=== PATIENT | female | born 1960 | race Caucasian/White ===

== ENCOUNTER 2021-12-02 17:30 | Inpatient (IN) | payer OTHER, SELFPAY ==
--- NOTE | ~2021-12-02 | CT_ITS ---
EXAMINATION: CT HEAD WITHOUT CONTRAST CLINICAL INFORMATION: Acute mental status change COMPARISON: None. TECHNIQUE: Contiguous axial imaging was performed from the skull base to vertex without intravenous contrast. This CT examination was performed using dose optimization techniques as appropriate, variously including the following: * Automated exposure control * Adjustment of mA and/or kV according to patient size (this includes techniques or standardized protocols for targeted exams where dose is matched to indication/reason for exam; i.e. extremities or head) Use of iterative reconstruction technique DLP: 616 mGy-cm. FINDINGS: There is no evidence of acute intracranial hemorrhage or territorial infarction. No abnormal mass effect or midline shift is seen. Bond to white matter differentiation is well preserved. No extra-axial fluid collections are identified. No hydrocephalus. Proportional prominence of the ventricles and sulcal spaces is consistent with mild volume loss. Patchy periventricular and deep white matter hypoattenuation is consistent with mild small vessel ischemic changes. The osseous structures and soft tissues are normal. The mastoid air cells and visualized portions of the paranasal sinuses are well aerated. CT/CT head/brain wo con IMPRESSION: No acute intracranial pathology. Mild volume loss with small vessel ischemic change.
[2021-12-02 18:45] VITALS: BP 158/85; PULSE 94; RESP 16; TEMP 36.6; O2SAT 99; BMI 31.1
[2021-12-02 19:45] LABS: MANUAL DIFF FLAG NO
[2021-12-02 19:47] LABS: Basophils Percent Auto 0.2 % (0-2); Eosinophils Absolute Auto 0.1 X10*3/uL (0.0-0.4); Eosinophils Percent Auto 1.2 % (0-4); Hematocrit 38.6 % (37.0-47.0); Hemoglobin 12.5 g/dl (12.0-16.0); Imm Gran Abs Auto 0.04 X10*3/uL (0.00-0.03); Imm Gran Pct Auto 0.4 % (0.0-0.4); Lymphocytes Absolute Auto 3.5 X10*3/uL (1.2-4.9); Lymphocytes Percent Auto 36.3 % (20-40); Mean Corpuscular HGB Conc 32.4 g/dl (31.0-35.0); Mean Corpuscular Hemoglobin 27.2 pg (27.0-33.0); Mean Corpuscular Volume 83.9 fL (80.0-98.0); Mean Platelet Volume 9.9 fL (9.4-12.3); Monocytes Absolute Auto 0.7 X10*3/uL (0.1-1.2); Monocytes Percent Auto 7.4 % (2-11); Neutrophils Absolute Auto 5.2 x10*3/uL (2.0-8.3); Neutrophils Percent Auto 54.5 % (45-73); Platelet Count 321 X10*3/uL (160-400); Red Cell Distribution Width 15.5 % (11.0-16.0); White Blood Count 9.5 X10*3/uL (4.8-10.8)
[2021-12-02 19:48] LABS: Appearance Urine CLEAR; Color Urine STRAW; Glucose Urine UA >=1000 MG/DL (NEG); Leukocyte Esterase Urine NEG (NEG); Nitrite Urine NEG (NEG); Specific Gravity - Urine <= 1.005 (1.005-1.025); Urine Blood NEG (NEG); Urine Ketones NEG (NEG); Urine Protein NEG (NEG-TRACE)
[2021-12-02 20:01] LABS: RBC Urine 0 /HPF (0); Squamous Epithelial Cell Urine TRACE /LPF
[2021-12-02 20:08] LABS: Anion Gap 15 (12-20); Blood Urea Nitrogen 9 mg/dL (9-16); Calcium 9.1 mg/dL (8.4-10.2); Carbon Dioxide 25 mmol/L (22-29); Chloride 92 mmol/L (96-108); Creatinine Clr Calc Pharmacy 71.1; Estimated Glomerular Filt Rate > 60; Glucose Random 321 mg/dL (60-115); Potassium 4.3 mmol/L (3.3-5.1); Sodium 128 mmol/L (135-145)
--- NOTE | 2021-12-02 21:39 | ECG_ITS ---
Test Reason : ALTERED MENTAL STATUS Blood Pressure : / mmHG Vent. Rate : 085 BPM Atrial Rate : 085 BPM P-R Int : 148 ms QRS Dur : 088 ms QT Int : 386 ms P-R-T Axes : 041 -01 041 degrees QTc Int : 459 ms Normal sinus rhythm Minimal voltage criteria for LVH, may be normal variant ( R in aVL ) Septal infarct , age undetermined Abnormal ECG No previous ECGs available Referred By: Donna Miller Electronically Signed By:ERIC CARDOZO
--- NOTE | 2021-12-02 21:40 | ED_ITS ---
HPI - Altered Mental Status General Chief Complaint: Altered Mental Status <Donna Miller MD - Last Filed: 12/03/21 03:52> Stated Complaint: High blood pressure/AMS <Donna Miller MD - Last Filed: 12/03/21 03:52> Time Seen by Provider: 12/02/21 21:37 <Donna Miller MD - Last Filed: 12/03/21 03:52> Source: patient, family (Niece) and translator interpreter <Donna Miller MD - Last Filed: 12/03/21 03:52> Mode of arrival: ambulatory <Donna Miller MD - Last Filed: 12/03/21 03:52> Limitations: no limitations <Donna Miller MD - Last Filed: 12/03/21 03:52> History of Present Illness HPI narrative: 61 years old female came in with her family for evaluation of a change me ntal status. 61-year-old female with history of hypertension family stated that patient got high blood pressure at home causing patient not to sleep at night and having insomnia, patient also according to the family has been having delusional thoughts thinking that her and her son were murdered (just lost her 6 months ago required psych hospitalization in [place]) reportedly by the family patient been having visual hallucination. Patient otherwise declined headache, no neck pain, no blurry vision, no photophobia, no chest pain, no shortness of breath, no abdominal pain, normal bowel movement, normal urination without symptoms of infection. <Donna Miller MD - Last Filed: 12/03/21 03:52> Related Data Home Medications: Home Medications Medication Instructions Recorded Confirmed Gvoke HypoPen 2-Pack 12/03/21 True Metrix Glucose Meter 12/03/21 12/03/21 True Metrix Pro Test Strip 12/03/21 12/03/21 acyclovir 400 mg tablet 400 mg TID 12/03/21 12/03/21 amlodipine 5 mg tablet 5 mg DAILY 12/03/21 12/03/21 aripiprazole 15 mg tablet 15 mg PO BEDTIME 12/03/21 12/03/21 atorvastatin 40 mg tablet 40 mg PO BEDTIME 12/03/21 12/03/21 buspirone 10 mg tablet 15 mg PO BID 12/03/21 12/03/21 divalproex 500 mg tablet,delayed 1,000 mg PO BEDTIME 12/03/21 12/03/21 release insulin glargine 100 unit/mL (3 48 unit SUBCUT DAILY 12/03/21 12/03/21 mL) subcutaneous pen (Lantus Solostar U-100 Insulin) lancets 30 gauge (TRUEplus Lancets) 12/03/21 12/03/21 lisinopril 20 mg tablet 20 mg PO DAILY 12/03/21 12/03/21 omeprazole 20 mg capsule,delayed 20 mg PO BID 12/03/21 12/03/21 release pen needle, diabetic 31 gauge x 12/03/21 12/03/21 5/16 (BD Ultra-Fine Short Pen Needle) trazodone 50 mg tablet 50 mg PO BEDTIME 12/03/21 12/03/21 <Donna Miller MD - Last Filed: 12/03/21 03:52> Allergies/Adverse Reactions: Allergies Allergy/AdvReac Type Severity Reaction Status Date / Time Penicillins Allergy Unknown Verified 12/02/21 19:30 <Donna Miller MD - Last Filed: 12/03/21 03:52> Review of Systems Review of Systems: All other systems are reviewed and are negative Constitutional: Reports as per HPI and Reports no additional constitutional complaints Eyes: Reports as per HPI and Reports no additional eye complaints Reports system reviewed and no additional complaints, except as documented Cardiovascular: Reports as per HPI and Reports no additional cardiovascular complaints Respiratory: Reports as per HPI and Reports no additional respiratory complaints Gastrointestinal: Reports as per HPI and Reports no additional gastrointestinal complaints Genitourinary: Reports no additional female genitourinary complaints Musculoskeletal: Reports no additional musculoskeletal complaints Skin/Breast: Reports system reviewed and no additional complaints, except as docu Psychiatric: Reports no additional psychiatric complaints Endocrine: Reports no additional endocrine complaints Hematologic/Lymphatic: Reports no additional hematologic/lymphatic complaints Allergic/Immunologic: Reports no additional allergic/immunologic complaints Reports system reviewed and no additional complaints, except as documented and Reports Abnormal speech present <Donna Miller MD - Last Filed: 12/03/21 03:52> [facility] Past Medical History Medical History: Medical History Depression Diabetes GERD (gastroesophageal reflux disease) HTN (hypertension) Hyperlipemia <Donna Miller MD - Last Filed: 12/03/21 03:52> Social History Social History: Social History Advance Directives: No Advance Directives Information Provided: No <Donna Miller MD - Last Filed: 12/03/21 03:52> Physical Exam ED Vital Signs: Vital Signs - 24 hr 12/02/21 18:45 12/03/21 00:16 12/03/21 07:34 Temperature 98 F 97.8 F Pulse Rate 94 81 87 Respiratory Rate 16 14 14 Blood Pressure 158/85 H 150/74 H 164/85 H Pulse Oximetry 99 98 100 12/03/21 12:45 12/03/21 14:30 Temperature 98.3 F 98.3 F Pulse Rate 83 88 Respiratory Rate 18 14 Blood Pressure 142/79 H 155/73 H Pulse Oximetry 96 97 BMI result Body Mass Index 31.1 Vital signs have been reviewed as appeared to be correct. Blood pressure elevated. Heart rate normal. Respiration rate normal. Temperature normal. Oxygen saturation normal. <Donna Miller MD - Last Filed: 12/03/21 03:52> Vital Signs - 24 hr 12/02/21 18:45 12/03/21 00:16 12/03/21 07:34 Temperature 98 F 97.8 F Pulse Rate 94 81 87 Respiratory Rate 16 14 14 Blood Pressure 158/85 H 150/74 H 164/85 H Pulse Oximetry 99 98 100 12/03/21 12:45 12/03/21 14:30 Temperature 98.3 F 98.3 F Pulse Rate 83 88 Respiratory Rate 18 14 Blood Pressure 142/79 H 155/73 H Pulse Oximetry 96 97 BMI result Body Mass Index 31.1 <Jessica Bhandari DO - Last Filed: 12/03/21 08:34> Vital Signs - 24 hr 12/02/21 18:45 12/03/21 00:16 12/03/21 07:34 Temperature 98 F 97.8 F Pulse Rate 94 81 87 Respiratory Rate 16 14 14 Blood Pressure 158/85 H 150/74 H 164/85 H Pulse Oximetry 99 98 100 12/03/21 12:45 12/03/21 14:30 Temperature 98.3 F 98.3 F Pulse Rate 83 88 Respiratory Rate 18 14 Blood Pressure 142/79 H 155/73 H Pulse Oximetry 96 97 BMI result Body Mass Index 31.1 <SUZE Yanez - Last Filed: 12/03/21 16:25> Appearance: Alert. Oriented X3. No acute distress. Head: Normal external exam. Normocephalic. Atraumatic. No Mayer signs noted. No raccoon eyes noted Eyes: PERRLA. EOMI. Conjunctiva and sclera normal. Eyelids normal. ENT: TM's Normal. Pharynx normal. Uvula midline. Moist mucous membranes. No trismus noted. No drooling noted. No muffled voice noted. Neck: Normal inspection. Neck supple. FROM. No adenopathy. Thyroid Normal. No meningeal signs. No neck mass noted. CVS: Normal heart rate and rhythm. Heart sound normal. No murmurs noted. Pulses normal throughout. Respiratory: No respiratory distress. Painless inspiration. Breath sounds normal. No wheezes/rales/rhonchi noted. Chest nontender. No accessory muscle usage noted or decreased air movement noted. Abdomen: Soft and nontender. Bowel sounds normal in all 4 quadrants. No distention noted. No organomegaly noted. No visible injury noted. Back: No CVA tenderness. Full range of motion noted. Skin: Skin warm and dry. Normal skin color. Normal skin turgor. No rashes/lesions/lacerations noted. Extremities: No lower extremity edema. Extremities exhibit normal range of motion. Extremities nontender. Neuro: Oriented X 3. Cranial nerve exam: II-XII are grossly intact No motor deficit. No sensory deficit. Reflexes normal. <Donna Miller MD - Last Filed: 12/03/21 03:52> Course Course Course Narrative: Assessment and plan. 61-year-old female brought in by her family for insomnia, elevated blood pressur e, and becoming delusional with visual/auditory hallucination, patient initially found to be hyponatremic which improved after a L of fluids, labs are unremarkable. Blood pressure is 150/[address] is unremarkable. Will get [facility] consultation for further evaluation. <Donna Miller MD - Last Filed: 12/03/21 03:52> Reevaluation(s) Reevaluation #1: Physician observation started at 03:00 . Patient placed in physician observation because the patient needed more time for BHN evaluation and the need for placement patient's vital sign were stable, patient is alert and oriented , neuro exam unchanged, unremarkable rest of physical exam. <Donna Miller MD - Last Filed: 12/03/21 03:52> Physician observation started at 03:00 . Patient placed in physician observation because the patient needed more time for BHN evaluation and the need for placement patient's vital sign were stable, patient is alert and oriented , neuro exam unchanged, unremarkable rest of physical exam. addendum 833am: Physician observation continued. previously medically cleared VS stable. no acute events reported. pending BHN evaluation. Patient resting comfortably, NAD, lungs clear, CV RRR, Abd nontender, Neuro intact. <Jessica Bhandari DO - Last Filed: 12/03/21 08:34> Time: 03:00 <Donna Miller MD - Last Filed: 12/03/21 03:52> Reevaluation #2: Addendum: 1624--patient was evaluated by CARE team is now an inpatient bed search <SUZE Yanez - Last Filed: 12/03/21 16:25> Time: 16:24 <SUZE Yanez - Last Filed: 12/03/21 16:25> MDM - Altered Mental Status Lab Data Attestation: I reviewed the patient's lab results. <Donna Miller MD - Last Filed: 12/03/21 03:52> Result diagrams: : 12/02/21 19:35 12/03/21 00:31 <Donna Miller MD - Last Filed: 12/03/21 03:52> Labs: Lab Results 12/02/21 12/02/21 12/02/21 Range/Units 19:35 19:35 19:35 WBC 9.5 (4.8-10.8) X10*3/uL RBC 4.60 (4.20-5.50) X10*6/uL Hgb 12.5 (12.0-16.0) g/dl Hct 38.6 (37.0-47.0) % MCV 83.9 (80.0-98.0) fL MCH 27.2 (27.0-33.0) pg MCHC 32.4 (31.0-35.0) g/dl RDW 15.5 (11.0-16.0) % Plt Count 321 (160-400) X10*3/uL MPV 9.9 (9.4-12.3) fL Immature Gran % (Auto) 0.4 (0.0-0.4) % Neut % (Auto) 54.5 (45-73) % Lymph % (Auto) 36.3 (20-40) % [place] % (Auto) 7.4 (2-11) % Eos % (Auto) 1.2 (0-4) % Baso % (Auto) 0.2 (0-2) % Lymph # (Auto) 3.5 (1.2-4.9) X10*3/uL [place] # (Auto) 0.7 (0.1-1.2) X10*3/uL Eos # (Auto) 0.1 (0.0-0.4) X10*3/uL Baso # (Auto) 0.0 (0.0-0.2) X10*3/uL Abs Immat Gran (auto) 0.04 H (0.00-0.03) X10*3/uL Absolute Neuts (auto) 5.2 (2.0-8.3) x10*3/uL Absolute Nucleated RBC 0.000 (0.0-0.012) X10*3/uL Nucleated RBC % (auto) 0.0 (0.0-0.2) /100WBC Sodium 128 L (135-145) mmol/L Potassium 4.3 (3.3-5.1) mmol/L Chloride 92 L (96-108) mmol/L Carbon Dioxide 25 (22-29) mmol/L Anion Gap 15 (12-20) BUN 9 (9-16) mg/dL Creatinine 0.85 (0.5-1.4) mg/dL Estim Creat Clear Calc 71.1 Estimated GFR > 60 POC Glucose (60-115) mg/dL Random Glucose 321 H (60-115) mg/dL Calcium 9.1 (8.4-10.2) mg/dL Total Bilirubin 0.3 (0.0-1.0) mg/dL Direct Bilirubin 0.2 (0.0-0.5) mg/dL AST 7 (5-31) U/L ALT 8 (0-31) U/L Alkaline Phosphatase 84 (39-117) U/L Total Protein 6.8 (6.5-8.0) g/dL Albumin 4.0 (3.5-5.0) g/dL Lipase 33 (8-78) U/L Urine Color STRAW Urine Appearance CLEAR Urine pH 6.0 (5.0-8.0) Ur Specific [place] <= 1.005 (1.005-1.025) Urine Protein NEG (NEG-TRACE) MG/DL Urine Glucose (UA) >=1000 H (NEG) MG/DL Urine Ketones NEG (NEG) MG/DL Urine Blood NEG (NEG) Urine Nitrite NEG (NEG) Ur Leukocyte Esterase NEG (NEG) Urine RBC 0 (0) /HPF Urine WBC 1-4 (0-4) /HPF Ur Squamous Epith Cells TRACE /LPF Urine Bacteria NONE /LPF Ur Random Sodium mmol/L Ur Random Potassium mmol/L Ur Random Chloride mmol/L 12/03/21 12/03/21 12/03/21 Range/Units 00:31 01:02 01:02 WBC (4.8-10.8) X10*3/uL RBC (4.20-5.50) X10*6/uL Hgb (12.0-16.0) g/dl Hct (37.0-47.0) % MCV (80.0-98.0) fL MCH (27.0-33.0) pg MCHC (31.0-35.0) g/dl RDW (11.0-16.0) % Plt Count (160-400) X10*3/uL MPV (9.4-12.3) fL Immature Gran % (Auto) (0.0-0.4) % Neut % (Auto) (45-73) % Lymph % (Auto) (20-40) % [place] % (Auto) (2-11) % Eos % (Auto) (0-4) % Baso % (Auto) (0-2) % Lymph # (Auto) (1.2-4.9) X10*3/uL [place] # (Auto) (0.1-1.2) X10*3/uL Eos # (Auto) (0.0-0.4) X10*3/uL Baso # (Auto) (0.0-0.2) X10*3/uL Abs Immat Gran (auto) (0.00-0.03) X10*3/uL Absolute Neuts (auto) (2.0-8.3) x10*3/uL Absolute Nucleated RBC (0.0-0.012) X10*3/uL Nucleated RBC % (auto) (0.0-0.2) /100WBC Sodium 131 L (135-145) mmol/L Potassium 4.1 (3.3-5.1) mmol/L Chloride 94 L (96-108) mmol/L Carbon Dioxide 29 (22-29) mmol/L Anion Gap 12 (12-20) BUN 9 (9-16) mg/dL Creatinine 0.74 (0.5-1.4) mg/dL Estim Creat Clear Calc 81.8 Estimated GFR > 60 POC Glucose (60-115) mg/dL Random Glucose 147 H (60-115) mg/dL Calcium 9.1 (8.4-10.2) mg/dL Total Bilirubin (0.0-1.0) mg/dL Direct Bilirubin (0.0-0.5) mg/dL AST (5-31) U/L ALT (0-31) U/L Alkaline Phosphatase (39-117) U/L Total Protein (6.5-8.0) g/dL Albumin (3.5-5.0) g/dL Lipase (8-78) U/L Urine Color YELLOW Urine Appearance CLEAR Urine pH 7.0 (5.0-8.0) Ur Specific [place] <= 1.005 (1.005-1.025) Urine Protein NEG (NEG-TRACE) MG/DL Urine Glucose (UA) 100 H (NEG) MG/DL Urine Ketones NEG (NEG) MG/DL Urine Blood NEG (NEG) Urine Nitrite NEG (NEG) Ur Leukocyte Esterase NEG (NEG) Urine RBC (0) /HPF Urine WBC (0-4) /HPF Ur Squamous Epith Cells /LPF Urine Bacteria /LPF Ur Random Sodium < 20.0 mmol/L Ur Random Potassium 7.0 mmol/L Ur Random Chloride < 20.0 mmol/L 12/03/21 Range/Units 14:25 WBC (4.8-10.8) X10*3/uL RBC (4.20-5.50) X10*6/uL Hgb (12.0-16.0) g/dl Hct (37.0-47.0) % MCV (80.0-98.0) fL MCH (27.0-33.0) pg MCHC (31.0-35.0) g/dl RDW (11.0-16.0) % Plt Count (160-400) X10*3/uL MPV (9.4-12.3) fL Immature Gran % (Auto) (0.0-0.4) % Neut % (Auto) (45-73) % Lymph % (Auto) (20-40) % [place] % (Auto) (2-11) % Eos % (Auto) (0-4) % Baso % (Auto) (0-2) % Lymph # (Auto) (1.2-4.9) X10*3/uL [place] # (Auto) (0.1-1.2) X10*3/uL Eos # (Auto) (0.0-0.4) X10*3/uL Baso # (Auto) (0.0-0.2) X10*3/uL Abs Immat Gran (auto) (0.00-0.03) X10*3/uL Absolute Neuts (auto) (2.0-8.3) x10*3/uL Absolute Nucleated RBC (0.0-0.012) X10*3/uL Nucleated RBC % (auto) (0.0-0.2) /100WBC Sodium (135-145) mmol/L Potassium (3.3-5.1) mmol/L Chloride (96-108) mmol/L Carbon Dioxide (22-29) mmol/L Anion Gap (12-20) BUN (9-16) mg/dL Creatinine (0.5-1.4) mg/dL Estim Creat Clear Calc Estimated GFR POC Glucose 126 H (60-115) mg/dL Random Glucose (60-115) mg/dL Calcium (8.4-10.2) mg/dL Total Bilirubin (0.0-1.0) mg/dL Direct Bilirubin (0.0-0.5) mg/dL AST (5-31) U/L ALT (0-31) U/L Alkaline Phosphatase (39-117) U/L Total Protein (6.5-8.0) g/dL Albumin (3.5-5.0) g/dL Lipase (8-78) U/L Urine Color Urine Appearance Urine pH (5.0-8.0) Ur Specific [place] (1.005-1.025) Urine Protein (NEG-TRACE) MG/DL Urine Glucose (UA) (NEG) MG/DL Urine Ketones (NEG) MG/DL Urine Blood (NEG) Urine Nitrite (NEG) Ur Leukocyte Esterase (NEG) Urine RBC (0) /HPF Urine WBC (0-4) /HPF Ur Squamous Epith Cells /LPF Urine Bacteria /LPF Ur Random Sodium mmol/L Ur Random Potassium mmol/L Ur Random Chloride mmol/L <Donna Miller MD - Last Filed: 12/03/21 03:52> Lab Results 12/02/21 12/02/21 12/02/21 Range/Units 19:35 19:35 19:35 WBC 9.5 (4.8-10.8) X10*3/uL RBC 4.60 (4.20-5.50) X10*6/uL Hgb 12.5 (12.0-16.0) g/dl Hct 38.6 (37.0-47.0) % MCV 83.9 (80.0-98.0) fL MCH 27.2 (27.0-33.0) pg MCHC 32.4 (31.0-35.0) g/dl RDW 15.5 (11.0-16.0) % Plt Count 321 (160-400) X10*3/uL MPV 9.9 (9.4-12.3) fL Immature Gran % (Auto) 0.4 (0.0-0.4) % Neut % (Auto) 54.5 (45-73) % Lymph % (Auto) 36.3 (20-40) % [place] % (Auto) 7.4 (2-11) % Eos % (Auto) 1.2 (0-4) % Baso % (Auto) 0.2 (0-2) % Lymph # (Auto) 3.5 (1.2-4.9) X10*3/uL [place] # (Auto) 0.7 (0.1-1.2) X10*3/uL Eos # (Auto) 0.1 (0.0-0.4) X10*3/uL Baso # (Auto) 0.0 (0.0-0.2) X10*3/uL Abs Immat Gran (auto) 0.04 H (0.00-0.03) X10*3/uL Absolute Neuts (auto) 5.2 (2.0-8.3) x10*3/uL Absolute Nucleated RBC 0.000 (0.0-0.012) X10*3/uL Nucleated RBC % (auto) 0.0 (0.0-0.2) /100WBC Sodium 128 L (135-145) mmol/L Potassium 4.3 (3.3-5.1) mmol/L Chloride 92 L (96-108) mmol/L Carbon Dioxide 25 (22-29) mmol/L Anion Gap 15 (12-20) BUN 9 (9-16) mg/dL Creatinine 0.85 (0.5-1.4) mg/dL Estim Creat Clear Calc 71.1 Estimated GFR > 60 POC Glucose (60-115) mg/dL Random Glucose 321 H (60-115) mg/dL Calcium 9.1 (8.4-10.2) mg/dL Total Bilirubin 0.3 (0.0-1.0) mg/dL Direct Bilirubin 0.2 (0.0-0.5) mg/dL AST 7 (5-31) U/L ALT 8 (0-31) U/L Alkaline Phosphatase 84 (39-117) U/L Total Protein 6.8 (6.5-8.0) g/dL Albumin 4.0 (3.5-5.0) g/dL Lipase 33 (8-78) U/L Urine Color STRAW Urine Appearance CLEAR Urine pH 6.0 (5.0-8.0) Ur Specific [place] <= 1.005 (1.005-1.025) Urine Protein NEG (NEG-TRACE) MG/DL Urine Glucose (UA) >=1000 H (NEG) MG/DL Urine Ketones NEG (NEG) MG/DL Urine Blood NEG (NEG) Urine Nitrite NEG (NEG) Ur Leukocyte Esterase NEG (NEG) Urine RBC 0 (0) /HPF Urine WBC 1-4 (0-4) /HPF Ur Squamous Epith Cells TRACE /LPF Urine Bacteria NONE /LPF Ur Random Sodium mmol/L Ur Random Potassium mmol/L Ur Random Chloride mmol/L 12/03/21 12/03/21 12/03/21 Range/Units 00:31 01:02 01:02 WBC (4.8-10.8) X10*3/uL RBC (4.20-5.50) X10*6/uL Hgb (12.0-16.0) g/dl Hct (37.0-47.0) % MCV (80.0-98.0) fL MCH (27.0-33.0) pg MCHC (31.0-35.0) g/dl RDW (11.0-16.0) % Plt Count (160-400) X10*3/uL MPV (9.4-12.3) fL Immature Gran % (Auto) (0.0-0.4) % Neut % (Auto) (45-73) % Lymph % (Auto) (20-40) % [place] % (Auto) (2-11) % Eos % (Auto) (0-4) % Baso % (Auto) (0-2) % Lymph # (Auto) (1.2-4.9) X10*3/uL [place] # (Auto) (0.1-1.2) X10*3/uL Eos # (Auto) (0.0-0.4) X10*3/uL Baso # (Auto) (0.0-0.2) X10*3/uL Abs Immat Gran (auto) (0.00-0.03) X10*3/uL Absolute Neuts (auto) (2.0-8.3) x10*3/uL Absolute Nucleated RBC (0.0-0.012) X10*3/uL Nucleated RBC % (auto) (0.0-0.2) /100WBC Sodium 131 L (135-145) mmol/L Potassium 4.1 (3.3-5.1) mmol/L Chloride 94 L (96-108) mmol/L Carbon Dioxide 29 (22-29) mmol/L Anion Gap 12 (12-20) BUN 9 (9-16) mg/dL Creatinine 0.74 (0.5-1.4) mg/dL Estim Creat Clear Calc 81.8 Estimated GFR > 60 POC Glucose (60-115) mg/dL Random Glucose 147 H (60-115) mg/dL Calcium 9.1 (8.4-10.2) mg/dL Total Bilirubin (0.0-1.0) mg/dL Direct Bilirubin (0.0-0.5) mg/dL AST (5-31) U/L ALT (0-31) U/L Alkaline Phosphatase (39-117) U/L Total Protein (6.5-8.0) g/dL Albumin (3.5-5.0) g/dL Lipase (8-78) U/L Urine Color YELLOW Urine Appearance CLEAR Urine pH 7.0 (5.0-8.0) Ur Specific [place] <= 1.005 (1.005-1.025) Urine Protein NEG (NEG-TRACE) MG/DL Urine Glucose (UA) 100 H (NEG) MG/DL Urine Ketones NEG (NEG) MG/DL Urine Blood NEG (NEG) Urine Nitrite NEG (NEG) Ur Leukocyte Esterase NEG (NEG) Urine RBC (0) /HPF Urine WBC (0-4) /HPF Ur Squamous Epith Cells /LPF Urine Bacteria /LPF Ur Random Sodium < 20.0 mmol/L Ur Random Potassium 7.0 mmol/L Ur Random Chloride < 20.0 mmol/L 03/15/ Range/Units 14:25 WBC (4.8-10.8) X10*3/uL RBC (4.20-5.50) X10*6/uL Hgb (12.0-16.0) g/dl Hct (37.0-47.0) % MCV (80.0-98.0) fL MCH (27.0-33.0) pg MCHC (31.0-35.0) g/dl RDW (11.0-16.0) % Plt Count (160-400) X10*3/uL MPV (9.4-12.3) fL Immature Gran % (Auto) (0.0-0.4) % Neut % (Auto) (45-73) % Lymph % (Auto) (20-40) % [place] % (Auto) (2-11) % Eos % (Auto) (0-4) % Baso % (Auto) (0-2) % Lymph # (Auto) (1.2-4.9) X10*3/uL [place] # (Auto) (0.1-1.2) X10*3/uL Eos # (Auto) (0.0-0.4) X10*3/uL Baso # (Auto) (0.0-0.2) X10*3/uL Abs Immat Gran (auto) (0.00-0.03) X10*3/uL Absolute Neuts (auto) (2.0-8.3) x10*3/uL Absolute Nucleated RBC (0.0-0.012) X10*3/uL Nucleated RBC % (auto) (0.0-0.2) /100WBC Sodium (135-145) mmol/L Potassium (3.3-5.1) mmol/L Chloride (96-108) mmol/L Carbon Dioxide (22-29) mmol/L Anion Gap (12-20) BUN (9-16) mg/dL Creatinine (0.5-1.4) mg/dL Estim Creat Clear Calc Estimated GFR POC Glucose 126 H (60-115) mg/dL Random Glucose (60-115) mg/dL Calcium (8.4-10.2) mg/dL Total Bilirubin (0.0-1.0) mg/dL Direct Bilirubin (0.0-0.5) mg/dL AST (5-31) U/L ALT (0-31) U/L Alkaline Phosphatase (39-117) U/L Total Protein (6.5-8.0) g/dL Albumin (3.5-5.0) g/dL Lipase (8-78) U/L Urine Color Urine Appearance Urine pH (5.0-8.0) Ur Specific [place] (1.005-1.025) Urine Protein (NEG-TRACE) MG/DL Urine Glucose (UA) (NEG) MG/DL Urine Ketones (NEG) MG/DL Urine Blood (NEG) Urine Nitrite (NEG) Ur Leukocyte Esterase (NEG) Urine RBC (0) /HPF Urine WBC (0-4) /HPF Ur Squamous Epith Cells /LPF Urine Bacteria /LPF Ur Random Sodium mmol/L Ur Random Potassium mmol/L Ur Random Chloride mmol/L <Jessica Bhandari, DO - Last Filed: 12/03/21 08:34> Lab Results 12/02/21 12/02/21 12/02/21 Range/Units 19:35 19:35 19:35 WBC 9.5 (4.8-10.8) X10*3/uL RBC 4.60 (4.20-5.50) X10*6/uL Hgb 12.5 (12.0-16.0) g/dl Hct 38.6 (37.0-47.0) % MCV 83.9 (80.0-98.0) fL MCH 27.2 (27.0-33.0) pg MCHC 32.4 (31.0-35.0) g/dl RDW 15.5 (11.0-16.0) % Plt Count 321 (160-400) X10*3/uL MPV 9.9 (9.4-12.3) fL Immature Gran % (Auto) 0.4 (0.0-0.4) % Neut % (Auto) 54.5 (45-73) % Lymph % (Auto) 36.3 (20-40) % [place] % (Auto) 7.4 (2-11) % Eos % (Auto) 1.2 (0-4) % Baso % (Auto) 0.2 (0-2) % Lymph # (Auto) 3.5 (1.2-4.9) X10*3/uL [place] # (Auto) 0.7 (0.1-1.2) X10*3/uL Eos # (Auto) 0.1 (0.0-0.4) X10*3/uL Baso # (Auto) 0.0 (0.0-0.2) X10*3/uL Abs Immat Gran (auto) 0.04 H (0.00-0.03) X10*3/uL Absolute Neuts (auto) 5.2 (2.0-8.3) x10*3/uL Absolute Nucleated RBC 0.000 (0.0-0.012) X10*3/uL Nucleated RBC % (auto) 0.0 (0.0-0.2) /100WBC Sodium 128 L (135-145) mmol/L Potassium 4.3 (3.3-5.1) mmol/L Chloride 92 L (96-108) mmol/L Carbon Dioxide 25 (22-29) mmol/L Anion Gap 15 (12-20) BUN 9 (9-16) mg/dL Creatinine 0.85 (0.5-1.4) mg/dL Estim Creat Clear Calc 71.1 Estimated GFR > 60 POC Glucose (60-115) mg/dL Random Glucose 321 H (60-115) mg/dL Calcium 9.1 (8.4-10.2) mg/dL Total Bilirubin 0.3 (0.0-1.0) mg/dL Direct Bilirubin 0.2 (0.0-0.5) mg/dL AST 7 (5-31) U/L ALT 8 (0-31) U/L Alkaline Phosphatase 84 (39-117) U/L Total Protein 6.8 (6.5-8.0) g/dL Albumin 4.0 (3.5-5.0) g/dL Lipase 33 (8-78) U/L Urine Color STRAW Urine Appearance CLEAR Urine pH 6.0 (5.0-8.0) Ur Specific [place] <= 1.005 (1.005-1.025) Urine Protein NEG (NEG-TRACE) MG/DL Urine Glucose (UA) >=1000 H (NEG) MG/DL Urine Ketones NEG (NEG) MG/DL Urine Blood NEG (NEG) Urine Nitrite NEG (NEG) Ur Leukocyte Esterase NEG (NEG) Urine RBC 0 (0) /HPF Urine WBC 1-4 (0-4) /HPF Ur Squamous Epith Cells TRACE /LPF Urine Bacteria NONE /LPF Ur Random Sodium mmol/L Ur Random Potassium mmol/L Ur Random Chloride mmol/L 12/03/21 12/03/21 12/03/21 Range/Units 00:31 01:02 01:02 WBC (4.8-10.8) X10*3/uL RBC (4.20-5.50) X10*6/uL Hgb (12.0-16.0) g/dl Hct (37.0-47.0) % MCV (80.0-98.0) fL MCH (27.0-33.0) pg MCHC (31.0-35.0) g/dl RDW (11.0-16.0) % Plt Count (160-400) X10*3/uL MPV (9.4-12.3) fL Immature Gran % (Auto) (0.0-0.4) % Neut % (Auto) (45-73) % Lymph % (Auto) (20-40) % [place] % (Auto) (2-11) % Eos % (Auto) (0-4) % Baso % (Auto) (0-2) % Lymph # (Auto) (1.2-4.9) X10*3/uL [place] # (Auto) (0.1-1.2) X10*3/uL Eos # (Auto) (0.0-0.4) X10*3/uL Baso # (Auto) (0.0-0.2) X10*3/uL Abs Immat Gran (auto) (0.00-0.03) X10*3/uL Absolute Neuts (auto) (2.0-8.3) x10*3/uL Absolute Nucleated RBC (0.0-0.012) X10*3/uL Nucleated RBC % (auto) (0.0-0.2) /100WBC Sodium 131 L (135-145) mmol/L Potassium 4.1 (3.3-5.1) mmol/L Chloride 94 L (96-108) mmol/L Carbon Dioxide 29 (22-29) mmol/L Anion Gap 12 (12-20) BUN 9 (9-16) mg/dL Creatinine 0.74 (0.5-1.4) mg/dL Estim Creat Clear Calc 81.8 Estimated GFR > 60 POC Glucose (60-115) mg/dL Random Glucose 147 H (60-115) mg/dL Calcium 9.1 (8.4-10.2) mg/dL Total Bilirubin (0.0-1.0) mg/dL Direct Bilirubin (0.0-0.5) mg/dL AST (5-31) U/L ALT (0-31) U/L Alkaline Phosphatase (39-117) U/L Total Protein (6.5-8.0) g/dL Albumin (3.5-5.0) g/dL Lipase (8-78) U/L Urine Color YELLOW Urine Appearance CLEAR Urine pH 7.0 (5.0-8.0) Ur Specific [place] <= 1.005 (1.005-1.025) Urine Protein NEG (NEG-TRACE) MG/DL Urine Glucose (UA) 100 H (NEG) MG/DL Urine Ketones NEG (NEG) MG/DL Urine Blood NEG (NEG) Urine Nitrite NEG (NEG) Ur Leukocyte Esterase NEG (NEG) Urine RBC (0) /HPF Urine WBC (0-4) /HPF Ur Squamous Epith Cells /LPF Urine Bacteria /LPF Ur Random Sodium < 20.0 mmol/L Ur Random Potassium 7.0 mmol/L Ur Random Chloride < 20.0 mmol/L 12/03/21 Range/Units 14:25 WBC (4.8-10.8) X10*3/uL RBC (4.20-5.50) X10*6/uL Hgb (12.0-16.0) g/dl Hct (37.0-47.0) % MCV (80.0-98.0) fL MCH (27.0-33.0) pg MCHC (31.0-35.0) g/dl RDW (11.0-16.0) % Plt Count (160-400) X10*3/uL MPV (9.4-12.3) fL Immature Gran % (Auto) (0.0-0.4) % Neut % (Auto) (45-73) % Lymph % (Auto) (20-40) % [place] % (Auto) (2-11) % Eos % (Auto) (0-4) % Baso % (Auto) (0-2) % Lymph # (Auto) (1.2-4.9) X10*3/uL [place] # (Auto) (0.1-1.2) X10*3/uL Eos # (Auto) (0.0-0.4) X10*3/uL Baso # (Auto) (0.0-0.2) X10*3/uL Abs Immat Gran (auto) (0.00-0.03) X10*3/uL Absolute Neuts (auto) (2.0-8.3) x10*3/uL Absolute Nucleated RBC (0.0-0.012) X10*3/uL Nucleated RBC % (auto) (0.0-0.2) /100WBC Sodium (135-145) mmol/L Potassium (3.3-5.1) mmol/L Chloride (96-108) mmol/L Carbon Dioxide (22-29) mmol/L Anion Gap (12-20) BUN (9-16) mg/dL Creatinine (0.5-1.4) mg/dL Estim Creat Clear Calc Estimated GFR POC Glucose 126 H (60-115) mg/dL Random Glucose (60-115) mg/dL Calcium (8.4-10.2) mg/dL Total Bilirubin (0.0-1.0) mg/dL Direct Bilirubin (0.0-0.5) mg/dL AST (5-31) U/L ALT (0-31) U/L Alkaline Phosphatase (39-117) U/L Total Protein (6.5-8.0) g/dL Albumin (3.5-5.0) g/dL Lipase (8-78) U/L Urine Color Urine Appearance Urine pH (5.0-8.0) Ur Specific [place] (1.005-1.025) Urine Protein (NEG-TRACE) MG/DL Urine Glucose (UA) (NEG) MG/DL Urine Ketones (NEG) MG/DL Urine Blood (NEG) Urine Nitrite (NEG) Ur Leukocyte Esterase (NEG) Urine RBC (0) /HPF Urine WBC (0-4) /HPF Ur Squamous Epith Cells /LPF Urine Bacteria /LPF Ur Random Sodium mmol/L Ur Random Potassium mmol/L Ur Random Chloride mmol/L <SUZE Yanez - Last Filed: 12/03/21 16:25> Imaging Data CT scan - head: Attestation: I personally reviewed and interpreted this imaging study as follows: <Donna Miller MD - Last Filed: 12/03/21 03:52> Radiologist's impression: No acute intracranial pathology. Mild volume loss with small vessel ischemic change. <Donna Miller MD - Last Filed: 12/03/21 03:52> ECG Data ECG #1: Attestation: I personally reviewed and interpreted this ECG as follows: <Donna medley MD - Last Filed: 12/03/21 03:52> Interpretation: Normal sinus rhythm at 85 beats per minute, LVH, normal intervals, nonspecific T-wave flattening. <Donna Miller MD - Last Filed: 12/03/21 03:52> Discharge Plan Discharge Clinical Impression: Delirium, Hyponatremia, Hallucination <Donna Miller MD - Last Filed: 12/03/21 03:52> Prescriptions: No Action acyclovir 400 mg Tablet 400 mg TID 0RF lisinopril 20 mg Tablet 20 mg PO DAILY 0RF amlodipine 5 mg Tablet 5 mg DAILY 0RF divalproex 500 mg Tablet,Delayed Release (Dr/Ec) 1,000 mg PO BEDTIME 0RF omeprazole 20 mg Capsule,Delayed Release(Dr/Ec) 20 mg PO BID 0RF (DME) lancets [TRUEplus Lancets] 30 gauge Misc MISCELLANEOUS 0RF (DME) pen needle, diabetic [BD Ultra-Fine Short Pen Needle] 31 gauge x 5/16 Needle MISCELLANEOUS 0RF Lantus Solostar U-100 Insulin 100 unit/mL (3 mL) Insulin Pen 48 unit SUBCUT DAILY 0RF Gvoke HypoPen 2-Pack 0RF Rx Instructions: use when blood sugar is less than 40 (DME) True Metrix Glucose Meter ? 0RF (DME) True Metrix Pro Test Strip 0RF atorvastatin 40 mg Tablet 40 mg PO BEDTIME 0RF trazodone 50 mg Tablet 50 mg PO BEDTIME 0RF buspirone 10 mg Tablet 15 mg PO BID 0RF aripiprazole 15 mg Tablet 15 mg PO BEDTIME 0RF <Donna Miller MD - Last Filed: 12/03/21 03:52>
[2021-12-02 21:56] LABS: Alanine Aminotransferase 8 U/L (0-31); Alkaline Phosphatase 84 U/L (39-117); Aspartate Amino Transferase 7 U/L (5-31); Bilirubin Direct 0.2 mg/dL (0.0-0.5); Bilirubin Total 0.3 mg/dL (0.0-1.0); Lipase 33 U/L (8-78); Total Protein 6.8 g/dL (6.5-8.0)
[2021-12-02] MEDS: 0.9 % Sodium Chloride 1,000 ML 100 ML IVCONT (22:04)
[2021-12-02] MEDS: 0.9 % Sodium Chloride 1,000 ML 999 ML IV (23:48)
[2021-12-03 00:16] VITALS: BP 150/74; PULSE 81; RESP 14; O2SAT 98
[2021-12-03 00:50] LABS: Anion Gap 12 (12-20); Blood Urea Nitrogen 9 mg/dL (9-16); Calcium 9.1 mg/dL (8.4-10.2); Carbon Dioxide 29 mmol/L (22-29); Chloride 94 mmol/L (96-108); Creatinine Clr Calc Pharmacy 81.8; Estimated Glomerular Filt Rate > 60; Glucose Random 147 mg/dL (60-115); Potassium 4.1 mmol/L (3.3-5.1); Sodium 131 mmol/L (135-145)
[2021-12-03 01:10] LABS: Appearance Urine CLEAR; Color Urine YELLOW; Glucose Urine UA 100 MG/DL (NEG); Leukocyte Esterase Urine NEG (NEG); Nitrite Urine NEG (NEG); Specific Gravity - Urine <= 1.005 (1.005-1.025); Urine Blood NEG (NEG); Urine Ketones NEG (NEG); Urine Protein NEG (NEG-TRACE)
[2021-12-03 01:16] LABS: Sodium Urine Random < 20.0 mmol/L
[2021-12-03 01:17] LABS: Chloride Urine Random < 20.0 mmol/L
--- NOTE | 2021-12-03 07:26 | PC.NURSE ---
report taken from klaudia lemus pt here for increased ams per family, awaiting crisis eval. per [facility] crisis referral was recieved this morning roughly 0300. clinician may be out later this morning for eval and care team will be updated with any change in status.
[2021-12-03 07:34] VITALS: BP 164/85; PULSE 87; RESP 14; TEMP 36.6; O2SAT 100
--- NOTE | 2021-12-03 11:04 | PHA.MEDREC ---
Pharmacy Consult ? Medication Reconciliation Pharmacy has completed the medication reconciliation.
[2021-12-03 12:45] VITALS: BP 142/79; PULSE 83; RESP 18; TEMP 36.8; O2SAT 96
[2021-12-03 14:29] LABS: Glucose, Whole Blood 126 mg/dL (60-115)
[2021-12-03 14:30] VITALS: BP 155/73; PULSE 88; RESP 14; TEMP 36.8; O2SAT 97
[2021-12-03] MEDS: Acyclovir 200 MG CAPSULE 400 MG PO ×2 (15:53→22:29)
[2021-12-03] MEDS: Omeprazole 20 MG CAPSULE.DR PO (15:53)
[2021-12-03 19:34] LABS: Anion Gap 13 (12-20); Blood Urea Nitrogen 9 mg/dL (9-16); Calcium 9.4 mg/dL (8.4-10.2); Carbon Dioxide 26 mmol/L (22-29); Chloride 103 mmol/L (96-108); Creatinine Clr Calc Pharmacy 85.3; Estimated Glomerular Filt Rate > 60; Glucose Random 139 mg/dL (60-115); Potassium 4.3 mmol/L (3.3-5.1); Sodium 138 mmol/L (135-145)
[2021-12-03 19:39] LABS: COVID-19 Test Positive (Negative)
[2021-12-03 19:41] LABS: Valproate 38.8 mcg/mL (50.0-100.0)
[2021-12-03 19:48] VITALS: BP 150/84; PULSE 102; RESP 18; TEMP 36.6; O2SAT 97
--- NOTE | 2021-12-03 21:45 | MHC.CARE ---
Pt was initially accepted for Inpt Admission to [facility]. Pts tested +COVID and admission is canceled for 12/03.
[2021-12-03] MEDS: traZODone HCL 50 MG TABLET PO (22:23)
[2021-12-03] MEDS: busPIRone HCl 5 MG TABLET 15 MG PO (22:24)
[2021-12-03] MEDS: Divalproex Sodium 500 MG TABLET.DR 1000 MG PO (22:25)
[2021-12-03] MEDS: Atorvastatin Calcium 40 MG TABLET PO (22:25)
[2021-12-03] MEDS: ARIPiprazole 15 MG TABLET PO (22:26)
[2021-12-04] VITALS (10 sets, daily range): BP systolic 127–174; BP diastolic 59–93; PULSE 80–99; RESP 16–20; TEMP 36.7–37.5; O2SAT 96–100
--- NOTE | 2021-12-04 01:20 | PC.NURSE ---
RN provided daughter at bedside with recliner, pillow and additional blanket for comfort. Pt noted to be resting comfortably in the stretcher without distress noted. Call mcneil in reach, and RN will continue to monitor.
--- NOTE | 2021-12-04 01:46 | PC.NURSE ---
pt be calm and cooperative. pt was able to take evening medications without any issues. pt is covid positive.
--- NOTE | 2021-12-04 04:59 | PC.NURSE ---
Pt continues to rest with family member at bedside without distress noted. Call mcneil is in reach and family aware to ring/call with any needs.
--- NOTE | 2021-12-04 06:58 | PC.NURSE ---
pt sleeping no sign of discuss, family member at the bedside.
[2021-12-04 07:55] LABS: Glucose, Whole Blood 143 mg/dL (60-115)
[2021-12-04] MEDS: Omeprazole 20 MG CAPSULE.DR PO ×2 (08:18→16:10)
[2021-12-04] MEDS: lisinopriL 20 MG TABLET PO (09:20)
[2021-12-04] MEDS: Acyclovir 200 MG CAPSULE 400 MG PO ×3 (09:20→22:41)
[2021-12-04] MEDS: amLODIPine Besylate 5 MG TABLET PO (09:20)
[2021-12-04] MEDS: Insulin Glargine,Hum.rec.anlog 100 UNIT/ML 10 ML VIAL 48 UNIT SUBCUT (09:21)
--- NOTE | 2021-12-04 09:36 | PC.NURSE ---
Patient resting on stretcher. skin pwd, resp even and non labored. denies pain. visitor at bedside. medicated as ordered.
[2021-12-04] MEDS: busPIRone HCl 5 MG TABLET 15 MG PO ×2 (09:53→22:41)
--- NOTE | 2021-12-04 12:19 | PC.NURSE ---
pt alert, tearful, not responding to question, but cooperative w vitals, vss, family no longer at bedside. unable to determine pain/complaints at this time, will continue to monitor.
[2021-12-04 13:24] LABS: Glucose, Whole Blood 172 mg/dL (60-115)
--- NOTE | 2021-12-04 13:34 | PC.NURSE ---
pt medicated per order
--- NOTE | 2021-12-04 16:10 | PC.NURSE ---
pt medicated per provider order, tearful, not responding to questions.
--- NOTE | 2021-12-04 18:02 | PC.NURSE ---
brass and wind instrument repairer talking to pt - needs laboratory veterinarian.
--- NOTE | 2021-12-04 19:04 | PC.NURSE ---
pt alert, vss, pt assisted to commode, will continue to monitor.
--- NOTE | 2021-12-04 21:28 | PC.NURSE ---
pharmacy called for missing meds
[2021-12-04] MEDS: Divalproex Sodium 500 MG TABLET.DR 1000 MG PO (22:41)
[2021-12-04] MEDS: traZODone HCL 50 MG TABLET PO (22:41)
[2021-12-04] MEDS: Atorvastatin Calcium 40 MG TABLET PO (22:41)
--- NOTE | 2021-12-04 22:46 | PC.NURSE ---
patient awake/alert, denies pain/discomfort, pt took evening medications, still awaiting one missing med from pharmacy, vss, will continue to monitor
[2021-12-04] MEDS: ARIPiprazole 15 MG TABLET PO (23:03)
--- NOTE | 2021-12-04 23:50 | PC.NURSE ---
Assumed care of pt Pt resting on stretcher NAD Will continue to monitor Awaiting inpatient bed search
[2021-12-05 01:34] VITALS: BP 152/72; PULSE 83; RESP 16; O2SAT 96
[2021-12-05 04:30] VITALS: O2SAT 97
[2021-12-05 06:16] VITALS: BP 93/53; PULSE 66; RESP 18
[2021-12-05] MEDS: Omeprazole 20 MG CAPSULE.DR PO ×2 (06:22→16:07)
[2021-12-05] MEDS: Insulin Glargine,Hum.rec.anlog 100 UNIT/ML 10 ML VIAL 48 UNIT SUBCUT (09:44)
[2021-12-05] MEDS: lisinopriL 20 MG TABLET PO (09:45)
[2021-12-05] MEDS: busPIRone HCl 5 MG TABLET 15 MG PO (09:46)
[2021-12-05] MEDS: Acyclovir 200 MG CAPSULE 400 MG PO ×2 (09:46→16:06)
[2021-12-05] MEDS: amLODIPine Besylate 5 MG TABLET PO (09:47)
[2021-12-05 09:56] VITALS: BP 130/56; PULSE 84; RESP 17; O2SAT 94
[2021-12-05 12:23] LABS: COVID-19 Test Negative (Negative); IDNOW Serial# 16C4AD1C
[2021-12-05 20:12] VITALS: BP 133/76; PULSE 97; RESP 18; TEMP 37.3; O2SAT 97
--- NOTE | 2021-12-05 20:39 | PC.NURSE ---
Pt woke easily, dinner tray was ready. Pt finished 100% of both lunch and dinner.
--- NOTE | 2021-12-05 21:18 | PC.NURSE ---
Pt assisted getting out of bed, steady on feet to bedside commode.
[2021-12-05 22:01] VITALS: BP 133/62; PULSE 86; RESP 16; TEMP 36.5; O2SAT 96
--- NOTE | 2021-12-05 22:53 | PC.NURSE ---
Report given to RN. Pt transported to by EDT and security.
[2021-12-06] MEDS: busPIRone HCl 5 MG TABLET 15 MG PO ×2 (00:12→08:29)
[2021-12-06] MEDS: Acyclovir 200 MG CAPSULE 400 MG PO ×4 (00:12→19:28)
[2021-12-06] MEDS: ARIPiprazole 15 MG TABLET PO (00:13)
[2021-12-06] MEDS: Divalproex Sodium 500 MG TABLET.DR 1000 MG PO ×2 (00:13→19:28)
[2021-12-06] MEDS: Atorvastatin Calcium 40 MG TABLET PO ×2 (00:17→19:27)
--- NOTE | 2021-12-06 01:42 | PC.ADMIT ---
pt is a 61 year old female who presented to the emergency dept with c/o of alteration in mental status. family stated pt experiencing auditory hallucinations. a ct scan of her brain showed no acute findings but ischemic sm vessel vascular disease noted. pt is an insulin dependent diabetic. she uses a walker for ambulation. pt is entirely ivorian speaking. apparently pt was experiencing auditory hallucinations in which she was told her son is and that she should hurt herself. she was not performing her adls such as eating and bathing. pt has recently located here from [place]. Sister stated that pt has had 2 admissions to mental health facilities in [place]. sister states that pt moved from [place] on 11-18 and sister feels that the pt is no longer able to care for herself d/t her delusions. interestingly, on admission pt had +covid swab. covid swab repeated 3-17 and results are negative. pt has retired to her room and does not want to participate in admission assessment at this time. her mood is withdrawn and she speaks in one-two word responses. she is soft spoken.
[2021-12-06] MEDS: Omeprazole 20 MG CAPSULE.DR PO ×2 (05:39→16:51)
[2021-12-06 06:38] LABS: Glucose, Whole Blood 132 mg/dL (60-115)
[2021-12-06 06:47] VITALS: BP 147/92; PULSE 84; RESP 16; TEMP 36.4; O2SAT 98
[2021-12-06] MEDS: amLODIPine Besylate 5 MG TABLET PO (08:29)
[2021-12-06] MEDS: lisinopriL 20 MG TABLET PO (08:29)
[2021-12-06] MEDS: Insulin Glargine,Hum.rec.anlog 100 UNIT/ML 10 ML VIAL 48 UNIT SUBCUT (08:33)
[2021-12-06 08:34] VITALS: BP 135/68; PULSE 82
[2021-12-06 09:11] LABS: Estimated Average Glucose 180 mg/dL; Hemoglobin A1c % 7.9 %
[2021-12-06 09:14] LABS: Cholesterol 139 mg/dL; HDL Cholesterol 71 mg/dL; LDL Cholesterol Calculated 51 mg/dl; Magnesium 1.8 mg/dL (1.6-2.6); Triglycerides 86 mg/dL
[2021-12-06 09:33] LABS: Free T4 (Free Thyroxine) 1.23 ng/dL (0.71-1.85); Thyroid Stimulating Hormone 3.58 uIU/mL (0.32-4.0)
[2021-12-06 09:55] LABS: Folate 19.2 ng/mL (> or = 4.0); Vitamin B12 694 pg/mL (200-900)
--- NOTE | 2021-12-06 11:39 | HO.PSYADMNOT ---
HPI Date of Service: 12/06/21 Chief Complaint: Schizophrenia HPI Healthcare Proxy: Yes Narrative: HCP Leah was contacted 12/06 11:30 a.m. this speech writer plans to confirm this community HCP for the duration of the hospitalization. per CARE team assessment: Pt. was brought into the ER by her sister due to sister's report that she has the delusions that her son is , she experiences voices that instruct her to harm herself and that her son is . Sister also stated that Pt. was talking nonsense and walked out of the [apartment] crying sister also reported pt has been having diffiuclty with ADLs. pt seen with toe pounder. pt presented as dysphoric, tearful, with paucity of thought and PMR in general but with tremulous hands. she was a poor historian and had limited insight into her mental illness and her reasons for hospitalization. when asked why she was in the hospital she stated that Leah, her HCP, had brought her to the hospital to have her DM and HTN evaluated. yet on being asked what kind of unit she was on she was able to say that it was for mental health treatment. on being asked why she was on a mental health unit, she stated Leah told her she needed to stay here until thursday. she endorses her predominant mood state as abandoned, insomnia with sleeping 3-4 hours per night, anhedonia and amotivation, anergia, mixed appetite, PMR. she did not endorse difficulty in concentration and she denied SI. on being asked about her feeling abandoned, she becomes tearful and declines to elaborate. she reports having been helped by medications in the past and is open to continued pharmacotherapy. Past Psychiatric History: pt reports h/o 2-3 week period of needing very little sleep and having much energy and being very active. she states she has been psychiatrically hospitalized twice. she denies any SA or SIB. she states she does have outpt providers but is unable to identify them. Medical Evaluation Reviewed: Yes [facility] Medical History Depression Diabetes GERD (gastroesophageal reflux disease) HTN (hypertension) Hyperlipemia Family History: sister - panic disorder Social History: highest completed grade is 4th. spent her entire life in [place] until moving to [place] to live with her son in 2008. she recently moved to [facility] to be with her sister. she denies she has any income. she is living with her sister. Substance History: denies Trauma History: denies Diagnostics Vital Signs (24Hr): Vital Signs - 24 hr 12/05/21 20:12 12/05/21 22:01 12/06/21 06:47 Temperature 99.1 F 97.7 F 97.5 F Pulse Rate 97 86 84 Respiratory Rate 18 16 16 Blood Pressure 133/76 133/62 147/92 H Pulse Oximetry 97 96 98 12/06/21 08:34 Temperature Pulse Rate 82 Respiratory Rate Blood Pressure 135/68 Pulse Oximetry BMI result Body Mass Index 31.1 Labs Results: 12/02/21 19:35 12/03/21 19:12 Labs: Laboratory Results - last 48 hr 12/04/21 12/05/21 12/06/21 13:16 11:50 06:34 POC Glucose 172 H 132 H Estimat Average Glucose Hemoglobin A1c % Magnesium Triglycerides Cholesterol LDL Cholesterol, Calc HDL Cholesterol Vitamin B12 Folate TSH Free T4 COVID-19 (DEVEN) Negative COVID-19 Clin Com See Note 12/06/21 12/06/21 12/06/21 08:15 08:15 08:15 POC Glucose Estimat Average Glucose 180 Hemoglobin A1c % 7.9 Magnesium 1.8 Triglycerides 86 Cholesterol 139 LDL Cholesterol, Calc 51 HDL Cholesterol 71 Vitamin B12 694 Folate 19.2 TSH 3.58 Free T4 1.23 COVID-19 (DEVEN) COVID-19 Clin Com Imaging Radiology Impressions: ITS Impressions Head CT 12/02/21 22:56 IMPRESSION: No acute intracranial pathology. Mild volume loss with small vessel ischemic change. Meds/Allergies Meds Home Medications Acetaminophen (Acetaminophen 325 Mg Tablet) 650 mg PO Q6H PRN PRN Reason: Headache/Pain Mild Scale (1-3) Acyclovir (Acyclovir 200 Mg Capsule) 400 mg PO TID CASANDRA Last Admin: 12/06/21 14:41 Dose: 400 mg Documented by: Al Hydroxide/Mg Hydroxide (Magnesium Hydrox/Alum Hydrox 30 Ml Oral.Susp) 30 ml PO Q6H PRN PRN Reason: Heartburn/Nausea Amlodipine Besylate (Amlodipine Besylate 5 Mg Tablet) 5 mg PO DAILY [facility]; Protocol Last Admin: 12/06/21 08:29 Dose: 5 mg Documented by: Atorvastatin Calcium (Atorvastatin Calcium 40 Mg Tablet) 40 mg PO BEDTIME [facility] Last Admin: 12/06/21 00:17 Dose: 40 mg Documented by: Dextrose (Dextrose 50 % 25 Gm/50 Ml Vial) 25 gm IVPUSH Q15M PRN; Protocol PRN Reason: per Hypoglycemia Standing Ord. Divalproex Sodium (Divalproex Sodium 500 Mg Tablet.) 1,000 mg PO BEDTIME [facility] Last Admin: 12/06/21 00:13 Dose: 1,000 mg Documented by: Glucose (Glucose Gel 15 Gm Gel..Gram.) 15 gm PO Q15M PRN; Protocol PRN Reason: per Hypoglycemia Standing Ord. Haloperidol (Haloperidol 1 Mg Tablet) 1 mg PO ONCE ONE Stop: 12/06/21 21:01 Haloperidol (Haloperidol 1 Mg Tablet) 2 mg PO BID [facility] Hydroxyzine HCl (Hydroxyzine Hcl 25 Mg Tablet) 25 mg PO BEDTIME PRN PRN Reason: Anxiety Insulin Glargine (Insulin Glargine,Hum.Rec.Anlog 100 Unit/Ml 10 Ml Vial) 48 unit SUBCUT DAILY [facility] Last Admin: 12/06/21 08:33 Dose: 48 unit Documented by: Insulin Human Lispro (Insulin Lispro 100 Unit/Ml 3 Ml Vial) 0 unit SUBCUT QIDACHS [facility]; Protocol Last Admin: 12/06/21 16:51 Dose: 4 unit Documented by: Lisinopril (Lisinopril 20 Mg Tablet) 20 mg PO DAILY [facility]; Protocol Last Admin: 12/06/21 08:29 Dose: 20 mg Documented by: Magnesium Hydroxide (Milk Of Magnesia 30 Ml Oral.Susp) 30 ml PO DAILY PRN PRN Reason: Constipation Omeprazole (Omeprazole 20 Mg Capsule.) 20 mg PO BID@0630,1630 [facility] Last Admin: 12/06/21 16:51 Dose: 20 mg Documented by: Pharmacy Consult (Consult Rx Perform Med Rec) 1 each MISCELLANE ONCE PRN PRN Reason: Consult order Trazodone HCl (Trazodone Hcl 50 Mg Tablet) 50 mg PO BEDTIME PRN PRN Reason: Insomnia Allergies Allergies Allergy/AdvReac Type Severity Reaction Status Date / Time Penicillins Allergy Unknown Verified 12/02/21 19:30 Mental Status Exam Mental Status Exam Narrative: obese deconditioned woman ambulating with a rollator walker. cooperative with interview. general PMR but with B/L finger tremulousness. speech anguillan only, decr amount, decr rate, decr loudness, incr latency. thoughts linear and logical. no delusional content expressed. affect constricted, normo-intense, tearful, consistent with context. mood abandoned. denies SI/HI/AVH. Assessment & Plan Assessment & Plan (1) Bipolar I disorder with mood-incongruent psychotic features: Status: Acute Code(s): F31.9 - Bipolar disorder, unspecified Plan DC abilify as apparently ineffective for her psychosis. try higher potency D2 tita, haldol. DC buspar as not indicated. T/C adding wellbutrin for depression once it is demonstrated pt is tolerating haldol and benefiting from it. verify VPA at a proper serum level. otherwise continue current medications. obtain DC summaries from hospitals in [place]. collaborate with ELKE Lynn. plan discussed in detail with leah 12/06, leah agrees with plan. Patient educated on: medication risk/benefits Guardian/Caregiver educated on: diagnosis and medication risk/benefits Reason for continued inpatient stay Substantial Risk for: inability to function
[2021-12-06 11:50] LABS: Glucose, Whole Blood 174 mg/dL (60-115)
[2021-12-06] MEDS: Insulin Lispro 100 UNIT/ML 3 ML VIAL SUBCUT ×4 (12:04→21:28)
[2021-12-06 16:34] LABS: Glucose, Whole Blood 207 mg/dL (60-115)
[2021-12-06 18:00] VITALS: BP 128/82; PULSE 69; RESP 16; TEMP 36.6; O2SAT 98
[2021-12-06] MEDS: HaloperidoL 1 MG TABLET PO (19:27)
[2021-12-06 21:00] LABS: Glucose, Whole Blood 173 mg/dL (60-115)
[2021-12-07] MEDS: Omeprazole 20 MG CAPSULE.DR PO ×2 (06:33→16:25)
[2021-12-07 07:58] LABS: Glucose, Whole Blood 109 mg/dL (60-115)
[2021-12-07] MEDS: lisinopriL 20 MG TABLET PO (08:12)
[2021-12-07] MEDS: amLODIPine Besylate 5 MG TABLET PO (08:12)
[2021-12-07] MEDS: HaloperidoL 1 MG TABLET 2 MG PO ×2 (08:12→21:14)
[2021-12-07] MEDS: Acyclovir 200 MG CAPSULE 400 MG PO ×3 (08:12→21:14)
[2021-12-07] MEDS: Insulin Glargine,Hum.rec.anlog 100 UNIT/ML 10 ML VIAL 48 UNIT SUBCUT (08:16)
[2021-12-07 08:18] VITALS: BP 153/87; PULSE 84; RESP 18; TEMP 36.3; O2SAT 97
--- NOTE | 2021-12-07 10:06 | HO.PSYCHPN ---
Subjective Subjective Date of Service: 12/07/21 Reason For Visit: Schizophrenia Subjective Notes: Conditional Voluntary Interim History: Patient was seen and discussed in rounds today. She was seen with the help of an fill technician. She continues to have some confusion. Tearful and delusional. She states that she did not sleep well and I will increase her trazodone to 100 mg nightly p.r.n.. Eating adequately. No other changes were made today Review of Systems Review of Systems All other systems are reviewed and are negative Constitutional: Reports as per HPI and Reports no additional constitutional complaints Eyes: Reports as per HPI and Reports no additional eye complaints Reports system reviewed and no additional complaints, except as documented Cardiovascular: Reports as per HPI and Reports no additional cardiovascular complaints Respiratory: Reports as per HPI and Reports no additional respiratory complaints Gastrointestinal: Reports as per HPI and Reports no additional gastrointestinal complaints Genitourinary: Reports no additional female genitourinary complaints Musculoskeletal: Reports no additional musculoskeletal complaints Skin/Breast: Reports system reviewed and no additional complaints, except as docu Psychiatric: Reports no additional psychiatric complaints Endocrine: Reports no additional endocrine complaints Hematologic/Lymphatic: Reports no additional hematologic/lymphatic complaints Allergic/Immunologic: Reports no additional allergic/immunologic complaints Reports system reviewed and no additional complaints, except as documented and Reports Abnormal speech present Mental Status Exam Mental Status Exam Narrative: In today's visit she was seen with the help of fill technician. She was laying in bed. She is alert, pleasant and interactive. She responds appropriately to questions. Speech is normal. Moderate eye contact. Affect is subdued. Mood is sad. Reported to be delusional. No SI. Cognitively she has slow thought processes and reported to be confused at times. Judgment is hard to assess Diagnostics Vital Signs (24Hr): Vital Signs - 24 hr 12/06/21 18:00 12/07/21 08:18 Temperature 97.8 F 97.4 F Pulse Rate 69 84 Respiratory Rate 16 18 Blood Pressure 128/82 153/87 H Pulse Oximetry 98 97 BMI result Body Mass Index 31.1 Labs Results: 12/02/21 19:35 12/03/21 19:12 Labs: Laboratory Results - last 48 hr 12/05/21 12/06/21 12/06/21 11:50 06:34 08:15 POC Glucose 132 H Estimat Average Glucose 180 Hemoglobin A1c % 7.9 Magnesium Triglycerides Cholesterol LDL Cholesterol, Calc HDL Cholesterol Vitamin B12 Folate TSH Free T4 COVID-19 (DEVEN) Negative COVID-19 Clin Com See Note 12/06/21 12/06/21 12/06/21 08:15 08:15 11:47 POC Glucose 174 H Estimat Average Glucose Hemoglobin A1c % Magnesium 1.8 Triglycerides 86 Cholesterol 139 LDL Cholesterol, Calc 51 HDL Cholesterol 71 Vitamin B12 694 Folate 19.2 TSH 3.58 Free T4 1.23 COVID-19 ([facility]EN) COVID-19 Clin Com 12/06/21 12/06/21 12/07/21 16:30 20:56 07:54 POC Glucose 207 H 173 H 109 Estimat Average Glucose Hemoglobin A1c % Magnesium Triglycerides Cholesterol LDL Cholesterol, Calc HDL Cholesterol Vitamin B12 Folate TSH Free T4 COVID-19 (DEVEN) COVID-19 Clin Com Imaging Radiology Impressions: ITS Impressions Head CT 12/02/21 22:56 IMPRESSION: No acute intracranial pathology. Mild volume loss with small vessel ischemic change. Medications Medications Current Medications Acetaminophen (Acetaminophen 325 Mg Tablet) 650 mg PO Q6H PRN PRN Reason: Headache/Pain Mild Scale (1-3) Acyclovir (Acyclovir 200 Mg Capsule) 400 mg PO TID [facility] Last Admin: 12/07/21 08:12 Dose: 400 mg Documented by: Al Hydroxide/Mg Hydroxide (Magnesium Hydrox/Alum Hydrox 30 Ml Oral.Susp) 30 ml PO Q6H PRN PRN Reason: Heartburn/Nausea Amlodipine Besylate (Amlodipine Besylate 5 Mg Tablet) 5 mg PO DAILY [facility]; Protocol Last Admin: 12/07/21 08:12 Dose: 5 mg Documented by: Atorvastatin Calcium (Atorvastatin Calcium 40 Mg Tablet) 40 mg PO BEDTIME [facility] Last Admin: 12/06/21 19:27 Dose: 40 mg Documented by: Dextrose (Dextrose 50 % 25 Gm/50 Ml Vial) 25 gm IVPUSH Q15M PRN; Protocol PRN Reason: per Hypoglycemia Standing Ord. Divalproex Sodium (Divalproex Sodium 500 Mg Tablet.) 1,000 mg PO BEDTIME [facility] Last Admin: 12/06/21 19:28 Dose: 1,000 mg Documented by: Glucose (Glucose Gel 15 Gm Gel..Gram.) 15 gm PO Q15M PRN; Protocol PRN Reason: per Hypoglycemia Standing Ord. Haloperidol (Haloperidol 1 Mg Tablet) 2 mg PO BID [facility] Last Admin: 12/07/21 08:12 Dose: 2 mg Documented by: Hydroxyzine HCl (Hydroxyzine Hcl 25 Mg Tablet) 25 mg PO BEDTIME PRN PRN Reason: Anxiety Insulin Glargine (Insulin Glargine,Hum.Rec.Anlog 100 Unit/Ml 10 Ml Vial) 48 unit SUBCUT DAILY [facility] Last Admin: 12/07/21 08:16 Dose: 48 unit Documented by: Insulin Human Lispro (Insulin Lispro 100 Unit/Ml 3 Ml Vial) 0 unit SUBCUT QIDACHS [facility]; Protocol Last Admin: 12/06/21 21:28 Dose: 1 unit Documented by: Lisinopril (Lisinopril 20 Mg Tablet) 20 mg PO DAILY [facility]; Protocol Last Admin: 12/07/21 08:12 Dose: 20 mg Documented by: Magnesium Hydroxide (Milk Of Magnesia 30 Ml Oral.Susp) 30 ml PO DAILY PRN PRN Reason: Constipation Omeprazole (Omeprazole 20 Mg Capsule.) 20 mg PO BID@0630,1630 [facility] Last Admin: 12/07/21 06:33 Dose: 20 mg Documented by: Pharmacy Consult (Consult Rx Perform Med Rec) 1 each MISCELLANE ONCE PRN PRN Reason: Consult order Trazodone HCl (Trazodone Hcl 50 Mg Tablet) 50 mg PO BEDTIME PRN PRN Reason: Insomnia Allergies Allergies Allergy/AdvReac Type Severity Reaction Status Date / Time Penicillins Allergy Unknown Verified 12/02/21 19:30 Assessment & Plan Assessment & Plan (1) Bipolar I disorder with mood-incongruent psychotic features: Status: Acute Code(s): F31.9 - Bipolar disorder, unspecified Plan DC abilify as apparently ineffective for her psychosis. try higher potency D2 tita, haldol. DC buspar as not indicated. T/C adding wellbutrin for depression once it is demonstrated pt is tolerating haldol and benefiting from it. verify VPA at a proper serum level. otherwise continue current medications. obtain DC summaries from hospitals in [place]. collaborate with ELKE Lynn. plan discussed in detail with [place] 12/06, [place] agrees with plan. 12/07/2021: Continue current regimen and plans with increase of trazodone to 100 mg p.r.n. I spent minutes with the patient and/or on the patient floor today, greater than?50% of which was spent counseling/coordinating care. Reason for contiued inpatient stay Substantial Risk for: med/psych decompensation
[2021-12-07 12:17] LABS: Glucose, Whole Blood 213 mg/dL (60-115)
[2021-12-07] MEDS: Insulin Lispro 100 UNIT/ML 3 ML VIAL SUBCUT ×3 (12:17→21:15)
[2021-12-07 16:21] LABS: Glucose, Whole Blood 175 mg/dL (60-115)
[2021-12-07 19:12] VITALS: BP 139/88; PULSE 96; RESP 16; TEMP 36.5; O2SAT 96
[2021-12-07 21:07] LABS: Glucose, Whole Blood 296 mg/dL (60-115)
[2021-12-07] MEDS: Divalproex Sodium 500 MG TABLET.DR 1000 MG PO (21:14)
[2021-12-07] MEDS: Atorvastatin Calcium 40 MG TABLET PO (21:14)
[2021-12-07] MEDS: hydrOXYzine HCL 25 MG TABLET PO (21:14)
[2021-12-07] MEDS: traZODone HCL 100 MG TABLET PO (21:14)
[2021-12-08] MEDS: Omeprazole 20 MG CAPSULE.DR PO ×2 (06:14→16:42)
[2021-12-08 07:50] LABS: Glucose, Whole Blood 131 mg/dL (60-115)
[2021-12-08] MEDS: lisinopriL 20 MG TABLET PO (08:15)
[2021-12-08] MEDS: amLODIPine Besylate 5 MG TABLET PO (08:15)
[2021-12-08] MEDS: HaloperidoL 1 MG TABLET 2 MG PO ×2 (08:15→21:47)
[2021-12-08] MEDS: Insulin Glargine,Hum.rec.anlog 100 UNIT/ML 10 ML VIAL 48 UNIT SUBCUT (08:15)
[2021-12-08] MEDS: Acyclovir 200 MG CAPSULE 400 MG PO ×3 (08:15→21:47)
[2021-12-08 08:18] VITALS: BP 120/73; PULSE 88; RESP 18; TEMP 36.4; O2SAT 99
--- NOTE | 2021-12-08 09:08 | P.PNPSI_ITS ---
Subjective Subjective Date of Service: 12/08/21 Reason For Visit: Schizophrenia Subjective Notes: Conditional Voluntary Interim History: Patient was seen and discussed in rounds today.? She was seen with the help of an hourly sign language interpreter.? Records were reviewed. She continues to be withdrawn and depressed with crying spells. This morning she complains of some dizziness. Vital signs to be checked and reviewed. No complaints or side effects. She was having some trouble eating and insure was ordered yesterday which she was able to ingest. Sleeping mostly adequately. No changes were made Mental Status Exam Mental Status Exam Narrative: In today's visit she was seen with the help of hourly sign language interpreter. She was laying in bed. She is alert, pleasant and interactive. She responds appropriately to questions. Speech is normal. Moderate eye contact. Affect is subdued. Mood is sad. Reported to be delusional. No SI. Cognitively she has slow thought processes and reported to be confused at times. Judgment is hard to assess Diagnostics Vital Signs (24Hr): Vital Signs - 24 hr 12/07/21 19:12 12/08/21 08:18 Temperature 97.7 F 97.6 F Pulse Rate 96 88 Respiratory Rate 16 18 Blood Pressure 139/88 120/73 Pulse Oximetry 96 99 BMI result Body Mass Index 31.1 Labs Results: 12/02/21 19:35 12/03/21 19:12 Labs: Laboratory Results - last 48 hr 12/06/21 12/06/21 12/06/21 08:15 08:15 08:15 POC Glucose Estimat Average Glucose 180 Hemoglobin A1c % 7.9 Magnesium 1.8 Triglycerides 86 Cholesterol 139 LDL Cholesterol, Calc 51 HDL Cholesterol 71 Vitamin B12 694 Folate 19.2 TSH 3.58 Free T4 1.23 12/06/21 12/06/21 12/06/21 11:47 16:30 20:56 POC Glucose 174 H 207 H 173 H Estimat Average Glucose Hemoglobin A1c % Magnesium Triglycerides Cholesterol LDL Cholesterol, Calc HDL Cholesterol Vitamin B12 Folate TSH Free T4 12/07/21 12/07/21 12/07/21 07:54 12:13 16:17 POC Glucose 109 213 H 175 H Estimat Average Glucose Hemoglobin A1c % Magnesium Triglycerides Cholesterol LDL Cholesterol, Calc HDL Cholesterol Vitamin B12 Folate TSH Free T4 12/07/21 12/08/21 21:01 07:46 POC Glucose 296 H 131 H Estimat Average Glucose Hemoglobin A1c % Magnesium Triglycerides Cholesterol LDL Cholesterol, Calc HDL Cholesterol Vitamin B12 Folate TSH Free T4 Imaging Radiology Impressions: ITS Impressions Head CT 12/02/21 22:56 IMPRESSION: No acute intracranial pathology. Mild volume loss with small vessel ischemic change. Medications Medications Current Medications Acetaminophen (Acetaminophen 325 Mg Tablet) 650 mg PO Q6H PRN PRN Reason: Headache/Pain Mild Scale (1-3) Acyclovir (Acyclovir 200 Mg Capsule) 400 mg PO TID [facility] Last Admin: 12/08/21 08:15 Dose: 400 mg Documented by: Al Hydroxide/Mg Hydroxide (Magnesium Hydrox/Alum Hydrox 30 Ml Oral.Susp) 30 ml PO Q6H PRN PRN Reason: Heartburn/Nausea Amlodipine Besylate (Amlodipine Besylate 5 Mg Tablet) 5 mg PO DAILY [facility]; Protocol Last Admin: 12/08/21 08:15 Dose: 5 mg Documented by: Atorvastatin Calcium (Atorvastatin Calcium 40 Mg Tablet) 40 mg PO BEDTIME [facility] Last Admin: 12/07/21 21:14 Dose: 40 mg Documented by: Dextrose (Dextrose 50 % 25 Gm/50 Ml Vial) 25 gm IVPUSH Q15M PRN; Protocol PRN Reason: per Hypoglycemia Standing Ord. Divalproex Sodium (Divalproex Sodium 500 Mg Tablet.Dr) 1,000 mg PO BEDTIME [facility] Last Admin: 12/07/21 21:14 Dose: 1,000 mg Documented by: Glucose (Glucose Gel 15 Gm Gel..Gram.) 15 gm PO Q15M PRN; Protocol PRN Reason: per Hypoglycemia Standing Ord. Haloperidol (Haloperidol 1 Mg Tablet) 2 mg PO BID [facility] Last Admin: 12/08/21 08:15 Dose: 2 mg Documented by: Hydroxyzine HCl (Hydroxyzine Hcl 25 Mg Tablet) 25 mg PO BEDTIME PRN PRN Reason: Anxiety Last Admin: 12/07/21 21:14 Dose: 25 mg Documented by: Insulin Glargine (Insulin Glargine,Hum.Rec.Anlog 100 Unit/Ml 10 Ml Vial) 48 unit SUBCUT DAILY [facility] Last Admin: 12/08/21 08:15 Dose: 48 unit Documented by: Insulin Human Lispro (Insulin Lispro 100 Unit/Ml 3 Ml Vial) 0 unit SUBCUT QIDACHS [facility]; Protocol Last Admin: 12/08/21 08:28 Dose: Not Given Documented by: Lisinopril (Lisinopril 20 Mg Tablet) 20 mg PO DAILY [facility]; Protocol Last Admin: 12/08/21 08:15 Dose: 20 mg Documented by: Magnesium Hydroxide (Milk Of Magnesia 30 Ml Oral.Susp) 30 ml PO DAILY PRN PRN Reason: Constipation Omeprazole (Omeprazole 20 Mg Capsule.Dr) 20 mg PO BID@0630,1630 [facility] Last Admin: 12/08/21 06:14 Dose: 20 mg Documented by: Pharmacy Consult (Consult Rx Perform Med Rec) 1 each MISCELLANE ONCE PRN PRN Reason: Consult order Trazodone HCl (Trazodone Hcl 100 Mg Tablet) 100 mg PO BEDTIME PRN PRN Reason: Insomnia Last Admin: 12/07/21 21:14 Dose: 100 mg Documented by: Allergies Allergies Allergy/AdvReac Type Severity Reaction Status Date / Time Penicillins Allergy Unknown Verified 12/02/21 19:30 Assessment & Plan Assessment & Plan (1) Bipolar I disorder with mood-incongruent psychotic features: Status: Acute Code(s): F31.9 - Bipolar disorder, unspecified Plan DC abilify as apparently ineffective for her psychosis. try higher potency D2 tita, haldol. DC buspar as not indicated. T/C adding wellbutrin for depression once it is demonstrated pt is tolerating haldol and benefiting from it. verify VPA at a proper serum level. otherwise continue current medications. obtain DC summaries from hospitals in [place]. collaborate with ELKE Lynn. plan discussed in detail with mich 12/06, mich agrees with plan. 12/07/2021: Continue current regimen and plans with increase of trazodone to 100 mg p.r.n. 12/08/2021: Continue current plans and regimen. I spent minutes with the patient and/or on the patient floor today, greater than?50% of which was spent counseling/coordinating care. Reason for contiued inpatient stay Substantial Risk for: med/psych decompensation
[2021-12-08] MEDS: Acetaminophen 325 MG TABLET 650 MG PO (09:49)
[2021-12-08 11:52] LABS: Glucose, Whole Blood 235 mg/dL (60-115)
[2021-12-08] MEDS: Insulin Lispro 100 UNIT/ML 3 ML VIAL SUBCUT ×3 (12:32→21:55)
[2021-12-08 16:34] LABS: Glucose, Whole Blood 202 mg/dL (60-115)
[2021-12-08 21:30] VITALS: BP 113/76; PULSE 81; RESP 16; TEMP 36.2; O2SAT 99
[2021-12-08] MEDS: Atorvastatin Calcium 40 MG TABLET PO (21:47)
[2021-12-08] MEDS: Divalproex Sodium 500 MG TABLET.DR 1000 MG PO (21:47)
[2021-12-08 21:53] LABS: Glucose, Whole Blood 196 mg/dL (60-115)
[2021-12-09] MEDS: Omeprazole 20 MG CAPSULE.DR PO ×2 (06:38→17:02)
[2021-12-09 08:04] LABS: Glucose, Whole Blood 120 mg/dL (60-115)
[2021-12-09] MEDS: lisinopriL 20 MG TABLET PO (09:41)
[2021-12-09] MEDS: Acyclovir 200 MG CAPSULE 400 MG PO ×3 (09:41→21:17)
[2021-12-09] MEDS: Insulin Glargine,Hum.rec.anlog 100 UNIT/ML 10 ML VIAL 48 UNIT SUBCUT (09:41)
[2021-12-09] MEDS: amLODIPine Besylate 5 MG TABLET PO (09:41)
[2021-12-09] MEDS: HaloperidoL 1 MG TABLET 2 MG PO ×2 (09:41→21:17)
[2021-12-09 09:46] VITALS: BP 160/72; PULSE 83; RESP 14; TEMP 36; O2SAT 100
[2021-12-09] MEDS: Insulin Lispro 100 UNIT/ML 3 ML VIAL SUBCUT ×3 (12:32→21:31)
[2021-12-09 12:39] LABS: Glucose, Whole Blood 244 mg/dL (60-115)
[2021-12-09 16:45] VITALS: BP 110/78; PULSE 74; TEMP 36.4; O2SAT 100
[2021-12-09 17:11] LABS: Glucose, Whole Blood 218 mg/dL (60-115)
[2021-12-09] MEDS: Divalproex Sodium 500 MG TABLET.DR 1000 MG PO (21:17)
[2021-12-09 21:29] LABS: Glucose, Whole Blood 211 mg/dL (60-115)
[2021-12-09] MEDS: Atorvastatin Calcium 40 MG TABLET PO (21:30)
--- NOTE | 2021-12-09 22:00 | HO.PSYCHPN ---
Subjective Subjective Date of Service: 12/09/21 Reason For Visit: Schizophrenia Interim History: Seen with [employer] pt disorganized, with anxious affect, tearful but saying she's fine... loan underwriter asks how she came to be in hospital but pt says they wanted to make me guilty ...but i'm not guilty when asked to explain further, she repeats the exact same thing; loan underwriter asked again and pt says the same thing. She denies AVH or SI/HI. Competitive Athlete could not engage with patient in any more meaningul discussion. Mental Status Exam Mental Status Exam Narrative: Pt is alert and oriented; behavior is sitting on bed, staring ahead; dressed in hospital gown, dishevleld, malodorous; mood is described as fine and affect anxious, tearful, some anguish; mininal contact appropriate; Speech is normal rate, volume and prosody and not pressured; psychomotor retardation present; thought process is concrete; thought content is limited; denies delusional content, paranoid ideations or grandiosity; denies any SI/HI. Pt appears internally preoccupied; Patients insight and judgment are impaired. Diagnostics Vital Signs (24Hr): Vital Signs - 24 hr 12/09/21 09:46 12/09/21 16:45 Temperature 96.8 F 97.6 F Pulse Rate 83 74 Respiratory Rate 14 Blood Pressure 160/72 H 110/78 Pulse Oximetry 100 100 BMI result Body Mass Index 31.1 Labs Results: 12/02/21 19:35 12/03/21 19:12 Labs: Laboratory Results - last 48 hr 12/08/21 12/08/21 12/08/21 07:46 11:48 16:30 POC Glucose 131 H 235 H 202 H 12/08/21 12/09/21 12/09/21 21:47 08:00 12:27 POC Glucose 196 H 120 H 244 H 12/09/21 12/09/21 16:52 21:24 POC Glucose 218 H 211 H Imaging Radiology Impressions: ITS Impressions Head CT 12/02/21 22:56 IMPRESSION: No acute intracranial pathology. Mild volume loss with small vessel ischemic change. Medications Medications Current Medications Acetaminophen (Acetaminophen 325 Mg Tablet) 650 mg PO Q6H PRN PRN Reason: Headache/Pain Mild Scale (1-3) Last Admin: 12/08/21 09:49 Dose: 650 mg Documented by: Acyclovir (Acyclovir 200 Mg Capsule) 400 mg PO TID [facility] Last Admin: 12/09/21 21:17 Dose: 400 mg Documented by: Al Hydroxide/Mg Hydroxide (Magnesium Hydrox/Alum Hydrox 30 Ml Oral.Susp) 30 ml PO Q6H PRN PRN Reason: Heartburn/Nausea Amlodipine Besylate (Amlodipine Besylate 5 Mg Tablet) 5 mg PO DAILY [facility]; Protocol Last Admin: 12/09/21 09:41 Dose: 5 mg Documented by: Atorvastatin Calcium (Atorvastatin Calcium 40 Mg Tablet) 40 mg PO BEDTIME [facility] Last Admin: 12/08/21 21:47 Dose: 40 mg Documented by: Dextrose (Dextrose 50 % 25 Gm/50 Ml Vial) 25 gm IVPUSH Q15M PRN; Protocol PRN Reason: per Hypoglycemia Standing Ord. Divalproex Sodium (Divalproex Sodium 500 Mg Tablet.) 1,000 mg PO BEDTIME [facility] Last Admin: 12/09/21 21:17 Dose: 1,000 mg Documented by: Glucose (Glucose Gel 15 Gm Gel..Gram.) 15 gm PO Q15M PRN; Protocol PRN Reason: per Hypoglycemia Standing Ord. Haloperidol (Haloperidol 1 Mg Tablet) 2 mg PO BID [facility] Last Admin: 12/09/21 21:17 Dose: 2 mg Documented by: Hydroxyzine HCl (Hydroxyzine Hcl 25 Mg Tablet) 25 mg PO BEDTIME PRN PRN Reason: Anxiety Last Admin: 12/07/21 21:14 Dose: 25 mg Documented by: Insulin Glargine (Insulin Glargine,Hum.Rec.Anlog 100 Unit/Ml 10 Ml Vial) 48 unit SUBCUT DAILY [facility] Last Admin: 12/09/21 09:41 Dose: 48 unit Documented by: Insulin Human Lispro (Insulin Lispro 100 Unit/Ml 3 Ml Vial) 0 unit SUBCUT QIDACHS [facility]; Protocol Last Admin: 12/09/21 21:31 Dose: 4 unit Documented by: Lisinopril (Lisinopril 20 Mg Tablet) 20 mg PO DAILY [facility]; Protocol Last Admin: 12/09/21 09:41 Dose: 20 mg Documented by: Magnesium Hydroxide (Milk Of Magnesia 30 Ml Oral.Susp) 30 ml PO DAILY PRN PRN Reason: Constipation Omeprazole (Omeprazole 20 Mg Capsule.) 20 mg PO BID@0630,9221 [facility] Last Admin: 12/09/21 17:02 Dose: 20 mg Documented by: Pharmacy Consult (Consult Rx Perform Med Rec) 1 each MISCELLANE ONCE PRN PRN Reason: Consult order Trazodone HCl (Trazodone Hcl 100 Mg Tablet) 100 mg PO BEDTIME PRN PRN Reason: Insomnia Last Admin: 12/07/21 21:14 Dose: 100 mg Documented by: Allergies Allergies Allergy/AdvReac Type Severity Reaction Status Date / Time Penicillins Allergy Unknown Verified 12/02/21 19:30 Assessment & Plan Assessment & Plan (1) Bipolar I disorder with mood-incongruent psychotic features: Status: Acute Code(s): F31.9 - Bipolar disorder, unspecified Plan 12/09meeting pt for first time; presents with disorganized speech and behavior; will review further; may need med or dose change DC abilify as apparently ineffective for her psychosis. try higher potency D2 tita, haldol. DC buspar as not indicated. T/C adding wellbutrin for depression once it is demonstrated pt is tolerating haldol and benefiting from it. verify VPA at a proper serum level. otherwise continue current medications. obtain DC summaries from hospitals in [place]. collaborate with ELKE Lynn. plan discussed in detail with mich 12/06, mich agrees with plan. 12/07/2021: Continue current regimen and plans with increase of trazodone to 100 mg p.r.n. 12/08/2021: Continue current plans and regimen. I spent minutes with the patient and/or on the patient floor today, greater than?50% of which was spent counseling/coordinating care. Informed Consent: does not understand Reason for contiued inpatient stay Substantial Risk for: inability to function, rapid decompensation and med/psych decompensation
[2021-12-10 06:00] VITALS: BP 130/74; PULSE 88; RESP 16; TEMP 36.2; O2SAT 100
[2021-12-10 08:10] LABS: Glucose, Whole Blood 112 mg/dL (60-115)
[2021-12-10] MEDS: Insulin Glargine,Hum.rec.anlog 100 UNIT/ML 10 ML VIAL 48 UNIT SUBCUT (08:30)
[2021-12-10] MEDS: Acyclovir 200 MG CAPSULE 400 MG PO ×3 (08:47→21:03)
[2021-12-10] MEDS: amLODIPine Besylate 5 MG TABLET PO (08:48)
[2021-12-10] MEDS: lisinopriL 20 MG TABLET PO (08:48)
[2021-12-10] MEDS: HaloperidoL 5 MG TABLET PO (08:48)
[2021-12-10] MEDS: Omeprazole 20 MG CAPSULE.DR PO ×2 (08:53→17:02)
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
[2021-12-10 12:27] LABS: Glucose, Whole Blood 147 mg/dL (60-115)
[2021-12-10 17:31] LABS: Glucose, Whole Blood 229 mg/dL (60-115)
[2021-12-10] MEDS: Insulin Lispro 100 UNIT/ML 3 ML VIAL SUBCUT ×2 (17:34→21:03)
[2021-12-10 20:20] VITALS: BP 131/65; PULSE 90; TEMP 36.2; O2SAT 99
[2021-12-10 20:58] LABS: Glucose, Whole Blood 164 mg/dL (60-115)
[2021-12-10] MEDS: Atorvastatin Calcium 40 MG TABLET PO (21:03)
[2021-12-10] MEDS: Divalproex Sodium 500 MG TABLET.DR 1000 MG PO (21:03)
[2021-12-11] MEDS: Omeprazole 20 MG CAPSULE.DR PO ×2 (06:05→17:17)
[2021-12-11 06:42] LABS: Glucose, Whole Blood 119 mg/dL (60-115)
[2021-12-11 08:30] VITALS: BP 163/86; PULSE 99; TEMP 36.3
[2021-12-11] MEDS: amLODIPine Besylate 5 MG TABLET PO (08:48)
[2021-12-11] MEDS: Acyclovir 200 MG CAPSULE 400 MG PO ×3 (08:48→21:15)
[2021-12-11] MEDS: lisinopriL 20 MG TABLET PO (08:49)
[2021-12-11] MEDS: Insulin Glargine,Hum.rec.anlog 100 UNIT/ML 10 ML VIAL 48 UNIT SUBCUT (08:49)
[2021-12-11] MEDS: HaloperidoL 5 MG TABLET PO (08:49)
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
[2021-12-11 12:18] LABS: Glucose, Whole Blood 177 mg/dL (60-115)
[2021-12-11] MEDS: Insulin Lispro 100 UNIT/ML 3 ML VIAL SUBCUT ×2 (12:47→17:16)
[2021-12-11] MEDS: Acetaminophen 325 MG TABLET 650 MG PO (15:43)
[2021-12-11 17:17] LABS: Glucose, Whole Blood 303 mg/dL (60-115)
[2021-12-11 18:00] VITALS: BP 149/71; PULSE 85; TEMP 36.5; O2SAT 99
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
[2021-12-11 21:15] LABS: Glucose, Whole Blood 146 mg/dL (60-115)
[2021-12-11] MEDS: Milk of Magnesia 30 ML ORAL.SUSP PO (21:16)
[2021-12-11] MEDS: Divalproex Sodium 500 MG TABLET.DR 1000 MG PO (21:16)
[2021-12-11] MEDS: Atorvastatin Calcium 40 MG TABLET PO (21:16)
[2021-12-12] MEDS: Omeprazole 20 MG CAPSULE.DR PO ×2 (06:15→06:17)
[2021-12-12 06:49] LABS: Glucose, Whole Blood 106 mg/dL (60-115)
[2021-12-12] MEDS: HaloperidoL 5 MG TABLET PO (08:32)
[2021-12-12] MEDS: amLODIPine Besylate 5 MG TABLET PO (08:32)
[2021-12-12] MEDS: Acyclovir 200 MG CAPSULE 400 MG PO ×3 (08:32→21:06)
[2021-12-12] MEDS: lisinopriL 20 MG TABLET PO (08:32)
[2021-12-12] MEDS: Insulin Glargine,Hum.rec.anlog 100 UNIT/ML 10 ML VIAL 48 UNIT SUBCUT (08:40)
[2021-12-12 08:41] VITALS: BP 155/69; PULSE 87; RESP 18; TEMP 36.3; O2SAT 98
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
[2021-12-12 12:04] LABS: Glucose, Whole Blood 188 mg/dL (60-115)
[2021-12-12] MEDS: Insulin Lispro 100 UNIT/ML 3 ML VIAL SUBCUT ×3 (13:05→21:27)
[2021-12-12 16:29] LABS: Glucose, Whole Blood 223 mg/dL (60-115)
[2021-12-12 18:00] VITALS: BP 152/78; PULSE 103; RESP 18; TEMP 36; O2SAT 100
[2021-12-12] MEDS: traZODone HCL 100 MG TABLET PO (21:06)
[2021-12-12] MEDS: Divalproex Sodium 500 MG TABLET.DR 1000 MG PO (21:06)
[2021-12-12] MEDS: Atorvastatin Calcium 40 MG TABLET PO (21:06)
[2021-12-12] MEDS: hydrOXYzine HCL 25 MG TABLET PO (21:06)
[2021-12-12 21:17] LABS: Glucose, Whole Blood 244 mg/dL (60-115)
[2021-12-13] MEDS: Omeprazole 20 MG CAPSULE.DR PO ×2 (06:35→16:14)
[2021-12-13 06:59] LABS: Glucose, Whole Blood 113 mg/dL (60-115)
[2021-12-13] MEDS: HaloperidoL 5 MG TABLET PO (08:20)
[2021-12-13] MEDS: amLODIPine Besylate 5 MG TABLET PO (08:20)
[2021-12-13] MEDS: lisinopriL 20 MG TABLET PO (08:20)
[2021-12-13] MEDS: Acyclovir 200 MG CAPSULE 400 MG PO ×3 (08:20→20:00)
[2021-12-13] MEDS: Insulin Glargine,Hum.rec.anlog 100 UNIT/ML 10 ML VIAL 48 UNIT SUBCUT (08:22)
[2021-12-13 08:23] VITALS: BP 136/64; PULSE 90; RESP 18; TEMP 36.4; O2SAT 100
[2021-12-13 09:30] LABS: Ammonia 24 umol/L (13-55)
[2021-12-13 09:31] LABS: Alanine Aminotransferase 12 U/L (0-31); Albumin Level 3.9 g/dL (3.5-5.0); Alkaline Phosphatase 76 U/L (39-117); Aspartate Amino Transferase 10 U/L (5-31); Bilirubin Direct 0.2 mg/dL (0.0-0.5); Bilirubin Total 0.5 mg/dL (0.0-1.0); Total Protein 6.6 g/dL (6.5-8.0)
[2021-12-13 09:34] LABS: Estimated Average Glucose 180 mg/dL; Hemoglobin A1c % 7.9 %
[2021-12-13 09:36] LABS: Valproate 83.8 mcg/mL (50.0-100.0)
[2021-12-13 11:51] LABS: Glucose, Whole Blood 245 mg/dL (60-115)
[2021-12-13] MEDS: Insulin Lispro 100 UNIT/ML 3 ML VIAL SUBCUT ×3 (12:00→20:10)
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
[2021-12-13 16:28] LABS: Glucose, Whole Blood 214 mg/dL (60-115)
[2021-12-13 18:00] VITALS: BP 114/69; PULSE 90
[2021-12-13] MEDS: Atorvastatin Calcium 40 MG TABLET PO (19:59)
[2021-12-13] MEDS: Divalproex Sodium 500 MG TABLET.DR 1000 MG PO (20:00)
[2021-12-13] MEDS: clonazePAM 0.5 MG TABLET 0.25 MG PO (20:00)
[2021-12-13 20:03] LABS: Glucose, Whole Blood 201 mg/dL (60-115)
[2021-12-14 06:16] LABS: Glucose, Whole Blood 86 mg/dL (60-115)
[2021-12-14] MEDS: Omeprazole 20 MG CAPSULE.DR PO (06:30)
[2021-12-14 08:21] VITALS: BP 165/69; PULSE 80; TEMP 36.1
[2021-12-14] MEDS: clonazePAM 0.5 MG TABLET 0.25 MG PO ×2 (08:42→20:25)
[2021-12-14] MEDS: lisinopriL 20 MG TABLET PO (08:42)
[2021-12-14] MEDS: amLODIPine Besylate 5 MG TABLET PO (08:42)
[2021-12-14] MEDS: Acyclovir 200 MG CAPSULE 400 MG PO ×3 (08:42→20:25)
[2021-12-14] MEDS: HaloperidoL 5 MG TABLET PO (08:42)
[2021-12-14] MEDS: Insulin Glargine,Hum.rec.anlog 100 UNIT/ML 10 ML VIAL 48 UNIT SUBCUT (08:44)
[2021-12-14] MEDS: Acetaminophen 325 MG TABLET 650 MG PO (08:47)
[2021-12-14 12:33] LABS: Glucose, Whole Blood 146 mg/dL (60-115)
[2021-12-14 15:44] LABS: Glucose, Whole Blood 182 mg/dL (60-115)
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
[2021-12-14] MEDS: Insulin Lispro 100 UNIT/ML 3 ML VIAL SUBCUT ×2 (17:54→22:56)
[2021-12-14 18:00] VITALS: BP 128/77; PULSE 79; RESP 16; TEMP 35.9; O2SAT 98
[2021-12-14] MEDS: Divalproex Sodium 500 MG TABLET.DR 1000 MG PO (20:24)
[2021-12-14] MEDS: Atorvastatin Calcium 40 MG TABLET PO (20:25)
[2021-12-14 20:57] LABS: Glucose, Whole Blood 159 mg/dL (60-115)
[2021-12-15 06:27] LABS: Glucose, Whole Blood 67 mg/dL (60-115)
[2021-12-15 08:30] VITALS: BP 146/94; PULSE 98; TEMP 36.6
[2021-12-15] MEDS: Acyclovir 200 MG CAPSULE 400 MG PO ×3 (08:44→22:17)
[2021-12-15] MEDS: clonazePAM 0.5 MG TABLET 0.25 MG PO ×2 (08:45→22:16)
[2021-12-15] MEDS: amLODIPine Besylate 5 MG TABLET PO (08:45)
[2021-12-15] MEDS: Omeprazole 20 MG CAPSULE.DR PO ×2 (08:45→16:24)
[2021-12-15] MEDS: lisinopriL 20 MG TABLET PO (08:45)
[2021-12-15] MEDS: Insulin Glargine,Hum.rec.anlog 100 UNIT/ML 10 ML VIAL 48 UNIT SUBCUT (08:46)
[2021-12-15] MEDS: HaloperidoL 5 MG TABLET PO (08:47)
[2021-12-15 13:30] LABS: Glucose, Whole Blood 221 mg/dL (60-115)
[2021-12-15 16:48] LABS: Glucose, Whole Blood 197 mg/dL (60-115)
[2021-12-15] MEDS: Insulin Lispro 100 UNIT/ML 3 ML VIAL SUBCUT ×2 (17:25→22:18)
[2021-12-15 19:37] VITALS: BP 129/60; PULSE 79; TEMP 36.3
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
[2021-12-15 22:10] LABS: Glucose, Whole Blood 209 mg/dL (60-115)
[2021-12-15] MEDS: Atorvastatin Calcium 40 MG TABLET PO (22:16)
[2021-12-15] MEDS: Divalproex Sodium 500 MG TABLET.DR 1000 MG PO (22:17)
[2021-12-16] MEDS: Omeprazole 20 MG CAPSULE.DR PO ×2 (06:36→17:11)
[2021-12-16 06:38] LABS: Glucose, Whole Blood 144 mg/dL (60-115)
[2021-12-16 08:47] VITALS: BP 143/72; PULSE 81; TEMP 36.5
[2021-12-16] MEDS: Acyclovir 200 MG CAPSULE 400 MG PO ×3 (09:11→21:16)
[2021-12-16] MEDS: clonazePAM 0.5 MG TABLET 0.25 MG PO ×2 (09:11→21:18)
[2021-12-16] MEDS: Insulin Glargine,Hum.rec.anlog 100 UNIT/ML 10 ML VIAL 48 UNIT SUBCUT (09:12)
[2021-12-16] MEDS: amLODIPine Besylate 5 MG TABLET PO (09:12)
[2021-12-16] MEDS: HaloperidoL 5 MG TABLET PO (09:12)
[2021-12-16] MEDS: lisinopriL 20 MG TABLET PO (09:12)
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
[2021-12-16 12:26] LABS: Glucose, Whole Blood 213 mg/dL (60-115)
[2021-12-16] MEDS: Insulin Lispro 100 UNIT/ML 3 ML VIAL SUBCUT ×3 (12:54→21:20)
[2021-12-16 17:04] LABS: Glucose, Whole Blood 154 mg/dL (60-115)
[2021-12-16 17:15] VITALS: BP 140/77; PULSE 81; TEMP 36.3
[2021-12-16] MEDS: Acetaminophen 325 MG TABLET 650 MG PO (17:23)
[2021-12-16 21:09] LABS: Glucose, Whole Blood 200 mg/dL (60-115)
[2021-12-16] MEDS: Atorvastatin Calcium 40 MG TABLET PO (21:17)
[2021-12-16] MEDS: Divalproex Sodium 500 MG TABLET.DR 1000 MG PO (21:17)
[2021-12-16] MEDS: traZODone HCL 100 MG TABLET PO (21:26)
[2021-12-17 06:00] VITALS: BP 154/76; PULSE 125; RESP 14; TEMP 36.2; O2SAT 95
[2021-12-17] MEDS: Omeprazole 20 MG CAPSULE.DR PO (06:17)
[2021-12-17 08:14] LABS: Glucose, Whole Blood 151 mg/dL (60-115)
[2021-12-17] MEDS: amLODIPine Besylate 5 MG TABLET PO (09:33)
[2021-12-17] MEDS: HaloperidoL 5 MG TABLET PO (09:33)
[2021-12-17] MEDS: clonazePAM 0.5 MG TABLET 0.25 MG PO (09:33)
[2021-12-17] MEDS: Acyclovir 200 MG CAPSULE 400 MG PO ×2 (09:33→14:44)
[2021-12-17] MEDS: lisinopriL 20 MG TABLET PO (09:33)
[2021-12-17] MEDS: Insulin Glargine,Hum.rec.anlog 100 UNIT/ML 10 ML VIAL 48 UNIT SUBCUT (09:37)
[2021-12-17 11:14] VITALS: BP 128/80; PULSE 87; RESP 14; O2SAT 99
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
[2021-12-17 12:06] LABS: Glucose, Whole Blood 213 mg/dL (60-115)
[2021-12-17] MEDS: Insulin Lispro 100 UNIT/ML 3 ML VIAL SUBCUT (13:10)
== END 2021-12-17 17:32 | disposition home or self-care (01) | DRG 750 ==
LOC: HO.ED 12-05 18:56 → HO.PM5 12-05 22:23
PROVIDERS: Emergency Medicine; Admitting Provider Clinical Nurse Specialist Psychiatric/Mental Health, Adult; Emergency Provider Emergency Medicine; Visit Provider Psychiatry & Neurology Psychiatry
DX: F20.9 Schizophrenia, unspecified (principal); U07.1 COVID-19; E11.9 Type 2 diabetes mellitus without complications; K21.9 Gastro-esophageal reflux disease without esophagitis; E78.5 Hyperlipidemia, unspecified; F31.9 Bipolar disorder, unspecified; Z88.0 Allergy status to penicillin; Z79.4 Long term (current) use of insulin; Z79.899 Other long term (current) drug therapy
CPT/HCPCS: 36415; 70450; 80048; 80061; 80076; 80164; 81001; 81003; 82140; 82436; 82607; 82746; 82947; 83036; 83690; 83735; 84133; 84300; 84439; 84443; 85025; 87635; 93005; 96360; 96361; 99285

== ENCOUNTER 2021-12-28 07:44 | Outpatient (REF) | payer OTHER, SELFPAY ==
[2021-12-28 11:04] LABS: MANUAL DIFF FLAG NO
[2021-12-28 11:15] LABS: Basophils Percent Auto 0.4 % (0-2); Eosinophils Absolute Auto 0.1 X10*3/uL (0.0-0.4); Eosinophils Percent Auto 1.1 % (0-4); Hematocrit 39.3 % (37.0-47.0); Hemoglobin 12.4 g/dl (12.0-16.0); Imm Gran Abs Auto 0.02 X10*3/uL (0.00-0.03); Imm Gran Pct Auto 0.2 % (0.0-0.4); Lymphocytes Absolute Auto 3.5 X10*3/uL (1.2-4.9); Lymphocytes Percent Auto 43.4 % (20-40); Mean Corpuscular HGB Conc 31.6 g/dl (31.0-35.0); Mean Corpuscular Hemoglobin 27.1 pg (27.0-33.0); Mean Corpuscular Volume 85.8 fL (80.0-98.0); Mean Platelet Volume 10.9 fL (9.4-12.3); Monocytes Absolute Auto 0.5 X10*3/uL (0.1-1.2); Monocytes Percent Auto 5.8 % (2-11); Neutrophils Absolute Auto 3.9 x10*3/uL (2.0-8.3); Neutrophils Percent Auto 49.1 % (45-73); Platelet Count 278 X10*3/uL (160-400); Red Blood Count 4.58 X10*6/uL (4.20-5.50); Red Cell Distribution Width 15.2 % (11.0-16.0)
[2021-12-28 11:23] LABS: Alanine Aminotransferase 11 U/L (0-31); Albumin Level 3.8 g/dL (3.5-5.0); Alkaline Phosphatase 69 U/L (39-117); Anion Gap 16 (12-20); Aspartate Amino Transferase 11 U/L (5-31); Bilirubin Total 0.4 mg/dL (0.0-1.0); Blood Urea Nitrogen 14 mg/dL (9-16); Calcium 9.4 mg/dL (8.4-10.2); Carbon Dioxide 25 mmol/L (22-29); Chloride 102 mmol/L (96-108); Cholesterol 145 mg/dL; Estimated Average Glucose 174 mg/dL; Estimated Glomerular Filt Rate > 60; Glucose Fasting 102 mg/dL (60-99); HDL Cholesterol 74 mg/dL; Hemoglobin A1c % 7.7 %; LDL Cholesterol Calculated 58 mg/dl; Potassium 4.3 mmol/L (3.3-5.1); Sodium 139 mmol/L (135-145); Total Protein 6.4 g/dL (6.5-8.0); Triglycerides 69 mg/dL
[2021-12-28 11:49] LABS: TSH reflex Free T4 4.32 uIU/mL (0.32-4.0)
[2021-12-28 12:30] LABS: Free T4 (Free Thyroxine) 1.11 ng/dL (0.71-1.85)
[2021-12-29 14:14] LABS: Folate > 20.0 ng/mL (> or = 4.0); Vitamin B12 607 pg/mL (200-900)
[2022-01-03 13:16] LABS: Vitamin D 25-OH, D2 <4 ng/mL; Vitamin D 25-OH, D3 44 ng/mL; Vitamin D 25-OH, Total 44 ng/mL (30-100)
== END 2021-12-28 07:45 | disposition home or self-care (01) ==
LOC: HO.HMGCLDS 07:44
PROVIDERS: PCP Nurse Practitioner Acute Care; Visit Provider Nurse Practitioner Acute Care
DX: E11.9 Type 2 diabetes mellitus without complications (principal); I10 Essential (primary) hypertension; E87.1 Hypo-osmolality and hyponatremia
CPT/HCPCS: 36415; 80053; 80061; 82306; 82607; 82746; 83036; 84439; 84443; 85025

== ENCOUNTER 2022-02-10 11:39 | Outpatient (REF) | payer OTHER, SELFPAY ==
--- NOTE | ~2022-02-10 | MM_ITS ---
EXAMINATION: MM SCREENING DIGITAL BREAST TOMOSYNTHESIS, BILATERAL CLINICAL INFORMATION: Screening. Asymptomatic. Prior outside mammography from [place] are not available. Age 62. No known family history breast cancer. The lifetime risk of breast cancer based on the Tyrer-Cuzick Model is 5%. COMPARISON: None (current study represents new baseline exam). TECHNIQUE: Digital breast tomosynthesis is performed in both the craniocaudal and mediolateral oblique views along with computer-aided detection (CAD). Synthesized 2D images are generated from the tomosynthesis. FINDINGS: There are scattered areas of fibroglandular density (ACR BI-RADS breast composition Category b). There are no significant masses, abnormal calcifications, or other abnormalities. There is mild bilateral retroareolar duct ectasia. Scattered round and dermal calcifications present. The axilla are unremarkable. MM/MM tomosynthesis screening BI IMPRESSION: No mammographic evidence of malignancy. ASSESSMENT: BI-RADS 2: Benign RECOMMENDATION: Routine annual mammography screening. This patient's information was entered into a reminder system with a target due date for their next mammogram.
== END 2022-02-10 11:40 | disposition home or self-care (01) ==
LOC: HO.MAMMO 11:39
PROVIDERS: PCP Nurse Practitioner Acute Care; Visit Provider Internal Medicine
DX: Z12.31 Encounter for screening mammogram for malignant neoplasm of breast (principal)
CPT/HCPCS: 77063; 77067

== ENCOUNTER → 2022-03-21 08:24 | Outpatient (BNVA) | payer OTHER, SELFPAY | PROVIDERS: PCP Internal Medicine; Visit Provider Internal Medicine Endocrinology, Diabetes & Metabolism | DX: E03.9 Hypothyroidism, unspecified (principal) | CPT/HCPCS: 99202 ==

== ENCOUNTER 2022-04-03 13:05 | Outpatient (REF) | payer OTHER, SELFPAY ==
[2022-04-07 21:12] LABS: HPV mRNA E6/E7 rflx Not Detected (Not Detected)
== END 2022-04-03 13:06 | disposition home or self-care (01) ==
LOC: HO.LAB 13:05
PROVIDERS: Visit Provider Obstetrics & Gynecology
DX: Z12.4 Encounter for screening for malignant neoplasm of cervix (principal); Z11.51 Encounter for screening for human papillomavirus (HPV); B00.9 Herpesviral infection, unspecified; N90.89 Other specified noninflammatory disorders of vulva and perineum
CPT/HCPCS: 87624; 88142; 99202

== ENCOUNTER 2022-04-13 10:18 | Emergency (ER) | payer OTHER, SELFPAY ==
--- NOTE | ~2022-04-13 | XR_ITS ---
EXAMINATION: XR CHEST CLINICAL INFORMATION: Cough. Covid positive. COMPARISON: None TECHNIQUE: 2 views of the chest were obtained. FINDINGS: The lungs are clear. The cardiomediastinal silhouette is normal in size. There is no pleural effusion or pneumothorax. No acute osseous abnormality. XR/XR chest 2V IMPRESSION: No acute cardiopulmonary findings.
[2022-04-13 10:49] VITALS: BP 129/81; PULSE 88; RESP 16; TEMP 37.3; O2SAT 97; BMI 31.0
[2022-04-13 11:12] LABS: COVID-19 Test Positive (Negative); IDNOW Serial# 16C4AD1C
--- NOTE | 2022-04-13 11:39 | ED_ITS ---
HPI - URI/Sore Throat General Chief Complaint: Upper Respiratory Symptoms Stated Complaint: high fever, chest pain, cough Time Seen by Provider: 04/13/22 10:54 Source: patient Mode of arrival: ambulatory Limitations: no limitations History of Present Illness HPI Narrative: 62-year-old female with a history of insulin-dependent diabetes, high cholesterol, hypertension, schizophrenia, anxiety, depression, GERD presents with symptoms of cough, chest discomfort with coughing, back pain, tactile times, runny nose since Thursday. The patient tells me her sister is at home positive for COVID. She denies any abdominal pain, vomiting, diarrhea, skin rash, headache, neck pain or stiffness. Patient has received for COVID vaccinations. She had COVID in November of 2021. Related Data Home Medications Medication Instructions Recorded Confirmed True Metrix Glucose Meter 12/03/21 03/03/22 Previous Rx's Medication Instructions Recorded Gvoke HypoPen 2-Pack #1 ea 12/17/21 lancets 30 gauge (TRUEplus Lancets) #100 ea 12/17/21 pen needle, diabetic 31 gauge x #1,200 ea 12/17/21 5/16 (BD Ultra-Fine Short Pen Needle) flash glucose scanning reader #1 ea 12/23/21 (FreeStyle Sourav 14 Day [place]) flash glucose sensor (FreeStyle #1 ea 12/23/21 Sourav 14 Day Sensor kit) omeprazole 20 mg capsule,delayed 20 mg PO DAILY #90 caps 12/23/21 release True Metrix Pro Test Strip #200 ea 01/15/22 clonazepam 0.5 mg tablet 0.25 mg PO BID 30 days #15 tabs 01/15/22 atorvastatin 40 mg tablet 40 mg PO BEDTIME 30 days #30 tabs 01/22/22 haloperidol 5 mg tablet 5 mg PO DAILY 14 days #14 tabs 01/22/22 miscellaneous medical supply See Rx Instructions miscellaneous 01/22/22 .COMPLEX #2 ea furosemide 20 mg tablet 20 mg PO Q OTHER DAY #30 tabs 01/27/22 hydrochlorothiazide 12.5 mg tablet 12.5 mg PO DAILY #90 tabs 01/27/22 lisinopril 20 mg tablet 40 mg PO DAILY 90 days #180 tabs 01/27/22 mupirocin 2 % topical ointment 1 appl topical BID #22 grams 01/27/22 cetirizine 10 mg tablet 10 mg PO DAILY PRN allergy 03/03/22 symptoms #90 tabs insulin glargine 100 unit/mL (3 48 unit (0.48 mL) subcut DAILY #15 03/11/22 mL) subcutaneous pen (Lantus mL Solostar U-100 Insulin) trazodone 100 mg tablet 100 mg PO BEDTIME for insomnia #30 03/21/22 tabs acyclovir 400 mg tablet 400 mg PO TID 30 days #90 tabs 03/31/22 amlodipine 5 mg tablet 5 mg PO BID 30 days #60 tabs 03/31/22 divalproex 500 mg tablet,delayed 1,000 mg PO BEDTIME 30 days #60 03/31/22 release tabs Allergies Allergy/AdvReac Type Severity Reaction Status Date / Time shellfish derived Allergy Intermediate Swelling, Verified 04/03/22 12:48 Hives Penicillins Allergy Unknown Verified 04/03/22 12:48 Review of Systems Review of Systems: Yes all other systems are reviewed and are negative Constitutional: Constitutional: Reports no additional constitutional complaints, Denies body ache(s), Denies chills, Reports fever(s), Denies headache(s) and Denies weakness Eyes: Eyes: Reports no additional eye complaints and Denies change in vision ENT: Reports system reviewed and no additional complaints, except as documented, Denies dizziness, Denies headache(s), Denies nasal congestion, Reports nasal discharge and Denies neck pain Cardiovascular: Cardiovascular: Reports no additional cardiovascular com plaints, Reports chest pain, Denies leg edema and Denies dyspnea Respiratory: Respiratory: Reports no additional respiratory complaints, Reports cough and Denies dyspnea Gastrointestinal: Gastrointestinal: Reports no additional gastrointestinal complaints, Denies abdominal pain, Denies diarrhea, Denies nausea and Denies vomiting Genitourinary: Genitourinary: Reports no additional female genitourinary complaints and Denies urinary incontinence Musculoskeletal: Musculoskeletal: Reports no additional musculoskeletal complaints, Reports back pain, Denies arthralgias, Denies joint swelling, Denies neck pain, Denies numbness and Denies tingling Integumentary/Breasts: Skin/Breast: Reports system reviewed and no additional complaints, except as docu and Denies rash Neurologic: Reports system reviewed and no additional complaints, except as documented, Denies Abnormal speech present, Denies dizziness, Denies headache(s), Denies numbness, Denies tingling and Denies weakness PMFSH Past Medical History Attestation statement: The following information was validated with the patient. Source: old records reviewed and nursing notes reviewed Medical History Arthritis Depression Diabetes GERD (gastroesophageal reflux disease) HSV-2 (herpes simplex virus 2) infection HTN (hypertension) Hypercholesteremia Hyperlipemia Rheumatic fever Schizophrenia Surgical History History of 2 sections History of cystostomy Family History Family History Sister Age: 61 Osteoarthritis Mother Cancer of lymphatic and hematopoietic tissue, Onset Age: 83 COVID-19 Father FH: heart attack Brother FH: heart attack Other Diabetes HTN (hypertension) Mental health disorder Social History Social History Household Members: Family Household Members Other:: sister Housing: Apartment Do you presently have visiting nurse or other home services: No Unable to assess alcohol history related to: Unknown Alcohol intake: never Patient Tobacco Use Status: Never used Tobacco e-Cigarette/Vaping Use: Never Used Second Hand Smoke Exposure: No Advance Directives: Yes Advance Directives on File: Yes Advance Directives Date on File: 12/05/21 service: No Current occupational status: disabled Sexual orientation: Straight/Heterosexual Cognitive needs: Yes (walker) Hearing needs: No Vision needs: Yes (glasses) Physical Exam Vital Signs: Vital Signs: Last Vital Signs Temp 98.2 F 04/13/22 12:59 Pulse 70 04/13/22 12:59 Resp 18 04/13/22 12:59 BP 138/68 04/13/22 12:59 Pulse Ox 98 04/13/22 12:59 O2 Del Method 04/13/22 12:59 BMI result Body Mass Index 31.0 Const: General: cooperative, healthy appearing, comfortable and no acute distress Orientation/consciousness: patient oriented x3 Limitations: no limitations HEENT: Head: Yes normal to inspection Ears: hearing grossly normal bilaterally and TM's normal bilaterally General nose exam: Normal external nose present Face and sinus: Yes normal facial exam Mouth: Normal oral and palatal mucosa present Throat: Yes posterior oropharynx normal, Yes tonsils normal and Yes uvula midline Eyes: General: appearance normal, both eyes and all related structures Pupils: Equal, round and reactive pupils present Neck: Neck: Yes normal visual inspection, Yes full ROM, Yes no lymphadenopathy and Yes no meningeal signs Chest: Chest palpation & inspection: normal inspection of the chest Resp: Effort & Inspection: normal respiratory effort Auscultation: clear to auscultation bilaterally Cardio: Rate: regular rate Rhythm: regular rhythm Peripheral pulses: Peripheral pulses 2+ throughout GI: Inspection: Yes normal to inspection Palpation (GI): Soft to palpation and nontender Auscultation: normal bowel sounds Back/Spine/Pelvis: Thoracic/Lumbar Spine: thoracic and lumbar spine normal to inspection Skin: General skin exam: no rashes or lesions noted Neuro: General: patient oriented x3, no meningeal signs, no focal motor deficits and normal sensation to monofilament Cranial nerves: Yes Equal, round and reactive pupils present Cognition (Neuro): normal cognition Speech: No Abnormal speech present Gait exam (Neuro): Normal gait present Motor exam (neuro): 5/5 motor strength present throughout Extrem: General: Yes normal to inspection, Yes no pedal edema and Yes no calf tenderness Course Course Course Narrative: Labs are unremarkable. EKG shows no ischemia. Chest x-ray shows no acute finding. Patient has no hypoxia, no tachypnea. She speaking full sentences. Lungs are clear. Likely chest wall strain secondary to coughing. The family and I discussed current treatments for COVID available outpatient. The patient is on multiple antipsychotics which interact with Paxlovid. We also discussed monoclonal antibodies. Unfortunately the patient is on day 5 of illness and so it is not indicated. Will discharge home and recommend continue supportive care. Reviewed worrisome signs and symptoms of when to return to the emergency department. Comfortable discharge home. MDM - URI/Sore Throat MDM Narrative Medical decision making narrative: 62-year-old female here with URI symptoms including chest discomfort with coughing and back pain since Thursday. COVID screen from triage is positive. Patient has stable vital signs. She reports she has test discomfort described as discomfort with coughing only and upper back pain. No leg swelling or leg pain. Will check labs, EKG, chest x-ray. -consider pneumonia, PE (less likely with no hypoxia/tachypnea/clinical findings concerning for DVT and negative d-dimer) Medical Records Attestation: I reviewed the patient's medical records. Lab Data Attestation: I reviewed the patient's lab results. Result diagrams: 04/13/22 12:13 04/13/22 12:13 Labs: Lab Results 04/13/22 04/13/22 04/13/22 Range/Units 10:55 12:12 12:12 WBC (4.8-10.8) X10*3/uL RBC (4.20-5.50) X10*6/uL Hgb (12.0-16.0) g/dl Hct (37.0-47.0) % MCV (80.0-98.0) fL MCH (27.0-33.0) pg MCHC (31.0-35.0) g/dl RDW (11.0-16.0) % Plt Count (160-400) X10*3/uL MPV (9.4-12.3) fL Immature Gran % (Auto) (0.0-0.4) % Neut % (Auto) (45-73) % Lymph % (Auto) (20-40) % [place] % (Auto) (2-11) % Eos % (Auto) (0-4) % Baso % (Auto) (0-2) % Lymph # (Auto) (1.2-4.9) X10*3/uL [place] # (Auto) (0.1-1.2) X10*3/uL Eos # (Auto) (0.0-0.4) X10*3/uL Baso # (Auto) (0.0-0.2) X10*3/uL Abs Immat Gran (auto) (0.00-0.03) X10*3/uL Absolute Neuts (auto) (2.0-8.3) x10*3/uL Absolute Nucleated RBC (0.0-0.012) X10*3/uL Nucleated RBC % (auto) (0.0-0.2) /100WBC PT 11.2 (10.0-13.1) SEC INR 1.0 (0.9-1.1) D-Dimer High Sensitivty NG/ML Sodium (135-145) mmol/L Potassium (3.3-5.1) mmol/L Chloride (96-108) mmol/L Carbon Dioxide (22-29) mmol/L Anion Gap (12-20) BUN (9-16) mg/dL Creatinine (0.5-1.4) mg/dL Estim Creat Clear Calc Estimated GFR Random Glucose (60-115) mg/dL Calcium (8.4-10.2) mg/dL Magnesium (1.6-2.6) mg/dL Total Bilirubin (0.0-1.0) mg/dL Direct Bilirubin (0.0-0.5) mg/dL AST (5-31) U/L ALT (0-31) U/L Alkaline Phosphatase (39-117) U/L Troponin I High Sens (<3.5-17.0) ng/L B-Natriuretic Peptide 11 (<100) pg/mL Total Protein (6.5-8.0) g/dL Albumin (3.5-5.0) g/dL COVID-19 (DEVEN) Positive A (Negative) COVID-19 Clin Com See Note 04/13/22 04/13/22 04/13/22 Range/Units 12:13 12:13 12:13 WBC 6.4 (4.8-10.8) X10*3/uL RBC 4.92 (4.20-5.50) X10*6/uL Hgb 13.7 (12.0-16.0) g/dl Hct 42.1 (37.0-47.0) % MCV 85.6 (80.0-98.0) fL MCH 27.8 (27.0-33.0) pg MCHC 32.5 (31.0-35.0) g/dl RDW 13.6 (11.0-16.0) % Plt Count 327 (160-400) X10*3/uL MPV 10.4 (9.4-12.3) fL Immature Gran % (Auto) 0.5 H (0.0-0.4) % Neut % (Auto) 60.1 (45-73) % Lymph % (Auto) 31.9 (20-40) % [place] % (Auto) 6.1 (2-11) % Eos % (Auto) 1.1 (0-4) % Baso % (Auto) 0.3 (0-2) % Lymph # (Auto) 2.0 (1.2-4.9) X10*3/uL [place] # (Auto) 0.4 (0.1-1.2) X10*3/uL Eos # (Auto) 0.1 (0.0-0.4) X10*3/uL Baso # (Auto) 0.0 (0.0-0.2) X10*3/uL Abs Immat Gran (auto) 0.03 (0.00-0.03) X10*3/uL Absolute Neuts (auto) 3.8 (2.0-8.3) x10*3/uL Absolute Nucleated RBC 0.000 (0.0-0.012) X10*3/uL Nucleated RBC % (auto) 0.0 (0.0-0.2) /100WBC PT (10.0-13.1) SEC INR (0.9-1.1) D-Dimer High Sensitivty NG/ML Sodium 138 (135-145) mmol/L Potassium 4.4 (3.3-5.1) mmol/L Chloride 100 (96-108) mmol/L Carbon Dioxide 27 (22-29) mmol/L Anion Gap 15 (12-20) BUN 17 H (9-16) mg/dL Creatinine 0.88 (0.5-1.4) mg/dL Estim Creat Clear Calc 67.7 Estimated GFR > 60 Random Glucose 179 H (60-115) mg/dL Calcium 9.4 (8.4-10.2) mg/dL Magnesium 1.9 (1.6-2.6) mg/dL Total Bilirubin < 0.2 (0.0-1.0) mg/dL Direct Bilirubin < 0.2 (0.0-0.5) mg/dL AST 14 (5-31) U/L ALT 24 (0-31) U/L Alkaline Phosphatase 107 D (39-117) U/L Troponin I High Sens (<3.5-17.0) ng/L B-Natriuretic Peptide (<100) pg/mL Total Protein 7.2 (6.5-8.0) g/dL Albumin 4.1 (3.5-5.0) g/dL COVID-19 (DEVEN) (Negative) COVID-19 Clin Com 04/13/22 04/13/22 Range/Units 12:13 12:13 WBC (4.8-10.8) X10*3/uL RBC (4.20-5.50) X10*6/uL Hgb (12.0-16.0) g/dl Hct (37.0-47.0) % MCV (80.0-98.0) fL MCH (27.0-33.0) pg MCHC (31.0-35.0) g/dl RDW (11.0-16.0) % Plt Count (160-400) X10*3/uL MPV (9.4-12.3) fL Immature Gran % (Auto) (0.0-0.4) % Neut % (Auto) (45-73) % Lymph % (Auto) (20-40) % [place] % (Auto) (2-11) % Eos % (Auto) (0-4) % Baso % (Auto) (0-2) % Lymph # (Auto) (1.2-4.9) X10*3/uL [place] # (Auto) (0.1-1.2) X10*3/uL Eos # (Auto) (0.0-0.4) X10*3/uL Baso # (Auto) (0.0-0.2) X10*3/uL Abs Immat Gran (auto) (0.00-0.03) X10*3/uL Absolute Neuts (auto) (2.0-8.3) x10*3/uL Absolute Nucleated RBC (0.0-0.012) X10*3/uL Nucleated RBC % (auto) (0.0-0.2) /100WBC PT (10.0-13.1) SEC INR (0.9-1.1) D-Dimer High Sensitivty 234 NG/ML Sodium (135-145) mmol/L Potassium (3.3-5.1) mmol/L Chloride (96-108) mmol/L Carbon Dioxide (22-29) mmol/L Anion Gap (12-20) BUN (9-16) mg/dL Creatinine (0.5-1.4) mg/dL Estim Creat Clear Calc Estimated GFR Random Glucose (60-115) mg/dL Calcium (8.4-10.2) mg/dL Magnesium (1.6-2.6) mg/dL Total Bilirubin (0.0-1.0) mg/dL Direct Bilirubin (0.0-0.5) mg/dL AST (5-31) U/L ALT (0-31) U/L Alkaline Phosphatase (39-117) U/L Troponin I High Sens < 3.5 (<3.5-17.0) ng/L B-Natriuretic Peptide (<100) pg/mL Total Protein (6.5-8.0) g/dL Albumin (3.5-5.0) g/dL COVID-19 (DEVEN) (Negative) COVID-19 Clin Com Imaging Data Chest x-ray: Attestation: I personally reviewed and interpreted this imaging study as follows: Radiologist's impression: CLINICAL INFORMATION: Cough. Covid positive. COMPARISON: None TECHNIQUE: 2 views of the chest were obtained. FINDINGS: The lungs are clear. The cardiomediastinal silhouette is normal in size. There is no pleural effusion or pneumothorax. No acute osseous abnormality. XR/XR chest 2V IMPRESSION: No acute cardiopulmonary findings. ECG Data Attestation: I personally reviewed and interpreted this ECG as follows: ECG interpretation date: 04/13/22 ECG interpretation time: 12:47 Interpretation: Sinus bradycardia with a rate of 59, normal [place], normal QT Discharge Plan Discharge Clinical Impression: COVID-19 Patient Disposition: Home, Self-Care Instructions: COVID-19 (Coronavirus Disease 2019) (ED) Additional Instructions: Continue quarantine We discussed that since symptoms began Thursday it is too late for her to receive monoclonal antibodies. Additionally due to her medications she is not a candidate for Paxlovid Take Tylenol for pain or fever Increase fluids, rest For cough by sugar free cough medication [id number] Prescriptions: No Action clonazepam 0.5 mg tablet 0.25 mg PO BID 30 Days Qty: 15 0RF (DME) True Metrix Pro Test Strip Qty: 200 2RF Rx Instructions: As Directed, check blood sugars three times a day with meals, and at bed time. atorvastatin 40 mg tablet 40 mg PO BEDTIME 30 Days Qty: 30 0RF haloperidol 5 mg tablet 5 mg PO DAILY 14 Days Qty: 14 0RF miscellaneous medical supply Misc See Rx Instructions miscellaneous .COMPLEX Qty: 2 0RF Rx Instructions: Grab bars for shower miscellaneous; insulin glargine [Lantus Solostar U-100 Insulin] 100 unit/mL (3 mL) insulin pen 48 unit subcut DAILY Qty: 15 0RF trazodone 100 mg tablet 100 mg PO BEDTIME Qty: 30 0RF divalproex 500 mg tablet,delayed release (DR/EC) 1,000 mg PO BEDTIME 30 Days Qty: 60 0RF amlodipine 5 mg tablet 5 mg PO BID 30 Days Qty: 60 1RF acyclovir 400 mg tablet 400 mg PO TID 30 Days Qty: 90 0RF (DME) True Metrix Glucose Meter ? (DME) pen needle, diabetic [BD Ultra-Fine Short Pen Needle] 31 gauge x 5/16 Needle MISCELLANEOUS Qty: 1,200 0RF Rx Instructions: As Directed (DME) lancets [TRUEplus Lancets] 30 gauge [facility] MISCELLANEOUS Qty: 100 0RF Rx Instructions: As Directed (DME) Gvoke HypoPen 2-Pack pen injector See Rx Instructions .Route .MEDSUPPLY Qty: 1 1RF Rx Instructions: use when blood sugar is less than 40 lisinopril 20 mg tablet 40 mg PO DAILY 90 Days Qty: 180 0RF hydrochlorothiazide 12.5 mg tablet 12.5 mg PO DAILY Qty: 90 0RF furosemide 20 mg tablet 20 mg PO Q OTHER DAY Qty: 30 0RF mupirocin 2 % ointment 1 appl topical BID Qty: 22 0RF omeprazole 20 mg capsule,delayed release(DR/EC) 20 mg PO DAILY Qty: 90 2RF (DME) FreeStyle Sourav 14 Day Sensor Kit See Rx Instructions .Route Qty: 1 0RF Rx Instructions: As directed, 4 times a day, with meals, and at bedtime. (DME) FreeStyle Sourav 14 Day [place] Misc See Rx Instructions .ROUTE .MEDSUPPLY Qty: 1 0RF Rx Instructions: As directed, monitor BS 4 times a day, with meals, and at bedtime cetirizine 10 mg tablet 10 mg PO DAILY PRN (Reason: allergy symptoms) Qty: 90 0RF Referrals: Evelia Sweet MD [Primary Care Provider] - 5 days Interventions: ED Discharge Assessment Last Done: 04/13/22 13:32 Discharge Date/Time: 04/13/22 13:34 Print Language: Thai
[2022-04-13 12:32] LABS: MANUAL DIFF FLAG NO
--- NOTE | 2022-04-13 12:32 | ECG_ITS ---
Test Reason : UPPER RESPIRATORY Blood Pressure : / mmHG Vent. Rate : 059 BPM Atrial Rate : 059 BPM P-R Int : 150 ms QRS Dur : 100 ms QT Int : 442 ms P-R-T Axes : 049 -06 048 degrees QTc Int : 437 ms Sinus bradycardia Moderate voltage criteria for LVH, may be normal variant ( R in aVL , [place] product ) Borderline ECG When compared with ECG of 02-DEC-2021 21:57, No significant changes seen Referred By: Nayeli Dubon Electronically Signed By:ERIC CARDOZO
[2022-04-13 12:34] LABS: Basophils Percent Auto 0.3 % (0-2); Eosinophils Absolute Auto 0.1 X10*3/uL (0.0-0.4); Eosinophils Percent Auto 1.1 % (0-4); Hematocrit 42.1 % (37.0-47.0); Hemoglobin 13.7 g/dl (12.0-16.0); Imm Gran Abs Auto 0.03 X10*3/uL (0.00-0.03); Imm Gran Pct Auto 0.5 % (0.0-0.4); Lymphocytes Percent Auto 31.9 % (20-40); Mean Corpuscular HGB Conc 32.5 g/dl (31.0-35.0); Mean Corpuscular Hemoglobin 27.8 pg (27.0-33.0); Mean Corpuscular Volume 85.6 fL (80.0-98.0); Mean Platelet Volume 10.4 fL (9.4-12.3); Monocytes Absolute Auto 0.4 X10*3/uL (0.1-1.2); Monocytes Percent Auto 6.1 % (2-11); Neutrophils Absolute Auto 3.8 x10*3/uL (2.0-8.3); Neutrophils Percent Auto 60.1 % (45-73); Platelet Count 327 X10*3/uL (160-400); Red Blood Count 4.92 X10*6/uL (4.20-5.50); Red Cell Distribution Width 13.6 % (11.0-16.0); White Blood Count 6.4 X10*3/uL (4.8-10.8)
[2022-04-13 12:39] LABS: Prothrombin Time 11.2 SEC (10.0-13.1)
[2022-04-13 12:42] LABS: D Dimer High Sensitivity 234 NG/ML
[2022-04-13 12:53] LABS: Anion Gap 15 (12-20); Blood Urea Nitrogen 17 mg/dL (9-16); Calcium 9.4 mg/dL (8.4-10.2); Carbon Dioxide 27 mmol/L (22-29); Chloride 100 mmol/L (96-108); Creatinine Clr Calc Pharmacy 67.7; Estimated Glomerular Filt Rate > 60; Glucose Random 179 mg/dL (60-115); Potassium 4.4 mmol/L (3.3-5.1); Sodium 138 mmol/L (135-145)
[2022-04-13 12:59] VITALS: BP 138/68; PULSE 70; RESP 18; TEMP 36.8; O2SAT 98
[2022-04-13 13:00] LABS: Alanine Aminotransferase 24 U/L (0-31); Albumin Level 4.1 g/dL (3.5-5.0); Alkaline Phosphatase 107 U/L (39-117); Aspartate Amino Transferase 14 U/L (5-31); Bilirubin Direct < 0.2 mg/dL (0.0-0.5); Bilirubin Total < 0.2 mg/dL (0.0-1.0); Magnesium 1.9 mg/dL (1.6-2.6); Total Protein 7.2 g/dL (6.5-8.0); Troponin-I High Sensitivity < 3.5 ng/L (<3.5-17.0)
[2022-04-13 13:02] LABS: B Type Natriuretic Peptide 11 pg/mL (<100)
== END 2022-04-13 13:34 | disposition home or self-care (01) ==
PROVIDERS: Nurse Practitioner Family; Emergency Provider Emergency Medicine; PCP Internal Medicine
DX: U07.1 COVID-19 (principal); R50.9 Fever, unspecified; R07.89 Other chest pain; R05.9 Cough, unspecified; R06.02 Shortness of breath; Z79.899 Other long term (current) drug therapy
CPT/HCPCS: 36415; 71046; 80048; 80076; 83735; 83880; 84484; 85025; 85379; 85610; 87635; 93005; 99284

== ENCOUNTER 2022-04-30 09:43 | Outpatient (REF) | payer MEDICAID, SELFPAY ==
[2022-04-30 10:14] LABS: MANUAL DIFF FLAG NO
[2022-04-30 10:46] LABS: Basophils Percent Auto 0.4 % (0-2); Eosinophils Absolute Auto 0.1 X10*3/uL (0.0-0.4); Eosinophils Percent Auto 1.4 % (0-4); Hematocrit 38.6 % (37.0-47.0); Hemoglobin 12.4 g/dl (12.0-16.0); Imm Gran Abs Auto 0.02 X10*3/uL (0.00-0.03); Imm Gran Pct Auto 0.3 % (0.0-0.4); Lymphocytes Absolute Auto 2.7 X10*3/uL (1.2-4.9); Lymphocytes Percent Auto 35.7 % (20-40); Mean Corpuscular HGB Conc 32.1 g/dl (31.0-35.0); Mean Corpuscular Hemoglobin 27.6 pg (27.0-33.0); Mean Corpuscular Volume 85.8 fL (80.0-98.0); Mean Platelet Volume 10.4 fL (9.4-12.3); Monocytes Absolute Auto 0.5 X10*3/uL (0.1-1.2); Monocytes Percent Auto 6.7 % (2-11); Neutrophils Absolute Auto 4.2 x10*3/uL (2.0-8.3); Neutrophils Percent Auto 55.5 % (45-73); Platelet Count 358 X10*3/uL (160-400); Red Cell Distribution Width 13.5 % (11.0-16.0); White Blood Count 7.6 X10*3/uL (4.8-10.8)
[2022-04-30 10:53] LABS: Estimated Average Glucose 154 mg/dL
[2022-04-30 11:32] LABS: Alanine Aminotransferase 11 U/L (0-31); Alkaline Phosphatase 71 U/L (39-117); Anion Gap 17 (12-20); Aspartate Amino Transferase 8 U/L (5-31); Bilirubin Total 0.3 mg/dL (0.0-1.0); Blood Urea Nitrogen 17 mg/dL (9-16); Calcium 9.4 mg/dL (8.4-10.2); Carbon Dioxide 29 mmol/L (22-29); Chloride 99 mmol/L (96-108); Cholesterol 252 mg/dL; Estimated Glomerular Filt Rate 59; Glucose Fasting 167 mg/dL (60-99); HDL Cholesterol 80 mg/dL; LDL Cholesterol Calculated 145 mg/dl; Potassium 4.5 mmol/L (3.3-5.1); Sodium 140 mmol/L (135-145); Total Protein 6.7 g/dL (6.5-8.0); Triglycerides 139 mg/dL
[2022-04-30 11:36] LABS: Free T4 (Free Thyroxine) 1.03 ng/dL (0.71-1.85); Thyroid Stimulating Hormone 2.66 uIU/mL (0.32-4.0)
[2022-05-01 10:17] LABS: Thyroid Peroxidase Antibodies <1 IU/mL (<9)
[2022-05-04 15:57] LABS: Vitamin D 25-OH, D2 4 ng/mL; Vitamin D 25-OH, D3 53 ng/mL; Vitamin D 25-OH, Total 57 ng/mL (30-100)
== END 2022-04-30 09:44 | disposition home or self-care (01) ==
LOC: HO.LAB 09:43
PROVIDERS: Nurse Practitioner Acute Care; PCP Internal Medicine; Visit Provider Internal Medicine Endocrinology, Diabetes & Metabolism
DX: E03.9 Hypothyroidism, unspecified (principal); E11.9 Type 2 diabetes mellitus without complications; I10 Essential (primary) hypertension; Z79.4 Long term (current) use of insulin
CPT/HCPCS: 36415; 80053; 80061; 82306; 83036; 84439; 84443; 85025; 86376

== ENCOUNTER 2022-07-03 09:35 | Outpatient (REF) | payer MEDICAID, SELFPAY | END 2022-07-03 09:36 | disposition home or self-care (01) | LOC: HO.LNP 09:35 | PROVIDERS: PCP Internal Medicine; Visit Provider Obstetrics & Gynecology | DX: N90.89 Other specified noninflammatory disorders of vulva and perineum (principal) | CPT/HCPCS: 56605; 88305; 88312; 99212 ==

== ENCOUNTER 2022-07-27 15:15 | Emergency (ER) | payer MEDICARE, MEDICAID, SELFPAY ==
--- NOTE | ~2022-07-27 | XR_ITS ---
EXAMINATION: XR CHEST CLINICAL INFORMATION: Question pneumonia COMPARISON: Chest x-ray 10/14/2021 TECHNIQUE: Frontal view of the chest was obtained. FINDINGS: The lungs are clear. No airspace consolidation, pleural effusion, or pneumothorax. The cardiomediastinal silhouette is within normal limits. No acute osseous injury. XR/XR chest 1V IMPRESSION: No acute pulmonary process.
[2022-07-27 16:44] VITALS: BP 160/76; PULSE 91; RESP 18; TEMP 36.2; O2SAT 97; BMI 30.1
[2022-07-27 16:53] LABS: Influenza A PCR NEGATIVE (Negative); Influenza B PCR NEGATIVE (Negative); Resp Syncy Virus RNA Qual PCR NEGATIVE (Negative); SARS COV2 PCR INHOUSE NEGATIVE (Negative)
[2022-07-27 19:33] VITALS: BP 188/81; PULSE 79; RESP 18; O2SAT 98
[2022-07-27] MEDS: oxyCODONE HCl Immed Release 5 MG TABLET PO (23:00)
[2022-07-27] MEDS: Ketorolac Tromethamine 30 MG/ML VIAL IM (23:01)
--- NOTE | 2022-07-28 00:05 | ED_ITS ---
HPI - General Adult General Chief complaint: Upper Respiratory Symptoms Stated complaint: congested and fever Time Seen by Provider: 07/27/22 20:31 Source: patient Mode of arrival: ambulatory Limitations: no limitations History of Present Illness HPI narrative: 62-year-old female presents to ED for bilateral shoulder and bilateral hip pain. Patient has history of arthritis, depression, anxiety, and hypertension. Patient denies any trauma, chest pain, shortness of breath, headache, dizziness, fever, chills, coughing up blood. Patient states history of arthritis in her joints by her primary care provider has not given her any pain meds. Patient denies congestion and fever Related Data Home Medications Medication Instructions Recorded Confirmed True Metrix Glucose Meter 12/03/21 03/03/22 Previous Rx's Medication Instructions Recorded lancets 30 gauge (TRUEplus Lancets) #100 ea 12/17/21 pen needle, diabetic 31 gauge x #1,200 ea 12/17/21 5/16 (BD Ultra-Fine Short Pen Needle) flash glucose scanning reader #1 ea 12/23/21 (FreeStyle Sourav 14 Day [place]) flash glucose sensor (FreeStyle #1 ea 12/23/21 Sourav 14 Day Sensor kit) omeprazole 20 mg capsule,delayed 20 mg PO DAILY #90 caps 12/23/21 release True Metrix Pro Test Strip #200 ea 01/15/22 clonazepam 0.5 mg tablet 0.25 mg PO BID 30 days #15 tabs 01/15/22 atorvastatin 40 mg tablet 40 mg PO BEDTIME 30 days #30 tabs 01/22/22 haloperidol 5 mg tablet 5 mg PO DAILY 14 days #14 tabs 01/22/22 miscellaneous medical supply See Rx Instructions miscellaneous 01/22/22 .COMPLEX #2 ea furosemide 20 mg tablet 20 mg PO Q OTHER DAY #30 tabs 01/27/22 hydrochlorothiazide 12.5 mg tablet 12.5 mg PO DAILY #90 tabs 01/27/22 mupirocin 2 % topical ointment 1 appl topical BID #22 grams 01/27/22 cetirizine 10 mg tablet 10 mg PO DAILY PRN allergy 03/03/22 symptoms #90 tabs insulin glargine 100 unit/mL (3 48 unit (0.48 mL) subcut DAILY #15 03/11/22 mL) subcutaneous pen (Lantus mL Solostar U-100 Insulin) trazodone 100 mg tablet 100 mg PO BEDTIME for insomnia #30 03/21/22 tabs nirmatrelvir 300 mg (150 mg 3 tab PO PER PKG DIR 5 days #30 04/15/22 x2)-ritonavir 100 mg tablet,dose tabs pack(EUA) (Paxlovid) acyclovir 400 mg tablet 400 mg PO TID 30 days #90 tabs 04/29/22 amlodipine 5 mg tablet 5 mg PO BID 30 days #60 tabs 04/29/22 lisinopril 20 mg tablet 40 mg PO DAILY 90 days #180 tabs 06/09/22 divalproex 500 mg tablet,delayed 1,000 mg PO BEDTIME 30 days #60 06/15/22 release tabs ketorolac 10 mg tablet 10 mg PO QID PRN pain 5 days #20 07/28/22 tabs prednisone 20 mg tablet 40 mg PO DAILY 5 days #10 tabs 07/28/22 Allergies Allergy/AdvReac Type Severity Reaction Status Date / Time shellfish derived Allergy Intermediate Swelling, Verified 07/27/22 16:43 Hives penicillin G [Penicillin G] Allergy Mild RASH Unverified 07/27/22 16:02 penicillin V Allergy Unknown rash, Unverified 09/30/21 13:27 swelling Penicillins Allergy Unknown Verified 07/27/22 16:43 Review of Systems Review of Systems: Bilateral shoulder and bilateral hip pain. History of arthritis. Pain on moving Yes all other systems are reviewed and are negative PMFSH Past Medical History Medical History Arthritis Depression Diabetes GERD (gastroesophageal reflux disease) HSV-2 (herpes simplex virus 2) infection HTN (hypertension) Hypercholesteremia Hyperlipemia Rheumatic fever Schizophrenia Surgical History History of 2 sections History of cystostomy Family History Family History Sister Age: 61 Osteoarthritis Mother Cancer of lymphatic and hematopoietic tissue, Onset Age: 83 COVID-19 Father FH: heart attack Brother FH: heart attack Other Diabetes HTN (hypertension) Mental health disorder Social History Social History Household Members: Family Household Members Other:: sister Housing: Apartment Do you presently have visiting nurse or other home services: No Unable to assess alcohol history related to: Unknown Alcohol intake: never Patient Tobacco Use Status: Never used Tobacco e-Cigarette/Vaping Use: Never Used Second Hand Smoke Exposure: No Advance Directives: No Advance Directives Information Provided: Yes Advance Directives Date on File: 12/05/21 service: No Current occupational status: disabled Sexual orientation: Straight/Heterosexual Cognitive needs: Yes (walker) Hearing needs: No Vision needs: Yes (glasses) Physical Exam ED Vital Signs: Vital Signs - 24 hr 07/27/22 16:02 07/27/22 19:33 Temperature 98.5 F Pulse Rate 93 79 Respiratory Rate 18 18 Blood Pressure 188/81 H Pulse Oximetry 97 98 Oxygen Delivery Method Room Air Room Air BMI result Body Mass Index 30.2 Const General: cooperative, healthy appearing, comfortable, no acute distress, well developed, alert and Physically active Orientation/consciousness: oriented to person, oriented to place, oriented to time and patient oriented x3 HENMT Head: Yes normal to inspection, Yes No palpable skull fracture present, Yes normocephalic, Yes atraumatic and No abrasion Eyes General: appearance normal, both eyes and all related structures Neck Neck: Yes normal visual inspection, Yes full ROM, Yes no lymphadenopathy, Yes no meningeal signs, Yes trachea midline, Yes supple, No anterior neck swelling and No tender Chest Chest palpation & inspection: normal inspection of the chest and normal palpation of entire chest wall Resp Effort & Inspection: normal respiratory effort and able to speak in complete sentences Auscultation: clear to auscultation bilaterally Cardio Jugular venous distension: no JVD Heart sounds: S1 normal heart sound present and S2 normal heart sound present GI Inspection: Yes normal to inspection and No abdominal wall ecchymosis Palpation (GI): Soft to palpation, not firm, nontender, no guarding and not rigid General: No CVA tenderness and Yes no CVA tenderness Back/Spine/Pelvis Back: no CVA tenderness, No CVA tenderness and No back tenderness Skin General skin exam: no rashes or lesions noted and elasticity normal Neuro General: oriented to person, oriented to place, oriented to time, patient oriented x3, gait normal, tone normal, Normal light touch and pain sensation, no meningeal signs and CN's II-XI intact bilaterally Extrem General: Yes normal to inspection and Yes full ROM Shoulder/upper arm images: 1. Positive for shoulder tenderness on palpation. Patient has complete range of motion of shoulder but with pain. Negative for swelling of extremity, ecchymosis, crepitus, deformity. Motor/neuro/vascular exam intact 2. Positive for shoulder tenderness on palpation. Patient has complete range of motion of shoulder but with pain. Negative for swelling of extremity, ecchymosis, redness crepitus, deformity. Motor/neuro/vascular exam intact Upper/lower leg/hip images: 1. Positive for pain on range of motion is slight tenderness on palpation. Negative for crepitus, deformity, ecchymosis, erythema. femoral pulse intact. Motor/neuro/vascular exam of lower extremity intact 2. Positive for pain on range of motion is slight tenderness on palpation. Negative for crepitus, deformity, ecchymosis, erythema. femoral pulse intact. Motor/neuro/vascular exam of lower extremity intact Psych Appearance: grossly normal, well kempt and not disheveled Course Course Course Narrative: Chest x-ray and SARS was ordered for evaluation. Reevaluation(s) Reevaluation #1: History physical exam indicate arthritic exacerbation. Not suspect any cardiac or traumatic injury. Patient denies any trauma complete range of motion of all extremities. Patient will be discharged. Patient states pain resolved with oxycodone and Toradol. Time: 00:16 Medical Decision Making MDM Narrative Medical decision making narrative: Arthirits Lab Data Labs: Lab Results 07/27/22 Range/Units 16:09 Influenza Type A (PCR) NEGATIVE (Negative) Influenza Type B (PCR) NEGATIVE (Negative) RSV RNA Qual (PCR) NEGATIVE (Negative) SARS-CoV-2 RNA (RT-PCR) NEGATIVE (Negative) Discharge Plan Discharge Clinical Impression: Arthritis Patient Disposition: Home, Self-Care Instructions: Osteoarthritis (ED) Additional Instructions: S?ntomas debido a la artritis. Las pruebas de COVID, RSV y Flu en la arteria resultaron negativas. Se le antionette? de parish con analg?sicos. por favor, charles un seguimiento con estrada atenci?n primaria. Regrese al servicio de urgencias de inmediato si tiene fiebre, escalofr?os, incapacidad para caminar, incapacidad p franco varnish remover las extremidades superiores, dolor en el pecho, dificultad para respirar, dolor en la april?bula, dolor en el priyanka, par?lisis de las extremidades inferiores, incontinencia urinaria/incontinencia intestinal o cualquier otro s?ntoma preocupante. Prescriptions: New ketorolac 10 mg tablet 10 mg PO QID PRN (Reason: pain) 5 Days Qty: 20 0RF Rx Instructions: received toradol 30mg in the ED prednisone 20 mg tablet 40 mg PO DAILY 5 Days Qty: 10 0RF No Action clonazepam 0.5 mg tablet 0.25 mg PO BID 30 Days Qty: 15 0RF (DME) True Metrix Pro Test Strip Qty: 200 2RF Rx Instructions: As Directed, check blood sugars three times a day with meals, and at bed time. atorvastatin 40 mg tablet 40 mg PO BEDTIME 30 Days Qty: 30 0RF Hold Instructions: Doctor's Order haloperidol 5 mg tablet 5 mg PO DAILY 14 Days Qty: 14 0RF miscellaneous medical supply Misc See Rx Instructions miscellaneous .COMPLEX Qty: 2 0RF Rx Instructions: Grab bars for shower miscellaneous; insulin glargine [Lantus Solostar U-100 Insulin] 100 unit/mL (3 mL) insulin pen 48 unit subcut DAILY Qty: 15 0RF trazodone 100 mg tablet 100 mg PO BEDTIME Qty: 30 0RF Hold Instructions: Doctor's Order Paxlovid (EUA) 300 mg (150 mg x 2)-100 mg tablet 3 tab PO PER PKG DIR 5 Days Qty: 30 0RF amlodipine 5 mg tablet 5 mg PO BID 30 Days Qty: 60 1RF acyclovir 400 mg tablet 400 mg PO TID 30 Days Qty: 90 0RF lisinopril 20 mg tablet 40 mg PO DAILY 90 Days Qty: 180 0RF divalproex 500 mg tablet,delayed release (DR/EC) 1,000 mg PO BEDTIME 30 Days Qty: 60 0RF (DME) True Metrix Glucose Meter ? (DME) pen needle, diabetic [BD Ultra-Fine Short Pen Needle] 31 gauge x 5/16 Needle MISCELLANEOUS Qty: 1,200 0RF Rx Instructions: As Directed (DME) lancets [TRUEplus Lancets] 30 gauge Misc MISCELLANEOUS Qty: 100 0RF Rx Instructions: As Directed hydrochlorothiazide 12.5 mg tablet 12.5 mg PO DAILY Qty: 90 0RF furosemide 20 mg tablet 20 mg PO Q OTHER DAY Qty: 30 0RF mupirocin 2 % ointment 1 appl topical BID Qty: 22 0RF omeprazole 20 mg capsule,delayed release(DR/EC) 20 mg PO DAILY Qty: 90 2RF (DME) FreeStyle Sourav 14 Day Sensor Kit See Rx Instructions .Route Qty: 1 0RF Rx Instructions: As directed, 4 times a day, with meals, and at bedtime. (DME) FreeStyle Sourav 14 Day [place] Mis See Rx Instructions .ROUTE .MEDSUPPLY Qty: 1 0RF Rx Instructions: As directed, monitor BS 4 times a day, with meals, and at bedtime cetirizine 10 mg tablet 10 mg PO DAILY PRN (Reason: allergy symptoms) Qty: 90 0RF Referrals: [facility] [Primary Care Provider] - (JOint pain. osteoarthritis) Interventions: ED Discharge Assessment Last Done: 07/28/22 00:54 Discharge Date/Time: 07/28/22 00:55 Print Language: Danish
[2022-07-28 00:13] VITALS: BP 178/72; PULSE 62; RESP 15; TEMP 36.6; O2SAT 96
[2022-07-28 00:48] VITALS: BP 178/72; PULSE 61; RESP 20
[2022-07-28] MEDS: clonazePAM 0.5 MG TABLET PO (00:49)
== END 2022-07-28 00:55 | disposition home or self-care (01) ==
PROVIDERS: Student in an Organized Health Care Education/Training Program; Emergency Provider Emergency Medicine
DX: R50.9 Fever, unspecified (principal); R06.02 Shortness of breath; M25.512 Pain in left shoulder; M25.511 Pain in right shoulder; M25.552 Pain in left hip; M25.551 Pain in right hip; Z20.822 Contact with and (suspected) exposure to COVID-19; Z79.899 Other long term (current) drug therapy
CPT/HCPCS: 0241U; 71045; 96372; 99284; J1885

== ENCOUNTER → 2022-07-31 08:53 | Outpatient (BNVA) | payer MEDICAID, SELFPAY | PROVIDERS: Visit Provider Obstetrics & Gynecology | DX: N90.89 Other specified noninflammatory disorders of vulva and perineum (principal) | CPT/HCPCS: 99212 ==

== ENCOUNTER → 2022-10-21 10:54 | Outpatient (BNVA) | payer MEDICAID, SELFPAY | PROVIDERS: PCP Nurse Practitioner Acute Care; Referring Provider Nurse Practitioner Acute Care; Visit Provider Internal Medicine | DX: R94.31 Abnormal electrocardiogram [ECG] [EKG] (principal); I10 Essential (primary) hypertension; E78.00 Pure hypercholesterolemia, unspecified; E11.9 Type 2 diabetes mellitus without complications; Z79.4 Long term (current) use of insulin | CPT/HCPCS: 93005; 99202 ==

== ENCOUNTER 2023-02-23 08:28 | Outpatient (REF) | payer MEDICAID, SELFPAY ==
--- NOTE | ~2023-02-23 | MM_ITS ---
EXAMINATION: MM SCREENING DIGITAL BREAST TOMOSYNTHESIS, BILATERAL CLINICAL INFORMATION: Screening. Asymptomatic. The lifetime risk of breast cancer based on the Tyrer-Cuzick Model is 4%. COMPARISON: Mammography: 02/10/2022 (new baseline) TECHNIQUE: Digital breast tomosynthesis is performed in both the craniocaudal and mediolateral oblique views along with computer-aided detection (CAD). Synthesized 2D images are generated from the tomosynthesis. FINDINGS: There are scattered areas of fibroglandular density (ACR BI-RADS breast composition Category b). There are no significant masses, abnormal calcifications, or other abnormalities. Parenchymal pattern is similar to prior new baseline exam. No architectural abnormality. Again, there is mild bilateral retroareolar duct ectasia and scattered bilateral benign round and dermal calcifications. The skin contours are smooth. MM/MM tomosynthesis screening BI IMPRESSION: No mammographic evidence of malignancy. ASSESSMENT: BI-RADS 2: Benign RECOMMENDATION: Routine annual mammography screening. This patient's information was entered into a reminder system with a target due date for their next mammogram.
== END 2023-02-23 08:29 | disposition home or self-care (01) ==
LOC: HO.MAMMO 08:28
PROVIDERS: PCP Internal Medicine; Visit Provider Internal Medicine
DX: Z12.31 Encounter for screening mammogram for malignant neoplasm of breast (principal)
CPT/HCPCS: 77063; 77067

== ENCOUNTER 2023-03-31 09:25 | Outpatient (AMB) | payer OTHER, SELFPAY ==
--- NOTE | 2023-03-31 09:29 | MHC.OFFVIS ---
Intake Vital Signs 03/31/23 09:31 Height 5 ft 6 in Weight 185 lb 3.013 oz BMI 29.9 BP 140/70 H Blood Pressure Location Lt brachial Position Sitting Pulse 82 Intake Visit Reasons: fc/up after echo/stress Intake Note: fc/after echo/stress patient has leg swelling Escrow Processor Required: Yes Escrow Processor Name: nader salas [id number] Allergies shellfish derived Allergy (Intermediate, Verified 03/31/23 09:54) Swelling, Hives penicillin G [Penicillin G] Allergy (Mild, Verified 03/31/23 09:54) RASH penicillin V Allergy (Unknown, Verified 03/31/23 09:54) rash, swelling Penicillins Allergy (Verified 03/31/23 09:54) Unknown Medication List - Last Reconciled 03/31/23 by PARRIS Head acyclovir 400 mg PO TID 30 days amitriptyline mg PO amlodipine 5 mg PO BID 30 days atorvastatin 10 mg PO DAILY blood pressure monitor (Blood Pressure Kit) As directed divalproex 1,000 mg (2 x 500 mg) PO BEDTIME 30 days divalproex ER 1,000 mg PO BEDTIME flash glucose scanning reader ([employer] Sourav 14 Day [place]) As directed, monitor BS 4 times a day, with meals, and at bedtime flash glucose sensor ([employer] and [employer] Sourav 14 Day Sensor kit) As directed, 4 times a day, with meals, and at bedtime. furosemide 20 mg PO Q OTHER DAY haloperidol 5 mg PO DAILY 14 days hydrochlorothiazide 12.5 mg PO DAILY insulin glargine (Lantus Solostar U-100 Insulin) 48 units (0.48 mL) subcut DAILY ketorolac 10 mg PO QID PRN 5 days lancets (TRUEplus Lancets) As Directed lisinopril 40 mg (2 x 20 mg) PO DAILY 90 days miscellaneous medical supply Grab bars for shower miscellaneous; mupirocin 2% 1 appl topical BID nirmatrelvir-ritonavir 300 mg (150 mg x 2)-100 mg (Paxlovid) 3 tabs PO PER PKG DIR 5 days omeprazole 20 mg PO DAILY pen needle, diabetic (BD Ultra-Fine Short Pen Needle) As Directed prednisone 40 mg (2 x 20 mg) PO DAILY 5 days ropinirole 0.5 mg PO BID trazodone 100 mg PO BEDTIME [True Metrix Glucose Meter ] [True Metrix Pro Test Strip As Directed, check blood sugars three times a day with meals, and at bed time. ] HPI fc/up after echo/stress HPI Details Bessie is a 63-year-old female with past medical history of hypertension, hyperlipidemia, diabetes, abnormal EKG with septal Q-waves was recently seen in Cardiology and echocardiogram and stress test were ordered. Patient did not complete the test as she says she was not called. Today she reports she has been doing well since her last visit in September. She does report some upper back discomfort and swelling in her lower legs. She denies chest discomfort at rest or with activity. She denies shortness of breath, PND, orthopnea. No dizziness, presyncope, syncope. She says she manages her medication by herself then goes to a daycare program each day. She reports living alone. Previously her daughter was the contact for her test scheduling. Patient now reports having her own phone and gave us the number for easier contact. 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 HTN (hypertension) Hypercholesteremia Hyperlipemia Hypertension Osteoporosis Rheumatic fever Schizophrenia Surgical History History of 2 sections History of cystostomy History of tubal ligation Family History Sister Age: 62 Osteoarthritis Mother Cancer of lymphatic and hematopoietic tissue, Onset Age: 83 COVID-19 Father FH: heart attack Brother FH: heart attack Other Diabetes HTN (hypertension) Mental health disorder Social History Household Members: Family Household Members Other:: sister Housing: Apartment Do you presently have visiting nurse or other home services: No Unable to assess alcohol history related to: Unknown Alcohol intake: never Patient Tobacco Use Status: Never used Tobacco e-Cigarette/Vaping Use: Never Used Second Hand Smoke Exposure: No Advance Directives Date on File: 12/05/21 service: No Current occupational status: disabled Sexual orientation: Straight/Heterosexual Cognitive needs: Yes (walker) Hearing needs: No Vision needs: Yes (glasses) Female Reproductive History Menstrual Age of Menarche: 12 Review of Systems Const All systems reviewed & are unremarkable except as noted in HPI and below ENT Reports dizziness Card Denies chest pain, Denies chest pain at rest, Denies chest pain with activity, Denies rapid heart rate, Denies pedal edema, Denies edema, Denies leg edema, Denies lightheadedness, Denies palpitations, Denies dyspnea, Denies dyspnea on exertion and Denies orthopnea Resp Denies cough, Denies dyspnea and Denies dyspnea on exertion GI Denies hematochezia and Denies change in stool character Musc Details: Swelling in lower legs - upper back soreness/ disom Denies abnormal gait, Reports limited range of motion, Reports muscle cramps, Denies muscle weakness, Denies numbness, Denies radiating pain into limb, Denies stiffness and Denies tingling Neuro Denies abnormal gait, Reports dizziness, Denies numbness and Denies tingling Endo Denies palpitations Physical Exam Vital Signs: Last Vital Signs Pulse 82 03/31/23 09:31 BP 140/70 H 03/31/23 09:31 BMI result Body Mass Index 29.9 Const General: cooperative, comfortable and no acute distress Orientation/consciousness: patient oriented x3 Neck Neck: Yes normal visual inspection Resp Effort & Inspection: normal respiratory effort Auscultation: clear to auscultation bilaterally, no crackles, no rales, no rhonchi and no wheezes Cardio Jugular venous distension: no JVD Rate: regular rate Rhythm: regular rhythm Heart sounds: S1 normal heart sound present, S2 normal heart sound present, no murmurs and no rubs Skin Other: soft mildly pitting edema of lower legs, ankle, feet Neuro General: patient oriented x3 Psych Appearance: grossly normal Mental Status: mental status grossly normal Speech and movement: Normal speech and movement present Office Procedures EKG Details: Today, read by me, NSR, no acute ST/ T ab, septal Q which is same as prior EKG, rate 82 [id number], Complete Assessment & Plan Assessment & Plan (1) Abnormal EKG: Code(s): R94.31 - Abnormal electrocardiogram [ECG] [EKG] Plan: EKGs show sinus rhythm with septal Q-wave. No known prior cardiac history. Cardiac risks of hypertension, hyperlipidemia, diabetes, family history. No anginal sounding symptoms. On last visit echo and stress test were ordered however not completed. Patient gave us a new phone number for her and we will be able to reach her for scheduling of these tests. At this time will proceed with echocardiogram and stress test as planned. On exam she does have bilateral lower leg and ankle edema. Records indicate she is on Lasix 20 mg every other day. Explained to her using computer typesetter that she has to take Lasix every day until swelling resolves then could resume every other day. cardiology follow-up in 3 months, sooner if needed. (2) HTN (hypertension): Code(s): I10 - Essential (primary) hypertension Qualifiers: Hypertension type: primary hypertension Qualified Code(s): I10 - Essential (primary) hypertension Plan: Mildly elevated when 1st checked today at 140/70. She was running late for this appointment. Blood pressure improved down to 128/74 on recheck. Will have her continue amlodipine, hydrochlorothiazide, lisinopril. Increasing Lasix temporarily as above (3) Bilateral leg edema: Code(s): R60.0 - Localized edema (4) Hypercholesteremia: Code(s): E78.00 - Pure hypercholesterolemia, unspecified Plan: ideal LDL goal less than 70 in patient with diabetes. labs done on 04/30/2022 shows LDL 145. She has upcoming visit with her PCP and anticipates labs prior to then. Continue atorvastatin (5) Diabetes: Code(s): E11.9 - Type 2 diabetes mellitus without complications Plan: hemoglobin A1c goal less than 7. Followed by PCP. Orders: Orders NM cardiolite stress test Today R94.31 - Abnormal electrocardiogram [ECG] [EKG] Coding Level of Care Code Est Pt Level 4 (23649) Diagnoses Abnormal EKG R94.31 HTN (hypertension) I10 Hypertension type: primary hypertension Bilateral leg edema R60.0 Hypercholesteremia E78.00 Diabetes E11.9 CPT Codes EKG - CPT: 53184-[id number], Complete ([id number]) Time Spent (min) 26 Comment Chart review, documentation, interview assessed
[2023-03-31 09:31] VITALS: BP 140/70; PULSE 82; BMI 29.9
== END 2023-03-31 10:22 | disposition home or self-care (01) ==
PROVIDERS: PCP Internal Medicine; Referring Provider Nurse Practitioner Acute Care; Visit Provider Nurse Practitioner Family
DX: R94.31 Abnormal electrocardiogram [ECG] [EKG] (principal); I10 Essential (primary) hypertension; R60.0 Localized edema; E78.00 Pure hypercholesterolemia, unspecified; E11.9 Type 2 diabetes mellitus without complications
CPT/HCPCS: 93010; 99214

== ENCOUNTER → 2023-03-31 09:25 | Outpatient (BNVA) | payer OTHER, SELFPAY | PROVIDERS: PCP Internal Medicine; Referring Provider Nurse Practitioner Acute Care; Visit Provider Nurse Practitioner Family | DX: R94.31 Abnormal electrocardiogram [ECG] [EKG] (principal); I10 Essential (primary) hypertension; R60.0 Localized edema; E78.00 Pure hypercholesterolemia, unspecified; E11.9 Type 2 diabetes mellitus without complications | CPT/HCPCS: 93005; 99212 ==

== ENCOUNTER → 2023-04-13 08:53 | Outpatient (REF) | payer OTHER, SELFPAY ==
--- NOTE | ~2023-04-13 | NM_ITS ---
Lexiscan Myocardial perfusion study Indication: Coronary artery disease, assess for ischemia Technique: The patient was brought in for a Lexiscan perfusion study on 04/13/2023 and was injected 0.4 mg of Lexiscan intravenously. Within a minute of this injection 25 mCi of sestamibi was given intravenously. Images were obtained using the SPECT gamma camera interlaced with the gating device. Images were obtained in supine position. Resting perfusion study was performed on 04/15/2023. Patient was administered 25 mCi of sestamibi intravenously at rest. Images were then obtained in supine position. Total DLP 166mGy-cm. Images were processed with the software and compared side to side in short axis, horizontal long axis and vertical long axis views. Findings: Raw acquisition reviewed. Arms by the patient's side. The stress perfusion study showed no significant perfusion abnormality. Both uncorrected as well as CT attenuation corrected images were reviewed. The gated study shows normal LV systolic function with calculated LVEF of 64%. LV cavity is normal in size. The gated study shows normal wall thickening and contraction of segments. Resting study shows no significant perfusion abnormality. Gating at rest reveals normal wall motion with ejection fraction at 61%. The findings are consistent with no reversible or fixed perfusion abnormality. NM/NM cardiolite stress test Impression: 1. Myocardial perfusion imaging study shows normal myocardial perfusion. 2. Gated LVEF is 54% during stress and 61% during rest. 3. Transient ischemic dilatation not present. EKG component of the test reported separately.
--- NOTE | 2023-04-13 08:56 | CA_ITS ---
Acquisition Time: 2023-04-13 09:35:59 Total Exercise Time: 00:02:00 Test Indications: CAD Medications: AMLODIPINE ATORVASTATIN LISINOPRIL INSULIN Protocol: LEXISCAN Max HR: 116 BPM 74% of Pred: 156 BPM Max BP: 140/080 mmHG Max Work Load: 1.0 METS Pharmacological stress test with Lexiscan injection while sitting and kicking her legs, without anginal symptoms, without arrhythmias, with normotensive response to injection, with downloping ST lead 2 & 3. Nuclear images pending. Aminophylline 75mg IVp given to reverse Lexiscan. Test reviewed with Dr. Avila. Referred By: Willian Alfonso Overread By: Meka Bailey
== END ==
LOC: HO.CARD 08:53
PROVIDERS: PCP Internal Medicine; Visit Provider Internal Medicine
DX: I25.10 Atherosclerotic heart disease of native coronary artery without angina pectoris (principal); R94.31 Abnormal electrocardiogram [ECG] [EKG]
CPT/HCPCS: 78452; 93017; A9500; J0280; J2785

== ENCOUNTER → 2023-04-13 08:56 | Outpatient (BNV) | payer OTHER, SELFPAY | PROVIDERS: PCP Internal Medicine; Visit Provider Nurse Practitioner | DX: I25.10 Atherosclerotic heart disease of native coronary artery without angina pectoris (principal) | CPT/HCPCS: 78452; 93016; 93018 ==

== ENCOUNTER 2023-05-13 08:39 | Outpatient (AMB) | payer OTHER, SELFPAY ==
--- NOTE | 2023-05-13 08:41 | MHC.PC.OV ---
Vital Signs 05/13/23 08:42 05/13/23 09:25 Height 5 ft 6 in Weight 183 lb BMI 29.5 BP 150/90 H 150/90 H Blood Pressure Location Lt brachial Lt brachial Position Sitting Sitting Intake Visit Reasons: Transfer of care from [facility] Note: Patient here transferring of care Infrastructure Technician Required: No Accompanied by: Self / Same As Patient Allergies shellfish derived Allergy (Intermediate, Verified 05/13/23 09:01) Swelling, Hives penicillin G [Penicillin G] Allergy (Mild, Verified 05/13/23 09:01) RASH penicillin V Allergy (Unknown, Verified 05/13/23 09:01) rash, swelling Penicillins Allergy (Verified 05/13/23 09:01) Unknown Medication List - Last Reconciled 05/13/23 by Evelia Donald MD acyclovir 400 mg PO TID 30 days amitriptyline mg PO amlodipine 5 mg PO BID 30 days atorvastatin 10 mg PO DAILY blood pressure monitor (Blood Pressure Kit) As directed divalproex ER 1,000 mg PO BEDTIME dulaglutide (Trulicity) mg subcut flash glucose scanning reader ([employer] Sourav 14 Day [place]) As directed, monitor BS 4 times a day, with meals, and at bedtime flash glucose sensor ([employer] Sourav 14 Day Sensor kit) As directed, 4 times a day, with meals, and at bedtime. furosemide 20 mg PO Q OTHER DAY hydrochlorothiazide 12.5 mg PO DAILY insulin glargine (Lantus Solostar U-100 Insulin) 48 units (0.48 mL) subcut DAILY lancets (TRUEplus Lancets) As Directed lisinopril 40 mg (2 x 20 mg) PO DAILY 90 days miscellaneous medical supply Grab bars for shower miscellaneous; omeprazole 20 mg PO DAILY pen needle, diabetic (BD Ultra-Fine Short Pen Needle) As Directed ropinirole 0.5 mg PO BID trazodone 100 mg PO BEDTIME [True Metrix Glucose Meter ] [True Metrix Pro Test Strip As Directed, check blood sugars three times a day with meals, and at bed time. ] Tobacco use date assessed: 05/13/23 Fall risk assessment: No Falls in past year Last assessed Fall Risk: 05/13/23 Dental Screening Dental Screen Date: 05/13/23 Did you have a dental visit in the last 12 months?: Yes Did you have a dental problem in the last 6 months where you did not have access to dental care?: No Was dental information given to patient?: Patient has dentist HPI HPI Comments History of Present Illness Details This is a 63-year-old female with diabetes mellitus type 2 on long-term current use of insulin, hypertension, hypercholesterolemia and mild major depression that comes today for follow-up on her conditions. A1c within goal. Blood pressure elevated but she admits that she ran out of medications for the last 3 weeks. Lipid panel will be order and her LDL goal is less than 70. Depression stable with medications and this is follow by Psychiatry. Walks with a walker for gait stability. No chest pain or shortness of breath. [facility] Medical History Arthritis Cancer of left breast Depression Diabetes Diabetes GERD (gastroesophageal reflux disease) History of blood clot in brain HSV-2 (herpes simplex virus 2) infection HTN (hypertension) Hypercholesteremia Hyperlipemia Hypertension Osteoporosis Rheumatic fever Schizophrenia Surgical History History of 2 sections History of cystostomy History of tubal ligation Family History Sister Age: 62 Osteoarthritis Mother Cancer of lymphatic and hematopoietic tissue, Onset Age: 83 COVID-19 Father FH: heart attack Brother FH: heart attack Other Diabetes HTN (hypertension) Mental health disorder Social History Household Members: Family Household Members Other:: sister Housing: Apartment Do you presently have visiting nurse or other home services: No Unable to assess alcohol history related to: Unknown Alcohol intake: never Patient Tobacco Use Status: Never used Tobacco e-Cigarette/Vaping Use: Never Used Second Hand Smoke Exposure: No Advance Directives Date on File: 12/05/21 service: No Current occupational status: disabled Sexual orientation: Straight/Heterosexual Cognitive needs: Yes (walker) Hearing needs: No Vision needs: Yes (glasses) Female Reproductive History Menstrual Age of Menarche: 12 Questionnaire PHQ-9 Over the last 2 weeks, how often have you been bothered by any of the following problems? 1. Little interest or pleasure in doing things: not at all 2. Feeling down, depressed, or hopeless: not at all 3. Trouble falling or staying asleep, or sleeping too much: not at all 4. Feeling tired or having little energy: not at all 5. Poor appetite or overeating: not at all 6. Feeling bad about yourself - or that you are a failure or have let yourself or your family down: not at all 7. Trouble concentrating on things, such as reading the newspaper or watching television: not at all 8. Moving or speaking so slowly that other people could have noticed. Or the opposite - being so fidgety or restless that you have been moving around a lot more than usual: not at all 9. Thoughts that you would be better off or of hurting yourself in some way: not at all Total score: 0 Depression Screening Interpretation: Negative 92659 - PHQ-9 Billing: Yes Source: Developed by Drs. Rajendra Gutierrez, Juanita Junior, Tyson Mike and colleagues, with an educational otis from [employer]. Thrive Questionnaire Date Thrive assessed: 05/13/23 I am a: Patient What is your living situation today?: I have a steady place to live Within the past 12 months, did the food you bought not last and you didn't have the money to get more?: Never true Within the past 12 months, did you worry whether your food would run out before you got money to buy more?: Never true Do you have trouble paying for medicines?: No Do you have trouble getting transportation to medical appointments?: No Do you have trouble paying your heating and electricity bill?: No Do you have trouble taking care of your child, family member or friend?: No Do you have trouble with day-to-day activities such as bathing, preparing meals, shopping, managing finances, etc.?: No Are you currently unemployed and looking for a job?: No Are you interested in more education?: No Please select the resources that you would like help with: None Currently or been in a relationship where the following occur: no concerns reported AUDIT C Alcohol Use Questionnaire (AUDIT-C) 1. How often do you have a drink containing alcohol?: Never Total Score: 0 Score Reviewed/Action Taken: No ÓSCAR-7 AMB Questionnaire ÓSCAR-7 Date ÓSCAR - 7 assessed: 05/13/23 Feeling nervous, anxious, or on edge: 1 = Several days Not being able to stop or control worryin = Not at all Worrying too much about different things: 1 = Several days Trouble relaxin = Not at all Being so restless that it is hard to sit still: 0 = Not at all Becoming easily annoyed or irritable: 0 = Not at all Feeling afraid as if something awful might happen: 0 = Not at all Total ÓSCAR-7 score (0-4 normal; 5-9 mild; 10-14 moderate; 15-21 severe): 2 Source: Developed by Drs. Rajendra Gutierrez, Juanita Junior, Tyson Mike and colleagues, with an educational otis from [employer]. ÓSCAR-7 Assessment Billing ÓSCAR-7 Assessment Tool: ÓSCAR-7 Assessment 76112 Review of Systems Const All systems reviewed & are unremarkable except as noted in HPI and below Eyes Reports no additional complaints, Denies change in vision and Denies other visual disturbances Card Denies chest pain at rest, Denies chest pain with activity, Denies edema, Denies irregular heart rhythm, Denies claudication, Denies dyspnea, Denies dyspnea on exertion, Denies orthopnea, Denies paroxysmal nocturnal dyspnea and Denies slow heart rate Resp Denies cough, Denies dyspnea and Denies dyspnea on exertion GI Denies abdominal pain, Denies change in bowel habits, Denies excessive flatus, Denies nausea and Denies vomiting Denies urinary incontinence, Denies urinary hesitancy and Denies urinary urgency Musc Denies abnormal gait, Denies atrophy, Denies deformity and Denies limited range of motion Skin/Breast Denies bleeding lesions, Denies changing lesions and Denies rash Neuro Denies abnormal gait and Denies lack of coordination Physical exam (Primary Care) Vital Signs: Last Vital Signs BP 150/90 H 05/13/23 08:42 BMI result Body Mass Index 29.5 Tobacco/Smoking Status: Tobacco use Status Tobacco use date assessed 05/13/23 05/13/23 08:57 Patient Tobacco Use Status Never used Tobacco 05/13/23 08:57 e-Cigarette/Vaping Use Never Used 05/13/23 08:57 PHQ-9: PHQ-9 Score PHQ-9: Total score 0 08/23/23 09:07 Depression Screening Interpretation: Negative Thrive Assessment: Date of Thrive Assessment Date Thrive assessed 05/13/23 05/13/23 08:57 Currently or been in a relationship where the following occur: no concerns reported Const Limitations: ambulation with walker Eyes General: appearance normal, both eyes and all related structures Eyelids: Yes eyelids normal Conjunctivae: conjunctivae normal Neck Neck: Yes normal visual inspection and Yes supple Resp Effort & Inspection: normal respiratory effort Auscultation: clear to auscultation bilaterally Cardio Jugular venous distension: no JVD Rate: regular rate Rhythm: regular rhythm Heart sounds: S1 normal heart sound present and S2 normal heart sound present Extrem General: Yes full ROM Results AMB Hemoglobin A1c AMB Hemoglobin A1c 6.9 % Last Edit by MCKENNA Saenz on 05/13/23 09:10 Assessment and Plan Assessment & Plan (1) Diabetes mellitus, type II, insulin dependent: Code(s): E11.9 - Type 2 diabetes mellitus without complications; Z79.4 - salvage determiner (current) use of insulin Plan: Continue insulin. A1c goal is equal or less than 7%. (2) Mild major depression: Code(s): F32.0 - Major depressive disorder, single episode, mild Plan: Continue amitriptyline. Follow-up with psychiatry. (3) HTN (hypertension): Code(s): I10 - Essential (primary) hypertension Qualifiers: Hypertension type: primary hypertension Qualified Code(s): I10 - Essential (primary) hypertension Plan: Restart amlodipine. Blood pressure goal is equal or less than 130/80. Recheck blood pressure with nurse navigator in 3 weeks. (4) Hypercholesteremia: Code(s): E78.00 - Pure hypercholesterolemia, unspecified Plan: Continue statins. Repeat lipid panel. LDL goal is less than 70. Orders: Orders Lipid Panel Today E78.5 - Hyperlipidemia, unspecified Vitamin B12 and Folate Today E53.8 - Deficiency of other specified B group vitamins Vitamin D 25-OH Total Today E55.9 - Vitamin D deficiency, unspecified Microalbumin, Random (w Creat) Today E11.9 - Type 2 diabetes mellitus without complications Comprehensive [place]. Panel Fast Today E11.9 - Type 2 diabetes mellitus without complications, Z79.4 - residential (current) use of insulin Complete Blood Count Auto Diff Today K21.9 - Gastro-esophageal reflux disease without esophagitis AMB Hemoglobin A1c Today E11.9 - Type 2 diabetes mellitus without complications Thyroid Stimulating Hormone Today E03.9 - Hypothyroidism, unspecified Referrals Podiatry Referral E11.9 - Type 2 diabetes mellitus without complications, Z79.4 - salvage determiner (current) use of insulin Medications: New dulaglutide (Trulicity) 0.75 mg (0.5 mL) subcut QWEEK 6.5 mL 1RF 90 days [assure [place] test strips] Use 1 test strip three times a day 100 ea 11RF E11.9 - Type 2 diabetes mellitus without complications Changed From amitriptyline PO To amitriptyline 10 mg PO BEDTIME 90 tabs 1RF 90 days From amlodipine 5 mg PO BID 30 days 60 tabs 1RF I10 - Essential (primary) hypertension To amlodipine 5 mg PO BID 180 tabs 1RF 90 days I10 - Essential (primary) hypertension From atorvastatin 10 mg PO DAILY To atorvastatin 10 mg PO DAILY 90 tabs 1RF 90 days From divalproex ER 1,000 mg PO BEDTIME To divalproex ER 1,000 mg (2 x 500 mg) PO BEDTIME 180 tabs 1RF 90 days From hydrochlorothiazide 12.5 mg PO DAILY To hydrochlorothiazide 12.5 mg PO DAILY 90 caps 1RF 90 days From insulin glargine (Lantus Solostar U-100 Insulin) 48 units (0.48 mL) subcut DAILY 15 mL 0RF To insulin glargine (Lantus Solostar U-100 Insulin) 48 units (0.48 mL) subcut DAILY 43.2 mL 1RF 90 days From ropinirole 0.5 mg PO BID To ropinirole 0.5 mg (2 x 0.25 mg) PO BID 360 tabs 1RF 90 days Refilled furosemide 20 mg PO Q OTHER DAY 30 tabs 0RF R60.0 - Localized edema lisinopril 40 mg (2 x 20 mg) PO DAILY 180 tabs 0RF 90 days I10 - Essential (primary) hypertension omeprazole 20 mg PO DAILY 90 caps 2RF K21.9 - Gastro-esophageal reflux disease without esophagitis pen needle, diabetic (BD Ultra-Fine Short Pen Needle) As Directed 1,200 ea 0RF DM E11.9 - Type 2 diabetes mellitus without complications Coding Level of Care Code Est Pt Level 4 (21798) Diagnoses Diabetes mellitus, type II, insulin dependent E11.9; Z79.4 Mild major depression F32.0 HTN (hypertension) I10 Hypertension type: primary hypertension Hypercholesteremia E78.00 Additional Codes ÓSCAR-7 Assessment Billing - ÓSCAR-7 Assessment Tool: ÓSCAR-7 Assessment 72062 ([id number]) Time Spent (min) 24
[2023-05-13 08:42] VITALS: BP 150/90; BMI 29.5
[2023-05-13 09:25] VITALS: BP 150/90
== END 2023-05-13 09:13 | disposition home or self-care (01) ==
PROVIDERS: PCP Internal Medicine; Visit Provider Internal Medicine
DX: E11.9 Type 2 diabetes mellitus without complications (principal); Z79.4 Long term (current) use of insulin; F32.0 Major depressive disorder, single episode, mild; I10 Essential (primary) hypertension; E78.00 Pure hypercholesterolemia, unspecified
CPT/HCPCS: 83036; 99214

== ENCOUNTER 2023-05-28 09:47 | Outpatient (AMB) | payer OTHER, SELFPAY ==
[2023-05-28 10:14] VITALS: BP 124/68
--- NOTE | 2023-05-28 10:14 | A.OFFVIS_ITS ---
Intake Vital Signs 05/28/23 10:14 Height 5 ft 6 in Weight 186 lb BMI 30.0 BP 124/68 Intake Visit Reasons: Bladder pressure Xerox Machine Operator Required: Yes Xerox Machine Operator Language: Museum Exhibit Technician Name: Guillermina Pro Information Interpreted: non-clinical & clinical Livestock Farmworker: Livestock Farmworker Present (Guillermina) Allergies shellfish derived Allergy (Intermediate, Verified 05/28/23 10:14) Swelling, Hives penicillin G [Penicillin G] Allergy (Mild, Verified 05/28/23 10:14) RASH penicillin V Allergy (Unknown, Verified 05/28/23 10:14) rash, swelling Penicillins Allergy (Verified 05/28/23 10:14) Unknown Is last menstrual period known: No Post menopausal: Yes Patient : No HPI HPI Comments History of Present Illness Details Presenting complaining of urinary frequency and urgency over the last month, no associated dysuria or urinary incontinence. 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 Hypercholesteremia HSV-2 (herpes simplex virus 2) infection Arthritis Rheumatic fever Schizophrenia GERD (gastroesophageal reflux disease) Depression HTN (hypertension) Hyperlipemia Diabetes Surgical History History of tubal ligation History of cystostomy History of 2 sections Family History Sister Age: 62 Osteoarthritis Mother Cancer of lymphatic and hematopoietic tissue, Onset Age: 83 COVID-19 Father FH: heart attack Brother FH: heart attack Other Diabetes HTN (hypertension) Mental health disorder Social History Household Members: Family Household Members Other:: sister Housing: Apartment Do you presently have visiting nurse or other home services: No Unable to assess alcohol history related to: Unknown Alcohol intake: never Patient Tobacco Use Status: Never used Tobacco e-Cigarette/Vaping Use: Never Used Second Hand Smoke Exposure: No Advance Directives Date on File: 12/05/21 Patient : No service: No Current occupational status: disabled Sexual orientation: Straight/Heterosexual Cognitive needs: Yes (walker) Hearing needs: No Vision needs: Yes (glasses) Female Reproductive History Menstrual Age of Menarche: 12 Review of Systems Const All systems reviewed & are unremarkable except as noted in HPI and below Physical Exam Vital Signs: Last Vital Signs BP 124/68 05/28/23 10:14 BMI result Body Mass Index 30.0 General: Yes no CVA tenderness External Female Exam: normal external appearance and normal appearance of the urethra Speculum Exam - Vagina: normal appearance of the vagina, normal palpation, no lesions and no masses Speculum Exam - Cervix: normal appearance of the cervix, normal palpation, no lesions, no masses and nontender Bimanual exam- vagina & uterus: normal bimanual exam, normal palpation, uterine size normal, normal palpation, uterine shape normal, No Cervical tenderness present and non-tender Bimanual Exam- Adnexa, other: normal adnexae Back/Spine/Pelvis Back: no CVA tenderness Results AMB Urinalysis, Automated UA Leukoctes 0 [place]/uL Last Edit by Cheng Serrano [facility] on 05/28/23 10:16 UA Nitrite Negative Last Edit by Cheng Serrano [facility] on 05/28/23 10:16 UA Urobilinogen 0 mg/dL Last Edit by Cheng Serrano [facility] on 05/28/23 10:16 UA Protein 0 mg/dL Last Edit by Cheng Serrano [facility] on 05/28/23 10:16 UA pH 7 Last Edit by Cheng Serrano [facility] on 05/28/23 10:16 UA Blood 0 [place]/uL Last Edit by Cheng Serrano [facility] on 05/28/23 10:16 UA Specific [employer] 1.010 Last Edit by Cheng Serrano [facility] on 05/28/23 10: 16 UA Ketone Negative Last Edit by Cheng Serrano [facility] on 05/28/23 10:16 UA Bilirubin 0 mg/dL Last Edit by Cheng Serrano [facility] on 05/28/23 10:16 UA Glucose 0 mg/dL Last Edit by Cheng Serrano [facility] on 05/28/23 10:16 Assessment & Plan Assessment & Plan (1) Urinary frequency: Comment: With urgency Code(s): R35.0 - Frequency of micturition Plan: Urine dip done in the office was negative. This discussed with the patient differential diagnosis of urinary frequency urgency, refer to urology for further management. All questions answered, the patient verbalized understanding Orders: Orders AMB Urinalysis Automated Today R39.89 - Other symptoms and signs involving the genitourinary system Referrals Urology Referral R35.0 - Frequency of micturition Coding Level of Care Code Est Pt Level 3 (67272) Diagnoses Urinary frequency R35.0
== END 2023-05-28 10:19 | disposition home or self-care (01) ==
PROVIDERS: PCP Internal Medicine; Visit Provider Obstetrics & Gynecology
DX: R39.89 Other symptoms and signs involving the genitourinary system (principal); R35.0 Frequency of micturition
CPT/HCPCS: 99213

== ENCOUNTER → 2023-05-28 09:47 | Outpatient (BNVA) | payer OTHER, SELFPAY | PROVIDERS: PCP Internal Medicine; Visit Provider Obstetrics & Gynecology | DX: R35.0 Frequency of micturition (principal); R39.89 Other symptoms and signs involving the genitourinary system | CPT/HCPCS: 81003; 99212 ==

== ENCOUNTER 2023-06-02 08:33 | Outpatient (REF) | payer OTHER, SELFPAY ==
--- NOTE | ~2023-06-02 | XR_ITS ---
EXAMINATION: XR ABDOMEN KUB CLINICAL INDICATION: Dorsalgia. COMPARISON: None available. TECHNIQUE: AP view of the abdomen. FINDINGS: The bowel gas pattern is normal with no evidence of ileus or obstruction. No unusual soft tissue calcifications are noted. There is ingested radiodense particulate matter within the right colon. The bones are unremarkable. XR/XR KUB IMPRESSION: Unremarkable examination.
[2023-06-02 08:52] LABS: MANUAL DIFF FLAG NO
[2023-06-02 09:00] LABS: Basophils Percent Auto 0.4 % (0-2); Eosinophils Absolute Auto 0.1 X10*3/uL (0.0-0.4); Hematocrit 39.6 % (37.0-47.0); Hemoglobin 12.7 g/dl (12.0-16.0); Imm Gran Abs Auto 0.02 X10*3/uL (0.00-0.03); Imm Gran Pct Auto 0.3 % (0.0-0.4); Mean Corpuscular HGB Conc 32.1 g/dl (31.0-35.0); Mean Corpuscular Hemoglobin 27.3 pg (27.0-33.0); Mean Corpuscular Volume 85.2 fL (80.0-98.0); Mean Platelet Volume 10.3 fL (9.4-12.3); Monocytes Absolute Auto 0.5 X10*3/uL (0.1-1.2); Monocytes Percent Auto 7.3 % (2-11); Neutrophils Absolute Auto 3.3 x10*3/uL (2.0-8.3); Platelet Count 334 X10*3/uL (160-400); Red Blood Count 4.65 X10*6/uL (4.20-5.50); Red Cell Distribution Width 12.9 % (11.0-16.0)
[2023-06-02 09:33] LABS: Alanine Aminotransferase 10 U/L (0-31); Albumin Level 4.2 g/dL (3.5-5.0); Alkaline Phosphatase 73 U/L (39-117); Anion Gap 13 (12-20); Aspartate Amino Transferase 14 U/L (5-31); Bilirubin Total 0.3 mg/dL (0.0-1.0); Blood Urea Nitrogen 22 mg/dL (9-16); Calcium 9.8 mg/dL (8.4-10.2); Carbon Dioxide 30 mmol/L (22-29); Chloride 98 mmol/L (96-108); Cholesterol 170 mg/dL (<200); Estimated Glomerular Filt Rate > 60; Glucose Fasting 153 mg/dL (60-99); HDL Cholesterol 89 mg/dL (>40); LDL Cholesterol Calculated 67 mg/dL (<100); Potassium 3.7 mmol/L (3.3-5.1); Sodium 137 mmol/L (135-145); Triglycerides 70 mg/dL (<150)
[2023-06-02 09:50] LABS: Thyroid Stimulating Hormone 4.48 uIU/mL (0.32-4.0); Vitamin D 25-OH Total 61.6 ng/mL (>30)
[2023-06-02 10:03] LABS: Folate 16.2 ng/mL (> or = 4.0); Vitamin B12 1085 pg/mL (200-900)
[2023-06-02 10:53] LABS: Creatinine Urine 60.06 mg/dL; Microalbumin Urine < 5.0 mg/L
== END 2023-06-02 08:34 | disposition home or self-care (01) ==
LOC: HO.XRAY 08:33
PROVIDERS: PCP Internal Medicine; Visit Provider Internal Medicine
DX: M54.9 Dorsalgia, unspecified (principal); E53.8 Deficiency of other specified B group vitamins; K21.9 Gastro-esophageal reflux disease without esophagitis; E78.5 Hyperlipidemia, unspecified; E11.9 Type 2 diabetes mellitus without complications; Z79.4 Long term (current) use of insulin; E03.9 Hypothyroidism, unspecified; E55.9 Vitamin D deficiency, unspecified
CPT/HCPCS: 36415; 74018; 80053; 80061; 82043; 82306; 82570; 82607; 82746; 84443; 85025

== ENCOUNTER 2023-06-30 09:37 | Outpatient (AMB) | payer OTHER, SELFPAY ==
[2023-06-30 09:41] VITALS: BP 134/72; PULSE 86; BMI 29.8
--- NOTE | 2023-06-30 09:41 | MHC.OFFVIS ---
Intake Vital Signs 06/30/23 09:41 Height 5 ft 6 in Weight 184 lb 11.958 oz BMI 29.8 BP 134/72 Blood Pressure Location Lt brachial Position Sitting Pulse 86 Pulse Source Pulse Oximeter Intake Visit Reasons: 3 mth f/up testing Intake Note: 3 month f/u after testing Scrap Wheeler Required: Yes Scrap Wheeler Language: Biometric Fingerprinting Technician Name: nader byrne [id number] Allergies shellfish derived Allergy (Intermediate, Verified 06/30/23 09:48) Swelling, Hives penicillin G [Penicillin G] Allergy (Mild, Verified 06/30/23 09:48) RASH penicillin V Allergy (Unknown, Verified 06/30/23 09:48) rash, swelling Penicillins Allergy (Verified 06/30/23 09:48) Unknown Medication List - Last Reconciled 06/30/23 by PARRIS Head acetaminophen 500 mg PO Q6H PRN 30 days acyclovir 400 mg PO TID 30 days amitriptyline 10 mg PO BEDTIME 90 days amlodipine 5 mg PO BID 90 days atorvastatin 10 mg PO DAILY 90 days blood pressure monitor (Blood Pressure Kit) As directed blood sugar diagnostic ([employer] Ultra Test strips) test 4 times per day blood-glucose meter ([employer] Ultra2 Meter) test 4 times per day divalproex ER 1,000 mg (2 x 500 mg) PO BEDTIME 90 days dulaglutide (Trulicity) 0.75 mg (0.5 mL) subcut QWEEK 90 days furosemide 20 mg PO Q OTHER DAY hydrochlorothiazide 12.5 mg PO DAILY 90 days insulin glargine (Lantus Solostar U-100 Insulin) 48 units (0.48 mL) subcut DAILY 90 days lancets ([employer] UltraSoft 2 Lancet) test 4 times per day lisinopril 40 mg (2 x 20 mg) PO DAILY 90 days miscellaneous medical supply Grab bars for shower miscellaneous; omeprazole 20 mg PO DAILY pen needle, diabetic (BD Ultra-Fine Short Pen Needle) As Directed ropinirole 0.5 mg (2 x 0.25 mg) PO BID 90 days trazodone 100 mg PO BEDTIME HPI 3 mth f/up testing HPI Details Bessie is a 63-year-old female with past medical history of hypertension, hyperlipidemia, diabetes, abnormal EKG with septal Q-waves was recently seen in Cardiology and echocardiogram and stress test were ordered. Stress test has been completed and she now presents for follow-up. Echocardiogram not done for unclear reason. Today she reports that she has been feeling generally well. She does have issues with body aches and pains. She denies getting actual chest discomfort at rest or with activity. No shortness of breath, palpitations, presyncope, syncope, PND, orthopnea. She does have bilateral leg edema which she says is chronic. Taking her meds as directed. Says she manages them by herself. Certified automatic silk screen printer used. 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 Hypercholesteremia HSV-2 (herpes simplex virus 2) infection Arthritis Rheumatic fever Schizophrenia GERD (gastroesophageal reflux disease) Depression HTN (hypertension) Hyperlipemia Diabetes Surgical History History of tubal ligation History of cystostomy History of 2 sections Family History Sister Age: 62 Osteoarthritis Mother Cancer of lymphatic and hematopoietic tissue, Onset Age: 83 COVID-19 Father FH: heart attack Brother FH: heart attack Other Diabetes HTN (hypertension) Mental health disorder Social History Household Members: Family Household Members Other:: sister Housing: Apartment Do you presently have visiting nurse or other home services: No Unable to assess alcohol history related to: Unknown Alcohol intake: never Patient Tobacco Use Status: Never used Tobacco e-Cigarette/Vaping Use: Never Used Second Hand Smoke Exposure: No Advance Directives Date on File: 12/05/21 service: No Current occupational status: disabled Sexual orientation: Straight/Heterosexual Cognitive needs: Yes (walker) Hearing needs: No Vision needs: Yes (glasses) Female Reproductive History Menstrual Age of Menarche: 12 Review of Systems Const All systems reviewed & are unremarkable except as noted in HPI and below ENT Denies dizziness Card Denies chest pain, Denies chest pain at rest, Denies chest pain with activity, Denies rapid heart rate, Reports pedal edema, Denies edema, Reports leg edema, Denies lightheadedness, Denies palpitations, Denies dyspnea, Denies dyspnea on exertion and Denies orthopnea Resp Denies cough, Denies dyspnea and Denies dyspnea on exertion GI Denies hematochezia and Denies change in stool character Musc Details: Swelling in lower legs - upper back soreness/ disom Denies abnormal gait, Denies limited range of motion, Denies muscle cramps, Denies muscle weakness, Denies numbness, Denies radiating pain into limb, Denies stiffness and Denies tingling Neuro Denies abnormal gait, Denies dizziness, Denies numbness and Denies tingling Endo Denies palpitations Physical Exam Vital Signs: Last Vital Signs Pulse 86 06/30/23 09:41 BP 134/72 06/30/23 09:41 BMI result Body Mass Index 29.8 Const Other: ambulates with walker General: cooperative, comfortable and no acute distress Orientation/consciousness: patient oriented x3 Neck Neck: Yes normal visual inspection Resp Effort & Inspection: normal respiratory effort Auscultation: clear to auscultation bilaterally, no crackles, no rales, no rhonchi and no wheezes Cardio Jugular venous distension: no JVD Rate: regular rate Rhythm: regular rhythm Heart sounds: S1 normal heart sound present, S2 normal heart sound present, no murmurs and no rubs Skin Other: soft mildly pitting edema of lower legs, ankle, feet Neuro General: patient oriented x3 Extrem General: Yes edema (bilateral lower leg) and Yes pedal edema Psych Appearance: grossly normal Mental Status: mental status grossly normal Speech and movement: Normal speech and movement present Assessment & Plan Assessment & Plan (1) Abnormal EKG: Code(s): R94.31 - Abnormal electrocardiogram [ECG] [EKG] Plan: EKGs show sinus rhythm with septal Q-wave. No known prior cardiac history. Cardiac risks of hypertension, hyperlipidemia, diabetes, family history. No anginal sounding symptoms. Nuclear stress test was done on 04/15/2023 showing normal myocardial perfusion imaging, EF 54% with stress and 61% with rest. Echocardiogram ordered however not completed as of yet. Will help her with scheduling echo prior to leaving the office today. She does have findings of bilateral lower leg edema with no other signs indicating Congestive heart failure. Will pursue this echocardiogram and plan to call her with results. Meds reviewed and adjustments made. Will have her decrease amlodipine from 5 mg b.i.d. down to once daily. Will have her stop hydrochlorothiazide and increase Lasix from 20 mg up to 40 mg daily. Reviewed low-salt diet with her and gave her a pair of our compression stockings. Instructed on their use. Signs and symptoms of angina reviewed. Cardiology follow-up in 6-8 weeks, sooner if needed (2) HTN (hypertension): Code(s): I10 - Essential (primary) hypertension Qualifiers: Hypertension type: primary hypertension Qualified Code(s): I10 - Essential (primary) hypertension Plan: Good at present time. Med changes as above. (3) Bilateral leg edema: Code(s): R60.0 - Localized edema Plan: May be related to amlodipine use. Currently on a total of 10 mg daily. Will have her reduce dose and increase diuretics. (4) Hypercholesteremia: Code(s): E78.00 - Pure hypercholesterolemia, unspecified Plan: ideal LDL goal less than 70 in patient with diabetes. labs done 06/02/2023 shows LDL 67. Continue atorvastatin. Medications: New furosemide (Lasix) 40 mg PO DAILY 90 tabs 1RF Changed From amlodipine 5 mg PO BID 90 days 180 tabs 1RF I10 - Essential (primary) hypertension To amlodipine 5 mg PO DAILY 90 days 90 tabs 1RF I10 - Essential (primary) hypertension Discontinued hydrochlorothiazide Discontinued Reason: Doctor's Order 12.5 mg PO DAILY 90 days 90 caps 1RF furosemide Discontinued Reason: Doctor's Order 20 mg PO Q OTHER DAY 30 tabs 0RF R60.0 - Localized edema Coding Level of Care Code Est Pt Level 4 (52602) Diagnoses Abnormal EKG R94.31 Primary hypertension I10 Hypertension type: primary hypertension Bilateral leg edema R60.0 Hypercholesteremia E78.00 Time Spent (min) 28
== END 2023-06-30 10:07 | disposition home or self-care (01) ==
PROVIDERS: PCP Internal Medicine; Visit Provider Nurse Practitioner Family
DX: R94.31 Abnormal electrocardiogram [ECG] [EKG] (principal); I10 Essential (primary) hypertension; R60.0 Localized edema; E78.00 Pure hypercholesterolemia, unspecified
CPT/HCPCS: 99214

== ENCOUNTER → 2023-06-30 09:37 | Outpatient (BNVA) | payer OTHER, SELFPAY | PROVIDERS: PCP Internal Medicine; Visit Provider Nurse Practitioner Family | DX: R94.31 Abnormal electrocardiogram [ECG] [EKG] (principal); I10 Essential (primary) hypertension; R60.0 Localized edema; E78.00 Pure hypercholesterolemia, unspecified; Z79.899 Other long term (current) drug therapy | CPT/HCPCS: 99212 ==

== ENCOUNTER 2023-07-13 09:49 | Outpatient (AMB) | payer OTHER, SELFPAY ==
--- NOTE | 2023-07-13 09:59 | A.OFFVIS_ITS ---
Intake Intake Visit Reasons: Frequency of micturition Intake Note: New Patient presents for initial visit for urinary frequency Urology Medications: none Blood Thinner: none PVR: 0ml's Calculator Operator Required: Yes Calculator Operator Name: Jose Accompanied by: Self / Same As Patient Allergies shellfish derived Allergy (Intermediate, Verified 07/13/23 20:56) Swelling, Hives penicillin G [Penicillin G] Allergy (Mild, Verified 07/13/23 20:56) RASH penicillin V Allergy (Unknown, Verified 07/13/23 20:56) rash, swelling Penicillins Allergy (Verified 07/13/23 20:56) Unknown Medication List - Last Reconciled 07/13/23 by ROB Herrera acetaminophen 500 mg PO Q6H PRN 30 days acyclovir 400 mg PO TID 30 days amitriptyline 10 mg PO BEDTIME 90 days amlodipine 5 mg PO DAILY 90 days atorvastatin 10 mg PO DAILY 90 days blood pressure monitor (Blood Pressure Kit) As directed blood sugar diagnostic ([employer] AGTouch Ultra Test strips) test 4 times per day blood-glucose meter ([employer] Ultra2 Meter) test 4 times per day divalproex ER 1,000 mg (2 x 500 mg) PO BEDTIME 90 days dulaglutide (Trulicity) 0.75 mg (0.5 mL) subcut QWEEK 90 days furosemide (Lasix) 40 mg PO DAILY insulin glargine (Lantus Solostar U-100 Insulin) 48 units (0.48 mL) subcut DAILY 90 days lancets ([employer] AGTouch UltraSoft 2 Lancet) test 4 times per day lisinopril 40 mg (2 x 20 mg) PO DAILY 90 days miscellaneous medical supply Grab bars for shower miscellaneous; omeprazole 20 mg PO DAILY pen needle, diabetic (BD Ultra-Fine Short Pen Needle) As Directed ropinirole 0.5 mg (2 x 0.25 mg) PO BID 90 days tolterodine ER 2 mg PO DAILY 30 days trazodone 100 mg PO BEDTIME HPI HPI Comments History of Present Illness Details Bessie is a very pleasant 63 year old Russian-speaking female patient of Dr. Soni. She has a past medical history of osteoporosis, diabetes, hypertension, removal blood clot from her brain in 2011, cancer of the left ch[address] st in 2006, hypercholesteremia, herpes simplex virus 2, arthritis, rheumatic fever at the age of [age] years old, schizophrenia, GERD, depression, and hyperlipidemia. She presents to the office today as a new patient for a longstanding history of lower urinary tract symptoms. In discussion with the patient today she reports to be doing and feeling well. She reports noting lower urinary tract symptoms started many years ago after the last of her child via . She discusses following up with a urogynecologist in [place] over 20 +years ago and having had surgical intervention on her bladder. She reports having had bladder suspension. She reports lower urinary tract symptoms at this time improved however still somewhat continued. She reports noting significant bothersome of lower urinary tract symptoms approximately 3 years ago. She discusses feeling weak stream, incomplete bladder emptying, and urinary frequency with episodes of incontinence if not near a bathroom. She otherwise denies nocturia, hematuria, dysuria, foul smelling urine, flank pain, fever, and or chills. Discussed at length potential causes for lower urinary tract symptoms patient is experiencing. Discuss affects of diabetes in lower urinary tract symptoms as well as on the bladder. In office urinalysis results reviewed with the patient today. PVR 0 mL. 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 Hypercholesteremia HSV-2 (herpes simplex virus 2) infection Arthritis Rheumatic fever Schizophrenia GERD (gastroesophageal reflux disease) Depression HTN (hypertension) Hyperlipemia Diabetes Surgical History History of tubal ligation History of cystostomy History of 2 sections Family History Sister Age: 62 Osteoarthritis Mother Cancer of lymphatic and hematopoietic tissue, Onset Age: 83 COVID-19 Father FH: heart attack Brother FH: heart attack Other Diabetes HTN (hypertension) Mental health disorder Social History Household Members: Family Household Members Other:: sister Housing: Apartment Do you presently have visiting nurse or other home services: No Unable to assess alcohol history related to: Unknown Alcohol intake: never Patient Tobacco Use Status: Never used Tobacco e-Cigarette/Vaping Use: Never Used Second Hand Smoke Exposure: No Advance Directives Date on File: 12/05/21 service: No Current occupational status: disabled Sexual orientation: Straight/Heterosexual Cognitive needs: Yes (walker) Hearing needs: No Vision needs: Yes (glasses) Female Reproductive History Menstrual Age of Menarche: 12 Review of Systems Const Reports as per HPI Eyes Reports no additional complaints ENT Reports no additional complaints Card Reports as per HPI Resp Reports no additional complaints GI Reports as per HPI Reports as per HPI Neuro Reports as per HPI Psych Reports as per HPI Endo Reports as per HPI Physical Exam Const General: cooperative, comfortable, no acute distress, well developed, alert and awake Orientation/consciousness: patient oriented x3 Limitations: ambulation with walker HEENT Head: Yes normal to inspection, Yes normocephalic and Yes atraumatic Ears: hearing grossly normal bilaterally Eyes General: appearance normal, both eyes and all related structures Neck Neck: Yes normal visual inspection and Yes trachea midline Chest Chest palpation & inspection: normal inspection of the chest Resp Effort & Inspection: normal respiratory effort and able to speak in complete sentences Cardio Rate: regular rate GI Inspection: Yes normal to inspection General: Yes no CVA tenderness Back/Spine/Pelvis Back: no CVA tenderness Skin General skin exam: no rashes or lesions noted Neuro General: patient oriented x3 Extrem General: Yes normal to inspection Psych Appearance: grossly normal and well kempt Mental Status: mental status grossly normal Speech and movement: Normal speech and movement present and Clear speech present Affect: normal affect Attitude: cooperative Thought process: Normal thought process present Thought content: Normal thought content present Insight: Fair insight present (Psych) Judgement: Fair judgement present (Psych) Office Procedures Post Void Residual Post Residual Void Post Void Residual (PVR): 0 [id number] Void Residual by ultrasound Results AMB Urinalysis, Automated UA Leukoctes 0 [place]/uL Last Edit by [employer] on 07/13/23 10:19 UA Nitrite Negative Last Edit by [email or web address] on 07/13/23 10:19 UA Urobilinogen 0.2 mg/dL Last Edit by [employer] on 07/13/23 10:19 UA Protein 0 mg/dL Last Edit by [employer] on 07/13/23 10:19 UA pH 6.0 Last Edit by [employer] on 07/13/23 10:19 UA Blood 0 [place]/uL Last Edit by Seema Kim on 07/13/23 10:19 UA Specific [place] 1.010 Last Edit by Seema Kim on 07/13/23 10:19 UA Ketone Negative Last Edit by Seema Kim on 07/13/23 10:19 UA Bilirubin 0 mg/dL Last Edit by Seema Kim on 07/13/23 10:19 UA Glucose 0 mg/dL Last Edit by Seema Kim on 07/13/23 10:19 Results Reviewed Results Reviewed: Laboratory Last Values Urine pH (Auto) 6.0 07/13/23 10:04 Specific [place] (Auto) 1.010 07/13/23 10:04 Urine Protein (Auto) 0 mg/dL 07/13/23 10:04 Glucose (UA)(Auto) 0 mg/dL 07/13/23 10:04 Urine Ketones (Auto) Negative 07/13/23 10:04 Urine Blood (Auto) 0 [place]/uL 07/13/23 10:04 Urine Nitrite (Auto) Negative 07/13/23 10:04 Urine Bilirubin (Auto) 0 mg/dL 07/13/23 10:04 Urine Urobilinogen (Auto) 0.2 mg/dL 07/13/23 10:04 Leukocyte Esterase (Auto) 0 [place]/uL 07/13/23 10:04 Assessment & Plan Assessment & Plan (1) Lower urinary tract symptoms: Code(s): R39.9 - Unspecified symptoms and signs involving the genitourinary system (2) Urinary frequency: Comment: With urgency Code(s): R35.0 - Frequency of micturition (3) Weak urinary stream: Code(s): R39.12 - Poor urinary stream (4) Urinary incontinence, urge: Code(s): N39.41 - Urge incontinence Plan In office urinalysis results reviewed with the patient today; as noted above. PVR 0 mL. Will obtain retroperitoneal ultrasound for further assessment evaluation. Start tolterodine as discussed and prescribed. Discussed at length importance of managing diabetes for improvement in lower urinary tract symptoms as well as overall health and well-being. Discussed importance of weight loss to eliminate issues with urinary symptoms the patient is experiencing as this will decrease pressure on the bladder Discussed timed voiding/scheduled toileting Discussed pelvic floor therapy Discussed bladder triggers/irritants. Discussed near future in office cystoscopy and or urodynamics for further assessment evaluation. Follow-up in 6-8 weeks with imaging to be completed prior and PVR at next office visit; or sooner with any issues, concerns, and or questions. Orders: Orders AMB Urinalysis Automated Today Z13.9 - Encounter for screening, unspecified AMB Post Void Residual by ultrasound Today R35.0 - Frequency of micturition US retroperitoneal comp Today R39.9 - Unspecified symptoms and signs involving the genitourinary system Medications: New tolterodine ER 2 mg PO DAILY 30 days 30 caps 1RF R39.15 - Urgency of urination Patient Instructions: The patient had an opportunity to ask questions regarding the treatment plan. All questions were answered. Physical exam, labs, and imaging were discussed and reviewed in detail. As well as risks, benefits, and discussion of treatment choices. No major barriers to understanding were identified. The patient expressed understanding and agreement with the above treatment plan. The patient was made aware they should contact our office by phone for worsening of their current condition, the appearance of new symptoms, or with any questions or concerns. Compliance is encouraged with any medications and follow up testing that is ordered. It is a privilege to be allowed the opportunity to participate in? your urological care.? Again, if you have any questions or concerns If you have any questions or concerns please do not hesitate to contact me. The office is [phone]. This note is constructed using voice recognition software. While every effort has been made to ensure accuracy blood bank business manager errors may have been included. Yours sincerely, ROB Herrera Coding Level of Care Code New Pt Level 4 (47979) Diagnoses Lower urinary tract symptoms R39.9 Urinary frequency R35.0 Weak urinary stream R39.12 Urinary incontinence, urge N39.41 CPT Codes Post Residual Void - PVR CPT Code: 88285-[id number] Void Residual by ultrasound ([id number])
== END 2023-07-13 10:49 | disposition home or self-care (01) ==
PROVIDERS: PCP Internal Medicine; Visit Provider Nurse Practitioner Family
DX: R39.9 Unspecified symptoms and signs involving the genitourinary system (principal); R35.0 Frequency of micturition; R39.12 Poor urinary stream; N39.41 Urge incontinence
CPT/HCPCS: 99204

== ENCOUNTER → 2023-07-13 09:49 | Outpatient (BNVA) | payer OTHER, SELFPAY | PROVIDERS: PCP Internal Medicine; Visit Provider Nurse Practitioner Family | DX: R35.0 Frequency of micturition (principal); R39.9 Unspecified symptoms and signs involving the genitourinary system; R39.12 Poor urinary stream; N39.41 Urge incontinence | CPT/HCPCS: 51798; 81003 ==

== ENCOUNTER 2023-08-21 08:25 | Outpatient (AMB) | payer OTHER, SELFPAY ==
[2023-08-21 10:12] VITALS: BP 124/62; PULSE 67; BMI 29.6
--- NOTE | 2023-08-21 10:12 | A.OFFVIS_ITS ---
Intake Vital Signs 08/21/23 10:12 Height 5 ft 6 in Weight 183 lb 6.793 oz BMI 29.6 BP 124/62 Blood Pressure Location Lt brachial Position Sitting Pulse 67 Pulse Source Pulse Oximeter Intake Visit Reasons: 7 wk f/up Loss Prevention Coordinator Required: Yes Loss Prevention Coordinator Language: Compliance Administrator Name: nader cohen [id number] Allergies shellfish derived Allergy (Intermediate, Verified 08/21/23 10:15) Swelling, Hives penicillin G [Penicillin G] Allergy (Mild, Verified 08/21/23 10:15) RASH penicillin V Allergy (Unknown, Verified 08/21/23 10:15) rash, swelling Penicillins Allergy (Verified 08/21/23 10:15) Unknown Medication List - Last Reconciled 08/21/23 by PARRIS Head acetaminophen 500 mg PO Q6H PRN 30 days acyclovir 400 mg PO TID 30 days amitriptyline 10 mg PO BEDTIME 90 days amlodipine 5 mg PO DAILY 90 days atorvastatin 10 mg PO DAILY 90 days blood pressure monitor (Blood Pressure Kit) As directed blood sugar diagnostic ([employer] Ultra Test strips) test 4 times per day blood-glucose meter ([employer] Ultra2 Meter) test 4 times per day divalproex ER 1,000 mg (2 x 500 mg) PO BEDTIME 90 days dulaglutide (Trulicity) 0.75 mg (0.5 mL) subcut QWEEK 90 days furosemide (Lasix) 40 mg PO DAILY insulin glargine (Lantus Solostar U-100 Insulin) 48 units (0.48 mL) subcut DAILY 90 days lancets ([employer] UltraSoft 2 Lancet) test 4 times per day lisinopril 40 mg (2 x 20 mg) PO DAILY 90 days miscellaneous medical supply Grab bars for shower miscellaneous; omeprazole 20 mg PO DAILY pen needle, diabetic (BD Ultra-Fine Short Pen Needle) As Directed ropinirole 0.5 mg (2 x 0.25 mg) PO BID 90 days tolterodine ER 2 mg PO DAILY 30 days trazodone 100 mg PO BEDTIME HPI 7 wk f/up HPI Details Bessie is a 63-year-old female with past medical history of hypertension, hyperlipidemia, diabetes, abnormal EKG with septal Q-waves was recently seen in Cardiology and echocardiogram and stress test were ordered. Stress test has been completed and shows normal perfusion imaging. Echocardiogram still not done - patient states she did not get a call. Today she reports she has been feeling generally well. She has no exertional chest discomfort. She did have a sharp pain in her chest that lasted a few seconds last week. This has not reoccurred. She denies shortness of breath, palpitations, presyncope, syncope, PND, orthopnea. On last visit she had significant edema. Her medications were adjusted and her edema is much improved. She is very pleased with how they are at present. Taking all meds as directed. Certified orthopaedic nurse used. 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 Hypercholesteremia HSV-2 (herpes simplex virus 2) infection Arthritis Rheumatic fever Schizophrenia GERD (gastroesophageal reflux disease) Depression HTN (hypertension) Hyperlipemia Diabetes Surgical History History of tubal ligation History of cystostomy History of 2 sections Family History Sister Age: 62 Osteoarthritis Mother Cancer of lymphatic and hematopoietic tissue, Onset Age: 83 COVID-19 Father FH: heart attack Brother FH: heart attack Other Diabetes HTN (hypertension) Mental health disorder Social History Household Members: Family Household Members Other:: sister Housing: Apartment Do you presently have visiting nurse or other home services: No Unable to assess alcohol history related to: Unknown Alcohol intake: never Patient Tobacco Use Status: Never used Tobacco e-Cigarette/Vaping Use: Never Used Second Hand Smoke Exposure: No Advance Directives Date on File: 12/05/21 service: No Current occupational status: disabled Sexual orientation: Straight/Heterosexual Cognitive needs: Yes (walker) Hearing needs: No Vision needs: Yes (glasses) Female Reproductive History Menstrual Age of Menarche: 12 Review of Systems Const All systems reviewed & are unremarkable except as noted in HPI and below ENT Denies dizziness Card Details: Quick sharp pain in chest 2 weeks ago Denies chest pain, Denies chest pain at rest, Denies chest pain with activity, Denies rapid heart rate, Denies pedal edema, Denies edema, Denies leg edema, Denies lightheadedness, Denies palpitations, Denies dyspnea, Denies dyspnea on exertion and Denies orthopnea Resp Denies cough, Denies dyspnea and Denies dyspnea on exertion GI Denies hematochezia and Denies change in stool character Musc Details: Mild left-sided weakness, chronic post CVA Denies abnormal gait, Reports limited range of motion, Denies muscle weakness, Denies numbness, Denies radiating pain into limb, Denies stiffness and Denies tingling Neuro Denies abnormal gait, Denies dizziness, Denies numbness and Denies tingling Endo Denies palpitations Physical Exam Vital Signs: Last Vital Signs Pulse 67 08/21/23 10:12 BP 124/62 08/21/23 10:12 BMI result Body Mass Index 29.6 Const General: cooperative, healthy appearing, comfortable and no acute distress Orientation/consciousness: patient oriented x3 Neck Neck: Yes normal visual inspection Resp Effort & Inspection: normal respiratory effort Auscultation: clear to auscultation bilaterally, no crackles, no rales, no rhonchi and no wheezes Cardio Jugular venous distension: no JVD Rate: regular rate Rhythm: regular rhythm Heart sounds: S1 normal heart sound present, S2 normal heart sound present, no murmurs and no rubs Neuro General: patient oriented x3 Extrem General: Yes normal to inspection and No no pedal edema Psych Appearance: grossly normal Mental Status: mental status grossly normal Speech and movement: Normal speech and movement present Assessment & Plan Assessment & Plan (1) Abnormal EKG: Code(s): R94.31 - Abnormal electrocardiogram [ECG] [EKG] Plan: EKGs show sinus rhythm with septal Q-wave. No known prior cardiac history. Cardiac risks of hypertension, hyperlipidemia, diabetes, family history. No anginal sounding symptoms. Nuclear stress test was done on 04/15/2023 showing normal myocardial perfusion imaging, EF 54% with stress and 61% with rest. Echocardiogram ordered however not completed as of yet. Will again help her schedule appointment prior to leaving this office. Will plan to call her with echocardiogram results. If echocardiogram is normal then cardiology follow-up will be in 1 year. If echocardiogram is abnormal then follow-up will be determined at that time. Signs and symptoms of angina reviewed. (2) HTN (hypertension): Code(s): I10 - Essential (primary) hypertension Qualifiers: Hypertension type: primary hypertension Qualified Code(s): I10 - Essential (primary) hypertension Plan: Good at present time. Med changes as above. (3) Hypercholesteremia: Code(s): E78.00 - Pure hypercholesterolemia, unspecified Plan: ideal LDL goal less than 70 in patient with diabetes. labs done 06/02/2023 shows LDL 67. Continue atorvastatin. (4) Bilateral leg edema: Code(s): R60.0 - Localized edema Plan: On last visit she had significant lower leg edema with discomfort in her feet on ambulation. Her amlodipine had been at 10 mg daily. Dose reduced to 5 mg daily. Her hydrochlorothiazide was stopped and Lasix was increased to 40 mg daily. At this time she has no significant leg edema. Is overall much improved since last visit. She is very pleased with how she is feeling. Will continue current meds without change. Orders: Orders Basic Metabolic Panel Today I10 - Essential (primary) hypertension Patient Instructions: Time spent with chart review, documentation, interview, assessment Coding Level of Care Code Est Pt Level 3 (85765) Diagnoses Abnormal EKG R94.31 Primary hypertension I10 Hypertension type: primary hypertension Hypercholesteremia E78.00 Bilateral leg edema R60.0 Time Spent (min) 24
== END 2023-08-21 10:41 | disposition home or self-care (01) ==
PROVIDERS: PCP Internal Medicine; Visit Provider Nurse Practitioner Family
DX: R94.31 Abnormal electrocardiogram [ECG] [EKG] (principal); I10 Essential (primary) hypertension; E78.00 Pure hypercholesterolemia, unspecified; R60.0 Localized edema
CPT/HCPCS: 99213

== ENCOUNTER 2023-08-21 11:06 | Outpatient (REF) | payer OTHER, SELFPAY ==
--- NOTE | ~2023-08-21 | US_ITS ---
EXAMINATION: US RETROPERITONEAL COMPLETE (RENAL) CLINICAL INFORMATION: Unspecified symptoms and signs involving the genitourinary system. COMPARISON: X-ray abdomen KUB 06/02/2023. TECHNIQUE: Real-time imaging of the kidneys and bladder. FINDINGS: RIGHT KIDNEY: 10.6 x 4.7 x 4.5 cm (SAG x AP x TRV). The kidney is normal in size, contour, and echogenicity. Renal cortical thickness is normal. No calculi or focal parenchymal lesions. No hydronephrosis. LEFT KIDNEY: 10.3 x 5.1 x 4.6 cm (SAG x AP x TRV). The kidney is normal in size, contour, and echogenicity. Renal cortical thickness is normal. No calculi or focal parenchymal lesions. No hydronephrosis. BLADDER: Well distended and normal. Bilateral ureteral jets are not demonstrated. Prevoid bladder volume is 202 mL. Postvoid bladder volume is 22 mL. US/US retroperitoneal comp IMPRESSION: Unremarkable examination.
== END 2023-08-21 11:07 | disposition home or self-care (01) ==
LOC: HO.US 11:06
PROVIDERS: PCP Internal Medicine; Visit Provider Nurse Practitioner Family
DX: R39.9 Unspecified symptoms and signs involving the genitourinary system (principal); R94.31 Abnormal electrocardiogram [ECG] [EKG]; I10 Essential (primary) hypertension; R60.0 Localized edema; E78.00 Pure hypercholesterolemia, unspecified
CPT/HCPCS: 76770; 99212

== ENCOUNTER 2023-08-25 09:42 | Outpatient (AMB) | payer OTHER, SELFPAY ==
--- NOTE | 2023-08-25 10:15 | A.OFFVIS_ITS ---
Intake Intake Visit Reasons: 6w/US/PVR(set) Intake Note: Patient presents for follow up visit for urinary frequency/ultrasound (imaging 08/21/23) Urology Medications: Tolterodine Blood Thinner: none PVR: 52ml's Online Facilitator Required: Yes Online Facilitator Name: PAOLA SANCHEZISIS Accompanied by: Self / Same As Patient Allergies shellfish derived Allergy (Intermediate, Verified 08/25/23 10:55) Swelling, Hives penicillin G [Penicillin G] Allergy (Mild, Verified 08/25/23 10:55) RASH penicillin V Allergy (Unknown, Verified 08/25/23 10:55) rash, swelling Penicillins Allergy (Verified 08/25/23 10:55) Unknown Medication List - Last Reconciled 08/25/23 by ROB Herrera acetaminophen 500 mg PO Q6H PRN 30 days acyclovir 400 mg PO TID 30 days amitriptyline 10 mg PO BEDTIME 90 days amlodipine 5 mg PO DAILY 90 days atorvastatin 10 mg PO DAILY 90 days blood pressure monitor (Blood Pressure Kit) As directed blood sugar diagnostic ([employer] Ultra Test strips) test 4 times per day blood-glucose meter ([employer] Ultra2 Meter) test 4 times per day divalproex ER 1,000 mg (2 x 500 mg) PO BEDTIME 90 days dulaglutide (Trulicity) 0.75 mg (0.5 mL) subcut QWEEK 90 days furosemide (Lasix) 40 mg PO DAILY insulin glargine (Lantus Solostar U-100 Insulin) 48 units (0.48 mL) subcut DAILY 90 days lancets ([employer] UltraSoft 2 Lancet) test 4 times per day lisinopril 40 mg (2 x 20 mg) PO DAILY 90 days miscellaneous medical supply Grab bars for shower miscellaneous; omeprazole 20 mg PO DAILY pen needle, diabetic (BD Ultra-Fine Short Pen Needle) As Directed ropinirole 0.5 mg (2 x 0.25 mg) PO BID 90 days tolterodine ER 2 mg PO DAILY 30 days trazodone 100 mg PO BEDTIME HPI HPI Comments History of Present Illness Details Bessie is a very pleasant 63 year old Estonian-speaking female patient of Dr. Soni. She has a past medical history of osteoporosis, diabetes, hypertension, removal blood clot from her brain in 2011, cancer of the left breast in 2006, hypercholesteremia, herpes simplex virus 2, arthritis, rheumatic fever at the age of [age] years old, schizophrenia, GERD, depression, and hyperlipidemia. She presents to the office today for follow-up. Of note, patient was seen approximately 6 weeks ago as a new patient for a longstanding history of lower urinary tract symptoms at which time a retroperitoneal ultrasound was ordered and the patient was started on 2 mg of Tolterodine daily. In discussion with the patient today she reports to be doing and feeling well. Recent retroperitoneal ultrasound results reviewed with the patient today. Bilateral kidneys with no calculi, lesions, and or hydronephrosis. The bladder is well distended and normal. Bilateral ureteral jets are not demonstrated. Prevoid bladder volume is approximately 200 mL. Postvoid bladder volume is 20ml's. Unremarkable examination. She reports noting significant improvement in nocturia on tolterodine 2 mg daily. She does report urinary frequency throughout the day however relates this to her diuretic. She otherwise denies incontinence, hematuria, dysuria, foul smelling urine, changes to urinary stre am, flank pain, fever, and or chills. She is happy with her current voiding parameters on tolterodine 2 mg daily. She reports noting lower urinary tract symptoms started many years ago after the last of her child via . She discusses following up with a urogynecologist in [place] over 20 +years ago and having had surgical intervention on her bladder. She reports having had bladder suspension. Discuss affects of diabetes in lower urinary tract symptoms as well as on the bladder. In office urinalysis results reviewed with the patient today. PVR 52ml's. 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 left breast Hypercholesteremia HSV-2 (herpes simplex virus 2) infection Arthritis Rheumatic fever Schizophrenia GERD (gastroesophageal reflux disease) Depression HTN (hypertension) Hyperlipemia Diabetes Surgical History History of tubal ligation History of cystostomy History of 2 sections Family History Sister Age: 62 Osteoarthritis Mother Cancer of lymphatic and hematopoietic tissue, Onset Age: 83 COVID-19 Father FH: heart attack Brother FH: heart attack Other Diabetes HTN (hypertension) Mental health disorder Social History Household Members: Family Household Members Other:: sister Housing: Apartment Do you presently have visiting nurse or other home services: No Unable to assess alcohol history related to: Unknown Alcohol intake: never Patient Tobacco Use Status: Never used Tobacco e-Cigarette/Vaping Use: Never Used Second Hand Smoke Exposure: No Advance Directives Date on File: 12/05/21 service: No Current occupational status: disabled Sexual orientation: Straight/Heterosexual Cognitive needs: Yes (walker) Hearing needs: No Vision needs: Yes (glasses) Female Reproductive History Menstrual Age of Menarche: 12 Review of Systems Const Reports as per HPI Eyes Reports no additional complaints ENT Reports no additional complaints Card Reports as per HPI Resp Reports no additional complaints GI Reports as per HPI Reports as per HPI Neuro Reports as per HPI Psych Reports as per HPI Endo Reports as per HPI Physical Exam Const General: cooperative, comfortable, no acute distress, well developed, alert and awake Orientation/consciousness: patient oriented x3 Limitations: ambulation with walker HEENT Head: Yes normal to inspection, Yes normocephalic and Yes atraumatic Ears: hearing grossly normal bilaterally Eyes General: appearance normal, both eyes and all related structures Neck Neck: Yes normal visual inspection and Yes trachea midline Chest Chest palpation & inspection: normal inspection of the chest Resp Effort & Inspection: normal respiratory effort and able to speak in complete sentences Cardio Rate: regular rate GI Inspection: Yes normal to inspection General: Yes no CVA tenderness Back/Spine/Pelvis Back: no CVA tenderness Skin General skin exam: no rashes or lesions noted Neuro General: patient oriented x3 Extrem General: Yes normal to inspection Psych Appearance: grossly normal and well kempt Mental Status: mental status grossly normal Speech and movement: Normal speech and movement present and Clear speech present Affect: normal affect Attitude: cooperative Thought process: Normal thought process present Thought content: Normal thought content present Insight: Fair insight present (Psych) Judgement: Fair judgement present (Psych) Office Procedures Post Void Residual Post Residual Void Post Void Residual (PVR): 52 [id number] Void Residual by ultrasound Results AMB Urinalysis, Automated UA Leukoctes 0 [place]/uL Last Edit by Seema Kim on 08/25/23 10:53 UA Nitrite Negative Last Edit by Seema Kim on 08/25/23 10:53 UA Urobilinogen 0.2 mg/dL Last Edit by Seema Kim on 08/25/23 10:53 UA Protein 0 mg/dL Last Edit by Seema Kim on 08/25/23 10:53 UA pH 6.0 Last Edit by Seema Kim on 08/25/23 10:53 UA Blood 0 Randall/uL Last Edit by Seema Kim on 08/25/23 10:53 UA Specific Brandon 1.015 Last Edit by Mikeycbettye Kim on 08/25/23 10:53 UA Ketone Negative Last Edit by Seema Kim on 08/25/23 10:53 UA Bilirubin 0 mg/dL Last Edit by Seema Kim on 08/25/23 10:53 UA Glucose 0 mg/dL Last Edit by Seema Kim on 08/25/23 10:53 Results Reviewed Results Reviewed: Laboratory Last Values Urine pH (Auto) 6.0 08/25/23 10:23 Specific Brandon (Auto) 1.015 08/25/23 10:23 Urine Protein (Auto) 0 mg/dL 08/25/23 10:23 Glucose (UA)(Auto) 0 mg/dL 08/25/23 10:23 Urine Ketones (Auto) Negative 08/25/23 10:23 Urine Blood (Auto) 0 Randall/uL 08/25/23 10:23 Urine Nitrite (Auto) Negative 08/25/23 10:23 Urine Bilirubin (Auto) 0 mg/dL 08/25/23 10:23 Urine Urobilinogen (Auto) 0.2 mg/dL 08/25/23 10:23 Leukocyte Esterase (Auto) 0 [place]/uL 08/25/23 10:23 Assessment & Plan Assessment & Plan (1) Urinary incontinence, urge: Code(s): N39.41 - Urge incontinence (2) Lower urinary tract symptoms: Code(s): R39.9 - Unspecified symptoms and signs involving the genitourinary system (3) Urinary frequency: Comment: With urgency Code(s): R35.0 - Frequency of micturition Plan In office urinalysis results reviewed with the patient today; as noted above. PVR 52 mL. Recent retroperitoneal ultrasound results reviewed with the patient today; as noted above. Continue tolterodine 2 mg daily as discussed and prescribed. Patient reports to be happy with current voiding parameters with 2 mg of tolterodine daily; refill prescription provided. Discussed at length importance of managing diabetes for improvement in lower urinary tract symptoms as well as overall health and well-being. Discussed importance of weight loss to eliminate issues with urinary symptoms the patient is experiencing as this will decrease pressure on the bladder Discussed bladder triggers/irritants. Discussed possible near future in office cystoscopy and or urodynamics if symptoms reoccur for further assessment evaluation. Follow-up in 3 months with PVR; or sooner with any issues, concerns, and or questions. Orders: Orders AMB Urinalysis Automated Today Z13.9 - Encounter for screening, unspecified AMB Post Void Residual by ultrasound Today N39.41 - Urge incontinence Patient Instructions: The patient had an opportunity to ask questions regarding the treatment plan. All questions were answered. Physical exam, labs, and imaging were discussed and reviewed in detail. As well as risks, benefits, and discussion of treatment choices. No major barriers to understanding were identified. The patient expressed understanding and agreement with the above treatment plan. The patient was made aware they should contact our office by phone for worsening of their current condition, the appearance of new symptoms, or with any questions or concerns. Compliance is encouraged with any medications and follow up testing that is ordered. It is a privilege to be allowed the opportunity to participate in? your urological care.? Again, if you have any questions or concerns If you have any questions or concerns please do not hesitate to contact me. The office is [phone]. This note is constructed using voice recognition software. While every effort has been made to ensure accuracy home fire alarm installer errors may have been included. Yours sincerely, ROB Herrera Coding Level of Care Code Est Pt Level 3 (45575) Diagnoses Urinary incontinence, urge N39.41 Lower urinary tract symptoms R39.9 Urinary frequency R35.0 CPT Codes Post Residual Void - PVR CPT Code: 62166-[place]awk Void Residual by ultrasound ([id number])
== END 2023-08-25 11:00 | disposition home or self-care (01) ==
PROVIDERS: PCP Internal Medicine; Visit Provider Nurse Practitioner Family
DX: N39.41 Urge incontinence (principal); R39.9 Unspecified symptoms and signs involving the genitourinary system; R35.0 Frequency of micturition; Z13.9 Encounter for screening, unspecified
CPT/HCPCS: 99213

== ENCOUNTER → 2023-08-25 09:42 | Outpatient (BNVA) | payer OTHER, SELFPAY | PROVIDERS: PCP Internal Medicine; Visit Provider Nurse Practitioner Family | DX: N39.41 Urge incontinence (principal); R39.9 Unspecified symptoms and signs involving the genitourinary system; R35.0 Frequency of micturition | CPT/HCPCS: 51798; 81003; 99212 ==

== ENCOUNTER 2023-09-29 10:26 | Outpatient (AMB) | payer OTHER, SELFPAY ==
--- NOTE | 2023-09-29 10:30 | MHC.OFFVIS ---
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 Intake Note: no concerns Supervisor Border Department Required: Yes Supervisor Border Department Language: Surface Supervisor Name: Guillermina ANDRES Information Interpreted: non-clinical & clinical Assembler Molded Frames: Assembler Molded Frames Present (Guillermina ANDRES) Accompanied by: Self / Same As Patient Allergies shellfish derived Allergy (Intermediate, Verified 09/29/23 10:38) Swelling, Hives penicillin G [Penicillin G] Allergy (Mild, Verified 09/29/23 10:38) RASH penicillin V Allergy (Unknown, Verified 09/29/23 10:38) rash, swelling Penicillins Allergy (Verified 09/29/23 10:38) Unknown Post menopausal: Yes HPI HPI Comments History of Present Illness Details Presenting for annual exam. No complaints. 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 Hypercholesteremia HSV-2 (herpes simplex virus 2) infection Arthritis Rheumatic fever Schizophrenia GERD (gastroesophageal reflux disease) Depression HTN (hypertension) Hyperlipemia Diabetes Surgical History History of tubal ligation History of cystostomy History of 2 sections Family History Sister Age: 62 Osteoarthritis Mother Cancer of lymphatic and hematopoietic tissue, Onset Age: 83 COVID-19 Father FH: heart attack Brother FH: heart attack Other Diabetes HTN (hypertension) Mental health disorder Social History Household Members: Family Household Members Other:: sister Housing: Apartment Do you presently have visiting nurse or other home services: No Alcohol intake: never Patient Tobacco Use Status: Never used Tobacco e-Cigarette/Vaping Use: Never Used Second Hand Smoke Exposure: No Advance Directives Date on File: 12/05/21 service: No Current occupational status: disabled Sexually active: No Sexual orientation: Straight/Heterosexual Gender identity: Female Cognitive needs: Yes (walker) Hearing needs: No Vision needs: Yes (glasses) Female Reproductive History Menstrual Age of Menarche: 12 Total pregnancies: 2 Full term: 1 Number of Living Children: 1 Date of last pap smear: 04/04/22 Date of Mammogram: 02/23/23 Review of Systems Const All systems reviewed & are unremarkable except as noted in HPI and below Card Reports as per HPI Resp Reports as per HPI GI Reports as per HPI and Reports no additional complaints Reports as per HPI Physical Exam Vital Signs: Last Vital Signs BP 130/82 09/29/23 10:31 BMI result Body Mass Index 29.5 Const General: cooperative, healthy appearing and comfortable Chest Chest palpation & inspection: normal inspection of the chest and normal palpation of entire chest wall Breast/axilla inspection: normal inspection of the breasts and normal inspection of the axillae Breast/axilla palpation: normal palpation of the breasts, normal palpation of the axillae and no axillary lymphadenopathy Resp Effort & Inspection: normal respiratory effort Auscultation: clear to auscultation bilaterally Percussion: percussion normal Cardio Palpation: normal PMI Rate: regular rate Rhythm: regular rhythm Heart sounds: no murmurs and no rubs Peripheral pulses: Peripheral pulses 2+ throughout GI Inspection: Yes normal to inspection Palpation (GI): Soft to palpation, nontender, no guarding, not rigid and No hepatosplenomegaly present Percussion: Yes normal to percussion Auscultation: normal bowel sounds Rectal Exam - Female: deferred General: Yes bladder normal to palpation External Female Exam: No lesion Speculum Exam - Vagina: normal appearance of the vagina, normal palpation, normal vaginal discharge and not erythematous Speculum Exam - Cervix: normal appearance of the cervix and normal palpation Bimanual exam- vagina & uterus: normal bimanual exam, normal palpation, uterine size normal, bladder normal to palpation, consistency normal and normal palpation Bimanual Exam- Adnexa, other: normal adnexae, no masses and no tenderness Assessment & Plan Assessment & Plan (1) Well woman exam: Code(s): Z01.419 - Encounter for gynecological examination (general) (routine) without abnormal findings Plan: Co testing not indicated this year. Counseled the patient about the recommended dietary allowance of 1200 mg of Calcium & 600 IU of vitamin D. Instructions given the patient to schedule next screen Mammogram in 03/14. The patient was referred to GI for screening colonoscopy . The patient was instructed to perform monthly self-breast exams and schedule annual exam in a year. All questions answered and the patient verbalized understanding. Orders: Referrals Gastroenterology Referral Z12.11 - Encounter for screening for malignant neoplasm of colon Coding Level of Care Code Est Pt Prev Care 40-64y(07313) Diagnoses Well woman exam Z01.419
[2023-09-29 10:31] VITALS: BP 130/82; BMI 29.5
== END 2023-09-29 11:01 | disposition home or self-care (01) ==
LOC: HO.HWS 10:26
PROVIDERS: PCP Internal Medicine; Visit Provider Obstetrics & Gynecology
DX: Z01.419 Encounter for gynecological examination (general) (routine) without abnormal findings (principal)
CPT/HCPCS: 99396

== ENCOUNTER → 2023-09-29 10:26 | Outpatient (BNVA) | payer OTHER, SELFPAY | PROVIDERS: PCP Internal Medicine; Visit Provider Obstetrics & Gynecology | DX: Z01.419 Encounter for gynecological examination (general) (routine) without abnormal findings (principal) | CPT/HCPCS: 99396 ==

== ENCOUNTER 2023-10-06 10:07 | Outpatient (AMB) | payer OTHER, SELFPAY ==
--- NOTE | 2023-10-06 10:11 | A.OFFPC_ITS ---
Vital Signs 10/06/23 10:13 10/06/23 10:59 Height 5 ft 6 in Weight 182 lb BMI 29.4 BP 146/80 H 150/80 H Blood Pressure Location Lt brachial Lt brachial Position Sitting Sitting Intake Visit Reasons: Annual exam Intake Note: Patient here for a physical exam, requesting glucometer Lapel Padder Blindstitch Required: No Accompanied by: Self / Same As Patient Allergies shellfish derived Allergy (Intermediate, Verified 10/06/23 10:29) Swelling, Hives penicillin G [Penicillin G] Allergy (Mild, Verified 10/06/23 10:29) RASH penicillin V Allergy (Unknown, Verified 10/06/23 10:29) rash, swelling Penicillins Allergy (Verified 10/06/23 10:29) Unknown Medication List - Last Reconciled 10/06/23 by Evelia Donald MD acetaminophen 500 mg PO Q6H PRN 30 days acyclovir 400 mg PO TID 30 days amitriptyline 10 mg PO BEDTIME 90 days amlodipine 5 mg PO DAILY 90 days atorvastatin 10 mg PO DAILY 90 days blood pressure monitor (Blood Pressure Kit) As directed blood sugar diagnostic (freeeTouch Ultra Test strips) test 4 times per day blood-glucose meter (Tykliuch Ultra2 Meter) test 4 times per day divalproex ER 1,000 mg (2 x 500 mg) PO BEDTIME 90 days dulaglutide (Trulicity) 0.75 mg (0.5 mL) subcut QWEEK 90 days furosemide (Lasix) 40 mg PO DAILY insulin glargine (Lantus Solostar U-100 Insulin) 48 units (0.48 mL) subcut DAILY 90 days lancets (freeeTouch UltraSoft 2 Lancet) test 4 times per day lisinopril 40 mg (2 x 20 mg) PO DAILY 90 days miscellaneous medical supply Grab bars for shower miscellaneous; omeprazole 20 mg PO DAILY pen needle, diabetic (BD Ultra-Fine Short Pen Needle) As Directed ropinirole 0.5 mg (2 x 0.25 mg) PO BID 90 days tolterodine ER 2 mg PO DAILY 90 days trazodone 100 mg PO BEDTIME Tobacco use date assessed: 10/06/23 Fall risk assessment: No Falls in past year Last assessed Fall Risk: 10/06/23 Dental Screening Dental Screen Date: 01/16/24 Did you have a dental visit in the last 12 months?: No Did you have a dental problem in the last 6 months where you did not have access to dental care?: No Was dental information given to patient?: Yes HPI HPI Comments History of Present Illness Details This is a 63-year-old female with diabetes mellitus type 2 on long-term current use of insulin and mild major depression that comes for her physical exam. A1c elevated and I will increase Trulicity. Last diabetic eye exam was over a year ago and needs a new referral. Depression stable with medications and this is follow by Psychiatry. Last Pap smear was 2021. Last mammogram was February 2023. Was refer to gastroenterology for colonoscopy. Walks with a walker for gait stability. No chest pain or shortness of breath. Blood pressure borderline normal to elevated and blood pressure will be recheck by nurse navigator in 3 weeks. She is compliant with medications. 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 Hypercholesteremia HSV-2 (herpes simplex virus 2) infection Arthritis Rheumatic fever Schizophrenia GERD (gastroesophageal reflux disease) Depression HTN (hypertension) Hyperlipemia Diabetes Surgical History History of tubal ligation History of cystostomy History of 2 sections Family History Sister Age: 62 Osteoarthritis Mother Cancer of lymphatic and hematopoietic tissue, Onset Age: 83 COVID-19 Father FH: heart attack Brother FH: heart attack Other Diabetes HTN (hypertension) Mental health disorder Social History Household Members: Family Household Members Other:: sister Housing: Apartment Do you presently have visiting nurse or other home services: No Alcohol intake: never Patient Tobacco Use Status: Never used Tobacco e-Cigarette/Vaping Use: Never Used Second Hand Smoke Exposure: No Advance Directives Date on File: 12/05/21 service: No Current occupational status: disabled Sexual orientation: Straight/Heterosexual Gender identity: Female Cognitive needs: Yes (walker) Hearing needs: No Vision needs: Yes (glasses) Female Reproductive History Menstrual Age of Menarche: 12 Questionnaire PHQ-9 Over the last 2 weeks, how often have you been bothered by any of the following problems? 1. Little interest or pleasure in doing things: not at all 2. Feeling down, depressed, or hopeless: not at all 3. Trouble falling or staying asleep, or sleeping too much: not at all 4. Feeling tired or having little energy: not at all 5. Poor appetite or overeating: not at all 6. Feeling bad about yourself - or that you are a failure or have let yourself or your family down: not at all 7. Trouble concentrating on things, such as reading the newspaper or watching television: not at all 8. Moving or speaking so slowly that other people could have noticed. Or the opposite - being so fidgety or restless that you have been moving around a lot more than usual: not at all 9. Thoughts that you would be better off or of hurting yourself in some way: not at all Total score: 0 Depression Screening Interpretation: Negative Depression Screening Done: Yes 82633 - PHQ-9 Billing: Yes Source: Developed by Drs. Rajendra Gutierrez, Juanita Junior, Tyson Mike and colleagues, with an educational otis from [employer]. Thrive Questionnaire Date Thrive assessed: 10/06/23 I am a: Patient What is your living situation today?: I have a steady place to live Within the past 12 months, did the food you bought not last and you didn't have the money to get more?: Never true Within the past 12 months, did you worry whether your food would run out before you got money to buy more?: Never true Do you have trouble paying for medicines?: No Do you have trouble getting transportation to medical appointments?: No Do you have trouble paying your heating and electricity bill?: No Do you have trouble taking care of your child, family member or friend?: No Do you have trouble with day-to-day activities such as bathing, preparing meals, shopping, managing finances, etc.?: No Are you currently unemployed and looking for a job?: No Are you interested in more education?: No Please select the resources that you would like help with: None AUDIT C Alcohol Use Questionnaire (AUDIT-C) 1. How often do you have a drink containing alcohol?: Never Total Score: 0 ÓSCAR-7 AMB Questionnaire ÓSCAR-7 Date ÓSCAR - 7 assessed: 10/06/23 Feeling nervous, anxious, or on edge: 0 = Not at all Not being able to stop or control worryin = Not at all Worrying too much about different things: 0 = Not at all Trouble relaxin = Not at all Being so restless that it is hard to sit still: 0 = Not at all Becoming easily annoyed or irritable: 0 = Not at all Feeling afraid as if something awful might happen: 0 = Not at all Total ÓSCAR-7 score (0-4 normal; 5-9 mild; 10-14 moderate; 15-21 severe): 0 Source: Developed by Drs. Rajendra Gutierrez, Juanita Junior, Tyson Mike and colleagues, with an educational otis from [employer]. ÓSCAR-7 Assessment Billing ÓSCAR-7 Assessment Tool: ÓSCAR-7 Assessment 47312 Review of Systems Const All systems reviewed & are unremarkable except as noted in HPI and below Eyes Reports no additional complaints, Denies change in vision and Denies other visual disturbances Card Denies chest pain at rest, Denies chest pain with activity, Denies edema, Denies irregular heart rhythm, Denies claudication, Denies dyspnea, Denies dyspnea on exertion, Denies orthopnea, Denies paroxysmal nocturnal dyspnea and Denies slow heart rate Resp Denies cough, Denies dyspnea and Denies dyspnea on exertion GI Denies abdominal pain, Denies change in bowel habits, Denies excessive flatus, Denies nausea and Denies vomiting Denies urinary incontinence, Denies urinary hesitancy and Denies urinary urgency Musc Denies abnormal gait, Denies atrophy, Denies deformity and Denies limited range of motion Skin/Breast Denies bleeding lesions, Denies changing lesions and Denies rash Neuro Denies abnormal gait, Denies behavioral changes, Denies confusion and Denies lack of coordination Psych Denies behavioral changes and Denies confusion Physical exam (Primary Care) Vital Signs: Last Vital Signs BP 146/80 H 10/06/23 10:13 BMI result Body Mass Index 29.4 Tobacco/Smoking Status: Tobacco use Status Tobacco use date assessed 10/06/23 10/06/23 10:16 Patient Tobacco Use Status Never used Tobacco 10/06/23 10:12 e-Cigarette/Vaping Use Never Used 10/06/23 10:12 PHQ-9: PHQ-9 Score PHQ-9: Total score 0 10/06/23 10:36 Depression Screening Interpretation: Negative Thrive Assessment: Date of Thrive Assessment Date Thrive assessed 10/06/23 10/06/23 10:16 Const General: No confusion Orientation/consciousness: patient oriented x3 and No confusion Limitations: ambulation with walker HENMT Head: Yes normal to inspection, Yes normocephalic and Yes atraumatic Ears: external ears normal Eyes General: appearance normal, both eyes and all related structures Eyelids: Yes eyelids normal Conjunctivae: conjunctivae normal Neck Neck: Yes normal visual inspection and Yes supple Resp Effort & Inspection: normal respiratory effort Auscultation: clear to auscultation bilaterally Cardio Jugular venous distension: no JVD Rate: regular rate Rhythm: regular rhythm Heart sounds: S1 normal heart sound present and S2 normal heart sound present GI Inspection: Yes normal to inspection Palpation (GI): Soft to palpation and nontender Auscultation: normal bowel sounds Skin General skin exam: no rashes or lesions noted Neuro General: patient oriented x3, no focal motor deficits and No confusion Extrem General: Yes full ROM Results AMB Hemoglobin A1c AMB Hemoglobin A1c 8.2 % Last Edit by MCKENNA Saenz on 10/06/23 10:3 6 Results Reviewed Results Reviewed: Laboratory Last Values Hgb A1c (Clinic) 8.2 % (4.0-6.0) H 10/06/23 10:21 Assessment and Plan Assessment & Plan (1) Physical exam: Code(s): Z00.00 - Encounter for general adult medical examination without abnormal findings Plan: Repeat in a year. (2) Mild major depression: Code(s): F32.0 - Major depressive disorder, single episode, mild Plan: Continue amitriptyline. Follow-up with psychiatry. (3) Diabetes mellitus, type II, insulin dependent: Code(s): E11.9 - Type 2 diabetes mellitus without complications; Z79.4 - detention (current) use of insulin Plan: Continue insulin. Increase Trulicity. A1c goal is equal or less than 7%. Orders: Orders AMB Hemoglobin A1c Today E11.9 - Type 2 diabetes mellitus without complications, Z79.4 - detention (current) use of insulin Vitamin D 25-OH Total Today E55.9 - Vitamin D deficiency, unspecified Free T4 (Free Thyroxine) Today E03.9 - Hypothyroidism, unspecified T Spot TB Today Z11.1 - Encounter for screening for respiratory tuberculosis XR DEXA axial skeleton Today N95.9 - Unspecified menopausal and perimenopausal disorder Lipid Panel Today E78.5 - Hyperlipidemia, unspecified Microalbumin, Random (w Creat) Today E11.9 - Type 2 diabetes mellitus without complications Comprehensive [place]. Panel Fast Today E78.00 - Pure hypercholesterolemia, unspecified Thyroid Stimulating Hormone Today E03.9 - Hypothyroidism, unspecified Thyroglobulin Antibodies Today E03.9 - Hypothyroidism, unspecified Thyroid Peroxidase Antibodies Today E03.9 - Hypothyroidism, unspecified Referrals Ophthalmology Referral E11.9 - Type 2 diabetes mellitus without complications Medications: New lancets (FreeStyle Lancets) Use 1 lancet twice a day 100 ea 1RF E11.9 - Type 2 diabetes mellitus without complications, Z79.4 - meal attendant (current) use of insulin dulaglutide (Trulicity) 1.5 mg (0.5 mL) subcut QWEEK 30 days 2.5 mL 6RF E11.9 - Type 2 diabetes mellitus without complications, Z79.4 - detention (current) use of insulin blood-glucose meter (FreeStyle Lite Meter kit) As directed 1 ea 0RF E11.9 - Type 2 diabetes mellitus without complications, Z79.4 - meal attendant (current) use of insulin blood sugar diagnostic (FreeStyle Lite Strips) Use 1 test strip twice a day 100 ea 3RF E11.9 - Type 2 diabetes mellitus without complications, Z79.4 - meal attendant (current) use of insulin Discontinued dulaglutide (Trulicity) Discontinued Reason: Patient Completed Course 0.75 mg (0.5 mL) subcut QWEEK 90 days 6.5 mL 1RF Coding Level of Care Code Est Pt Prev Care 40-64y(44541) Diagnoses Physical exam Z00.00 Mild major depression F32.0 Diabetes mellitus, type II, insulin dependent E11.9; Z79.4 Additional Codes ÓSCAR-7 Assessment Billing - ÓSCAR-7 Assessment Tool: ÓSCAR-7 Assessment [id number] ([id number]) Time Spent (min) 36
[2023-10-06 10:13] VITALS: BP 146/80; BMI 29.4
[2023-10-06 10:59] VITALS: BP 150/80
== END 2023-10-06 10:44 | disposition home or self-care (01) ==
PROVIDERS: PCP Internal Medicine; Visit Provider Internal Medicine
DX: Z00.00 Encounter for general adult medical examination without abnormal findings (principal); F32.0 Major depressive disorder, single episode, mild; E11.40 Type 2 diabetes mellitus with diabetic neuropathy, unspecified; Z79.4 Long term (current) use of insulin
CPT/HCPCS: 83036; 99396

== ENCOUNTER → 2023-10-09 10:12 | Outpatient (REF) | payer OTHER, SELFPAY ==
--- NOTE | 2023-10-09 10:37 | CA_ITS ---
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 Study Quality: Adequate w contrast ECG Rhythm: Sinus Conclusions: - The left ventricular systolic function is low normal. The calculated ejection fraction is 54% by biplane method. - No obvious valvular pathology seen on this study. Findings Procedure Information Contrast agent, definity, is being given per protocol without apparent complications. The quality of the study was technically difficult. The study quality is limited by patients body habitus. Left Ventricle Normal left ventricular cavity size. There is normal left ventricular wall thickness. The left ventricular systolic function is low normal. The calculated ejection fraction is 54% by biplane method. There is no evidence of regional wall motion abnormalities. There is borderline global hypokinesis. Diastolic function is normal for age. Right Ventricle Normal right ventricular cavity size. There is low normal right ventricular systolic function. Atria Both atria are normal in size. Aortic Valve There is a normal trileaflet aortic valve. There is no aortic valve stenosis. There is no aortic valve regurgitation. Mitral Valve The mitral valve appears normal. There is no mitral valve regurgitation. There is no mitral valve stenosis. Pulmonic Valve The pulmonic valve is likely normal. Tricuspid Valve There is no tricuspid valve regurgitation. Tricuspid regurgitation envelope is inadequate for calculation of right ventricular systolic pressure. Great Vessels The asc aorta is normal in size. Venous The inferior vena cava is normal in size and collapses greater than 50% with inspiration. Pericardium/Pleural There is no evidence of pericardial effusion. Prior Study Comparison No prior study available for comparison. Recommendations, Care & Conclusions No obvious valvular pathology seen on this study. Measurements 2D Linear Measurements IVSd: 0.93 0.6-0.9/0.6-1.0 cm LVIDd: 4.82 3.9-5.3/4.2-5.9 cm LVIDd Index: 2.69 2.4-3.2/2.2-3.1 cm/m2 LVIDs: 3.59 2.0-3.6 cm LVPWd: 1.05 0.7-1.1 cm LA Diam: 3.50 2.7-3.8/3.0-4.0 cm LAIDs Index: 1.96 1.5-2.3 cm/m2 LV Mass: 210.69 67-162/88-224 g LV Mass Index: 117.71 43-95/49-115 g/m2 LVOT Diam: 1.90 3.0+(-)1.3 cm 2D Systolic Function EF 4C: 59.80 >55% EF 2C: 45.10 >55% EF BiP: 53.70 >55% Mitral Valve MV Pk E: 0.68 MV PK A: 0.83 MV Decel Time: 246.00 E/A: 0.80 E'Lateral: 7.51 E'Medial: 5.00 E/E' Med: 13.60 E/E' Lat: 9.10 PHT: 72.00 MVA PHT: 3.06 Decel Todd: 2.77 Aortic Valve AoV Pk Carter: 1.48 AoV Mn Carter: 1.05 AoV VTI: 0.34 AoV Pk Grad: 9.00 Aov Mn Grad: 5.00 SORAIDA Cont.VTI: 1.69 LVOT LVOT Pk Carter: 1.16 LVOT Mn Carter: 0.59 LVOT VTI: 0.20 LVOT Pk Grad: 5.00 LVOT Mn Grad: 2.00 LVOT Diam: 1.90 LVOT Area: 2.84 Diastolic Function MV Pk E: 0.68 MV Pk A: 0.83 E/A: 0.80 E'Medial: 5.00 E/E' Med: 13.60 E' Laterial: 7.51 E/E' Lat: 9.10 Right Ventricle TAPSE (mm): 18.90 TVS' Carter: 9.46 Tricuspid Valve RA Press: 3.00 Great Vessels Aorta Sinus of Valsalva: 3.00 2.0-3.5 cm Ao Asc: 3.10 2.1-3.4 cm Pulmonary Valve PV Pk Carter: 0.94 Peak PV Grad: 4.00 Updated in Other Vendor System with Status of Final Willian Alfonso MD electronically signed on 10/10/2023 3:34:25 PM with status of Final
[2023-10-09 12:02] LABS: Creatinine Urine 82.87 mg/dL
[2023-10-09 13:21] LABS: Alanine Aminotransferase 9 U/L (0-31); Albumin Level 4.2 g/dL (3.5-5.0); Alkaline Phosphatase 82 U/L (39-117); Anion Gap 14 (12-20); Aspartate Amino Transferase 10 U/L (5-31); Bilirubin Total 0.4 mg/dL (0.0-1.0); Blood Urea Nitrogen 20 mg/dL (9-16); Calcium 9.5 mg/dL (8.4-10.2); Carbon Dioxide 31 mmol/L (22-29); Chloride 99 mmol/L (96-108); Cholesterol 162 mg/dL (<200); Estimated Glomerular Filt Rate > 60; Free T4 (Free Thyroxine) 0.92 ng/dL (0.71-1.85); Glucose Fasting 149 mg/dL (60-99); HDL Cholesterol 77 mg/dL (>40); LDL Cholesterol Calculated 67 mg/dL (<100); Potassium 4.1 mmol/L (3.3-5.1); Sodium 140 mmol/L (135-145); Thyroid Stimulating Hormone 3.52 uIU/mL (0.32-4.0); Total Protein 7.2 g/dL (6.5-8.0); Triglycerides 94 mg/dL (<150)
[2023-10-12 13:29] LABS: Thyroglobulin Antibodies <1 IU/mL (< or = 1); Thyroid Peroxidase Antibodies <1 IU/mL (<9)
[2023-10-12 21:24] LABS: TS Negative Control Passed; TS Panel A 0; TS Panel B 0; TS Positive Control Passed; TSpotTB Negative (Negative)
== END ==
LOC: HO.CARD 10:12
PROVIDERS: Absent Provider Internal Medicine; PCP Internal Medicine; Visit Provider Internal Medicine
DX: Z11.1 Encounter for screening for respiratory tuberculosis (principal); I25.10 Atherosclerotic heart disease of native coronary artery without angina pectoris; E11.9 Type 2 diabetes mellitus without complications; E55.9 Vitamin D deficiency, unspecified; E03.9 Hypothyroidism, unspecified; E78.5 Hyperlipidemia, unspecified; E78.00 Pure hypercholesterolemia, unspecified
CPT/HCPCS: 36415; 80053; 80061; 82043; 82306; 82570; 84439; 84443; 86376; 86481; 86800; 93306; Q9957

== ENCOUNTER → 2023-10-09 10:37 | Outpatient (BNV) | payer OTHER, SELFPAY | PROVIDERS: Absent Provider Internal Medicine; PCP Internal Medicine; Visit Provider Internal Medicine | DX: I25.10 Atherosclerotic heart disease of native coronary artery without angina pectoris (principal) | CPT/HCPCS: 93306 ==

== ENCOUNTER 2023-10-29 09:58 | Outpatient (REF) | payer OTHER, SELFPAY ==
--- NOTE | ~2023-10-29 | MM_ITS ---
EXAMINATION: BONE DENSITOMETRY CLINICAL INDICATION: Unspecified menopausal and perimenopausal disorder. COMPARISON: This is the patient's baseline examination. TECHNIQUE: Using a mig33 DXA System (software version: 13.1) manufactured by [employer], dual-energy x-ray absorptiometry was performed of the lumbar spine and left hip. The images are of good technical quality. Summary results are attached. FINDINGS: AP SPINE L1-L4: BMD 1.268 g/cm2, Z-score 1.7, T-score 0.7, normal. LEFT FEMUR, NECK: BMD 1.014 g/cm2, Z-score 0.9, T-score -0.2, normal. LEFT FEMUR, TOTAL: BMD 1.246 g/cm2, Z-score 2.6, T-score 1.9, normal. IDENTIFIED RISK FACTORS: Height loss. Low calcium intake. Menopause. HISTORY OF FRACTURE: None listed. MEDICATIONS: Multivitamin. MM/XR DEXA axial skeleton IMPRESSION: 1. DIAGNOSIS: Normal bone density based on the lowest T-score value of -0.2 in the femoral neck applying World Health Organization criteria. 2. 10-YEAR FRACTURE RISK PREDICTION, FRAX: According to the guidelines, FRAX calculation should only be performed on patients in the osteopenia bone density category. Therefore, FRAX was not performed on this patient.? 3. Treatment Recommendations: NOF guidelines recommend consideration for treatment in postmenopausal women and men age 50 and older presenting with the following: -A hip or vertebral (clinical or morphometric) fracture. -T-score less than or equal to -2.5 at the femoral neck or spine after appropriate evaluation to exclude secondary causes. -Low bone mass at the hip or spine and a 10-year fracture probability by FRAX of greater than or equal to 3% for hip fracture or greater than or equal to 20% for major osteoporotic fracture based on the [place] adapted WHO algorithm. 4. Other Recommendations: All treatment decisions require clinical judgment and consideration of individual patient factors, including patient preferences, comorbidities, previous drug use, risk factors not captured in the FRAX model (e.g. frailty, falls, vitamin D deficiency, increased bone turnover, interval significant decline in bone density) and possible under or overestimation of fracture risk by FRAX. FUTURE SCAN RECOMMENDATION: People with diagnosed cases of osteoporosis or at high risk for fracture should have regular bone mineral density tests. For patients eligible for Medicare, routine testing is allowed once every 2 years. The testing frequency can be increased to one year for patients who have rapidly progressing disease, those who are receiving or discontinuing medical therapy to restore bone mass, or have additional risk factors.
== END 2023-10-29 09:59 | disposition home or self-care (01) ==
LOC: HO.MAMMO 09:58
PROVIDERS: PCP Internal Medicine; Visit Provider Internal Medicine
DX: Z13.820 Encounter for screening for osteoporosis (principal); Z78.0 Asymptomatic menopausal state
CPT/HCPCS: 77080

== ENCOUNTER 2023-11-24 09:47 | Outpatient (AMB) | payer OTHER, SELFPAY ==
--- NOTE | 2023-11-24 10:18 | MHC.OFFVIS ---
Intake Intake Visit Reasons: 3m/PVR (LVM) Intake Note: Patient presents for follow up visit for urinary frequency Urology Medications: Tolterodine Blood Thinner: none PVR: 0 Title Vehicle Service Attendant Required: Yes Title Vehicle Service Attendant Name: PAOLA SANCHEZISIS Accompanied by: Self / Same As Patient Allergies shellfish derived Allergy (Intermediate, Verified 11/24/23 21:35) Swelling, Hives penicillin G [Penicillin G] Allergy (Mild, Verified 11/24/23 21:35) RASH penicillin V Allergy (Unknown, Verified 11/24/23 21:35) rash, swelling Penicillins Allergy (Verified 11/24/23 21:35) Unknown Medication List - Last Reconciled 11/24/23 by ROB Herrera acetaminophen 500 mg PO Q6H PRN 30 days acyclovir 400 mg PO TID 30 days amitriptyline 10 mg PO BEDTIME 90 days amlodipine 5 mg PO DAILY 90 days atorvastatin 10 mg PO DAILY 90 days blood pressure monitor (Blood Pressure Kit) As directed blood sugar diagnostic (OneTouch Ultra Test strips) test 4 times per day blood sugar diagnostic (FreeStyle Lite Strips) Use 1 test strip twice a day blood-glucose meter (OneTouch Ultra2 Meter) test 4 times per day blood-glucose meter (FreeStyle Lite Meter kit) As directed divalproex ER 1,000 mg (2 x 500 mg) PO BEDTIME 90 days dulaglutide (Trulicity) 1.5 mg (0.5 mL) subcut QWEEK 30 days furosemide 40 mg PO DAILY insulin glargine (Lantus Solostar U-100 Insulin) 48 units (0.48 mL) subcut DAILY 90 days lancets (OneTouch UltraSoft 2 Lancet) test 4 times per day lancets (FreeStyle Lancets) Use 1 lancet twice a day lisinopril 40 mg (2 x 20 mg) PO DAILY 90 days miscellaneous medical supply Grab bars for shower miscellaneous; omeprazole 20 mg PO DAILY pen needle, diabetic (BD Ultra-Fine Short Pen Needle) As Directed ropinirole 0.5 mg (2 x 0.25 mg) PO BID 90 days tolterodine ER 2 mg PO DAILY 90 days trazodone 100 mg PO BEDTIME HPI HPI Comments History of Present Illness Details Bessie is a very pleasant 63 year old Hebrew-speaking female patient of Dr. Soni. She has a past medical history of osteoporosis, diabetes, hypertension, removal blood clot from her brain in 2011, cancer of the left breast in 2006, hypercholesteremia, herpes simplex virus 2, arthritis, rheumatic fever at the age of [age] years old, schizophrenia, GERD, depression, and hyperlipidemia. She presents to the office today for follow-up. In discussion with the patient today she reports to be doing and feeling well. She reports to be happy with current voiding parameters on 2 mg of tolterodine. She reports significant improvement in nocturia, urinary frequency, and urinary urgency. Previous workup has included a retroperitoneal ultrasound noting bilateral kidneys with no calculi, lesions, and or hydronephrosis. The bladder is well distended and normal. Bilateral ureteral jets are not demonstrated. Prevoid bladder volume is approximately 200 mL. Postvoid bladder volume is 20ml's. Unremarkable examination. She otherwise denies incontinence, hematuria, dysuria, foul smelling urine, changes to urinary stream, flank pain, fever, and or chills. She is happy with her current voiding parameters on tolterodine 2 mg daily. She reports noting lower urinary tract symptoms started many years ago after the last of her child via . She discusses following up with a urogynecologist in [place] over 20 +years ago and having had surgical intervention on her bladder. She reports having had bladder suspension. Discuss affects of diabetes in lower urinary tract symptoms as well as on the bladder. In office urinalysis results reviewed with the patient today. PVR 0 ml's. [facility] Medical History Osteoporosis Diabetes Hypertension History of blood clot in brain Cancer of left breast Hypercholesteremia HSV-2 (herpes simplex virus 2) infection Arthritis Rheumatic fever Schizophrenia GERD (gastroesophageal reflux disease) Depression HTN (hypertension) Hyperlipemia Diabetes Surgical History History of tubal ligation History of cystostomy History of 2 sections Family History Sister Age: 62 Osteoarthritis Mother Cancer of lymphatic and hematopoietic tissue, Onset Age: 83 COVID-19 Father FH: heart attack Brother FH: heart attack Other Diabetes HTN (hypertension) Mental health disorder Social History Household Members: Family Household Members Other:: sister Housing: Apartment Do you presently have visiting nurse or other home services: No Alcohol intake: never Patient Tobacco Use Status: Never used Tobacco e-Cigarette/Vaping Use: Never Used Second Hand Smoke Exposure: No Advance Directives Date on File: 12/05/21 service: No Current occupational status: disabled Sexual orientation: Straight/Heterosexual Gender identity: Female Cognitive needs: Yes (walker) Hearing needs: No Vision needs: Yes (glasses) Female Reproductive History Menstrual Age of Menarche: 12 Review of Systems Const Reports as per HPI Eyes Reports no additional complaints ENT Reports no additional complaints Card Reports as per HPI Resp Reports no additional complaints GI Reports as per HPI Reports as per HPI Neuro Reports as per HPI Psych Reports as per HPI Endo Reports as per HPI Physical Exam Const General: cooperative, healthy appearing, comfortable, no acute distress, well developed, alert and awake Orientation/consciousness: patient oriented x3 Limitations: ambulation with walker HEENT Head: Yes normal to inspection, Yes normocephalic and Yes atraumatic Ears: hearing grossly normal bilaterally Eyes General: appearance normal, both eyes and all related structures Neck Neck: Yes normal visual inspection and Yes trachea midline Chest Chest palpation & inspection: normal inspection of the chest Resp Effort & Inspection: normal respiratory effort and able to speak in complete sentences Cardio Rate: regular rate GI Inspection: Yes normal to inspection General: Yes no CVA tenderness Back/Spine/Pelvis Back: no CVA tenderness Skin General skin exam: no rashes or lesions noted Neuro General: patient oriented x3 Extrem General: Yes normal to inspection Psych Appearance: grossly normal and well kempt Mental Status: mental status grossly normal Speech and movement: Normal speech and movement present and Clear speech present Affect: normal affect Attitude: cooperative Thought process: Normal thought process present Thought content: Normal thought content present Insight: Fair insight present (Psych) Judgement: Fair judgement present (Psych) Office Procedures Post Void Residual Post Residual Void Post Void Residual (PVR): 0 [id number] Void Residual by ultrasound Results AMB Urinalysis, Automated UA Leukoctes 0 [place]/uL Last Edit by Seema Kim on 11/24/23 10:43 UA Nitrite Negative Last Edit by Seema Kim on 11/24/23 10:43 UA Urobilinogen 0.2 mg/dL Last Edit by Mikejuarez Kimolga on 11/24/23 10:43 UA Protein 0 mg/dL Last Edit by Mikejuarez Kimolga on 11/24/23 10:43 UA pH 6.0 Last Edit by Mikejuarez Kimolga on 11/24/23 10:43 UA Blood 0 Randall/uL Last Edit by Seema Kimolga on 11/24/23 10:43 UA Specific [place] 1.015 Last Edit by Mikejuarez Kimolga on 11/24/23 10:43 UA Ketone Negative Last Edit by Mikejuarez Kimolga on 11/24/23 10:43 UA Bilirubin 0 mg/dL Last Edit by Mikejuarez Kimolga on 11/24/23 10:43 UA Glucose 0 mg/dL Last Edit by Seema Kimolga on 11/24/23 10:43 Results Reviewed Results Reviewed: Laboratory Last Values Urine pH (Auto) 6.0 11/24/23 10:29 Specific [place] (Auto) 1.015 11/24/23 10:29 Urine Protein (Auto) 0 mg/dL 11/24/23 10:29 Glucose (UA)(Auto) 0 mg/dL 11/24/23 10:29 Urine Ketones (Auto) Negative 11/24/23 10:29 Urine Blood (Auto) 0 Randall/uL 11/24/23 10:29 Urine Nitrite (Auto) Negative 11/24/23 10:29 Urine Bilirubin (Auto) 0 mg/dL 11/24/23 10:29 Urine Urobilinogen (Auto) 0.2 mg/dL 11/24/23 10:29 Leukocyte Esterase (Auto) 0 [place]/uL 11/24/23 10:29 Assessment & Plan Assessment & Plan (1) Urinary incontinence, urge: Code(s): N39.41 - Urge incontinence (2) Lower urinary tract symptoms: Code(s): R39.9 - Unspecified symptoms and signs involving the genitourinary system (3) Urinary frequency: Comment: With urgency Code(s): R35.0 - Frequency of micturition Plan In office urinalysis results reviewed with the patient today; as noted above. PVR 0 mL. Continue tolterodine 2 mg daily as discussed and prescribed. Patient reports to be happy with current voiding parameters with 2 mg of tolterodine daily; refill prescription provided. Discussed at length importance of managing diabetes for improvement in lower urinary tract symptoms as well as overall health and well-being. Discussed importance of weight loss to eliminate issues with urinary symptoms the patient is experiencing as this will decrease pressure on the bladder Discussed bladder triggers/irritants. Discussed possible near future in office cystoscopy and or urodynamics if symptoms reoccur for further assessment evaluation. Follow-up in 6 months with PVR; or sooner with any issues, concerns, and or questions. Orders: Orders AMB Urinalysis Automated Today Z13.9 - Encounter for screening, unspecified AMB Post Void Residual by ultrasound Today R35.0 - Frequency of micturition Medications: Refilled tolterodine ER 2 mg PO DAILY 90 days 90 caps 3RF R39.15 - Urgency of urination Patient Instructions: The patient had an opportunity to ask questions regarding the treatment plan. All questions were answered. Physical exam, labs, and imaging were discussed and reviewed in detail. As well as risks, benefits, and discussion of treatment choices. No major barriers to understanding were identified. The patient expressed understanding and agreement with the above treatment plan. The patient was made aware they should contact our office by phone for worsening of their current condition, the appearance of new symptoms, or with any questions or concerns. Compliance is encouraged with any medications and follow up testing that is ordered. It is a privilege to be allowed the opportunity to participate in? your urological care.? Again, if you have any questions or concerns If you have any questions or concerns please do not hesitate to contact me. The office is [phone]. This note is constructed using voice recognition software. While every effort has been made to ensure accuracy welder fitter helper errors may have been included. Yours sincerely, ROB Herrera Coding Level of Care Code Est Pt Level 3 (90554) Diagnoses Urinary incontinence, urge N39.41 Lower urinary tract symptoms R39.9 Urinary frequency R35.0 CPT Codes Post Residual Void - PVR CPT Code: 06270-Arny Void Residual by ultrasound ([id number])
== END 2023-11-24 11:08 | disposition home or self-care (01) ==
PROVIDERS: PCP Internal Medicine; Visit Provider Nurse Practitioner Family
DX: N39.41 Urge incontinence (principal); R39.9 Unspecified symptoms and signs involving the genitourinary system; R35.0 Frequency of micturition
CPT/HCPCS: 99213

== ENCOUNTER → 2023-11-24 09:47 | Outpatient (BNVA) | payer OTHER, SELFPAY | PROVIDERS: PCP Internal Medicine; Visit Provider Nurse Practitioner Family | DX: N39.41 Urge incontinence (principal); R39.9 Unspecified symptoms and signs involving the genitourinary system; R35.0 Frequency of micturition | CPT/HCPCS: 51798; 81003; 99212 ==

== ENCOUNTER 2023-12-02 10:02 | Outpatient (AMB) | payer OTHER, SELFPAY ==
--- NOTE | 2023-12-02 10:11 | MHC.OFFVIS ---
Intake Vital Signs 12/02/23 10:20 Height 5 ft 6 in BP 150/66 H Blood Pressure Location Lt brachial Position Sitting Pulse 79 Intake Visit Reasons: Colonoscopy Screening Intake Note: Patient new consult for 2nd pre colonoscopy screening. Patient cc: medication for GERD is working, constipation, and denies any other GI issues. Sap Senior Developer Required: Yes Sap Senior Developer Name: [facility] [place] [facility] Accompanied by: Self / Same As Patient Allergies shellfish derived Allergy (Intermediate, Verified 12/02/23 10:11) Swelling, Hives penicillin G [Penicillin G] Allergy (Mild, Verified 12/02/23 10:11) RASH penicillin V Allergy (Unknown, Verified 12/02/23 10:11) rash, swelling Penicillins Allergy (Verified 12/02/23 10:11) Unknown Medication List - Last Reconciled 12/02/23 by Kelli Betancur PA-C acetaminophen 500 mg PO Q6H PRN 30 days acyclovir 400 mg PO TID 30 days amitriptyline 10 mg PO BEDTIME 90 days amlodipine 5 mg PO DAILY 90 days atorvastatin 10 mg PO DAILY 90 days blood pressure monitor (Blood Pressure Kit) As directed blood sugar diagnostic (OneTouch Ultra Test strips) test 4 times per day blood sugar diagnostic (FreeStyle Lite Strips) Use 1 test strip twice a day blood-glucose meter (OneTouch Ultra2 Meter) test 4 times per day blood-glucose meter (FreeStyle Lite Meter kit) As directed divalproex ER 1,000 mg (2 x 500 mg) PO BEDTIME 90 days dulaglutide (Trulicity) 1.5 mg (0.5 mL) subcut QWEEK 30 days furosemide 40 mg PO DAILY insulin glargine (Lantus Solostar U-100 Insulin) 48 units (0.48 mL) subcut DAILY 90 days lancets (OneTouch UltraSoft 2 Lancet) test 4 times per day lancets (FreeStyle Lancets) Use 1 lancet twice a day lisinopril 40 mg (2 x 20 mg) PO DAILY 90 days miscellaneous medical supply Grab bars for shower miscellaneous; omeprazole 20 mg PO DAILY pen needle, diabetic (BD Ultra-Fine Short Pen Needle) As Directed ropinirole 0.5 mg (2 x 0.25 mg) PO BID 90 days tolterodine ER 2 mg PO DAILY 90 days trazodone 100 mg PO BEDTIME HPI HPI Comments History of Present Illness Details A 63 y/o diabetic female referred for screening colonoscopy- Bowels -typically has constipation -intermittent diarrhea after stool regimen- Appetite is good she has no respiratory or cardiac issues She is seeing Urology for urine frequency , no nausea, vomiting, abdominal abdominal pain, hematemesis, hematochezia fever chills 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 Hypercholesteremia HSV-2 (herpes simplex virus 2) infection Arthritis Rheumatic fever Schizophrenia GERD (gastroesophageal reflux disease) Depression HTN (hypertension) Hyperlipemia Diabetes Surgical History History of tubal ligation History of cystostomy History of 2 sections Family History Sister Age: 62 Osteoarthritis Mother Cancer of lymphatic and hematopoietic tissue, Onset Age: 83 COVID-19 Father FH: heart attack Brother FH: heart attack Other Diabetes HTN (hypertension) Mental health disorder Social History Household Members: Family Household Members Other:: sister Housing: Apartment Do you presently have visiting nurse or other home services: No Alcohol intake: never Patient Tobacco Use Status: Never used Tobacco e-Cigarette/Vaping Use: Never Used Second Hand Smoke Exposure: No Advance Directives Date on File: 12/05/21 service: No Current occupational status: disabled Sexual orientation: Straight/Heterosexual Gender identity: Female Cognitive needs: Yes (walker) Hearing needs: No Vision needs: Yes (glasses) Female Reproductive History Menstrual Age of Menarche: 12 Review of Systems Const All systems reviewed & are unremarkable except as noted in HPI and below ENT Denies dysphagia Card Denies chest pain and Denies dyspnea Resp Denies dyspnea GI Denies abdominal pain, Denies hematochezia, Reports constipation, Denies dysphagia, Denies early satiety, Denies heartburn, Reports diarrhea, Denies nausea and Denies vomiting Musc Reports abnormal gait Neuro Reports abnormal gait Physical Exam Vital Signs: Last Vital Signs Pulse 79 12/02/23 10:20 BP 150/66 H 12/02/23 10:20 Const General: cooperative, healthy appearing and comfortable Orientation/consciousness: patient oriented x3 Limitations: language barrier and ambulation with walker Eyes Sclerae: sclerae normal Resp Effort & Inspection: normal respiratory effort and able to speak in complete sentences Auscultation: clear to auscultation bilaterally, no rales, no rhonchi and no wheezes Cardio Rate: regular rate Rhythm: regular rhythm Heart sounds: S1 normal heart sound present and S2 normal heart sound present GI Inspection: Yes obesity Palpation (GI): Soft to palpation and nontender Auscultation: normal bowel sounds Neuro General: patient oriented x3 Psych Appearance: grossly normal and well kempt Mental Status: mental status grossly normal Speech and movement: Normal speech and movement present Affect: normal affect Attitude: cooperative Thought process: Normal thought process present Thought content: Normal thought content present Insight: Good insight present (Psych) Judgement: Good judgement present (Psych) Assessment & Plan Assessment & Plan (1) Encounter for screening colonoscopy: Comment: A very pleasant alert 63-year-old Code(s): Z12.11 - Encounter for screening for malignant neoplasm of colon Plan: Screening colonoscopy (2) Chronic constipation: Code(s): K59.09 - Other constipation Plan: Continue to follow bowel regimen Maintain high-fiber Plan ays !/2 dose insulin maye before No DM meds morning Interp pls Orders: Orders Colonoscopy - GI Use Only Today Z12.11 - Encounter for screening for malignant neoplasm of colon Medications: New polyethylene glycol 3350 (Miralax) Take as directed by mouth the day before your procedure. 238 grams PO ONCE 1 day PRN 238 grams 0RF laxative effect bisacodyl (Dulcolax (bisacodyl)) Day before procedure @ 12 noon Take 4 tablets by mouth followed by large glass of water 20 mg (4 x 5 mg) PO ONCE 1 day PRN 4 tabs 0RF colonoscopy prep Z12.11 - Encounter for screening for malignant neoplasm of colon Patient Instructions: Screening Colon MG prep, reviewed , literature review Trulicity- hold for 1 week prior to colonoscopy Half dose insulin evening before procedure No diabetes medications morning of procedure Needs to be escorted due to anesthesia Rare risks discussed opportunity for questions Patient seen with motor vehicle parts interpreter Coding Level of Care Code New Pt Level 3 (84619) Diagnoses Encounter for screening colonoscopy Z12.11 Chronic constipation K59.09 Time Spent (min) 30
[2023-12-02 10:20] VITALS: BP 150/66; PULSE 79
== END 2023-12-02 11:11 | disposition home or self-care (01) ==
PROVIDERS: PCP Internal Medicine; Visit Provider Physician Assistant
DX: Z12.11 Encounter for screening for malignant neoplasm of colon (principal); K59.09 Other constipation; Z01.818 Encounter for other preprocedural examination
CPT/HCPCS: 99203

== ENCOUNTER → 2023-12-02 10:02 | Outpatient (BNVA) | payer OTHER, SELFPAY | PROVIDERS: PCP Internal Medicine; Visit Provider Physician Assistant | DX: Z01.818 Encounter for other preprocedural examination (principal); K59.09 Other constipation | CPT/HCPCS: 99202 ==

== ENCOUNTER 2024-02-08 09:54 | Outpatient (AMB) | payer OTHER, SELFPAY ==
[2024-02-08 10:26] VITALS: BP 150/92; BMI 29.8
--- NOTE | 2024-02-08 10:26 | A.OFFPC_ITS ---
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: No Accompanied by: Self / Same As Patient Allergies shellfish derived Allergy (Intermediate, Verified 02/08/24 10:54) Swelling, Hives penicillin G [Penicillin G] Allergy (Mild, Verified 02/08/24 10:54) RASH penicillin V Allergy (Unknown, Verified 02/08/24 10:54) rash, swelling Penicillins Allergy (Verified 02/08/24 10:54) Unknown Medication List - Last Reviewed 02/08/24 by MCKENNA Saenz acetaminophen 500 mg PO Q6H PRN 30 days acyclovir 400 mg PO TID 30 days amitriptyline 10 mg PO BEDTIME 90 days amlodipine 5 mg PO DAILY atorvastatin 10 mg PO DAILY 90 days bisacodyl (Dulcolax (bisacodyl)) 20 mg (4 x 5 mg) PO ONCE PRN 1 day blood sugar diagnostic ([employer] No Coding strips) Use 1 test strip twice a day blood-glucose meter (FreeStyle Lite Meter kit) As directed blood-glucose meter ([employer] Autocode Meter kit) As directed divalproex ER 1,000 mg (2 x 500 mg) PO BEDTIME 90 days dulaglutide (Trulicity) 1.5 mg (0.5 mL) subcut QWEEK 30 days furosemide 40 mg PO DAILY insulin aspart U-100 (Novolog FlexPen U-100 Insulin aspart) 10 units (0.1 mL) subcut TID 90 days insulin glargine (Lantus Solostar U-100 Insulin) 48 units (0.48 mL) subcut DAILY 90 days lancets ([employer] Lancets) Use 1 lancet four times a day lisinopril 40 mg (2 x 20 mg) PO DAILY 90 days miscellaneous medical supply Grab bars for shower miscellaneous; omeprazole 20 mg PO DAILY pen needle, diabetic (BD Ultra-Fine Short Pen Needle) As Directed pen needle, diabetic (1st Tier Unifine Pentips) Use 1 pen needle three times a day polyethylene glycol 3350 (Miralax) 238 grams PO ONCE PRN 1 day ropinirole 0.5 mg (2 x 0.25 mg) PO BID 90 days tolterodine ER 2 mg PO DAILY 90 days trazodone 100 mg PO BEDTIME Tobacco use date assessed: 10/06/23 Fall risk assessment: No Falls in past year Last assessed Fall Risk: 02/08/24 Dental Screening Dental Screen Date: 10/06/23 HPI HPI Comments History of Present Illness Details This is a 64-year-old female with diabetes mellitus type 2 on long-term current use of insulin, hypertension, hypercholesterolemia, mild major depression and schizophrenia that comes today for follow-up on her conditions. She walks with a walker for gait stability. A1c slightly elevated and I add short-acting insulin. She has not take her blood glucose because she does not have a glucometer. I have sent 3 different glucometers already. Blood pressure stable. LDL within goal. Depression and schizophrenia are follow by Psychiatry and has been stable with medications. No chest pain or shortness of breath. [facility] Medical History (Updated 02/08/24 @ 12:23 by Evelia Donald MD) Osteoporosis Diabetes Hypertension History of blood clot in brain Cancer of left breast Hypercholesteremia HSV-2 (herpes simplex virus 2) infection Arthritis Rheumatic fever Schizophrenia GERD (gastroesophageal reflux disease) Depression HTN (hypertension) Hyperlipemia Diabetes Surgical History History of tubal ligation History of cystostomy History of 2 sections Family History Sister Age: 63 Osteoarthritis Mother Cancer of lymphatic and hematopoietic tissue, Onset Age: 83 COVID-19 Father FH: heart attack Brother FH: heart attack Other Diabetes HTN (hypertension) Mental health disorder Social History Household Members: Family Household Members Other:: sister Housing: Apartment Do you presently have visiting nurse or other home services: No Alcohol intake: never Patient Tobacco Use Status: Never used Tobacco e-Cigarette/Vaping Use: Never Used Second Hand Smoke Exposure: No Advance Directives Date on File: 12/05/21 service: No Current occupational status: disabled Sexual orientation: Straight/Heterosexual Gender identity: Female Cognitive needs: Yes (walker) Hearing needs: No Vision needs: Yes (glasses) Female Reproductive History Menstrual Age of Menarche: 12 Questionnaire Thrive Questionnaire Date Thrive assessed: 10/06/23 ÓSCAR-7 AMB Questionnaire ÓSCAR-7 Date ÓSCAR - 7 assessed: 10/06/23 Source: Developed by Drs. Rajendra Gutierrez, Juanita Junior, Tyson Mike and colleagues, with an educational otis from [employer]. Review of Systems Const All systems reviewed & are unremarkable except as noted in HPI and below Card Denies chest pain at rest, Denies chest pain with activity, Denies edema, Denies irregular heart rhythm, Denies claudication, Denies dyspnea, Denies dyspnea on exertion, Denies orthopnea, Denies paroxysmal nocturnal dyspnea and Denies slow heart rate Resp Denies cough, Denies dyspnea and Denies dyspnea on exertion GI Denies abdominal pain, Denies change in bowel habits, Denies excessive flatus, Denies nausea and Denies vomiting Denies urinary incontinence, Denies urinary hesitancy and Denies urinary urgency Physical exam (Primary Care) Vital Signs: Last Vital Signs BP 150/92 H 02/08/24 10:26 BMI result Body Mass Index 29.8 Tobacco/Smoking Status: Tobacco use Status Tobacco use date assessed 10/06/23 02/08/24 10:30 Patient Tobacco Use Status Never used Tobacco 02/08/24 10:30 e-Cigarette/Vaping Use Never Used 02/08/24 10:30 Thrive Assessment: Date of Thrive Assessment Date Thrive assessed 10/06/23 02/08/24 10:30 Resp Effort & Inspection: normal respiratory effort Auscultation: clear to auscultation bilaterally Cardio Jugular venous distension: no JVD Rate: regular rate Rhythm: regular rhythm Heart sounds: S1 normal heart sound present and S2 normal heart sound present Extrem General: Yes full ROM Results AMB Hemoglobin A1c AMB Hemoglobin A1c 7.6 % Last Edit by MCKENNA Saenz on 02/08/24 10:4 2 Results Reviewed Results Reviewed: Laboratory Last Values Hgb A1c (Clinic) 7.6 % (4.0-6.0) H 02/08/24 10:41 Assessment and Plan Assessment & Plan (1) Diabetes mellitus, type II, insulin dependent: Code(s): E11.9 - Type 2 diabetes mellitus without complications; 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 Add short-acting insulin. A1c goal is equal or less than 7%. (2) HTN (hypertension): Code(s): I10 - Essential (primary) hypertension Qualifiers: Hypertension type: primary hypertension Qualified Code(s): I10 - Essent ial (primary) hypertension Plan: Continue lisinopril and amlodipine. Blood pressure goal is equal or less than 130/80. (3) Schizophrenia: Comment: provisional dx Code(s): F20.9 - Schizophrenia, unspecified Qualifiers: Schizophrenia type: paranoid schizophrenia Qualified Code(s): F20.0 - Paranoid schizophrenia Plan: Follow-up with psychiatry. (4) Mild major depression: Code(s): F32.0 - Major depressive disorder, single episode, mild Plan: Follow-up with psychiatry. (5) Hypercholesteremia: Code(s): E78.00 - Pure hypercholesterolemia, unspecified Plan: Continue statins. LDL goal is less than 70. 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 insulin Changed From lancets ([employer] Lancets) Use 1 lancet twice a day 100 ea 3RF E11.9 - Type 2 diabetes mellitus without complications, 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.4 - 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 insulin To lancets ([employer] Lancets) Use 1 lancet four times a day 100 ea 11RF E11.9 - Type 2 diabetes mellitus without complications, Z79.4 - snf (current) use of insulin Refilled blood sugar diagnostic ([employer] No Coding strips) Use 1 test strip twice a day 50 ea 6RF E11.9 - Type 2 diabetes mellitus without complications, Z79.4 - snf (current) use of insulin blood-glucose meter ([employer] Autocode Meter kit) As directed 1 ea 0RF E11.9 - Type 2 diabetes mellitus without complications, 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
== END 2024-02-08 11:21 | disposition home or self-care (01) ==
PROVIDERS: PCP Internal Medicine; Visit Provider Internal Medicine
DX: E11.9 Type 2 diabetes mellitus without complications (principal); Z79.4 Long term (current) use of insulin; F20.0 Paranoid schizophrenia; F32.0 Major depressive disorder, single episode, mild; I10 Essential (primary) hypertension; E78.00 Pure hypercholesterolemia, unspecified
CPT/HCPCS: 83036; 99214

== ENCOUNTER 2024-03-21 08:03 | Outpatient (REF) | payer OTHER, SELFPAY ==
--- NOTE | ~2024-03-21 | MM_ITS ---
EXAMINATION: MM SCREENING DIGITAL BREAST TOMOSYNTHESIS, BILATERAL CLINICAL INFORMATION: Screening. Asymptomatic. COMPARISON: Mammography: This study is compared with prior exams dating back to 2022. TECHNIQUE: Digital breast tomosynthesis is performed in both the craniocaudal and mediolateral oblique views along with computer-aided detection (CAD). Synthesized 2D images are generated from the tomosynthesis. FINDINGS: There are scattered areas of fibroglandular density (ACR BI-RADS breast composition Category b). There are no significant masses, abnormal calcifications, or other abnormalities. MM/MM tomosynthesis screening BI IMPRESSION: No mammographic evidence of malignancy. ASSESSMENT: BI-RADS BI-RADS 1 - Negative RECOMMENDATION: Routine annual mammography screening. 1 year F/U This examination should not preclude the clinical evaluation of a suspicious palpable abnormality. This patient's information was entered into a reminder system with a target due date for their next mammogram.
== END 2024-03-21 08:04 | disposition home or self-care (01) ==
LOC: HO.MAMMO 08:03
PROVIDERS: PCP Internal Medicine; Visit Provider Internal Medicine
DX: Z12.31 Encounter for screening mammogram for malignant neoplasm of breast (principal)
CPT/HCPCS: 77063; 77067

== ENCOUNTER → 2024-03-21 08:15 | Outpatient (BNV) | payer OTHER, SELFPAY | PROVIDERS: PCP Internal Medicine; Visit Provider Radiology Diagnostic Radiology | DX: Z12.31 Encounter for screening mammogram for malignant neoplasm of breast (principal) | CPT/HCPCS: 77063; 77067 ==

== ENCOUNTER 2024-03-22 08:59 | Outpatient (REF) | payer OTHER, SELFPAY ==
[2024-03-24 20:39] LABS: TS Negative Control Passed; TS Panel A 0; TS Panel B 0; TS Positive Control Passed; TSpotTB Negative (Negative)
== END 2024-03-22 09:00 | disposition home or self-care (01) ==
LOC: HO.LAB 08:59
PROVIDERS: PCP Internal Medicine; Visit Provider Internal Medicine
DX: Z11.1 Encounter for screening for respiratory tuberculosis (principal)
CPT/HCPCS: 36415; 86481

== ENCOUNTER 2024-04-29 07:10 | Day surgery (SDC) | payer OTHER, SELFPAY ==
[2024-04-27 13:12] VITALS: BMI 29.9
[2024-04-29] MEDS: Lactated Ringers 1,000 ML 100 ML IVCONT (07:33)
[2024-04-29 07:43] LABS: Glucose, Whole Blood 75 mg/dL (60-115)
[2024-04-29 07:46] VITALS: BP 132/68; PULSE 78; RESP 18; TEMP 36.7; O2SAT 99; BMI 28.7
[2024-04-29] MEDS: Dextrose 5 % 250 ML 125 ML IVCONT (08:13)
--- NOTE | 2024-04-29 08:14 | PC.NURSE ---
dr. jimenez made aware that patient took 1/2 dose lantus of 24 units this morning. Patient had checked poc at home and it was 85. Poc checked here upon arrival and was 75. patient asymptomatic. doctor ordered 5% dextrose 250 ml. will re-assess poc prior to procedure.
--- NOTE | 2024-04-29 08:21 | MHC.SHP ---
Pre-Procedural Eval Section A - 24 Hr Update-Section A only Date of Service: 04/29/24 The patient is an INPATIENT: No The patient has been examined within 24 hours of the surgical procedure. The History & Physical has been completed within 30 days and I have reviewed it.: No Section B - Complete if H&P > 30 days Chief Complaint: Colon cancer screening Relevant Family History (Specify if Yes): No Relevant Social History: None Present Medications: see Short Stay Collaborative assessment Medical History: Significant History (Osteoporosis Diabetes Hypertension History of blood clot in brain Cancer of left breast Hypercholesteremia HSV-2 (herpes simplex virus 2) infection Arthritis Rheumatic fever Schizophrenia GERD (gastroesophageal reflux disease) Depression HTN (hypertension) Hyperlipemia) History of Previous Operations: Relevant previous surgery/procedure and date(s) (History of tubal ligation History of cystostomy History of 2 sections) Allergies: Allergies Allergy/AdvReac Type Severity Reaction Status Date / Time Penicillins Allergy Intermediate rash/swelli Verified 04/29/24 07:18 ng shellfish derived Allergy Intermediate Swelling, Verified 04/29/24 07:18 Hives Review of Systems Sugical H&P ROS: Negative: Constitution, Cardiovascular, Respiratory and Gastrointestinal Exam Surgical H&P Exam: Normal: Heart, Normal: Lungs, Normal: Extremities and Normal: Abdomen Plan Diagnosis/Plan: Unchanged I have reviewed the history and physical and performed a pertinent physical examination on my patient. No changes have occurred unless specified. Time Spent With Patient Time: Total time managing care of this patient today ____ minutes.
[2024-04-29 08:28] LABS: Glucose, Whole Blood 85 mg/dL (60-115)
--- NOTE | 2024-04-29 08:29 | HO.ANESPROP2 ---
HPI - Anesthesia Eval Consult details Narrative: 64 yo female patient for Colonoscopy Anesthesia Pre-Procedure Meds Is the patient on any of the following meds?: GLP1/DPP4 (Last dose dulaglutide 04/15/24) If yes to any meds - educate patient: Pt education - increased risk of aspiration and/or euvolemic DKA PMFSH Active Problems Active Problems: All Active Problems (Updated 04/29/24 @ 08:09 by Isamar Dockery RN) Polyarthralgia (Acute) Chronic constipation (Acute) Encounter for screening colonoscopy (Acute) Physical exam (Acute) Well woman exam (Acute) Urinary incontinence, urge (Acute) Weak urinary stream (Acute) Lower urinary tract symptoms (Acute) Urinary frequency (Acute) Costovertebral angle tenderness (Acute) Abnormal EKG (Acute) COVID-19 (Acute) COVID-19 (Acute) Vulvar lesion (Acute) Blister (nonthermal) of vagina and vulva, sequela (Acute) Herpes dermatitis (Acute) Bilateral leg edema (Acute) Seasonal allergies (Acute) Multiple joint pain (Acute) Family history of premature CAD (Acute) Bilateral leg edema (Acute) Unsteady gait (Acute) Hypothyroid (Acute) Mild major depression (Acute) Anxiety (Acute) Encounter to establish care (Acute) Diabetic neuropathy (Acute) Diabetes mellitus, type II, insulin dependent (Acute) Breast cancer screening (Acute) Uncontrolled hypertension (Acute) Hypercholesteremia (Acute) HSV-2 (herpes simplex virus 2) infection (Acute) GERD (gastroesophageal reflux disease) (Acute) HTN (hypertension) (Acute) Schizophrenia (Acute) Past Medical History Medical History (Updated 04/29/24 @ 08:09 by Isamar Dockery RN) Osteoporosis Hypertension History of blood clot in brain Hypercholesteremia HSV-2 (herpes simplex virus 2) infection Arthritis Rheumatic fever Schizophrenia GERD (gastroesophageal reflux disease) Depression HTN (hypertension) Hyperlipemia Diabetes Family History Family History Sister Age: 63 Osteoarthritis Mother Cancer of lymphatic and hematopoietic tissue, Onset Age: 83 COVID-19 Father FH: heart attack Brother FH: heart attack Other Diabetes HTN (hypertension) Mental health disorder Family history of problems with anesthesia: No Surgical History Surgical History History of tubal ligation History of cystostomy History of 2 sections History of Problems with Anesthesia: No Social History Social History Household Members: Family Household Members Other:: sister Housing: Apartment Do you presently have visiting nurse or other home services: No Alcohol intake: never Patient Tobacco Use Status: Never used Tobacco e-Cigarette/Vaping Use: Never Used Second Hand Smoke Exposure: No Are you DNR?: No Advance Directives: No Advance Directives Information Provided: Yes Advance Directives Date on File: 12/05/21 Nutrition Risks: No Nutritional Risk service: No Current occupational status: disabled Sexual orientation: Straight/Heterosexual Gender identity: Female Cognitive needs: Yes (walker) Hearing needs: No Vision needs: Yes (glasses) Meds Allergies Allergy/AdvReac Type Severity Reaction Status Date / Time Penicillins Allergy Intermediate rash/swelli Verified 04/29/24 07:18 ng shellfish derived Allergy Intermediate Swelling, Verified 04/29/24 07:18 Hives Active Medications: Current Medications Lactated Ringer's (Lr) 1,000 mls @ 100 mls/hr IVCONT .Q10H CASANDRA Last Admin: 04/29/24 07:33 Dose: 100 mls/hr Dextrose (D5w) 250 mls @ 125 mls/hr IVCONT .Q2H CASANDRA Last Admin: 04/29/24 08:13 Dose: 125 mls/hr Exam Height,Weight and Vital Signs: Height 5 ft 6 in Weight 80.739 kg Last Vital Signs Temp 98.1 F 04/29/24 07:46 Pulse 78 04/29/24 07:46 Resp 18 04/29/24 07:46 BP 132/68 04/29/24 07:46 Pulse Ox 99 04/29/24 07:46 O2 Del Method Room Air 04/29/24 07:46 Pertinent Lab Results Pertinent Lab Results: Laboratory Tests 04/29/24 04/29/24 07:38 08:25 POC Glucose 75 85 Airway Mallampati Class: II TM Dist: >3cm Neck ROM: Full Loose/Missing/Broken Teeth: Yes (Some missing teeth. Denies broken or loose teeth) Heart: RRR + ?murmur Lungs: CTAB Assessment and Plan Assessment Anesthesia Assessment: Anesthesia Plan Discussed and Chart Reviewed Final Anesthetic Review Family History of Problems with Anesthesia: No History of Problems with Anesthesia: No NPO: Yes ASA Class: III Final Preanesthetic Review: No Changes in Pt Med Stat, Meds/Allgs Chart Reviewed, Consent Obtained/Reviewed and Anes Risks/Benef Reviewed Patient Risk: Intermediate Procedure Risk: Low Assessment/Block/Sedation in SS: Assess/Block/Sedation-SS Anesthetic Plan Anesthetic Plan: TIVA Disposition: Standard PACU
--- NOTE | 2024-04-29 09:37 | HO.OPN-COLON ---
Colonoscopy Operative Note Operative Note Date of Service: 04/29/24 Narrative: COLONOSCOPY TILL CECUM WITH BIOPSIES, SNARE POLYPECTOMY, SUBMUCOSAL INJECTION AND HEMOCLIP PLACEMENT Pre-op diagnosis: Colon cancer screening, (2nd colon - per pt negative colon in 2008 in [place]). Post-op diagnosis:? Colon polyps, Diverticulosis ?C. transverse colon polyp ?D. left sigmoid colon polyp Endoscopist:? Pavan Cooney MD Anesthesia:?MAC Consent: Indications for the procedure and potential complications of bleeding, perforation, reaction to medications and missed diagnosis were discussed with the patient and informed consent was obtained. Instrument: Olympus PCF H 190 L variable stiffness pediatric colonoscope Monitoring: Vital signs and clinical assessment, intermittent blood pressure monitoring, continuous EKG monitoring, Pulse oximetry and Carbon Dioxide monitoring were done throughout the procedure. Please see anesthesia flowsheet. Colon withdrawl time was 31 minutes. Procedure: The patient was placed in the left lateral decubitis position and pre-procedure medications were administered. After a digital rectal examination of the ano-rectum, the video colonoscope was inserted into the rectum and advanced through the colon to the cecum. The colonoscope was slowly withdrawn in a retrograde panoramic fashion and the colon mucosa was carefully examined including a retroflexed view of the rectum. Findings and interventions are described below. Procedure Difficulty: Colon was long and there was some loop formation Findings: Terminal Ileum: Not evaluated. Cecum: Three 2-3 mm sessile polyps - removed with a cold biopsy Ascending Colon: A 10 mm flat polyp in the mid AC. Polyp was raised with 1 cc of [place] and removed with a stiff hot snare. Polypectomy site was closed with 1 hemoclip. A 10 mm sessile polyp in the distal AC - removed with a hot snare Transverse Colon: A 12-15 mm sessile polyp - removed with a hot snare Descending Colon: Normal Sigmoid Colon: A 12 -15 mm sessile polyp - removed with a hot snare. Moderate diverticulosis Rectum: Normal Ano-rectum: Normal Colon preparation: Good after copious irrigation. [place] Bowel Preparation Scale Right colon; 2 Transverse colon: 2 Left colon; 2 (0 = Unprepared colon segment with mucosa not seen due to solid stool that cannot be cleared. 1 = Portion of mucosa of the colon segment seen, but other areas of the colon segment not well seen due to staining, residual stool and/or opaque liquid. 2 = Minor amount of residual staining, small fragments of stool and/or opaque liquid, but mucosa of colon segment seen well. 3 = Entire mucosa of colon segment seen well with no residual staining, small fragments of stool or opaque liquid) Impression and Post Procedure Diagnosis: Colonoscopy Findings: Three small and four medium sized polyps were removed Moderate diverticulosis seen in the sigmoid colon Plan: Pt has a FU appointment on 05/12/[address] Cooney Repeat Colonoscopy in 2-3 years if polyps are adenomatous and 10 year if polyps are hyperplastic. Above findings were reviewed with the patient and relevant handouts were given and the discharge area.
[2024-04-29 09:42] VITALS: BP 109/87; PULSE 86; RESP 18; TEMP 36.3; O2SAT 99
[2024-04-29 10:00] VITALS: BP 143/84; PULSE 75; RESP 18; TEMP 36.3; O2SAT 99
== END 2024-04-29 10:36 | disposition home or self-care (01) ==
PROVIDERS: PCP Internal Medicine; Visit Provider Internal Medicine Gastroenterology
PROC: 0DJD8ZZ Inspection of Lower Intestinal Tract, Via Natural or Artificial Opening Endoscopic (ICD-10-PCS; CPT 45378; principal; 2024-04-29 08:30)
DX: Z12.11 Encounter for screening for malignant neoplasm of colon (principal); D12.0 Benign neoplasm of cecum; D12.2 Benign neoplasm of ascending colon; D12.3 Benign neoplasm of transverse colon; D12.5 Benign neoplasm of sigmoid colon; K57.30 Diverticulosis of large intestine without perforation or abscess without bleeding; K59.09 Other constipation; K21.9 Gastro-esophageal reflux disease without esophagitis; E11.9 Type 2 diabetes mellitus without complications; I10 Essential (primary) hypertension; E78.5 Hyperlipidemia, unspecified; F20.9 Schizophrenia, unspecified; Z86.718 Personal history of other venous thrombosis and embolism; Z79.4 Long term (current) use of insulin; Z79.85 Long-term (current) use of injectable non-insulin antidiabetic drugs; Z79.899 Other long term (current) drug therapy; Z88.0 Allergy status to penicillin; Z98.890 Other specified postprocedural states
CPT/HCPCS: 45385; 45380; 45381; 82947; 88305; J2704

== ENCOUNTER → 2024-04-29 07:10 | Outpatient (BNV) | payer OTHER, SELFPAY | PROVIDERS: PCP Internal Medicine; Visit Provider Internal Medicine Gastroenterology | DX: Z12.11 Encounter for screening for malignant neoplasm of colon (principal); D12.0 Benign neoplasm of cecum; D12.2 Benign neoplasm of ascending colon; D12.3 Benign neoplasm of transverse colon; D12.5 Benign neoplasm of sigmoid colon; K57.30 Diverticulosis of large intestine without perforation or abscess without bleeding | CPT/HCPCS: 45380; 45381; 45385 ==

== ENCOUNTER 2024-05-12 09:49 | Outpatient (AMB) | payer OTHER, MEDICAID, SELFPAY ==
--- NOTE | 2024-05-12 10:02 | MHC.OFFVIS ---
Vital Signs 05/12/24 10:11 Height 5 ft 6 in Weight 175 lb BMI 28.2 BP 148/74 H Blood Pressure Location Lt brachial Position Sitting Pulse 79 Intake Visit Reasons: S/P Serena Intake Note: Patient follow up for Colonoscopy results. Patientcc : Constipation and needed medication for it. Denies any other GI issues. 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 [place] [facility] [place] Accompanied by: Self / Same As Patient Allergies Penicillins Allergy (Intermediate, Verified 05/12/24 10:04) rash/swelling shellfish derived Allergy (Intermediate, Verified 05/12/24 10:04) Swelling, Hives Medication List - Last Reconciled 05/12/24 by Pavan Cooney MD acetaminophen 500 mg PO Q6H PRN 30 days acyclovir 400 mg PO TID 30 days amitriptyline 10 mg PO BEDTIME 90 days amlodipine 5 mg PO DAILY atorvastatin 10 mg PO DAILY 90 days blood sugar diagnostic ([employer] No Coding strips) Use 1 test strip twice a day blood-glucose meter (FreeStyle Lite Meter kit) As directed blood-glucose meter ([employer] Autocode Meter kit) As directed divalproex ER 1,000 mg (2 x 500 mg) PO BEDTIME 90 days dulaglutide (Trulicity) 1.5 mg (0.5 mL) subcut QWEEK 30 days furosemide 40 mg PO DAILY insulin aspart U-100 (Novolog FlexPen U-100 Insulin aspart) 10 units (0.1 mL) subcut TID 90 days insulin glargine (Lantus Solostar U-100 Insulin) 48 units (0.48 mL) subcut DAILY 90 days lancets ([employer] Lancets) Use 1 lancet four times a day lisinopril 40 mg (2 x 20 mg) PO DAILY 90 days miscellaneous medical supply Grab bars for shower miscellaneous; omeprazole 20 mg PO DAILY pen needle, diabetic (BD Ultra-Fine Short Pen Needle) As Directed pen needle, diabetic (1st Tier Unifine Pentips) Use 1 pen needle three times a day ropinirole 0.5 mg (2 x 0.25 mg) PO BID 90 days tolterodine ER 2 mg PO DAILY 90 days trazodone 100 mg PO BEDTIME HPI HPI S/P Serena: Details: GI clinic visit for this 64 year old [place] Citizen-speaking female to discuss colonoscopy [facility] IMAGING STUDIES: No recent GI imaging studies ENDOSCOPIC STUDIES: 04/29/24 COLONOSCOPY SHOWED: Three small and four medium sized polyps were removed Moderate diverticulosis seen in the sigmoid colon Plan: Repeat Colonoscopy in 2 years if polyps are adenomatous and 10 year if polyps are hyperplastic. BIOPSIES SHOWED: A. Colon, cecal polyps: Tubular adenoma (1 piece); negative for high-grade dysplasia and carcinoma, and polypoid colonic mucosa with scant hyperplastic changes consistent with hyperplastic polyp (1 piece). B. Colon, ascending, polyps: Tubular adenomas (1 piece); negative for high-grade dysplasia and carcinoma, and sessile serrated lesion/polyp without dysplasia (1 piece). C. Colon, transverse, polyp: Tubular adenoma; negative for high-grade dysplasia and carcinoma. D. Colon, left sigmoid, polyp: Tubular adenoma; negative for high-grade dysplasia and carcinoma. TODAY'S VISIT[place] [facility] [place] Business Manager[place]atherine Colon results reviewed with the patient. Pt complains of chronic constipation and has a BM Denies taking any medication for constipation. Patient denies symptoms of heartburn, dysphagia, nausea, vomiting, change in appetite or weight. Denies recent change in bowel habits, diarrhea, black stools or rectal bleeding. Patient denies major cardiac or pulmonary problems, loud snoring or sleep apnea Denies problems with anesthesia in the past. Denies being on chronic anticoagulation. Patient denies known family history of colon polyps, colon cancer or other GI malignancies. [facility] Medical History (Updated 05/12/24 @ 12:35 by Pavan Cooney MD) Osteoporosis Hypertension History of blood clot in brain Hypercholesteremia HSV-2 (herpes simplex virus 2) infection Arthritis Rheumatic fever Schizophrenia GERD (gastroesophageal reflux disease) Depression HTN (hypertension) Hyperlipemia Diabetes Surgical History Hx of colonoscopy History of tubal ligation History of cystostomy History of 2 sections Family History Sister Age: 63 Osteoarthritis Mother Cancer of lymphatic and hematopoietic tissue, Onset Age: 83 COVID-19 Father FH: heart attack Brother FH: heart attack Other Diabetes HTN (hypertension) Mental health disorder Social History Household Members: Family Household Members Other:: sister Housing: Apartment Do you presently have visiting nurse or other home services: No Alcohol intake: never Patient Tobacco Use Status: Never used Tobacco e-Cigarette/Vaping Use: Never Used Second Hand Smoke Exposure: No Advance Directives Date on File: 12/05/21 service: No Current occupational status: disabled Sexual orientation: Straight/Heterosexual Gender identity: Female Cognitive needs: Yes (walker) Hearing needs: No Vision needs: Yes (glasses) Female Reproductive History Menstrual Age of Menarche: 12 Review of Systems Const All systems reviewed & are unremarkable except as noted in HPI and below Physical Exam Vital Signs: Last Vital Signs Pulse 79 05/12/24 10:11 BP 148/74 H 05/12/24 10:11 BMI result Body Mass Index 28.2 Const General: no acute distress Nutritional Appearance: overweight Orientation/consciousness: patient oriented x3 Limitations: language barrier and ambulation with walker HEENT Head: Yes normal to inspection Ears: hearing grossly normal bilaterally Eyes Sclerae: sclerae normal Pupils: Equal, round and reactive pupils present Neck Neck: Yes normal visual inspection Chest Chest palpation & inspection: normal inspection of the chest Resp Effort & Inspection: normal respiratory effort Auscultation: clear to auscultation bilaterally Cardio Palpation: normal PMI Rate: regular rate Rhythm: regular rhythm Heart sounds: S1 normal heart sound present, S2 normal heart sound present and no murmurs GI Palpation (GI): Soft to palpation, nontender and No hepatosplenomegaly present Auscultation: normal bowel sounds Rectal Exam - Female: deferred Skin General skin exam: no rashes or lesions noted Neuro General: patient oriented x3, gait normal and moves all extremities Cranial nerves: Yes Equal, round and reactive pupils present Psych Appearance: grossly normal Mental Status: mental status grossly normal Assessment & Plan Assessment & Plan (1) Chronic constipation: Code(s): K59.09 - Other constipation Category: Medical (2) History of colon polyps: Code(s): Z86.010 - Personal history of colonic polyps Category: Medical Plan: 04/29/24 COLONOSCOPY SHOWED: Three small and four medium sized polyps were removed Moderate diverticulosis seen in the sigmoid colon Plan: Repeat Colonoscopy in 2 years since polyps were adenomatous Plan 64 year old [place] Citizen-speaking female followed in GI for chronic constipation and colon polyps removed during recent colonoscopy 04/29/24 COLONOSCOPY SHOWED: Three small and four medium sized polyps were removed Moderate diverticulosis seen in the sigmoid colon Plan: Repeat Colonoscopy in 2 years if polyps are adenomatous and 10 year if polyps are hyperplastic. BIOPSIES SHOWED: A. Colon, cecal polyps: Tubular adenoma (1 piece); negative for high-grade dysplasia and carcinoma, and polypoid colonic mucosa with scant hyperplastic changes consistent with hyperplastic polyp (1 piece). B. Colon, ascending, polyps: Tubular adenomas (1 piece); negative for high-grade dysplasia and carcinoma, and sessile serrated lesion/polyp without dysplasia (1 piece). C. Colon, transverse, polyp: Tubular adenoma; negative for high-grade dysplasia and carcinoma. D. Colon, left sigmoid, polyp: Tubular adenoma; negative for high-grade dysplasia and carcinoma. Patient advised to take senna daily for constipation. Follow-up in 4 months Medications: New sennosides-docusate sodium 8.6-50 mg (Senna with Docusate Sodium) Please take every other day at bedtime 1 tab-cap PO BEDTIME 60 days 60 tabs 2RF K59.09 - Other constipation Coding Level of Care Code Est Pt Level 4 (71949) Diagnoses Chronic constipation K59.09 History of colon polyps Z86.010 Time Spent (min) 20
[2024-05-12 10:11] VITALS: BP 148/74; PULSE 79; BMI 28.2
== END 2024-05-12 10:37 | disposition home or self-care (01) ==
PROVIDERS: PCP Internal Medicine; Visit Provider Internal Medicine Gastroenterology
DX: K59.09 Other constipation (principal); Z86.010 Personal history of colon polyps
CPT/HCPCS: 99214

== ENCOUNTER → 2024-05-12 09:49 | Outpatient (BNVA) | payer OTHER, SELFPAY | PROVIDERS: PCP Internal Medicine; Visit Provider Internal Medicine Gastroenterology | DX: K59.09 Other constipation (principal); Z86.010 Personal history of colon polyps | CPT/HCPCS: 99212 ==

== ENCOUNTER 2024-05-27 09:43 | Outpatient (AMB) | payer OTHER, MEDICAID, SELFPAY ==
--- NOTE | 2024-05-27 09:51 | A.OFFVIS_ITS ---
Intake Visit Reasons: 6m/PVR Intake Note: Patient presents for follow up visit for urinary frequency Urology Medications: Tolterodine Blood Thinner: none PVR: 43ml's Child Neurologist Required: Yes Child Neurologist Services: Child Neurologist Present Child Neurologist Name: PAOLA SANCHEZISIS Accompanied by: Self / Same As Patient Allergies Penicillins Allergy (Intermediate, Verified 05/27/24 10:36) rash/swelling shellfish derived Allergy (Intermediate, Verified 05/27/24 10:36) Swelling, Hives Medication List - Last Reconciled 05/27/24 by ROB Herrera acetaminophen 500 mg PO Q6H PRN 30 days acyclovir 400 mg PO TID 30 days amitriptyline 10 mg PO BEDTIME 90 days amlodipine 5 mg PO DAILY atorvastatin 10 mg PO DAILY 90 days blood sugar diagnostic ([employer] No Coding strips) Use 1 test strip twice a day blood-glucose meter (FreeStyle Lite Meter kit) As directed blood-glucose meter ([employer] Autocode Meter kit) As directed divalproex ER 1,000 mg (2 x 500 mg) PO BEDTIME 90 days dulaglutide (Trulicity) 1.5 mg (0.5 mL) subcut QWEEK 30 days furosemide 40 mg PO DAILY insulin aspart U-100 (Novolog FlexPen U-100 Insulin aspart) 10 units (0.1 mL) subcut TID 90 days insulin glargine (Lantus Solostar U-100 Insulin) 48 units (0.48 mL) subcut DAILY 90 days ketorolac 0.5% drps ophthalmic (eye) lancets ([employer] Lancets) Use 1 lancet four times a day lisinopril 40 mg (2 x 20 mg) PO DAILY 90 days miscellaneous medical supply Grab bars for shower miscellaneous; omeprazole 20 mg PO DAILY pen needle, diabetic (BD Ultra-Fine Short Pen Needle) As Directed pen needle, diabetic (1st Tier Unifine Pentips) Use 1 pen needle three times a day ropinirole 0.5 mg (2 x 0.25 mg) PO BID 90 days sennosides-docusate sodium 8.6-50 mg (Senna with Docusate Sodium) 1 tab-cap PO BEDTIME 60 days tolterodine ER 2 mg PO DAILY 90 days trazodone 100 mg PO BEDTIME HPI Comments Details: Bessie is a very pleasant 64 year old Pashto-speaking female patient of Dr. Soni. She has a past medical history of osteoporosis, diabetes, hypertension, removal blood clot from her brain in 2011, cancer of the left breast in 2006, hypercholesteremia, herpes simplex virus 2, arthritis, rheumatic fever at the age of [age] years old, schizophrenia, GERD, depression, and hyperlipidemia. She presents to the office today for follow-up. In discussion with the patient today she reports to be doing and feeling well. She reports to be happy with current voiding parameters on 2 mg of tolterodine. She reports significant improvement in nocturia, urinary frequency, and urinary urgency. Previous workup has included a retroperitoneal ultrasound noting bilateral kidneys with no calculi, lesions, and or hydronephrosis. The bladder is well distended and normal. Bilateral ureteral jets are not demonstrated. Prevoid bladder volume is approximately 200 mL. Postvoid bladder volume is 20ml's. Unremarkable examina tion. She otherwise denies incontinence, hematuria, dysuria, foul smelling urine, changes to urinary stream, flank pain, fever, and or chills. She is happy with her current voiding parameters on tolterodine 2 mg daily. She reports noting lower urinary tract symptoms started many years ago after the last of her child via . She discusses following up with a urogynecologist in [place] over 20 +years ago and having had surgical intervention on her bladder. She reports having had bladder suspension. We discussed affects of diabetes in lower urinary tract symptoms as well as on the bladder. In office urinalysis results reviewed with the patient today. PVR 43 ml's. She discusses her upcoming eye surgeries as well as her recent colonoscopy with Dr. Cooney. She otherwise offers no other issues or concerns at this time. [facility] Medical History Osteoporosis Hypertension History of blood clot in brain Hypercholesteremia HSV-2 (herpes simplex virus 2) infection Arthritis Rheumatic fever Schizophrenia GERD (gastroesophageal reflux disease) Depression HTN (hypertension) Hyperlipemia Diabetes Surgical History (Updated 05/27/24 @ 10:36 by ROB Herrera) Hx of colonoscopy History of tubal ligation History of cystostomy History of 2 sections Family History Sister Age: 63 Osteoarthritis Mother Cancer of lymphatic and hematopoietic tissue, Onset Age: 83 COVID-19 Father FH: heart attack Brother FH: heart attack Other Diabetes HTN (hypertension) Mental health disorder Social History Household Members: Family Household Members Other:: sister Housing: Apartment Do you presently have visiting nurse or other home services: No Alcohol intake: never Patient Tobacco Use Status: Never used Tobacco e-Cigarette/Vaping Use: Never Used Second Hand Smoke Exposure: No Advance Directives Date on File: 12/05/21 service: No Current occupational status: disabled Sexual orientation: Straight/Heterosexual Gender identity: Female Cognitive needs: Yes (walker) Hearing needs: No Vision needs: Yes (glasses) Female Reproductive History Menstrual Age of Menarche: 12 Review of Systems Const Reports as per HPI Eyes Reports no additional complaints ENT Reports no additional complaints Card Reports as per HPI Resp Reports no additional complaints GI Reports as per HPI Reports as per HPI Neuro Reports as per HPI Psych Reports as per HPI Endo Reports as per HPI Physical Exam Const General: cooperative, healthy appearing, comfortable, no acute distress, well developed, alert and awake Orientation/consciousness: patient oriented x3 Limitations: ambulation with walker HEENT Head: Yes normal to inspection, Yes normocephalic and Yes atraumatic Ears: hearing grossly normal bilaterally Eyes General: appearance normal, both eyes and all related structures Neck Neck: Yes normal visual inspection and Yes trachea midline Chest Chest palpation & inspection: normal inspection of the chest Resp Effort & Inspection: normal respiratory effort and able to speak in complete sentences Cardio Rate: regular rate GI Inspection: Yes normal to inspection General: Yes no CVA tenderness Back/Spine/Pelvis Back: no CVA tenderness Skin General skin exam: no rashes or lesions noted Neuro General: patient oriented x3 Extrem General: Yes normal to inspection Psych Appearance: grossly normal and well kempt Mental Status: mental status grossly normal Speech and movement: Normal speech and movement present and Clear speech present Affect: normal affect Attitude: cooperative Thought process: Normal thought process present Thought content: Normal thought content present Insight: Fair insight present (Psych) Judgement: Fair judgement present (Psych) Office Procedures Post Void Residual Post Residual Void Post Void Residual (PVR): 43 [id number] Void Residual by ultrasound Results AMB Urinalysis, Automated UA Leukoctes 0 [place]/uL Last Edit by Seema Kim on 05/27/24 10:15 UA Nitrite Last Edit by Seema Kim on 05/27/24 10:15 UA Urobilinogen 0.2 mg/dL Last Edit by Seema Kim on 05/27/24 10:15 UA Protein 0 mg/dL Last Edit by [employer] Kim on 05/27/24 10:15 UA pH 6.0 Last Edit by [employer] Kim on 05/27/24 10:15 UA Blood 0 Randall/uL Last Edit by [employer] Ye[employer]ool[employer] on 05/27/24 10:15 UA Specific [place] 1.010 Last Edit by [employer]e Kim on 05/27/24 10:15 UA Ketone Negative Last Edit by [employer] Kim on 05/27/24 10:15 UA Bilirubin 0 mg/dL Last Edit by [employer]bet[employer]e Kim on 05/27/24 10:15 UA Glucose 0 mg/dL Last Edit by [employer]bet[employer]e Kim on 05/27/24 10:15 Results Reviewed Results Reviewed: Laboratory Last Values Urine pH (Auto) 6.0 05/27/24 09:54 Specific [place] (Auto) 1.010 05/27/24 09:54 Urine Protein (Auto) 0 mg/dL 05/27/24 09:54 Glucose (UA)(Auto) 0 mg/dL 05/27/24 09:54 Urine Ketones (Auto) Negative 05/27/24 09:54 Urine Blood (Auto) 0 Randall/uL 05/27/24 09:54 Urine Bilirubin (Auto) 0 mg/dL 05/27/24 09:54 Urine Urobilinogen (Auto) 0.2 mg/dL 05/27/24 09:54 Leukocyte Esterase (Auto) 0 [place]/uL 05/27/24 09:54 Assessment & Plan Assessment & Plan (1) Urinary incontinence, urge: Code(s): N39.41 - Urge incontinence Category: Medical (2) Lower urinary tract symptoms: Code(s): R39.9 - Unspecified symptoms and signs involving the genitourinary system Category: Medical (3) Urinary frequency: Comment: With urgency Code(s): R35.0 - Frequency of micturition Category: Medical Plan In office urinalysis results reviewed with the patient today; as noted above. PVR 43 mL. Continue tolterodine 2 mg daily as discussed and prescribed. Patient reports to be happy with current voiding parameters with 2 mg of tolterodine daily; refill prescription provided. Discussed at length importance of managing diabetes for improvement in lower urinary tract symptoms as well as overall health and well-being. Discussed importance of weight loss to eliminate issues with urinary symptoms the patient is experiencing as this will decrease pressure on the bladder Discussed bladder triggers/irritants. Discussed possible near future in office cystoscopy and or urodynamics if symptoms reoccur for further assessment evaluation. Follow-up in 6 months with PVR; or sooner with any issues, concerns, and or questions. Orders: Orders AMB Urinalysis Automated Today Z13.9 - Encounter for screening, unspecified AMB Post Void Residual by ultrasound Today R35.0 - Frequency of micturition Patient Instructions: The patient had an opportunity to ask questions regarding the treatment plan. All questions were answered. Physical exam, labs, and imaging were discussed and reviewed in detail. As well as risks, benefits, and discussion of treatment choices. No major barriers to understanding were identified. The patient expressed understanding and agreement with the above treatment plan. The patient was made aware they should contact our office by phone for worsening of their current condition, the appearance of new symptoms, or with any questions or concerns. Compliance is encouraged with any medications and follow up testing that is ordered. It is a privilege to be allowed the opportunity to participate in? your urological care.? Again, if you have any questions or concerns If you have any questions or concerns please do not hesitate to contact me. The office is [phone]. This note is constructed using voice recognition software. While every effort has been made to ensure accuracy transcription specialist errors may have been included. Yours sincerely, ROB Herrera Coding Level of Care Code Est Pt Level 3 (79744) Complex EM visit Add On G2211 Diagnoses Urinary incontinence, urge N39.41 Lower urinary tract symptoms R39.9 Urinary frequency R35.0 CPT Codes Post Residual Void - PVR CPT Code: 53870-Xqug Void Residual by ultrasound ([id number])
== END 2024-05-27 10:39 | disposition home or self-care (01) ==
PROVIDERS: PCP Internal Medicine; Visit Provider Nurse Practitioner Family
DX: N39.41 Urge incontinence (principal); R39.9 Unspecified symptoms and signs involving the genitourinary system; R35.0 Frequency of micturition; Z13.9 Encounter for screening, unspecified
CPT/HCPCS: 99213; G2211

== ENCOUNTER → 2024-05-27 09:43 | Outpatient (BNVA) | payer OTHER, SELFPAY | PROVIDERS: PCP Internal Medicine; Visit Provider Nurse Practitioner Family | DX: R35.0 Frequency of micturition (principal); N39.41 Urge incontinence; E11.9 Type 2 diabetes mellitus without complications | CPT/HCPCS: 51798; 81003; 99212 ==

== ENCOUNTER 2024-06-23 13:12 | Outpatient (AMB) | payer OTHER, SELFPAY ==
[2024-06-23 13:14] VITALS: BP 132/80; PULSE 81; O2SAT 99; BMI 27.1
--- NOTE | 2024-06-23 13:14 | A.OFFPC_ITS ---
Vital Signs 06/23/24 13:14 Height 5 ft 6 in Weight 168 lb BMI 27.1 BP 132/80 Blood Pressure Location Lt brachial Position Sitting Pulse 81 Pulse Source Pulse Oximeter Pulse Oximetry (%) 99 Oxygen Delivery Method Room Air Intake Visit Reasons: [facility] 06/30 Intake Note: Patient is here for a Pre-op for Cataracts scheduled with [facility] on 06/30/24 Pharmacy Coordinator Required: No Allergies Penicillins Allergy (Intermediate, Verified 06/23/24 13:33) rash/swelling shellfish derived Allergy (Intermediate, Verified 06/23/24 13:33) Swelling, Hives Medication List - Last Reconciled 06/23/24 by Monika Russo PA-C acetaminophen 500 mg PO Q6H PRN 30 days acyclovir 400 mg PO TID 30 days amitriptyline 10 mg PO BEDTIME 90 days amlodipine 5 mg PO DAILY atorvastatin 10 mg PO DAILY 90 days blood sugar diagnostic (FreeStyle Test strips) As directed Twice a day blood-glucose meter (FreeStyle Lite Meter kit) As directed blood-glucose meter (Lightwave Powery Autocode Meter kit) As directed divalproex ER 1,000 mg (2 x 500 mg) PO BEDTIME 90 days dulaglutide (Trulicity) 1.5 mg (0.5 mL) subcut QWEEK 30 days furosemide 40 mg PO DAILY insulin aspart U-100 (Novolog FlexPen U-100 Insulin aspart) 10 units (0.1 mL) subcut TID 90 days insulin glargine (Lantus Solostar U-100 Insulin) 48 units (0.48 mL) subcut DAILY 90 days ketorolac 0.5% drps ophthalmic (eye) lancets (Lightwave Powery Lancets) Use 1 lancet four times a day lisinopril 40 mg (2 x 20 mg) PO DAILY 90 days miscellaneous medical supply Grab bars for shower miscellaneous; omeprazole 20 mg PO DAILY pen needle, diabetic (BD Ultra-Fine Short Pen Needle) As Directed pen needle, diabetic (1st Tier Unifine Pentips) Use 1 pen needle three times a day ropinirole 0.5 mg (2 x 0.25 mg) PO BID 90 days sennosides-docusate sodium 8.6-50 mg (Senna with Docusate Sodium) 1 tab-cap PO BEDTIME 60 days tolterodine ER 2 mg PO DAILY 90 days trazodone 100 mg PO BEDTIME Tobacco use date assessed: 10/06/23 Fall risk assessment: No Falls in past year Last assessed Fall Risk: 06/23/24 Dental Screening Dental Screen Date: 10/06/23 HPI [facility] 06/30 HPI Details 64-year-old female with diabetes mellitu s type 2 on long-term current use of insulin, hypertension, hypercholesterolemia, mild major depression and schizophrenia that comes today for preoperative cataract surgery with [facility] left eye 06/30/2024 and right eye to be completed in 07/22/2024. diplomatic interpreter/translator was used for the duration of this appointment. Diabetes mellitus: A1c 6.2% in the office today. Currently well managed on Trulicity once weekly and insulin. Hypertension: Blood pressure at goal today 132/80. Currently on lisinopril and amlodipine. No history of [place], CVA, CHF. [facility] Medical History Osteoporosis Hypertension History of blood clot in brain Hypercholesteremia HSV-2 (herpes simplex virus 2) infection Arthritis Rheumatic fever Schizophrenia GERD (gastroesophageal reflux disease) Depression HTN (hypertension) Hyperlipemia Diabetes Surgical History Hx of colonoscopy History of tubal ligation History of cystostomy History of 2 sections Family History Sister Age: 63 Osteoarthritis Mother Cancer of lymphatic and hematopoietic tissue, Onset Age: 83 COVID-19 Father FH: heart attack Brother FH: heart attack Other Diabetes HTN (hypertension) Mental health disorder Social History Household Members: Family Household Members Other:: sister Housing: Apartment Do you presently have visiting nurse or other home services: No Alcohol intake: never Patient Tobacco Use Status: Never used Tobacco e-Cigarette/Vaping Use: Never Used Second Hand Smoke Exposure: No Advance Directives Date on File: 12/05/21 service: No Current occupational status: disabled Sexual orientation: Straight/Heterosexual Gender identity: Female Cognitive needs: Yes (walker) Hearing needs: No Vision needs: Yes (glasses) Female Reproductive History Menstrual Age of Menarche: 12 Questionnaire Thrive Questionnaire Date Thrive assessed: 10/06/23 AUDIT C Alcohol Use Questionnaire (AUDIT-C) 1. How often do you have a drink containing alcohol?: Never Total Score: 0 ÓSCAR-7 AMB Questionnaire ÓSCAR-7 Date ÓSCAR - 7 assessed: 10/06/23 Source: Developed by Drs. Rajendra Gutierrez, Juanita Junior, Tyson Mike and colleagues, with an educational otis from [employer]. Review of Systems Const Denies body aches, Denies fatigue, Denies fever(s), Denies frequent falls, Denies headache(s) and Denies weakness Eyes Reports no additional complaints and Denies change in vision ENT Denies dizziness, Denies facial pain, Denies headache(s) and Denies nasal congestion Card Denies chest pain, Denies syncope, Denies irregular heart rhythm, Denies leg edema, Denies lightheadedness and Denies dyspnea Resp Denies cough and Denies dyspnea GI Denies constipation, Denies dyspepsia, Denies diarrhea, Denies nausea and Denies vomiting Reports no additional complaints Musc Denies back pain and Denies myalgias Skin/Breast Reports system reviewed and no additional complaints, except as documented Neuro Denies dizziness, Denies syncope, Denies frequent falls, Denies headache(s) and Denies weakness Psych Reports no additional complaints Endo Denies fatigue Physical exam (Primary Care) Vital Signs: Last Vital Signs Pulse 81 06/23/24 13:14 BP 132/80 06/23/24 13:14 Pulse Ox 99 06/23/24 13:14 Oxygen Delivery Method Room Air 06/23/24 13:14 BMI result Body Mass Index 27.1 Tobacco/Smoking Status: Tobacco use Status Tobacco use date assessed 10/06/23 06/23/24 13:17 Patient Tobacco Use Status Never used Tobacco 06/23/24 13:17 e-Cigarette/Vaping Use Never Used 06/23/24 13:17 Thrive Assessment: Date of Thrive Assessment Date Thrive assessed 10/06/23 06/23/24 13:17 Const General: cooperative, healthy appearing, comfortable and no acute distress Orientation/consciousness: patient oriented x3 HENMT Head: Yes normocephalic Ears: hearing grossly normal bilaterally General nose exam: Normal external nose present Eyes General: appearance normal, both eyes and all related structures Conjunctivae: conjunctivae normal Neck Neck: Yes full ROM and Yes no lymphadenopathy Resp Effort & Inspection: normal respiratory effort Auscultation: clear to auscultation bilaterally, no crackles, no rales, no rhonchi and no wheezes Cardio Rate: regular rate Rhythm: regular rhythm Skin General skin exam: no rashes or lesions noted Neuro General: patient oriented x3 Gait exam (Neuro): Assisted gait required Gait assisted method: walker Extrem Other: bilateral 1+ pitting edema General: Yes normal to inspection and Yes full ROM Psych Affect: normal affect Attitude: cooperative Insight: Good insight present (Psych) Judgement: Good judgement present (Psych) Results AMB Hemoglobin A1c AMB Hemoglobin A1c 6.2 % Last Edit by MCKENNA Hernandez on 06/23/24 13:29 Coding Level of Care Code Est Pt Level 3 (88611) Diagnoses Diabetes mellitus, type II, insulin dependent E11.9; Z79.4 Hypercholesteremia E78.00 Primary hypertension I10 Hypertension type: primary hypertension Pre-op evaluation Z01.818 Assessment & Plan Assessment & Plan (1) Diabetes mellitus, type II, insulin dependent: Code(s): E11.9 - Type 2 diabetes mellitus without complications; 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 Decrease the amount of carbohydrates such as pasta, bread, rice, and potatoes and limit the amount of sweets. Although fruits are generally healthy they should be eaten in moderation as they are still high in sugar. Hemoglobin A1c goal of less than 7%. Continue on Trulicity and insulin. (2) Hypercholesteremia: Code(s): E78.00 - Pure hypercholesterolemia, unspecified Category: Medical Plan: Last cholesterol labs within goal. Continue on atorvastatin 10 mg. Avoid foods that are high in cholesterol such as red meat, fried foods, eggs and baked goods. Triglyceride goal of less than 150 and LDL goal of less than 100 (3) HTN (hypertension): Code(s): I10 - Essential (primary) hypertension Category: Medical Qualifiers: Hypertension type: primary hypertension Qualified Code(s): I10 - Essential (primary) hypertension Plan: Blood pressure at goal today 132/80 continue on amlodipine and lisinopril. (4) Pre-op evaluation: Code(s): Z01.818 - Encounter for other preprocedural examination Category: Medical Plan: Regarding preop clearance, the patient is at moderate risk for proposed surgery due to age and comorbidities however comorbidities are well managed at this time.?Reviewed with the patient that no surgery is completely free of risk and that this examination is to assist the surgeon in reviewing informed consent. Patient is not currently on any blood thinners, NSAIDs, or antiplatelet medications. Advised patient to discontinue Trulicity 1 week prior to surgery a nd may resume after the procedure. Advised patient to discontinue all medications the morning of the procedure with the exception of amlodipine and lisinopril as blood pressure needs to be well controlled prior to the procedure. All other medications may be taken after the procedure has been completed. Patient agrees and understands this plan. Plan This note was constructed using voice recognition software. While every effort has been made to ensure accuracy and manager staffing, still areas may have been included sometimes these areas may affect the content or meeting of the given symptoms. Total time spent caring for the patient today was 30 minutes. This includes time spent before the visit reviewing the chart, time spent during the visit, and time spent after the visit and documentation. 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
== END 2024-06-23 13:58 | disposition home or self-care (01) ==
PROVIDERS: PCP Internal Medicine
DX: E11.9 Type 2 diabetes mellitus without complications (principal); Z79.4 Long term (current) use of insulin; E78.00 Pure hypercholesterolemia, unspecified; I10 Essential (primary) hypertension; Z01.818 Encounter for other preprocedural examination

== ENCOUNTER → 2024-06-23 13:12 | Outpatient (BNVA) | payer OTHER, SELFPAY | PROVIDERS: PCP Internal Medicine | DX: Z01.818 Encounter for other preprocedural examination (principal); E11.9 Type 2 diabetes mellitus without complications; Z79.4 Long term (current) use of insulin; I10 Essential (primary) hypertension; E78.00 Pure hypercholesterolemia, unspecified | CPT/HCPCS: 83036; 99212 ==

== ENCOUNTER 2024-07-11 10:06 | Outpatient (AMB) | payer OTHER, SELFPAY ==
[2024-07-11 10:31] VITALS: BP 112/80; BMI 27.6
--- NOTE | 2024-07-11 10:31 | A.OFFPC_ITS ---
Vital Signs 07/11/24 10:31 Height 5 ft 6 in Weight 171 lb BMI 27.6 BP 112/80 Blood Pressure Location Lt brachial Position Sitting Intake Visit Reasons: 4 month follow up Asphalt Patcher Required: No Accompanied by: Self / Same As Patient Allergies Penicillins Allergy (Intermediate, Verified 07/11/24 10:40) rash/swelling shellfish derived Allergy (Intermediate, Verified 07/11/24 10:40) Swelling, Hives Medication List - Last Reconciled 07/11/24 by Evelia Donald MD acetaminophen 500 mg PO Q6H PRN 30 days acyclovir 400 mg PO TID 30 days amitriptyline 10 mg PO BEDTIME 90 days amlodipine 5 mg PO DAILY atorvastatin 10 mg PO DAILY 90 days blood sugar diagnostic (FreeStyle Test strips) As directed Twice a day blood-glucose meter (FreeStyle Lite Meter kit) As directed blood-glucose meter ([place]! Autocode Meter kit) As directed divalproex ER 1,000 mg (2 x 500 mg) PO BEDTIME 90 days dulaglutide (Trulicity) 1.5 mg (0.5 mL) subcut QWEEK 30 days furosemide 40 mg PO DAILY insulin aspart U-100 (Novolog FlexPen U-100 Insulin aspart) 10 units (0.1 mL) subcut TID 90 days insulin glargine (Lantus Solostar U-100 Insulin) 48 units (0.48 mL) subcut DAILY 90 days ketorolac 0.5% drps ophthalmic (eye) lancets ([place]! Lancets) Use 1 lancet four times a day lisinopril 40 mg (2 x 20 mg) PO DAILY 90 days miscellaneous medical supply Grab bars for shower miscellaneous; omeprazole 20 mg PO DAILY pen needle, diabetic (BD Ultra-Fine Short Pen Needle) As Directed pen needle, diabetic (1st Tier Unifine Pentips) Use 1 pen needle three times a day ropinirole 0.5 mg (2 x 0.25 mg) PO BID 90 days sennosides-docusate sodium 8.6-50 mg (Senna with Docusate Sodium) 1 tab-cap PO BEDTIME 60 days tolterodine ER 2 mg PO DAILY 90 days trazodone 100 mg PO BEDTIME Tobacco use date assessed: 10/06/23 Dental Screening Dental Screen Date: 10/06/23 HPI HPI Comments History of Present Illness Details This is a 64-year-old female with diabetes mellitus type 2 on long-term current use of insulin complicated by neuropathy, hypertension, hyperlipidemia, mild major depression and schizophrenia that comes today for follow-up on her conditions. She also has chronic constipation that has been stable with medications. Walks with a walker due to unstable gait and polyarthralgia. Last A1c was within goal. Blood pressure stable. Lipid panel was order and her LDL goal should be less than 70. Depression and schizophrenia are follow by Psychiatry. Denies any chest pain or shortness on breath. [facility] Medical History (Updated 07/11/24 @ 11:42 by Evelia Donald MD) Osteoporosis Hypertension History of blood clot in brain Hypercholesteremia HSV-2 (herpes simplex virus 2) infection Arthritis Rheumatic fever Schizophrenia GERD (gastroesophageal reflux disease) Depression HTN (hypertension) Hyperlipemia Diabetes Surgical History Hx of colonoscopy History of tubal ligation History of cystostomy History of 2 sections Family History Sister Age: 63 Osteoarthritis Mother Cancer of lymphatic and hematopoietic tissue, Onset Age: 83 COVID-19 Father FH: heart attack Brother FH: heart attack Other Diabetes HTN (hypertension) Mental health disorder Social History Household Members: Family Household Members Other:: sister Housing: Apartment Do you presently have visiting nurse or other home services: No Alcohol intake: never Patient Tobacco Use Status: Never used Tobacco e-Cigarette/Vaping Use: Never Used Second Hand Smoke Exposure: No Advance Directives Date on File: 12/05/21 service: No Current occupational status: disabled Sexual orientation: Straight/Heterosexual Gender identity: Female Cognitive needs: Yes (walker) Hearing needs: No Vision needs: Yes (glasses) Female Reproductive History Menstrual Age of Menarche: 12 Questionnaire Thrive Questionnaire Date Thrive assessed: 10/06/23 ÓSCAR-7 AMB Questionnaire ÓSCAR-7 Date ÓSCAR - 7 assessed: 10/06/23 Source: Developed by Drs. Rajendra Gutierrez, Juanita Junior, Tyson Mike and colleagues, with an educational otis from [employer]. Review of Systems Const All systems reviewed & are unremarkable except as noted in HPI and below Card Denies chest pain at rest, Denies chest pain with activity, Denies edema, Denies irregular heart rhythm, Denies claudication, Denies dyspnea, Denies dyspnea on exertion, Denies orthopnea, Denies paroxysmal nocturnal dyspnea and Denies slow heart rate Resp Denies cough, Denies dyspnea and Denies dyspnea on exertion GI Denies abdominal pain, Denies change in bowel habits, Denies excessive flatus, Denies nausea and Denies vomiting Musc Reports back pain and Reports arthralgias Physical exam (Primary Care) Vital Signs: Last Vital Signs BP 112/80 07/11/24 10:31 BMI result Body Mass Index 27.6 BMI Assessment/Plan discussion: High BMI High, discussed plan: lifestyle, weight reduction, dietary and physical activity Tobacco/Smoking Status: Tobacco use Status Tobacco use date assessed 10/06/23 07/11/24 10:33 Patient Tobacco Use Status Never used Tobacco 07/11/24 10:33 e-Cigarette/Vaping Use Never Used 07/11/24 10:33 Thrive Assessment: Date of Thrive Assessment Date Thrive assessed 10/06/23 07/11/24 10:33 Const Limitations: ambulation with walker Resp Effort & Inspection: normal respiratory effort Auscultation: clear to auscultation bilaterally Cardio Jugular venous distension: no JVD Rate: regular rate Rhythm: regular rhythm Heart sounds: S1 normal heart sound present and S2 normal heart sound present Extrem General: Yes full ROM Office Procedures Flu Questionnaire Does the patient have a severe egg allergy?: No Does the patient have severe life threatening allergies?: No Does the patient have a fever or illness today?: No Has the patient ever had Guillain-Newcomb Syndrome?: No Has the patient ever had any past reaction to a flu shot?: No Immunizations Fluarix Triv [id number] (PF) 45 mcg (15 mcg x 3)/0.5 mL IM syringe Performing Provider: Evelia Donald MD [facility] [facility] Administered by: MCKENNA Saenz on 07/11/24 10:49 Dose Route Admin Location Dispensed Lot Number Expiration Date [facility] Transcription 0.5 mL IM Left Deltoid 0.5 mL [id number] 03/20/25 [id number] [employer] VIS Given Date VIS Provided VIS Publication Date 07/11/24 Single Vaccine 21 Eligibility Eligibility Date Funding Source Not [facility] Eligible 07/11/24 Private Coding Level of Care Code Est Pt Level 4 (13155) Complex EM visit Add On G2211 Diagnoses Mild major depression F32.0 Diabetes mellitus, type II, insulin dependent E11.9; Z79.4 Diabetic polyneuropathy associated with type 2 diabetes mellitus E11.42 Diabetes mellitus type: type 2 Diabetes mellitus complication detail: diabetic polyneuropathy Primary hypertension I10 Hypertension type: primary hypertension Paranoid schizophrenia F20.0 Schizophrenia type: paranoid schizophrenia Chronic constipation K59.09 Hyperlipidemia LDL goal <70 E78.5 Time Spent (min) 25 Assessment & Plan Assessment & Plan (1) Mild major depression: Code(s): F32.0 - Major depressive disorder, single episode, mild Category: Medical Plan: Continue trazodone. Follow-up with psychiatry. 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 A1c goal is equal or less than 7%. (3) Diabetic neuropathy: Code(s): E11.40 - Type 2 diabetes mellitus with diabetic neuropathy, unspecified Category: Medical Qualifiers: Diabetes mellitus type: type 2 Diabetes mellitus complication detail: diabetic polyneuropathy Qualified Code(s): E11.42 - Type 2 diabetes mellitus with diabetic polyneuropathy Plan: Continue insulin. A1c goal is equal or less than 7%. (4) HTN (hypertension): Code(s): I10 - Essential (primary) hypertension Category: Medical Qualifiers: Hypertension type: primary hypertension Qualified Code(s): I10 - Essential (primary) hypertension Plan: Continue amlodipine. Blood pressure goal is equal or less than 130/80. (5) Schizophrenia: Comment: provisional dx Code(s): F20.9 - Schizophrenia, unspecified Category: Medical Qualifiers: Schizophrenia type: paranoid schizophrenia Qualified Code(s): F20.0 - Paranoid schizophrenia Plan: Follow-up with psychiatry. (6) Chronic constipation: Code(s): K59.09 - Other constipation Category: Medical Plan: Continue senna as needed. Continue high-fiber diet. (7) Hyperlipidemia LDL goal <70: Code(s): E78.5 - Hyperlipidemia, unspecified Category: Medical Plan: Continue statins. LDL goal is less than 70. Repeat lipid panel. Orders: Orders Influenza [id number] Immunization Today Z23 - Encounter for immunization Lipid Panel Today E78.5 - Hyperlipidemia, unspecified Vitamin D 25-OH Total Today E55.9 - Vitamin D deficiency, unspecified Comprehensive [place]. 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
== END 2024-07-11 10:57 | disposition home or self-care (01) ==
PROVIDERS: PCP Internal Medicine; Visit Provider Internal Medicine
DX: E11.69 Type 2 diabetes mellitus with other specified complication (principal); F32.0 Major depressive disorder, single episode, mild; Z79.4 Long term (current) use of insulin; E11.42 Type 2 diabetes mellitus with diabetic polyneuropathy; F20.0 Paranoid schizophrenia; I10 Essential (primary) hypertension; K59.09 Other constipation; E78.5 Hyperlipidemia, unspecified

== ENCOUNTER → 2024-07-11 10:06 | Outpatient (BNVA) | payer OTHER, SELFPAY | PROVIDERS: PCP Internal Medicine; Visit Provider Internal Medicine | DX: F32.0 Major depressive disorder, single episode, mild (principal); E11.42 Type 2 diabetes mellitus with diabetic polyneuropathy; I10 Essential (primary) hypertension; F20.0 Paranoid schizophrenia; K59.09 Other constipation; E78.5 Hyperlipidemia, unspecified; Z79.4 Long term (current) use of insulin; Z79.899 Other long term (current) drug therapy; Z23 Encounter for immunization | CPT/HCPCS: 90471; 90656; 99212 ==

== ENCOUNTER 2024-09-22 14:04 | Outpatient (AMB) | payer OTHER, SELFPAY ==
[2024-09-22 14:29] VITALS: BP 120/60; PULSE 74; BMI 27.4
--- NOTE | 2024-09-22 14:29 | MHC.OFFVIS ---
Vital Signs 09/22/24 14:29 Height 5 ft 6 in Weight 169 lb 12.095 oz BMI 27.4 BP 120/60 Blood Pressure Location Lt brachial Position Sitting Pulse 74 Pulse Source Monitor Intake Visit Reasons: r/s 08/22/24 1 yr followup w/ekg [employer] Window Clerk Required: Yes Postal Service Window Clerk Name: JUANI [id number] Allergies Penicillins Allergy (Intermediate, Verified 07/11/24 10:40) rash/swelling shellfish derived Allergy (Intermediate, Verified 07/11/24 10:40) Swelling, Hives Medication List - Last Reconciled 09/22/24 by PARRIS Head acetaminophen 500 mg PO Q6H PRN 30 days acyclovir 400 mg PO TID 30 days amitriptyline 10 mg PO BEDTIME 90 days amlodipine 5 mg PO DAILY atorvastatin 10 mg PO DAILY 90 days blood sugar diagnostic (FreeStyle Test strips) As directed Twice a day blood-glucose meter (FreeStyle Lite Meter kit) As directed blood-glucose meter (ElephantDrive Autocode Meter kit) As directed divalproex ER 1,000 mg (2 x 500 mg) PO BEDTIME 90 days dulaglutide (Trulicity) 1.5 mg (0.5 mL) subcut QWEEK 30 days furosemide 40 mg PO DAILY insulin aspart U-100 (Novolog FlexPen U-100 Insulin aspart) 10 units (0.1 mL) subcut TID 90 days insulin glargine (Lantus Solostar U-100 Insulin) 48 units (0.48 mL) subcut DAILY 90 days lancets (ElephantDrive Lancets) Use 1 lancet four times a day lisinopril 40 mg (2 x 20 mg) PO DAILY 90 days miscellaneous medical supply Grab bars for shower miscellaneous; omeprazole 20 mg PO DAILY pen needle, diabetic (BD Ultra-Fine Short Pen Needle) As Directed pen needle, diabetic (1st Tier Unifine Pentips) Use 1 pen needle three times a day ropinirole 0.5 mg (2 x 0.25 mg) PO BID 90 days sennosides-docusate sodium 8.6-50 mg (Senna with Docusate Sodium) 1 tab-cap PO BEDTIME 60 days tolterodine ER 2 mg PO DAILY 90 days trazodone 100 mg PO BEDTIME walker As directed HPI HPI r/s 08/22/24 1 yr followup w/ekg: Details: Bessie is a 64-year-old female with past medical history of hypertension, hyperlipidemia, diabetes, abnormal EKG with septal Q-waves, who presents for follow-up. Today she reports she has been getting tightness in her chest when doing things around her house such as cleaning. Her last episode was 2 weeks ago. She takes her time when doing her housework now. No concerning shortness of breath, PND, orthopnea. She does have recurrent leg edema. She previously had more and her amlodipine was reduced with improvement. Now her swelling has returned. She tells me she does not eat salt in her diet. No palpitations, lightheadedness, presyncope, syncope, falls. Taking meds as directed. 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 [facility] Medical History Osteoporosis Hypertension History of blood clot in brain Hypercholesteremia HSV-2 (herpes simplex virus 2) infection Arthritis Rheumatic fever Schizophrenia GERD (gastroesophageal reflux disease) Depression HTN (hypertension) Hyperlipemia Diabetes Surgical History Hx of colonoscopy History of tubal ligation History of cystostomy History of 2 sections Family History Sister Age: 63 Osteoarthritis Mother Cancer of lymphatic and hematopoietic tissue, Onset Age: 83 COVID-19 Father FH: heart attack Brother FH: heart attack Other Diabetes HTN (hypertension) Mental health disorder Social History Household Members: Family Household Members Other:: sister Housing: Apartment Do you presently have visiting nurse or other home services: No Alcohol intake: never Patient Tobacco Use Status: Never used Tobacco e-Cigarette/Vaping Use: Never Used Second Hand Smoke Exposure: No Advance Directives Date on File: 12/05/21 service: No Current occupational status: disabled Sexual orientation: Straight/Heterosexual Gender identity: Female Cognitive needs: Yes (walker) Hearing needs: No Vision needs: Yes (glasses) Female Reproductive History Menstrual Age of Menarche: 12 Review of Systems Const All systems reviewed & are unremarkable except as noted in HPI and below Denies weakness ENT Denies dizziness Card Reports chest pain, Reports chest pain at rest, Reports chest pain with activity, Denies syncope, Denies rapid heart rate, Denies pedal edema, Denies edema, Denies leg edema, Denies lightheadedness, Denies palpitations, Denies dyspnea, Denies dyspnea on exertion and Denies orthopnea Resp Denies cough, Denies dyspnea and Denies dyspnea on exertion GI Denies hematochezia and Denies change in stool character Musc Details: bilateral lower leg/ ankle edema Denies abnormal gait, Denies muscle cramps, Denies muscle weakness, Denies numbness, Denies radiating pain into limb and Denies tingling Neuro Denies abnormal gait, Denies dizziness, Denies syncope, Denies numbness, Denies tingling and Denies weakness Endo Denies palpitations Physical Exam Vital Signs: Last Vital Signs Pulse 74 09/22/24 14:29 BP 120/60 09/22/24 14:29 BMI result Body Mass Index 27.4 Const General: cooperative, healthy appearing, comfortable and no acute distress Orientation/consciousness: patient oriented x3 Neck Neck: Yes normal visual inspection Resp Effort & Inspection: normal respiratory effort Auscultation: clear to auscultation bilaterally, no crackles, no rales, no rhonchi and no wheezes Cardio Jugular venous distension: no JVD Rate: regular rate Rhythm: regular rhythm Heart sounds: S1 normal heart sound present, S2 normal heart sound present, no murmurs and no rubs Neuro General: patient oriented x3 Extrem General: Yes normal to inspection and No no pedal edema Psych Appearance: grossly normal Mental Status: mental status grossly normal Speech and movement: Normal speech and movement present Office Procedures EKG Details: Today, read by me, Normal sinus rhythm, rate 74, QTc 439ms [id number], Complete Assessment & Plan Assessment & Plan (1) Chest discomfort: Code(s): R07.89 - Other chest pain Category: Medical Plan: Reports of chest tightness when doing activities like cleaning her house. She is telling me this is a newer symptom for her. She has no known cardiac history. She does have cardiac risk factors of hypertension, hyperlipidemia, diabetes and family history. Nuclear stress test was done on 04/15/2023 showing normal myocardial perfusion imaging, EF 54% with stress and 61% with rest. Echocardiogram done 10/09/2023 showed EF 54%, no regional wall motion abnormality, normal valves. - her symptom is new since these tests were completed. She also has recurrent leg edema. An EKG done today is showing normal sinus rhythm with no acute ST or T-wave abnormalities. Discussed treatment options with her and she is interested in repeat testing. Will re-evaluate with a pharmacological nuclear stress test to assess for ischemia. She tells me she would not be able to walk on a treadmill. Will update echocardiogram to reassess EF and wall motion. Signs and symptoms of angina discussed. Emergency care if needed for symptoms not relieved by rest. Cardiology follow-up once test results are available. (2) Abnormal EKG: Code(s): R94.31 - Abnormal electrocardiogram [ECG] [EKG] Category: Medical Plan: Prior EKG EKG showed sinus rhythm with septal Q-wave. EKG done today is not showing a clear septal Q-wave. This could be related to lead placement. (3) HTN (hypertension): Code(s): I10 - Essential (primary) hypertension Category: Medical Qualifiers: Hypertension type: primary hypertension Qualified Code(s): I10 - Essential (primary) hypertension Plan: Good at present time. To help with her edema will reduce her amlodipine dose. (4) Hypercholesteremia: Code(s): E78.00 - Pure hypercholesterolemia, unspecified Category: Medical Plan: ideal LDL goal less than 70 in patient with diabetes. labs done 10/09/23 shows LDL 67. Continue atorvastatin. (5) Bilateral leg edema: Code(s): R60.0 - Localized edema Category: Medical Plan: On prior visit she had significant lower leg edema with discomfort in her feet on ambulation. Her amlodipine had been at 10 mg daily. Dose reduced to 5 mg daily. Her hydrochlorothiazide was stopped and Lasix was increased to 40 mg daily. On follow-up visit her leg edema was much improved. She now has recurrent edema, pitting in her lower extremities to the mid calf bilaterally. She continues on amlodipine at 5 mg daily. Will further reduced down to 2.5 mg daily. Discussed low-salt diet, leg elevation, compression stocking use. Rechecking echo as above. Plan Time spent on chart review, documentation, interview and assessment Orders: Orders CA echo transthoracic complete Today R07.89 - Other chest pain, R60.0 - Localized edema CA lexiscan stress w veronica Today E78.00 - Pure hypercholesterolemia, unspecified, I10 - Essential (primary) hypertension, R07.89 - Other chest pain NM cardiolite stress test Today E78.00 - Pure hypercholesterolemia, unspecified, I10 - Essential (primary) hypertension, R07.89 - Other chest pain, R60.0 - Localized edema Medications: Changed From amlodipine 5 mg PO DAILY 28 tabs 5RF I10 - Essential (primary) hypertension To amlodipine dose reduced 2.5 mg (1/2 x 5 mg) PO DAILY 45 tabs 1RF 90 days I10 - Essential (primary) hypertension Coding Level of Care Code Est Pt Level 4 (54736) Complex EM visit Add On G2211 Diagnoses Chest discomfort R07.89 Abnormal EKG R94.31 Primary hypertension I10 Hypertension type: primary hypertension Hypercholesteremia E78.00 Bilateral leg edema R60.0 CPT Codes EKG - CPT: [id number], Complete ([id number]) Time Spent (min) 32
== END 2024-09-22 15:04 | disposition home or self-care (01) ==
PROVIDERS: PCP Internal Medicine; Visit Provider Nurse Practitioner Family
DX: R07.89 Other chest pain (principal); R94.31 Abnormal electrocardiogram [ECG] [EKG]; I10 Essential (primary) hypertension; E78.00 Pure hypercholesterolemia, unspecified; R60.0 Localized edema
CPT/HCPCS: 93010; 99214; G2211

== ENCOUNTER → 2024-09-22 14:04 | Outpatient (BNVA) | payer OTHER, SELFPAY | PROVIDERS: PCP Internal Medicine; Visit Provider Nurse Practitioner Family | DX: R07.89 Other chest pain (principal); R94.31 Abnormal electrocardiogram [ECG] [EKG]; I10 Essential (primary) hypertension; E78.00 Pure hypercholesterolemia, unspecified; R60.0 Localized edema | CPT/HCPCS: 93005; 99212 ==

== ENCOUNTER → 2024-10-31 09:49 | Outpatient (REF) | payer OTHER, SELFPAY | LOC: HO.CARD 09:49 | PROVIDERS: PCP Internal Medicine; Visit Provider Nurse Practitioner Family | DX: R60.0 Localized edema (principal); R07.89 Other chest pain | CPT/HCPCS: 36415; 80053; 80061; 82306; 82570; 93306; Q9957 ==

== ENCOUNTER → 2024-10-31 09:54 | Outpatient (BNV) | payer OTHER, SELFPAY | PROVIDERS: PCP Internal Medicine; Visit Provider Internal Medicine Cardiovascular Disease | DX: R22.43 Localized swelling, mass and lump, lower limb, bilateral (principal) | CPT/HCPCS: 93306 ==

== ENCOUNTER 2024-10-31 11:01 | Outpatient (REF) | payer OTHER, SELFPAY ==
--- OUTSIDE RECORDS SUMMARY | 2024-10-31 12:08 | XMS_ITS | Clinical Summary ---
Author Organization [address] [facility] Address [address] [place] [address] Phone Care Team Providers Care Panel Sewer Name Role Phone Evelia Donald MD Primary Care Provider [phone] Social History Tobacco Use Types Packs/Day Years Used Date Smoking Tobacco: Never Assessed Comments Unknown Sex and Gender Information Value Date Recorded Sex Assigned at Not on file Legal Sex Female 4:31 AM EST Gender Identity Not on file Sexual Orientation Not on file Plan of Treatment Upcoming Encounters Date Type Department Care Team ([facility] Contact Info) Description 11/16/2024 10:45 AM EST Office Visit Orthopedic Surgery [place] [id number] [phone] Zeyad Wallace, DPM [address] [address] Health Maintenance Due Date Last Done Comments Breast Cancer Screening 1960 DTaP,Tdap,and Td Vaccines (1 - Tdap) 1966 Cervical Cancer Screening: P ap Smear 01/08/1980 Pneumococcal Vaccine: 50+ Ye ars (1 of 1 - PCV) 2009 Zoster Vaccines (1 of 2) 2009 Colorectal Cancer Screening: Colonoscopy 08/24/2022 Depression Screening 08/24/2022 Hepatitis C Screening 08/24/2022 Medicare Annual Wellness Visit 08/24/2022 Osteoporosis Screening (Bone Density Screening) 08/24/2022 Social Influencers of Health Screening 08/24/2022 Falls Risk Assessment 01/08/2024 COVID-19 Vaccine ( - 2023-2 5 season) 2024 Influenza Vaccine (#1) 2024 RSV Immunization Patients 60 + Years Old (1 - 1-dose 75+ series) 2034 HIB Vaccines Aged Out No longer eligi ble based on patient's age to complete this topic HPV Vaccines Aged Out No longer eligi ble based on patient's age to complete this topic Hepatitis A Vaccines Aged Out No long er eligible based on patient's age to complete this topic Hepatitis B Vaccines Aged Out No long er eligible based on patient's age to complete this topic IPV Vaccines Aged Out No longer eligi ble based on patient's age to complete this topic MMR Vaccines Aged Out No longer eligi ble based on patient's age to complete this topic Meningococcal ACWY Vaccine Aged Out N o longer eligible based on patient's age to complete this topic Meningococcal B Vacine Aged Out No lo nger eligible based on patient's age to complete this topic Pneumococcal Vaccine: Pediat rics (0 to 5 Years) and At-Risk Patients (6 to 64 Years) Aged Out No longer eligible b ased on patient's age to complete this topic RSV Immunization Patients Un julianna 20 months Aged Out No longer eligible b ased on patient's age to complete this topic Varicella Vaccines Aged Out No longer eligible based on patient's age to complete this topic Insurance , [facility] [address] [place] [address] [place] [facility] OPTIONS Care Teams Panel Sewer Relationship Specialty Start Date End Date Evelia Donald MD [facility] , [facility] Physician Associ D/B/A: [facility] OTIS De Oliveira PCP - General Internal Medicine 08/30/24
--- OUTSIDE RECORDS SUMMARY | 2024-10-31 12:08 | XMS_ITS | Data Portability ---
Author Organization [facility], autoContract Address [address] [place] [address] Assessment No assessment recorded. Plan of Treatment Reminders Order Date Submit Date Provider Last Modified By Organization Details Last Modified Time Details Appointments None recorded. Lab None recorded. Referral None recorded. Procedures None recorded. Surgeries None recorded. Imaging None recorded. Medication Orders ammonium lactate 12 % lotion 2020 021 [facility][id number][facility] [address] [facility] [place], [address], 15:37:21 Patient TargetsNo targets recorded. Patient Instructions Encounter Date Encounter Id Patient Instructions Last Modified By Organization Details Last Modified Time 10/18/2020 [id number] 1.) Office visit with DM foot exam and comprehensive skin and nail care. 2.) Nail debridement bilateral feet in thickness and length without complication. 3.) Continue with topical Ammonium Lactate 12% cream bid to feet, legs and dry skin. 4.) Continue with DM therapeutic shoe gear with accommodative insoles. 5.) Encouraged continued tight blood sugar control through good nutrition, routine exercise and regular follow up evaluation by PCP and/or pie cutter. 6.) Return 3 months for DM check up and comprehensive foot care, sooner if problems. Not available 10/18/2020 12:32:14 01/28/2021 [id number] 1.) Office visit with DM foot exam and comprehensive skin and nail care. 2.) Nail debridement bilateral feet in thickness and length without complication. 3.) Continue with topical Ammonium Lactate 12% cream bid to feet, legs and dry skin. 4.) Continue with DM therapeutic shoe gear with accommodative insoles. 5.) Encouraged continued tight blood sugar control through good nutrition, routine exercise and regular follow up evaluation by PCP and/or pie cutter. 6.) Return 3 months for DM check up and comprehensive foot care, sooner if problems. Not available 01/28/2021 15:01:30 02/18/2021 [id number] Warranty/Receipt New shoe break-in period Wear your shoes at home on a carpeted surface for one hour the first day. Remove your shoes and check your feet for any sores or irritations. Check all areas of your feet including your toes, the tops bottoms and sides of your feet, the back of your heels, etc. If you notice any red spots or other signs of irritation, or if the shoe does not fit properly, stop wearing your shoes immediately. Call your doctor and make an appointment to have the fit of your shoes checked. You must bring the shoes back in the original box. If the shoe fits properly increase your wearing time to two hours the second day and three hours on the third day. After each day check your feet again for sores or irritations. If you are satisfied with the fit of the shoes after wearing them for three days you can begin wearing them outside. Remember, the shoes can only be returned if they are still in new condition and in the original box. Home inspection and follow-up office visits After the initial break-in period, patients should continue to inspect their feet daily for any sores or irritations after removing their shoes. Consult your doctor if you detect any irregularities. Replace inserts at four month intervals to ensure adequate protection. Inspect the shoes and inserts periodically and consult your doctor if they show unusual wear. See your doctor for routine foot care and inspection of your feet at periodic intervals. Enjoy your new shoes and inserts! Warranty/Return Policy on Shoes Please wear your shoes on a carpeted surface first, until you are sure of a comfortable fit. Shoes that are dirty or have visible wear or damage cannot be returned or exchanged. Shoes can be returned or exchanged because of faulty fit within 30 days from the date they were received. Shoes must be returned in the original box. The shoes are warranted to be free from defects in material and workmanship for a period of six months from the start of use. Authorization of Payment & Proof of Delivery I certify that I have received: 1 Left and 1 Right - [employer] Jasmyne S325-1 Black, Hook & Loop depth-inlay therapeutic footwear 1 Left and 1 Right - Moldable Prefab (Prefabricated/Hea t Moldable Insert) I am satisfied with the fit of the shoes and inserts, and authorize Medicare and my supplemental insurance carrier to pay Min Rogers directly. I understand that Medicare may cover one pair of shoes and three pairs of inserts per calendar year if coverage requirements are met. I understand that I am responsible for any deductible and the 20% co-insurance if my insurance carrier does not pay. I have not received any diabetic shoes or inserts from any other supplier during this calendar year. I have received a copy of the Supplier Standards have read and understand them. I have been instructed to call Min Rogers if I encounter any problems. Signed copy scanned to chart and orignial provided to Bessie as receipt. Not available 10/18/2021 09:49:58 dispensing of 1 Left and 1 Right - [employer] Jasmyne S325-1 Black, Hook & Loop depth-inlay therapeutic footwear , and 1 Left and 1 Right - Moldable Prefab (Prefabricated/Hea t Moldable Insert) One pair of therapeutic shoes was dispensed. BESSIE ALFONSO was observed wearing the shoes and the shoes appear to accommodate the patient? s conditions of Other hammer toe(s) (acquired), right foot 2 , and Other hammer toe(s) (acquired), left foot 2 . The shoes fit with minimal slippage of the patient? s foot. A statement of certifying physician is on file in the patient's chart that documents the medical necessity for footwear and or inserts. A copy of the patient's office records were reviewed and signed by Dr. Shaheen Navas prior to the signing of the certifying statement. BESSIE ALFONSO was given a copy of the supplier standards, the return policy and new shoe break in instructions. The patient was advised to wear the shoes at home for only one hour on the first day and to check their feet for any sores or irritations. They were further advised to call the office with any problems otherwise follow the break in schedule as provided. The patient will be seen for a follow-up on a PRN basis. Not available 10/18/2021 09:50:05 05/06/2021 [id number] 1.) Office visit with DM foot exam and comprehensive skin and nail care. 2.) Nail debridement bilateral feet in thickness and length without complication. 3.) Continue with topical Ammonium Lactate 12% cream bid to feet, legs and dry skin. 4.) Continue with DM therapeutic shoe gear with accommodative insoles. 5.) Encouraged continued tight blood sugar control through good nutrition, routine exercise and regular follow up evaluation by PCP and/or pie cutter. 6.) Return 3 months for DM check up and comprehensive foot care, sooner if problems. Not available 05/07/2021 08:22:47 08/09/2021 [id number] dedo en martillo : instrucciones de cuidado - [hammer toe: care instructions] Not available 08/09/2021 16:37:08 1.) Office visit with DM foot exam and comprehensive skin and nail care. 2.) Nail debridement bilateral feet in thickness and length without complication. 3.) Continue with topical Ammonium Lactate 12% cream bid to feet, legs and dry skin. 4.) Continue with DM therapeutic shoe gear with accommodative insoles. Eligible for new pair. 5.) Encouraged continued tight blood sugar control through good nutrition, routine exercise and regular follow up evaluation by PCP and/or pie cutter. 6.) Return 3 months for DM check up and comprehensive foot care, sooner if problems. I am prescribin. 1 Left and 1 Right - [employer] S325-1 Black, Hook & Loop depth-inlay therapeutic footwear 2. 1 Left and 1 Right - Moldable Prefab (Prefabricated/Hea t Moldable Insert) Size: 7.5 W Therapeutic footwear is medically necessary for this patient to achieve and maintain total contact with the plantar aspect of the patient's foot and to prevent infection and ulceration. [place] measurements of the patient's foot were taken. I am sending a certifying statement to the patient's physician to certify the need for footwear and a copy of these records to verify the presence of the qualifying foot conditions listed on the certifying statement. Shoes and inserts will be dispensed when the certifying letter and these relevant medical records have been signed and returned by the patient's physician. These documents will be incorporated as part of the medical records of Dr. Shaheen Navas and if requested a copy will be provided. Not available 08/19/2021 12:10:54 Reason for Referral None Reported. 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 Min Rogers DPM [address] [place], [place], [address] [place] [address] 7, [facility] 13:27:17 Overweight 164205695 Active 2019 Min Rogers DPM [address] [place], [address], [facility] 17:15:07 Uncontrolle d type 2 diabetes mellitus [id number] Completed 01/21/2018 Min Rogers DPM [address] [place], [place], [address] [place] [address] 7, [facility] 8 13:27:22 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 698583305 Active Min Rogers DPM [address] [place], [place], [address] [place] [address] 7, [facility] 12:39:04 Ingrowing nail 840446044 Active Min Rogers DPM [address] [place], [address], [facility] 5 12:39:04 Edema 698491170 Active Min Rogers DPM [address] [place], [address], [facility] 13:32:56 Peripheral venous insufficien cy 79201145 Active Min Rogers DPM [address] [place], [place], [address] [place] [address] 7, [facility] 13:32:56 Pain in limb 68468567 Active Min Rogers DPM [address] [place], [address], [facility] 5 12:39:04 Hammer toe 193999340 Active Min Rogers DPM [address] [place], [address], [facility] 12:50:43 Acquired cavus deformity of foot 23252871 Active Min Rogers DPM [address] [place], [address], [facility] 12:50:43 Problem Notes None recorded. Procedures Surgical History Date Name Laterality Status Provider Name and Address Organization Details Recorded Time 1 Nail Debridement completed Min Rogers DPM [address] [place], [address], [facility] 08/09/2021 15:47:04 1 Nail Debridement completed Min Rogers DPM [address] [place], [address], [facility] 05/07/2021 08:22:47 1 Nail Debridement completed Min Rogers DPM [address] [place], [address], [facility] 01/28/2021 15:00:03 1 Nail Debridement completed Min Rogers DPM [address] [place], [address], [facility] 10/18/2020 12:32:14 0 Nail Debridement completed Min Rogers DPM [address] [place], [address], [facility] 07/16/2020 12:25:52 0 Nail Debridement completed Min Rogers DPM [address] [place], [address], [facility] 04/12/2020 11:12:51 0 Nail Debridement completed Min Rogers DPM [address] [place], [address], [facility] 01/26/2020 15:11:05 0 Nail Debridement completed Min Rogers DPM [address] [place], [address], [facility] 10/31/2019 09:07:59 9 Nail Debridement completed Min Rogers DPM [address] [place], [address], [facility] 08/26/2019 16:10:32 9 Cortisone Injection completed Min Rogers DPM [address] [place], [address], [facility] 06/09/2019 08:55:55 9 Nail Debridement completed Min Rogers DPM [address] [place], [address], [facility] 06/09/2019 09:15:28 9 Nail Debridement completed Min Rogers DPM [address] [place], [address], [facility] 03/10/2019 13:36:34 9 Nail Debridement completed Min Rogers DPM [address] [place], [address], [facility] 12/28/2018 09:42:50 9 Nail Debridement completed Min Rogers DPM [address] [place], [address], [facility] 10/19/2018 13:15:54 8 Cortisone Injection completed Min Rogers DPM [address] [place], [address], [facility] 07/29/2018 11:08:29 8 Nail Debridement completed Min Rogers DPM [address] [facility], [place], [address], [facility] 07/29/2018 13:09:03 8 Nail Debridement completed Min Rogers DPM [address] [facility], [place], [address], [facility] 05/13/2018 10:01:58 8 Nail Debridement completed Min Rogers DPM [address] [place], [address], [facility] 03/04/2018 09:31:43 8 Nail Debridement completed Min Rogers DPM [address] [place], [address], [facility] 11/26/2017 14:37:36 5 Nail Debridement completed Min Rogers DPM [address] [place], [address], [facility] 02/01/2015 12:39:04 5 Nail Debridement completed Min Rogers DPM [address] [facility], [place], [address], [facility] 10/31/2014 13:32:39 4 Nail Debridement completed Min Rogers DPM [address] [place], [address], [facility] 08/03/2014 10:36:36 4 Nail Debridement completed Min Rogers DPM [address] [place], [address], [facility] 05/11/2014 10:36:07 4 Nail Debridement completed Min Rogers DPM [address] [place], [address], [facility] 02/20/2014 09:20:10 4 Nail Debridement completed Gregor Mckeon [facility] 12/07/2013 17:55:59 3 Nail Debridement completed [facility] 08/15/2013 18:15:52 3 Nail Debridement completed Min Rogers DPM [address] [place], [address], [facility] 05/08/2013 13:57:00 3 Nail Debridement completed Min Rogers DPM [address] [place], [address], [facility] 02/03/2013 13:55:58 3 Nail Debridement completed Min Rogers DPM [address] [place], [address], [facility] 11/15/2012 12:39:57 Imaging Results None recorded. Procedure Notes None recorded. Medical Equipment None Reported. Allergies Allergen ID Allergen Name Allergen Category Reaction Reaction Severity Criticality Documentation Date Start Date Code Code System Note Provider Name and Address Organization Details Recorded Time 921 Product containin g penicilli n and antibioti c (product) medicatio n Not available Not available Not available 10/14/2012 25519 05 SNOMED [facility] 3 15:13:05 Medications Name Sig Start Date Stop Date Status Note LastModified by Organization Details LastModified Time fluoxetine 40 mg capsule 03/10 completed Not Available Not Available Not Available cyclobenzap rine 10 mg tablet active Not Available Not Available Not Available atorvastati n 40 mg tablet TOME FRITZ TABLETA TODOS LOS D AL ACOSTARSE active Not Available Not Available No t Available metformin 500 mg tablet 03/10 completed Not Available Not Available Not Available Pain Reliever Extra Strength (acetaminop hen) 500 mg tablet active Not Available Not Available Not Available doxycycline hyclate 100 mg capsule 03/10 completed Not Available Not Available Not Available Child Aspirin 81 mg chewable tablet 03/10 completed Not Available Not Available Not Available naproxen 375 mg tablet active Not Available Not Available Not Available ammonium lactate 12 % lotion Apply 1 applicati on twice a day by topical route for 30 days. active Not Available Not Available No t Available trazodone 50 mg tablet TAKE 1 TABLET POR V A ORAL EVERY NIGHT NEEDED FOR SLEEP active Not Available Not Available No t Available polyethylen e glycol 3350 17 gram oral powder packet 03/10 completed Not Available Not Available Not Available lisinopril 20 mg-hydrochl orothiazide 12.5 mg tablet 03/10 completed Not Available Not Available Not Available ibuprofen 800 mg tablet 03/10 completed Not Available Not Available Not Available Glucagon Emergency Kit 1 mg solution for injection active Not Available Not Available No t Available risperidone 4 mg tablet 03/10 completed Not Available Not Available Not Available sucralfate 1 gram tablet active Not Available Not Available Not Available phenazopyri dine 200 mg tablet 03/10 completed Not Available Not Available Not Available lisinopril 20 mg tablet 03/10 completed Not Available Not Available Not Available prednisone 20 mg tablet 03/10 completed Not Available Not Available Not Available clonazepam 0.5 mg tablet 03/10 completed Not Available Not Available Not Available quetiapine 200 mg tablet 03/10 completed Not Available Not Available Not Available olanzapine 5 mg tablet TOME FRITZ TABLETA TODOS LOS D AT NIGHT active Not Available Not Available No t Available clonazepam 1 mg tablet 03/10 completed Not Available Not Available Not Available melatonin 3 mg tablet active Not Available Not Available No t Available amlodipine 5 mg tablet active Not Available Not Available Not Available acyclovir 400 mg tablet TAKE 1 TABLET THREE TIMES DAILY FOR 5 DAYS CUANDO SEA NECESARIO active Not Available Not Available No t Available divalproex 500 mg tablet,sandrita yed release TOME DOS TABLETAS POR V A ORAL TODOS LOS D AL ACOSTARSE active Not Available Not Available No t Available ciprofloxac in 500 mg tablet active Not Available Not Available Not Available sulfamethox azole 800 mg-trimetho prim 160 mg tablet active Not Available Not Available Not Available omeprazole 40 mg capsule,del ayed release active Not Available Not Available Not Available olanzapine 7.5 mg tablet active Not Available Not Available Not Available aspirin 81 mg tablet,sandrita yed release active Not Available Not Available Not Available tramadol 50 mg tablet active Not Available Not Available No t Available quetiapine 100 mg tablet 03/10 completed Not Available Not Available Not Available simvastatin 40 mg tablet 03/10 completed Not Available Not Available Not Available risperidone 2 mg tablet 03/10 completed Not Available Not Available Not Available terbinafine HCl 250 mg tablet Take 1 tablet every day by oral route for 90 days. active Not Available Not Available No t Available prednisolon e acetate 1 % eye drops,suspe nsion active Not Available Not Available Not Available aspirin 325 mg tablet,sandrita yed release active Not Available Not Available Not Available Humalog U-100 Insulin 100 unit/mL subcutaneou s solution active Not Available Not Available N ot Available cephalexin 500 mg capsule TOME 1 C PSULA POR V A ORAL CUATRO VECES AL D A POR 7 D active Not Available Not Available No t Available pantoprazol e 40 mg tablet,sandrita yed release 03/10 completed Not Available Not Available Not Available simvastatin 20 mg tablet active Not Available Not Available Not Available diphenhydra mine 25 mg capsule 03/10 completed Not Available Not Available Not Available trazodone 150 mg tablet active Not Available Not Available Not Available buspirone 30 mg tablet TOME FRITZ TABLETA DOS VECES AL D A active Not Available Not Available No t Available fluoxetine 20 mg tablet active Not Available Not Available Not Available metformin 1,000 mg tablet TOME FRITZ TABLETA DOS VECES AL D A active Not Available Not Available No t Available ranitidine 150 mg tablet 03/10 completed Not Available Not Available Not Available buspirone 10 mg tablet 03/10 completed Not Available Not Available Not Available lidocaine 5 % topical patch APPLY 1 PATCH TOPICALLY TODOS LOS D POR 7 D active Not Available Not Available No t Available promethazin e 25 mg tablet 03/10 completed Not Available Not Available Not Available ibuprofen 400 mg tablet 03/10 completed Not Available Not Available Not Available benztropine 1 mg tablet 05/13 completed Not Available Not Available Not Available fluoxetine 10 mg capsule 03/10 completed Not Available Not Available Not Available benztropine 2 mg tablet 05/13 completed Not Available Not Available Not Available gabapentin 300 mg capsule TOME FRITZ C PSULA TODOS LOS D AL ACOSTARSE active Not Available Not Available No t Available buspirone 7.5 mg tablet active Not Available Not Available Not Available omeprazole 20 mg capsule,del ayed release TOME FRITZ C PSULA TODOS LOS D active Not Available Not Available No t Available diclofenac sodium 75 mg tablet,sandrita yed release Take 1 tablet twice a day by oral route for 30 days. active Not Available Not Available No t Available hydroxyzine HCl 25 mg tablet active Not Available Not Available Not Available hydrocodone 5 mg-acetamin ophen 500 mg tablet 03/10 completed Not Available Not Available Not Available acyclovir 200 mg capsule 11/26 completed Not Available Not Available Not Available hydrochloro thiazide 25 mg tablet TOME FRITZ TABLETA TODOS LOS D active Not Available Not Available No t Available mirtazapine 15 mg tablet 03/10 completed Not Available Not Available Not Available gabapentin 100 mg capsule active Not Available Not Available Not Available ergocalcife rol (vitamin D2) 1,250 mcg (50,000 unit) capsule 03/10 completed Not Available Not Available Not Available Novolog U-100 Insulin aspart 100 unit/mL subcutaneou s solution 03/10 completed Not Available Not Available Not Available polyethylen e glycol 3350 17 gram/dose oral powder active Not Available Not Available Not Available lisinopril 40 mg tablet TOME FRITZ TABLETA LOS D active Not Available Not Available No t Available fluoxetine 20 mg capsule 03/10 completed Not Available Not Available Not Available metformin ER 500 mg tablet,exte nded release 24 hr 03/10 completed Not Available Not Available Not Available risperidone 1 mg tablet 03/10 completed Not Available Not Available Not Available loratadine 10 mg tablet 03/10 completed Not Available Not Available Not Available naproxen 500 mg tablet 03/10 completed Not Available Not Available Not Available oxycodone 5 mg tablet active Not Available Not Available No t Available hydroxyzine pamoate 25 mg capsule active Not Available Not Available N ot Available Estrace 0.01% (0.1 mg/gram) vaginal cream 03/10 completed Not Available Not Available Not Available Mapap Arthritis Pain 650 mg tablet,exte nded release active Not Available Not Available Not Available insulin lispro (U-100) 100 unit/mL subcutaneou s pen INJECT 24 UNITS UNDER SKIN BEFORE EVERY MEAL active Not Available Not Available No t Available azithromyci n 500 mg tablet 02/17 completed Not Available Not Available Not Available Novolog FlexPen U-100 Insulin aspart 100 unit/mL (3 mL) subcutaneou s 03/10 completed Not Available Not Available Not Available cyclobenzap rine 5 mg tablet 12/18 completed Not Available Not Available Not Available bupropion HCl XL 300 mg 24 hr tablet, extended release 03/10 completed Not Available Not Available Not Available Alcohol Prep Pads active Not Available Not Available No t Available OneTouch UltraSoft Lancets active Not Available Not Available Not Available Levemir U-100 Insulin 100 unit/mL subcutaneou s solution 03/10 completed Not Available Not Available Not Available Levemir FlexPen 100 unit/mL (3 mL) solution subcutaneou s insulin pen active Not Available Not Available Not Available BD Insulin Syringe Ult-Fine II 1 mL 31 gauge x 02/03 active Not Available Not Available Not Available BD Ultra-Fine Short Pen Needle 31 gauge x 02/03 1 MISC 5 TIMES A DAY active Not Available Not Available No t Available ProAir HFA 90 mcg/actuati on aerosol inhaler 03/10 completed Not Available Not Available Not Available BD Ultra Fine Lancets 33 gauge 05/13 completed Not Available Not Available Not Available Invega 6 mg tablet,exte nded release 03/10 completed Not Available Not Available Not Available Invega 9 mg tablet,exte nded release 03/10 completed Not Available Not Available Not Available hydrochloro thiazide 12.5 mg tablet TOME FRITZ TABLETA TODOS LOS D? active Not Available Not Available No t Available FreeStyle Lite Strips USE 1 STRIP TO CHECK BLOOD SUGAR 3 TIMES DAILY active Not Available Not Available No t Available Lantus Solostar U-100 Insulin 100 unit/mL (3 mL) subcutaneou s pen INJECT 68 UNIT(S) UNDER SKIN AT BEDTIME active Not Available Not Available No t Available FreeStyle [place] Lite kit active Not Available Not Available Not Available Novofine 32 32 gauge x 1/4 needle 03/10 completed Not Available Not Available Not Available Trilipix 135 mg capsule,del ayed release active Not Available Not Available Not Available Kombiglyze XR 5 mg-1,000 mg tablet,exte nded release 03/10 completed Not Available Not Available Not Available Kombiglyze XR 2.5 mg-1,000 mg tablet,exte nded release 03/10 completed Not Available Not Available Not Available Tradjenta 5 mg tablet active Not Available Not Available No t Available Ultra Thin Lancets 30 gauge active Not Available Not Available Not Available lancets 26 gauge USE CUATRO VECES AL D A active Not Available Not Available No t Available Victoza 3-Edward 0.6 mg/0.1 mL (18 mg/3 mL) subcutaneou s pen injector INJECT 1.8 MG UNDER THE SKIN ONCE DAILY active Not Available Not Available No t Available Jardiance 10 mg tablet active Not Available Not Available Not Available Jardiance 25 mg tablet active Not Available Not Available Not Available True Metrix Glucose Meter 03/10 completed Not Available Not Available Not Available Vraylar 1.5 mg capsule 03/10 completed Not Available Not Available Not Available Restasis MultiDose 0.05 % eye drops active Not Available Not Available Not Available Vitals Date Recorded Body height Provider Name an d Address Organization Details Last Updated DateTime 10/18/2020 157.48 cm Min Fragosojanis, SEDRICKM [address] [place], [address], [place] [employer] 10/18/2020 11:14:48 Date Recorded Body height Provider Name an d Address Organization Details Last Updated DateTime 01/28/2021 157.48 cm Min Rogers, SEDRICKM [address] [place], [address], [place] [employer] 01/28/2021 14:38:33 Date Recorded Body height Provider Name an d Address Organization Details Last Updated DateTime 05/06/2021 157.48 cm Min Rogers, DPM [address] [place], [address], [place] [employer] 05/06/2021 16:15:17 Date Recorded Body height Provider Name an d Address Organization Details Last Updated DateTime 08/09/2021 157.48 cm Min Rogers, DPM [address] [place], [address], [place] [employer] 08/09/2021 15:31:11 Date Recorded Body height Provider Name an d Address Organization Details Last Updated DateTime 02/18/2021 157.48 cm Min Rogers, DPM [address] [place], [address], [place] [employer] 10/18/2021 09:42:13 Social History Question Answer Notes LastModified by Organizat ion Details LastModified Time Tobacco Smoking Status Never Smoker Not Available [employer] 07/06/2020 03:15:47 What Is Your Level Of Alcohol Consumption? None [id number] Information not available 07/06/2020 Are You Blind Or Do You Have Difficulty Seeing? No [id number] Information not available 07/06/2020 Are You Deaf Or Do You Have Serious Difficulty Hearing? No [id number] Information not available 07/06/2020 Which Illicit Or Recreational Drugs Have You Used? Never [id number] Information not available 07/06/2020 What Is Your Occupation? Disabled - Mental Illness [id number] Information not available 07/06/2020 Marital Status [email or web address] Informatio n not available 10/17/2012 What Was The Date Of Your Most Recent Tobacco Screening? 12/28/2018 [id number] Information not available 07/06/2020 Sex: Unknown Functional Status Question Answer Note LastModified by Organization D etails LastModified Time Do you have difficulty walking or climbing stairs? No [id number] Information not available 07/06/2020 Do you have difficulty doing errands alone? No [id number] Information not available 07/06/2020 Do you have difficulty dressing or bathing? No [id number] Information not available 07/06/2020 Mental Status Question Answer Note LastModified by Organization D etails LastModified Time Do you have difficulty concentrating, remembering or making decisions? No [id number] Information no t available 07/06/2020 Family History Nothing Reported. Medical History Condition Response Obesity Y Venous Insufficiency Y Edema Y Diabetes II Y High Cholesterol Y Foot Deformity Y Mental Illness Y Hypertension Y Numbness Tingling Y Gynecological HistoryNo gynecological history recorded. Obstetrics History GPAL:G 0 P 0 0 0 0 Past Encounters Encounter ID Performer Location Encounter Start Date Encounter Closed Date Diagnosis/Indication Diagnosis SNOMED-CT Code Diagnosis ICD10 Code Diagnosis Note [id number] Min Rogers DPM [employer] [facility] [address] [place] [address] 10/14/2012 15:09:24 10/18/2012 09:39:25 [id number] Min Rogers DPM [employer] [facility] [place] [address] 11/11/2012 13:38:31 11/15/2012 16:52:19 [id number] Min Rogers [facility] [address] [place] [address] 02/03/2013 13:22:42 02/03/2013 14:21:55 [id number] Min Rogers [facility] [address] [address] 05/06/2013 13:22:19 05/06/2013 13:57:43 [id number] Min Rogers [facility] [address] [place] [address] 08/15/2013 10:36:55 08/15/2013 11:25:59 Uncontrolled type 2 diabetes mellitus 003574732 Ingrowing nail 168579815 Pain in limb 38587212 Onychomyco sis due to dermatophyte 016256843 Peripheral venous insufficiency 10052279 Edema 195593878 Acquired c avus deformity of foot 17065013 Hammer toe 106585290 [id number] Min Rogers [facility] [address] [address] 10/05/2013 11:52:21 10/05/2013 12:01:29 Uncontrolled type 2 diabetes mellitus 285456323 Hammer toe 745093108 [id number] Min Rogers [facility] [address] [address] 12/07/2013 12:16:56 12/07/2013 12:42:09 Uncontrolled type 2 diabetes mellitus 005243858 Hammer toe 516778156 Onychomyco sis due to dermatophyte 904227818 Pain in limb 57619622 Ingrowing nail 719249041 [id number] Min Rogers [facility] [address] [address] 02/16/2014 09:54:34 02/16/2014 10:32:43 Onychomycosis due to dermatophyte 924677571 Ingrowing nail 904236400 Pain in limb 20599254 Diabetes mellitus 61233225 Peripheral venous insufficiency 75625535 Edema 826601515 Acquired c avus deformity of foot 63457224 Hammer toe 990352299 [id number] Min Rogers DPM [employer] [facility] [address] [address] 05/11/2014 10:23:52 05/11/2014 10:24:21 Onychomycosis due to dermatophyte 272317184 Ingrowing nail 166753535 Pain in limb 96457493 Diabetes mellitus 19311177 Peripheral venous insufficiency 46738104 Edema 917656940 Acquired c avus deformity of foot 25430172 Hammer toe 663380302 [id number] Min Rogers DPM [employer] [facility] [address] [address] 08/03/2014 09:27:24 08/03/2014 10:21:02 Onychomycosis due to dermatophyte 232815674 Ingrowing nail 960121731 Pain in limb 69228305 Diabetes mellitus 93109768 Peripheral venous insufficiency 52090612 Edema 574642221 Acquired c avus deformity of foot 26011326 Hammer toe 506599344 [id number] Min Rogers DPM [employer] [facility] [address] [address] 10/27/2014 09:16:37 10/27/2014 10:30:34 Onychomycosis due to dermatophyte 729413710 Ingrowing nail 208251106 Pain in limb 60422553 Diabetes mellitus 51941791 Peripheral venous insufficiency 55874878 Edema 662448408 Acquired c avus deformity of foot 84191133 Hammer toe 372240303 [id number] Min Rogers DPM [employer] [facility] [address] [address] 11/02/2014 13:10:07 11/02/2014 13:21:56 Hammer toe 591999462 Acquired c avus deformity of foot 04108382 Uncontroll ed type 2 diabetes mellitus 558620872 [id number] Min Rogers DPM [employer] [facility] [address] [address] 11/13/2014 12:15:16 11/13/2014 12:33:38 Acquired cavus deformity of foot 83197961 Diabetes mellitus 17318196 Hammer toe 684802623 [id number] Min Rogers DPM [facility] [address] [place] [address] 01/18/2015 13:54:36 01/18/2015 14:06:52 Onychomycosis due to dermatophyte 832022756 Ingrowing nail 453489278 Pain in limb 64556369 Uncontroll ed type 2 diabetes mellitus 985294157 [id number] Min Rogers DPM [facility] [address] [address] 11/26/2017 10:25:50 11/26/2017 11:21:38 Overweight 643059148 E66.3 Ingrowing nail 182110128 L60.0 Pain in toe 574922381 M7 9.676 Disorder o 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 mellitus 036916517 E11.49 Hammer toe 677277181 M20 .41 M20.42 Onychomycosis 009677152 B35.1 [id number] SEDRICK Villavicencio [employer] [facility] [address] [address] 01/21/2018 13:25:31 01/21/2018 13:28:43 Disorder o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 mellitus 986713129 E11.49 Hammer toe 115642960 M20 .41 M20.42 [id number] Min Rogers DPM [facility] [address] [address] 02/17/2018 11:45:01 02/17/2018 12:02:11 Disorder o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 mellitus 431368215 E11.49 Hammer toe 018542796 M20 .41 M20.42 [id number] SEDRICK Villavicencio [facility] [address] [address] 03/04/2018 08:59:26 03/04/2018 09:00:37 Onychomycosis due to dermatophyte 098393403 B35.1 Ingrowing nail 875407065 L60.0 Pain in limb 14771517 M7 9.609 Uncontroll ed type 2 diabetes mellitus 831673372 E11.65 [id number] SEDRICK Villavicencio [facility] [address] [address] 05/13/2018 09:31:40 05/13/2018 09:56:12 Ingrowing nail 300036136 L60.0 Pain in limb 33423256 M7 9.609 Uncontroll ed type 2 diabetes mellitus 024468482 E11.65 Onychomycosis 883976962 B35.1 Obese 626540141 E66.9 [id number] Min Rogers DPM [employer] [facility] [employer] [facility] [place] [address] 07/29/2018 11:05:10 07/29/2018 11:15:42 Arthritis of right subtalar joint 8154306447 7166909 M13.871 Pain of ri ght ankle joint 4643453262 4061199 M25.571 Onychomycosis 224100577 B35.1 Ingrowing nail 764853291 L60.0 Uncontroll ed type 2 diabetes mellitus 401894422 E11.65 Obese 844630474 E66.9 Plantar fasciitis 463423 003 M72.2 Pain in toe 712175030 M7 9.676 [id number] Min Rogers DPM [employer] [facility] [employer] [facility] [place] [address] 08/02/2018 09:02:54 08/02/2018 09:39:55 Foot pain 78461297 M79.671 Arthritis of right subtalar joint 3169327600 2070609 M13.871 Plantar fasciitis 482537 003 M72.2 Onychomycosis 936029333 B35.1 Ingrowing nail 231688879 L60.0 Pain in toe 776149274 M7 9.676 Uncontroll ed type 2 diabetes mellitus 076867323 E11.65 Obese 724406443 E66.9 [id number] Min Rogers DPM [employer] [facility] [employer] [facility] [place] [address] 08/10/2018 11:41:12 08/10/2018 12:40:42 Plantar fasciitis 328297116 M72.2 Foot pain 14214157 M79.6 71 M79.672 [id number] Min Rogers DPM [employer] [facility] [employer] [facility] [place] [address] 10/19/2018 11:14:44 10/19/2018 13:16:01 Onychomycosis 492314365 B35.1 Ingrowing nail 687125874 L60.0 Pain in limb 97804407 M7 9.609 Uncontroll ed type 2 diabetes mellitus 782594065 E11.65 Obese 729511244 E66.9 [id number] Min Rogers DPM [employer] [facility] [employer] [address] [place] [address] 12/28/2018 08:27:54 12/28/2018 09:22:02 Onychomycosis 542441079 B35.1 Ingrowing nail 467923213 L60.0 Pain in limb 42028221 M7 9.609 Uncontroll ed type 2 diabetes mellitus 205771818 E11.65 Obese 426593471 E66.9 [id number] Min Rogers DPM [employer] [facility] [employer] [address] [place] [address] 03/10/2019 11:30:47 03/10/2019 12:35:36 Onychomycosis 190387715 B35.1 Ingrowing nail 127075547 L60.0 Pain in limb 87470483 M7 9.609 Uncontroll ed type 2 diabetes mellitus 352468425 E11.65 Obese 515153805 E66.9 [id number] Min Rogers DPM [employer] [facility] [employer] [address] [place] [address] 06/09/2019 08:31:13 06/09/2019 09:28:11 Onychomycosis 347398145 B35.1 Ingrowing nail 113995489 L60.0 Pain in limb 03087043 M7 9.609 Uncontroll ed type 2 diabetes mellitus 830115525 E11.65 Obese 461326835 E66.9 Osteoarthr itis of subtalar joint 416322168 M19.072 Foot pain 14200211 M79.6 72 [id number] Min Rogers DPM [employer] [facility] [employer] [address] [place] [address] 08/26/2019 15:57:18 08/26/2019 16:06:24 Overweight 745592165 E66.3 Onychomycosis 546007573 B35.1 Ingrowing nail 343165451 L60.0 Uncontroll ed type 2 diabetes mellitus 975239230 E11.65 Pain in toe 130411295 M7 9.676 [id number] Min Rogers DPM [employer] [facility] [employer] [address] [place] [address] 10/31/2019 08:53:06 10/31/2019 09:32:13 Onychomycosis 739772888 B35.1 Ingrowing nail 961344212 L60.0 Pain in toe 330181639 M7 9.676 Overweight 053086182 E66 .3 Disorder o 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 mellitus 747156566 E11.49 Hammer toe 607094482 M20 .41 M20.42 [id number] Min Rogers DPM [employer] [facility] [employer] [address] [place] [address] 12/19/2019 17:27:14 12/19/2019 17:36:09 Disorder o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 mellitus 586764849 E11.49 Hammer toe 600652691 M20 .41 M20.42 [id number] Min Rogers DPM [employer] [facility] [employer] [address] [place] [address] 01/26/2020 13:22:34 01/26/2020 15:00:52 Onychomycosis 573281914 B35.1 Ingrowing nail 502286319 L60.0 Pain in toe 374314510 M7 9.676 Disorder o 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 mellitus 686368138 E11.49 Hammer toe 134102007 M20 .41 M20.42 Overweight 274364166 E66 .3 [id number] Min Rogers DPM [employer] [facility] [employer] [address] [place] [address] 04/12/2020 11:04:10 04/12/2020 11:16:03 Onychomycosis 098352918 B35.1 Ingrowing nail 135109052 L60.0 Pain in toe 046166494 M7 9.676 Disorder o 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 mellitus 965014224 E11.49 Hammer toe 391343864 M20 .41 M20.42 Overweight 391899551 E66 .3 [id number] Min Rogers DPM [employer] [facility] [employer] [address] [place] [address] 07/16/2020 12:08:06 07/16/2020 12:20:12 Onychomycosis 427676225 B35.1 Ingrowing nail 507494302 L60.0 Pain in toe 858589198 M7 9.676 Disorder o 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 mellitus 961894206 E11.49 Hammer toe 544638496 M20 .41 M20.42 Overweight 790742596 E66 .3 [id number] SEDRICK Villavicencio [facility] [address] [address] 10/18/2020 11:06:15 10/18/2020 11:53:04 Onychomycosis 611818223 B35.1 Ingrowing nail 349443532 L60.0 Pain in toe 354380389 M7 9.676 Disorder o 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 mellitus 006654825 E11.49 Hammer toe 185529638 M20 .41 M20.42 Overweight 759397925 E66 .3 [id number] SEDRICK Villavicencio [employer] [facility] [address] [address] 01/28/2021 14:36:07 01/28/2021 14:49:01 Onychomycosis 288218064 B35.1 Ingrowing nail 445212244 L60.0 Pain in toe 606826288 M7 9.676 Disorder o 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 mellitus 319971288 E11.49 Obesity 824040064 E66.9 [id number] SEDRICK Villavicencio [employer] [facility] [address] [address] 05/06/2021 16:07:24 05/06/2021 16:26:10 Onychomycosis 741905577 B35.1 Ingrowing nail 574898065 L60.0 Pain in toe 384376395 M7 9.676 Disorder o 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 mellitus 539529064 E11.49 Obesity 708382436 E66.9 [id number] Min Rogers DPM [employer] [facility] [address] [address] 08/09/2021 15:26:42 08/09/2021 15:31:37 Foot callus 727065671 L84 Onychomycosis 548561917 B35.1 Ingrowing nail 551237666 L60.0 Pain in toe 312570029 M7 9.676 Disorder o 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 mellitus 176351901 E11.49 Obesity 278383722 E66.9 Hammer toe 417033770 M20 .41 M20.42 [id number] Min Rogers DPM [facility] [place] [address] [place] [address] 10/18/2021 09:41:46 10/18/2021 09:52:37 Disorder o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 mellitus 711214756 E11.49 Hammer toe 889495644 M20 .41 M20.42 Health Concerns Section Related Observation LastModified by Organization Detai ls LastModified Time None Recorded Concern Status LastModified by Organization Details LastModified Time None Recorded Advance Directives Directive None Recorded Payers Encounter Date Sequence Insurance Name Policy Number Policy Orozco Covered Member ID Orozco Member ID Guarantor Name 10/18/2020 1 [employer] PRIOR [place] 2022 (MEDICAID REPLACEMENT - HMO) [place] Bessie Alfonso [id number] Bessie Alfonso 01/28/2021 1 [employer] 20[place] ([place]AC[place] - [place]) [place] Bessie Alfonso [id number] Bessie Alfonso 02/18/2021 1 [employer] 20[place] ([place]AC[place] - [place]) [place] Bessie Alfonso [id number] Bessie Alfonso 05/06/2021 1 [employer] Bessie Alfonso [id number] Bessie Alfonso 08/09/2021 1 [employer] Bessie Alfonso [id number] Bessie Alfonso Notes Date Note Type Note Provider Name and Address Organization Details Recorded Time 10/18/2020 text/html Bessie presents f or follow up T2D with generalized foot/arch pain along with painful thick ingrown toenails bilateral feet. Relates no new foot complaints or signicant changes in PMH or Rx's since last visit. Denies fever/chills, head ache, sore throat, cough, shortness of breath and/or other constitutional symptoms suggestive of coronavirus COVID-19 disease. Min JuniorMilena Rogers DPM [address] [place], [address], [facility] 10/18/2020 12:33:21 01/28/2021 text/html Bessie presents f or follow up T2D w/ obesity, generalized foot/arch pain along with painful thick ingrown toenails bilateral feet. Relates no new foot complaints or signicant changes in PMH or Rx's since last visit. Denies fever/chills, head ache, sore throat, loss of smell/taste, cough, shortness of breath and/or other constitutional symptoms suggestive of active coronavirus COVID-19 disease (fully vaccinated). Min Rogers DPM [address] [place], [address], [facility] 01/28/2021 15:02:07 05/06/2021 text/html Bessie presents f or follow up T2D w/ obesity, generalized foot/arch pain along with painful thick ingrown toenails bilateral feet. Relates no new foot complaints or signicant changes in PMH or Rx's since last visit. Denies fever/chills, head ache, sore throat, loss of smell/taste, cough, shortness of breath and/or other constitutional symptoms suggestive of active coronavirus COVID-19 disease (fully vaccinated). Min Rogers DPM [address] [place], [address], [facility] 05/07/2021 08:23:15 08/09/2021 text/html Bessie presents f or follow up T2D w/ obesity, generalized foot/arch pain along with painful thick ingrown toenails bilateral feet. Also presents today to determine the risk of ulceration related to Diabetes Mellitus with neurological complications. Physical examination has revealed that BESSIE ALFONSO is at risk of developing infections and or ulcerations, which would be reduced with properly fitted therapeutic shoes and diabetic or custom accommodative inserts. Relates no new foot complaints or signicant changes in PMH or Rx's since last visit. Denies fever/chills, head ache, sore throat, loss of smell/taste, cough, shortness of breath and/or other constitutional symptoms suggestive of active coronavirus COVID-19 disease (vaccinated). Min Rogers DPM [address] [place], [address], [facility] 08/19/2021 12:11:02 OBGyn Episode No OBEpisode recorded.
--- OUTSIDE RECORDS SUMMARY | 2024-10-31 12:08 | XMS_ITS | Continuity of Care Document ---
Author Organization [employer], [facility] Address [address] [place] [address] Phone Care Team Providers Care Chemical Research Technician Name Role Phone Gerard Valdes CNP [...] 26, 67, 70 and 82may occur.Performed at [facility] [id number] [facility] [id number] Panel Description: Microscop ic observation [Identifier] in Cervix by Cyto stain.thin prep Final PAP, THIN PREP WITH IMAGING 2019 12:52:1 1 SEE COMMENT Final Final Cytologic Interpretation ThinPrep Pap Test (Cervical): Satisfactory for evaluation. NEGATIVE FOR INTRAEPITHELIAL LESION OR MALIGNANCY. The cytologic changes of atrophy are noted. [facility]/11/20/2019Interpret [place] [address], License number: [id number]. Electronically Signed Out By JASON Steele(ASCP) Date of Last Menstrual Period: (None Given) Other Clinical Conditions:Z11.51 Screening for HPVZ12.4 Screening for malignant neoplasm of cervixPostmenopausal Source of Specimen ThinPrep Pap Test (Cervical) Thin Prep Pap ([employer]E WORK[employer]) Fee Code(s): G0145 The Pap test is a screening test with an inherent, but low,probability of error. The Pap test is primarily effective for thediagnosis and prevention of squamous cell carcinoma. Regular screeningis critical for prevention. ThinPrep liquid-based slides, which meet the Advanced Practice Registered Nurse criteria forautomated screening, have been screened by the [employer] [facility] [employer] System(as of 06/07/07) along with an additional manual rescreening by acytotechnologist and, if indicated, by a pathologist. Pathology [employer] [address] [place] [id number] No. [id number] CAP Accreditation No. [id number] Director: Randal Briones M.D. Advance Directives Directive Yes / No Effective Date File Name No Information Encounters Encounter Description Practice Location Reason(s) For Visit Diagnoses Date Provider Providers Copied on Encounter PREV VISIT, EST, AGE 40-64 [employer], [address] [place] [address], [id number] , [place] tel:[phone] [facility] annual exam (chief complaint) Encntr for level vial marker exam (general) (routine) w/o abn findingsBreast cancer screeningCervical cancer screeningScreening for HPV (human papillomavirus)[place] ge barrier affecting health care 0 Keisha Gee. [address] [place] [address], [id number] , [place]. tel: [phone] Referring Provider: Gutierrez Collins, [address] [place] [address], [id number] . tel:[phone] PREV VISIT, EST, AGE 40-64 [facility], [address] [place] [address], [id number] , [place] tel: [phone] [facility] annual exam (chief complaint) Routine level vial marker examinationScreening for HPV (human papillomavirus) 5 Geno Ugarte. [address] [place] [address] [place], [place], [id number] . tel: [phone] Referring Provider: Torito Moon, [address] [place] [address] [place], [address] . tel:[phone] OFFICE/OUTPA TIENT VISIT, EST [facility] [employer], [address] [place] [address], [id number] , [place] tel: [phone] [facility] Hospital[facility]se[facility] PAP repeat (chief complaint) Symptom associated with female genital organsPap smear cannot exclude high grade squamous intraepithelial lesion (ASC-H) 4 Kwadwo Whitley. [address] [place] [address], [id number] . tel: [phone] Referring Provider: Gutierrez Collins, [address] [place] [address], [address] . tel:[phone] PREV VISIT, EST, AGE 40-64 [facility], [address] [place] [address], [id number] , [place] tel: [phone] [facility] annual [facility] (chief complaint) Moderate dysplasia of cervix (DESI II)Gynecological Examination 3 Kwadwo Whitley. [address] [place] [address], [id number] . tel: [phone] Referring Provider: Gutierrez Burkett MD W, [address] [place] [address], [id number] . tel:[phone] OFFICE/OUTPA TIENT VISIT, [facility] [employer] [facility], [address] [place] [address], [id number] , [place] tel: [phone] [facility] repeat pap (chief complaint) DYSPLASIA OF CERVIX NOSDYSPLASIA OF CERVIX NOS 3 Kwadwo Whitley. [address] [place] [address], [id number] . tel: [phone] Referring Provider: Gutierrez Burkett MD W, [address] [place] [address], [id number] . tel:[phone] [facility], [address] [place] [address], [id number] , [place] tel: [phone] [facility] No Information 3 Kwadwo Whitley. [address] [place] [address], [id number] . tel: [phone] OFFICE/OUTPA TIENT VISIT, [facility], [address] [place] [address], [id number] , [place] tel: [phone] [facility] No Information 3 Kwadwo Whitley. [address] [place] [address], [id number] . tel: [phone] Referring Provider: Gutierrez Collins, [address] [place] [address], [address] . tel:[phone] OFFICE/OUTPA TIENT VISIT, [facility], [address] [place] [address], [id number] , [place] tel: [phone] [facility] No Information 2 Kwadwo Whitley. [address] [place] [address], [id number] . tel: [phone] Referring Provider: Gutierrez Burkett MD W, [address] [place] [address], [place], [address] . tel:[phone] OFFICE/OUTPA TIENT VISIT, [facility] [employer], [address] [place], [place] [address] [facility], [place], [place], [id number] , [place] tel: [phone] [facility] No Information 2 Kwadwo Whitley. [address] [place] [address], [place], [place], [id number] . tel: [phone] Referring Provider: Gutierrez Burkett MD W, [address] [place], [place] [address] [facility], [place], [address] . tel:[phone] [facility], [address] [place], [place] [address] [facility], [place], [place], [id number] , [place] tel: [phone] [facility] No Information 2 Kwadwo Whitley. [address] [place] [address], [id number] . tel: [phone] Referring Provider: Gutierrez Burkett MD W, [address] [place], [place] [address], [address] . tel:[phone] OFFICE/OUTPA TIENT VISIT, [facility], [address] [place], [place] [address] [facility], [place], [place], [id number] , [place] tel: [phone] [facility] No Information 2 Kwadwo Whitley. [address] [place] [address], [id number] . tel: [phone] Referring Provider: Gutierrez Collins, [address] [place], [address] . tel:[phone] Family History Family Member Type Diagnosis Age At Onset No Information Immunizations Vaccine Date Status Comments Flu (split) (3 yrs or older) administered Note: Invalid documented admin date was . ; Source: Other Provider Payers Payer name Insurance type Covered democrat ID Socrates Galarza (s) [id number] Social History Type Description Quantity Date Captured [...] information: ptreturns after 5 years, very limited [place]-accompanied by her , also limited [place]. h/o ASC_H pap with neg biopsies, neg pap in 2012, 2013 and 2014. will repeat today. unsure of last mammogram. denies any PMB or level vial marker concerns. Reason For Referral Reason For Referral No Information Plan Of Treatment Date Type Action Status Goal Mammogram (Scree natalya); Bilateral. Due on due Goal Colonoscopy Scre en. Due on due Future Order: Radiology Order Ma mmogram, Screening ([id number]), Ordered on: Ordered Future Order: Lab Order PAP (TP) - IMAGE GUIDED ([id number]), Ordered on: Ordered History Of Present Illness [...] pt returns after 5 years, very limited [place]-accompanied by her , also limited [place]. h/o ASC_H pap with neg biopsies, neg pap in 2012, 2013 and 2014. will repeat today. unsure of last mammogram. denies any PMB or level vial marker concerns. annual exam Currently pregna nt: no. [...] return to once yearly. Related to Routine level vial marker examination Increase Activity, M onthly Breast Exams at home Related to Routine level vial marker examination Rtn in 6 mos for annual Related to Pap smear cannot exclude high grade squamous intraepithelial lesion (ASC-H) pt to return in April for stef weller Related to DYSPLASIA OF CERVIX NOS Assessments Type Assessment Date assessment Encntr for level vial marker exam (general) (r outine) w/o abn findings [...] Mental Status Date Cognitive Assessment Orientation - Garland ed to time, place, person, situation. Patient Care Teams Name Effective Dates (start - stop) Status Members No Information
--- OUTSIDE RECORDS SUMMARY | 2024-10-31 12:08 | XMS_ITS | Continuity of Care Document ---
Author Organization [facility] [place] Address [address] [facility] [address] [place] [address] Phone Care Team Providers Care [place] Activities Coordinator Name Role Phone Blaise FREEMAN, Gerson Unavailable Unavaila ble Allergies, Adverse Reactions, Alerts [...] THE SKIN ONCE EVERY WEEK. DELIVER TO [facility] - Active acetaminophen ER 650 mg tablet,extended [...] Active clonazepam 0.5 mg tablet RX BY [facility] -- DO NOT REFILL -- REDUCED IN [...] once daily into the left ear on (M-) for 5 days total - Active PLEASE DELIVER TO [address] [facility] ELDERCARE pen needle, diabetic 31 gauge x 5/16 use 4 times a day as directed - Active ammonium lactate 12 % topical cream apply to affected area BID - Active Humalog U-100 Insulin 100 unit/mL subcutaneous solution inject by subcutaneous route pre lunch on per Sliding scale - Active Please send to [facility]. Please do not autorefill.\Un julianna 200-no insulin. 201-250-4 units, 251-300-6 units, 301-350-8 units, over 350 inform clinician Natasha Ultra Strength 4 %-30 %-10 % topical cream apply to affrected area up to 3 times a day as directed - Active trazodone 100 mg tablet RX BY [facility] -- DO NOT REFILL -- take 1 tablet by oral route every bedtime - Active acetaminophen 325 mg tablet FOR USE AT DAY PROGRAM -- take 2 tablet by oral route every 4 hours as needed for pain, please do not exceed 2 doses/day at - Active polyethylene glycol 3350 17 gram/dose oral powder FOR USE AT [facility] DAY PROGRAM - mix 17g into water and drink daily as needed for constipation - Active amlodipine 5 mg tablet take 1 tablet by oral route twice a day - Active cetirizine 10 mg tablet take 1 tablet by oral route every day as needed for allergy symptoms - Active Gvoke HypoPen 2-Pack 0.5 mg/0.1 mL subcutaneous auto-injector - Active Procedures Procedure Date THERAPEUTIC ACTIVITIES THERAPEUTIC EXERCISES ULTRASOUND THERAPY HOT OR COLD PACKS THERAPY ULTRASOUND THERAPY THERAPEUTIC EXERCISES ULTRASOUND THERAPY THERAPEUTIC EXERCISES HOT OR COLD PACKS THERAPY ULTRASOUND THERAPY THERAPEUTIC EXERCISES HOT OR COLD PACKS THERAPY ULTRASOUND THERAPY THERAPEUTIC EXERCISES PT EVAL MOD COMPLEX 30 MIN OFFICE/OUTPATIENT VISIT EST OFFICE/OUTPATIENT VISIT EST OFFICE/OUTPATIENT VISIT EST OFFICE/OUTPATIENT VISIT EST MED NUTRITION INDIV SUBSEQ OFFICE/OUTPATIENT VISIT EST HOT OR COLD PACKS THERAPY THERAPEUTIC ACTIVITIES HOT OR COLD PACKS THERAPY THERAPEUTIC ACTIVITIES SELF CARE MNGMENT TRAINING SELF CARE MNGMENT TRAINING HOT OR COLD PACKS THERAPY THERAPEUTIC ACTIVITIES HOT OR COLD PACKS THERAPY THERAPEUTIC ACTIVITIES SELF CARE MNGMENT TRAINING ORAL FUNCTION THERAPY THERAPEUTIC ACTIVITIES THERAPEUTIC ACTIVITIES EVALUATE SWALLOWING FUNCTION ORAL FUNCTION THERAPY SELF CARE MNGMENT TRAINING OFFICE/OUTPATIENT VISIT EST SELF CARE MNGMENT TRAINING OT EVAL LOW COMPLEX 30 MIN MED NUTRITION INDIV SUBSEQ HOT OR COLD PACKS THERAPY OFFICE/OUTPATIENT VISIT EST HOT OR COLD PACKS THERAPY GAIT TRAINING THERAPY GAIT TRAINING THERAPY HOT OR COLD PACKS THERAPY THERAPEUTIC EXERCISES GAIT TRAINING THERAPY HOT OR COLD PACKS THERAPY THERAPEUTIC EXERCISES THERAPEUTIC ACTIVITIES GAIT TRAINING THERAPY HOT OR COLD PACKS THERAPY THERAPEUTIC EXERCISES HOT OR COLD PACKS THERAPY GAIT TRAINING THERAPY THERAPEUTIC EXERCISES IMMUNIZATION ADMIN IIV4 VACC NO PRSV 0.5 ML IM GAIT TRAINING THERAPY HOT OR COLD PACKS THERAPY THERAPEUTIC EXERCISES HOT OR COLD PACKS THERAPY THERAPEUTIC EXERCISES HOT OR COLD PACKS THERAPY THERAPEUTIC EXERCISES HOT OR COLD PACKS THERAPY THERAPEUTIC ACTIVITIES THERAPEUTIC ACTIVITIES HOT OR COLD PACKS THERAPY OFFICE/OUTPATIENT VISIT EST HOT OR COLD PACKS THERAPY THERAPEUTIC ACTIVITIES THERAPEUTIC EXERCISES PT EVAL LOW COMPLEX 20 MIN THERAPEUTIC ACTIVITIES OT EVAL LOW COMPLEX 30 MIN SELF CARE MNGMENT TRAINING MEDICAL NUTRITION INDIV IN OT EVAL LOW COMPLEX 30 MIN PT EVAL LOW COMPLEX 20 MIN OFFICE/OUTPATIENT VISIT NEW Advance Directives Directive Yes / No Effective Date File Name No Information Encounters Encounter Description Practice Location Reason(s) For Visit Diagnoses Date Provider Providers Copied on Encounter Critical [facility] hospital, 1 [facility] [employer] Formerly named [facility], [place], [place], [id number], [place] tel:[phone] Page No Information 4 Blaise Valenciajjsedricka. [address], [place], [place], [address], [place]. tel:[phone] Critical access hospital, [address], [place], [place], [id number], [place] tel:[phone] Page No Information Christopher-2 0- 3 Dorothea Day. [address] [place], [id number], [place]. tel:[phone] [facility] [address] [place], [place], [id number], [place] tel:[phone] Page No Information Christopher-1 3 Blaise Nieto. [address] [place], [place], [address], [place]. tel:[phone] Critical access hospital, [address], [place], [place], [id number], [place] tel:[phone] Page Other chronic pain Christopher-0 3 Uribe Lynette. [address] [place], [place], [id number], [place]. tel:[phone] Critical access hospital, [address], [place], [place], [address], [place] tel:[phone] Page Muscle weakness (generalized) Other chronic pain January- 3 Uribe Lynette. [address] [place], [place], [address], [place]. tel:[phone] Critical access hospital, [address], [place], [place], [address], [place] tel:[phone] Page Other chronic painMuscle weakness (generalized) January- 3 Uribe Lynette. [address] [place], [place], [address], [place]. tel:[phone] Critical access hospital, [address], [place], [place], [address], [place] tel:[phone] Page Other chronic pain January- 3 Uribe Lynette. [address] [place], [place], [address], [place]. tel:[phone] Critical access hospital, [address], [place], [place], [address], [place] tel:[phone] Page Acute right-sided low back pain with right-sided sciatica May-1 2-202 3 Baldemar Leachine. [address] [facility] [place], [address], [place]. tel:[phone] Critical access hospital, 1 [facility] [address], [place], [place], [address], [place] tel:[phone] Page Acute right-sided low back pain with right-sided sciatica May-0 9- 3 Baldemar Landrum. [address] [place], [place], [address], [place]. tel:[phone] Critical access hospital, 1 [facility] [address], [place], [place], [address], [place] tel:[phone] Page Encounter for rehabilitatio n evaluationAcu te right-sided low back pain with right-sided sciatica May-0 5- 3 Baldemar Landrum. [address] [place], [place], [address], [place]. tel:[phone] OFFICE/OUTPA TIENT VISIT EST Critical access hospital, 1 [facility] [address], [place], [place], [address], [place] tel:[phone] Page Lower extremity edema (chief complaint) Localized edemaRadicula r pain May-0 4-202 3 Bhagavatula Ucesiaa. [address] [place], [place], [id number], [place]. tel:[phone] Critical access hospital, 1 [facility] [address] Formerly named [facility], [place], [place], [address], [place] tel:[phone] Page Lumbago with sciatica, right side May-0 3-202 3 Raffaelerubio Alfonso. [address] [place], [place], [address], [place]. tel:[phone] [facility] [address], [place], [place], [address], [place] tel:[phone] Page No Information 3 Raffaele Kaden. [address] [place], [place], [id number], [place]. tel:[phone] Critical access hospital, 1 [facility] [address] Formerly named [facility], [place], [place], [address], [place] tel:[phone] Page No Information 3 Raffaele Coppolan. [address] [place], [place], [address], [place]. tel:[phone] [facility], [facility], [place], [place], [address], [place] tel:[phone] Page Encounter for general adult medical examination without abnormal findings 3 Pedro Luis Crystal. [address] [place], [place], [address], [place]. tel:[phone] OFFICE/OUTPA TIENT VISIT EST [facility], [facility] Former[facility] named [facility], [place], [place], [address], [place] tel:[phone] Page OV (chief complaint) Localized edemaLeg cramps 3 Bhagavatula Ujjwala. [address] [place], [place], [address], [place]. tel:[phone] Critical [facility] hospital, [facility] Former[facility] named [facility], [place], [place], [address], [place] tel:[phone] Page No Information 3 Bhagavatula Ujjwala. [address] [place], [place], [address], [place]. tel:[phone] OFFICE/OUTPA TIENT VISIT EST Critical [facility] hospital, [facility] Former[facility] named [facility], [place], [place], [address], [place] tel:[phone] Page OV (chief complaint) Bipolar 1 disorder Nov- 3 Bhagavatula Ujjwala. [address] [place], [place], [address], [place]. tel:[phone] Critical access hospital, [address] [address], [place], [place], [address], [place] tel:[phone] Page No Information 3 Blaise Ujjwalvernon. [address] [place], [place], [address], [place]. tel:[phone] Critical access hospital, [address] [address], [place], [place], [address], [place] tel:[phone] Page No Information 3 Raffaele Kaden. [address] [place], [place], [id number], [place]. tel:[phone] Critical access hospital, [address] [address], [place], [place], [address], [place] tel:[phone] Page No Information 3 Pedro Luis Crystal. [address] [place], [place], [address], [place]. tel:[phone] OFFICE/OUTPA TIENT VISIT EST Critical access hospital, [address] [address], [place], [place], [address], [place] tel:[phone] Page RAJENDRA (chief complaint) Bipolar 1 disorderGAD (generalized anxiety disorder)Schi zophrenia, unspecified typeHypertens ion, unspecified typeHyperchol esteremiaType 2 diabetes mellitus without complication, with long-term current use of insulinLong term current use of insulinHypoth yroidism, unspecified typeLong-term current use of injectable noninsulin antidiabetic medicationGas troesophageal reflux disease without esophagitisEd lisette, unspecified typeTremorExc essive cerumen in left ear canal 3 Pedro Luis Crystal. [address] [place], [place], [address], [place]. tel:[phone] Critical access hospital, [address] [address], [place], [place], [address], [place] tel:[phone] Page No Information 3 Pedro Luis Crystal. [address] [place], [place], [address], [place]. tel:[phone] Critical access hospital, [address], [place], [place], [address], [place] tel:[phone] Page Skin excoriation 3 Pedro Luis Crystal. [address] [place], [place], [address], [place]. tel:[phone] Critical access hospital, 1 [facility] [address], [place], [place], [address], [place] tel:[phone] Page Encounter for nutritional assessmentOth er obesityDefici ency of other specified nutrient elements 3 Normile Dia. [address] [place], [place], [id number], [place]. tel:[phone] OFFICE/OUTPA TIENT VISIT EST Critical access hospital, 1 [facility] [address] Formerly named [facility], [place], [place], [address], [place] tel:[phone] Page OV (chief complaint) Left foot pain 3 Pedro Luis Crystal. [address] [place], [place], [address], [place]. tel:[phone] Critical access hospital, 1 [facility] [address] Formerly named [facility], [place], [place], [address], [place] tel:[phone] Page No Information 3 Raffaele Alfonso. [address] [place], [place], [address], [place]. tel:[phone] Critical access hospital, 1 [facility] [address], [place], [place], [address], [place] tel:[phone] Page Encounter for rehabilitatio n evaluationChr onic bilateral low back pain, unspecified whether sciatica presentOther chronic painPain of both shoulder jointsPain in left shoulder 3 Ren Jessenia. [address] [place], [place], [address], [place]. tel:[phone] Critical access hospital, [address], [place], [place], [address], [place] tel:[phone] Page Other lack of coordinationC hronic midline low back pain, unspecified whether sciatica presentOther chronic pain 0 3 Ren Jessenia. [address] [place], [place], [address], [place]. tel:[phone] Critical access hospital, [address], [place], [place], [address], [place] tel:[phone] Page Other lack of coordination Aug-2 2 Ren Jessenia. [address] [place], [place], [address], [place]. tel:[phone] Critical access hospital, [address], [place], [place], [address], [place] tel:[phone] Page Other chronic painOther lack of coordination Aug-2 2 Ren Jessenia. [address] [place], [place], [address], [place]. tel:[phone] Critical access hospital, [address], [place], [place], [address], [place] tel:[phone] Page Other lack of coordinationC hronic bilateral low back pain, unspecified whether sciatica presentOther chronic pain Dec-2 2- 2 Ren Jessenia. [address] [place], [place], [address], [place]. tel:[phone] Critical access hospital, [address], [place], [place], [address], [place] tel:[phone] Page Muscle weakness (generalized) Dec-2 0- 2 Ren Jessenia. [address] [place], [place], [address], [place]. tel:[phone] Critical [facility], [facility] [address] Former[facility] named [facility], [place], [place], [address], [place] tel:[phone] Page Oropharyngeal dysphagia Aug- 2 Caselden Sofiya. [address], [address], [place]. tel:[phone] [facility], [facility], [place], [place], [address], [place] tel:[phone] Page Other lack of coordination Aug- 2 eRn Ruelas. [address], [address], [place]. tel:[phone] [facility], [facility] Former[facility], [place], [place], [address], [place] tel:[phone] Page Other lack of coordination Aug-0 2 Renbettye Ruelas. [address], [address], [place]. tel:[phone] Critical access hospital, 1 [facility] [address] Formerly named [facility], [place], [place], [address], [place] tel:[phone] Page Oropharyngeal dysphagia Aug-0 2 Caseldjulio Sofiya. [address], [address], [place]. tel:[phone] Critical [facility] hospital, [facility], [place], [place], [address], [place] tel:[phone] Page Alteration in performance of activities of daily living Aug-0 2 Ren Ruelas. [address], [place], [place], [address], [place]. tel:[phone] OFFICE/OUTPA TIENT VISIT EST Critical access hospital, 1 [facility] [address] Formerly named [facility], [place], [place], [address], [place] tel:[phone] Page OV (chief complaint) DM type 2 with diabetic peripheral neuropathyLon g term (current) use of insulinLong-t erm (current) use of injectable non-insulin antidiabetic drugs Dec-0 2 Pedro Luis Bonilla. [address] [place], [place], [address], [place]. tel:[phone] Critical access hospital, [facility] Former[facility] named [facility], [place], [place], [address], [place] tel:[phone] Page Alteration in performance of activities of daily living Aug-0 2 Ren Ruelas. [address] [place], [place], [address], [place]. tel:[phone] Critical access hospital, [facility] Former[facility] named [facility], [place], [place], [address], [place] tel:[phone] Page [facility] (current) use of insulin Dec 2 Raffaele Coppolan. [address] [place], [place], [address], [place]. tel:[phone] Critical access hospital, [facility] Former[facility] named [facility], [place], [place], [address], [place] tel:[phone] Page Encounter for rehabilitatio n evaluation 2 Ren Webbah. [address] [place], [place], [address], [place]. tel:[phone] Critical access hospital, [facility] Former[facility] named [facility], [place], [place], [address], [place] tel:[phone] Page Dysphagia, unspecified typeFeeding difficultiesE ncounter for nutritional assessment 2 Normile Dia. [address] [place], [place], [id number], [place]. tel:[phone] Critical access hospital, [facility] Former[facility] named [facility], [place], [place], [address], [place] tel:[phone] Page Other chronic pain 2 Jojo Ojeda. [address] [place] [address], [place], [place], [address], [place]. tel:[phone] OFFICE/OUTPA TIENT VISIT EST Critical access hospital, [address], [place], [place], [address], [place] tel:[phone] Page PHV (chief complaint) Bilateral shoulder pain, unspecified chronicity 0 2 Pedro Luis Bonilla. [address] [place], [place], [address], [place]. tel:[phone] Critical access hospital, 1 [facility] [address], [place], [place], [address], [place] tel:[phone] Page Other chronic pain Jun- 2 Baldemar Landrum. [address] [place], [place], [address], [place]. tel:[phone] Critical access hospital, [facility] [address], [place], [place], [address], [place] tel:[phone] Page Difficulty in walking, not elsewhere classifiedOth er chronic pain 2 Uribe Lynette. [address] [place], [place], [address], [place]. tel:[phone] Critical access hospital, [address] [facility] [address], [place], [place], [address], [place] tel:[phone] Page No Information 2 Raffaele Kaden. [address] [place], [place], [address], [place]. tel:[phone] Critical access hospital, [address] [facility] [address], [place], [place], [address], [place] tel:[phone] Page Difficulty in walking, not elsewhere classifiedOth er chronic pain 2 Uribe Lynette. [address] [place] [address], [id number], [place]. tel:[phone] Critical access hospital, [address] [facility] [address], [place], [place], [id number], [place] tel:[phone] Page Muscle weakness (generalized) Jun- 2 Ren Ruelas. [address] [place], [place], [address], [place]. tel:[phone] Critical access hospital, [address], [place], [place], [address], [place] tel:[phone] Page Difficulty in walking, not elsewhere classifiedOth er chronic painMuscle weakness (generalized) Oct-09 24- 2 Uribe Lynette. [address] [place], [place], [id number], [place]. tel:[phone] Critical access hospital, [address], [place], [place], [address], [place] tel:[phone] Page Chronic bilateral low back pain, unspecified whether sciatica presentOther chronic pain Oct-09 22- 2 Baldemar Landrum. [address] [place], [place], [address], [place]. tel:[phone] Critical access hospital, [address] [facility] [address] Former[facility] named [facility], [place], [place], [address], [place] tel:[phone] Page Difficulty in walking, not elsewhere classifiedOth er chronic pain Oct-0 2 Uribe Lynette. [address] [place], [place], [address], [place]. tel:[phone] Critical access hospital, [address] [place] [address], [id number], [place] tel:[phone] Page Other chronic painMuscle weakness (generalized) Oct-0 3- 2 Uribe Lynette. [address] [place], [place], [address], [place]. tel:[phone] Critical access hospital, [address], [address], [place] tel:[phone] Page Chronic bilateral low back pain, unspecified whether sciatica presentOther chronic painPain of both shoulder jointsPain in left shoulder Sep-2 2 Ren Webbah. [address] [place], [address], [place]. tel:[phone] Critical access hospital, [facility] [address] [facility], [place], [place], [address], [place] tel:[phone] Page Other chronic pain Sep-2 2 Jojo Ojeda. [address] [place] [address], [place], [place], [address], [place]. tel:[phone] Critical access hospital, 1 [facility] [address] Former[facility] named [facility], [place], [place], [address], [place] tel:[phone] Page Muscle weakness (generalized) Sep-2 6 2 Ren Jessenia. [address] [place], [place], [address], [place]. tel:[phone] Critical [facility] hospital, [facility], [place], [place], [address], [place] tel:[phone] Page Muscle weakness (generalized) Sep-2 2 2 Ren Jessenia. [address] [place], [place], [address], [place]. tel:[phone] Critical [facility] hospital, [facility], [place], [place], [address], [place] tel:[phone] Page Chronic midline low back pain, unspecified whether sciatica presentOther chronic pain Sep-2 0- 2 Baldemar Landrum. [address] [place], [place], [address], [place]. tel:[phone] OFFICE/OUTPA TIENT VISIT EST Critical [facility] hospital, [facility], [place], [place], [address], [place] tel:[phone] Page OV (chief complaint) ÓSCAR (generalized anxiety disorder) Sep-2 0 2 Pedro Luis Crystal. [address] [place], [place], [address], [place]. tel:[phone] Critical access hospital, 1 [facility] [address] Former[facility] named [facility], [place], [place], [address], [place] tel:[phone] Page Chronic midline low back pain, unspecified whether sciatica presentOther chronic pain Sep-1 6-202 2 Baldemar Landrum. [address], [place], [place], [address], [place]. tel:[phone] Critical access hospital, [address], [place], [place], [address], [place] tel:[phone] Page Muscle weakness (generalized) Mild cognitive impairment, so stated Sep-1 2 Ren Jessenia. [address], [place], [place], [address], [place]. tel:[phone] Critical access hospital, [facility] [address] [facility], [place], [place], [address], [place] tel:[phone] Page No Information Sep-1 2 Pedro Luis Bonilla. [address], [place], [place], [address], [place]. tel:[phone] Critical access hospital, [facility] [address], [place], [place], [address], [place] tel:[phone] Page No Information Sep-0 2 Pedro Luis Crystal. [address] [facility] [address], [place], [place], [address], [place]. tel:[phone] Critical access hospital, [address] [facility] [address] [facility], [place], [place], [address], [place] tel:[phone] Page Encounter for rehabilitatio n evaluationChr onic bilateral low back pain without sciaticaOther chronic pain Sep-0 2 Baldemar Landrum. [address], [place], [place], [address], [place]. tel:[phone] Critical access hospital, [facility] [address], [place], [place], [address], [place] tel:[phone] Page Muscle weakness (generalized) Sep-0 2 Ren Jessenia. [address], [place], [place], [address], [place]. tel:[phone] Critical access hospital, [address], [place], [place], [address], [place] tel:[phone] Page No Information 2 Pedro Luis Crystal. [address], [place], [place], [address], [place]. tel:[phone] Critical access hospital, [address], [place], [place], [address], [place] tel:[phone] Page Encounter for rehabilitatio n evaluationMus debbie weakness (generalized) 2 Ren Ruelas. [address], [place], [place], [address], [place]. tel:[phone] Critical access hospital, [address], [place], [place], [address], [place] tel:[phone] Page Encounter for nutritional assessment 2 Waldemar Delagdo. [address] [facility] [address], [place], [address]. tel:[phone] Critical access hospital, [address], [place], [place], [address], [place] tel:[phone] Page Encounter for rehabilitatio n evaluation 2 Ren Jessenia. [address], [place], [place], [address], [place]. tel:[phone] [facility] hospital, [address], [place], [place], [id number], [place] tel:[phone] Page Encounter for rehabilitatio n evaluation 2 Baldemar Landrum. [address], [place], [place], [id number], [place]. tel:[phone] [facility] access hospital, [address], [place], [place], [id number], [place] tel:[phone] Page Herpesviral vesicular dermatitis 2 Pedro Luis Crystal. [address], [place], [place], [id number], [place]. tel:[phone] Critical access hospital, [address] Formerly named [facility], [place], [place], [id number], [place] tel:[phone] Page Encounter for general adult medical examination without abnormal findingsJoy stauffercara (primary) hypertension 2 Pedro Luis Crystal. [address] [place], [id number], [place]. tel:[phone] OFFICE/OUTPA TIENT VISIT NEW Critical access hospital, [address] Formerly named [facility], [place], [place], [id number], [place] tel:[phone] Page PEE (chief complaint) Hypertension, unspecified typeHyperchol esteremiaDM type 2 with diabetic peripheral neuropathyLon g term (current) use of insulinGastro esophageal reflux disease, unspecified whether esophagitis presentGenita l herpes simplex, unspecified siteBipolar 1 disorderHypot hyroidism, unspecified typeGAD (generalized anxiety disorder)Schi zophrenia, unspecified typeTremor 2 Pedro Luis Crystal. [address] [place], [id number], [place]. tel:[phone] Critical access hospital, [address] Formerly named [facility], [place], [place], [id number], [place] tel:[phone] Page Hypertension, unspecified typeHyperchol esteremiaDM type 2 with diabetic peripheral neuropathyHyp othyroidism, unspecified typeHerpesvir al infection, unspecified 2 Dorothea Day. [address] [place], [place], [id number], [place]. tel:[phone] Critical access hospital, [address] [address], [place], [place], [id number], [place] tel:[phone] Page Medication course changed 2 Dorothea Day. [address] [place], [place], [id number], [place]. tel:[phone] Critical access hospital, [address] [address], [place], [place], [id number], [place] tel:[phone] Page No Information 2 Raffaele Alfonso. [address] [place], [place], [id number], [place]. tel:[phone] Critical access hospital, [address] [address], [place], [place], [id number], [place] tel:[phone] Page Intake (chief complaint) Encounter for general adult medical examination without abnormal findings 2 Raffaele Alfonso. [address] [place], [place], [id number], [place]. tel:[phone] Family History Family Member Type Diagnosis Age At Onset No Information Immunizations Vaccine Date Status Comments Fluzone Quad administered Formerly [facility] e: New Immunization Record Payers Payer name Insurance type Covered democrat ID Socrates lee(s) [employer] [place] [id number] [employer] [id number] Social History Type Description Quantity Date Captured Comments Sex Female Smoking Status No Information Chief Complaint And Reason For Visit No Information Reason For Referral Reason For Referral No Information Plan Of Treatment Date Type Action Status Referral Ordered: Physical Therapy -Therapies/Rehabilitation (related to Right-sided low back pain with right-sided sciatica, unspecified chronicity) ordered Referral Referred To: Physical Therapy Ordered: Referrals: Therapies/Rehabilitation. Physical Therapy. Consult ordered Referral Ordered: Referrals: [facility] [place] Location: [facility] [place] Appointment date/timeframe: 12/29/2022 ordered Referral Ordered: Referrals: Gynecology Appointment date/timeframe: 07/31/2022 ordered Referral Referred To: Bonilla ARCINIEGA [address] [place], [place], [phone] Ordered: Referrals: Internal Medicine. Bonilla ARCINIEGA Appointment date/timeframe: 05/13/2023 ordered Referral Referred To: Bonilla ARCINIEGA [address] [place], [place], [phone] Ordered: Referrals: Cardiology. Bonilla ARCINIEGA Appointment date/timeframe: 10/21/2022 ordered Referral Referred To: [facility] [address] [facility] [place] [place], [phone] Ordered: Referrals: Rheumatology. Bonilla ARCINIEGA Appointment date/timeframe: 04/16/2023 ordered Referral Referred To: Bonilla ARCINIEGA [address] [facility] [place], [phone] Ordered: Referrals: Dentistry. Bonilla ARCINIEGA Appointment date/timeframe: 12/17/2022 ordered Referral Referred To: Bonilla ARCINIEGA [address] [facility] [place], [place], [phone] Ordered: Referrals: Podiatry. Bonilla ARCINIEGA ordered Referral Referred To: Bonilla ARCINIEGA [address] [place], [place], [phone] Ordered: Referrals: Gastroenterology. Bonilla ARCINIEGA Appointment date/timeframe: 04/09/2023 ordered Referral Referred To: Bonilla ARCINIEGA [address] [place], [place], [phone] Ordered: Referrals: Special Certificate Dictator. Bonilla ARCINIEGA ordered Referral Ordered: Referrals: Gynecology. Consult Appointment date/timeframe: 04/30/2022 ordered Future Order: Radiology Order Hi p X-ray; Unilateral, with Pelvis X-ray (2-3 views) ([id number]), Ordered on: Ordered Future Order: Radiology Order TT E Combined, 2D image, spectral Doppler, color flow image ([id number]), Ordered on: Ordered Future Order: Lab Order QUANTIFE KARLEY(R)-TB GOLD PLUS, 1 TUBE ([id number]), Ordered on: Ordered History Of Present Illness [...] good weekend per calls kindly placed by cone classifier tender nursing. Ppt noted to be doing well, [...] and available resources.Ppt seen on request of clinical social work therapist who was concerned ppt may be having a shiraz episode. Ppt was roomed and provider was notified at 1:45pm. Upon entering, ppt was speaking with clinical social work therapist. Translation was kindly provided by environmental compliance officer on site. This provider checked with ppt, who notes she has been having difficulty sleeping, but notes this is a chronic issue. She denies any chest pain, palpitations. She does not recall med changes that occurred per at previous psychiatry visit, these were discussed. At this time, [facility] staff walked in noting ppts ride had arrived for 2pm and there is no ability to delay. This provider was unable to perform further HPI, ROS and had to perform a limited exam.Based on this providers limited exam and the information provided by staff who know her, she appears to be at baseline. Ppt denies SI/HIVM left with ppts prescriber at [facility]. Recommended that ppt come back to see [...] ongoing conservative care. BIPOLAR / ÓSCAR / [facility]IZOPHRENIAH[facility] counseling is still being utilizedSees counseling every thursdayClonazepam, Haldol, Depakote, trazodone [id number] 7.0% -> 7.9 this fall currently using [...] being seen in clinic todayCarries dx of [id number] treated with Humalog SSI and Lantus She [...] age in NAD nontoxic appearingLUNGS ctabHEART rrr (+)[id number] soft NTEXT no edema soft and NT PHV BESSIE INDERJIT RIVER A AHSAN PHVHPIPPt seen in clinic today for PHVShe was seen in the emergency dept No records available prior to visitIt appears she was seen at [place] [facility] for pain yesterday Pain is in [...] Bipolar, ÓSCAR, SchizophreniaHistorically rx by psychiatrist in [place] Currently klonopin, Depakote, Haldol, trazodoneShbettye is a patient at [facility] recently moved into her own apartment She reports she likes it She was reported as having increased anxiety yesterdayLiliy translates Ppt reports she feels better today vs yesterday Yesterday she had palpitations None since thenThese happen from xoxl-bg-rkccVITALS HR - 8202 - 96RR - 18BP - 142/80ROSno N V F C CP SOBno ABD PAIN diarrheano cough or difficulty swallowingno rashno palpitations todayPEFemale appearing her ageSpeaks South African translated by [place] RNNADMood stableAffect mildly distrustingSpeaks fluidly Answers are appropriateHEART RRR (+)[id number] CTABExt with trace pedal edema bilaterallyNontoxic appearing LABSDPA - 50.7 TSH - 1.94 PEE HPI_62 ___ year old ___female__[place] with sisterMedications reviewedDiagnoses reviewed Hospitalizations - no significant BIPOLAR/SCHIZOPHRENIA/ÓSCAR counseling/therapy once a weekrx by psychiatrist in [place] hasn't met with a prescriber heremodd affect stable no symptoms nowHLDReports she was on a medication but her doctor took it awayThey "never gave it back Would be agreeable to starting againTHYROIDLast labs were normal so her PCP took it awayCurrently her labs are normalShe does not want to restart unless she has ydL6NKHgxlbt 48u SC JEANINE Lea reports no hospitalizations 2nd to [id number] opto referral and podiatry referralDenies any wounds [...] apparently last year. She was residing in [place]. She had a number of hospitalizations and there was a tentative plan to place her in long-term care however, her niece and sister intervened and brought her to [place].The patient initially lived with her niece however that did not quite taylor out and she is now living in a studio apartment in [place] with her Sister Nicky. There are pending applications for either a 2 bedroom apartment for the 2 of them to live together or a 1 bedroom for the prospect to live and with the sister living in the same complex. At this point, sister assists her with all necessities. There is a tentative plan for 25.5 hours from [facility] however this has not started or been finalized, per the niece.Community physicians currently: Primary CARE: [phone]:Dr. Torito OrellanaPage podiatry [phone]:[facility] Nydia Muhammad[address] [place], [place] [phone] as psychiatrist however, is PhD psychologist, I am not sure who is prescribing psychiatric medicationsTimi Ibrahim, PhDAcadia [phone]: Mary Jalloh/[phone]:[facility]. [facility] qvnjgvindewtn21 [facility]. [phone]:Jaz [address] Streetgomersuad [phone] listedMedications listedPharmacy listedPast medical history and past surgical history listed, apparently had labial cyst or the like in the past and it is recurrent1 of the hospitalizations in [place] has dementia listed as a contributory diagnosis, I am unclear if this is correctRecent hospitalizations:8205/11-05/23/21: [facility], seemingly psychiatric10/09/21-10/16/21:[facility]-danger to self, schizophrenia, dementia10/18/21-11/13/21: [facility], lactic acidosis, flank pain, shortness of breath, seemingly followed by a psychiatric admission12/02/21-12/17/21 [facility]:Delusions/hallucinations/disorientationPa risa uses a 4 wheeled walker. She is [...] is and how this would be addressed Functional Status Date Functional Assessmen t No Information Instructions Date Instruction Additional Infor chava bilateral [...] appears to be at baseline. Noted that [facility] Counseling reduced her clonazepam to day, discontinued haloperidol and started amitriptyline. Discussion with SW after meeting, noting that the primary medicare interviewer (cyndi) would like to stop the amitriptyline, given concern for changes in altered mental status.This provider recommended to halve for 7 days and then discontinue. This was relayed by clinical social work therapist.Safety questions were completed with ppt, denying any SI/HI, notes her depression/anxiety is stable. Feels safe to go home and to follow up on Thursday Related to Bipolar 1 disorder debrox in SE program [id number] as needed canal still patent - ppt concerned and wanted tx Related to Excessive cerumen in left ear canal not tremulousness on exammonitor for EPS/tremors given use of psychoactive medsno changes at this timere-eval as needed Related to Tremor no edema todaycont e levationre-eval as needed Related to Edema, unspecified type levothyoroxine stopp ed in sep 11 bean [...] insulinself dcd CGM - using POCs at [id number] fasting this [facility] referrals to opto and poda1c and labs t odaytitrate up trulicity if neededeval ongoing Related to Type 2 diabetes mellitus without complication, with long-term current use of insulin lantus and humalog see T2DM Rela quentin to oysterman current use of insulin cont STATINlipid taylor el today eval ongoing Related to Hypercholesteremia continue norvasc, ze stril, HCTZtrend routine labs and vitalsadjust mgmt as neededvitals checked during SE program and remain stable Related to Hypertension, unspecified type cont [facility] and mood at baseline cont current medication regimen (see Bipolar)eval ongoing Related to ÓSCAR (generalized anxiety disorder) mood affect stablefo llowed by [facility] Counselingcont haldol, depakote and prn klonopineval ongoing Related to Schizophrenia, unspecified type mood affect stablefo llowed by [facility] CounselingEKG this week forp Qtc cont haldol, [...] and humalog see T2DM Rela quentin to oysterman (current) use of insulin a1C 7.0% -> 7.9curre ntly using lantus 48u SC QD and humalog SSiwill add trulicity to be admin @ programtitrate up as neededcont to trend sugars [facility] periph neuropathy:ppt followed by podiatry - no cnew concerns or complaints from ppteval ongoing Related to DM type 2 with diabetic peripheral neuropathy ppt seen in ED For s eliseo and hip painsans traumaxrays were normal per [...] NADpt will have appt made today at [facility]ing by dexter is agreeable to this [...] questions or concerns regarding psych dxfollowed by [facility] Counselingmsg left for info on upcoming appt and name of prescriberEKG pending tomorrow for Haldol use and baseline QTcdepakote lvl wnl @ 50.4cont haldol, depakote and prn klonopineval ongoing Related to ÓSCAR (generalized anxiety disorder) mood affect stablept has no questions or concerns regarding psych dxfollowed by [facility] Counselingmsg left for info on upcoming appt and name of prescriberEKG pending tomorrow for Haldol use and baseline QTcdepakote lvl wnl @ 50.4cont haldol, depakote and prn klonopineval ongoing Related to Schizophrenia, unspecified type mood affect stablept has no questions or concerns regarding psych dxfollowed by [facility] Counselingmsg left for info on upcoming appt and name of prescriberEKG pending tomorrow for Haldol use and baseline QTcdepakote lvl wnl @ 50.4cont haldol, depakote and prn klonopineval ongoing Related to Bipolar 1 disorder chronic dxfollowed b y GYNtakes antiviral for flare upsno pain or lesions at this timeno questions or concernsre-eval as neededfollowup DIRECTOR OF CULTURE consult summary as indicated Related to Genital herpes simplex, unspecified site no symptomsabd exam benigntaking PPI for GI ppx with good effectre-eval as needed Related to Gastroesophageal reflux disease, unspecified whether esophagitis present 04/25/22a1C 7.0%BUN/Cr -- 0.88/74currently using lantus 48u SC QDwill trend CMP and z3qJfwis as needed for hypoglycemiafoot exam with decrease in monofilament examotherwise foot exam wnlwill consult podiatry, optometry eval ongoing Related to DM type 2 with diabetic peripheral neuropathy 04/25/22a1C 7.0%BUN/Cr -- 0.88/74currently using lantus 48u SC QDwill trend CMP and u3vQfhmn as needed for hypoglycemiafoot exam with decrease in monofilament examotherwise foot exam wnlwill consult podiatry, optometry eval ongoing Related to oysterman (current) use of insulin 04/25/22AST/ALT 8/10 ( [...] Goal Continued Bessie is at risk for halfway placement related to schizophrenia and bipolar I d/x . Bessie will continue to live in the community environment with support from [facility] and family for 6 months. Patient Goal Entered in error Bessie is at risk for halfway placement related to schizophrenia and bipolar I [...] communication related to language barrier- patient is South African speaking Bessie will continue to function in her current environment, have her medical needs met, and maintain current level of social interactions through next review. Patient Goal Continued Patient Care Teams Name Effective Dates (start - stop) Status Members No Information
[2024-10-31 12:32] LABS: Microalbumin Urine < 5.0 mg/L
[2024-10-31 12:35] LABS: Alanine Aminotransferase 9 U/L (0-31); Albumin Level 3.8 g/dL (3.5-5.0); Alkaline Phosphatase 70 U/L (39-117); Anion Gap 12 (12-20); Aspartate Amino Transferase 16 U/L (5-31); Bilirubin Total 0.4 mg/dL (0.0-1.0); Blood Urea Nitrogen 20 mg/dL (9-16); Calcium 9.3 mg/dL (8.4-10.2); Carbon Dioxide 30 mmol/L (22-29); Chloride 104 mmol/L (96-108); Cholesterol 155 mg/dL (<200); Estimated Glomerular Filt Rate > 60; Glucose Fasting 69 mg/dL (60-99); HDL Cholesterol 77 mg/dL (>40); LDL Cholesterol Calculated 69 mg/dL (<100); Potassium 4.1 mmol/L (3.3-5.1); Sodium 142 mmol/L (135-145); Total Protein 6.8 g/dL (6.5-8.0); Triglycerides 48 mg/dL (<150)
[2024-10-31 12:48] LABS: Vitamin D 25-OH Total 57.3 ng/mL (>30)
== END 2024-10-31 11:02 | disposition home or self-care (01) ==
LOC: HO.LAB 11:01
PROVIDERS: PCP Internal Medicine; Visit Provider Student in an Organized Health Care Education/Training Program
DX: Z13.89 Encounter for screening for other disorder (principal)
CPT/HCPCS: 36415; 80053; 80061; 82306; 82570

== ENCOUNTER → 2024-11-22 08:15 | Outpatient (REF) | payer OTHER, SELFPAY ==
--- NOTE | ~2024-11-22 | NM_ITS ---
Lexiscan Myocardial perfusion study Indication: Chest pain to evaluate for myocardial ischemia Technique: The patient was brought in for a Lexiscan perfusion study on November 22, 2024 and was injected 0.4 mg of Lexiscan intravenously. Within a minute of this injection 25 mCi of sestamibi was given intravenously. Images were obtained using the SPECT gamma camera interlaced with the gating device. Images were obtained in supine position. Resting perfusion study was performed on November 23, 2024. Patient was administered 25 mCi of sestamibi intravenously at rest. Images were then obtained in supine position. Images obtained without without CT attenuation. Total DLP 165 mGy-cm. Images were processed with the software and compared side to side in short axis, horizontal long axis and vertical long axis views. Findings: The stress perfusion study showed nonattenuated images show normal uptake of radiotracer in all segments of the LV myocardium. Attenuated corrected images show mildly reduced uptake in the anterior and moderately reduced uptake in the apex of the LV myocardium. The gated study shows normal LV systolic function with calculated LVEF of 55%. LV cavity is normal in size. The gated study shows normal systolic wall thickening and contraction of segments. Resting study shows nontender images show mildly reduced uptake in the septum of the LV myocardium. Attenuated corrected images show no change in perfusion pattern compared to stress perfusion study. Gating at rest reveals normal systolic wall motion with ejection fraction at 59%. The findings are consistent with no clear reversible. Likely normal myocardial perfusion. NM/NM cardiolite stress test Impression: 1. Myocardial perfusion imaging study shows likely normal myocardial perfusion 2. Gated LVEF is 55% 3. Transient ischemic dilatation not present Nondiagnostic changes on EKG. Electronically signed by: Shola Avila MD 11/24/2024 11:06 AM [facility]
--- NOTE | 2024-11-22 08:19 | CA_ITS ---
Acquisition Time: 2024-11-22 08:24:03 Total Exercise Time: 00:02:00 Test Indications: cp, abn ekg Medications: see h&p Protocol: LEXISCAN Max HR: 113 BPM 72% of Pred: 155 BPM Max BP: 122/78 mmHG Max Work Load: 1.0 METS Pharmacological stress test with Lexiscan while pt swings her legs in chair, with reports of SOB, without any arrythmias, with normotensive response to injection. Nondiagnostic EKG for ischemia. In recovery, pt treated with IVP Aminophylline 75 mg to reverse Lexiscan, after which pt feeling back to baseline. Nuclear images pending. Test reviewed with Dr. Avila. Referred By: Radha Barry Electronically Signed By: John Paul Gallegos
--- OUTSIDE RECORDS SUMMARY | 2024-11-22 08:34 | XMS_ITS | Data Portability ---
Author Organization [facility], autoContract Address [address] [place] [address] Assessment No assessment recorded. Plan of Treatment Reminders Order Date Submit Date Provider Last Modified By Organization Details Last Modified Time Details Appointments None recorded. Lab None recorded. Referral None recorded. Procedures None recorded. Surgeries None recorded. Imaging None recorded. Medication Orders ammonium lactate 12 % lotion [address] [facility][id number], [address] [facility], [place], [address], 15:37:21 Patient TargetsNo targets recorded. Patient Instructions Encounter Date Encounter Id Patient Instructions Last Modified By Organization Details Last Modified Time 10/18/2020 [id number] 1.) Office visit with DM foot exam [...] regular follow up evaluation by PCP and/or vocational evaluator. 6.) Return 3 months for DM check up and comprehensive foot care, sooner if problems. Not available 10/18/2020 12:32:14 01/28/2021 [id number] 1.) Office visit with DM foot exam [...] regular follow up evaluation by PCP and/or vocational evaluator. 6.) Return 3 months for DM check up and comprehensive foot care, sooner if problems. Not available 01/28/2021 15:01:30 02/18/2021 [id number] Warranty/Receipt New shoe break-in period Wear your [...] PRN basis. Not available 10/18/2021 09:50:05 05/06/2021 [id number] 1.) Office visit with DM foot exam [...] regular follow up evaluation by PCP and/or vocational evaluator. 6.) Return 3 months for DM check up and comprehensive foot care, sooner if problems. Not available 05/07/2021 08:22:47 08/09/2021 [id number] dedo en martillo : instrucciones de cuidado [...] regular follow up evaluation by PCP and/or vocational evaluator. 6.) Return 3 months for DM check up and comprehensive foot care, sooner if problems. I am prescribin. 1 Left and 1 Right - [employer] Medley S325-1 Black, Hook & Loop depth-inlay [...] Address Organization Details Recorded Time Diabetes mellitus 07817842 Active Min Rogers DPM [address] [place], [address], [email or web address] 5 12:50:43 Disorder o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 mellitus 561691995 Active 2017 Min Rogers DPM [address] [place], [place], [address] [place] [address] 7, [email or web address] 8 13:27:17 Overweight 067254475 Active 2019 Min Rogers DPM [address] [place], [address], [facility] 0 17:15:07 Uncontrolle d type 2 diabetes mellitus 616787820 Completed 01/21/2018 Min Rogers DPM [address] [place], [place], [address] [place] [address] 7, [facility] 8 13:27:22 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 165822020 Active Min Rogers DPM [address], [place], [address] [place] [address] 7, [email or web address] 5 12:39:04 Ingrowing nail 806043327 Active Min Rogers DPM [address] [place], [address], [facility] 5 12:39:04 Edema 064489287 Active Min Rogers DPM [address] [place], [address], [email or web address] 5 13:32:56 Peripheral venous insufficien cy 26368193 Active Min Rogers DPM [address] [place], [place], [address] [place] [address] 7, [facility] 5 13:32:56 Pain in limb 57816803 Active Min Rogers DPM [address] [place], [address], [facility] - [facility] 5 12:39:04 Hammer toe 898219941 Active Min Rogers DPM [address] [place], [address], [facility] 5 12:50:43 Acquired cavus deformity of foot 70460012 Active Min Rogers DPM [address] [place], [address], [facility] 5 12:50:43 Problem Notes None recorded. Procedures Surgical History Date Name Laterality Status Provider Name and Address Organization Details Recorded Time 1 Nail Debridement completed Min Rogers DPM [address] [place], [address], [facility] 08/09/2021 15:47:04 1 Nail Debridement completed Min Rogers DPM [address] [place], [address], [email or web address] 05/07/2021 08:22:47 1 Nail Debridement completed Min Rogers DPM [address] [place], [address], [facility] 01/28/2021 15:00:03 1 Nail Debridement completed Min Rogers DPM [address] [place], [address], [facility] 10/18/2020 12:32:14 0 Nail Debridement completed Min Rogers DPM [address] [place], [address], [facility] 07/16/2020 12:25:52 0 Nail Debridement completed Min Rogers DPM [address] [place], [address], [facility] - [facility] 04/12/2020 11:12:51 0 Nail Debridement completed Min Rogers DPM [address] [place], [address], [facility] 01/26/2020 15:11:05 0 Nail Debridement completed Min Rogers DPM [address] [place], [address], [facility] 10/31/2019 09:07:59 9 Nail Debridement completed Min Rogers DPM [address] [place], [address], [facility] 08/26/2019 16:10:32 9 Cortisone Injection completed Min Rogers DPM [address] [place], [address], [facility] 06/09/2019 08:55:55 9 Nail Debridement completed Min Rogers DPM [address] [place], [address], [facility] 06/09/2019 09:15:28 9 Nail Debridement completed Min Rogers DPM [address] [place], [address], [facility] 03/10/2019 13:36:34 9 Nail Debridement completed Min Rogers DPM [address] [place], [address], [facility] 12/28/2018 09:42:50 9 Nail Debridement completed Min Rogers DPM [address] [place], [address], [facility] 10/19/2018 13:15:54 8 Cortisone Injection completed Min Rogers DPM [address] [place], [address], [facility] 07/29/2018 11:08:29 8 Nail Debridement completed Min Rogers DPM [address] [facility], [place], [address], [facility] 07/29/2018 13:09:03 8 Nail Debridement completed Min Rogers DPM [address] [facility], [place], [address], [facility] 05/13/2018 10:01:58 8 Nail Debridement completed Min Rogers DPM [address] [place], [address], [facility] 03/04/2018 09:31:43 8 Nail Debridement completed Min Rogers DPM [address] [place], [address], [facility] 11/26/2017 14:37:36 5 Nail Debridement completed Min Rogers DPM [address] [place], [address], [facility] 02/01/2015 12:39:04 5 Nail Debridement completed Min Rogers DPM [address] [facility], [place], [address], [facility] 10/31/2014 13:32:39 4 Nail Debridement completed Min Rogers DPM [address] [place], [address], [facility] 08/03/2014 10:36:36 4 Nail Debridement completed Min Rogers DPM [address] [place], [address], [facility] 05/11/2014 10:36:07 4 Nail Debridement completed Min Rogers DPM [address] [place], [address], [facility] 02/20/2014 09:20:10 4 Nail Debridement completed Gregor Mckeon [facility] 12/07/2013 17:55:59 3 Nail Debridement completed [facility] 08/15/2013 18:15:52 3 Nail Debridement completed Min Rogers DPM [address] [place], [address], [facility] 05/08/2013 13:57:00 3 Nail Debridement completed Min Rogers DPM [address] [place], [address], [facility] 02/03/2013 13:55:58 3 Nail Debridement completed Min Rogers DPM [address] [place], [address], [facility] 11/15/2012 12:39:57 Imaging Results None recorded. Procedure Notes None recorded. Medical Equipment None Reported. Allergies Allergen ID Allergen Name Allergen Category Reaction Reaction Severity Criticality Documentation Date Start Date Code Code System Note Provider Name and Address Organization Details Recorded Time 921 Product containin g penicilli n (product) medicatio n Not available Not available Not available 10/14/2012 27453 8001 SNOMED [facility] 3 15:13:05 Medications Name Sig Start Date [...] Ult-Fine II 1 mL 31 gauge x 5/ active Not Available Not Available Not Available BD Ultra-Fine Short Pen Needle 31 gauge x 5/16 1 MISC 5 TIMES A DAY active [...] Available Not Available No t Available FreeStyle Norris Lite kit active Not Available Not Available [...] Last Updated DateTime 10/18/2020 157.48 cm Min Rogers, SEDRICKM [address] [place], [address], [facility] [employer] 10/18/2020 11:14:48 Date Recorded Body height Provider Name an d Address Organization Details Last Updated DateTime 01/28/2021 157.48 cm Min Rogers, DPM [address] [place], [address], [place] [employer] 01/28/2021 14:38:33 Date Recorded Body height Provider Name an d Address Organization Details Last Updated DateTime 05/06/2021 157.48 cm Min Rogers, DPM [address] [place], [address], [facility] [facility] 05/06/2021 16:15:17 Date Recorded Body height Provider Name an d Address Organization Details Last Updated DateTime 08/09/2021 157.48 cm Min Rogers, DPM [address] [place], [address], [place] [employer] [facility] 08/09/2021 15:31:11 Date Recorded Body height Provider Name an d Address Organization Details Last Updated DateTime 02/18/2021 157.48 cm Min Rogers, DPM [address] [place], [address], [facility] [employer] 10/18/2021 09:42:13 Social History Question Answer Notes LastModified by Organizat ion Details LastModified Time Tobacco Smoking Status Never Smoker Not Available [employer] 07/06/2020 03:15:47 What Is Your Level Of Alcohol Consumption? None [id number] Information not available 07/06/2020 Are You Blind Or Do You Have Difficulty Seeing? No [id number] Information not available 07/06/2020 Are You Deaf Or Do You Have Serious Difficulty Hearing? No [id number] Information not available 07/06/2020 Which Illicit Or Recreational Drugs Have You Used? Never [id number] Information not available 07/06/2020 What Is Your Occupation? Disabled - Mental Illness [id number] Information not available 07/06/2020 Marital Status sbsrinivas Informwillo n not available 10/17/2012 What Was The Date Of Your Most Recent Tobacco Screening? 12/28/2018 [id number] Information not available 07/06/2020 Sex: Unknown Functional Status Question Answer Note LastModified by Organization D etails LastModified Time Do you have difficulty walking or climbing stairs? No [id number] Information not available 07/06/2020 Do you have difficulty doing errands alone? No [id number] Information not available 07/06/2020 Do you have difficulty dressing or bathing? No [id number] Information not available 07/06/2020 Mental Status Question Answer Note LastModified by Organization D etails LastModified Time Do you have difficulty concentrating, remembering or making decisions? No [id number] Information no t available 07/06/2020 Family History Nothing Reported. Medical History Condition Response Venous Insufficiency Y Diabetes II Y Edema Y Mental Illness Y Obesity Y Numbness Tingling Y High Cholesterol Y Foot Deformity Y Hypertension Y Gynecological HistoryNo gynecological history recorded. Obstetrics History GPAL:G 0 P 0 0 0 0 Past Encounters Encounter ID Performer Location Encounter Start Date Encounter Closed Date Diagnosis/Indication Diagnosis SNOMED-CT Code Diagnosis ICD10 Code Diagnosis Note [id number] Min Rogers DPM [facility] [address] [place] [address] 10/14/2012 15:09:24 10/18/2012 09:39:25 [id number] Min Rogers DPM [facility] [place] [address] 11/11/2012 13:38:31 11/15/2012 16:52:19 [id number] Min Rogers [facility] [address] [place] [address] 02/03/2013 13:22:42 02/03/2013 14:21:55 [id number] Min Rogers [facility] [address] [place] [address] 05/06/2013 13:22:19 05/06/2013 13:57:43 [id number] iMn Rogers [facility] [address] [place] [address] 08/15/2013 10:36:55 08/15/2013 11:25:59 Uncontrolled type 2 diabetes mellitus 369615413 Ingrowing nail 298552493 Pain in limb 74785533 Onychomyco sis due to dermatophyte 666805972 Peripheral venous insufficiency 86022305 Edema 160614632 Acquired c avus deformity of foot 02859880 Hammer toe 614375693 [id number] [facility] [address] [place] [address] 10/05/2013 11:52:21 10/05/2013 12:01:29 Uncontrolled type 2 diabetes mellitus 675807988 Hammer toe 033123004 [id number] Min Rogers [facility] [address] [address] 12/07/2013 12:16:56 12/07/2013 12:42:09 Uncontrolled type 2 diabetes mellitus 386388974 Hammer toe 146366975 Onychomyco sis due to dermatophyte 467821344 Pain in limb 02102371 Ingrowing nail 950518867 [id number] Min Rogers [facility] [address] [place] [address] 02/16/2014 09:54:34 02/16/2014 10:32:43 Onychomycosis due to dermatophyte 047673522 Ingrowing nail 247381285 Pain in limb 92680229 Diabetes mellitus 48974308 Peripheral venous insufficiency 78304873 Edema 004415667 Acquired c avus deformity of foot 89641272 Hammer toe 509049356 [id number] Min Rogers DPM [facility] [address] [address] 05/11/2014 10:23:52 05/11/2014 10:24:21 Onychomycosis due to dermatophyte 584568452 Ingrowing nail 190238150 Pain in limb 22527373 Diabetes mellitus 27897567 Peripheral venous insufficiency 71598717 Edema 275206220 Acquired c avus deformity of foot 72471972 Hammer toe 509777958 [id number] Min Rogers DPM [facility] [address] [address] 08/03/2014 09:27:24 08/03/2014 10:21:02 Onychomycosis due to dermatophyte 605635075 Ingrowing nail 629081794 Pain in limb 72494548 Diabetes mellitus 39587256 Peripheral venous insufficiency 55088441 Edema 821348586 Acquired c avus deformity of foot 89314880 Hammer toe 030903697 [id number] Min Rogers DPM [facility] [address] [address] 10/27/2014 09:16:37 10/27/2014 10:30:34 Onychomycosis due to dermatophyte 918997979 Ingrowing nail 090331284 Pain in limb 36554911 Diabetes mellitus 56027449 Peripheral venous insufficiency 09317163 Edema 540995182 Acquired c avus deformity of foot 30003850 Hammer toe 509421651 [id number] Min Rogers DPM [facility] [address] [address] 11/02/2014 13:10:07 11/02/2014 13:21:56 Hammer toe 320866646 Acquired c avus deformity of foot 15733820 Uncontroll ed type 2 diabetes mellitus 847163584 [id number] Min Rogers DPM [facility] [address] [address] 11/13/2014 12:15:16 11/13/2014 12:33:38 Acquired cavus deformity of foot 10096890 Diabetes mellitus 83411128 Hammer toe 122976760 [id number] Min Rogers DPM [facility] [address] [place] [address] 01/18/2015 13:54:36 01/18/2015 14:06:52 Onychomycosis due to dermatophyte 746123018 Ingrowing nail 492232667 Pain in limb 59921368 Uncontroll ed type 2 diabetes mellitus 680517649 [id number] Min Rogers DPM [facility] [address] [place] [address] 11/26/2017 10:25:50 11/26/2017 11:21:38 Overweight 518175836 E66.3 Ingrowing nail 500728951 L60.0 Pain in toe 135361675 M7 9.676 Disorder o 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 mellitus 201299859 E11.49 Hammer toe 756204175 M20 .41 M20.42 Onychomycosis 033483699 B35.1 [id number] Min Rogers DPM [facility] [address] [place] [address] 01/21/2018 13:25:31 01/21/2018 13:28:43 Disorder o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 mellitus 063717527 E11.49 Hammer toe 829796748 M20 .41 M20.42 [id number] Min Rogers DPM [facility] [address] [place] [address] 02/17/2018 11:45:01 02/17/2018 12:02:11 Disorder o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 mellitus 555963464 E11.49 Hammer toe 075143515 M20 .41 M20.42 [id number] Min Rogers DPM [facility] [address] [place] [address] 03/04/2018 08:59:26 03/04/2018 09:00:37 Onychomycosis due to dermatophyte 224683262 B35.1 Ingrowing nail 574710807 L60.0 Pain in limb 13168478 M7 9.609 Uncontroll ed type 2 diabetes mellitus 107043421 E11.65 [id number] Min Rogers DPM [facility] [address] [place] [address] 05/13/2018 09:31:40 05/13/2018 09:56:12 Ingrowing nail 657252775 L60.0 Pain in limb 58749713 M7 9.609 Uncontroll ed type 2 diabetes mellitus 807677155 E11.65 Onychomycosis 168531750 B35.1 Obese 905973929 E66.9 [id number] Min Rogers DPM [facility] [address] [place] [address] 07/29/2018 11:05:10 07/29/2018 11:15:42 Arthritis of right subtalar joint 1171487398 6070323 M13.871 Pain of ri ght ankle joint 1786472730 0980317 M25.571 Onychomycosis 177715980 B35.1 Ingrowing nail 432964897 L60.0 Uncontroll ed type 2 diabetes mellitus 842353491 E11.65 Obese 035384418 E66.9 Plantar fasciitis 558135 003 M72.2 Pain in toe 554415287 M7 9.676 [id number] Min Rogers DPM [facility] [address] [place] [address] 08/02/2018 09:02:54 08/02/2018 09:39:55 Foot pain 54442195 M79.671 Arthritis of right subtalar joint 2113666745 2705745 M13.871 Plantar fasciitis 074243 003 M72.2 Onychomycosis 590756527 B35.1 Ingrowing nail 559046175 L60.0 Pain in toe 451691426 M7 9.676 Uncontroll ed type 2 diabetes mellitus 292199105 E11.65 Obese 929118196 E66.9 [id number] Min Rogers DPM [facility] [address] [place] [address] 08/10/2018 11:41:12 08/10/2018 12:40:42 Plantar fasciitis 110933159 M72.2 Foot pain 62383017 M79.6 71 M79.672 [id number] Min Rogers DPM [facility] [address] [place] [address] 10/19/2018 11:14:44 10/19/2018 13:16:01 Onychomycosis 238306912 B35.1 Ingrowing nail 091970159 L60.0 Pain in limb 26801920 M7 9.609 Uncontroll ed type 2 diabetes mellitus 981781359 E11.65 Obese 209265449 E66.9 [id number] Min Rogers DPM [facility] [address] [place] [address] 12/28/2018 08:27:54 12/28/2018 09:22:02 Onychomycosis 532198902 B35.1 Ingrowing nail 551338391 L60.0 Pain in limb 17579480 M7 9.609 Uncontroll ed type 2 diabetes mellitus 304572124 E11.65 Obese 717416004 E66.9 [id number] Min Rogers DPM [facility] [address] [place] [address] 03/10/2019 11:30:47 03/10/2019 12:35:36 Onychomycosis 371873825 B35.1 Ingrowing nail 061482216 L60.0 Pain in limb 84999554 M7 9.609 Uncontroll ed type 2 diabetes mellitus 648029055 E11.65 Obese 418454408 E66.9 [id number] Min Rogers DPM [facility] [address] [place] [address] 06/09/2019 08:31:13 06/09/2019 09:28:11 Onychomycosis 419173083 B35.1 Ingrowing nail 962108404 L60.0 Pain in limb 84621532 M7 9.609 Uncontroll ed type 2 diabetes mellitus 391373638 E11.65 Obese 489519753 E66.9 Osteoarthr itis of subtalar joint 086048303 M19.072 Foot pain 98383077 M79.6 72 [id number] Min Rogers DPM [facility] [address] [place] [address] 08/26/2019 15:57:18 08/26/2019 16:06:24 Overweight 046721747 E66.3 Onychomycosis 183178415 B35.1 Ingrowing nail 583937925 L60.0 Uncontroll ed type 2 diabetes mellitus 061463659 E11.65 Pain in toe 843867396 M7 9.676 [id number] SEDRICK Villavicencio [facility] [address] [place] [address] 10/31/2019 08:53:06 10/31/2019 09:32:13 Onychomycosis 740349546 B35.1 Ingrowing nail 269991766 L60.0 Pain in toe 457279694 M7 9.676 Overweight 474139845 E66 .3 Disorder o 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 mellitus 987083476 E11.49 Hammer toe 935181998 M20 .41 M20.42 [id number] SEDRICK Villavicencio [facility] [address] [place] [address] 12/19/2019 17:27:14 12/19/2019 17:36:09 Disorder o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 mellitus 162395464 E11.49 Hammer toe 079938832 M20 .41 M20.42 [id number] Min Rogers DPM [facility] [address] [place] [address] 01/26/2020 13:22:34 01/26/2020 15:00:52 Onychomycosis 057085986 B35.1 Ingrowing nail 912631729 L60.0 Pain in toe 702288358 M7 9.676 Disorder o 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 mellitus 791419965 E11.49 Hammer toe 165675942 M20 .41 M20.42 Overweight 628631149 E66 .3 [id number] Min Rogers DPM [facility] [address] [place] [address] 04/12/2020 11:04:10 04/12/2020 11:16:03 Onychomycosis 212715728 B35.1 Ingrowing nail 857929209 L60.0 Pain in toe 450893520 M7 9.676 Disorder o 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 mellitus 141872429 E11.49 Hammer toe 617779568 M20 .41 M20.42 Overweight 095369589 E66 .3 [id number] SEDRICK Villavicencio [facility] [address] [place] [address] 7 07/16/2020 12:08:06 07/16/2020 12:20:12 Onychomycosis 322429654 B35.1 Ingrowing nail 113695699 L60.0 Pain in toe 768367585 M7 9.676 Disorder o 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 mellitus 574154364 E11.49 Hammer toe 116128313 M20 .41 M20.42 Overweight 142127117 E66 .3 [id number] Min Rogers DPM [facility] [address] [place] [address] 10/18/2020 11:06:15 10/18/2020 11:53:04 Onychomycosis 064697450 B35.1 Ingrowing nail 635666103 L60.0 Pain in toe 263011578 M7 9.676 Disorder o 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 mellitus 355883396 E11.49 Hammer toe 581734439 M20 .41 M20.42 Overweight 123667972 E66 .3 [id number] SEDRICK Villavicencio [facility] [address] [place] [address] 7 01/28/2021 14:36:07 01/28/2021 14:49:01 Onychomycosis [id number] B35.1 Ingrowing nail [id number] L60.0 Pain in toe 448282601 M7 9.676 Disorder o 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 mellitus 412852071 E11.49 Obesity 381032581 E66.9 92768 Min Rogers DPM [employer] [facility] [employer] [address] [place] [phone] 05/06/2021 16:07:24 05/06/2021 16:26:10 Onychomycosis [id number] B35.1 Ingrowing nail 319571267 L60.0 Pain in toe 503485133 M7 9.676 Disorder o 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 mellitus 605469928 E11.49 Obesity 057752299 E66.9 54562 Min Rogers DPM [employer] [facility] [employer] [address] [place] [phone] 08/09/2021 15:26:42 08/09/2021 15:31:37 Foot callus [id number] L84 Onychomycosis [id number] B35.1 Ingrowing nail 583896781 L60.0 Pain in toe 130057384 M7 9.676 Disorder o 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 mellitus 264068982 E11.49 Obesity 822064106 E66.9 Hammer toe 282729149 M20 .41 M20.42 10129 Min Rogers DPM [facility] [place] [address] [place] [phone] 10/18/2021 09:41:46 10/18/2021 09:52:37 Disorder o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 mellitus 491113543 E11.49 Hammer toe 406366728 M20 .41 M20.42 Health Concerns Section Related [...] (MEDICAID REPLACEMENT - HMO) [facility] Bessie Alfonso [id number] Bessie Alfonso 01/28/2021 1 [employer] - [place] PRIOR TO 2022 (MEDICAID REPLACEMENT - HMO) [facility] Bessie Alfonso [id number] Bessie Alfonso 02/18/2021 1 [employer] - [place] PRIOR TO 2022 (MEDICAID REPLACEMENT - HMO) [facility] Bessie Alfonso [id number] Bessie Alfonso 05/06/2021 1 [employer] Bessie Alfonso [id number] Bessie Alfonso 08/09/2021 1 [employer] Bessie Alfonso [id number] Bessie Alfonso Notes Date Note Type Note [...] symptoms suggestive of coronavirus COVID-19 disease. Min FragosoSTEPHANIE bruce [address] [place], [phone], [facility] 10/18/2020 12:33:21 01/28/2021 text/html Bessie presents f [...] active coronavirus COVID-19 disease (fully vaccinated). Min PachecoMilena Rogers DPM [address] [place], [phone], [facility] 01/28/2021 15:02:07 05/06/2021 text/html Bessie presents f [...] active coronavirus COVID-19 disease (fully vaccinated). Min Roberson STEPHANIE Rogers [address] [place], [phone], [facility] 05/07/2021 08:23:15 08/09/2021 text/html Bessie presents f [...] COVID-19 disease (vaccinated). Min Rogers DPM [address] [place], [phone], [facility] 08/19/2021 12:11:02 OBGyn Episode No OBEpisode recorded.
--- OUTSIDE RECORDS SUMMARY | 2024-11-22 08:35 | XMS_ITS | Clinical Summary ---
Author Organization [address] [facility] Address [address] [place] [address] Phone Care Team Providers Care Ballet Master/Mistress Name Role Phone Evelia Donald MD Primary Care Provider [phone] Allergies Active Allergy Reactions Criticality Noted Date Comments Metformin 10/04/2021 Penicillins Hives 08/07/2010 Shellfish Derived 08/17/2021 Medications omeprazole (PriLOSEC) [address] capsule Take 1 capsule (20 mg total) by mouth 1 (one) time each day. Do not crush or chew. Active liraglutide (Victoza 3-Edward) 0.6 mg/0.1 mL (18 mg/3 mL) injection Inject 1.8 mg under the skin 1 (one) time each day. Active atorvastatin (LIPITOR) 40 mg tablet Take 1 tablet (40 mg total) by mouth at bedtime. Active Glucagon HCl, rDNA, (Glucagon Emergency Kit, human,) 1 mg injection Inject 1 mg into the shoulder, thigh, or buttocks 1 (one) time if needed for low blood sugar. Active lisinopril (PRINIVIL,ZESTR IL) 40 mg tablet Take 0.5 tablets (20 mg total) by mouth 1 (one) time each day. 15 each 1 Active busPIRone (BUSPAR) 30 mg tablet Take 1 tablet (30 mg total) by mouth 3 (three) times a day. Active OLANZapine (ZyPREXA) 7.5 mg tablet Take 1 tablet (7.5 mg total) by mouth at bedtime. Active ammonium lactate (LAC-HYDRIN) 12 % lotion Apply 1 application topically 2 (two) times a day if needed for dry skin. Active aspirin 81 mg chewable tablet Chew 1 tablet (81 mg total) 1 (one) time each day. 4 Active traMADoL (ULTRAM) 50 mg tablet Take 1 tablet (50 mg total) by mouth every 6 hours as needed. Active traZODone (DESYREL) 50 mg tablet Take 1 tablet (50 mg total) by mouth at bedtime. Active insulin aspart (NovoLOG) 100 unit/mL injection Inject under the skin 4 (four) times a day (after meals and nightly). Sliding Scale as follows- 151-175= 1 unit 176-200= 2 units 201-225= 3 units 226-250= 4 units 251-275= 5 units 276-300= 6 units 301-325= 7 units 326-350= 8 units -Administer within 5 minutes of a meal Active Active Problems Problem Noted Date Diagnosed Date Acute abdominal pain in right lower quadrant Chronic bilateral low back pain without sciatica 10/04/2021 Chronic constipation 10/04/2021 Chronic hypertension 10/04/2021 Chronic pain of right ankle 10/04/2021 Contusion of right thigh 10/04/2021 Cough 10/04/2021 Dyspnea 10/04/2021 Elevated liver enzymes 10/04/2021 Encounter for medication refill 10/04/2021 Fatigue 10/04/2021 Glaucoma 10/04/2021 Herpesvirus infection 10/04/2021 Insomnia 10/04/2021 Long-term use of high-risk medication 10/04/2021 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 10/04/2021 Lactic acidosis 10/04/2021 Right-sided chest wall pain 10/04/2021 Recurrent falls 10/04/2021 Pyelonephritis 10/04/2021 Obesity 10/04/2021 Sarcoidosis 10/04/2021 Schizoaffective disorder, de pressive type with good prognostic features 10/04/2021 Sinusitis 10/04/2021 Encounter for immunization 10/04/2021 Tremor 10/04/2021 Altered mental state 08/17/2021 Abdominal pain 08/17/2021 DM type 2 (diabetes mellitus, type 2) 05/21/2021 Overview (10/04/2021): x 15 years Necrotizing soft tissue infection 05/18/2021 Sacroiliac pain 11/28/2020 Lumbar facet arthropathy 08/29/2020 DDD (degenerative disc disease), lumbosacral Gastritis 09/28/2018 Acute psychosis 04/23/2015 Anxiety 04/23/2015 Impetigo 04/23/2015 Esotropia of left eye 06/04/2011 Rotary nystagmus 06/04/2011 Strabismic amblyopia 06/04/2011 Hyperthyroidism 02/19/2011 Mixed hyperlipidemia 02/19/2011 Primary open-angle glaucoma(365.11) 08/22/2010 Overview (12/20/2021): Replacing diagnoses that were inactivated after the 12/20/21 IMO import Senile nuclear sclerosis 08/22/2010 Encounters Date Type Department Care Team Description 11/16/2024 10:45 AM EST Office Visit Orthopedic Surgery - [address] [address] Zeyad Wallace, DPM Diabetic mononeuropathy simplex (CMS/HCC) (Primary Dx); Tinea unguium; Type II diabetes mellitus with peripheral circulatory disorder (CMS/HCC); Acquired hallux valgus of right foot; Acquired hallux valgus of left foot; Corns and callosities; Metatarsalgia of both feet; Pain in toe of left foot; Dermatophytosis of nail; Pain in toe of right foot; Peripheral venous insufficiency from Last 3 Months Immunizations Name Administration Dates Next Due Influenza Quadrivalent, 0.5m l, preservative free (Fluarix; FluLaval; Fluzone) ages 6mo and older (Afluria) 3yo and older 06/24/2021,07/18/2020,07/11/2019,2017 Influenza Whole 06/11/2015 Influenza trivalent, 0.5mL, preservative free (Fluarix; FluLaval; Fluzone) ages 6mo and older (Afluria) 3 years and older 07/03/2017,06/28/2014,09/02/2012 Influenza, Unspecified 07/02/2011 Moderna SARS-CoV-2 COVID-19, mRNA, LNP-S, preservative free 12/24/2020 Pfizer SARS-CoV-2 COVID-19, mRNA, LNP-S, preservative free 06/12/2021 Medical History Medical History Date Comments Schizophrenia ([facility]) Diabetes mellitus ([facility]) Disease of thyroid gland Depression Insomnia Anxiety DDD (degenerative disc disease), cervical Psychosis (CMS/HCC) High blood cholesterol level Social History Tobacco Use Types Packs/Day Years Used Date Smoking Tobacco: Never Smokeless Tobacco: Never Tobacco Cessation:Counseling Given: No Alcohol Use Standard Drinks/Week Comments Yes 0 (1 standard drink = 0.6 oz pur e alcohol) Comments Unknown Sex and Gender Information Value Date Recorded Sex Assigned at Not on file Legal Sex Female 12:18 AM EDT Gender Identity Not on file Sexual Orientation Not on file Obstetrics History Para Term AB IAB SAB Ectopic Multiple Livin g Live Births 0 Last Filed Vital Signs Vital Sign Reading Time Taken Comments Blood Pressure 125/76 10/08/2021 4:30 PM EST Pulse 80 10/08/2021 4:30 PM EST Temperature 36.6 ??C (97.9 ??F) 10/08/2021 8:00 AM ES T Respiratory Rate 16 10/08/2021 4:30 PM EST Oxygen Saturation 99% 10/08/2021 4:30 PM EST Inhaled Oxygen Concentration - - Weight 90.7 kg (200 lb) 11/16/2024 10:39 AM EST Height 157.5 cm (5' 2.01 ) 11/16/2024 10:[address] Body Mass Index 36.57 11/16/2024 10:39 AM EST Plan of Treatment Upcoming Encounters Date Type Department Care Team (Late st Contact Info) Description 02/09/2025 10:45 AM EDT Office Visit Orthopedic Surgery - [place] [address] [phone] Zeyad Wallace, DPM [address] [address] Health Maintenance Due Date Last Done Comments Diabetes: Annual Foot Exam 1969 Diabetes: Annual Retina Eye Exam 1969 DTaP,Tdap,and Td Vaccines (1 - Tdap) 1978 Pneumococcal Vaccine: 50+ Years (1 of 2 - PCV) 1978 Pneumococcal Vaccine: Pediatrics (0 to 5 Years) and At-Risk Patients (6 to 64 Years) (1 of 2 - PCV) 1978 Cervical Cancer Screening: Pap Smear 01/08/1980 Zoster Vaccines (1 of 2) 2009 RSV Immunization Patients 60+ Years Old (1 - Risk 60-74 years 1-dose series) 2019 Cholesterol Screening (Lipid Panel) 10/06/2019 07/28/2012 Depression Screening 10/06/2019 Hepatitis C Screening 10/06/2019 Medicare Annual Wellness Visit 10/06/2019 Osteoporosis Screening (Bone Density Screening) 10/06/2019 Social Influencers of Health Screening 10/06/2019 Diabetes: Annual Urine Albumin-Creatinine Ratio (uACR) 08/17/2021 11/19/2010 Diabetes: Blood Sugar Control Test (HGBA1C) 04/20/2022 10/21/2021, 10/21/2021, 05/21/2021, Additional history exists Breast Cancer Screening 08/21/2022 08/21/20, 03/22/2018, 12/22/2016, Additional history exists Diabetes: Annual GFR (Glomerular Filtration Rate) 11/12/2022 11/12/2021, 11/09/2021, 11/06/2021, Additional history exists Hypertension/CHF/CAD Annual BMP Blood Test 11/12/2022 11/12/2021, 11/09/2021, 11/06/2021, Additional history exists Falls Risk Assessment 01/08/2024 COVID-19 Vaccine ( season) 2024 06/12/2021, 12/24/2020 Colorectal Cancer Screening: Colonoscopy 10/30/2025 10/30/2015, 06/11/2015 Influenza Vaccine Completed 07/11/2024, , 07/18/2020, Additional history exists HIB Vaccines Aged Out No longer eligi [...] to complete this topic RSV Immunization Patients Under 20 months Aged Out No longer eligible based on patient's age to complete this topic Varicella Vaccines Aged Out No longer eligible based on patient's age to complete this topic Procedures Procedure Name Priority Date/Time Associated Diagnosis Comments COMPREHENSIVE METABOLIC PANEL STAT 10/04/2021 8:28 PM EST [facility] MAMMO DIGITAL SCREENING BILAT (NB) Routine 08/21/2020 10:11 AM EST from Last 3 Months or Most Recently Relevant to Health Maintenance Results * (ABNORMAL) Comprehensive metabolic panel (10/04/2021 8:28 PM EST) Sodium 137 136 - 145 mmol/L LAB CHEMISTRY METHOD 10/04/2021 9:58 PM [facility] Potassium 3.8 3.6 - 5.1 mmol/L LAB CHEMISTRY METHOD 10/04/2021 9:58 PM EST [facility] Chloride 98 98 - 107 mmol/L LAB CHEMISTRY METHOD 10/04/2021 9:58 PM EST [facility] CO2 25 22 - 32 mmol/L LAB CHEMISTRY METHOD 10/04/2021 9:58 PM EST [facility] Anion Gap 14 6 - 18 LAB CHEMISTRY METHOD 10/04/2021 9:58 PM EST [facility] Glucose 369(H) 70 - 99 mg/dL LAB CHEMISTRY METHOD 10/04/2021 9:58 PM EST [facility] BUN 21(H) 8 - 20 mg/dL LAB CHEMISTRY METHOD 10/04/2021 9:58 PM [facility] Creatinine 1.08 0.60 - 1.30 mg/dL LAB CHEMISTRY METHOD 10/04/2021 9:58 PM [facility] eGFR 55 mL/min/1. 73m2 LAB CHEMISTRY METHOD 10/04/2021 9:58 PM [facility] BUN/Creatinine Ratio 19.4 12.0 - 20.0 LAB CHEMISTRY METHOD 10/04/2021 9:58 PM [facility] Calcium 9.4 8.9 - 10.3 mg/dL LAB CHEMISTRY METHOD 10/04/2021 9:58 PM [facility] AST (SGOT) 8(L) 15 - 41 unit/L LAB CHEMISTRY METHOD 10/04/2021 9:58 PM [facility] ALT (SGPT) 14 7 - 52 unit/L LAB CHEMISTRY METHOD 10/04/2021 9:58 PM [facility] Alkaline Phosphatase 106(H) 32 - 91 unit/L LAB CHEMISTRY METHOD 10/04/2021 9:58 PM [facility] Total Protein 6.9 6.1 - 7.9 g/dL LAB CHEMISTRY METHOD 10/04/2021 9:58 PM [facility] Albumin 4.2 3.5 - 4.8 g/dL LAB CHEMISTRY METHOD 10/04/2021 9:58 PM [facility] Total Bilirubin 0.4 0.3 - 1.2 mg/dL LAB CHEMISTRY METHOD 10/04/2021 9:58 PM [facility] Blood Venous blood specimen / Unknown Venipuncture / Unknown 10/04/2021 8:28 PM EST 10/04/2021 8:33 PM EST Neeta Bae MD LAB BLOOD ORDERABLES Final Resu lt LUIS ENRIQUE ARRIOLA [facility] ([facility] [address] [place] [address] * OTIS MAMMO DIGITAL SCREENING BILAT (NB) (08/21/2020 10:11 AM EST) Anatomical Region Laterality Modality Mammography 08/21/2020 10:1 1 AM EST Narrative 08/22/2020 7:12 AM EST EXAMINATION TYPE: OTIS Mammo Digital Screening bilat (NB) DATE OF EXAM : 08/21/2020 10:11 AM PATIENT HISTORY: Menarche at age 12. First Full-Term at age 18. Postmenopausal. PRIOR STUDIES: 03/15/2013, 10/25/2014, 11/05/2015, 12/22/2016, 03/22/2018 REASON FOR STUDY: Breast Screening. TECHNIQUE: Digital mammography views were obtained. Computer-aided detection utilizing The Film Co[employer] reader has been performed. BREAST COMPOSITION: There are scattered areas of fibroglandular density FINDINGS: There are no suspicious abnormalities. There has been no significant interval change. IMPRESSION: No mammographic evidence for malignancy. BI-RADS Code: 1-Negative RECOMMENDATION: 1. Screening Mammogram in 1 year COMMENTS: Results of this examination will be immediately mailed to the patient. Luis Enrique Arriola thanks you for the opportunity to care for your patient. Workstation ID: [id number] ? FINAL REPORT Dictated By: ??Dulce Lane MD ??08/22/2020 07:11 Assigned Physician: ??Dulce Lane MD Reviewed and Electronically Signed By: ??Dulce Lane MD ??08/22/2020 07:12 Transcribed by: ??[facility] ??08/22/2020 07:11 Technologist: ??YH Procedure Note Dulce Lane MD - 04/12/2021 EXAMINATION TYPE: OTIS Mammo Digital Screening bilat (NB) DATE OF EXAM : 08/21/2020 10:11 AM PATIENT HISTORY: Menarche at age 12. First Full-Term at age 18.Postmenopausal. PRIOR STUDIES: 03/15/2013, 10/25/2014, 11/05/2015, 12/22/2016,03/22/2018 REASON FOR STUDY: Breast Screening. TECHNIQUE: Digital mammography views were obtained. Computer-aideddetection utilizing The Film CoCAD reader has been performed. BREAST COMPOSITION: There are scattered areas of fibroglandular density FINDINGS: There are no suspicious abnormalities. There has been no significantinterval change. IMPRESSION: No mammographic evidence for malignancy. BI-RADS Code: 1-Negative RECOMMENDATION: 1. Screening Mammogram in 1 year COMMENTS: Results of this examination will be immediately mailed to thepatient. Luis Enrique Arriola thanks you for the opportunity to care for your patient. Workstation ID: [id number] FINALREPORT Dictated By: Dulce Lane MD 08/22/2020 07:11 Assigned Physician: Dulce Lane MD Reviewed and Electronically Signed By: Dulce Lane MD 08/22/2020 07:12 Transcribed by: DISHA 08/22/2020 07:11 Technologist: MAR us Gladis Blair MD IMG BI PROCEDURES Final Resu lt from Last 3 Months or Most Recently Relevant to Health Maintenance Insurance [place] - [place] [facility] Advance Directives * Full Code - Default (Latest Code Status on File) Date Activated Date Inactivated Comments 08/17/2021 10:01 PM 08/26/2021 8:35 PM This is o rder is used when code status has not been discussed with the patient, or code status is otherwise unknown/unconfirmed To update the patient's code status, place a code status order. Do not modify or discontinue any currently active code status orders. * Full Code - Default Date Activated Date Inactivated Comments 08/17/2021 4:58 PM 08/17/2021 10:01 PM This is o rder is used when code status has not been discussed with the patient, or code status is otherwise unknown/unconfirmed To update the patient's code status, place a code status order. Do not modify or discontinue any currently active code status orders. Care Teams Ballet Master/Mistress Relationship Specialty Start Date End Date Evelia Donald MD [address], [address] [facility] D/B/A: [facility] OTIS De Oliveira PCP - General Internal Medicine 08/30/24
--- OUTSIDE RECORDS SUMMARY | 2024-11-22 08:35 | XMS_ITS | Encounter Summary ---
Author Organization [facility] Address [address] [place] [address] Care Team Providers Care Development Officer Name Role Phone Evelia Donald MD Primary Care Provider [phone] Reason for Visit * Reason Comments Consult NPV-nail fungus * Consultation (Routine) - Closed Specialty Diagnoses / Procedures Referred By Contact Referred To Contact Podiatry / Orthopaedic Surgery Diagnoses Tinea unguium Evelia Donald MD [address] [place] [address] [address], [address] [facility] D/B/A: [facility] [place], [place] Phone: tel: fax: Zeyad Wallace DPM [address] [address] Phone: tel: fax: Referral ID Status Reason Start Date Expiration Date V isits Requested Visits Authorized [id number] Closed Specialty Services Required 08/30/2024 08/30/2025 1 1 Encounter Details Date Type Department Care Team (Late st Contact Info) Description 11/16/2024 10:45 AM EST Office Visit Orthopedic Surgery - [facility] [address] [phone] Zeyad Wallace DPM [address] [address] Diabetic mononeuropathy simplex (CMS/HCC) (Primary Dx); Tinea unguium; Type II diabetes mellitus with peripheral circulatory disorder (CMS/HCC); Acquired hallux valgus of right foot; Acquired hallux valgus of left foot; Corns and callosities; Metatarsalgia of both feet; Pain in toe of left foot; Dermatophytosis of nail; Pain in toe of right foot; Peripheral venous insufficiency Social History Tobacco Use Types Packs/Day Years Used Date Smoking Tobacco: Never Assessed Comments Unknown Sex and Gender Information Value Date Recorded Sex Assigned at Not on file Legal Sex Female 12:18 AM EDT Gender Identity Not on file Sexual Orientation Not on file documented as of this encounter Last Filed Vital Signs Vital Sign Reading Time Taken Comments Blood Pressure - - Pulse - - Temperature - - Respiratory Rate - - Oxygen Saturation - - Inhaled Oxygen Concentration - - Weight 90.7 kg (200 lb) 11/16/2024 10:39 AM EST Height 157.5 cm (5' 2.01 ) 11/16/2024 10:[address] Body Mass Index 36.57 11/16/2024 10:39 AM EST documented in this encounter Progress Notes * Zeyad Wallace DPM - 11/16/2024 10:45 AM EST Last PCP visit:Referring MD: Evelia Donald MD 02/08/2024 IDENTIFIER: Avila is a 64 y.o. year old female who presents for consultation. CC: Foot pain HPI: Patient presents today with her daughter present she reports she has numbness burning tingling to her feet she is type II diabetic she has lots of swelling of both lower extremities does report that she is along the painful thickened nails thick skin makes difficult for her to walk she is to see Dr. Saleem who recently passed she states that she does occasion get itchy numbness and tingling worsening burning sensation both feet she has that occasionally her toes seem to return clerk in her feet throb ache with pain discomfort is a 7 out of 10 on a visual analog scale ROS: GENERAL: Pt denies nausea, fever, vomiting, chills, or shortness of breath. Pt in NAD. CARDIOLOGY: pt denies chest pain, palpitations LUNGS: pt denies shortness of breath MUSCULOSKELETAL: See HPI, otherwise no joint pain or swelling, back pain, or muscle pain. SKIN: see HPI, otherwise no lesions, rash or itching NEURO: No persistent headache, weakness or numbness The remainder of the review of systems is noncontributory PAST MEDICAL HISTORY: Patient Active Problem List Diagnosis Altered mental state Abdominal pain Acute abdominal pain in right lower quadrant Acute psychosis (CMS/HCC) Anxiety Chronic bilateral low back pain without sciatica Chronic constipation Chronic hypertension Chronic pain of right ankle Contusion of right thigh Cough DDD (degenerative disc disease), lumbosacral DM type 2 (diabetes mellitus, type 2) (CMS/HCC) Dyspnea Elevated liver enzymes Encounter for medication refill Esotropia of left eye Fatigue Gastritis Glaucoma Herpesvirus infection Hyperthyroidism Impetigo Insomnia Necrotizing soft tissue infection Mixed hyperlipidemia Lumbar facet arthropathy Long-term use of high-risk medication 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 (CMS/HCC) Lactic acidosis Sacroiliac pain Rotary nystagmus Right-sided chest wall pain Recurrent falls Pyelonephritis Primary open-angle glaucoma(365.11) Obesity Sarcoidosis Schizoaffective disorder, depressive type with good prognostic features (CMS/HCC) Senile nuclear sclerosis Sinusitis Encounter for immunization Strabismic amblyopia Tremor SOCIAL HISTORY: Social History Tobacco Use Smoking status: Never Smokeless tobacco: Never Substance Use Topics Alcohol use: Yes ACTIVE MEDICATIONS: Outpatient Medications Marked as Taking for the 11/16/24 encounter (Office Visit) with Zeyad Dorado DPM Medication Sig Dispense Refill ammonium lactate (LAC-HYDRIN) 12 % lotion Apply 1 application topically 2 (two) times a day if needed for dry skin. aspirin 81 mg chewable tablet Chew 1 tablet (81 mg total) 1 (one) time each day. atorvastatin (LIPITOR) 40 mg tablet Take 1 tablet (40 mg total) by mouth at bedtime. busPIRone (BUSPAR) 30 mg tablet Take 1 tablet (30 mg total) by mouth 3 (three) times a day. Glucagon HCl, rDNA, (Glucagon Emergency Kit, human,) 1 mg injection Inject 1 mg into the shoulder, thigh, or buttocks 1 (one) time if needed for low blood sugar. insulin aspart (NovoLOG) 100 unit/mL injection Inject under the skin 4 (four) times a day (after meals and nightly). Sliding Scale as follows- 151-175= 1 unit 176-200= 2 units 201-225= 3 units 226-250= 4 units 251-275= 5 units 276-300= 6 units 301-325= 7 units 326-350= 8 units -Administer within 5 minutes of a meal liraglutide (Victoza 3-Edward) 0.6 mg/0.1 mL (18 mg/3 mL) injection Inject 1.8 mg under the skin 1 (one) time each day. OLANZapine (ZyPREXA) 7.5 mg tablet Take 1 tablet (7.5 mg total) by mouth at bedtime. omeprazole (PriLOSEC) [address] capsule Take 1 capsule (20 mg total) by mouth 1 (one) time each day.Do not crush or chew. traMADoL (ULTRAM) 50 mg tablet Take 1 tablet (50 mg total) by mouth every 6 hours as needed. traZODone (DESYREL) 50 mg tablet Take 1 tablet (50 mg total) by mouth at bedtime. ALLERGIES: Allergies Allergen Reactions Metformin Penicillins Hives Shellfish Derived PHYSICAL EXAM: Visit Vitals Ht 1.575 m (62.01 ) Wt 90.7 kg (200 lb) BMI 36.57 kg/m?? Smoking Status Never BSA 1.91 m?? PODIATRIC EXAMINATION: GENERAL: Patient appears well nourished, with NAD. VASCULAR: Dorsalis pedis pulses are 0/4 bilaterally and Posterior tibial pulses are 0/4 bilaterally. Capillary filling time within normal limits the digits. No pallor on elevation or rubor on dependency. No varicosities. Denies rest pain or claudication pain. NEUROLOGICAL: Sharp/dull sensation absent , protective sensation 0/10 with 5.07 semmes kristopher bilaterally, vibratory sensation with tuning fork intact to the tibial tuberosity. ORTHOPEDIC: Good muscle strength 5/5 of all flexors and extensors. Dorsi flexion of ankle ,10 degrees, plantar flexion WNL. No muscle atrophy. DERMATOLOGICAL:. Hyperkeratotic tissue subfirst metatarsal bilaterally Toenails: Left Toenail(s) 1-5: Crumbling upon debridement, subungual debris, discoloration, dystrophy, elongation, mycotic appearance, onychomycosis, pain and thickening. Right Toenail(s) 1-5: Crumbling upon debridement, subungual debris, discoloration, dystrophy, elongation, mycotic appearance, onychomycosis, pain and thickening. Annular scaling bilateral feet moccasin distribution Skin thinning texture shiny appearance diffuse hyperpigmentation bilaterally pedal hair decreased BIOMECHANICS: Ankle ROM WNL, STJ ROM wnl, MTJ ROM wnl, 1st MPJ ROM mild bunion deformity bilateral. IMAGING: IMPRESSION: 1. Diabetic mononeuropathy simplex (CMS/HCC) 2. Tinea unguium 3. Type II diabetes mellitus with peripheral circulatory disorder (CMS/HCC) 4. Acquired hallux valgus of right foot 5. Acquired hallux valgus of left foot 6. Corns and callosities 7. Metatarsalgia of both feet 8. Pain in toe of left foot 9. Dermatophytosis of nail 10. Pain in toe of right foot 11. Peripheral venous insufficiency PLAN: Pt was seen and examined, history reviewed. Discussed with patient regarding proper glucose control, exercise, and diet. Explained to patient proper shoe gear, and importance of daily foot checks. I reviewed neuropathy and why it occurs in diabetics. I educated the patient on proper blood sugar control and the importance of an HgBA1c of less than 7.0%. I reviewed the signs and symptoms of neuropathy with the patient Pt to return for another evaluation in 3 months. Debridement of mycotic toenails 6-10: Verbal informed consent was obtained from the patient. Greater than 6 nails were aseptically debrided in thickness and length with nail nippers Hyperkeratotic tissue debrided pared with a number #15 scalpel blade x2 Zeyad Wallace DPM documented in this encounter Plan of Treatment Upcoming Encounters Date Type Department Care Team (Late st Contact Info) Description 02/09/2025 10:45 AM EDT Office Visit Orthopedic Surgery - [facility] [address] [phone] Zeyad Wallace DPM [address] [address] documented as of this encounter Visit Diagnoses Diagnosis Diabetic mononeuropathy simplex (CMS/HCC)- Primary Type II or unspecified type diabetes mellitus with neurological manifestations, not stated as uncontrolled Tinea unguium Dermatophytosis of nail Type II diabetes mellitus with peripheral circulatory disorder (CMS/[facility]) Type II or unspecified type diabetes mellitus with peripheral circulatory disorders, not stated as uncontrolled Acquired hallux valgus of right foot Acquired hallux valgus of left foot Corns and callosities Metatarsalgia of both feet Pain in toe of left foot Pain in soft tissues of limb Dermatophytosis of nail Pain in toe of right foot Pain in soft tissues of limb Peripheral venous insufficiency Unspecified venous (peripheral) insufficiency documented in this encounter Orders Outpatient Referral Count Last Ordered Date Fir st Ordered Date AMB REFERRAL TO PODIATRY 1 11/16/2024 documented in this encounter Care Teams Development Officer Relationship Specialty Start Date End Date Evelia Donald MD [address] [facility] , [address] [facility] D[facility]A: [facility] OTIS De Oliveira PCP - General Internal Medicine 08/30/24 documented as of this encounter
== END ==
LOC: HO.CARD 08:15
PROVIDERS: PCP Internal Medicine; Visit Provider Nurse Practitioner Family
DX: R07.89 Other chest pain (principal); E78.00 Pure hypercholesterolemia, unspecified; I10 Essential (primary) hypertension; R60.0 Localized edema
CPT/HCPCS: 78452; 93017; A9500; J0280; J2785

== ENCOUNTER → 2024-11-22 08:19 | Outpatient (BNV) | payer OTHER, SELFPAY | PROVIDERS: PCP Internal Medicine | DX: R06.02 Shortness of breath (principal) | CPT/HCPCS: 78452; 93016; 93018 ==

== ENCOUNTER 2024-11-24 08:42 | Outpatient (AMB) | payer OTHER, SELFPAY ==
--- NOTE | 2024-11-24 08:48 | A.OFFVIS_ITS ---
Intake Visit Reasons: 6m/PVR Intake Note: Patient presents for follow up visit for urinary frequency Urology Medications: Tolterodine Blood Thinner: none PVR: 38ml's Dry Folder Cloth Required: Yes Dry Folder Cloth Services: Dry Folder Cloth Present Dry Folder Cloth Name: [id number] Accompanied by: Self / Same As Patient Allergies Penicillins Allergy (Intermediate, Verified 11/24/24 09:20) rash/swelling shellfish derived Allergy (Intermediate, Verified 11/24/24 09:20) Swelling, Hives Medication List - Last Reconciled 11/24/24 by ROB Herrera acetaminophen 500 mg PO Q6H PRN 30 days acyclovir 400 mg PO TID 30 days amitriptyline 10 mg PO BEDTIME 90 days amlodipine 2.5 mg (1/2 x 5 mg) PO DAILY 90 days atorvastatin 10 mg PO DAILY 90 days blood sugar diagnostic (FreeStyle Test strips) As directed Twice a day blood-glucose meter (FreeStyle Lite Meter kit) As directed blood-glucose meter (BringMeTheNews Autocode Meter kit) As directed divalproex ER 1,000 mg (2 x 500 mg) PO BEDTIME 90 days dulaglutide (Trulicity) 1.5 mg (0.5 mL) subcut QWEEK 30 days furosemide 40 mg PO DAILY insulin aspart U-100 (Novolog FlexPen U-100 Insulin aspart) 10 units (0.1 mL) subcut TID 90 days insulin glargine (Lantus Solostar U-100 Insulin) 48 units (0.48 mL) subcut DAILY 90 days lancets (BringMeTheNews Lancets) Use 1 lancet four times a day lisinopril 40 mg (2 x 20 mg) PO DAILY 90 days miscellaneous medical supply Grab bars for shower miscellaneous; omeprazole 20 mg PO DAILY pen needle, diabetic (1st Tier Unifine Pentips) Use 1 pen needle three times a day ropinirole 0.5 mg (2 x 0.25 mg) PO BID 90 days sennosides-docusate sodium 8.6-50 mg (Senna with Docusate Sodium) 1 tab-cap PO BEDTIME 60 days tolterodine ER 2 mg PO DAILY 90 days trazodone 100 mg PO BEDTIME walker As directed HPI Comments Details: Bessie is a very pleasant 64 year old Cambodian-speaking female patient of Dr. Soni. She has a past medical history of osteoporosis, diabetes, hypertension, removal blood clot from her brain in 2011, cancer of the left breast in 2006, hypercholesteremia, herpes simplex virus 2, arthritis, rheumatic fever at the age of [age] years old, schizophrenia, GERD, depression, and hyperlipidemia. She presents to the office today for follow-up. In discussion with the patient today she reports to be doing and feeling well. She reports to be happy with current voiding parameters on 2 mg of tolterodine. She reports significant improvement in nocturia, urinary frequency, and urinary urgency. Previous workup has included a retroperitoneal ultrasound 09/12 noting bilateral kidneys with no calculi, lesions, and or hydronephrosis. The bladder is well distended and normal. Bilateral ureteral jets are not demonstrated. Prevoid bladder volume is approximately 200 mL. Postvoid bladder volume is 20ml's. Unremarkable examination. She otherwise denies incontinence, hematuria, dysuria, foul smelling urine, changes to urinary stream, flank pain, fever, and or chills. She is happy with her current voiding parameters on tolterodine 2 mg daily. She reports at times when she attempts to hold her urine she feels lower abdominal pain and pressure. We discussed healthy bathroom behaviors. She has a previous history of a bladder suspension in [place]. We discussed affects of diabetes in lower urinary tract symptoms as well as on the bladder. In office urinalysis results reviewed with the patient today. PVR 36 ml's. She otherwise offers no other issues or concerns at this time. [facility] Medical History Osteoporosis Hypertension History of blood clot in brain Hypercholesteremia HSV-2 (herpes simplex virus 2) infection Arthritis Rheumatic fever Schizophrenia GERD (gastroesophageal reflux disease) Depression HTN (hypertension) Hyperlipemia Diabetes Surgical History Hx of colonoscopy History of tubal ligation History of cystostomy History of 2 sections Family History Sister Age: 63 Osteoarthritis Mother Cancer of lymphatic and hematopoietic tissue, Onset Age: 83 COVID-19 Father FH: heart attack Brother FH: heart attack Other Diabetes HTN (hypertension) Mental health disorder Social History Household Members: Family Household Members Other:: sister Housing: Apartment Do you presently have visiting nurse or other home services: No Alcohol intake: never Patient Tobacco Use Status: Never used Tobacco e-Cigarette/Vaping Use: Never Used Second Hand Smoke Exposure: No Advance Directives Date on File: 12/05/21 service: No Current occupational status: disabled Sexual orientation: Straight/Heterosexual Gender identity: Female Cognitive needs: Yes (walker) Hearing needs: No Vision needs: Yes (glasses) Female Reproductive History Menstrual Age of Menarche: 12 Review of Systems Const Reports as per HPI Eyes Reports no additional complaints ENT Reports no additional complaints Card Reports as per HPI Resp Reports no additional complaints GI Reports as per HPI Reports as per HPI Neuro Reports as per HPI Psych Reports as per HPI Endo Reports as per HPI Physical Exam Const General: cooperative, healthy appearing, comfortable, no acute distress, well developed, alert and awake Orientation/consciousness: patient oriented x3 Limitations: language barrier HEENT Head: Yes normal to inspection, Yes normocephalic and Yes atraumatic Ears: hearing grossly normal bilaterally Eyes General: appearance normal, both eyes and all related structures Neck Neck: Yes normal visual inspection and Yes trachea midline Chest Chest palpation & inspection: normal inspection of the chest Resp Effort & Inspection: normal respiratory effort and able to speak in complete sentences Cardio Rate: regular rate GI Inspection: Yes normal to inspection General: Yes no CVA tenderness Back/Spine/Pelvis Back: no CVA tenderness Skin General skin exam: no rashes or lesions noted Neuro General: patient oriented x3 Extrem General: Yes normal to inspection Psych Appearance: grossly normal and well kempt Mental Status: mental status grossly normal Speech and movement: Normal speech and movement present and Clear speech present Affect: normal affect Attitude: cooperative Thought process: Normal thought process present Thought content: Normal thought content present Insight: Fair insight present (Psych) Judgement: Fair judgement present (Psych) Office Procedures Post Void Residual Post Residual Void Post Void Residual (PVR): 38 [id number]-Nlmd Void Residual by ultrasound Results AMB Urinalysis, Automated UA Leukoctes 0 [place]/uL Last Edit by Seema Kim on 11/24/24 09:38 UA Nitrite Last Edit by Seema Kim on 11/24/24 09:38 UA Urobilinogen 0.2 mg/dL Last Edit by Seema Kim on 11/24/24 09:38 UA Protein 0 mg/dL Last Edit by Bo[employer]ian [employer] Kim on 11/24/24 09:38 UA pH 6.5 Last Edit by [employer] on 11/24/24 09:38 UA Blood 0 Randall/uL Last Edit by Tequila [employer]bet[employer] Kim on 11/24/24 09:38 UA Specific [place] 1.010 Last Edit by Seema Kim on 11/24/24 09:38 UA Ketone Last Edit by T[employer]ila [employer] Kim on 11/24/24 09:38 UA Bilirubin 0 mg/dL Last Edit by Bohemian G[employer] Kim on 11/24/24 09:38 UA Glucose 0 mg/dL Last Edit by Tequila [employer] Kim on 11/24/24 09:38 Results Reviewed Results Reviewed: Laboratory Last Values Urine pH (Auto) 6.5 11/24/24 09:36 Specific [place] (Auto) 1.010 11/24/24 09:36 Urine Protein (Auto) 0 mg/dL 11/24/24 09:36 Glucose (UA)(Auto) 0 mg/dL 11/24/24 09:36 Urine Blood (Auto) 0 Randall/uL 11/24/24 09:36 Urine Bilirubin (Auto) 0 mg/dL 11/24/24 09:36 Urine Urobilinogen (Auto) 0.2 mg/dL 11/24/24 09:36 Leukocyte Esterase (Auto) 0 [place]/uL 11/24/24 09:36 Assessment & Plan Assessment & Plan (1) Urinary incontinence, urge: Code(s): N39.41 - Urge incontinence Category: Medical (2) Lower urinary tract symptoms: Code(s): R39.9 - Unspecified symptoms and signs involving the genitourinary system Category: Medical (3) Urinary frequency: Comment: With urgency Code(s): R35.0 - Frequency of micturition Category: Medical Plan In office urinalysis results reviewed with the patient today; as noted above. PVR 36 mL. Continue tolterodine 2 mg daily as discussed and prescribed. Patient reports to be happy with current voiding parameters with 2 mg of tolterodine daily; refill prescription provided. Discussed at length importance of managing diabetes for improvement in lower urinary tract symptoms as well as overall health and well-being. Discussed bladder triggers/irritants. Discussed possible near future in office cystoscopy and or urodynamics if symptoms arise for further assessment evaluation. Follow-up in 6 months with PVR; or sooner with any issues, concerns, and or questions. Orders: Orders AMB Urinalysis Automated Today Z13.9 - Encounter for screening, unspecified AMB Post Void Residual by ultrasound Today N39.41 - Urge incontinence Patient Instructions: The patient had an opportunity to ask questions regarding the treatment plan. All questions were answered. Physical exam, labs, and imaging were discussed and reviewed in detail. As well as risks, benefits, and discussion of treatment choices. No major barriers to understanding were identified. The patient expressed understanding and agreement with the above treatment plan. The patient was made aware they should contact our office by phone for worsening of their current condition, the appearance of new symptoms, or with any questions or concerns. Compliance is encouraged with any medications and follow up testing that is ordered. It is a privilege to be allowed the opportunity to participate in? your urological care.? Again, if you have any questions or concerns If you have any questions or concerns please do not hesitate to contact me. The office is [phone]. This note is constructed using voice recognition software. While every effort has been made to ensure accuracy tax investigator errors may have been included. Yours sincerely, ROB Herrera Coding Level of Care Code Est Pt Level 3 (28639) Complex EM visit Add On G2211 Diagnoses Urinary incontinence, urge N39.41 Lower urinary tract symptoms R39.9 Urinary frequency R35.0 CPT Codes Post Residual Void - PVR CPT Code: 24101-Jrum Void Residual by ultrasound ([id number])
--- OUTSIDE RECORDS SUMMARY | 2024-11-24 09:16 | XMS_ITS | Continuity of Care Document ---
Author Organization [facility] Address [address] [facility] [address] [place] [address] Phone Care Team Providers Care Manager Materials Management Name Role Phone Blaise FREEMAN, Ujjwala Unavailable [...] THE SKIN ONCE EVERY WEEK. DELIVER TO [place] - Active acetaminophen ER 650 mg tablet,extended [...] Active clonazepam 0.5 mg tablet RX BY [facility] -- DO NOT REFILL -- REDUCED IN [...] Active PLEASE DELIVER TO [address] [facility] [place] ELDERCARE pen needle, diabetic 31 gauge x 5/16 use 4 times a day as directed - Active ammonium lactate 12 % topical cream apply to affected area BID - Active Humalog U-100 Insulin 100 unit/mL subcutaneous solution inject by subcutaneous route pre lunch on per Sliding scale - Active Please send to [place]. Please do not autorefill.\Un julianna 200-no insulin. 201-250-4 units, 251-300-6 units, 301-350-8 units, over 350 inform clinician Natasha Ultra Strength 4 %-30 %-10 % topical cream apply to affrected area up to 3 times a day as directed - Active trazodone 100 mg tablet RX BY [facility] -- DO NOT REFILL -- take 1 tablet by oral route every bedtime - Active acetaminophen 325 mg tablet FOR USE AT DAY PROGRAM -- take 2 tablet by oral route every 4 hours as needed for pain, please do not exceed 2 doses/day at - Active polyethylene glycol 3350 17 gram/dose oral powder FOR USE AT [place] DAY PROGRAM - mix 17g into water [...] Location Reason(s) For Visit Diagnoses Date Provider Formerly [facility], [facility]–1983, [address], [place], [place], [id number], [place] tel:[phone] [place] No Information Sep- 4 Bhagavatula Ujjwala. [address] [place], [place], [id number], [place]. tel:[phone] Formerly [facility], [facility], [address], [place], [place], [id number], [place] tel:[phone] [place] No Information Feb-2 3 Dorothea Barb. [address] [facility] [place], [id number], [place]. tel:[phone] Formerly [facility], [facility]–1983, [address], [place], [place], [id number], [place] tel:[phone] [place] No Information Feb- 3 Bhagavatula Umarlinjwala. [address], [place], [id number], [place]. tel:[phone] Formerly [facility], [facility], [address], [place], [place], [address], [place] tel:[phone] [place] Other chronic pain Feb-0 3 Jojo Ojeda. [address] [place] [address], [id number], [place]. tel:[phone] Formerly [facility], [facility], [address], [place], [place], [address], [place] tel:[phone] [place] Muscle weakness (generalized)Other chronic pain January- 3 Jojo Ojeda. [address] [place], [place], [id number], [place]. tel:[phone] Formerly [facility], [facility], [address], [place], [place], [address], [place] tel:[phone] [place] Other chronic painMuscle weakness (generalized) January- 3 Uribe Lynette. [address] [place], [place], [id number], [place]. tel:[phone] [facility]ly [facility], [facility], [address], [place], [place], [id number], [place] tel:[phone] [place] Other chronic pain January- 3 Uribe Lynette. [address] [place], [place], [id number], [place]. tel:[phone] [facility]ly [facility], [facility], [address], [place], [place], [id number], [place] tel:[phone] Marshall Acute right-sided lo w back pain with right-sided sciatica January- 3 Baldemar Landrum. [address] [place], [place], [address], [place]. tel:[phone] Formerly [facility], [facility], [address] [facility] [address], [place], [place], [address], [place] tel:[phone] Marshall Acute right-sided lo w back pain with right-sided sciatica January-0 3 Baldemar Landrum. [address] [facility] [place], [address], [place]. tel:[phone] Formerly [facility], [facility], [address] [facility] [address], [place], [place], [address], [place] tel:[phone] Marshall Encounter for rehabilitation evaluationAcute right-sided low back pain with right-sided sciatica January-0 3 Baldemar Landrum. [address] [facility] [place], [address], [place]. tel:[phone] Formerly [facility], [facility], [address] [facility] [address], [place], [place], [id number], [place] tel:[phone] Marshall Lower extremity edema (chief complaint) Localized edemaRadicular pain May-0 3 Blaise Nieto. [address] [facility] [place], [address], [place]. tel:[phone] Former[facility], [facility], [address], [place], [place], [address], [place] tel:[phone] Marshall Lumbago with sciatic a, right side 3 Raffaele Kaden. [address], [place], [address], [place]. tel:[phone] [facility], [facility], [address] [facility] [address] [facility], [place], [place], [address], [place] tel:[phone] Marshall No Information 3 Raffaele Kaden. [address], [place], [address], [place]. tel:[phone] [facility], [facility], [address] [facility] [address], [place], [place], [address], [place] tel:[phone] Marshall No Information 3 Raffaele Kaden. [address], [place], [address], [place]. tel:[phone] [facility]ly [facility], [facility], [address] [facility] [address] [facility], [place], [place], [address], [place] tel:[phone] Marshall Encounter for genera l adult medical examination without abnormal findings 3 Pedro Luis Crystal. [address] [place], [place], [address], [place]. tel:[phone] [facility], [facility], [address] [facility] [address] [facility], [place], [place], [address], [place] tel:[phone] Marshall OV (chief complaint) Localized edemaLeg cramps 3 Bhagavatula Ujjwala. [address] [place], [place], [address], [place]. tel:[phone] [facility], [facility], [address] [facility] [address], [place], [place], [address], [place] tel:[phone] Marshall No Information 3 Bhagavatula Ujjwala. [address] [place], [place], [address], [place]. tel:[phone] Former[facility], [facility], [address] [address], [place], [place], [address], [place] tel:[phone] Marshall OV (chief complaint) Bipolar 1 disorder 3 Bhagavatula Ujjwala. [address] [place], [place], [address], [place]. tel:[phone] Formerly [facility], [facility], [address] [address], [place], [place], [address], [place] tel:[phone] Marshall No Information 3 Bhagavatula Ujjwala. [address] [place], [place], [address], [place]. tel:[phone] Former[facility], 1928–[facility], [address] [place] [address], [place], [place], [address], [place] tel:[phone] Marshall No Information 3 Raffaele Alfonso. [address], [place], [id number], [place]. tel:[phone] Former[facility], [facility], [address] [address], [place], [place], [address], [place] tel:[phone] Marshall No Information 0 3 Pedro Luis Crystal. [address] [place], [place], [address], [place]. tel:[phone] [facility], [facility], [facility] [address] [place] [address], [id number], [place] tel:[phone] Marshall RAJENDRA (chief complaint) Bipolar 1 disorderGAD (generalized anxiety disorder)Schizophrenia, unspecified typeHypertension, unspecified typeHypercholesteremiaT ype 2 diabetes mellitus without complication, with long-term current use of insulinLong term current use of insulinHypothyroidism, unspecified typeLong-term current use of injectable noninsulin antidiabetic medicationGastroesophag eal reflux disease without esophagitisEdema, unspecified typeTremorExcessive cerumen in left ear canal 3 Pedro Luis Crystal. [address] [facility] [place], [address], [place]. tel:[phone] [facility], [facility], [address], [place], [place], [address], [place] tel:[phone] Marshall No Information 3 Pedro Luis Crystal. [address] [place], [place], [address], [place]. tel:[phone] Former[facility], [facility], [address], [place], [place], [address], [place] tel:[phone] Marshall Skin excoriation 3 Pedro Luis Crystal. [address], [place], [address], [place]. tel:[phone] [facility], [facility], [address] [facility] [address] [facility], [place], [place], [address], [place] tel:[phone] Marshall Encounter for nutritional assessmentOther obesityDeficiency of other specified nutrient elements 3 Renetta Alvares. [address], [place], [address], [place]. tel:[phone] [facility], [facility], [address] [facility] [address] [facility], [place], [place], [address], [place] tel:[phone] Marshall OV (chief complaint) Left foot pain 3 Pedro Luis Crystal. [address] [place], [place], [address], [place]. tel:[phone] [facility], [facility], [address] [facility] [address] [facility], [place], [place], [address], [place] tel:[phone] [place] No Information 3 Raffaele Alfonso. [address], [place], [address], [place]. tel:[phone] Former[facility], [facility], [address], [place], [place], [address], [place] tel:[phone] Marshall Encounter for rehabilitation evaluationChronic bilateral low back pain, unspecified whether sciatica presentOther chronic painPain of both shoulder jointsPain in left shoulder 2- 3 Ren Ruelas. [address] [place], [place], [address], [place]. tel:[phone] [facility], [facility], [address], [place], [place], [address], [place] tel:[phone] Marshall Other lack of coordinationChronic midline low back pain, unspecified whether sciatica presentOther chronic pain 3 Ren Ruelas. [address] [place], [place], [address], [place]. tel:[phone] Former[facility], [facility], [address], [place], [place], [address], [place] tel:[phone] [place] Other lack of coordination Aug-2 2 Ren Ruelas. [address] [place], [place], [address], [place]. tel:[phone] Former[facility], [facility], [address], [place], [place], [address], [place] tel:[phone] Marshall Other chronic painOt her lack of coordination Aug- 2 Ren Ruelas. [address] [place], [place], [address], [place]. tel:[phone] [facility], [facility], [address], [place], [place], [address], [place] tel:[phone] Marshall Other lack of coordinationChronic bilateral low back pain, unspecified whether sciatica presentOther chronic pain Dec-2 - 2 Ren Ruelas. [address] [place], [place], [address], [place]. tel:[phone] [facility], [facility], [address], [place], [place], [address], [place] tel:[phone] Marshall Muscle weakness (generalized) Dec-2 0-202 2 Ren Jessenia. [address] [place], [place], [address], [place]. tel:[phone] Former[facility], [facility], [address], [place], [place], [address], [place] tel:[phone] Marshall Oropharyngeal dysphagia Dec-1 4-202 2 Caselden Sofiya. [address] [place], [place], [address], [place]. tel:[phone] Former[facility], [facility], [address], [place], [place], [address], [place] tel:[phone] Marshall Other lack of coordination Dec-1 3-202 2 Renbettye Ruelas. [address] [place], [place], [address], [place]. tel:[phone] Former[facility], [facility]–1983, [address], [place], [place], [address], [place] tel:[phone] Marshall Other lack of coordination Dec-0 8- 2 Ren Jessenia. [address], [place], [place], [address], [place]. tel:[phone] Former[facility], [facility], [address], [place], [place], [address], [place] tel:[phone] Marshall Oropharyngeal dysphagia Dec-0 7- 2 Caselden Sofiya. [address], [place], [place], [address], [place]. tel:[phone] Former[facility], [facility]–1983, [address], [place], [place], [address], [place] tel:[phone] Marshall Alteration in performance of activities of daily living Dec-0 6-202 2 Ren Jessenia. [address] [place], [place], [address], [place]. tel:[phone] [facility], [facility]–1983, [address], [place], [place], [address], [place] tel:[phone] Marshall OV (chief complaint) DM type 2 with diabetic peripheral neuropathyLong term (current) use of insulinLong-term (current) use of injectable non-insulin antidiabetic drugs Dec- 2 Pedro Luis Crystal. [address] [place], [place], [address], [place]. tel:[phone] [facility], [facility], [address] [facility] [address], [place], [place], [address], [place] tel:[phone] Marshall Alteration in performance of activities of daily living 2 Ren Ruelas. [address] [place], [place], [address], [place]. 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 [address], [place], [address], [place]. tel:[phone] Former[facility], [facility], [facility], [place], [place], [address], [place] tel:[phone] [place] Encounter for rehabilitation evaluation 2 Ren Ruelas. [address] [place], [place], [address], [place]. tel:[phone] [facility], [facility], [address] [facility] [address], [place], [place], [address], [place] tel:[phone] Marshall Dysphagia, unspecifi ed typeFeeding difficultiesEncounter for nutritional assessment 2 Normile Dia. [address] [place], [place], [address], [place]. tel:[phone] Former[facility], [facility], [address] [facility] [address] [facility], [place], [place], [address], [place] tel:[phone] [place] Other chronic pain 2 Uribe Lynette. [address] [place], [place], [address], [place]. tel:[phone] [facility], [facility], [address], [place], [place], [address], [place] tel:[phone] Marshall PHV (chief complaint) Bilateral shoulder pain, unspecified chronicity 2 Pedro Luis Bonilla. [address] [place], [place], [address], [place]. tel:[phone] [facility], [facility], [address], [place], [place], [address], [place] tel:[phone] [place] Other chronic pain 2 Mcdermott Lucita. [address] [place], [place], [address], [place]. tel:[phone] [facility], [facility], [address] [facility] [address], [place], [place], [address], [place] tel:[phone] Marshall Difficulty in walkin g, not elsewhere classifiedOther chronic pain 2 Uribe Lynette. [address] [place], [place], [address], [place]. tel:[phone] [facility], [facility]–1983, [address] [facility] [address], [place], [place], [address], [place] tel:[phone] [place] No Information 2 Raffaele Alfonso. [address], [place], [address], [place]. tel:[phone] [facility], [facility], [address], [place], [place], [address], [place] tel:[phone] Marshall Difficulty in walkin g, not elsewhere classifiedOther chronic pain 2 Uribe Lynette. [address] [place], [place], [address], [place]. tel:[phone] [facility], [facility], [address], [address], [place] tel:[phone] [place] Muscle weakness (generalized) 2 Ren Ruelas. [address] [place], [place], [address], [place]. tel:[phone] Former[facility], [facility], [address], [place], [place], [address], [place] tel:[phone] Marshall Difficulty in walkin g, not elsewhere classifiedOther chronic painMuscle weakness (generalized) 2 Uribe Lynette. [address], [place], [address], [place]. tel:[phone] [facility], [facility], [address], [place], [place], [address], [place] tel:[phone] Marshall Chronic bilateral lo w back pain, unspecified whether sciatica presentOther chronic pain 2 Baldemar Landrum. [address] [place], [place], [address], [place]. tel:[phone] [facility], [facility], [address] [facility] [address] [place] [address], [id number], [place] tel:[phone] Marshall Difficulty in walkin g, not elsewhere classifiedOther chronic pain 2 Uribe Lynette. [address] [place], [place], [address], [place]. tel:[phone] [facility], [facility]–1983, [address], [place], [place], [address], [place] tel:[phone] Marshall Other chronic painMuscle weakness (generalized) 0 2 Uribe Lynette. [address], [place], [address], [place]. tel:[phone] [facility], [facility], [address], [address], [place] tel:[phone] Marshall Chronic bilateral lo w back pain, unspecified whether sciatica presentOther chronic painPain of both shoulder jointsPain in left shoulder Sep-2 2 Ren Jessenia. [address] [facility] [place], [address], [place]. tel:[phone] [facility], [facility], [address] [facility] [address] [facility], [place], [place], [address], [place] tel:[phone] [place] Other chronic pain Sep-2 2 Jojo Ojeda. [address] [place] [address], [place], [place], [address], [place]. tel:[phone] [facility], [facility]–1983, [address], [place], [place], [address], [place] tel:[phone] Marshall Muscle weakness (generalized) Sep-2 2 Ren Jessenia. [address], [place], [place], [address], [place]. tel:[phone] [facility], [facility], [address] [facility] [address] [facility], [place], [place], [address], [place] tel:[phone] Marshall Muscle weakness (generalized) Sep-2 2 Ren Ruelas. [address] [facility] [place], [address], [place]. tel:[phone] [facility], [facility], [address] [facility] [address] [facility], [place], [place], [address], [place] tel:[phone] Marshall Chronic midline low back pain, unspecified whether sciatica presentOther chronic pain Sep-2 0 2 Baldemar Landrum. [address] [facility] [place], [place], [place], [address], [place]. tel:[phone] [facility], [facility]–1983, [address] [facility] [address] [facility], [place], [place], [address], [place] tel:[phone] Marshall OV (chief complaint) ÓSCAR (generalized anxiety disorder) Sep-2 0 2 Pedro Luis Crystal. [address] [place], [place], [address], [place]. tel:[phone] [facility], [facility]–1983, [address] [facility] [address] [address], [place], [place], [address], [place] tel:[phone] Marshall Chronic midline low back pain, unspecified whether sciatica presentOther chronic pain Sep-1 2 Baldemar Landrum. [address] [facility] [place], [address], [place]. tel:[phone] Formerly [facility], [facility]–1983, [address] [facility] [address] [facility], [place], [place], [address], [place] tel:[phone] Marshall Muscle weakness (generalized)Mild cognitive impairment, so stated Sep-1 2 Ren Jessenia. [address] [facility] [place], [address], [place]. tel:[phone] [facility], [facility], [facility], [place], [place], [address], [place] tel:[phone] Marshall No Information Sep-1 2 Pedro Luis Crystal. [address] [facility] [place], [address], [place]. tel:[phone] [facility], [facility]–1983, [facility], [place], [place], [address], [place] tel:[phone] Marshall No Information Sep-0 2 Pedro Luis Crystal. [address] [place], [place], [address], [place]. tel:[phone] [facility], [facility], [facility], [place], [place], [address], [place] tel:[phone] Marshall Encounter for rehabilitation evaluationChronic bilateral low back pain without sciaticaOther chronic pain Sep-0 8 2 Baldemar Landrum. [address] [facility] [place], [address], [place]. tel:[phone] [facility], [facility]–1983, [address] [facility] [address] [facility], [place], [place], [address], [place] tel:[phone] Marshall Muscle weakness (generalized) Sep-0 2-202 2 Ren Jessenia. [address] [place], [place], [address], [place]. tel:[phone] [facility], [facility]–1983, [address], [place], [place], [address], [place] tel:[phone] Marshall No Information 2 Pedro Luis Crystal. [address], [place], [place], [address], [place]. tel:[phone] [facility], [facility]–1983, [address], [place], [place], [address], [place] tel:[phone] [place] Encounter for rehabilitation evaluationMuscle weakness (generalized) 2 Ren Jessenia. [address], [place], [place], [address], [place]. tel:[phone] [facility], [facility], [address], [place], [place], [address], [place] tel:[phone] Marshall Encounter for nutritional assessment 2 Waldemar Hammera. [address], [place], [address]. tel:[phone] [facility], [facility], [address] [facility] [address], [place], [place], [address], [place] tel:[phone] Marshall Encounter for rehabilitation evaluation 2 Ren Ruelas. [address], [place], [place], [address], [place]. tel:[phone] [facility], [facility], [address], [place], [place], [address], [place] tel:[phone] [place] Encounter for rehabilitation evaluation 2 Baldemar Landrum. [address] [facility] [address], [place], [place], [address], [place]. tel:[phone] [facility], [facility]–1983, [address], [place], [place], [address], [place] tel:[phone] Marshall Herpesviral vesicula r dermatitis 2 Pedro Luis Crystal. [address], [place], [place], [address], [place]. tel:[phone] [facility], [facility], [address] [facility] [address] [facility], [place], [place], [address], [place] tel:[phone] Marshall Encounter for genera l adult medical examination without abnormal findingsEssential (primary) hypertension 2 Pedro Luis Bonilla. [address] [facility] [place], [address], [place]. tel:[phone] [facility], [facility], [address] [facility] [address], [place], [place], [address], [place] tel:[phone] Marshall PEE (chief complaint) Hypertension, unspecified typeHypercholesteremiaD M type 2 with diabetic peripheral neuropathyLong term (current) use of insulinGastroesophageal reflux disease, unspecified whether esophagitis presentGenital herpes simplex, unspecified siteBipolar 1 disorderHypothyroidism, unspecified typeGAD (generalized anxiety disorder)Schizophrenia, unspecified typeTremor 2 Pedro Luis Crystal. [address], [place], [place], [address], [place]. tel:[phone] [facility], [facility], [facility], [place], [place], [address], [place] tel:[phone] Marshall Hypertension, unspecified typeHypercholesteremiaD M type 2 with diabetic peripheral neuropathyHypothyroidis m, unspecified typeHerpesviral infection, unspecified 2 Dorothea Day. [address], [place], [place], [address], [place]. tel:[phone] [facility], [facility], [facility], [place], [place], [address], [place] tel:[phone] Marshall Medication course changed 2 Dorothea Day. [address] [place], [place], [address], [place]. tel:[phone] Formerly [facility], 1928–1983, 1 [facility], [place], [place], [id number], [place] tel:[phone] [place] No Information 2 Raffaele Alfonso. [address] [place], [place], [id number], [place]. tel:[phone] Formerly [facility], [facility], 1 [facility] [address], [place], [place], [id number], [place] tel:[phone] [place] Intake (chief complaint) Encounter for general adult medical examination without abnormal findings 2 Raffaele Alfonso. [address], [place], [id number], [place]. tel:[phone] Family History Family Member Type Diagnosis Age At Onset No Information Immunizations Vaccine Date Status Comments Fluzone Quad administered [facility] e: New Immunization Record Payers Payer name Insurance type Covered libertarian ID Socrates lee(s) [place] [id number] [place] [address] [id number] Social History Type Description Quantity Date Captured Comments Sex Female Smoking Status No Information Chief Complaint And Reason For Visit No Information Plan Of Treatment Date Type Action Status Referral Ordered: Physical Therapy -Therapies/Rehabilitation (related to Right-sided low back pain with right-sided sciatica, unspecified chronicity) ordered Referral Referred To: Physical Therapy Ordered: Referrals: Therapies/Rehabilitation. Physical Therapy. Consult ordered Referral Ordered: Referrals: [facility]- Podiatry Location: [facility] Appointment date/timeframe: 12/29/2022 ordered Referral Ordered: Referrals: Gynecology Appointment date/timeframe: 07/31/2022 ordered Referral Referred To: Bonilla ARCINIEGA [address], [place], [phone] Ordered: Referrals: Internal Medicine. Bonilla ARCINIEGA Appointment date/timeframe: 05/13/2023 ordered Referral Referred To: Bonilla ARCINIEGA [address], [place], [id number] [phone] Ordered: Referrals: Rheumatology. Bonilla ARCINIEGA Appointment date/timeframe: 04/16/2023 ordered Aug-15-2022 Referral Referred To: Bonilla ARCINIEGA [address] [place], [place], [phone] Ordered: Referrals: Cardiology. Bonilla ARCINIEGA Appointment date/timeframe: 10/21/2022 ordered Referral Referred To: Bonilla ARCINIEGA [address] [place], [place], [phone] Ordered: Referrals: Podiatry. Bonilla ARCINIEGA ordered Referral Referred To: Bonilla [facility]CINIEGA [facility] [place] [place], [phone] Ordered: Referrals: Dentistry. Bonilla ARCINIEGA Appointment date/timeframe: 12/17/2022 ordered Referral Referred To: Bonilla ARCINIEGA [address] [facility] [place], [phone] Ordered: Referrals: Gastroenterology. Bonilla ARCINIEGA Appointment date/timeframe: 04/09/2023 ordered Referral Referred To: Bonilla ARCINIEGA [address] [facility] [place], [phone] Ordered: Referrals: Lab Director. Bonilla ARCINIEGA ordered Referral Ordered: Referrals: Gynecology. Consult Appointment date/timeframe: 04/30/2022 ordered Future Order: Radiology Order Hi p X-ray; Unilateral, with Pelvis X-ray (2-3 views) ([id number]), Ordered on: Ordered Future Order: Radiology Order TT E Combined, 2D image, spectral Doppler, color flow image ([id number]), Ordered on: Ordered Future Order: Lab Order QUANTIFE KARLEY(R)-TB GOLD PLUS, 1 TUBE ([id number]), Ordered on: Ordered History Of Present Illness [...] good weekend per calls kindly placed by quality control engineer nursing. Ppt noted to be doing well, [...] and available resources.Ppt seen on request of psychosocial rehabilitation counselor who was concerned ppt may be having a shiraz episode. Ppt was roomed and provider was notified at 1:45pm. Upon entering, ppt was speaking with psychosocial rehabilitation counselor. Translation was kindly provided by charge rn on site. This provider checked with ppt, who notes she has been having difficulty sleeping, but notes this is a chronic issue. She denies any chest pain, palpitations. She does not recall med changes that occurred per at previous psychiatry visit, these were discussed. At this time, [facility] staff walked in noting ppts ride had arrived for 2pm and there is no ability to delay. This provider was unable to perform further HPI, ROS and had to perform a limited exam.Based on this providers limited exam and the information provided by staff who know her, she appears to be at baseline. Ppt denies SI/HIVM left with ppts prescriber at [facility]. Recommended that ppt come back [...] ongoing conservative care. [facility] / [facility]SC[facility] is still being utilizedSees counseling every thursdayClonazepam, Haldol, Depakote, trazodone [id number] 7.0% -> 7.9 this fall currently using [...] being seen in clinic todayCarries dx of T7OULxyotlzty treated with Humalog SSI and Lantus She [...] age in NAD nontoxic appearingLUNGS ctabHEART rrr (+)o3g8MDD soft NTEXT no edema soft and NT PHV BESSIE INDERJIT RIVER A AHSAN PHVHPIPPt seen in clinic today for PHVShe was seen in the emergency dept No records available prior to visitIt appears she was seen at [place] [facility] for pain yesterday Pain is in [...] Bipolar, ÓSCAR, SchizophreniaHistorically rx by psychiatrist in [place] Currently klonopin, Depakote, Haldol, trazodoneShbettye is a patient at [facility] recently moved into her own apartment She reports she likes it She was reported as having increased anxiety yesterdayLiliy translates Ppt reports she feels better today vs yesterday Yesterday she had palpitations None since thenThese happen from wexy-vq-stebVITALS HR - 8202 - 96RR - 18BP - 142/80ROSno N V F C CP SOBno ABD PAIN diarrheano cough or difficulty swallowingno rashno palpitations todayPEFemale appearing her ageSpeaks Malawian translated by [place] RNNADMood stableAffect mildly distrustingSpeaks fluidly Answers are appropriateHEART RRR (+)[id number] CTABExt with trace pedal edema bilaterallyNontoxic appearing LABSDPA - 50.7 TSH - 1.94 PEE HPI_62 ___ year old ___female__[place] with sisterMedications reviewedDiagnoses reviewed Hospitalizations - no significant BIPOLAR/SCHIZOPHRENIA/ÓSCAR counseling/therapy once a weekrx by psychiatrist in [place] hasn't met with a prescriber heremodd affect stable no symptoms nowHLDReports she was on a medication but her doctor took it awayThey "never gave it back Would be agreeable to starting againTHYROIDLast labs were normal so her PCP took it awayCurrently her labs are normalShe does not want to restart unless she has ftK5ALBwtozc 48u SC JEANINE Lea reports no hospitalizations 2nd to [id number] opto referral and podiatry referralDenies any wounds [...] apparently last year. She was residing in [place]. She had a number of hospitalizations and there was a tentative plan to place her in long-term care however, her niece and sister intervened and brought her to [place].The patient initially lived with her niece however that did not quite taylor out and she is now living in a studio apartment in [place] with her Sister Nicky. There are pending applications for either a 2 bedroom apartment for the 2 of them to live together or a 1 bedroom for the prospect to live and with the sister living in the same complex. At this point, sister assists her with all necessities. There is a tentative plan for 25.5 hours from [facility] however this has not started or been finalized, per the niece.Community physicians currently: Primary CARE: Clarissa [phone]:Dr. Torito OrellanaMarshall podiatry [phone]:[facility] Nydia Muhammad[address] [place], [place] [phone] as psychiatrist however, is PhD psychologist, I am not sure who is prescribing psychiatric medicationsTimi Ibrahim, PhDPark City [phone]: Mary Jalloh/[phone]:Dr. Rajendra [facility] cyktzgkgeehah52 [facility] [address]. [phone]:Jaz [address] Streethilda [phone] listedMedications listedPharmacy listedPast medical history and past surgical history listed, apparently had labial cyst or the like in the past and it is recurrent1 of the hospitalizations in [place] has dementia listed as a contributory diagnosis, I am unclear if this is correctRecent hospitalizations:82/-05/23/21: [facility], seemingly psychiatric10/09/21-10/16/21:[facility]-danger to self, schizophrenia, dementia10/18/21-11/13/21: [facility], lactic acidosis, flank pain, shortness of breath, seemingly followed by a psychiatric admission12/02/21-12/17/21 [facility]:Delusions/hallucinations/disorientationPa tient uses a 4 wheeled walker. [...] appears to be at baseline. Noted that [facility] reduced her clonazepam to day, discontinued haloperidol and started amitriptyline. Discussion with SW after meeting, noting that the primary acute care assistant (cyndi) would like to stop the amitriptyline, given concern for changes in altered mental status.This provider recommended to halve for 7 days and then discontinue. This was relayed by psychosocial rehabilitation counselor.Safety questions were completed with ppt, denying any SI/HI, notes her depression/anxiety is stable. Feels safe to go home and to follow up on Thursday Related to Bipolar 1 disorder debrox in SE program e2lxj-bims as needed canal still patent - ppt [...] insulinself dcd CGM - using POCs at [id number] fasting this [facility] referrals to opto and poda1c and labs t odaytitrate up trulicity if neededeval ongoing Related to Type 2 diabetes mellitus without complication, with long-term current use of insulin lantus and humalog see T2DM Rela quentin to intermediate project manager current use of insulin cont STATINlipid taylor el today eval ongoing Related to Hypercholesteremia continue norvasc, ze stril, HCTZtrend routine labs and vitalsadjust mgmt as neededvitals checked during SE program and remain stable Related to Hypertension, unspecified type cont [facility]ation and mood at baseline cont current medication regimen (see Bipolar)eval ongoing Related to ÓSCAR (generalized anxiety disorder) mood affect stablefo llowed by [facility] Counselingcont haldol, depakote and prn klonopineval ongoing Related to Schizophrenia, unspecified type mood affect stablefo llowed by [facility] CounselingEKG this week forp Qtc [...] and humalog see T2DM Rela quentin to intermediate project manager (current) use of insulin a1C 7.0% -> 7.9curre ntly using lantus 48u SC QD and humalog SSiwill add trulicity to be admin @ day programtitrate up as neededcont to trend sugars [facility] far as periph neuropathy:ppt followed [...] NADpt will have appt made today at [facility] Counseling by dexter is agreeable [...] questions or concerns regarding psych dxfollowed by [facility] Counselingmsg left for info on upcoming appt and name of prescriberEKG pending tomorrow for Haldol use and baseline QTcdepakote lvl wnl @ 50.4cont haldol, depakote and prn klonopineval ongoing Related to ÓSCAR (generalized anxiety disorder) mood affect stablept has no questions or concerns regarding psych dxfollowed by [facility] Counselingmsg left for info on upcoming appt and name of prescriberEKG pending tomorrow for Haldol use and baseline QTcdepakote lvl wnl @ 50.4cont haldol, depakote and prn klonopineval ongoing Related to Schizophrenia, unspecified type mood affect stablept has no questions or concerns regarding psych dxfollowed by [facility] Counselingmsg left for info on upcoming appt and name of prescriberEKG pending tomorrow for Haldol use and baseline QTcdepakote lvl wnl @ 50.4cont haldol, depakote and prn klonopineval ongoing Related to Bipolar 1 disorder chronic dxfollowed b y GYNtakes antiviral for flare upsno pain or lesions at this timeno questions or concernsre-eval as neededfollowup TRAP PULLER consult summary as indicated Related to Genital herpes simplex, unspecified site no symptomsabd exam benigntaking PPI for GI ppx with good effectre-eval as needed Related to Gastroesophageal reflux disease, unspecified whether esophagitis present 04/25/22a1C 7.0%BUN/Cr -- 0.88/74currently using lantus 48u SC QDwill trend CMP and e6hQbkat as needed for hypoglycemiafoot exam with decrease in monofilament examotherwise foot exam wnlwill consult podiatry, optometry eval ongoing Related to DM type 2 with diabetic peripheral neuropathy 04/25/22a1C 7.0%BUN/Cr -- 0.88/74currently using lantus 48u SC QDwill trend CMP and q6hFyail as needed for hypoglycemiafoot exam with decrease in monofilament examotherwise foot exam wnlwill consult podiatry, optometry eval ongoing Related to USP (current) use of insulin 04/25/22AST/ALT 8/10 ( [...] Goal Continued 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 Bessie will continue to live in the community environment with support from [facility]ACE and family for 6 months. Patient Goal Entered in error Bsesie is at risk for senior care placement related to schizophrenia and bipolar I d/x . Bessie will continue to live in the community environment with support from PACE and family for 6 months. Patient Goal Continued Bessei is at risk for complications related to diabetes. Bessie will not experience any medical complications or hospitalizations, related to diabetes and A1C will be reduced or remain stable, as determined by the provider, for 6 months. Patient Goal Continued Impaired verbal communication related to language barrier- patient is Malawian speaking Bessie will continue to function in her current environment, have her medical needs met, and maintain current level of social interactions through next review. Patient Goal Continued
--- OUTSIDE RECORDS SUMMARY | 2024-11-24 09:16 | XMS_ITS | Clinical Summary ---
Author Organization [address] [facility] Address [address] [place] [address] Phone Care Team Providers Care Bakery Products Checker Name Role Phone Evelia Donald MD Primary Care Provider [phone] Allergies Active Allergy Reactions Criticality Noted Date [...] 10/04/2021 Long-term use of high-risk medication 10/04/2021 planning aide current use of insulin 10/04/2021 Lactic acidosis [...] EST Office Visit Orthopedic Surgery - [address] [phone] Zeyad Wallace, DPM Diabetic mononeuropathy [...] Medical History Medical History Date Comments Schizophrenia ([facility]) Diabetes mellitus ([facility]) Disease of thyroid gland Depression Insomnia Anxiety [...] AM EDT Office Visit Orthopedic Surgery - [place] [address] [phone] Zeyad Wallace, DPM [address] [address] Health Maintenance Due Date Last Done Comments [...] mmol/L LAB CHEMISTRY METHOD 10/04/2021 9:58 PM [facility] Potassium 3.8 3.6 - 5.1 mmol/L LAB CHEMISTRY METHOD 10/04/2021 9:58 PM EST [facility] Chloride 98 98 - 107 mmol/L LAB CHEMISTRY METHOD 10/04/2021 9:58 PM EST [facility] CO2 25 22 - 32 mmol/L LAB CHEMISTRY METHOD 10/04/2021 9:58 PM EST [facility] Anion Gap 14 6 - 18 LAB CHEMISTRY METHOD 10/04/2021 9:58 PM EST [facility] Glucose 369(H) 70 - 99 mg/dL LAB CHEMISTRY METHOD 10/04/2021 9:58 PM EST [facility] BUN 21(H) 8 - 20 mg/dL LAB CHEMISTRY METHOD 10/04/2021 9:58 PM [facility] Creatinine 1.08 0.60 - 1.30 mg/dL LAB CHEMISTRY METHOD 10/04/2021 9:58 PM [facility] eGFR 55 mL/min/1. 73m2 LAB CHEMISTRY METHOD 10/04/2021 9:58 PM [facility] BUN/Creatinine Ratio 19.4 12.0 - 20.0 LAB CHEMISTRY METHOD 10/04/2021 9:58 PM [facility] Calcium 9.4 8.9 - 10.3 mg/dL LAB CHEMISTRY METHOD 10/04/2021 9:58 PM [facility] AST (SGOT) 8(L) 15 - 41 unit/L LAB CHEMISTRY METHOD 10/04/2021 9:58 PM [facility] ALT (SGPT) 14 7 - 52 unit/L LAB CHEMISTRY METHOD 10/04/2021 9:58 PM [facility] Alkaline Phosphatase 106(H) 32 - 91 unit/L LAB CHEMISTRY METHOD 10/04/2021 9:58 PM [facility] Total Protein 6.9 6.1 - 7.9 g/dL LAB CHEMISTRY METHOD 10/04/2021 9:58 PM [facility] Albumin 4.2 3.5 - 4.8 g/dL LAB CHEMISTRY METHOD 10/04/2021 9:58 PM [facility] Total Bilirubin 0.4 0.3 - 1.2 mg/dL LAB CHEMISTRY METHOD 10/04/2021 9:58 PM [facility] Blood Venous blood specimen / Unknown Venipuncture / Unknown 10/04/2021 8:28 PM EST 10/04/2021 8:33 PM EST Neeta Bae MD LAB BLOOD ORDERABLES Final Resu lt LUIS ENRIQUE [facility]A [facility] [address] [place] [address] * OTIS MAMMO DIGITAL SCREENING BILAT (NB) [...] mammography views were obtained. Computer-aided detection utilizing RayVCAD reader has been performed. BREAST COMPOSITION: There [...] ??Dulce Lane MD ??08/22/2020 07:12 Transcribed by: ??[facility] ??08/22/2020 07:11 Technologist: ??[facility] Procedure Note Dulce Lane MD - 04/12/2021 EXAMINATION TYPE: OTIS Mammo Digital Screening bilat (NB) DATE OF EXAM : 08/21/2020 10:11 AM PATIENT HISTORY: Menarche at age 12. First Full-Term at age 18.Postmenopausal. PRIOR STUDIES: 03/15/2013, 10/25/2014, 11/05/2015, 12/22/2016,03/22/2018 REASON FOR STUDY: Breast Screening. TECHNIQUE: Digital mammography views were obtained. Computer-aideddetection utilizing RayVCAD reader has been performed. BREAST COMPOSITION: There [...] Relevant to Health Maintenance Insurance MEDICA[place] - [place] - [place] [facility] USP OPTIONS Advance Directives * Full Code - [...] currently active code status orders. Care Teams Bakery Products Checker Relationship Specialty Start Date End Date Evelia Donald MD [address], [address] [facility] D/B/A: [facility] OTIS De Oliveira PCP - General Internal Medicine 08/30/24
--- OUTSIDE RECORDS SUMMARY | 2024-11-24 09:16 | XMS_ITS | Continuity of Care Document ---
Author Organization [facility] Address [address] [place] [address] Phone Care Team Providers Care Senior Consumer Insights Consultant Name Role Phone Gerard Valdes CNP Unavailable [...] 26, 67, 70 and 82may occur.Performed at [facility] [id number] [facility] [id number] Panel Description: Microscop ic observation [Identifier] in Cervix by Cyto stain.thin prep Final PAP, THIN PREP WITH IMAGING 2019 12:52:1 1 SEE COMMENT Final Final Cytologic Interpretation ThinPrep Pap Test (Cervical): Satisfactory for evaluation. NEGATIVE FOR INTRAEPITHELIAL LESION OR MALIGNANCY. The cytologic changes of atrophy are noted. [facility]/11/20/2019Interpret [place]ion [place] [address], License number: [id number]. Electronically Signed Out By JASON Steele(ASCP) Date of Last Menstrual Period: (None Given) Other Clinical Conditions:Z11.51 Screening for HPVZ12.4 Screening for malignant neoplasm of cervixPostmenopausal Source of Specimen ThinPrep Pap Test (Cervical) Thin Prep Pap ([employer]EL[employer]) Fee Code(s): G0145 The Pap test is a screening test with an inherent, but low,probability of error. The Pap test is primarily effective for thediagnosis and prevention of squamous cell carcinoma. Regular screeningis critical for prevention. ThinPrep liquid-based slides, which meet the Gym Teacher criteria forautomated screening, have been screened by the [employer] [facility](as of 06/07/07) along with an additional manual rescreening by acytotechnologist and, if indicated, by a pathologist. Pathology [employer] [address] [place] [id number] No. [id number] CAP Accreditation No. [id number] Director: Randal Briones M.D. Advance Directives Directive Yes / No Effective Date File Name No Information Encounters Encounter Description Practice Location Reason(s) For Visit Diagnoses Date Provider Providers Copied on Encounter PREV VISIT, EST, AGE 40-64 [facility], [address] [place] [address], [id number] , [place] tel:[phone] [facility] annual exam (chief complaint) Encntr for attenuator exam (general) (routine) w/o abn findingsBreast cancer screeningCervical cancer screeningScreening for HPV (human papillomavirus)[place] ge barrier affecting health care 0 Keisha Gee. [address] [place] [address], [id number] , [place]. tel: [phone] Referring Provider: Gutierrez Collins, [address] [place] [address], [id number] . tel:[phone] PREV VISIT, EST, AGE 40-64 [facility], [address] [place] [address], [id number] , [place] tel: [phone] [facility] annual exam (chief complaint) Routine attenuator examinationScreening for HPV (human papillomavirus) 5 Geno Ugarte. [address] [place] [address] [place], [place], [id number] . tel: [phone] Referring Provider: Torito Moon, [address] [place] [address] [place], [address] . tel:[phone] OFFICE/OUTPA TIENT VISIT, EST [facility] [employer], [address] [place] [address], [id number] , [place] tel: [phone] [facility] PAP repeat (chief complaint) Symptom associated with female genital organsPap smear cannot exclude high grade squamous intraepithelial lesion (ASC-H) 4 Kwadwo Whitley. [address] [place] [address], [id number] . tel: [phone] Referring Provider: Gutierrez Collins, [address] [place] [address], [id number] . tel:[phone] PREV VISIT, EST, AGE 40-64 [facility], [address] [place] [address], [id number] , [place] tel: [phone] [email or web address] annual visit (chief complaint) Moderate dysplasia of cervix (DESI II)Gynecological Examination 3 Kwadwo Whitley. [address] [place] [address], [id number] . tel: [phone] Referring Provider: Gutierrez Burkett MD W, [address] [place] [address], [id number] . tel:[phone] OFFICE/OUTPA TIENT VISIT, [facility], [address] [place] [address], [id number] , [place] tel: [phone] [facility] repeat pap (chief complaint) DYSPLASIA OF CERVIX NOSDYSPLASIA OF CERVIX NOS 3 Kwadwo Whitley. [address] [place] [address], [id number] . tel: [phone] Referring Provider: Gutierrez Burkett MD W, [address] [place] [address], [id number] . tel:[phone] [facility], [address] [place] [address], [id number] , [place] tel: [phone] [facility] No Information 3 Kwadwo Whitley. [address] [place] [address], [id number] . tel: [phone] OFFICE/OUTPA TIENT VISIT, [facility], [address] [place] [address], [id number] , [place] tel: [phone] [facility] No Information 3 Kwadwo Whitley. [address] [place] [address], [id number] . tel: [phone] Referring Provider: Gutierrez Collins, [address] [place] [address], [id number] . tel:[phone] OFFICE/OUTPA TIENT VISIT, [facility], [address] [place] [address], [id number] , [place] tel: [phone] [facility] No Information 2 Kwadwo Whitley. [address] [place] [address], [id number] . tel: [phone] Referring Provider: Gutierrez Burkett MD W, [address] [place] [address], [place], [address] . tel:[phone] OFFICE/OUTPA TIENT VISIT, [facility], [address] [place], [place] [address], [place], [place], [id number] , [place] tel: [phone] [facility] No Information 2 Kwadwo Whitley. [address] [place] [address], [place], [place], [id number] . tel: [phone] Referring Provider: Gutierrez Burkett MD W, [address] [place], [place] [address], [place], [address] . tel:[phone] [facility], [address] [place], [place] [address], [place], [place], [id number] , [place] tel: [phone] [facility] No Information 2 Kwadwo Whitley. [address] [place] [address], [id number] . tel: [phone] Referring Provider: Gutierrez Burkett MD W, [address] [place], [place] [address] [place], [address] . tel:[phone] OFFICE/OUTPA TIENT VISIT, [facility], [address] [place], [place] [address], [place], [place], [id number] , [place] tel: [phone] [facility] No Information 2 Kwadwo Whitley. [address] [place] [address], [id number] . tel: [phone] Referring Provider: Gutierrez Collins, [address] [place], [address] . tel:[phone] Family History Family Member Type Diagnosis Age At Onset No Information Immunizations Vaccine Date Status Comments Flu (split) (3 yrs or older) administered Note: Invalid documented admin date was . ; Source: Other Provider Payers Payer name Insurance type Covered constitution party ID Socrates Galarza (s) [id number] Social History Type Description Quantity Date Captured [...] information: ptreturns after 5 years, very limited Ukrainian-accompanied by her , also limited Ukrainian. h/o ASC_H pap with neg biopsies, neg pap in 2012, 2013 and 2014. will repeat today. unsure of last mammogram. denies any PMB or attenuator concerns. Reason For Referral Reason For Referral No Information Plan Of Treatment Date Type Action Status Goal Colonoscopy Scre en. Due on due Goal Mammogram (Scree natalya); Bilateral. Due on due Future Order: Radiology Order Ma mmogram, Screening ([id number]), Ordered on: Ordered Future Order: Lab Order PAP (TP) - IMAGE GUIDED ([id number]), Ordered on: Ordered History Of Present Illness [...] pt returns after 5 years, very limited Ukrainian-accompanied by her , also limited Ukrainian. h/o ASC_H pap with neg biopsies, neg pap in 2012, 2013 and 2014. will repeat today. unsure of last mammogram. denies any PMB or attenuator concerns. annual exam Currently pregna nt: no. [...] return to once yearly. Related to Routine attenuator examination Increase Activity, M onthly Breast Exams at home Related to Routine attenuator examination Rtn in 6 mos for annual Related to Pap smear cannot exclude high grade squamous intraepithelial lesion (ASC-H) pt to return in April for stef weller Related to DYSPLASIA OF CERVIX NOS Assessments Type Assessment Date assessment Encntr for attenuator exam (general) (r outine) w/o abn findings [...] Mental Status Date Cognitive Assessment Orientation - [place] ed to time, place, person, situation. Patient Care Teams Name Effective Dates (start - stop) Status Members No Information
--- OUTSIDE RECORDS SUMMARY | 2024-11-24 09:16 | XMS_ITS | Data Portability ---
Author Organization [facility], autoContract Address [address] [place] [address] Assessment No assessment recorded. Plan of Treatment Reminders Order Date Submit Date Provider Last Modified By Organization Details Last Modified Time Details Appointments None recorded. Lab None recorded. Referral None recorded. Procedures None recorded. Surgeries None recorded. Imaging None recorded. Medication Orders ammonium lactate 12 % lotion 2020 021 [id number], [address] [facility] [place], [address], 15:37:21 Patient TargetsNo targets recorded. Patient Instructions Encounter Date Encounter Id Patient Instructions Last Modified By Organization Details Last Modified Time 10/18/2020 [id number] 1.) Office visit with DM foot exam [...] regular follow up evaluation by PCP and/or manager style. 6.) Return 3 months for DM check up and comprehensive foot care, sooner if problems. Not available 10/18/2020 12:32:14 01/28/2021 [id number] 1.) Office visit with DM foot exam [...] regular follow up evaluation by PCP and/or manager style. 6.) Return 3 months for DM check up and comprehensive foot care, sooner if problems. Not available 01/28/2021 15:01:30 02/18/2021 [id number] Warranty/Receipt New shoe break-in period Wear your [...] PRN basis. Not available 10/18/2021 09:50:05 05/06/2021 [id number] 1.) Office visit with DM foot exam [...] regular follow up evaluation by PCP and/or manager style. 6.) Return 3 months for DM check up and comprehensive foot care, sooner if problems. Not available 05/07/2021 08:22:47 08/09/2021 [id number] dedo en martillo : instrucciones de cuidado [...] regular follow up evaluation by PCP and/or manager style. 6.) Return 3 months for DM check up and comprehensive foot care, sooner if problems. I am prescribin. 1 Left and 1 Right - [employer] Medley S325-1 Black, Hook & Loop depth-inlay [...] Address Organization Details Recorded Time Diabetes mellitus 61180869 Active Min Rogers DPM [address] [place], [address], [facility] [employer] 5 12:50:43 Disorder o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 mellitus 549120637 Active 2017 Min Rogers DPM [address] [place], [place], [address] [place] [address] 7, [facility] [employer] 8 13:27:17 Overweight 425485715 Active 2019 Min Rogers DPM [address] [place], [address], [facility] [employer] 0 17:15:07 Uncontrolle d type 2 diabetes mellitus 561353911 Completed 01/21/2018 Min Rogers DPM [address] [place], [place], [address] [place] [address] 7, [facility] 8 13:27:22 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 490670979 Active Min Rogers DPM [address], [place], [address] [place] [address] 7, [facility] [employer] 5 12:39:04 Ingrowing nail 260354767 Active Min Rogers DPM [address] [place], [address], [employer] [facility] [employer] 5 12:39:04 Edema 745518168 Active Min Rogers DPM [address] [place], [address], [facility] [employer] 5 13:32:56 Peripheral venous insufficien cy 29029648 Active Min Rogers DPM [address] [place], [place], [address] [place] [address] 7, [facility] [employer] 5 13:32:56 Pain in limb 02362302 Active Min Rogers DPM [address] [place], [address], [facility] 5 12:39:04 Hammer toe 364128553 Active Min Rogers DPM [address] [place], [address], [facility] [employer] 5 12:50:43 Acquired cavus deformity of foot 35014364 Active Min Rogers DPM [address] [place], [address], [facility] [employer] 5 12:50:43 Problem Notes None recorded. Procedures Surgical History Date Name Laterality Status Provider Name and Address Organization Details Recorded Time 1 Nail Debridement completed Min Rogers DPM [address] [place], [address], [facility] [employer] 08/09/2021 15:47:04 1 Nail Debridement completed Min Rogers DPM [address] [place], [address], [facility] [employer] 05/07/2021 08:22:47 1 Nail Debridement completed Min Rogers DPM [address] [place], [address], [facility] [employer] 01/28/2021 15:00:03 1 Nail Debridement completed Min Rogers DPM [address] [place], [address], [facility] [employer] 10/18/2020 12:32:14 0 Nail Debridement completed Min Rogers DPM [address] [place], [address], [facility] [employer] 07/16/2020 12:25:52 0 Nail Debridement completed Min Rogers DPM [address] [place], [address], [facility] 04/12/2020 11:12:51 0 Nail Debridement completed Min Rogers DPM [address] [place], [address], [facility] 01/26/2020 15:11:05 0 Nail Debridement completed Min Rogers DPM [address] [place], [address], [facility] [employer] 10/31/2019 09:07:59 9 Nail Debridement completed Min Rogers DPM [address] [place], [address], [facility] [employer] 08/26/2019 16:10:32 9 Cortisone Injection completed Min Rogers DPM [address] [place], [address], [facility] [employer] 06/09/2019 08:55:55 9 Nail Debridement completed Min Rogers DPM [address] [place], [address], [facility] [employer] 06/09/2019 09:15:28 9 Nail Debridement completed Min Rogers DPM [address] [place], [address], [facility] [employer] 03/10/2019 13:36:34 9 Nail Debridement completed Min Rogers DPM [address] [place], [address], [facility] [employer] 12/28/2018 09:42:50 9 Nail Debridement completed Min Rogers DPM [address] [place], [address], [facility] [employer] 10/19/2018 13:15:54 8 Cortisone Injection completed Min Rogers DPM [address] [place], [address], [facility] [employer] 07/29/2018 11:08:29 8 Nail Debridement completed Min Rogers DPM [address] [facility], [place], [address], [facility] 07/29/2018 13:09:03 8 Nail Debridement completed Min Rogers DPM [address] [facility], [place], [address], [facility] 05/13/2018 10:01:58 8 Nail Debridement completed Min Rogers DPM [address] [place], [address], [facility] [employer] 03/04/2018 09:31:43 8 Nail Debridement completed Min Rogers DPM [address] [place], [address], [facility] [employer] 11/26/2017 14:37:36 5 Nail Debridement completed Min Rogers DPM [address] [place], [address], [facility] [employer] 02/01/2015 12:39:04 5 Nail Debridement completed Min Rogers DPM [address] [facility], [place], [address], [facility] [employer] 10/31/2014 13:32:39 4 Nail Debridement completed Min Rogers DPM [address] [place], [address], [facility] [employer] 08/03/2014 10:36:36 4 Nail Debridement completed Min Rogers DPM [address] [place], [address], [facility] [employer] 05/11/2014 10:36:07 4 Nail Debridement completed Min Rogers DPM [address] [place], [address], [facility] [employer] 02/20/2014 09:20:10 4 Nail Debridement completed Gregor Mckeon [facility] 12/07/2013 17:55:59 3 Nail Debridement completed [facility] 08/15/2013 18:15:52 3 Nail Debridement completed Min Rogers DPM [address] [place], [address], [facility] 05/08/2013 13:57:00 3 Nail Debridement completed Min Rogers DPM [address] [place], [address], [facility] 02/03/2013 13:55:58 3 Nail Debridement completed Min Rogers DPM [address] [place], [address], [facility] 11/15/2012 12:39:57 Imaging Results None recorded. Procedure Notes None recorded. Medical Equipment None Reported. Allergies Allergen ID Allergen Name Allergen Category Reaction Reaction Severity Criticality Documentation Date Start Date Code Code System Note Provider Name and Address Organization Details Recorded Time 921 Product containin g penicilli n (product) medicatio n Not available Not available Not available 10/14/2012 06763 8001 SNOMED [facility] 3 15:13:05 Medications Name Sig Start Date [...] Available Not Available No t Available [employer] [place] [employer] kit active Not Available Not Available [...] 157.48 cm Min Rogers, SEDRICKM [address] [place], [address], [facility] [email or web address] 10/18/2020 11:14:48 Date Recorded Body height Provider Name an d Address Organization Details Last Updated DateTime 01/28/2021 157.48 cm Min Rogers, DPM [address] [place], [address], [place] [facility] 01/28/2021 14:38:33 Date Recorded Body height Provider Name an d Address Organization Details Last Updated DateTime 05/06/2021 157.48 cm Min Rogers, DPM [address] [place], [address], [facility] [employer] 05/06/2021 16:15:17 Date Recorded Body height Provider Name an d Address Organization Details Last Updated DateTime 08/09/2021 157.48 cm Min Rogers, DPM [address] [place], [address], [place] [facility] [employer] 08/09/2021 15:31:11 Date Recorded Body height Provider Name an d Address Organization Details Last Updated DateTime 02/18/2021 157.48 cm Min Rogers, DPM [address] [place], [address], [facility] [employer] 10/18/2021 09:42:13 Social History Question Answer Notes LastModified by Organizat ion Details LastModified Time Tobacco Smoking Status Never Smoker Not Available [employer] 07/06/2020 03:15:47 What Is Your Level Of Alcohol Consumption? None [id number] Information not available 07/06/2020 Are You Blind Or Do You Have Difficulty Seeing? No [id number] Information not available 07/06/2020 Are You Deaf Or Do You Have Serious Difficulty Hearing? No [id number] Information not available 07/06/2020 Which Illicit Or Recreational Drugs Have You Used? Never [id number] Information not available 07/06/2020 What Is Your Occupation? Disabled - Mental Illness [id number] Information not available 07/06/2020 Marital Status [email or web address] Informwillo n not available 10/17/2012 What Was The Date Of Your Most Recent Tobacco Screening? 12/28/2018 [id number] Information not available 07/06/2020 Sex: Unknown Functional Status Question Answer Note LastModified by Organization D etails LastModified Time Do you have difficulty walking or climbing stairs? No [id number] Information not available 07/06/2020 Do you have difficulty doing errands alone? No [id number] Information not available 07/06/2020 Do you have difficulty dressing or bathing? No [id number] Information not available 07/06/2020 Mental Status Question Answer Note LastModified by Organization D etails LastModified Time Do you have difficulty concentrating, remembering or making decisions? No [id number] Information no t available 07/06/2020 Family History [...] Code Diagnosis Note [id number] Min Rogers DPM [facility] [employer] [address] [place] [address] 10/14/2012 15:09:24 10/18/2012 09:39:25 3202 Min Rogers DPM [facility] [place] [address] 11/11/2012 13:38:31 11/15/2012 16:52:19 7753 Min Rogers [facility] [address] [place] [address] 02/03/2013 13:22:42 02/03/2013 14:21:55 9796 Min Rogers [facility] [address] [place] [address] 05/06/2013 13:22:19 05/06/2013 13:57:43 42439 Min Rogers [facility] [address] [place] [address] 08/15/2013 10:36:55 08/15/2013 11:25:59 Uncontrolled type 2 diabetes mellitus 201668763 Ingrowing nail 849081822 Pain in limb 78289055 Onychomyco sis due to dermatophyte 728693045 Peripheral venous insufficiency 93624491 Edema 621949515 Acquired c avus deformity of foot 05969659 Hammer toe 881654452 44813 [facility] [address] [place] [address] 10/05/2013 11:52:21 10/05/2013 12:01:29 Uncontrolled type 2 diabetes mellitus 352034738 Hammer toe 091775319 36074 Min Rogers [facility] [address] [address] 12/07/2013 12:16:56 12/07/2013 12:42:09 Uncontrolled type 2 diabetes mellitus 164286589 Hammer toe 969771394 Onychomyco sis due to dermatophyte 878861088 Pain in limb 93787837 Ingrowing nail 017975400 92773 Min Rogers [facility] [address] [place] [address] 02/16/2014 09:54:34 02/16/2014 10:32:43 Onychomycosis due to dermatophyte 862396014 Ingrowing nail 366232638 Pain in limb 98252066 Diabetes mellitus 01558275 Peripheral venous insufficiency 30556398 Edema 461641810 Acquired c avus deformity of foot 18134075 Hammer toe 094006391 39627 Min Rogers DPM [facility] [address] [address] 05/11/2014 10:23:52 05/11/2014 10:24:21 Onychomycosis due to dermatophyte 764638112 Ingrowing nail 554300197 Pain in limb 41742948 Diabetes mellitus 19753722 Peripheral venous insufficiency 34172453 Edema 822708440 Acquired c avus deformity of foot 42328705 Hammer toe 211151648 04662 Min Rogers DPM [facility] [address] [address] 08/03/2014 09:27:24 08/03/2014 10:21:02 Onychomycosis due to dermatophyte 270781083 Ingrowing nail 232667915 Pain in limb 92135381 Diabetes mellitus 90500439 Peripheral venous insufficiency 05571773 Edema 150902976 Acquired c avus deformity of foot 43545563 Hammer toe 929930850 40630 Min Rogers DPM [facility] [address] [address] 10/27/2014 09:16:37 10/27/2014 10:30:34 Onychomycosis due to dermatophyte 843609912 Ingrowing nail 370626372 Pain in limb 29593545 Diabetes mellitus 44624491 Peripheral venous insufficiency 88670249 Edema 347486825 Acquired c avus deformity of foot 02530920 Hammer toe 666337428 04995 Min Rogers DPM [facility] [address] [address] 11/02/2014 13:10:07 11/02/2014 13:21:56 Hammer toe 841866513 Acquired c avus deformity of foot 99920953 Uncontroll ed type 2 diabetes mellitus 586311129 69536 Min Rogers DPM [facility] [address] [address] 11/13/2014 12:15:16 11/13/2014 12:33:38 Acquired cavus deformity of foot 61842918 Diabetes mellitus 02861797 Hammer toe 014440145 54242 Min Rogers DPM [facility] [address] [place] [address] 01/18/2015 13:54:36 01/18/2015 14:06:52 Onychomycosis due to dermatophyte 289704300 Ingrowing nail 211647172 Pain in limb 51739584 Uncontroll ed type 2 diabetes mellitus 557084575 25843 Min Rogers DPM [facility] [employer] [address] [place] [address] 11/26/2017 10:25:50 11/26/2017 11:21:38 Overweight 106020051 E66.3 Ingrowing nail 468633143 L60.0 Pain in toe 244872462 M7 9.676 Disorder o 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 mellitus 640250555 E11.49 Hammer toe 027100669 M20 .41 M20.42 Onychomycosis 452313277 B35.1 60637 Min Rogers DPM [facility] [employer] [address] [place] [address] 01/21/2018 13:25:31 01/21/2018 13:28:43 Disorder o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 mellitus 659958655 E11.49 Hammer toe 388467382 M20 .41 M20.42 54580 Min Rogers DPM [facility] [employer] [address] [place] [address] 02/17/2018 11:45:01 02/17/2018 12:02:11 Disorder o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 mellitus 263520751 E11.49 Hammer toe 934623536 M20 .41 M20.42 77938 Min Rogers DPM [facility] [address] [place] [address] 03/04/2018 08:59:26 03/04/2018 09:00:37 Onychomycosis due to dermatophyte 937508685 B35.1 Ingrowing nail 836287104 L60.0 Pain in limb 31785644 M7 9.609 Uncontroll ed type 2 diabetes mellitus 078944615 E11.65 48849 Min Rogers DPM [facility] [employer] [address] [place] [address] 05/13/2018 09:31:40 05/13/2018 09:56:12 Ingrowing nail 055366858 L60.0 Pain in limb 65268936 M7 9.609 Uncontroll ed type 2 diabetes mellitus 049908852 E11.65 Onychomycosis 436466704 B35.1 Obese 937889136 E66.9 67201 Min Rogers DPM [facility] [employer] [address] [place] [address] 07/29/2018 11:05:10 07/29/2018 11:15:42 Arthritis of right subtalar joint 3232790316 7370300 M13.871 Pain of ri ght ankle joint 8479470531 0007516 M25.571 Onychomycosis 085385631 B35.1 Ingrowing nail 956301339 L60.0 Uncontroll ed type 2 diabetes mellitus 776614854 E11.65 Obese 378085286 E66.9 Plantar fasciitis 064440 003 M72.2 Pain in toe 134797982 M7 9.676 68347 Min Rogers DPM [facility] [employer] [address] [place] [address] 08/02/2018 09:02:54 08/02/2018 09:39:55 Foot pain 48723203 M79.671 Arthritis of right subtalar joint 5531033188 0382485 M13.871 Plantar fasciitis 133327 003 M72.2 Onychomycosis 367480382 B35.1 Ingrowing nail 053432230 L60.0 Pain in toe 474068728 M7 9.676 Uncontroll ed type 2 diabetes mellitus 857006736 E11.65 Obese 797852768 E66.9 32409 Min Rogers DPM [facility] [employer] [address] [place] [address] 08/10/2018 11:41:12 08/10/2018 12:40:42 Plantar fasciitis 028899321 M72.2 Foot pain 51219694 M79.6 71 M79.672 92188 Min Rogers DPM [facility] [employer] [address] [place] [address] 10/19/2018 11:14:44 10/19/2018 13:16:01 Onychomycosis 888672667 B35.1 Ingrowing nail 311246287 L60.0 Pain in limb 85047214 M7 9.609 Uncontroll ed type 2 diabetes mellitus 542951400 E11.65 Obese 950479437 E66.9 16753 Min Rogers DPM [facility] [employer] [address] [place] [address] 12/28/2018 08:27:54 12/28/2018 09:22:02 Onychomycosis 464981537 B35.1 Ingrowing nail 602440125 L60.0 Pain in limb 51020366 M7 9.609 Uncontroll ed type 2 diabetes mellitus 311010633 E11.65 Obese 063160625 E66.9 14650 Min Rogers DPM [facility] [employer] [address] [place] [address] 03/10/2019 11:30:47 03/10/2019 12:35:36 Onychomycosis 614563695 B35.1 Ingrowing nail 010966076 L60.0 Pain in limb 14640408 M7 9.609 Uncontroll ed type 2 diabetes mellitus 087132528 E11.65 Obese 690393459 E66.9 05323 Min Rogers DPM [facility] [employer] [address] [place] [address] 06/09/2019 08:31:13 06/09/2019 09:28:11 Onychomycosis 997715825 B35.1 Ingrowing nail 227811180 L60.0 Pain in limb 27633896 M7 9.609 Uncontroll ed type 2 diabetes mellitus 013314460 E11.65 Obese 980658637 E66.9 Osteoarthr itis of subtalar joint 988490198 M19.072 Foot pain 39262927 M79.6 72 93738 Min Rogers DPM [facility] [employer] [address] [place] [address] 08/26/2019 15:57:18 08/26/2019 16:06:24 Overweight 977072997 E66.3 Onychomycosis 029948522 B35.1 Ingrowing nail 806236003 L60.0 Uncontroll ed type 2 diabetes mellitus 193339720 E11.65 Pain in toe 321648006 M7 9.676 46751 SEDRICK Villavicencio [facility] [employer] [facility] [address] [place] [address] 10/31/2019 08:53:06 10/31/2019 09:32:13 Onychomycosis 028172166 B35.1 Ingrowing nail 644176015 L60.0 Pain in toe 664306957 M7 9.676 Overweight 524769195 E66 .3 Disorder o 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 mellitus 409222722 E11.49 Hammer toe 187287247 M20 .41 M20.42 [id number] SEDRICK Villavicencio [facility] [employer] [address] [place] [address] 12/19/2019 17:27:14 12/19/2019 17:36:09 Disorder o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 mellitus 650306975 E11.49 Hammer toe 440508941 M20 .41 M20.42 21182 Min Rogers DPM [facility] [employer] [address] [place] [address] 01/26/2020 13:22:34 01/26/2020 15:00:52 Onychomycosis 304793180 B35.1 Ingrowing nail 878623440 L60.0 Pain in toe 793664838 M7 9.676 Disorder o 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 mellitus 260271343 E11.49 Hammer toe 432648225 M20 .41 M20.42 Overweight 621222314 E66 .3 68166 Min Rogers DPM [facility] [employer] [address] [place] [address] 7 04/12/2020 11:04:10 04/12/2020 11:16:03 Onychomycosis 260498082 B35.1 Ingrowing nail 795345917 L60.0 Pain in toe 507365791 M7 9.676 Disorder o 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 mellitus 015757686 E11.49 Hammer toe 802359955 M20 .41 M20.42 Overweight 380174171 E66 .3 45991 SEDRICK Villavicencio [facility] [employer] [address] [place] [address] 7 07/16/2020 12:08:06 07/16/2020 12:20:12 Onychomycosis 952541095 B35.1 Ingrowing nail 645080100 L60.0 Pain in toe 460440023 M7 9.676 Disorder o 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 mellitus 131471592 E11.49 Hammer toe 137520720 M20 .41 M20.42 Overweight 787545555 E66 .3 89526 Min Rogers DPM [facility] [employer] [address] [place] [address] 7 10/18/2020 11:06:15 10/18/2020 11:53:04 Onychomycosis 522205238 B35.1 Ingrowing nail 599539347 L60.0 Pain in toe 433125132 M7 9.676 Disorder o 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 mellitus 775563047 E11.49 Hammer toe 576102489 M20 .41 M20.42 Overweight 035052656 E66 .3 07883 SEDRICK Villavicencio [facility] [facility] [address] [place] [address] 7 01/28/2021 14:36:07 01/28/2021 14:49:01 Onychomycosis 129968879 B35.1 Ingrowing nail 754988050 L60.0 Pain in toe 130084960 M7 9.676 Disorder o 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 mellitus 330409660 E11.49 Obesity 716105984 E66.9 32786 Min Rogers DPM [facility] [employer] [address] [place] [address] 7 05/06/2021 16:07:24 05/06/2021 16:26:10 Onychomycosis 759695162 B35.1 Ingrowing nail 548846864 L60.0 Pain in toe 950222040 M7 9.676 Disorder o 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 mellitus 603204222 E11.49 Obesity 081227833 E66.9 23262 Min Rogers DPM [facility] [employer] [address] [place] [address] 7 08/09/2021 15:26:42 08/09/2021 15:31:37 Foot callus 206655005 L84 Onychomycosis 509804377 B35.1 Ingrowing nail 419118070 L60.0 Pain in toe 752598810 M7 9.676 Disorder o 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 mellitus 204878717 E11.49 Obesity 200229142 E66.9 Hammer toe 618703358 M20 .41 M20.42 74261 Min Rogers DPM [facility] [place] [address] [place] [address] 10/18/2021 09:41:46 10/18/2021 09:52:37 Disorder o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 mellitus 097387789 E11.49 Hammer toe 129240030 M20 .41 M20.42 Health Concerns Section Related [...] (MEDICAID REPLACEMENT - HMO) [facility] Bessie Alfonso [id number] Bessie Alfonso 01/28/2021 1 [employer] - [place] PRIOR TO 2022 (MEDICAID REPLACEMENT - HMO) [facility] Bessie Alfonso [id number] Bessie Alfonso 02/18/2021 1 [employer] PRIOR TO 2022 (MEDICAID REPLACEMENT - HMO) [facility] Bessie Alfonso [id number] Bessie Alfonso 05/06/2021 1 [place] Bessie Alfonso [id number] Bessie Alfonso 08/09/2021 1 [place] Bessie Alfonso [id number] Bessie Alfonso Notes Date Note Type Note [...] coronavirus COVID-19 disease. Min FragosoSTEPHANIE bruce [address] [place], [phone], [facility] 10/18/2020 12:33:21 01/28/2021 text/html Bessie presents f [...] (fully vaccinated). Min PachecoMilena Rogers DPM [address] [place], [address], [facility] 01/28/2021 15:02:07 05/06/2021 text/html Bessie presents f [...] (fully vaccinated). Min Roberson STEPHANIE Rogers [address] [place], [address], [facility] 05/07/2021 08:23:15 08/09/2021 text/html Bessie presents f [...] COVID-19 disease (vaccinated). Min Rogers DPM [address] [place], [address], [facility] 12:11:02 OBGyn Episode No OBEpisode recorded.
--- OUTSIDE RECORDS SUMMARY | 2024-11-24 09:16 | XMS_ITS | Encounter Summary ---
Author Organization [facility] Address [address] [place] [address] Care Team Providers Care Retanned Leather Roller Name Role Phone Evelia Donald MD Primary Care Provider [phone] Reason for Visit * Reason Comments Consult NPV-nail fungus * Consultation (Routine) - Closed Specialty Diagnoses / Procedures Referred By Contact Referred To Contact Podiatry / Orthopaedic Surgery Diagnoses Tinea unguium Evelia Donald MD [address] [place] [address] DrMilena, [address] [facility] D/B/A: [facility] [place], [place] Phone: tel: fax: Zeyad Wallace DPM [address] [address] Phone: tel: fax: Referral ID Status Reason Start Date Expiration Date V isits Requested Visits Authorized [id number] Closed Specialty Services Required 08/30/2024 08/30/2025 1 1 Encounter Details Date Type Department Care Team (Late st Contact Info) Description 11/16/2024 10:45 AM EST Office Visit Orthopedic Surgery - [place] [address] [phone] Zeyad Wallace DPM [address] [address] Diabetic mononeuropathy simplex (CMS/HCC) (Primary Dx); Tinea [...] has that occasionally her toes seem to vehicle return associate in her feet throb ache with pain [...] facet arthropathy Long-term use of 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-risk 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 (CMS/HCC) Lactic acidosis [...] AM EDT Office Visit Orthopedic Surgery - [place] [address] [address] Zeyad Wallace DPM [address] [address] documented as of this encounter Visit Diagnoses Diagnosis Diabetic mononeuropathy simplex (CMS/HCC)- Primary Type II or unspecified type diabetes mellitus with neurological manifestations, not stated as uncontrolled Tinea unguium Dermatophytosis of nail Type II diabetes mellitus with peripheral circulatory disorder (CMS/[facility]) Type II or unspecified type diabetes mellitus [...] 11/16/2024 documented in this encounter Care Teams Retanned Leather Roller Relationship Specialty Start Date End Date Evelia Donald MD 2 [facility] , [address] [facility] D/B/A: [facility] OTIS De Oliveira PCP - General Internal Medicine 08/30/24 documented as of this encounter
== END 2024-11-24 09:26 | disposition home or self-care (01) ==
LOC: HO.HUSH 08:42
PROVIDERS: PCP Internal Medicine; Visit Provider Nurse Practitioner Family
DX: N39.41 Urge incontinence (principal); R39.9 Unspecified symptoms and signs involving the genitourinary system; R35.0 Frequency of micturition; Z13.9 Encounter for screening, unspecified
CPT/HCPCS: 99213; G2211

== ENCOUNTER → 2024-11-24 08:42 | Outpatient (BNVA) | payer OTHER, SELFPAY | PROVIDERS: PCP Internal Medicine; Visit Provider Nurse Practitioner Family | DX: N39.41 Urge incontinence (principal); R35.0 Frequency of micturition | CPT/HCPCS: 51798; 81003; 99212 ==

== ENCOUNTER 2024-12-20 09:21 | Outpatient (AMB) | payer OTHER, SELFPAY ==
[2024-12-20 09:27] VITALS: BP 153/63; PULSE 84; O2SAT 98; BMI 28.1
--- NOTE | 2024-12-20 09:27 | A.OFFVIS_ITS ---
Vital Signs 12/20/24 09:27 Height 5 ft 6 in Weight 174 lb BMI 28.1 BP 153/63 H Blood Pressure Location Lt brachial Position Sitting Pulse 84 Pulse Oximetry (%) 98 Oxygen Delivery Method Room Air Intake Visit Reasons: constipation Intake Note: Patient follow up for conspitation. Patient cc: acid reflex and constipation. Denies any other GI issues for today visit. Crystal Finisher Required: Yes Crystal Finisher Name: [facility] Rick Trinh Accompanied by: Self / Same As Patient Allergies Penicillins Allergy (Intermediate, Verified 12/20/24 09:26) rash/swelling shellfish derived Allergy (Intermediate, Verified 12/20/24 09:26) Swelling, Hives Medication List - Last Reconciled 12/20/24 by Pavan Cooney MD acetaminophen 500 mg PO Q6H PRN 30 days acyclovir 400 mg PO TID 30 days amitriptyline 10 mg PO BEDTIME 90 days amlodipine 2.5 mg (1/2 x 5 mg) PO DAILY 90 days atorvastatin 10 mg PO DAILY 90 days blood sugar diagnostic (FreeStyle Test strips) As directed Twice a day blood-glucose meter (Blue Badge Styley Autocode Meter kit) As directed blood-glucose meter (FreeStyle Lite Meter kit) As directed divalproex ER 1,000 mg (2 x 500 mg) PO BEDTIME 90 days dulaglutide (Trulicity) 1.5 mg (0.5 mL) subcut QWEEK 30 days furosemide 40 mg PO DAILY insulin aspart U-100 (Novolog FlexPen U-100 Insulin aspart) 10 units (0.1 mL) subcut TID 90 days insulin glargine (Lantus Solostar U-100 Insulin) 48 units (0.48 mL) subcut DAILY 90 days lancets (Tri Alpha Energy Lancets) Use 1 lancet four times a day lisinopril 40 mg (2 x 20 mg) PO DAILY 90 days miscellaneous medical supply Grab bars for shower miscellaneous; omeprazole 20 mg PO DAILY pen needle, diabetic (1st Tier Unifine Pentips) Use 1 pen needle three times a day ropinirole 0.5 mg (2 x 0.25 mg) PO BID 90 days sennosides-docusate sodium 8.6-50 mg (Senna with Docusate Sodium) 1 tab-cap PO BEDTIME 60 days tolterodine ER 2 mg PO DAILY 90 days trazodone 100 mg PO BEDTIME walker As directed HPI HPI constipation: Details: GI clinic visit for this 64 year old [place]an-speaking female to discuss colonoscopy results LABS IN [facility] : reviewed IMAGING STUDIES: No recent GI imaging studies ENDOSCOPIC STUDIES: 04/29/24 COLONOSCOPY SHOWED: Three small and four medium sized polyps were removed Moderate diverticulosis seen in the sigmoid colon Plan: Repeat Colonoscopy in 2 years if polyps are adenomatous and 10 year if po lyps are hyperplastic. BIOPSIES SHOWED: A. Colon, cecal polyps: Tubular adenoma (1 piece); negative for high-grade dysplasia and carcinoma, and polypoid colonic mucosa with scant hyperplastic changes consistent with hyperplastic polyp (1 piece). B. Colon, ascending, polyps: Tubular adenomas (1 piece); negative for high-grade dysplasia and carcinoma, and sessile serrated lesion/polyp without dysplasia (1 piece). C. Colon, transverse, polyp: Tubular adenoma; negative for high-grade dysplasia and carcinoma. D. Colon, left sigmoid, polyp: Tubular adenoma; negative for high-grade dysplasia and carcinoma. 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 Denies any other GI issues for today visit. Continues to have constipation Has a BM twice a week Taking Senna 1 tab at bedtime and advised to increase to 2 tab daily Noted rectal bleeding in Nov and lasted 5 days Had bleeding again in Dec and lasted 4 days Denies rectal or anal pain when she has the bleeding. Blood is light red and is separate from the stool PAST VISIT: Colon results reviewed with the patient. Pt complains of chronic constipation and has a BM Denies taking any medication for constipation. Patient denies symptoms of heartburn, dysphagia, nausea, vomiting, change in appetite or weight. Denies recent change in bowel habits, diarrhea, black stools or rectal bleeding. Patient denies major cardiac or pulmonary problems, loud snoring or sleep apnea Denies problems with anesthesia in the past. Denies being on chronic anticoagulation. Patient denies known family history of colon polyps, colon cancer or other GI malignancies [facility] Medical History Osteoporosis Hypertension History of blood clot in brain Hypercholesteremia HSV-2 (herpes simplex virus 2) infection Arthritis Rheumatic fever Schizophrenia GERD (gastroesophageal reflux disease) Depression HTN (hypertension) Hyperlipemia Diabetes Surgical History Hx of colonoscopy History of tubal ligation History of cystostomy History of 2 sections Family History Sister Age: 63 Osteoarthritis Mother Cancer of lymphatic and hematopoietic tissue, Onset Age: 83 COVID-19 Father FH: heart attack Brother FH: heart attack Other Diabetes HTN (hypertension) Mental health disorder Social History Household Members: Family Household Members Other:: sister Housing: Apartment Do you presently have visiting nurse or other home services: No Alcohol intake: never Patient Tobacco Use Status: Never used Tobacco e-Cigarette/Vaping Use: Never Used Second Hand Smoke Exposure: No Advance Directives Date on File: 12/05/21 service: No Current occupational status: disabled Sexual orientation: Straight/Heterosexual Gender identity: Female Cognitive needs: Yes (walker) Hearing needs: No Vision needs: Yes (glasses) Female Reproductive History Menstrual Age of Menarche: 12 Physical Exam Vital Signs: Last Vital Signs Pulse 84 12/20/24 09:27 BP 153/63 H 12/20/24 09:27 Pulse Ox 98 12/20/24 09:27 Oxygen Delivery Method Room Air 12/20/24 09:27 BMI result Body Mass Index 28.1 Const General: healthy appearing and no acute distress Nutritional Appearance: overweight Orientation/consciousness: patient oriented x3 Limitations: language barrier HEENT Head: Yes normal to inspection Ears: hearing grossly normal bilaterally Eyes Sclerae: sclerae normal Pupils: Equal, round and reactive pupils present Neck Neck: Yes normal visual inspection Chest Chest palpation & inspection: normal inspection of the chest Resp Effort & Inspection: normal respiratory effort Auscultation: clear to auscultation bilaterally Cardio Palpation: normal PMI Rate: regular rate Rhythm: regular rhythm Heart sounds: S1 normal heart sound present, S2 normal heart sound present and no murmurs GI Palpation (GI): Soft to palpation, nontender and No hepatosplenomegaly present Auscultation: normal bowel sounds Rectal Exam - Female: deferred Skin General skin exam: no rashes or lesions noted Neuro General: patient oriented x3, gait normal and moves all extremities Cranial nerves: Yes Equal, round and reactive pupils present Psych Appearance: grossly normal Mental Status: mental status grossly normal Assessment & Plan Assessment & Plan (1) GERD (gastroesophageal reflux disease): Code(s): K21.9 - Gastro-esophageal reflux disease without esophagitis Category: Medical Qualifiers: Esophagitis presence: without esophagitis Qualified Code(s): K21.9 - Gastro-esophageal reflux disease without esophagitis (2) Chronic constipation: Code(s): K59.09 - Other constipation Category: Medical Plan 64 year old [place]an-speaking female followed in GI for chronic constipation and colon polyps removed during recent colonoscopy 04/29/24 COLONOSCOPY SHOWED: Three small and four medium sized polyps were removed Moderate diverticulosis seen in the sigmoid colon Plan: Repeat Colonoscopy in 2 years if polyps are adenomatous and 10 year if p olyps are hyperplastic. BIOPSIES SHOWED: A. Colon, cecal polyps: Tubular adenoma (1 piece); negative for high-grade dysplasia and carcinoma, and polypoid colonic mucosa with scant hyperplastic changes consistent with hyperplastic polyp (1 piece). B. Colon, ascending, polyps: Tubular adenomas (1 piece); negative for high-grade dysplasia and carcinoma, and sessile serrated lesion/polyp without dysplasia (1 piece). C. Colon, transverse, polyp: Tubular adenoma; negative for high-grade dysplasia and carcinoma. D. Colon, left sigmoid, polyp: Tubular adenoma; negative for high-grade dysplasia and carcinoma. 12/20/24 Patient advised to take Miralax once a day and increase senna to 2 tab at bedtime for constipation. Follow-up in 3 months Medications: New polyethylene glycol 3350 (Miralax) 17 grams PO DAILY 30 days 510 grams 3RF K59.09 - Other constipation Changed From sennosides-docusate sodium 8.6-50 mg (Senna with Docusate Sodium) Please take every other day at bedtime 1 tab-cap PO BEDTIME 60 days 60 tabs 2RF K59.09 - Other constipation To sennosides-docusate sodium 8.6-50 mg (Senna with Docusate Sodium) Please take 2 tab every day at bedtime 2 tab-caps (2 x 8.6-50 mg) PO BEDTIME 60 days 120 tabs 2RF K59.09 - Other constipation Coding Level of Care Code Est Pt Level 3 (70555) Diagnoses Gastroesophageal reflux disease without esophagitis K21.9 Esophagitis presence: without esophagitis Chronic constipation K59.09 Time Spent (min) 15
--- OUTSIDE RECORDS SUMMARY | 2024-12-20 10:28 | XMS_ITS | Continuity of Care Document ---
Author Organization [facility] Address [address] [facility] [address] [place] [address] Phone Care Team Providers Care Medical Operations Supervisor Name Role Phone Blaise FREEMAN, Ujjwala [...] THE SKIN ONCE EVERY WEEK. DELIVER TO [place] - Active acetaminophen ER 650 mg tablet,extended [...] Active clonazepam 0.5 mg tablet RX BY [facility] -- DO NOT REFILL -- REDUCED [...] Active PLEASE DELIVER TO [address] [facility] ELDERCARE pen needle, diabetic 31 gauge x 5/16 use 4 times a day as directed - Active ammonium lactate 12 % topical cream apply to affected area BID - Active Humalog U-100 Insulin 100 unit/mL subcutaneous solution inject by subcutaneous route pre lunch on per Sliding scale - Active Please send to [place]. Please do not autorefill.\Un julianna 200-no insulin. 201-250-4 units, 251-300-6 units, 301-350-8 units, over 350 inform clinician Natasha Ultra Strength 4 %-30 %-10 % topical cream apply to affrected area up to 3 times a day as directed - Active trazodone 100 mg tablet RX BY [facility] -- DO NOT REFILL -- take 1 tablet by oral route every bedtime - Active acetaminophen 325 mg tablet FOR USE AT DAY PROGRAM -- take 2 tablet by oral route every 4 hours as needed for pain, please do not exceed 2 doses/day at - Active polyethylene glycol 3350 17 gram/dose oral powder FOR USE AT [facility] DAY PROGRAM - mix 17g into water [...] Reason(s) For Visit Diagnoses Date Provider Formerly [facility], [address], [place], [place], [id number], [place] tel:[phone] [place] No Information Sep- 4 Bhagavatula Ujjwala. [address] [place], [id number], [place]. tel:[phone] Formerly [facility], [address], [place], [place], [id number], [place] tel:[phone] [place] No Information Feb-2 3 Dorothea Barb. [address] [facility] [place], [id number], [place]. tel:[phone] Formerly [facility], [address], [place], [place], [id number], [place] tel:[phone] [place] No Information Feb- 3 Bhagavatula Umarlinjwala. [address] [place], [address], [place]. tel:[phone] Formerly [facility], [address], [place], [place], [id number], [place] tel:[phone] [place] Other chronic pain Feb-0 3 Jojo Ojeda. [address] [place] [address], [id number], [place]. tel:[phone] Formerly [facility], [address], [place], [place], [id number], [place] tel:[phone] [place] Muscle weakness (generalized)Other chronic pain January- 3 Jojo Ojeda. [address] [place], [place], [id number], [place]. tel:[phone] Formerly [facility], [address], [place], [place], [id number], [place] tel:[phone] [place] Other chronic painMuscle weakness (generalized) January- 3 Uribe Lynette. [address] [place], [place], [id number], [place]. tel:[phone] Formerly [facility], [address], [place], [place], [id number], [place] tel:[phone] [place] Other chronic pain January- 3 Uribe Lynette. [address] [place], [place], [id number], [place]. tel:[phone] Formerly [facility], [address], [place], [place], [id number], [place] tel:[phone] [place] Acute right-sided lo w back pain with right-sided sciatica January- 3 Baldemar Landrum. [address] [place], [place], [id number], [place]. tel:[phone] Formerly [facility], [address] [facility] [address], [place], [place], [address], [place] tel:[phone] [place] Acute right-sided lo w back pain with right-sided sciatica January-0 3 Baldemar Landrum. [address] [facility] [place], [address], [place]. tel:[phone] Formerly [facility], [address] [facility] [address], [place], [place], [id number], [place] tel:[phone] [place] Encounter for rehabilitation evaluationAcute right-sided low back pain with right-sided sciatica January-0 3 Baldemar Landrum. [address] [facility] [place], [address], [place]. tel:[phone] Formerly [facility], [address] [facility] [address], [place], [place], [address], [place] tel:[phone] [place] Lower extremity edema (chief complaint) Localized edemaRadicular pain May-0 3 Blaise Nieto. [address] [facility] [place], [address], [place]. tel:[phone] Formerly [facility], [address], [place], [place], [address], [place] tel:[phone] [place] Lumbago with sciatic a, right side 3 Raffaele Kaden. [address] [place], [place], [id number], [place]. tel:[phone] Formerly [facility], [address] [facility], [place], [place], [address], [place] tel:[phone] [place] No Information 3 Raffaele Kaden. [address] [place], [place], [id number], [place]. tel:[phone] Former[facility], [address] [facility], [place], [place], [address], [place] tel:[phone] [place] No Information 3 Raffaele Kaden. [address] [place], [place], [id number], [place]. tel:[phone] Formerly [facility], [address] [facility], [place], [place], [address], [place] tel:[phone] [place] Encounter for genera l adult medical examination without abnormal findings 3 Pedro Luis Crystal. [address] [place], [place], [id number], [place]. tel:[phone] Formerly [facility], [address] [facility] [address] [facility], [place], [place], [address], [place] tel:[phone] [place] OV (chief complaint) Localized edemaLeg cramps 3 Bhagavatula Ujjwala. [address] [place], [place], [address], [place]. tel:[phone] Formerly [facility], [address] [facility] [address], [place], [place], [address], [place] tel:[phone] [place] No Information 3 Bhagavatula Ujjwala. [address] [place], [place], [address], [place]. tel:[phone] Formerly [facility], [address] [address], [place], [place], [address], [place] tel:[phone] [place] OV (chief complaint) Bipolar 1 disorder 3 Bhagavatula Ujjwala. [address] [place], [place], [id number], [place]. tel:[phone] Formerly [facility], [address] [address], [place], [place], [address], [place] tel:[phone] [place] No Information 3 Bhagavatula Ujjwala. [address] [place], [place], [address], [place]. tel:[phone] Formerly [facility], [address] [place] [address], [place], [place], [address], [place] tel:[phone] [place] No Information 3 Raffaele Alfonso. [address] [place], [place], [id number], [place]. tel:[phone] Formerly [facility], [address] [address], [place], [place], [address], [place] tel:[phone] [place] No Information 0 3 Pedro Luis Crystal. [address] [place], [place], [address], [place]. tel:[phone] [facility], [facility] [address] [place] [address], [id number], [place] tel:[phone] [place] RAJENDRA (chief complaint) Bipolar 1 disorderGAD (generalized anxiety disorder)Schizophrenia, unspecified typeHypertension, unspecified typeHypercholesteremiaT ype 2 diabetes mellitus without complication, with long-term current use of insulinLong term current use of insulinHypothyroidism, unspecified typeLong-term current use of injectable noninsulin antidiabetic medicationGastroesophag eal reflux disease without esophagitisEdema, unspecified typeTremorExcessive cerumen in left ear canal 3 Pedro Luis Crystal. [address] [facility] [place], [id number], [place]. tel:[phone] Formerly [facility], [address], [place], [place], [address], [place] tel:[phone] [place] No Information 3 Pedro Luis Crystal. [address] [place], [place], [id number], [place]. tel:[phone] Formerly [facility], [address], [place], [place], [address], [place] tel:[phone] [place] Skin excoriation 3 Pedro Luis Crystal. [address] [place], [place], [id number], [place]. tel:[phone] Formerly [facility], [address] [facility], [place], [place], [address], [place] tel:[phone] [place] Encounter for nutritional assessmentOther obesityDeficiency of other specified nutrient elements 3 Renetta Alvares. [address] [place], [place], [address], [place]. tel:[phone] Formerly [facility], [address] [facility] [address] [facility], [place], [place], [address], [place] tel:[phone] [place] OV (chief complaint) Left foot pain 3 Pedro Luis Crystal. [address] [place], [place], [address], [place]. tel:[phone] Formerly [facility], [address] [facility], [place], [place], [address], [place] tel:[phone] [place] No Information 3 Raffaele Alfonso. [address] [place], [place], [address], [place]. tel:[phone] Formerly [facility], [address], [place], [place], [address], [place] tel:[phone] [place] Encounter for rehabilitation evaluationChronic bilateral low back pain, unspecified whether sciatica presentOther chronic painPain of both shoulder jointsPain in left shoulder 2- 3 Ren Ruelas. [address] [place], [place], [address], [place]. tel:[phone] Formerly [facility], [address], [place], [place], [address], [place] tel:[phone] [place] Other lack of coordinationChronic midline low back pain, unspecified whether sciatica presentOther chronic pain 3 Ren Ruelas. [address] [place], [place], [address], [place]. tel:[phone] Formerly [facility], [address], [place], [place], [address], [place] tel:[phone] [place] Other lack of coordination Aug-2 2 Ren Ruelas. [address] [place], [place], [address], [place]. tel:[phone] Formerly [facility], [address], [place], [place], [id number], [place] tel:[phone] [place] Other chronic painOt her lack of coordination Aug- 2 Ren Ruelas. [address] [place], [place], [address], [place]. tel:[phone] Formerly [facility], [address], [place], [place], [address], [place] tel:[phone] [place] Other lack of coordinationChronic bilateral low back pain, unspecified whether sciatica presentOther chronic pain Dec-2 - 2 Ren Ruelas. [address] [place], [place], [address], [place]. tel:[phone] Formerly [facility], [address], [place], [place], [address], [place] tel:[phone] [place] Muscle weakness (generalized) Dec-2 0-202 2 Ren Jessenia. [address] [place], [place], [address], [place]. tel:[phone] Formerly [facility], [address], [place], [place], [address], [place] tel:[phone] [place] Oropharyngeal dysphagia Dec-1 4-202 2 Caselden Sofiya. [address] [place], [place], [address], [place]. tel:[phone] Formerly [facility], [address], [place], [place], [address], [place] tel:[phone] [place] Other lack of coordination Dec-1 3-202 2 Renbettye Ruelas. [address] [place], [place], [address], [place]. tel:[phone] Formerly [facility], [address], [place], [place], [address], [place] tel:[phone] [place] Other lack of coordination Dec-0 8- 2 Ren Jessenia. [address], [place], [place], [address], [place]. tel:[phone] Formerly [facility], [address], [place], [place], [address], [place] tel:[phone] [place] Oropharyngeal dysphagia Dec-0 7- 2 Caselden Sofiya. [address], [place], [place], [address], [place]. tel:[phone] Formerly [facility], [address], [place], [place], [address], [place] tel:[phone] [place] Alteration in performance of activities of daily living Dec-0 6-202 2 Ren Jessenia. [address] [place], [place], [address], [place]. tel:[phone] Formerly [facility], [address], [place], [place], [address], [place] tel:[phone] [place] OV (chief complaint) DM type 2 with diabetic peripheral neuropathyLong term (current) use of insulinLong-term (current) use of injectable non-insulin antidiabetic drugs Dec- 2 Pedro Luis Crystal. [address] [place], [place], [id number], [place]. tel:[phone] Formerly [facility], [address], [place], [place], [id number], [place] tel:[phone] [place] Alteration in performance of activities of daily living 2 Ren Ruelas. [address] [place], [place], [id number], [place]. 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 [address] [place], [place], [address], [place]. tel:[phone] Formerly [facility], [facility], [place], [place], [address], [place] tel:[phone] [place] Encounter for rehabilitation evaluation 2 Ren Ruelas. [address] [place], [place], [address], [place]. tel:[phone] Formerly [facility], [address], [place], [place], [address], [place] tel:[phone] [place] Dysphagia, unspecifi ed typeFeeding difficultiesEncounter for nutritional assessment 2 Normile Dia. [address] [place], [place], [address], [place]. tel:[phone] Formerly [facility], [address] [facility] [address] [facility], [place], [place], [address], [place] tel:[phone] [place] Other chronic pain 2 Uribe Lynette. [address] [place], [place], [id number], [place]. tel:[phone] Formerly [facility], [address], [place], [place], [address], [place] tel:[phone] [place] PHV (chief complaint) Bilateral shoulder pain, unspecified chronicity 2 Pedro Luis Bonilla. [address] [place], [place], [id number], [place]. tel:[phone] Formerly [facility], [address], [place], [place], [address], [place] tel:[phone] [place] Other chronic pain 2 Mcdermott Lucita. [address] [place], [place], [address], [place]. tel:[phone] Formerly [facility], [address], [place], [place], [address], [place] tel:[phone] [place] Difficulty in walkin g, not elsewhere classifiedOther chronic pain 2 Uribe Lynette. [address] [place], [place], [address], [place]. tel:[phone] Formerly [facility], [address], [place], [place], [address], [place] tel:[phone] [place] No Information 2 Raffaele Alfonso. [address] [place], [place], [address], [place]. tel:[phone] Formerly [facility], [address], [place], [place], [address], [place] tel:[phone] [place] Difficulty in walkin g, not elsewhere classifiedOther chronic pain 2 Uribe Lynette. [address] [place], [place], [address], [place]. tel:[phone] Formerly [facility], [address] [place], [address], [place] tel:[phone] [place] Muscle weakness (generalized) 2 Ren Ruelas. [address] [place], [place], [address], [place]. tel:[phone] Formerly [facility], [address], [place], [place], [address], [place] tel:[phone] [place] Difficulty in walkin g, not elsewhere classifiedOther chronic painMuscle weakness (generalized) 2 Uribe Lynette. [address] [place], [place], [address], [place]. tel:[phone] Formerly [facility], [address], [place], [place], [address], [place] tel:[phone] [place] Chronic bilateral lo w back pain, unspecified whether sciatica presentOther chronic pain 2 Baldemar Landrum. [address] [place], [place], [address], [place]. tel:[phone] Formerly [facility], [address] [place] [address], [id number], [place] tel:[phone] [place] Difficulty in walkin g, not elsewhere classifiedOther chronic pain 2 Uribe Lynette. [address] [place], [place], [address], [place]. tel:[phone] Formerly [facility], [address], [place], [place], [address], [place] tel:[phone] [place] Other chronic painMuscle weakness (generalized) 0 2 Uribe Lynette. [address] [place], [place], [address], [place]. tel:[phone] [facility], [address] [place], [address], [place] tel:[phone] [place] Chronic bilateral lo w back pain, unspecified whether sciatica presentOther chronic painPain of both shoulder jointsPain in left shoulder Sep-2 2 Ren Jessenia. [address] [facility] [place], [address], [place]. tel:[phone] [facility], [address] [facility], [place], [place], [id number], [place] tel:[phone] [place] Other chronic pain Sep-2 2 Jojo Ojeda. [address] [place] [address], [place], [place], [id number], [place]. tel:[phone] [facility], [address], [place], [place], [address], [place] tel:[phone] [place] Muscle weakness (generalized) Sep-2 2 Ren Jessenia. [address], [place], [place], [address], [place]. tel:[phone] Former[facility], [address] [facility], [place], [place], [id number], [place] tel:[phone] [place] Muscle weakness (generalized) Sep-2 2 Ren Ruelas. [address] [facility] [place], [address], [place]. tel:[phone] [facility], [address] [facility], [place], [place], [address], [place] tel:[phone] [place] Chronic midline low back pain, unspecified whether sciatica presentOther chronic pain Sep-2 0 2 Baldemar Landrum. [address] [facility] [address], [place], [place], [address], [place]. tel:[phone] Former[facility], [address] [facility] [address] [facility], [place], [place], [id number], [place] tel:[phone] [place] OV (chief complaint) ÓSCAR (generalized anxiety disorder) Sep-2 0 2 Pedro Luis Crystal. [address] [place], [place], [address], [place]. tel:[phone] [facility]ly [facility], [address], [place], [place], [address], [place] tel:[phone] [place] Chronic midline low back pain, unspecified whether sciatica presentOther chronic pain Sep-1 2 Baldemar Landrum. [address] [facility] [place], [address], [place]. tel:[phone] [facility], [address] [facility] [address] [facility], [place], [place], [address], [place] tel:[phone] [place] Muscle weakness (generalized)Mild cognitive impairment, so stated Sep-1 2 Ren Jessenia. [address] [facility] [place], [address], [place]. tel:[phone] [facility], [facility], [place], [place], [address], [place] tel:[phone] [place] No Information Sep-1 2 Pedro Luis Crystal. [address] [facility] [place], [address], [place]. tel:[phone] [facility], [facility], [place], [place], [id number], [place] tel:[phone] [place] No Information Sep-0 2 Pedro Luis Crystal. [address] [place], [place], [address], [place]. tel:[phone] [facility], [facility], [place], [place], [address], [place] tel:[phone] [place] Encounter for rehabilitation evaluationChronic bilateral low back pain without sciaticaOther chronic pain Sep-0 8 2 Baldemar Landrum. [address] [facility] [place], [address], [place]. tel:[phone] [facility], [address] [facility] [address] [facility], [place], [place], [address], [place] tel:[phone] [place] Muscle weakness (generalized) Sep-0 2-202 2 Ren Jessenia. [address] [place], [place], [address], [place]. tel:[phone] [facility], [address], [place], [place], [address], [place] tel:[phone] [place] No Information 2 Pedro Luis Crystal. [address], [place], [place], [id number], [place]. tel:[phone] [facility], [address], [place], [place], [address], [place] tel:[phone] [place] Encounter for rehabilitation evaluationMuscle weakness (generalized) 2 Ren Jessenia. [address], [place], [place], [address], [place]. tel:[phone] [facility], [address], [place], [place], [address], [place] tel:[phone] [place] Encounter for nutritional assessment 2 Waldemar Hammera. [address], [place], [address]. tel:[phone] [facility], [address], [place], [place], [address], [place] tel:[phone] [place] Encounter for rehabilitation evaluation 2 Ren Ruelas. [address], [place], [place], [address], [place]. tel:[phone] [facility], [address], [place], [place], [address], [place] tel:[phone] [place] Encounter for rehabilitation evaluation 2 Baldemar Landrum. [address] [facility] [address], [place], [place], [address], [place]. tel:[phone] [facility], [address], [place], [place], [address], [place] tel:[phone] [place] Herpesviral vesicula r dermatitis 2 Pedro Luis Crystal. [address], [place], [place], [address], [place]. tel:[phone] [facility], [address] [facility] [address] [facility], [place], [place], [address], [place] tel:[phone] [place] Encounter for genera l adult medical examination without abnormal findingsEssential (primary) hypertension 2 Pedro Luis Bonilla. [address] [facility] [place], [address], [place]. tel:[phone] [facility], [address] [facility] [address], [place], [place], [address], [place] tel:[phone] [place] PEE (chief complaint) Hypertension, unspecified typeHypercholesteremiaD M type 2 with diabetic peripheral neuropathyLong term (current) use of insulinGastroesophageal reflux disease, unspecified whether esophagitis presentGenital herpes simplex, unspecified siteBipolar 1 disorderHypothyroidism, unspecified typeGAD (generalized anxiety disorder)Schizophrenia, unspecified typeTremor 2 Pedro Luis Crystal. [address], [place], [place], [address], [place]. tel:[phone] [facility], [facility], [place], [place], [address], [place] tel:[phone] [place] Hypertension, unspecified typeHypercholesteremiaD M type 2 with diabetic peripheral neuropathyHypothyroidis m, unspecified typeHerpesviral infection, unspecified 2 Dorothea Day. [address], [place], [place], [address], [place]. tel:[phone] [facility] Center, 1 [facility], [place], [place], [id number], [place] tel:[phone] [place] Medication course changed 2 Dorothea Day. [address] [place], [place], [id number], [place]. tel:[phone] Formerly [facility], 1 [facility], [place], [place], [id number], [place] tel:[phone] [place] No Information 2 Raffaele Alfonso. [address] [place], [place], [id number], [place]. tel:[phone] Formerly [facility], 1 Formerly [facility] [address], [place], [place], [id number], [place] tel:[phone] [place] Intake (chief complaint) Encounter for general adult medical examination without abnormal findings 2 Raffaele Alfonso. [address] [place], [place], [id number], [place]. tel:[phone] Family History Family Member Type Diagnosis Age At Onset No Information Immunizations Vaccine Date Status Comments Fluzone Quad administered [facility] e: New Immunization Record Payers Payer name Insurance type Covered constitution party ID Socrates lee(s) [place] [address] [id number] [place] [address] [id number] Social History Type Description Quantity Date Captured Comments Sex Female Smoking Status No Information Chief Complaint And Reason For Visit No Information Plan Of Treatment Date Type Action Status Referral Ordered: Physical Therapy -Therapies/Rehabilitation (related to Right-sided low back pain with right-sided sciatica, unspecified chronicity) ordered Referral Referred To: Physical Therapy Ordered: Referrals: Therapies/Rehabilitation. Physical Therapy. Consult ordered Referral Ordered: [place] [facility] [place] [facility] [place] date/timeframe: 12/29/2022 ordered Referral Ordered: Referrals: Gynecology Appointment date/timeframe: 07/31/2022 ordered Referral Referred To: Bonilla ARCINIEGA [address] [place], [place], [phone] Ordered: Referrals: Internal Medicine. Bonilla ARCINIEGA Appointment date/timeframe: 05/13/2023 ordered Referral Referred To: Bonilla ARCINIEGA [address] [place], [place], [phone] Ordered: Referrals: Cardiology. Bonilla ARCINIEGA Appointment date/timeframe: 10/21/2022 ordered Aug-15-2022 Referral Referred To: Bonilla ARCINIEGA [address] [place], [place], [phone] Ordered: Referrals: Rheumatology. Bonilla ARCINIEGA Appointment date/timeframe: 04/16/2023 ordered Referral Referred To: [facility]INIEGA [address] [facility] [place] [place], [phone] Ordered: Referrals: Dentistry. Bonilla ARCINIEGA Appointment date/timeframe: 12/17/2022 ordered Referral Referred To: Bonilla ARCINIEGA [address] [facility] [place], [phone] Ordered: Referrals: Podiatry. Bonilla ARCINIEGA ordered Referral Referred To: Bonilla ARCINIEGA [address] [facility] [place] [place], [phone] Ordered: Referrals: Gastroenterology. Bonilla ARCINIEGA Appointment date/timeframe: 04/09/2023 ordered Referral Referred To: Bonilla ARCINIEGA [address] [facility] [place] [place], [phone] Ordered: Referrals: Claim Clinician. Bonilla ARCINIEGA ordered Referral Ordered: Referrals: Gynecology. Consult Appointment date/timeframe: 04/30/2022 ordered Future Order: Radiology Order Hi p X-ray; Unilateral, with Pelvis X-ray (2-3 views) ([id number]), Ordered on: Ordered Future Order: Radiology Order TT E Combined, 2D image, spectral Doppler, color flow image ([id number]), Ordered on: Ordered Future Order: Lab Order QUANTIFE KARLEY(R)-TB GOLD PLUS, 1 TUBE ([id number]), Ordered on: Ordered History Of Present Illness [...] good weekend per calls kindly placed by satellite communications operator nursing. Ppt noted to be doing well, [...] available resources.Ppt seen on request of social service manager who was concerned ppt may be having a shiraz episode. Ppt was roomed and provider was notified at 1:45pm. Upon entering, ppt was speaking with social service manager. Translation was kindly provided by storage battery tester on site. This provider checked with ppt, who notes she has been having difficulty sleeping, but notes this is a chronic issue. She denies any chest pain, palpitations. She does not recall med changes that occurred per at previous psychiatry visit, these were discussed. At this time, [facility] staff walked in noting ppts ride had arrived for 2pm and there is no ability to delay. This provider was unable to perform further HPI, ROS and had to perform a limited exam.Based on this providers limited exam and the information provided by staff who know her, she appears to be at baseline. Ppt denies SI/HIVM [facility] Recommended that ppt come back to [...] ongoing conservative care. BIPOLAR / ÓSCAR / SCHIZOPHRENIAVa Hospital counseling is still being utilizedSees counseling every thursdayClonazepam, Haldol, Depakote, trazodone [id number] 7.0% -> 7.9 this fall currently using [...] being seen in clinic todayCarries dx of H2GVQnukviziz treated with Humalog SSI and Lantus She [...] age in NAD nontoxic appearingLUNGS ctabHEART rrr (+)i1c3AYM soft NTEXT no edema soft and NT PHV BESSIE INDERJIT RIVER A AHSAN PHVHPIPPt seen in clinic today for PHVShe was seen in the emergency dept No records available prior to visitIt appears she was seen at [place] [facility] for pain yesterday Pain is in [...] Bipolar, ÓSCAR, SchizophreniaHistorically rx by psychiatrist in [place] Currently klonopin, Depakote, Haldol, trazodoneShbettye is a patient at [facility] recently moved into her own apartment She reports she likes it She was reported as having increased anxiety yesterdayLiliy translates Ppt reports she feels better today vs yesterday Yesterday she had palpitations None since thenThese happen from ldph-aj-dceoVITALS HR - 8202 - 96RR - 18BP - 142/80ROSno N V F C CP SOBno ABD PAIN diarrheano cough or difficulty swallowingno rashno palpitations todayPEFemale appearing her ageSpeaks Lithuanian translated by [place] RNNADMood stableAffect mildly distrustingSpeaks fluidly Answers are appropriateHEART RRR (+)s9d2Nvtea CTABExt with trace pedal edema bilaterallyNontoxic appearing LABSDPA - 50.7 TSH - 1.94 PEE HPI_62 ___ year old ___female__Lives in studio apartment in [place] with sisterMedications reviewedDiagnoses reviewed Hospitalizations - no significant BIPOLAR/SCHIZOPHRENIA/ÓSCAR counseling/therapy once a weekrx by psychiatrist in [place] hasn't met with a prescriber heremodd affect stable no symptoms nowHLDReports she was on a medication but her doctor took it awayThey "never gave it back Would be agreeable to starting againTHYROIDLast labs were normal so her PCP took it awayCurrently her labs are normalShe does not want to restart unless she has euS6ZENcgcym 48u SC JEANINE Lea reports no hospitalizations 2nd to [id number] opto referral and podiatry referralDenies any wounds [...] apparently last year. She was residing in [place]. She had a number of hospitalizations and there was a tentative plan to place her in long-term care however, her niece and sister intervened and brought her to [place].The patient initially lived with her niece however that did not quite taylor out and she is now living in a studio apartment in [place] with her Sister Nicky. There are pending applications for either a 2 bedroom apartment for the 2 of them to live together or a 1 bedroom for the prospect to live and with the sister living in the same complex. At this point, sister assists her with all necessities. There is a tentative plan for 25.5 hours from [facility] however this has not started or been finalized, per the niece.Community physicians currently: Primary CARE: [phone]:Dr. Torito OrellanaCh[facility] podiatry [phone]:[facility] Nydia Muhammad[address] [place], [place] [phone] as psychiatrist however, is PhD psychologist, I am not sure who is prescribing psychiatric medicationsTimi Ibrahim, PhDLDS [phone]: Mary Jalloh/[phone]:Dr. Raj[facility] hrzkmsarckmqz58 [facility] Turner Galvan. [phone]:Jaz [address] Streethilda [phone] listedMedications listedPharmacy listedPast medical history and past surgical history listed, apparently had labial cyst or the like in the past and it is recurrent1 of the hospitalizations in [place] has dementia listed as a contributory diagnosis, I am unclear if this is correctRecent hospitalizations:82/-05/23/21: [facility], seemingly psychiatric10/09/21-10/16/21:[facility]-danger to self, schizophrenia, dementia10/18/21-11/13/21: [facility], lactic acidosis, flank pain, shortness of breath, seemingly followed by a psychiatric admission12/02/21-12/17/21 [facility]:Delusions/hallucinations/disorientationPa tient uses a 4 wheeled walker. She [...] appears to be at baseline. Noted that [facility] reduced her clonazepam to day, discontinued haloperidol and started amitriptyline. Discussion with SW after meeting, noting that the primary child care sitter (cyndi) would like to stop the amitriptyline, given concern for changes in altered mental status.This provider recommended to halve for 7 days and then discontinue. This was relayed by social service manager.Safety questions were completed with ppt, denying any SI/HI, notes her depression/anxiety is stable. Feels safe to go home and to follow up on Thursday Related to Bipolar 1 disorder debrox in SE program [id number]-eryt as needed canal still patent - ppt concerned and wanted tx Related to Excessive cerumen in left ear canal no edema todaycont e levationre-eval as needed Related to Edema, unspecified type not tremulousness on exammonitor for EPS/tremors given use of psychoactive medsno changes at this timere-eval as needed Related to Tremor no symptomsabd exam benigntaking PPI for GI [...] and humalog see T2DM Rela quentin to shelter current use of insulin truliticty addedcont inues with humalog and basal insulinself dcd CGM - using POCs at [id number] fasting this [facility] referrals to opto and poda1c and [...] unspecified type mood affect stablefo llowed by [facility] Counselingcont haldol, depakote and prn klonopineval ongoing Related to Schizophrenia, unspecified type cont counseling and [facility]ation and mood at baseline cont current medication regimen (see Bipolar)eval ongoing Related to ÓSCAR (generalized anxiety disorder) mood affect stablefo llowed by [facility] CounselingEKG this week forp Qtc cont [...] and humalog see 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 a1C 7.0% -> 7.9curre ntly using lantus 48u SC QD and humalog SSiwill add trulicity to be admin @ day programtitrate up as neededcont to trend sugars via CGM at [facility] labs at [facility] [place] far as periph neuropathy:ppt followed by [...] NADpt will have appt made today at [facility] Counseling by dexter is agreeable to [...] questions or concerns regarding psych dxfollowed by [facility] Counselingmsg left for info on upcoming appt and name of prescriberEKG pending tomorrow for Haldol use and baseline QTcdepakote lvl wnl @ 50.4cont haldol, depakote and prn klonopineval ongoing Related to ÓSCAR (generalized anxiety disorder) mood affect stablept has no questions or concerns regarding psych dxfollowed by [facility] Counselingmsg left for info on upcoming appt and name of prescriberEKG pending tomorrow for Haldol use and baseline QTcdepakote lvl wnl @ 50.4cont haldol, depakote and prn klonopineval ongoing Related to Schizophrenia, unspecified type mood affect stablept has no questions or concerns regarding psych dxfollowed by [facility] Counselingmsg left for info on upcoming appt and name of prescriberEKG pending tomorrow for Haldol use and baseline QTcdepakote lvl wnl @ 50.4cont haldol, depakote and prn klonopineval ongoing Related to Bipolar 1 disorder chronic dxfollowed b y GYNtakes antiviral for flare upsno pain or lesions at this timeno questions or concernsre-eval as neededfollowup COUNTY ADMINISTRATOR consult summary as indicated Related to Genital herpes simplex, unspecified site no symptomsabd exam benigntaking PPI for GI ppx with good effectre-eval as needed Related to Gastroesophageal reflux disease, unspecified whether esophagitis present 04/25/22a1C 7.0%BUN/Cr -- 0.88/74currently using lantus 48u SC QDwill trend CMP and b5bOheqj as needed for hypoglycemiafoot exam with decrease in monofilament examotherwise foot exam wnlwill consult podiatry, optometry eval ongoing Related to shelter (current) use of insulin 04/25/22a1C 7.0%BUN/Cr -- 0.88/74currently using lantus 48u SC QDwill trend CMP and k3lAzfzh as needed for hypoglycemiafoot exam with decrease [...] Goal Continued 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 Bessie will continue to live in the community environment with support from [facility] and family for 6 months. Patient Goal Entered in error Bessie is at risk for half-way placement related to schizophrenia and bipolar I [...] communication related to language barrier- patient is Lithuanian speaking Bessie will continue to function in her current environment, have her medical needs met, and maintain current level of social interactions through next review. Patient Goal Continued
--- OUTSIDE RECORDS SUMMARY | 2024-12-20 10:29 | XMS_ITS | Clinical Summary ---
Author Organization 175 [facility] Address [address] [place] [address] Phone Care Team Providers Care Forensic Scientist Name Role Phone Evelia Donald MD Primary Care Provider [phone] Allergies Active Allergy Reactions Criticality Noted Date [...] 10/04/2021 Long-term use of high-risk medication 10/04/2021 intermediate manager current use of insulin 10/04/2021 Lactic acidosis [...] AM EST Office Visit Orthopedic Surgery - [address] [phone] Zeyad Wallace, DPM Diabetic mononeuropathy [...] Medical History Medical History Date Comments Schizophrenia Diabetes mellitus (CMS/HCC) Disease of thyroid gland Depression Insomnia Anxiety [...] AM EDT Office Visit Orthopedic Surgery - [place] [address] [phone] Zeyad Wallace, DPM [address] [address] Health Maintenance Due Date Last Done Comments [...] Additional history exists Breast Cancer Screening 08/21/2022 08/21/20 20, 03/22/2018, 12/22/2016, Additional history exists Diabetes: Annual [...] mmol/L LAB CHEMISTRY METHOD 10/04/2021 9:58 PM [facility] Potassium 3.8 3.6 - 5.1 mmol/L LAB CHEMISTRY METHOD 10/04/2021 9:58 PM EST [facility] Chloride 98 98 - 107 mmol/L LAB CHEMISTRY METHOD 10/04/2021 9:58 PM EST [facility] CO2 25 22 - 32 mmol/L LAB CHEMISTRY METHOD 10/04/2021 9:58 PM EST [facility] Anion Gap 14 6 - 18 LAB CHEMISTRY METHOD 10/04/2021 9:58 PM [facility] Glucose 369(H) 70 - 99 mg/dL LAB CHEMISTRY METHOD 10/04/2021 9:58 PM EST [facility] BUN 21(H) 8 - 20 mg/dL LAB CHEMISTRY METHOD 10/04/2021 9:58 PM [facility] Creatinine 1.08 0.60 - 1.30 mg/dL LAB CHEMISTRY METHOD 10/04/2021 9:58 PM [facility] eGFR 55 mL/min/1. 73m2 LAB CHEMISTRY METHOD 10/04/2021 9:58 PM [facility] BUN/Creatinine Ratio 19.4 12.0 - 20.0 LAB CHEMISTRY METHOD 10/04/2021 9:58 PM [facility] Calcium 9.4 8.9 - 10.3 mg/dL LAB CHEMISTRY METHOD 10/04/2021 9:58 PM [facility] AST (SGOT) 8(L) 15 - 41 unit/L LAB CHEMISTRY METHOD 10/04/2021 9:58 PM [facility] ALT (SGPT) 14 7 - 52 unit/L LAB CHEMISTRY METHOD 10/04/2021 9:58 PM [facility] Alkaline Phosphatase 106(H) 32 - 91 unit/L LAB CHEMISTRY METHOD 10/04/2021 9:58 PM [facility] Total Protein 6.9 6.1 - 7.9 g/dL LAB CHEMISTRY METHOD 10/04/2021 9:58 PM [facility] Albumin 4.2 3.5 - 4.8 g/dL LAB CHEMISTRY METHOD 10/04/2021 9:58 PM [facility] Total Bilirubin 0.4 0.3 - 1.2 mg/dL LAB CHEMISTRY METHOD 10/04/2021 9:58 PM [facility] Blood Venous blood specimen / Unknown Venipuncture / Unknown 10/04/2021 8:28 PM EST 10/04/2021 8:33 PM EST Neeta Bae MD LAB BLOOD ORDERABLES Final Resu lt LUIS ENRIQUE ARRIOLA [facility] [address] [id number] * OTIS MAMMO DIGITAL SCREENING BILAT (NB) [...] mammography views were obtained. Computer-aided detection utilizing [employer] reader has been performed. BREAST COMPOSITION: There [...] ??Dulce Lane MD ??08/22/2020 07:12 Transcribed by: ??[facility] ??08/22/2020 07:11 Technologist: ??Y Procedure Note Dulce Lane MD - 04/12/2021 EXAMINATION TYPE: [place] Mammo Digital Screening bilat (NB) DATE OF EXAM : 08/21/2020 10:11 AM PATIENT HISTORY: Menarche at age 12. First Full-Term at age 18.Postmenopausal. PRIOR STUDIES: 03/15/2013, 10/25/2014, 11/05/2015, 12/22/2016,03/22/2018 REASON FOR STUDY: Breast Screening. TECHNIQUE: Digital mammography views were obtained. Computer-aideddetection utilizing [employer] reader has been performed. BREAST COMPOSITION: There [...] Relevant to Health Maintenance [place] [facility] CORRECTION OPTIONS Member Subscriber Plan / Payer ( fective 2024-Present) Name:Bessie Gramajo Relation to Subscriber:Self Name:Bessie Gramajo Payer ID:[id number] Group ID:Not on file Type:Not on file Address: [facility] [address] [place] [address] Advance Directives * Full Code - Default (Latest Code Status on File) Date Activated Date Inactivated Comments 08/17/2021 10:01 PM 08/26/2021 8:35 PM This is or julianna is used when code status has not [...] currently active code status orders. Care Teams Forensic Scientist Relationship Specialty Start Date End Date Evelia Donald MD [address] [place] [address] Dr[address] [facility] D/B/A: [facility] OTIS De Oliveira PCP - General Internal Medicine 08/30/24
--- OUTSIDE RECORDS SUMMARY | 2024-12-20 10:29 | XMS_ITS | Data Portability ---
Author Organization [facility], autoContract Address [address] [place] [address] Assessment No assessment recorded. Plan of Treatment Reminders Order Date Submit Date Provider Last Modified By Organization Details Last Modified Time Details Appointments None recorded. Lab None recorded. Referral None recorded. Procedures None recorded. Surgeries None recorded. Imaging None recorded. Medication Orders ammonium lactate 12 % lotion 2020 021 [id number], [address] [facility], [place], [address], 15:37:21 Patient TargetsNo targets recorded. 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 6.) Return 3 months for DM check up and comprehensive foot care, sooner if problems. 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 6.) Return 3 months for DM check up and comprehensive foot care, sooner if problems. Not available 01/28/2021 15:01:30 02/18/2021 [id number] Warranty/Receipt New shoe break-in period Wear your [...] PRN basis. 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 6.) Return 3 months for DM check up and comprehensive foot care, sooner if problems. 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 6.) Return 3 months for DM check up and comprehensive foot care, sooner if problems. I am prescribin. 1 Left and 1 Right - Vidyo Medley S325-1 Black, Hook & Loop depth-inlay [...] Address Organization Details Recorded Time Diabetes mellitus 46656783 Active Min Rogers DPM [address] [place], [address], [facility] [employer] [facility] 5 12:50:43 Disorder o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 mellitus 472691588 Active 2017 Min Rogers DPM [address] [place], [place], [address] [place] [address] 7, [facility] [employer] [facility] 8 13:27:17 Overweight 035268398 Active 2019 Min Rogers DPM [address] [place], [address], [employer] [facility] 0 17:15:07 Uncontrolle d type 2 diabetes mellitus 546583611 Completed 01/21/2018 Min Rogers DPM [address] [place], [place], [address] [place] [address] 7, [employer] [facility] 8 13:27:22 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 068500432 Active Min Rogers DPM [address], [place], [address] [place] [address] 7, [facility] [employer] [facility] 5 12:39:04 Ingrowing nail 074875578 Active Min Rogers DPM [address] [place], [address], [employer] [facility] 5 12:39:04 Edema 206648715 Active Min Rogers DPM [address] [place], [address], [facility] [employer] [facility] 5 13:32:56 Peripheral venous insufficien cy 11229319 Active Min Rogers DPM [address] [place], [place], [address] [place] [address] 7, [facility] 5 13:32:56 Pain in limb 85368044 Active Min Rogers DPM [address] [place], [address], [facility] 5 12:39:04 Hammer toe 608066934 Active Min Rogers DPM [address] [place], [address], [facility] 5 12:50:43 Acquired cavus deformity of foot 81731409 Active Min Rogers DPM [address] [place], [address], [facility] 5 12:50:43 Problem Notes None recorded. Procedures Surgical History Date Name Laterality Status Provider Name and Address Organization Details Recorded Time 1 Nail Debridement completed Min Rogers DPM [address] [place], [address], [facility] 08/09/2021 15:47:04 1 Nail Debridement completed Min Rogers DPM [address] [place], [address], [facility] [employer] [facility] 05/07/2021 08:22:47 1 Nail Debridement completed Min Rogers DPM [address] [place], [address], [facility] 01/28/2021 15:00:03 1 Nail Debridement completed Min Rogers DPM [address] [place], [address], [facility] 10/18/2020 12:32:14 0 Nail Debridement completed Min Rogers DPM [address] [place], [address], [facility] 07/16/2020 12:25:52 0 Nail Debridement completed Min Rogers DPM [address] [place], [address], [facility] 04/12/2020 11:12:51 0 Nail Debridement completed Min Rogers DPM [address] [place], [address], [facility] 01/26/2020 15:11:05 0 Nail Debridement completed Min Rogers DPM [address] [place], [address], [facility] 10/31/2019 09:07:59 9 Nail Debridement completed Min Rogers DPM [address] [place], [address], [facility] 08/26/2019 16:10:32 9 Cortisone Injection completed Min Rogers DPM [address] [place], [address], [facility] 06/09/2019 08:55:55 9 Nail Debridement completed Min Rogers DPM [address] [place], [address], [facility] 06/09/2019 09:15:28 9 Nail Debridement completed Min Rogers DPM [address] [place], [address], [facility] 03/10/2019 13:36:34 9 Nail Debridement completed Min Rogers DPM [address] [place], [address], [facility] 12/28/2018 09:42:50 9 Nail Debridement completed Min Rogers DPM [address] [place], [address], [facility] 10/19/2018 13:15:54 8 Cortisone Injection completed Min Rogers DPM [address] [place], [address], [facility] 07/29/2018 11:08:29 8 Nail Debridement completed Min Rogers DPM [address] [facility], [place], [address], [facility] 07/29/2018 13:09:03 8 Nail Debridement completed Min Rogers DPM [address] [facility], [place], [address], [facility] 05/13/2018 10:01:58 8 Nail Debridement completed Min Rogers DPM [address] [place], [address], [facility] 03/04/2018 09:31:43 8 Nail Debridement completed Min Rogers DPM [address] [place], [address], [facility] 11/26/2017 14:37:36 5 Nail Debridement completed Min Rogers DPM [address] [place], [address], [facility] 02/01/2015 12:39:04 5 Nail Debridement completed Min Rogers DPM [address] [facility], [place], [address], [facility] 10/31/2014 13:32:39 4 Nail Debridement completed Min Rogers DPM [address] [place], [address], [facility] 08/03/2014 10:36:36 4 Nail Debridement completed Min Rogers DPM [address] [place], [address], [facility] 05/11/2014 10:36:07 4 Nail Debridement completed Min Rogers DPM [address] [place], [address], [facility] 02/20/2014 09:20:10 4 Nail Debridement completed Gregor Mckeon [facility] 12/07/2013 17:55:59 3 Nail Debridement [facility] 08/15/2013 18:15:52 3 Nail Debridement completed Min Rogers DPM [address] [place], [address], [facility] 05/08/2013 13:57:00 3 Nail Debridement completed Min Rogers DPM [address] [place], [address], [facility] 02/03/2013 13:55:58 3 Nail Debridement completed Min Rogers DPM [address] [place], [address], [facility] 11/15/2012 12:39:57 Imaging Results None recorded. Procedure Notes None recorded. Medical Equipment None Reported. Allergies Allergen ID Allergen Name Allergen Category Reaction Reaction Severity Criticality Documentation Date Start Date Code Code System Note Provider Name and Address Organization Details Recorded Time 921 Product containin g penicilli n (product) medicatio n Not available Not available Not available 10/14/2012 38834 8001 SNOMED [facility] 3 15:13:05 Medications Name Sig Start [...] Available Not Available No t Available [employer]Style [place] Lite kit active Not Available Not Available [...] 157.48 cm Min Rogers, SEDRICKM [address] [place], [address], [facility] [employer] 10/18/2020 11:14:48 Date Recorded Body height Provider Name an d Address Organization Details Last Updated DateTime 01/28/2021 157.48 cm Min Rogers, DPM [address] [place], [address], [place] [facility] 01/28/2021 14:38:33 Date Recorded Body height Provider Name an d Address Organization Details Last Updated DateTime 05/06/2021 157.48 cm Min Rogers, DPM [address] [place], [address], [facility] 05/06/2021 16:15:17 Date Recorded Body height Provider Name an d Address Organization Details Last Updated DateTime 08/09/2021 157.48 cm Min Rogers, DPM [address] [place], [address], [place] [facility] 08/09/2021 15:31:11 Date Recorded Body height Provider Name an d Address Organization Details Last Updated DateTime 02/18/2021 157.48 cm Min Rogers, DPM [address] [place], [address], [facility] 10/18/2021 09:42:13 Social History Question Answer Notes LastModified by Organizat ion Details LastModified Time Tobacco Smoking Status Never Smoker Not Available [employer] 07/06/2020 03:15:47 What Is Your Level Of Alcohol Consumption? None [id number] Information not available 07/06/2020 Are You Blind Or Do You Have Difficulty Seeing? No [id number] Information not available 07/06/2020 Are You Deaf Or Do You Have Serious Difficulty Hearing? No [id number] Information not available 07/06/2020 Which Illicit Or Recreational Drugs Have You Used? Never [id number] Information not available 07/06/2020 What Is Your Occupation? Disabled - Mental Illness [id number] Information not available 07/06/2020 Marital Status sbsrinivas Informwillo n not available 10/17/2012 What Was The Date Of Your Most Recent Tobacco Screening? 12/28/2018 [id number] Information not available 07/06/2020 Sex: Unknown Functional Status Question Answer Note LastModified by Organization D etails LastModified Time Do you have difficulty walking or climbing stairs? No [id number] Information not available 07/06/2020 Do you have difficulty doing errands alone? No [id number] Information not available 07/06/2020 Do you have difficulty dressing or bathing? No [id number] Information not available 07/06/2020 Mental Status Question Answer Note LastModified by Organization D etails LastModified Time Do you have difficulty concentrating, remembering or making decisions? No [id number] Information no t available 07/06/2020 Family History [...] Code Diagnosis Note [id number] Min Rogers DPM [facility] [address] [place] [address] 10/14/2012 15:09:24 10/18/2012 09:39:25 3202 Min Rogers DPM [facility] [place] [address] 11/11/2012 13:38:31 11/15/2012 16:52:19 7753 Min Rogers [facility] [address] [place] [address] 02/03/2013 13:22:42 02/03/2013 14:21:55 9796 Min Rogers [facility] [address] [place] [address] 05/06/2013 13:22:19 05/06/2013 13:57:43 [id number] Min Rogers [facility] [address] [place] [address] 08/15/2013 10:36:55 08/15/2013 11:25:59 Uncontrolled type 2 diabetes mellitus 554543800 Ingrowing nail 305554315 Pain in limb 46425044 Onychomyco sis due to dermatophyte 000314661 Peripheral venous insufficiency 55909808 Edema 304522803 Acquired c avus deformity of foot 29656376 Hammer toe 279716790 73521 [facility] [address] [place] [address] 10/05/2013 11:52:21 10/05/2013 12:01:29 Uncontrolled type 2 diabetes mellitus 256911267 Hammer toe 237525119 93558 Min Rogers [facility] [address] [address] 12/07/2013 12:16:56 12/07/2013 12:42:09 Uncontrolled type 2 diabetes mellitus 120081987 Hammer toe 604443874 Onychomyco sis due to dermatophyte 886893744 Pain in limb 43002708 Ingrowing nail 650272993 90967 Min Rogers [facility] [address] [place] [address] 02/16/2014 09:54:34 02/16/2014 10:32:43 Onychomycosis due to dermatophyte 312180426 Ingrowing nail 438279681 Pain in limb 23050342 Diabetes mellitus 70985085 Peripheral venous insufficiency 05988633 Edema 812340458 Acquired c avus deformity of foot 68377759 Hammer toe 035969999 56735 Min Rogers DPM [facility] [address] [address] 05/11/2014 10:23:52 05/11/2014 10:24:21 Onychomycosis due to dermatophyte 634358890 Ingrowing nail 572183276 Pain in limb 73209718 Diabetes mellitus 96884539 Peripheral venous insufficiency 59049281 Edema 464578129 Acquired c avus deformity of foot 23756077 Hammer toe 832535670 28646 Min Rogers DPM [facility] [address] [address] 08/03/2014 09:27:24 08/03/2014 10:21:02 Onychomycosis due to dermatophyte 932896860 Ingrowing nail 451954609 Pain in limb 78852347 Diabetes mellitus 49077097 Peripheral venous insufficiency 69008275 Edema 091052492 Acquired c avus deformity of foot 15430220 Hammer toe 559874885 00784 Min Rogers DPM [facility] [address] [address] 10/27/2014 09:16:37 10/27/2014 10:30:34 Onychomycosis due to dermatophyte 897753396 Ingrowing nail 465423521 Pain in limb 40117117 Diabetes mellitus 74550010 Peripheral venous insufficiency 65182840 Edema 482386780 Acquired c avus deformity of foot 45249019 Hammer toe 813145011 57555 Min Rogers DPM [facility] [address] [address] 11/02/2014 13:10:07 11/02/2014 13:21:56 Hammer toe 838537381 Acquired c avus deformity of foot 68684869 Uncontroll ed type 2 diabetes mellitus 789330668 90034 Min Rogers DPM [facility] [address] [address] 11/13/2014 12:15:16 11/13/2014 12:33:38 Acquired cavus deformity of foot 94796958 Diabetes mellitus 63446149 Hammer toe 180772397 03950 Min Rogers DPM [facility] [address] [place] [address] 01/18/2015 13:54:36 01/18/2015 14:06:52 Onychomycosis due to dermatophyte 601589694 Ingrowing nail 385861482 Pain in limb 36358939 Uncontroll ed type 2 diabetes mellitus 406055495 72648 Min Rogers DPM [facility] [address] [place] [address] 11/26/2017 10:25:50 11/26/2017 11:21:38 Overweight 453621387 E66.3 Ingrowing nail 202147450 L60.0 Pain in toe 350382635 M7 9.676 Disorder o 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 mellitus 666869258 E11.49 Hammer toe 646441289 M20 .41 M20.42 Onychomycosis 355858912 B35.1 42784 Min Rogers DPM [facility] [address] [place] [address] 01/21/2018 13:25:31 01/21/2018 13:28:43 Disorder o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 mellitus 093564989 E11.49 Hammer toe 788994722 M20 .41 M20.42 29369 Min Rogers DPM [facility] [address] [place] [address] 02/17/2018 11:45:01 02/17/2018 12:02:11 Disorder o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 mellitus 901458297 E11.49 Hammer toe 108301606 M20 .41 M20.42 79122 Min Rogers DPM [facility] [address] [place] [address] 03/04/2018 08:59:26 03/04/2018 09:00:37 Onychomycosis due to dermatophyte 484394034 B35.1 Ingrowing nail 317018159 L60.0 Pain in limb 33976436 M7 9.609 Uncontroll ed type 2 diabetes mellitus 182674055 E11.65 55099 Min Rogers DPM [facility] [address] [place] [address] 05/13/2018 09:31:40 05/13/2018 09:56:12 Ingrowing nail 816513762 L60.0 Pain in limb 06382448 M7 9.609 Uncontroll ed type 2 diabetes mellitus 188003848 E11.65 Onychomycosis 779173439 B35.1 Obese 158624774 E66.9 24686 Min Rogers DPM [facility] [address] [place] [address] 07/29/2018 11:05:10 07/29/2018 11:15:42 Arthritis of right subtalar joint 2775258717 6492116 M13.871 Pain of ri ght ankle joint 2175654745 6066841 M25.571 Onychomycosis 172647001 B35.1 Ingrowing nail 396090394 L60.0 Uncontroll ed type 2 diabetes mellitus 147980853 E11.65 Obese 612443302 E66.9 Plantar fasciitis 538933 003 M72.2 Pain in toe 949429034 M7 9.676 65060 Min Rogers DPM [facility] [address] [place] [address] 08/02/2018 09:02:54 08/02/2018 09:39:55 Foot pain 98947074 M79.671 Arthritis of right subtalar joint 7872511540 8303196 M13.871 Plantar fasciitis 386660 003 M72.2 Onychomycosis 363529199 B35.1 Ingrowing nail 921823628 L60.0 Pain in toe 355708522 M7 9.676 Uncontroll ed type 2 diabetes mellitus 081244533 E11.65 Obese 451961836 E66.9 39669 Min Rogers DPM [facility] [address] [place] [address] 08/10/2018 11:41:12 08/10/2018 12:40:42 Plantar fasciitis 990735192 M72.2 Foot pain 98487476 M79.6 71 M79.672 46183 Min Rogers DPM [facility] [address] [place] [address] 10/19/2018 11:14:44 10/19/2018 13:16:01 Onychomycosis 655483335 B35.1 Ingrowing nail 923361372 L60.0 Pain in limb 97293960 M7 9.609 Uncontroll ed type 2 diabetes mellitus 399845267 E11.65 Obese 123146074 E66.9 98513 Min Rogers DPM [facility] [address] [place] [address] 12/28/2018 08:27:54 12/28/2018 09:22:02 Onychomycosis 722034510 B35.1 Ingrowing nail 914373205 L60.0 Pain in limb 75827047 M7 9.609 Uncontroll ed type 2 diabetes mellitus 876931622 E11.65 Obese 512042833 E66.9 82062 Min Rogers DPM [facility] [address] [place] [address] 03/10/2019 11:30:47 03/10/2019 12:35:36 Onychomycosis 073308060 B35.1 Ingrowing nail 684698083 L60.0 Pain in limb 08553843 M7 9.609 Uncontroll ed type 2 diabetes mellitus 128452091 E11.65 Obese 503835087 E66.9 11727 Min Rogers DPM [facility] [address] [place] [address] 06/09/2019 08:31:13 06/09/2019 09:28:11 Onychomycosis 364563623 B35.1 Ingrowing nail 075408873 L60.0 Pain in limb 78889687 M7 9.609 Uncontroll ed type 2 diabetes mellitus 950859800 E11.65 Obese 810204464 E66.9 Osteoarthr itis of subtalar joint 477396739 M19.072 Foot pain 69473208 M79.6 72 65121 Min Rogers DPM [facility] [address] [place] [address] 08/26/2019 15:57:18 08/26/2019 16:06:24 Overweight 426927841 E66.3 Onychomycosis 654254471 B35.1 Ingrowing nail 735881116 L60.0 Uncontroll ed type 2 diabetes mellitus 348148010 E11.65 Pain in toe 114994180 M7 9.676 93669 SEDRICK Villavicencio [facility] [address] [place] [address] 10/31/2019 08:53:06 10/31/2019 09:32:13 Onychomycosis 215023787 B35.1 Ingrowing nail 120598159 L60.0 Pain in toe 319815191 M7 9.676 Overweight 900465505 E66 .3 Disorder o 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 mellitus 701607308 E11.49 Hammer toe 832006432 M20 .41 M20.42 83642 SEDRICK Villavicencio [facility] [address] [place] [address] 12/19/2019 17:27:14 12/19/2019 17:36:09 Disorder o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 mellitus 912579481 E11.49 Hammer toe 183162246 M20 .41 M20.42 95996 Min Rogers DPM [facility] [address] [place] [address] 01/26/2020 13:22:34 01/26/2020 15:00:52 Onychomycosis 178393523 B35.1 Ingrowing nail 835187091 L60.0 Pain in toe 293768371 M7 9.676 Disorder o 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 mellitus 446364062 E11.49 Hammer toe 332882718 M20 .41 M20.42 Overweight 560732451 E66 .3 60835 Min Rogers DPM [facility] [address] [place] [address] 04/12/2020 11:04:10 04/12/2020 11:16:03 Onychomycosis 863795679 B35.1 Ingrowing nail 996884860 L60.0 Pain in toe 898452298 M7 9.676 Disorder o 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 mellitus 096597552 E11.49 Hammer toe 407238195 M20 .41 M20.42 Overweight 144190984 E66 .3 75263 SEDRICK Villavicencio [facility] [address] [place] [address] 07/16/2020 12:08:06 07/16/2020 12:20:12 Onychomycosis 886375676 B35.1 Ingrowing nail 443907120 L60.0 Pain in toe 083102877 M7 9.676 Disorder o 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 mellitus 639327356 E11.49 Hammer toe 749358807 M20 .41 M20.42 Overweight 178996599 E66 .3 18313 Min Rogers DPM [facility] [address] [place] [address] 10/18/2020 11:06:15 10/18/2020 11:53:04 Onychomycosis 874060421 B35.1 Ingrowing nail 609077653 L60.0 Pain in toe 072886469 M7 9.676 Disorder o 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 mellitus 994115373 E11.49 Hammer toe 412832331 M20 .41 M20.42 Overweight 505867436 E66 .3 23261 SEDRICK Villavicencio [facility] [address] [place] [address] 01/28/2021 14:36:07 01/28/2021 14:49:01 Onychomycosis 447007706 B35.1 Ingrowing nail 661427352 L60.0 Pain in toe 284598634 M7 9.676 Disorder o 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 mellitus 845764060 E11.49 Obesity 808755850 E66.9 38668 Min Rogers DPM [facility] [address] [place] [address] 7 05/06/2021 16:07:24 05/06/2021 16:26:10 Onychomycosis 048635696 B35.1 Ingrowing nail 706630350 L60.0 Pain in toe 975358605 M7 9.676 Disorder o 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 mellitus 953014295 E11.49 Obesity 556806904 E66.9 70394 Min Rogers DPM [facility] [address] [place] [address] 08/09/2021 15:26:42 08/09/2021 15:31:37 Foot callus 555090534 L84 Onychomycosis 559798168 B35.1 Ingrowing nail 263785367 L60.0 Pain in toe 923254138 M7 9.676 Disorder o 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 mellitus 037280777 E11.49 Obesity 752631312 E66.9 Hammer toe 028096988 M20 .41 M20.42 98881 Min Rogers DPM [facility] [place] [address] [place] [address] 10/18/2021 09:41:46 10/18/2021 09:52:37 Disorder o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 mellitus 117312616 E11.49 Hammer toe 047083656 M20 .41 M20.42 Health Concerns Section Related [...] (MEDICAID REPLACEMENT - HMO) [facility] Bessie Alfonso [id number] Bessie Alfonso 01/28/2021 1 [employer] - [place] PRIOR TO 2022 (MEDICAID REPLACEMENT - HMO) [facility] Bessie Alfonso [id number] Bessie Alfonso 02/18/2021 1 [employer] PRIOR TO 2022 (MEDICAID REPLACEMENT - HMO) [facility] Bessie Alfonso [id number] Bessie Alfonso 05/06/2021 1 [employer] Bessie Alfonso [id number] Bessie Alfonso 08/09/2021 1 [employer] Bessie Alfonso [id number] Bessie Alfonso Notes Date Note Type Note [...] coronavirus COVID-19 disease. Min FragosoSTEPHANIE bruce [address] [place], [address], [facility] [facility] 10/18/2020 12:33:21 01/28/2021 text/html Bessie presents [...] (fully vaccinated). Min PachecoMilena Rogers DPM [address] [place], [address], [facility] 01/28/2021 15:02:07 05/06/2021 text/html Bessie presents [...] (fully vaccinated). Min Roberson STEPHANIE Rogers [address] [place], [address], [facility] 05/07/2021 08:23:15 08/09/2021 text/html Bessie presents [...] COVID-19 disease (vaccinated). Min Rogers DPM [address] [place], [address], [facility] 08/19/2021 12:11:02 OBGyn Episode No OBEpisode recorded.
--- OUTSIDE RECORDS SUMMARY | 2024-12-20 10:29 | XMS_ITS | Continuity of Care Document ---
Author Organization [facility], [facility] Address [address] [place] [address] Phone Care Team Providers Care Shrimp Trawler Name Role Phone Gerard Valdes CNP Unavailable [...] 26, 67, 70 and 82may occur.Performed at [facility] [id number] [facility] [id number] Panel Description: Microscop ic observation [Identifier] in Cervix by Cyto stain.thin prep Final PAP, THIN PREP WITH IMAGING 2019 12:52:1 1 SEE COMMENT Final Final Cytologic Interpretation ThinPrep Pap Test (Cervical): Satisfactory for evaluation. NEGATIVE FOR INTRAEPITHELIAL LESION OR MALIGNANCY. The cytologic changes of atrophy are noted. [facility]/11/20/2019Interpret [place]ion [place] [address], License number: [id number]. Electronically Signed Out By JASON Steele(ASCP) Date of Last Menstrual Period: (None Given) Other Clinical Conditions:Z11.51 Screening for HPVZ12.4 Screening for malignant neoplasm of cervixPostmenopausal Source of Specimen ThinPrep Pap Test (Cervical) Thin Prep Pap (FOOD MOBILE DRIVER) Fee Code(s): G0145 The Pap test is a screening test with an inherent, but low,probability of error. The Pap test is primarily effective for thediagnosis and prevention of squamous cell carcinoma. Regular screeningis critical for prevention. ThinPrep liquid-based slides, which meet the Ldr Nurse criteria forautomated screening, have been screened by the NumerousPreMeldium Imaging System(as of 06/07/07) along with an additional manual rescreening by acytotechnologist and, if indicated, by a pathologist. Pathology [employer] [address] [place] [address] [id number] No. [id number] CAP Accreditation No. [id number] Director: Randal Briones M.D. Advance Directives Directive Yes / No Effective Date File Name No Information Encounters Encounter Description Practice Location Reason(s) For Visit Diagnoses Date Provider Providers Copied on Encounter PREV VISIT, EST, AGE 40-64 [facility], [address] [place] [address], [id number] , [place] tel:[phone] Al Detal annual exam (chief complaint) Encntr for seismic prospecting observer exam (general) (routine) w/o abn findingsBreast cancer screeningCervical cancer screeningScreening for HPV (human papillomavirus)[place]angua ge barrier affecting health care 0 Keisha Gee. [address] [place] [address], [id number] , [place]. tel: [phone] Referring Provider: Gutierrez Collins, [address] [place] [address], [address] . tel:[phone] PREV VISIT, EST, AGE 40-64 [facility], [address] [place] [address], [id number] , [place] tel: [phone] [facility] annual exam (chief complaint) Routine seismic prospecting observer examinationScreening for HPV (human papillomavirus) 5 Geno Ugarte. [address] [place] [address] [place], [place], [id number] . tel: [phone] Referring Provider: Torito Moon, [address] [place] [address] [place], [address] . tel:[phone] OFFICE/OUTPA TIENT VISIT, EST [facility] [employer], [address] [place] [address], [id number] , [place] tel: [phone] [facility] [facility] PAP repeat (chief complaint) Symptom associated with female genital organsPap smear cannot exclude high grade squamous intraepithelial lesion (ASC-H) 4 Kwadwo Whitley. [address] [place] [address], [id number] . tel: [phone] Referring Provider: Gutierrez Collins, [address] [place] [address], [address] . tel:[phone] PREV VISIT, EST, AGE 40-64 [facility], [address] [place] [address], [id number] , [place] tel: [phone] [facility] annual visit (chief complaint) Moderate dysplasia of cervix (DESI II)Gynecological Examination 3 Kwadwo Whitley. [address] [place] [address], [id number] . tel: [phone] Referring Provider: Gutierrez Burkett MD W, [address] [place] [address], [address] . tel:[phone] OFFICE/OUTPA TIENT VISIT, [facility], [address] [place] [address], [id number] , [place] tel: [phone] Al Detal repeat pap (chief complaint) DYSPLASIA OF CERVIX NOSDYSPLASIA OF CERVIX NOS 3 Kwadwo Whitley. [address] [place] [address], [id number] . tel: [phone] Referring Provider: Gutierrez Burkett MD W, [address] [place] [address], [address] . tel:[phone] [facility], [address] [place] [address], [id number] , [place] tel: [phone] Al Detal No Information 3 Kwadwo Whitley. [address] [place] [address], [id number] . tel: [phone] OFFICE/OUTPA TIENT VISIT, [facility], [address] [place] [address], [id number] , [place] tel: [phone] Al Detal No Information 3 Kwadwo Whitley. [address] [place] [address], [id number] . tel: [phone] Referring Provider: Gutierrez Collins, [address] [place] [address], [address] . tel:[phone] OFFICE/OUTPA TIENT VISIT, [facility], [address] [place] [address], [id number] , [place] tel: [phone] Al Detal No Information 2 Kwadwo Whitley. [address] [place] [address], [id number] . tel: [phone] Referring Provider: Gutierrez Burkett MD W, [address] [place] [address], [place], [address] . tel:[phone] OFFICE/OUTPA TIENT VISIT, [facility], [address] [place], [place] [address], [place], [place], [id number] , [place] tel: [phone] Al Detal No Information 2 Kwadwo Whitley. [address] [place] [address], [place], [place], [id number] . tel: [phone] Referring Provider: Gutierrez Burkett MD W, [address] [place], [place] [address], [place], [address] . tel:[phone] [facility], [address] [place], [place] [address], [place], [place], [id number] , [place] tel: [phone] Al Detal No Information 2 Kwadwo Whitley. [address] [place] [address], [id number] . tel: [phone] Referring Provider: Gutierrez Burkett MD W, [address] [place], [place] [address], [address] . tel:[phone] OFFICE/OUTPA TIENT VISIT, [facility], [address] [place], [place] [address], [place], [place], [id number] , [place] tel: [phone] Al Detal No Information 2 Kwadwo Whitley. [address] [place] [address], [id number] . tel: [phone] Referring Provider: Gutierrez Collins, [address] [place], [address] . tel:[phone] Family History Family Member Type Diagnosis Age At Onset No Information Immunizations Vaccine Date Status Comments Flu (split) (3 yrs or older) administered Note: Invalid documented admin date was . ; Source: Other Provider Payers Payer name Insurance type Covered democrat ID Socrates Galarza (s) [id number] Social History Type Description Quantity Date Captured [...] information: ptreturns after 5 years, very limited Swiss-accompanied by her , also limited Swiss. h/o ASC_H pap with neg biopsies, neg pap in 2012, 2013 and 2014. will repeat today. unsure of last mammogram. denies any PMB or seismic prospecting observer concerns. Reason For Referral Reason For Referral No Information Plan Of Treatment Date Type Action Status Goal Colonoscopy Scre en. Due on due Goal Mammogram (Scree natalya); Bilateral. Due on due Future Order: Radiology Order Ma mmogram, Screening ([id number]), Ordered on: Ordered Future Order: Lab Order PAP (TP) - IMAGE GUIDED ([id number]), Ordered on: Ordered History Of Present Illness [...] pt returns after 5 years, very limited Swiss-accompanied by her , also limited Swiss. h/o ASC_H pap with neg biopsies, neg pap in 2012, 2013 and 2014. will repeat today. unsure of last mammogram. denies any PMB or seismic prospecting observer concerns. annual exam Currently pregna nt: no. [...] return to once yearly. Related to Routine seismic prospecting observer examination Increase Activity, M onthly Breast Exams at home Related to Routine seismic prospecting observer examination Rtn in 6 mos for annual Related to Pap smear cannot exclude high grade squamous intraepithelial lesion (ASC-H) pt to return in April for stef weller Related to DYSPLASIA OF CERVIX NOS Assessments Type Assessment Date assessment Encntr for seismic prospecting observer exam (general) (r outine) w/o abn findings [...] Mental Status Date Cognitive Assessment Orientation - [place] ed to time, place, person, situation. Patient Care Teams Name Effective Dates (start - stop) Status Members No Information
== END 2024-12-20 10:21 | disposition home or self-care (01) ==
LOC: HO.HGI 09:22
PROVIDERS: PCP Internal Medicine; Visit Provider Internal Medicine Gastroenterology
DX: K21.9 Gastro-esophageal reflux disease without esophagitis (principal); K59.09 Other constipation
CPT/HCPCS: 99213

== ENCOUNTER → 2024-12-20 09:21 | Outpatient (BNVA) | payer OTHER, SELFPAY | PROVIDERS: PCP Internal Medicine; Visit Provider Internal Medicine Gastroenterology | DX: K59.09 Other constipation (principal); K21.9 Gastro-esophageal reflux disease without esophagitis | CPT/HCPCS: 99212 ==

== ENCOUNTER 2025-01-06 12:05 | Outpatient (AMB) | payer OTHER, SELFPAY ==
--- OUTSIDE RECORDS SUMMARY | 2025-01-06 12:58 | XMS_ITS | Continuity of Care Document ---
Author Organization [employer], [facility] Address [address] [place] [address] Phone Care Team Providers Care Gravel Inspector Name Role Phone Gerard Valdes CNP [...] 26, 67, 70 and 82may occur.Performed at [facility] [id number] [facility] [address] Panel Description: Microscop ic observation [Identifier] in Cervix by Cyto stain.thin prep Final PAP, THIN PREP WITH IMAGING 2019 12:52:1 1 SEE COMMENT Final Final Cytologic Interpretation ThinPrep Pap Test (Cervical): Satisfactory for evaluation. NEGATIVE FOR INTRAEPITHELIAL LESION OR MALIGNANCY. The cytologic changes of atrophy are noted. [facility]/11/20/2019Interpret [place]ion [place] [address], License number: [id number]. Electronically Signed Out By JASON Steele(ASCP) Date of Last Menstrual Period: (None Given) Other Clinical Conditions:Z11.51 Screening for HPVZ12.4 Screening for malignant neoplasm of cervixPostmenopausal Source of Specimen ThinPrep Pap Test (Cervical) Thin Prep Pap (PILLOW AGENT) Fee Code(s): G0145 The Pap test is a screening test with an inherent, but low,probability of error. The Pap test is primarily effective for thediagnosis and prevention of squamous cell carcinoma. Regular screeningis critical for prevention. ThinPrep liquid-based slides, which meet the Power Electronics Research Engineer criteria forautomated screening, have been screened by the [employer] MomentsPreZapHour Imaging System(as of 06/07/07) along with an additional manual rescreening by acytotechnologist and, if indicated, by a pathologist. Pathology [employer] [address] [place] [address] [id number] No. [id number] CAP Accreditation No. [id number] Director: Randal Briones M.D. Advance Directives Directive Yes / No Effective Date File Name No Information Encounters Encounter Description Practice Location Reason(s) For Visit Diagnoses Date Provider Providers Copied on Encounter PREV VISIT, EST, AGE 40-64 [employer], [address] [place] [address], [id number] , [place] tel:[phone] [employer] annual exam (chief complaint) Encntr for tree trimmer helper exam (general) (routine) w/o abn findingsBreast cancer screeningCervical cancer screeningScreening for HPV (human papillomavirus)[place]angu[place] ge barrier affecting health care 0 Keisha Gee. [address] [place] [address], [id number] , [place]. tel: [phone] Referring Provider: Gutierrez Collins, [address] [place] [address], [address] . tel:[phone] PREV VISIT, EST, AGE 40-64 [facility], [address] [place] [address], [id number] , [place] tel: [phone] [facility] annual exam (chief complaint) Routine tree trimmer helper examinationScreening for HPV (human papillomavirus) 5 Geno Ugarte. [address] [place] [address] [place], [place], [id number] . tel: [phone] Referring Provider: Torito Moon, [address] [place] [address] [place], [address] . tel:[phone] OFFICE/OUTPA TIENT VISIT, EST [facility] [employer], [address] [place] [address], [id number] , [place] tel: [phone] [facility] HospitalSocial[facility] PAP repeat (chief complaint) Symptom associated with female genital organsPap smear cannot exclude high grade squamous intraepithelial lesion (ASC-H) 4 Kwadwo Whitley. [address] [place] [address], [id number] . tel: [phone] Referring Provider: Gutierrez Collins, [address] [place] [address], [address] . tel:[phone] PREV VISIT, EST, AGE 40-64 [facility] HospitalPolym[facility], [address] [place] [address], [id number] , [place] tel: [phone] [facility] annual visit (chief complaint) Moderate dysplasia of cervix (DESI II)Gynecological Examination 3 Kwadwo Whitley. [address] [place] [address], [id number] . tel: [phone] Referring Provider: Gutierrez Burkett MD W, [address] [place] [address], [address] . tel:[phone] OFFICE/OUTPA TIENT VISIT, [facility] [employer] [facility], [address] [place] [address], [id number] , [place] tel: [phone] [employer] repeat pap (chief complaint) DYSPLASIA OF CERVIX NOSDYSPLASIA OF CERVIX NOS 3 Kwadwo Whitley. [address] [place] [address], [id number] . tel: [phone] Referring Provider: Gutierrez Burkett MD W, [address] [place] [address], [address] . tel:[phone] [employer], [address] [place] [address], [id number] , [place] tel: [phone] [employer] No Information 3 Kwadwo Whitley. [address] [place] [address], [id number] . tel: [phone] OFFICE/OUTPA TIENT VISIT, [facility] [employer], [address] [place] [address], [id number] , [place] tel: [phone] [employer] No Information 3 Kwadwo Whitley. [address] [place] [address], [id number] . tel: [phone] Referring Provider: Gutierrez Collins, [address] [place] [address], [address] . tel:[phone] OFFICE/OUTPA TIENT VISIT, [facility] [employer], [address] [place] [address], [id number] , [place] tel: [phone] [employer] No Information 2 Kwadwo Whitley. [address] [place] [address], [id number] . tel: [phone] Referring Provider: Gutierrez Burkett MD W, [address] [place] [address], [place], [address] . tel:[phone] OFFICE/OUTPA TIENT VISIT, [facility] [employer], [address] [place], [place] [address] [facility], [place], [place], [id number] , [place] tel: [phone] [employer] No Information 2 Kwadwo Whitley. [address] [place] [address], [place], [place], [id number] . tel: [phone] Referring Provider: Gutierrez Burkett MD W, [address] [place], [place] [address] [facility], [place], [address] . tel:[phone] [employer], [address] [place], [place] [address] [facility], [place], [id number] , [place] tel: [phone] [employer] No Information 2 Kwadwo Whitley. [address] [place] [address], [id number] . tel: [phone] Referring Provider: Gutierrez Burkett MD W, [address] [place], [place] [address], [address] . tel:[phone] OFFICE/OUTPA TIENT VISIT, [facility] [employer], [address] [place], [place] [address] [facility], [place], [id number] , [place] tel: [phone] [employer] No Information 2 Kwadwo Whitley. [address] [place] [address], [id number] . tel: [phone] Referring Provider: Gutierrez Collins, [address] [place], [address] . tel:[phone] Family History Family Member Type Diagnosis Age At Onset No Information Immunizations Vaccine Date Status Comments Flu (split) (3 yrs or older) administered Note: Invalid documented admin date was . ; Source: Other Provider Payers Payer name Insurance type Covered republican ID Socrates Galarza (s) [id number] Social History Type Description Quantity Date Captured [...] information: ptreturns after 5 years, very limited [place]-accompanied by her , also limited [place]. h/o ASC_H pap with neg biopsies, neg pap in 2012, 2013 and 2014. will repeat today. unsure of last mammogram. denies any PMB or tree trimmer helper concerns. Reason For Referral Reason For Referral No Information Plan Of Treatment Date Type Action Status Goal Mammogram (Scree natalya); Bilateral. Due on due Goal Colonoscopy Scre en. Due on due Future Order: Radiology Order Ma mmogram, Screening ([id number]), Ordered on: Ordered Future Order: Lab Order PAP (TP) - IMAGE GUIDED ([id number]), Ordered on: Ordered History Of Present Illness [...] pt returns after 5 years, very limited [place]-accompanied by her , also limited [place] African. h/o ASC_H pap with neg biopsies, neg pap in 2012, 2013 and 2014. will repeat today. unsure of last mammogram. denies any PMB or tree trimmer helper concerns. annual exam Currently pregna nt: no. [...] return to once yearly. Related to Routine tree trimmer helper examination Increase Activity, M onthly Breast Exams at home Related to Routine tree trimmer helper examination Rtn in 6 mos for annual Related to Pap smear cannot exclude high grade squamous intraepithelial lesion (ASC-H) pt to return in April for stef weller Related to DYSPLASIA OF CERVIX NOS Assessments Type Assessment Date assessment Encntr for tree trimmer helper exam (general) (r outine) w/o abn findings [...] Mental Status Date Cognitive Assessment Orientation - [place] ed to time, place, person, situation. Patient Care Teams Name Effective Dates (start - stop) Status Members No Information
--- OUTSIDE RECORDS SUMMARY | 2025-01-06 12:59 | XMS_ITS | Clinical Summary ---
Author Organization [address] [facility] Address [address] [place] [address] Phone Care Team Providers Care Brewmaster Name Role Phone Evelia Donald MD Primary Care Provider [phone] Allergies Active Allergy Reactions Criticality Noted Date [...] 1 (one) time each day. 15 each Active busPIRone (BUSPAR) 30 mg tablet Take [...] 10/04/2021 Long-term use of high-risk medication 10/04/2021 terminologist current use of insulin ([facility] V24, [facility] [place] V28) 10/04/2021 Lactic acidosis 10/04/2021 Right-sided chest wall pain 10/04/2021 Recurrent falls 10/04/2021 Pyelonephritis 10/04/2021 Obesity 10/04/2021 Sarcoidosis 10/04/2021 Schizoaffective disorder, de pressive type with good prognostic features ([facility] V24, [facility] V28) 10/04/2021 Sinusitis 10/04/2021 Encounter for immunization 10/04/2021 Tremor 10/04/2021 Altered mental state 08/17/2021 Abdominal pain 08/17/2021 DM type 2 (diabetes mellitus , type 2) ([facility] V24, [facility] V28) 05/21/2021 Overview (10/04/2021): x 15 years Necrotizing soft tissue infection 05/18/2021 Sacroiliac pain 11/28/2020 Lumbar facet arthropathy 08/29/2020 DDD (degenerative disc disease), lumbosacral Gastritis 09/28/2018 Acute psychosis ([facility] V24, [facility] V28) 04/23 Anxiety 04/23/2015 Impetigo 04/23/2015 Esotropia of left eye 06/04/2011 Rotary nystagmus 06/04/2011 Strabismic amblyopia 06/04/2011 Hyperthyroidism 02/19/2011 Mixed hyperlipidemia 02/19/2011 Primary open-angle glaucoma(365.11) 08/22/2010 Overview (12/20/2021): Replacing diagnoses that were inactivated after the 12/20/21 IMO import Senile nuclear sclerosis 08/22/2010 Encounters Date Type Department Care Team Description 11/16/2024 10:45 AM EST Office Visit Orthopedic Surgery - [address] [address] Zeyad Wallace, DPM Diabetic mononeuropathy simplex ([facility] V24, [facility] V28) (Primary Dx); Tinea unguium; Type II diabetes mellitus with peripheral circulatory disorder ([facility] V24, [facility] V28); Acquired hallux valgus of right foot; Acquired [...] Medical History Medical History Date Comments Schizophrenia ([facility] V24, [facility] V28) Diabetes mellitus ([facility] V24, [facility] V28) Disease of thyroid gland Depression Insomnia Anxiety DDD (degenerative disc disease), cervical Psychosis ([facility] V24, [facility] V28) High blood cholesterol level Social History Tobacco [...] AM EDT Office Visit Orthopedic Surgery - [place] [address] [phone] Zeyad Wallace, DPM [address] [address] Health Maintenance Due Date Last Done Comments [...] Vaccines (1 of 2) 2009 RSV Immunization Adult Patients (1 - Risk 60-74 years 1-dose series) [...] age to complete this topic Meningococcal B Vaccine Aged Out No l onger eligible based on patient's age to complete [...] LAB CHEMISTRY METHOD 10/04/2021 9:58 PM EST [facility] Potassium 3.8 3.6 - 5.1 mmol/L LAB CHEMISTRY METHOD 10/04/2021 9:58 PM EST [facility] Chloride 98 98 - 107 mmol/L LAB CHEMISTRY METHOD 10/04/2021 9:58 PM EST [facility] CO2 25 22 - 32 mmol/L LAB CHEMISTRY METHOD 10/04/2021 9:58 PM [facility] Anion Gap 14 6 - 18 LAB CHEMISTRY METHOD 10/04/2021 9:58 PM [facility] Glucose 369(H) 70 - 99 mg/dL LAB CHEMISTRY METHOD 10/04/2021 9:58 PM [facility] BUN 21(H) 8 - 20 mg/dL LAB CHEMISTRY METHOD 10/04/2021 9:58 PM [facility] Creatinine 1.08 0.60 - 1.30 mg/dL LAB CHEMISTRY METHOD 10/04/2021 9:58 PM [facility] eGFR 55 mL/min/1. 73m2 LAB CHEMISTRY METHOD 10/04/2021 9:58 PM [facility] BUN/Creatinine Ratio 19.4 12.0 - 20.0 LAB CHEMISTRY METHOD 10/04/2021 9:58 PM [facility] Calcium 9.4 8.9 - 10.3 mg/dL LAB CHEMISTRY METHOD 10/04/2021 9:58 PM [facility] AST (SGOT) 8(L) 15 - 41 unit/L LAB CHEMISTRY METHOD 10/04/2021 9:58 PM [facility] ALT (SGPT) 14 7 - 52 unit/L LAB CHEMISTRY METHOD 10/04/2021 9:58 PM [facility] Alkaline Phosphatase 106(H) 32 - 91 unit/L LAB CHEMISTRY METHOD 10/04/2021 9:58 PM [facility] Total Protein 6.9 6.1 - 7.9 g/dL LAB CHEMISTRY METHOD 10/04/2021 9:58 PM [facility] Albumin 4.2 3.5 - 4.8 g/dL LAB CHEMISTRY METHOD 10/04/2021 9:58 PM [facility] Total Bilirubin 0.4 0.3 - 1.2 mg/dL LAB CHEMISTRY METHOD 10/04/2021 9:58 PM EST [facility] Blood Venous blood specimen / Unknown Venipuncture / Unknown 10/04/2021 8:28 PM EST 10/04/2021 8:33 PM EST Neeta Bae MD LAB BLOOD ORDERABLES Final Resu lt [facility] [address] [place] [address] * [place] MAMMO DIGITAL SCREENING BILAT (NB) (08/21/2020 10:11 AM EST) Anatomical Region Laterality Modality Mammography 08/21/2020 10:1 1 AM EST Narrative 08/22/2020 7:12 AM EST EXAMINATION TYPE: PR Mammo Digital Screening bilat (NB) DATE OF EXAM : 08/21/2020 10:11 AM PATIENT HISTORY: Menarche at age 12. First Full-Term at age 18. Postmenopausal. PRIOR STUDIES: 03/15/2013, 10/25/2014, 11/05/2015, 12/22/2016, 03/22/2018 REASON FOR STUDY: Breast Screening. TECHNIQUE: Digital mammography views were obtained. Computer-aided detection utilizing SetredCAD reader has been performed. BREAST COMPOSITION: There are scattered areas of fibroglandular density FINDINGS: There are no suspicious abnormalities. There has been no significant interval change. IMPRESSION: No mammographic evidence for malignancy. BI-RADS Code: 1-Negative RECOMMENDATION: 1. Screening Mammogram in 1 year COMMENTS: Results of this examination will be immediately mailed to the patient. [place] thanks you for the opportunity to care for your patient. Workstation ID: [id number] ? FINAL REPORT Dictated By: ??Dulce Lane MD ??08/22/2020 07:11 Assigned Physician: ??Dulce Lane MD Reviewed and Electronically Signed By: ??Dulce Lane MD ??08/22/2020 07:12 Transcribed by: ??DISHA ??08/22/2020 07:11 Technologist: ??MAR Procedure Note Dulce Lane MD - 04/12/2021 EXAMINATION TYPE: PR Mammo Digital Screening bilat (NB) DATE OF EXAM : 08/21/2020 10:11 AM PATIENT HISTORY: Menarche at age 12. First Full-Term at age 18.Postmenopausal. PRIOR STUDIES: 03/15/2013, 10/25/2014, 11/05/2015, 12/22/2016,03/22/2018 REASON FOR STUDY: Breast Screening. TECHNIQUE: Digital mammography views were obtained. Computer-aideddetection utilizing SetredCAD reader has been performed. BREAST COMPOSITION: There are scattered areas of fibroglandular density FINDINGS: There are no suspicious abnormalities. There has been no significantinterval change. IMPRESSION: No mammographic evidence for malignancy. BI-RADS Code: 1-Negative RECOMMENDATION: 1. Screening Mammogram in 1 year COMMENTS: Results of this examination will be immediately mailed to thepatient. Ricardo Rodriguez thanks you for the opportunity to care [...] Relevant to Health Maintenance Insurance MEDICAID - [place] [facility] LONG TERM OPTIONS Member Subscriber Plan / Payer (Ef fective 2024-Present) Name:Bessie Bhatia Relation to Subscriber:Self Name:Bessie Bhatia Payer ID:[id number] Group ID:Not on file Type:Not on file Address: [place] [address] [place] [address] [place] - [place] [facility] [employer] TERM OPTIONS Member Subscriber Plan / Payer (Ef fective 2024-Present) Name:Bessie Bhatia Relation to Subscriber:Self Name:Bessie Bhatia Payer ID:[id number] Group ID:Not on file Type:Not on file Address: [address] [facility] [place] [address] Advance Directives * Full Code - Default [...] currently active code status orders. Care Teams Brewmaster Relationship Specialty Start Date End Date Evelia Donald MD [address] [place] [address] , [address] [facility] D/B/A: [facility] OTIS De Oliveira PCP - General Internal Medicine 08/30/24
--- OUTSIDE RECORDS SUMMARY | 2025-01-06 12:59 | XMS_ITS | Continuity of Care Document ---
Author Organization [facility] Address [address] [facility] [address] [place] [address] Phone Care Team Providers Care Offset Second Press Operator Name Role Phone Blaise FREEMAN, Ujjwala Unavailable [...] THE SKIN ONCE EVERY WEEK. DELIVER TO BREAKS - Active acetaminophen ER 650 mg tablet,extended [...] Active clonazepam 0.5 mg tablet RX BY [facility] -- DO NOT REFILL -- REDUCED [...] Active PLEASE DELIVER TO [address] [facility] - BREAKS ELDERCARE pen needle, diabetic 31 gauge x 5/16 use 4 times a day as directed - Active ammonium lactate 12 % topical cream apply to affected area BID - Active Humalog U-100 Insulin 100 unit/mL subcutaneous solution inject by subcutaneous route pre lunch on per Sliding scale - Active Please send to [place]. Please do not autorefill.\Un julianna 200-no insulin. 201-250-4 units, 251-300-6 units, 301-350-8 units, over 350 inform clinician Natasha Ultra Strength 4 %-30 %-10 % topical cream apply to affrected area up to 3 times a day as directed - Active trazodone 100 mg tablet RX BY [facility] -- DO NOT REFILL -- take 1 tablet by oral route every bedtime - Active acetaminophen 325 mg tablet FOR USE AT DAY PROGRAM -- take 2 tablet by oral route every 4 hours as needed for pain, please do not exceed 2 doses/day at - Active polyethylene glycol 3350 17 gram/dose oral powder FOR USE AT BREAKS DAY PROGRAM - mix 17g into water [...] Location Reason(s) For Visit Diagnoses Date Provider [facility], [address], [place], [place], [id number], [place] tel:[phone] Speculator No Information Sep- 4 Bhagavatula Ujjwala. [address] [place], [id number], [place]. tel:[phone] [facility], [address], [place], [place], [id number], [place] tel:[phone] Speculator No Information Feb-2 3 Dorothea Barb. [address] [facility] [place], [id number], [place]. tel:[phone] [facility], [address], [place], [place], [id number], [place] tel:[phone] Speculator No Information Feb- 3 Bhagavatula Umarlinjwala. [address] [place], [id number], [place]. tel:[phone] [facility], [address], [place], [place], [id number], [place] tel:[phone] Speculator Other chronic pain Feb-0 3 Jojo Ojeda. [address] [place] [address], [id number], [place]. tel:[phone] [facility], [address], [place], [place], [id number], [place] tel:[phone] Speculator Muscle weakness (generalized)Other chronic pain January- 3 Jojo Ojeda. [address] [place], [place], [id number], [place]. tel:[phone] [facility], [address], [place], [place], [id number], [place] tel:[phone] Speculator Other chronic painMuscle weakness (generalized) January- 3 Uribe Lynette. [address] [place], [place], [id number], [place]. tel:[phone] [facility], [address], [place], [place], [id number], [place] tel:[phone] Speculator Other chronic pain January- 3 Uribe Lynette. [address] [place], [place], [id number], [place]. tel:[phone] [facility], [address], [place], [place], [id number], [place] tel:[phone] Speculator Acute right-sided lo w back pain with right-sided sciatica January- 3 Baldemar Landrum. [address] [place], [place], [address], [place]. tel:[phone] [facility], [address] [facility] [address], [place], [place], [address], [place] tel:[phone] Speculator Acute right-sided lo w back pain with right-sided sciatica January-0 3 Baldemar Landrum. [address] [facility] [place], [id number], [place]. tel:[phone] [facility], [address] [facility] [address], [place], [place], [id number], [place] tel:[phone] Speculator Encounter for rehabilitation evaluationAcute right-sided low back pain with right-sided sciatica January-0 3 Baldemar Landrum. [address] [facility] [place], [address], [place]. tel:[phone] [facility], [address] [facility] [address], [place], [place], [address], [place] tel:[phone] Speculator Lower extremity edema (chief complaint) Localized edemaRadicular pain May-0 3 Blaise Nieto. [address] [facility] [place], [id number], [place]. tel:[phone] [facility], [address], [place], [place], [id number], [place] tel:[phone] Speculator Lumbago with sciatic a, right side January- 3 No Information [facility], [address], [place], [place], [id number], [place] tel:[phone] Speculator No Information 3 No Information [facility], [address], [place], [place], [id number], [place] tel:[phone] Speculator No Information 3 No Information [facility], [address], [place], [place], [address], [place] tel:[phone] Speculator Encounter for genera l adult medical examination without abnormal findings 3 Pedro Luis Crystal. [address] [facility] [place], [address], [place]. tel:[phone] [facility], [address], [place], [place], [address], [place] tel:[phone] Speculator OV (chief complaint) Localized edemaLeg cramps Nov- 3 Bhagavatula Ujjwala. [address], [place], [place], [address], [place]. tel:[phone] [facility], [address] [facility] [address] [facility], [place], [place], [address], [place] tel:[phone] Speculator No Information Nov- 3 Bhagavatula Ujjwala. [address] [place], [address], [place]. tel:[phone] [facility], [address], [place], [place], [address], [place] tel:[phone] Speculator OV (chief complaint) Bipolar 1 disorder Nov- 0 3 Bhagavatula Ujjwala. [address] [place], [address], [place]. tel:[phone] [facility], [address] [facility], [place], [place], [address], [place] tel:[phone] Speculator No Information 0- 3 Blaise Ujjwala. [address] [place], [address], [place]. tel:[phone] [facility], [address] [facility], [place], [place], [address], [place] tel:[phone] Speculator No Information 2 3 No Information [facility], [address] [facility] [facility], [place], [place], [address], [place] tel:[phone] Speculator No Information b-0 3 Pedro Luis Crystal. [address] [place], [address], [place]. tel:[phone] [facility], [address] [facility] [facility], [place], [place], [address], [place] tel:[phone] Speculator RAJENDRA (chief complaint) Bipolar 1 disorderGAD (generalized anxiety disorder)Schizophrenia, unspecified typeHypertension, unspecified typeHypercholesteremiaT ype 2 diabetes mellitus without complication, with long-term current use of insulinLong term current use of insulinHypothyroidism, unspecified typeLong-term current use of injectable noninsulin antidiabetic medicationGastroesophag eal reflux disease without esophagitisEdema, unspecified typeTremorExcessive cerumen in left ear canal b-0 8- 3 Pedro Luis Crystal. [address] [place], [id number], [place]. tel:[phone] [facility], [address] [facility], [place], [place], [address], [place] tel:[phone] Speculator No Information b0 2- 3 Pedro Luis Crystal. [address] [place], [address], [place]. tel:[phone] [facility], [address], [place], [place], [address], [place] tel:[phone] Speculator Skin excoriation 3 Pedro Luis Crystal. [address] [place], [id number], [place]. tel:[phone] [facility], [address], [place], [place], [id number], [place] tel:[phone] Speculator Encounter for nutritional assessmentOther obesityDeficiency of other specified nutrient elements 3 Renetta Seamana. [address] [facility] [place], [id number], [place]. tel:[phone] [facility], [address], [place], [place], [address], [place] tel:[phone] Speculator OV (chief complaint) Left foot pain 3 Pedro Luis Crystal. [address] [place], [address], [place]. tel:[phone] [facility], [address] [facility], [place], [place], [address], [place] tel:[phone] Speculator No Information 3 No Information [facility], [address] [facility], [place], [place], [address], [place] tel:[phone] Speculator Encounter for rehabilitation evaluationChronic bilateral low back pain, unspecified whether sciatica presentOther chronic painPain of both shoulder jointsPain in left shoulder 3 Ren Ruelas. [address] [place], [address], [place]. tel:[phone] [facility], [address], [place], [place], [id number], [place] tel:[phone] Speculator Other lack of coordinationChronic midline low back pain, unspecified whether sciatica presentOther chronic pain 0 3 Ren Jessenia. [address] [place], [place], [address], [place]. tel:[phone] [facility], [address], [place], [place], [address], [place] tel:[phone] Speculator Other lack of coordination Aug- 2 Ren Jessenia. [address] [place], [place], [address], [place]. tel:[phone] [facility], [address], [place], [place], [address], [place] tel:[phone] Speculator Other chronic painOt her lack of coordination Aug- 2 Ren Jessenia. [address] [place], [place], [address], [place]. tel:[phone] [facility], [address], [place], [place], [address], [place] tel:[phone] Speculator Other lack of coordinationChronic bilateral low back pain, unspecified whether sciatica presentOther chronic pain Aug- 2 Ren Jessenia. [address] [place], [place], [address], [place]. tel:[phone] [facility], [address], [place], [place], [address], [place] tel:[phone] Speculator Muscle weakness (generalized) Aug- 2 Ren Jessenia. [address] [place], [place], [address], [place]. tel:[phone] [facility], [address], [place], [place], [address], [place] tel:[phone] Speculator Oropharyngeal dysphagia Aug- 2 Casebrain Sofiya. [address] [place], [place], [address], [place]. tel:[phone] [facility], [address], [place], [place], [address], [place] tel:[phone] Speculator Other lack of coordination Dec-1 3-202 2 Ren Ruelas. [address] [place], [place], [address], [place]. tel:[phone] [facility], [address], [place], [place], [address], [place] tel:[phone] Speculator Other lack of coordination Dec-0 8-202 2 Ren Jessenia. [address] [place], [place], [address], [place]. tel:[phone] [facility], [address], [place], [place], [address], [place] tel:[phone] Speculator Oropharyngeal dysphagia Dec-0 7- 2 Kelsey Arriaza. [address] [facility] [place], [address], [place]. tel:[phone] [facility], [address], [place], [place], [address], [place] tel:[phone] Speculator Alteration in performance of activities of daily living Dec-0 6- 2 Ren Ruelas. [address], [place], [place], [address], [place]. tel:[phone] [facility], [address] [facility], [place], [place], [address], [place] tel:[phone] Speculator OV (chief complaint) DM type 2 with diabetic peripheral neuropathyLong term (current) use of insulinLong-term (current) use of injectable non-insulin antidiabetic drugs Dec-0 6- 2 Pedro Luis Crystal. [address] [place], [address], [place]. tel:[phone] [facility], [address], [place], [place], [address], [place] tel:[phone] Speculator Alteration in performance of activities of daily living Dec-0 2-202 2 Ren Ruelas. [address], [place], [place], [address], [place]. tel:[phone] [facility], [address] [facility] 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, [place], [place], [address], [place] tel:[phone] Speculator Encounter for rehabilitation evaluation 0 2 Ren Ruelas. [address], [place], [place], [address], [place]. tel:[phone] [facility], [address] [facility], [place], [place], [address], [place] tel:[phone] Speculator Dysphagia, unspecifi ed typeFeeding difficultiesEncounter for nutritional assessment 2 Normile Dia. [address] [place], [address], [place]. tel:[phone] [facility], [address] [facility] [facility], [place], [place], [address], [place] tel:[phone] Speculator Other chronic pain 2 Uribe Lynette. [address] [place] [address], [id number], [place]. tel:[phone] [facility], [address] [facility] [address] [facility], [place], [place], [address], [place] tel:[phone] Speculator PHV (chief complaint) Bilateral shoulder pain, unspecified chronicity 2 Pedro Luis Crystal. [address] [place], [address], [place]. tel:[phone] [facility], [address] [facility] [address], [place], [place], [address], [place] tel:[phone] Speculator Other chronic pain 2 Baldemar Landrum. [address] [place], [address], [place]. tel:[phone] [facility], [address], [place], [place], [address], [place] tel:[phone] Speculator Difficulty in walkin g, not elsewhere classifiedOther chronic pain 2 Uribe Lynette. [address] [place], [place], [address], [place]. tel:[phone] [facility], [address], [place], [place], [address], [place] tel:[phone] Speculator No Information 2 No Information [facility], [address], [place], [place], [address], [place] tel:[phone] Speculator Difficulty in walkin g, not elsewhere classifiedOther chronic pain 2 Uribe Lynette. [address] [place], [place], [address], [place]. tel:[phone] [facility], [address] [facility], [place], [place], [address], [place] tel:[phone] Speculator Muscle weakness (generalized) 2 Ren Ruelas. [address], [place], [place], [address], [place]. tel:[phone] [facility], [address], [place], [place], [address], [place] tel:[phone] Speculator Difficulty in walkin g, not elsewhere classifiedOther chronic painMuscle weakness (generalized) 2 Uribe Lynette. [address] [place], [place], [address], [place]. tel:[phone] [facility], [address], [place], [place], [address], [place] tel:[phone] Speculator Chronic bilateral lo w back pain, unspecified whether sciatica presentOther chronic pain Oct-1 2- 2 Baldemar Landrum. [address] [facility] [place], [address], [place]. tel:[phone] [facility], [address] [facility], [place], [place], [address], [place] tel:[phone] Speculator Difficulty in walkin g, not elsewhere classifiedOther chronic pain Oct-0 5 2 Uribe Lynette. [address] [place], [place], [id number], [place]. tel:[phone] [facility], [address], [address], [place] tel:[phone] Speculator Other chronic painMuscle weakness (generalized) Oct-0 2 Uribe Lynette. [address] [place], [place], [id number], [place]. tel:[phone] [facility], [address] [facility], [place], [place], [address], [place] tel:[phone] Speculator Chronic bilateral lo w back pain, unspecified whether sciatica presentOther chronic painPain of both shoulder jointsPain in left shoulder Sep-2 2 Ren Jessenia. [address] [place], [address], [place]. tel:[phone] [facility], [address] [facility], [place], [place], [address], [place] tel:[phone] Speculator Other chronic pain Sep-2 2 Uribe Lynette. [address] [place], [place], [address], [place]. tel:[phone] [facility], [address] [facility], [place], [place], [address], [place] tel:[phone] Speculator Muscle weakness (generalized) Sep-2 2 Ren Jessenia. [address] [place], [address], [place]. tel:[phone] [facility], [address] [facility], [place], [place], [address], [place] tel:[phone] Speculator Muscle weakness (generalized) Sep-2 2 2 Ren Ruelas. [address] [facility] [place], [address], [place]. tel:[phone] [facility], [address] [facility] [facility], [place], [place], [address], [place] tel:[phone] Speculator Chronic midline low back pain, unspecified whether sciatica presentOther chronic pain Sep-2 0 2 Baldemar Landrum. [address] [place], [place], [address], [place]. tel:[phone] [facility], [address] [facility], [place], [place], [address], [place] tel:[phone] Speculator OV (chief complaint) ÓSCAR (generalized anxiety disorder) Sep-2 0 2 Pedro Luis Crystal. [address] [place], [place], [id number], [place]. tel:[phone] [facility], [address] [facility] [address] [facility], [place], [place], [address], [place] tel:[phone] Speculator Chronic midline low back pain, unspecified whether sciatica presentOther chronic pain Sep-1 2 Baldemar Landrum. [address] [place], [place], [address], [place]. tel:[phone] [facility], [address] [facility] [address] [facility], [place], [place], [address], [place] tel:[phone] Speculator Muscle weakness (generalized)Mild cognitive impairment, so stated Sep-1 2 Ren Ruelas. [address] [place], [place], [address], [place]. tel:[phone] [facility], [address] [facility], [place], [place], [address], [place] tel:[phone] Speculator No Information Sep-1 2 Pedro Luis Bonilla. [address] [place], [place], [address], [place]. tel:[phone] [facility], [address], [place], [place], [address], [place] tel:[phone] Speculator No Information Sep-0 2 Pedro Luis Bonilla. [address] [place], [place], [address], [place]. tel:[phone] [facility], [address], [place], [place], [address], [place] tel:[phone] Speculator Encounter for rehabilitation evaluationChronic bilateral low back pain without sciaticaOther chronic pain Sep-0 2 Baldemar Landrum. [address], [place], [place], [address], [place]. tel:[phone] [facility], [address] [facility], [place], [place], [address], [place] tel:[phone] Speculator Muscle weakness (generalized) Sep-0 2 Ren Jessenia. [address] [place], [place], [address], [place]. tel:[phone] [facility], [address] [facility], [place], [place], [address], [place] tel:[phone] Speculator No Information Aug-2 2 Pedro Luis Crystal. [address] [place], [address], [place]. tel:[phone] [facility], [address], [place], [place], [address], [place] tel:[phone] Speculator Encounter for rehabilitation evaluationMuscle weakness (generalized) Aug-2 2 Ren Jessenia. [address], [place], [place], [address], [place]. tel:[phone] [facility], [address], [place], [place], [address], [place] tel:[phone] Speculator Encounter for nutritional assessment 2 Waldemar Delgado. [address] [facility] [address], [place], [address]. tel:[phone] [facility], [address], [place], [place], [address], [place] tel:[phone] Speculator Encounter for rehabilitation evaluation 2 Ren Ruelas. [address] [facility] [place], [place], [place], [address], [place]. tel:[phone] [facility], [address] [facility] [facility], [place], [place], [address], [place] tel:[phone] Speculator Encounter for rehabilitation evaluation 2 Baldemar Landrum. [address] [facility] [place], [address], [place]. tel:[phone] [facility], [address] [facility] [facility], [place], [place], [address], [place] tel:[phone] Speculator Herpesviral vesicula r dermatitis 2 Pedro Luis Crystal. [address], [place], [place], [address], [place]. tel:[phone] [facility], [address] [facility] [facility], [place], [place], [address], [place] tel:[phone] Speculator Encounter for genera l adult medical examination without abnormal findingsEssential (primary) hypertension 2 Pedro Luis Crystal. [address], [place], [place], [address], [place]. tel:[phone] [facility], [address] [facility], [place], [place], [address], [place] tel:[phone] Speculator PEE (chief complaint) Hypertension, unspecified typeHypercholesteremiaD M type 2 with diabetic peripheral neuropathyLong term (current) use of insulinGastroesophageal reflux disease, unspecified whether esophagitis presentGenital herpes simplex, unspecified siteBipolar 1 disorderHypothyroidism, unspecified typeGAD (generalized anxiety disorder)Schizophrenia, unspecified typeTremor 2 Pedro Luis Crystal. [address] [place], [address], [place]. tel:[phone] [facility], [address] [facility] [place] [address], [id number], [place] tel:[phone] Speculator Hypertension, unspecified typeHypercholesteremiaD M type 2 with diabetic peripheral neuropathyHypothyroidis m, unspecified typeHerpesviral infection, unspecified 2 Dorothea Day. [address] [facility] [place], [address], [place]. tel:[phone] [facility], [address] [facility] [address] [place] [address], [id number], [place] tel:[phone] Speculator Medication course changed 2 Dorothea Day. [address] [place], [address], [place]. tel:[phone] [facility], [address] [facility] [place] [address], [id number], [place] tel:[phone] Speculator No Information 2 No Information [facility], [address] [facility] [address] [place] [address], [id number], [place] tel:[phone] Speculator Intake (chief complaint) Encounter for general adult medical examination without abnormal findings 2 No Information Family History Family Member Type Diagnosis Age At Onset No Information Immunizations Vaccine Date Status Comments Fluzone Quad administered [facility] e: New Immunization Record Payers Payer name Insurance type Covered democrat ID Socrates lee(s) [facility] 16 [id number] [place] [id number] Social History Type Description Quantity Date Captured [...] ordered Referral Referred To: [facility] [address] [facility] [place], [place], [phone] Ordered: Referrals: Internal Medicine. Bonilla ARCINIEGA Appointment date/timeframe: 05/13/2023 ordered Referral Referred To: Bonilla ARCINIEGA [address] [place], [id number] Ordered: Referrals: Cardiology. Bonilla ARCINIEGA Appointment date/timeframe: 10/21/2022 ordered Referral Referred To: Bonilla ARCINIEGA [address] [place], [id number] Ordered: Referrals: Rheumatology. Bonilla ARCINIEGA Appointment date/timeframe: 04/16/2023 ordered Referral Referred To: Bonilla ARCINIEGA [address] [place], [id number] Ordered: Referrals: Dentistry. Bonilla ARCINIEGA Appointment date/timeframe: 12/17/2022 ordered Referral Referred To: Bonilla ARCINIEGA [address] [place], [id number] Ordered: Referrals: Podiatry. Bonilla ARCINIEGA ordered Referral Referred To: Bonilla ARCINIEGA [address] [place], [id number] Ordered: Referrals: Gastroenterology. Bonilla ARCINIEGA Appointment date/timeframe: 04/09/2023 ordered Referral Referred To: Bonilla ARCINIEGA [address] [place], [id number] Ordered: Referrals: Bioprocessing Manufacturing Technician. Bonilla ARCINIEGA ordered Referral Ordered: Referrals: Gynecology. Consult Appointment date/timeframe: 04/30/2022 ordered Future Order: Radiology Order Hi p X-ray; Unilateral, with Pelvis X-ray (2-3 views) ([id number]), Ordered on: Ordered Future Order: Radiology Order TT E Combined, 2D image, spectral Doppler, color flow image ([id number]), Ordered on: Ordered Future Order: Lab Order QUANTIFE KARLEY(R)-TB GOLD PLUS, 1 TUBE ([id number]), Ordered on: Ordered History Of Present Illness Encounter Date Complaint History Of Prese nt Illness Comments: Ppt se en for an acute visit for concerns of chronic bilateral lower extremity swelling. She is seen with PN Ebonie and interpretation was kindly provided by Lisa [...] good weekend per calls kindly placed by senior project controls specialist nursing. Ppt noted to be doing well, [...] notes she is elevating her BLE. OV Comments: Partic ipant is being examined during the COVID-19 Pandemic. Appropriate precautions were used given CDC recommendations and available resources.Ppt seen on request of social work msw who was concerned ppt may be having a shiraz episode. Ppt was roomed and provider was notified at 1:45pm. Upon entering, ppt was speaking with social work msw. Translation was kindly provided by podiatric medicine doctor on site. This provider checked with ppt, who notes she has been having difficulty sleeping, but notes this is a chronic issue. She denies any chest pain, palpitations. She does not recall med changes that occurred per at previous psychiatry visit, these were discussed. At this time, [facility] staff walked in noting ppts ride had arrived for 2pm and there is no ability to delay. This provider was unable to perform further HPI, ROS and had to perform a limited exam.Based on this providers limited exam and the information provided by staff who know her, she appears to be at baseline. Ppt denies SI/HIVM left with ppts prescriber at [facility]. Recommended that ppt come back to see PCP on Thursday to check in regarding symptoms. This was relayed to SW. OV RAJENDRA DREWHPI__62__ year old __female___Lives @ apt Ambulates with walker Diet is unchanged MOLST changes - noneMedications reviewedDiagnoses reviewed Injuries/Illness/Hospitalizations - seen in the ED This fall for pain in multiple joints, there was no significant findings and the ppt was xfer home on prednisone. She was seen in the clinic after and tx with ongoing conservative care. BIPOLAR / ÓSCAR / [place] [facility] is still being utilizedSees counseling every thursdayClonazepam, Haldol, Depakote, trazodone [id number] 7.0% -> 7.9 this fall currently using [...] being seen in clinic todayCarries dx of X1SVLdzjmrhmp treated with Humalog SSI and Lantus She is monitored with CGMRecently she had labs drawn A1c: (04/24/22) 7.0 -> (08/21/22) 7.9We are meeting today to discuss adding trulicity to her regimen She comes to the day program multiple days a week and could receive the med here--CURRENTLYLily translatesI describe the medication and treatment planThe ppt is agreeableROSno N V F Cno polydipsia or polyuriaNo abd pain or stool changesPEGEN female appearing age in NAD nontoxic appearingLUNGS ctabHEART rrr (+)[id number] soft NTEXT no edema soft and NT PHV BESSIE FOREMAN PHVHPIPPt seen in clinic today for PHVShe was seen in the emergency dept No records available prior to visitIt appears she was seen at [place] [facility] for pain yesterday Pain is in [...] 5/5, traps intact and equal bilaterally. OV BESSIEMILA JANSEN CLEARMONT [place] FOREMAN OVHPIIsha translates She is seen in clinic today Ppt with hx of Bipolar, ÓSCAR, SchizophreniaHistorically rx by psychiatrist in [place] Currently klonopin, Depakote, Haldol, trazodoneShe is a patient at [facility] recently moved into her own apartment She reports she likes it She was reported as having increased anxiety yesterdayLiliy translates Ppt reports she feels better today vs yesterday Yesterday she had palpitations None since thenThese happen from czkf-mg-fgsxVITALS HR - 8202 - 96RR - 18BP - 142/80ROSno N V F C CP SOBno ABD PAIN diarrheano cough or difficulty swallowingno rashno palpitations todayPEFemale appearing her ageSpeaks Malaysian translated by [place] HORNDMood stableAffect mildly distrustingSpeaks fluidly Answers are appropriateHEART RRR (+)s8j9Sxrxk CTABExt with trace pedal edema bilaterallyNontoxic appearing LABSDPA - 50.7 TSH - 1.94 PEE HPI_62 ___ year old ___female__Lives in studio apartment [place] with sisterMedications reviewedDiagnoses reviewed Hospitalizations - no significant BIPOLAR/SCHIZOPHRENIA/ÓSCAR counseling/therapy once a weekrx by psychiatrist in [place] hasn't met with a prescriber heremodd affect stable no symptoms nowHLDReports she was on a medication but her doctor took it awayThey "never gave it back Would be agreeable to starting againTHYROIDLast labs were normal so her PCP took it awayCurrently her labs are normalShe does not want to restart unless she has miR3LMMamuoe 48u SC QAM LantusShe reports no hospitalizations 2nd to E5IFXusck opto referral and podiatry referralDenies any wounds [...] apparently last year. She was residing in [place]. She had a number of hospitalizations and there was a tentative plan to place her in long-term care however, her niece and sister intervened and brought her to [place].The patient initially lived with her niece however that did not quite taylor out and she is now living in a studio apartment in [place] with her Sister Nicky. There are pending applications for either a 2 bedroom apartment for the 2 of them to live together or a 1 bedroom for the prospect to live and with the sister living in the same complex. At this point, sister assists her with all necessities. There is a tentative plan for 25.5 hours from [place] however this has not started or been finalized, per the niece.[facility] physicians currently: Primary CARE: [phone]:Dr. Torito OrellanaSpeculator podiatry [phone]:[facility] Hospitalvernon HarperBughlz[address] [phone] as psychiatrist however, is PhD psychologist, I am not sure who is prescribing psychiatric medicationsTimi Ibrahim, PhDShriners Hospitals for [phone]: Mary Jalloh/[phone]:Dr. Rajendra contrerasWor[facility] County Hospital [id number] Hospital , [place]. [phone]:Jaz [address][phone] listedMedications listedPharmacy listedPast medical history and past surgical history listed, apparently had labial cyst or the like in the past and it is recurrent1 of the hospitalizations in [place] has dementia listed as a contributory diagnosis, I am unclear if this is correctRecent hospitalizations:828/-05/23/21: [place] [facility], seemingly psychiatric10/09/21-10/16/21:[facility] health-danger to self, schizophrenia, dementia10/18/21-11/13/21: [place] [facility], lactic acidosis, flank pain, shortness of breath, seemingly followed by a psychiatric admission12/02/21-12/17/21 [facility]:Delusions/hallucinations/disorientationPa risa uses a 4 wheeled walker. [...] appears to be at baseline. Noted that [facility] Counseling reduced her clonazepam to day, discontinued haloperidol and started amitriptyline. Discussion with SW after meeting, noting that the primary intensive care unit registered nurse (cyndi) would like to stop the amitriptyline, given concern for changes in altered mental status.This provider recommended to halve for 7 days and then discontinue. This was relayed by social work msw.Safety questions were completed with ppt, denying any SI/HI, notes her depression/anxiety is stable. Feels safe to go home and to follow up on Thursday Related to Bipolar 1 disorder debrox in SE program [id number] as needed canal still patent - ppt [...] medication levothyoroxine stopp ed in sep 11 nekavitha reported it was dcd by specialisttrend TSH T4 today and re-eval as needed Related to Hypothyroidism, unspecified type no symptomsabd exam benigntaking PPI for GI ppx with good effectre-eval as needed Related to Gastroesophageal reflux disease without esophagitis lantus and humalog see T2DM Rela quentin to assisted current use of insulin truliticty addedcont inues with humalog and basal insulinself dcd CGM - using POCs at [id number] fasting this [facility] referrals to opto and poda1c and [...] unspecified type mood affect stablefo llowed by [facility] Counselingcont haldol, depakote and prn klonopineval ongoing Related to Schizophrenia, unspecified type cont [facility]ation and mood at baseline cont current medication regimen (see Bipolar)eval ongoing Related to ÓSCAR (generalized anxiety disorder) mood affect stablefo llowed by [facility] CounselingEKG this week forp Qtc [...] and humalog see T2DM 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 a1C 7.0% -> 7.9curre ntly using lantus 48u SC QD and humalog SSiwill add trulicity to be admin @ day programtitrate up as neededcont to trend sugars via CGM at centerroutine labs at next [place] far as periph neuropathy:ppt followed by [...] NADpt will have appt made today at [facility] by dexter is agreeable to this raymondhe will continue to come to program M-Fno changes at this time cont current medication mgmt eval ongoing Related to ÓSCAR (generalized anxiety disorder) not tremulousness on exammonitor for EPS/tremors given use of psychoactive medsno changes at this timere-eval as needed Related to Tremor mood affect stablept has no questions or concerns regarding psych dxfollowed by [facility] Counselingmsg left for info on [...] questions or concerns regarding psych dxfollowed by [facility] Counselingmsg left for info on upcoming appt and name of prescriberEKG pending tomorrow for Haldol use and baseline QTcdepakote lvl wnl @ 50.4cont haldol, depakote and prn klonopineval ongoing Related to ÓSCAR (generalized anxiety disorder) mood affect stablept has no questions or concerns regarding psych dxfollowed by [facility] Counselingmsg left for info on upcoming appt and name of prescriberEKG pending tomorrow for Haldol use and baseline QTcdepakote lvl wnl @ 50.4cont haldol, depakote and prn klonopineval ongoing Related to Bipolar 1 disorder chronic dxfollowed b y GYNtakes antiviral for flare upsno pain or lesions at this timeno questions or concernsre-eval as neededfollowup TELECOMMUNICATIONS CLERK consult summary as indicated Related to Genital herpes simplex, unspecified site Aug-11-2022 no symptomsabd exam benigntaking PPI for GI ppx with good effectre-eval as needed Related to Gastroesophageal reflux disease, unspecified whether esophagitis present 04/25/22a1C 7.0%BUN/Cr -- 0.88/74currently using lantus 48u SC QDwill trend CMP and b8kCoedk as needed for hypoglycemiafoot exam with decrease in monofilament examotherwise foot exam wnlwill consult podiatry, optometry eval ongoing Related to DM type 2 with diabetic peripheral neuropathy 04/25/22a1C 7.0%BUN/Cr -- 0.88/74currently using lantus 48u SC QDwill trend CMP and p3aPvfzy as needed for hypoglycemiafoot exam with decrease in monofilament examotherwise foot exam wnlwill consult podiatry, optometry eval ongoing Related to assisted (current) use of insulin 04/25/22AST/ALT 8/10 ( [...] Goal Continued 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 Bessie will continue to live in the community environment with support from [facility]ACE and family for 6 months. Patient Goal Entered in error Bessie is at risk for longterm placement related to schizophrenia and bipolar I [...] communication related to language barrier- patient is Malaysian speaking Bessie will continue to function in her current environment, have her medical needs met, and maintain current level of social interactions through next review. Patient Goal Continued
--- NOTE | 2025-01-06 13:35 | A.OFFVIS_ITS ---
Vital Signs 01/06/25 13:38 Height 5 ft 6 in Weight 179 lb 7.3 oz BMI 29.0 BP 134/66 Blood Pressure Location Lt brachial Position Sitting Pulse 74 Pulse Source Pulse Oximeter Intake Visit Reasons: 3m follow up Intake Note: 3 mth f/up Subway Repair Supervisor Required: Yes Subway Repair Supervisor Language: Easement Man Name: han/malagasy/[id number] Accompanied by: Self / Same As Patient Allergies Penicillins Allergy (Intermediate, Verified 12/20/24 09:26) rash/swelling shellfish derived Allergy (Intermediate, Verified 12/20/24 09:26) Swelling, Hives Medication List - Last Reconciled 01/06/25 by PARRIS Head acetaminophen 500 mg PO Q6H PRN 30 days acyclovir 400 mg PO TID 30 days amitriptyline 10 mg PO BEDTIME 90 days amlodipine 2.5 mg (1/2 x 5 mg) PO DAILY 90 days atorvastatin 10 mg PO DAILY 90 days blood sugar diagnostic (Nok Nok LabsStyle Test strips) As directed three times a day blood-glucose meter ([employer]ru[employer] Autocode Meter kit) As directed blood-glucose meter (FreeStyle Lite Meter kit) As directed divalproex ER 1,000 mg (2 x 500 mg) PO BEDTIME 90 days dulaglutide (Trulicity) 1.5 mg (0.5 mL) subcut QWEEK 30 days furosemide 40 mg PO DAILY insulin aspart U-100 (Novolog FlexPen U-100 Insulin aspart) 10 units (0.1 mL) subcut TID 90 days insulin glargine (Lantus Solostar U-100 Insulin) 48 units (0.48 mL) subcut DAILY 90 days lancets (Heroic Lancets) Use 1 lancet four times a day lisinopril 40 mg (2 x 20 mg) PO DAILY 90 days miscellaneous medical supply Grab bars for shower miscellaneous; omeprazole 20 mg PO DAILY pen needle, diabetic (1st Tier Unifine Pentips) Use 1 pen needle three times a day polyethylene glycol 3350 (Miralax) 17 grams PO DAILY 30 days ropinirole 0.5 mg (2 x 0.25 mg) PO BID 90 days sennosides-docusate sodium 8.6-50 mg (Senna with Docusate Sodium) 2 tab-caps (2 x 8.6-50 mg) PO BEDTIME 60 days tolterodine ER 2 mg PO DAILY 90 days trazodone 100 mg PO BEDTIME walker As directed HPI HPI 3m follow up: Details: Bessie is a 64-year-old female with past medical history of hypertension, hyperlipidemia, diabetes, abnormal EKG with septal Q-waves, who reported chest discomfort on last visit and underwent an echocardiogram and nuclear stress test and now presents for follow-up. Today she reports she has been feeling good since her last visit here in September. She no longer gets chest discomfort. She describes having shortness of breath for 3 days in October for unclear reason. She has not had recurrent issues with shortness of breath since that time. She denies any cough or recent illness. No PND, orthopnea. Her leg edema has improved some since the reduction in amlodipine dose. She tells me she does not eat salt in her diet. No palpitations, lightheadedness, presyncope, syncope, falls. Taking meds as directed. Certified cage supervisor used. [facility] Medical History Osteoporosis Hypertension History of blood clot in brain Hypercholesteremia HSV-2 (herpes simplex virus 2) infection Arthritis Rheumatic fever Schizophrenia GERD (gastroesophageal reflux disease) Depression HTN (hypertension) Hyperlipemia Diabetes Surgical History Hx of colonoscopy History of tubal ligation History of cystostomy History of 2 sections Family History Sister Age: 63 Osteoarthritis Mother Cancer of lymphatic and hematopoietic tissue, Onset Age: 83 COVID-19 Father FH: heart attack Brother FH: heart attack Other Diabetes HTN (hypertension) Mental health disorder Social History Household Members: Family Household Members Other:: sister Housing: Apartment Do you presently have visiting nurse or other home services: No Alcohol intake: never Patient Tobacco Use Status: Never used Tobacco e-Cigarette/Vaping Use: Never Used Second Hand Smoke Exposure: No Advance Directives Date on File: 12/05/21 service: No Current occupational status: disabled Sexual orientation: Straight/Heterosexual Gender identity: Female Cognitive needs: Yes (walker) Hearing needs: No Vision needs: Yes (glasses) Female Reproductive History Menstrual Age of Menarche: 12 Review of Systems Const All systems reviewed & are unremarkable except as noted in HPI and below Denies chills, Denies fatigue, Denies fever(s), Denies frequent falls, Denies weakness, Denies weight gain and Denies weight loss ENT Denies dizziness Card Denies chest pain, Denies leg edema, Denies lightheadedness, Denies palpitations, Denies dyspnea and Denies dyspnea on exertion Resp Denies cough, Denies dyspnea and Denies dyspnea on exertion GI Denies hematochezia Musc Denies abnormal gait, Denies muscle weakness, Denies numbness, Denies radiating pain into limb and Denies tingling Neuro Denies abnormal gait, Denies dizziness, Denies frequent falls, Denies numbness, Denies tingling and Denies weakness Endo Denies fatigue and Denies palpitations Physical Exam Vital Signs: Last Vital Signs Pulse 74 01/06/25 13:38 BP 134/66 01/06/25 13:38 BMI result Body Mass Index 29.0 Const General: cooperative, healthy appearing, comfortable and no acute distress Orientation/consciousness: patient oriented x3 Neck Neck: Yes normal visual inspection Resp Effort & Inspection: normal respiratory effort Auscultation: clear to auscultation bilaterally, no crackles, no rales, no rhonchi and no wheezes Cardio Jugular venous distension: no JVD Rate: regular rate Rhythm: regular rhythm Heart sounds: S1 normal heart sound present, S2 normal heart sound present, no murmurs and no rubs Neuro General: patient oriented x3 Extrem General: Yes normal to inspection and No no pedal edema Psych Appearance: grossly normal Mental Status: mental status grossly normal Speech and movement: Normal speech and movement present Results Reviewed Results Reviewed: -Echocardiogram done 10/31/2024 shows technically limited study, EF 45-50%, normal valve Dopplers -Pharmacological nuclear stress test done 11/22/2024 showing likely normal myocardial perfusion imaging, EF 55%. Assessment & Plan Assessment & Plan (1) Chest discomfort: Code(s): R07.89 - Other chest pain Category: Medical Plan: Reports of chest tightness when doing activities like cleaning her house. She has no known cardiac history. She does have cardiac risk factors of hypertension, hyperlipidemia, diabetes and family history. Nuclear stress test was recently done showing normal myocardial perfusion imaging, normal EF. An echocardiogram was also done showing technical limited study, EF 45-50%. She has no signs of heart failure on examination and no longer reports chest discomfort. The reduction in EF could be false since the study was technically difficult. Signs and symptoms of angina and heart failure were discussed. Will change her amlodipine to metoprolol XL to help with neurohormonal modulation if in fact her EF is low. Will plan a recheck of echo prior to her next visit. Cardiology follow-up 1 year, sooner if needed. (2) Abnormal EKG: Code(s): R94.31 - Abnormal electrocardiogram [ECG] [EKG] Category: Medical Plan: Prior EKG showed sinus rhythm with septal Q-wave. EKG done last visit is not showing a clear septal Q-wave. This could be related to lead placement. (3) HTN (hypertension): Code(s): I10 - Essential (primary) hypertension Category: Medical Qualifiers: Hypertension type: primary hypertension Qualified Code(s): I10 - Essential (primary) hypertension Plan: Blood pressure goal less than 130/80. Good at present time. She is on a low- dose amlodipine which I will stop. She does have some mild leg ankle edema still. Will start on metoprolol XL 25 mg daily. Continue Lasix. (4) Hypercholesteremia: Code(s): E78.00 - Pure hypercholesterolemia, unspecified Category: Medical Plan: ideal LDL goal less than 70 in patient with diabetes. labs done 10/09/23 shows LDL 67. Continue atorvastatin. (5) Bilateral leg edema: Code(s): R60.0 - Localized edema Category: Medical Plan: On prior visit she had significant lower leg edema with discomfort in her feet on ambulation. Her amlodipine had been as high as 10 mg daily, she is currently on 2.5 mg daily. Taking her off amlodipine as above and starting metoprolol. (6) Abnormal echocardiogram findings without diagnosis: Code(s): R93.1 - Abnormal findings on diagnostic imaging of heart and coronary circulation Category: Medical Plan Time spent on chart review, documentation, interview and assessment Orders: Orders CA echo transthoracic complete 11 Months R93.1 - Abnormal findings on diagnostic imaging of heart and coronary circulation Medications: New metoprolol succinate ER Stop amlodipine Start metoprolol 25 mg PO DAILY 30 tabs 5RF Discontinued amlodipine dose reduced Discontinued Reason: Doctor's Order 2.5 mg (1/2 x 5 mg) PO DAILY 90 days 45 tabs 1RF I10 - Essential (primary) hypertension Coding Level of Care Code Est Pt Level 3 (98344) Complex EM visit Add On G2211 Diagnoses Chest discomfort R07.89 Abnormal EKG R94.31 Primary hypertension I10 Hypertension type: primary hypertension Hypercholesteremia E78.00 Bilateral leg edema R60.0 Abnormal echocardiogram findings without diagnosis R93.1 Time Spent (min) 28
[2025-01-06 13:38] VITALS: BP 134/66; PULSE 74; BMI 29.0
== END 2025-01-06 14:24 | disposition home or self-care (01) ==
LOC: HO.HCS 12:06
PROVIDERS: PCP Internal Medicine; Visit Provider Nurse Practitioner Family
DX: R07.89 Other chest pain (principal); R94.31 Abnormal electrocardiogram [ECG] [EKG]; I10 Essential (primary) hypertension; E78.00 Pure hypercholesterolemia, unspecified; R60.0 Localized edema; R93.1 Abnormal findings on diagnostic imaging of heart and coronary circulation
CPT/HCPCS: 99213; G2211

== ENCOUNTER → 2025-01-06 12:05 | Outpatient (BNVA) | payer OTHER, SELFPAY | PROVIDERS: PCP Internal Medicine; Visit Provider Nurse Practitioner Family | DX: R07.89 Other chest pain (principal); R94.31 Abnormal electrocardiogram [ECG] [EKG]; R60.0 Localized edema; R93.1 Abnormal findings on diagnostic imaging of heart and coronary circulation; I10 Essential (primary) hypertension; E78.00 Pure hypercholesterolemia, unspecified | CPT/HCPCS: 99212 ==

== ENCOUNTER 2025-01-13 00:38 | Emergency (ER) | payer OTHER, SELFPAY ==
--- NOTE | 2025-01-13 | ECG_ITS ---
Test Reason : EPIGASTRIC PAIN Blood Pressure : */* mmHG Vent. Rate : 59 BPM Atrial Rate : 59 BPM P-R Int : 146 ms QRS Dur : 98 ms QT Int : 454 ms P-R-T Axes : 39 -14 23 degrees QTcB Int : 449 ms Sinus bradycardia Minimal voltage criteria for LVH, may be normal variant ( R in aVL ) cannot exclude old Septal infarct , age undetermined Abnormal ECG When compared with ECG of 13-Apr-2022 12:47, Septal infarct is now Present Referred By: Generic ED Physician Electronically Signed By: ERIC CARDOZO
--- NOTE | ~2025-01-13 | CT_ITS ---
CLINICAL HISTORY: Upper abdominal pain etiology CT Abdomen and Pelvis WO Contrast COMPARISON: None FINDINGS: Detail limited by artifacts. Calcified right lower lobe granuloma. Normal liver. Normal spleen. Normal kidneys. Normal adrenal glands. Normal pancreas. No visible cholelithiasis. No biliary dilation. No evidence of bowel obstruction or colitis. Normal appendix. Unremarkable bladder. Unremarkable uterus. No ascites. No pneumoperitoneum. No lymphadenopathy. No acute fracture. No abdominal aortic aneurysm. IMPRESSION: No acute findings. This document has been electronically signed by: Elias Whitney MD on 01/13/2025 04:43:25
[2025-01-13 00:48] VITALS: BP 184/73; PULSE 64; RESP 18; TEMP 36.1; O2SAT 100; BMI 28.2
[2025-01-13 01:15] LABS: MANUAL DIFF FLAG NO
[2025-01-13 01:23] LABS: Basophils Percent Auto 0.2 % (0-2); Eosinophils Percent Auto 0.3 % (0-4); Hematocrit 36.1 % (37.0-47.0); Hemoglobin 12.3 g/dl (12.0-16.0); Imm Gran Abs Auto 0.04 X10*3/uL (0.00-0.03); Imm Gran Pct Auto 0.3 % (0.0-0.4); Lymphocytes Percent Auto 16.8 % (20-40); Mean Corpuscular HGB Conc 34.1 g/dl (31.0-35.0); Mean Corpuscular Hemoglobin 28.5 pg (27.0-33.0); Mean Corpuscular Volume 83.8 fL (80.0-98.0); Mean Platelet Volume 10.4 fL (9.4-12.3); Monocytes Absolute Auto 0.6 X10*3/uL (0.1-1.2); Monocytes Percent Auto 5.3 % (2-11); Neutrophils Absolute Auto 9.3 x10*3/uL (2.0-8.3); Neutrophils Percent Auto 77.1 % (45-73); Platelet Count 259 X10*3/uL (160-400); Red Blood Count 4.31 X10*6/uL (4.20-5.50); Red Cell Distribution Width 13.4 % (11.0-16.0)
[2025-01-13 01:40] LABS: Alanine Aminotransferase 13 U/L (0-31); Albumin Level 3.9 g/dL (3.5-5.0); Alkaline Phosphatase 65 U/L (39-117); Anion Gap 18 (12-20); Aspartate Amino Transferase 16 U/L (5-31); Bilirubin Direct 0.1 mg/dL (0.0-0.5); Bilirubin Total 0.3 mg/dL (0.0-1.0); Blood Urea Nitrogen 26 mg/dL (9-16); Calcium 9.3 mg/dL (8.4-10.2); Carbon Dioxide 23 mmol/L (22-29); Chloride 99 mmol/L (96-108); Creatinine Clr Calc Pharmacy 74.4; Estimated Glomerular Filt Rate > 60; Glucose Random 181 mg/dL (60-115); Lipase 18 U/L (8-78); Potassium 3.7 mmol/L (3.3-5.1); Sodium 136 mmol/L (135-145); Total Protein 6.7 g/dL (6.5-8.0)
[2025-01-13 02:23] VITALS: BP 169/71; PULSE 64; RESP 16; TEMP 36.9; O2SAT 100
--- NOTE | 2025-01-13 02:41 | ED.ABDPAIN ---
HPI - Abdominal Pain General Chief Complaint: Abdominal Pain Stated Complaint: abd pain Time Seen by Provider: 01/13/25 02:41 Source: patient Limitations: no limitations History of Present Illness ED Provider: HPI narrative: Patient with chronic abdominal issues for last 3 years complaining of nausea vomiting for last 2 days vomited about 6 times total had this problem off and on in the past no fever no chills no urinary symptoms normal bowel movement Related Data Previous Rx's ?Medication ?Instructions ?Recorded miscellaneous medical supply See Rx Instructions miscellaneous 01/22/22 .COMPLEX #2 ea trazodone 100 mg tablet 100 mg PO BEDTIME for insomnia #30 03/21/22 tabs amitriptyline 10 mg tablet 10 mg PO BEDTIME 90 days #90 tabs 05/13/23 ropinirole 0.25 mg tablet 0.5 mg (2 x 0.25 mg) PO BID 90 05/13/23 days #360 tabs acetaminophen 500 mg capsule 500 mg PO Q6H PRN fever 30 days 06/24/23 #120 caps blood-glucose meter (Prodigy #1 ea 02/08/24 Autocode Meter kit) lancets 28 gauge (MPOWER Mobileigy Lancets) #100 ea 02/08/24 walker #1 ea 07/26/24 divalproex 500 mg tablet,extended 1,000 mg (2 x 500 mg) PO BEDTIME 11/15/24 release 24 hr 90 days #180 tabs lisinopril 20 mg tablet 40 mg (2 x 20 mg) PO DAILY 90 days 11/15/24 #180 tabs omeprazole 20 mg capsule,delayed 20 mg PO DAILY #90 caps 11/15/24 release blood-glucose meter (FreeStyle #1 ea 11/29/24 Lite Meter kit) atorvastatin 10 mg tablet 10 mg PO DAILY 90 days #90 tabs 12/13/24 furosemide 40 mg tablet 40 mg PO DAILY #90 tabs 12/13/24 insulin aspart U-100 100 unit/mL 10 unit (0.1 mL) subcut TID 90 12/13/24 (3 mL) subcutaneous pen (Novolog days #27 mL FlexPen U-100 Insulin aspart) insulin glargine 100 unit/mL (3 48 unit (0.48 mL) subcut DAILY 90 12/13/24 mL) subcutaneous pen (Lantus days #43.2 mL Solostar U-100 Insulin) blood sugar diagnostic (FreeStyle #100 ea 12/20/24 Test strips) polyethylene glycol 3350 17 17 g PO DAILY 30 days #510 grams 12/20/24 gram/dose oral powder (Miralax) sennosides 8.6 mg-docusate sodium 2 tab-cap (2 x 8.6-50 mg) PO 12/20/24 50 mg tablet (Senna with Docusate BEDTIME 60 days #120 tabs Sodium) tolterodine 2 mg capsule,extended 2 mg PO DAILY 90 days #90 caps 01/04/25 release 24 hr dulaglutide 1.5 mg/0.5 mL 1.5 mg (0.5 mL) subcut QWEEK 30 01/06/25 subcutaneous pen injector days #2.5 mL (Trulicity) metoprolol succinate 25 mg 25 mg PO DAILY #30 tabs 01/06/25 tablet,extended release 24 hr pen needle, diabetic 32 gauge x #100 ea 01/06/25 (1st Tier Unifine Pentips) acyclovir 400 mg tablet 400 mg PO TID 30 days #90 tabs 01/07/25 ondansetron 4 mg disintegrating 4 mg PO Q6-8H PRN nausea and 01/13/25 tablet vomiting #7 tabs Allergies Allergy/AdvReac Type Severity Reaction Status Date / Time Penicillins Allergy Intermediate rash/swelli Verified 01/13/25 00:50 ng shellfish derived Allergy Intermediate Swelling, Verified 01/13/25 00:50 Hives Review of Systems Review of Systems Yes all other systems are reviewed and are negative PMFSH Past Medical History Medical History Osteoporosis Hypertension History of blood clot in brain Hypercholesteremia HSV-2 (herpes simplex virus 2) infection Arthritis Rheumatic fever Schizophrenia GERD (gastroesophageal reflux disease) Depression HTN (hypertension) Hyperlipemia Diabetes Surgical History Hx of colonoscopy History of tubal ligation History of cystostomy History of 2 sections Family History Family History Sister Age: 63 Osteoarthritis Mother Cancer of lymphatic and hematopoietic tissue, Onset Age: 83 COVID-19 Father FH: heart attack Brother FH: heart attack Other Diabetes HTN (hypertension) Mental health disorder Social History Social History Household Members: Family Household Members Other:: sister Housing: Apartment Do you presently have visiting nurse or other home services: No Alcohol intake: never Patient Tobacco Use Status: Never used Tobacco e-Cigarette/Vaping Use: Never Used Second Hand Smoke Exposure: No Advance Directives Date on File: 12/05/21 service: No Current occupational status: disabled Sexual orientation: Straight/Heterosexual Gender identity: Female Cognitive needs: Yes (walker) Hearing needs: No Vision needs: Yes (glasses) Physical Exam ED Vital Signs: Vital Signs - 24 hr 01/13/25 00:48 01/13/25 02:23 01/13/25 04:57 Temperature 97.0 F 98.5 F 97.0 F Pulse Rate 64 64 68 Respiratory Rate 18 16 16 Blood Pressure 184/73 H 169/71 H 156/51 H Pulse Oximetry 100 100 100 Oxygen Delivery Method Room Air Room Air Room Air BMI result Body Mass Index 28.2 Appearance: Alert. Oriented X3. No acute distress. Eyes: No pallor or icterus ENT: Pharynx normal. Oral Mucosa moist Neck: Normal inspection. Neck supple. CVS: Normal heart rate and rhythm. Pulses normal. Respiratory: No respiratory distress. Equal air entry bilateral, no wheezing/rales/rhonchi Abdomen: Soft and mild tenderness in epigastric area. Bowel sounds are present, no mass palpable, no CVA tenderness Skin: Skin warm and dry. Normal skin color. Normal skin turgor. Extremities: No lower extremity edema. No calf tenderness Neuro: Oriented X 3. No motor deficit. Medical Decision Making Medical Decision Making [facility] Narrative: Patient with nonspecific upper abdominal pain with history of gastritis and vomiting labs are stable do CT scan to rule out stone or pancreatitis CT scan negative for acute will discharge patient home no nausea no vomiting at this time Differential Diagnosis Differential Diagnoses: The differential diagnosis associated with the presentation includes Gastritis/pancreatitis/gallstones Lab Data [facility] Lab Attestation statement: I reviewed the patient's lab results. 01/13/25 01:11 01/13/25 01:11 Labs: Lab Results 01/13/25 Range/Units 01:11 WBC 12.0 H (4.8-10.8) X10*3/uL RBC 4.31 (4.20-5.50) X10*6/uL Hgb 12.3 (12.0-16.0) g/dl Hct 36.1 L (37.0-47.0) % MCV 83.8 (80.0-98.0) fL MCH 28.5 (27.0-33.0) pg MCHC 34.1 (31.0-35.0) g/dl RDW 13.4 (11.0-16.0) % Plt Count 259 (160-400) X10*3/uL MPV 10.4 (9.4-12.3) fL Immature Gran % (Auto) 0.3 (0.0-0.4) % Neut % (Auto) 77.1 H (45-73) % Lymph % (Auto) 16.8 L (20-40) % [place] % (Auto) 5.3 (2-11) % Eos % (Auto) 0.3 (0-4) % Baso % (Auto) 0.2 (0-2) % Lymph # (Auto) 2.0 (1.2-4.9) X10*3/uL [place] # (Auto) 0.6 (0.1-1.2) X10*3/uL Eos # (Auto) 0.0 (0.0-0.4) X10*3/uL Baso # (Auto) 0.0 (0.0-0.2) X10*3/uL Abs Immat Gran (auto) 0.04 H (0.00-0.03) X10*3/uL Absolute Neuts (auto) 9.3 H (2.0-8.3) x10*3/uL Absolute Nucleated RBC 0.000 (0.0-0.012) X10*3/uL Nucleated RBC % (auto) 0.0 (0.0-0.2) /100WBC Sodium 136 (135-145) mmol/L Potassium 3.7 (3.3-5.1) mmol/L Chloride 99 (96-108) mmol/L Carbon Dioxide 23 (22-29) mmol/L Anion Gap 18 (12-20) BUN 26 H (9-16) mg/dL Creatinine 0.79 (0.5-1.4) mg/dL Estim Creat Clear Calc 74.4 Estimated GFR > 60 Random Glucose 181 H (60-115) mg/dL Calcium 9.3 (8.4-10.2) mg/dL Total Bilirubin 0.3 (0.0-1.0) mg/dL Direct Bilirubin 0.1 (0.0-0.5) mg/dL AST 16 (5-31) U/L ALT 13 (0-31) U/L Alkaline Phosphatase 65 (39-117) U/L Total Protein 6.7 (6.5-8.0) g/dL Albumin 3.9 (3.5-5.0) g/dL Lipase 18 (8-78) U/L Independent Interpretation I performed an independent interpretation of an: CT Scan Radiology Impression Discussion of test interpretation with radiology: I have reviewed the radiologist's reading. Radiologist Impression: NAD Medications Administered Discontinued Medications Generic Name Dose Route Start Last Admin Trade Name Freq PRN Reason Stop Dose Admin Al Hydroxide/Mg Hydroxide 30 ml 01/13/25 03:29 01/13/25 04:07 Magnesium Hydrox/Alum Hydrox 30 Ml Oral.Susp PO 01/13/25 03:30 30 ml ONCE ONE Administration Ondansetron HCl 4 mg 01/13/25 02:50 01/13/25 03:25 Ondansetron Odt 4 Mg Tab.Rapdis TRANSLINGU 01/13/25 02:51 4 mg ONCE ONE Administration Discharge Plan Discharge Clinical Impression: Acute gastritis Patient Disposition: Home, Self-Care Instructions: Gastritis (ED) Additional Instructions: Drink plenty of fluids Continue your omeprazole Medicine for nausea as prescribed Follow up with your PCP Prescriptions: New ondansetron 4 mg tablet,disintegrating 4 mg PO Q6-8H PRN (Reason: nausea and vomiting) Qty: 7 0RF No Action miscellaneous medical supply Misc See Rx Instructions miscellaneous .COMPLEX Qty: 2 0RF Rx Instructions: Grab bars for shower miscellaneous; trazodone 100 mg tablet 100 mg PO BEDTIME Qty: 30 0RF acetaminophen 500 mg capsule 500 mg PO Q6H PRN (Reason: fever) 30 Days Qty: 120 1RF (SVETLANA) lian Misc See Rx Instructions .Route Qty: 1 0RF Rx Instructions: As directed omeprazole 20 mg capsule,delayed release(DR/EC) 20 mg PO DAILY Qty: 90 0RF lisinopril 20 mg tablet 40 mg PO DAILY 90 Days Qty: 180 0RF divalproex 500 mg tablet extended release 24 hr 1,000 mg PO BEDTIME 90 Days Qty: 180 0RF (DME) blood-glucose meter [FreeStyle Lite Meter] Kit See Rx Instructions .Route Qty: 1 0RF Rx Instructions: As directed insulin aspart U-100 [Novolog FlexPen U-100 Insulin] 100 unit/mL (3 mL) insulin pen 10 unit subcut TID 90 Days Qty: 27 0RF atorvastatin 10 mg tablet 10 mg PO DAILY 90 Days Qty: 90 0RF insulin glargine [Lantus Solostar U-100 Insulin] 100 unit/mL (3 mL) insulin pen 48 unit subcut DAILY 90 Days Qty: 43.2 0RF furosemide 40 mg tablet 40 mg PO DAILY Qty: 90 3RF (DME) FreeStyle Test Strip See Rx Instructions .Route Qty: 100 6RF Rx Instructions: As directed three times a day tolterodine 2 mg capsule,extended release 24hr 2 mg PO DAILY 90 Days Qty: 90 1RF Trulicity 1.5 mg/0.5 mL pen injector 1.5 mg subcut QWEEK 30 Days Qty: 2.5 0RF (DME) pen needle, diabetic [1st Tier Unifine Pentips] 32 gauge x 5/32 needle See Rx Instructions .Route Qty: 100 0RF Rx Instructions: Use 1 pen needle three times a day acyclovir 400 mg tablet 400 mg PO TID 30 Days Qty: 90 0RF amitriptyline 10 mg tablet 10 mg PO BEDTIME 90 Days Qty: 90 1RF ropinirole 0.25 mg tablet 0.5 mg PO BID 90 Days Qty: 360 1RF (DME) blood-glucose meter [Prodigy Autocode Meter] Kit See Rx Instructions .Route Qty: 1 0RF Rx Instructions: As directed (DME) lancets [Prodigy Lancets] 28 gauge misc See Rx Instructions .Route Qty: 100 11RF Rx Instructions: Use 1 lancet four times a day metoprolol succinate 25 mg tablet extended release 24 hr 25 mg PO DAILY Qty: 30 5RF Rx Instructions: Stop amlodipine Start metoprolol sennosides-docusate sodium [Senna with Docusate Sodium] 8.6-50 mg tablet 2 tab-cap PO BEDTIME 60 Days Qty: 120 2RF Rx Instructions: Please take 2 tab every day at bedtime polyethylene glycol 3350 [Miralax] 17 gram/dose powder 17 g PO DAILY 30 Days Qty: 510 3RF Interventions: ED Discharge Assessment Last Done: 01/13/25 05:57 Discharge Date/Time: 01/13/25 06:05 Print Language: Hebrew
[2025-01-13] MEDS: Ondansetron ODT 4 MG TAB.RAPDIS TRANSLINGU (03:25)
[2025-01-13] MEDS: Magnesium Hydrox/Alum Hydrox 30 ML ORAL.SUSP PO (04:07)
[2025-01-13 04:57] VITALS: BP 156/51; PULSE 68; RESP 16; TEMP 36.1; O2SAT 100
[2025-01-13 05:57] VITALS: BP 156/51; PULSE 68; RESP 16; TEMP 36.1; O2SAT 100
== END 2025-01-13 06:05 | disposition home or self-care (01) ==
PROVIDERS: Emergency Provider Internal Medicine
DX: K29.00 Acute gastritis without bleeding (principal); R10.13 Epigastric pain; R11.2 Nausea with vomiting, unspecified; E11.9 Type 2 diabetes mellitus without complications; I10 Essential (primary) hypertension; E78.00 Pure hypercholesterolemia, unspecified
CPT/HCPCS: 36415; 74176; 80048; 80076; 83690; 85025; 93005; 99284

== ENCOUNTER → 2025-01-13 01:05 | Outpatient (BNV) | payer OTHER, SELFPAY | PROVIDERS: Emergency Provider Internal Medicine; Visit Provider Internal Medicine | DX: R00.1 Bradycardia, unspecified (principal) | CPT/HCPCS: 93010 ==

== ENCOUNTER → 2025-01-13 03:29 | Outpatient (BNV) | payer OTHER, SELFPAY | PROVIDERS: Emergency Provider Internal Medicine; Visit Provider Radiology Diagnostic Radiology | DX: R10.10 Upper abdominal pain, unspecified (principal) | CPT/HCPCS: 74176 ==

== ENCOUNTER 2025-01-19 10:32 | Inpatient (IN) | payer OTHER, SELFPAY ==
[2025-01-19] VITALS (7 sets, daily range): BP systolic 117–166; BP diastolic 64–77; PULSE 96–118; RESP 18–24; TEMP 2.9–37.9; O2SAT 94–100; BMI 28.2
--- NOTE | ~2025-01-19 | MR_ITS ---
EXAMINATION: MRCP HISTORY: abd pain, elevated LFTs COMPARISON: Correlation is made with a CT of the abdomen and an abdominal ultrasound dated 01/19/2025. TECHNIQUE: Axial gradient echo and coronal haste T2 with fat saturation images were obtained through the abdomen. 3D MRCP Reconstructed images and thick slab imaging of the biliary tree were obtained. FINDINGS: There is no significant loss of signal intensity within the liver on opposed phase imaging to suggest steatosis. There is no evidence of cholelithiasis. There is a small amount of pericholecystic fluid, as well as fluid surrounding the descending duodenum and in the bilateral perinephric spaces. The common bile duct is normal in caliber. No intraluminal filling defects are identified to suggest choledocholithiasis. The pancreatic duct is normal in caliber. The spleen and adrenal glands are unremarkable. No retroperitoneal lymphadenopathy is seen in the upper abdomen. MR/MR MRCP IMPRESSION: 1. No evidence of cholelithiasis or choledocholithiasis. 2. Nonspecific pericholecystic fluid, as well as fluid surrounding the descending duodenum, and in the perinephric spaces. Findings could be secondary to acute pancreatitis involving the pancreatic head or duodenal ulcer disease. Acute cholecystitis appears less likely given lack of cholelithiasis or a positive sonographic Mendieta sign on recent ultrasound. Clinical correlation is recommended. Electronically signed by: Rajendra Nuñez MD 01/20/2025 01:21 PM EDT
--- NOTE | ~2025-01-19 | CT_ITS ---
EXAMINATION: CT ABDOMEN PELVIS WITH IV CONTRAST HISTORY: ? gallstone pancreatitis COMPARISON: There are no prior studies for comparison. TECHNIQUE: CT scan of the abdomen and pelvis was performed following administration of 85 mL Omnipaque 350 using standard departmental protocol. Coronal and sagittal reformatted images were generated and reviewed. Oral contrast material was not administered at the request of the referring physician. This CT exam was performed with one or more of the following dose reduction techniques: automated exposure control, adjustment of the mA and/or kV according to patient size, use of iterative reconstruction technique. DLP: 695 mGy-cm FINDINGS: LOWER CHEST: Again seen is a calcified granuloma at the right lung base. The visualized left lung base is clear. There is no pleural effusion. CARDIOVASCULATURE: The heart is normal in size. There is no pericardial effusion. LIVER: The liver is normal in size and contour. No liver mass is identified. The hepatic and portal veins are patent. GALLBLADDER / BILE DUCTS: There is inflammatory stranding about the gallbladder and mild pericholecystic fluid. No calcified stones are identified. There is no intra or extrahepatic biliary ductal dilatation. SPLEEN: The spleen is normal in size. No focal splenic lesion is identified. PANCREAS: There is mild inflammatory stranding about the pancreas compatible with acute pancreatitis. The pancreas enhances normally. There is no pancreatic ductal dilatation. ADRENAL GLANDS: Within normal limits. KIDNEYS/RETROPERITONEUM: No renal calculi are identified. There is no hydronephrosis. No renal masses are identified. LYMPH NODES: No abdominal or pelvic lymphadenopathy. VASCULATURE: The abdominal aorta is normal in caliber. MESENTERY/PERITONEUM: No free fluid. No masses. There is no free intraperitoneal gas. STOMACH: The stomach is unremarkable. SMALL BOWEL: The small bowel is normal in caliber. COLON: The colon is unremarkable. APPENDIX: Normal. URINARY BLADDER/PELVIC ORGANS: The urinary bladder is unremarkable. The uterus is unremarkable. BONES / SOFT TISSUES: No suspicious bony or soft tissue abnormalities. CT/CT abdomen pelvis w IV con IMPRESSION: Mild peripancreatic inflammatory stranding and fluid, compatible with acute interstitial pancreatitis. There is inflammatory stranding and fluid about the gallbladder without evidence of calcified stones. Findings could represent acute cholecystitis. This could be further evaluated with ultrasound. Electronically signed by: Rajendra Nuñez MD 01/19/2025 02:42 PM EDT RP
--- NOTE | ~2025-01-19 | US_ITS ---
CLINICAL HISTORY: ? cholecystitis on CT, also elevated LFTs --- Additional Notes or Special Instructi ons: GB CBD ONLY US abdomen limited Comparison: CT/SR - CT ABDOMEN PELVIS WO IV CON - 01/13/25 03:39 EDT Findings: There is focal thickening of the gallbladder wall measuring 7 mm. Trace pericholecystic fluid is present. Negative sonographic dowling's sign. IMPRESSION: Findings consistent with acute cholecystitis in the appropriate clinical setting. This document has been electronically signed by: Ora Lora MD on 01/19/2025 19:00:15
--- NOTE | ~2025-01-19 | CT_ITS ---
EXAMINATION: CT PANCREAS WITHOUT AND WITH IV CONTRAST HISTORY: pancreatitis COMPARISON: Comparison is made with the prior examination dated 01/19/2025. Correlation is also made with an abdominal ultrasound dated 01/19/2025 and an MRCP and HIDA scan dated 01/20/2025. TECHNIQUE: CT scan of the abdomen was performed before and after the administration of 85 mL Omnipaque 350 using standard departmental protocol. Postcontrast images were obtained in the arterial and portal venous phases. Coronal and sagittal reformatted images were generated and reviewed. Oral contrast material was not administered at the request of the referring physician. This CT exam was performed with one or more of the following dose reduction techniques: automated exposure control, adjustment of the mA and/or kV according to patient size, use of iterative reconstruction technique. DLP: 783 mGy-cm FINDINGS: LOWER CHEST: The visualized lung bases are clear. There are new small bilateral pleural effusions. CARDIOVASCULATURE: The heart is normal in size. There is no pericardial effusion. LIVER: The liver is normal in size and contour. No liver mass is identified. The hepatic and portal veins are patent. GALLBLADDER / BILE DUCTS: There is mild pericholecystic fluid which is less than on prior studies. No calcified gallstones are identified. There is no intra or extrahepatic biliary ductal dilatation. SPLEEN: The spleen is normal in size. No focal splenic lesion is identified. PANCREAS: The pancreas is unremarkable in appearance. The previously seen fluid adjacent to the descending duodenum is no longer identified. No peripancreatic inflammatory stranding is seen. There is no pancreatic mass or ductal dilatation. No pancreatic calcifications are noted. ADRENAL GLANDS: Within normal limits. KIDNEYS/RETROPERITONEUM: No renal calculi are identified. There is no hydronephrosis. No renal masses are identified. LYMPH NODES: No abdominal lymphadenopathy. VASCULATURE: The abdominal aorta is normal in caliber. MESENTERY/PERITONEUM: No free fluid. No masses. There is no free intraperitoneal gas. STOMACH: The stomach is collapsed, limiting evaluation. SMALL BOWEL: The visualized small bowel is normal in caliber. COLON: The visualized portion of the colon is unremarkable. BONES / SOFT TISSUES: No suspicious bony or soft tissue abnormalities. CT/CT pancreas 3-phase IMPRESSION: 1. New small bilateral pleural effusions. 2. No CT evidence of acute pancreatitis. 3. Small amount of pericholecystic fluid which has decreased since the prior study. Please see prior HIDA scan and ultrasound reports for additional imaging assessment of the gallbladder. 4. The previously seen fluid about the descending duodenum is no longer identified. Electronically signed by: Rajendra Nuñez MD 01/24/2025 02:33 PM EDT
--- NOTE | ~2025-01-19 | NM_ITS ---
CLINICAL HISTORY: ?acute cholecystitis HEPATOBILIARY SCINTIGRAPHY Comparison: US - US ABDOMEN LIMITED - 01/19/25 16:[address]/SR - CT ABDOMEN PELVIS WO IV CON - 01/13/25 03:39 EDT Findings: 5.0 mCi Technetium 99m mebrofenin was administered intravenously. Serial imaging up to 102 minutes: Uptake in the liver with no visible uptake in the common bile duct, gallbladder or small bowel. Multiple images at 4 hours: Persistent liver uptake. No visible uptake in the common bile duct, gallbladder or small bowel. Impression: 1. No gallbladder uptake up to 4 hours following isotope administration is consistent with acute cholecystitis. 2. Findings suggestive of medical cholestasis. 3. In the absence of abnormal common bile ductal dilatation on anatomical imaging, the absence of uptake on scintigraphy is most likely from medical cholestasis rather than ductal obstruction. This document has been electronically signed by: Edelmira Reyes DO on 01/20/2025 19:42:20
[2025-01-19 11:19] LABS: Hematocrit 41.5 % (37.0-47.0); Hemoglobin 13.8 g/dl (12.0-16.0); Mean Corpuscular HGB Conc 33.3 g/dl (31.0-35.0); Mean Corpuscular Hemoglobin 28.3 pg (27.0-33.0); Mean Platelet Volume 10.2 fL (9.4-12.3); Platelet Count 244 X10*3/uL (160-400); Red Blood Count 4.88 X10*6/uL (4.20-5.50); Red Cell Distribution Width 13.2 % (11.0-16.0)
[2025-01-19 11:24] LABS: Appearance Urine Clear; Color Urine Yellow; Glucose Urine UA 250 mg/dL (Negative); Leukocyte Esterase Urine Negative (Negative); Nitrite Urine Negative (Negative); PH >= 9.0 (5.0-9.0); Specific Gravity - Urine 1.015 (1.005-1.025); Urine Blood Negative (Negative); Urine Ketones 40 mg/dL (Negative); Urine Protein Trace mg/dL (Neg-Trace)
[2025-01-19 11:33] LABS: Alanine Aminotransferase 255 U/L (0-31); Albumin Level 4.1 g/dL (3.5-5.0); Alkaline Phosphatase 211 U/L (39-117); Anion Gap 17 (12-20); Aspartate Amino Transferase 309 U/L (5-31); Bilirubin Total 3.4 mg/dL (0.0-1.0); Blood Urea Nitrogen 18 mg/dL (9-16); Calcium 9.4 mg/dL (8.4-10.2); Carbon Dioxide 26 mmol/L (22-29); Chloride 100 mmol/L (96-108); Creatinine Clr Calc Pharmacy 58.7; Estimated Glomerular Filt Rate 55; Glucose Random 260 mg/dL (60-115); Potassium 3.3 mmol/L (3.3-5.1); Sodium 140 mmol/L (135-145); Total Protein 7.2 g/dL (6.5-8.0)
[2025-01-19 11:42] LABS: Lipase 916 U/L (8-78)
[2025-01-19 11:45] LABS: SLIDE REVIEW MANUAL DIFF
[2025-01-19 11:50] LABS: Neutrophils Percent Manual 74 % (45-73)
[2025-01-19 11:59] LABS: Band Neutrophils Percent 23 % (3-5); Lymphocytes Absolute Manual 0.1 X10*3/uL (1.2-4.9); Lymphocytes Percent Manual 1 % (20-40); Monocytes Absolute Manual 0.2 X10*3/uL (0.1-1.2); Monocytes Percent Manual 2 % (2-11); Neutrophils Absolute Manual 11.6 X10*3/uL (2.0-8.3)
[2025-01-19 12:00] LABS: Acanthocytes 3+ (>5) /OIF; RBC Morphology NOTED; Toxic Vacuolation PRESENT
[2025-01-19 12:01] LABS: Platelet Estimate NORMAL (NORMAL); Platelet Morphology Comment NORMAL
[2025-01-19 12:13] LABS: Influenza A PCR NEGATIVE (Negative); Influenza B PCR NEGATIVE (Negative); Resp Syncy Virus RNA Qual PCR NEGATIVE (Negative); SARS COV2 PCR INHOUSE NEGATIVE (Negative)
--- NOTE | 2025-01-19 12:15 | PC.NURSE ---
Patient with chronic abdominal issues for last 3 years complaining of nausea vomiting for last 2 days vomited about 6 times total had this problem off and on in the past no fever no chills no urinary symptoms normal bowel movement on 01/13/25 and was discharge on medication she was not able to afford. Patient presents today with continued abdominal pain. Patient alert and oriented. Primarily frisian speaking. electronic device monitor applied and stach noted. Lungs clear bilat. Repiratiions even and non-labored. Abdomen soft, with positive bowel sounds. c/o upper abdominal pain. No significant tenderness noted. Positive pedal pulses with no edema.
--- NOTE | 2025-01-19 12:44 | ED.GENADULT ---
HPI - General Adult General Chief complaint: Abdominal Pain Stated complaint: stomach pain Time Seen by Provider: 01/19/25 12:44 History of Present Illness ED Provider: Som THURSTON narrative: The patient is a 65-year-old woman who says she has not been feeling very well for several days. She came to the hospital 6 days ago with a complaint of upper abdominal pain. She had a negative workup and was discharged with a presumed diagnosis of gastritis. Her symptoms returned last night and were much worse and comes back to the hospital today. She has had nausea and vomiting. She does not think she has had a fever. She has had no diarrhea. No chest pain or shortness of breath. No urinary symptoms. Her surgical history is 2 C-sections. Related Data Home Medications ?Medication ?Instructions ?Recorded ?Confirmed amitriptyline 10 mg tablet 5 mg PO BEDTIME 01/19/25 01/19/25 amlodipine 5 mg tablet 2.5 mg PO DAILY 01/19/25 01/19/25 dulaglutide 1.5 mg/0.5 mL 1.5 mg subcut FR 01/19/25 01/19/25 subcutaneous pen injector (Trulicity) ketorolac 0.5 % eye drops 1 drp ophthalmic (eye) QID 01/19/25 01/19/25 polyethylene glycol 3350 17 17 g PO DAILY Constipation 01/19/25 01/19/25 gram/dose oral powder (Miralax) ropinirole 0.25 mg tablet 1 mg PO BID 01/19/25 01/19/25 sennosides 8.6 mg-docusate sodium 1 tab PO Q48H 01/19/25 01/19/25 50 mg tablet (Senna with Docusate Sodium) Previous Rx's ?Medication ?Instructions ?Recorded acetaminophen 500 mg capsule 500 mg PO Q6H PRN fever 30 days 06/24/23 #120 caps blood-glucose meter (Prodigy #1 ea 02/08/24 Autocode Meter kit) lancets 28 gauge (Prodigy Lancets) #100 ea 02/08/24 walker #1 ea 07/26/24 divalproex 500 mg tablet,extended 1,000 mg (2 x 500 mg) PO BEDTIME 11/15/24 release 24 hr 90 days #180 tabs lisinopril 20 mg tablet 40 mg (2 x 20 mg) PO DAILY 90 days 11/15/24 #180 tabs omeprazole 20 mg capsule,delayed 20 mg PO DAILY #90 caps 11/15/24 release blood-glucose meter (FreeStyle #1 ea 11/29/24 Lite Meter kit) atorvastatin 10 mg tablet 10 mg PO DAILY 90 days #90 tabs 12/13/24 furosemide 40 mg tablet 40 mg PO DAILY #90 tabs 12/13/24 insulin aspart U-100 100 unit/mL 10 unit (0.1 mL) subcut TID 90 12/13/24 (3 mL) subcutaneous pen (Novolog days #27 mL FlexPen U-100 Insulin aspart) insulin glargine 100 unit/mL (3 48 unit (0.48 mL) subcut DAILY 90 12/13/24 mL) subcutaneous pen (Lantus days #43.2 mL Solostar U-100 Insulin) blood sugar diagnostic (FreeStyle #100 ea 12/20/24 Test strips) tolterodine 2 mg capsule,extended 2 mg PO DAILY 90 days #90 caps 01/04/25 release 24 hr metoprolol succinate 25 mg 25 mg PO DAILY #30 tabs 01/06/25 tablet,extended release 24 hr pen needle, diabetic 32 gauge x #100 ea 01/06/25 (1st Tier Unifine Pentips) acyclovir 400 mg tablet 400 mg PO TID 30 days #90 tabs 01/07/25 ondansetron 4 mg disintegrating 4 mg PO Q6-8H PRN nausea and 01/16/25 tablet vomiting #7 tabs Allergies Allergy/AdvReac Type Severity Reaction Status Date / Time Penicillins Allergy Intermediate rash/swelli Verified 01/19/25 10:40 ng shellfish derived Allergy Intermediate Swelling, Verified 01/19/25 10:40 Hives Review of Systems Review of Systems: Yes all other systems are reviewed and are negative [facility] Past Medical History Medical History Osteoporosis Hypertension History of blood clot in brain Hypercholesteremia HSV-2 (herpes simplex virus 2) infection Arthritis Rheumatic fever Schizophrenia GERD (gastroesophageal reflux disease) Depression HTN (hypertension) Hyperlipemia Diabetes Surgical History Hx of colonoscopy History of tubal ligation History of cystostomy History of 2 sections Family History Family History Sister Age: 63 Osteoarthritis Mother Cancer of lymphatic and hematopoietic tissue, Onset Age: 83 COVID-19 Father FH: heart attack Brother FH: heart attack Other Diabetes HTN (hypertension) Mental health disorder Social History Social History Household Members: Family Household Members Other:: sister Housing: Apartment Do you presently have visiting nurse or other home services: No Alcohol intake: never Patient Tobacco Use Status: Never used Tobacco e-Cigarette/Vaping Use: Never Used Second Hand Smoke Exposure: No Advance Directives: Yes Advance Directives on File: Yes Advance Directives Date on File: 12/05/21 Do you have a plan to hurt others: No Plan service: No Current occupational status: disabled Sexual orientation: Straight/Heterosexual Gender identity: Female Cognitive needs: Yes (walker) Hearing needs: No Vision needs: Yes (glasses) Physical Exam ED Vital Signs: Vital Signs - 24 hr 01/19/25 10:38 01/19/25 12:40 01/19/25 13:37 Temperature 98.2 F 37.3 F L Pulse Rate 110 H 114 H 110 H Respiratory Rate 18 22 H 24 H Blood Pressure 166/77 H 155/73 H 117/72 Pulse Oximetry 100 98 98 Oxygen Delivery Method Room Air Room Air Room Air 01/19/25 14:14 01/19/25 15:00 01/19/25 15:26 Temperature 99.9 F 99.8 F 100.2 F Pulse Rate 118 H 105 H 107 H Respiratory Rate 20 20 19 Blood Pressure 129/72 144/71 H 124/68 Pulse Oximetry 97 97 96 Oxygen Delivery Method Room Air Room Air Room Air 01/19/25 18:26 Temperature 98.8 F Pulse Rate 96 Respiratory Rate 24 H Blood Pressure 143/64 H Pulse Oximetry 94 Oxygen Delivery Method Room Air BMI result Body Mass Index 28.2 Const Other: The patient is awake and alert. She is pleasant and cooperative. She looks somewhat unwell HENMT Other: Face is symmetrical, mucous membranes moist, Eyes General: appearance normal, both eyes and all related structures Neck Neck: Yes no JVD Resp Effort & Inspection: normal respiratory effort Auscultation: clear to auscultation bilaterally Cardio Rate: regular rate Rhythm: regular rhythm Heart sounds: S1 normal heart sound present and S2 normal heart sound present GI Other: There is upper abdominal tenderness across the upper abdomen and the right upper quadrant. Skin Other: Skin is pale and dry Neuro Other: The patient is awake and alert with a normal mental status. Cranial nerves are grossly intact. She moves her extremities normally and appropriately. Extrem Other: No peripheral edema Medications Administered Generic Name Dose Route Start Last Admin Trade Name Freq PRN Reason Stop Dose Admin Piperacillin Sod/Tazobactam 100 mls @ 200 mls/hr 01/19/25 20:30 01/19/25 21:33 Sod 4.5 gm/ Sodium Chloride IV Infused Q6H CASANDRA Infusion Lactated Ringer's 1,000 mls @ 100 mls/hr 01/19/25 20:30 01/19/25 21:33 Lr IVCONT 100 mls/hr .Q10H CASANDRA Infusion Discontinued Medications Generic Name Dose Route Start Last Admin Trade Name Freq PRN Reason Stop Dose Admin Ceftriaxone Sodium 2 gm 01/19/25 12:59 01/19/25 13:16 Ceftriaxone Sodium 2 Gm Vial IVPUSH 01/19/25 13:00 2 gm ONCE ONE Administration Sodium Chloride 1,000 mls @ 999 mls/hr 01/19/25 13:00 01/19/25 14:47 Ns IV 01/19/25 14:00 Infused .Q1H1M CASANDRA Infusion Metronidazole 500 mg in 100 mls @ 100 mls/hr 01/19/25 12:59 01/19/25 14:48 Flagyl IV 01/19/25 13:58 Infused ONCE ONE Infusion Lactated Ringer's 1,000 mls @ 999 mls/hr 01/19/25 15:00 01/19/25 16:47 Lr IV 01/19/25 16:00 Infused .Q1H1M CASANDRA Infusion Sodium Chloride 1,000 mls @ 999 mls/hr 01/19/25 16:45 01/19/25 16:48 Ns IV 01/19/25 17:45 Not Given .Q1H1M CASANDRA Lactated Ringer's 1,000 mls @ 999 mls/hr 01/19/25 17:00 01/19/25 18:00 Lr IV 01/19/25 18:00 Infused .Q1H1M CASANDRA Infusion Iohexol 100 ml 01/19/25 14:24 01/19/25 14:25 Iohexol 350 Mg/Ml 100 Ml Infus..Btl IV 01/19/25 14:25 85 ml ONCE ONE Administration Medical Decision Making Medical Decision Making [facility] Narrative: The patient is a 65-year-old woman who presents with acute upper abdominal pain that has been bothering her for some time but worse since last night. She had a negative workup for similar symptoms a week ago but today she presents with significant tachycardia. Her laboratory evaluation [place] [address] with 23% bands. She has abnormal LFTs including an elevated bilirubin and elevated transaminases. Also the patient has a significantly elevated lipase. Given the significant bandemia blood cultures were obtained and the patient was started on empiric antibiotics with ceftriaxone and metronidazole. Her lactate was 2.3. She was given IV fluids as well as IV antibiotics. CT scan of the abdomen and pelvis was done. I was expecting to find evidence of gallstone pancreatitis. Although there were findings of possible cholecystitis and there were findings of pancreatitis there were no gallstones, choledocholithiasis, or dilated biliary ducts. An ultrasound was done that showed similar findings. Dr. James of General surgery was consulted who was recommending a HIDA scan and admission to the hospitalist service with ongoing antibiotics and supportive care. I also discussed the case with Dr. Boucher of Gastroenterology who agreed with this plan. The patient was admitted to the hospitalist service. Lab Data 01/19/25 11:09 01/19/25 11:09 Labs: Lab Results 01/19/25 01/19/25 01/19/25 Range/Units 11:09 13:09 15:23 WBC 12.0 H (4.8-10.8) X10*3/uL RBC 4.88 (4.20-5.50) X10*6/uL Hgb 13.8 (12.0-16.0) g/dl Hct 41.5 (37.0-47.0) % MCV 85.0 (80.0-98.0) fL MCH 28.3 (27.0-33.0) pg MCHC 33.3 (31.0-35.0) g/dl RDW 13.2 (11.0-16.0) % Plt Count 244 (160-400) X10*3/uL MPV 10.2 (9.4-12.3) fL Immature Gran % (Auto) Cancelled Neut % (Auto) Cancelled Lymph % (Auto) Cancelled Rincon % (Auto) Cancelled Eos % (Auto) Cancelled Baso % (Auto) Cancelled Lymph # (Auto) Cancelled Rincon # (Auto) Cancelled Eos # (Auto) Cancelled Baso # (Auto) Cancelled Abs Immat Gran (auto) Cancelled Absolute Neuts (auto) Cancelled Absolute Nucleated RBC 0.000 (0.0-0.012) X10*3/uL Nucleated RBC % (auto) 0.0 (0.0-0.2) /100WBC Neutrophils % (Manual) 74 H (45-73) % Band Neutrophils % 23 H (3-5) % Lymphocytes % (Manual) 1 L (20-40) % Monocytes % (Manual) 2 (2-11) % Abs Neuts (Manual) 11.6 H (2.0-8.3) X10*3/uL Lymphocytes # (Manual) 0.1 L (1.2-4.9) X10*3/uL Monocytes # (Manual) 0.2 (0.1-1.2) X10*3/uL Toxic Vacuolation PRESENT Platelet Estimate NORMAL (NORMAL) Plt Morphology Comment NORMAL RBC Morphology NOTED Acanthocytes (Spur) 3+ (>5) /OIF Smear Tech's Comments MANUAL DIFF Sodium 140 (135-145) mmol/L Potassium 3.3 (3.3-5.1) mmol/L Chloride 100 (96-108) mmol/L Carbon Dioxide 26 (22-29) mmol/L Anion Gap 17 (12-20) BUN 18 H (9-16) mg/dL Creatinine 1.00 (0.5-1.4) mg/dL Estim Creat Clear Calc 58.7 Estimated GFR 55 Random Glucose 260 H (60-115) mg/dL Lactic Acid 2.3 H* (0.5-2.0) mmol/L Lactic Acid F/U @ 2Hr 3.0 H* (0.5-2.0) mmol/L Lactic Acid F/U @ 4Hr (0.5-2.0) mmol/L Calcium 9.4 (8.4-10.2) mg/dL Total Bilirubin 3.4 H (0.0-1.0) mg/dL Direct Bilirubin 2.2 H (0.0-0.5) mg/dL AST 309 H (5-31) U/L ALT 255 H (0-31) U/L Alkaline Phosphatase 211 H (39-117) U/L C-Reactive Protein 1.90 H (< or = 0.50) mg/dL Total Protein 7.2 (6.5-8.0) g/dL Albumin 4.1 (3.5-5.0) g/dL Triglycerides 48 (<150) mg/dL Lipase 916 H (8-78) U/L Urine Color Yellow Urine Appearance Clear Urine pH >= 9.0 (5.0-9.0) Ur Specific [place] 1.015 (1.005-1.025) Urine Protein Trace (Neg-Trace) mg/dL Urine Glucose (UA) 250 H (Negative) mg/dL Urine Ketones 40 (Negative) mg/dL Urine Blood Negative (Negative) Urine Nitrite Negative (Negative) Ur Leukocyte Esterase Negative (Negative) Influenza Type A (PCR) NEGATIVE (Negative) Influenza Type B (PCR) NEGATIVE (Negative) RSV RNA Qual (PCR) NEGATIVE (Negative) SARS-CoV-2 RNA (RT-PCR) NEGATIVE (Negative) 01/19/25 Range/Units 18:44 WBC (4.8-10.8) X10*3/uL RBC (4.20-5.50) X10*6/uL Hgb (12.0-16.0) g/dl Hct (37.0-47.0) % MCV (80.0-98.0) fL MCH (27.0-33.0) pg MCHC (31.0-35.0) g/dl RDW (11.0-16.0) % Plt Count (160-400) X10*3/uL MPV (9.4-12.3) fL Immature Gran % (Auto) Neut % (Auto) Lymph % (Auto) Rincon % (Auto) Eos % (Auto) Baso % (Auto) Lymph # (Auto) Rincon # (Auto) Eos # (Auto) Baso # (Auto) Abs Immat Gran (auto) Absolute Neuts (auto) Absolute Nucleated RBC (0.0-0.012) X10*3/uL Nucleated RBC % (auto) (0.0-0.2) /100WBC Neutrophils % (Manual) (45-73) % Band Neutrophils % (3-5) % Lymphocytes % (Manual) (20-40) % Monocytes % (Manual) (2-11) % Abs Neuts (Manual) (2.0-8.3) X10*3/uL Lymphocytes # (Manual) (1.2-4.9) X10*3/uL Monocytes # (Manual) (0.1-1.2) X10*3/uL Toxic Vacuolation Platelet Estimate (NORMAL) Plt Morphology Comment RBC Morphology Acanthocytes (Spur) /OIF Smear Tech's Comments Sodium (135-145) mmol/L Potassium (3.3-5.1) mmol/L Chloride (96-108) mmol/L Carbon Dioxide (22-29) mmol/L Anion Gap (12-20) BUN (9-16) mg/dL Creatinine (0.5-1.4) mg/dL Estim Creat Clear Calc Estimated GFR Random Glucose (60-115) mg/dL Lactic Acid (0.5-2.0) mmol/L Lactic Acid F/U @ 2Hr (0.5-2.0) mmol/L Lactic Acid F/U @ 4Hr 2.4 H* (0.5-2.0) mmol/L Calcium (8.4-10.2) mg/dL Total Bilirubin (0.0-1.0) mg/dL Direct Bilirubin (0.0-0.5) mg/dL AST (5-31) U/L ALT (0-31) U/L Alkaline Phosphatase (39-117) U/L C-Reactive Protein (< or = 0.50) mg/dL Total Protein (6.5-8.0) g/dL Albumin (3.5-5.0) g/dL Triglycerides (<150) mg/dL Lipase (8-78) U/L Urine Color Urine Appearance Urine pH (5.0-9.0) Ur Specific [place] (1.005-1.025) Urine Protein (Neg-Trace) mg/dL Urine Glucose (UA) (Negative) mg/dL Urine Ketones (Negative) mg/dL Urine Blood (Negative) Urine Nitrite (Negative) Ur Leukocyte Esterase (Negative) Influenza Type A (PCR) (Negative) Influenza Type B (PCR) (Negative) RSV RNA Qual (PCR) (Negative) SARS-CoV-2 RNA (RT-PCR) (Negative) Critical Care Time Critical Care Time Critical Care Time: Yes Total Critical Care Time: 35 Attestation: The patient was critically ill with a high probability of imminent or life-threatening deterioration. ?I spent greater than 30 minutes of discontinuous time evaluating the patient, delivering critical care at the bedside, discussing evaluating data with consultants. ?Critical care time does not include time spent performing separately billable procedures or teaching. ?Time spent performing critical care with 35 minutes. Discharge Plan Discharge Clinical Impression: Pancreatitis, Abnormal LFTs Patient Disposition: Admitted As Inpatient
--- NOTE | 2025-01-19 12:59 | PC.NURSE ---
Sepsis alert initiated.
[2025-01-19] MEDS: 0.9 % Sodium Chloride 1,000 ML 999 ML IV (13:11)
[2025-01-19] MEDS: cefTRIAXone sodium 2 GM VIAL IVPUSH (13:16)
[2025-01-19] MEDS: metroNIDAZOLE/NS 500 MG/100 ML PIGGYBACK 100 MG IV (13:16)
[2025-01-19 13:33] LABS: Lactic Acid 2.3 mmol/L (0.5-2.0)
--- NOTE | 2025-01-19 14:18 | PC.NURSE ---
Sent for abdominal CT
[2025-01-19] MEDS: iohexoL 350 MG/ML 100 ML INFUS..BTL IV (14:25)
[2025-01-19 15:14] LABS: Reflex Lactate? Lactic Acid Added
--- OUTSIDE RECORDS SUMMARY | 2025-01-19 15:45 | XMS_ITS | Continuity of Care Document ---
Author Organization [employer], [facility] Address [address] [place] [address] Phone Care Team Providers Care Lead Cargo Mover Name Role Phone Gerard Valdes CNP Unavailable [...] 26, 67, 70 and 82may occur.Performed at [facility] [id number] [facility] [id number] Panel Description: Microscop ic observation [Identifier] in Cervix by Cyto stain.thin prep Final PAP, THIN PREP WITH IMAGING 2019 12:52:1 1 SEE COMMENT Final Final Cytologic Interpretation ThinPrep Pap Test (Cervical): Satisfactory for evaluation. NEGATIVE FOR INTRAEPITHELIAL LESION OR MALIGNANCY. The cytologic changes of atrophy are noted. [facility]/11/20/2019Interpret [place]ion [place] [address], License number: [id number]. Electronically Signed Out By JASON Steele(ASCP) Date of Last Menstrual Period: (None Given) Other Clinical Conditions:Z11.51 Screening for HPVZ12.4 Screening for malignant neoplasm of cervixPostmenopausal Source of Specimen ThinPrep Pap Test (Cervical) Thin Prep Pap (SUPPLIER QUALITY ENGINEERING MANAGER) Fee Code(s): G0145 The Pap test is a screening test with an inherent, but low,probability of error. The Pap test is primarily effective for thediagnosis and prevention of squamous cell carcinoma. Regular screeningis critical for prevention. ThinPrep liquid-based slides, which meet the Parts Picker criteria forautomated screening, have been screened by the [employer] System(as of 06/07/07) along with an additional manual rescreening by acytotechnologist and, if indicated, by a pathologist. Pathology [employer] [address] [place] [address] [id number] No. [id number] CAP Accreditation No. [id number] Director: Randal Briones M.D. Advance Directives Directive Yes / No Effective Date File Name No Information Encounters Encounter Description Practice Location Reason(s) For Visit Diagnoses Date Provider Providers Copied on Encounter PREV VISIT, EST, AGE 40-64 [email or web address], [address] [place] [address], [id number] , [place] tel:[phone] [facility] annual exam (chief complaint) Encntr for quality assurance consultant exam (general) (routine) w/o abn findingsBreast cancer screeningCervical cancer screeningScreening for HPV (human papillomavirus)[place] ge barrier affecting health care 0 Keisha Gee. [address] [place] [address], [id number] , [place]. tel: [phone] Referring Provider: Gutierrez Collins, [address] [place] [address], [id number] . tel:[phone] PREV VISIT, EST, AGE 40-64 [facility], [address] [place] [address], [id number] , [place] tel: [phone] [facility] annual exam (chief complaint) Routine quality assurance consultant examinationScreening for HPV (human papillomavirus) 5 Geno Ugarte. [address] [place] [address] [place], [place], [id number] . tel: [phone] Referring Provider: Torito Moon, [address] [place] [address] [place], [address] . tel:[phone] OFFICE/OUTPA TIENT VISIT, EST [facility] [employer], [address] [place] [address], [id number] , [place] tel: [phone] [facility] PAP repeat (chief complaint) Symptom associated with female genital organsPap smear cannot exclude high grade squamous intraepithelial lesion (ASC-H) 4 Kwadwo Whitley. [address] [place] [address], [id number] . tel: [phone] Referring Provider: Gutierrez Collins, [address] [place] [address], [id number] . tel:[phone] PREV VISIT, EST, AGE 40-64 [facility], [address] [place] [address], [id number] , [place] tel: [phone] [facility] (chief complaint) Moderate dysplasia of cervix (DESI II)Gynecological Examination 3 Kwadwo Whitley. [address] [place] [address], [id number] . tel: [phone] Referring Provider: Gutierrez Burkett MD W, [address] [place] [address], [id number] . tel:[phone] OFFICE/OUTPA TIENT VISIT, [facility] Belly Ballot [facility], [address] [place] [address], [id number] , [place] tel: [phone] [facility] repeat pap (chief complaint) DYSPLASIA OF CERVIX NOSDYSPLASIA OF CERVIX NOS 3 Kwadwo Whitley. [address] [place] [address], [id number] . tel: [phone] Referring Provider: Gutierrez Burkett MD W, [address] [place] [address], [id number] . tel:[phone] [email or web address], [address] [place] [address], [id number] , [place] tel: [phone] [facility] No Information 3 Kwadwo Whitley. [address] [place] [address], [id number] . tel: [phone] OFFICE/OUTPA TIENT VISIT, [facility] [email or web address], [address] [place] [address], [id number] , [place] tel: [phone] [facility] No Information 3 Kwadwo Whitley. [address] [place] [address], [id number] . tel: [phone] Referring Provider: Gutierrez Collins, [address] [place] [address], [id number] . tel:[phone] OFFICE/OUTPA TIENT VISIT, [facility] [email or web address], [address] [place] [address], [id number] , [place] tel: [phone] [facility] No Information 2 Kwadwo Whitley. [address] [place] [address], [id number] . tel: [phone] Referring Provider: Gutierrez Burkett MD W, [address] [place] [address], [place], [address] . tel:[phone] OFFICE/OUTPA TIENT VISIT, [facility] [email or web address], [address] [place], [place] [address], [place], [place], [id number] , [place] tel: [phone] [facility] No Information 2 Kwadwo Whitley. [address] [place] [address], [place], [place], [id number] . tel: [phone] Referring Provider: Gutierrez Burkett MD W, [address] [place], [place] [address], [place], [address] . tel:[phone] [email or web address], [address] [place], [place] [address], [place], [place], [id number] , [place] tel: [phone] [facility] No Information 2 Kwadwo Whitley. [address] [place] [address], [id number] . tel: [phone] Referring Provider: Gutierrez Burkett MD W, [address] [place], [place] [address], [address] . tel:[phone] OFFICE/OUTPA TIENT VISIT, [facility] [email or web address], [address] [place], [place] [address], [place], [place], [id number] , [place] tel: [phone] [facility] No Information 2 Kwadwo Whitley. [address] [place] [address], [id number] . tel: [phone] Referring Provider: Gutierrez Collins, [address] [place], [address] . tel:[phone] Family History Family Member Type Diagnosis Age At Onset No Information Immunizations Vaccine Date Status Comments Flu (split) (3 yrs or older) administered Note: Invalid documented admin date was . ; Source: Other Provider Payers Payer name Insurance type Covered democrat ID Socrates Galarza (s) [id number] Social History Type Description Quantity Date Captured [...] Surface Area Head Circumference Head Circ. Percentile Wt./Bsosman. Percentile BMI percentile Pulse Ox Inhaled Ox [...] information: ptreturns after 5 years, very limited Swedish-accompanied by her , also limited Swedish. h/o ASC_H pap with neg biopsies, neg pap in 2012, 2013 and 2014. will repeat today. unsure of last mammogram. denies any PMB or quality assurance consultant concerns. Reason For Referral Reason For Referral No Information Plan Of Treatment Date Type Action Status Goal Colonoscopy Scre en. Due on due Goal Mammogram (Scree natalya); Bilateral. Due on due Future Order: Radiology Order Ma mmogram, Screening ([id number]), Ordered on: Ordered Future Order: Lab Order PAP (TP) - IMAGE GUIDED ([id number]), Ordered on: Ordered History Of Present Illness [...] pt returns after 5 years, very limited Swedish-accompanied by her , also limited Swedish. h/o ASC_H pap with neg biopsies, neg pap in 2012, 2013 and 2014. will repeat today. unsure of last mammogram. denies any PMB or quality assurance consultant concerns. annual exam Currently pregna nt: no. [...] Information Instructions Date Instruction Additional Infor chava Patient here for karen diehl annual exam. [...] return to once yearly. Related to Routine quality assurance consultant examination As Above Related to Deirdre hoang for HPV (human papillomavirus) Increase Activity, M onthly Breast Exams at home Related to Routine quality assurance consultant examination Rtn in 6 mos for annual Related to Pap smear cannot exclude high grade squamous intraepithelial lesion (ASC-H) pt to return in April for stef lMilena Related to DYSPLASIA OF CERVIX NOS Assessments Type Assessment Date assessment Encntr for quality assurance consultant exam (general) (r outine) w/o abn findings [...] Mental Status Date Cognitive Assessment Orientation - Odon ed to time, place, person, situation. Patient Care Teams Name Effective Dates (start - stop) Status Members No Information
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
--- OUTSIDE RECORDS SUMMARY | 2025-01-19 15:45 | XMS_ITS | Clinical Summary ---
Author Organization [address] [facility] Address [address] [place] [address] Phone Care Team Providers Care Hydraulic Spinner Name Role Phone Evelia Donald MD Primary Care Provider [phone] Allergies Active Allergy Reactions Criticality Noted Date [...] 10/04/2021 Long-term use of high-risk medication 10/04/2021 [facility] current use of insulin ([facility]24, [facility] V28) 10/04/2021 Lactic acidosis 10/04/2021 Right-sided chest wall pain 10/04/2021 Recurrent falls 10/04/2021 Pyelonephritis 10/04/2021 Obesity 10/04/2021 Sarcoidosis 10/04/2021 Schizoaffective disorder, de pressive type with good prognostic features ([facility] V24, [facility] V28) 10/04/2021 Sinusitis 10/04/2021 Encounter for immunization 10/04/2021 Tremor 10/04/2021 Altered mental state 08/17/2021 Abdominal pain 08/17/2021 DM type 2 (diabetes mellitus , type 2) ([facility] [place], [facility] V28) 05/21/2021 Overview (10/04/2021): x 15 years Necrotizing soft tissue infection 05/18/2021 Sacroiliac pain 11/28/2020 Lumbar facet arthropathy 08/29/2020 DDD (degenerative disc disease), lumbosacral Gastritis 09/28/2018 Acute psychosis ([facility] V24, [facility] V28) 04/23 Anxiety 04/23/2015 Impetigo 04/23/2015 Esotropia of left eye 06/04/2011 Rotary nystagmus 06/04/2011 Strabismic amblyopia 06/04/2011 Hyperthyroidism 02/19/2011 Mixed hyperlipidemia 02/19/2011 Primary open-angle glaucoma(365.11) 08/22/2010 Overview (12/20/2021): Replacing diagnoses that were inactivated after the 12/20/21 IMO import Senile nuclear sclerosis 08/22/2010 Encounters Date Type Department Care Team Description 11/16/2024 10:45 AM EST Office Visit Orthopedic Surgery - [address] [phone] Zeyad Wallace, DPM Diabetic mononeuropathy simplex ([facility] V24, [facility] V28) (Primary Dx); Tinea unguium; Type II diabetes mellitus with peripheral circulatory disorder ([facility] V24, [facility] V28); Acquired hallux valgus of right [...] History Medical History Date Comments Schizophrenia ([facility], [facility]) Diabetes mellitus ([facility], [facility] V[facility]) Disease of thyroid gland Depression Insomnia Anxiety DDD (degenerative disc disease), cervical Psychosis ([facility], [facility] V28) High blood cholesterol level Social History [...] AM EDT Office Visit Orthopedic Surgery - [place] [address] [phone] Zeyad Wallace, DPM [address] [address] Health Maintenance Due Date Last Done Comments Diabetes: Annual Foot Exam 1969 Diabetes: Annual Retina Eye Exam 1969 DTaP,Tdap,and Td Vaccines (1 - Tdap) 1978 Pneumococcal Vaccine: 50+ Years (1 of 2 - PCV) 1978 Zoster Vaccines (1 of 2) 2009 RSV [...] LAB CHEMISTRY METHOD 10/04/2021 9:58 PM EST [facility] Potassium 3.8 3.6 - 5.1 mmol/L LAB CHEMISTRY METHOD 10/04/2021 9:58 PM EST [facility] Chloride 98 98 - 107 mmol/L LAB CHEMISTRY METHOD 10/04/2021 9:58 PM EST [facility] CO2 25 22 - 32 mmol/L LAB CHEMISTRY METHOD 10/04/2021 9:58 PM EST [facility] Anion Gap 14 6 - 18 LAB CHEMISTRY METHOD 10/04/2021 9:58 PM EST [facility] Glucose 369(H) 70 - 99 mg/dL LAB CHEMISTRY METHOD 10/04/2021 9:58 PM [facility] BUN 21(H) 8 - 20 mg/dL LAB CHEMISTRY METHOD 10/04/2021 9:58 PM [facility] Creatinine 1.08 0.60 - 1.30 mg/dL LAB CHEMISTRY METHOD 10/04/2021 9:58 PM [facility] eGFR 55 mL/min/1. 73m2 LAB CHEMISTRY METHOD 10/04/2021 9:58 PM [facility] BUN/Creatinine Ratio 19.4 12.0 - 20.0 LAB CHEMISTRY METHOD 10/04/2021 9:58 PM [facility] Calcium 9.4 8.9 - 10.3 mg/dL LAB CHEMISTRY METHOD 10/04/2021 9:58 PM [facility] AST (SGOT) 8(L) 15 - 41 unit/L LAB CHEMISTRY METHOD 10/04/2021 9:58 PM [facility] ALT (SGPT) 14 7 - 52 unit/L LAB CHEMISTRY METHOD 10/04/2021 9:58 PM [facility] Alkaline Phosphatase 106(H) 32 - 91 unit/L LAB CHEMISTRY METHOD 10/04/2021 9:58 PM [facility] Total Protein 6.9 6.1 - 7.9 g/dL LAB CHEMISTRY METHOD 10/04/2021 9:58 PM [facility] Albumin 4.2 3.5 - 4.8 g/dL LAB CHEMISTRY METHOD 10/04/2021 9:58 PM [facility] Total Bilirubin 0.4 0.3 - 1.2 mg/dL LAB CHEMISTRY METHOD 10/04/2021 9:58 PM [facility] Blood Venous blood specimen / Unknown Venipuncture / Unknown 10/04/2021 8:28 PM EST 10/04/2021 8:33 PM EST Neeta Bae MD LAB BLOOD ORDERABLES Final Resu lt Performing Organization Address [facility] Co de Phone Number LUIS ENRIQUE ARRIOLA [facility] [address] [place] [address] * [place] MAMMO DIGITAL SCREENING BILAT (NB) (08/21/2020 10:11 AM EST) Anatomical Region Laterality Modality Mammography 08/21/2020 10:1 1 AM EST Narrative 08/22/2020 7:12 AM EST EXAMINATION TYPE: [place] Mammo Digital Screening bilat (NB) DATE OF EXAM : 08/21/2020 10:11 AM PATIENT HISTORY: Menarche at age 12. First Full-Term at age 18. Postmenopausal. PRIOR STUDIES: 03/15/2013, 10/25/2014, 11/05/2015, 12/22/2016, 03/22/2018 REASON FOR STUDY: Breast Screening. TECHNIQUE: Digital mammography views were obtained. Computer-aided detection utilizing ConnectureCAD reader has been performed. BREAST COMPOSITION: There [...] PS360 ? FINAL REPORT Dictated By: ??Dulce Lnae MD ??08/22/2020 07:11 Assigned Physician: ??Dulce Lane [...] Digital mammography views were obtained. Computer-aideddetection utilizing ConnectureCAD reader has been performed. BREAST COMPOSITION: There [...] Transcribed by: DISHA 08/22/2020 07:11 Technologist: MAR Gladis Blair MD IMG BI PROCEDURES Final Resu lt from Last 3 Months or Most Recently Relevant to Health Maintenance Insurance [place] - [place] [facility] [employer] Member Subscriber Plan / Payer (Ef fective 2024-Present) Name:Bessie Bhatia Relation to Subscriber:Self Name:Bessie Bhatia Payer ID:[id number] Group ID:Not on file Type:Not on file Address: [address] [place] [address] [place] - [place] [facility] [employer] Member Subscriber Plan / Payer (Ef fective 2024-Present) Name:Bessie Bhatia Relation to Subscriber:Self Name:Bessie Bhatia Payer ID:[id number] Group ID:Not on file Type:Not on file Address: [address] [place] [place] [address] Advance Directives * Full Code - Default [...] currently active code status orders. Care Teams Hydraulic Spinner Relationship Specialty Start Date End Date Evelia Donald MD [address] [place] [address] , [address] [facility] D/B/A: [facility] OTIS De Oliveira PCP - General Internal Medicine 08/30/24
--- OUTSIDE RECORDS SUMMARY | 2025-01-19 15:45 | XMS_ITS | Data Portability ---
Author Organization [facility], autoContract Address [address] [place] [address] Assessment No assessment recorded. Plan of Treatment Reminders Order Date Submit Date Provider Last Modified By Organization Details Last Modified Time Details Appointments None recorded. Lab None recorded. Referral None recorded. Procedures None recorded. Surgeries None recorded. Imaging None recorded. Medication Orders ammonium lactate 12 % lotion 2020 [id number] [address] [facility], [place], [address], 15:37:21 Patient TargetsNo targets recorded. Patient Instructions Encounter Date Encounter Id Patient Instructions Last Modified By Organization Details Last Modified Time 10/18/2020 [id number] 1.) Office visit with DM foot exam [...] regular follow up evaluation by PCP and/or food and beverage coordinator. 6.) Return 3 months for DM check up and comprehensive foot care, sooner if problems. Not available 10/18/2020 12:32:14 01/28/2021 [id number] 1.) Office visit with DM foot exam [...] regular follow up evaluation by PCP and/or food and beverage coordinator. 6.) Return 3 months for DM check up and comprehensive foot care, sooner if problems. Not available 01/28/2021 15:01:30 02/18/2021 [id number] Warranty/Receipt New shoe break-in period Wear your [...] PRN basis. Not available 10/18/2021 09:50:05 05/06/2021 [id number] 1.) Office visit with DM foot exam [...] regular follow up evaluation by PCP and/or food and beverage coordinator. 6.) Return 3 months for DM check up and comprehensive foot care, sooner if problems. Not available 05/07/2021 08:22:47 08/09/2021 [id number] dedo en martillo : instrucciones de cuidado [...] regular follow up evaluation by PCP and/or food and beverage coordinator. 6.) Return 3 months for DM check up and comprehensive foot care, sooner if problems. I am prescribin. 1 Left and 1 Right - Talko Medley S325-1 Black, Hook & Loop depth-inlay [...] Address Organization Details Recorded Time Diabetes mellitus 55466828 Active Min Rogers DPM [address] [place], [address], [facility] 5 12:50:43 Disorder o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 mellitus 899517677 Active 2017 Min Rogers DPM [address] [place], [place], [address] [place] [address] 7, [facility] [employer] [facility] 8 13:27:17 Overweight 633414241 Active 2019 Min Rogers DPM [address] [place], [address], [facility] 0 17:15:07 Uncontrolle d type 2 diabetes mellitus 874774682 Completed 01/21/2018 Min Rogers DPM [address] [place], [place], [address] [place] [address] 7, [facility] 8 13:27:22 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 432226238 Active Min Rogers DPM [address], [place], [address] [place] [address] 7, [facility] [facility] 5 12:39:04 Ingrowing nail 763905211 Active Min Rogers DPM [address] [place], [address], [email or web address] 5 12:39:04 Edema 653529409 Active Min Rogers DPM [address] [place], [address], [facility] [facility] 5 13:32:56 Peripheral venous insufficien cy 83549875 Active Min Rogers DPM [address] [place], [place], [address] [place] [address] 7, [facility] - 1-4 [facility] 5 13:32:56 Pain in limb 70655937 Active Min Rogers DPM [address] [place], [address], [facility] - 1-4 [facility] 5 12:39:04 Hammer toe 766127560 Active Min Rogers DPM [address] [place], [address], [facility] - 1-4 [facility] 5 12:50:43 Acquired cavus deformity of foot 24514765 Active Min Rogers DPM [address] [place], [address], [facility] - 1-4 [facility] 5 12:50:43 Problem Notes None recorded. Procedures Surgical History Date Name Laterality Status Provider Name and Address Organization Details Recorded Time 1 Nail Debridement completed Min Rogers DPM [address] [place], [address], [facility] - 1-4 [facility] 08/09/2021 15:47:04 1 Nail Debridement completed Min Rogers DPM [address] [place], [address], [facility] 05/07/2021 08:22:47 1 Nail Debridement completed Min Rogers DPM [address] [place], [address], [facility] - 1-4 [facility] 01/28/2021 15:00:03 1 Nail Debridement completed Min Rogers DPM [address] [place], [address], [facility] - 1-4 [facility] 10/18/2020 12:32:14 0 Nail Debridement completed Min Rogers DPM [address] [place], [address], [facility] - 1-4 [facility] 07/16/2020 12:25:52 0 Nail Debridement completed Min Rogers DPM [address] [place], [address], [facility] - 1[facility] 04/12/2020 11:12:51 0 Nail Debridement completed Min Rogers DPM [address] [place], [address], [facility] - 1[facility] 01/26/2020 15:11:05 0 Nail Debridement completed Min Rogers DPM [address] [place], [address], [facility] - 1-4 [facility] 10/31/2019 09:07:59 9 Nail Debridement completed Min Rogers DPM [address] [place], [address], [facility] - 1-4 [facility] 08/26/2019 16:10:32 9 Cortisone Injection completed Min Rogers DPM [address] [place], [address], [facility] - 1-4 [facility] 06/09/2019 08:55:55 9 Nail Debridement completed Min Rogers DPM [address] [place], [address], [facility] - 1-4 [facility] 06/09/2019 09:15:28 9 Nail Debridement completed Min Rogers DPM [address] [place], [address], [facility] - 1-4 [facility] 03/10/2019 13:36:34 9 Nail Debridement completed Min Rogers DPM [address] [place], [address], [facility] - 1[facility]4 [facility] 12/28/2018 09:42:50 9 Nail Debridement completed Min Rogers DPM [address] [place], [address], [facility] - 1[facility]4 [facility] 10/19/2018 13:15:54 8 Cortisone Injection completed Min Rogers DPM [address] [place], [address], [facility] - 1[facility]4 [facility] 07/29/2018 11:08:29 8 Nail Debridement completed Min Rogers DPM [address] [facility], [place], [address], [facility] - 1[facility] 07/29/2018 13:09:03 8 Nail Debridement completed Min Rogers DPM [address] [facility], [place], [address], [facility] - 1[facility] 05/13/2018 10:01:58 8 Nail Debridement completed Min Rogers DPM [address] [place], [address], [facility] - 1[facility]4 [facility] 03/04/2018 09:31:43 8 Nail Debridement completed Min Rogers DPM [address] [place], [address], [facility] - 1-4 [facility] 11/26/2017 14:37:36 5 Nail Debridement completed Min Rogers DPM [address] [place], [address], [facility] - 1[facility]4 [facility] 02/01/2015 12:39:04 5 Nail Debridement completed Min Rogers DPM [address] [facility], [place], [address], [facility] - 1-4 [facility] 10/31/2014 13:32:39 4 Nail Debridement completed Min Rogers DPM [address] [place], [address], [facility] - 1[facility]4 [facility] 08/03/2014 10:36:36 4 Nail Debridement completed Min Rogers DPM [address] [place], [address], [facility] - 1[facility]4 [facility] 05/11/2014 10:36:07 4 Nail Debridement completed Min Rogers DPM [address] [place], [address], [facility] - 1[facility]4 [facility] 02/20/2014 09:20:10 4 Nail Debridement completed Gregor Mckeon [facility] 1[facility] 12/07/2013 17:55:59 3 Nail Debridement [facility] 08/15/2013 18:15:52 3 Nail Debridement completed Min Rogers DPM [address] [place], [address], [facility] 05/08/2013 13:57:00 3 Nail Debridement completed Min Rogers DPM [address] [place], [address], [facility] 02/03/2013 13:55:58 3 Nail Debridement completed Min Rogers DPM [address] [place], [address], [facility] 11/15/2012 12:39:57 Imaging Results None recorded. Procedure Notes None recorded. Medical Equipment None Reported. Allergies Allergen ID Allergen Name Allergen Category Reaction Reaction Severity Criticality Documentation Date Start Date Code Code System Note Provider Name and Address Organization Details Recorded Time 921 Product containin g penicilli n (product) medicatio n Not available Not available Not available 10/14/2012 52649 8001 SNOMED [facility] 3 15:13:05 Medications Name Sig [...] Available Not Available No t Available [employer] [place] Lite kit active Not Available Not Available [...] 157.48 cm Min Rogers, SEDRICKM [address] [place], [address], [facility] [employer] 10/18/2020 11:14:48 Date Recorded Body height Provider Name an d Address Organization Details Last Updated DateTime 01/28/2021 157.48 cm Min Rogers, DPM [address] [place], [address], [place] [employer] 01/28/2021 14:38:33 Date Recorded Body height Provider Name an d Address Organization Details Last Updated DateTime 05/06/2021 157.48 cm Min Rogers, DPM [address] [place], [address], [facility] [employer] [facility] 05/06/2021 16:15:17 Date Recorded Body height Provider Name an d Address Organization Details Last Updated DateTime 08/09/2021 157.48 cm Min Rogers, DPM [address] [place], [address], [place] [facility] 08/09/2021 15:31:11 Date Recorded Body height Provider Name an d Address Organization Details Last Updated DateTime 02/18/2021 157.48 cm Min Rogers, DPM [address] [place], [address], [facility] [employer] [facility] 10/18/2021 09:42:13 Social History Question Answer Notes LastModified by Organizat ion Details LastModified Time Tobacco Smoking Status Never Smoker Not Available [employer] 07/06/2020 03:15:47 What Is Your Level Of Alcohol Consumption? None [id number] Information not available 07/06/2020 Are You Blind Or Do You Have Difficulty Seeing? No [id number] Information not available 07/06/2020 Are You Deaf Or Do You Have Serious Difficulty Hearing? No [id number] Information not available 07/06/2020 Which Illicit Or Recreational Drugs Have You Used? Never [id number] Information not available 07/06/2020 What Is Your Occupation? Disabled - Mental Illness [id number] Information not available 07/06/2020 Marital Status [email or web address] Informwillo n not available 10/17/2012 What Was The Date Of Your Most Recent Tobacco Screening? 12/28/2018 [id number] Information not available 07/06/2020 Sex: Unknown Functional Status Question Answer Note LastModified by Organization D etails LastModified Time Do you have difficulty walking or climbing stairs? No [id number] Information not available 07/06/2020 Do you have difficulty doing errands alone? No [id number] Information not available 07/06/2020 Do you have difficulty dressing or bathing? No [id number] Information not available 07/06/2020 Mental Status Question Answer Note LastModified by Organization D etails LastModified Time Do you have difficulty concentrating, remembering or making decisions? No [id number] Information no t available 07/06/2020 Family History Nothing Reported. Medical History Condition Response Diabetes II Y Edema Y Obesity Y Numbness Tingling Y High Cholesterol Y Foot Deformity Y Venous Insufficiency Y Mental Illness Y Hypertension Y Gynecological HistoryNo gynecological history recorded. Obstetrics History GPAL:G 0 P 0 0 0 0 Past Encounters Encounter ID Performer Location Encounter Start Date Encounter Closed Date Diagnosis/Indication Diagnosis SNOMED-CT Code Diagnosis ICD10 Code Diagnosis Note [id number] Min Rogers DPM [facility] [address] [place] [address] 10/14/2012 15:09:24 10/18/2012 09:39:25 [id number] Min Rogers DPM [facility] [place] [address] 11/11/2012 13:38:31 11/15/2012 16:52:19 [id number] Min Rogers [facility] [address] [place] [address] 02/03/2013 13:22:42 02/03/2013 14:21:55 [id number] Min Rogers [facility] [address] [place] [address] 05/06/2013 13:22:19 05/06/2013 13:57:43 [id number] Min Rogers [facility] [address] [place] [address] 08/15/2013 10:36:55 08/15/2013 11:25:59 Uncontrolled type 2 diabetes mellitus 075327830 Ingrowing nail 922739491 Pain in limb 78217226 Onychomyco sis due to dermatophyte 510651514 Peripheral venous insufficiency 92142330 Edema 854254604 Acquired c avus deformity of foot 54215462 Hammer toe 706538680 [id number] SEDR[facility] [address] [place] [address] 10/05/2013 11:52:21 10/05/2013 12:01:29 Uncontrolled type 2 diabetes mellitus 239894824 Hammer toe 932729362 [id number] Min Rogers [facility] [address] [address] 12/07/2013 12:16:56 12/07/2013 12:42:09 Uncontrolled type 2 diabetes mellitus 559384032 Hammer toe 745248189 Onychomyco sis due to dermatophyte 517982740 Pain in limb 10328893 Ingrowing nail 879312654 [id number] Min Rogers [facility] [address] [place] [address] 02/16/2014 09:54:34 02/16/2014 10:32:43 Onychomycosis due to dermatophyte 186947117 Ingrowing nail 576223908 Pain in limb 10018282 Diabetes mellitus 31201955 Peripheral venous insufficiency 06645038 Edema 178705091 Acquired c avus deformity of foot 68346769 Hammer toe 884197481 [id number] Min Rogers DPM [facility] [address] [address] 05/11/2014 10:23:52 05/11/2014 10:24:21 Onychomycosis due to dermatophyte 071787374 Ingrowing nail 655032793 Pain in limb 84022253 Diabetes mellitus 64587736 Peripheral venous insufficiency 07150500 Edema 356483121 Acquired c avus deformity of foot 00776796 Hammer toe 346255799 [id number] Min Rogers DPM [facility] [address] [address] 08/03/2014 09:27:24 08/03/2014 10:21:02 Onychomycosis due to dermatophyte 232970263 Ingrowing nail 728163999 Pain in limb 84150151 Diabetes mellitus 12749479 Peripheral venous insufficiency 50104157 Edema 424328428 Acquired c avus deformity of foot 66599896 Hammer toe 117877663 [id number] Min Rogers DPM [facility] [address] [address] 10/27/2014 09:16:37 10/27/2014 10:30:34 Onychomycosis due to dermatophyte 910833598 Ingrowing nail 361732082 Pain in limb 91371319 Diabetes mellitus 89126710 Peripheral venous insufficiency 14975861 Edema 133791936 Acquired c avus deformity of foot 80211829 Hammer toe 607876741 [id number] Min Rogers DPM [facility] [address] [address] 11/02/2014 13:10:07 11/02/2014 13:21:56 Hammer toe 708056269 Acquired c avus deformity of foot 82708845 Uncontroll ed type 2 diabetes mellitus 293468682 [id number] Min Rogers DPM [facility] [address] [address] 11/13/2014 12:15:16 11/13/2014 12:33:38 Acquired cavus deformity of foot 63561824 Diabetes mellitus 71680190 Hammer toe 864767331 [id number] Min Rogers DPM [facility] [address] [place] [address] 01/18/2015 13:54:36 01/18/2015 14:06:52 Onychomycosis due to dermatophyte 574137857 Ingrowing nail 901017267 Pain in limb 83645262 Uncontroll ed type 2 diabetes mellitus 445452537 [id number] Min Rogers DPM [facility] [address] [place] [address] 11/26/2017 10:25:50 11/26/2017 11:21:38 Overweight 151142173 E66.3 Ingrowing nail 636469238 L60.0 Pain in toe 126334443 M7 9.676 Disorder o 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 mellitus 259610930 E11.49 Hammer toe 999559344 M20 .41 M20.42 Onychomycosis 750593336 B35.1 [id number] Min Rogers DPM [facility] [address] [place] [address] 01/21/2018 13:25:31 01/21/2018 13:28:43 Disorder o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 mellitus 438233229 E11.49 Hammer toe 803872626 M20 .41 M20.42 [id number] Min Rogers DPM [facility] [address] [place] [address] 02/17/2018 11:45:01 02/17/2018 12:02:11 Disorder o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 mellitus 162008377 E11.49 Hammer toe 265658257 M20 .41 M20.42 [id number] Min Rogers DPM [facility] [address] [place] [address] 03/04/2018 08:59:26 03/04/2018 09:00:37 Onychomycosis due to dermatophyte 138426283 B35.1 Ingrowing nail 983565139 L60.0 Pain in limb 28047618 M7 9.609 Uncontroll ed type 2 diabetes mellitus 443307950 E11.65 [id number] Min Rogers DPM [facility] [address] [place] [address] 05/13/2018 09:31:40 05/13/2018 09:56:12 Ingrowing nail 137423398 L60.0 Pain in limb 46074448 M7 9.609 Uncontroll ed type 2 diabetes mellitus 814625157 E11.65 Onychomycosis 606941139 B35.1 Obese 351507143 E66.9 [id number] Min Rogers DPM [facility] [address] [place] [address] 07/29/2018 11:05:10 07/29/2018 11:15:42 Arthritis of right subtalar joint 4021037826 6445795 M13.871 Pain of ri ght ankle joint 9229402821 6984640 M25.571 Onychomycosis 603907215 B35.1 Ingrowing nail 495203082 L60.0 Uncontroll ed type 2 diabetes mellitus 794504981 E11.65 Obese 025406496 E66.9 Plantar fasciitis 657644 003 M72.2 Pain in toe 712547215 M7 9.676 [id number] Min Rogers DPM [facility] [address] [place] [address] 08/02/2018 09:02:54 08/02/2018 09:39:55 Foot pain 03822330 M79.671 Arthritis of right subtalar joint 6907838417 5984208 M13.871 Plantar fasciitis 126846 003 M72.2 Onychomycosis 408092990 B35.1 Ingrowing nail 496772518 L60.0 Pain in toe 633221859 M7 9.676 Uncontroll ed type 2 diabetes mellitus 769382442 E11.65 Obese 637314091 E66.9 [id number] Min Rogers DPM [facility] [address] [place] [address] 08/10/2018 11:41:12 08/10/2018 12:40:42 Plantar fasciitis 964956144 M72.2 Foot pain 06710199 M79.6 71 M79.672 [id number] Min Rogers DPM [facility] [address] [place] [address] 10/19/2018 11:14:44 10/19/2018 13:16:01 Onychomycosis 669966504 B35.1 Ingrowing nail 408433011 L60.0 Pain in limb 37976586 M7 9.609 Uncontroll ed type 2 diabetes mellitus 316738062 E11.65 Obese 765829992 E66.9 [id number] Min Rogers DPM [facility] [address] [place] [address] 12/28/2018 08:27:54 12/28/2018 09:22:02 Onychomycosis 966342016 B35.1 Ingrowing nail 222188031 L60.0 Pain in limb 20123621 M7 9.609 Uncontroll ed type 2 diabetes mellitus 676437431 E11.65 Obese 789101589 E66.9 [id number] Min Rogers DPM [facility] [address] [place] [address] 03/10/2019 11:30:47 03/10/2019 12:35:36 Onychomycosis 633142945 B35.1 Ingrowing nail 157544972 L60.0 Pain in limb 80396333 M7 9.609 Uncontroll ed type 2 diabetes mellitus 205535850 E11.65 Obese 428564108 E66.9 [id number] Min Rogers DPM [facility] [address] [place] [address] 06/09/2019 08:31:13 06/09/2019 09:28:11 Onychomycosis 123475737 B35.1 Ingrowing nail 022373759 L60.0 Pain in limb 43212174 M7 9.609 Uncontroll ed type 2 diabetes mellitus 349078200 E11.65 Obese 391715934 E66.9 Osteoarthr itis of subtalar joint 006569921 M19.072 Foot pain 38491634 M79.6 72 [id number] Min Rogers DPM [facility] [address] [place] [address] 08/26/2019 15:57:18 08/26/2019 16:06:24 Overweight 848137291 E66.3 Onychomycosis 358121104 B35.1 Ingrowing nail 360997950 L60.0 Uncontroll ed type 2 diabetes mellitus 969704413 E11.65 Pain in toe 347731704 M7 9.676 [id number] SEDRICK Vilalvicencio [facility] [address] [place] [address] 10/31/2019 08:53:06 10/31/2019 09:32:13 Onychomycosis 712585191 B35.1 Ingrowing nail 692623838 L60.0 Pain in toe 432670579 M7 9.676 Overweight 353557567 E66 .3 Disorder o 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 mellitus 123381265 E11.49 Hammer toe 337307435 M20 .41 M20.42 [id number] SEDRICK Villavicencio [facility] [address] [place] [address] 12/19/2019 17:27:14 12/19/2019 17:36:09 Disorder o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 mellitus 572018583 E11.49 Hammer toe 568123396 M20 .41 M20.42 [id number] Min Rogers DPM [facility] [address] [place] [address] 01/26/2020 13:22:34 01/26/2020 15:00:52 Onychomycosis 192515861 B35.1 Ingrowing nail 170311160 L60.0 Pain in toe 530167058 M7 9.676 Disorder o 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 mellitus 866360225 E11.49 Hammer toe 693952769 M20 .41 M20.42 Overweight 408034208 E66 .3 [id number] Min Rogers DPM [facility] [address] [place] [address] 04/12/2020 11:04:10 04/12/2020 11:16:03 Onychomycosis 290877069 B35.1 Ingrowing nail 458962909 L60.0 Pain in toe 698263401 M7 9.676 Disorder o 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 mellitus 810900294 E11.49 Hammer toe 585147357 M20 .41 M20.42 Overweight 083998199 E66 .3 [id number] SEDRICK Villavicencio [facility] [address] [place] [address] 07/16/2020 12:08:06 07/16/2020 12:20:12 Onychomycosis 282444217 B35.1 Ingrowing nail 328612067 L60.0 Pain in toe 128528608 M7 9.676 Disorder o 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 mellitus 036137766 E11.49 Hammer toe 642538202 M20 .41 M20.42 Overweight 403839676 E66 .3 [id number] Min Rogers DPM [facility] [address] [place] [address] 10/18/2020 11:06:15 10/18/2020 11:53:04 Onychomycosis 567984935 B35.1 Ingrowing nail [id number] L60.0 Pain in toe [id number] M7 9.676 Disorder o 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 mellitus [id number] E11.49 Hammer toe [id number] M20 .41 M20.42 Overweight [id number] E66 .3 [id number] SEDRICK Villavicencio [facility] [facility] [address] [place] [id number] 7 01/28/2021 14:36:07 01/28/2021 14:49:01 Onychomycosis [id number] B35.1 Ingrowing nail [id number] L60.0 Pain in toe 681351544 M7 9.676 Disorder o 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 mellitus 962008015 E11.49 Obesity 479574874 E66.9 [id number] Min Roegrs DPM [facility] [facility] [address] [place] [address] [phone] 7 05/06/2021 16:07:24 05/06/2021 16:26:10 Onychomycosis [id number] B35.1 Ingrowing nail [id number] L60.0 Pain in toe [id number] M7 9.676 Disorder o 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 mellitus 992440278 E11.49 Obesity 920309244 E66.9 09720 Min Rogers DPM [facility] [facility] [address] [place] [address] [phone] 08/09/2021 15:26:42 08/09/2021 15:31:37 Foot callus 408252878 L84 Onychomycosis [id number] B35.1 Ingrowing nail [id number] L60.0 Pain in toe 127853483 M7 9.676 Disorder o 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 mellitus 898356434 E11.49 Obesity 420019485 E66.9 Hammer toe 515341228 M20 .41 M20.42 [id number] Min Rogers DPM [facility] [place] [address] [place] [address] 10/18/2021 09:41:46 10/18/2021 09:52:37 Disorder o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 mellitus [id number] E11.49 Hammer toe [id number] M20 .41 M20.42 Health Concerns Section Related [...] (MEDICAID REPLACEMENT - HMO) [facility] Bessie Alfonso [id number] Bessie Alfonso 01/28/2021 1 [employer] PRIOR TO 2022 (MEDICAID REPLACEMENT - HMO) [facility] Bessie Alfonso [id number] Bessie Alfonso 02/18/2021 1 [employer] PRIOR TO 2022 (MEDICAID REPLACEMENT - HMO) [facility] Bessie Alfonso [id number] Bessie Alfonso 05/06/2021 1 [employer] Bessie Alfonso [id number] Bessie Alfonso 08/09/2021 1 [place] Bessie Alfonso [id number] Bessie Alfonso Notes Date Note Type Note [...] coronavirus COVID-19 disease. Min FragosoSTEPHANIE bruce [address] [place], [phone], [facility] 10/18/2020 12:33:21 01/28/2021 text/html Bessie [...] (fully vaccinated). Min PachecoMilena Rogers DPM [address] [place], [phone], [facility] 01/28/2021 15:02:07 05/06/2021 text/html Bessie [...] (fully vaccinated). Min Roberson STEPHANIE Rogers [address] [place], [phone], [facility] 05/07/2021 08:23:15 08/09/2021 text/html Bessie [...] COVID-19 disease (vaccinated). Min Rogers DPM [address] [place], [phone], [facility] 08/19/[facility]21 12:11:02 OBGyn Episode No OBEpisode recorded.
[2025-01-19] MEDS: Lactated Ringers 1,000 ML 999 ML IV ×2 (15:50→16:51)
--- NOTE | 2025-01-19 16:55 | P.CONGS_ITS ---
History of Present Illness Consult details Consult date: 01/19/25 Requesting physician: Job Kearns Narrative: 65-year-old female patient presenting to the emergency department with complaints of abdominal pain, nausea, vomiting which has increased over the past 2 days. She apparently has a chronic history of abdominal symptoms which became worse over the last 2 days. She apparently had 6 episodes of vomiting with no fever, chills, dysuria, or bowel changes. Her past history is significant for diabetes mellitus type 2, diabetic nephropathy, uncontrolled hypertension, GERD, hypertension, schizophrenia, major depression, HSV 2, hypothyroidism and polyarthralgia. Workup in the emergency department was significant for WBC of 12.0, lactate of 3.0, BUN of 18, glucose of 260, T bilirubin of 3.4, AST of 309, alkaline phosphatase of 211 and lipase of 916. A CT abdomen and pelvis reveals mild peripancreatic inflammatory stranding and fluid compatible with acute interstitial pancreatitis. There is inflammatory stranding and fluid about the gallbladder without evidence of calcified stones. Findings could represent acute cholecystitis. Subsequent ultrasound reveals evidence of wall thickening but no cholelithiasis. Surgical consultation was requested regarding possible cholecystitis. Review of Systems 2 Review of Systems: Yes Unobtainable due to mental condition PMFSH Past Medical History Medical History Osteoporosis Hypertension History of blood clot in brain Hypercholesteremia HSV-2 (herpes simplex virus 2) infection Arthritis Rheumatic fever Schizophrenia GERD (gastroesophageal reflux disease) Depression HTN (hypertension) Hyperlipemia Diabetes Family History Family History Sister Age: 63 Osteoarthritis Mother Cancer of lymphatic and hematopoietic tissue, Onset Age: 83 COVID-19 Father FH: heart attack Brother FH: heart attack Other Diabetes HTN (hypertension) Mental health disorder Surgical History Surgical History Hx of colonoscopy History of tubal ligation History of cystostomy History of 2 sections Social History Social History Household Members: Family Household Members Other:: sister Housing: Apartment Do you presently have visiting nurse or other home services: No Alcohol intake: never Patient Tobacco Use Status: Never used Tobacco e-Cigarette/Vaping Use: Never Used Second Hand Smoke Exposure: No Advance Directives: Yes Advance Directives on File: Yes Advance Directives Date on File: 12/05/21 Do you have a plan to hurt others: No Plan service: No Current occupational status: disabled Sexual orientation: Straight/Heterosexual Gender identity: Female Cognitive needs: Yes (walker) Hearing needs: No Vision needs: Yes (glasses) Meds Allergies Allergy/AdvReac Type Severity Reaction Status Date / Time Penicillins Allergy Intermediate rash/swelli Verified 01/19/25 10:40 ng shellfish derived Allergy Intermediate Swelling, Verified 01/19/25 10:40 Hives Active Medications: Current Medications Lactated Ringer's (Lr) 1,000 mls @ 999 mls/hr IV .Q1H1M CASANDRA Stop: 01/19/25 18:00 Last Admin: 01/19/25 16:51 Dose: 999 mls/hr Physical Exam 2 Vital Signs: Vital Signs: Last Vital Signs Temp 100.2 F 01/19/25 15:26 Pulse 107 H 01/19/25 15:26 Resp 19 01/19/25 15:26 BP 124/68 01/19/25 15:26 Pulse Ox 96 01/19/25 15:26 O2 Del Method Room Air 01/19/25 15:26 BMI result Body Mass Index 28.2 Const: General: no acute distress Nutritional Appearance: well nourished Orientation/consciousness: patient oriented x3 Resp: Effort & Inspection: normal respiratory effort, no audible wheezes, no cough and no respiratory distress Cardio: Rate: regular rate Rhythm: regular rhythm GI: Palpation (GI): Soft to palpation, Tenderness to palpation present (GI) in the epigastrum; Mendieta's sign negative, no guarding, not rigid and hepatosplenomegaly present Percussion: Yes normal to percussion A uscultation: normal bowel sounds Rectal Exam - Female: deferred Skin: Other: Jaundice, warm and dry Neuro: General: patient oriented x3 Extrem: Other: Brisk capillary refill, no cyanosis Results Labs 01/19/25 11:09 01/19/25 11:09 Labs: Abnormal lab results 01/19/25 01/19/25 01/19/25 Range/Units 11:09 13:09 15:23 WBC 12.0 H (4.8-10.8) X10*3/uL Neutrophils % (Manual) 74 H (45-73) % Band Neutrophils % 23 H (3-5) % Lymphocytes % (Manual) 1 L (20-40) % Abs Neuts (Manual) 11.6 H (2.0-8.3) X10*3/uL Lymphocytes # (Manual) 0.1 L (1.2-4.9) X10*3/uL BUN 18 H (9-16) mg/dL Random Glucose 260 H (60-115) mg/dL Lactic Acid 2.3 H* (0.5-2.0) mmol/L Lactic Acid F/U @ 2Hr 3.0 H* (0.5-2.0) mmol/L Total Bilirubin 3.4 H (0.0-1.0) mg/dL AST 309 H (5-31) U/L ALT 255 H (0-31) U/L Alkaline Phosphatase 211 H (39-117) U/L C-Reactive Protein 1.90 H (< or = 0.50) mg/dL Lipase 916 H (8-78) U/L Urine Glucose (UA) 250 H (Negative) mg/dL Short CBC 01/19/25 Range/Units 11:09 WBC 12.0 H (4.8-10.8) X10*3/uL Hgb 13.8 (12.0-16.0) g/dl Hct 41.5 (37.0-47.0) % Plt Count 244 (160-400) X10*3/uL BMP 01/19/25 11:09 Sodium 140 Potassium 3.3 Chloride 100 Carbon Dioxide 26 BUN 18 H Creatinine 1.00 Calcium 9.4 Liver Function 01/19/25 Range/Units 11:09 Total Bilirubin 3.4 H (0.0-1.0) mg/dL AST 309 H (5-31) U/L ALT 255 H (0-31) U/L Alkaline Phosphatase 211 H (39-117) U/L Albumin 4.1 (3.5-5.0) g/dL Urine 01/19/25 Range/Units 11:09 Urine Color Yellow Urine Appearance Clear Urine pH >= 9.0 (5.0-9.0) Ur Specific [place] 1.015 (1.005-1.025) Urine Protein Trace (Neg-Trace) mg/dL Urine Glucose (UA) 250 H (Negative) mg/dL All other labs normal. Imaging Additional studies: CT A/P: ? dilated distal CBD US Abd: wall thickening, no stones, ? pericholecystic fluid; normal CBD. Assessment and Plan (1) Pancreatitis: Qualifiers: Chronicity: acute Pancreatitis type: unspecified pancreatitis type A cute pancreatitis complication: no infection or necrosis Qualified Code(s): K 85.90 - Acute pancreatitis without necrosis or infection, unspecified Status: Acute Plan 65-year-old female patient presenting with complaints of epigastric abdominal pain, nausea and vomiting found to have evidence of pancreatitis along with the elevation of liver functions including total bilirubin, transaminase and alkaline phosphatase. CT abdomen and pelvis confirms inflammatory changes around the pancreas and gallbladder but no gallstones. Ultrasound also is negative for gallstones although wall thickening is identified. No sonographic Mendieta sign was identified. Further workup with HIDA scan or MRCP may be helpful. Recommend GI consultation. Procedures Date of Service Date of Service: 01/19/25
[2025-01-19 17:12] LABS: Bilirubin Direct 2.2 mg/dL (0.0-0.5)
[2025-01-19 17:29] LABS: Reflex Lactate? 2 Y
[2025-01-19 19:12] LABS: ~Lactic Acid-LAB USE ONLY 2.4 mmol/L (0.5-2.0)
[2025-01-19] MEDS: Piperacillin Sodium/Tazobactam 4.5 GM in 0.9 % Sodium Chloride 100 ML IV (21:03)
[2025-01-19 21:06] LABS: Triglycerides 48 mg/dL (<150)
[2025-01-19] MEDS: Lactated Ringers 1,000 ML 100 ML IVCONT (21:07)
--- NOTE | 2025-01-19 21:08 | PM.IMHP ---
History of Present Illness Date of Service: 01/19/25 Chief Complaint: Abdominal pain This has a 65-year-old female with pertinent history of insulin-dependent diabetes mellitus with diabetic neuropathy, hypertension, mixed hyperlipidemia, mood disorder, gastroesophageal reflux disease, lower extremity edema, restless leg syndrome who presents to the emergency department for evaluation of abdominal pain. Patient states abdominal pain started 1 day prior to presentation. She started having epigastric abdominal discomfort which was constant, nonradiating and without any relieving factors. Also had associated nausea and multiple episodes of nonbloody emesis. Her symptoms were progressive and no similar symptoms or history of pancreatitis in the past. No documented fever or chills. No chest pain, palpitations, shortness of breath, changes in urinary or bowel habits. Patient is Macedonian speaking and history obtained with the help of spanish interpreter. Patient denies alcohol use. In the emergency department, lipase elevated and imaging concerning for acute interstitial pancreatitis. Also noticed fluid around gallbladder but negative sonographic Mendieta's sign. Total bilirubin 3.4, AST 309, ALT 255 and alkaline phosphatase 211. Review of Systems Constitutional: Constitutional: Reports fatigue, Reports malaise and Reports poor appetite Cardiovascular: Cardiovascular: Reports no additional cardiovascular complaints Respiratory: Respiratory: Reports no additional respiratory complaints Gastrointestinal: Gastrointestinal: Reports abdominal pain, Reports nausea and Reports vomiting Genitourinary: Genitourinary: Reports no additional female genitourinary complaints Endocrine: Endocrine: Reports fatigue PMFSH Medical History Osteoporosis Hypertension History of blood clot in brain Hypercholesteremia HSV-2 (herpes simplex virus 2) infection Arthritis Rheumatic fever Schizophrenia GERD (gastroesophageal reflux disease) Depression HTN (hypertension) Hyperlipemia Diabetes Family History Sister Age: 63 Osteoarthritis Mother Cancer of lymphatic and hematopoietic tissue, Onset Age: 83 COVID-19 Father FH: heart attack Brother FH: heart attack Other Diabetes HTN (hypertension) Mental health disorder Surgical History Hx of colonoscopy History of tubal ligation History of cystostomy History of 2 sections Social History Household Members: Family Household Members Other:: sister Housing: Apartment Do you presently have visiting nurse or other home services: No Alcohol intake: never Patient Tobacco Use Status: Never used Tobacco e-Cigarette/Vaping Use: Never Used Second Hand Smoke Exposure: No Advance Directives: Yes Advance Directives on File: Yes Advance Directives Date on File: 12/05/21 Do you have a plan to hurt others: No Plan service: No Current occupational status: disabled Sexual orientation: Straight/Heterosexual Gender identity: Female Cognitive needs: Yes (walker) Hearing needs: No Vision needs: Yes (glasses) Meds Allergies Allergy/AdvReac Type Severity Reaction Status Date / Time Penicillins Allergy Intermediate rash/swelli Verified 01/19/25 10:40 ng shellfish derived Allergy Intermediate Swelling, Verified 01/19/25 10:40 Hives Active Medications: Current Medications Acetaminophen (Acetaminophen 325 Mg Tablet) 650 mg PO Q6H PRN PRN Reason: Pain, Mild 1-3,fever,headache Calcium Carbonate (Calcium Carbonate 750 Mg Tab.Chew) 750 mg PO Q4H PRN PRN Reason: Heartburn Piperacillin Sod/Tazobactam (Sod 4.5 gm/ Sodium Chloride) 100 mls @ 200 mls/hr IV Q6H [facility] Last Admin: 01/19/25 21:03 Dose: 200 mls/hr Lactated Ringer's (Lr) 1,000 mls @ 100 mls/hr IVCONT .Q10H [facility] Last Infusion: 01/19/25 21:07 Dose: 0 mls/hr Magnesium Hydroxide (Milk Of Magnesia 30 Ml Oral.Susp) 30 ml PO DAILY PRN PRN Reason: Constipation Melatonin (Melatonin 3 Mg Tablet) 6 mg PO BEDTIME PRN PRN Reason: Insomnia Morphine Sulfate (Morphine Sulfate 4 Mg/Ml Cartridge) 4 mg IVPUSH Q4H PRN; Protocol PRN Reason: Pain, Severe (Pain Scale 7-10) Ondansetron HCl (Ondansetron Hcl 4 Mg/2 Ml Vial) 4 mg IVPUSH Q8H PRN PRN Reason: Nausea and Vomiting Sodium Chloride (0.9 % Sodium Chloride Flush 3 Ml Syringe) 3 ml IVFLUSH QSHIFT [facility] Home Medications ?Medication ?Instructions ?Recorded ?Confirmed ?Last Taken ?Type amlodipine 5 mg tablet 2.5 mg PO DAILY 01/19/25 01/19/25 Unknown History dulaglutide 1.5 mg/0.5 mL 1.5 mg subcut QWEEK 01/19/25 Unknown History [facility] Physical Exam Vital Signs and Narrative: Vital Signs: Last Vital Signs Temp 98.8 F 01/19/25 18:26 Pulse 96 01/19/25 18:26 Resp 24 H 01/19/25 18:26 BP 143/64 H 01/19/25 18:26 Pulse Ox 94 01/19/25 18:26 O2 Del Method Room Air 01/19/25 18:26 BMI result Body Mass Index 28.2 Middle-aged female lying in bed in no distress Neck supple, no JVD Regular rate and rhythm, S1-S2 heard Regular breath sounds bilaterally, no wheezing or crackles appreciated Abdomen with epigastric tenderness, no rigidity Patient is awake, alert and oriented to self, place, time and person ; no focal motor deficit Psych: Normal mood No pedal edema Results Labs 01/19/25 11:09 01/19/25 11:09 Labs: Laboratory Results - last 24 hr 01/19/25 01/19/25 01/19/25 11:09 13:09 15:23 MCV 85.0 MCH 28.3 MCHC 33.3 RDW 13.2 Plt Count 244 MPV 10.2 Immature Gran % (Auto) Cancelled Neut % (Auto) Cancelled Lymph % (Auto) Cancelled [place] % (Auto) Cancelled Eos % (Auto) Cancelled Baso % (Auto) Cancelled Lymph # (Auto) Cancelled [place] # (Auto) Cancelled Eos # (Auto) Cancelled Baso # (Auto) Cancelled Abs Immat Gran (auto) Cancelled Absolute Neuts (auto) Cancelled Absolute Nucleated RBC 0.000 Nucleated RBC % (auto) 0.0 Neutrophils % (Manual) 74 H Band Neutrophils % 23 H Lymphocytes % (Manual) 1 L Monocytes % (Manual) 2 Abs Neuts (Manual) 11.6 H Lymphocytes # (Manual) 0.1 L Monocytes # (Manual) 0.2 Toxic Vacuolation PRESENT Platelet Estimate NORMAL Plt Morphology Comment NORMAL RBC Morphology NOTED Acanthocytes (Spur) 3+ (>5) Smear Tech's Comments MANUAL DIFF Anion Gap 17 Estim Creat Clear Calc 58.7 Estimated GFR 55 Random Glucose 260 H Lactic Acid 2.3 H* Lactic Acid F/U @ 2Hr 3.0 H* Lactic Acid F/U @ 4Hr Calcium 9.4 Total Bilirubin 3.4 H Direct Bilirubin 2.2 H AST 309 H ALT 255 H Alkaline Phosphatase 211 H C-Reactive Protein 1.90 H Total Protein 7.2 Albumin 4.1 Triglycerides 48 Lipase 916 H Urine Color Yellow Urine Appearance Clear Urine pH >= 9.0 Ur Specific [place] 1.015 Urine Protein Trace Urine Glucose (UA) 250 H Urine Ketones 40 Urine Blood Negative Urine Nitrite Negative Ur Leukocyte Esterase Negative Influenza Type A (PCR) NEGATIVE Influenza Type B (PCR) NEGATIVE RSV RNA Qual (PCR) NEGATIVE SARS-CoV-2 RNA (RT-PCR) NEGATIVE 01/19/25 18:44 MCV MCH MCHC RDW Plt Count MPV Immature Gran % (Auto) Neut % (Auto) Lymph % (Auto) [place] % (Auto) Eos % (Auto) Baso % (Auto) Lymph # (Auto) [place] # (Auto) Eos # (Auto) Baso # (Auto) Abs Immat Gran (auto) Absolute Neuts (auto) Absolute Nucleated RBC Nucleated RBC % (auto) Neutrophils % (Manual) Band Neutrophils % Lymphocytes % (Manual) Monocytes % (Manual) Abs Neuts (Manual) Lymphocytes # (Manual) Monocytes # (Manual) Toxic Vacuolation Platelet Estimate Plt Morphology Comment RBC Morphology Acanthocytes (Spur) Smear Tech's Comments Anion Gap Estim Creat Clear Calc Estimated GFR Random Glucose Lactic Acid Lactic Acid F/U @ 2Hr Lactic Acid F/U @ 4Hr 2.4 H* Calcium Total Bilirubin Direct Bilirubin AST ALT Alkaline Phosphatase C-Reactive Protein Total Protein Albumin Triglycerides Lipase Urine Color Urine Appearance Urine pH Ur Specific [place] Urine Protein Urine Glucose (UA) Urine Ketones Urine Blood Urine Nitrite Ur Leukocyte Esterase Influenza Type A (PCR) Influenza Type B (PCR) RSV RNA Qual (PCR) SARS-CoV-2 RNA (RT-PCR) Imaging Radiologist's Impressions: Impressions Abdomen/Pelvis CT 01/19/25 14:00 IMPRESSION: Mild peripancreatic inflammatory stranding and fluid, compatible with acute interstitial pancreatitis. There is inflammatory stranding and fluid about the gallbladder without evidence of calcified stones. Findings could represent acute cholecystitis. This could be further evaluated with ultrasound. Electronically signed by: Rajendra Nuñez MD 01/19/2025 02:42 PM EDT Assessment and Plan (1) Acute pancreatitis: Status: Acute (2) Abnormal LFTs: Status: Acute Plan This has a 65-year-old female with pertinent history of insulin-dependent diabetes mellitus with diabetic neuropathy, hypertension, mixed hyperlipidemia, mood disorder, gastroesophageal reflux disease, lower extremity edema, restless leg syndrome who presents to the emergency department for evaluation of abdominal pain. #. Acute interstitial pancreatitis: Will admit patient with IV opioids p.r.n. Continue IV crystalloid resuscitation and will keep patient NPO. Denies alcohol use. Noted elevated LFTs and alkaline phosphatase, obtaining MRCP to rule out CBD stone as a cause of gallstone pancreatitis. Triglyceride level pending. Consulted Gastroenterology #. Imaging evidence of Focal thickening of gallbladder and pericholecystic fluid: Likely in the setting of above. Empiric IV antibiotics. General surgery on board. HIDA scan pending #. Acute lactic acidosis: Trending down with crystalloid resuscitation #. Insulin-dependent diabetes mellitus with hyperglycemia: Initiating Accu-Cheks with sliding scale insulin every 6 hours while patient is NPO #. Hypertension: Resume home antihypertensives once no longer NPO #. Mixed hyperlipidemia: Hold statin #. Mood disorder: Continue home mood stabilizers #. Gastroesophageal reflux disease: On PPI Med rec pending DVT prophylaxis: Mechanical. Hold Lovenox until surgical evaluation Full code. Discussed with patient at bedside Admit as inpatient and will require two night minimum hospital stay for IV antibiotics and management and evaluation of acute pancreatitis (as above), which is not possible in a lesser acute setting. Specialist consult pending Quality Stroke Does the patient have a stroke diagnosis?: No VTE Prior VTE?: No VTE Risk Level:: Medical - moderate - high VTE Device Contraindication: N/A - Device Ordered VTE Drug Contraindication: Treatment Not Indicated
--- NOTE | 2025-01-19 21:49 | PHA.MEDREC ---
Addendum entered by Sulema Campa RPh 01/19/25 22:33: [facility] REVIEWED Original Note: Pharmacy Consult ? Medication Reconciliation Pharmacy has completed the medication reconciliation. Spoke to patient through whip saw[facility] service (Bogdan) to confirm med list. Patient had a list of medications with her. Patient confirm Trulicity 1.5 mg every Thursday, last dose was 01/13/25, Insulin aspart U-100 is 10 units TID pen , Lantus solostar 48 units daily. Patient last had her medications today.
--- NOTE | 2025-01-19 22:11 | PC.NURSE ---
Criss ([facility] [phone]
[2025-01-19 22:19] LABS: Glucose, Whole Blood 196 mg/dL (60-115)
[2025-01-19] MEDS: Insulin Lispro 100 UNIT/ML 3 ML VIAL SUBCUT (22:32)
--- NOTE | 2025-01-19 23:06 | PC.NURSE ---
this rn assumed care of pt, pt resting in stretcher, no acute distress noted, vss. nsr on tele 88/90bpm.
[2025-01-20] VITALS (9 sets, daily range): BP systolic 112–161; BP diastolic 52–72; PULSE 78–88; RESP 13–20; TEMP 36.3–37.1; O2SAT 97–99
[2025-01-20] MEDS: 0.9 % Sodium Chloride Flush 3 ML SYRINGE IVFLUSH ×2 (01:23→19:42)
[2025-01-20] MEDS: Piperacillin Sodium/Tazobactam 4.5 GM in 0.9 % Sodium Chloride 100 ML IV ×4 (01:30→19:46)
--- NOTE | 2025-01-20 02:09 | PC.NURSE ---
this rn received [employer] for positive + cultures at this time, also in [employer] and received message.
[2025-01-20] MEDS: Lactated Ringers 1,000 ML 100 ML IVCONT ×2 (08:06→16:34)
[2025-01-20 08:45] LABS: MANUAL DIFF FLAG NO
[2025-01-20 08:47] LABS: Basophils Absolute Auto 0.1 X10*3/uL (0.0-0.2); Basophils Percent Auto 0.4 % (0-2); Eosinophils Absolute Auto 0.2 X10*3/uL (0.0-0.4); Eosinophils Percent Auto 1.1 % (0-4); Hematocrit 33.8 % (37.0-47.0); Hemoglobin 11.1 g/dl (12.0-16.0); Imm Gran Abs Auto 0.13 X10*3/uL (0.00-0.03); Imm Gran Pct Auto 0.9 % (0.0-0.4); Lymphocytes Absolute Auto 1.1 X10*3/uL (1.2-4.9); Lymphocytes Percent Auto 7.7 % (20-40); Mean Corpuscular HGB Conc 32.8 g/dl (31.0-35.0); Mean Corpuscular Volume 85.4 fL (80.0-98.0); Mean Platelet Volume 10.4 fL (9.4-12.3); Monocytes Absolute Auto 0.6 X10*3/uL (0.1-1.2); Neutrophils Absolute Auto 12.4 x10*3/uL (2.0-8.3); Neutrophils Percent Auto 85.9 % (45-73); Platelet Count 195 X10*3/uL (160-400); Red Blood Count 3.96 X10*6/uL (4.20-5.50); White Blood Count 14.4 X10*3/uL (4.8-10.8)
--- NOTE | 2025-01-20 08:48 | PM.GICN ---
History of Present Illness Data of Consult Service Date: 01/20/25 Requesting physician: Sherron Saenz Primary Care Provider: Evelia Donald MD HPI Reason for consult: acute interstitial pancreatitis 65 y.o F with PMH of type 2 diabetes, hypertension, hyperlipidemia, who presented to the hospital for abdominal pain, nausea vomiting and was found to have acute interstitial pancreatitis. Patient was seen at bedside in the presence of her sister. teaching fellow present. She reports she was seen last week as well for similar symptoms but at that time, she did not have any lab abnormalities including normal LFTs and renal function. No white count. 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 Lipase was noted to be 916. Initial imaging including CT abdomen and pelvis showed mild peripancreatic inflammatory stranding with thickening of gallbladder wall and pericholecystic fluid. No gallstones noted. No CBD dilation. She also had MRCP this afternoon that again did not show any gallstones or choledocholithiasis. It does show again, inflammatory changes around pancreatic head. Patient does not drink. Does not report any changes in medication the last 6 months. Calcium and triglycerides are normal. Review of Systems Review of Systems: Yes all other systems are reviewed and are negative [facility] Past Medical History Medical History Osteoporosis Hypertension History of blood clot in brain Hypercholesteremia HSV-2 (herpes simplex virus 2) infection Arthritis Rheumatic fever Schizophrenia GERD (gastroesophageal reflux disease) Depression HTN (hypertension) Hyperlipemia Diabetes Family History Family History Sister Age: 63 Osteoarthritis Mother Cancer of lymphatic and hematopoietic tissue, Onset Age: 83 COVID-19 Father FH: heart attack Brother FH: heart attack Other Diabetes HTN (hypertension) Mental health disorder Surgical History Surgical History Hx of colonoscopy History of tubal ligation History of cystostomy History of 2 sections Social History Social History Household Members: None Household Members Other:: sister Housing: Apartment Do you presently have visiting nurse or other home services: No Alcohol intake: never Patient Tobacco Use Status: Never used Tobacco e-Cigarette/Vaping Use: Never Used Second Hand Smoke Exposure: No Advance Directives Date on File: 12/05/21 service: No Current occupational status: disabled Sexual orientation: Straight/Heterosexual Gender identity: Female Cognitive needs: Yes (walker) Hearing needs: No Vision needs: Yes (glasses) Meds Allergies Allergy/AdvReac Type Severity Reaction Status Date / Time Penicillins Allergy Intermediate rash/swelli Verified 01/19/25 10:40 ng shellfish derived Allergy Intermediate Swelling, Verified 01/19/25 10:40 Hives Active Medications: Current Medications Acyclovir (Acyclovir 200 Mg Capsule) 400 mg PO TID CASANDRA Amitriptyline HCl (Amitriptyline Hcl 10 Mg Tablet) 5 mg PO BEDTIME CASANDRA Amlodipine Besylate (Amlodipine Besylate 2.5 Mg Tablet) 2.5 mg PO DAILY CASANDRA; Protocol Calcium Carbonate (Calcium Carbonate 750 Mg Tab.Chew) 750 mg PO Q4H PRN PRN Reason: Heartburn Dextrose (Dextrose 50 % 25 Gm/50 Ml Syringe) 25 gm IVPUSH Q15M PRN; Protocol PRN Reason: per Hypoglycemia Standing Ord. Divalproex Sodium (Divalproex Sodium Er 500 Mg Tab.Er.24h) 1,000 mg PO BEDTIME CASANDRA Furosemide (Furosemide 40 Mg Tablet) 40 mg PO DAILY CASANDRA; Protocol Glucose (Glucose Gel 15 Gm Gel..Gram.) 15 gm PO Q15M PRN; Protocol PRN Reason: per Hypoglycemia Standing Ord. Piperacillin Sod/Tazobactam (Sod 4.5 gm/ Sodium Chloride) 100 mls @ 200 mls/hr IV Q6H CASANDRA Last Infusion: 01/20/25 02:00 Dose: Infused Lactated Ringer's (Lr) 1,000 mls @ 100 mls/hr IVCONT .Q10H CASANDRA Last Admin: 01/20/25 08:06 Dose: 100 mls/hr Insulin Human Lispro (Insulin Lispro 100 Unit/Ml 3 Ml Vial) 0 unit SUBCUT Q6H CASANDRA; Protocol Last Admin: 01/20/25 02:24 Dose: Not Given Magnesium Hydroxide (Milk Of Magnesia 30 Ml Oral.Susp) 30 ml PO DAILY PRN PRN Reason: Constipation Melatonin (Melatonin 3 Mg Tablet) 6 mg PO BEDTIME PRN PRN Reason: Insomnia Metoprolol Succinate (Metoprolol Succinate Er 25 Mg Tab.Er.24h) 25 mg PO DAILY [facility]; Protocol Morphine Sulfate (Morphine Sulfate 4 Mg/Ml Cartridge) 4 mg IVPUSH Q4H PRN; Protocol PRN Reason: Pain, Severe (Pain Scale 7-10) Omeprazole (Omeprazole 20 Mg Capsule.Dr) 20 mg PO DAILY@0630 [facility] Ondansetron HCl (Ondansetron Hcl 4 Mg/2 Ml Vial) 4 mg IVPUSH Q8H PRN PRN Reason: Nausea and Vomiting Polyethylene Glycol (Polyethylene Glycol 3350 17 Gm Powd.Pack) 17 gm PO DAILY [facility] Ropinirole HCl (Ropinirole Hcl 0.25 Mg Tablet) 1 mg PO BEDTIME [facility] Senna/Docusate Sodium (Sennosides/Docusate Sodium Tablet) 1 tab PO Q2D@2100 [facility] Sodium Chloride (0.9 % Sodium Chloride Flush 3 Ml Syringe) 3 ml IVFLUSH QSHIFT [facility] Last Admin: 01/20/25 08:07 Dose: Not Given Tolterodine Tartrate (Tolterodine Tartrate La 2 Mg Cap.Er.24h) 2 mg PO DAILY [facility] Home Medications ?Medication ?Instructions ?Recorded ?Confirmed ?Last Taken ?Type amitriptyline 10 mg tablet 5 mg PO BEDTIME 01/19/25 01/19/25 01/18/25 History amlodipine 5 mg tablet 2.5 mg PO DAILY 01/19/25 01/19/25 01/19/25 History dulaglutide 1.5 mg/0.5 mL 1.5 mg subcut FR 01/19/25 01/19/25 01/13/25 History subcutaneous pen injector (Trulicity) polyethylene glycol 3350 17 17 g PO DAILY Constipation 01/19/25 01/19/25 Unknown History gram/dose oral powder (Miralax) ropinirole 0.25 mg tablet 1 mg PO BEDTIME 01/19/25 01/19/25 01/19/25 History sennosides 8.6 mg-docusate sodium 1 tab PO Q2D@2100 01/19/25 01/19/25 Unknown History 50 mg tablet (Senna with Docusate Sodium) Physical Exam Vital Signs: Vital Signs: Last Vital Signs Temp 98.7 F 01/20/25 08:00 Pulse 85 01/20/25 08:00 Resp 17 01/20/25 08:00 BP 124/53 L 01/20/25 08:00 Pulse Ox 99 01/20/25 08:00 O2 Del Method Room Air 01/20/25 08:00 BMI result Body Mass Index 28.2 Elderly frail female Nonicteric Abdomen soft, tender, nondistended, no guarding No overt respiratory distress No peripheral edema Results Labs 01/20/25 08:10 01/20/25 08:10 Labs: Short CBC 01/19/25 01/20/25 Range/Units 11:09 08:10 WBC 12.0 H 14.4 H (4.8-10.8) X10*3/uL Hgb 13.8 11.1 L (12.0-16.0) g/dl Hct 41.5 33.8 L (37.0-47.0) % Plt Count 244 195 (160-400) X10*3/uL BMP 01/19/25 11:09 Sodium 140 Potassium 3.3 Chloride 100 Carbon Dioxide 26 BUN 18 H Creatinine 1.00 Calcium 9.4 Liver Function 01/19/25 Range/Units 11:09 Total Bilirubin 3.4 H (0.0-1.0) mg/dL Direct Bilirubin 2.2 H (0.0-0.5) mg/dL AST 309 H (5-31) U/L ALT 255 H (0-31) U/L Alkaline Phosphatase 211 H (39-117) U/L Albumin 4.1 (3.5-5.0) g/dL Urine 01/19/25 Range/Units 11:09 Urine Color Yellow Urine Appearance Clear Urine pH >= 9.0 (5.0-9.0) Ur Specific [place] 1.015 (1.005-1.025) Urine Protein Trace (Neg-Trace) mg/dL Urine Glucose (UA) 250 H (Negative) mg/dL Microbiology Microbiology Results: Microbiology 01/19/25 13:09 Blood - Venous Blood Culture - Preliminary Prelim: GNR Gram Stain only 01/19/25 13:09 Blood - Venous Blood Culture - Preliminary Prelim: GNR Gram Stain only Assessment and Plan (1) Pancreatitis: Status: Acute (2) Abnormal LFTs: Status: Acute (3) Acute pancreatitis: Status: Acute Plan Presentation typical for biliary pancreatitis (biliary colic a week ago and now with possible cholecystitis and AIP with elevated LFTs) but no cholelithiasis noted on MRI - images independently reviewed. Ddx include passed stone vs microlithiasis vs panc cyst/IPMN - although none seen on MRCP T2 haste sequences. No recent med change. Autoimmune panc considered but typically LFTs not elevated with it. Plan: - IVF - LR preferred at least 1-1.5cc/kg/hr for today and then 100cc/h - Agree with HIDA scan - If HIDA negative ok to start CLD from GI standpoint - early feeding preferred to reduce complications from bacterial translocation - Monitor blood glucosa - hyperglycemia during AIP can increase risk of peripancreatic complications/infections - If abd exam gets worse over 48h or pt unable to progress diet, low threshold to obtain interval contrasted imaging to r/o panc necrosis - May need repeat MRI pancreas protocol in 4 weeks (no sooner to allow for interstitial edema to resolve for complete radiographic eval) if no underlying cause of pancreatitis identified. Thank you for allowing me to participate in her care. Please do not hesitate to reach out for any questions or concerns. Procedures Date of Service Date of Service: 01/20/25
[2025-01-20 09:03] LABS: Alanine Aminotransferase 201 U/L (0-31); Alkaline Phosphatase 158 U/L (39-117); Anion Gap 12 (12-20); Aspartate Amino Transferase 133 U/L (5-31); Bilirubin Total 3.7 mg/dL (0.0-1.0); Blood Urea Nitrogen 20 mg/dL (9-16); Calcium 8.5 mg/dL (8.4-10.2); Carbon Dioxide 26 mmol/L (22-29); Chloride 109 mmol/L (96-108); Creatinine Clr Calc Pharmacy 73.4; Estimated Glomerular Filt Rate > 60; Glucose Random 120 mg/dL (60-115); Potassium 3.4 mmol/L (3.3-5.1); Sodium 144 mmol/L (135-145); Total Protein 5.4 g/dL (6.5-8.0)
[2025-01-20] MEDS: Acyclovir 200 MG CAPSULE 400 MG PO ×3 (09:06→20:34)
[2025-01-20] MEDS: Furosemide 40 MG TABLET PO (09:06)
[2025-01-20] MEDS: Metoprolol Succinate ER 25 MG TAB.ER.24H PO (09:06)
[2025-01-20] MEDS: Omeprazole 20 MG CAPSULE.DR PO (09:07)
[2025-01-20] MEDS: amLODIPine Besylate 2.5 MG TABLET PO (09:07)
[2025-01-20] MEDS: polyethylene glycoL 3350 17 GM POWD.PACK PO (09:08)
--- NOTE | 2025-01-20 09:46 | MHC.CM.PN ---
Addendum entered by Maddie Salamanca RN 01/20/25 12:32: Per [facility], patient attends [facility] Original Note: CM assessment completed w/ asl interpreter. IMM delivered. Patient lives in an apartment alone. Her sister/alt HCP lives in the same building. Ambulates w/ walker. 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 Diabetic supplies obtained from her pharmacy. Hx I[facility]OC - last was at [facility] in 2021. PCP Evelia Donald MD HCP on file and verified - primary HCP is Criss hanna. DP: Goal is home, resume [employer] services, ? need for new VNA/PT (no preference). [facility]issa will transport on dc. CM will continue to follow.
[2025-01-20 09:53] LABS: Glucose, Whole Blood 90 mg/dL (60-115)
--- NOTE | 2025-01-20 10:33 | P.PNGS_ITS ---
Subjective Subjective Date of Service: 01/20/25 Patient reports: feels better, still having pain ( when they push on me ) and no bowel movement Interval history: Patient states she has been feeling better today. She states she has less pain while at rest. Denies nausea, vomiting. She denies bowel movements. Currently NPO Physical Exam 2 Vital Signs: Vital Signs: Last Vital Signs Temp 98.7 F 01/20/25 08:00 Pulse 84 01/20/25 09:06 Resp 17 01/20/25 08:00 BP 125/58 L 01/20/25 09:07 Pulse Ox 99 01/20/25 08:00 O2 Del Method Room Air 01/20/25 08:00 BMI result Body Mass Index 28.2 GI: Other: negative dowling sign Inspection: No distended Palpation (GI): Soft to palpation, Tenderness to palpation present (GI) (Upper abdominal tenderness), no guarding and not rigid Objective Data Active Medications Acyclovir (Acyclovir 200 Mg Capsule) 400 mg PO TID [facility] Last Admin: 01/20/25 09:06 Dose: 400 mg Documented By: JOSÉ Amitriptyline HCl (Amitriptyline Hcl 10 Mg Tablet) 5 mg PO BEDTIME CASANDRA Amlodipine Besylate (Amlodipine Besylate 2.5 Mg Tablet) 2.5 mg PO DAILY CASANDRA; Protocol Last Admin: 01/20/25 09:07 Dose: 2.5 mg Documented By: JOSÉ Calcium Carbonate (Calcium Carbonate 750 Mg Tab.Chew) 750 mg PO Q4H PRN PRN Reason: Heartburn Dextrose (Dextrose 50 % 25 Gm/50 Ml Syringe) 25 gm IVPUSH Q15M PRN; Protocol PRN Reason: per Hypoglycemia Standing Ord. Divalproex Sodium (Divalproex Sodium Er 500 Mg Tab.Er.24h) 1,000 mg PO BEDTIME CASANDRA Furosemide (Furosemide 40 Mg Tablet) 40 mg PO DAILY CASANDRA; Protocol Last Admin: 01/20/25 09:06 Dose: 40 mg Documented By: JOSÉ Glucose (Glucose Gel 15 Gm Gel..Gram.) 15 gm PO Q15M PRN; Protocol PRN Reason: per Hypoglycemia Standing Ord. Piperacillin Sod/Tazobactam (Sod 4.5 gm/ Sodium Chloride) 100 mls @ 200 mls/hr IV Q6H CASANDRA Last Admin: 01/20/25 09:04 Dose: 200 mls/hr Documented By: JOSÉ Lactated Ringer's (Lr) 1,000 mls @ 100 mls/hr IVCONT .Q10H [facility] Last Admin: 01/20/25 08:06 Dose: 100 mls/hr Documented By: JOSÉ Insulin Human Lispro (Insulin Lispro 100 Unit/Ml 3 Ml Vial) 0 unit SUBCUT Q6H [facility]; Protocol Last Admin: 01/20/25 02:24 Dose: Not Given Documented By: ESPERANZA Non-Admin Reason: NPO Magnesium Hydroxide (Milk Of Magnesia 30 Ml Oral.Susp) 30 ml PO DAILY PRN PRN Reason: Constipation Melatonin (Melatonin 3 Mg Tablet) 6 mg PO BEDTIME PRN PRN Reason: Insomnia Metoprolol Succinate (Metoprolol Succinate Er 25 Mg Tab.Er.24h) 25 mg PO DAILY [facility]; Protocol Last Admin: 01/20/25 09:06 Dose: 25 mg Documented By: JOSÉ Morphine Sulfate (Morphine Sulfate 4 Mg/Ml Cartridge) 4 mg IVPUSH Q4H PRN; Protocol PRN Reason: Pain, Severe (Pain Scale 7-10) Omeprazole (Omeprazole 20 Mg Capsule.Dr) 20 mg PO DAILY@0630 [facility] Last Admin: 01/20/25 09:07 Dose: 20 mg Documented By: JOSÉ Ondansetron HCl (Ondansetron Hcl 4 Mg/2 Ml Vial) 4 mg IVPUSH Q8H PRN PRN Reason: Nausea and Vomiting Polyethylene Glycol (Polyethylene Glycol 3350 17 Gm Powd.Pack) 17 gm PO DAILY [facility] Last Admin: 01/20/25 09:08 Dose: 17 gm Documented By: JOSÉ Ropinirole HCl (Ropinirole Hcl 0.25 Mg Tablet) 1 mg PO BEDTIME [facility] Senna/Docusate Sodium (Sennosides/Docusate Sodium Tablet) 1 tab PO Q2D@2100 [facility] Sodium Chloride (0.9 % Sodium Chloride Flush 3 Ml Syringe) 3 ml IVFLUSH QSHIFT [facility] Last Admin: 01/20/25 08:07 Dose: Not Given Documented By: JOSÉ Non-Admin Reason: IV Running Tolterodine Tartrate (Tolterodine Tartrate La 2 Mg Cap.Er.24h) 2 mg PO DAILY [facility] Labs 01/20/25 08:10 01/20/25 08:10 Labs: Laboratory Results - last 24 hr 01/19/25 01/19/25 01/19/25 11:09 13:09 15:23 MCV 85.0 MCH 28.3 MCHC 33.3 RDW 13.2 Plt Count 244 MPV 10.2 Immature Gran % (Auto) Cancelled Neut % (Auto) Cancelled Lymph % (Auto) Cancelled [place] % (Auto) Cancelled Eos % (Auto) Cancelled Baso % (Auto) Cancelled Lymph # (Auto) Cancelled [place] # (Auto) Cancelled Eos # (Auto) Cancelled Baso # (Auto) Cancelled Abs Immat Gran (auto) Cancelled Absolute Neuts (auto) Cancelled Absolute Nucleated RBC 0.000 Nucleated RBC % (auto) 0.0 Neutrophils % (Manual) 74 H Band Neutrophils % 23 H Lymphocytes % (Manual) 1 L Monocytes % (Manual) 2 Abs Neuts (Manual) 11.6 H Lymphocytes # (Manual) 0.1 L Monocytes # (Manual) 0.2 Toxic Vacuolation PRESENT Platelet Estimate NORMAL Plt Morphology Comment NORMAL RBC Morphology NOTED Acanthocytes (Spur) 3+ (>5) Smear Tech's Comments MANUAL DIFF Anion Gap 17 Estim Creat Clear Calc 58.7 Estimated GFR 55 POC Glucose Random Glucose 260 H Lactic Acid 2.3 H* Lactic Acid F/U @ 2Hr 3.0 H* Lactic Acid F/U @ 4Hr Calcium 9.4 Total Bilirubin 3.4 H Direct Bilirubin 2.2 H AST 309 H ALT 255 H Alkaline Phosphatase 211 H C-Reactive Protein 1.90 H Total Protein 7.2 Albumin 4.1 Triglycerides 48 Lipase 916 H Urine Color Yellow Urine Appearance Clear Urine pH >= 9.0 Ur Specific Kemp 1.015 Urine Protein Trace Urine Glucose (UA) 250 H Urine Ketones 40 Urine Blood Negative Urine Nitrite Negative Ur Leukocyte Esterase Negative Influenza Type A (PCR) NEGATIVE Influenza Type B (PCR) NEGATIVE RSV RNA Qual (PCR) NEGATIVE SARS-CoV-2 RNA (RT-PCR) NEGATIVE 01/19/25 01/19/25 01/20/25 18:44 22:15 08:10 MCV 85.4 MCH 28.0 MCHC 32.8 RDW 14.0 Plt Count 195 MPV 10.4 Immature Gran % (Auto) 0.9 H Neut % (Auto) 85.9 H Lymph % (Auto) 7.7 L [place] % (Auto) 4.0 Eos % (Auto) 1.1 Baso % (Auto) 0.4 Lymph # (Auto) 1.1 L [place] # (Auto) 0.6 Eos # (Auto) 0.2 Baso # (Auto) 0.1 Abs Immat Gran (auto) 0.13 H Absolute Neuts (auto) 12.4 H Absolute Nucleated RBC 0.000 Nucleated RBC % (auto) 0.0 Neutrophils % (Manual) Band Neutrophils % Lymphocytes % (Manual) Monocytes % (Manual) Abs Neuts (Manual) Lymphocytes # (Manual) Monocytes # (Manual) Toxic Vacuolation Platelet Estimate Plt Morphology Comment RBC Morphology Acanthocytes (Spur) Smear Tech's Comments Anion Gap 12 Estim Creat Clear Calc 73.4 Estimated GFR > 60 POC Glucose 196 H Random Glucose 120 H Lactic Acid Lactic Acid F/U @ 2Hr Lactic Acid F/U @ 4Hr 2.4 H* Calcium 8.5 D Total Bilirubin 3.7 H Direct Bilirubin AST 133 H ALT 201 H Alkaline Phosphatase 158 H C-Reactive Protein Total Protein 5.4 L Albumin 3.0 L Triglycerides Lipase Urine Color Urine Appearance Urine pH Ur Specific [place]emp Urine Protein Urine Glucose (UA) Urine Ketones Urine Blood Urine Nitrite Ur Leukocyte Esterase Influenza Type A (PCR) Influenza Type B (PCR) RSV RNA Qual (PCR) SARS-CoV-2 RNA (RT-PCR) 01/20/25 09:50 MCV MCH MCHC RDW Plt Count MPV Immature Gran % (Auto) Neut % (Auto) Lymph % (Auto) [place] % (Auto) Eos % (Auto) Baso % (Auto) Lymph # (Auto) [place] # (Auto) Eos # (Auto) Baso # (Auto) Abs Immat Gran (auto) Absolute Neuts (auto) Absolute Nucleated RBC Nucleated RBC % (auto) Neutrophils % (Manual) Band Neutrophils % Lymphocytes % (Manual) Monocytes % (Manual) Abs Neuts (Manual) Lymphocytes # (Manual) Monocytes # (Manual) Toxic Vacuolation Platelet Estimate Plt Morphology Comment RBC Morphology Acanthocytes (Spur) Smear Tech's Comments Anion Gap Estim Creat Clear Calc Estimated GFR POC Glucose 90 Random Glucose Lactic Acid Lactic Acid F/U @ 2Hr Lactic Acid F/U @ 4Hr Calcium Total Bilirubin Direct Bilirubin AST ALT Alkaline Phosphatase C-Reactive Protein Total Protein Albumin Triglycerides Lipase Urine Color Urine Appearance Urine pH Ur Specific Kemp Urine Protein Urine Glucose (UA) Urine Ketones Urine Blood Urine Nitrite Ur Leukocyte Esterase Influenza Type A (PCR) Influenza Type B (PCR) RSV RNA Qual (PCR) SARS-CoV-2 RNA (RT-PCR) Microbiology Microbiology Results: Microbiology 01/19/25 13:09 Blood Culture - Preliminary Blood - Venous Prelim: GNR Gram Stain only 01/19/25 13:09 Blood Culture - Preliminary Blood - Venous Prelim: GNR Gram Stain only Procedures Date of Service Date of Service: 01/20/25 Progress Note: A&P Assessment and plan (1) Abnormal LFTs: Status: Acute Plan 65 year old female being followed for possible cholecystitis. Patient found to have pancreatitis with elevated liver enzymes, total bilirubin, alk phos. Patients CT scan shows inflammatory changes around the gallbladder and pancreas without evidence of gallstones. patients pain improving, denies nausea vomiting currently. Exam significant for upper abdominal tenderness to palpation. Otherwise benign. GI consult appreciated. MRCP pending. Continue NPO Continue pain regimen Continue management of pancreatitis per GI MCRP results pending. Will continue to follow. Time Spent With Patient Time: Total time managing care of this patient today ____ minutes. Quality Stroke Does the patient have a stroke diagnosis?: No VTE Prior VTE?: No VTE Risk Level:: Medical - moderate - high VTE Device Contraindication: N/A - Device Ordered VTE Drug Contraindication: Treatment Not Indicated
--- NOTE | 2025-01-20 13:52 | HO.PM.IMPN ---
Subjective Subjective Date of Service: 01/20/25 Interval History: abd pain Review of Systems abd pain seems somewhat improving no fever or nausea or vomiting Review of Systems: Yes all other systems are reviewed and are negative Physical Exam Vital Signs: Vital Signs: Last Vital Signs Temp 98.7 F 01/20/25 08:00 Pulse 84 01/20/25 09:06 Resp 17 01/20/25 08:00 BP 125/58 L 01/20/25 09:07 Pulse Ox 99 01/20/25 08:00 O2 Del Method Room Air 01/20/25 08:00 BMI result Body Mass Index 28.2 Appearance: Alert.? Oriented X3.? cvs: rrr, [id number]. res: clear to auscultation ,no rhonchii or wheezing abd: no rebound or guarding ,epigastric discomfort, bs present. ext pulses present , no cyanosis. neuro: axo3 , nonfocal. Objective Data Active Medications Acyclovir (Acyclovir 200 Mg Capsule) 400 mg PO TID [facility] Last Admin: 01/20/25 09:06 Dose: 400 mg Documented By: JSOÉ Amitriptyline HCl (Amitriptyline Hcl 10 Mg Tablet) 5 mg PO BEDTIME CASANDRA Amlodipine Besylate (Amlodipine Besylate 2.5 Mg Tablet) 2.5 mg PO DAILY CASANDRA; Protocol Last Admin: 01/20/25 09:07 Dose: 2.5 mg Documented By: JOSÉ Calcium Carbonate (Calcium Carbonate 750 Mg Tab.Chew) 750 mg PO Q4H PRN PRN Reason: Heartburn Dextrose (Dextrose 50 % 25 Gm/50 Ml Syringe) 25 gm IVPUSH Q15M PRN; Protocol PRN Reason: per Hypoglycemia Standing Ord. Divalproex Sodium (Divalproex Sodium Er 500 Mg Tab.Er.24h) 1,000 mg PO BEDTIME CASANDRA Furosemide (Furosemide 40 Mg Tablet) 40 mg PO DAILY [facility]ANDRA; Protocol Last Admin: 01/20/25 09:06 Dose: 40 mg Documented By: JOSÉ Glucose (Glucose Gel 15 Gm Gel..Gram.) 15 gm PO Q15M PRN; Protocol PRN Reason: per Hypoglycemia Standing Ord. Piperacillin Sod/Tazobactam (Sod 4.5 gm/ Sodium Chloride) 100 mls @ 200 mls/hr IV Q6H [facility] Last Infusion: 01/20/25 10:41 Dose: Infused Documented By: JOSÉ Lactated Ringer's (Lr) 1,000 mls @ 100 mls/hr IVCONT .Q10H [facility] Last Admin: 01/20/25 08:06 Dose: 100 mls/hr Documented By: JOSÉ Insulin Human Lispro (Insulin Lispro 100 Unit/Ml 3 Ml Vial) 0 unit SUBCUT Q6H [facility]; Protocol Last Admin: 01/20/25 10:41 Dose: Not Given Documented By: JOSÉ Non-Admin Reason: No Insulin Coverage Magnesium Hydroxide (Milk Of Magnesia 30 Ml Oral.Susp) 30 ml PO DAILY PRN PRN Reason: Constipation Melatonin (Melatonin 3 Mg Tablet) 6 mg PO BEDTIME PRN PRN Reason: Insomnia Metoprolol Succinate (Metoprolol Succinate Er 25 Mg Tab.Er.24h) 25 mg PO DAILY [facility]; Protocol Last Admin: 01/20/25 09:06 Dose: 25 mg Documented By: JOSÉ Morphine Sulfate (Morphine Sulfate 4 Mg/Ml Cartridge) 4 mg IVPUSH Q4H PRN; Protocol PRN Reason: Pain, Severe (Pain Scale 7-10) Omeprazole (Omeprazole 20 Mg Capsule.Dr) 20 mg PO DAILY@0630 [facility] Last Admin: 01/20/25 09:07 Dose: 20 mg Documented By: JOSÉ Ondansetron HCl (Ondansetron Hcl 4 Mg/2 Ml Vial) 4 mg IVPUSH Q8H PRN PRN Reason: Nausea and Vomiting Polyethylene Glycol (Polyethylene Glycol 3350 17 Gm Powd.Pack) 17 gm PO DAILY [facility] Last Admin: 01/20/25 09:08 Dose: 17 gm Documented By: JOSÉ Ropinirole HCl (Ropinirole Hcl 0.25 Mg Tablet) 1 mg PO BEDTIME [facility] Senna/Docusate Sodium (Sennosides/Docusate Sodium Tablet) 1 tab PO Q2D@2100 [facility] Sodium Chloride (0.9 % Sodium Chloride Flush 3 Ml Syringe) 3 ml IVFLUSH QSHIFT [facility] Last Admin: 01/20/25 08:07 Dose: Not Given Documented By: JOSÉ Non-Admin Reason: IV Running Tolterodine Tartrate (Tolterodine Tartrate La 2 Mg Cap.Er.24h) 2 mg PO DAILY [facility] Labs 01/20/25 08:10 01/20/25 08:10 Labs: Laboratory Results - last 24 hr 01/19/25 01/19/25 01/19/25 11:09 15:23 18:44 MCV MCH MCHC RDW Plt Count MPV Immature Gran % (Auto) Neut % (Auto) Lymph % (Auto) [place] % (Auto) Eos % (Auto) Baso % (Auto) Lymph # (Auto) [place] # (Auto) Eos # (Auto) Baso # (Auto) Abs Immat Gran (auto) Absolute Neuts (auto) Absolute Nucleated RBC Nucleated RBC % (auto) Anion Gap Estim Creat Clear Calc Estimated GFR POC Glucose Random Glucose Lactic Acid F/U @ 2Hr 3.0 H* Lactic Acid F/U @ 4Hr 2.4 H* Calcium Total Bilirubin Direct Bilirubin 2.2 H AST ALT Alkaline Phosphatase Total Protein Albumin Triglycerides 48 01/19/25 01/20/25 01/20/25 22:15 08:10 09:50 MCV 85.4 MCH 28.0 MCHC 32.8 RDW 14.0 Plt Count 195 MPV 10.4 Immature Gran % (Auto) 0.9 H Neut % (Auto) 85.9 H Lymph % (Auto) 7.7 L [place] % (Auto) 4.0 Eos % (Auto) 1.1 Baso % (Auto) 0.4 Lymph # (Auto) 1.1 L [place] # (Auto) 0.6 Eos # (Auto) 0.2 Baso # (Auto) 0.1 Abs Immat Gran (auto) 0.13 H Absolute Neuts (auto) 12.4 H Absolute Nucleated RBC 0.000 Nucleated RBC % (auto) 0.0 Anion Gap 12 Estim Creat Clear Calc 73.4 Estimated GFR > 60 POC Glucose 196 H 90 Random Glucose 120 H Lactic Acid F/U @ 2Hr Lactic Acid F/U @ 4Hr Calcium 8.5 D Total Bilirubin 3.7 H Direct Bilirubin AST 133 H ALT 201 H Alkaline Phosphatase 158 H Total Protein 5.4 L Albumin 3.0 L Triglycerides Microbiology Microbiology Results: Microbiology 01/19/25 13:09 Blood Culture - Preliminary Blood - Venous Prelim: GNR Gram Stain only 01/19/25 13:09 Blood Culture - Preliminary Blood - Venous Prelim: GNR Gram Stain only Assessment and Plan (1) Acute pancreatitis: Status: Acute (2) Abnormal LFTs: Status: Acute Assessment and Plan: 65-year-old female with pertinent history of insulin-dependent diabetes mellitus with diabetic neuropathy, hypertension, mixed hyperlipidemia, mood disorder, gastroesophageal reflux disease, lower extremity edema, restless leg syndrome who presents to the emergency department for evaluation of abdominal pain. Acute interstitial pancreatitis: bowel rest, IV opioids p.r.n.,IV fluids and will keep patient NPO. Denies alcohol use. Noted elevated LFTs and alkaline phosphatase, obtaining MRCP to rule out CBD stone as a cause of gallstone pancreatitis. Triglyceride level pending. Imaging evidence of Focal thickening of gallbladder and pericholecystic fluid: Likely in the setting of above. Empiric IV antibiotics. General surgery on board. Acute lactic acidosis: Trending down with crystalloid resuscitation Insulin-dependent diabetes mellitus with hyperglycemia: Initiating Accu-Cheks with sliding scale insulin every 6 hours while patient is NPO Hypertension: Resume home antihypertensives once no longer NPO Mixed hyperlipidemia: Hold statin Mood disorder: Continue home mood stabilizers Gastroesophageal reflux disease: On PPI DVT prophylaxis: Mechanical. Hold Lovenox until surgical evaluation ongoing need : Pancreatitis/possible cholecystitis: Need IV pain medication, fluid, antibiotics as well as MRCP, GI/surgery workup pending. Quality Stroke Does the patient have a stroke diagnosis?: No VTE Prior VTE?: No VTE Risk Level:: Medical - moderate - high VTE Device Contraindication: N/A - Device Ordered VTE Drug Contraindication: Treatment Not Indicated
[2025-01-20] MEDS: Morphine Sulfate 4 MG/ML CARTRIDGE IVPUSH ×2 (15:59→20:30)
[2025-01-20 16:13] LABS: Glucose, Whole Blood 115 mg/dL (60-115)
[2025-01-20 20:03] LABS: Glucose, Whole Blood 117 mg/dL (60-115)
[2025-01-20] MEDS: Divalproex Sodium ER 500 MG TAB.ER.24H 1000 MG PO (20:33)
[2025-01-20] MEDS: rOPINIRole HCL 0.25 MG TABLET 1 MG PO (20:33)
[2025-01-20] MEDS: Sennosides/Docusate Sodium TABLET 1 TAB PO (20:33)
[2025-01-20] MEDS: Amitriptyline HCl 10 MG TABLET 5 MG PO (20:36)
--- NOTE | 2025-01-20 21:00 | PC.NURSE ---
This RN assumed care at 1900, AOx4, pt reports pain 8/10 abd & back pain. Meds given per nov, pt repositioned to R side to assist with back pain. Family member at bedside, Abd pain improved with morphine to 5/10. Purewhick in place for the night. Call mcneil within reach, no apparent distress noted at this time resting quietly in bed
[2025-01-20 22:12] LABS: Glucose, Whole Blood 109 mg/dL (60-115)
[2025-01-21] MEDS: Piperacillin Sodium/Tazobactam 4.5 GM in 0.9 % Sodium Chloride 100 ML IV ×4 (01:55→20:15)
[2025-01-21] MEDS: Lactated Ringers 1,000 ML 100 ML IVCONT ×3 (01:59→23:12)
[2025-01-21 03:32] LABS: Glucose, Whole Blood 93 mg/dL (60-115)
[2025-01-21] MEDS: Morphine Sulfate 4 MG/ML CARTRIDGE IVPUSH ×3 (05:25→17:58)
[2025-01-21] MEDS: Omeprazole 20 MG CAPSULE.DR PO (05:30)
[2025-01-21 07:23] LABS: Glucose, Whole Blood 96 mg/dL (60-115)
[2025-01-21 07:27] VITALS: BP 123/58; PULSE 74; RESP 18; TEMP 36.6; O2SAT 97
--- NOTE | 2025-01-21 07:42 | P.PNIM_ITS ---
Subjective Subjective Date of Service: 01/22/25 Interval History: abd pain Review of Systems has abd pain somewhat improving -mostly in epigastric/liver area no fever or chills Review of Systems: Yes all other systems are reviewed and are negative Physical Exam 2 Vital Signs: Vital Signs: Last Vital Signs Temp 97.9 F 01/21/25 07:27 Pulse 74 01/21/25 07:27 Resp 18 01/21/25 07:27 BP 123/58 L 01/21/25 07:27 Pulse Ox 97 01/21/25 07:27 O2 Del Method Room Air 01/21/25 07:27 BMI result Body Mass Index 28.2 Appearance: Alert.? Oriented X3.? cvs: rrr, [id number]. res: clear to auscultation ,no rhonchii or wheezing abd: no rebound or guarding , epigastric discomfort, bs present. ext pulses present , no cyanosis. neuro: axo3 , nonfocal. Objective Data Active Medications Acyclovir (Acyclovir 200 Mg Capsule) 400 mg PO TID [facility] Last Admin: 01/20/25 20:34 Dose: 400 mg Documented By: MARY Amitriptyline HCl (Amitriptyline Hcl 10 Mg Tablet) 5 mg PO BEDTIME [facility] Last Admin: 01/20/25 20:36 Dose: 5 mg Documented By: MARY Amlodipine Besylate (Amlodipine Besylate 2.5 Mg Tablet) 2.5 mg PO DAILY [facility]; Protocol Last Admin: 01/20/25 09:07 Dose: 2.5 mg Documented By: JOSÉ Calcium Carbonate (Calcium Carbonate 750 Mg Tab.Chew) 750 mg PO Q4H PRN PRN Reason: Heartburn Dextrose (Dextrose 50 % 25 Gm/50 Ml Syringe) 25 gm IVPUSH Q15M PRN; Protocol PRN Reason: per Hypoglycemia Standing Ord. Divalproex Sodium (Divalproex Sodium Er 500 Mg Tab.Er.24h) 1,000 mg PO BEDTIME [facility] Last Admin: 01/20/25 20:33 Dose: 1,000 mg Documented By: MARY Furosemide (Furosemide 40 Mg Tablet) 40 mg PO DAILY [facility]; Protocol Last Admin: 01/20/25 09:06 Dose: 40 mg Documented By: JOSÉ Glucose (Glucose Gel 15 Gm Gel..Gram.) 15 gm PO Q15M PRN; Protocol PRN Reason: per Hypoglycemia Standing Ord. Piperacillin Sod/Tazobactam (Sod 4.5 gm/ Sodium Chloride) 100 mls @ 200 mls/hr IV Q6H [facility] Last Infusion: 01/21/25 02:34 Dose: Infused Documented By: MARY Lactated Ringer's (Lr) 1,000 mls @ 100 mls/hr IVCONT .Q10H [facility] Last Infusion: 01/21/25 02:34 Dose: 100 mls/hr Documented By: MARY Insulin Human Lispro (Insulin Lispro 100 Unit/Ml 3 Ml Vial) 0 unit SUBCUT Q6H [facility]; Protocol Last Admin: 01/21/25 03:31 Dose: Not Given Documented By: MARY Non-Admin Reason: No Insulin Coverage Magnesium Hydroxide (Milk Of Magnesia 30 Ml Oral.Susp) 30 ml PO DAILY PRN PRN Reason: Constipation Melatonin (Melatonin 3 Mg Tablet) 6 mg PO BEDTIME PRN PRN Reason: Insomnia Metoprolol Succinate (Metoprolol Succinate Er 25 Mg Tab.Er.24h) 25 mg PO DAILY [facility]; Protocol Last Admin: 01/20/25 09:06 Dose: 25 mg Documented By: JOSÉ Morphine Sulfate (Morphine Sulfate 4 Mg/Ml Cartridge) 4 mg IVPUSH Q4H PRN; Protocol PRN Reason: Pain, Severe (Pain Scale 7-10) Last Admin: 01/21/25 05:25 Dose: 4 mg Documented By: MARY Omeprazole (Omeprazole 20 Mg Capsule.Dr) 20 mg PO DAILY@0630 [facility] Last Admin: 01/21/25 05:30 Dose: 20 mg Documented By: MARY Ondansetron HCl (Ondansetron Hcl 4 Mg/2 Ml Vial) 4 mg IVPUSH Q8H PRN PRN Reason: Nausea and Vomiting Polyethylene Glycol (Polyethylene Glycol 3350 17 Gm Powd.Pack) 17 gm PO DAILY [facility] Last Admin: 01/20/25 09:08 Dose: 17 gm Documented By: JOSÉ Ropinirole HCl (Ropinirole Hcl 0.25 Mg Tablet) 1 mg PO BEDTIME [facility] Last Admin: 01/20/25 20:33 Dose: 1 mg Documented By: MARY Senna/Docusate Sodium (Sennosides/Docusate Sodium Tablet) 1 tab PO Q2D@2100 [facility] Last Admin: 01/20/25 20:33 Dose: 1 tab Documented By: MARY Sodium Chloride (0.9 % Sodium Chloride Flush 3 Ml Syringe) 3 ml IVFLUSH QSHIFT [facility] Last Admin: 01/20/25 19:42 Dose: 3 ml Documented By: MARY Tolterodine Tartrate (Tolterodine Tartrate La 2 Mg Cap.Er.24h) 2 mg PO DAILY [facility] Last Admin: 01/20/25 09:30 Dose: Not Given Documented By: JOSÉ Non-Admin Reason: Med Not Available Labs 01/21/25 07:47 01/22/25 05:24 Labs: Laboratory Results - last 24 hr 01/20/25 01/20/25 01/20/25 08:10 09:50 16:09 MCV 85.4 MCH 28.0 MCHC 32.8 RDW 14.0 Plt Count 195 MPV 10.4 Immature Gran % (Auto) 0.9 H Neut % (Auto) 85.9 H Lymph % (Auto) 7.7 L [place] % (Auto) 4.0 Eos % (Auto) 1.1 Baso % (Auto) 0.4 Lymph # (Auto) 1.1 L [place] # (Auto) 0.6 Eos # (Auto) 0.2 Baso # (Auto) 0.1 Abs Immat Gran (auto) 0.13 H Absolute Neuts (auto) 12.4 H Absolute Nucleated RBC 0.000 Nucleated RBC % (auto) 0.0 Anion Gap 12 Estim Creat Clear Calc 73.4 Estimated GFR > 60 POC Glucose 90 115 Random Glucose 120 H Calcium 8.5 D Total Bilirubin 3.7 H AST 133 H ALT 201 H Alkaline Phosphatase 158 H Total Protein 5.4 L Albumin 3.0 L 01/20/25 01/20/25 01/21/25 19:58 22:09 03:28 MCV MCH MCHC RDW Plt Count MPV Immature Gran % (Auto) Neut % (Auto) Lymph % (Auto) [place] % (Auto) Eos % (Auto) Baso % (Auto) Lymph # (Auto) [place] # (Auto) Eos # (Auto) Baso # (Auto) Abs Immat Gran (auto) Absolute Neuts (auto) Absolute Nucleated RBC Nucleated RBC % (auto) Anion Gap Estim Creat Clear Calc Estimated GFR POC Glucose 117 H 109 93 Random Glucose Calcium Total Bilirubin AST ALT Alkaline Phosphatase Total Protein Albumin 01/21/25 07:19 MCV MCH MCHC RDW Plt Count MPV Immature Gran % (Auto) Neut % (Auto) Lymph % (Auto) [place] % (Auto) Eos % (Auto) Baso % (Auto) Lymph # (Auto) [place] # (Auto) Eos # (Auto) Baso # (Auto) Abs Immat Gran (auto) Absolute Neuts (auto) Absolute Nucleated RBC Nucleated RBC % (auto) Anion Gap Estim Creat Clear Calc Estimated GFR POC Glucose 96 Random Glucose Calcium Total Bilirubin AST ALT Alkaline Phosphatase Total Protein Albumin Microbiology Microbiology Results: Microbiology 01/19/25 13:09 Blood Culture - Preliminary Blood - Venous Prelim: GNR Gram Stain only 01/19/25 13:09 Blood Culture - Preliminary Blood - Venous Prelim: GNR Gram Stain only Assessment and Plan (1) Acute pancreatitis: Status: Acute Assessment and Plan: 65-year-old female with pertinent history of insulin-dependent diabetes mellitus with diabetic neuropathy, hypertension, mixed hyperlipidemia, mood disorder, gastroesophageal reflux disease, lower extremity edema, restless leg syndrome who presents to the emergency department for evaluation of abdominal pain. Acute interstitial pancreatitis, ? cholestasis , gram negative bacteremia bowel rest, IV opioids p.r.n.,IV fluids and will keep patient NPO. Denies alcohol use. Noted elevated LFTs and alkaline phosphatase, MRCP -No evidence of cholelithiasis or choledocholithiasis. Nonspecific pericholecystic fluid, as well as fluid surrounding the descending duodenum, and in the perinephric spaces. Findings could be secondary to acute pancreatitis involving the pancreatic head or duodenal ulcer disease. Acute cholecystitis appears less likely given lack of cholelithiasis or a positive sonographic Mendi[place] sign on recent ultrasound. HIDA: No gallbladder uptake up to 4 hours following isotope administration is consistent with acute cholecystitis. Findings suggestive of medical cholestasis. In the absence of abnormal common bile ductal dilatation on anatomical imaging, the absence of uptake on scintigraphy is most likely from medical cholestasis rather than ductal obstruction. Triglyceride level normal. plan: ivf , pain meds, antibiotics imaging reivewed and d/w surgery-less likelt cholecystsitis , Gi followup Gi follow up -elevated lft's ,bacteremia,cholestasis ua negative May need repeat MRI pancreas protocol in 4 weeks (no sooner to allow for interstitial edema to resolve for complete radiographic eval) if no underlying cause of pancreatitis identified Gi and surgery following Acute lactic acidosis: Trending down with crystalloid resuscitation Insulin-dependent diabetes mellitus with hyperglycemia: Initiating Accu-Cheks with sliding scale insulin every 6 hours while patient is NPO Hypertension: Resume home antihypertensives once no longer NPO Mixed hyperlipidemia: Hold statin Mood disorder: Continue home mood stabilizers Gastroesophageal reflux disease: On PPI DVT prophylaxis: Mechanical. Hold Lovenox until surgical evaluation ongoing need : Pancreatitis, enterobacter bacteremia : Need IV pain medication, fluid, antibiotics (2) Abnormal LFTs: Status: Acute Quality Stroke Does the patient have a stroke diagnosis?: No VTE Prior VTE?: No VTE Risk Level:: Medical - moderate - high VTE Device Contraindication: N/A - Device Ordered VTE Drug Contraindication: Treatment Not Indicated
[2025-01-21] MEDS: Metoprolol Succinate ER 25 MG TAB.ER.24H PO (07:57)
[2025-01-21] MEDS: Acyclovir 200 MG CAPSULE 400 MG PO ×3 (07:57→20:13)
[2025-01-21] MEDS: Furosemide 40 MG TABLET PO (07:57)
[2025-01-21] MEDS: Tolterodine Tartrate LA 2 MG CAP.ER.24H PO (07:57)
[2025-01-21] MEDS: amLODIPine Besylate 2.5 MG TABLET PO (07:57)
[2025-01-21] MEDS: polyethylene glycoL 3350 17 GM POWD.PACK PO (07:58)
[2025-01-21 08:14] LABS: Hematocrit 29.8 % (37.0-47.0); Hemoglobin 9.9 g/dl (12.0-16.0); Mean Corpuscular HGB Conc 33.2 g/dl (31.0-35.0); Mean Corpuscular Volume 84.2 fL (80.0-98.0); Mean Platelet Volume 10.4 fL (9.4-12.3); Platelet Count 178 X10*3/uL (160-400); Red Blood Count 3.54 X10*6/uL (4.20-5.50); Red Cell Distribution Width 13.9 % (11.0-16.0); White Blood Count 11.3 X10*3/uL (4.8-10.8)
[2025-01-21 08:47] LABS: Alanine Aminotransferase 165 U/L (0-31); Albumin Level 2.6 g/dL (3.5-5.0); Alkaline Phosphatase 246 U/L (39-117); Anion Gap 12 (12-20); Aspartate Amino Transferase 121 U/L (5-31); Bilirubin Total 3.3 mg/dL (0.0-1.0); Blood Urea Nitrogen 19 mg/dL (9-16); Calcium 8.1 mg/dL (8.4-10.2); Carbon Dioxide 26 mmol/L (22-29); Chloride 108 mmol/L (96-108); Estimated Glomerular Filt Rate > 60; Glucose Random 97 mg/dL (60-115); Potassium 2.8 mmol/L (3.3-5.1); Sodium 143 mmol/L (135-145)
[2025-01-21] MEDS: Potassium Chloride/H20 10 MEQ/100 ML PIGGYBACK 100 MEQ IV ×4 (09:12→12:06)
[2025-01-21 10:28] LABS: Glucose, Whole Blood 76 mg/dL (60-115)
[2025-01-21 11:29] LABS: Glucose, Whole Blood 87 mg/dL (60-115)
[2025-01-21 11:43] LABS: Magnesium 1.5 mg/dL (1.6-2.6)
[2025-01-21 15:09] VITALS: BP 126/59; PULSE 79; RESP 18; TEMP 36.4; O2SAT 99
[2025-01-21 16:08] LABS: Glucose, Whole Blood 67 mg/dL (60-115)
[2025-01-21 16:29] LABS: Glucose, Whole Blood 74 mg/dL (60-115)
[2025-01-21] MEDS: Potassium Chloride ER 20 MEQ TAB.ER.PRT PO (16:42)
[2025-01-21] MEDS: Magnesium Sulfate/D5W 1 GM/100 ML PIGGYBACK IV (17:26)
[2025-01-21 19:02] VITALS: BP 131/63; PULSE 75; RESP 18; TEMP 36.7; O2SAT 97
--- NOTE | 2025-01-21 19:09 | PM.PNGS ---
Subjective Subjective Date of Service: 01/21/25 Interval history: Patient feeling okay no nausea a little bit of pain in the epigastric area. HIDA scan yesterday night carried out with final results showing uptake into the liver but no excretion into the biliary tree system nor into the gallbladder or the small bowel. It seems like it is more of a medical cholestasis issue. Uncertain why etiology. Physical Exam Vital Signs: Vital Signs: Last Vital Signs Temp 98.1 F 01/21/25 19:02 Pulse 75 01/21/25 19:02 Resp 18 01/21/25 19:02 BP 131/63 01/21/25 19:02 Pulse Ox 97 01/21/25 19:02 O2 Del Method Room Air 01/21/25 19:02 BMI result Body Mass Index 28.2 GI: Other: Abdomen is soft nondistended little tender in the epigastric and right upper quadrant mild guarding no rebound no peritoneal signs Objective Data Active Medications Acyclovir (Acyclovir 200 Mg Capsule) 400 mg PO TID [facility] Last Admin: 01/21/25 14:29 Dose: 400 mg Documented By: JOSÉ Amitriptyline HCl (Amitriptyline Hcl 10 Mg Tablet) 5 mg PO BEDTIME [facility] Last Admin: 01/20/25 20:36 Dose: 5 mg Documented By: MARY Amlodipine Besylate (Amlodipine Besylate 2.5 Mg Tablet) 2.5 mg PO DAILY [facility]; Protocol Last Admin: 01/21/25 07:57 Dose: 2.5 mg Documented By: JOSÉ Calcium Carbonate (Calcium Carbonate 750 Mg Tab.Chew) 750 mg PO Q4H PRN PRN Reason: Heartburn Dextrose (Dextrose 50 % 25 Gm/50 Ml Syringe) 25 gm IVPUSH Q15M PRN; Protocol PRN Reason: per Hypoglycemia Standing Ord. Divalproex Sodium (Divalproex Sodium Er 500 Mg Tab.Er.24h) 1,000 mg PO BEDTIME [facility] Last Admin: 01/20/25 20:33 Dose: 1,000 mg Documented By: MARY Furosemide (Furosemide 40 Mg Tablet) 40 mg PO DAILY [facility]; Protocol Last Admin: 01/21/25 07:57 Dose: 40 mg Documented By: JOSÉ Glucose (Glucose Gel 15 Gm Gel..Gram.) 15 gm PO Q15M PRN; Protocol PRN Reason: per Hypoglycemia Standing Ord. Piperacillin Sod/Tazobactam (Sod 4.5 gm/ Sodium Chloride) 100 mls @ 200 mls/hr IV Q6H [facility] Last Infusion: 01/21/25 14:30 Dose: Infused Documented By: JOSÉ Lactated Ringer's (Lr) 1,000 mls @ 100 mls/hr IVCONT .Q10H [facility] Last Admin: 01/21/25 12:06 Dose: 100 mls/hr Documented By: JOSÉ Insulin Human Lispro (Insulin Lispro 100 Unit/Ml 3 Ml Vial) 0 unit SUBCUT QIDACHS [facility]; Protocol Last Admin: 01/21/25 16:29 Dose: Not Given Documented By: JOSÉ Non-Admin Reason: No Insulin Coverage Magnesium Hydroxide (Milk Of Magnesia 30 Ml Oral.Susp) 30 ml PO DAILY PRN PRN Reason: Constipation Melatonin (Melatonin 3 Mg Tablet) 6 mg PO BEDTIME PRN PRN Reason: Insomnia Metoprolol Succinate (Metoprolol Succinate Er 25 Mg Tab.Er.24h) 25 mg PO DAILY [facility]; Protocol Last Admin: 01/21/25 07:57 Dose: 25 mg Documented By: JOSÉ Morphine Sulfate (Morphine Sulfate 4 Mg/Ml Cartridge) 4 mg IVPUSH Q4H PRN; Protocol PRN Reason: Pain, Severe (Pain Scale 7-10) Last Admin: 01/21/25 17:58 Dose: 4 mg Documented By: JOSÉ Omeprazole (Omeprazole 20 Mg Capsule.Dr) 20 mg PO DAILY@0630 [facility] Last Admin: 01/21/25 05:30 Dose: 20 mg Documented By: MARY Ondansetron HCl (Ondansetron Hcl 4 Mg/2 Ml Vial) 4 mg IVPUSH Q8H PRN PRN Reason: Nausea and Vomiting Polyethylene Glycol (Polyethylene Glycol 3350 17 Gm Powd.Pack) 17 gm PO DAILY [facility] Last Admin: 01/21/25 07:58 Dose: 17 gm Documented By: JOSÉ Ropinirole HCl (Ropinirole Hcl 0.25 Mg Tablet) 1 mg PO BEDTIME [facility] Last Admin: 01/20/25 20:33 Dose: 1 mg Documented By: MARY Senna/Docusate Sodium (Sennosides/Docusate Sodium Tablet) 1 tab PO Q2D@2100 [facility] Last Admin: 01/20/25 20:33 Dose: 1 tab Documented By: MARY Sodium Chloride (0.9 % Sodium Chloride Flush 3 Ml Syringe) 3 ml IVFLUSH QSHIFT [facility] Last Admin: 01/21/25 15:12 Dose: Not Given Documented By: JOSÉ Non-Admin Reason: IV Running Tolterodine Tartrate (Tolterodine Tartrate La 2 Mg Cap.Er.24h) 2 mg PO DAILY [facility] Last Admin: 01/21/25 07:57 Dose: 2 mg Documented By: JOSÉ Labs 01/21/25 07:47 01/21/25 07:47 Labs: Laboratory Results - last 24 hr 01/20/25 01/20/25 01/21/25 19:58 22:09 03:28 MCV MCH MCHC RDW Plt Count MPV Absolute Nucleated RBC Nucleated RBC % (auto) Anion Gap Estim Creat Clear Calc Estimated GFR POC Glucose 117 H 109 93 Random Glucose Calcium Magnesium Total Bilirubin AST ALT Alkaline Phosphatase Total Protein Albumin 01/21/25 01/21/25 01/21/25 07:19 07:47 10:23 MCV 84.2 MCH 28.0 MCHC 33.2 RDW 13.9 Plt Count 178 MPV 10.4 Absolute Nucleated RBC 0.000 Nucleated RBC % (auto) 0.0 Anion Gap 12 Estim Creat Clear Calc 84.0 Estimated GFR > 60 POC Glucose 96 76 Random Glucose 97 Calcium 8.1 L Magnesium 1.5 L Total Bilirubin 3.3 H AST 121 H ALT 165 H Alkaline Phosphatase 246 H Total Protein 5.0 L Albumin 2.6 L 01/21/25 01/21/25 01/21/25 11:12 16:04 16:25 MCV MCH MCHC RDW Plt Count MPV Absolute Nucleated RBC Nucleated RBC % (auto) Anion Gap Estim Creat Clear Calc Estimated GFR POC Glucose 87 67 74 Random Glucose Calcium Magnesium Total Bilirubin AST ALT Alkaline Phosphatase Total Protein Albumin Microbiology Microbiology Results: Microbiology 01/19/25 13:09 Blood Culture - Preliminary Blood - Venous Gram negative helder 01/19/25 13:09 Blood Culture - Preliminary Blood - Venous Gram negative helder Procedures Date of Service Date of Service: 01/21/25 Progress Note: A&P Assessment and plan (1) Acute pancreatitis: Status: Acute Assessment and Plan: Patient's diagnosis is still a little uncertain but it seems that clinically she is doing little bit better improving from her pancreatitis. By definition no uptake in the HIDA scan into the gallbladder is consistent with cholecystitis but she has no excretion of any contrast into the bile tree system and as a result she should not have any possibility to uptake into the gallbladder. This is either secondary to liver issue or then significant obstruction in the bile tree however the MRCP did not reveal any significant dilated duct or obstructive stone or tumor or mass. This was all discussed with GI who recommends continuing to follow clinically and see how she does. At this point I am not convinced that she has cholecystitis and plan is to continue with treatment of her pancreatitis which maybe biliary pancreatitis in origin. We will continue just slow advancement with clear liquids and follow her course with her pancreatitis. At some point follow her LFTs and may consider doing laparoscopic cholecystectomy. At this point there is no urgent need to do this and goal will be to have the pancreatitis improve. Extensive discussion was had about this patient with GI and hospitalist team and they agree with the plan (2) Abnormal LFTs: Status: Acute Time Spent With Patient Time: Total time managing care of this patient today ____ minutes. Quality Stroke Does the patient have a stroke diagnosis?: No VTE Prior VTE?: No VTE Risk Level:: Medical - moderate - high VTE Device Contraindication: N/A - Device Ordered VTE Drug Contraindication: Treatment Not Indicated
[2025-01-21] MEDS: Divalproex Sodium ER 500 MG TAB.ER.24H 1000 MG PO (20:11)
[2025-01-21] MEDS: rOPINIRole HCL 0.25 MG TABLET 1 MG PO (20:12)
[2025-01-21] MEDS: Amitriptyline HCl 10 MG TABLET 5 MG PO (20:13)
[2025-01-21 21:11] LABS: Glucose, Whole Blood 171 mg/dL (60-115)
[2025-01-21 23:39] VITALS: BP 127/59; PULSE 68; RESP 16; TEMP 36; O2SAT 97
[2025-01-22] MEDS: Piperacillin Sodium/Tazobactam 4.5 GM in 0.9 % Sodium Chloride 100 ML IV ×2 (01:47→08:34)
[2025-01-22] MEDS: Calcium Carbonate 750 MG TAB.CHEW PO (02:23)
--- NOTE | 2025-01-22 05:01 | PC.NURSE ---
This RN assumed care at 1900, AOx4, djiboutian speaking, voyce teacher of the deaf used when necessary. No reports of pain, pt has reported one episode of heartburn, joellen's appeared to help. Pt able to use commode with standby assist throughout the night, Respiration even and non-labored, lung sounds clear, BSx4, non-tender with palpation, non-pitting to Right Hand, IV removed on day shift to [facility], IVF running. pt reports being able to tolerate clear liquid diet as of right now. Denies N/V Pt reports wanting to talk to surgeon in the morning about wanting to remove gallbladder, pt reassured she can talk to doctor in the morning. Pt allowed to sleep at this time resting quietly with no distress, VSS. Call mcneil with in reach.
[2025-01-22] MEDS: Omeprazole 20 MG CAPSULE.DR PO (06:09)
[2025-01-22] MEDS: Morphine Sulfate 4 MG/ML CARTRIDGE IVPUSH ×2 (06:11→20:16)
[2025-01-22 06:51] LABS: Alanine Aminotransferase 167 U/L (0-31); Albumin Level 2.6 g/dL (3.5-5.0); Alkaline Phosphatase 381 U/L (39-117); Anion Gap 11 (12-20); Aspartate Amino Transferase 106 U/L (5-31); Bilirubin Total 2.1 mg/dL (0.0-1.0); Blood Urea Nitrogen 14 mg/dL (9-16); Calcium 8.2 mg/dL (8.4-10.2); Carbon Dioxide 27 mmol/L (22-29); Chloride 105 mmol/L (96-108); Creatinine Clr Calc Pharmacy 87.7; Estimated Glomerular Filt Rate > 60; Glucose Random 121 mg/dL (60-115); Lipase 184 U/L (8-78); Potassium 3.7 mmol/L (3.3-5.1); Sodium 139 mmol/L (135-145); Total Protein 5.2 g/dL (6.5-8.0)
[2025-01-22] MEDS: ondansetron HCL 4 MG/2 ML VIAL IVPUSH ×2 (07:21→16:52)
[2025-01-22 07:22] LABS: Glucose, Whole Blood 108 mg/dL (60-115)
[2025-01-22 07:37] VITALS: BP 131/62; PULSE 61; RESP 16; TEMP 36; O2SAT 97
[2025-01-22] MEDS: Furosemide 40 MG TABLET PO (08:33)
[2025-01-22] MEDS: Tolterodine Tartrate LA 2 MG CAP.ER.24H PO (08:33)
[2025-01-22] MEDS: Acyclovir 200 MG CAPSULE 400 MG PO ×3 (08:33→20:01)
[2025-01-22] MEDS: Metoprolol Succinate ER 25 MG TAB.ER.24H PO (08:34)
[2025-01-22] MEDS: Simethicone 80 MG TAB.CHEW PO (08:34)
[2025-01-22] MEDS: amLODIPine Besylate 2.5 MG TABLET PO (08:34)
[2025-01-22] MEDS: polyethylene glycoL 3350 17 GM POWD.PACK PO (08:35)
[2025-01-22] MEDS: Milk of Magnesia 30 ML ORAL.SUSP PO (08:35)
[2025-01-22] MEDS: Lactated Ringers 1,000 ML 100 ML IVCONT ×2 (09:06→20:03)
[2025-01-22 11:00] LABS: Glucose, Whole Blood 111 mg/dL (60-115)
[2025-01-22] MEDS: cefEPime HCl/D5W 2 GM/50 ML PIGGYBACK IV ×2 (12:19→20:02)
--- NOTE | 2025-01-22 14:37 | HO.PM.IMPN ---
Subjective Subjective Date of Service: 01/22/25 Interval History: abd pain Review of Systems nausea and abd pain seems improving Review of Systems: Yes all other systems are reviewed and are negative Physical Exam Vital Signs: Vital Signs: Last Vital Signs Temp 96.8 F 01/22/25 07:37 Pulse 61 01/22/25 07:37 Resp 16 01/22/25 07:37 BP 131/62 01/22/25 07:37 Pulse Ox 97 01/22/25 07:37 O2 Del Method Room Air 01/22/25 07:37 BMI result Body Mass Index 28.2 Appearance: Alert.? Oriented X3.? cvs: rrr, [id number]. res: clear to auscultation ,no rhonchii or wheezing abd: no rebound or guarding , epigastric discomfort, bs present. ext pulses present , no cyanosis. neuro: axo3 , nonfocal. Objective Data Active Medications Acyclovir (Acyclovir 200 Mg Capsule) 400 mg PO TID [facility] Last Admin: 01/22/25 08:33 Dose: 400 mg Documented By: JOSÉ Amitriptyline HCl (Amitriptyline Hcl 10 Mg Tablet) 5 mg PO BEDTIME [facility] Last Admin: 01/21/25 20:13 Dose: 5 mg Documented By: MARY Amlodipine Besylate (Amlodipine Besylate 2.5 Mg Tablet) 2.5 mg PO DAILY [facility]; Protocol Last Admin: 01/22/25 08:34 Dose: 2.5 mg Documented By: JOSÉ Calcium Carbonate (Calcium Carbonate 750 Mg Tab.Chew) 750 mg PO Q4H PRN PRN Reason: Heartburn Last Admin: 01/22/25 02:23 Dose: 750 mg Documented By: MARY Dextrose (Dextrose 50 % 25 Gm/50 Ml Syringe) 25 gm IVPUSH Q15M PRN; Protocol PRN Reason: per Hypoglycemia Standing Ord. Divalproex Sodium (Divalproex Sodium Er 500 Mg Tab.Er.24h) 1,000 mg PO BEDTIME [facility] Last Admin: 01/21/25 20:11 Dose: 1,000 mg Documented By: MARY Furosemide (Furosemide 40 Mg Tablet) 40 mg PO DAILY [facility]; Protocol Last Admin: 01/22/25 08:33 Dose: 40 mg Documented By: JOSÉ Glucose (Glucose Gel 15 Gm Gel..Gram.) 15 gm PO Q15M PRN; Protocol PRN Reason: per Hypoglycemia Standing Ord. Lactated Ringer's (Lr) 1,000 mls @ 100 mls/hr IVCONT .Q10H [facility] Last Admin: 01/22/25 09:06 Dose: 100 mls/hr Documented By: JOSÉ Cefepime HCl (Maxipime) 2 gm in 50 mls @ 100 mls/hr IV Q8H [facility] Last Infusion: 01/22/25 12:51 Dose: Infused Documented By: JOSÉ Insulin Human Lispro (Insulin Lispro 100 Unit/Ml 3 Ml Vial) 0 unit SUBCUT QIDACHS [facility]; Protocol Last Admin: 01/22/25 11:24 Dose: Not Given Documented By: JOSÉ Non-Admin Reason: No Insulin Coverage Magnesium Hydroxide (Milk Of Magnesia 30 Ml Oral.Susp) 30 ml PO DAILY PRN PRN Reason: Constipation Last Admin: 01/22/25 08:35 Dose: 30 ml Documented By: JOSÉ Melatonin (Melatonin 3 Mg Tablet) 6 mg PO BEDTIME PRN PRN Reason: Insomnia Metoprolol Succinate (Metoprolol Succinate Er 25 Mg Tab.Er.24h) 25 mg PO DAILY [facility]; Protocol Last Admin: 01/22/25 08:34 Dose: 25 mg Documented By: JOSÉ Morphine Sulfate (Morphine Sulfate 4 Mg/Ml Cartridge) 4 mg IVPUSH Q4H PRN; Protocol PRN Reason: Pain, Severe (Pain Scale 7-10) Last Admin: 01/22/25 06:11 Dose: 4 mg Documented By: MARY Omeprazole (Omeprazole 20 Mg Capsule.Dr) 20 mg PO DAILY@0630 [facility] Last Admin: 01/22/25 06:09 Dose: 20 mg Documented By: MARY Ondansetron HCl (Ondansetron Hcl 4 Mg/2 Ml Vial) 4 mg IVPUSH Q8H PRN PRN Reason: Nausea and Vomiting Last Admin: 01/22/25 07:21 Dose: 4 mg Documented By: JOSÉ Polyethylene Glycol (Polyethylene Glycol 3350 17 Gm Powd.Pack) 17 gm PO DAILY [facility] Last Admin: 01/22/25 08:35 Dose: 17 gm Documented By: JOSÉ Ropinirole HCl (Ropinirole Hcl 0.25 Mg Tablet) 1 mg PO BEDTIME [facility] Last Admin: 01/21/25 20:12 Dose: 1 mg Documented By: MARY Senna/Docusate Sodium (Sennosides/Docusate Sodium Tablet) 1 tab PO Q2D@2100 [facility] Last Admin: 01/20/25 20:33 Dose: 1 tab Documented By: MARY Sodium Chloride (0.9 % Sodium Chloride Flush 3 Ml Syringe) 3 ml IVFLUSH QSHIFT [facility] Last Admin: 01/22/25 14:36 Dose: Not Given Documented By: JOSÉ Non-Admin Reason: IV Running Tolterodine Tartrate (Tolterodine Tartrate La 2 Mg Cap.Er.24h) 2 mg PO DAILY [facility] Last Admin: 01/22/25 08:33 Dose: 2 mg Documented By: JOSÉ Labs 01/21/25 07:47 01/22/25 05:24 Labs: Laboratory Results - last 24 hr 01/21/25 01/21/25 01/21/25 16:04 16:25 21:08 Hold Purple Top Anion Gap Estim Creat Clear Calc Estimated GFR POC Glucose 67 74 171 H Random Glucose Calcium Total Bilirubin AST ALT Alkaline Phosphatase Total Protein Albumin Lipase 01/22/25 01/22/25 01/22/25 05:24 06:09 07:19 Hold Purple Top SEE NOTE Anion Gap 11 L Estim Creat Clear Calc 87.7 Estimated GFR > 60 POC Glucose 108 Random Glucose 121 H Calcium 8.2 L Total Bilirubin 2.1 H AST 106 H ALT 167 H Alkaline Phosphatase 381 H Total Protein 5.2 L Albumin 2.6 L Lipase 184 H 01/22/25 10:57 Hold Purple Top Anion Gap Estim Creat Clear Calc Estimated GFR POC Glucose 111 Random Glucose Calcium Total Bilirubin AST ALT Alkaline Phosphatase Total Protein Albumin Lipase Microbiology Microbiology Results: Microbiology 01/19/25 13:09 Blood Culture - Final Blood - Venous Enterobacter cloacae complex 01/19/25 13:09 Blood Culture - Final Blood - Venous Enterobacter cloacae complex Assessment and Plan (1) Acute pancreatitis: Status: Acute (2) Abnormal LFTs: Status: Acute (3) Bacteremia due to Enterobacter species: Status: Acute Assessment and Plan: 65-year-old female with pertinent history of insulin-dependent diabetes mellitus with diabetic neuropathy, hypertension, mixed hyperlipidemia, mood disorder, gastroesophageal reflux disease, lower extremity edema, restless leg syndrome who presents to the emergency department for evaluation of abdominal pain. Acute interstitial pancreatitis, ? cholestasis , gram negative bacteremia elevated LFTs and alkaline phosphatase MRCP -No evidence of cholelithiasis or choledocholithiasis. Nonspecific pericholecystic fluid, as well as fluid surrounding the descending duodenum, and in the perinephric spaces. Findings could be secondary to acute pancreatitis involving the pancreatic head or duodenal ulcer disease. Acute cholecystitis appears less likely given lack of cholelithiasis or a positive sonographic Mendieta sign on recent ultrasound. HIDA: No gallbladder uptake up to 4 hours following isotope administration is consistent with acute cholecystitis.Findings suggestive of medical cholestasis. In the absence of abnormal common bile ductal dilatation on anatomical imaging, the absence of uptake on scintigraphy is most likely from medical cholestasis rather than ductal obstruction. Triglyceride level normal. plan: continue ivf , pain meds, antibiotics imaging reivewed and d/w surgery-less likely cholecystsitis. Gi follow up -elevated lft's, cholestasis ?,enterobactor cloacae-senstive to cefepime,cipro,bactrim, entropenem. ua negative repeat blood culture , echo May need repeat MRI pancreas protocol in 4 weeks (no sooner to allow for interstitial edema to resolve for complete radiographic eval) if no underlying cause of pancreatitis identified Gi and surgery following Acute lactic acidosis: Trending down with ivf , no further trending unless clinicaldeterioration. Insulin-dependent diabetes mellitus with hyperglycemia: Initiating Accu-Cheks with sliding scale insulin every 6 hours while patient is NPO Hypertension: Resume home meds. Mixed hyperlipidemia: Hold statin Mood disorder: Continue home mood stabilizers Gastroesophageal reflux disease: On PPI DVT prophylaxis: Mechanical. add s/c lovenox ongoing need : Pancreatitis, enterobacter bacteremia : Need IV pain medication, fluid, antibiotics . patient and her family updated. Quality Stroke Does the patient have a stroke diagnosis?: No VTE Prior VTE?: No VTE Risk Level:: Medical - moderate - high VTE Device Contraindication: N/A - Device Ordered VTE Drug Contraindication: Treatment Not Indicated
[2025-01-22 15:15] VITALS: BP 142/63; PULSE 67; RESP 16; TEMP 36.2; O2SAT 97
[2025-01-22 16:13] LABS: Glucose, Whole Blood 148 mg/dL (60-115)
[2025-01-22] MEDS: Enoxaparin Sodium 40 MG/0.4 ML SYRINGE SUBCUT (16:42)
--- NOTE | 2025-01-22 17:39 | PC.NURSE ---
Pt without BM since prior to admission. States she is passing gas but needs something to move bowels. MOM given - pt had 4 BMs this shift. Some incontinence in a pullup otherwise to BR with walker. Denied abdominal pain this shift. C/o nausea relieved by zofran
--- NOTE | 2025-01-22 18:25 | P.PNGS_ITS ---
Subjective Subjective Date of Service: 01/22/25 Interval history: Patient continues to do better than she was yesterday but still with abdominal pain in the epigastric and slightly right upper quadrant with palpation. No nausea or vomiting. Lipase number has come down. Physical Exam 2 Vital Signs: Vital Signs: Last Vital Signs Temp 97.1 F 01/22/25 15:15 Pulse 67 01/22/25 15:15 Resp 16 01/22/25 15:15 BP 142/63 H 01/22/25 15:15 Pulse Ox 97 01/22/25 15:15 O2 Del Method Room Air 01/22/25 15:15 BMI result Body Mass Index 28.2 Const: General: cooperative, healthy appearing and comfortable GI: Other: Abdomen is soft nondistended tender in the epigastric to right upper quadrant area no significant guarding or rebound Objective Data Active Medications Acyclovir (Acyclovir 200 Mg Capsule) 400 mg PO TID [facility] Last Admin: 01/22/25 14:42 Dose: 400 mg Documented By: JOSÉ Amitriptyline HCl (Amitriptyline Hcl 10 Mg Tablet) 5 mg PO BEDTIME [facility] Last Admin: 01/21/25 20:13 Dose: 5 mg Documented By: MARY Amlodipine Besylate (Amlodipine Besylate 2.5 Mg Tablet) 2.5 mg PO DAILY [facility]; Protocol Last Admin: 01/22/25 08:34 Dose: 2.5 mg Documented By: JOSÉ Calcium Carbonate (Calcium Carbonate 750 Mg Tab.Chew) 750 mg PO Q4H PRN PRN Reason: Heartburn Last Admin: 01/22/25 02:23 Dose: 750 mg Documented By: MARY Dextrose (Dextrose 50 % 25 Gm/50 Ml Syringe) 25 gm IVPUSH Q15M PRN; Protocol PRN Reason: per Hypoglycemia Standing Ord. Divalproex Sodium (Divalproex Sodium Er 500 Mg Tab.Er.24h) 1,000 mg PO BEDTIME [facility] Last Admin: 01/21/25 20:11 Dose: 1,000 mg Documented By: MARY Enoxaparin Sodium (Enoxaparin Sodium 40 Mg/0.4 Ml Syringe) 40 mg SUBCUT Q24H [facility] Last Admin: 01/22/25 16:42 Dose: 40 mg Documented By: JOSÉ Furosemide (Furosemide 40 Mg Tablet) 40 mg PO DAILY [facility]; Protocol Last Admin: 01/22/25 08:33 Dose: 40 mg Documented By: JOSÉ Glucose (Glucose Gel 15 Gm Gel..Gram.) 15 gm PO Q15M PRN; Protocol PRN Reason: per Hypoglycemia Standing Ord. Lactated Ringer's (Lr) 1,000 mls @ 100 mls/hr IVCONT .Q10H [facility] Last Admin: 01/22/25 09:06 Dose: 100 mls/hr Documented By: JOSÉ Cefepime HCl (Maxipime) 2 gm in 50 mls @ 100 mls/hr IV Q8H [facility] Last Infusion: 01/22/25 12:51 Dose: Infused Documented By: JOSÉ Insulin Human Lispro (Insulin Lispro 100 Unit/Ml 3 Ml Vial) 0 unit SUBCUT QIDACHS [facility]; Protocol Last Admin: 01/22/25 16:15 Dose: Not Given Documented By: JOSÉ Non-Admin Reason: No Insulin Coverage Magnesium Hydroxide (Milk Of Magnesia 30 Ml Oral.Susp) 30 ml PO DAILY PRN PRN Reason: Constipation Last Admin: 01/22/25 08:35 Dose: 30 ml Documented By: JOSÉ Melatonin (Melatonin 3 Mg Tablet) 6 mg PO BEDTIME PRN PRN Reason: Insomnia Metoprolol Succinate (Metoprolol Succinate Er 25 Mg Tab.Er.24h) 25 mg PO DAILY [facility]; Protocol Last Admin: 01/22/25 08:34 Dose: 25 mg Documented By: JOSÉ Morphine Sulfate (Morphine Sulfate 4 Mg/Ml Cartridge) 4 mg IVPUSH Q4H PRN; Protocol PRN Reason: Pain, Severe (Pain Scale 7-10) Last Admin: 01/22/25 06:11 Dose: 4 mg Documented By: MARY Omeprazole (Omeprazole 20 Mg Capsule.Dr) 20 mg PO DAILY@0630 [facility] Last Admin: 01/22/25 06:09 Dose: 20 mg Documented By: MARY Ondansetron HCl (Ondansetron Hcl 4 Mg/2 Ml Vial) 4 mg IVPUSH Q8H PRN PRN Reason: Nausea and Vomiting Last Admin: 01/22/25 16:52 Dose: 4 mg Documented By: JOSÉ Polyethylene Glycol (Polyethylene Glycol 3350 17 Gm Powd.Pack) 17 gm PO DAILY [facility] Last Admin: 01/22/25 08:35 Dose: 17 gm Documented By: JOSÉ Ropinirole HCl (Ropinirole Hcl 0.25 Mg Tablet) 1 mg PO BEDTIME [facility] Last Admin: 01/21/25 20:12 Dose: 1 mg Documented By: MARY Senna/Docusate Sodium (Sennosides/Docusate Sodium Tablet) 1 tab PO Q2D@2100 [facility] Last Admin: 01/20/25 20:33 Dose: 1 tab Documented By: MARY Sodium Chloride (0.9 % Sodium Chloride Flush 3 Ml Syringe) 3 ml IVFLUSH QSHIFT [facility] Last Admin: 01/22/25 14:36 Dose: Not Given Documented By: JOSÉ Non-Admin Reason: IV Running Tolterodine Tartrate (Tolterodine Tartrate La 2 Mg Cap.Er.24h) 2 mg PO DAILY [facility] Last Admin: 01/22/25 08:33 Dose: 2 mg Documented By: JOSÉ Labs 01/21/25 07:47 01/22/25 05:24 Labs: Laboratory Results - last 24 hr 01/21/25 01/22/25 01/22/25 21:08 05:24 06:09 Hold Purple Top SEE NOTE Anion Gap 11 L Estim Creat Clear Calc 87.7 Estimated GFR > 60 POC Glucose 171 H Random Glucose 121 H Calcium 8.2 L Total Bilirubin 2.1 H AST 106 H ALT 167 H Alkaline Phosphatase 381 H Total Protein 5.2 L Albumin 2.6 L Lipase 184 H 01/22/25 01/22/25 01/22/25 07:19 10:57 16:10 Hold Purple Top Anion Gap Estim Creat Clear Calc Estimated GFR POC Glucose 108 111 148 H Random Glucose Calcium Total Bilirubin AST ALT Alkaline Phosphatase Total Protein Albumin Lipase Microbiology Microbiology Results: Microbiology 01/19/25 13:09 Blood Culture - Final Blood - Venous Enterobacter cloacae complex 01/19/25 13:09 Blood Culture - Final Blood - Venous Enterobacter cloacae complex Procedures Date of Service Date of Service: 01/22/25 Progress Note: A&P Assessment and plan (1) Pancreatitis: Status: Acute Assessment and Plan: 65-year-old female with improving pancreatitis but still with some symptoms. Question of reason pancreatitis and thinking that this maybe biliary in origin maybe she passed a stone which triggered this but now there is no evidence of this. Patient's HIDA scan is consistent with cholestasis but there was no filling of the gallbladder but no filling of the bile ducts but then MRCP did not show any high obstruction. Discussion with GI as well as with medical team plan is to continue conservative care until her pancreatitis completely improves and then consider laparoscopic cholecystectomy either as an inpatient or down the line. At this point it does not seem to be true acute cholecystitis. Time Spent With Patient Time: Total time managing care of this patient today ____ minutes. Quality Stroke Does the patient have a stroke diagnosis?: No VTE Prior VTE?: No VTE Risk Level:: Medical - moderate - high VTE Device Contraindication: N/A - Device Ordered VTE Drug Contraindication: Treatment Not Indicated
[2025-01-22 19:27] VITALS: BP 156/72; PULSE 83; RESP 15; TEMP 36.2; O2SAT 99
[2025-01-22] MEDS: Amitriptyline HCl 10 MG TABLET 5 MG PO (20:01)
[2025-01-22] MEDS: Divalproex Sodium ER 500 MG TAB.ER.24H 1000 MG PO (20:01)
[2025-01-22] MEDS: rOPINIRole HCL 0.25 MG TABLET 1 MG PO (20:01)
[2025-01-22] MEDS: Sennosides/Docusate Sodium TABLET 1 TAB PO (20:02)
[2025-01-22 20:29] LABS: Glucose, Whole Blood 149 mg/dL (60-115)
[2025-01-23] VITALS: BP 130/60; PULSE 68; RESP 17; TEMP 36; O2SAT 97
[2025-01-23] MEDS: cefEPime HCl/D5W 2 GM/50 ML PIGGYBACK IV ×3 (03:39→20:25)
[2025-01-23] MEDS: Lactated Ringers 1,000 ML 100 ML IVCONT ×2 (05:27→16:32)
[2025-01-23] MEDS: Omeprazole 20 MG CAPSULE.DR PO (05:27)
[2025-01-23 06:41] VITALS: BP 127/69; PULSE 66; RESP 15; TEMP 36.1; O2SAT 96
[2025-01-23 06:58] LABS: Glucose, Whole Blood 132 mg/dL (60-115)
--- NOTE | 2025-01-23 07:39 | P.PNIM_ITS ---
Subjective Subjective Date of Service: 01/23/25 Interval History: eneterobacter bacteremia Review of Systems nausea /abd pain somewhat improving Review of Systems: Yes all other systems are reviewed and are negative Physical Exam 2 Vital Signs: Vital Signs: Last Vital Signs Temp 97 F 01/23/25 06:41 Pulse 66 01/23/25 06:41 Resp 15 01/23/25 06:41 BP 127/69 01/23/25 06:41 Pulse Ox 96 01/23/25 06:41 O2 Del Method Room Air 01/23/25 06:41 BMI result Body Mass Index 28.2 Appearance: Alert.? Oriented X3.? cvs: rrr, [id number]. res: clear to auscultation ,no rhonchii or wheezing abd: no rebound or guarding , epigastric discomfort, bs present. ext pulses present , no cyanosis. neuro: axo3 , nonfocal. Objective Data Active Medications Acyclovir (Acyclovir 200 Mg Capsule) 400 mg PO TID [facility] Last Admin: 01/22/25 20:01 Dose: 400 mg Documented By: TERESA Amitriptyline HCl (Amitriptyline Hcl 10 Mg Tablet) 5 mg PO BEDTIME [facility] Last Admin: 01/22/25 20:01 Dose: 5 mg Documented By: TERESA Amlodipine Besylate (Amlodipine Besylate 2.5 Mg Tablet) 2.5 mg PO DAILY [facility]; Protocol Last Admin: 01/22/25 08:34 Dose: 2.5 mg Documented By: JOSÉ Calcium Carbonate (Calcium Carbonate 750 Mg Tab.Chew) 750 mg PO Q4H PRN PRN Reason: Heartburn Last Admin: 01/22/25 02:23 Dose: 750 mg Documented By: MARY Dextrose (Dextrose 50 % 25 Gm/50 Ml Syringe) 25 gm IVPUSH Q15M PRN; Protocol PRN Reason: per Hypoglycemia Standing Ord. Divalproex Sodium (Divalproex Sodium Er 500 Mg Tab.Er.24h) 1,000 mg PO BEDTIME [facility] Last Admin: 01/22/25 20:01 Dose: 1,000 mg Documented By: TERESA Enoxaparin Sodium (Enoxaparin Sodium 40 Mg/0.4 Ml Syringe) 40 mg SUBCUT Q24H [facility] Last Admin: 01/22/25 16:42 Dose: 40 mg Documented By: JOSÉ Furosemide (Furosemide 40 Mg Tablet) 40 mg PO DAILY [facility]; Protocol Last Admin: 01/22/25 08:33 Dose: 40 mg Documented By: JOSÉ Glucose (Glucose Gel 15 Gm Gel..Gram.) 15 gm PO Q15M PRN; Protocol PRN Reason: per Hypoglycemia Standing Ord. Lactated Ringer's (Lr) 1,000 mls @ 100 mls/hr IVCONT .Q10H [facility] Last Admin: 01/23/25 05:27 Dose: 100 mls/hr Documented By: TERESA Cefepime HCl (Maxipime) 2 gm in 50 mls @ 100 mls/hr IV Q8H [facility] Last Infusion: 01/23/25 04:09 Dose: Infused Documented By: TERESA Insulin Human Lispro (Insulin Lispro 100 Unit/Ml 3 Ml Vial) 0 unit SUBCUT QIDACHS [facility]; Protocol Last Admin: 01/23/25 07:38 Dose: Not Given Documented By: CLINT Non-Admin Reason: No Insulin Coverage Magnesium Hydroxide (Milk Of Magnesia 30 Ml Oral.Susp) 30 ml PO DAILY PRN PRN Reason: Constipation Last Admin: 01/22/25 08:35 Dose: 30 ml Documented By: JOSÉ Melatonin (Melatonin 3 Mg Tablet) 6 mg PO BEDTIME PRN PRN Reason: Insomnia Metoprolol Succinate (Metoprolol Succinate Er 25 Mg Tab.Er.24h) 25 mg PO DAILY [facility]; Protocol Last Admin: 01/22/25 08:34 Dose: 25 mg Documented By: JOSÉ Morphine Sulfate (Morphine Sulfate 4 Mg/Ml Cartridge) 4 mg IVPUSH Q4H PRN; Protocol PRN Reason: Pain, Severe (Pain Scale 7-10) Last Admin: 01/22/25 20:16 Dose: 4 mg Documented By: TERESA Omeprazole (Omeprazole 20 Mg Capsule.Dr) 20 mg PO DAILY@0630 [facility] Last Admin: 01/23/25 05:27 Dose: 20 mg Documented By: TERESA Ondansetron HCl (Ondansetron Hcl 4 Mg/2 Ml Vial) 4 mg IVPUSH Q8H PRN PRN Reason: Nausea and Vomiting Last Admin: 01/22/25 16:52 Dose: 4 mg Documented By: JOSÉ Polyethylene Glycol (Polyethylene Glycol 3350 17 Gm Powd.Pack) 17 gm PO DAILY [facility] Last Admin: 01/22/25 08:35 Dose: 17 gm Documented By: JOSÉ Ropinirole HCl (Ropinirole Hcl 0.25 Mg Tablet) 1 mg PO BEDTIME [facility] Last Admin: 01/22/25 20:01 Dose: 1 mg Documented By: TERESA Senna/Docusate Sodium (Sennosides/Docusate Sodium Tablet) 1 tab PO Q2D@2100 [facility] Last Admin: 01/22/25 20:02 Dose: 1 tab Documented By: TERESA Sodium Chloride (0.9 % Sodium Chloride Flush 3 Ml Syringe) 3 ml IVFLUSH QSHIFT [facility] Last Admin: 01/23/25 00:11 Dose: Not Given Documented By: TERESA Non-Admin Reason: IV Running Tolterodine Tartrate (Tolterodine Tartrate La 2 Mg Cap.Er.24h) 2 mg PO DAILY [facility] Last Admin: 01/22/25 08:33 Dose: 2 mg Documented By: JOSÉ Labs 01/21/25 07:47 01/23/25 08:50 Labs: Laboratory Results - last 24 hr 01/22/25 01/22/25 01/22/25 10:57 16:10 20:25 POC Glucose 111 148 H 149 H 01/23/25 06:56 POC Glucose 132 H Microbiology Microbiology Results: Microbiology 01/19/25 13:09 Blood Culture - Final Blood - Venous Enterobacter cloacae complex 01/19/25 13:09 Blood Culture - Final Blood - Venous Enterobacter cloacae complex Assessment and Plan (1) Acute pancreatitis: Status: Acute (2) Abnormal LFTs: Status: Acute (3) Bacteremia due to Enterobacter species: Status: Acute Assessment and Plan: 65-year-old female with pertinent history of insulin-dependent diabetes mellitus with diabetic neuropathy, hypertension, mixed hyperlipidemia, mood disorder, gastroesophageal reflux disease, lower extremity edema, restless leg syndrome who presents to the emergency department for evaluation of abdominal pain. Acute interstitial pancreatitis, ? cholestasis , gram negative bacteremia elevated LFTs and alkaline phosphatase MRCP -No evidence of cholelithiasis or choledocholithiasis. Nonspecific pericholecystic fluid, as well as fluid surrounding the descending duodenum, and in the perinephric spaces. Findings could be secondary to acute pancreatitis involving the pancreatic head or duodenal ulcer disease. Acute cholecystitis appears less likely given lack of cholelithiasis or a positive sonographic Mendieta sign on recent ultrasound. HIDA: No gallbladder uptake up to 4 hours following isotope administration is consistent with acute cholecystitis.Findings suggestive of medical cholestasis. In the absence of abnormal common bile ductal dilatation on anatomical imaging, the absence of uptake on scintigraphy is most likely from medical cholestasis rather than ductal obstruction. Triglyceride level normal. plan: continue ivf , pain meds, antibiotics imaging reivewed and d/w surgery-less likely cholecystsitis. Gi follow up -elevated lft's, cholestasis ?,enterobactor cloacae-senstive to cefepime,cipro,bactrim, entropenem. ua negative repeat blood culture pending , echo if LFTs not downtrending -may need further workup. May need repeat MRI pancreas protocol in 4 weeks (no sooner to allow for interstitial edema to resolve for complete radiographic eval) if no underlying cause of pancreatitis identified Gi and surgery following Acute lactic acidosis: Trending down with ivf , no further trending unless clinicaldeterioration. Insulin-dependent diabetes mellitus with hyperglycemia: Initiating Accu-Cheks with sliding scale insulin every 6 hours while patient is NPO Hypertension: Resume home meds. Mixed hyperlipidemia: Hold statin Mood disorder: Continue home mood stabilizers Gastroesophageal reflux disease: On PPI DVT prophylaxis: Mechanical. add s/c lovenox ongoing need : Pancreatitis, enterobacter bacteremia : Need IV pain medication, fluid, antibiotics . patient and her family updated. Quality Stroke Does the patient have a stroke diagnosis?: No VTE Prior VTE?: No VTE Risk Level:: Medical - moderate - high VTE Device Contraindication: N/A - Device Ordered VTE Drug Contraindication: Treatment Not Indicated
--- NOTE | 2025-01-23 08:06 | PM.PNGS ---
Subjective Subjective Date of Service: 01/23/25 Patient reports: flatus and bowel movement Interval history: patient is doing okay, no pain at rest pain when her stomach is pressed. She feels abdominal pain when she eats. Patient on clear liquid diet. She denies nausea, vomiting. Reports bowel movement and passing gas. Endorses ambulating to and from bathroom. 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) Resp: Effort & Inspection: normal respiratory effort and able to speak in complete sentences GI: Inspection: No distended Palpation (GI): Soft to palpation, Tenderness to palpation present (GI) (diffuse tenderness to palpation), no guarding and not rigid Neuro: General: patient oriented x3 Objective Data Active Medications Acyclovir (Acyclovir 200 Mg Capsule) 400 mg PO TID [facility] Last Admin: 01/22/25 20:01 Dose: 400 mg Documented By: TERESA Amitriptyline HCl (Amitriptyline Hcl 10 Mg Tablet) 5 mg PO BEDTIME [facility] Last Admin: 01/22/25 20:01 Dose: 5 mg Documented By: TERESA Amlodipine Besylate (Amlodipine Besylate 2.5 Mg Tablet) 2.5 mg PO DAILY [facility]; Protocol Last Admin: 01/22/25 08:34 Dose: 2.5 mg Documented By: JOSÉ Calcium Carbonate (Calcium Carbonate 750 Mg Tab.Chew) 750 mg PO Q4H PRN PRN Reason: Heartburn Last Admin: 01/22/25 02:23 Dose: 750 mg Documented By: MARY Dextrose (Dextrose 50 % 25 Gm/50 Ml Syringe) 25 gm IVPUSH Q15M PRN; Protocol PRN Reason: per Hypoglycemia Standing Ord. Divalproex Sodium (Divalproex Sodium Er 500 Mg Tab.Er.24h) 1,000 mg PO BEDTIME [facility] Last Admin: 01/22/25 20:01 Dose: 1,000 mg Documented By: TERESA Enoxaparin Sodium (Enoxaparin Sodium 40 Mg/0.4 Ml Syringe) 40 mg SUBCUT Q24H [facility] Last Admin: 01/22/25 16:42 Dose: 40 mg Documented By: JOSÉ Furosemide (Furosemide 40 Mg Tablet) 40 mg PO DAILY [facility]; Protocol Last Admin: 01/22/25 08:33 Dose: 40 mg Documented By: JOSÉ Glucose (Glucose Gel 15 Gm Gel..Gram.) 15 gm PO Q15M PRN; Protocol PRN Reason: per Hypoglycemia Standing Ord. Lactated Ringer's (Lr) 1,000 mls @ 100 mls/hr IVCONT .Q10H [facility] Last Admin: 01/23/25 05:27 Dose: 100 mls/hr Documented By: TERESA Cefepime HCl (Maxipime) 2 gm in 50 mls @ 100 mls/hr IV Q8H [facility] Last Infusion: 01/23/25 04:09 Dose: Infused Documented By: TERESA Insulin Human Lispro (Insulin Lispro 100 Unit/Ml 3 Ml Vial) 0 unit SUBCUT QIDACHS [facility]; Protocol Last Admin: 01/23/25 07:38 Dose: Not Given Documented By: CLINT Non-Admin Reason: No Insulin Coverage Magnesium Hydroxide (Milk Of Magnesia 30 Ml Oral.Susp) 30 ml PO DAILY PRN PRN Reason: Constipation Last Admin: 01/22/25 08:35 Dose: 30 ml Documented By: JOSÉ Melatonin (Melatonin 3 Mg Tablet) 6 mg PO BEDTIME PRN PRN Reason: Insomnia Metoprolol Succinate (Metoprolol Succinate Er 25 Mg Tab.Er.24h) 25 mg PO DAILY [facility]; Protocol Last Admin: 01/22/25 08:34 Dose: 25 mg Documented By: JOSÉ Morphine Sulfate (Morphine Sulfate 4 Mg/Ml Cartridge) 4 mg IVPUSH Q4H PRN; Protocol PRN Reason: Pain, Severe (Pain Scale 7-10) Last Admin: 01/22/25 20:16 Dose: 4 mg Documented By: TERESA Omeprazole (Omeprazole 20 Mg Capsule.Dr) 20 mg PO DAILY@0630 [facility] Last Admin: 01/23/25 05:27 Dose: 20 mg Documented By: TERESA Ondansetron HCl (Ondansetron Hcl 4 Mg/2 Ml Vial) 4 mg IVPUSH Q8H PRN PRN Reason: Nausea and Vomiting Last Admin: 01/22/25 16:52 Dose: 4 mg Documented By: JOSÉ Polyethylene Glycol (Polyethylene Glycol 3350 17 Gm Powd.Pack) 17 gm PO DAILY [facility] Last Admin: 01/22/25 08:35 Dose: 17 gm Documented By: JOSÉ Ropinirole HCl (Ropinirole Hcl 0.25 Mg Tablet) 1 mg PO BEDTIME [facility] Last Admin: 01/22/25 20:01 Dose: 1 mg Documented By: TERESA Senna/Docusate Sodium (Sennosides/Docusate Sodium Tablet) 1 tab PO Q2D@2100 [facility] Last Admin: 01/22/25 20:02 Dose: 1 tab Documented By: TERESA Sodium Chloride (0.9 % Sodium Chloride Flush 3 Ml Syringe) 3 ml IVFLUSH QSHIFT [facility] Last Admin: 01/23/25 00:11 Dose: Not Given Documented By: TERESA Non-Admin Reason: IV Running Tolterodine Tartrate (Tolterodine Tartrate La 2 Mg Cap.Er.24h) 2 mg PO DAILY [facility] Last Admin: 01/22/25 08:33 Dose: 2 mg Documented By: JOSÉ Labs 01/21/25 07:47 01/23/25 08:50 Labs: Laboratory Results - last 24 hr 01/22/25 01/22/25 01/22/25 10:57 16:10 20:25 POC Glucose 111 148 H 149 H 01/23/25 06:56 POC Glucose 132 H Microbiology Microbiology Results: Microbiology 01/19/25 13:09 Blood Culture - Final Blood - Venous Enterobacter cloacae complex 01/19/25 13:09 Blood Culture - Final Blood - Venous Enterobacter cloacae complex Procedures Date of Service Date of Service: 01/23/25 Progress Note: A&P Assessment and plan (1) Acute pancreatitis: Status: Acute Plan 65 year old female admitted for pancreatitis. She continues to improve. comfortable at rest, experiencing diffuse pain to palpation and pain after clear liquids. Todays labs, bilirubin, liver enzymes improving. Previous pancreatic enzymes show improvement. MRCP not suggestive of acute cholecystitis. HIDA scan suggestive of cholestasis. No current plan for surgical intervention, continue with conservative management. 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 Quality Stroke Does the patient have a stroke diagnosis?: No VTE Prior VTE?: No VTE Risk Level:: Medical - moderate - high VTE Device Contraindication: N/A - Device Ordered VTE Drug Contraindication: Treatment Not Indicated
[2025-01-23 09:00] VITALS: BP 150/72; PULSE 68; RESP 16; TEMP 36.6; O2SAT 97
[2025-01-23] MEDS: Morphine Sulfate 4 MG/ML CARTRIDGE IVPUSH ×3 (09:11→20:41)
[2025-01-23] MEDS: ondansetron HCL 4 MG/2 ML VIAL IVPUSH ×2 (09:11→20:41)
[2025-01-23 09:20] LABS: Alanine Aminotransferase 128 U/L (0-31); Albumin Level 2.8 g/dL (3.5-5.0); Alkaline Phosphatase 411 U/L (39-117); Anion Gap 10 (12-20); Aspartate Amino Transferase 53 U/L (5-31); Bilirubin Total 1.3 mg/dL (0.0-1.0); Blood Urea Nitrogen 7 mg/dL (9-16); Calcium 8.4 mg/dL (8.4-10.2); Carbon Dioxide 27 mmol/L (22-29); Chloride 105 mmol/L (96-108); Creatinine Clr Calc Pharmacy 81.6; Estimated Glomerular Filt Rate > 60; Glucose Random 224 mg/dL (60-115); Potassium 3.8 mmol/L (3.3-5.1); Sodium 138 mmol/L (135-145); Total Protein 5.5 g/dL (6.5-8.0)
[2025-01-23] MEDS: Metoprolol Succinate ER 25 MG TAB.ER.24H PO (09:45)
[2025-01-23] MEDS: amLODIPine Besylate 2.5 MG TABLET PO (09:45)
[2025-01-23] MEDS: Furosemide 40 MG TABLET PO (09:45)
[2025-01-23] MEDS: Tolterodine Tartrate LA 2 MG CAP.ER.24H PO (09:45)
[2025-01-23] MEDS: polyethylene glycoL 3350 17 GM POWD.PACK PO (09:45)
[2025-01-23] MEDS: Acyclovir 200 MG CAPSULE 400 MG PO ×3 (09:45→20:26)
--- NOTE | 2025-01-23 11:06 | P.PNGI_ITS ---
Subjective Subjective Date of Service: 01/23/25 Interval History: E cloaca bacteremia noted. Likely bacterial translocation 2/2 compromised gut integrity. 5/4 cultures pending. Pt seen at bedside with health and safety representative. Reports lower abd cramping and nausea but otherwise tolerating diet. LFts reviewed - transaminases trending down. Critical Care Time (minutes): 0 Physical Exam 2 Vital Signs: Vital Signs: Last Vital Signs Temp 97.9 F 01/23/25 09:00 Pulse 68 01/23/25 09:00 Resp 16 01/23/25 09:00 BP 150/72 H 01/23/25 09:00 Pulse Ox 97 01/23/25 09:00 O2 Del Method Room Air 01/23/25 09:00 BMI result Body Mass Index 28.2 No apparent distress Nonicteric Abdomen soft, nondistended, mild tenderness in RLQ and LLQ Objective Data Labs 01/21/25 07:47 01/23/25 08:50 Labs: Laboratory Results - last 24 hr 01/22/25 01/22/25 01/23/25 16:10 20:25 06:56 Sodium Potassium Chloride Carbon Dioxide Anion Gap BUN Creatinine Estim Creat Clear Calc Estimated GFR POC Glucose 148 H 149 H 132 H Random Glucose Calcium Total Bilirubin AST ALT Alkaline Phosphatase Total Protein Albumin 01/23/25 08:50 Sodium 138 Potassium 3.8 Chloride 105 Carbon Dioxide 27 Anion Gap 10 L BUN 7 L Creatinine 0.72 Estim Creat Clear Calc 81.6 Estimated GFR > 60 POC Glucose Random Glucose 224 H Calcium 8.4 Total Bilirubin 1.3 H AST 53 H ALT 128 H Alkaline Phosphatase 411 H Total Protein 5.5 L Albumin 2.8 L Microbiology Microbiology Results: Microbiology 01/19/25 13:09 Blood - Venous Blood Culture - Final Enterobacter cloacae complex 01/19/25 13:09 Blood - Venous Blood Culture - Final Enterobacter cloacae complex Procedures Date of Service Date of Service: 01/23/25 Progress Note: A&P Assessment and plan (1) Bacteremia due to Enterobacter species: Status: Acute (2) Acute pancreatitis: Status: Acute (3) Abnormal LFTs: Status: Acute Plan 1. ECC bacteremia: Likely bacterial translocation 2/2 compromised gut integrity. 5/4 cultures pending. Appreciate ID input. 2. elevated LFTs: likely 2/2 cholestasis of sepsis. No CBD obstruction noted on US or MRCP. Typically ALP and bili lag behind transaminses so anticipate ALP to be lower tmrw, however if continues to uptrend would recommend MRI abd with and without contrast for pancreas and liver protocol. Time Spent With Patient Time: Total time managing care of this patient today ____ minutes. Quality Stroke Does the patient have a stroke diagnosis?: No VTE Prior VTE?: No VTE Risk Level:: Medical - moderate - high VTE Device Contraindication: N/A - Device Ordered VTE Drug Contraindication: Treatment Not Indicated
[2025-01-23 11:27] LABS: Glucose, Whole Blood 182 mg/dL (60-115)
--- NOTE | 2025-01-23 11:48 | MHC.CLN ---
NUTRITION DIET=CLEAR LIQUIDS. ADDING GELATEIN BID TO IMPROVE NUTRITIONAL INTAKE. SUPPLEMENT PROVIDES 320 KCALS, 40 G PROTEIN. ANTICIPATE DIET ADVANCEMENT 5/6 PER PROVIDER. FOLLOW FOR DIET ADVANCEMENT.
[2025-01-23] MEDS: Insulin Lispro 100 UNIT/ML 3 ML VIAL SUBCUT ×3 (12:11→20:26)
--- NOTE | 2025-01-23 12:31 | MHC.CM.PN ---
PER MD ROUNDS PATIENT NOT MEDICALLY CLEARED FOR DC. CM WILL CONTINUE TO FOLLOW.
--- NOTE | 2025-01-23 13:33 | W.PM.IDCN ---
History of Present Illness Data of Consult Service Date: 01/23/25 Requesting physician: Johny Franco Primary Care Provider: Evelia Donald MD HPI Reason for consult: enterobacter cloacae bacteremia She presents with nausea ,vomiting and fever. She also has diffuse abdominal discomfort. She has negative Hida scan. She has elevated lipase. Blood culture enterobacter cloacae complex. Review of Systems Review of Systems: Yes all other systems are reviewed and are negative Constitutional: Constitutional: Reports frequent falls Neurologic: Reports frequent falls PMFSH Past Medical History Medical History Osteoporosis Hypertension History of blood clot in brain Hypercholesteremia HSV-2 (herpes simplex virus 2) infection Arthritis Rheumatic fever Schizophrenia GERD (gastroesophageal reflux disease) Depression HTN (hypertension) Hyperlipemia Diabetes Family History Family History Sister Age: 63 Osteoarthritis Mother Cancer of lymphatic and hematopoietic tissue, Onset Age: 83 COVID-19 Father FH: heart attack Brother FH: heart attack Other Diabetes HTN (hypertension) Mental health disorder Family history: reviewed and not pertinent Surgical History Surgical History Hx of colonoscopy History of tubal ligation History of cystostomy History of 2 sections Social History Social History Household Members: None Household Members Other:: sister Housing: Apartment Do you presently have visiting nurse or other home services: No Alcohol intake: never Patient Tobacco Use Status: Never used Tobacco e-Cigarette/Vaping Use: Never Used Second Hand Smoke Exposure: No Advance Directives Date on File: 12/05/21 service: No Current occupational status: disabled Sexual orientation: Straight/Heterosexual Gender identity: Female Cognitive needs: Yes (walker) Hearing needs: No Vision needs: Yes (glasses) Meds Allergies Allergy/AdvReac Type Severity Reaction Status Date / Time Penicillins Allergy Intermediate rash/swelli Verified 01/19/25 10:40 ng shellfish derived Allergy Intermediate Swelling, Verified 01/19/25 10:40 Hives Active Medications: Current Medications Acyclovir (Acyclovir 200 Mg Capsule) 400 mg PO TID [facility] Last Admin: 01/23/25 09:45 Dose: 400 mg Amitriptyline HCl (Amitriptyline Hcl 10 Mg Tablet) 5 mg PO BEDTIME [facility] Last Admin: 01/22/25 20:01 Dose: 5 mg Amlodipine Besylate (Amlodipine Besylate 2.5 Mg Tablet) 2.5 mg PO DAILY [facility]; Protocol Last Admin: 01/23/25 09:45 Dose: 2.5 mg Calcium Carbonate (Calcium Carbonate 750 Mg Tab.Chew) 750 mg PO Q4H PRN PRN Reason: Heartburn Last Admin: 01/22/25 02:23 Dose: 750 mg Dextrose (Dextrose 50 % 25 Gm/50 Ml Syringe) 25 gm IVPUSH Q15M PRN; Protocol PRN Reason: per Hypoglycemia Standing Ord. Divalproex Sodium (Divalproex Sodium Er 500 Mg Tab.Er.24h) 1,000 mg PO BEDTIME [facility] Last Admin: 01/22/25 20:01 Dose: 1,000 mg Enoxaparin Sodium (Enoxaparin Sodium 40 Mg/0.4 Ml Syringe) 40 mg SUBCUT Q24H [facility] Last Admin: 01/22/25 16:42 Dose: 40 mg Furosemide (Furosemide 40 Mg Tablet) 40 mg PO DAILY [facility]; Protocol Last Admin: 01/23/25 09:45 Dose: 40 mg Glucose (Glucose Gel 15 Gm Gel..Gram.) 15 gm PO Q15M PRN; Protocol PRN Reason: per Hypoglycemia Standing Ord. Lactated Ringer's (Lr) 1,000 mls @ 100 mls/hr IVCONT .Q10H [facility] Last Admin: 01/23/25 05:27 Dose: 100 mls/hr Cefepime HCl (Maxipime) 2 gm in 50 mls @ 100 mls/hr IV Q8H [facility] Last Infusion: 01/23/25 13:01 Dose: Infused Insulin Human Lispro (Insulin Lispro 100 Unit/Ml 3 Ml Vial) 0 unit SUBCUT QIDACHS [facility]; Protocol Last Admin: 01/23/25 12:11 Dose: 2 unit Magnesium Hydroxide (Milk Of Magnesia 30 Ml Oral.Susp) 30 ml PO DAILY PRN PRN Reason: Constipation Last Admin: 01/22/25 08:35 Dose: 30 ml Melatonin (Melatonin 3 Mg Tablet) 6 mg PO BEDTIME PRN PRN Reason: Insomnia Metoprolol Succinate (Metoprolol Succinate Er 25 Mg Tab.Er.24h) 25 mg PO DAILY [facility]; Protocol Last Admin: 01/23/25 09:45 Dose: 25 mg Morphine Sulfate (Morphine Sulfate 4 Mg/Ml Cartridge) 4 mg IVPUSH Q4H PRN; Protocol PRN Reason: Pain, Severe (Pain Scale 7-10) Last Admin: 01/23/25 09:11 Dose: 4 mg Omeprazole (Omeprazole 20 Mg Capsule.Dr) 20 mg PO DAILY@0630 [facility] Last Admin: 01/23/25 05:27 Dose: 20 mg Ondansetron HCl (Ondansetron Hcl 4 Mg/2 Ml Vial) 4 mg IVPUSH Q8H PRN PRN Reason: Nausea and Vomiting Last Admin: 01/23/25 09:11 Dose: 4 mg Polyethylene Glycol (Polyethylene Glycol 3350 17 Gm Powd.Pack) 17 gm PO DAILY [facility] Last Admin: 01/23/25 09:45 Dose: 17 gm Ropinirole HCl (Ropinirole Hcl 0.25 Mg Tablet) 1 mg PO BEDTIME [facility] Last Admin: 01/22/25 20:01 Dose: 1 mg Senna/Docusate Sodium (Sennosides/Docusate Sodium Tablet) 1 tab PO Q2D@2100 [facility] Last Admin: 01/22/25 20:02 Dose: 1 tab Sodium Chloride (0.9 % Sodium Chloride Flush 3 Ml Syringe) 3 ml IVFLUSH QSHIFT [facility] Last Admin: 01/23/25 09:05 Dose: Not Given Tolterodine Tartrate (Tolterodine Tartrate La 2 Mg Cap.Er.24h) 2 mg PO DAILY [facility] Last Admin: 01/23/25 09:45 Dose: 2 mg Home Medications ?Medication ?Instructions ?Recorded ?Confirmed ?Last Taken ?Type amitriptyline 10 mg tablet 5 mg PO BEDTIME 01/19/25 01/19/25 01/18/25 History amlodipine 5 mg tablet 2.5 mg PO DAILY 01/19/25 01/19/25 01/19/25 History dulaglutide 1.5 mg/0.5 mL 1.5 mg subcut FR 01/19/25 01/19/25 01/13/25 History subcutaneous pen injector (Trulicity) polyethylene glycol 3350 17 17 g PO DAILY Constipation 01/19/25 01/19/25 Unknown History gram/dose oral powder (Miralax) ropinirole 0.25 mg tablet 1 mg PO BEDTIME 01/19/25 01/19/25 01/19/25 History sennosides 8.6 mg-docusate sodium 1 tab PO Q2D@2100 01/19/25 01/19/25 Unknown History 50 mg tablet (Senna with Docusate Sodium) Physical Exam Vital Signs: Vital Signs: Last Vital Signs Temp 97.9 F 01/23/25 09:00 Pulse 68 01/23/25 09:00 Resp 16 01/23/25 09:00 BP 150/72 H 01/23/25 09:00 Pulse Ox 97 01/23/25 09:00 O2 Del Method Room Air 01/23/25 09:00 BMI result Body Mass Index 28.2 Const: General: cooperative HEENT: Head: Yes normal to inspection Face and sinus: Yes normal facial exam Mouth: Normal oral and palatal mucosa present Teeth and gingiva: dentition normal Eyes: General: appearance normal, both eyes and all related structures Pupils: Equal, round and reactive pupils present Resp: Effort & Inspection: normal respiratory effort Cardio: Rate: regular rate Rhythm: regular rhythm GI: Other: mild abdominal discomfort Palpation (GI): Soft to palpation and nontender : General: Yes no CVA tenderness Back/Spine/Pelvis: Back: no CVA tenderness Skin: General skin exam: no rashes or lesions noted Neuro: General: moves all extremities Cranial nerves: Yes Equal, round and reactive pupils present Extrem: General: Yes normal to inspection Psych: Appearance: grossly normal Results Labs 01/21/25 07:47 01/23/25 08:50 Labs: BMP 01/23/25 08:50 Sodium 138 Potassium 3.8 Chloride 105 Carbon Dioxide 27 BUN 7 L Creatinine 0.72 Calcium 8.4 Liver Function 01/23/25 Range/Units 08:50 Total Bilirubin 1.3 H (0.0-1.0) mg/dL AST 53 H (5-31) U/L ALT 128 H (0-31) U/L Alkaline Phosphatase 411 H (39-117) U/L Albumin 2.8 L (3.5-5.0) g/dL Microbiology Microbiology Results: Microbiology 01/19/25 13:09 Blood - Venous Blood Culture - Final Enterobacter cloacae complex 01/19/25 13:09 Blood - Venous Blood Culture - Final Enterobacter cloacae complex Assessment and Plan (1) Bacteremia due to Enterobacter species: Status: Acute (2) Acute pancreatitis: Status: Acute (3) Abnormal LFTs: Status: Acute Plan She has enterobacter bacteremia. This is sensitive to Bactrim and quinolones This is probably due to biliary duct stasis/now improving Continue Cefepime for now. Would give po Bactrim DS bid for 10 d total antibiotics.
--- NOTE | 2025-01-23 13:50 | PM.EVENT ---
Event Note Date of Service: 01/23/25 Event Note: could also give quinolone but has concern over any cardiac risk Time Spent With Patient Time: Total time managing care of this patient today ____ minutes.
[2025-01-23 15:20] VITALS: BP 139/72; PULSE 86; RESP 18; TEMP 36.1; O2SAT 97
[2025-01-23] MEDS: Enoxaparin Sodium 40 MG/0.4 ML SYRINGE SUBCUT (15:49)
[2025-01-23 16:12] LABS: Glucose, Whole Blood 165 mg/dL (60-115)
[2025-01-23 20:18] LABS: Glucose, Whole Blood 223 mg/dL (60-115)
[2025-01-23] MEDS: rOPINIRole HCL 0.25 MG TABLET 1 MG PO (20:25)
[2025-01-23] MEDS: Amitriptyline HCl 10 MG TABLET 5 MG PO (20:26)
[2025-01-23] MEDS: Divalproex Sodium ER 500 MG TAB.ER.24H 1000 MG PO (20:26)
[2025-01-23 23:55] VITALS: BP 152/69; PULSE 66; RESP 17; TEMP 36.3; O2SAT 99
[2025-01-24] MEDS: cefEPime HCl/D5W 2 GM/50 ML PIGGYBACK IV ×3 (04:09→20:11)
[2025-01-24] MEDS: Lactated Ringers 1,000 ML 100 ML IVCONT ×2 (04:10→14:20)
[2025-01-24] MEDS: Omeprazole 20 MG CAPSULE.DR PO (05:16)
[2025-01-24 06:51] LABS: Alanine Aminotransferase 86 U/L (0-31); Albumin Level 2.5 g/dL (3.5-5.0); Alkaline Phosphatase 349 U/L (39-117); Anion Gap 9 (12-20); Aspartate Amino Transferase 30 U/L (5-31); Bilirubin Total 0.8 mg/dL (0.0-1.0); Blood Urea Nitrogen 10 mg/dL (9-16); Calcium 8.2 mg/dL (8.4-10.2); Carbon Dioxide 31 mmol/L (22-29); Chloride 103 mmol/L (96-108); Creatinine Clr Calc Pharmacy 91.8; Estimated Glomerular Filt Rate > 60; Glucose Random 150 mg/dL (60-115); Lipase 103 U/L (8-78); Sodium 139 mmol/L (135-145); Total Protein 5.1 g/dL (6.5-8.0)
[2025-01-24 07:00] VITALS: BP 158/73; PULSE 71; RESP 14; TEMP 37.1; O2SAT 97
--- NOTE | 2025-01-24 07:00 | CA_ITS ---
Transthoracic Echocardiogram Patient (Last, First, Middle): Bessie Bhatia Rosa Gender: Female Date of : 1960 Age: 65 Procedure Date: 01/24/2025 Procedure Type: Transthoracic Echocardiogram Location: S3E Height: 167.64 cm Weight: 78.93 kg BSA: 1.89 m2 Heart Rate: 66 bpm BP: 127 / 69 mmHg Nurse College: [employer] Referring MD: Johny Franco MD Symptoms: Enterococcus bacteremia Study Quality: Adequate w contrast ECG Rhythm: Sinus Conclusions: - The left ventricular systolic function is low normal. The visually estimated ejection fraction is between 50-55%. - No obvious valvular pathology seen on this study. Findings Procedure Information Contrast agent, definity, is being given per protocol without apparent complications. Left Ventricle Normal left ventricular cavity size. There is normal left ventricular wall thickness. The left ventricular systolic function is low normal. The visually estimated ejection fraction is between 50-55%. There is mild global hypokinesis. Diastolic function is normal for age. Right Ventricle Normal right ventricular cavity size and systolic function. Atria Both atria are normal in size. Aortic Valve There is a normal trileaflet aortic valve. There is no aortic valve stenosis. There is no aortic valve regurgitation. Mitral Valve The mitral valve appears normal. There is no mitral valve regurgitation. There is no mitral valve stenosis. Pulmonic Valve The pulmonic valve is likely normal. Tricuspid Valve There is trace tricuspid valve regurgitation. There is no evidence of pulmonary hypertension. Great Vessels The asc aorta and aortic arch are normal in size. Venous The inferior vena cava is normal in size and collapses greater than 50% with inspiration. Pericardium/Pleural There is no evidence of pericardial effusion. Prior Study Comparison No significant change compared to prior study dated: 10/31/2024. Recommendations, Care & Conclusions No obvious valvular pathology seen on this study. Measurements 2D Linear Measurements IVSd: 0.86 0.6-0.9/0.6-1.0 cm LVIDd: 5.03 3.9-5.3/4.2-5.9 cm LVIDd Index: 2.66 2.4-3.2/2.2-3.1 cm/m2 LVIDs: 3.17 2.0-3.6 cm LVPWd: 0.83 0.7-1.1 cm LA Diam: 3.80 2.7-3.8/3.0-4.0 cm LAIDs Index: 2.01 1.5-2.3 cm/m2 LV Mass: 183.67 67-162/88-224 g LV Mass Index: 97.18 43-95/49-115 g/m2 LVOT Diam: 1.90 3.0+(-)1.3 cm 2D Systolic Function EF 4C: 66.50 >55% EF 2C: 54.30 >55% EF BiP: 61.10 >55% Mitral Valve MV Pk E: 0.78 MV PK A: 0.85 MV Decel Time: 293.00 E/A: 0.90 E'Lateral: 8.70 E'Medial: 5.00 E/E' Med: 15.70 E/E' Lat: 9.00 PHT: 86.00 MVA PHT: 2.56 Decel [place]: 2.68 Aortic Valve AoV Pk Carter: 1.42 AoV Pk Grad: 8.00 SORAIDA: 2.37 LVOT LVOT Pk Carter: 1.18 LVOT Mn Carter: 0.79 LVOT VTI: 0.24 LVOT Pk Grad: 6.00 LVOT Mn Grad: 3.00 LVOT Diam: 1.90 LVOT Area: 2.84 Diastolic Function MV Pk E: 0.78 MV Pk A: 0.85 E/A: 0.90 E'Medial: 5.00 E/E' Med: 15.70 E' Laterial: 8.70 E/E' Lat: 9.00 Right Ventricle TAPSE (mm): 25.30 TVS' Carter: 12.50 Tricuspid Valve TR Pk Carter: 2.33 TR Pk Grad: 22.00 RA Press: 8.00 RVSP: 30.00 Great Vessels Aorta Sinus of Valsalva: 2.50 2.0-3.5 cm Ao Asc: 3.30 2.1-3.4 cm Ao Arch: 2.80 Pulmonary Valve PV Pk Carter: 0.91 Peak PV Grad: 3.00 Updated in Other Vendor System with Status of Final Willian Alfonso MD electronically signed on 01/24/2025 11:31:13 AM with status of Final
[2025-01-24 07:07] LABS: Glucose, Whole Blood 139 mg/dL (60-115)
[2025-01-24] MEDS: Morphine Sulfate 4 MG/ML CARTRIDGE IVPUSH ×3 (07:48→20:18)
[2025-01-24] MEDS: Tolterodine Tartrate LA 2 MG CAP.ER.24H PO (07:50)
[2025-01-24] MEDS: Metoprolol Succinate ER 25 MG TAB.ER.24H PO (07:50)
[2025-01-24] MEDS: amLODIPine Besylate 2.5 MG TABLET PO (07:50)
[2025-01-24] MEDS: Furosemide 40 MG TABLET PO (07:51)
[2025-01-24] MEDS: Acyclovir 200 MG CAPSULE 400 MG PO ×3 (07:51→20:10)
--- NOTE | 2025-01-24 08:02 | P.PNGS_ITS ---
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 Patient states she feels improvement from when she came in but continues to experience 8/10 abdominal pain. Locating her pain to RUQ and lower abdomen. Patient is on clear liquid diet, reports increased pain and some nausea when given diet. She endorses ambulation to and from the bathroom Physical Exam 2 Vital Signs: Vital Signs: Last Vital Signs Temp 98.8 F 01/24/25 07:00 Pulse 71 01/24/25 07:00 Resp 14 01/24/25 07:00 BP 158/73 H 01/24/25 07:00 Pulse Ox 97 01/24/25 07:00 O2 Del Method Room Air 01/24/25 07:00 BMI result Body Mass Index 28.2 Const: General: no acute distress Orientation/consciousness: patient oriented x3 Resp: Effort & Inspection: normal respiratory effort GI: Palpation (GI): Soft to palpation, not firm, Tenderness to palpation present (GI) (diffuse tenderness, mostly RUQ, epigastric and LLQ), no guarding and not rigid Percussion: Yes normal to percussion Neuro: General: patient oriented x3 Objective Data Active Medications Acyclovir (Acyclovir 200 Mg Capsule) 400 mg PO TID [facility] Last Admin: 01/24/25 07:51 Dose: 400 mg Documented By: KOKO Amitriptyline HCl (Amitriptyline Hcl 10 Mg Tablet) 5 mg PO BEDTIME [facility] Last Admin: 01/23/25 20:26 Dose: 5 mg Documented By: FILIBERTO Amlodipine Besylate (Amlodipine Besylate 2.5 Mg Tablet) 2.5 mg PO DAILY [facility]; Protocol Last Admin: 01/24/25 07:50 Dose: 2.5 mg Documented By: KOKO Calcium Carbonate (Calcium Carbonate 750 Mg Tab.Chew) 750 mg PO Q4H PRN PRN Reason: Heartburn Last Admin: 01/22/25 02:23 Dose: 750 mg Documented By: MARY Dextrose (Dextrose 50 % 25 Gm/50 Ml Syringe) 25 gm IVPUSH Q15M PRN; Protocol PRN Reason: per Hypoglycemia Standing Ord. Divalproex Sodium (Divalproex Sodium Er 500 Mg Tab.Er.24h) 1,000 mg PO BEDTIME [facility] Last Admin: 01/23/25 20:26 Dose: 1,000 mg Documented By: FILIBERTO Enoxaparin Sodium (Enoxaparin Sodium 40 Mg/0.4 Ml Syringe) 40 mg SUBCUT Q24H [facility] Last Admin: 01/23/25 15:49 Dose: 40 mg Documented By: CLINT Furosemide (Furosemide 40 Mg Tablet) 40 mg PO DAILY [facility]; Protocol Last Admin: 01/24/25 07:51 Dose: 40 mg Documented By: KOKO Glucose (Glucose Gel 15 Gm Gel..Gram.) 15 gm PO Q15M PRN; Protocol PRN Reason: per Hypoglycemia Standing Ord. Lactated Ringer's (Lr) 1,000 mls @ 100 mls/hr IVCONT .Q10H [facility] Last Infusion: 01/24/25 04:43 Dose: 100 mls/hr Documented By: FILIBERTO Cefepime HCl (Maxipime) 2 gm in 50 mls @ 100 mls/hr IV Q8H [facility] Last Infusion: 01/24/25 04:43 Dose: Infused Documented By: FILIBERTO Insulin Human Lispro (Insulin Lispro 100 Unit/Ml 3 Ml Vial) 0 unit SUBCUT QIDACHS [facility]; Protocol Last Admin: 01/24/25 07:09 Dose: Not Given Documented By: KOKO Non-Admin Reason: No Insulin Coverage Magnesium Hydroxide (Milk Of Magnesia 30 Ml Oral.Susp) 30 ml PO DAILY PRN PRN Reason: Constipation Last Admin: 01/22/25 08:35 Dose: 30 ml Documented By: JOSÉ Melatonin (Melatonin 3 Mg Tablet) 6 mg PO BEDTIME PRN PRN Reason: Insomnia Metoprolol Succinate (Metoprolol Succinate Er 25 Mg Tab.Er.24h) 25 mg PO DAILY [facility]; Protocol Last Admin: 01/24/25 07:50 Dose: 25 mg Documented By: KOKO Morphine Sulfate (Morphine Sulfate 4 Mg/Ml Cartridge) 4 mg IVPUSH Q4H PRN; Protocol PRN Reason: Pain, Severe (Pain Scale 7-10) Last Admin: 01/24/25 07:48 Dose: 4 mg Documented By: KOKO Omeprazole (Omeprazole 20 Mg Capsule.Dr) 20 mg PO DAILY@0630 [facility] Last Admin: 01/24/25 05:16 Dose: 20 mg Documented By: FILIBERTO Ondansetron HCl (Ondansetron Hcl 4 Mg/2 Ml Vial) 4 mg IVPUSH Q8H PRN PRN Reason: Nausea and Vomiting Last Admin: 01/23/25 20:41 Dose: 4 mg Documented By: FILIBERTO Polyethylene Glycol (Polyethylene Glycol 3350 17 Gm Powd.Pack) 17 gm PO DAILY [facility] Last Admin: 01/24/25 07:55 Dose: Not Given Documented By: KOKO Non-Admin Reason: loose stools Ropinirole HCl (Ropinirole Hcl 0.25 Mg Tablet) 1 mg PO BEDTIME [facility] Last Admin: 01/23/25 20:25 Dose: 1 mg Documented By: FILIBERTO Senna/Docusate Sodium (Sennosides/Docusate Sodium Tablet) 1 tab PO Q2D@2100 [facility] Last Admin: 01/22/25 20:02 Dose: 1 tab Documented By: TERESA Sodium Chloride (0.9 % Sodium Chloride Flush 3 Ml Syringe) 3 ml IVFLUSH QSHIFT [facility] Last Admin: 01/24/25 06:42 Dose: Not Given Documented By: KOKO Non-Admin Reason: IV Running Tolterodine Tartrate (Tolterodine Tartrate La 2 Mg Cap.Er.24h) 2 mg PO DAILY [facility] Last Admin: 01/24/25 07:50 Dose: 2 mg Documented By: KOKO Labs 01/21/25 07:47 01/24/25 05:28 Labs: Laboratory Results - last 24 hr 01/23/25 01/23/25 01/23/25 08:50 11:24 16:08 Hold Purple Top Anion Gap 10 L Estim Creat Clear Calc 81.6 Estimated GFR > 60 POC Glucose 182 H 165 H Random Glucose 224 H Calcium 8.4 Total Bilirubin 1.3 H AST 53 H ALT 128 H Alkaline Phosphatase 411 H Total Protein 5.5 L Albumin 2.8 L Lipase 01/23/25 01/24/25 01/24/25 20:14 05:28 07:03 Hold Purple Top SEE NOTE Anion Gap 9 L Estim Creat Clear Calc 91.8 Estimated GFR > 60 POC Glucose 223 H 139 H Random Glucose 150 H Calcium 8.2 L Total Bilirubin 0.8 AST 30 ALT 86 H Alkaline Phosphatase 349 H Total Protein 5.1 L Albumin 2.5 L Lipase 103 H Microbiology Microbiology Results: Microbiology 01/22/25 13:06 Blood Culture - Preliminary Blood - Venous No growth after 24 hours. 01/22/25 12:44 Blood Culture - Preliminary Blood - Venous No growth after 24 hours. Procedures Date of Service Date of Service: 01/24/25 Progress Note: A&P Assessment and plan (1) Acute pancreatitis: Status: Acute Plan 65 year old female admitted for pancreatitis, elevated LFTs. She is experiencing generalize abdominal pain, focused in the RUQ/epigastric area. Experiencing increased pain and mild nausea with clear liquid diet. She is ambulating. Liver and pancreatic enzymes continue to improve. ID consult appreciated. Patient found to have enterobacter bacteremia, likely secondary to biliary stasis. Recommended continuing cefepime and possible change to bactrim. US and MRCP showing no stones in gallbladder or CBD. Will continue with non operative conservative management at this point. Repeat Pancreatic CT series ordered per Dr. James. Continue with antibiotics, defer to ID for changes Continue antiemetics as needed Continue clear liquid diet Recommend ambulation Time Spent With Patient Time: Total time managing care of this patient today ____ minutes. Quality Stroke Does the patient have a stroke diagnosis?: No VTE Prior VTE?: No VTE Risk Level:: Medical - moderate - high VTE Device Contraindication: N/A - Device Ordered VTE Drug Contraindication: Treatment Not Indicated
[2025-01-24 11:05] LABS: Glucose, Whole Blood 293 mg/dL (60-115)
[2025-01-24] MEDS: Insulin Lispro 100 UNIT/ML 3 ML VIAL SUBCUT ×2 (11:41→20:14)
--- NOTE | 2025-01-24 13:32 | P.PNIM_ITS ---
Subjective Subjective Date of Service: 01/24/25 Interval History: abd ,elevated lft Review of Systems still feels nauseated /abd pain-which is imrpoving slowly but unable to tolerate diet yet. no fevers or chills Physical Exam 2 Vital Signs: Vital Signs: Last Vital Signs Temp 98.8 F 01/24/25 07:00 Pulse 71 01/24/25 07:00 Resp 14 01/24/25 07:00 BP 158/73 H 01/24/25 07:00 Pulse Ox 97 01/24/25 07:00 O2 Del Method Room Air 01/24/25 07:00 BMI result Body Mass Index 28.2 Appearance: Alert.? Oriented X3.? cvs: rrr, [id number]. res: clear to auscultation ,no rhonchii or wheezing abd: no rebound or guarding , epigastric discomfort, bs present. ext pulses present , no cyanosis. neuro: axo3 , nonfocal. Objective Data Active Medications Acyclovir (Acyclovir 200 Mg Capsule) 400 mg PO TID [facility] Last Admin: 01/24/25 07:51 Dose: 400 mg Documented By: KOKO Amitriptyline HCl (Amitriptyline Hcl 10 Mg Tablet) 5 mg PO BEDTIME [facility] Last Admin: 01/23/25 20:26 Dose: 5 mg Documented By: FILIBERTO Amlodipine Besylate (Amlodipine Besylate 2.5 Mg Tablet) 2.5 mg PO DAILY [facility]; Protocol Last Admin: 01/24/25 07:50 Dose: 2.5 mg Documented By: KOKO Calcium Carbonate (Calcium Carbonate 750 Mg Tab.Chew) 750 mg PO Q4H PRN PRN Reason: Heartburn Last Admin: 01/22/25 02:23 Dose: 750 mg Documented By: MARY Dextrose (Dextrose 50 % 25 Gm/50 Ml Syringe) 25 gm IVPUSH Q15M PRN; Protocol PRN Reason: per Hypoglycemia Standing Ord. Divalproex Sodium (Divalproex Sodium Er 500 Mg Tab.Er.24h) 1,000 mg PO BEDTIME [facility] Last Admin: 01/23/25 20:26 Dose: 1,000 mg Documented By: FILIBERTO Enoxaparin Sodium (Enoxaparin Sodium 40 Mg/0.4 Ml Syringe) 40 mg SUBCUT Q24H [facility] Last Admin: 01/23/25 15:49 Dose: 40 mg Documented By: CLINT Furosemide (Furosemide 40 Mg Tablet) 40 mg PO DAILY [facility]; Protocol Last Admin: 01/24/25 07:51 Dose: 40 mg Documented By: KOKO Glucose (Glucose Gel 15 Gm Gel..Gram.) 15 gm PO Q15M PRN; Protocol PRN Reason: per Hypoglycemia Standing Ord. Cefepime HCl (Maxipime) 2 gm in 50 mls @ 100 mls/hr IV Q8H [facility] Last Infusion: 01/24/25 12:17 Dose: Infused Documented By: KOKO Insulin Human Lispro (Insulin Lispro 100 Unit/Ml 3 Ml Vial) 0 unit SUBCUT QIDACHS [facility]; Protocol Last Admin: 01/24/25 11:41 Dose: 6 unit Documented By: KOKO Magnesium Hydroxide (Milk Of Magnesia 30 Ml Oral.Susp) 30 ml PO DAILY PRN PRN Reason: Constipation Last Admin: 01/22/25 08:35 Dose: 30 ml Documented By: JOSÉ Melatonin (Melatonin 3 Mg Tablet) 6 mg PO BEDTIME PRN PRN Reason: Insomnia Metoprolol Succinate (Metoprolol Succinate Er 25 Mg Tab.Er.24h) 25 mg PO DAILY [facility]; Protocol Last Admin: 01/24/25 07:50 Dose: 25 mg Documented By: KOKO Morphine Sulfate (Morphine Sulfate 4 Mg/Ml Cartridge) 4 mg IVPUSH Q4H PRN; Protocol PRN Reason: Pain, Severe (Pain Scale 7-10) Last Admin: 01/24/25 07:48 Dose: 4 mg Documented By: KOKO Omeprazole (Omeprazole 20 Mg Capsule.Dr) 20 mg PO DAILY@0630 [facility] Last Admin: 01/24/25 05:16 Dose: 20 mg Documented By: FILIBERTO Ondansetron HCl (Ondansetron Hcl 4 Mg/2 Ml Vial) 4 mg IVPUSH Q8H PRN PRN Reason: Nausea and Vomiting Last Admin: 01/23/25 20:41 Dose: 4 mg Documented By: FILIBERTO Polyethylene Glycol (Polyethylene Glycol 3350 17 Gm Powd.Pack) 17 gm PO DAILY [facility] Last Admin: 01/24/25 07:55 Dose: Not Given Documented By: KOKO Non-Admin Reason: loose stools Ropinirole HCl (Ropinirole Hcl 0.25 Mg Tablet) 1 mg PO BEDTIME [facility] Last Admin: 01/23/25 20:25 Dose: 1 mg Documented By: FILIBERTO Senna/Docusate Sodium (Sennosides/Docusate Sodium Tablet) 1 tab PO Q2D@2100 [facility] Last Admin: 01/22/25 20:02 Dose: 1 tab Documented By: TERESA Sodium Chloride (0.9 % Sodium Chloride Flush 3 Ml Syringe) 3 ml IVFLUSH QSHIFT [facility] Last Admin: 01/24/25 06:42 Dose: Not Given Documented By: KOKO Non-Admin Reason: IV Running Tolterodine Tartrate (Tolterodine Tartrate La 2 Mg Cap.Er.24h) 2 mg PO DAILY [facility] Last Admin: 01/24/25 07:50 Dose: 2 mg Documented By: KOKO Labs 01/21/25 07:47 01/24/25 05:28 Labs: Laboratory Results - last 24 hr 01/23/25 01/23/25 01/24/25 16:08 20:14 05:28 Hold Purple Top SEE NOTE Anion Gap 9 L Estim Creat Clear Calc 91.8 Estimated GFR > 60 POC Glucose 165 H 223 H Random Glucose 150 H Calcium 8.2 L Total Bilirubin 0.8 AST 30 ALT 86 H Alkaline Phosphatase 349 H Total Protein 5.1 L Albumin 2.5 L Lipase 103 H 01/24/25 01/24/25 07:03 11:01 Hold Purple Top Anion Gap Estim Creat Clear Calc Estimated GFR POC Glucose 139 H 293 H Random Glucose Calcium Total Bilirubin AST ALT Alkaline Phosphatase Total Protein Albumin Lipase Microbiology Microbiology Results: Microbiology 01/22/25 13:06 Blood Culture - Preliminary Blood - Venous No growth after 24 hours. 01/22/25 12:44 Blood Culture - Preliminary Blood - Venous No growth after 24 hours. Assessment and Plan (1) Acute pancreatitis: Status: Acute (2) Abnormal LFTs: Status: Acute (3) Bacteremia due to Enterobacter species: Status: Acute Assessment and Plan: 65-year-old female with pertinent history of insulin-dependent diabetes mellitus with diabetic neuropathy, hypertension, mixed hyperlipidemia, mood disorder, gastroesophageal reflux disease, lower extremity edema, restless leg syndrome who presents to the emergency department for evaluation of abdominal pain. Acute interstitial pancreatitis, ? cholestasis , gram negative bacteremia elevated LFTs and alkaline phosphatase MRCP -No evidence of cholelithiasis or choledocholithiasis. Nonspecific pericholecystic fluid, as well as fluid surrounding the descending duodenum, and in the perinephric spaces. Findings could be secondary to acute pancreatitis involving the pancreatic head or duodenal ulcer disease. Acute cholecystitis appears less likely given lack of cholelithiasis or a positive sonographic Mendieta sign on recent ultrasound. HIDA: No gallbladder uptake up to 4 hours following isotope administration is consistent with acute cholecystitis.Findings suggestive of medical cholestasis. In the absence of abnormal common bile ductal dilatation on anatomical imaging, the absence of uptake on scintigraphy is most likely from medical cholestasis rather than ductal obstruction. Triglyceride level normal. plan: clear liquid , pain meds, antibiotics imaging reivewed and d/w surgery-less likely cholecystsitis. Gi follow up -elevated lft's, cholestasis ?,enterobactor cloacae-senstive to cefepime,cipro,bactrim, entropenem. repeat blood cultures -negative @24hrs,ua negative echo:The left ventricular systolic function is low normal. The visually estimated ejection fraction is between 50-55%. No obvious valvular pathology seen on this study. if LFTs not downtrending plan: surgery follwup today-added abd ct scan id-continue cefepime for now ,may need bactrim upon discharge. GI - May need repeat MRI pancreas protocol in 4 weeks (no sooner to allow for interstitial edema to resolve for complete radiographic eval) if no underlying cause of pancreatitis identified Gi and surgery following Acute lactic acidosis: Trending down with ivf , no further trending unless clinicaldeterioration. Insulin-dependent diabetes mellitus with hyperglycemia: Initiating Accu-Cheks with sliding scale insulin every 6 hours while patient is NPO Hypertension: Resume home meds. Mixed hyperlipidemia: Hold statin Mood disorder: Continue home mood stabilizers Gastroesophageal reflux disease: On PPI DVT prophylaxis: Mechanical. add s/c lovenox ongoing need : Pancreatitis, enterobacter bacteremia : Need IV pain medication, unable to tolerate regular diet, antibiotics . patient and her family updated. Quality Stroke Does the patient have a stroke diagnosis?: No VTE Prior VTE?: No VTE Risk Level:: Medical - moderate - high VTE Device Contraindication: N/A - Device Ordered VTE Drug Contraindication: Treatment Not Indicated
[2025-01-24] MEDS: iohexoL 350 MG/ML 100 ML INFUS..BTL IV (14:08)
[2025-01-24] MEDS: Enoxaparin Sodium 40 MG/0.4 ML SYRINGE SUBCUT (14:18)
[2025-01-24 15:17] VITALS: BP 151/72; PULSE 64; RESP 16; TEMP 36.5; O2SAT 95
[2025-01-24 16:08] LABS: Glucose, Whole Blood 119 mg/dL (60-115)
[2025-01-24 19:52] LABS: Glucose, Whole Blood 299 mg/dL (60-115)
[2025-01-24] MEDS: Melatonin 3 MG TABLET 6 MG PO (20:10)
[2025-01-24] MEDS: rOPINIRole HCL 0.25 MG TABLET 1 MG PO (20:10)
[2025-01-24] MEDS: Amitriptyline HCl 10 MG TABLET 5 MG PO (20:11)
[2025-01-24] MEDS: Divalproex Sodium ER 500 MG TAB.ER.24H 1000 MG PO (20:11)
[2025-01-24] MEDS: 0.9 % Sodium Chloride Flush 3 ML SYRINGE IVFLUSH ×2 (20:19)
[2025-01-24 23:43] VITALS: BP 144/65; PULSE 65; RESP 20; TEMP 36.3; O2SAT 95
[2025-01-25] MEDS: cefEPime HCl/D5W 2 GM/50 ML PIGGYBACK IV ×2 (02:56→11:49)
[2025-01-25] MEDS: Omeprazole 20 MG CAPSULE.DR PO (05:44)
[2025-01-25 06:34] LABS: Hematocrit 31.7 % (37.0-47.0); Hemoglobin 10.4 g/dl (12.0-16.0); Mean Corpuscular HGB Conc 32.8 g/dl (31.0-35.0); Mean Corpuscular Hemoglobin 27.7 pg (27.0-33.0); Mean Corpuscular Volume 84.5 fL (80.0-98.0); Mean Platelet Volume 10.6 fL (9.4-12.3); Platelet Count 234 X10*3/uL (160-400); Red Blood Count 3.75 X10*6/uL (4.20-5.50); Red Cell Distribution Width 14.1 % (11.0-16.0); White Blood Count 5.7 X10*3/uL (4.8-10.8)
[2025-01-25 07:03] LABS: Alanine Aminotransferase 69 U/L (0-31); Albumin Level 2.6 g/dL (3.5-5.0); Alkaline Phosphatase 330 U/L (39-117); Anion Gap 11 (12-20); Aspartate Amino Transferase 25 U/L (5-31); Bilirubin Total 0.9 mg/dL (0.0-1.0); Blood Urea Nitrogen 6 mg/dL (9-16); Calcium 8.6 mg/dL (8.4-10.2); Carbon Dioxide 34 mmol/L (22-29); Chloride 100 mmol/L (96-108); Creatinine Clr Calc Pharmacy 91.8; Estimated Glomerular Filt Rate > 60; Glucose Random 192 mg/dL (60-115); Sodium 141 mmol/L (135-145); Total Protein 5.4 g/dL (6.5-8.0)
[2025-01-25 07:12] LABS: Glucose, Whole Blood 162 mg/dL (60-115)
[2025-01-25 07:30] VITALS: BP 113/76; PULSE 90; RESP 16; TEMP 36.5; O2SAT 100
[2025-01-25 07:35] VITALS: BP 169/67; PULSE 61; RESP 18; TEMP 36; O2SAT 97
[2025-01-25] MEDS: Acyclovir 200 MG CAPSULE 400 MG PO (07:41)
[2025-01-25] MEDS: Furosemide 40 MG TABLET PO (07:41)
[2025-01-25] MEDS: amLODIPine Besylate 2.5 MG TABLET PO (07:42)
[2025-01-25] MEDS: 0.9 % Sodium Chloride Flush 3 ML SYRINGE IVFLUSH (07:42)
[2025-01-25] MEDS: Insulin Lispro 100 UNIT/ML 3 ML VIAL SUBCUT ×2 (07:42→11:49)
[2025-01-25] MEDS: Metoprolol Succinate ER 25 MG TAB.ER.24H PO (07:42)
[2025-01-25] MEDS: Tolterodine Tartrate LA 2 MG CAP.ER.24H PO (07:42)
--- NOTE | 2025-01-25 08:02 | P.PNGS_ITS ---
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 She notes improvement in pain. States she only has pain when her stomach is pushed on. Denies nausea, vomiting. She has been ambulating in her room. Passed two bowel movements yesterday. Physical Exam 2 Vital Signs: Vital Signs: Last Vital Signs Temp 96.8 F 01/25/25 07:35 Pulse 61 01/25/25 07:35 Resp 18 01/25/25 07:35 BP 169/67 H 01/25/25 07:35 Pulse Ox 97 01/25/25 07:35 O2 Del Method Room Air 01/25/25 07:35 BMI result Body Mass Index 28.2 Const: General: comfortable and no acute distress O rientation/consciousness: patient oriented x3 Resp: Effort & Inspection: normal respiratory effort and able to speak in complete sentences GI: Inspection: Yes normal to inspection and No distended Palpation (GI): S oft to palpation, Tenderness to palpation present (GI) (mild, lower abdominal tenderness), no guarding and not rigid Neuro: General: patient oriented x3 Objective Data Active Medications Acyclovir (Acyclovir 200 Mg Capsule) 400 mg PO TID [facility] Last Admin: 01/25/25 07:41 Dose: 400 mg Documented By: KOKO Amitriptyline HCl (Amitriptyline Hcl 10 Mg Tablet) 5 mg PO BEDTIME [facility] Last Admin: 01/24/25 20:11 Dose: 5 mg Documented By: YVESQC Amlodipine Besylate (Amlodipine Besylate 2.5 Mg Tablet) 2.5 mg PO DAILY [facility]; Protocol Last Admin: 01/25/25 07:42 Dose: 2.5 mg Documented By: KOKO Calcium Carbonate (Calcium Carbonate 750 Mg Tab.Chew) 750 mg PO Q4H PRN PRN Reason: Heartburn Last Admin: 01/22/25 02:23 Dose: 750 mg Documented By: MARY Dextrose (Dextrose 50 % 25 Gm/50 Ml Syringe) 25 gm IVPUSH Q15M PRN; Protocol PRN Reason: per Hypoglycemia Standing Ord. Divalproex Sodium (Divalproex Sodium Er 500 Mg Tab.Er.24h) 1,000 mg PO BEDTIME [facility] Last Admin: 01/24/25 20:11 Dose: 1,000 mg Documented By: AMMY Enoxaparin Sodium (Enoxaparin Sodium 40 Mg/0.4 Ml Syringe) 40 mg SUBCUT Q24H [facility] Last Admin: 01/24/25 14:18 Dose: 40 mg Documented By: KOKO Furosemide (Furosemide 40 Mg Tablet) 40 mg PO DAILY [facility]; Protocol Last Admin: 01/25/25 07:41 Dose: 40 mg Documented By: KOKO Glucose (Glucose Gel 15 Gm Gel..Gram.) 15 gm PO Q15M PRN; Protocol PRN Reason: per Hypoglycemia Standing Ord. Cefepime HCl (Maxipime) 2 gm in 50 mls @ 100 mls/hr IV Q8H [facility] Last Infusion: 01/25/25 03:33 Dose: Infused Documented By: AMMY Insulin Human Lispro (Insulin Lispro 100 Unit/Ml 3 Ml Vial) 0 unit SUBCUT QIDACHS [facility]; Protocol Last Admin: 01/25/25 07:42 Dose: 2 unit Documented By: KOKO Magnesium Hydroxide (Milk Of Magnesia 30 Ml Oral.Susp) 30 ml PO DAILY PRN PRN Reason: Constipation Last Admin: 01/22/25 08:35 Dose: 30 ml Documented By: JOSÉ Melatonin (Melatonin 3 Mg Tablet) 6 mg PO BEDTIME PRN PRN Reason: Insomnia Last Admin: 01/24/25 20:10 Dose: 6 mg Documented By: AMMY Metoprolol Succinate (Metoprolol Succinate Er 25 Mg Tab.Er.24h) 25 mg PO DAILY [facility]; Protocol Last Admin: 01/25/25 07:42 Dose: 25 mg Documented By: KOKO Omeprazole (Omeprazole 20 Mg Capsule.Dr) 20 mg PO DAILY@0630 [facility] Last Admin: 01/25/25 05:44 Dose: 20 mg Documented By: AMMY Ondansetron HCl (Ondansetron Hcl 4 Mg/2 Ml Vial) 4 mg IVPUSH Q8H PRN PRN Reason: Nausea and Vomiting Last Admin: 01/23/25 20:41 Dose: 4 mg Documented By: FILIBERTO Polyethylene Glycol (Polyethylene Glycol 3350 17 Gm Powd.Pack) 17 gm PO DAILY [facility] Last Admin: 01/25/25 07:44 Dose: Not Given Documented By: KOKO Non-Admin Reason: loose stools Ropinirole HCl (Ropinirole Hcl 0.25 Mg Tablet) 1 mg PO BEDTIME [facility] Last Admin: 01/24/25 20:10 Dose: 1 mg Documented By: AMMY Senna/Docusate Sodium (Sennosides/Docusate Sodium Tablet) 1 tab PO Q2D@2100 [facility] Last Admin: 01/24/25 20:18 Dose: Not Given Documented By: AMMY Non-Admin Reason: LOOSE STOOLS Sodium Chloride (0.9 % Sodium Chloride Flush 3 Ml Syringe) 3 ml IVFLUSH QSHIFT [facility] Last Admin: 01/25/25 07:42 Dose: 3 ml Documented By: KOKO Tolterodine Tartrate (Tolterodine Tartrate La 2 Mg Cap.Er.24h) 2 mg PO DAILY [facility] Last Admin: 01/25/25 07:42 Dose: 2 mg Documented By: KOKO Labs 01/25/25 05:23 01/25/25 05:23 Labs: Laboratory Results - last 24 hr 01/24/25 01/24/25 01/24/25 11:01 16:05 19:47 MCV MCH MCHC RDW Plt Count MPV Absolute Nucleated RBC Nucleated RBC % (auto) Anion Gap Estim Creat Clear Calc Estimated GFR POC Glucose 293 H 119 H 299 H Random Glucose Calcium Total Bilirubin AST ALT Alkaline Phosphatase Total Protein Albumin 01/25/25 01/25/25 05:23 07:05 MCV 84.5 MCH 27.7 MCHC 32.8 RDW 14.1 Plt Count 234 D MPV 10.6 Absolute Nucleated RBC 0.000 Nucleated RBC % (auto) 0.0 Anion Gap 11 L Estim Creat Clear Calc 91.8 Estimated GFR > 60 POC Glucose 162 H Random Glucose 192 H Calcium 8.6 Total Bilirubin 0.9 AST 25 ALT 69 H Alkaline Phosphatase 330 H Total Protein 5.4 L Albumin 2.6 L Microbiology Microbiology Results: Microbiology 01/22/25 13:06 Blood Culture - Preliminary Blood - Venous No growth after 48 hours. 01/22/25 12:44 Blood Culture - Preliminary Blood - Venous No growth after 48 hours. Procedures Date of Service Date of Service: 01/25/25 Progress Note: A&P Assessment and plan (1) Acute pancreatitis: Status: Acute Plan 65-year-old female admitted to [facility] [place] for pancreatitis. Followed by general surgery for elevated liver enzymes and evidence of cholestasis. Pain is improving. Liver enzymes, bilirubin, improved this morning. Exam benign aside from mild lower abdominal pain to palpation. Imaging showing improvement in pericholecystic fluid, no gallstones or bile duct dilation. She is tolerating mild ambulation. Recommend full liquid diet, as tolerated continue current pain regimen Recommend ambulation as tolerated Continue with conservative management, so surgical indication at this time Will continue to follow Time Spent With Patient Time: Total time managing care of this patient today ____ minutes. Quality Stroke Does the patient have a stroke diagnosis?: No VTE Prior VTE?: No VTE Risk Level:: Medical - moderate - high VTE Device Contraindication: N/A - Device Ordered VTE Drug Contraindication: Treatment Not Indicated
--- NOTE | 2025-01-25 10:43 | MHC.CM.PN ---
Addendum entered by Maddie Salamanca RN 01/25/25 13:56: Medically cleared for dc home self care. Original Note: Per MD rounds, advance diet and potential dc later today. [facility] [place], and [facility] aware. IMM delivered.
[2025-01-25 11:10] LABS: Glucose, Whole Blood 361 mg/dL (60-115)
--- NOTE | 2025-01-25 13:17 | P.DS_ITS ---
DS: Providers Provider Date of Service: 01/25/25 Date of admission: 01/19/25 20:21 Date of discharge: 01/25/25 Primary care physician: Evelia Donald MD Consults: 01/19/25 20:22 Consult to Gastroenterology Routine Consulting Provider: Westley Boucher Reason for consultation: pancreatitis, elevated lfts 01/19/25 21:25 Consult to General Surgery Routine Consulting Provider: [facility] Reason for consultation: ?acute cholecystitis 01/22/25 08:58 Consult to Infectious Diseases Routine Consulting Provider: [facility] Reason for consultation: Enterococcus bacteremia Has provider been notified: No DS: Diagnosis Discharge Diagnosis (1) Acute pancreatitis: Status: Acute DS: Summary Hospital Course Hospital Course: History and physical as per admitting provider. This has a 65-year-old female with pertinent history of insulin-dependent diabetes mellitus with diabetic neuropathy, hypertension, mixed hyperlipidemia, mood disorder, gastroesophageal reflux disease, lower extremity edema, restless leg syndrome who presents to the emergency department for evaluation of abdominal pain. Patient states abdominal pain started 1 day prior to presentation. She started having epigastric abdominal discomfort which was constant, nonradiating and without any relieving factors. Also had associated nausea and multiple episodes of nonbloody emesis. Her symptoms were progressive and no similar symptoms or history of pancreatitis in the past. No documented fever or chills. No chest pain, palpitations, shortness of breath, changes in urinary or bowel habits. Patient is Greek speaking and history obtained with the help of clinical trials nurse. Patient denies alcohol use. In the emergency department, lipase elevated and imaging concerning for acute interstitial pancreatitis. Also noticed fluid around gallbladder but negative sonographic Mendieta's sign. Total bilirubin 3.4, AST 309, ALT 255 and alkaline phosphatase 211. 65-year-old woman treated for acute interstitial pancreatitis with cholestasis and Enterobacter bacteremia. She was treated with IV fluids, initially started on clear liquid diet. Imaging studies showed no cholecystitis, she had elevated LFTs initially but did trend down. Echocardiogram showed low-normal systolic function with no valvular pathology. She was treated with cefepime IV and plan will be to send her home with Bactrim as per ID. She may need repeat MRI of the pancreas in 4 weeks to see resolution of inflammation. Patient is tolerating a regular diet and she will be sent home to complete antibiotics. Acute lactic acidosis. Trended down with IV fluids. Diabetes mellitus type 2. Continue home medications Hypertension. Continue amlodipine, lisinopril, metoprolol Hyperlipidemia. Continue statin GERD. Continue PPI Mental health. Continue home medications Time Attestation Discharge Coordination Time (in mins): 42 Quality: Safe Use of Opioids Does Pt have an Active Cancer Diagnosis on the Problem List?: No Quality: Stroke Does the patient have a stroke diagnosis?: No Physical Exam Vital Signs: Vital Signs: Last Vital Signs Temp 96.8 F 01/25/25 07:35 Pulse 61 01/25/25 07:35 Resp 18 01/25/25 07:35 BP 169/67 H 01/25/25 07:35 Pulse Ox 97 01/25/25 07:35 O2 Del Method Room Air 01/25/25 07:35 BMI result Body Mass Index 28.2 Appearing in no acute distress head is normocephalic atraumatic eyes pupils are PERRLA sclera is anicteric mouth throat mucous membranes are intact and moist neck is supple no lymphadenopathy, no JVD noted lung sounds are clear to auscultation heart regular rate rhythm, clear S1, S2 positive bowel sounds, abdomen is soft, nontender neuro patient is alert x3, no focal deficits DS: Data Data Completed and Pending Labs on day of discharge: Laboratory Results - last 24 hr 01/24/25 01/24/25 01/25/25 16:05 19:47 05:23 WBC 5.7 RBC 3.75 L Hgb 10.4 L Hct 31.7 L MCV 84.5 MCH 27.7 MCHC 32.8 RDW 14.1 Plt Count 234 D MPV 10.6 Absolute Nucleated RBC 0.000 Nucleated RBC % (auto) 0.0 Sodium 141 Potassium 4.0 Chloride 100 Carbon Dioxide 34 H Anion Gap 11 L BUN 6 L Creatinine 0.64 Estim Creat Clear Calc 91.8 Estimated GFR > 60 POC Glucose 119 H 299 H Random Glucose 192 H Calcium 8.6 Total Bilirubin 0.9 AST 25 ALT 69 H Alkaline Phosphatase 330 H Total Protein 5.4 L Albumin 2.6 L 01/25/25 01/25/25 07:05 11:06 WBC RBC Hgb Hct MCV MCH MCHC RDW Plt Count MPV Absolute Nucleated RBC Nucleated RBC % (auto) Sodium Potassium Chloride Carbon Dioxide Anion Gap BUN Creatinine Estim Creat Clear Calc Estimated GFR POC Glucose 162 H 361 H* Random Glucose Calcium Total Bilirubin AST ALT Alkaline Phosphatase Total Protein Albumin Preliminary micro results at discharge 01/22/25 13:06 Blood Culture - Preliminary Blood - Venous No growth after 48 hours. 01/22/25 12:44 Blood Culture - Preliminary Blood - Venous No growth after 48 hours. Discharge Plan Discharge Anticipated Discharge Date/Time: 01/25/25 12:33 Patient Disposition: Home, Self-Care Discharge Diagnosis: Acute on chronic pancreatitis Cholestasis Enterobacter cloacae Referrals: Evelia Sweet MD [Primary Care Provider] - 1 Week Discharge Medications: New sulfamethoxazole-trimethoprim [Bactrim DS] 800-160 mg tablet 1 tab PO BID Qty: 8 0RF Continued acetaminophen 500 mg capsule 500 mg PO Q6H PRN (Reason: fever) 30 Days Qty: 120 1RF (DME) walker Misc See Rx Instructions .Route Qty: 1 0RF Rx Instructions: As directed omeprazole 20 mg capsule,delayed release(DR/EC) 20 mg PO DAILY Qty: 90 0RF lisinopril 20 mg tablet 40 mg PO DAILY 90 Days Qty: 180 0RF divalproex 500 mg tablet extended release 24 hr 1,000 mg PO BEDTIME 90 Days Qty: 180 0RF (DME) blood-glucose meter [FreeStyle Lite Meter] Kit See Rx Instructions .Route Qty: 1 0RF Rx Instructions: As directed insulin aspart U-100 [Novolog FlexPen U-100 Insulin] 100 unit/mL (3 mL) insulin pen 10 unit subcut TID 90 Days Qty: 27 0RF atorvastatin 10 mg tablet 10 mg PO DAILY 90 Days Qty: 90 0RF insulin glargine [Lantus Solostar U-100 Insulin] 100 unit/mL (3 mL) insulin pen 48 unit subcut DAILY 90 Days Qty: 43.2 0RF furosemide 40 mg tablet 40 mg PO DAILY Qty: 90 3RF (DME) FreeStyle Test Strip See Rx Instructions .Route Qty: 100 6RF Rx Instructions: As directed three times a day tolterodine 2 mg capsule,extended release 24hr 2 mg PO DAILY 90 Days Qty: 90 1RF (DME) pen needle, diabetic [1st Tier Unifine Pentips] 32 gauge x 5/32 needle See Rx Instructions .Route Qty: 100 0RF Rx Instructions: Use 1 pen needle three times a day acyclovir 400 mg tablet 400 mg PO TID 30 Days Qty: 90 0RF ondansetron 4 mg tablet,disintegrating 4 mg PO Q6-8H PRN (Reason: nausea and vomiting) Qty: 7 0RF amlodipine 5 mg tablet 2.5 mg PO DAILY Trulicity 1.5 mg/0.5 mL pen injector 1.5 mg subcut FR sennosides-docusate sodium [Senna with Docusate Sodium] 8.6-50 mg tablet 1 tab PO Q2D@2100 Rx Instructions: Please take 2 tab every day at bedtime ropinirole 0.25 mg tablet 1 mg PO BEDTIME amitriptyline 10 mg tablet 5 mg PO BEDTIME polyethylene glycol 3350 [Miralax] 17 gram/dose powder 17 g PO DAILY (DME) blood-glucose meter [Chef Dovunque Autocode Meter] Kit See Rx Instructions .Route Qty: 1 0RF Rx Instructions: As directed (DME) lancets [Chef Dovunque Lancets] 28 gauge misc See Rx Instructions .Route Qty: 100 11RF Rx Instructions: Use 1 lancet four times a day metoprolol succinate 25 mg tablet extended release 24 hr 25 mg PO DAILY Qty: 30 5RF Rx Instructions: Stop amlodipine Start metoprolol Discharge Orders: Discharge Order (Routine); Ordered 01/25/25 Ordered By: Mary Orozco Diet: Advance to usual diet Activity on Discharge: As tolerated Stand Alone Forms: Patient Portal Discharge page Print Language: Greek Care Plan Goals: Follow up with outpatient rug receiving clerk Health Concerns: Acute on chronic pancreatitis Cholestasis Enterobacter cloacae Plan of Treatment: Follow up with primary care provider as needed Take all medications as prescribed Assessment: See discharge summary Patient Instructions: Sulfamethoxazole/Trimethoprim (By mouth), Pancreatitis (DC), Bacteremia (DC)
== END 2025-01-25 14:35 | disposition home or self-care (01) | DRG 439 ==
LOC: HO.ED 20:20 → HO.EDOVER 20:52 → HO.S3 01-20 07:30
PROVIDERS: Internal Medicine; Admitting Provider Student in an Organized Health Care Education/Training Program; Emergency Provider Emergency Medicine; PCP Internal Medicine; Visit Provider Nurse Practitioner Acute Care
DX: K85.80 Other acute pancreatitis without necrosis or infection (principal); E87.21 Acute metabolic acidosis; R78.81 Bacteremia; K86.1 Other chronic pancreatitis; E11.65 Type 2 diabetes mellitus with hyperglycemia; B96.89 Other specified bacterial agents as the cause of diseases classified elsewhere; K21.9 Gastro-esophageal reflux disease without esophagitis; F39 Unspecified mood [affective] disorder; G25.81 Restless legs syndrome; E11.40 Type 2 diabetes mellitus with diabetic neuropathy, unspecified; I10 Essential (primary) hypertension; E78.2 Mixed hyperlipidemia; Z20.822 Contact with and (suspected) exposure to COVID-19; Z79.4 Long term (current) use of insulin; Z79.899 Other long term (current) drug therapy
CPT/HCPCS: 0241U; 36415; 74170; 74177; 74181; 76705; 78226; 80053; 81003; 82248; 82947; 83605; 83690; 83735; 84478; 85007; 85025; 85027; 86140; 87040; 87077; 87186; 87205; 93306; 99285; A9537; J0692; J0696; J1650; J1836; J2270; J2405; J2543; J3475; J3480; J7120; Q9957; Q9967

== ENCOUNTER → 2025-01-19 13:00 | Outpatient (BNV) | payer OTHER, SELFPAY | PROVIDERS: Emergency Provider Emergency Medicine; PCP Internal Medicine; Visit Provider Radiology Diagnostic Radiology | DX: K81.0 Acute cholecystitis (principal) | CPT/HCPCS: 74177; 76705 ==

== ENCOUNTER → 2025-01-19 13:21 | Outpatient (BNV) | payer OTHER, SELFPAY | PROVIDERS: Emergency Provider Emergency Medicine; PCP Internal Medicine; Visit Provider Surgery | DX: K85.90 Acute pancreatitis without necrosis or infection, unspecified (principal); R79.89 Other specified abnormal findings of blood chemistry | CPT/HCPCS: 99222; 99232 ==

== ENCOUNTER 2025-01-19 20:21 | Outpatient (BNV) | payer OTHER, SELFPAY | END 2025-01-24 13:57 | PROVIDERS: Admitting Provider Student in an Organized Health Care Education/Training Program; Emergency Provider Emergency Medicine; PCP Internal Medicine; Visit Provider Radiology Diagnostic Radiology | DX: K85.00 Idiopathic acute pancreatitis without necrosis or infection (principal) | CPT/HCPCS: 74170 ==

== ENCOUNTER 2025-01-19 20:21 | Outpatient (BNV) | payer OTHER, SELFPAY | END 2025-01-20 12:30 | PROVIDERS: Admitting Provider Student in an Organized Health Care Education/Training Program; Emergency Provider Emergency Medicine; PCP Internal Medicine; Visit Provider Radiology Diagnostic Radiology | DX: R10.9 Unspecified abdominal pain (principal); R74.01 Elevation of levels of liver transaminase levels | CPT/HCPCS: 74181; 78226 ==

== ENCOUNTER 2025-01-19 20:21 | Outpatient (BNV) | payer OTHER, SELFPAY | END 2025-01-24 07:00 | PROVIDERS: Admitting Provider Student in an Organized Health Care Education/Training Program; Emergency Provider Emergency Medicine; PCP Internal Medicine; Visit Provider Internal Medicine | DX: R78.81 Bacteremia (principal); B95.2 Enterococcus as the cause of diseases classified elsewhere | CPT/HCPCS: 93306 ==

== ENCOUNTER → 2025-01-19 20:21 | Outpatient (BNV) | payer OTHER, SELFPAY | PROVIDERS: Admitting Provider Student in an Organized Health Care Education/Training Program; Emergency Provider Emergency Medicine; PCP Internal Medicine; Visit Provider Student in an Organized Health Care Education/Training Program | DX: K85.90 Acute pancreatitis without necrosis or infection, unspecified (principal); R79.89 Other specified abnormal findings of blood chemistry | CPT/HCPCS: 99223; 99232; 99239 ==

== ENCOUNTER → 2025-01-19 20:21 | Outpatient (BNV) | payer OTHER, SELFPAY | PROVIDERS: Admitting Provider Student in an Organized Health Care Education/Training Program; Emergency Provider Emergency Medicine; PCP Internal Medicine; Visit Provider Internal Medicine | DX: R78.81 Bacteremia (principal); B96.89 Other specified bacterial agents as the cause of diseases classified elsewhere; K85.90 Acute pancreatitis without necrosis or infection, unspecified; R79.89 Other specified abnormal findings of blood chemistry | CPT/HCPCS: 99222; 99499 ==

== ENCOUNTER → 2025-01-19 20:21 | Outpatient (BNV) | payer OTHER, SELFPAY | PROVIDERS: Admitting Provider Student in an Organized Health Care Education/Training Program; Emergency Provider Emergency Medicine; PCP Internal Medicine; Visit Provider Internal Medicine | DX: R78.81 Bacteremia (principal); B96.89 Other specified bacterial agents as the cause of diseases classified elsewhere; K85.90 Acute pancreatitis without necrosis or infection, unspecified; R79.89 Other specified abnormal findings of blood chemistry | CPT/HCPCS: 99223; 99232 ==

== ENCOUNTER 2025-01-27 10:08 | Outpatient (AMB) | payer OTHER, SELFPAY ==
--- NOTE | 2025-01-27 10:11 | A.OFFPC_ITS ---
Vital Signs 01/27/25 10:13 Height 5 ft 6 in Weight 172 lb 2 oz BMI 27.8 BP 130/70 Blood Pressure Location Lt brachial Position Sitting Pulse 87 Pulse Source Pulse Oximeter Temp 96.9 F Temp Source Temporal Artery Scan Pulse Oximetry (%) 98 Oxygen Delivery Method Room Air Intake Visit Reasons: [facility] 01/13 ABD pain Intake Note: Patient is here to follow-up after a visit the emergency department at [facility] on 01/13/25 Roofing Subcontractor Required: Yes Roofing Subcontractor Language: Dehydrogenation Converter Helper Name: Meng ([id number]) Information Interpreted: non-clinical & clinical Composer Teaching Artist: Not Required per policy Accompanied by: Self / Same As Patient Allergies Penicillins Allergy (Intermediate, Verified 01/27/25 10:12) rash/swelling shellfish derived Allergy (Intermediate, Verified 01/27/25 10:12) Swelling, Hives Tobacco use date assessed: 01/27/25 Fall risk assessment: No Falls in past year Last assessed Fall Risk: 01/27/25 Dental Screening Dental Screen Date: 01/27/25 Did you have a dental visit in the last 12 months?: Yes Did you have a dental problem in the last 6 months where you did not have access to dental care?: No Was dental information given to patient?: Patient has dentist HPI HPI Comments History of Present Illness Details 65 y/o Female patient who presents to [facility] for HDF. Pmhx significant for insulin-dependent diabetes mellitus with diabetic neuropathy, hypertension, mixed hyperlipidemia, mood disorder, Gastroesophageal reflux disease, lower extremity edema, and restless leg syndrome. She was admitted at [facility] on 01/19 - 01/25 for abdominal pain. She was diagnosed with Acute Pancreatitis and treated with IV Antibiotics. [facility] Medical History Osteoporosis Hypertension History of blood clot in brain Hypercholesteremia HSV-2 (herpes simplex virus 2) infection Arthritis Rheumatic fever Schizophrenia GERD (gastroesophageal reflux disease) Depression HTN (hypertension) Hyperlipemia Diabetes Surgical History Hx of colonoscopy History of tubal ligation History of cystostomy History of 2 sections Family History Sister Age: 63 Osteoarthritis Mother Cancer of lymphatic and hematopoietic tissue, Onset Age: 83 COVID-19 Father FH: heart attack Brother FH: heart attack Other Diabetes HTN (hypertension) Mental health disorder Social History Household Members: None Household Members Other:: sister Housing: Apartment Do you presently have visiting nurse or other home services: No Alcohol intake: never Patient Tobacco Use Status: Never used Tobacco e-Cigarette/Vaping Use: Never Used Second Hand Smoke Exposure: No Advance Directives Date on File: 12/05/21 service: No Current occupational status: disabled Sexual orientation: Straight/Heterosexual Gender identity: Female Cognitive needs: Yes (walker) Hearing needs: No Vision needs: Yes (glasses) Female Reproductive History Menstrual Age of Menarche: 12 Questionnaire PHQ-9 Over the last 2 weeks, how often have you been bothered by any of the following problems? 1. Little interest or pleasure in doing things: not at all 2. Feeling down, depressed, or hopeless: not at all 3. Trouble falling or staying asleep, or sleeping too much: not at all 4. Feeling tired or having little energy: not at all 5. Poor appetite or overeating: not at all 6. Feeling bad about yourself - or that you are a failure or have let yourself or your family down: not at all 7. Trouble concentrating on things, such as reading the newspaper or watching television: not at all 8. Moving or speaking so slowly that other people could have noticed. Or the opposite - being so fidgety or restless that you have been moving around a lot more than usual: not at all 9. Thoughts that you would be better off or of hurting yourself in some way: not at all Total score: 0 Depression Screening Interpretation: Negative Depression Screening Done: Yes Source: Developed by Drs. Rajendra Gutierrez, Juanita Junior, Tyson Mike and colleagues, with an educational otis from [employer]. Thrive Questionnaire Date Thrive assessed: 01/20/25 AUDIT C Alcohol Use Questionnaire (AUDIT-C) 1. How often do you have a drink containing alcohol?: Never Total Score: 0 ÓSCAR-7 AMB Questionnaire ÓSCAR-7 Date ÓSCAR - 7 assessed: 05/09/25 Feeling nervous, anxious, or on edge: 0 = Not at all Not being able to stop or control worryin = Not at all Worrying too much about different things: 0 = Not at all Trouble relaxin = Not at all Being so restless that it is hard to sit still: 0 = Not at all Becoming easily annoyed or irritable: 0 = Not at all Feeling afraid as if something awful might happen: 0 = Not at all Total ÓSCAR-7 score (0-4 normal; 5-9 mild; 10-14 moderate; 15-21 severe): 0 Source: Developed by Drs. Rajendra Gutierrez, Juanita Junior, Tyson Mike and colleagues, with an educational otis from [employer]. Review of Systems Const All systems reviewed & are unremarkable except as noted in HPI and below Physical exam (Primary Care) Vital Signs: Last Vital Signs Temp 96.9 F 01/27/25 10:13 Pulse 87 01/27/25 10:13 BP 130/70 01/27/25 10:13 Pulse Ox 98 01/27/25 10:13 Oxygen Delivery Method Room Air 01/27/25 10:13 BMI result Body Mass Index 27.8 Tobacco/Smoking Status: Tobacco use Status Tobacco use date assessed 01/27/25 01/27/25 10:21 Patient Tobacco Use Status Never used Tobacco 01/27/25 10:21 e-Cigarette/Vaping Use Never Used 01/27/25 10:21 PHQ-9: PHQ-9 Score PHQ-9: Total score 0 01/27/25 10:21 Depression Screening Interpretation: Negative Thrive Assessment: Date of Thrive Assessment Date Thrive assessed 01/20/25 01/27/25 10:21 Resp Effort & Inspection: normal respiratory effort Auscultation: clear to auscultation bilaterally Cardio Heart sounds: S1 normal heart sound present and S2 normal heart sound present GI Inspection: Yes Abdominal panniculus present and Yes obesity Palpation (GI): Soft to palpation Auscultation: normal bowel sounds Coding Level of Care Code Est Pt Level 4 (53648) Diagnoses Other acute pancreatitis, unspecified complication status K85.80 Acute pancreatitis complication: unspecified Chronicity: acute Pancreatitis type: other Time Spent (min) 20 Assessment & Plan Assessment & Plan (1) Pancreatitis: Code(s): K85.90 - Acute pancreatitis without necrosis or infection, unspecified Category: Medical Qualifiers: Acute pancreatitis complication: unspecified Chronicity: acute Pancreatitis type: other Qualified Code(s): K85.80 - Other acute pancreatitis without necrosis or infection Plan: Resolved.
[2025-01-27 10:13] VITALS: BP 130/70; PULSE 87; TEMP 36.1; O2SAT 98; BMI 27.8
--- OUTSIDE RECORDS SUMMARY | 2025-01-27 10:36 | XMS_ITS | Continuity of Care Document ---
Author Organization [facility] Address [address] [place] [address] Phone Care Team Providers Care Exhibition Specialist Name Role Phone Blaise FREEMAN, Ujjwala Unavailable [...] THE SKIN ONCE EVERY WEEK. DELIVER TO [facility] - Active acetaminophen ER 650 mg tablet,extended [...] Active clonazepam 0.5 mg tablet RX BY [facility] -- DO NOT REFILL -- REDUCED IN FEB take 0.5 tablet by oral route every day - Active lisinopril 20 mg tablet take 1 tablet by oral route every day 20 MG Fe - Active hydrochlorothiazide 12.5 mg tablet take 1 tablet by oral route every day 12.5 MG - Active divalproex ER 500 mg tablet,extended release 24 hr take 2 tablet by oral route every bedtime 1000 MG - Active glucose 4 gram chewable tablet take one tablet by mouth if blood sugar drops below 80 as directed - Active Debrox 6.5 % ear drops instill 5 drop by otic route once daily into the left ear on (-) for 5 days total - Active PLEASE DELIVER TO [address] [facility] ELDERCARE pen needle, diabetic 31 gauge x 5/16 use 4 times a day as directed - Active ammonium lactate 12 % topical cream apply to affected area BID - Active Humalog U-100 Insulin 100 unit/mL subcutaneous solution inject by subcutaneous route pre lunch on per Sliding scale - Active Please send to [facility]. Please do not autorefill.\Un julianna 200-no insulin. 201-250-4 units, 251-300-6 units, 301-350-8 units, over 350 inform clinician Natasha Ultra Strength 4 %-30 %-10 % topical cream apply to affrected area up to 3 times a day as directed - Active trazodone 100 mg tablet RX BY [facility] -- DO NOT REFILL -- take 1 tablet by oral route every bedtime - Active acetaminophen 325 mg tablet FOR USE AT DAY PROGRAM -- take 2 tablet by oral route every 4 hours as needed for pain, please do not exceed 2 doses/day at - Active polyethylene glycol 3350 17 gram/dose oral powder FOR USE AT [facility] DAY PROGRAM - mix 17g into water [...] Critical access hospital, [address], [place], [place], [id number], [place] tel:[phone] [place] No Information Sep- 4 Bhagavatula Ujjwala. [address] [place], [id number], [place]. tel:[phone] Critical access hospital, [address], [place], [place], [id number], [place] tel:[phone] [place] No Information Feb-2 3 Dorothea Barb. [address] [facility] [place], [id number], [place]. tel:[phone] Critical access hospital, [address], [place], [place], [id number], [place] tel:[phone] [place] No Information Feb- 3 Bhagavatula Umarlinjwala. [address] [place], [id number], [place]. tel:[phone] Critical access hospital, [address], [place], [place], [id number], [place] tel:[phone] [place] Other chronic pain Feb-0 3 Jojo Ojeda. [address] [place] [address], [id number], [place]. tel:[phone] Critical access hospital, [address], [place], [place], [id number], [place] tel:[phone] [place] Muscle weakness (generalized)Other chronic pain January- 3 Jojo Ojeda. [address], [place], [id number], [place]. tel:[phone] Critical access hospital, [address], [place], [place], [id number], [place] tel:[phone] [place] Other chronic painMuscle weakness (generalized) January- 3 Uribe Lynette. [address], [place], [id number], [place]. tel:[phone] Critical access hospital, [address], [place], [place], [id number], [place] tel:[phone] [place] Other chronic pain January- 3 Uribe Lynette. [address], [place], [id number], [place]. tel:[phone] Critical access hospital, [address], [place], [place], [address], [place] tel:[phone] [place] Acute right-sided lo w back pain with right-sided sciatica January- 3 Baldemar Landrum. [address] [place], [place], [id number], [place]. tel:[phone] Critical access hospital, [address] [facility] [address], [place], [place], [id number], [place] tel:[phone] [place] Acute right-sided lo w back pain with right-sided sciatica January-0 3 Baldemar Landrum. [address] [facility] [place], [address], [place]. tel:[phone] Critical access hospital, [address] [facility] [address], [place], [place], [id number], [place] tel:[phone] [place] Encounter for rehabilitation evaluationAcute right-sided low back pain with right-sided sciatica January-0 3 Baldemar Landrum. [address] [facility] [place], [id number], [place]. tel:[phone] Critical access hospital, [address] [facility] [address], [place], [place], [id number], [place] tel:[phone] [place] Lower extremity edema (chief complaint) Localized edemaRadicular pain May-0 3 Blaise Nieto. [address] [facility] [place], [id number], [place]. tel:[phone] Critical access hospital, [address], [place], [place], [address], [place] tel:[phone] [place] Lumbago with sciatic a, right side January- 3 No Information Critical access hospital, [address], [place], [place], [id number], [place] tel:[phone] [place] No Information 3 No Information Critical access hospital, [address], [place], [place], [id number], [place] tel:[phone] [place] No Information 3 No Information Critical access hospital, [address], [place], [place], [id number], [place] tel:[phone] [place] Encounter for genera l adult medical examination without abnormal findings 3 Pedro Luis Crystal. [address] [facility] [place], [id number], [place]. tel:[phone] Critical [facility] hospital, [address] [facility] [address], [place], [place], [id number], [place] tel:[phone] [place] OV (chief complaint) Localized edemaLeg cramps Nov- 3 Bhagavatula Ujjwala. [address], [place], [place], [id number], [place]. tel:[phone] Critical access hospital, [address] [facility], [place], [place], [address], [place] tel:[phone] [place] No Information Nov- 3 Bhagavatula Ujjwala. [address] [place], [id number], [place]. tel:[phone] Critical access hospital, [address], [place], [place], [id number], [place] tel:[phone] [place] OV (chief complaint) Bipolar 1 disorder Nov- 0 3 Bhagavatula Ujjwala. [address] [place], [address], [place]. tel:[phone] [facility] hospital, [facility], [place], [place], [id number], [place] tel:[phone] [place] No Information 0- 3 Blaise Ujjwala. [address] [place], [id number], [place]. tel:[phone] Critical access hospital, [facility], [place], [place], [id number], [place] tel:[phone] [place] No Information 2 3 No Information Critical access hospital, 1 [facility], [place], [place], [id number], [place] tel:[phone] [place] No Information b-0 3 Pedro Luis Crystal. [address] [place], [address], [place]. tel:[phone] Critical access hospital, [facility], [place], [place], [id number], [place] tel:[phone] [place] RAJENDRA (chief complaint) Bipolar 1 disorderGAD (generalized anxiety disorder)Schizophrenia, unspecified typeHypertension, unspecified typeHypercholesteremiaT ype 2 diabetes mellitus without complication, with long-term current use of insulinLong term current use of insulinHypothyroidism, unspecified typeLong-term current use of injectable noninsulin antidiabetic medicationGastroesophag eal reflux disease without esophagitisEdema, unspecified typeTremorExcessive cerumen in left ear canal b-0 8- 3 Pedro Luis Crystal. [address] [place], [id number], [place]. tel:[phone] Critical access hospital, 1 [facility], [place], [place], [id number], [place] tel:[phone] [place] No Information b0 2- 3 Pedro Luis Crystal. [address] [place], [id number], [place]. tel:[phone] Critical access hospital, [address], [place], [place], [id number], [place] tel:[phone] [place] Skin excoriation 3 Pedro Luis Crystal. [address] [place], [address], [place]. tel:[phone] Critical access hospital, [address], [place], [place], [id number], [place] tel:[phone] [place] Encounter for nutritional assessmentOther obesityDeficiency of other specified nutrient elements 3 Renetta Seamana. [address] [facility] [place], [address], [place]. tel:[phone] Critical access hospital, [address], [place], [place], [address], [place] tel:[phone] [place] OV (chief complaint) Left foot pain 3 Pedro Luis Crystal. [address] [place], [address], [place]. tel:[phone] Critical access hospital, [address] [facility] [facility], [place], [place], [address], [place] tel:[phone] [place] No Information 3 No Information Critical access hospital, [address] [facility], [place], [place], [id number], [place] tel:[phone] [place] Encounter for rehabilitation evaluationChronic bilateral low back pain, unspecified whether sciatica presentOther chronic painPain of both shoulder jointsPain in left shoulder 3 Ren Ruelas. [address] [place], [address], [place]. tel:[phone] Critical access hospital, [address], [place], [place], [id number], [place] tel:[phone] [place] Other lack of coordinationChronic midline low back pain, unspecified whether sciatica presentOther chronic pain 0 3 Ren Jessenia. [address] [place], [place], [id number], [place]. tel:[phone] Critical access hospital, [address], [place], [place], [address], [place] tel:[phone] [place] Other lack of coordination Aug- 2 Ren Jessenia. [address] [place], [place], [id number], [place]. tel:[phone] Critical access hospital, [address], [place], [place], [address], [place] tel:[phone] [place] Other chronic painOt her lack of coordination Aug- 2 Ren Jessenia. [address] [place], [place], [address], [place]. tel:[phone] Critical access hospital, [address], [place], [place], [address], [place] tel:[phone] [place] Other lack of coordinationChronic bilateral low back pain, unspecified whether sciatica presentOther chronic pain Aug- 2 Ren Jessenia. [address] [place], [place], [address], [place]. tel:[phone] Critical access hospital, [address] [facility], [place], [place], [address], [place] tel:[phone] [place] Muscle weakness (generalized) Aug- 2 Ren Jessenia. [address] [place], [place], [id number], [place]. tel:[phone] Critical access hospital, [address], [place], [place], [address], [place] tel:[phone] [place] Oropharyngeal dysphagia Aug- 2 Casebrain Sofiya. [address] [place], [place], [address], [place]. tel:[phone] Critical access hospital, [address], [place], [place], [id number], [place] tel:[phone] [place] Other lack of coordination Dec-1 3-202 2 Ren Ruelas. [address] [place], [place], [address], [place]. tel:[phone] Critical access hospital, [address], [place], [place], [address], [place] tel:[phone] [place] Other lack of coordination Dec-0 8-202 2 Ren Jessenia. [address] [place], [place], [address], [place]. tel:[phone] Critical access hospital, [address], [place], [place], [id number], [place] tel:[phone] [place] Oropharyngeal dysphagia Dec-0 7- 2 Kelsey Arriaza. [address] [facility] [place], [address], [place]. tel:[phone] Critical access hospital, [address], [place], [place], [id number], [place] tel:[phone] [place] Alteration in performance of activities of daily living Dec-0 6- 2 Ren Ruelas. [address], [place], [place], [id number], [place]. tel:[phone] Critical access hospital, [address] [facility] [facility], [place], [place], [address], [place] tel:[phone] [place] OV (chief complaint) DM type 2 with diabetic peripheral neuropathyLong term (current) use of insulinLong-term (current) use of injectable non-insulin antidiabetic drugs Dec-0 6- 2 Pedro Luis Crystal. [address] [place], [address], [place]. tel:[phone] Critical access hospital, [address], [place], [place], [id number], [place] tel:[phone] [place] Alteration in performance of activities of daily living Dec-0 2-202 2 Ren Ruelas. [address], [place], [place], [id number], [place]. tel:[phone] Critical access hospital, 1 [facility], [place], [place], [address], [place] tel:[phone] [place] halfway (current) use of insulin 2 No Information Critical access hospital, 1 [facility], [place], [place], [id number], [place] tel:[phone] [place] Encounter for rehabilitation evaluation 0 2 Ren Ruelas. [address], [place], [place], [address], [place]. tel:[phone] Critical access hospital, 1 [facility], [place], [place], [id number], [place] tel:[phone] [place] Dysphagia, unspecifi ed typeFeeding difficultiesEncounter for nutritional assessment 2 Normile Dia. [address] [place], [address], [place]. tel:[phone] Critical access hospital, 1 [facility], [place], [place], [address], [place] tel:[phone] [place] Other chronic pain 2 Uribe Lynette. [address] [place] [address], [id number], [place]. tel:[phone] Critical access hospital, [address] [facility] [address] [facility], [place], [place], [address], [place] tel:[phone] [place] PHV (chief complaint) Bilateral shoulder pain, unspecified chronicity 2 Pedro Luis Crystal. [address] [place], [address], [place]. tel:[phone] Critical access hospital, [facility] [address], [place], [place], [id number], [place] tel:[phone] [place] Other chronic pain 2 Baldemar Landrum. [address] [place], [address], [place]. tel:[phone] Critical access hospital, [address], [place], [place], [address], [place] tel:[phone] [place] Difficulty in walkin g, not elsewhere classifiedOther chronic pain 2 Uribe Lynette. [address], [place], [address], [place]. tel:[phone] Critical access hospital, [address], [place], [place], [id number], [place] tel:[phone] [place] No Information 2 No Information Critical access hospital, [address], [place], [place], [address], [place] tel:[phone] [place] Difficulty in walkin g, not elsewhere classifiedOther chronic pain 2 Uribe Lynette. [address], [place], [address], [place]. tel:[phone] Critical access hospital, [address] [facility] [facility], [place], [place], [address], [place] tel:[phone] [place] Muscle weakness (generalized) 2 Ren Ruelas. [address], [place], [place], [address], [place]. tel:[phone] Critical access hospital, [address], [place], [place], [address], [place] tel:[phone] [place] Difficulty in walkin g, not elsewhere classifiedOther chronic painMuscle weakness (generalized) 2 Uribe Lynette. [address], [place], [address], [place]. tel:[phone] Critical access hospital, [address], [place], [place], [address], [place] tel:[phone] [place] Chronic bilateral lo w back pain, unspecified whether sciatica presentOther chronic pain Oct-1 2- 2 Baldemar Landrum. [address] [facility] [place], [address], [place]. tel:[phone] Critical access hospital, [address] [facility] [facility], [place], [place], [address], [place] tel:[phone] [place] Difficulty in walkin g, not elsewhere classifiedOther chronic pain Oct-0 5 2 Uribe Lynette. [address], [place], [address], [place]. tel:[phone] Critical access hospital, [address], [id number], [place] tel:[phone] [place] Other chronic painMuscle weakness (generalized) Oct-0 2 Uribe Lynette. [address], [place], [id number], [place]. tel:[phone] Critical access hospital, [facility] [address], [place], [place], [address], [place] tel:[phone] [place] Chronic bilateral lo w back pain, unspecified whether sciatica presentOther chronic painPain of both shoulder jointsPain in left shoulder Sep-2 2 Ren Jessenia. [address] [place], [address], [place]. tel:[phone] Critical access hospital, [address] [facility] [facility], [place], [place], [id number], [place] tel:[phone] [place] Other chronic pain Sep-2 2 Uribe Lynette. [address], [place], [address], [place]. tel:[phone] Critical access hospital, [address] [facility] [facility], [place], [place], [id number], [place] tel:[phone] [place] Muscle weakness (generalized) Sep-2 2 Ren Jessenia. [address] [place], [address], [place]. tel:[phone] Critical access hospital, [address] [facility] [facility], [place], [place], [address], [place] tel:[phone] [place] Muscle weakness (generalized) Sep-2 2 2 Ren Ruelas. [address] [facility] [place], [id number], [place]. tel:[phone] Critical access hospital, 1 [facility], [place], [place], [address], [place] tel:[phone] [place] Chronic midline low back pain, unspecified whether sciatica presentOther chronic pain Sep-2 0 2 Baldemar Landrum. [address] [place], [place], [address], [place]. tel:[phone] Critical access hospital, 1 [facility], [place], [place], [address], [place] tel:[phone] [place] OV (chief complaint) ÓSCAR (generalized anxiety disorder) Sep-2 0 2 Pedro Luis Crystal. [address] [place], [place], [address], [place]. tel:[phone] Critical access hospital, [address] [facility] [address] [facility], [place], [place], [address], [place] tel:[phone] [place] Chronic midline low back pain, unspecified whether sciatica presentOther chronic pain Sep-1 2 Baldemar Landrum. [address] [place], [place], [address], [place]. tel:[phone] Critical access hospital, [address] [facility] [address] [facility], [place], [place], [address], [place] tel:[phone] [place] Muscle weakness (generalized)Mild cognitive impairment, so stated Sep-1 2 Ren Ruelas. [address] [place], [place], [address], [place]. tel:[phone] Critical access hospital, 1 [facility], [place], [place], [address], [place] tel:[phone] [place] No Information Sep-1 2 Pedro Luis Bonilla. [address] [place], [place], [address], [place]. tel:[phone] Critical access hospital, [address], [place], [place], [address], [place] tel:[phone] [place] No Information Sep-0 2 Pedro Luis Bonilla. [address] [place], [place], [address], [place]. tel:[phone] Critical access hospital, [address], [place], [place], [id number], [place] tel:[phone] [place] Encounter for rehabilitation evaluationChronic bilateral low back pain without sciaticaOther chronic pain Sep-0 2 Baldemar Landrum. [address], [place], [place], [address], [place]. tel:[phone] Critical access hospital, [address] [facility], [place], [place], [id number], [place] tel:[phone] [place] Muscle weakness (generalized) Sep-0 2 Ren Jessenia. [address] [place], [place], [address], [place]. tel:[phone] Critical access hospital, [address] [facility], [place], [place], [address], [place] tel:[phone] [place] No Information Aug-2 2 Pedro Luis Crystal. [address] [place], [address], [place]. tel:[phone] Critical access hospital, [address], [place], [place], [id number], [place] tel:[phone] [place] Encounter for rehabilitation evaluationMuscle weakness (generalized) Aug-2 2 Ren Jessenia. [address], [place], [place], [address], [place]. tel:[phone] Critical access hospital, [address], [place], [place], [address], [place] tel:[phone] [place] Encounter for nutritional assessment 2 Waldemar Delgado. [address] [facility] [address], [place], [address]. tel:[phone] Critical access hospital, [address], [place], [place], [address], [place] tel:[phone] [place] Encounter for rehabilitation evaluation 2 Ren Ruelas. [address] [facility] [address], [place], [place], [address], [place]. tel:[phone] Critical access hospital, [address] [facility] [facility], [place], [place], [address], [place] tel:[phone] [place] Encounter for rehabilitation evaluation 2 Baldemar Landrum. [address] [facility] [place], [address], [place]. tel:[phone] Critical access hospital, [address] [facility] [facility], [place], [place], [address], [place] tel:[phone] [place] Herpesviral vesicula r dermatitis 2 Pedro Luis Crystal. [address], [place], [place], [address], [place]. tel:[phone] Critical access hospital, [address] [facility] [facility], [place], [place], [address], [place] tel:[phone] [place] Encounter for genera l adult medical examination without abnormal findingsEssential (primary) hypertension 2 Pedro Luis Crystal. [address], [place], [place], [address], [place]. tel:[phone] Critical access hospital, [address] [facility] [facility], [place], [place], [address], [place] tel:[phone] [place] PEE (chief complaint) Hypertension, unspecified typeHypercholesteremiaD M type 2 with diabetic peripheral neuropathyLong term (current) use of insulinGastroesophageal reflux disease, unspecified whether esophagitis presentGenital herpes simplex, unspecified siteBipolar 1 disorderHypothyroidism, unspecified typeGAD (generalized anxiety disorder)Schizophrenia, unspecified typeTremor 2 Pedro Luis Crystal. [address] [place], [address], [place]. tel:[phone] [facility], [facility] [address] [place] [address], [id number], [place] tel:[phone] [place] Hypertension, unspecified typeHypercholesteremiaD M type 2 with diabetic peripheral neuropathyHypothyroidis m, unspecified typeHerpesviral infection, unspecified 2 Dorothea Day. [address] [facility] [place], [address], [place]. tel:[phone] Critical access hospital, [facility] [address] [place] [address], [id number], [place] tel:[phone] [place] Medication course changed 2 Dorothea Day. [address] [place], [id number], [place]. tel:[phone] Critical access hospital, [facility] [address] [place] [address], [id number], [place] tel:[phone] [place] No Information 2 No Information Critical access hospital, 1 [facility] [address] [place] [address], [id number], [place] tel:[phone] [place] Intake (chief complaint) Encounter for general adult medical examination without abnormal findings 2 No Information Family History Family Member Type Diagnosis Age At Onset No Information Immunizations Vaccine Date Status Comments Fluzone Quad administered [facility] e: New Immunization Record Payers Payer name Insurance type Covered alliance party ID Socrates lee(s) [facility] 16 [id number] [place] [address] [id number] Social History Type Description Quantity Date Captured Comments Sex Female Smoking Status No Information Chief Complaint And Reason For Visit No Information Plan Of Treatment Date Type Action Status Referral Ordered: Physical Therapy -Therapies/Rehabilitation (related to Right-sided low back pain with right-sided sciatica, unspecified chronicity) ordered Referral Referred To: Physical Therapy Ordered: Referrals: Therapies/Rehabilitation. Physical Therapy. Consult ordered Referral Ordered: Referrals: [facility]- Podiatry Location: [facility] Appointment date/timeframe: 12/29/2022 ordered Referral Ordered: Referrals: Gynecology Appointment date/timeframe: 07/31/2022 ordered Referral Referred To: Bonilla ARCINIEGA [address] [facility] [address] [place], [place], [id number] [phone] Ordered: Referrals: Internal Medicine. Bonilla ARCINIEGA Appointment date/timeframe: 05/13/2023 ordered Referral Referred To: Bonilla ARCINIEGA [address] [place], [id number] [phone] Ordered: Referrals: Cardiology. Bonilla ARCINIEGA Appointment date/timeframe: 10/21/2022 ordered Referral Referred To: Bonilla ARCINIEGA [address] [place], [id number] [phone] Ordered: Referrals: Rheumatology. Bonilla ARCINIEGA Appointment date/timeframe: 04/16/2023 ordered Referral Referred To: Bonilla ARCINIEGA [address] [place], [id number] [phone] Ordered: Referrals: Dentistry. Bonilla ARCINIEGA Appointment date/timeframe: 12/17/2022 ordered Referral Referred To: Bonilla ARCINIEGA [address] [place], [id number] [phone] Ordered: Referrals: Podiatry. Bonilla ARCINIEGA ordered Referral Referred To: Bonilla ARCINIEGA [address] [place] [place], [id number] [phone] Ordered: Referrals: Gastroenterology. Bonilla ARCINIEGA Appointment date/timeframe: 04/09/2023 ordered Referral Referred To: Bonilla ARCINIEGA [address] [place], [id number] [phone] Ordered: Referrals: [employer]. Bonilla ARCINIEGA ordered Referral Ordered: Referrals: Gynecology. Consult Appointment date/timeframe: 04/30/2022 ordered Future Order: Radiology Order Hi p X-ray; Unilateral, with Pelvis X-ray (2-3 views) ([id number]), Ordered on: Ordered Future Order: Radiology Order TT E Combined, 2D image, spectral Doppler, color flow image ([id number]), Ordered on: Ordered Future Order: Lab Order QUANTIFE KARLEY(R)-TB GOLD PLUS, 1 TUBE ([id number]), Ordered on: Ordered History Of Present Illness [...] good weekend per calls kindly placed by application technical designer nursing. Ppt noted to be doing well, [...] available resources.Ppt seen on request of social insurance specialist who was concerned ppt may be having a shiraz episode. Ppt was roomed and provider was notified at 1:45pm. Upon entering, ppt was speaking with social insurance specialist. Translation was kindly provided by medical interpreter on site. This provider checked with ppt, [...] denies SI/HIVM left with ppts prescriber at [facility]. Recommended that ppt come back to [...] utilizedSees counseling every thursdayClonazepam, Haldol, Depakote, trazodone [id number] 7.0% -> 7.9 this fall currently using [...] being seen in clinic todayCarries dx of O1GHBzselrpuj treated with Humalog SSI and Lantus She [...] age in NAD nontoxic appearingLUNGS ctabHEART rrr (+)h5c7JGQ soft NTEXT no edema soft and NT PHV BESSIE FOREMAN PHVHPIPPt seen in clinic today for PHVShe was seen in the emergency dept No records available prior to visitIt appears she was seen at [place] [facility] for pain yesterday Pain is in [...] intact and equal bilaterally. OV BESSIEMILA JANSEN ELIZAVILLE [place] FOREMAN OVHPIIsha translates She is seen in clinic today Ppt with hx of Bipolar, ÓSCAR, SchizophreniaHistorically rx by psychiatrist in [place] Currently klonopin, Depakote, Haldol, trazodoneShe is a patient at [facility] recently moved into her own apartment She reports she likes it She was reported as having increased anxiety yesterdayLiliy translates Ppt reports she feels better today vs yesterday Yesterday she had palpitations None since thenThese happen from ovda-yl-rmgzVITALS HR - 8202 - 96RR - 18BP - 142/80ROSno N V F C CP SOBno ABD PAIN diarrheano cough or difficulty swallowingno rashno palpitations todayPEFemale appearing her ageSpeaks Kittitian translated by [place] HORNDMood stableAffect mildly distrustingSpeaks fluidly Answers are appropriateHEART RRR (+)h8q7Zxngp CTABExt with trace pedal edema bilaterallyNontoxic appearing LABSDPA - 50.7 TSH - 1.94 PEE HPI_62 ___ year old ___female__Lives in studio apartment in [place] with sisterMedications reviewedDiagnoses reviewed Hospitalizations - no significant BIPOLAR/SCHIZOPHRENIA/ÓSCAR counseling/therapy once a weekrx by psychiatrist in [place] hasn't met with a prescriber heremodd affect stable no symptoms nowHLDReports she was on a medication but her doctor took it awayThey "never gave it back Would be agreeable to starting againTHYROIDLast labs were normal so her PCP took it awayCurrently her labs are normalShe does not want to restart unless she has haW9TSKidntd 48u SC QAM LantusShe reports no hospitalizations 2nd to J1FYJyiup opto referral and podiatry referralDenies any wounds [...] apparently last year. She was residing in [place]. She had a number of hospitalizations and there was a tentative plan to place her in long-term care however, her niece and sister intervened and brought her to [place].The patient initially lived with her niece however that did not quite taylor out and she is now living in a studio apartment in [place] with her Sister Nicky. There are pending [...] not started or been finalized, per the niece.[facility] physicians currently: Primary CARE: [phone]:Dr. Torito O[place]Down[place] [facility] [phone]:[facility] Centervernon HarperYlxmb[address] [phone] as psychiatrist however, is PhD psychologist, I am not sure who is prescribing psychiatric medicationsTimi Ibrahim, PhDLifePoint [phone]: Mary Jalloh/[phone]:Dr. Rajendra contrerasEmerson Hospital bdvskvzmqiftl52 [facility] , [place]. [phone]:Jaz [address][phone] listedMedications listedPharmacy listedPast medical history and past surgical history listed, apparently had labial cyst or the like in the past and it is recurrent1 of the hospitalizations in [place] has dementia listed as a contributory diagnosis, I am unclear if this is correctRecent hospitalizations:828/-05/23/21: [place] [facility], seemingly psychiatric10/09/21-10/16/21:[facility] health-danger to self, schizophrenia, dementia10/18/21-11/13/21: [place] [facility], lactic acidosis, flank pain, shortness of breath, seemingly followed by a psychiatric admission12/02/21-12/17/21 [facility]:Delusions/hallucinations/disorientationPa risa uses a 4 wheeled walker. [...] appears to be at baseline. Noted that [facility] Counseling reduced her clonazepam to day, discontinued haloperidol and started amitriptyline. Discussion with SW after meeting, noting that the primary summer child caregiver (cyndi) would like to stop the amitriptyline, given concern for changes in altered mental status.This provider recommended to halve for 7 days and then discontinue. This was relayed by social insurance specialist.Safety questions were completed with ppt, denying any SI/HI, notes her depression/anxiety is stable. Feels safe to go home and to follow up on Thursday Related to Bipolar 1 disorder debrox in SE program p4zxk-vndr as needed canal still patent - ppt [...] Related to Gastroesophageal reflux disease without esophagitis levothyoroxine stopp ed in sep 11 neice reported it was dcd by specialisttrend TSH T4 today and re-eval as needed Related to Hypothyroidism, unspecified type trulicity 0.75mg Qweek Related t o Long-term current use of injectable noninsulin antidiabetic medication lantus and humalog see T2DM Rela quentin to halfway current use of insulin truliticty addedcont inues with humalog and basal insulinself dcd CGM - using POCs at tndw132 fasting this [facility] referrals to opto and poda1c and labs [...] unspecified type mood affect stablefo llowed by [facility] Counselingcont haldol, depakote and prn klonopineval ongoing Related to Schizophrenia, unspecified type cont [facility] and mood at baseline cont current medication regimen (see Bipolar)eval ongoing Related to ÓSCAR (generalized anxiety disorder) mood affect stablefo llowed by [facility] CounselingEKG this week forp Qtc cont [...] and humalog see T2DM Rela quentin to halfway (current) use of insulin a1C 7.0% -> [...] NADpt will have appt made today at [facility] by dexter is agreeable to [...] questions or concerns regarding psych dxfollowed by [facility] Counselingmsg left for info on upcoming appt and name of prescriberEKG pending tomorrow for Haldol use and baseline QTcdepakote lvl wnl @ 50.4cont haldol, depakote and prn klonopineval ongoing Related to ÓSCAR (generalized anxiety disorder) mood affect stablept has no questions or concerns regarding psych dxfollowed by [facility] Counselingmsg left for info on upcoming appt and name of prescriberEKG pending tomorrow for Haldol use and baseline QTcdepakote lvl wnl @ 50.4cont haldol, depakote and prn klonopineval ongoing Related to Schizophrenia, unspecified type mood affect stablept has no questions or concerns regarding psych dxfollowed by [facility] Counselingmsg left for info on upcoming appt and name of prescriberEKG pending tomorrow for Haldol use and baseline QTcdepakote lvl wnl @ 50.4cont haldol, depakote and prn klonopineval ongoing Related to Bipolar 1 disorder chronic dxfollowed b y GYNtakes antiviral for flare upsno pain or lesions at this timeno questions or concernsre-eval as neededfollowup SALES ENABLEMENT SPECIALIST consult summary as indicated Related to Genital herpes simplex, unspecified site Aug-11-2022 no symptomsabd exam benigntaking PPI for GI ppx with good effectre-eval as needed Related to Gastroesophageal reflux disease, unspecified whether esophagitis present 04/25/22a1C 7.0%BUN/Cr -- 0.88/74currently using lantus 48u SC QDwill trend CMP and n2aHugmo as needed for hypoglycemiafoot exam with decrease in monofilament examotherwise foot exam wnlwill consult podiatry, optometry eval ongoing Related to DM type 2 with diabetic peripheral neuropathy 04/25/22a1C 7.0%BUN/Cr -- 0.88/74currently using lantus 48u SC QDwill trend CMP and z1yGzkcp as needed for hypoglycemiafoot exam with decrease in monofilament examotherwise foot exam wnlwill consult podiatry, optometry eval ongoing 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 Bessie will continue to live in the community environment with support from [facility] and family for 6 months. 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 Patient Goal Continued
--- OUTSIDE RECORDS SUMMARY | 2025-01-27 10:37 | XMS_ITS | Continuity of Care Document ---
Author Organization [employer], [facility] Address [address] [place] [address] Phone Care Team Providers Care Manager Transportation Name Role Phone Gerard Valdes CNP Unavailable [...] 67, 70 and 82may occur.Performed at [facility] [id number] [facility] [id number] Panel Description: Microscop ic observation [Identifier] in Cervix by Cyto stain.thin prep Final PAP, THIN PREP WITH IMAGING 2019 12:52:1 1 SEE COMMENT Final Final Cytologic Interpretation ThinPrep Pap Test (Cervical): Satisfactory for evaluation. NEGATIVE FOR INTRAEPITHELIAL LESION OR MALIGNANCY. The cytologic changes of atrophy are noted. [facility]/11/20/2019Interpret ation performed at [facility] [address], License number: [id number]. Electronically Signed Out By JASON Steele(ASCP) Date of Last Menstrual Period: (None Given) Other Clinical Conditions:Z11.51 Screening for HPVZ12.4 Screening for malignant neoplasm of cervixPostmenopausal Source of Specimen ThinPrep Pap Test (Cervical) Thin Prep Pap (COMMERCIAL CREDIT PORTFOLIO MANAGER) Fee Code(s): G0145 The Pap test is a screening test with an inherent, but low,probability of error. The Pap test is primarily effective for thediagnosis and prevention of squamous cell carcinoma. Regular screeningis critical for prevention. ThinPrep liquid-based slides, which meet the Clinical Advisor criteria forautomated screening, have been screened by the [place] [employer] [facility](as of 06/07/07) along with an additional manual rescreening by acytotechnologist and, if indicated, by a pathologist. [facility]ology [employer] [address] [place] [address] [id number] No. [id number] CAP Accreditation No. [id number] Director: Randal Briones M.D. Advance Directives Directive Yes / No Effective Date File Name No Information Encounters Encounter Description Practice Location Reason(s) For Visit Diagnoses Date Provider Providers Copied on Encounter PREV VISIT, EST, AGE 40-64 [employer], [address] [place] [address], [id number] , [place] tel:[phone] [employer] annual exam (chief complaint) Encntr for fiber machine tender exam (general) (routine) w/o abn findingsBreast cancer screeningCervical cancer screeningScreening for HPV (human papillomavirus)Langua ge barrier affecting health care 0 Keisha Gee. [address] [place] [address], [id number] , [place]. tel: [phone] Referring Provider: Gutierrez Collins, [address] [place] [address], [address] . tel:[phone] PREV VISIT, EST, AGE 40-64 [facility] [address] [place] [address], [id number] , [place] tel: [phone] [facility] annual exam (chief complaint) Routine fiber machine tender examinationScreening for HPV (human papillomavirus) 5 Geno Ugarte. [address] [place] [address] [place], [place], [id number] . tel: [phone] Referring Provider: Torito Moon, [address] [place] [address] [place], [address] . tel:[phone] OFFICE/OUTPA TIENT VISIT, EST [facility], [address] [place] [address], [id number] , [place] tel: [phone] [facility] PAP repeat (chief complaint) Symptom associated with female genital organsPap smear cannot exclude high grade squamous intraepithelial lesion (ASC-H) 4 Kwadwo Whitley. [address] [place] [address], [id number] . tel: [phone] Referring Provider: Gutierrez Collins, [address] [place] [address], [id number] . tel:[phone] PREV VISIT, EST, AGE 40-64 [facility], [address] [place] [address], [id number] , [place] tel: [phone] [facility] annual visit (chief complaint) Moderate dysplasia of cervix (DESI II)Gynecological Examination 3 Kwadwo Whitley. [address] [place] [address], [id number] . tel: [phone] Referring Provider: Gutierrez Burkett MD W, [address] [place] [address], [address] . tel:[phone] OFFICE/OUTPA TIENT VISIT, [facility] [employer] [facility], [address] [place] [address], [id number] , [place] tel: [phone] [employer] repeat pap (chief complaint) DYSPLASIA OF CERVIX NOSDYSPLASIA OF CERVIX NOS 3 Kwadwo Whitley. [address] [place] [address], [id number] . tel: [phone] Referring Provider: Gutierrez Burkett MD W, [address] [place] [address], [address] . tel:[phone] [facility], [address] [place] [address], [id number] , [place] tel: [phone] [employer] No Information 3 Kwadwo Whitley. [address] [place] [address], [id number] . tel: [phone] OFFICE/OUTPA TIENT VISIT, [facility] [employer], [address] [place] [address], [id number] , [place] tel: [phone] [employer] No Information 3 Kwadwo Whitley. [address] [place] [address], [id number] . tel: [phone] Referring Provider: Gutierrez Collins, [address] [place] [address], [address] . tel:[phone] OFFICE/OUTPA TIENT VISIT, [facility], [address] [place] [address], [id number] , [place] tel: [phone] [employer] No Information 2 Kwadwo Whitley. [address] [place] [address], [id number] . tel: [phone] Referring Provider: Gutierrez Burkett MD W, [address] [place] [address], [place], [address] . tel:[phone] OFFICE/OUTPA TIENT VISIT, [facility], [address] [place], [place] [address], [place], [place], [id number] , [place] tel: [phone] [employer] No Information 2 Kwadwo Whitley. [address] [place] [address], [place], [place], [id number] . tel: [phone] Referring Provider: Gutierrez Burkett MD W, [address] [place], [place] [address], [place], [address] . tel:[phone] [employer], [address] [place], [place] [address], [place], [place], [id number] , [place] tel: [phone] [employer] No Information 2 Kwadwo Whitley. [address] [place] [address], [id number] . tel: [phone] Referring Provider: Gutierrez Burkett MD W, [address] [place], [place] [address] [employer], [address] . tel:[phone] OFFICE/OUTPA TIENT VISIT, [facility], [address] [place], [place] [address], [place], [place], [id number] , [place] tel: [phone] [employer] No Information 2 Kwadwo Whitley. [address] [place] [address], [id number] . tel: [phone] Referring Provider: Gutierrez Collins, [address] [place], [address] . tel:[phone] Family History Family Member Type Diagnosis Age At Onset No Information Immunizations Vaccine Date Status Comments Flu (split) (3 yrs or older) administered Note: Invalid documented admin date was . ; Source: Other Provider Payers Payer name Insurance type Covered libertarian ID Socrates Galarza (s) [id number] Social History Type Description Quantity Date Captured [...] information: ptreturns after 5 years, very limited Irish-accompanied by her , also limited Irish. h/o ASC_H pap with neg biopsies, neg pap in 2012, 2013 and 2014. will repeat today. unsure of last mammogram. denies any PMB or fiber machine tender concerns. Reason For Referral Reason For Referral No Information Plan Of Treatment Date Type Action Status Goal Mammogram (Scree natalya); Bilateral. Due on due Goal Colonoscopy Scre en. Due on due Future Order: Radiology Order Ma mmogram, Screening ([id number]), Ordered on: Ordered Future Order: Lab Order PAP (TP) - IMAGE GUIDED ([id number]), Ordered on: Ordered History Of Present Illness [...] pt returns after 5 years, very limited Irish-accompanied by her , also limited Irish. h/o ASC_H pap with neg biopsies, neg pap in 2012, 2013 and 2014. will repeat today. unsure of last mammogram. denies any PMB or fiber machine tender concerns. annual exam Currently pregna nt: no. [...] return to once yearly. Related to Routine fiber machine tender examination As Above Related to Deirdre hoang for HPV (human papillomavirus) Increase Activity, M onthly Breast Exams at home Related to Routine fiber machine tender examination Rtn in 6 mos for annual Related to Pap smear cannot exclude high grade squamous intraepithelial lesion (ASC-H) pt to return in April for stef lMilena Related to DYSPLASIA OF CERVIX NOS Assessments Type Assessment Date assessment Encntr for fiber machine tender exam (general) (r outine) w/o abn findings [...] Mental Status Date Cognitive Assessment Orientation - House ed to time, place, person, situation. Patient Care Teams Name Effective Dates (start - stop) Status Members No Information
--- OUTSIDE RECORDS SUMMARY | 2025-01-27 10:37 | XMS_ITS | Data Portability ---
Author Organization [facility], autoContract Address [address] [place] [address] Assessment No assessment recorded. Plan of Treatment Reminders Order Date Submit Date Provider Last Modified By Organization Details Last Modified Time Details Appointments None recorded. Lab None recorded. Referral None recorded. Procedures None recorded. Surgeries None recorded. Imaging None recorded. Medication Orders ammonium lactate 12 % lotion [address] [facility] ([place], [place])/Pharmacy #[id number], [address] [facility], [place], [address], 15:37:21 Patient TargetsNo targets recorded. Patient Instructions Encounter Date Encounter Id Patient Instructions Last Modified By Organization Details Last Modified Time 10/18/2020 [id number] 1.) Office visit with DM foot exam [...] regular follow up evaluation by PCP and/or speed winder. 6.) Return 3 months for DM check up and comprehensive foot care, sooner if problems. Not available 10/18/2020 12:32:14 01/28/2021 [id number] 1.) Office visit with DM foot exam [...] regular follow up evaluation by PCP and/or speed winder. 6.) Return 3 months for DM check up and comprehensive foot care, sooner if problems. Not available 01/28/2021 15:01:30 02/18/2021 [id number] Warranty/Receipt New shoe break-in period Wear your [...] PRN basis. Not available 10/18/2021 09:50:05 05/06/2021 [id number] 1.) Office visit with DM foot exam [...] regular follow up evaluation by PCP and/or speed winder. 6.) Return 3 months for DM check up and comprehensive foot care, sooner if problems. Not available 05/07/2021 08:22:47 08/09/2021 [id number] dedo en martillo : instrucciones de cuidado [...] regular follow up evaluation by PCP and/or speed winder. 6.) Return 3 months for DM check up and comprehensive foot care, sooner if problems. I am prescribin. 1 Left and 1 Right - [employer] Medley S325-1 Black, Hook & Loop depth-inlay [...] Address Organization Details Recorded Time Diabetes mellitus 28666468 Active Min Rogers DPM [address] [place], [address], [facility] 5 12:50:43 Disorder o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 mellitus 674920751 Active 2017 Min Rogers DPM [address] [place], [place], [address] [place] [address] 7, [facility] 8 13:27:17 Overweight 907247031 Active 2019 Min Rogers DPM [address] [place], [address], [facility] 0 17:15:07 Uncontrolle d type 2 diabetes mellitus 348127009 Completed 01/21/2018 Min Rogers DPM [address] [place], [place], [address] [place] [address] 7, [facility] 8 13:27:22 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 110253292 Active Min Rogers DPM [address], [place], [address] [place] [address] 7, [facility] 5 12:39:04 Ingrowing nail 898036187 Active Min Rogers DPM [address] [place], [address], [facility] 5 12:39:04 Edema 838916371 Active Min Rogers DPM [address] [place], [address], [facility] 5 13:32:56 Peripheral venous insufficien cy 04583405 Active Min Rogers DPM [address] [place], [place], [address] [place] [address] 7, [facility] 5 13:32:56 Pain in limb 92600740 Active Min Rogers DPM [address] [place], [address], [facility] 5 12:39:04 Hammer toe 613886265 Active Min Rogers DPM [address] [place], [address], [facility] 5 12:50:43 Acquired cavus deformity of foot 93168818 Active Min Rogers DPM [address] [place], [address], [facility] 5 12:50:43 Problem Notes None recorded. Procedures Surgical History Date Name Laterality Status Provider Name and Address Organization Details Recorded Time 1 Nail Debridement completed Min Rogers DPM [address] [place], [address], [facility] 08/09/2021 15:47:04 1 Nail Debridement completed Min Rogers DPM [address] [place], [address], [facility] 05/07/2021 08:22:47 1 Nail Debridement completed Min Rogers DPM [address] [place], [address], [facility] 01/28/2021 15:00:03 1 Nail Debridement completed Min Rogers DPM [address] [place], [address], [facility] 10/18/2020 12:32:14 0 Nail Debridement completed Min Rogers DPM [address] [place], [address], [facility] 07/16/2020 12:25:52 0 Nail Debridement completed Min Rogers DPM [address] [place], [address], [facility] 04/12/2020 11:12:51 0 Nail Debridement completed Min Rogers DPM [address] [place], [address], [facility] 01/26/2020 15:11:05 0 Nail Debridement completed Min Rgoers DPM [address] [place], [address], [facility] 10/31/2019 09:07:59 9 Nail Debridement completed Min Rogers DPM [address] [place], [address], [facility] 08/26/2019 16:10:32 9 Cortisone Injection completed Min Rogers DPM [address] [place], [address], [facility] 06/09/2019 08:55:55 9 Nail Debridement completed Min Rogers DPM [address] [place], [address], [facility] - [facility] 06/09/2019 09:15:28 9 Nail Debridement completed Min Rogers DPM [address] [place], [address], [facility] - [facility] 03/10/2019 13:36:34 9 Nail Debridement completed Min Rogers DPM [address] [place], [address], [facility] 12/28/2018 09:42:50 9 Nail Debridement completed Min Rogers DPM [address] [place], [address], [facility] 10/19/2018 13:15:54 8 Cortisone Injection completed Min Rogers DPM [address] [place], [address], [facility] 07/29/2018 11:08:29 8 Nail Debridement completed Min Rogers DPM [address] [facility], [place], [address], [facility] - [facility] 07/29/2018 13:09:03 8 Nail Debridement completed Min Rogers DPM [address] [facility], [place], [address], [facility] - [facility] 05/13/2018 10:01:58 8 Nail Debridement completed Min Rogers DPM [address] [place], [address], [facility] 03/04/2018 09:31:43 8 Nail Debridement completed Min Rogers DPM [address] [place], [address], [facility] 11/26/2017 14:37:36 5 Nail Debridement completed Min Rogers DPM [address] [place], [address], [facility] 02/01/2015 12:39:04 5 Nail Debridement completed Min Rogers DPM [address] [facility], [place], [address], [facility] 10/31/2014 13:32:39 4 Nail Debridement completed Min Rogers DPM [address] [place], [address], [facility] 08/03/2014 10:36:36 4 Nail Debridement completed Min Rogers DPM [address] [place], [address], [facility] 05/11/2014 10:36:07 4 Nail Debridement completed Min Rogers DPM [address] [place], [address], [facility] 02/20/2014 09:20:10 4 Nail Debridement completed Gregor Mckeon [facility] 12/07/2013 17:55:59 3 Nail Debridement completed [facility] 08/15/2013 18:15:52 3 Nail Debridement completed Min Rogers DPM [address] [place], [address], [place] [facility] 05/08/2013 13:57:00 3 Nail Debridement completed Min Rogers DPM [address] [place], [address], [facility] 02/03/2013 13:55:58 3 Nail Debridement completed Min Rogers DPM [address] [place], [address], [place] [facility] 11/15/2012 12:39:57 Imaging Results None recorded. Procedure Notes None recorded. Medical Equipment None Reported. Allergies Allergen ID Allergen Name Allergen Category Reaction Reaction Severity Criticality Documentation Date Start Date Code Code System Note Provider Name and Address Organization Details Recorded Time 921 Product containin g penicilli n (product) medicatio n Not available Not available Not available 10/14/2012 28204 8001 SNOMED [facility] 3 15:13:05 Medications Name [...] Available Not Available No t Available [employer] Lite kit active Not Available Not Available [...] 157.48 cm Min Rogers, SEDRICKM [address] [place], [address], [facility] [employer] 10/18/2020 11:14:48 Date Recorded Body height Provider Name an d Address Organization Details Last Updated DateTime 01/28/2021 157.48 cm Min Rogers, DPM [address] [place], [address], [place] [facility] 01/28/2021 14:38:33 Date Recorded Body height Provider Name an d Address Organization Details Last Updated DateTime 05/06/2021 157.48 cm Min Rogers, DPM [address] [place], [address], [facility] 05/06/2021 16:15:17 Date Recorded Body height Provider Name an d Address Organization Details Last Updated DateTime 08/09/2021 157.48 cm Min Rogers, DPM [address] [place], [address], [place] [facility] 08/09/2021 15:31:11 Date Recorded Body height Provider Name an d Address Organization Details Last Updated DateTime 02/18/2021 157.48 cm Min Rogers, DPM [address] [place], [address], [facility] 10/18/2021 09:42:13 Social History Question Answer Notes LastModified by Organizat ion Details LastModified Time Tobacco Smoking Status Never Smoker Not Available [employer] 07/06/2020 03:15:47 What Is Your Level Of Alcohol Consumption? None [id number] Information not available 07/06/2020 Are You Blind Or Do You Have Difficulty Seeing? No [id number] Information not available 07/06/2020 Are You Deaf Or Do You Have Serious Difficulty Hearing? No [id number] Information not available 07/06/2020 Which Illicit Or Recreational Drugs Have You Used? Never [id number] Information not available 07/06/2020 What Is Your Occupation? Disabled - Mental Illness [id number] Information not available 07/06/2020 Marital Status sbsrinivas Informwillo n not available 10/17/2012 What Was The Date Of Your Most Recent Tobacco Screening? 12/28/2018 [id number] Information not available 07/06/2020 Sex: Unknown Functional Status Question Answer Note LastModified by Organization D etails LastModified Time Do you have difficulty walking or climbing stairs? No [id number] Information not available 07/06/2020 Do you have difficulty doing errands alone? No [id number] Information not available 07/06/2020 Do you have difficulty dressing or bathing? No [id number] Information not available 07/06/2020 Mental Status Question Answer Note LastModified by Organization D etails LastModified Time Do you have difficulty concentrating, remembering or making decisions? No [id number] Information no t available 07/06/2020 Family History [...] Code Diagnosis Note [id number] Min Rogers DPM [facility] [address] [place] [address] 10/14/2012 15:09:24 10/18/2012 09:39:25 3202 Min Rogers DPM [facility] [place] [address] 11/11/2012 13:38:31 11/15/2012 16:52:19 7753 Min Rogers [facility] [address] [place] [address] 02/03/2013 13:22:42 02/03/2013 14:21:55 9796 Min Rogers [facility] [address] [place] [address] 05/06/2013 13:22:19 05/06/2013 13:57:43 37056 Min Rogers [facility] [address] [place] [address] 08/15/2013 10:36:55 08/15/2013 11:25:59 Uncontrolled type 2 diabetes mellitus 276063323 Ingrowing nail 230283679 Pain in limb 17924565 Onychomyco sis due to dermatophyte 541668311 Peripheral venous insufficiency 84447403 Edema 010523091 Acquired c avus deformity of foot 06069485 Hammer toe 243425758 16160 [facility] [address] [place] [address] 10/05/2013 11:52:21 10/05/2013 12:01:29 Uncontrolled type 2 diabetes mellitus 320227617 Hammer toe 647180878 26231 Min Rogers [facility] [address] [address] 12/07/2013 12:16:56 12/07/2013 12:42:09 Uncontrolled type 2 diabetes mellitus 042251265 Hammer toe 293042085 Onychomyco sis due to dermatophyte 263105936 Pain in limb 56628743 Ingrowing nail 550310269 75115 Min Rogers [facility] [address] [place] [address] 02/16/2014 09:54:34 02/16/2014 10:32:43 Onychomycosis due to dermatophyte 613721594 Ingrowing nail 348976071 Pain in limb 51747983 Diabetes mellitus 23327691 Peripheral venous insufficiency 68460554 Edema 695900726 Acquired c avus deformity of foot 70428399 Hammer toe 855571130 25899 Min Rogers DPM [facility] [address] [address] 05/11/2014 10:23:52 05/11/2014 10:24:21 Onychomycosis due to dermatophyte 149548339 Ingrowing nail 657932609 Pain in limb 99254716 Diabetes mellitus 50694802 Peripheral venous insufficiency 38995886 Edema 016490859 Acquired c avus deformity of foot 66250260 Hammer toe 382596603 08924 Min Rogers DPM [facility] [address] [address] 08/03/2014 09:27:24 08/03/2014 10:21:02 Onychomycosis due to dermatophyte 481441139 Ingrowing nail 510897173 Pain in limb 08814809 Diabetes mellitus 22960577 Peripheral venous insufficiency 99309051 Edema 725400273 Acquired c avus deformity of foot 38424149 Hammer toe 330939379 59721 Min Rogers DPM [facility] [address] [address] 10/27/2014 09:16:37 10/27/2014 10:30:34 Onychomycosis due to dermatophyte 338859777 Ingrowing nail 041165909 Pain in limb 24209671 Diabetes mellitus 60897825 Peripheral venous insufficiency 26466247 Edema 028286896 Acquired c avus deformity of foot 74466453 Hammer toe 549063603 94206 Min Rogers DPM [facility] [address] [address] 11/02/2014 13:10:07 11/02/2014 13:21:56 Hammer toe 574836754 Acquired c avus deformity of foot 99119208 Uncontroll ed type 2 diabetes mellitus 411739678 35345 Min Rogers DPM [facility] [address] [address] 11/13/2014 12:15:16 11/13/2014 12:33:38 Acquired cavus deformity of foot 85997201 Diabetes mellitus 66728988 Hammer toe 700540616 58708 Min Rogers DPM [facility] [address] [place] [address] 01/18/2015 13:54:36 01/18/2015 14:06:52 Onychomycosis due to dermatophyte 161804578 Ingrowing nail 146104660 Pain in limb 63240838 Uncontroll ed type 2 diabetes mellitus 098647894 01394 Min Rogers DPM [facility] [address] [place] [address] 11/26/2017 10:25:50 11/26/2017 11:21:38 Overweight 548316336 E66.3 Ingrowing nail 070814832 L60.0 Pain in toe 489251481 M7 9.676 Disorder o 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 mellitus 524702264 E11.49 Hammer toe 118421120 M20 .41 M20.42 Onychomycosis 032025876 B35.1 18467 Min Rogers DPM [facility] [address] [place] [address] 01/21/2018 13:25:31 01/21/2018 13:28:43 Disorder o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 mellitus 510479643 E11.49 Hammer toe 057176538 M20 .41 M20.42 51132 Min Rogers DPM [facility] [address] [place] [address] 02/17/2018 11:45:01 02/17/2018 12:02:11 Disorder o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 mellitus 792635373 E11.49 Hammer toe 322687121 M20 .41 M20.42 47258 Min Rogers DPM [facility] [address] [place] [address] 03/04/2018 08:59:26 03/04/2018 09:00:37 Onychomycosis due to dermatophyte 930616746 B35.1 Ingrowing nail 121075260 L60.0 Pain in limb 94623159 M7 9.609 Uncontroll ed type 2 diabetes mellitus 675122294 E11.65 57328 Min Rogers DPM [facility] [address] [place] [address] 05/13/2018 09:31:40 05/13/2018 09:56:12 Ingrowing nail 450142694 L60.0 Pain in limb 97620093 M7 9.609 Uncontroll ed type 2 diabetes mellitus 114548338 E11.65 Onychomycosis 235813479 B35.1 Obese 945290946 E66.9 96737 Min Rogers DPM [facility] [address] [place] [address] 07/29/2018 11:05:10 07/29/2018 11:15:42 Arthritis of right subtalar joint 1674299229 1782302 M13.871 Pain of ri ght ankle joint 0148462567 2517740 M25.571 Onychomycosis 583330599 B35.1 Ingrowing nail 961569131 L60.0 Uncontroll ed type 2 diabetes mellitus 861044785 E11.65 Obese 317653418 E66.9 Plantar fasciitis 724711 003 M72.2 Pain in toe 291883780 M7 9.676 08903 Min Rogers DPM [facility] [address] [place] [address] 08/02/2018 09:02:54 08/02/2018 09:39:55 Foot pain 81538176 M79.671 Arthritis of right subtalar joint 0611354343 4957645 M13.871 Plantar fasciitis 143902 003 M72.2 Onychomycosis 999421355 B35.1 Ingrowing nail 541079779 L60.0 Pain in toe 385832363 M7 9.676 Uncontroll ed type 2 diabetes mellitus 493117898 E11.65 Obese 276625192 E66.9 66424 Min Rogers DPM [facility] [address] [place] [address] 08/10/2018 11:41:12 08/10/2018 12:40:42 Plantar fasciitis 712611151 M72.2 Foot pain 16553890 M79.6 71 M79.672 39238 Min Rogers DPM [facility] [address] [place] [address] 10/19/2018 11:14:44 10/19/2018 13:16:01 Onychomycosis 625361907 B35.1 Ingrowing nail 758757643 L60.0 Pain in limb 70364965 M7 9.609 Uncontroll ed type 2 diabetes mellitus 254126806 E11.65 Obese 940601961 E66.9 08606 Min Rogers DPM [facility] [address] [place] [address] 12/28/2018 08:27:54 12/28/2018 09:22:02 Onychomycosis 105109467 B35.1 Ingrowing nail 009629316 L60.0 Pain in limb 24863813 M7 9.609 Uncontroll ed type 2 diabetes mellitus 581546486 E11.65 Obese 919806230 E66.9 13824 Min Rogers DPM [facility] [address] [place] [address] 03/10/2019 11:30:47 03/10/2019 12:35:36 Onychomycosis 379555995 B35.1 Ingrowing nail 367195253 L60.0 Pain in limb 89362184 M7 9.609 Uncontroll ed type 2 diabetes mellitus 817862956 E11.65 Obese 262713966 E66.9 80058 Min Rogers DPM [facility] [address] [place] [address] 06/09/2019 08:31:13 06/09/2019 09:28:11 Onychomycosis 678681589 B35.1 Ingrowing nail 169954249 L60.0 Pain in limb 99702760 M7 9.609 Uncontroll ed type 2 diabetes mellitus 074420512 E11.65 Obese 800701183 E66.9 Osteoarthr itis of subtalar joint 331102232 M19.072 Foot pain 59774166 M79.6 72 09655 Min Rogers DPM [facility] [address] [place] [address] 08/26/2019 15:57:18 08/26/2019 16:06:24 Overweight 240896698 E66.3 Onychomycosis 202368996 B35.1 Ingrowing nail 052214358 L60.0 Uncontroll ed type 2 diabetes mellitus 295471687 E11.65 Pain in toe 651937624 M7 9.676 41277 SEDRICK Villavicencio [facility] [address] [place] [address] 10/31/2019 08:53:06 10/31/2019 09:32:13 Onychomycosis 396794474 B35.1 Ingrowing nail 459670342 L60.0 Pain in toe 894207454 M7 9.676 Overweight 055265196 E66 .3 Disorder o 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 mellitus 805970207 E11.49 Hammer toe 720273333 M20 .41 M20.42 02953 SEDRICK Villavicencio [facility] [address] [place] [address] 12/19/2019 17:27:14 12/19/2019 17:36:09 Disorder o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 mellitus 433058209 E11.49 Hammer toe 938648130 M20 .41 M20.42 34186 Min Rogers DPM [facility] [address] [place] [address] 01/26/2020 13:22:34 01/26/2020 15:00:52 Onychomycosis 742169476 B35.1 Ingrowing nail 698840831 L60.0 Pain in toe 997663450 M7 9.676 Disorder o 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 mellitus 198682932 E11.49 Hammer toe 799693038 M20 .41 M20.42 Overweight 520144381 E66 .3 11063 Min Rogers DPM [facility] [address] [place] [address] 7 04/12/2020 11:04:10 04/12/2020 11:16:03 Onychomycosis 273675346 B35.1 Ingrowing nail 395118172 L60.0 Pain in toe 397580826 M7 9.676 Disorder o 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 mellitus 861922729 E11.49 Hammer toe 721237117 M20 .41 M20.42 Overweight 791049178 E66 .3 78443 SEDRICK Villavicencio [facility] [address] [place] [address] 07/16/2020 12:08:06 07/16/2020 12:20:12 Onychomycosis 887376814 B35.1 Ingrowing nail 480049290 L60.0 Pain in toe 789925048 M7 9.676 Disorder o 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 mellitus 635602601 E11.49 Hammer toe 536992832 M20 .41 M20.42 Overweight 867475397 E66 .3 83038 Min Rogers DPM [facility] [address] [place] [address] 7 10/18/2020 11:06:15 10/18/2020 11:53:04 Onychomycosis 481623837 B35.1 Ingrowing nail 707016897 L60.0 Pain in toe 730173203 M7 9.676 Disorder o 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 mellitus 102855702 E11.49 Hammer toe 110736045 M20 .41 M20.42 Overweight 503774993 E66 .3 09500 SEDRICK Villavicencio [facility] [address] [place] [address] 01/28/2021 14:36:07 01/28/2021 14:49:01 Onychomycosis 520983146 B35.1 Ingrowing nail 404006844 L60.0 Pain in toe 288294726 M7 9.676 Disorder o 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 mellitus 301899884 E11.49 Obesity 375662804 E66.9 63971 Min Rogers DPM [facility] [address] [place] [address] 7 05/06/2021 16:07:24 05/06/2021 16:26:10 Onychomycosis 831211916 B35.1 Ingrowing nail 460695786 L60.0 Pain in toe 201302358 M7 9.676 Disorder o 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 mellitus 001508657 E11.49 Obesity 753806163 E66.9 21101 Min Rogers DPM [facility] [address] [place] [address] 08/09/2021 15:26:42 08/09/2021 15:31:37 Foot callus 850270545 L84 Onychomycosis 340874601 B35.1 Ingrowing nail 599105881 L60.0 Pain in toe 249228534 M7 9.676 Disorder o 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 mellitus 952677129 E11.49 Obesity 184518063 E66.9 Hammer toe 558269974 M20 .41 M20.42 68701 Min Rogers DPM [facility] [place] [address] [place] [address] 10/18/2021 09:41:46 10/18/2021 09:52:37 Disorder o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 mellitus 234048268 E11.49 Hammer toe 566215324 M20 .41 M20.42 Health Concerns Section Related [...] (MEDICAID REPLACEMENT - HMO) [facility] Bessie Alfonso [id number] Bessie Alfonso 01/28/2021 1 [employer] - DOS PRIOR TO 2022 (MEDICAID REPLACEMENT - HMO) [facility] Bessie Alfonso [id number] Bessie Alfonso 02/18/2021 1 [employer] - [place] PRIOR TO 2022 (MEDICAID REPLACEMENT - HMO) [facility] Bessie Alfonso [id number] Bessie Alfonso 05/06/2021 1 [employer] (MEDICAID) Bessie Alfonso [id number] Bessie Alfonso 08/09/2021 1 [place]) Bessie Alfonso [id number] Bessie Alfonso Notes Date Note Type Note [...] coronavirus COVID-19 disease. Min FragosoSTEPHANIE bruce [address] [place], [address], [facility] 10/18/2020 12:33:21 01/28/2021 text/html [...] (fully vaccinated). Min PachecoMilena Rogers DPM [address] [place], [address], [facility] 01/28/2021 15:02:07 05/06/2021 text/html [...] (fully vaccinated). Min Roberson STEPHANIE Rogers [address] [place], [address], [facility] 05/07/2021 08:23:15 08/09/2021 text/html Bsesie presents f or follow up T2D w/ [...] COVID-19 disease (vaccinated). Min Rogers DPM [address] [place], [address], [facility] 08/19/2021 12:11:02 OBGyn Episode No OBEpisode recorded.
--- OUTSIDE RECORDS SUMMARY | 2025-01-27 10:37 | XMS_ITS | Clinical Summary ---
Author Organization 175 [facility] Address [address] [place] [address] Phone Care Team Providers Care Paver Installer Name Role Phone Evelia Donald MD Primary Care Provider [phone] Allergies Active Allergy Reactions Criticality Noted Date [...] 10/04/2021 Long-term use of high-risk medication 10/04/2021 FDC current use of insulin ([facility] V24, [facility] V28) 10/04/2021 Lactic acidosis 10/04/2021 Right-sided chest wall pain 10/04/2021 Recurrent falls 10/04/2021 Pyelonephritis 10/04/2021 Obesity 10/04/2021 Sarcoidosis 10/04/2021 Schizoaffective disorder, de pressive type with good prognostic features ([facility] V24, [facility] V28) 10/04/2021 Sinusitis 10/04/2021 Encounter for immunization 10/04/2021 Tremor 10/04/2021 Altered mental state 08/17/2021 Abdominal pain 08/17/2021 DM type 2 (diabetes mellitus , type 2) ([facility] V24, [facility] V28) 05/21/2021 Overview (10/04/2021): x 15 years Necrotizing soft tissue infection 05/18/2021 Sacroiliac pain 11/28/2020 Lumbar facet arthropathy 08/29/2020 DDD (degenerative disc disease), lumbosacral Gastritis 09/28/2018 Acute psychosis ([facility] V24, [facility] V28) 04/23 Anxiety 04/23/2015 Impetigo 04/23/2015 Esotropia of left eye 06/04/2011 Rotary nystagmus 06/04/2011 Strabismic amblyopia 06/04/2011 Hyperthyroidism 02/19/2011 Mixed hyperlipidemia 02/19/2011 Primary open-angle glaucoma(365.11) 08/22/2010 Overview (12/20/2021): Replacing diagnoses that were inactivated after the 12/20/21 IMO import Senile nuclear sclerosis 08/22/2010 Encounters Date Type Department Care Team Description 11/16/2024 10:45 AM EST Office Visit Orthopedic Surgery - [address] [address] Zeyad Wallace, DPM Diabetic mononeuropathy simplex ([facility] V24, [facility] V28) (Primary Dx); Tinea unguium; Type II diabetes mellitus with peripheral circulatory disorder ([facility] V24, [facility] V28); Acquired hallux valgus of right [...] Medical History Medical History Date Comments Schizophrenia ([facility] V24, [facility] V28) Diabetes mellitus ([facility] V24, [facility] V28) Disease of thyroid gland Depression Insomnia Anxiety DDD (degenerative disc disease), cervical Psychosis ([facility] V24, [facility] V28) High blood cholesterol level Social History [...] AM EDT Office Visit Orthopedic Surgery - [place] [address] [address] Zeyad Wallace, DPM [address] [address] Health Maintenance Due Date Last Done Comments [...] LAB CHEMISTRY METHOD 10/04/2021 9:58 PM EST [facility] Potassium 3.8 3.6 - 5.1 mmol/L LAB CHEMISTRY METHOD 10/04/2021 9:58 PM EST [facility] Chloride 98 98 - 107 mmol/L LAB CHEMISTRY METHOD 10/04/2021 9:58 PM EST [facility] CO2 25 22 - 32 mmol/L LAB CHEMISTRY METHOD 10/04/2021 9:58 PM EST [facility] Anion Gap 14 6 - 18 LAB CHEMISTRY METHOD 10/04/2021 9:58 PM EST [facility] Glucose 369(H) 70 - 99 mg/dL LAB CHEMISTRY METHOD 10/04/2021 9:58 PM [facility] BUN 21(H) 8 - 20 mg/dL LAB CHEMISTRY METHOD 10/04/2021 9:58 PM [facility] Creatinine 1.08 0.60 - 1.30 mg/dL LAB CHEMISTRY METHOD 10/04/2021 9:58 PM [facility] eGFR 55 mL/min/1. 73m2 LAB CHEMISTRY METHOD 10/04/2021 9:58 PM [facility] BUN/Creatinine Ratio 19.4 12.0 - 20.0 LAB CHEMISTRY METHOD 10/04/2021 9:58 PM [facility] Calcium 9.4 8.9 - 10.3 mg/dL LAB CHEMISTRY METHOD 10/04/2021 9:58 PM [facility] AST (SGOT) 8(L) 15 - 41 unit/L LAB CHEMISTRY METHOD 10/04/2021 9:58 PM [facility] ALT (SGPT) 14 7 - 52 unit/L LAB CHEMISTRY METHOD 10/04/2021 9:58 PM [facility] Alkaline Phosphatase 106(H) 32 - 91 unit/L LAB CHEMISTRY METHOD 10/04/2021 9:58 PM [facility] Total Protein 6.9 6.1 - 7.9 g/dL LAB CHEMISTRY METHOD 10/04/2021 9:58 PM [facility] Albumin 4.2 3.5 - 4.8 g/dL LAB CHEMISTRY METHOD 10/04/2021 9:58 PM [facility] Total Bilirubin 0.4 0.3 - 1.2 mg/dL LAB CHEMISTRY METHOD 10/04/2021 9:58 PM [facility] Blood Venous blood specimen / Unknown Venipuncture / Unknown 10/04/2021 8:28 PM EST 10/04/2021 8:33 PM EST Neeta Bae MD LAB BLOOD ORDERABLES Final Resu lt Performing Organization Address [facility] Co de Phone Number LUIS ENRIQUE [facility] ([facility] [address] [place] [address] * [place] MAMMO DIGITAL SCREENING BILAT (NB) [...] views were obtained. Computer-aided detection utilizing [employer] ([employer])CAD reader has been performed. BREAST COMPOSITION: There [...] PS360 ? FINAL REPORT Dictated By: ??Dulce aLne MD ??08/22/2020 07:11 Assigned Physician: ??Dulce Lane [...] mammography views were obtained. Computer-aideddetection utilizing [employer] ([employer])CAD reader has been performed. BREAST COMPOSITION: There [...] Relevant to Health Maintenance Insurance MEDICAID - [place] [facility] [employer] [facility] OPT[employer] Member Subscriber Plan / Payer (Ef fective 2024-Present) Name:Bessie Bhatia Relation to Subscriber:Self Name:Bessie Bhatia Payer ID:[id number] Group ID:Not on file Type:Not on file Address: [address] [place] [address] [place] [facility] [employer] [facility] OPT[employer] Member Subscriber Plan / Payer (Ef fective 2024-Present) Name:Bessie Bhatia Relation to Subscriber:Self Name:Bessie Bhatia Payer ID:[id number] Group ID:Not on file Type:Not on file Address: [address] [place] [address] Advance Directives * Full Code - Default [...] currently active code status orders. Care Teams Paver Installer Relationship Specialty Start Date End Date Evelia Donald MD [address] [place] [address] , [address] [facility] D/B/A: [facility] OTIS De Oliveira PCP - General Internal Medicine 08/30/24
== END 2025-01-27 11:10 | disposition home or self-care (01) ==
PROVIDERS: PCP Internal Medicine; Visit Provider Nurse Practitioner Family
DX: K85.80 Other acute pancreatitis without necrosis or infection (principal)

== ENCOUNTER → 2025-01-27 10:08 | Outpatient (BNVA) | payer OTHER, SELFPAY | PROVIDERS: PCP Internal Medicine; Visit Provider Nurse Practitioner Family | DX: E11.40 Type 2 diabetes mellitus with diabetic neuropathy, unspecified (principal); K85.80 Other acute pancreatitis without necrosis or infection; I10 Essential (primary) hypertension; E78.5 Hyperlipidemia, unspecified; K21.9 Gastro-esophageal reflux disease without esophagitis; Z79.4 Long term (current) use of insulin | CPT/HCPCS: 96127; 99212 ==

== ENCOUNTER 2025-02-13 09:17 | Emergency (ER) | payer OTHER, SELFPAY ==
--- NOTE | ~2025-02-13 | XR_ITS ---
CLINICAL HISTORY: cough, subjective fever 2 view chest x-ray Comparison: 07/27/2022 Findings: No consolidation or effusion. Normal size heart. No acute fracture. IMPRESSION: 1. No acute findings. This document has been electronically signed by: Lissette Leon MD on 02/13/2025 11:40:49
[2025-02-13 09:19] VITALS: BP 182/80; PULSE 93; RESP 19; TEMP 36.6; O2SAT 98; BMI 34.0
--- NOTE | 2025-02-13 09:48 | ED_ITS ---
HPI - General Adult General Chief complaint: Abdominal Pain Stated complaint: ? Kidney Stone Time Seen by Provider: 02/13/25 09:34 Source: patient, RN notes reviewed, old records reviewed and curtain cutter hand Mode of arrival: ambulatory Limitations: language barrier History of Present Illness ED Provider: Shahram HPI narrative: Patient is a 65-year-old female with history of insulin-dependent diabetes mellitus with diabetic neuropathy, hypertension, mixed hyperlipidemia, mood disorder, gastroesophageal reflux disease, lower extremity edema, restless leg syndrome presenting to the emergency department with complaint of epigastric and right upper quadrant abdominal pain for the past few days. Reports recent inpatient hospitalization for bacteremia, pancreatitis with cholestasis. States pain had improved by discharge, and she completed the full course of Bactrim she was discharged home on. Reports subjective fever yesterday as well as mild nonproductive cough. Denies nausea, vomiting, diarrhea, constipation. Reports urinary frequency but denies dysuria, hematuria, back or flank pain. Denies chest pain, palpitations, dyspnea. In-person medical staff credentialing coordinator utilized for assessment. MD complaint: abdominal pain Onset (ago): day(s) Related Data Home Medications ?Medication ?Instructions ?Recorded ?Confirmed amitriptyline 10 mg tablet 5 mg PO BEDTIME 01/19/25 01/26/25 amlodipine 5 mg tablet 2.5 mg PO DAILY 01/19/25 01/26/25 polyethylene glycol 3350 17 17 g PO DAILY Constipation 01/19/25 01/26/25 gram/dose oral powder (Miralax) ropinirole 0.25 mg tablet 1 mg PO BEDTIME 01/19/25 01/26/25 sennosides 8.6 mg-docusate sodium 1 tab PO Q2D@2100 01/19/25 01/26/25 50 mg tablet (Senna with Docusate Sodium) Previous Rx's ?Medication ?Instructions ?Recorded acetaminophen 500 mg capsule 500 mg PO Q6H PRN fever 30 days 06/24/23 #120 caps blood-glucose meter (Prodigy #1 ea 02/08/24 Autocode Meter kit) lancets 28 gauge (Prodigy Lancets) #100 ea 02/08/24 walker #1 ea 07/26/24 blood-glucose meter (FreeStyle #1 ea 11/29/24 Lite Meter kit) atorvastatin 10 mg tablet 10 mg PO DAILY 90 days #90 tabs 12/13/24 furosemide 40 mg tablet 40 mg PO DAILY #90 tabs 12/13/24 insulin glargine 100 unit/mL (3 48 unit (0.48 mL) subcut DAILY 90 12/13/24 mL) subcutaneous pen (Lantus days #43.2 mL Solostar U-100 Insulin) blood sugar diagnostic (FreeStyle #100 ea 12/20/24 Test strips) tolterodine 2 mg capsule,extended 2 mg PO DAILY 90 days #90 caps 01/04/25 release 24 hr metoprolol succinate 25 mg 25 mg PO DAILY #30 tabs 01/06/25 tablet,extended release 24 hr ondansetron 4 mg disintegrating 4 mg PO Q6-8H PRN nausea and 01/16/25 tablet vomiting #7 tabs sulfamethoxazole 800 1 tab PO BID #8 tabs 01/25/25 mg-trimethoprim 160 mg tablet (Bactrim DS) acyclovir 400 mg tablet 400 mg PO TID 30 days #90 tabs 02/04/25 divalproex 500 mg tablet,extended 1,000 mg (2 x 500 mg) PO BEDTIME 02/04/25 release 24 hr 90 days #180 tabs dulaglutide 1.5 mg/0.5 mL 1.5 mg (0.5 mL) subcut FR #2 mL 02/04/25 subcutaneous pen injector (Trulicity) insulin aspart U-100 100 unit/mL 10 unit (0.1 mL) subcut TID 90 02/04/25 (3 mL) subcutaneous pen (Novolog days #27 mL FlexPen U-100 Insulin aspart) lisinopril 20 mg tablet 40 mg (2 x 20 mg) PO DAILY 90 days 02/04/25 #180 tabs omeprazole 20 mg capsule,delayed 20 mg PO DAILY #90 caps 02/04/25 release pen needle, diabetic 32 gauge x #100 ea 02/04/25 (1st Tier Unifine Pentips) Allergies Allergy/AdvReac Type Severity Reaction Status Date / Time Penicillins Allergy Intermediate rash/swelli Verified 02/13/25 09:22 ng shellfish derived Allergy Intermediate Swelling, Verified 02/13/25 09:22 Hives Review of Systems 2 Review of Systems: As per HPI Yes all other systems are reviewed and are negative Constitutional: Constitutional: Reports as per HPI PMFSH Past Medical History Medical History Osteoporosis Hypertension History of blood clot in brain Hypercholesteremia HSV-2 (herpes simplex virus 2) infection Arthritis Rheumatic fever Schizophrenia GERD (gastroesophageal reflux disease) Depression HTN (hypertension) Hyperlipemia Diabetes Surgical History Hx of colonoscopy History of tubal ligation History of cystostomy History of 2 sections Family History Family History Sister Age: 63 Osteoarthritis Mother Cancer of lymphatic and hematopoietic tissue, Onset Age: 83 COVID-19 Father FH: heart attack Brother FH: heart attack Other Diabetes HTN (hypertension) Mental health disorder Social History Social History Household Members: None Household Members Other:: sister Housing: Apartment Do you presently have visiting nurse or other home services: No Alcohol intake: never Patient Tobacco Use Status: Never used Tobacco e-Cigarette/Vaping Use: Never Used Second Hand Smoke Exposure: No Advance Directives: Yes Advance Directives on File: Yes Advance Directives Date on File: 12/05/21 Do you have a plan to hurt others: No Plan service: No Current occupational status: disabled Sexual orientation: Straight/Heterosexual Gender identity: Female Cognitive needs: Yes (walker) Hearing needs: No Vision needs: Yes (glasses) Physical Exam ED Vital Signs: Vital Signs - 24 hr 02/13/25 09:19 02/13/25 10:30 Temperature 98 F 98.2 F Pulse Rate 93 91 Respiratory Rate 19 16 Blood Pressure 182/80 H 186/72 H Pulse Oximetry 98 99 Oxygen Delivery Method Room Air Room Air BMI result Body Mass Index 34.0 Vital signs have been reviewed and appear to be correct. Blood pressure elevated. Heart rate normal. Respiratory rate normal. Temperature normal. Oxygen saturation normal. Const General: cooperative and no acute distress Orientation/consciousness: oriented to person, oriented to place, oriented to time and patient oriented x3 Limitations: no limitations HENMT Head: Yes normocephalic and Yes atraumatic Ears: external ears normal General nose exam: Normal external nose present Face and sinus: Yes face symmetric Mouth: oropharynx normal and moist mucous membranes Throat: Yes uvula midline Eyes Pupils: Equal, round and reactive pupils present Neck Neck: Yes normal visual inspection and Yes supple Resp Effort & Inspection: normal respiratory effort and able to speak in complete sentences Auscultation: clear to auscultation bilaterally Cardio Rate: regular rate Rhythm: regular rhythm Heart sounds: S1 normal heart sound present and S2 normal heart sound present GI Palpation (GI): Soft to palpation, Tenderness to palpation present (GI) in the epigastrum, no guarding and No Rebound tenderness present Auscultation: normoactive bowel sounds General: Yes no CVA tenderness Back/Spine/Pelvis Back: no CVA tenderness Skin General skin exam: elasticity normal and turgor normal Neuro General: oriented to person, oriented to place, oriented to time, patient oriented x3, moves all extremities, no focal motor deficits and CN's II-XI intact bilaterally Cranial nerves: Yes Equal, round and reactive pupils present Cognition (Neuro): normal cognition Extrem General: Yes full ROM, Yes no pedal edema and Yes no calf tenderness Psych Mental Status: mental status grossly normal Affect: normal affect Thought process: Normal thought process present Medications Administered Discontinued Medications Generic Name Dose Route Start Last Admin Trade Name Freq PRN Reason Stop Dose Admin Al Hydroxide/Mg Hydroxide 30 ml 02/13/25 11:17 02/13/25 11:38 Magnesium Hydrox/Alum Hydrox 30 Ml Oral.Susp PO 02/13/25 11:18 30 ml ONCE ONE Administration Lidocaine HCl 15 ml 02/13/25 11:17 02/13/25 11:38 Lidocaine Hcl Viscous 2 % 15 Ml Solution MUCOUS MEM 02/13/25 11:18 15 ml ONCE ONE Administration Medical Decision Making Medical Decision Making [facility] Narrative: Patient is a 65-year-old female with history of insulin-dependent diabetes mellitus with diabetic neuropathy, hypertension, mixed hyperlipidemia, mood disorder, gastroesophageal reflux disease, lower extremity edema, restless leg syndrome presenting to the emergency department with complaint of epigastric and right upper quadrant abdominal pain for the past few days. On exam patient is awake, A+Ox3, BP elevated, VS otherwise WNL, afebrile, well appearing, normal neurological exam without focal deficits, physical exam findings as above. Patient states she did not take her BP medications this am. Denies headache, vision changes, chest pain. Given reported symptoms and physical exam findings, initial differential includes but is not limited to GERD, gastritis. Less likely cholecystitis, pancreatitis but given history will check labs. Labs notable for no leukocytosis, no left shift, chronic stable anemia, normal transaminases and T bili as well as direct bili, normal lipase, negative troponin. Viral panel negative. Chest x-ray normal. My interpretation is in agreement with radiologist's interpretation. Labs reassuring, do not feel additional imaging is indicated at this time, only mild epigastric TTP on exam, negative Mendieta's. Improvement in symtoms after GI cocktail, feel symptoms more likely related to GERD. Results discussed with patient and all questions answered. Advised patient to follow up with PCP tomorrow morning. Strict return precautions discussed at bedside. Patient verbalized understanding of and agreement with plan. In-person medical staff credentialing coordinator was utilized for all interactions, assessments, and discussions. Differential Diagnosis Differential Diagnoses: The differential diagnosis associated with the presentation includes As per [facility] Admission/Observation Consideration of admission/observation: Escalation of care including admission/observation considered Patient would have been admitted to the hospital had their work up had any findings where hospital admission was appropriate and their clinical presentation warranted hospital admission. Lab Data [facility] Lab Attestation statement: I reviewed the patient's lab results. As per [facility] 02/13/25 10:34 02/13/25 10:34 Labs: Lab Results 02/13/25 Range/Units 10:34 WBC 6.8 (4.8-10.8) X10*3/uL RBC 3.77 L (4.20-5.50) X10*6/uL Hgb 10.6 L (12.0-16.0) g/dl Hct 31.8 L (37.0-47.0) % MCV 84.4 (80.0-98.0) fL MCH 28.1 (27.0-33.0) pg MCHC 33.3 (31.0-35.0) g/dl RDW 14.0 (11.0-16.0) % Plt Count 199 (160-400) X10*3/uL MPV 10.8 (9.4-12.3) fL Immature Gran % (Auto) 0.3 (0.0-0.4) % Neut % (Auto) 48.4 (45-73) % Lymph % (Auto) 40.9 H (20-40) % [place] % (Auto) 9.0 (2-11) % Eos % (Auto) 1.0 (0-4) % Baso % (Auto) 0.4 (0-2) % Lymph # (Auto) 2.8 (1.2-4.9) X10*3/uL [place] # (Auto) 0.6 (0.1-1.2) X10*3/uL Eos # (Auto) 0.1 (0.0-0.4) X10*3/uL Baso # (Auto) 0.0 (0.0-0.2) X10*3/uL Abs Immat Gran (auto) 0.02 (0.00-0.03) X10*3/uL Absolute Neuts (auto) 3.3 (2.0-8.3) x10*3/uL Absolute Nucleated RBC 0.000 (0.0-0.012) X10*3/uL Nucleated RBC % (auto) 0.0 (0.0-0.2) /100WBC Sodium 139 (135-145) mmol/L Potassium 3.9 (3.3-5.1) mmol/L Chloride 101 (96-108) mmol/L Carbon Dioxide 27 (22-29) mmol/L Anion Gap 15 (12-20) BUN 15 (9-16) mg/dL Creatinine 0.74 (0.5-1.4) mg/dL Estim Creat Clear Calc 69.5 Estimated GFR > 60 Random Glucose 94 (60-115) mg/dL Calcium 9.0 (8.4-10.2) mg/dL Total Bilirubin 0.4 (0.0-1.0) mg/dL Direct Bilirubin 0.2 (0.0-0.5) mg/dL AST 17 (5-31) U/L ALT 9 (0-31) U/L Alkaline Phosphatase 102 (39-117) U/L Troponin I High Sens < 2.7 (<3.5-17.0) ng/L Total Protein 6.3 L (6.5-8.0) g/dL Albumin 3.6 (3.5-5.0) g/dL Lipase 46 (8-78) U/L Influenza Type A (PCR) NEGATIVE (Negative) Influenza Type B (PCR) NEGATIVE (Negative) RSV RNA Qual (PCR) NEGATIVE (Negative) SARS-CoV-2 RNA (RT-PCR) NEGATIVE (Negative) Independent Interpretation I performed an independent interpretation of an: Plain X-Ray Interpretation: No evidence of pneumonia on CXR. Radiology Impression Discussion of test interpretation with radiology: I have reviewed the radiologist's reading. Radiologist Impression: 2 view chest x-ray Comparison: 07/27/2022 Findings: No consolidation or effusion. Normal size heart. No acute fracture. IMPRESSION: 1. No acute findings. External Record Review External record reviewed: Inpatient record, Office record and Outpatient record Critical Care Time Critical Care Time Critical Care Time: Yes Total Critical Care Time: 33 Attestation: I have personally provided critical care time exclusive of time spent on separately billable procedures. Time includes review of lab data, radiology results, discussion with consultants, and monitoring for potential decompensation. Intervention performed as documented. Discharge Plan Discharge Clinical Impression: Acute epigastric pain Patient Disposition: Home, Self-Care Instructions: GERD (Gastroesophageal Reflux Disease) (DC), Epigastric Pain (ED) Additional Instructions: You have been evaluated in the emergency department today for abdominal pain. Your evaluation did not show evidence of medical conditions requiring emergent intervention at this time and your labs were reassuring. Please schedule a follow up appointment with your primary care physician tomorrow. You can use over the counter Maalox for your symptoms. Return to the emergency department if you experience worsening or uncontrolled pain, fevers 100.4? F or greater, recurrent vomiting, inability to tolerate food or fluids by mouth, bloody stools or vomit, black or tarry stools, or any other concerning symptoms. Prescriptions: No Action acetaminophen 500 mg capsule 500 mg PO Q6H PRN (Reason: fever) 30 Days Qty: 120 1RF (DME) walker Misc See Rx Instructions .Route Qty: 1 0RF Rx Instructions: As directed (DME) blood-glucose meter [FreeStyle Lite Meter] Kit See Rx Instructions .Route Qty: 1 0RF Rx Instructions: As directed atorvastatin 10 mg tablet 10 mg PO DAILY 90 Days Qty: 90 0RF insulin glargine [Lantus Solostar U-100 Insulin] 100 unit/mL (3 mL) insulin pen 48 unit subcut DAILY 90 Days Qty: 43.2 0RF furosemide 40 mg tablet 40 mg PO DAILY Qty: 90 3RF (DME) FreeStyle Test Strip See Rx Instructions .Route Qty: 100 6RF Rx Instructions: As directed three times a day tolterodine 2 mg capsule,extended release 24hr 2 mg PO DAILY 90 Days Qty: 90 1RF ondansetron 4 mg tablet,disintegrating 4 mg PO Q6-8H PRN (Reason: nausea and vomiting) Qty: 7 0RF omeprazole 20 mg capsule,delayed release(DR/EC) 20 mg PO DAILY Qty: 90 0RF lisinopril 20 mg tablet 40 mg PO DAILY 90 Days Qty: 180 0RF divalproex 500 mg tablet extended release 24 hr 1,000 mg PO BEDTIME 90 Days Qty: 180 0RF insulin aspart U-100 [Novolog FlexPen U-100 Insulin] 100 unit/mL (3 mL) insulin pen 10 unit subcut TID 90 Days Qty: 27 0RF (DME) pen needle, diabetic [1st Tier Unifine Pentips] 32 gauge x 5/32 needle See Rx Instructions .Route Qty: 100 0RF Rx Instructions: Use 1 pen needle three times a day Trulicity 1.5 mg/0.5 mL pen injector 1.5 mg subcut FR Qty: 2 0RF acyclovir 400 mg tablet 400 mg PO TID 30 Days Qty: 90 0RF amlodipine 5 mg tablet 2.5 mg PO DAILY sennosides-docusate sodium [Senna with Docusate Sodium] 8.6-50 mg tablet 1 tab PO Q2D@2100 Rx Instructions: Please take 2 tab every day at bedtime ropinirole 0.25 mg tablet 1 mg PO BEDTIME amitriptyline 10 mg tablet 5 mg PO BEDTIME polyethylene glycol 3350 [Miralax] 17 gram/dose powder 17 g PO DAILY sulfamethoxazole-trimethoprim [Bactrim DS] 800-160 mg tablet 1 tab PO BID Qty: 8 0RF (DME) blood-glucose meter [Plizy Autocode Meter] Kit See Rx Instructions .Route Qty: 1 0RF Rx Instructions: As directed (DME) lancets [Prodigy Lancets] 28 gauge misc See Rx Instructions .Route Qty: 100 11RF Rx Instructions: Use 1 lancet four times a day metoprolol succinate 25 mg tablet extended release 24 hr 25 mg PO DAILY Qty: 30 5RF Rx Instructions: Stop amlodipine Start metoprolol Print Language: Sinhala
--- NOTE | 2025-02-13 09:51 | ECG_ITS ---
Test Reason : EPIGASTRIC PAIN Blood Pressure : */* mmHG Vent. Rate : 77 BPM Atrial Rate : 77 BPM P-R Int : 150 ms QRS Dur : 98 ms QT Int : 384 ms P-R-T Axes : 26 -19 48 degrees QTcB Int : 434 ms Normal sinus rhythm Moderate voltage criteria for LVH, may be normal variant ( R in aVL , David product ) Borderline ECG When compared with ECG of 13-Jan-2025 01:05, Criteria for Septal infarct are no longer Present Referred By: Donna Miller Electronically Signed By: Nate Azar
[2025-02-13 10:30] VITALS: BP 186/72; PULSE 91; RESP 16; TEMP 36.8; O2SAT 99
[2025-02-13 10:39] LABS: MANUAL DIFF FLAG NO
[2025-02-13 10:40] LABS: Basophils Percent Auto 0.4 % (0-2); Eosinophils Absolute Auto 0.1 X10*3/uL (0.0-0.4); Hematocrit 31.8 % (37.0-47.0); Hemoglobin 10.6 g/dl (12.0-16.0); Imm Gran Abs Auto 0.02 X10*3/uL (0.00-0.03); Imm Gran Pct Auto 0.3 % (0.0-0.4); Lymphocytes Absolute Auto 2.8 X10*3/uL (1.2-4.9); Lymphocytes Percent Auto 40.9 % (20-40); Mean Corpuscular HGB Conc 33.3 g/dl (31.0-35.0); Mean Corpuscular Hemoglobin 28.1 pg (27.0-33.0); Mean Corpuscular Volume 84.4 fL (80.0-98.0); Mean Platelet Volume 10.8 fL (9.4-12.3); Monocytes Absolute Auto 0.6 X10*3/uL (0.1-1.2); Neutrophils Absolute Auto 3.3 x10*3/uL (2.0-8.3); Neutrophils Percent Auto 48.4 % (45-73); Platelet Count 199 X10*3/uL (160-400); Red Blood Count 3.77 X10*6/uL (4.20-5.50); White Blood Count 6.8 X10*3/uL (4.8-10.8)
[2025-02-13 10:53] LABS: Alanine Aminotransferase 9 U/L (0-31); Albumin Level 3.6 g/dL (3.5-5.0); Alkaline Phosphatase 102 U/L (39-117); Anion Gap 15 (12-20); Aspartate Amino Transferase 17 U/L (5-31); Bilirubin Direct 0.2 mg/dL (0.0-0.5); Bilirubin Total 0.4 mg/dL (0.0-1.0); Blood Urea Nitrogen 15 mg/dL (9-16); Carbon Dioxide 27 mmol/L (22-29); Chloride 101 mmol/L (96-108); Creatinine Clr Calc Pharmacy 69.5; Estimated Glomerular Filt Rate > 60; Glucose Random 94 mg/dL (60-115); Lipase 46 U/L (8-78); Potassium 3.9 mmol/L (3.3-5.1); Sodium 139 mmol/L (135-145); Total Protein 6.3 g/dL (6.5-8.0)
[2025-02-13 11:01] LABS: Troponin-I High Sensitivity < 2.7 ng/L (<3.5-17.0)
--- NOTE | 2025-02-13 11:12 | PC.NURSE ---
Pt complaining of abd pain that is diffuse, not just epigastric. Describes lower abd pain as well. Denies N/V/D but has a cough and gen malaise. Skin pwd. unlabored resp. NAD.
[2025-02-13 11:16] LABS: Influenza A PCR NEGATIVE (Negative); Influenza B PCR NEGATIVE (Negative); Resp Syncy Virus RNA Qual PCR NEGATIVE (Negative); SARS COV2 PCR INHOUSE NEGATIVE (Negative)
[2025-02-13] MEDS: Lidocaine HCl Viscous 2 % 15 ML SOLUTION MUCOUS MEM (11:38)
[2025-02-13] MEDS: Magnesium Hydrox/Alum Hydrox 30 ML ORAL.SUSP PO (11:38)
[2025-02-13 12:30] VITALS: BP 186/72; PULSE 91; RESP 16; TEMP 36.8; O2SAT 99
== END 2025-02-13 12:31 | disposition home or self-care (01) ==
PROVIDERS: Registered Nurse Emergency; Emergency Provider Emergency Medicine; PCP Internal Medicine
DX: R10.13 Epigastric pain (principal); Z03.818 Encounter for observation for suspected exposure to other biological agents ruled out; E11.9 Type 2 diabetes mellitus without complications; I10 Essential (primary) hypertension; E78.00 Pure hypercholesterolemia, unspecified; R60.0 Localized edema; K21.9 Gastro-esophageal reflux disease without esophagitis; Z79.4 Long term (current) use of insulin; Z79.899 Other long term (current) drug therapy
CPT/HCPCS: 0241U; 71046; 80048; 80076; 83690; 84484; 85025; 93005; 99283; 99284

== ENCOUNTER → 2025-02-13 09:51 | Outpatient (BNV) | payer OTHER, SELFPAY | PROVIDERS: Emergency Provider Emergency Medicine; PCP Internal Medicine; Visit Provider Internal Medicine Cardiovascular Disease | DX: R10.13 Epigastric pain (principal) | CPT/HCPCS: 93010 ==

== ENCOUNTER → 2025-02-13 09:58 | Outpatient (BNV) | payer OTHER, SELFPAY | PROVIDERS: Emergency Provider Emergency Medicine; PCP Internal Medicine; Visit Provider Radiology Diagnostic Radiology | DX: R05.9 Cough, unspecified (principal); R50.9 Fever, unspecified | CPT/HCPCS: 71046 ==

== ENCOUNTER 2025-02-21 08:17 | Outpatient (AMB) | payer OTHER, SELFPAY ==
--- OUTSIDE RECORDS SUMMARY | 2025-02-21 08:24 | XMS_ITS | Data Portability ---
Author Organization [facility], autoContract Address [address] [place] [address] Assessment No assessment recorded. Plan of Treatment Reminders Order Date Submit Date Provider Last Modified By Organization Details Last Modified Time Details Appointments None recorded. Lab None recorded. Referral None recorded. Procedures None recorded. Surgeries None recorded. Imaging None recorded. Medication Orders ammonium lactate 12 % lotion 2020 021 [facility][id number], [address] [facility], [place], [address], 15:37:21 Patient TargetsNo targets recorded. Patient Instructions Encounter Date Encounter Id Patient Instructions Last Modified By Organization Details Last Modified Time 10/18/2020 [id number] 1.) Office visit with DM foot exam [...] regular follow up evaluation by PCP and/or database reporting consultant. 6.) Return 3 months for DM check up and comprehensive foot care, sooner if problems. Not available 10/18/2020 12:32:14 01/28/2021 [id number] 1.) Office visit with DM foot exam [...] regular follow up evaluation by PCP and/or database reporting consultant. 6.) Return 3 months for DM check up and comprehensive foot care, sooner if problems. Not available 01/28/2021 15:01:30 02/18/2021 [id number] Warranty/Receipt New shoe break-in period Wear your [...] PRN basis. Not available 10/18/2021 09:50:05 05/06/2021 [id number] 1.) Office visit with DM foot exam [...] regular follow up evaluation by PCP and/or database reporting consultant. 6.) Return 3 months for DM check up and comprehensive foot care, sooner if problems. Not available 05/07/2021 08:22:47 08/09/2021 [id number] dedo en martillo : instrucciones de cuidado [...] regular follow up evaluation by PCP and/or database reporting consultant. 6.) Return 3 months for DM check up and comprehensive foot care, sooner if problems. I am prescribin. 1 Left and 1 Right - CoAxia Medley S325-1 Black, Hook & Loop depth-inlay [...] Address Organization Details Recorded Time Diabetes mellitus 78930382 Active Min Rogers DPM [address] [place], [address], [facility] 5 12:50:43 Disorder o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 mellitus 881013139 Active 2017 Min Rogers DPM [address] [place], [place], [address] [place] [address] 7, [facility] 8 13:27:17 Overweight 800536000 Active 2019 Min Rogers DPM [address] [place], [address], [facility] 0 17:15:07 Uncontrolle d type 2 diabetes mellitus 037084756 Completed 01/21/2018 Min Rogers DPM [address] [place], [place], [address] [place] [address] 7, [facility] 8 13:27:22 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 129692340 Active Min Rogers DPM [address] [place], [place], [address] [place] [address] 7, [facility] 5 12:39:04 Ingrowing nail 623847842 Active Min Rogers DPM [address] [place], [address], [facility] 5 12:39:04 Edema 753073809 Active Min Rogers DPM [address] [place], [address], [facility] 5 13:32:56 Peripheral venous insufficien cy 01801266 Active Min Rogers DPM [address] [place], [place], [address] [place] [address] 7, [facility] - [facility] 5 13:32:56 Pain in limb 78030016 Active Min Rogers DPM [address] [place], [address], [facility] - [facility] 5 12:39:04 Hammer toe 390577705 Active Min Rogers DPM [address] [place], [address], [facility] 5 12:50:43 Acquired cavus deformity of foot 05765174 Active Min Rogers DPM [address] [place], [address], [facility] 5 12:50:43 Problem Notes None recorded. Procedures Surgical History Date Name Laterality Status Provider Name and Address Organization Details Recorded Time 1 Nail Debridement completed Min Rogers DPM [address] [place], [address], [facility] 08/09/2021 15:47:04 1 Nail Debridement completed Min Rogers DPM [address] [place], [address], [facility] 05/07/2021 08:22:47 1 Nail Debridement completed Min Rogers DPM [address] [place], [address], [facility] 01/28/2021 15:00:03 1 Nail Debridement completed Min Rogers DPM [address] [place], [address], [facility] 10/18/2020 12:32:14 0 Nail Debridement completed Min Rogers DPM [address] [place], [address], [facility] 07/16/2020 12:25:52 0 Nail Debridement completed Min Rogers DPM [address] [place], [address], [facility] 04/12/2020 11:12:51 0 Nail Debridement completed Min Rogers DPM [address] [place], [address], [facility] 01/26/2020 15:11:05 0 Nail Debridement completed Min Rogers DPM [address] [place], [address], [facility] 10/31/2019 09:07:59 9 Nail Debridement completed Min Rogers DPM [address] [place], [address], [facility] 08/26/2019 16:10:32 9 Cortisone Injection completed Min Rogers DPM [address] [place], [address], [facility] 06/09/2019 08:55:55 9 Nail Debridement completed Min Rogers DPM [address] [place], [address], [facility] 06/09/2019 09:15:28 9 Nail Debridement completed Min Rogers DPM [address] [place], [address], [facility] 03/10/2019 13:36:34 9 Nail Debridement completed Min Rogers DPM [address] [place], [address], [facility] 12/28/2018 09:42:50 9 Nail Debridement completed Min Rogers DPM [address] [place], [address], [facility] 10/19/2018 13:15:54 8 Cortisone Injection completed Min Rogers DPM [address] [place], [address], [facility] 07/29/2018 11:08:29 8 Nail Debridement completed Min Rogers DPM [address] [facility], [place], [address], [facility] 07/29/2018 13:09:03 8 Nail Debridement completed Min Rogers DPM [address] [facility], [place], [address], [facility] 05/13/2018 10:01:58 8 Nail Debridement completed Min Rogers DPM [address] [place], [address], [facility] 03/04/2018 09:31:43 8 Nail Debridement completed Min Rogers DPM [address] [place], [address], [facility] 11/26/2017 14:37:36 5 Nail Debridement completed Min Rogers DPM [address] [place], [address], [facility] 02/01/2015 12:39:04 5 Nail Debridement completed Min Rogers DPM [address] [facility], [place], [address], [facility] 10/31/2014 13:32:39 4 Nail Debridement completed Min Rogers DPM [address] [place], [address], [facility] 08/03/2014 10:36:36 4 Nail Debridement completed Min Rogers DPM [address] [place], [address], [facility] 05/11/2014 10:36:07 4 Nail Debridement completed Min Rogers DPM [address] [place], [address], [facility] 02/20/2014 09:20:10 4 Nail Debridement completed Gregor Mckeon [facility] 12/07/2013 17:55:59 3 [facility]ail De[facility]ement [facility] 08/15/2013 18:15:52 3 Nail Debridement completed Min Rogers DPM [address] [place], [address], [facility] 05/08/2013 13:57:00 3 Nail Debridement completed Min Rogers DPM [address] [place], [address], [facility] 02/03/2013 13:55:58 3 Nail Debridement completed Min Rogers DPM [address] [place], [address], [facility] 11/15/2012 12:39:57 Imaging Results None recorded. Procedure Notes None recorded. Medical Equipment None Reported. Allergies Allergen ID Allergen Name Allergen Category Reaction Reaction Severity Criticality Documentation Date Start Date Code Code System Note Provider Name and Address Organization Details Recorded Time 921 Product containin g penicilli n (product) medicatio n Not available Not available Not available 10/14/2012 83008 8001 SNOMED [facility] 3 15:13:05 Medications Name Sig Start Date [...] Available Not Available No t Available [employer] [place] Lite kit active Not Available Not Available [...] 157.48 cm Min Rogers, SEDRICKM [address] [place], [address], [facility] [employer] 10/18/2020 11:14:48 Date Recorded Body height Provider Name an d Address Organization Details Last Updated DateTime 01/28/2021 157.48 cm Min Rogers, DPM [address] [place], [address], [place] [employer] 01/28/2021 14:38:33 Date Recorded Body height Provider Name an d Address Organization Details Last Updated DateTime 02/18/2021 157.48 cm Min Rogers, DPM [address] [place], [address], [facility] [employer] [facility] 10/18/2021 09:42:13 Date Recorded Body height Provider Name an d Address Organization Details Last Updated DateTime 05/06/2021 157.48 cm Min Rogers, DPM [address] [place], [address], [place] [facility] 05/06/2021 16:15:17 Date Recorded Body height Provider Name an d Address Organization Details Last Updated DateTime 08/09/2021 157.48 cm Min Rogers, DPM [address] [place], [address], [facility] 08/09/2021 15:31:11 Social History Question Answer Notes LastModified by Organizat ion Details LastModified Time Tobacco Smoking Status Never Smoker Not Available [employer] 07/06/2020 03:15:47 Are You Blind Or Do You Have Difficulty Seeing? No [id number] Information not available 07/06/2020 Are You Deaf Or Do You Have Serious Difficulty Hearing? No [id number] Information not available 07/06/2020 Which Illicit Or Recreational Drugs Have You Used? Never [id number] Information not available 07/06/2020 Marital Status sbcarloCristino Rodriguezo n not available 10/17/2012 What Was The Date Of Your Most Recent Tobacco Screening? 12/28/2018 [id number] Information not available 07/06/2020 Do You Have Difficulty Walking Or Climbing Stairs? No [id number] Information not available 07/06/2020 Sex: Unknown Functional Status Question Answer Note LastModified by Organizat ion Details LastModified Time What is your level of alcohol consumption? None [id number] Information not available 07/06/2020 Do you have difficulty doing errands alone? No [id number] Information not available 07/06/2020 What is your occupation? Disabled - Mental Illness [id number] Information not available 07/06/2020 Do you have difficulty dressing or bathing? No [id number] Information not available 07/06/2020 Mental Status Question Answer Note LastModified by Organization D etails LastModified Time Do you have difficulty concentrating, remembering or making decisions? No [id number] Information no t available 07/06/2020 Family History [...] Code Diagnosis Note [id number] Min Rogers DPM [facility] [address] [place] [address] 10/14/2012 15:09:24 10/18/2012 09:39:25 3202 Min Rogers DPM [facility] [employer] [place] [address] 11/11/2012 13:38:31 11/15/2012 16:52:19 7753 Min Rogers [facility] [address] [place] [address] 02/03/2013 13:22:42 02/03/2013 14:21:55 9796 Min Rogers [facility] [address] [address] 05/06/2013 13:22:19 05/06/2013 13:57:43 34120 Min Rogers [facility] [address] [place] [address] 08/15/2013 10:36:55 08/15/2013 11:25:59 Uncontrolled type 2 diabetes mellitus 732548644 Ingrowing nail 478160428 Pain in limb 69447831 Onychomyco sis due to dermatophyte 292797212 Peripheral venous insufficiency 92945125 Edema 809576771 Acquired c avus deformity of foot 46877320 Hammer toe 198975357 18315 Min Rogers [facility] [address] [address] 10/05/2013 11:52:21 10/05/2013 12:01:29 Uncontrolled type 2 diabetes mellitus 273801746 Hammer toe 361977013 90456 Min Rogers [facility] [address] [address] 12/07/2013 12:16:56 12/07/2013 12:42:09 Uncontrolled type 2 diabetes mellitus 063715098 Hammer toe 684241861 Onychomyco sis due to dermatophyte 607603071 Pain in limb 75169411 Ingrowing nail 175701562 38217 Min Rogers [facility] [address] [place] [address] 02/16/2014 09:54:34 02/16/2014 10:32:43 Onychomycosis due to dermatophyte 255038103 Ingrowing nail 050840858 Pain in limb 19874158 Diabetes mellitus 55569443 Peripheral venous insufficiency 39767693 Edema 287907646 Acquired c avus deformity of foot 50956472 Hammer toe 266143134 72516 Min Rogers DPM [facility] [address] [address] 05/11/2014 10:23:52 05/11/2014 10:24:21 Onychomycosis due to dermatophyte 595163245 Ingrowing nail 845785630 Pain in limb 98558279 Diabetes mellitus 02279524 Peripheral venous insufficiency 32229474 Edema 304273486 Acquired c avus deformity of foot 70709392 Hammer toe 456718401 36541 Min Rogers DPM [facility] [address] [address] 08/03/2014 09:27:24 08/03/2014 10:21:02 Onychomycosis due to dermatophyte 887547492 Ingrowing nail 748934298 Pain in limb 67915594 Diabetes mellitus 93309561 Peripheral venous insufficiency 23376183 Edema 491827010 Acquired c avus deformity of foot 43278530 Hammer toe 149293692 00690 Min Rogers DPM [facility] [address] [address] 10/27/2014 09:16:37 10/27/2014 10:30:34 Onychomycosis due to dermatophyte 188659861 Ingrowing nail 217840642 Pain in limb 99560557 Diabetes mellitus 12742372 Peripheral venous insufficiency 04337206 Edema 155076004 Acquired c avus deformity of foot 21364668 Hammer toe 853884913 26292 Min Rogers DPM [facility] [address] [address] 11/02/2014 13:10:07 11/02/2014 13:21:56 Hammer toe 568817672 Acquired c avus deformity of foot 35842138 Uncontroll ed type 2 diabetes mellitus 406190093 24673 Min Rogers DPM [facility] [address] [address] 11/13/2014 12:15:16 11/13/2014 12:33:38 Acquired cavus deformity of foot 28046589 Diabetes mellitus 96088486 Hammer toe 579361530 44857 Min Rogers DPM [facility] [address] [place] [address] 01/18/2015 13:54:36 01/18/2015 14:06:52 Onychomycosis due to dermatophyte 409819470 Ingrowing nail 718163271 Pain in limb 64296493 Uncontroll ed type 2 diabetes mellitus 723185763 45861 Min Rogers DPM [facility] [address] [address] 11/26/2017 10:25:50 11/26/2017 11:21:38 Overweight 776020509 E66.3 Ingrowing nail 041597172 L60.0 Pain in toe 105108081 M7 9.676 Disorder o 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 mellitus 834193347 E11.49 Hammer toe 176306249 M20 .41 M20.42 Onychomycosis 310030719 B35.1 84310 Min Rogers DPM [facility] [address] [address] 01/21/2018 13:25:31 01/21/2018 13:28:43 Disorder o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 mellitus 438451550 E11.49 Hammer toe 422450729 M20 .41 M20.42 26778 Min Rogers DPM [facility] [address] [address] 02/17/2018 11:45:01 02/17/2018 12:02:11 Disorder o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 mellitus 384170743 E11.49 Hammer toe 219625787 M20 .41 M20.42 41656 Min Rogers DPM [facility] [address] [place] [address] 03/04/2018 08:59:26 03/04/2018 09:00:37 Onychomycosis due to dermatophyte 066142602 B35.1 Ingrowing nail 908637852 L60.0 Pain in limb 57143645 M7 9.609 Uncontroll ed type 2 diabetes mellitus 883867531 E11.65 07392 Min Rogers DPM [facility] [address] [place] [address] 05/13/2018 09:31:40 05/13/2018 09:56:12 Ingrowing nail 000435306 L60.0 Pain in limb 34942331 M7 9.609 Uncontroll ed type 2 diabetes mellitus 858831449 E11.65 Onychomycosis 258803703 B35.1 Obese 747104782 E66.9 51883 Min Rogers DPM [facility] [employer] [place] [address] 07/29/2018 11:05:10 07/29/2018 11:15:42 Arthritis of right subtalar joint 6890296248 0728303 M13.871 Pain of ri ght ankle joint 0619522945 0124844 M25.571 Onychomycosis 602414964 B35.1 Ingrowing nail 725084955 L60.0 Uncontroll ed type 2 diabetes mellitus 900093627 E11.65 Obese 231949074 E66.9 Plantar fasciitis 896345 003 M72.2 Pain in toe 012730969 M7 9.676 93521 Min Rogers DPM [facility] [address] [place] [address] 08/02/2018 09:02:54 08/02/2018 09:39:55 Foot pain 27398825 M79.671 Arthritis of right subtalar joint 5743929062 6970879 M13.871 Plantar fasciitis 274170 003 M72.2 Onychomycosis 009112974 B35.1 Ingrowing nail 476027468 L60.0 Pain in toe 345887876 M7 9.676 Uncontroll ed type 2 diabetes mellitus 513378922 E11.65 Obese 750025754 E66.9 09590 Min Rogers DPM [facility] [address] [place] [address] 08/10/2018 11:41:12 08/10/2018 12:40:42 Plantar fasciitis 699175440 M72.2 Foot pain 32926102 M79.6 71 M79.672 14741 Min Rogers DPM [facility] [address] [place] [address] 10/19/2018 11:14:44 10/19/2018 13:16:01 Onychomycosis 526214985 B35.1 Ingrowing nail 570188309 L60.0 Pain in limb 37545197 M7 9.609 Uncontroll ed type 2 diabetes mellitus 716437977 E11.65 Obese 147494437 E66.9 15925 Min Rogers DPM [facility] [address] [place] [address] 12/28/2018 08:27:54 12/28/2018 09:22:02 Onychomycosis 310074161 B35.1 Ingrowing nail 376926344 L60.0 Pain in limb 66044251 M7 9.609 Uncontroll ed type 2 diabetes mellitus 425156158 E11.65 Obese 754693665 E66.9 24925 Min Rogers DPM [facility] [address] [place] [address] 03/10/2019 11:30:47 03/10/2019 12:35:36 Onychomycosis 333877674 B35.1 Ingrowing nail 995291051 L60.0 Pain in limb 16920721 M7 9.609 Uncontroll ed type 2 diabetes mellitus 869207728 E11.65 Obese 451082608 E66.9 12459 Min Rogers DPM [facility] [address] [place] [address] 06/09/2019 08:31:13 06/09/2019 09:28:11 Onychomycosis 066477391 B35.1 Ingrowing nail 173178430 L60.0 Pain in limb 82947012 M7 9.609 Uncontroll ed type 2 diabetes mellitus 846904776 E11.65 Obese 887986951 E66.9 Osteoarthr itis of subtalar joint 422835994 M19.072 Foot pain 36860902 M79.6 72 51761 Min Rogers DPM [facility] [address] [place] [address] 08/26/2019 15:57:18 08/26/2019 16:06:24 Overweight 132228681 E66.3 Onychomycosis 665167769 B35.1 Ingrowing nail 954980455 L60.0 Uncontroll ed type 2 diabetes mellitus 705671987 E11.65 Pain in toe 607894114 M7 9.676 21628 SEDRICK Villavicencio [facility] [address] [place] [address] 10/31/2019 08:53:06 10/31/2019 09:32:13 Onychomycosis 125139440 B35.1 Ingrowing nail 959629226 L60.0 Pain in toe 427267311 M7 9.676 Overweight 087403456 E66 .3 Disorder o 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 mellitus 676333973 E11.49 Hammer toe 854197423 M20 .41 M20.42 88513 SEDRICK Villavicencio [facility] [address] [place] [address] 12/19/2019 17:27:14 12/19/2019 17:36:09 Disorder o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 mellitus 423657984 E11.49 Hammer toe 067142185 M20 .41 M20.42 24451 SEDRICK Villavicencio [facility] [address] [place] [address] 01/26/2020 13:22:34 01/26/2020 15:00:52 Onychomycosis 238355830 B35.1 Ingrowing nail 964455133 L60.0 Pain in toe 000946171 M7 9.676 Disorder o 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 mellitus 441181751 E11.49 Hammer toe 076573313 M20 .41 M20.42 Overweight 170358491 E66 .3 45153 SEDRICK Villavicencio [facility] [address] [place] [address] 04/12/2020 11:04:10 04/12/2020 11:16:03 Onychomycosis 805330419 B35.1 Ingrowing nail 175731401 L60.0 Pain in toe 754646973 M7 9.676 Disorder o 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 mellitus 280765252 E11.49 Hammer toe 300814067 M20 .41 M20.42 Overweight 762923525 E66 .3 71933 SEDRICK Villavicencio [facility] [address] [place] [address] 07/16/2020 12:08:06 07/16/2020 12:20:12 Onychomycosis 091561382 B35.1 Ingrowing nail 613979086 L60.0 Pain in toe 986122594 M7 9.676 Disorder o 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 mellitus 031307554 E11.49 Hammer toe 753743870 M20 .41 M20.42 Overweight 721286183 E66 .3 73213 SEDRICK Villavicencio [facility] [address] [place] [address] 10/18/2020 11:06:15 10/18/2020 11:53:04 Onychomycosis 310833259 B35.1 Ingrowing nail 204148858 L60.0 Pain in toe 129729660 M7 9.676 Disorder o 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 mellitus 164004647 E11.49 Hammer toe 308297368 M20 .41 M20.42 Overweight 493524934 E66 .3 08981 SEDRICK Villavicencio [facility] [address] [place] [address] 01/28/2021 14:36:07 01/28/2021 14:49:01 Onychomycosis 699854385 B35.1 Ingrowing nail 038535777 L60.0 Pain in toe 697905067 M7 9.676 Disorder o 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 mellitus 255206886 E11.49 Obesity 946639685 E66.9 80016 Min Rogers DPM [facility] [address] [place] [address] 05/06/2021 16:07:24 05/06/2021 16:26:10 Onychomycosis 868906129 B35.1 Ingrowing nail 031163815 L60.0 Pain in toe 424620054 M7 9.676 Disorder o 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 mellitus 254101086 E11.49 Obesity 822191916 E66.9 99437 Min Rogers DPM [facility] [address] [place] [address] 08/09/2021 15:26:42 08/09/2021 15:31:37 Foot callus 062810441 L84 Onychomycosis 851659912 B35.1 Ingrowing nail 075587310 L60.0 Pain in toe 224975555 M7 9.676 Disorder o 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 mellitus 684255965 E11.49 Obesity 977223988 E66.9 Hammer toe 200220937 M20 .41 M20.42 54618 Min Rogers DPM [facility] [place] [address] [place] [address] 10/18/2021 09:41:46 10/18/2021 09:52:37 Disorder o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 mellitus 870680389 E11.49 Hammer toe 504095063 M20 .41 M20.42 Health Concerns Section Related [...] (MEDICAID REPLACEMENT - HMO) [facility] Bessie Alfonso [id number] Bessie Alfonso 01/28/2021 1 [employer] - DOS PRIOR TO 2022 (MEDICAID REPLACEMENT - HMO) [facility] Bessie Alfonso [id number] Bessie Alfonso 02/18/2021 1 [employer] - [place] PRIOR TO 2022 (MEDICAID REPLACEMENT - HMO) CS[facility] Bessie Alfonso [id number] Bessie Alfonso 05/06/2021 1 [place] Bessie Alfonso [id number] Bessie Alfonso 08/09/2021 1 [place] Bessie Alfonso [id number] Bessie Alfonso Notes Date Note Type Note [...] symptoms suggestive of coronavirus COVID-19 disease. Min PachecoMilena Rogers DPM [address] [place], [address], [facility] 10/18/2020 12:33:21 01/28/2021 text/html Bessie presents f [...] active coronavirus COVID-19 disease (fully vaccinated). Min JuniorMilena Rogers DPM [address] [place], [address], [facility] 01/28/2021 15:02:07 05/06/2021 text/html Bessie presents f [...] active coronavirus COVID-19 disease (fully vaccinated). Min JuniorMilena Rogers DPM [address] [place], [address], [facility] 05/07/2021 08:23:15 08/09/2021 text/html Bessie presents f [...] COVID-19 disease (vaccinated). Min Rogers DPM [address] [place], [address], [facility] 08/19/2021 12:11:02 OBGyn Episode No OBEpisode recorded.
--- NOTE | 2025-02-21 09:32 | MHC.OFFVIS ---
Vital Signs 02/21/25 09:41 Height 5 ft Weight 171 lb BMI 33.4 BP 118/82 Intake Visit Reasons: Annual Intake Note: no concerns Pest Control Service Technician Required: Yes Pest Control Service Technician Language: Metal Sprayer Protective Coating Services: Pest Control Service Technician Present (in person) Pest Control Service Technician Name: Guillermina ANDRES Information Interpreted: non-clinical & clinical Certified Diabetes Educator: Certified Diabetes Educator Present (Guillermina ANDRES) Accompanied by: Self / Same As Patient Allergies Penicillins Allergy (Intermediate, Verified 02/21/25 09:33) rash/swelling shellfish derived Allergy (Intermediate, Verified 02/21/25 09:33) Swelling, Hives Post menopausal: Yes HPI Comments Details: Presenting for annual exam. Complaining of right-sided pelvic pain over the last few weeks no associated urinary or GI symptoms no vaginal discharge or bleeding. No nausea or vomiting Last Pap/HPV was negative in 04/11 Last Mammogram was BI-RADS 1 in 04/13 Last Colonoscopy was done in 04/11, the recommendation was to repeat in 2-3 years No previous DEXA scan done [facility] Medical History Osteoporosis Hypertension History of blood clot in brain Hypercholesteremia HSV-2 (herpes simplex virus 2) infection Arthritis Rheumatic fever Schizophrenia GERD (gastroesophageal reflux disease) Depression HTN (hypertension) Hyperlipemia Diabetes Surgical History Hx of colonoscopy History of tubal ligation History of cystostomy History of 2 sections Family History Sister Age: 64 Osteoarthritis Mother Cancer of lymphatic and hematopoietic tissue, Onset Age: 83 COVID-19 Father FH: heart attack Brother FH: heart attack Other Diabetes HTN (hypertension) Mental health disorder Social History Household Members: None Household Members Other:: sister Housing: Apartment Do you presently have visiting nurse or other home services: No Alcohol intake: never Patient Tobacco Use Status: Never used Tobacco e-Cigarette/Vaping Use: Never Used Second Hand Smoke Exposure: No Advance Directives Date on File: 12/05/21 service: No Current occupational status: disabled Sexual orientation: Straight/Heterosexual Gender identity: Female Cognitive needs: Yes (walker) Hearing needs: No Vision needs: Yes (glasses) Female Reproductive History Menstrual Age of Menarche: 12 Date of last pap smear: 04/04/22 Date of Mammogram: 03/21/24 Date of last Bone Density Screenin10/29/23 Review of Systems Const All systems reviewed & are unremarkable except as noted in HPI and below Card Reports as per HPI Resp Reports as per HPI GI Reports as per HPI and Reports no additional complaints Reports as per HPI Physical Exam Vital Signs: Last Vital Signs BP 118/82 02/21/25 09:41 BMI result Body Mass Index 33.4 Const General: cooperative, healthy appearing and comfortable Chest Chest palpation & inspection: normal inspection of the chest and normal palpation of entire chest wall Breast/axilla inspection: normal inspection of the breasts and normal inspection of the axillae Breast/axilla palpation: normal palpation of the breasts, normal palpation of the axillae and no axillary lymphadenopathy Resp Effort & Inspection: normal respiratory effort Auscultation: clear to auscultation bilaterally Percussion: percussion normal Cardio Palpation: normal PMI Rate: regular rate Rhythm: regular rhythm Heart sounds: no murmurs and no rubs Peripheral pulses: Peripheral pulses 2+ throughout GI Inspection: Yes normal to inspection Palpation (GI): Soft to palpation, nontender, no guarding, not rigid and No hepatosplenomegaly present Percussion: Yes normal to percussion Auscultation: normal bowel sounds Rectal Exam - Female: deferred General: Yes bladder normal to palpation External Female Exam: No lesion Speculum Exam - Vagina: normal appearance of the vagina, normal palpation, normal vaginal discharge and not erythematous Speculum Exam - Cervix: normal appearance of the cervix and normal palpation Bimanual exam- vagina & uterus: normal bimanual exam, normal palpation, uterine size normal, bladder normal to palpation, consistency normal and normal palpation Bimanual Exam- Adnexa, other: normal adnexae, no masses and no tenderness Assessment & Plan Assessment & Plan (1) Well woman exam: Code(s): Z01.419 - Encounter for gynecological examination (general) (routine) without abnormal findings Category: Medical Plan: Co testing not indicated this year Counseled the patient about the recommended dietary allowance of 1200 mg of Calcium & 800 IU of vitamin D. Mammogram ordered. Will order DEXA scan . The patient was instructed to perform monthly self-breast exams and to schedule a 2 week DEXA scan follow-up appointment and an annual exam in a year; All questions answered and the patient verbalized understanding. (2) Pelvic pain: Code(s): R10.2 - Pelvic and perineal pain Category: Medical Plan: Urine dip done in the office was negative. GC and chlamydia taken and pelvic ultrasound ordered. Discussed with the patient the differential diagnosis of pelvic pain including but not limited to adnexal, uterine masses, pelvic infections (PID), GI the (Irritable bowel syndrome, diverticulitis, others), musculoskeletal, myofascial pain abdominal wall , adhesions, endometriosis, psychological and others causes. Will check results and treat accordingly. All questions answered, the patient verbalized understanding. Instructed the patient to schedule an ultrasound and a follow-up appointment in 2 weeks. All questions answered, the patient verbalized understanding and agreed with the plan. Orders: Orders MM tomosynthesis screening BI Today Z12.31 - Encounter for screening mammogram for malignant neoplasm of breast XR DEXA axial skeleton Today Z78.0 - Asymptomatic menopausal state US pelvic and transvaginal Today R10.2 - Pelvic and perineal pain Coding Level of Care Code Est Pt Level 3 (54814) Est Pt Prev Care >65y(93122) Diagnoses Well woman exam Z01.419 Pelvic pain R10.2
[2025-02-21 09:41] VITALS: BP 118/82; BMI 33.4
== END 2025-02-21 10:41 | disposition home or self-care (01) ==
LOC: HO.HWS 08:17
PROVIDERS: PCP Internal Medicine; Visit Provider Obstetrics & Gynecology
DX: Z01.419 Encounter for gynecological examination (general) (routine) without abnormal findings (principal); R10.2 Pelvic and perineal pain
CPT/HCPCS: 99213; 99397; 99459

== ENCOUNTER 2025-02-21 08:17 | Outpatient (REF) | payer OTHER, SELFPAY ==
[2025-02-21 14:06] LABS: CT PCR NOT DETECTED (Not Detect.); NG PCR NOT DETECTED (Not Detect.)
== END 2025-02-21 08:18 | disposition home or self-care (01) ==
LOC: HO.LNP 08:17
PROVIDERS: PCP Internal Medicine; Visit Provider Obstetrics & Gynecology
DX: Z01.419 Encounter for gynecological examination (general) (routine) without abnormal findings (principal); R10.2 Pelvic and perineal pain; Z78.0 Asymptomatic menopausal state
CPT/HCPCS: 87491; 87591; 99212; 99397; 99459

== ENCOUNTER 2025-02-24 07:04 | Outpatient (AMB) | payer OTHER, SELFPAY ==
--- OUTSIDE RECORDS SUMMARY | 2025-02-24 07:07 | XMS_ITS | Continuity of Care Document ---
Author Organization [facility], [facility] Address [address] [place] [address] Phone Care Team Providers Care Silviculture Forester Name Role Phone Gerard Valdes CNP Unavailable [...] 82may occur.Performed at [facility] [id number] [facility] [id number] Panel Description: Microscop ic observation [Identifier] in Cervix by Cyto stain.thin prep Final PAP, THIN PREP WITH IMAGING 2019 12:52:1 1 SEE COMMENT Final Final Cytologic Interpretation ThinPrep Pap Test (Cervical): Satisfactory for evaluation. NEGATIVE FOR INTRAEPITHELIAL LESION OR MALIGNANCY. The cytologic changes of atrophy are noted. [facility]/11/20/2019Interpret [place]ion [place] [address], License number: [id number]. Electronically Signed Out By JASON Steele(ASCP) Date of Last Menstrual Period: (None Given) Other Clinical Conditions:Z11.51 Screening for HPVZ12.4 Screening for malignant neoplasm of cervixPostmenopausal Source of Specimen ThinPrep Pap Test (Cervical) Thin Prep Pap (DINKEY OPERATOR) Fee Code(s): G0145 The Pap test is a screening test with an inherent, but low,probability of error. The Pap test is primarily effective for thediagnosis and prevention of squamous cell carcinoma. Regular screeningis critical for prevention. ThinPrep liquid-based slides, which meet the Dynamics Ax Consultant criteria forautomated screening, have been screened by the [place] [facility] Institute[facility] [facility](as of 06/07/07) along with an additional manual rescreening by acytotechnologist and, if indicated, by a pathologist. Pathology [facility] [address] [place] [address] [id number] No. [id number] CAP Accreditation No. [id number] Director: Randal Briones M.D. 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 [address] [place] [address], [id number] , [place]. tel: [phone] Referring Provider: Gutierrez Collins, [address] [place] [address], [id number] . tel:[phone] PREV VISIT, EST, AGE 40-64 [facility], [address] [place] [address], [id number] , [place] tel: [phone] [facility] annual exam (chief complaint) Routine odd job laborer examinationScreening for HPV (human papillomavirus) 5 Geno Ugarte. [address] [place] [address] [place], [place], [id number] . tel: [phone] Referring Provider: Torito Moon, [address] [place] [address] [place], [address] . tel:[phone] OFFICE/OUTPA TIENT VISIT, EST [facility], [address] [place] [address], [id number] , [place] tel: [phone] [facility] PAP repeat (chief complaint) Symptom associated with female genital organsPap smear cannot exclude high grade squamous intraepithelial lesion (ASC-H) 4 Kwadwo Whitley. [address] [place] [address], [id number] . tel: [phone] Referring Provider: Gutierrez Collins, [address] [place] [address], [id number] . tel:[phone] PREV VISIT, EST, AGE 40-64 [facility], [address] [place] [address], [id number] , [place] tel: [phone] [facility] annual [facility] (chief complaint) Moderate dysplasia of cervix (DESI II)Gynecological Examination 3 Kwadwo Whitley. [address] [place] [address], [id number] . tel: [phone] Referring Provider: Gutierrez Burkett MD W, [address] [place] [address], [id number] . tel:[phone] OFFICE/OUTPA TIENT VISIT, [facility] [employer] [facility], [address] [place] [address], [id number] , [place] tel: [phone] [facility] repeat pap (chief complaint) DYSPLASIA OF CERVIX NOSDYSPLASIA OF CERVIX NOS 3 Kwadwo Whitley. [address] [place] [address], [id number] . tel: [phone] Referring Provider: Gutierrez Burkett MD W, [address] [place] [address], [address] . tel:[phone] [facility], [address] [place] [address], [id number] , [place] tel: [phone] [facility] No Information 3 Kwadwo Whitley. [address] [place] [address], [id number] . tel: [phone] OFFICE/OUTPA TIENT VISIT, [facility], [address] [place] [address], [id number] , [place] tel: [phone] [facility] No Information 3 Kwadwo Whitley. [address] [place] [address], [id number] . tel: [phone] Referring Provider: Gutierrez Collins, [address] [place] [address], [address] . tel:[phone] OFFICE/OUTPA TIENT VISIT, [facility], [address] [place] [address], [id number] , [place] tel: [phone] [facility] No Information 2 Kwadwo Whitley. [address] [place] [address], [id number] . tel: [phone] Referring Provider: Gutierrez Burkett MD W, [address] [place] [address], [place], [address] . tel:[phone] OFFICE/OUTPA TIENT VISIT, [facility], [address] [place], [place] [address], [place], [place], [id number] , [place] tel: [phone] [facility] No Information 2 Kwadwo Whitley. [address] [place] [address], [place], [place], [id number] . tel: [phone] Referring Provider: Gutierrez Burkett MD W, [address] [place], [place] [address] [facility], [place], [address] . tel:[phone] [facility], [address] [place], [place] [address] [facility], [place], [place], [id number] , [place] tel: [phone] [facility] No Information 2 Kwadwo Whitley. [address] [place] [address], [id number] . tel: [phone] Referring Provider: Gutierrez Burkett MD W, [address] [place], [place] [address], [address] . tel:[phone] OFFICE/OUTPA TIENT VISIT, [facility], [address] [place], [place] [address] [facility], [place], [place], [id number] , [place] tel: [phone] [facility] No Information 2 Kwadwo Whitley. [address] [place] [address], [id number] . tel: [phone] Referring Provider: Gutierrez Collins, [address] [place], [address] . tel:[phone] Family History Family Member Type Diagnosis Age At Onset No Information Immunizations Vaccine Date Status Comments Flu (split) (3 yrs or older) administered Note: Invalid documented admin date was . ; Source: Other Provider Payers Payer name Insurance type Covered libertarian ID Socrates Galarza (s) [id number] Social History Type Description Quantity Date Captured [...] information: ptreturns after 5 years, very limited Bruneian-accompanied by her , also limited Bruneian. h/o ASC_H pap with neg biopsies, neg pap in 2012, 2013 and 2014. will repeat today. unsure of last mammogram. 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 Reason For Referral Reason For Referral No Information Plan Of Treatment Date Type Action Status Goal Mammogram (Scree natalya); Bilateral. Due on due Goal Colonoscopy Scre en. Due on due Future Order: Radiology Order Ma mmogram, Screening ([id number]), Ordered on: Ordered Future Order: Lab Order PAP (TP) - IMAGE GUIDED ([id number]), Ordered on: Ordered History Of Present Illness [...] pt returns after 5 years, very limited Bruneian-accompanied by her , also limited [place]uneian. h/o ASC_H pap with neg biopsies, neg pap in 2012, 2013 and 2014. will repeat today. unsure of last mammogram. 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 annual exam Currently pregna nt: no. [...] return to once yearly. 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 Patient Care Teams Name Effective Dates (start - stop) Status Members No Information
--- NOTE | 2025-02-24 07:27 | MHC.OFFVIS ---
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 Language: Community Center Worker Name: voice coulter [id number] Allergies Penicillins Allergy (Intermediate, Verified 04/10/25 17:47) rash/swelling shellfish derived Allergy (Intermediate, Verified 04/10/25 17:47) Swelling, Hives Medication List - Last Reconciled 02/24/25 by Pavan Cooney MD acetaminophen 500 mg PO Q6H PRN 30 days acyclovir 400 mg PO TID 30 days amitriptyline 5 mg PO BEDTIME amlodipine 2.5 mg PO DAILY atorvastatin 10 mg PO DAILY 90 days blood sugar diagnostic (AnafocusStyle Test strips) As directed three times a day blood-glucose meter (Biart Autocode Meter kit) As directed blood-glucose meter (AnafocusStyle Lite Meter kit) As directed divalproex ER 1,000 mg (2 x 500 mg) PO BEDTIME 90 days dulaglutide (Trulicity) 1.5 mg (0.5 mL) subcut FR furosemide 40 mg PO DAILY guaifenesin ER (Mucinex) 600 mg PO BID 5 days insulin aspart U-100 (Novolog FlexPen U-100 Insulin aspart) 10 units (0.1 mL) subcut TID 90 days insulin glargine (Lantus Solostar U-100 Insulin) 48 units (0.48 mL) subcut DAILY 90 days lancets (Biart Lancets) Use 1 lancet four times a day lisinopril 40 mg (2 x 20 mg) PO DAILY 90 days metoprolol succinate ER 25 mg PO DAILY omeprazole 20 mg PO DAILY ondansetron 4 mg PO Q6-8H PRN pen needle, diabetic (1st Tier Unifine Pentips) Use 1 pen needle three times a day polyethylene glycol 3350 (Miralax) 17 grams PO DAILY ropinirole 1 mg PO BEDTIME sennosides-docusate sodium 8.6-50 mg (Senna with Docusate Sodium) 1 tab PO Q2D@2100 sulfamethoxazole-trimethoprim 800-160 mg (Bactrim DS) 1 tab PO BID tolterodine ER 2 mg PO DAILY 90 days walker As directed HPI HPI ED follow up: Details: GI clinic visit for this 65 year old Salvadorean-speaking female for FU recent hospitalization at [facility] from 01/19/2025 to 01/25/2025: 65-year-old female with pertinent history of insulin-dependent diabetes mellitus with diabetic neuropathy, hypertension, mixed hyperlipidemia, mood disorder, gastroesophageal reflux disease, lower extremity edema, restless leg syndrome who presents to [facility] ED for evaluation of abdominal pain. Patient states abdominal pain started 1 day prior to presentation. She started having epigastric abdominal discomfort which was constant, nonradiating and without any relieving factors. Also had associated nausea and multiple episodes of nonbloody emesis. Her symptoms were progressive and no similar symptoms or history of pancreatitis in the past. No documented fever or chills. No chest pain, palpitations, shortness of breath, changes in urinary or bowel habits. Patient denies alcohol use. In the emergency department, lipase elevated and imaging concerning for acute interstitial pancreatitis. Also noticed fluid around gallbladder but negative sonographic Mendieta's sign. Total bilirubin 3.4, AST 309, ALT 255 and alkaline phosphatase 211. 65-year-old woman treated for acute interstitial pancreatitis with cholestasis and Enterobacter bacteremia. She was treated with IV fluids, initially started on clear liquid diet. Imaging studies showed no cholecystitis, she had elevated LFTs initially but did trend down. Echocardiogram showed low-normal systolic function with no valvular pathology. She was treated with cefepime IV and plan will be to send her home with Bactrim as per ID. She may need repeat MRI of the pancreas in 4 weeks to see resolution of inflammation. Patient is tolerating a regular diet and she will be sent home to complete antibiotics. Acute lactic acidosis. Trended down with IV fluids. Diabetes mellitus type 2. Continue home medications Hypertension. Continue amlodipine, lisinopril, metoprolol Hyperlipidemia. Continue statin GERD. 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 PAST VISITS: Patient cc: acid reflex and constipation. Denies any other GI issues for today visit. Continues to have constipation Has a BM twice a week Taking Senna 1 tab at bedtime and advised to increase to 2 tab daily Noted rectal bleeding in Nov and lasted 5 days Had bleeding again in Dec and lasted 4 days Denies rectal or anal pain when she has the bleeding. Blood is light red and is separate from the stool [facility] : reviewed IMAGING STUDIES: Reviewed ENDOSCOPIC STUDIES: 04/29/24 COLONOSCOPY SHOWED: Three small and four medium sized polyps were removed Moderate diverticulosis seen in the sigmoid colon Plan: Repeat Colonoscopy in 2 years if polyps are adenomatous and 10 year if polyps are hyperplastic. BIOPSIES SHOWED: A. Colon, cecal polyps: Tubular adenoma (1 piece); negative for high-grade dysplasia and carcinoma, and polypoid colonic mucosa with scant hyperplastic changes consistent with hyperplastic polyp (1 piece). B. Colon, ascending, polyps: Tubular adenomas (1 piece); negative for high-grade dysplasia and carcinoma, and sessile serrated lesion/polyp without dysplasia (1 piece). C. Colon, transverse, polyp: Tubular adenoma; negative for high-grade dysplasia and carcinoma. D. Colon, left sigmoid, polyp: Tubular adenoma; negative for high-grade dysplasia and carcinoma. PAST VISIT: Colon results reviewed with the patient. Pt complains of chronic constipation and has a BM Denies taking any medication for constipation. Patient denies symptoms of heartburn, dysphagia, nausea, vomiting, change in appetite or weight. Denies recent change in bowel habits, diarrhea, black stools or rectal bleeding. Patient denies major cardiac or pulmonary problems, loud snoring or sleep apnea Denies problems with anesthesia in the past. Denies being on chronic anticoagulation. Patient denies known family history of colon polyps, colon cancer or other GI malignancies [facility] Medical History Class 1 obesity Anxiety Atypical pneumonia Pneumonitis Nausea Abdominal pain Osteoporosis Hypertension History of blood clot in brain Hypercholesteremia HSV-2 (herpes simplex virus 2) infection Arthritis Rheumatic fever Schizophrenia GERD (gastroesophageal reflux disease) Depression HTN (hypertension) Hyperlipemia Diabetes Surgical History Hx of colonoscopy History of tubal ligation History of cystostomy History of 2 sections Family History (Reviewed 03/31/25 @ 14:37 by Regina Boland [facility]) Sister Age: 64 Osteoarthritis Mother Cancer of lymphatic and hematopoietic tissue, Onset Age: 83 COVID-19 Father FH: heart attack Brother FH: heart attack Other Diabetes HTN (hypertension) Mental health disorder Social History Household Members: None Household Members Other:: sister Housing: Apartment Do you presently have visiting nurse or other home services: Yes (BOX [employer]ACKER) Alcohol intake: never Patient Tobacco Use Status: Never used Tobacco Smoked in Last 30 Days: No e-Cigarette/Vaping Use: Never Used Second Hand Smoke Exposure: No Use of substances other than those prescribed or required for medical reasons: No Currently Displaying Signs/Symptoms of Drug Intoxication Withdrawal: No Have you been hit, kicked, punched, or otherwise hurt by someone within the past year? If so, by whom?: No Do you feel safe in your current relationship?: No Current Relationship Is there a partner from a previous relationship who is making you feel unsafe now?: No Are you made to feel afraid or neglected: No Advance Directives: Yes (HCP) Advance Directives on File: Yes Advance Directives Date on File: 02/08/24 Do you have thoughts of harming others: None Do you have a plan to hurt others: No Plan Recently lost weight without trying: Yes How much weight loss: Unsure Eating poorly because of decreased appetite: Yes Nutrition screen score: 5 Nutrition Risks: Poor intake 0-25% >4 days Patient : No : No Poor oral hygiene: No service: No Current occupational status: disabled Sexual orientation: Straight/Heterosexual Gender identity: Female Cognitive needs: Yes (walker) Hearing needs: No Vision needs: Yes (glasses) Female Reproductive History Menstrual Age of Menarche: 12 Review of Systems Const All systems reviewed & are unremarkable except as noted in HPI and below ENT Reports dizziness Card Denies chest pain, Denies chest pain at rest, Denies chest pain with activity, Denies rapid heart rate, Denies pedal edema, Denies edema, Denies leg edema, Denies lightheadedness, Denies palpitations, Denies dyspnea, Denies dyspnea on exertion and Denies orthopnea Resp Denies cough, Denies dyspnea and Denies dyspnea on exertion GI Denies hematochezia and Denies change in stool character Musc Denies abnormal gait, Reports limited range of motion, Reports muscle cramps, Denies muscle weakness, Denies numbness, Denies radiating pain into limb, Denies stiffness and Denies tingling Neuro Denies abnormal gait, Reports dizziness, Denies numbness and Denies tingling Endo Denies palpitations Physical Exam Vital Signs: Last Vital Signs Pulse 72 02/24/25 07:31 BP 175/74 H 02/24/25 07:31 BMI result Body Mass Index 34.2 Const General: healthy appearing and no acute distress Nutritional Appearance: obese Orientation/consciousness: patient oriented x3 Limitations: language barrier HEENT Head: Yes normal to inspection Ears: hearing grossly normal bilaterally Mouth: Normal oral and palatal mucosa present Eyes Sclerae: sclerae normal Pupils: Equal, round and reactive pupils present Neck Neck: Yes normal visual inspection Chest Chest palpation & inspection: normal inspection of the chest Resp Effort & Inspection: normal respiratory effort Auscultation: clear to auscultation bilaterally Cardio Palpation: normal PMI Rate: regular rate Rhythm: regular rhythm Heart sounds: S1 normal heart sound present, S2 normal heart sound present and no murmurs GI Palpation (GI): Soft to palpation, Tenderness to palpation present (GI) (Mild epigastric tenderness without rebound) and No hepatosplenomegaly present Auscultation: normal bowel sounds Rectal Exam - Female: deferred Skin General skin exam: no rashes or lesions noted Neuro General: patient oriented x3, gait normal and moves all extremities Cranial nerves: Yes Equal, round and reactive pupils present Psych Appearance: grossly normal Mental Status: mental status grossly normal Assessment & Plan Assessment & Plan (1) GERD (gastroesophageal reflux disease): Code(s): K21.9 - Gastro-esophageal reflux disease without esophagitis Category: Medical Qualifiers: Esophagitis presence: without esophagitis Qualified Code(s): K21.9 - Gastro-esophageal reflux disease without esophagitis (2) Chronic constipation: Code(s): K59.09 - Other constipation Category: Medical (3) Acute pancreatitis: Code(s): K85.90 - Acute pancreatitis without necrosis or infection, unspecified Category: Medical Plan 65 year old Salvadorean-speaking female followed in GI for chronic constipation and colon polyps removed during recent colonoscopy 04/29/24 COLONOSCOPY SHOWED: Three small and four medium sized polyps were removed Moderate diverticulosis seen in the sigmoid colon Plan: Repeat Colonoscopy in 2 years if polyps are adenomatous and 10 year if polyps are hyperplastic. BIOPSIES SHOWED: A. Colon, cecal polyps: Tubular adenoma (1 piece); negative for high-grade dysplasia and carcinoma, and polypoid colonic mucosa with scant hyperplastic changes consistent with hyperplastic polyp (1 piece). B. Colon, ascending, polyps: Tubular adenomas (1 piece); negative for high-grade dysplasia and carcinoma, and sessile serrated lesion/polyp without dysplasia (1 piece). C. Colon, transverse, polyp: Tubular adenoma; negative for high-grade dysplasia and carcinoma. D. Colon, left sigmoid, polyp: Tubular adenoma; negative for high-grade dysplasia and carcinoma. 12/20/24 Patient advised to take Miralax once a day and increase senna to 2 tab at bedtime for constipation. 02/24/25 Denies recent upper abd pain - feels a bit swollen Complains of hard stools - taking Senna 2 pills at night and a glass of liquid. Pt advised to schedule an MRI and an EGD Follow-up in 3 month Orders: Orders MR abdomen wo/w con 02/24/25 K85.90 - Acute pancreatitis without necrosis or infection, unspecified Coding Level of Care Code Est Pt Level 4 (65630) Diagnoses Gastroesophageal reflux disease without esophagitis K21.9 Esophagitis presence: without esophagitis Chronic constipation K59.09 Acute pancreatitis K85.90 Time Spent (min) 23
[2025-02-24 07:31] VITALS: BP 175/74; PULSE 72; BMI 34.2
== END 2025-02-24 08:01 | disposition home or self-care (01) ==
LOC: HO.HGI 07:05
PROVIDERS: PCP Internal Medicine; Visit Provider Internal Medicine Gastroenterology
DX: K21.9 Gastro-esophageal reflux disease without esophagitis (principal); K59.09 Other constipation; K85.90 Acute pancreatitis without necrosis or infection, unspecified
CPT/HCPCS: 99214

== ENCOUNTER → 2025-02-24 07:04 | Outpatient (BNVA) | payer OTHER, SELFPAY | PROVIDERS: PCP Internal Medicine; Visit Provider Internal Medicine Gastroenterology | DX: Z09 Encounter for follow-up examination after completed treatment for conditions other than malignant neoplasm (principal); K85.90 Acute pancreatitis without necrosis or infection, unspecified; K21.9 Gastro-esophageal reflux disease without esophagitis; K59.09 Other constipation | CPT/HCPCS: 99212 ==

== ENCOUNTER 2025-02-24 15:54 | Emergency (ER) | payer OTHER, SELFPAY ==
--- NOTE | ~2025-02-24 | XR_ITS ---
CLINICAL HISTORY: pain --- Additional Notes or Special Instructions: constipation 1 view abdomen Comparison: CT/OR/SR - CT ABDOMEN PELVIS W IV CON - 01/19/25 14:00 EDT Findings: Moderate stool burden. No bowel obstruction. No pneumoperitoneum or pneumatosis. No abnormal calcifications. No acute fractures. IMPRESSION: Moderate stool burden. This document has been electronically signed by: Gaye Lai MD on 02/24/2025 23:08:02
[2025-02-24 16:14] VITALS: BP 142/82; PULSE 77; RESP 16; TEMP 36.9; O2SAT 95; BMI 29.7
--- NOTE | 2025-02-24 16:15 | ED.GENADULT ---
HPI - General Adult General Chief complaint: Abdominal Pain Stated complaint: abd pain hx of it Time Seen by Provider: 02/24/25 21:20 Source: patient Limitations: language barrier History of Present Illness ED Provider: Alla Pimentel PA-C HPI narrative: 65-year-old female with a history of morbid obesity, chronic constipation, schizophrenia,hyperlipidemia, hypertension, diabetes, GERD, hypothyroidism, chronic pain, polyarthralgia, who presents with the abdominal pain. Pain over lower abdomen, unable to describe the nature of her discomfort, has been present for 3 days. denies nausea, vomiting, diarrhea or fever. Patient states she is always constipated. Denies distention, or inability to pass flatus from below. Patient states she was seen in the ER 1-1/2 weeks ago for same symptoms. Related Data Home Medications ?Medication ?Instructions ?Recorded ?Confirmed amitriptyline 10 mg tablet 5 mg PO BEDTIME 01/19/25 02/24/25 amlodipine 5 mg tablet 2.5 mg PO DAILY 01/19/25 02/24/25 polyethylene glycol 3350 17 17 g PO DAILY Constipation 01/19/25 02/24/25 gram/dose oral powder (Miralax) ropinirole 0.25 mg tablet 1 mg PO BEDTIME 01/19/25 02/24/25 sennosides 8.6 mg-docusate sodium 1 tab PO Q2D@2100 01/19/25 02/24/25 50 mg tablet (Senna with Docusate Sodium) Previous Rx's ?Medication ?Instructions ?Recorded acetaminophen 500 mg capsule 500 mg PO Q6H PRN fever 30 days 06/24/23 #120 caps blood-glucose meter (Prodigy #1 ea 02/08/24 Autocode Meter kit) lancets 28 gauge (Prodigy Lancets) #100 ea 02/08/24 walker #1 ea 07/26/24 blood-glucose meter (FreeStyle #1 ea 11/29/24 Lite Meter kit) atorvastatin 10 mg tablet 10 mg PO DAILY 90 days #90 tabs 12/13/24 furosemide 40 mg tablet 40 mg PO DAILY #90 tabs 12/13/24 blood sugar diagnostic (FreeStyle #100 ea 12/20/24 Test strips) tolterodine 2 mg capsule,extended 2 mg PO DAILY 90 days #90 caps 01/04/25 release 24 hr metoprolol succinate 25 mg 25 mg PO DAILY #30 tabs 01/06/25 tablet,extended release 24 hr ondansetron 4 mg disintegrating 4 mg PO Q6-8H PRN nausea and 01/16/25 tablet vomiting #7 tabs sulfamethoxazole 800 1 tab PO BID #8 tabs 01/25/25 mg-trimethoprim 160 mg tablet (Bactrim DS) acyclovir 400 mg tablet 400 mg PO TID 30 days #90 tabs 02/04/25 divalproex 500 mg tablet,extended 1,000 mg (2 x 500 mg) PO BEDTIME 02/04/25 release 24 hr 90 days #180 tabs dulaglutide 1.5 mg/0.5 mL 1.5 mg (0.5 mL) subcut FR #2 mL 02/04/25 subcutaneous pen injector (Trulicity) insulin aspart U-100 100 unit/mL 10 unit (0.1 mL) subcut TID 90 02/04/25 (3 mL) subcutaneous pen (Novolog #27 mL FlexPen U-100 Insulin aspart) lisinopril 20 mg tablet 40 mg (2 x 20 mg) PO DAILY 90 days 02/04/25 #180 tabs omeprazole 20 mg capsule,delayed 20 mg PO DAILY #90 caps 02/04/25 release pen needle, diabetic 32 gauge x #100 ea 02/04/25 (1st Tier Unifine Pentips) insulin glargine 100 unit/mL (3 48 unit (0.48 mL) subcut DAILY 90 02/14/25 mL) subcutaneous pen (Lan #43.2 mL Solostar U-100 Insulin) guaifenesin 600 mg tablet, 600 mg PO BID 5 days #10 tabs 02/15/25 extended release 12 hr (Mucinex) docusate sodium 100 mg capsule 100 mg PO BID #10 caps 02/24/25 (Colace) polyethylene glycol 3350 17 17 g PO QID #238 grams 02/24/25 gram/dose oral powder (Miralax) Allergies Allergy/AdvReac Type Severity Reaction Status Date / Time Penicillins Allergy Intermediate rash/swelli Verified 02/24/25 16:19 ng shellfish derived Allergy Intermediate Swelling, Verified 02/24/25 16:19 Hives Review of Systems Review of Systems: Yes all other systems are reviewed and are negative Constitutional: Constitutional: Denies fatigue and Denies fever(s) Cardiovascular: Cardiovascular: Denies chest pain and Denies dyspnea Respiratory: Respiratory: Denies dyspnea Gastrointestinal: Gastrointestinal: Reports abdominal pain, Reports constipation, Denies diarrhea, Denies nausea and Denies vomiting Endocrine: Endocrine: Denies fatigue [facility] Past Medical History Attestation statement: The following information was validated with the patient. Medical History Osteoporosis Hypertension History of blood clot in brain Hypercholesteremia HSV-2 (herpes simplex virus 2) infection Arthritis Rheumatic fever Schizophrenia GERD (gastroesophageal reflux disease) Depression HTN (hypertension) Hyperlipemia Diabetes Surgical History Hx of colonoscopy History of tubal ligation History of cystostomy History of 2 sections Family History Family History Sister Age: 64 Osteoarthritis Mother Cancer of lymphatic and hematopoietic tissue, Onset Age: 83 COVID-19 Father FH: heart attack Brother FH: heart attack Other Diabetes HTN (hypertension) Mental health disorder Social History Social History Household Members: None Household Members Other:: sister Housing: Apartment Do you presently have visiting nurse or other home services: No Alcohol intake: never Patient Tobacco Use Status: Never used Tobacco e-Cigarette/Vaping Use: Never Used Second Hand Smoke Exposure: No Advance Directives: Yes Advance Directives on File: Yes Advance Directives Date on File: 02/08/24 Do you have a plan to hurt others: No Plan service: No Current occupational status: disabled Sexual orientation: Straight/Heterosexual Gender identity: Female Cognitive needs: Yes (walker) Hearing needs: No Vision needs: Yes (glasses) Physical Exam ED Vital Signs: Vital Signs - 24 hr 02/24/25 16:14 02/24/25 21:44 Temperature 98.4 F Pulse Rate 77 71 Respiratory Rate 16 14 Blood Pressure 142/82 H 160/81 H Pulse Oximetry 95 99 Oxygen Delivery Method Room Air Room Air BMI result Body Mass Index 29.7 Const Other: Alert Orientation/consciousness: patient oriented x3 Resp Effort & Inspection: normal respiratory effort Cardio Other: normal peripheral perfusion GI Other: abdomen is soft, obese, nondistended, mild tenderness across entire abdomen, no guarding nonfocal exam Skin Other: warm dry no rash Neuro General: patient oriented x3, gait normal, no focal motor deficits and CN's II-XI intact bilaterally Psych Other: cooperative Course Course Course Narrative: 02/24/25 1616 SUZE Siddiqi This is a Rapid Medical Examination (RME) performed by Rogelio Naidu PA-C in triage. Full HPI, ROS, assessment and treatment plan per primary provider in the Main ED. Hx: 65 yo [place] islander speaking F hx insulin-dependent diabetes mellitus with diabetic neuropathy, hypertension, mixed hyperlipidemia, mood disorder, gastroesophageal reflux disease, lower extremity edema, restless leg syndrome here for eval of abdominal pain that began after pelvic exam done by OBGYN doctor yesterday. was told if pain continues, to come to the ED. no N/V/D. she had an appointment w/ her GI doctor today who ordered outpatient imaging scheduled for next month. Plan: labs UA Medical Decision Making Medical Decision Making [facility] Narrative: 65-year-old female with a history of morbid obesity, chronic constipation, schizophrenia,hyperlipidemia, hypertension, diabetes, GERD, hypothyroidism, chronic pain, polyarthralgia, who presents with the abdominal pain. Pain over lower abdomen, unable to describe the nature of her discomfort, has been present for 3 days. denies nausea, vomiting, diarrhea or fever. Patient states she is always constipated. Denies distention, or inability to pass flatus from below. Patient states she was seen in the ER 1-1/2 weeks ago for same symptoms. problem: Psychiatric illness, chronic pain, chronic constipation, obesity History: Per patient I have considered the following differential diagnoses: Constipation, bowel obstruction, fecal impaction, diverticulitis, appendicitis, UTI Plan: Patient is likely constipated, screening labs obtained from triage are unremarkable. She has pain across entire lower abdomen with a nonfocal exam that has benign. Doubtful to be appy, diverticulitis or UTI. Obtaining a KUB I have independently reviewed the following tests: Labs: No leukocytosis, not anemic, no electrolyte abnormality noted, urine not infected KUB:Findings: Moderate stool burden. No bowel obstruction. No pneumoperitoneum or pneumatosis. No abnormal calcifications. No acute fractures. IMPRESSION: Moderate stool burden. Lab Data 02/24/25 16:35 02/24/25 16:35 Labs: Lab Results 02/24/25 Range/Units 16:35 WBC 8.8 (4.8-10.8) X10*3/uL RBC 4.28 (4.20-5.50) X10*6/uL Hgb 12.0 (12.0-16.0) g/dl Hct 36.7 L (37.0-47.0) % MCV 85.7 (80.0-98.0) fL MCH 28.0 (27.0-33.0) pg MCHC 32.7 (31.0-35.0) g/dl RDW 14.0 (11.0-16.0) % Plt Count 260 D (160-400) X10*3/uL MPV 10.1 (9.4-12.3) fL Immature Gran % (Auto) 0.5 H (0.0-0.4) % Neut % (Auto) 47.3 (45-73) % Lymph % (Auto) 42.9 H (20-40) % [place] % (Auto) 7.1 (2-11) % Eos % (Auto) 1.9 (0-4) % Baso % (Auto) 0.3 (0-2) % Lymph # (Auto) 3.8 (1.2-4.9) X10*3/uL [place] # (Auto) 0.6 (0.1-1.2) X10*3/uL Eos # (Auto) 0.2 (0.0-0.4) X10*3/uL Baso # (Auto) 0.0 (0.0-0.2) X10*3/uL Abs Immat Gran (auto) 0.04 H (0.00-0.03) X10*3/uL Absolute Neuts (auto) 4.2 (2.0-8.3) x10*3/uL Absolute Nucleated RBC 0.000 (0.0-0.012) X10*3/uL Nucleated RBC % (auto) 0.0 (0.0-0.2) /100WBC Sodium 141 (135-145) mmol/L Potassium 3.9 (3.3-5.1) mmol/L Chloride 101 (96-108) mmol/L Carbon Dioxide 31 H (22-29) mmol/L Anion Gap 13 (12-20) BUN 19 H (9-16) mg/dL Creatinine 0.95 (0.5-1.4) mg/dL Estim Creat Clear Calc 59.1 Estimated GFR 59 Random Glucose 137 H (60-115) mg/dL Calcium 9.5 (8.4-10.2) mg/dL Magnesium 1.8 (1.6-2.6) mg/dL Total Bilirubin 0.2 (0.0-1.0) mg/dL AST 18 (5-31) U/L ALT 10 (0-31) U/L Alkaline Phosphatase 104 (39-117) U/L Total Protein 6.7 (6.5-8.0) g/dL Albumin 4.0 (3.5-5.0) g/dL Lipase 41 (8-78) U/L Discharge Plan Discharge Clinical Impression: Constipation Patient Disposition: Home, Self-Care Instructions: Constipation (ED) Additional Instructions: all of your labs were normal including a urinalysis. The x-ray revealed that you are constipated. See home care instructions. Use the Colace as directed, take it twice a day. Use the MiraLax as directed take it 4 times a day until you begin having multiple large volume bowel movements. You need to stay on a bowel regimen, you have chronic constipation. Once you clear your current stool burden, use the Colace every day, use the MiraLax once a day, this will help maintain regular bowel movements. Follow up with your primary care provider as needed. Prescriptions: New docusate sodium [Colace] 100 mg capsule 100 mg PO BID Qty: 10 0RF polyethylene glycol 3350 [Miralax] 17 gram/dose powder 17 g PO QID Qty: 238 0RF No Action acetaminophen 500 mg capsule 500 mg PO Q6H PRN (Reason: fever) 30 Days Qty: 120 1RF (DME) lian Kaiser See Rx Instructions .Route Qty: 1 0RF Rx Instructions: As directed (DME) blood-glucose meter [FreeStyle Lite Meter] Kit See Rx Instructions .Route Qty: 1 0RF Rx Instructions: As directed atorvastatin 10 mg tablet 10 mg PO DAILY 90 Days Qty: 90 0RF furosemide 40 mg tablet 40 mg PO DAILY Qty: 90 3RF (DME) FreeStyle Test Strip See Rx Instructions .Route Qty: 100 6RF Rx Instructions: As directed three times a day tolterodine 2 mg capsule,extended release 24hr 2 mg PO DAILY 90 Days Qty: 90 1RF ondansetron 4 mg tablet,disintegrating 4 mg PO Q6-8H PRN (Reason: nausea and vomiting) Qty: 7 0RF omeprazole 20 mg capsule,delayed release(DR/EC) 20 mg PO DAILY Qty: 90 0RF lisinopril 20 mg tablet 40 mg PO DAILY 90 Days Qty: 180 0RF divalproex 500 mg tablet extended release 24 hr 1,000 mg PO BEDTIME 90 Days Qty: 180 0RF insulin aspart U-100 [Novolog FlexPen U-100 Insulin] 100 unit/mL (3 mL) insulin pen 10 unit subcut TID 90 Days Qty: 27 0RF (DME) pen needle, diabetic [1st Tier Unifine Pentips] 32 gauge x 5/32 needle See Rx Instructions .Route Qty: 100 0RF Rx Instructions: Use 1 pen needle three times a day Trulicity 1.5 mg/0.5 mL pen injector 1.5 mg subcut FR Qty: 2 0RF acyclovir 400 mg tablet 400 mg PO TID 30 Days Qty: 90 0RF insulin glargine [Lantus Solostar U-100 Insulin] 100 unit/mL (3 mL) insulin pen 48 unit subcut DAILY 90 Days Qty: 43.2 0RF guaifenesin [Mucinex] 600 mg tablet extended release 12hr 600 mg PO BID 5 Days Qty: 10 0RF amlodipine 5 mg tablet 2.5 mg PO DAILY sennosides-docusate sodium [Senna with Docusate Sodium] 8.6-50 mg tablet 1 tab PO Q2D@2100 Rx Instructions: Please take 2 tab every day at bedtime ropinirole 0.25 mg tablet 1 mg PO BEDTIME amitriptyline 10 mg tablet 5 mg PO BEDTIME polyethylene glycol 3350 [Miralax] 17 gram/dose powder 17 g PO DAILY sulfamethoxazole-trimethoprim [Bactrim DS] 800-160 mg tablet 1 tab PO BID Qty: 8 0RF (DME) blood-glucose meter [Balakam Autocode Meter] Kit See Rx Instructions .Route Qty: 1 0RF Rx Instructions: As directed (DME) lancets [Prodigy Lancets] 28 gauge misc See Rx Instructions .Route Qty: 100 11RF Rx Instructions: Use 1 lancet four times a day metoprolol succinate 25 mg tablet extended release 24 hr 25 mg PO DAILY Qty: 30 5RF Rx Instructions: Stop amlodipine Start metoprolol Interventions: ED Discharge Assessment Last Done: 02/25/25 00:07 Discharge Date/Time: 02/25/25 00:08 Print Language: Gambian
[2025-02-24 16:39] LABS: MANUAL DIFF FLAG NO
[2025-02-24 16:40] LABS: Basophils Percent Auto 0.3 % (0-2); Eosinophils Absolute Auto 0.2 X10*3/uL (0.0-0.4); Eosinophils Percent Auto 1.9 % (0-4); Hematocrit 36.7 % (37.0-47.0); Imm Gran Abs Auto 0.04 X10*3/uL (0.00-0.03); Imm Gran Pct Auto 0.5 % (0.0-0.4); Lymphocytes Absolute Auto 3.8 X10*3/uL (1.2-4.9); Lymphocytes Percent Auto 42.9 % (20-40); Mean Corpuscular HGB Conc 32.7 g/dl (31.0-35.0); Mean Corpuscular Volume 85.7 fL (80.0-98.0); Mean Platelet Volume 10.1 fL (9.4-12.3); Monocytes Absolute Auto 0.6 X10*3/uL (0.1-1.2); Monocytes Percent Auto 7.1 % (2-11); Neutrophils Absolute Auto 4.2 x10*3/uL (2.0-8.3); Neutrophils Percent Auto 47.3 % (45-73); Platelet Count 260 X10*3/uL (160-400); Red Blood Count 4.28 X10*6/uL (4.20-5.50); White Blood Count 8.8 X10*3/uL (4.8-10.8)
[2025-02-24 17:00] LABS: Alanine Aminotransferase 10 U/L (0-31); Anion Gap 13 (12-20); Aspartate Amino Transferase 18 U/L (5-31); Bilirubin Total 0.2 mg/dL (0.0-1.0); Blood Urea Nitrogen 19 mg/dL (9-16); Calcium 9.5 mg/dL (8.4-10.2); Carbon Dioxide 31 mmol/L (22-29); Chloride 101 mmol/L (96-108); Creatinine Clr Calc Pharmacy 59.1; Estimated Glomerular Filt Rate 59; Glucose Random 137 mg/dL (60-115); Lipase 41 U/L (8-78); Magnesium 1.8 mg/dL (1.6-2.6); Potassium 3.9 mmol/L (3.3-5.1); Sodium 141 mmol/L (135-145); Total Protein 6.7 g/dL (6.5-8.0)
[2025-02-24 18:44] LABS: Alkaline Phosphatase 104 U/L (39-117)
[2025-02-24 21:44] VITALS: BP 160/81; PULSE 71; RESP 14; O2SAT 99
[2025-02-25 00:07] VITALS: BP 160/81; PULSE 71; RESP 14; TEMP 36.9; O2SAT 99
== END 2025-02-25 00:08 | disposition home or self-care (01) ==
PROVIDERS: Physician Assistant Medical; Emergency Provider Emergency Medicine; PCP Internal Medicine
DX: K59.00 Constipation, unspecified (principal); R10.2 Pelvic and perineal pain; Z79.899 Other long term (current) drug therapy
CPT/HCPCS: 36415; 74018; 80053; 83690; 83735; 85025; 99283

== ENCOUNTER → 2025-02-24 21:36 | Outpatient (BNV) | payer OTHER, SELFPAY | PROVIDERS: Emergency Provider Emergency Medicine; PCP Internal Medicine; Visit Provider Radiology Diagnostic Radiology | DX: K59.00 Constipation, unspecified (principal) | CPT/HCPCS: 74018 ==

== ENCOUNTER 2025-03-07 10:47 | Emergency (ER) | payer OTHER, SELFPAY ==
--- NOTE | ~2025-03-07 | CT_ITS ---
EXAMINATION: CT ABDOMEN AND PELVIS WITH CONTRAST CLINICAL INFORMATION: Diffuse abdominal pain. History of pancreatitis. COMPARISON: January 24, 2025. TECHNIQUE: Multidetector volumetric images were obtained from the superior aspect of the liver through the pubic symphysis following administration 85 mL of Omnipaque 350 intravenous contrast. Sagittal and coronal reformatted images were obtained on the technologist's workstation. Oral contrast: No This CT examination was performed using dose optimization techniques as appropriate, variously including the following: *Automated exposure control *Adjustment of mA and/or kV according to patient size (this includes techniques or standardized protocols for targeted exams where dose is matched to indication/reason for exam; i.e. extremities or head) *Use of iterative reconstruction technique DLP: 604 mGy centimeter. FINDINGS: LUNG BASES: No acute airspace disease. LIVER, GALLBLADDER, AND BILIARY TREE: Liver measures 16 cm. No focal mass. Main portal vein and hepatic veins and intrahepatic portion of the IVC are patent. No intrahepatic biliary ductal dilatation. No pericholecystic fluid collection or gallbladder wall thickening. Common bile duct measures 4 m. PANCREAS: No focal lesion. No peripancreatic fluid collection. No main pancreatic ductal dilatation. SPLEEN: 8 cm no focal lesion. ADRENAL GLANDS: No nodular lesions. KIDNEYS AND URETERS: No renal mass. No hydronephrosis. No gross nephrolithiasis BLADDER: Fluid-filled prominent. GASTROINTESTINAL TRACT: Abundant stool. No intestinal obstruction pattern. No ascites. No pneumatosis intestinalis. No pneumoperitoneum. Appendix is not identified. No gross abdominal wall thickening. ABDOMINAL WALL: Small fat-containing umbilical hernia. LYMPH NODES: Nonspecific mildly prominent mesenteric and retroperitoneum. VASCULAR: Mixed plaques without aneurysm or dissection, abdominal aorta. PELVIC VISCERA: No focal mass. OSSEOUS STRUCTURES: Multilevel spondylosis. Spina bifida occulta, S1 and S2. Sclerosis and the sacroiliac joints bilaterally. No acute fracture or gross listhesis in the axial skeleton. No gross lytic or blastic lesions. CT/CT abdomen pelvis w IV con IMPRESSION: No acute pancreatitis. Resolved pleural effusion since prior exam. Fleischner guidelines were followed. Electronically signed by: Melquiades Malik MD 03/07/2025 03:44 PM EDT
--- NOTE | ~2025-03-07 | US_ITS ---
EXAMINATION: US ABDOMEN LIMITED CLINICAL INFORMATION: Abdominal pain. History of pancreatitis.. COMPARISON: Correlated to CT dated January 24, 2025 TECHNIQUE: Real-time ultrasound right upper quadrant abdomen using grayscale technique. Limited exam. FINDINGS: Unable to evaluate the pancreas. No gross peripancreatic fluid collection. Gallbladder is fluid-filled without pericholecystic fluid collection or gallbladder wall thickening. Common bile duct measures 3 mm. No gross ascites. US/US abdomen limited IMPRESSION: Limited examination demonstrated no cholelithiasis. Electronically signed by: Melquiades Malik MD 03/07/2025 02:46 PM EDT
[2025-03-07 11:04] VITALS: BP 163/85; PULSE 82; RESP 16; TEMP 36.7; O2SAT 100; BMI 30.8
[2025-03-07 11:22] LABS: MANUAL DIFF FLAG NO
[2025-03-07 11:23] LABS: Basophils Percent Auto 0.5 % (0-2); Eosinophils Absolute Auto 0.2 X10*3/uL (0.0-0.4); Eosinophils Percent Auto 2.1 % (0-4); Hematocrit 36.4 % (37.0-47.0); Hemoglobin 12.1 g/dl (12.0-16.0); Imm Gran Abs Auto 0.02 X10*3/uL (0.00-0.03); Imm Gran Pct Auto 0.3 % (0.0-0.4); Lymphocytes Absolute Auto 3.2 X10*3/uL (1.2-4.9); Lymphocytes Percent Auto 41.8 % (20-40); Mean Corpuscular HGB Conc 33.2 g/dl (31.0-35.0); Mean Corpuscular Hemoglobin 28.1 pg (27.0-33.0); Mean Corpuscular Volume 84.5 fL (80.0-98.0); Monocytes Absolute Auto 0.5 X10*3/uL (0.1-1.2); Monocytes Percent Auto 6.2 % (2-11); Neutrophils Absolute Auto 3.8 x10*3/uL (2.0-8.3); Neutrophils Percent Auto 49.1 % (45-73); Platelet Count 310 X10*3/uL (160-400); Red Blood Count 4.31 X10*6/uL (4.20-5.50); White Blood Count 7.8 X10*3/uL (4.8-10.8)
[2025-03-07 11:39] LABS: Alanine Aminotransferase 17 U/L (0-31); Albumin Level 4.1 g/dL (3.5-5.0); Alkaline Phosphatase 91 U/L (39-117); Anion Gap 13 (12-20); Aspartate Amino Transferase 22 U/L (5-31); Bilirubin Direct 0.2 mg/dL (0.0-0.5); Bilirubin Total 0.5 mg/dL (0.0-1.0); Blood Urea Nitrogen 19 mg/dL (9-16); Calcium 9.8 mg/dL (8.4-10.2); Carbon Dioxide 30 mmol/L (22-29); Chloride 98 mmol/L (96-108); Estimated Glomerular Filt Rate > 60; Glucose Random 110 mg/dL (60-115); Lipase 30 U/L (8-78); Potassium 4.9 mmol/L (3.3-5.1); Sodium 136 mmol/L (135-145)
[2025-03-07 11:58] VITALS: BP 151/67; PULSE 67; RESP 17; TEMP 36.7; O2SAT 97
[2025-03-07 12:31] LABS: Appearance Urine Clear; Color Urine Yellow; Glucose Urine UA Negative (Negative); Leukocyte Esterase Urine Small (1+) (Negative); Nitrite Urine Negative (Negative); Specific Gravity - Urine <= 1.005 (1.005-1.025); UMIC TRIGGER UACC YES; Urine Blood Negative (Negative); Urine Ketones Negative (Negative); Urine Protein Negative (Neg-Trace)
[2025-03-07 12:39] LABS: Bacteria Urine None Seen (None Seen); Hyaline Casts Urine 0-2 /LPF (0-2); RBC Urine 0-2 /HPF (0-2); Squamous Epithelial Cell Urine 0-2 /HPF (0-2); UACC Culture Trigger YES; WBC Urine 0-5 /HPF (0-5)
[2025-03-07 13:57] VITALS: BP 148/68; PULSE 65; RESP 14; TEMP 36.7; O2SAT 100
--- NOTE | 2025-03-07 14:03 | ED.GENADULT ---
HPI - General Adult General Chief complaint: General Medical Stated complaint: liver/ kidney, Vomiting, cant urinate Time Seen by Provider: 03/07/25 11:39 History of Present Illness HPI narrative: Patient is a 65-year-old female has a history of possible pancreatitis in the past. History of bacteremia secondary to Enterobacter species was on antibiotics. Had a previous CT and MRCP done in the past. There is no gross obstruction noted. Patient's came in complaining that she had diffuse abdominal pain again that is been ongoing associated with nausea unable to tolerate p.o.. Patient is from home. No coughing or congestion or upper respiratory symptoms. No pain on urination. Patient is from home. 1. ECC bacteremia: Likely bacterial translocation 2/2 compromised gut integrity. / cultures pending. Appreciate ID input. 2. elevated LFTs: likely 2/2 cholestasis of sepsis. No CBD obstruction noted on US or MRCP. Typically ALP and bili lag behind transaminses so anticipate ALP to be lower tmrw, however if continues to uptrend would recommend MRI abd with and without contrast for pancreas and liver protocol. Related Data Home Medications ?Medication ?Instructions ?Recorded ?Confirmed amitriptyline 10 mg tablet 5 mg PO BEDTIME 01/19/25 02/24/25 amlodipine 5 mg tablet 2.5 mg PO DAILY 01/19/25 02/24/25 polyethylene glycol 3350 17 17 g PO DAILY Constipation 01/19/25 02/24/25 gram/dose oral powder (Miralax) ropinirole 0.25 mg tablet 1 mg PO BEDTIME 01/19/25 02/24/25 sennosides 8.6 mg-docusate sodium 1 tab PO Q2D@2100 01/19/25 02/24/25 50 mg tablet (Senna with Docusate Sodium) Previous Rx's ?Medication ?Instructions ?Recorded acetaminophen 500 mg capsule 500 mg PO Q6H PRN fever 30 days 06/24/23 #120 caps blood-glucose meter (Prodigy #1 ea 02/08/24 Autocode Meter kit) lancets 28 gauge (Prodigy Lancets) #100 ea 02/08/24 walker #1 ea 07/26/24 blood-glucose meter (FreeStyle #1 ea 11/29/24 Lite Meter kit) atorvastatin 10 mg tablet 10 mg PO DAILY 90 days #90 tabs 12/13/24 furosemide 40 mg tablet 40 mg PO DAILY #90 tabs 12/13/24 blood sugar diagnostic (FreeStyle #100 ea 12/20/24 Test strips) tolterodine 2 mg capsule,extended 2 mg PO DAILY 90 days #90 caps 01/04/25 release 24 hr metoprolol succinate 25 mg 25 mg PO DAILY #30 tabs 01/06/25 tablet,extended release 24 hr ondansetron 4 mg disintegrating 4 mg PO Q6-8H PRN nausea and 01/16/25 tablet vomiting #7 tabs sulfamethoxazole 800 1 tab PO BID #8 tabs 01/25/25 mg-trimethoprim 160 mg tablet (Bactrim DS) acyclovir 400 mg tablet 400 mg PO TID 30 days #90 tabs 02/04/25 divalproex 500 mg tablet,extended 1,000 mg (2 x 500 mg) PO BEDTIME 02/04/25 release 24 hr 90 days #180 tabs dulaglutide 1.5 mg/0.5 mL 1.5 mg (0.5 mL) subcut FR #2 mL 02/04/25 subcutaneous pen injector (Trulicity) insulin aspart U-100 100 unit/mL 10 unit (0.1 mL) subcut TID 90 02/04/25 (3 mL) subcutaneous pen (Novolog #27 mL FlexPen U-100 Insulin aspart) lisinopril 20 mg tablet 40 mg (2 x 20 mg) PO DAILY 90 days 02/04/25 #180 tabs omeprazole 20 mg capsule,delayed 20 mg PO DAILY #90 caps 02/04/25 release pen needle, diabetic 32 gauge x #100 ea 02/04/25 (1st Tier Unifine Pentips) insulin glargine 100 unit/mL (3 48 unit (0.48 mL) subcut DAILY 90 02/14/25 mL) subcutaneous pen (Lantus days #43.2 mL Solostar U-100 Insulin) guaifenesin 600 mg tablet, 600 mg PO BID 5 days #10 tabs 02/15/25 extended release 12 hr (Mucinex) docusate sodium 100 mg capsule 100 mg PO BID #10 caps 02/24/25 (Colace) polyethylene glycol 3350 17 17 g PO QID #238 grams 02/24/25 gram/dose oral powder (Miralax) ondansetron 4 mg disintegrating 4 mg PO TID PRN nausea and 03/07/25 tablet vomiting 5 days #10 tabs Allergies Allergy/AdvReac Type Severity Reaction Status Date / Time Penicillins Allergy Intermediate rash/swelli Verified 03/07/25 11:05 ng shellfish derived Allergy Intermediate Swelling, Verified 03/07/25 11:05 Hives Review of Systems Review of Systems: Positive weakness Yes all other systems are reviewed and are negative PMFSH Past Medical History Attestation statement: The following information was validated with the patient. Medical History Osteoporosis Hypertension History of blood clot in brain Hypercholesteremia HSV-2 (herpes simplex virus 2) infection Arthritis Rheumatic fever Schizophrenia GERD (gastroesophageal reflux disease) Depression HTN (hypertension) Hyperlipemia Diabetes Surgical History Hx of colonoscopy History of tubal ligation History of cystostomy History of 2 sections Family History Family History Sister Age: 64 Osteoarthritis Mother Cancer of lymphatic and hematopoietic tissue, Onset Age: 83 COVID-19 Father FH: heart attack Brother FH: heart attack Other Diabetes HTN (hypertension) Mental health disorder Social History Social History Household Members: None Household Members Other:: sister Housing: Apartment Do you presently have visiting nurse or other home services: No Alcohol intake: never Patient Tobacco Use Status: Never used Tobacco Smoked in Last 30 Days: No e-Cigarette/Vaping Use: Never Used Second Hand Smoke Exposure: No Use of substances other than those prescribed or required for medical reasons: No Advance Directives: Yes Advance Directives on File: Yes Advance Directives Date on File: 02/08/24 service: No Current occupational status: disabled Sexual orientation: Straight/Heterosexual Gender identity: Female Cognitive needs: Yes (walker) Hearing needs: No Vision needs: Yes (glasses) Physical Exam ED Vital Signs: Vital Signs - 24 hr 03/07/25 11:04 03/07/25 11:58 03/07/25 13:57 Temperature 98.1 F 98.1 F 98.0 F Pulse Rate 82 67 65 Respiratory Rate 16 17 14 Blood Pressure 163/85 H 151/67 H 148/68 H Pulse Oximetry 100 97 100 Oxygen Delivery Method Room Air Room Air Room Air 03/07/25 16:00 03/07/25 17:39 Temperature 98.7 F 98.1 F Pulse Rate 70 75 Respiratory Rate 13 18 Blood Pressure 156/64 H 153/69 H Pulse Oximetry 93 100 Oxygen Delivery Method Room Air Room Air BMI result Body Mass Index 30.8 Appearance: Alert. Oriented X3. No acute distress. Eyes: Pupils equal, round and reactive to light. ENT: Pharynx normal. Neck: Normal inspection. Neck supple. No lymph nodes noted. No crepitus CVS: Normal heart rate and rhythm. Pulses normal. Normal S1 and S2 Respiratory: No respiratory distress. Breath sounds normal. No Wheezing. No rales Abdomen: Soft and nontender. No rigidity. No distention. good BS x4 Skin: Skin warm and dry. Normal skin color. Normal skin turgor. Extremities: No lower extremity edema. Neurovascular intact to all extremities. No Lacerations. No Rash Neuro: Oriented X 3. No motor deficit. No sensory deficit. Moving all extermities. No slurred speech Medications Administered Discontinued Medications Generic Name Dose Route Start Last Admin Trade Name Freq PRN Reason Stop Dose Admin Iohexol 100 ml 03/07/25 15:28 03/07/25 15:29 Iohexol 350 Mg/Ml 100 Ml Infus..Btl IV 03/07/25 15:29 85 ml ONCE ONE Administration Medical Decision Making Medical Decision Making [facility] Narrative: Patient is 65 years old presents today with having abdominal pain. Previous history of pancreatitis. Was admitted to the hospital in the past. We did a CT scan of the abdomen there is no evidence for pancreatitis is no obstruction no abscess no perforation. Recheck patient's lipase was normal. Ultrasound showed no abnormality. White count was normal. Hemoglobin 12 which is baseline. Patient is lipase is 30 no evidence for pancreatitis LFTs are normal in the setting of negative CT for pancreatitis unlikely to have pancreatitis. Patient's urine showed no signs of infection. Will discharge patient home given Zofran given nausea meds with good relief of symptoms. Differential Diagnosis Differential Diagnoses: The differential diagnosis associated with the presentation includes Pancreatitis, pseudocyst, obstruction, gastritis Admission/Observation Consideration of admission/observation: Escalation of care including admission/observation considered Lab Data [facility] Lab Attestation statement: I reviewed the patient's lab results. 03/07/25 11:17 03/07/25 11:17 Labs: Lab Results 03/07/25 03/07/25 Range/Units 11:17 12:24 WBC 7.8 (4.8-10.8) X10*3/uL RBC 4.31 (4.20-5.50) X10*6/uL Hgb 12.1 (12.0-16.0) g/dl Hct 36.4 L (37.0-47.0) % MCV 84.5 (80.0-98.0) fL MCH 28.1 (27.0-33.0) pg MCHC 33.2 (31.0-35.0) g/dl RDW 14.0 (11.0-16.0) % Plt Count 310 (160-400) X10*3/uL MPV 10.0 (9.4-12.3) fL Immature Gran % (Auto) 0.3 (0.0-0.4) % Neut % (Auto) 49.1 (45-73) % Lymph % (Auto) 41.8 H (20-40) % [place]ison % (Auto) 6.2 (2-11) % Eos % (Auto) 2.1 (0-4) % Baso % (Auto) 0.5 (0-2) % Lymph # (Auto) 3.2 (1.2-4.9) X10*3/uL Addison # (Auto) 0.5 (0.1-1.2) X10*3/uL Eos # (Auto) 0.2 (0.0-0.4) X10*3/uL Baso # (Auto) 0.0 (0.0-0.2) X10*3/uL Abs Immat Gran (auto) 0.02 (0.00-0.03) X10*3/uL Absolute Neuts (auto) 3.8 (2.0-8.3) x10*3/uL Absolute Nucleated RBC 0.000 (0.0-0.012) X10*3/uL Nucleated RBC % (auto) 0.0 (0.0-0.2) /100WBC Sodium 136 (135-145) mmol/L Potassium 4.9 D (3.3-5.1) mmol/L Chloride 98 (96-108) mmol/L Carbon Dioxide 30 H (22-29) mmol/L Anion Gap 13 (12-20) BUN 19 H (9-16) mg/dL Creatinine 0.90 (0.5-1.4) mg/dL Estim Creat Clear Calc 61.0 Estimated GFR > 60 Random Glucose 110 (60-115) mg/dL Calcium 9.8 (8.4-10.2) mg/dL Total Bilirubin 0.5 (0.0-1.0) mg/dL Direct Bilirubin 0.2 (0.0-0.5) mg/dL AST 22 (5-31) U/L ALT 17 (0-31) U/L Alkaline Phosphatase 91 (39-117) U/L Total Protein 7.0 (6.5-8.0) g/dL Albumin 4.1 (3.5-5.0) g/dL Lipase 30 (8-78) U/L Urine Color Yellow Urine Appearance Clear Urine pH 7.0 (5.0-9.0) Ur Specific [place] <= 1.005 (1.005-1.025) Urine Protein Negative (Neg-Trace) mg/dL Urine Glucose (UA) Negative (Negative) mg/dL Urine Ketones Negative (Negative) mg/dL Urine Blood Negative (Negative) Urine Nitrite Negative (Negative) Ur Leukocyte Esterase Small (1+) H (Negative) Urine RBC 0-2 (0-2) /HPF Urine WBC 0-5 (0-5) /HPF Ur Squamous Epith Cells 0-2 (0-2) /HPF Urine Bacteria None Seen (None Seen) Hyaline Casts 0-2 (0-2) /LPF Independent Interpretation I performed an independent interpretation of an: CT Scan (No gross obstruction) Radiology Impression Discussion of test interpretation with radiology: I have reviewed the radiologist's reading. Discharge Plan Discharge Clinical Impression: Gastritis Patient Disposition: Home, Self-Care Instructions: Gastritis (DC) Prescriptions: New ondansetron 4 mg tablet,disintegrating 4 mg PO TID PRN (Reason: nausea and vomiting) 5 Days Qty: 10 0RF No Action acetaminophen 500 mg capsule 500 mg PO Q6H PRN (Reason: fever) 30 Days Qty: 120 1RF (DME) walker Misc See Rx Instructions .Route Qty: 1 0RF Rx Instructions: As directed (DME) blood-glucose meter [FreeStyle Lite Meter] Kit See Rx Instructions .Route Qty: 1 0RF Rx Instructions: As directed atorvastatin 10 mg tablet 10 mg PO DAILY 90 Days Qty: 90 0RF furosemide 40 mg tablet 40 mg PO DAILY Qty: 90 3RF (DME) FreeStyle Test Strip See Rx Instructions .Route Qty: 100 6RF Rx Instructions: As directed three times a day tolterodine 2 mg capsule,extended release 24hr 2 mg PO DAILY 90 Days Qty: 90 1RF ondansetron 4 mg tablet,disintegrating 4 mg PO Q6-8H PRN (Reason: nausea and vomiting) Qty: 7 0RF omeprazole 20 mg capsule,delayed release(DR/EC) 20 mg PO DAILY Qty: 90 0RF lisinopril 20 mg tablet 40 mg PO DAILY 90 Days Qty: 180 0RF divalproex 500 mg tablet extended release 24 hr 1,000 mg PO BEDTIME 90 Days Qty: 180 0RF insulin aspart U-100 [Novolog FlexPen U-100 Insulin] 100 unit/mL (3 mL) insulin pen 10 unit subcut TID 90 Days Qty: 27 0RF (DME) pen needle, diabetic [1st Tier Unifine Pentips] 32 gauge x 5/32 needle See Rx Instructions .Route Qty: 100 0RF Rx Instructions: Use 1 pen needle three times a day Trulicity 1.5 mg/0.5 mL pen injector 1.5 mg subcut FR Qty: 2 0RF acyclovir 400 mg tablet 400 mg PO TID 30 Days Qty: 90 0RF insulin glargine [Lantus Solostar U-100 Insulin] 100 unit/mL (3 mL) insulin pen 48 unit subcut DAILY 90 Days Qty: 43.2 0RF guaifenesin [Mucinex] 600 mg tablet extended release 12hr 600 mg PO BID 5 Days Qty: 10 0RF amlodipine 5 mg tablet 2.5 mg PO DAILY sennosides-docusate sodium [Senna with Docusate Sodium] 8.6-50 mg tablet 1 tab PO Q2D@2100 Rx Instructions: Please take 2 tab every day at bedtime ropinirole 0.25 mg tablet 1 mg PO BEDTIME amitriptyline 10 mg tablet 5 mg PO BEDTIME polyethylene glycol 3350 [Miralax] 17 gram/dose powder 17 g PO DAILY sulfamethoxazole-trimethoprim [Bactrim DS] 800-160 mg tablet 1 tab PO BID Qty: 8 0RF docusate sodium [Colace] 100 mg capsule 100 mg PO BID Qty: 10 0RF polyethylene glycol 3350 [Miralax] 17 gram/dose powder 17 g PO QID Qty: 238 0RF (DME) blood-glucose meter [[employer] Trevor Autocode Meter] Kit See Rx Instructions .Route Qty: 1 0RF Rx Instructions: As directed (DME) lancets [ProdSonar.mey Lancets] 28 gauge misc See Rx Instructions .Route Qty: 100 11RF Rx Instructions: Use 1 lancet four times a day metoprolol succinate 25 mg tablet extended release 24 hr 25 mg PO DAILY Qty: 30 5RF Rx Instructions: Stop amlodipine Start metoprolol Referrals: Evelia Sweet MD [Primary Care Provider] - 03/09/25 Print Language: Georgian
[2025-03-07] MEDS: iohexoL 350 MG/ML 100 ML INFUS..BTL IV (15:29)
[2025-03-07 16:00] VITALS: BP 156/64; PULSE 70; RESP 13; TEMP 37.1; O2SAT 93
--- NOTE | 2025-03-07 17:02 | PC.NURSE ---
patient tolerated po challange
[2025-03-07 17:39] VITALS: BP 153/69; PULSE 75; RESP 18; TEMP 36.7; O2SAT 100
[2025-03-07 18:04] VITALS: BP 153/69; PULSE 75; RESP 18; TEMP 36.7; O2SAT 100
== END 2025-03-07 18:04 | disposition home or self-care (01) ==
PROVIDERS: Emergency Provider Emergency Medicine Emergency Medical Services; PCP Internal Medicine
DX: K29.60 Other gastritis without bleeding (principal); R10.9 Unspecified abdominal pain; E11.9 Type 2 diabetes mellitus without complications; I10 Essential (primary) hypertension; E78.00 Pure hypercholesterolemia, unspecified; Z79.02 Long term (current) use of antithrombotics/antiplatelets; Z79.4 Long term (current) use of insulin; Z79.85 Long-term (current) use of injectable non-insulin antidiabetic drugs; Z79.899 Other long term (current) drug therapy
CPT/HCPCS: 36415; 74177; 76705; 80053; 80076; 81001; 82248; 83690; 85025; 87086; 99284; Q9967

== ENCOUNTER → 2025-03-07 14:06 | Outpatient (BNV) | payer OTHER, SELFPAY | PROVIDERS: Emergency Provider Emergency Medicine Emergency Medical Services; PCP Internal Medicine; Visit Provider Radiology Diagnostic Radiology | DX: R10.9 Unspecified abdominal pain (principal); Z87.19 Personal history of other diseases of the digestive system | CPT/HCPCS: 74177; 76705 ==

== ENCOUNTER 2025-03-10 10:30 | Outpatient (AMB) | payer OTHER, SELFPAY ==
--- OUTSIDE RECORDS SUMMARY | 2023-10-12 12:07 | XMS_ITS | Continuity of Care Document ---
Author Organization [facility] Address [address] [facility] [address] [place] [address] Phone Care Team Providers Care Tallow Pumper Name Role Phone Blaise FREEMAN, Ujjwala Unavailable [...] THE SKIN ONCE EVERY WEEK. DELIVER TO [place] - Active acetaminophen ER 650 mg tablet,extended [...] Active clonazepam 0.5 mg tablet RX BY [facility] -- DO NOT REFILL -- [...] Active PLEASE DELIVER TO [address] [facility] [place] ELDERCARE pen needle, diabetic 31 gauge x 5/16 use 4 times a day as directed - Active ammonium lactate 12 % topical cream apply to affected area BID - Active Humalog U-100 Insulin 100 unit/mL subcutaneous solution inject by subcutaneous route pre lunch on per Sliding scale - Active Please send to [place]. Please do not autorefill.\Un julianna 200-no insulin. 201-250-4 units, 251-300-6 units, 301-350-8 units, over 350 inform clinician Natasha Ultra Strength 4 %-30 %-10 % topical cream apply to affrected area up to 3 times a day as directed - Active trazodone 100 mg tablet RX BY [facility] -- DO NOT REFILL -- take 1 tablet by oral route every bedtime - Active acetaminophen 325 mg tablet FOR USE AT DAY PROGRAM -- take 2 tablet by oral route every 4 hours as needed for pain, please do not exceed 2 doses/day at - Active polyethylene glycol 3350 17 gram/dose oral powder FOR USE AT [place] DAY PROGRAM - mix 17g into water [...] Location Reason(s) For Visit Diagnoses Date Provider [facility], [address], [place], [place], [id number], [place] tel:[phone] [place] No Information Sep- 4 Bhagavatula Ujjwala. [address] [place], [id number], [place]. tel:[phone] [facility], [address], [place], [place], [id number], [place] tel:[phone] [place] No Information Feb-2 3 Dorothea Barb. [address] [facility] [place], [id number], [place]. tel:[phone] [facility], [address], [place], [place], [id number], [place] tel:[phone] [place] No Information Feb- 3 Bhagavatula Umarlinjwala. [address], [place], [id number], [place]. tel:[phone] [facility], [address], [place], [place], [id number], [place] tel:[phone] [place] Other chronic pain Feb-0 3 Jojo Ojeda. [address] [place] [address], [id number], [place]. tel:[phone] [facility], [address], [place], [place], [id number], [place] tel:[phone] [place] Muscle weakness (generalized)Other chronic pain January- 3 Jojo Ojeda. [address], [place], [id number], [place]. tel:[phone] [facility], [address], [place], [place], [id number], [place] tel:[phone] [place] Other chronic painMuscle weakness (generalized) January- 3 Uribe Lynette. [address], [place], [id number], [place]. tel:[phone] [facility], [address], [place], [place], [id number], [place] tel:[phone] [place] Other chronic pain January- 3 Uribe Lynette. [address], [place], [id number], [place]. tel:[phone] [facility], [address], [place], [place], [id number], [place] tel:[phone] [place] Acute right-sided lo w back pain with right-sided sciatica January- 3 Baldemar Landrum. [address] [place], [place], [id number], [place]. tel:[phone] [facility], [address], [place], [place], [id number], [place] tel:[phone] [place] Acute right-sided lo w back pain with right-sided sciatica January-0 3 Baldemar Landrum. [address] [facility] [place], [id number], [place]. tel:[phone] [facility], [address], [place], [place], [id number], [place] tel:[phone] [place] Encounter for rehabilitation evaluationAcute right-sided low back pain with right-sided sciatica January-0 3 Baldemar Landrum. [address] [facility] [place], [id number], [place]. tel:[phone] [facility], [address], [place], [place], [id number], [place] tel:[phone] [place] Lower extremity edema (chief complaint) Localized edemaRadicular pain May-0 3 Blaise Nieto. [address] [facility] [place], [address], [place]. tel:[phone] [facility], [address], [place], [place], [id number], [place] tel:[phone] [place] Lumbago with sciatic a, right side 3 Raffaele Kaden. [address], [place], [id number], [place]. tel:[phone] [facility], [address] [facility], [place], [place], [id number], [place] tel:[phone] [place] No Information 3 Raffaele Kaden. [address], [place], [id number], [place]. tel:[phone] [facility], [address] [facility] [address] [facility], [place], [place], [id number], [place] tel:[phone] [place] No Information 3 Raffaele Kaden. [address], [place], [id number], [place]. tel:[phone] [facility], [address] [facility], [place], [place], [id number], [place] tel:[phone] [place] Encounter for genera l adult medical examination without abnormal findings 3 Pedro Luis Crystal. [address], [place], [id number], [place]. tel:[phone] [facility], [address] [facility], [place], [place], [address], [place] tel:[phone] [place] OV (chief complaint) Localized edemaLeg cramps 3 Bhagavatula Ujjwala. [address], [place], [id number], [place]. tel:[phone] [facility], [address], [place], [place], [id number], [place] tel:[phone] [place] No Information 3 Bhagavatula Ujjwala. [address], [place], [id number], [place]. tel:[phone] [facility], [address] [address], [place], [place], [address], [place] tel:[phone] [place] OV (chief complaint) Bipolar 1 disorder 3 Bhagavatula Ujjwala. [address] [place], [place], [id number], [place]. tel:[phone] [facility], [address] [address], [place], [place], [address], [place] tel:[phone] [place] No Information 3 Bhagavatula Ujjwala. [address], [place], [id number], [place]. tel:[phone] [facility], [address] [place] [address], [place], [place], [id number], [place] tel:[phone] [place] No Information 3 Raffaele Alfonso. [address], [place], [id number], [place]. tel:[phone] [facility], [address] [address], [place], [place], [id number], [place] tel:[phone] [place] No Information 0 3 Pedro Luis Crystal. [address], [place], [id number], [place]. tel:[phone] [facility], [address] [facility] [address] [place] [address], [id number], [place] tel:[phone] [place] RAJENDRA (chief complaint) Bipolar 1 disorderGAD (generalized anxiety disorder)Schizophrenia, unspecified typeHypertension, unspecified typeHypercholesteremiaT ype 2 diabetes mellitus without complication, with long-term current use of insulinLong term current use of insulinHypothyroidism, unspecified typeLong-term current use of injectable noninsulin antidiabetic medicationGastroesophag eal reflux disease without esophagitisEdema, unspecified typeTremorExcessive cerumen in left ear canal 3 Pedro Luis Crystal. [address] [facility] [place], [id number], [place]. tel:[phone] [facility], [address], [place], [place], [id number], [place] tel:[phone] [place] No Information 3 Pedro Luis Crystal. [address], [place], [id number], [place]. tel:[phone] [facility], [address], [place], [place], [address], [place] tel:[phone] [place] Skin excoriation 3 Pedro Luis Crystal. [address], [place], [address], [place]. tel:[phone] [facility], [address] [facility] [address] [facility], [place], [place], [address], [place] tel:[phone] [place] Encounter for nutritional assessmentOther obesityDeficiency of other specified nutrient elements 3 Renetta Alvares. [address], [place], [id number], [place]. tel:[phone] [facility], [address] [facility], [place], [place], [address], [place] tel:[phone] [place] OV (chief complaint) Left foot pain 3 Pedro Luis Crystal. [address], [place], [id number], [place]. tel:[phone] [facility], [address] [facility] [address] [facility], [place], [place], [id number], [place] tel:[phone] [place] No Information 3 Raffaele Alfonso. [address], [place], [id number], [place]. tel:[phone] [facility], [address], [place], [place], [id number], [place] tel:[phone] [place] Encounter for rehabilitation evaluationChronic bilateral low back pain, unspecified whether sciatica presentOther chronic painPain of both shoulder jointsPain in left shoulder 2- 3 Ren Ruelas. [address] [place], [place], [address], [place]. tel:[phone] [facility], [address], [place], [place], [id number], [place] tel:[phone] [place] Other lack of coordinationChronic midline low back pain, unspecified whether sciatica presentOther chronic pain 3 Ren Ruelas. [address] [place], [place], [id number], [place]. tel:[phone] [facility], [address], [place], [place], [id number], [place] tel:[phone] [place] Other lack of coordination Aug-2 2 Ren Ruelas. [address] [place], [place], [id number], [place]. tel:[phone] [facility], [address], [place], [place], [id number], [place] tel:[phone] [place] Other chronic painOt her lack of coordination Aug- 2 Ren Ruelas. [address] [place], [place], [id number], [place]. tel:[phone] [facility], [address], [place], [place], [id number], [place] tel:[phone] [place] Other lack of coordinationChronic bilateral low back pain, unspecified whether sciatica presentOther chronic pain Dec-2 - 2 Ren Ruelas. [address] [place], [place], [address], [place]. tel:[phone] [facility], [address], [place], [place], [id number], [place] tel:[phone] [place] Muscle weakness (generalized) Dec-2 0-202 2 Ren Jessenia. [address] [place], [place], [address], [place]. tel:[phone] [facility], [address], [place], [place], [address], [place] tel:[phone] [place] Oropharyngeal dysphagia Dec-1 4-202 2 Caselden Sofiya. [address] [place], [place], [id number], [place]. tel:[phone] [facility], [address], [place], [place], [id number], [place] tel:[phone] [place] Other lack of coordination Dec-1 3-202 2 Renbettye Ruelas. [address] [place], [place], [address], [place]. tel:[phone] [facility], [address], [place], [place], [id number], [place] tel:[phone] [place] Other lack of coordination Dec-0 8- 2 Ren Jessenia. [address], [place], [place], [id number], [place]. tel:[phone] [facility], [address], [place], [place], [id number], [place] tel:[phone] [place] Oropharyngeal dysphagia Dec-0 7- 2 Caselden Sofiya. [address], [place], [place], [address], [place]. tel:[phone] [facility], [address], [place], [place], [id number], [place] tel:[phone] [place] Alteration in performance of activities of daily living Dec-0 6-202 2 Ren Jessenia. [address] [place], [place], [address], [place]. tel:[phone] [facility], [address], [place], [place], [address], [place] tel:[phone] [place] OV (chief complaint) DM type 2 with diabetic peripheral neuropathyLong term (current) use of insulinLong-term (current) use of injectable non-insulin antidiabetic drugs Dec- 2 Pedro Luis Crystal. [address], [place], [id number], [place]. tel:[phone] [facility], [address] [facility] [address], [place], [place], [address], [place] tel:[phone] [place] Alteration in performance of activities of daily living 2 Ren Ruelas. [address], [place], [id number], [place]. 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 [address], [place], [id number], [place]. tel:[phone] [facility], [address] [facility], [place], [place], [address], [place] tel:[phone] [place] Encounter for rehabilitation evaluation 2 Ren Ruelas. [address], [place], [address], [place]. tel:[phone] [facility], [address] [facility] [address], [place], [place], [id number], [place] tel:[phone] [place] Dysphagia, unspecifi ed typeFeeding difficultiesEncounter for nutritional assessment 2 Normile Dia. [address], [place], [id number], [place]. tel:[phone] [facility], [address] [facility], [place], [place], [address], [place] tel:[phone] [place] Other chronic pain 2 Uribe Lynette. [address], [place], [address], [place]. tel:[phone] [facility], [address], [place], [place], [id number], [place] tel:[phone] [place] PHV (chief complaint) Bilateral shoulder pain, unspecified chronicity 2 Pedro Luis Bonilla. [address], [place], [address], [place]. tel:[phone] [facility], [address], [place], [place], [address], [place] tel:[phone] [place] Other chronic pain 2 Mcdermott Lucita. [address], [place], [id number], [place]. tel:[phone] [facility], [address], [place], [place], [address], [place] tel:[phone] [place] Difficulty in walkin g, not elsewhere classifiedOther chronic pain 2 Uribe Lynette. [address], [place], [address], [place]. tel:[phone] [facility], [address], [place], [place], [address], [place] tel:[phone] [place] No Information 2 Raffaele Alfonso. [address], [place], [address], [place]. tel:[phone] [facility], [address], [place], [place], [address], [place] tel:[phone] [place] Difficulty in walkin g, not elsewhere classifiedOther chronic pain 2 Uribe Lynette. [address], [place], [id number], [place]. tel:[phone] [facility], [address], [place], [address], [place] tel:[phone] [place] Muscle weakness (generalized) 2 Ren Reulas. [address] [place], [place], [address], [place]. tel:[phone] [facility], [address], [place], [place], [id number], [place] tel:[phone] [place] Difficulty in walkin g, not elsewhere classifiedOther chronic painMuscle weakness (generalized) 2 Uribe Lynette. [address], [place], [id number], [place]. tel:[phone] [facility], [address], [place], [place], [id number], [place] tel:[phone] [place] Chronic bilateral lo w back pain, unspecified whether sciatica presentOther chronic pain 2 Baldemar Landrum. [address], [address], [place]. tel:[phone] [facility], [address] [place] [address], [id number], [place] tel:[phone] [place] Difficulty in walkin g, not elsewhere classifiedOther chronic pain 2 Uribe Lynette. [address], [place], [address], [place]. tel:[phone] [facility], [address], [place], [place], [address], [place] tel:[phone] [place] Other chronic painMuscle weakness (generalized) 0 2 Uribe Lynette. [address], [place], [id number], [place]. tel:[phone] [facility], [address], [place], [address], [place] tel:[phone] [place] Chronic bilateral lo w back pain, unspecified whether sciatica presentOther chronic painPain of both shoulder jointsPain in left shoulder Sep-2 2 Ren Jessenia. [address] [facility] [place], [address], [place]. tel:[phone] [facility], [address] [facility] [address] [facility], [place], [place], [address], [place] tel:[phone] [place] Other chronic pain Sep-2 2 Jojo Ojeda. [address] [place] [address], [place], [place], [id number], [place]. tel:[phone] [facility], [address], [place], [place], [id number], [place] tel:[phone] [place] Muscle weakness (generalized) Sep-2 2 Ren Jessenia. [address], [place], [place], [id number], [place]. tel:[phone] [facility], [address] [facility] [address] [facility], [place], [place], [address], [place] tel:[phone] [place] Muscle weakness (generalized) Sep-2 2 Ren Ruelas. [address] [facility] [place], [address], [place]. tel:[phone] [facility], [address] [facility] [address] [facility], [place], [place], [id number], [place] tel:[phone] [place] Chronic midline low back pain, unspecified whether sciatica presentOther chronic pain Sep-2 0 2 Baldemar Landrum. [address] [facility] [address], [place], [place], [address], [place]. tel:[phone] [facility], [address] [facility], [place], [place], [id number], [place] tel:[phone] [place] OV (chief complaint) ÓSCAR (generalized anxiety disorder) Sep-2 0 2 Pedro Luis Crystal. [address], [place], [id number], [place]. tel:[phone] [facility], [address], [place], [place], [address], [place] tel:[phone] [place] Chronic midline low back pain, unspecified whether sciatica presentOther chronic pain Sep-1 2 Baledmar Landrum. [address] [facility] [place], [address], [place]. tel:[phone] [facility], [address] [facility], [place], [place], [address], [place] tel:[phone] [place] Muscle weakness (generalized)Mild cognitive impairment, so stated Sep-1 2 Ren Jessenia. [address] [facility] [place], [address], [place]. tel:[phone] [facility], [address] [facility], [place], [place], [address], [place] tel:[phone] [place] No Information Sep-1 2 Pedro Luis Crystal. [address] [facility] [place], [address], [place]. tel:[phone] [facility], [address] [facility], [place], [place], [address], [place] tel:[phone] [place] No Information Sep-0 2 Pedro Luis Crystal. [address], [place], [id number], [place]. tel:[phone] [facility], [address] [facility], [place], [place], [address], [place] tel:[phone] [place] Encounter for rehabilitation evaluationChronic bilateral low back pain without sciaticaOther chronic pain Sep-0 8 2 Baldemar Landrum. [address] [facility] [place], [address], [place]. tel:[phone] [facility], [address] [facility], [place], [place], [address], [place] tel:[phone] [place] Muscle weakness (generalized) Sep-0 2-202 2 Ren Jessenia. [address] [place], [place], [address], [place]. tel:[phone] [facility], [address], [place], [place], [address], [place] tel:[phone] [place] No Information 2 Pedro Luis Crystal. [address], [place], [place], [address], [place]. tel:[phone] [facility], [address], [place], [place], [id number], [place] tel:[phone] [place] Encounter for rehabilitation evaluationMuscle weakness (generalized) 2 Ren Jessenia. [address], [place], [place], [address], [place]. tel:[phone] [facility], [address], [place], [place], [id number], [place] tel:[phone] [place] Encounter for nutritional assessment 2 Waldemar Hammera. [address], [place], [address]. tel:[phone] [facility], [address], [place], [place], [id number], [place] tel:[phone] [place] Encounter for rehabilitation evaluation 2 Ren Ruelas. [address], [place], [place], [address], [place]. tel:[phone] [facility], [address], [place], [place], [address], [place] tel:[phone] [place] Encounter for rehabilitation evaluation 2 Baldemar Landrum. [address] [facility] [address], [place], [place], [address], [place]. tel:[phone] [facility], [address], [place], [place], [address], [place] tel:[phone] [place] Herpesviral vesicula r dermatitis 2 Pedro Luis Crystal. [address], [place], [place], [address], [place]. tel:[phone] [facility], [address] [facility], [place], [place], [id number], [place] tel:[phone] [place] Encounter for genera l adult medical examination without abnormal findingsEssential (primary) hypertension 2 Pedro Luis Bonilla. [address] [facility] [place], [address], [place]. tel:[phone] [facility], [address], [place], [place], [address], [place] tel:[phone] [place] PEE (chief complaint) Hypertension, unspecified typeHypercholesteremiaD M type 2 with diabetic peripheral neuropathyLong term (current) use of insulinGastroesophageal reflux disease, unspecified whether esophagitis presentGenital herpes simplex, unspecified siteBipolar 1 disorderHypothyroidism, unspecified typeGAD (generalized anxiety disorder)Schizophrenia, unspecified typeTremor 2 Pedro Luis Crystal. [address], [place], [place], [address], [place]. tel:[phone] [facility], [address] [facility], [place], [place], [id number], [place] tel:[phone] [place] Hypertension, unspecified typeHypercholesteremiaD M type 2 with diabetic peripheral neuropathyHypothyroidis m, unspecified typeHerpesviral infection, unspecified 2 Dorothea Day. [address], [place], [place], [id number], [place]. tel:[phone] [facility], [address] [facility], [place], [place], [address], [place] tel:[phone] [place] Medication course changed 2 Dorothea Day. [address] [place], [place], [address], [place]. tel:[phone] [facility], [address] [facility], [place], [place], [address], [place] tel:[phone] [place] No Information 2 Raffaele Alfonso. [address], [place], [address], [place]. tel:[phone] [facility], [address] [facility] [address], [place], [place], [id number], [place] tel:[phone] [place] Intake (chief complaint) Encounter for general adult medical examination without abnormal findings 2 Raffaele Alfonso. [address], [place], [address], [place]. tel:[phone] Family History Family Member Type Diagnosis Age At Onset No Information Immunizations Vaccine Date Status Comments Fluzone Quad administered [facility] e: New Immunization Record Payers Payer name Insurance type Covered constitution party ID Socrates lee(s) [place] [id number] [place] [address] [id number] Social History Type Description Quantity Date Captured Comments Sex Female Smoking Status No Information Chief Complaint And Reason For Visit No Information Plan Of Treatment Date Type Action Status Referral Ordered: Physical Therapy -Therapies/Rehabilitation (related to Right-sided low back pain with right-sided sciatica, unspecified chronicity) ordered Referral Referred To: Physical Therapy Ordered: Referrals: Therapies/Rehabilitation. Physical Therapy. Consult ordered Referral Ordered: Referrals: [facility]- Podiatry Location: [facility] Appointment date/timeframe: 12/29/2022 ordered Referral Ordered: Referrals: Gynecology Appointment date/timeframe: 07/31/2022 ordered Referral Referred To: Bonilla ARCINIEGA [address] [place], [place], [phone] Ordered: Referrals: Internal Medicine. Bonilla ARCINIEGA Appointment date/timeframe: 05/13/2023 ordered Referral Referred To: Bonilla ARCINIEGA [address] [place], [place], [id number] [phone] Ordered: Referrals: Cardiology. Bonilla ARCINIEGA Appointment date/timeframe: 10/21/2022 ordered Aug-15-2022 Referral Referred To: Bonilla ARCINIEGA [address] [facility] [place], [place], [phone] [phone] Ordered: Referrals: Rheumatology. Bonilla ARCINIEGA Appointment date/timeframe: 04/16/2023 ordered Referral Referred To: Bonilla ARCINIEGA [address] [facility] [place], [place], [phone] Ordered: Referrals: Dentistry. Bonilla ARCINIEGA Appointment date/timeframe: 12/17/2022 ordered Referral Referred To: Bonilla ARCINIEGA [address] [facility] [place], [place], [id number] [phone] Ordered: Referrals: Podiatry. Bonilla ARCINIEGA ordered Referral Referred To: Bonilla ARCINIEGA [address] [place], [place], [phone] Ordered: Referrals: Gastroenterology. Bonilla ARCINIEGA Appointment date/timeframe: 04/09/2023 ordered Referral Referred To: Bonilla ARCINIEGA [address] [place], [place], [phone] Ordered: Referrals: Bell Attendant. Bonilla ARCINIEGA ordered Referral Ordered: Referrals: Gynecology. Consult Appointment date/timeframe: 04/30/2022 ordered Future Order: Radiology Order Hi p X-ray; Unilateral, with Pelvis X-ray (2-3 views) ([id number]), Ordered on: Ordered Future Order: Radiology Order TT E Combined, 2D image, spectral Doppler, color flow image ([id number]), Ordered on: Ordered Future Order: Lab Order QUANTIFE KARLEY(R)-TB GOLD PLUS, 1 TUBE ([id number]), Ordered on: Ordered History Of Present Illness [...] good weekend per calls kindly placed by correctional cook nursing. Ppt noted to be doing well, [...] and available resources.Ppt seen on request of marriage and family social worker who was concerned ppt may be having a shiraz episode. Ppt was roomed and provider was notified at 1:45pm. Upon entering, ppt was speaking with marriage and family social worker. Translation was kindly provided by molder feeder on site. This provider checked with ppt, who notes she has been having difficulty sleeping, but notes this is a chronic issue. She denies any chest pain, palpitations. She does not recall med changes that occurred per at previous psychiatry visit, these were discussed. At this time, [facility] staff walked in noting ppts ride had arrived for 2pm and there is no ability to delay. This provider was unable to perform further HPI, ROS and had to perform a limited exam.Based on this providers limited exam and the information provided by staff who know her, she appears to be at baseline. Ppt denies SI/HIVM left with ppts prescriber at [facility]. Recommended that ppt come back [...] ongoing conservative care. BIPOLAR / ÓSCAR / [facility]HR[facility]IA[facility] counseling is still being utilizedSees counseling every thursdayClonazepam, Haldol, Depakote, trazodone [id number] 7.0% -> 7.9 this fall currently using [...] being seen in clinic todayCarries dx of T4AMSfcmbxmse treated with Humalog SSI and Lantus She [...] age in NAD nontoxic appearingLUNGS ctabHEART rrr (+)[id number] soft NTEXT no edema soft and NT PHV BESSIE INDERJIT RIVER A AHSAN PHVHPIPPt seen in clinic today for PHVShe was seen in the emergency dept No records available prior to visitIt appears she was seen at [place] [facility] for pain yesterday Pain is in [...] Bipolar, ÓSCAR, SchizophreniaHistorically rx by psychiatrist in [place] Currently klonopin, Depakote, Haldol, trazodoneShbettye is a patient at [facility] recently moved into her own apartment She reports she likes it She was reported as having increased anxiety yesterdayLiliy translates Ppt reports she feels better today vs yesterday Yesterday she had palpitations None since thenThese happen from jdfy-ut-fdohVITALS HR - 8202 - 96RR - 18BP - 142/80ROSno N V F C CP SOBno ABD PAIN diarrheano cough or difficulty swallowingno rashno palpitations todayPEFemale appearing her ageSpeaks Kazakh translated by [place] RNNADMood stableAffect mildly distrustingSpeaks fluidly Answers are appropriateHEART RRR (+)[id number] CTABExt with trace pedal edema bilaterallyNontoxic appearing LABSDPA - 50.7 TSH - 1.94 PEE HPI_62 ___ year old ___female__Lives in studio apartment in [place] with sisterMedications reviewedDiagnoses reviewed Hospitalizations - no significant BIPOLAR/SCHIZOPHRENIA/ÓSCAR counseling/therapy once a weekrx by psychiatrist in [place] hasn't met with a prescriber heremodd affect stable no symptoms nowHLDReports she was on a medication but her doctor took it awayThey "never gave it back Would be agreeable to starting againTHYROIDLast labs were normal so her PCP took it awayCurrently her labs are normalShe does not want to restart unless she has pyZ3RZChznvo 48u SC JEANINE Lea reports no hospitalizations 2nd to T3PPYyiim opto referral and podiatry referralDenies any wounds [...] apparently last year. She was residing in [place]. She had a number of hospitalizations and there was a tentative plan to place her in long-term care however, her niece and sister intervened and brought her to [place].The patient initially lived with her niece however that did not quite taylor out and she is now living in a studio apartment in [place] with her Sister Nicky. There are pending applications for either a 2 bedroom apartment for the 2 of them to live together or a 1 bedroom for the prospect to live and with the sister living in the same complex. At this point, sister assists her with all necessities. There is a tentative plan for 25.5 hours from [facility] however this has not started or been finalized, per the niece.Community physicians currently: Primary CARE: Clarissa [phone]:Dr. Torito OrellanaGlenmora podiatry [phone]:[facility] Nydia Muhammad[address] [place], [place] [phone] as psychiatrist however, is PhD psychologist, I am not sure who is prescribing psychiatric medicationsTimi Ibrahim, PhDHuntsman Mental Health [phone]: Mary Jalloh/[phone]:Dr. Rajendra [facility] oftvylyglzbxx[address] [facility] [address] [place]. [phone]:Jaz [address] Streethilda [phone] listedMedications listedPharmacy listedPast medical history and past surgical history listed, apparently had labial cyst or the like in the past and it is recurrent1 of the hospitalizations in [place] has dementia listed as a contributory diagnosis, I am unclear if this is correctRecent hospitalizations:82/-05/23/21: [facility], seemingly psychiatric10/09/21-10/16/21:[facility]-danger to self, schizophrenia, dementia10/18/21-11/13/21: [facility], lactic acidosis, flank pain, shortness of breath, seemingly followed by a psychiatric admission12/02/21-12/17/21 [facility]:Delusions/hallucinations/disorientationPa tient uses a 4 wheeled walker. She [...] appears to be at baseline. Noted that [facility] reduced her clonazepam to day, discontinued haloperidol and started amitriptyline. Discussion with SW after meeting, noting that the primary personal care worker (cyndi) would like to stop the amitriptyline, given concern for changes in altered mental status.This provider recommended to halve for 7 days and then discontinue. This was relayed by marriage and family social worker.Safety questions were completed with ppt, denying any SI/HI, notes her depression/anxiety is stable. Feels safe to go home and to follow up on Thursday Related to Bipolar 1 disorder debrox in SE program [id number] as needed canal still patent - ppt concerned and wanted tx Related to Excessive cerumen in left ear canal not tremulousness on exammonitor for EPS/tremors given use of psychoactive medsno changes at this timere-eval as needed Related to Tremor no edema todaycont e levationre-eval as needed Related to Edema, unspecified type no symptomsabd exam benigntaking PPI for GI ppx with good effectre-eval as needed Related to Gastroesophageal reflux disease without esophagitis trulicity 0.75mg Qweek Related t o Long-term current use of injectable noninsulin antidiabetic medication levothyoroxine stopp ed in sep 11 morgankavitha reported it was dcd by specialisttrend TSH T4 today and re-eval as needed Related to Hypothyroidism, unspecified type lantus and humalog see T2DM Rela quentin to [facility] current use of insulin truliticty addedcont inues with humalog and basal insulinself dcd CGM - using POCs at [id number] fasting this [facility] referrals to opto and poda1c and labs t odaytitrate up trulicity if neededeval ongoing Related to Type 2 diabetes mellitus without complication, with long-term current use of insulin cont STATINlipid taylor el today eval ongoing Related to Hypercholesteremia continue norvasc, ze stril, HCTZtrend routine labs and vitalsadjust mgmt as neededvitals checked during SE program and remain stable Related to Hypertension, unspecified type mood affect stablefo llowed by [facility] Counselingcont haldol, depakote and prn klonopineval ongoing Related to Schizophrenia, unspecified type cont [facility]ation and mood at baseline cont current medication regimen (see Bipolar)eval ongoing Related to ÓSCAR (generalized anxiety disorder) mood affect stablefo llowed by [facility] CounselingEKG this week forp Qtc [...] and humalog see T2DM Rela quentin to terminal manager (current) use of insulin a1C 7.0% -> 7.9curre ntly using lantus 48u SC QD and humalog SSiwill add trulicity to be admin @ day programtitrate up as neededcont to trend sugars via CGM at [facility] labs at [facility] [place] far as periph neuropathy:ppt followed by [...] NADpt will have appt made today at [facility] Counseling by dexter is agreeable [...] questions or concerns regarding psych dxfollowed by [facility] Counselingmsg left for info on upcoming appt and name of prescriberEKG pending tomorrow for Haldol use and baseline QTcdepakote lvl wnl @ 50.4cont haldol, depakote and prn klonopineval ongoing Related to ÓSCAR (generalized anxiety disorder) mood affect stablept has no questions or concerns regarding psych dxfollowed by [facility] Counselingmsg left for info on upcoming appt and name of prescriberEKG pending tomorrow for Haldol use and baseline QTcdepakote lvl wnl @ 50.4cont haldol, depakote and prn klonopineval ongoing Related to Schizophrenia, unspecified type mood affect stablept has no questions or concerns regarding psych dxfollowed by [facility] Counselingmsg left for info on upcoming appt and name of prescriberEKG pending tomorrow for Haldol use and baseline QTcdepakote lvl wnl @ 50.4cont haldol, depakote and prn klonopineval ongoing Related to Bipolar 1 disorder chronic dxfollowed b y GYNtakes antiviral for flare upsno pain or lesions at this timeno questions or concernsre-eval as neededfollowup CLIMATE CHANGE ANALYST consult summary as indicated Related to Genital herpes simplex, unspecified site no symptomsabd exam benigntaking PPI for GI ppx with good effectre-eval as needed Related to Gastroesophageal reflux disease, unspecified whether esophagitis present 04/25/22a1C 7.0%BUN/Cr -- 0.88/74currently using lantus 48u SC QDwill trend CMP and [id number] as needed for hypoglycemiafoot exam with decrease in monofilament examotherwise foot exam wnlwill consult podiatry, optometry eval ongoing Related to DM type 2 with diabetic peripheral neuropathy 04/25/22a1C 7.0%BUN/Cr -- 0.88/74currently using lantus 48u SC QDwill trend CMP and [id number] as needed for hypoglycemiafoot exam with decrease in monofilament examotherwise foot exam wnlwill consult podiatry, optometry eval ongoing Related to [facility] (current) use of insulin 04/25/22AST/ALT 8/10 ( [...] Goal Continued Bessie is at risk for watermaster placement related to schizophrenia and bipolar I d/x . Bessie will continue to live in the community environment with support from [facility] and family for 6 months. Patient Goal Entered in error Bessie is at risk for group home placement related to schizophrenia and bipolar I [...] communication related to language barrier- patient is Kazakh speaking Bessie will continue to function in her current environment, have her medical needs met, and maintain current level of social interactions through next review. Patient Goal Continued
[2025-03-10 10:46] VITALS: BP 110/74; PULSE 77; TEMP 36.2; O2SAT 97; BMI 31.0
--- NOTE | 2025-03-10 10:46 | MHC.PC.OV ---
Vital Signs 03/10/25 10:46 Height 5 ft 3 in Weight 175 lb 2 oz BMI 31.0 BP 110/74 Blood Pressure Location Lt brachial Position Sitting Pulse 77 Pulse Source Pulse Oximeter Temp 97.1 F Temp Source Temporal Artery Scan Pulse Oximetry (%) 97 Oxygen Delivery Method Room Air Intake Visit Reasons: [facility] 02/13 ABD pain Food Dehydrator Operator Required: Yes Food Dehydrator Operator Language: Citizen Of [place] Accompanied by: Self / Same As Patient Allergies Penicillins Allergy (Intermediate, Verified 03/10/25 10:47) rash/swelling shellfish derived Allergy (Intermediate, Verified 03/10/25 10:47) Swelling, Hives Tobacco use date assessed: 01/27/25 Fall risk assessment: No Falls in past year Last assessed Fall Risk: 03/10/25 Dental Screening Dental Screen Date: 01/27/25 HPI HPI Comments History of Present Illness Details 65 y/o Female patient who presents to the clinic for EDF. She was admitted at [facility] on 03/07 for an evaluation and treatment of Acute Abdominal pain. Previous history of pancreatitis. Was admitted to the hospital in the past. CT scan of the abdomen with no evidence for pancreatitis, no obstruction no abscess no perforation. Ultrasound showed no abnormality. lipase was 30 no evidence for pancreatitis. LFTs were normal in the setting of negative CT for pancreatitis unlikely to have pancreatitis. Patient's urine showed no signs of infection. Discharged home on Zofran. Today patient reports that Zofran not working and she continues to have nausea and abdominal pain. She does have an appointment with GI (03/2025). [facility] Medical History (Updated 03/10/25 @ 11:43 by Jessica Krueger NP) Nausea Abdominal pain Osteoporosis Hypertension History of blood clot in brain Hypercholesteremia HSV-2 (herpes simplex virus 2) infection Arthritis Rheumatic fever Schizophrenia GERD (gastroesophageal reflux disease) Depression HTN (hypertension) Hyperlipemia Diabetes Surgical History Hx of colonoscopy History of tubal ligation History of cystostomy History of 2 sections Family History Sister Age: 64 Osteoarthritis Mother Cancer of lymphatic and hematopoietic tissue, Onset Age: 83 COVID-19 Father FH: heart attack Brother FH: heart attack Other Diabetes HTN (hypertension) Mental health disorder Social History Household Members: None Household Members Other:: sister Housing: Apartment Do you presently have visiting nurse or other home services: No Alcohol intake: never Patient Tobacco Use Status: Never used Tobacco e-Cigarette/Vaping Use: Never Used Second Hand Smoke Exposure: No Advance Directives Date on File: 02/08/24 service: No Current occupational status: disabled Sexual orientation: Straight/Heterosexual Gender identity: Female Cognitive needs: Yes (walker) Hearing needs: No Vision needs: Yes (glasses) Female Reproductive History Menstrual Age of Menarche: 12 Questionnaire PHQ-9 Over the last 2 weeks, how often have you been bothered by any of the following problems? 1. Little interest or pleasure in doing things: more than half the days 2. Feeling down, depressed, or hopeless: more than half the days 3. Trouble falling or staying asleep, or sleeping too much: not at all 4. Feeling tired or having little energy: more than half the days 5. Poor appetite or overeating: more than half the days 6. Feeling bad about yourself - or that you are a failure or have let yourself or your family down: not at all 7. Trouble concentrating on things, such as reading the newspaper or watching television: not at all 8. Moving or speaking so slowly that other people could have noticed. Or the opposite - being so fidgety or restless that you have been moving around a lot more than usual: not at all 9. Thoughts that you would be better off or of hurting yourself in some way: not at all Total score: 8 Source: Developed by Drs. Rajendra Gutierrez, Juanita Junior, Tyson Mike and colleagues, with an educational otis from [employer]. Thrive Questionnaire Date Thrive assessed: 01/20/25 I am a: Patient What is your living situation today?: I have a steady place to live Within the past 12 months, did the food you bought not last and you didn't have the money to get more?: Never true Within the past 12 months, did you worry whether your food would run out before you got money to buy more?: Never true Do you have trouble paying for medicines?: No Do you have trouble getting transportation to medical appointments?: No Do you have trouble paying your heating and electricity bill?: No Do you have trouble taking care of your child, family member or friend?: No Do you have trouble with day-to-day activities such as bathing, preparing meals, shopping, managing finances, etc.?: No Are you currently unemployed and looking for a job?: No Are you interested in more education?: No Please select the resources that you would like help with: None Currently or been in a relationship where the following occur: No concerns reported THRIVE Score: 0 AUDIT C Alcohol Use Questionnaire (AUDIT-C) 1. How often do you have a drink containing alcohol?: Never Total Score: 0 ÓSCAR-7 AMB Questionnaire ÓSCAR-7 Date ÓSCAR - 7 assessed: 01/27/25 Feeling nervous, anxious, or on edge: 0 = Not at all Not being able to stop or control worryin = Not at all Worrying too much about different things: 0 = Not at all Trouble relaxin = Not at all Being so restless that it is hard to sit still: 0 = Not at all Becoming easily annoyed or irritable: 0 = Not at all Feeling afraid as if something awful might happen: 0 = Not at all Total ÓSCAR-7 score (0-4 normal; 5-9 mild; 10-14 moderate; 15-21 severe): 0 Source: Developed by Drs. Rajendra Gutierrez, Juanita Junior, Tyson Mike and colleagues, with an educational otis from [employer]. Review of Systems Const All systems reviewed & are unremarkable except as noted in HPI and below Physical exam (Primary Care) Vital Signs: Last Vital Signs Temp 97.1 F 03/10/25 10:46 Pulse 77 03/10/25 10:46 BP 110/74 03/10/25 10:46 Pulse Ox 97 03/10/25 10:46 Oxygen Delivery Method Room Air 03/10/25 10:46 BMI result Body Mass Index 31.0 Tobacco/Smoking Status: Tobacco use Status Tobacco use date assessed 01/27/25 03/10/25 10:48 Patient Tobacco Use Status Never used Tobacco 03/10/25 10:48 e-Cigarette/Vaping Use Never Used 03/10/25 10:48 PHQ-9: PHQ-9 Score PHQ-9: Total score 8 03/10/25 11:28 Thrive Assessment: Date of Thrive Assessment Date Thrive assessed 01/20/25 03/10/25 10:48 Currently or been in a relationship where the following occur: No concerns reported Const General: no acute distress Nutritional Appearance: obese Orientation/consciousness: patient oriented x3 Resp Effort & Inspection: normal respiratory effort Auscultation: clear to auscultation bilaterally Cardio Heart sounds: S1 normal heart sound present and S2 normal heart sound present GI Inspection: Yes obesity Palpation (GI): Soft to palpation Auscultation: normoactive bowel sounds Neuro General: patient oriented x3 Coding Level of Care Code Est Pt Level 4 (04919) Diagnoses Generalized abdominal pain R10.84 Abdominal location: generalized Nausea R11.0 Time Spent (min) 20 Assessment & Plan Assessment & Plan (1) Abdominal pain: Code(s): R10.9 - Unspecified abdominal pain Category: Medical Qualifiers: Abdominal location: generalized Qualified Code(s): R10.84 - Generalized abdominal pain Plan: F/U with GI as scheduled (2) Nausea: Code(s): R11.0 - Nausea Category: Medical Plan: D/Cd Zofran and ordered Promethazine. Medications: New promethazine 12.5 mg (1/2 x 25 mg) PO Q6H 20 tabs 0RF 10 days R10.84 - Generalized abdominal pain, R11.0 - Nausea Discontinued ondansetron Discontinued Reason: Patient no longer taking 4 mg PO TID 5 days PRN 10 tabs 0RF nausea and vomiting ondansetron Discontinued Reason: No Longer Medically Relevant 4 mg PO Q6-8H PRN 7 tabs 0RF nausea and vomiting
== END 2025-03-10 11:44 | disposition home or self-care (01) ==
LOC: HO.HMCH 10:31
PROVIDERS: PCP Internal Medicine; Visit Provider Nurse Practitioner Family
DX: R10.84 Generalized abdominal pain (principal); R11.0 Nausea

== ENCOUNTER → 2025-03-10 10:30 | Outpatient (BNVA) | payer OTHER, SELFPAY | PROVIDERS: PCP Internal Medicine; Visit Provider Nurse Practitioner Family | DX: R10.84 Generalized abdominal pain (principal); R11.0 Nausea | CPT/HCPCS: 96127; 99212 ==

== ENCOUNTER 2025-03-15 12:46 | Outpatient (REF) | payer OTHER, SELFPAY ==
--- NOTE | ~2025-03-15 | MR_ITS ---
EXAMINATION: MR ABDOMEN WITHOUT THEN WITH IV CONTRAST HISTORY: K85.90 - Acute pancreatitis without necrosis or infection, unspecified COMPARISON: Comparison is made with the prior examination dated 01/20/2025. TECHNIQUE: Axial in and out of phase T1-weighted gradient echo, axial diffusion weighted, and axial and coronal HASTE T2 with fat saturation images were obtained through the abdomen. Subsequently, fat suppressed axial and coronal T1-weighted images were obtained after the intravenous administration of 6 mL Gadavist. FINDINGS: The examination is somewhat limited by patient motion. There is no significant signal loss within the liver on opposed phase imaging to suggest steatosis. No enhancing liver mass is identified. The hepatic and portal veins are patent. There are tiny layering calculi noted in the gallbladder on the current examination. These were not visible on the prior study. There is no gallbladder wall thickening or pericholecystic fluid. The common bile duct is normal in caliber. No intraluminal filling defects are identified to suggest choledocholithiasis. The pancreas is unremarkable. No enhancing pancreatic mass is identified. The pancreatic duct is normal in caliber. There is no evidence of pancreas divisum. The spleen and adrenals are unremarkable. The kidneys are unremarkable. There is no hydronephrosis. No retroperitoneal lymphadenopathy or ascites is identified in the upper abdomen. The visualized bones demonstrate normal marrow signal intensity. MR/MR abdomen wo/w con IMPRESSION: 1. Cholelithiasis. No evidence of choledocholithiasis. 2. Unremarkable appearing pancreas without evidence of a mass of pancreas divisum. Electronically signed by: Rajendra Nuñez MD 03/15/2025 02:26 PM EDT
[2025-03-15] MEDS: gadobutroL 7.5 ML VIAL IVPUSH (13:47)
--- OUTSIDE RECORDS SUMMARY | 2025-03-15 14:53 | XMS_ITS | Data Portability ---
Author Organization [facility], autoContract Address [address] [place] [address] Assessment No assessment recorded. Plan of Treatment Reminders Order Date Submit Date Provider Last Modified By Organization Details Last Modified Time Details Appointments None recorded. Lab None recorded. Referral None recorded. Procedures None recorded. Surgeries None recorded. Imaging None recorded. Medication Orders ammonium lactate 12 % lotion 2020 021 [facility][id number], [address], [place], [address], 15:37:21 Patient TargetsNo targets recorded. Patient Instructions Encounter Date Encounter Id Patient Instructions Last Modified By Organization Details Last Modified Time 10/18/2020 [id number] 1.) Office visit with DM foot exam [...] regular follow up evaluation by PCP and/or looper fixer. 6.) Return 3 months for DM check up and comprehensive foot care, sooner if problems. Not available 10/18/2020 12:32:14 01/28/2021 [id number] 1.) Office visit with DM foot exam [...] regular follow up evaluation by PCP and/or looper fixer. 6.) Return 3 months for DM check up and comprehensive foot care, sooner if problems. Not available 01/28/2021 15:01:30 02/18/2021 [id number] Warranty/Receipt New shoe break-in period Wear your [...] and the shoes appear to accommodate the patient s conditions of Other hammer toe(s) (acquired), right foot 2 , and Other hammer toe(s) (acquired), left foot 2 . The shoes fit with minimal slippage of the patient s foot. A statement of certifying physician [...] for a follow-up on a PRN basis. [email or web address] Not available 10/18/2021 09:50:05 05/06/2021 [id number] 1.) Office visit with DM foot exam [...] regular follow up evaluation by PCP and/or looper fixer. 6.) Return 3 months for DM check up and comprehensive foot care, sooner if problems. Not available 05/07/2021 08:22:47 08/09/2021 [id number] dedo en martillo : instrucciones de cuidado [...] regular follow up evaluation by PCP and/or looper fixer. 6.) Return 3 months for DM check up and comprehensive foot care, sooner if problems. I am prescribin. 1 Left and 1 Right - [employer] Medley S325-1 Black, Hook & Loop depth-inlay [...] Address Organization Details Recorded Time Diabetes mellitus [id number] Active Min Rogers DPM [address] [place], [address], [facility] [employer] [facility] 5 12:50:43 Disorder o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 mellitus 512455921 Active 2017 Min Rogers DPM [address] [place], [address], [facility] [employer] [facility] 8 13:27:17 Overweight 524029033 Active 2019 Min Rogers DPM [address] [place], [address], [facility] [employer] [facility] 0 17:15:07 Uncontrolle d type 2 diabetes mellitus 798244362 Completed 01/21/2018 Min Rogers DPM [address] [place], [address], [employer] [facility] [facility] 8 13:27:22 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 178865702 Active Min Rogers DPM [address], [place], [address] [place] [address] 7, [facility] [employer] [facility] 12:39:04 Ingrowing nail 454397650 Active Min Roegrs DPM [address] [place], [address], [facility] [facility] 5 12:39:04 Edema 675249096 Active Min Rogers DPM [address] [place], [address], [facility] [employer] [facility] 5 13:32:56 Peripheral venous insufficien cy 67917690 Active Min Rogers DPM [address] [place], [address], [facility] 5 13:32:56 Pain in limb 17691221 Active Min Rogers DPM [address] [place], [address], [facility] - [facility] 5 12:39:04 Hammer toe 508373095 Active Min Rogers DPM [address] [place], [address], [facility] 12:50:43 Acquired cavus deformity of foot 67601380 Active Min Rogers DPM [address] [place], [address], [facility] - [facility] 12:50:43 Problem Notes None recorded. Procedures Surgical History Date Name Laterality Status Provider Name and Address Organization Details Recorded Time 1 Nail Debridement completed Min Rogers DPM [address] [place], [address], [facility] 08/09/2021 15:47:04 1 Nail Debridement completed Min Rogers DPM [address] [place], [address], [facility] 05/07/2021 08:22:47 1 Nail Debridement completed Min Rogers DPM [address] [place], [address], [facility] - [facility] 01/28/2021 15:00:03 1 Nail Debridement completed Min Rogers DPM [address] [place], [address], [facility] - [facility] 10/18/2020 12:32:14 0 Nail Debridement completed Min Rogers DPM [address] [place], [address], [facility] - [facility] 07/16/2020 12:25:52 0 Nail Debridement completed Min Rogers DPM [address] [place], [address], [facility] [employer] [facility] 04/12/2020 11:12:51 0 Nail Debridement completed Min Rogers DPM [address] [place], [address], [facility] - [facility] 01/26/2020 15:11:05 0 Nail Debridement completed Min Rogers DPM [address] [place], [address], [facility] 10/31/2019 09:07:59 9 Nail Debridement completed Min Rogers DPM [address] [place], [address], [facility] 08/26/2019 16:10:32 9 Cortisone Injection completed Min Rogers DPM [address] [place], [address], [facility] 06/09/2019 08:55:55 9 Nail Debridement completed Min Rogers DPM [address] [place], [address], [facility] - [facility] 06/09/2019 09:15:28 9 Nail Debridement completed Min Rogers DPM [address] [place], [address], [facility] 03/10/2019 13:36:34 9 Nail Debridement completed Min Rogers DPM [address] [place], [address], [facility] 12/28/2018 09:42:50 9 Nail Debridement completed Min Rogers DPM [address] [place], [address], [facility] 10/19/2018 13:15:54 8 Cortisone Injection completed Min Rogers DPM [address] [place], [address], [facility] - [facility] 07/29/2018 11:08:29 8 Nail Debridement completed Min Rogers DPM [address] [facility], [place], [address], [facility] - [facility] 07/29/2018 13:09:03 8 Nail Debridement completed Min Rogers DPM [address] [facility], [place], [address], [facility] - [facility] 05/13/2018 10:01:58 8 Nail Debridement completed Min Rogers DPM [address] [facility], [place], [address], [facility] - [facility] 03/04/2018 09:31:43 8 Nail Debridement completed Min Rogers DPM [address] [place], [address], [facility] 11/26/2017 14:37:36 5 Nail Debridement completed Min Rogers DPM [address] [place], [address], [facility] 02/01/2015 12:39:04 5 Nail Debridement completed Min Rogers DPM [address] [facility], [place], [address], [facility] 10/31/2014 13:32:39 4 Nail Debridement completed Min Rogers DPM [address] [place], [address], [facility] 08/03/2014 10:36:36 4 Nail Debridement completed Min Rogers DPM [address] [facility], [place], [address], [facility] 05/11/2014 10:36:07 4 Nail Debridement completed Min Rogers DPM [address] [place], [address], [facility] - [facility] 02/20/2014 09:20:10 4 Nail Debridement completed Gregor Mckeon [place] - [facility] 12/07/2013 17:55:59 3 Nail Debridement completed [facility] 08/15/2013 18:15:52 3 Nail Debridement completed Min Rogers DPM [address] [place], [address], [facility] 05/08/2013 13:57:00 3 Nail Debridement completed Min Rogers DPM [address] [place], [address], [facility] 02/03/2013 13:55:58 3 Nail Debridement completed Min Rogers DPM [address] [place], [address], [facility] 11/15/2012 12:39:57 Imaging Results None recorded. Procedure Notes None recorded. Medical Equipment None Reported. Allergies Allergen ID Allergen Name Allergen Category Reaction Reaction Severity Criticality Documentation Date Start Date Code Code System Note Provider Name and Address Organization Details Recorded Time 921 Product containin g penicilli n (product) medicatio n Not available Not available Not available 10/14/2012 43013 8001 SNOMED Gregor [facility] 3 15:13:05 Medications Name Sig Start Date [...] Ult-Fine II 1 mL 31 gauge x 16 active Not Available Not Available Not Available [...] Available Not Available No t Available FreeStyle Tillman Lite kit active Not Available Not Available [...] 157.48 cm Min Rogers, SEDRICKM [address] [place], [address], [place] [employer] 10/18/2020 11:14:48 Date Recorded Body height Provider Name an d Address Organization Details Last Updated DateTime 01/28/2021 157.48 cm Min Rogers, SEDRICKM [address] [place], [address], [place] [employer] 01/28/2021 14:38:33 Date Recorded Body height Provider Name an d Address Organization Details Last Updated DateTime 02/18/2021 157.48 cm Min Rogers, SEDRICKM [address] [place], [address], [place] [facility] 10/18/2021 09:42:13 Date Recorded Body height Provider Name an d Address Organization Details Last Updated DateTime 05/06/2021 157.48 cm Min Rogers, SEDRICKM [address] [place], [address], [place] [facility] 05/06/2021 16:15:17 Date Recorded Body height Provider Name an d Address Organization Details Last Updated DateTime 08/09/2021 157.48 cm Min Rogers, SEDRICKM [address] [place], [address], [place] [employer] [facility] 08/09/2021 15:31:11 Social History Question Answer Notes LastModified by Organizat ion Details LastModified Time Tobacco Smoking Status Never Smoker Not Available [employer] 07/06/2020 03:15:47 Are You Blind Or Do You Have Difficulty Seeing? No [id number] Information not available 07/06/2020 Are You Deaf Or Do You Have Serious Difficulty Hearing? No [id number] Information not available 07/06/2020 Which Illicit Or Recreational Drugs Have You Used? Never [id number] Information not available 07/06/2020 Marital Status [email or web address] Informatio n not available 10/17/2012 What Was The Date Of Your Most Recent Tobacco Screening? 12/28/2018 [id number] Information not available 07/06/2020 Do You Have Difficulty Walking Or Climbing Stairs? No [id number] Information not available 07/06/2020 Sex: Unknown Functional Status Question Answer Note LastModified by Organizat ion Details LastModified Time What is your level of alcohol consumption? None [id number] Information not available 07/06/2020 Do you have difficulty doing errands alone? No [id number] Information not available 07/06/2020 What is your occupation? Disabled - Mental Illness [id number] Information not available 07/06/2020 Do you have difficulty dressing or bathing? No [id number] Information not available 07/06/2020 Mental Status Question Answer Note LastModified by Organization D etails LastModified Time Do you have difficulty concentrating, remembering or making decisions? No [id number] Information no t available 07/06/2020 Family History [...] Code Diagnosis Note 1661 Min Rogers DPM [facility] [address] [place] [address] 10/14/2012 15:09:24 10/18/2012 09:39:25 3202 Min Rogers DPM [facility] [address] [place] [address] 11/11/2012 13:38:31 11/15/2012 16:52:19 7753 Min Rogers [facility] [address] [place] [address] 02/03/2013 13:22:42 02/03/2013 14:21:55 9796 Min Rogers [facility] [address] [place] [address] 05/06/2013 13:22:19 05/06/2013 13:57:43 49241 Min Rogers Danny [facility] [address] [place] [address] 08/15/2013 10:36:55 08/15/2013 11:25:59 Uncontrolled type 2 diabetes mellitus 909608217 Ingrowing nail 741140268 Pain in limb 60132962 Onychomyco sis due to dermatophyte 062541208 Peripheral venous insufficiency 75193561 Edema 309261475 Acquired c avus deformity of foot 42538321 Hammer toe 911549677 70158 Min Rogers DPM [facility] [address] [place] [address] 10/05/2013 11:52:21 10/05/2013 12:01:29 Uncontrolled type 2 diabetes mellitus 570305873 Hammer toe 078928289 93195 [facility] [address] [place] [address] 12/07/2013 12:16:56 12/07/2013 12:42:09 Uncontrolled type 2 diabetes mellitus 805002418 Hammer toe 983576088 Onychomyco sis due to dermatophyte 511249277 Pain in limb 36278161 Ingrowing nail 922283365 28142 Min Rogers [facility] [address] [place] [address] 02/16/2014 09:54:34 02/16/2014 10:32:43 Onychomycosis due to dermatophyte 741340387 Ingrowing nail 642039025 Pain in limb 42023237 Diabetes mellitus 18740553 Peripheral venous insufficiency 45112853 Edema 859576380 Acquired c avus deformity of foot 58635187 Hammer toe 266303023 38069 Min Rogers DPM [facility] [address] [address] 05/11/2014 10:23:52 05/11/2014 10:24:21 Onychomycosis due to dermatophyte 329666369 Ingrowing nail 555804468 Pain in limb 79017724 Diabetes mellitus 94370898 Peripheral venous insufficiency 78676323 Edema 179697645 Acquired c avus deformity of foot 29015290 Hammer toe 094877472 18326 Min Rogers DPM [facility] [address] [address] 08/03/2014 09:27:24 08/03/2014 10:21:02 Onychomycosis due to dermatophyte 267426433 Ingrowing nail 238655703 Pain in limb 61484402 Diabetes mellitus 51946282 Peripheral venous insufficiency 83815818 Edema 965767456 Acquired c avus deformity of foot 93630207 Hammer toe 918339620 98205 Min Rogers DPM [facility] [address] [address] 10/27/2014 09:16:37 10/27/2014 10:30:34 Onychomycosis due to dermatophyte 375015975 Ingrowing nail 382356962 Pain in limb 44184410 Diabetes mellitus 68689795 Peripheral venous insufficiency 48148906 Edema 409716814 Acquired c avus deformity of foot 70050457 Hammer toe 835397507 25733 Min Rogers DPM [facility] [address] [address] 11/02/2014 13:10:07 11/02/2014 13:21:56 Hammer toe 589218517 Acquired c avus deformity of foot 77014929 Uncontroll ed type 2 diabetes mellitus 856193390 61904 Min Rogers DPM [facility] [address] [address] 11/13/2014 12:15:16 11/13/2014 12:33:38 Acquired cavus deformity of foot 64189787 Diabetes mellitus 22208267 Hammer toe 061050466 81477 Min Rogers DPM [facility] [address] [address] 01/18/2015 13:54:36 01/18/2015 14:06:52 Onychomycosis due to dermatophyte 254839907 Ingrowing nail 713900533 Pain in limb 01838945 Uncontroll ed type 2 diabetes mellitus 757774291 17543 Min Rogers DPM [facility] [address] [place] [address] 11/26/2017 10:25:50 11/26/2017 11:21:38 Overweight 004595085 E66.3 Ingrowing nail 753861546 L60.0 Pain in toe 270977330 M7 9.676 Disorder o 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 mellitus 235024066 E11.49 Hammer toe 094040634 M20 .41 M20.42 Onychomycosis 779082507 B35.1 04006 Min Rogers DPM [facility] [address] [place] [address] 01/21/2018 13:25:31 01/21/2018 13:28:43 Disorder o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 mellitus 922171342 E11.49 Hammer toe 638717913 M20 .41 M20.42 84060 Min Rogers DPM [facility] [address] [place] [address] 02/17/2018 11:45:01 02/17/2018 12:02:11 Disorder o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 mellitus 400475474 E11.49 Hammer toe 275069115 M20 .41 M20.42 05240 Min Rogers DPM [facility] [address] [place] [address] 03/04/2018 08:59:26 03/04/2018 09:00:37 Onychomycosis due to dermatophyte 623859217 B35.1 Ingrowing nail 495355379 L60.0 Pain in limb 92402938 M7 9.609 Uncontroll ed type 2 diabetes mellitus 004568696 E11.65 39565 Min Rogers DPM [facility] [address] [place] [address] 05/13/2018 09:31:40 05/13/2018 09:56:12 Ingrowing nail 294894806 L60.0 Pain in limb 96536478 M7 9.609 Uncontroll ed type 2 diabetes mellitus 659516329 E11.65 Onychomycosis 578699542 B35.1 Obese 082601664 E66.9 22110 Min Rogers DPM [facility] [address] [place] [address] 07/29/2018 11:05:10 07/29/2018 11:15:42 Arthritis of right subtalar joint 8833175148 2343559 M13.871 Pain of ri ght ankle joint 4240157487 3780958 M25.571 Onychomycosis 602227988 B35.1 Ingrowing nail 620597568 L60.0 Uncontroll ed type 2 diabetes mellitus 643297317 E11.65 Obese 999403921 E66.9 Plantar fasciitis 437583 003 M72.2 Pain in toe 508253041 M7 9.676 34414 Min Rogers DPM [facility] [address] [place] [address] 08/02/2018 09:02:54 08/02/2018 09:39:55 Foot pain 64576745 M79.671 Arthritis of right subtalar joint 3812669572 5786592 M13.871 Plantar fasciitis 172406 003 M72.2 Onychomycosis 151530084 B35.1 Ingrowing nail 807499980 L60.0 Pain in toe 418009989 M7 9.676 Uncontroll ed type 2 diabetes mellitus 108601011 E11.65 Obese 858887156 E66.9 39622 Min Rogers DPM [facility] [address] [place] [address] 08/10/2018 11:41:12 08/10/2018 12:40:42 Plantar fasciitis 389515644 M72.2 Foot pain 94248587 M79.6 71 M79.672 07504 Min Rogers DPM [facility] [address] [place] [address] 10/19/2018 11:14:44 10/19/2018 13:16:01 Onychomycosis 713661384 B35.1 Ingrowing nail 248350245 L60.0 Pain in limb 92157111 M7 9.609 Uncontroll ed type 2 diabetes mellitus 541200044 E11.65 Obese 828855681 E66.9 02474 Min Rogers DPM [facility] [address] [place] [address] 12/28/2018 08:27:54 12/28/2018 09:22:02 Onychomycosis 581985668 B35.1 Ingrowing nail 563112101 L60.0 Pain in limb 05671087 M7 9.609 Uncontroll ed type 2 diabetes mellitus 678280699 E11.65 Obese 485874098 E66.9 82408 Min Rogers DPM [facility] [address] [place] [address] 03/10/2019 11:30:47 03/10/2019 12:35:36 Onychomycosis 166452184 B35.1 Ingrowing nail 846887542 L60.0 Pain in limb 29886360 M7 9.609 Uncontroll ed type 2 diabetes mellitus 178944684 E11.65 Obese 645388247 E66.9 23546 Min Rogers DPM [facility] [address] [place] [address] 06/09/2019 08:31:13 06/09/2019 09:28:11 Onychomycosis 733655173 B35.1 Ingrowing nail 712823459 L60.0 Pain in limb 55619970 M7 9.609 Uncontroll ed type 2 diabetes mellitus 754532284 E11.65 Obese 761785299 E66.9 Osteoarthr itis of subtalar joint 189579263 M19.072 Foot pain 34739865 M79.6 72 37002 Min Rogers DPM [facility] [address] [place] [address] 08/26/2019 15:57:18 08/26/2019 16:06:24 Overweight 387822219 E66.3 Onychomycosis 859955246 B35.1 Ingrowing nail 966261207 L60.0 Uncontroll ed type 2 diabetes mellitus 461661900 E11.65 Pain in toe 858446582 M7 9.676 17716 Min Rogers DPM [facility] [address] [place] [address] 10/31/2019 08:53:06 10/31/2019 09:32:13 Onychomycosis 500767204 B35.1 Ingrowing nail 827687707 L60.0 Pain in toe 041782005 M7 9.676 Overweight 732661251 E66 .3 Disorder o 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 mellitus 915211052 E11.49 Hammer toe 425266286 M20 .41 M20.42 92629 SEDRICK Villavicencio [facility] [address] [place] [address] 12/19/2019 17:27:14 12/19/2019 17:36:09 Disorder o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 mellitus 910889999 E11.49 Hammer toe 323859209 M20 .41 M20.42 34555 Min Rogers DPM [facility] [address] [place] [address] 01/26/2020 13:22:34 01/26/2020 15:00:52 Onychomycosis 130443400 B35.1 Ingrowing nail 673552938 L60.0 Pain in toe 585052928 M7 9.676 Disorder o 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 mellitus 358354168 E11.49 Hammer toe 184403635 M20 .41 M20.42 Overweight 199758709 E66 .3 02857 Min Rogers DPM [facility] [address] [place] [address] 7 04/12/2020 11:04:10 04/12/2020 11:16:03 Onychomycosis 089898330 B35.1 Ingrowing nail 337626149 L60.0 Pain in toe 273748246 M7 9.676 Disorder o 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 mellitus 526115742 E11.49 Hammer toe 218051874 M20 .41 M20.42 Overweight 216947362 E66 .3 84560 Min Rogers DPM [facility] [address] [place] [address] 07/16/2020 12:08:06 07/16/2020 12:20:12 Onychomycosis 188254078 B35.1 Ingrowing nail 364850801 L60.0 Pain in toe 006227671 M7 9.676 Disorder o 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 mellitus 825359485 E11.49 Hammer toe 906036739 M20 .41 M20.42 Overweight 011310152 E66 .3 27888 SEDRICK Villavicencio [facility] [address] [place] [address] 10/18/2020 11:06:15 10/18/2020 11:53:04 Onychomycosis 897132683 B35.1 Ingrowing nail 613446451 L60.0 Pain in toe 930968566 M7 9.676 Disorder o 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 mellitus 161304057 E11.49 Hammer toe 085496945 M20 .41 M20.42 Overweight 946459903 E66 .3 85277 SEDRICK Villavicencio [facility] [address] [place] [address] 01/28/2021 14:36:07 01/28/2021 14:49:01 Onychomycosis 506724084 B35.1 Ingrowing nail 392880241 L60.0 Pain in toe 934400782 M7 9.676 Disorder o 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 mellitus 778339626 E11.49 Obesity 782806220 E66.9 79454 Min Rogers DPM [facility] [address] [place] [address] 7 05/06/2021 16:07:24 05/06/2021 16:26:10 Onychomycosis 979652729 B35.1 Ingrowing nail 797631977 L60.0 Pain in toe 037789833 M7 9.676 Disorder o 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 mellitus 920800599 E11.49 Obesity 392639254 E66.9 21871 Min Rogers DPM [facility] [address] [place] [address] 7 08/09/2021 15:26:42 08/09/2021 15:31:37 Foot callus 815168552 L84 Onychomycosis 639312470 B35.1 Ingrowing nail 877875575 L60.0 Pain in toe 454257640 M7 9.676 Disorder o 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 mellitus 793706601 E11.49 Obesity 595189618 E66.9 Hammer toe 122859516 M20 .41 M20.42 75665 Min Rogers DPM [facility] [address] [place] [address] 10/18/2021 09:41:46 10/18/2021 09:52:37 Disorder o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 mellitus 573517885 E11.49 Hammer toe 346097648 M20 .41 M20.42 Health Concerns Section Related Observation LastModified by Organization Detai ls LastModified Time None Recorded Concern Status LastModified by Organization Details LastModified Time None Recorded Advance Directives Directive None Recorded Payers Insurance Date Sequence Insurance Name Policy Number Policy Orozco Covered Member ID Orozco Member ID Guarantor Name 10/18/2021 1 [place] Bessie Alfonso [id number] Bessie Alfonso 06/09/2019 1 [facility] (MEDICAID HMO) [id number] Bessie Alfonso [id number] Bessie Alfonso 06/09/2019 1 [place] Bessie Alfonso [id number] Bessie Alfonso 10/18/2021 1 [facility] - DOS PRIOR TO 2022 (MEDICAID REPLACEMENT - HMO) [facility]so [id number] Bessie Alfonso Notes Date Note Type Note [...] symptoms suggestive of coronavirus COVID-19 disease. Min Rogers DPM [address] [place], [address], [facility] 10/18/2020 12:33:21 01/28/2021 text/html Bessie presents f [...] disease (fully vaccinated). Min Rogers DPM [address] [place], [address], [facility] 01/28/2021 15:02:07 05/06/2021 text/html Bessie presents f [...] disease (fully vaccinated). Min Rogers DPM [address] [place], [address], [facility] 05/07/2021 08:23:15 08/09/2021 text/html Bessie presents f [...] coronavirus COVID-19 disease (vaccinated). Min Rogers DPM [address] [place], [phone], [facility] 08/19/2021 12:11:02 OBGyn Episode No OBEpisode recorded.
== END 2025-03-15 12:47 | disposition home or self-care (01) ==
LOC: HO.MRI 12:46
PROVIDERS: PCP Internal Medicine; Visit Provider Internal Medicine Gastroenterology
DX: K85.90 Acute pancreatitis without necrosis or infection, unspecified (principal)
CPT/HCPCS: 74183; A9585

== ENCOUNTER → 2025-03-15 12:57 | Outpatient (BNV) | payer OTHER, SELFPAY | PROVIDERS: PCP Internal Medicine; Visit Provider Radiology Diagnostic Radiology | DX: K80.20 Calculus of gallbladder without cholecystitis without obstruction (principal) | CPT/HCPCS: 74183 ==

== ENCOUNTER 2025-03-21 08:54 | Inpatient (IN) | payer OTHER, SELFPAY ==
--- OUTSIDE RECORDS SUMMARY | 2023-10-12 12:07 | XMS_ITS | Continuity of Care Document ---
Author Organization [facility] Address 1 [facility] [address] [place] [address] Phone Care Team Providers Care Rn Birthing Name Role Phone Blaise FREEMAN, Ujjwala Unavailable [...] THE SKIN ONCE EVERY WEEK. DELIVER TO [place] - Active acetaminophen ER 650 mg tablet,extended [...] Active clonazepam 0.5 mg tablet RX BY [facility] -- DO NOT REFILL -- REDUCED IN [...] Active PLEASE DELIVER TO [address] [facility] ELDERCARE pen needle, diabetic 31 gauge x 5/16 use 4 times a day as directed - Active ammonium lactate 12 % topical cream apply to affected area BID - Active Humalog U-100 Insulin 100 unit/mL subcutaneous solution inject by subcutaneous route pre lunch on per Sliding scale - Active Please send to [place]. Please do not autorefill.\Un julianna 200-no insulin. 201-250-4 units, 251-300-6 units, 301-350-8 units, over 350 inform clinician Natasha Ultra Strength 4 %-30 %-10 % topical cream apply to affrected area up to 3 times a day as directed - Active trazodone 100 mg tablet RX BY [facility] -- DO NOT REFILL -- take 1 tablet by oral route every bedtime - Active acetaminophen 325 mg tablet FOR USE AT DAY PROGRAM -- take 2 tablet by oral route every 4 hours as needed for pain, please do not exceed 2 doses/day at - Active polyethylene glycol 3350 17 gram/dose oral powder FOR USE AT [place] DAY PROGRAM - mix 17g into water [...] Location Reason(s) For Visit Diagnoses Date Provider Critical access hospital, [address], [place], [place], [id number], [place] tel:[phone] Fithian No Information Sep- 4 Bhagavatula Ujjwala. [address] [place], [id number], [place]. tel:[phone] Critical access hospital, [address], [place], [place], [id number], [place] tel:[phone] Fithian No Information Feb-2 3 Dorothea Barb. [address] [facility] [place], [id number], [place]. tel:[phone] Critical access hospital, [address], [place], [place], [id number], [place] tel:[phone] Fithian No Information Feb- 3 Bhagavatula Umarlinjwala. [address] [place], [id number], [place]. tel:[phone] Critical access hospital, [address], [place], [place], [id number], [place] tel:[phone] Fithian Other chronic pain Feb-0 3 Jojo Ojeda. [address] [place] [address], [id number], [place]. tel:[phone] Critical access hospital, [address], [place], [place], [id number], [place] tel:[phone] Fithian Muscle weakness (generalized)Other chronic pain January- 3 Jojo Ojeda. [address] [place], [place], [id number], [place]. tel:[phone] Critical access hospital, [address], [place], [place], [id number], [place] tel:[phone] Fithian Other chronic painMuscle weakness (generalized) January- 3 Uribe Lynette. [address] [place], [place], [id number], [place]. tel:[phone] Critical access hospital, [address], [place], [place], [id number], [place] tel:[phone] Fithian Other chronic pain January- 3 Uribe Lynette. [address] [place] [address], [place], [id number], [place]. tel:[phone] Critical access hospital, [address], [place], [place], [id number], [place] tel:[phone] Fithian Acute right-sided lo w back pain with right-sided sciatica January- 3 Baldemar Landrum. [address] [place], [place], [id number], [place]. tel:[phone] Critical access hospital, [address] [facility] [address], [place], [place], [address], [place] tel:[phone] Fithian Acute right-sided lo w back pain with right-sided sciatica January-0 3 Baldemar Landrum. [address] [facility] [place], [id number], [place]. tel:[phone] Critical access hospital, [address] [facility] [address], [place], [place], [address], [place] tel:[phone] Fithian Encounter for rehabilitation evaluationAcute right-sided low back pain with right-sided sciatica January-0 3 Baldemar Landrum. [address] [facility] [place], [id number], [place]. tel:[phone] Critical access hospital, [address] [facility] [address], [place], [place], [address], [place] tel:[phone] Fithian Lower extremity edema (chief complaint) Localized edemaRadicular pain May-0 3 Blaise Nieto. [address] [facility] [place], [id number], [place]. tel:[phone] Critical access hospital, [address], [place], [place], [id number], [place] tel:[phone] Fithian Lumbago with sciatic a, right side 3 Raffaele Kaden. [address] [place], [place], [id number], [place]. tel:[phone] [facility], [address] [facility], [place], [place], [id number], [place] tel:[phone] Fithian No Information 3 Raffaele Kaden. [address] [place], [place], [id number], [place]. tel:[phone] [facility] hospital, [facility] [address], [place], [place], [id number], [place] tel:[phone] Fithian No Information 3 Raffaele Kaden. [address] [place], [place], [id number], [place]. tel:[phone] [facility] hospital, [address] [facility] [address], [place], [place], [address], [place] tel:[phone] Fithian Encounter for genera l adult medical examination without abnormal findings 3 Pedro Luis Crystal. [address] [place], [place], [address], [place]. tel:[phone] Critical access hospital, [address] [facility] [address] [facility], [place], [place], [address], [place] tel:[phone] Fithian OV (chief complaint) Localized edemaLeg cramps 3 Bhagavatula Ujjwala. [address] [place], [place], [address], [place]. tel:[phone] Critical access hospital, [address] [facility] [address], [place], [place], [id number], [place] tel:[phone] Fithian No Information 3 Bhagavatula Ujjwala. [address] [place], [place], [address], [place]. tel:[phone] Critical access hospital, [address] [address], [place], [place], [address], [place] tel:[phone] Fithian OV (chief complaint) Bipolar 1 disorder 3 Bhagavatula Ujjwala. [address] [place], [place], [address], [place]. tel:[phone] Critical access hospital, [address] [address], [place], [place], [address], [place] tel:[phone] Fithian No Information 3 Bhagavatula Ujjwala. [address] [place], [place], [id number], [place]. tel:[phone] Critical access hospital, [address] [place] [address], [place], [place], [address], [place] tel:[phone] Fithian No Information 3 Raffaele Alfonso. [address] [place], [place], [address], [place]. tel:[phone] Critical access hospital, [address] [address], [place], [place], [address], [place] tel:[phone] Fithian No Information 0 3 Pedro Luis Crystal. [address] [place], [place], [address], [place]. tel:[phone] [facility], [address] [facility] [address] [place] [address], [id number], [place] tel:[phone] Fithian RAJENDRA (chief complaint) Bipolar 1 disorderGAD (generalized anxiety disorder)Schizophrenia, unspecified typeHypertension, unspecified typeHypercholesteremiaT ype 2 diabetes mellitus without complication, with long-term current use of insulinLong term current use of insulinHypothyroidism, unspecified typeLong-term current use of injectable noninsulin antidiabetic medicationGastroesophag eal reflux disease without esophagitisEdema, unspecified typeTremorExcessive cerumen in left ear canal 3 Pedro Luis Crystal. [address] [facility] [place], [id number], [place]. tel:[phone] Critical access hospital, [address], [place], [place], [address], [place] tel:[phone] Fithian No Information 3 Pedro Luis Crystal. [address] [place], [place], [id number], [place]. tel:[phone] Critical access hospital, [address], [place], [place], [address], [place] tel:[phone] Fithian Skin excoriation 3 Pedro Luis Crystal. [address] [place], [place], [id number], [place]. tel:[phone] Critical access hospital, [facility] [address], [place], [place], [id number], [place] tel:[phone] Fithian Encounter for nutritional assessmentOther obesityDeficiency of other specified nutrient elements 3 Renetta Alvares. [address] [place], [place], [address], [place]. tel:[phone] Critical access hospital, [address] [facility] [address] [facility], [place], [place], [address], [place] tel:[phone] Fithian OV (chief complaint) Left foot pain 3 Pedro Luis Crystal. [address] [place], [place], [address], [place]. tel:[phone] Critical access hospital, [address] [facility] [address], [place], [place], [address], [place] tel:[phone] Fithian No Information 3 Raffaele Alfonso. [address] [place], [place], [id number], [place]. tel:[phone] Critical access hospital, [address], [place], [place], [id number], [place] tel:[phone] Fithian Encounter for rehabilitation evaluationChronic bilateral low back pain, unspecified whether sciatica presentOther chronic painPain of both shoulder jointsPain in left shoulder 2- 3 Ren Ruelas. [address] [place], [address], [place]. tel:[phone] Critical access hospital, [address], [place], [place], [id number], [place] tel:[phone] Fithian Other lack of coordinationChronic midline low back pain, unspecified whether sciatica presentOther chronic pain 3 Ren Ruelas. [address] [place], [place], [address], [place]. tel:[phone] Critical access hospital, [address], [place], [place], [address], [place] tel:[phone] Fithian Other lack of coordination Aug-2 2 Ren Ruelas. [address] [place], [address], [place]. tel:[phone] Critical access hospital, [address], [place], [place], [address], [place] tel:[phone] Fithian Other chronic painOt her lack of coordination Aug- 2 Ren Ruelas. [address] [place], [place], [address], [place]. tel:[phone] Critical access hospital, [address], [place], [place], [id number], [place] tel:[phone] Fithian Other lack of coordinationChronic bilateral low back pain, unspecified whether sciatica presentOther chronic pain Dec-2 - 2 Ren Ruelas. [address] [place], [place], [address], [place]. tel:[phone] Critical access hospital, [address], [place], [place], [id number], [place] tel:[phone] Fithian Muscle weakness (generalized) Dec-2 0-202 2 Ren Jessenia. [address] [place], [place], [address], [place]. tel:[phone] Critical access hospital, [address], [place], [place], [address], [place] tel:[phone] Fithian Oropharyngeal dysphagia Dec-1 4-202 2 Caselden Sofiya. [address] [place], [place], [address], [place]. tel:[phone] Critical access hospital, [address], [place], [place], [address], [place] tel:[phone] Fithian Other lack of coordination Dec-1 3-202 2 Renbettye Ruelas. [address] [place], [place], [id number], [place]. tel:[phone] Critical access hospital, [address], [place], [place], [address], [place] tel:[phone] Fithian Other lack of coordination Dec-0 8- 2 Ren Jessenia. [address], [place], [place], [address], [place]. tel:[phone] Critical access hospital, [address], [place], [place], [address], [place] tel:[phone] Fithian Oropharyngeal dysphagia Dec-0 7- 2 Caselden Sofiya. [address], [place], [place], [address], [place]. tel:[phone] Critical access hospital, [address], [place], [place], [id number], [place] tel:[phone] Fithian Alteration in performance of activities of daily living Dec-0 6-202 2 Ren Jessenia. [address] [place], [place], [address], [place]. tel:[phone] Critical access hospital, [address], [place], [place], [address], [place] tel:[phone] Fithian OV (chief complaint) DM type 2 with diabetic peripheral neuropathyLong term (current) use of insulinLong-term (current) use of injectable non-insulin antidiabetic drugs Dec- 2 Pedro Luis Crystal. [address] [place], [place], [address], [place]. tel:[phone] [facility] access hospital, [facility] [address], [place], [place], [address], [place] tel:[phone] Fithian Alteration in performance of activities of daily living 2 Ren Ruelas. [address] [place], [place], [address], [place]. 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 [address] [place], [place], [address], [place]. tel:[phone] Critical access hospital, [facility], [place], [place], [address], [place] tel:[phone] Fithian Encounter for rehabilitation evaluation 2 Ren Ruelas. [address] [place], [place], [address], [place]. tel:[phone] Critical access hospital, [facility] [address], [place], [place], [address], [place] tel:[phone] Fithian Dysphagia, unspecifi ed typeFeeding difficultiesEncounter for nutritional assessment 2 Normile Dia. [address] [place], [place], [id number], [place]. tel:[phone] Critical access hospital, [address] [facility] [address], [place], [place], [address], [place] tel:[phone] Fithian Other chronic pain 2 Uribe Lynette. [address] [place], [place], [address], [place]. tel:[phone] Critical access hospital, [address], [place], [place], [address], [place] tel:[phone] Fithian PHV (chief complaint) Bilateral shoulder pain, unspecified chronicity 2 Pedro Luis Bonilla. [address] [place], [place], [address], [place]. tel:[phone] Critical access hospital, [address], [place], [place], [address], [place] tel:[phone] Fithian Other chronic pain 2 Mcdermott Lucita. [address] [place], [place], [address], [place]. tel:[phone] [facility] hospital, [address] [facility] [address], [place], [place], [address], [place] tel:[phone] Fithian Difficulty in walkin g, not elsewhere classifiedOther chronic pain 2 Uribe Lynette. [address] [place], [place], [address], [place]. tel:[phone] Critical [facility] hospital, [address] [facility] [address], [place], [place], [address], [place] tel:[phone] Fithian No Information 2 Raffaele Alfonso. [address] [place], [place], [id number], [place]. tel:[phone] Critical access hospital, [address], [place], [place], [address], [place] tel:[phone] Fithian Difficulty in walkin g, not elsewhere classifiedOther chronic pain 2 Uribe Lynette. [address] [place], [place], [address], [place]. tel:[phone] Critical access hospital, [address], [place], [address], [place] tel:[phone] Fithian Muscle weakness (generalized) 2 Ren Ruelas. [address] [place], [place], [address], [place]. tel:[phone] Critical access hospital, [address], [place], [place], [address], [place] tel:[phone] Fithian Difficulty in walkin g, not elsewhere classifiedOther chronic painMuscle weakness (generalized) 2 Uribe Lynette. [address] [place], [place], [address], [place]. tel:[phone] Critical access hospital, [address], [place], [place], [address], [place] tel:[phone] Fithian Chronic bilateral lo w back pain, unspecified whether sciatica presentOther chronic pain 2 Baldemar Landrum. [address] [place], [address], [place]. tel:[phone] [facility] hospital, [address] [facility] [address] [address] [place] [address], [id number], [place] tel:[phone] Fithian Difficulty in walkin g, not elsewhere classifiedOther chronic pain 2 Uribe Lynette. [address] [place], [place], [address], [place]. tel:[phone] Critical access hospital, [address], [place], [place], [address], [place] tel:[phone] Fithian Other chronic painMuscle weakness (generalized) 0 2 Uribe Lynette. [address] [place], [place], [address], [place]. tel:[phone] Critical access hospital, [address], [address], [place] tel:[phone] Fithian Chronic bilateral lo w back pain, unspecified whether sciatica presentOther chronic painPain of both shoulder jointsPain in left shoulder Sep-2 2 Ren Jessenia. [address] [facility] [place], [address], [place]. tel:[phone] Critical access hospital, [address] [facility] [address], [place], [place], [address], [place] tel:[phone] Fithian Other chronic pain Sep-2 2 Jojo Ojeda. [address] [place] [address], [place], [place], [address], [place]. tel:[phone] Critical access hospital, [address], [place], [place], [address], [place] tel:[phone] Fithian Muscle weakness (generalized) Sep-2 2 Ren Jessenia. [address], [place], [place], [address], [place]. tel:[phone] Critical access hospital, [facility], [place], [place], [address], [place] tel:[phone] Fithian Muscle weakness (generalized) Sep-2 2 Ren Ruelas. [address] [facility] [place], [address], [place]. tel:[phone] Critical access hospital, [facility] [address], [place], [place], [address], [place] tel:[phone] Fithian Chronic midline low back pain, unspecified whether sciatica presentOther chronic pain Sep-2 0 2 Baldemar Landrum. [address] [facility] [address], [place], [place], [address], [place]. tel:[phone] Critical access hospital, [address] [facility] [address], [place], [place], [address], [place] tel:[phone] Fithian OV (chief complaint) ÓSCAR (generalized anxiety disorder) Sep-2 0 2 Pedro Luis Crystal. [address] [place], [place], [address], [place]. tel:[phone] Critical [facility] hospital, [address] [facility] [address], [place], [place], [address], [place] tel:[phone] Fithian Chronic midline low back pain, unspecified whether sciatica presentOther chronic pain Sep-1 2 Baldemar Landrum. [address] [facility] [place], [address], [place]. tel:[phone] Critical access hospital, [address] [facility] [address], [place], [place], [address], [place] tel:[phone] Fithian Muscle weakness (generalized)Mild cognitive impairment, so stated Sep-1 2 Ren Jessenia. [address] [facility] [place], [address], [place]. tel:[phone] Critical access hospital, [facility], [place], [place], [address], [place] tel:[phone] Fithian No Information Sep-1 2 Pedro Luis Crystal. [address] [facility] [place], [address], [place]. tel:[phone] Critical access hospital, [facility], [place], [place], [id number], [place] tel:[phone] Fithian No Information Sep-0 2 Pedro Luis Crystal. [address] [place], [place], [address], [place]. tel:[phone] Critical access hospital, [facility], [place], [place], [address], [place] tel:[phone] Fithian Encounter for rehabilitation evaluationChronic bilateral low back pain without sciaticaOther chronic pain Sep-0 8 2 Baldemar Landrum. [address] [facility] [place], [address], [place]. tel:[phone] Critical access hospital, [address] [facility] [address], [place], [place], [address], [place] tel:[phone] Fithian Muscle weakness (generalized) Sep-0 2-202 2 Ren Jessenia. [address] [place], [address], [place]. tel:[phone] Critical access hospital, [address], [place], [place], [address], [place] tel:[phone] Fithian No Information 2 Pedro Luis Crystal. [address], [place], [place], [address], [place]. tel:[phone] Critical access hospital, [address], [place], [place], [address], [place] tel:[phone] Fithian Encounter for rehabilitation evaluationMuscle weakness (generalized) 2 Ren Jessenia. [address], [place], [place], [address], [place]. tel:[phone] Critical access hospital, [address], [place], [place], [id number], [place] tel:[phone] Fithian Encounter for nutritional assessment 2 Waldemar Hammera. [address], [place], [address]. tel:[phone] [facility] hospital, [address] [facility] [address], [place], [place], [id number], [place] tel:[phone] Fithian Encounter for rehabilitation evaluation 2 Ren Ruelas. [address], [place], [place], [address], [place]. tel:[phone] Critical access hospital, [address], [place], [place], [address], [place] tel:[phone] Fithian Encounter for rehabilitation evaluation 2 Baldemar Landrum. [address] [facility] [address], [place], [place], [address], [place]. tel:[phone] Critical access hospital, [address], [place], [place], [address], [place] tel:[phone] Fithian Herpesviral vesicula r dermatitis 2 Pedro Luis Crystal. [address], [place], [place], [address], [place]. tel:[phone] Critical access hospital, [address] [facility] [address], [place], [place], [address], [place] tel:[phone] Fithian Encounter for genera l adult medical examination without abnormal findingsEssential (primary) hypertension 2 Pedro Luis Bonilla. [address] [facility] [place], [address], [place]. tel:[phone] Critical access hospital, [facility] [address], [place], [place], [address], [place] tel:[phone] Fithian PEE (chief complaint) Hypertension, unspecified typeHypercholesteremiaD M type 2 with diabetic peripheral neuropathyLong term (current) use of insulinGastroesophageal reflux disease, unspecified whether esophagitis presentGenital herpes simplex, unspecified siteBipolar 1 disorderHypothyroidism, unspecified typeGAD (generalized anxiety disorder)Schizophrenia, unspecified typeTremor 2 Pedro Luis Crystal. [address], [place], [place], [address], [place]. tel:[phone] Critical access hospital, [facility], [place], [place], [address], [place] tel:[phone] Fithian Hypertension, unspecified typeHypercholesteremiaD M type 2 with diabetic peripheral neuropathyHypothyroidis m, unspecified typeHerpesviral infection, unspecified 2 Dorothea Day. [address], [place], [place], [address], [place]. tel:[phone] Critical access hospital, [facility], [place], [place], [address], [place] tel:[phone] Fithian Medication course changed 2 Dorothea Day. [address] [place], [address], [place]. tel:[phone] Critical access hospital, [facility], [place], [place], [address], [place] tel:[phone] Fithian No Information 2 Raffaele Alfonso. [address] [place], [place], [address], [place]. tel:[phone] Critical access hospital, 1 [facility], [place], [place], [id number], [place] tel:[phone] Fithian Intake (chief complaint) Encounter for general adult medical examination without abnormal findings 2 Raffaele Alfonso. [address] [place], [place], [address], [place]. tel:[phone] Family History Family Member Type Diagnosis Age At Onset No Information Immunizations Vaccine Date Status Comments Fluzone Quad administered [facility] e: New Immunization Record Payers Payer name Insurance type Covered democrat ID Socrates lee(s) [place] [id number] [place] [id number] Social History Type Description Quantity Date Captured Comments Sex Female Smoking Status No Information Chief Complaint And Reason For Visit No Information Plan Of Treatment Date Type Action Status Referral Ordered: Physical Therapy -Therapies/Rehabilitation (related to Right-sided low back pain with right-sided sciatica, unspecified chronicity) ordered Referral Referred To: Physical Therapy Ordered: Referrals: Therapies/Rehabilitation. Physical Therapy. Consult ordered Referral Ordered: Referrals: [facility] [place] [facility] [place] Appointment date/timeframe: 12/29/2022 ordered Referral Ordered: Referrals: Gynecology Appointment date/timeframe: 07/31/2022 ordered Referral Referred To: Bonilla ARCINIEGA [address] [place], [place], [id number] Ordered: Referrals: Internal Medicine. Bonilla ARCINIEGA Appointment date/timeframe: 05/13/2023 ordered Referral Referred To: Bonilla ARCINIEGA [address] [place], [place], [id number] [phone] Ordered: Referrals: Cardiology. Bonilla ARCINIEGA Appointment date/timeframe: 10/21/2022 ordered Aug-15-2022 Referral Referred To: Bonilla ARCINIEGA [address] [place], [place], [id number] [phone] Ordered: Referrals: Rheumatology. Bonilla ARCINIEGA Appointment date/timeframe: 04/16/2023 ordered Referral Referred To: Bonilla ARCINIEGA [address] [facility] [place] [place], [id number] [phone] Ordered: Referrals: Dentistry. Bonilla ARCINIEGA Appointment date/timeframe: 12/17/2022 ordered Referral Referred To: Bonilla ARCINIEGA [address] [facility] [place], [place], [id number] [phone] Ordered: Referrals: Podiatry. Bonilla ARCINIEGA ordered Referral Referred To: Bonilla ARCINIEGA [address] [facility] [place], [place], [id number] [phone] Ordered: Referrals: Gastroenterology. Bonilla ARCINIEGA Appointment date/timeframe: 04/09/2023 ordered Referral Referred To: Bonilla ARCINIEGA [address] [facility] [place], [place], [phone] Ordered: Referrals: Professor Of Theatre. Bonilla ARCINIEGA ordered Referral Ordered: Referrals: Gynecology. Consult Appointment date/timeframe: 04/30/2022 ordered Future Order: Radiology Order Hi p X-ray; Unilateral, with Pelvis X-ray (2-3 views) ([id number]), Ordered on: Ordered Future Order: Radiology Order TT E Combined, 2D image, spectral Doppler, color flow image ([id number]), Ordered on: Ordered Future Order: Lab Order QUANTIFE KARLEY(R)-TB GOLD PLUS, 1 TUBE ([id number]), Ordered on: Ordered History Of Present Illness Encounter Date Complaint History Of Prese nt Illness Comments: Ppt se en for an acute [...] satisfied with the visit.Duration of visit: 45min Lower extremity edema Comments: Partic ipant is being examined during the COVID- Pandemic. Appropriate precautions were used given CDC recommendations and available resources. Ppt seen for an acute follow up. Noted to have had a good weekend per calls kindly placed by director of environmental services nursing. Ppt noted to be doing well, [...] resources.Ppt seen on request of social media manager who was concerned ppt may be having a shiraz episode. Ppt was roomed and provider was notified at 1:45pm. Upon entering, ppt was speaking with social media manager. Translation was kindly provided by leach tank tender on site. This provider checked with ppt, who notes she has been having difficulty sleeping, but notes this is a chronic issue. She denies any chest pain, palpitations. She does not recall med changes that occurred per at previous psychiatry visit, these were discussed. At this time, [facility] staff walked in noting ppts ride had arrived for 2pm and there is no ability to delay. This provider was unable to perform further HPI, ROS and had to perform a limited exam.Based on this providers limited exam and the information provided by staff who know her, she appears to be at baseline. Ppt denies SI/HIVM left with ppts prescriber at [facility]. Recommended that ppt come back to see [...] ongoing conservative care. BIPOLAR / ÓSCAR / [facility]HR[facility]IAIn[facility] is still being utilizedSees counseling every thursdayClonazepam, Haldol, Depakote, trazodone [id number] 7.0% -> 7.9 this fall currently using [...] being seen in clinic todayCarries dx of [id number] treated with Humalog SSI and Lantus She [...] age in NAD nontoxic appearingLUNGS ctabHEART rrr (+)[id number] soft NTEXT no edema soft and NT PHV BESSIE INDERJIT RIVER A AHSAN PHVHPIPPt seen in clinic today for PHVShe was seen in the emergency dept No records available prior to visitIt appears she was seen at [place] [facility] for pain yesterday Pain is in [...] Bipolar, ÓSCAR, SchizophreniaHistorically rx [place] Currently klonopin, Depakote, Haldol, trazodoneShbettye is a patient at [facility] recently moved into her own apartment She reports she likes it She was reported as having increased anxiety yesterdayLiliy translates Ppt reports she feels better today vs yesterday Yesterday she had palpitations None since thenThese happen from izwr-ow-cvzvVITALS HR - 8202 - 96RR - 18BP - 142/80ROSno N V F C CP SOBno ABD PAIN diarrheano cough or difficulty swallowingno rashno palpitations todayPEFemale appearing her ageSpeaks Scottish translated by [place] RNNADMood stableAffect mildly distrustingSpeaks fluidly Answers are appropriateHEART RRR (+)[id number] CTABExt with trace pedal edema bilaterallyNontoxic appearing LABSDPA - 50.7 TSH - 1.94 PEE HPI_62 ___ year old ___female__[place] with sisterMedications reviewedDiagnoses reviewed Hospitalizations - no significant BIPOLAR/SCHIZOPHRENIA/ÓSCAR counseling/therapy once a weekrx by psychiatrist in [place] hasn't met with a prescriber heremodd affect stable no symptoms nowHLDReports she was on a medication but her doctor took it awayThey "never gave it back Would be agreeable to starting againTHYROIDLast labs were normal so her PCP took it awayCurrently her labs are normalShe does not want to restart unless she has [id number] 48u SC JEANINE Lea reports no hospitalizations 2nd to [id number] opto referral and podiatry referralDenies any wounds [...] apparently last year. She was residing in [place]. She had a number of hospitalizations and there was a tentative plan to place her in long-term care however, her niece and sister intervened and brought her to [place].The patient initially lived with her niece however that did not quite taylor out and she is now living in a studio apartment in [place] with her Sister Nicky. There are pending applications for either a 2 bedroom apartment for the 2 of them to live together or a 1 bedroom for the prospect to live and with the sister living in the same complex. At this point, sister assists her with all necessities. There is a tentative plan for 25.5 hours from [facility] however this has not started or been finalized, per the niece.Community physicians currently: Primary CARE: [phone]:Dr. Torito OrellanaFithian podiatry [phone]:[facility] Nydia Muhammad[address] [place], [place] [phone] as psychiatrist however, is PhD psychologist, I am not sure who is prescribing psychiatric medicationsTimi Ibrahim, PhDSteward Health Care [phone]: Mary Jalloh/[phone]:Dr. [facility] nnsuwkcydahao41 [facility] [place]. [phone]:Jaz [address] Streethilda [phone] listedMedications listedPharmacy listedPast medical history and past surgical history listed, apparently had labial cyst or the like in the past and it is recurrent1 of the hospitalizations in [place] has dementia listed as a contributory diagnosis, I am unclear if this is correctRecent hospitalizations:82/-05/23/21: [facility], seemingly psychiatric10/09/21-10/16/21:[facility]-danger to self, schizophrenia, dementia10/18/21-11/13/21: [facility], lactic acidosis, flank pain, shortness of breath, seemingly followed by a psychiatric admission12/02/21-12/17/21 [facility]:Delusions/hallucinations/disorientationPa tient uses a 4 wheeled walker. She [...] appears to be at baseline. Noted that [facility] reduced her clonazepam to day, discontinued haloperidol and started amitriptyline. Discussion with SW after meeting, noting that the primary housekeeper child care (cyndi) would like to stop the amitriptyline, given concern for changes in altered mental status.This provider recommended to halve for 7 days and then discontinue. This was relayed by social media manager.Safety questions were completed with ppt, denying any SI/HI, notes her depression/anxiety is stable. Feels safe to go home and to follow up on Thursday Related to Bipolar 1 disorder debrox in SE program [id number] as needed canal still patent - ppt concerned and wanted tx Related to Excessive cerumen in left ear canal not tremulousness on exammonitor for EPS/tremors given use of psychoactive medsno changes at this timere-eval as needed Related to Tremor no edema todaycont e levationre-eval as needed Related to Edema, unspecified type trulicity 0.75mg Qweek Related t o Long-term current use of injectable noninsulin antidiabetic medication levothyoroxine stopp ed in sep 11 bean reported it was dcd by specialisttrend TSH T4 today and re-eval as needed Related to Hypothyroidism, unspecified type no symptomsabd exam benigntaking PPI for GI ppx with good effectre-eval as needed Related to Gastroesophageal reflux disease without esophagitis truliticty addedcont inues with humalog and basal insulinself dcd CGM - using POCs at [id number] fasting this [facility] referrals to opto and poda1c and labs t odaytitrate up trulicity if neededeval ongoing Related to Type 2 diabetes mellitus without complication, with long-term current use of insulin lantus and humalog see T2DM Rela quentin to [facility] current use of insulin cont STATINlipid taylor el today eval ongoing Related to Hypercholesteremia continue norvasc, ze stril, HCTZtrend routine labs and vitalsadjust mgmt as neededvitals checked during SE program and remain stable Related to Hypertension, unspecified type mood affect stablefo llowed by [facility] Counselingcont haldol, depakote and prn klonopineval ongoing Related to Schizophrenia, unspecified type cont [facility] mentation and mood at baseline cont current medication regimen (see Bipolar)eval ongoing Related to ÓSCAR (generalized anxiety disorder) mood affect stablefo llowed by [facility] CounselingEKG this week forp Qtc cont haldol, [...] and humalog see T2DM 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 a1C 7.0% -> 7.9curre ntly using lantus 48u SC QD and humalog SSiwill add trulicity to be admin @ day programtitrate up as neededcont to trend sugars via [facility] far as periph neuropathy:ppt followed [...] NADpt will have appt made today at [facility] by dexter is agreeable to this [...] questions or concerns regarding psych dxfollowed by [facility] Counselingmsg left for info on upcoming appt and name of prescriberEKG pending tomorrow for Haldol use and baseline QTcdepakote lvl wnl @ 50.4cont haldol, depakote and prn klonopineval ongoing Related to ÓSCAR (generalized anxiety disorder) mood affect stablept has no questions or concerns regarding psych dxfollowed by [facility] Counselingmsg left for info on upcoming appt and name of prescriberEKG pending tomorrow for Haldol use and baseline QTcdepakote lvl wnl @ 50.4cont haldol, depakote and prn klonopineval ongoing Related to Schizophrenia, unspecified type mood affect stablept has no questions or concerns regarding psych dxfollowed by [facility] Counselingmsg left for info on upcoming appt and name of prescriberEKG pending tomorrow for Haldol use and baseline QTcdepakote lvl wnl @ 50.4cont haldol, depakote and prn klonopineval ongoing Related to Bipolar 1 disorder chronic dxfollowed b y GYNtakes antiviral for flare upsno pain or lesions at this timeno questions or concernsre-eval as neededfollowup [facility] [employer] consult summary as indicated Related to Genital herpes simplex, unspecified site no symptomsabd exam benigntaking PPI for GI ppx with good effectre-eval as needed Related to Gastroesophageal reflux disease, unspecified whether esophagitis present 04/25/22a1C 7.0%BUN/Cr -- 0.88/74currently using lantus 48u SC QDwill trend CMP and a4iGttxg as needed for hypoglycemiafoot exam with decrease in monofilament examotherwise foot exam wnlwill consult podiatry, optometry eval ongoing Related to DM type 2 with diabetic peripheral neuropathy 04/25/22a1C 7.0%BUN/Cr -- 0.88/74currently using lantus 48u SC QDwill trend CMP and g9uAxjog as needed for hypoglycemiafoot exam with decrease in monofilament examotherwise foot exam wnlwill consult podiatry, optometry eval ongoing Related to [facility] (current) use of insulin 04/25/22AST/ALT 8/10 ( [...] Goal Continued 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 Bessie will continue to live in the community environment with support from [facility] and family for 6 months. Patient Goal Entered in error Bessie is at risk for custodial placement related to schizophrenia and bipolar I [...] communication related to language barrier- patient is Scottish speaking Bessie will continue to function in her current environment, have her medical needs met, and maintain current level of social interactions through next review. Patient Goal Continued
[2025-03-21] VITALS (7 sets, daily range): BP systolic 120–157; BP diastolic 57–85; PULSE 79–96; RESP 12–21; TEMP 36.4–37.2; O2SAT 95–100; BMI 30.5
--- NOTE | 2025-03-21 | ECG_ITS ---
Test Reason : CP Blood Pressure : */* mmHG Vent. Rate : 88 BPM Atrial Rate : 88 BPM P-R Int : 142 ms QRS Dur : 88 ms QT Int : 376 ms P-R-T Axes : 42 -11 32 degrees QTcB Int : 454 ms Normal sinus rhythm Normal ECG When compared with ECG of 13-Feb-2025 09:56, No significant change was found Referred By: Generic ED Physician Electronically Signed By: DAR ARENAS MD
--- NOTE | ~2025-03-21 | CT_ITS ---
CLINICAL HISTORY: r o PE, tachy, pleuritic chest pain --- Additional Notes or Special Instructions: has shellfish allergy but had A P CT with contrast earlier CT angiography chest with contrast. 3D Postprocessing. Comparison: Chest x-ray earlier on 03/21/2025 Findings: No evidence to suggest acute pulmonary embolism. Normal caliber central pulmonary arteries. No thoracic aortic dissection or aneurysm. No focal airspace consolidation. No pleural effusion. No pneumothorax. Scattered ground-glass densities most evident in the mid to lower lung garcia, greater on the left. A 5 mm ground-glass nodule in the right upper lobe on series 6, image 54. Right middle lobe calcified granuloma. Mild bibasilar bronchial wall thickening. Normal heart size. No pericardial effusion. No significant coronary artery calcifications. Unremarkable esophagus. No lymphadenopathy. No acute findings within visualized lower neck. Visualized upper abdomen is unremarkable. No acute osseous abnormality. No lytic or sclerotic osseous lesions. Impression: 1. No evidence of acute pulmonary embolism. 2. Scattered bibasilar ground-glass densities with associated upstream bronchial wall thickening that may indicate presence of developing pneumonitis. 3. Indeterminate 5 mm ground-glass nodule in the right upper lobe. Short-term follow-up with CT in 3-6 months is recommended. 4. Additional findings as above. This document has been electronically signed by: Khanh Rudolph MD on 03/22/2025 00:33:59
--- NOTE | ~2025-03-21 | CT_ITS ---
CLINICAL HISTORY: headache CT head without contrast. COMPARISON: None provided. FINDINGS: Mucosal thickening present within the ethmoid, maxillary and sphenoid sinus. Mastoid air cells are clear. No calvarial fracture. Cirrhotic intracranial vasculature. No evidence for mass or mass effect. No intracranial hemorrhage or abnormal extra-axial fluid collection. No CT evidence of acute infarct. The ventricles are proportional with the degree of mild global cerebral volume loss without evidence of hydrocephalus. Basilar cisterns are patent. Posterior fossa appears unremarkable. IMPRESSION: 1. No acute intracranial findings. This document has been electronically signed by: Reji Villafana MD on 03/21/2025 19:49:55
--- NOTE | ~2025-03-21 | XR_ITS ---
EXAMINATION: XR CHEST CLINICAL INFORMATION: dyspnea COMPARISON: TECHNIQUE: 2 views of the chest were obtained. FINDINGS: No significant abnormality is noted involving the heart, lungs, mediastinum, bony thorax or soft tissues. XR/XR chest 2V IMPRESSION: No acute disease. Electronically signed by: Gama Garcia MD 03/21/2025 10:05 AM EDT
--- NOTE | 2025-03-21 09:36 | PC.NURSE ---
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 Patient presents to ED c/o SOB on exertion 100% RA 20RR with right sided pain on her head rated 9/10, Denies injury. Blurry vision noted in right eye, lightheadedness/ dizziness noted with postural changes, denies N/V. Productive cough noted which causes her to have chest pain. Symptoms started last night at midnight and have not become better, patient spoke with Dr. Harris who suggested coming to [facility] to be evaluated. Patient hypertensive 157/72 all other VSS and up to date. Blood collected/sent. Provider in to see patient. Plan of care on going.
[2025-03-21 09:38] LABS: MANUAL DIFF FLAG NO
[2025-03-21 09:40] LABS: Hematocrit 34.7 % (37.0-47.0); Hemoglobin 11.6 g/dl (12.0-16.0); Imm Gran Abs Auto 0.09 X10*3/uL (0.00-0.03); Imm Gran Pct Auto 1.0 % (0.0-0.4); Lymphocytes Absolute Auto 2.1 X10*3/uL (1.2-4.9); Mean Corpuscular HGB Conc 33.4 g/dl (31.0-35.0); Mean Corpuscular Hemoglobin 27.6 pg (27.0-33.0); Mean Corpuscular Volume 82.6 fL (80.0-98.0); NRBC Abs Auto 0.000 X10*3/uL (0.0-0.012); NRBC Pct Auto 0.0 /100WBC (0.0-0.2); Platelet Count 284 X10*3/uL (160-400); Red Blood Count 4.20 X10*6/uL (4.20-5.50); White Blood Count 9.0 X10*3/uL (4.8-10.8)
[2025-03-21 09:55] LABS: Alanine Aminotransferase 30 U/L (0-31); Albumin Level 3.7 g/dL (3.5-5.0); Alkaline Phosphatase 207 U/L (39-117); Anion Gap 16 (12-20); Aspartate Amino Transferase 26 U/L (5-31); Blood Urea Nitrogen 10 mg/dL (9-16); Calcium 9.6 mg/dL (8.4-10.2); Carbon Dioxide 26 mmol/L (22-29); Chloride 100 mmol/L (96-108); Creatinine Clr Calc Pharmacy 74.0; Estimated Glomerular Filt Rate > 60; Potassium 3.8 mmol/L (3.3-5.1); Sodium 138 mmol/L (135-145); Total Protein 7.1 g/dL (6.5-8.0)
[2025-03-21 10:03] LABS: Troponin-I High Sensitivity < 2.7 ng/L (<3.5-17.0)
[2025-03-21 10:27] LABS: Resp Syncy Virus RNA Qual PCR NEGATIVE (Negative); SARS COV2 PCR INHOUSE NEGATIVE (Negative)
--- OUTSIDE RECORDS SUMMARY | 2025-03-21 10:32 | XMS_ITS | Clinical Summary ---
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 ([facility] V24, [facility] V28) 10/04/2021 Lactic acidosis 10/04/2021 Right-sided chest wall pain 10/04/2021 Recurrent falls 10/04/2021 Pyelonephritis 10/04/2021 Obesity 10/04/2021 Sarcoidosis 10/04/2021 Schizoaffective disorder, de pressive type with good prognostic features ([facility] V24, [facility] V28) 10/04/2021 Sinusitis 10/04/2021 Encounter for immunization 10/04/2021 Tremor 10/04/2021 Altered mental state 08/17/2021 Abdominal pain 08/17/2021 DM type 2 (diabetes mellitus , type 2) ([facility] V24, [facility] V28) 05/21/2021 Overview (10/04/2021): x 15 years Necrotizing soft tissue infection 05/18/2021 Sacroiliac pain 11/28/2020 Lumbar facet arthropathy 08/29/2020 DDD (degenerative disc disease), lumbosacral Gastritis 09/28/2018 Acute psychosis ([facility] V24, [facility] V28) 04/23 Anxiety 04/23/2015 Impetigo 04/23/2015 Esotropia of left eye 06/04/2011 Rotary nystagmus 06/04/2011 Strabismic amblyopia 06/04/2011 Hyperthyroidism 02/19/2011 Mixed hyperlipidemia 02/19/2011 Primary open-angle glaucoma(365.11) 08/22/2010 Overview (12/20/2021): Replacing diagnoses that were inactivated after the 12/20/21 IMO import Senile nuclear sclerosis 08/22/2010 Encounters Date Type Department Care Team Description 02/09/2025 10:45 AM EDT Office Visit Orthopedic Surgery - [address] [id number] Zeyad Wallace, DPM Lipodermatosclerosis of both lower extremities due to varicose veins (Primary Dx); Peripheral venous insufficiency; Tinea unguium; Diabetic mononeuropathy simplex ([facility] V24, [facility] V28); Type II diabetes mellitus with peripheral circulatory disorder ([facility] V24, [facility] V28); Metatarsalgia of both feet; Dermatophytosis of nail; Pain in toe of left foot; Pain in toe of right foot from Last 3 Months Immunizations Name Administration [...] Medical History Date Comments Schizophrenia [place] [place], [facility] [place]28) Diabetes mellitus ([facility] [place], [facility] V28) Disease of thyroid gland Depression Insomnia Anxiety DDD (degenerative disc disease), cervical Psychosis ([facility] [place], [facility] V28) High blood cholesterol level Social History [...] 80 10/08/2021 4:30 PM EST Temperature 36.6 C (97.9 F) 10/08/2021 8:00 AM EST Respiratory Rate 16 10/08/2021 4:30 PM EST Oxygen Saturation 99% 10/08/2021 4:30 PM EST Inhaled Oxygen Concentration - - Weight 90.7 kg (200 lb) 02/09/2025 10:27 AM EDT Height 157.5 cm (5' 2.01 ) 02/09/2025 10:27 AM E DT Body Mass Index 36.57 02/09/2025 10:27 AM EDT Plan of Treatment Upcoming Encounters Date Type Department Care Team (Late st Contact Info) Description 05/16/2025 10:30 AM EDT Office Visit Orthopedic Surgery - [place] [address] [facility] [address] [place] [id number] Zeyad Wallace, DPDanny [address] [address] Health Maintenance Due Date Last Done Comments [...] COVID-19 Vaccine ( season) 2024 06/12/2021, 12/24/2020 Influenza Vaccine (#1) 2025 , 06/24/2021, 07/18/2020, Additional history exists Colorectal Cancer Screening: Colonoscopy 10/30/2025 10/30/2015, 06/11/2015 HIB Vaccines Aged Out No longer eligi [...] LAB CHEMISTRY METHOD 10/04/2021 9:58 PM EST [facility] Potassium 3.8 3.6 - 5.1 mmol/L LAB CHEMISTRY METHOD 10/04/2021 9:58 PM EST [facility] Chloride 98 98 - 107 mmol/L LAB CHEMISTRY METHOD 10/04/2021 9:58 PM EST [facility] CO2 25 22 - 32 mmol/L LAB CHEMISTRY METHOD 10/04/2021 9:58 PM EST [facility] Anion Gap 14 6 - 18 LAB CHEMISTRY METHOD 10/04/2021 9:58 PM EST [facility] Glucose 369(H) 70 - 99 mg/dL LAB CHEMISTRY METHOD 10/04/2021 9:58 PM [facility] BUN 21(H) 8 - 20 mg/dL LAB CHEMISTRY METHOD 10/04/2021 9:58 PM [facility] Creatinine 1.08 0.60 - 1.30 mg/dL LAB CHEMISTRY METHOD 10/04/2021 9:58 PM [facility] eGFR 55 mL/min/1. 73m2 LAB CHEMISTRY METHOD 10/04/2021 9:58 PM [facility] BUN/Creatinine Ratio 19.4 12.0 - 20.0 LAB CHEMISTRY METHOD 10/04/2021 9:58 PM [facility] Calcium 9.4 8.9 - 10.3 mg/dL LAB CHEMISTRY METHOD 10/04/2021 9:58 PM [facility] AST (SGOT) 8(L) 15 - 41 unit/L LAB CHEMISTRY METHOD 10/04/2021 9:58 PM [facility] ALT (SGPT) 14 7 - 52 unit/L LAB CHEMISTRY METHOD 10/04/2021 9:58 PM [facility] Alkaline Phosphatase 106(H) 32 - 91 unit/L LAB CHEMISTRY METHOD 10/04/2021 9:58 PM [facility] Total Protein 6.9 6.1 - 7.9 g/dL LAB CHEMISTRY METHOD 10/04/2021 9:58 PM [facility] Albumin 4.2 3.5 - 4.8 g/dL LAB CHEMISTRY METHOD 10/04/2021 9:58 PM [facility] Total Bilirubin 0.4 0.3 - 1.2 mg/dL LAB CHEMISTRY METHOD 10/04/2021 9:58 PM [facility] Blood Venous blood specimen / Unknown Venipuncture / Unknown 10/04/2021 8:28 PM EST 10/04/2021 8:33 PM EST Neeta Bae MD LAB BLOOD ORDERABLES Final Resu lt [facility] [address] [place] [address] * [place] MAMMO DIGITAL SCREENING BILAT (NB) [...] mammography views were obtained. Computer-aided detection utilizing [employer] reader has been performed. BREAST COMPOSITION: There [...] your patient. Workstation ID: [id number] FINAL REPORT Dictated By: Dulce Lane MD 08/22/2020 07:11 Assigned Physician: Dulce Lane MD Reviewed and Electronically Signed By: Dulce Lane MD 08/22/2020 07:12 Transcribed by: DISHA 08/22/2020 07:11 Technologist: MAR Procedure Note Dulce Lane MD - 04/12/2021 EXAMINATION TYPE: [place] Mammo Digital Screening bilat (NB) DATE OF EXAM : 08/21/2020 10:11 AM PATIENT HISTORY: Menarche at age 12. First Full-Term at age 18.Postmenopausal. PRIOR STUDIES: 03/15/2013, 10/25/2014, 11/05/2015, 12/22/2016,03/22/2018 REASON FOR STUDY: Breast Screening. TECHNIQUE: Digital mammography views were obtained. Computer-aideddetection utilizing [employer] reader has been performed. BREAST COMPOSITION: There [...] Most Recently Relevant to Health Maintenance Insurance [facility] [employer] Member Subscriber Plan / Payer (Ef fective 2024-Present) Name:Bessie Bhatia Relation to Subscriber:Self Name:Bessie Bhatia Payer ID:[id number] Group ID:Not on file Type:Not on file Address: [place] [address] [place] [address] [place] [facility] [employer] Member Subscriber Plan / Payer (Ef fective 2024-Present) Name:Bessie Bhatia Relation to Subscriber:Self Name:Bessie Bhatia Payer ID:[id number] Group ID:Not on file Type:Not on file Address: [facility] [address] [place] [address] Advance Directives * Full Code - Default [...] currently active code status orders. Care Teams Director Relationship Specialty Start Date End Date Evelia Donald MD [address] [place] [address] , [address] [facility] D[facility]A: [facility] OTIS De Oliveira PCP - General Internal Medicine 08/30/24
--- OUTSIDE RECORDS SUMMARY | 2025-03-21 10:32 | XMS_ITS | Data Portability ---
Author Organization [facility], autoContract Address [address] [place] [address] Assessment No assessment recorded. Plan of Treatment Reminders Order Date Submit Date Provider Last Modified By Organization Details Last Modified Time Details Appointments None recorded. Lab None recorded. Referral None recorded. Procedures None recorded. Surgeries None recorded. Imaging None recorded. Medication Orders ammonium lactate 12 % lotion 2020 021 [id number], [address] [facility], [place], [address], 15:37:21 Patient TargetsNo targets recorded. Patient Instructions Encounter Date Encounter Id Patient Instructions Last Modified By Organization Details Last Modified Time 10/18/2020 [id number] 1.) Office visit with DM foot exam [...] regular follow up evaluation by PCP and/or medical assistant float. 6.) Return 3 months for DM check up and comprehensive foot care, sooner if problems. Not available 10/18/2020 12:32:14 01/28/2021 [id number] 1.) Office visit with DM foot exam [...] regular follow up evaluation by PCP and/or medical assistant float. 6.) Return 3 months for DM check up and comprehensive foot care, sooner if problems. Not available 01/28/2021 15:01:30 02/18/2021 [id number] Warranty/Receipt New shoe break-in period Wear your [...] basis. [email or web address] Not available 10/18/2021 09:50:05 05/06/2021 [id number] 1.) Office visit with DM foot exam [...] regular follow up evaluation by PCP and/or medical assistant float. 6.) Return 3 months for DM check up and comprehensive foot care, sooner if problems. Not available 05/07/2021 08:22:47 08/09/2021 [id number] dedo en martillo : instrucciones de cuidado [...] regular follow up evaluation by PCP and/or medical assistant float. 6.) Return 3 months for DM check up and comprehensive foot care, sooner if problems. I am prescribin. 1 Left and 1 Right - [employer]ley S325-1 Black, Hook [employer] Loop depth-inlay [...] Address Organization Details Recorded Time Diabetes mellitus 36671143 Active Min Rogers DPM [address] [place], [address], [facility] [email or web address] [facility] 5 12:50:43 Disorder o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 mellitus 430439403 Active 2017 Min Rogers DPM [address] [place], [address], [email or web address] [facility] 8 13:27:17 Overweight 632954515 Active 2019 Min Rogers DPM [address] [place], [address], [email or web address] [facility] 0 17:15:07 Uncontrolle d type 2 diabetes mellitus 858774137 Completed 01/21/2018 Min Rogers DPM [address] [place], [place], [address] [place] [address] 7, [facility] 8 13:27:22 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 480983649 Active Min Rogers DPM [address] [place], [place], [address] [place] [address] 7, [email or web address] [facility] 5 12:39:04 Ingrowing nail 598762664 Active Min Rogers DPM [address] [place], [address], [facility] 5 12:39:04 Edema 739651533 Active Min Rogers DPM [address] [place], [address], [email or web address] [facility] 5 13:32:56 Peripheral venous insufficien cy 87472311 Active Min Rogers DPM [address] [place], [address], [facility] 5 13:32:56 Pain in limb 09677076 Active Min Rogers DPM [address] [place], [address], [facility] [employer] [facility] 5 12:39:04 Hammer toe 483609417 Active Min Rogers DPM [address] [place], [address], [facility] 5 12:50:43 Acquired cavus deformity of foot 49820617 Active Min Rogers DPM [address] [place], [address], [facility] [employer] [facility] 5 12:50:43 Problem Notes None recorded. Procedures Surgical History Date Name Laterality Status Provider Name and Address Organization Details Recorded Time 1 Nail Debridement completed Min Rogers DPM [address] [place], [address], [facility] [employer] [facility] 08/09/2021 15:47:04 1 Nail Debridement completed Min Rogers DPM [address] [place], [address], [facility] 05/07/2021 08:22:47 1 Nail Debridement completed Min Rogers DPM [address] [place], [address], [facility] 01/28/2021 15:00:03 1 Nail Debridement completed Min Rogers DPM [address] [place], [address], [facility] 10/18/2020 12:32:14 0 Nail Debridement completed Min Rogers DPM [address] [place], [address], [facility] 07/16/2020 12:25:52 0 Nail Debridement completed Min Rogers DPM [address] [place], [address], [facility] [email or web address] [facility] 04/12/2020 11:12:51 0 Nail Debridement completed Min Rogers DPM [address] [place], [address], [facility] 01/26/2020 15:11:05 0 Nail Debridement completed Min Rogers DPM [address] [place], [address], [facility] 10/31/2019 09:07:59 9 Nail Debridement completed Min Rogers DPM [address] [place], [address], [facility] 08/26/2019 16:10:32 9 Cortisone Injection completed Min Rogers DPM [address] [place], [address], [facility] 06/09/2019 08:55:55 9 Nail Debridement completed Min Rogers DPM [address] [place], [address], [facility] 06/09/2019 09:15:28 9 Nail Debridement completed Min Rogers DPM [address] [place], [address], [facility] 03/10/2019 13:36:34 9 Nail Debridement completed Min Rogers DPM [address] [place], [address], [facility] 12/28/2018 09:42:50 9 Nail Debridement completed Min Rogers DPM [address] [place], [address], [facility] 10/19/2018 13:15:54 8 Cortisone Injection completed Min Rogers DPM [address] [place], [address], [facility] 07/29/2018 11:08:29 8 Nail Debridement completed Min Rogers DPM [address] [facility], [place], [address], [facility] 07/29/2018 13:09:03 8 Nail Debridement completed Min Rogers DPM [address] [facility], [place], [address], [facility] 05/13/2018 10:01:58 8 Nail Debridement completed Min Rogers DPM [address] [facility], [place], [address], [facility] 03/04/2018 09:31:43 8 Nail Debridement completed Min Rogers DPM [address] [place], [address], [facility] 11/26/2017 14:37:36 5 Nail Debridement completed Min Rogers DPM [address] [place], [address], [facility] 02/01/2015 12:39:04 5 Nail Debridement completed Min Rogers DPM [address] [facility] [place], [address], [facility] 10/31/2014 13:32:39 4 Nail Debridement completed Min Rogers DPM [address] [place], [address], [facility] 08/03/2014 10:36:36 4 Nail Debridement completed Min Rogers DPM [address] [facility] [place], [address], [facility] 05/11/2014 10:36:07 4 Nail Debridement completed Min Rogers DPM [address] [place], [address], [facility] 02/20/2014 09:20:10 4 Nail Debridement completed Gregor Mckeon [place] - [facility] 12/07/2013 17:55:59 3 Nail Debridement completed Gregor Mckeon [facility] 08/15/2013 18:15:52 3 Nail Debridement completed Min Rogers DPM [address] [place], [address], [facility] 05/08/2013 13:57:00 3 Nail Debridement completed Min Rogers DPM [address] [place], [address], [facility] 02/03/2013 13:55:58 3 Nail Debridement completed Min Rogers DPM [address] [place], [address], [facility] 11/15/2012 12:39:57 Imaging Results None recorded. Procedure Notes None recorded. Medical Equipment None Reported. Allergies Allergen ID Allergen Name Allergen Category Reaction Reaction Severity Criticality Documentation Date Start Date Code Code System Note Provider Name and Address Organization Details Recorded Time 921 Product containin g penicilli n (product) medicatio n Not available Not available Not available 10/14/2012 87768 8001 SNOMED [facility] 3 15:13:05 Medications Name Sig [...] Available Not Available No t Available [employer] Lite kit active Not Available Not Available [...] 157.48 cm Min Rogers, SEDRICKM [address] [place], [address], [place] [employer] 10/18/2020 11:14:48 Date Recorded Body height Provider Name an d Address Organization Details Last Updated DateTime 01/28/2021 157.48 cm Min Rogers, SEDRICKM [address] [place], [address], [place] [employer] 01/28/2021 14:38:33 Date Recorded Body height Provider Name an d Address Organization Details Last Updated DateTime 02/18/2021 157.48 cm Min Rogers, SEDRICKM [address] [place], [address], [place] [employer] 10/18/2021 09:42:13 Date Recorded Body height Provider Name an d Address Organization Details Last Updated DateTime 05/06/2021 157.48 cm Min Rogers, SEDRICKM [address] [place], [address], [place] [facility] 05/06/2021 16:15:17 Date Recorded Body height Provider Name an d Address Organization Details Last Updated DateTime 08/09/2021 157.48 cm Min Rogers, SEDRICKM [address] [place], [address], [place] [email or web address] 08/09/2021 15:31:11 Social History Question Answer Notes LastModified by Organizat ion Details LastModified Time Tobacco Smoking Status Never Smoker Not Available [employer] 07/06/2020 03:15:47 Are You Blind Or Do You Have Difficulty Seeing? No [id number] Information not available 07/06/2020 Are You Deaf Or Do You Have Serious Difficulty Hearing? No [id number] Information not available 07/06/2020 Which Illicit Or Recreational Drugs Have You Used? Never [id number] Information not available 07/06/2020 Marital Status [email or web address] not available 10/17/2012 What Was The Date Of Your Most Recent Tobacco Screening? 12/28/2018 [id number] Information not available 07/06/2020 Do You Have Difficulty Walking Or Climbing Stairs? No [id number] Information not available 07/06/2020 Sex: Unknown Functional Status Question Answer Note LastModified by Organizat ion Details LastModified Time What is your level of alcohol consumption? None [id number] Information not available 07/06/2020 Do you have difficulty doing errands alone? No [id number] Information not available 07/06/2020 What is your occupation? Disabled - Mental Illness [id number] Information not available 07/06/2020 Do you have difficulty dressing or bathing? No [id number] Information not available 07/06/2020 Mental Status Question Answer Note LastModified by Organization D etails LastModified Time Do you have difficulty concentrating, remembering or making decisions? No [id number] Information no t available 07/06/2020 Family History [...] Code Diagnosis Note 1661 Min Rogers DPM [facility] [place] [address] [place] [address] 10/14/2012 15:09:24 10/18/2012 09:39:25 3202 Min Rogers DPM [facility] [address] [place] [address] 11/11/2012 13:38:31 11/15/2012 16:52:19 7753 Min Rogers [facility] [address] [place] [address] 02/03/2013 13:22:42 02/03/2013 14:21:55 9796 Min Rogers [facility] [address] [place] [address] 05/06/2013 13:22:19 05/06/2013 13:57:43 10434 Min Rogers Danny [facility] [address] [place] [address] 08/15/2013 10:36:55 08/15/2013 11:25:59 Uncontrolled type 2 diabetes mellitus 283338318 Ingrowing nail 233586540 Pain in limb 53342727 Onychomyco sis due to dermatophyte 694649964 Peripheral venous insufficiency 84833723 Edema 352420991 Acquired c avus deformity of foot 49277215 Hammer toe 109687998 83046 Min Rogers DPM [facility] [address] [place] [address] 10/05/2013 11:52:21 10/05/2013 12:01:29 Uncontrolled type 2 diabetes mellitus 207380943 Hammer toe 257890450 13270 [facility] [address] [place] [address] 12/07/2013 12:16:56 12/07/2013 12:42:09 Uncontrolled type 2 diabetes mellitus 330587766 Hammer toe 884358390 Onychomyco sis due to dermatophyte 487056709 Pain in limb 67406017 Ingrowing nail 078031093 57398 Min Rogers [facility] [address] [place] [address] 02/16/2014 09:54:34 02/16/2014 10:32:43 Onychomycosis due to dermatophyte 896764942 Ingrowing nail 735313013 Pain in limb 90825490 Diabetes mellitus 20593779 Peripheral venous insufficiency 06198575 Edema 542973762 Acquired c avus deformity of foot 12566663 Hammer toe 110614093 77839 Min Rogers DPM [facility] [address] [address] 05/11/2014 10:23:52 05/11/2014 10:24:21 Onychomycosis due to dermatophyte 197879611 Ingrowing nail 353810987 Pain in limb 40786626 Diabetes mellitus 91396275 Peripheral venous insufficiency 67488831 Edema 329804261 Acquired c avus deformity of foot 62407606 Hammer toe 792928840 73167 Min Rogers DPM [facility] [address] [address] 08/03/2014 09:27:24 08/03/2014 10:21:02 Onychomycosis due to dermatophyte 712209139 Ingrowing nail 431952366 Pain in limb 31432023 Diabetes mellitus 88062745 Peripheral venous insufficiency 62872342 Edema 191989773 Acquired c avus deformity of foot 83072966 Hammer toe 482302723 32344 Min Rogers DPM [facility] [address] [address] 10/27/2014 09:16:37 10/27/2014 10:30:34 Onychomycosis due to dermatophyte 180627172 Ingrowing nail 787334322 Pain in limb 10429586 Diabetes mellitus 35137721 Peripheral venous insufficiency 45835968 Edema 878828411 Acquired c avus deformity of foot 87827843 Hammer toe 682210132 49452 Min Rogers DPM [facility] [address] [address] 11/02/2014 13:10:07 11/02/2014 13:21:56 Hammer toe 673752373 Acquired c avus deformity of foot 92022509 Uncontroll ed type 2 diabetes mellitus 024852473 85238 Min Rogers DPM [facility] [address] [address] 11/13/2014 12:15:16 11/13/2014 12:33:38 Acquired cavus deformity of foot 26785972 Diabetes mellitus 43005836 Hammer toe 066986508 30940 Min Rogers DPM [facility] [address] [address] 01/18/2015 13:54:36 01/18/2015 14:06:52 Onychomycosis due to dermatophyte 227145441 Ingrowing nail 540055572 Pain in limb 51754195 Uncontroll ed type 2 diabetes mellitus 931586250 16247 Min Rogers DPM [facility] [address] [place] [address] 11/26/2017 10:25:50 11/26/2017 11:21:38 Overweight 896060362 E66.3 Ingrowing nail 846188568 L60.0 Pain in toe 286406016 M7 9.676 Disorder o 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 mellitus 478878744 E11.49 Hammer toe 358905444 M20 .41 M20.42 Onychomycosis 383277028 B35.1 13836 Min Rogers DPM [facility] [address] [place] [address] 01/21/2018 13:25:31 01/21/2018 13:28:43 Disorder o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 mellitus 089560148 E11.49 Hammer toe 270253191 M20 .41 M20.42 23952 Min Rogers DPM [facility] [address] [place] [address] 02/17/2018 11:45:01 02/17/2018 12:02:11 Disorder o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 mellitus 368289927 E11.49 Hammer toe 839249067 M20 .41 M20.42 78785 Min Rogers DPM [facility] [address] [place] [address] 03/04/2018 08:59:26 03/04/2018 09:00:37 Onychomycosis due to dermatophyte 833751596 B35.1 Ingrowing nail 813013395 L60.0 Pain in limb 48950928 M7 9.609 Uncontroll ed type 2 diabetes mellitus 397299406 E11.65 32807 Min Rogers DPM [facility] [address] [place] [address] 05/13/2018 09:31:40 05/13/2018 09:56:12 Ingrowing nail 511132856 L60.0 Pain in limb 51046218 M7 9.609 Uncontroll ed type 2 diabetes mellitus 844761302 E11.65 Onychomycosis 522730454 B35.1 Obese 085684517 E66.9 88624 Min Rogers DPM [facility] [address] [place] [address] 07/29/2018 11:05:10 07/29/2018 11:15:42 Arthritis of right subtalar joint 3296833045 4935103 M13.871 Pain of ri ght ankle joint 6551743233 0838923 M25.571 Onychomycosis 675326449 B35.1 Ingrowing nail 933268437 L60.0 Uncontroll ed type 2 diabetes mellitus 561167651 E11.65 Obese 515388151 E66.9 Plantar fasciitis 016448 003 M72.2 Pain in toe 095397259 M7 9.676 36436 Min Rogers DPM [facility] [address] [place] [address] 08/02/2018 09:02:54 08/02/2018 09:39:55 Foot pain 57123390 M79.671 Arthritis of right subtalar joint 8679620698 5567780 M13.871 Plantar fasciitis 547653 003 M72.2 Onychomycosis 742978260 B35.1 Ingrowing nail 523469314 L60.0 Pain in toe 730564185 M7 9.676 Uncontroll ed type 2 diabetes mellitus 014930454 E11.65 Obese 141718624 E66.9 60127 Min Rogers DPM [facility] [address] [place] [address] 08/10/2018 11:41:12 08/10/2018 12:40:42 Plantar fasciitis 826253726 M72.2 Foot pain 50808841 M79.6 71 M79.672 05815 Min Rogers DPM [facility] [address] [place] [address] 10/19/2018 11:14:44 10/19/2018 13:16:01 Onychomycosis 144922657 B35.1 Ingrowing nail 018376013 L60.0 Pain in limb 07854260 M7 9.609 Uncontroll ed type 2 diabetes mellitus 682871413 E11.65 Obese 252748621 E66.9 08153 Min Rogers DPM [facility] [address] [place] [address] 7 12/28/2018 08:27:54 12/28/2018 09:22:02 Onychomycosis 034178690 B35.1 Ingrowing nail 489756440 L60.0 Pain in limb 01691061 M7 9.609 Uncontroll ed type 2 diabetes mellitus 362503824 E11.65 Obese 103827889 E66.9 35599 Min oRgers DPM [facility] [address] [place] [address] 03/10/2019 11:30:47 03/10/2019 12:35:36 Onychomycosis 476419039 B35.1 Ingrowing nail 948987548 L60.0 Pain in limb 94363833 M7 9.609 Uncontroll ed type 2 diabetes mellitus 443144098 E11.65 Obese 820193748 E66.9 87006 Min Rogers DPM [facility] [address] [place] [address] 06/09/2019 08:31:13 06/09/2019 09:28:11 Onychomycosis 702797341 B35.1 Ingrowing nail 998875558 L60.0 Pain in limb 33577990 M7 9.609 Uncontroll ed type 2 diabetes mellitus 841699658 E11.65 Obese 884286232 E66.9 Osteoarthr itis of subtalar joint 161856891 M19.072 Foot pain 45523205 M79.6 72 91155 Min Rogers DPM [facility] [address] [place] [address] 7 08/26/2019 15:57:18 08/26/2019 16:06:24 Overweight 763951546 E66.3 Onychomycosis 527765689 B35.1 Ingrowing nail 123398547 L60.0 Uncontroll ed type 2 diabetes mellitus 748275146 E11.65 Pain in toe 033556556 M7 9.676 97586 Min Rogers DPM [facility] [address] [place] [address] 7 10/31/2019 08:53:06 10/31/2019 09:32:13 Onychomycosis 622031397 B35.1 Ingrowing nail 153614360 L60.0 Pain in toe 309665573 M7 9.676 Overweight 118024610 E66 .3 Disorder o 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 mellitus 538417557 E11.49 Hammer toe 963551393 M20 .41 M20.42 96339 SEDRICK Villavicencio [facility] [address] [place] [address] 12/19/2019 17:27:14 12/19/2019 17:36:09 Disorder o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 mellitus 054105373 E11.49 Hammer toe 991503574 M20 .41 M20.42 66275 Min Rogers DPM [facility] [address] [place] [address] 7 01/26/2020 13:22:34 01/26/2020 15:00:52 Onychomycosis 813078400 B35.1 Ingrowing nail 398672486 L60.0 Pain in toe 307359870 M7 9.676 Disorder o 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 mellitus 265025662 E11.49 Hammer toe 141593284 M20 .41 M20.42 Overweight 955312089 E66 .3 78189 Min Rogers DPM [facility] [address] [place] [address] 7 04/12/2020 11:04:10 04/12/2020 11:16:03 Onychomycosis 426568681 B35.1 Ingrowing nail 812780483 L60.0 Pain in toe 690588659 M7 9.676 Disorder o 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 mellitus 273598592 E11.49 Hammer toe 978229250 M20 .41 M20.42 Overweight 906423790 E66 .3 00734 Min Rogers DPM [facility] [address] [place] [address] 7 07/16/2020 12:08:06 07/16/2020 12:20:12 Onychomycosis 271043260 B35.1 Ingrowing nail 954387680 L60.0 Pain in toe 812940830 M7 9.676 Disorder o 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 mellitus 491775719 E11.49 Hammer toe 401713936 M20 .41 M20.42 Overweight 426051013 E66 .3 75826 SEDRICK Villavicencio [facility] [address] [place] [address] 7 10/18/2020 11:06:15 10/18/2020 11:53:04 Onychomycosis 847056741 B35.1 Ingrowing nail 499894664 L60.0 Pain in toe 183649212 M7 9.676 Disorder o 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 mellitus 083567400 E11.49 Hammer toe 052193916 M20 .41 M20.42 Overweight 406484005 E66 .3 75505 SEDRICK Villavicencio [facility] [address] [place] [address] 01/28/2021 14:36:07 01/28/2021 14:49:01 Onychomycosis 105669961 B35.1 Ingrowing nail 187312197 L60.0 Pain in toe 316080671 M7 9.676 Disorder o 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 mellitus 868364613 E11.49 Obesity 781641671 E66.9 01846 Min Rogers DPM [facility] [address] [place] [address] 7 05/06/2021 16:07:24 05/06/2021 16:26:10 Onychomycosis 523971825 B35.1 Ingrowing nail 720365770 L60.0 Pain in toe 117417796 M7 9.676 Disorder o 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 mellitus 818508748 E11.49 Obesity 214504074 E66.9 14398 Min Rogers DPM [facility] [address] [place] [address] 7 08/09/2021 15:26:42 08/09/2021 15:31:37 Foot callus 890147902 L84 Onychomycosis 007412517 B35.1 Ingrowing nail 062247912 L60.0 Pain in toe 849440028 M7 9.676 Disorder o 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 mellitus 408324140 E11.49 Obesity 888459277 E66.9 Hammer toe 223878413 M20 .41 M20.42 [id number] Min Rogers DPM [facility] [address] [place] [address] 10/18/2021 09:41:46 10/18/2021 09:52:37 Disorder o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 mellitus 556441977 E11.49 Hammer toe 463696279 M20 .41 M20.42 Health Concerns Section Related Observation LastModified by Organization Detai ls LastModified Time None Recorded Concern Status LastModified by Organization Details LastModified Time None Recorded Advance Directives Directive None Recorded Payers Insurance Date Sequence Insurance Name Policy Number Policy Orozco Covered Member ID Orozco Member ID Guarantor Name 10/18/2021 1 [place] Bessie Alfonso [id number] Bessie Alfonso 06/09/2019 1 [facility] (MEDICAID HMO) [id number] Bessie Alfonso [id number] Bsesie Alfonso 06/09/2019 1 [place]) Bessie Alfonso [id number] Bessie Alfonso 10/18/2021 1 [facility] - DOS PRIOR TO 2022 (MEDICAID REPLACEMENT - HMO) [facility] [id number] Bessie Alfonso Notes Date Note Type Note [...] coronavirus COVID-19 disease. Min Rogers DPM [address] [place], [address], [facility] 10/18/2020 12:33:21 01/28/2021 text/html Bessie [...] disease (fully vaccinated). Min Rogers DPM [address] [place], [address], [facility] 01/28/2021 15:02:07 05/06/2021 text/html Bessie [...] disease (fully vaccinated). Min Rogers DPM [address] [place], [address], [facility] 05/07/2021 08:23:15 08/09/2021 text/html Bessie presents f [...] coronavirus COVID-19 disease (vaccinated). Min Rogers DPM [address] [place], [address], [facility] 08/19/2021 12:11:02 OBGyn Episode No OBEpisode recorded.
--- NOTE | 2025-03-21 17:57 | ED.SOB ---
HPI - SOB/Dyspnea General Chief Complaint: Dyspnea Stated Complaint: CP,RESP DIFFICULTY UPON EXERTION PER EMS Time Seen by Provider: 03/21/25 18:00 Source: patient Mode of arrival: ambulatory Limitations: no limitations History of Present Illness ED Provider: HPI Narrative: Patient with history of schizophrenia hypotension anxiety depression hyperlipidemia diabetes Been coughing for last 1 month not able to get better having mucoid phlegm noted right-sided headache started earlier today does not get headaches feels slightly blurred vision of the right side no rash no fever no chills no sinus problems no nausea no vomiting no light sensitivity Related Data Home Medications ?Medication ?Instructions ?Recorded ?Confirmed amitriptyline 10 mg tablet 5 mg PO BEDTIME 01/19/25 03/21/25 polyethylene glycol 3350 17 17 g PO DAILY Constipation 01/19/25 03/21/25 gram/dose oral powder (Miralax) ropinirole 0.25 mg tablet 1 mg PO BEDTIME 01/19/25 03/21/25 sennosides 8.6 mg-docusate sodium 1 tab PO BID 01/19/25 03/21/25 50 mg tablet (Senna with Docusate Sodium) omeprazole 20 mg capsule,delayed 20 mg PO DAILY@0630 03/21/25 03/21/25 release promethazine 25 mg tablet 12.5 mg PO Q6H PRN Nausea 03/21/25 03/21/25 Previous Rx's ?Medication ?Instructions ?Recorded blood-glucose meter (Prodigy #1 ea 02/08/24 Autocode Meter kit) lancets 28 gauge (Prodigy Lancets) #100 ea 02/08/24 walker #1 ea 07/26/24 blood-glucose meter (FreeStyle #1 ea 11/29/24 Lite Meter kit) furosemide 40 mg tablet 40 mg PO DAILY #90 tabs 12/13/24 blood sugar diagnostic (FreeStyle #100 ea 12/20/24 Test strips) tolterodine 2 mg capsule,extended 2 mg PO DAILY 90 days #90 caps 01/04/25 release 24 hr metoprolol succinate 25 mg 25 mg PO DAILY #30 tabs 01/06/25 tablet,extended release 24 hr divalproex 500 mg tablet,extended 1,000 mg (2 x 500 mg) PO BEDTIME 02/04/25 release 24 hr 90 days #180 tabs lisinopril 20 mg tablet 40 mg (2 x 20 mg) PO DAILY 90 days 02/04/25 #180 tabs pen needle, diabetic 32 gauge x #100 ea 02/04/25 (1st Tier Unifine Pentips) insulin glargine 100 unit/mL (3 48 unit (0.48 mL) subcut DAILY 90 02/14/25 mL) subcutaneous pen (Lantus days #43.2 mL Solostar U-100 Insulin) acyclovir 400 mg tablet 400 mg PO TID 30 days #90 tabs 03/08/25 atorvastatin 10 mg tablet 10 mg PO DAILY 90 days #90 tabs 03/08/25 dulaglutide 1.5 mg/0.5 mL 1.5 mg (0.5 mL) subcut FR #2 mL 03/08/25 subcutaneous pen injector (Trulicity) insulin aspart U-100 100 unit/mL 10 unit (0.1 mL) subcut TID 90 03/08/25 (3 mL) subcutaneous pen (Novolog days #27 mL FlexPen U-100 Insulin aspart) Allergies Allergy/AdvReac Type Severity Reaction Status Date / Time Penicillins Allergy Intermediate rash/swelli Verified 03/21/25 09:03 ng shellfish derived Allergy Intermediate Swelling, Verified 03/21/25 09:03 Hives Review of Systems Review of Systems: Yes all other systems are reviewed and are negative [facility] Past Medical History Medical History Nausea Abdominal pain Osteoporosis Hypertension History of blood clot in brain Hypercholesteremia HSV-2 (herpes simplex virus 2) infection Arthritis Rheumatic fever Schizophrenia GERD (gastroesophageal reflux disease) Depression HTN (hypertension) Hyperlipemia Diabetes Surgical History Hx of colonoscopy History of tubal ligation History of cystostomy History of 2 sections Family History Family History Sister Age: 64 Osteoarthritis Mother Cancer of lymphatic and hematopoietic tissue, Onset Age: 83 COVID-19 Father FH: heart attack Brother FH: heart attack Other Diabetes HTN (hypertension) Mental health disorder Social History Social History Household Members: None Household Members Other:: sister Housing: Apartment Do you presently have visiting nurse or other home services: No Alcohol intake: never Patient Tobacco Use Status: Never used Tobacco Smoked in Last 30 Days: No e-Cigarette/Vaping Use: Never Used Second Hand Smoke Exposure: No Use of substances other than those prescribed or required for medical reasons: No Advance Directives: Yes Advance Directives on File: Yes Advance Directives Date on File: 02/08/24 Do you have a plan to hurt others: No Plan service: No Current occupational status: disabled Sexual orientation: Straight/Heterosexual Gender identity: Female Cognitive needs: Yes (walker) Hearing needs: No Vision needs: Yes (glasses) Physical Exam Vital Signs: Vital Signs: Last Vital Signs Temp 97.6 F 03/21/25 22:42 Pulse 88 03/21/25 22:42 Resp 18 03/21/25 22:42 BP 147/85 H 03/21/25 22:42 Pulse Ox 96 03/21/25 22:42 O2 Del Method Room Air 03/21/25 22:42 BMI result Body Mass Index 30.5 Appearance: Alert. Oriented X3. No acute distress. Eyes: PERRLA, No Nystagmus ENT: Pharynx normal. Oral Mucosa moist right temporal artery tenderness Neck: Normal inspection. Neck supple. CVS: Normal heart rate and rhythm. Pulses normal. Respiratory: No respiratory distress. Equal air entry bilateral, no crackles prolonged expiration with occasional wheeze Abdomen: Soft and nontender. Bowel sounds are present, no mass palpable, no CVA tenderness Skin: Skin warm and dry. Normal skin color. Normal skin turgor. Extremities: No lower extremity edema. No calf tenderness Neuro: Oriented X 3. No motor deficit. No sensory deficit.No cerebellar signs , cranial nerves II-XII intact Medications Administered Generic Name Dose Route Start Last Admin Trade Name Freq PRN Reason Stop Dose Admin Amitriptyline HCl 5 mg 03/21/25 22:15 03/21/25 23:07 Amitriptyline Hcl 10 Mg Tablet PO 5 mg BEDTIME CASANDRA Administration Divalproex Sodium 1,000 mg 03/21/25 22:15 03/21/25 23:07 Divalproex Sodium Er 500 Mg Tab.Er.24h PO 1,000 mg BEDTIME CASANDRA Administration Enoxaparin Sodium 40 mg 03/21/25 22:00 03/21/25 23:14 Enoxaparin Sodium 40 Mg/0.4 Ml Syringe SUBCUT 40 mg Q24H CASANDRA Administration Melatonin 6 mg 03/21/25 21:15 03/21/25 23:08 Melatonin 3 Mg Tablet PO 6 mg BEDTIME PRN Administration Insomnia Morphine Sulfate 2 mg 03/21/25 21:15 03/21/25 23:02 Morphine Sulfate 4 Mg/Ml Cartridge IVPUSH 2 mg Q4H PRN Administration Pain, Severe (Pain Scale 7-10) Protocol Ondansetron HCl 4 mg 03/21/25 21:15 03/21/25 23:02 Ondansetron Hcl 4 Mg/2 Ml Vial IVPUSH 4 mg Q8H PRN Administration Nausea and Vomiting Ropinirole HCl 1 mg 03/21/25 22:15 03/21/25 23:09 Ropinirole Hcl 0.25 Mg Tablet PO 1 mg BEDTIME CASANDRA Administration Discontinued Medications Generic Name Dose Route Start Last Admin Trade Name Denysq PRN Reason Stop Dose Admin Albuterol Sulfate 2.5 mg/ 0 mg 03/21/25 17:58 03/21/25 18:16 Albuterol/Ipratropium 3 ml INHALE 03/21/25 17:59 1 dose ONCE ONE Administration Iohexol 65 ml 03/21/25 23:49 03/21/25 23:49 Iohexol 350 Mg/Ml 100 Ml Infus..Btl IV 03/21/25 23:50 65 ml ONCE ONE Administration Methylprednisolone Sodium Succinate 125 mg 03/21/25 17:58 03/21/25 18:10 Methylprednisolone Sod Succ 125 Mg/2 Ml Vial IVPUSH 03/21/25 17:59 125 mg ONCE ONE Administration Medical Decision Making Medical Decision Making [facility] Narrative: Patient with cough for 1 month clinically with bronchitis with wheezing noted to have right sided temporal headache with tender to touch temporal artery also noted to have blurred vision patient apparently had cataract surgery earlier this year but feel that is right eye is more watering and has more blurred vision than before. No rash noticed workup showed elevated ESR 89 and CRP 14.01 elevated inflammatory marker possibility of temporal arteritis is considered. Will admit patient for further evaluation started on steroids for GCA and vascular consult for biopsy patient is a CTA chest done which was negative for PE Differential Diagnosis Differential Diagnoses: The differential diagnosis associated with the presentation includes Bronchitis/GCA/pneumonia/pleurisy/migraine Admission/Observation Consideration of admission/observation: Escalation of care including admission/observation considered Consult Healthcare Provider Management of the patient was discussed with: Hospitalist Lab Data [facility] Lab Attestation statement: I reviewed the patient's lab results. 03/21/25 09:34 03/21/25 09:34 Labs: Lab Results 03/21/25 03/21/25 03/21/25 Range/Units 09:32 09:33 09:34 WBC 9.0 (4.8-10.8) X10*3/uL RBC 4.20 (4.20-5.50) X10*6/uL Hgb 11.6 L (12.0-16.0) g/dl Hct 34.7 L (37.0-47.0) % MCV 82.6 (80.0-98.0) fL MCH 27.6 (27.0-33.0) pg MCHC 33.4 (31.0-35.0) g/dl RDW 13.7 (11.0-16.0) % Plt Count 284 (160-400) X10*3/uL MPV 10.3 (9.4-12.3) fL Immature Gran % (Auto) 1.0 H (0.0-0.4) % Neut % (Auto) 63.5 (45-73) % Lymph % (Auto) 23.1 (20-40) % [place] % (Auto) 9.0 (2-11) % Eos % (Auto) 3.0 (0-4) % Baso % (Auto) 0.4 (0-2) % Lymph # (Auto) 2.1 (1.2-4.9) X10*3/uL [place] # (Auto) 0.8 (0.1-1.2) X10*3/uL Eos # (Auto) 0.3 (0.0-0.4) X10*3/uL Baso # (Auto) 0.0 (0.0-0.2) X10*3/uL Abs Immat Gran (auto) 0.09 H (0.00-0.03) X10*3/uL Absolute Neuts (auto) 5.7 (2.0-8.3) x10*3/uL Absolute Nucleated RBC 0.000 (0.0-0.012) X10*3/uL Nucleated RBC % (auto) 0.0 (0.0-0.2) /100WBC ESR 89 H (0-20) MM/HR Sodium 138 (135-145) mmol/L Potassium 3.8 D (3.3-5.1) mmol/L Chloride 100 (96-108) mmol/L Carbon Dioxide 26 (22-29) mmol/L Anion Gap 16 (12-20) BUN 10 (9-16) mg/dL Creatinine 0.74 (0.5-1.4) mg/dL Estim Creat Clear Calc 74.0 Estimated GFR > 60 Random Glucose 218 H (60-115) mg/dL Calcium 9.6 (8.4-10.2) mg/dL Total Bilirubin 0.4 (0.0-1.0) mg/dL AST 26 (5-31) U/L ALT 30 (0-31) U/L Alkaline Phosphatase 207 H (39-117) U/L Troponin I High Sens < 2.7 (<3.5-17.0) ng/L C-Reactive Protein 14.01 H (< or = 0.50) mg/dL Total Protein 7.1 (6.5-8.0) g/dL Albumin 3.7 (3.5-5.0) g/dL Influenza Type A (PCR) NEGATIVE (Negative) Influenza Type B (PCR) NEGATIVE (Negative) RSV RNA Qual (PCR) NEGATIVE (Negative) SARS-CoV-2 RNA (RT-PCR) NEGATIVE (Negative) Independent Interpretation I performed an independent interpretation of an: EKG Interpretation: Normal sinus rhythm heart rate 88 beats per minute normal interval normal axis no acute ST-T changes no acute ischemia Radiology Impression Discussion of test interpretation with radiology: I have reviewed the radiologist's reading. Radiologist Impression: Impression: 1. No evidence of acute pulmonary embolism. 2. Scattered bibasilar ground-glass densities with associated upstream bronchial wall thickening that may indicate presence of developing pneumonitis. 3. Indeterminate 5 mm ground-glass nodule in the right upper lobe. Short-term follow-up with CT in 3-6 months is recommended. 4. Additional findings as above. This document has been electronically signed by: Khanh Rudolph MD on 03/22/2025 00:33:59 Critical Care Time Critical Care Time Critical Care Time: Yes Total Critical Care Time: 60 Attestation: Time is exclusive of separately billable procedures. Time includes: direct patient care, patient reassessment, coordination of patient care, interpretation of data (laboratory data, pulse oximetry, arterial blood gases and chest xrays), review of patient's medical records, medical consultation and documentation of patient care. Procedures excluded from critical care time: central intravenous line placement and electrocardiography. Discharge Plan Discharge Clinical Impression: Acute bronchitis, GCA (giant cell arteritis) Patient Disposition: Admitted As Inpatient
[2025-03-21] MEDS: Albuterol Sulfate 2.5 MG, Albuterol/Iprat 2.5/0.5MG 3 ML 3 ML INHALE (18:16)
--- NOTE | 2025-03-21 21:33 | PHA.MEDREC ---
Pharmacy Consult ? Medication Reconciliation Pharmacy has completed the medication reconciliation.
--- NOTE | 2025-03-21 21:40 | PM.IMHP ---
History of Present Illness Date of Service: 03/21/25 Attending physician on admission: Sen Mitchell Chief Complaint: SOB, headache Patient is a 65-year-old [place]-speaking female with a past medical history significant for schizophrenia, hypertension, anxiety, depression, hyperlipidemia, insulin-dependent diabetes, GERD, HSV 2, class 1 obesity, who presented to the ED with shortness of breath and right-sided headache. The patient reports that she has shortness of breath with exertion and at rest with associated chest tightness and pleuritic chest pain. She has had a productive cough with yellow sputum for the past 2 weeks. She denies any sick contacts but reports that she lives alone. She also complains of a right-sided headache rating it a 9/10 which is worse with coughing. She has right temporal tenderness and blurry vision in the right eye. She reports recent cataract surgery earlier this year, unsure when her right eye was done but reports her left eye was done 1st in October. She also reports a recent left eye infection. Her headache radiates to her ear. Review of Systems Constitutional: Constitutional: Denies chills, Reports fatigue, Denies fever(s) and Reports headache(s) Eyes: Eyes: Reports blurry vision and Reports change in vision ENT: Reports headache(s), Denies nasal congestion, Denies neck pain and Denies sore throat Cardiovascular: Cardiovascular: Reports chest pain (pleuritic), Denies rapid heart rate, Denies leg edema, Reports dyspnea and Reports dyspnea on exertion Respiratory: Respiratory: Reports cough, Reports pain with cough, Reports dyspnea, Reports dyspnea on exertion and Reports wheezing Gastrointestinal: Gastrointestinal: Denies abdominal pain, Denies nausea and Denies vomiting Genitourinary: Genitourinary: Denies difficulty voiding, Denies dysuria and Denies urinary urgency Musculoskeletal: Musculoskeletal: Denies myalgias and Denies neck pain Integumentary/Breasts: Skin/Breast: Denies rash Neurologic: Denies confusion and Reports headache(s) Psychiatric: Psychiatric: Denies confusion Endocrine: Endocrine: Reports fatigue Hematologic/Lymphatic: Hematologic/Lymphatic: Denies easy bleeding and Denies easy bruising Allergic/Immunologic: Allergic/Immunologic: Reports wheezing [facility] Medical History Nausea Abdominal pain Osteoporosis Hypertension History of blood clot in brain Hypercholesteremia HSV-2 (herpes simplex virus 2) infection Arthritis Rheumatic fever Schizophrenia GERD (gastroesophageal reflux disease) Depression HTN (hypertension) Hyperlipemia Diabetes Functional capacity: independent ambulation Family History Sister Age: 64 Osteoarthritis Mother Cancer of lymphatic and hematopoietic tissue, Onset Age: 83 COVID-19 Father FH: heart attack Brother FH: heart attack Other Diabetes HTN (hypertension) Mental health disorder Surgical History Hx of colonoscopy History of tubal ligation History of cystostomy History of 2 sections Social History Household Members: None Household Members Other:: sister Housing: Apartment Do you presently have visiting nurse or other home services: No Alcohol intake: never Patient Tobacco Use Status: Never used Tobacco Smoked in Last 30 Days: No e-Cigarette/Vaping Use: Never Used Second Hand Smoke Exposure: No Use of substances other than those prescribed or required for medical reasons: No Advance Directives: Yes Advance Directives on File: Yes Advance Directives Date on File: 02/08/24 Do you have a plan to hurt others: No Plan service: No Current occupational status: disabled Sexual orientation: Straight/Heterosexual Gender identity: Female Cognitive needs: Yes (walker) Hearing needs: No Vision needs: Yes (glasses) Narrative: No smoking, alcohol or drug use Meds Allergies Allergy/AdvReac Type Severity Reaction Status Date / Time Penicillins Allergy Intermediate rash/swelli Verified 03/21/25 09:03 ng shellfish derived Allergy Intermediate Swelling, Verified 03/21/25 09:03 Hives Active Medications: Current Medications Acetaminophen (Acetaminophen 325 Mg Tablet) 975 mg PO Q6H PRN PRN Reason: Pain, Mild 1-3,fever,headache Calcium Carbonate (Calcium Carbonate 750 Mg Tab.Chew) 750 mg PO Q4H PRN PRN Reason: Heartburn Dextrose (Dextrose 50 % 25 Gm/50 Ml Syringe) 25 gm IVPUSH Q15M PRN; Protocol PRN Reason: per Hypoglycemia Standing Ord. Enoxaparin Sodium (Enoxaparin Sodium 40 Mg/0.4 Ml Syringe) 40 mg SUBCUT Q24H CASANDRA Glucose (Glucose Gel 15 Gm Gel..Gram.) 15 gm PO Q15M PRN; Protocol PRN Reason: per Hypoglycemia Standing Ord. Insulin Glargine (Insulin Glargine,Hum.Rec.Anlog 100 Unit/Ml 10 Ml Vial) 33 unit SUBCUT BEDTIME [facility] Insulin Human Lispro (Insulin Lispro 100 Unit/Ml 3 Ml Vial) 0 unit SUBCUT QIDACHS [facility]; Protocol Magnesium Hydroxide (Milk Of Magnesia 30 Ml Oral.Susp) 30 ml PO DAILY PRN PRN Reason: Constipation Melatonin (Melatonin 3 Mg Tablet) 6 mg PO BEDTIME PRN PRN Reason: Insomnia Morphine Sulfate (Morphine Sulfate 4 Mg/Ml Cartridge) 2 mg IVPUSH Q4H PRN; Protocol PRN Reason: Pain, Severe (Pain Scale 7-10) Ondansetron HCl (Ondansetron Hcl 4 Mg/2 Ml Vial) 4 mg IVPUSH Q8H PRN PRN Reason: Nausea and Vomiting Oxycodone HCl (Oxycodone Hcl Immed Release 5 Mg Tablet) 5 mg PO Q6H PRN PRN Reason: Pain, Moderate(Pain Scale 4-6) Prednisone (Prednisone 10 Mg Tablet) 50 mg PO DAILY [facility] Sodium Chloride (0.9 % Sodium Chloride Flush 3 Ml Syringe) 3 ml IVFLUSH QSHIFT [facility] Home Medications ?Medication ?Instructions ?Recorded ?Confirmed ?Last Taken ?Type amitriptyline 10 mg tablet 5 mg PO BEDTIME 01/19/25 03/21/25 01/18/25 History polyethylene glycol 3350 17 17 g PO DAILY Constipation 01/19/25 03/21/25 Unknown History gram/dose oral powder (Miralax) ropinirole 0.25 mg tablet 1 mg PO BEDTIME 01/19/25 03/21/25 01/19/25 History sennosides 8.6 mg-docusate sodium 1 tab PO BID 01/19/25 03/21/25 Unknown History 50 mg tablet (Senna with Docusate Sodium) omeprazole 20 mg capsule,delayed 20 mg PO DAILY@0630 03/21/25 03/21/25 Unknown History release promethazine 25 mg tablet 12.5 mg PO Q6H PRN Nausea 03/21/25 03/21/25 Unknown History Physical Exam Vital Signs and Narrative: Vital Signs: Last Vital Signs Temp 98.6 F 03/21/25 19:47 Pulse 96 03/21/25 19:47 Resp 18 03/21/25 19:47 BP 128/60 03/21/25 19:47 Pulse Ox 99 03/21/25 19:47 O2 Del Method Room Air 03/21/25 19:47 BMI result Body Mass Index 30.5 General: AOx3, no acute distress, seen with ironer hand HEENT: pain with palpation right temporal area. eyes watery. Resp: diminished throughout, no crackles or wheezing CVS: tachy, normal rhythm, +murmur GI: +BS, NT, no distention Skin: Warm, dry Neuro: Cranial nerves II-XII grossly intact bilaterally. Motor grossly intact bilaterally. negative meningeal signs. Extremities: No LE edema Psych: Appropriate affect Const: General: No confusion Orientation/consciousness: No confusion Neuro: General: No confusion Results Labs 03/21/25 09:34 03/21/25 09:34 Labs: Laboratory Results - last 24 hr 03/21/25 03/21/25 03/21/25 09:32 09:33 09:34 MCV 82.6 MCH 27.6 MCHC 33.4 RDW 13.7 Plt Count 284 MPV 10.3 Immature Gran % (Auto) 1.0 H Neut % (Auto) 63.5 Lymph % (Auto) 23.1 [place] % (Auto) 9.0 Eos % (Auto) 3.0 Baso % (Auto) 0.4 Lymph # (Auto) 2.1 [place] # (Auto) 0.8 Eos # (Auto) 0.3 Baso # (Auto) 0.0 Abs Immat Gran (auto) 0.09 H Absolute Neuts (auto) 5.7 Absolute Nucleated RBC 0.000 Nucleated RBC % (auto) 0.0 ESR 89 H Anion Gap 16 Estim Creat Clear Calc 74.0 Estimated GFR > 60 Random Glucose 218 H Calcium 9.6 Total Bilirubin 0.4 AST 26 ALT 30 Alkaline Phosphatase 207 H Troponin I High Sens < 2.7 C-Reactive Protein 14.01 H Total Protein 7.1 Albumin 3.7 Influenza Type A (PCR) NEGATIVE Influenza Type B (PCR) NEGATIVE RSV RNA Qual (PCR) NEGATIVE SARS-CoV-2 RNA (RT-PCR) NEGATIVE Imaging Radiologist's Impressions: Impressions Chest X-Ray 03/21/25 09:45 IMPRESSION: No acute disease. Electronically signed by: Gama Garcia MD 03/21/2025 10:05 AM EDT RP Assessment and Plan (1) Headache: Status: Acute (2) Shortness of breath: Status: Acute (3) Pleuritic chest pain: Status: Acute (4) Class 1 obesity: Status: Acute Plan Patient is a 65-year-old [place]-speaking female with a past medical history significant for schizophrenia, hypertension, anxiety, depression, hyperlipidemia, insulin-dependent diabetes, GERD, HSV 2, class 1 obesity, who presented to the ED with shortness of breath and right-sided headache. headache- tender R temporal area with blurry vision, concern for GCA - no meningeal signs, no fever or leukocytosis - head CT negative - ESR 89, CRP 14.01 - JOAN panel - given 125mg solumedrol in ED, continue 50mg prednisone daily - vascular consult for possible GCA bx SOB, pleuritic chest pain - no leukocytosis, no infection identified - CXR negative - COVID/flu/RSV negative - respiratory panel pending - EKG negative - troponin negative - CTA to r/o PE ordered - monitor CBC and BMP HTN -- normotensive - continue lasix and metoprolol, holding lisinopril due to normal BP, resume when appropriate T2DM - lantus 33U daily, reduced dose - sliding scale insulin - diabetic diet HLD - continue statin Mood disorder - continue Depakote GERD - continue omeprazole Class 1 obesity - BMI 30.5 - patient on GLP 1 - weight loss encouraged Full code VTE prophylaxis: Lovenox Patient with right-sided headache with concern for giant cell arteritis, complicated by shortness of breath with pleuritic chest pain, requiring admission for at least 2 midnight stay for further evaluation and monitoring. Quality Stroke Does the patient have a stroke diagnosis?: No VTE Prior VTE?: No VTE Risk Level:: Medical - moderate - high VTE Device Contraindication: Treatment Not Indicated VTE Drug Contraindication: N/A - Med Ordered
--- NOTE | 2025-03-21 21:49 | PC.NURSE ---
1:1 OOB assist to the restroom. patient noted to have a strong/steady gait. no use of assistive devices needed. pt verbalizing pain to the right side of her face/head s/p ambulation. neuros remain intact. pt repositioned to comfort. plan of care ongoing. call mcneil placed within reach.
[2025-03-21 22:19] LABS: Glucose, Whole Blood 287 mg/dL (60-115)
[2025-03-21] MEDS: iohexoL 350 MG/ML 100 ML INFUS..BTL 65 ML IV (23:49)
[2025-03-22] VITALS (8 sets, daily range): BP systolic 122–155; BP diastolic 58–76; PULSE 68–88; RESP 16–20; TEMP 36.1–36.7; O2SAT 95–99; BMI 30.1
[2025-03-22 07:02] LABS: Hematocrit 33.2 % (37.0-47.0); Hemoglobin 11.0 g/dl (12.0-16.0); Mean Corpuscular HGB Conc 33.1 g/dl (31.0-35.0); Mean Corpuscular Hemoglobin 27.6 pg (27.0-33.0); Mean Corpuscular Volume 83.4 fL (80.0-98.0); NRBC Abs Auto 0.000 X10*3/uL (0.0-0.012); NRBC Pct Auto 0.0 /100WBC (0.0-0.2); Platelet Count 281 X10*3/uL (160-400); Red Blood Count 3.98 X10*6/uL (4.20-5.50); White Blood Count 7.5 X10*3/uL (4.8-10.8)
[2025-03-22 07:05] LABS: Glucose, Whole Blood 405 mg/dL (60-115)
[2025-03-22 07:05] LABS: Glucose, Whole Blood 403 mg/dL (60-115)
[2025-03-22 07:20] LABS: Anion Gap 14 (12-20); Blood Urea Nitrogen 14 mg/dL (9-16); Calcium 8.9 mg/dL (8.4-10.2); Carbon Dioxide 24 mmol/L (22-29); Chloride 101 mmol/L (96-108); Creatinine Clr Calc Pharmacy 68.9; Estimated Glomerular Filt Rate > 60; Potassium 4.5 mmol/L (3.3-5.1); Sodium 134 mmol/L (135-145)
[2025-03-22] MEDS: Metoprolol Succinate ER 25 MG TAB.ER.24H PO (07:52)
[2025-03-22] MEDS: Insulin Glargine,Hum.rec.anlog 100 UNIT/ML 10 ML VIAL 33 UNIT SUBCUT (07:53)
[2025-03-22] MEDS: 0.9 % Sodium Chloride Flush 3 ML SYRINGE IVFLUSH ×3 (07:54→20:25)
[2025-03-22 08:25] LABS: Glucose, Whole Blood 355 mg/dL (60-115)
--- NOTE | 2025-03-22 09:33 | P.CONGS_ITS ---
<Statement entered by Ranjit Glass MD - 03/23/25 11:07> I have seen and evaluated the patient and agree with history, findings, assessment and plan documented by Janis Sifuentes PA-c. Will evaluate as outpatient History of Present Illness Consult details Consult date: 03/22/25 Narrative: We were consulted on Bessie Moody, for concerns of giant cell arteritis. She presented to the ER yesterday for 1m hx of cough, DELCID, and dyspnea at rest, worsening. She also had complaints of a right sided headache, over the right temporal area as well, tender to palpation. She has a medical hx pertinent for schizophrenia, HTN, anxiety, depression, HLD, IDDM, GERD, and HSV 2. She also is s/p cataract surgery in her right eye, ? Oct 2024. She is Czech speaking only. She states she is having pain, mostly with palpation and coughing, from the right side of her head on her scalp, over her right eyebrow, around her right eye, radiating down to her ear and down her neck. She states this has been worsening over the last week. She also has complaints of pain in her chest when she is coughing. She denies any diff eating/chewing or pain in her mouth/throat. Review of Systems 2 Constitutional: Constitutional: Reports as per HPI and Denies weakness ENT: Reports Normal hearing present and Denies dizziness Cardiovascular: Cardiovascular: Reports as per HPI, Denies chest pain, Denies chest pain at rest, Denies chest pain with activity, Denies dyspnea and Denies dyspnea on exertion Respiratory: Respiratory: Reports as per HPI, Denies cough, Denies dyspnea and Denies dyspnea on exertion Gastrointestinal: Gastrointestinal: Reports as per HPI, Denies abdominal pain, Denies nausea and Denies vomiting Musculoskeletal: Musculoskeletal: Denies numbness Integumentary/Breasts: Skin/Breast: Reports as per HPI, Denies erythema and Denies wounds Neurologic: Reports Normal hearing present, Denies dizziness, Denies numbness, Denies Sensory deficit (Neuro) and Denies weakness Psychiatric: Psychiatric: Reports no additional psychiatric complaints Endocrine: Endocrine: Reports no additional endocrine complaints PMFSH Past Medical History Medical History Nausea Abdominal pain Osteoporosis Hypertension History of blood clot in brain Hypercholesteremia HSV-2 (herpes simplex virus 2) infection Arthritis Rheumatic fever Schizophrenia GERD (gastroesophageal reflux disease) Depression HTN (hypertension) Hyperlipemia Diabetes Family History Family History Sister Age: 64 Osteoarthritis Mother Cancer of lymphatic and hematopoietic tissue, Onset Age: 83 COVID-19 Father FH: heart attack Brother FH: heart attack Other Diabetes HTN (hypertension) Mental health disorder Surgical History Surgical History Hx of colonoscopy History of tubal ligation History of cystostomy History of 2 sections Social History Social History Household Members: None Household Members Other:: sister Housing: Apartment Do you presently have visiting nurse or other home services: No Alcohol intake: never Patient Tobacco Use Status: Never used Tobacco Smoked in Last 30 Days: No e-Cigarette/Vaping Use: Never Used Second Hand Smoke Exposure: No Use of substances other than those prescribed or required for medical reasons: No Advance Directives: Yes Advance Directives on File: Yes Advance Directives Date on File: 02/08/24 Do you have a plan to hurt others: No Plan Recently lost weight without trying: Unsure Eating poorly because of decreased appetite: No Patient : No service: No Current occupational status: disabled Sexual orientation: Straight/Heterosexual Gender identity: Female Cognitive needs: Yes (walker) Hearing needs: No Vision needs: Yes (glasses) Meds Allergies Allergy/AdvReac Type Severity Reaction Status Date / Time Penicillins Allergy Intermediate rash/swelli Verified 03/21/25 09:03 ng shellfish derived Allergy Intermediate Swelling, Verified 03/21/25 09:03 Hives Active Medications: Current Medications Acetaminophen (Acetaminophen 325 Mg Tablet) 975 mg PO Q6H PRN PRN Reason: Pain, Mild 1-3,fever,headache Acyclovir (Acyclovir 200 Mg Capsule) 400 mg PO TID [facility] Last Admin: 03/22/25 07:52 Dose: 400 mg Amitriptyline HCl (Amitriptyline Hcl 10 Mg Tablet) 5 mg PO BEDTIME [facility] Last Admin: 03/21/25 23:07 Dose: 5 mg Atorvastatin Calcium (Atorvastatin Calcium 10 Mg Tablet) 10 mg PO DAILY [facility] Last Admin: 03/22/25 07:52 Dose: 10 mg Calcium Carbonate (Calcium Carbonate 750 Mg Tab.Chew) 750 mg PO Q4H PRN PRN Reason: Heartburn Dextrose (Dextrose 50 % 25 Gm/50 Ml Syringe) 25 gm IVPUSH Q15M PRN; Protocol PRN Reason: per Hypoglycemia Standing Ord. Divalproex Sodium (Divalproex Sodium Er 500 Mg Tab.Er.24h) 1,000 mg PO BEDTIME [facility] Last Admin: 03/21/25 23:07 Dose: 1,000 mg Enoxaparin Sodium (Enoxaparin Sodium 40 Mg/0.4 Ml Syringe) 40 mg SUBCUT Q24H [facility] Last Admin: 03/21/25 23:14 Dose: 40 mg Furosemide (Furosemide 40 Mg Tablet) 40 mg PO DAILY [facility]; Protocol Last Admin: 03/22/25 07:51 Dose: 40 mg Glucose (Glucose Gel 15 Gm Gel..Gram.) 15 gm PO Q15M PRN; Protocol PRN Reason: per Hypoglycemia Standing Ord. Insulin Glargine (Insulin Glargine,Hum.Rec.Anlog 100 Unit/Ml 10 Ml Vial) 33 unit SUBCUT DAILY [facility] Last Admin: 03/22/25 07:53 Dose: 33 unit Insulin Human Lispro (Insulin Lispro 100 Unit/Ml 3 Ml Vial) 0 unit SUBCUT QIDACHS [facility]; Protocol Last Admin: 03/22/25 07:53 Dose: 10 unit Magnesium Hydroxide (Milk Of Magnesia 30 Ml Oral.Susp) 30 ml PO DAILY PRN PRN Reason: Constipation Melatonin (Melatonin 3 Mg Tablet) 6 mg PO BEDTIME PRN PRN Reason: Insomnia Last Admin: 03/21/25 23:08 Dose: 6 mg Metoprolol Succinate (Metoprolol Succinate Er 25 Mg Tab.Er.24h) 25 mg PO DAILY [facility]; Protocol Last Admin: 03/22/25 07:52 Dose: 25 mg Morphine Sulfate (Morphine Sulfate 4 Mg/Ml Cartridge) 2 mg IVPUSH Q4H PRN; Protocol PRN Reason: Pain, Severe (Pain Scale 7-10) Last Admin: 03/21/25 23:02 Dose: 2 mg Omeprazole (Omeprazole 20 Mg Capsule.Dr) 20 mg PO DAILY@0630 [facility] Last Admin: 03/22/25 05:53 Dose: 20 mg Ondansetron HCl (Ondansetron Hcl 4 Mg/2 Ml Vial) 4 mg IVPUSH Q8H PRN PRN Reason: Nausea and Vomiting Last Admin: 03/21/25 23:02 Dose: 4 mg Oxycodone HCl (Oxycodone Hcl Immed Release 5 Mg Tablet) 5 mg PO Q6H PRN PRN Reason: Pain, Moderate(Pain Scale 4-6) Polyethylene Glycol (Polyethylene Glycol 3350 17 Gm Powd.Pack) 17 gm PO DAILY [facility] Last Admin: 03/22/25 07:56 Dose: 17 gm Prednisone (Prednisone 10 Mg Tablet) 50 mg PO DAILY [facility] Last Admin: 03/22/25 07:51 Dose: 50 mg Ropinirole HCl (Ropinirole Hcl 0.25 Mg Tablet) 1 mg PO BEDTIME [facility] Last Admin: 03/21/25 23:09 Dose: 1 mg Senna/Docusate Sodium (Sennosides/Docusate Sodium Tablet) 1 tab PO BID [facility] Last Admin: 03/22/25 07:51 Dose: 1 tab Sodium Chloride (0.9 % Sodium Chloride Flush 3 Ml Syringe) 3 ml IVFLUSH QSHIFT [facility] Last Admin: 03/22/25 07:54 Dose: 3 ml Tolterodine Tartrate (Tolterodine Tartrate La 2 Mg Cap.Er.24h) 2 mg PO DAILY [facility] Home Medications ?Medication ?Instructions ?Recorded ?Confirmed ?Last Taken ?Type amitriptyline 10 mg tablet 5 mg PO BEDTIME 01/19/2501/18/25 History polyethylene glycol 3350 17 17 g PO DAILY Constipation 01/19/25 03/21/25 Unknown History gram/dose oral powder (Miralax) ropinirole 0.25 mg tablet 1 mg PO BEDTIME 01/19/2510/1501/19/25 History sennosides 8.6 mg-docusate sodium 1 tab PO BID 5 03/21/25 Unknown History 50 mg tablet (Senna with Docusate Sodium) omeprazole 20 mg capsule,delayed 20 mg PO DAILY@0630 0 03/21/25 03/21/25 Unknown History release promethazine 25 mg tablet 12.5 mg PO Q6H PRN Nausea 03/21/25 Unknown History Physical Exam 2 Vital Signs: Vital Signs: Last Vital Signs Temp 97.2 F 03/22/25 07:26 Pulse 77 03/22/25 07:26 Resp 18 03/22/25 07:26 BP 155/71 H 03/22/25 07:26 Pulse Ox 95 03/22/25 07:26 O2 Del Method Nasal Cannula 03/22/25 07:26 O2 Flow Rate 2 03/22/25 07:26 BMI result Body Mass Index 30.1 Const: General: comfortable and no acute distress O rientation/consciousness: patient oriented x3 HEENT: Other: Painful to palpation from the top of her head on the right side radiating down the forehead, around the eye, down the preauricular area and in the ear, down the jaw to the neck, and down towards the right clavicle. + tender painful lymphadenopathy noted in the pre and post auricular areas as well as the supraclavicular area and superficial cervical chain. Ears: hearing grossly normal bilaterally Resp: Effort & Inspection: normal respiratory effort and able to speak in complete sentences Auscultation: clear to auscultation bilaterally Cardio: Rate: regular rate Rhythm: regular rhythm Heart sounds: S1 normal heart sound present and S2 normal heart sound present Bruits: no abdominal aortic bruits, no carotid bruits, no femoral bruits and no renal bruits GI: Palpation (GI): No Abdominal aortic bruit present Neuro: General: patient oriented x3 Cranial nerves: Yes Normal hearing present Sensory Exam: No Sensory deficit (Neuro) Results Labs 03/22/25 06:44 03/22/25 06:44 Labs: Abnormal lab results 03/21/25 03/21/25 03/21/25 Range/Units 09:33 09:34 22:15 RBC (4.20-5.50) X10*6/uL Hgb 11.6 L (12.0-16.0) g/dl Hct 34.7 L (37.0-47.0) % Immature Gran % (Auto) 1.0 H (0.0-0.4) % Abs Immat Gran (auto) 0.09 H (0.00-0.03) X10*3/uL ESR 89 H (0-20) MM/HR Sodium (135-145) mmol/L POC Glucose 287 H (60-115) mg/dL Random Glucose 218 H (60-115) mg/dL Alkaline Phosphatase 207 H (39-117) U/L C-Reactive Protein 14.01 H (< or = 0.50) mg/dL 03/22/25 03/22/25 03/22/25 Range/Units 06:44 06:49 06:53 RBC 3.98 L (4.20-5.50) X10*6/uL Hgb 11.0 L (12.0-16.0) g/dl Hct 33.2 L (37.0-47.0) % Immature Gran % (Auto) (0.0-0.4) % Abs Immat Gran (auto) (0.00-0.03) X10*3/uL ESR (0-20) MM/HR Sodium 134 L (135-145) mmol/L POC Glucose 403 H* 405 H* (60-115) mg/dL Random Glucose 422 H* (60-115) mg/dL Alkaline Phosphatase (39-117) U/L C-Reactive Protein (< or = 0.50) mg/dL 03/22/25 Range/Units 08:21 RBC (4.20-5.50) X10*6/uL Hgb (12.0-16.0) g/dl Hct (37.0-47.0) % Immature Gran % (Auto) (0.0-0.4) % Abs Immat Gran (auto) (0.00-0.03) X10*3/uL ESR (0-20) MM/HR Sodium (135-145) mmol/L POC Glucose 355 H* (60-115) mg/dL Random Glucose (60-115) mg/dL Alkaline Phosphatase (39-117) U/L C-Reactive Protein (< or = 0.50) mg/dL Short CBC 03/21/25 03/22/25 Range/Units 09:34 06:44 WBC 9.0 7.5 (4.8-10.8) X10*3/uL Hgb 11.6 L 11.0 L (12.0-16.0) g/dl Hct 34.7 L 33.2 L (37.0-47.0) % Plt Count 284 281 (160-400) X10*3/uL BMP 03/21/25 03/22/25 09:34 06:44 Sodium 138 134 L Potassium 3.8 D 4.5 Chloride 100 101 Carbon Dioxide 26 24 BUN 10 14 Creatinine 0.74 0.79 Calcium 9.6 8.9 D Liver Function 03/21/25 Range/Units 09:34 Total Bilirubin 0.4 (0.0-1.0) mg/dL AST 26 (5-31) U/L ALT 30 (0-31) U/L Alkaline Phosphatase 207 H (39-117) U/L Albumin 3.7 (3.5-5.0) g/dL All other labs normal. Assessment and Plan (1) GCA (giant cell arteritis): Status: Acute Plan We were consulted on Bessie Garner for concerns of giant cell arteritis. She presented to the ER yesterday with a hx of 1m of cough with increased pain in the right temporal area and headaches. Both the ESR and CRP were elevated. She states the pain increases with cough/palpation. There is no acute vascular surgical intervention at this point. We recommend follow up outpatient with possible biospy outpatient. We will continue to monitor. If there are any questions or concerns, please do not hesitate to reach out to us. Procedures Date of Service Date of Service: 03/22/25
[2025-03-22 10:59] LABS: Glucose, Whole Blood 310 mg/dL (60-115)
[2025-03-22 11:53] LABS: Chlamydia pneumoniae PCR Not Detected (Not Detect.); Coronavirus 229E PCR Not Detected (Not Detect.); Coronavirus HKU1 PCR Not Detected (Not Detect.); Coronavirus NL63 PCR Not Detected (Not Detect.); Coronavirus OC43 PCR Not Detected (Not Detect.); RSV PCR Not Detected (Not Detect.); Rhino/Enterovirus PCR Not Detected (Not Detect.)
[2025-03-22 12:06] LABS: Influenza A H1 PCR Not Detected (Not Detect.); Influenza A H1-2009 PCR Not Detected (Not Detect.); Influenza A H3 PCR Not Detected (Not Detect.); SARS-CoV-2 PCR Not Detected (Not Detect.)
[2025-03-22] MEDS: Tolterodine Tartrate LA 2 MG CAP.ER.24H PO (12:19)
--- NOTE | 2025-03-22 12:53 | HO.PM.IMPN ---
Subjective Subjective Date of Service: 03/22/25 Review of Systems Follow up Headache, PNA Feeling better but still with headache Physical Exam Vital Signs: Vital Signs: Last Vital Signs Temp 97.7 F 03/22/25 11:15 Pulse 76 03/22/25 11:15 Resp 20 03/22/25 11:15 BP 135/66 03/22/25 11:15 Pulse Ox 95 03/22/25 11:15 O2 Del Method Room Air 03/22/25 11:15 O2 Flow Rate 2 03/22/25 07:26 BMI result Body Mass Index 30.1 Appearing in no acute distress lung sounds are clear to auscultation heart regular rate rhythm, clear S1, S2 positive bowel sounds, abdomen is soft, nontender neuro patient is alert x3, no focal deficits Objective Data Active Medications Acetaminophen (Acetaminophen 325 Mg Tablet) 975 mg PO Q6H PRN PRN Reason: Pain, Mild 1-3,fever,headache Acyclovir (Acyclovir 200 Mg Capsule) 400 mg PO TID [facility] Last Admin: 03/22/25 07:52 Dose: 400 mg Documented By: FREDDY Amitriptyline HCl (Amitriptyline Hcl 10 Mg Tablet) 5 mg PO BEDTIME [facility] Last Admin: 03/21/25 23:07 Dose: 5 mg Documented By: CELESTINO Atorvastatin Calcium (Atorvastatin Calcium 10 Mg Tablet) 10 mg PO DAILY [facility] Last Admin: 03/22/25 07:52 Dose: 10 mg Documented By: FREDDY Calcium Carbonate (Calcium Carbonate 750 Mg Tab.Chew) 750 mg PO Q4H PRN PRN Reason: Heartburn Dextrose (Dextrose 50 % 25 Gm/50 Ml Syringe) 25 gm IVPUSH Q15M PRN; Protocol PRN Reason: per Hypoglycemia Standing Ord. Divalproex Sodium (Divalproex Sodium Er 500 Mg Tab.Er.24h) 1,000 mg PO BEDTIME [facility] Last Admin: 03/21/25 23:07 Dose: 1,000 mg Documented By: CELESTINO Enoxaparin Sodium (Enoxaparin Sodium 40 Mg/0.4 Ml Syringe) 40 mg SUBCUT Q24H [facility] Last Admin: 03/21/25 23:14 Dose: 40 mg Documented By: CELESTINO Furosemide (Furosemide 40 Mg Tablet) 40 mg PO DAILY [facility]; Protocol Last Admin: 03/22/25 07:51 Dose: 40 mg Documented By: FREDDY Glucose (Glucose Gel 15 Gm Gel..Gram.) 15 gm PO Q15M PRN; Protocol PRN Reason: per Hypoglycemia Standing Ord. Insulin Glargine (Insulin Glargine,Hum.Rec.Anlog 100 Unit/Ml 10 Ml Vial) 33 unit SUBCUT DAILY [facility] Last Admin: 03/22/25 07:53 Dose: 33 unit Documented By: FREDDY Insulin Human Lispro (Insulin Lispro 100 Unit/Ml 3 Ml Vial) 0 unit SUBCUT QIDAS [facility]; Protocol Last Admin: 03/22/25 12:19 Dose: 8 unit Documented By: FREDDY Magnesium Hydroxide (Milk Of Magnesia 30 Ml Oral.Susp) 30 ml PO DAILY PRN PRN Reason: Constipation Melatonin (Melatonin 3 Mg Tablet) 6 mg PO BEDTIME PRN PRN Reason: Insomnia Last Admin: 03/21/25 23:08 Dose: 6 mg Documented By: CELESTINO Metoprolol Succinate (Metoprolol Succinate Er 25 Mg Tab.Er.24h) 25 mg PO DAILY [facility]; Protocol Last Admin: 03/22/25 07:52 Dose: 25 mg Documented By: FREDDY Morphine Sulfate (Morphine Sulfate 4 Mg/Ml Cartridge) 2 mg IVPUSH Q4H PRN; Protocol PRN Reason: Pain, Severe (Pain Scale 7-10) Last Admin: 03/22/25 12:27 Dose: 2 mg Documented By: FREDDY Omeprazole (Omeprazole 20 Mg Capsule.Dr) 20 mg PO DAILY@0630 [facility] Last Admin: 03/22/25 05:53 Dose: 20 mg Documented By: TESSIE Ondansetron HCl (Ondansetron Hcl 4 Mg/2 Ml Vial) 4 mg IVPUSH Q8H PRN PRN Reason: Nausea and Vomiting Last Admin: 03/21/25 23:02 Dose: 4 mg Documented By: CELESTINO Oxycodone HCl (Oxycodone Hcl Immed Release 5 Mg Tablet) 5 mg PO Q6H PRN PRN Reason: Pain, Moderate(Pain Scale 4-6) Polyethylene Glycol (Polyethylene Glycol 3350 17 Gm Powd.Pack) 17 gm PO DAILY [facility] Last Admin: 03/22/25 07:56 Dose: 17 gm Documented By: FREDDY Prednisone (Prednisone 10 Mg Tablet) 50 mg PO DAILY [facility] Last Admin: 03/22/25 07:51 Dose: 50 mg Documented By: FREDDY Ropinirole HCl (Ropinirole Hcl 0.25 Mg Tablet) 1 mg PO BEDTIME [facility] Last Admin: 03/21/25 23:09 Dose: 1 mg Documented By: CELESTINO Senna/Docusate Sodium (Sennosides/Docusate Sodium Tablet) 1 tab PO BID [facility] Last Admin: 03/22/25 07:51 Dose: 1 tab Documented By: FREDDY Sodium Chloride (0.9 % Sodium Chloride Flush 3 Ml Syringe) 3 ml IVFLUSH QSHIFT [facility] Last Admin: 03/22/25 07:54 Dose: 3 ml Documented By: FREDDY Tolterodine Tartrate (Tolterodine Tartrate La 2 Mg Cap.Er.24h) 2 mg PO DAILY [facility] Last Admin: 03/22/25 12:19 Dose: 2 mg Documented By: FREDDY Labs 03/22/25 06:44 03/22/25 06:44 Labs: Laboratory Results - last 24 hr 03/21/25 03/21/25 03/22/25 09:34 22:15 01:11 MCV MCH MCHC RDW Plt Count MPV Absolute Nucleated RBC Nucleated RBC % (auto) Anion Gap Estim Creat Clear Calc Estimated GFR POC Glucose 287 H Random Glucose Calcium C-Reactive Protein 14.01 H Respiratory Panel [facility]son See Note Adenovirus (Rapid PCR) Not Detected B.pert (TEM-PCR) Not Detected B.parapertussis DNA PCR Not Detected C. pneumoniae DNA (PCR) Not Detected Coronavirus OC43 (PCR) Not Detected Coronavirus HKU1 (PCR) Not Detected Coronavirus 229E (PCR) Not Detected Coronavirus NL63 (PCR) Not Detected Human Metapneumovir PCR Not Detected Influenza A (RT-PCR) Not Detected Influenza A (H1) PCR Not Detected Influ A (H1/09) PCR Not Detected Influenza A (H3) PCR Not Detected Influenza B (RT-PCR) Not Detected M. pneumoniae (PCR) Not Detected Parainfluenza 1 (PCR) Not Detected Parainfluenza 2 (PCR) Not Detected Parainfluenza 3 (PCR) Not Detected Parainfluenza 4 (PCR) Not Detected RSV (PCR) Not Detected Entero/Rhino (PCR) Not Detected SARS-CoV-2 RNA (RT-PCR) Not Detected 03/22/25 03/22/25 03/22/25 06:44 06:49 06:53 MCV 83.4 MCH 27.6 MCHC 33.1 RDW 13.7 Plt Count 281 MPV 10.6 Absolute Nucleated RBC 0.000 Nucleated RBC % (auto) 0.0 Anion Gap 14 Estim Creat Clear Calc 68.9 Estimated GFR > 60 POC Glucose 403 H* 405 H* Random Glucose 422 H* Calcium 8.9 D C-Reactive Protein Respiratory Panel [facility]son Adenovirus (Rapid PCR) B.pert (TEM-PCR) B.parapertussis DNA PCR C. pneumoniae DNA (PCR) Coronavirus OC43 (PCR) Coronavirus HKU1 (PCR) Coronavirus 229E (PCR) Coronavirus NL63 (PCR) Human Metapneumovir PCR Influenza A (RT-PCR) Influenza A (H1) PCR Influ A () PCR Influenza A (H3) PCR Influenza B (RT-PCR) M. pneumoniae (PCR) Parainfluenza 1 (PCR) Parainfluenza 2 (PCR) Parainfluenza 3 (PCR) Parainfluenza 4 (PCR) RSV (PCR) Entero/Rhino (PCR) SARS-CoV-2 RNA (RT-PCR) 03/22/25 03/22/25 08:21 10:47 MCV MCH MCHC RDW Plt Count MPV Absolute Nucleated RBC Nucleated RBC % (auto) Anion Gap Estim Creat Clear Calc Estimated GFR POC Glucose 355 H* 310 H Random Glucose Calcium C-Reactive Protein Respiratory Panel Dobson Adenovirus (Rapid PCR) B.pert (TEM-PCR) B.parapertussis DNA PCR C. pneumoniae DNA (PCR) Coronavirus OC43 (PCR) Coronavirus HKU1 (PCR) Coronavirus 229E (PCR) Coronavirus NL63 (PCR) Human Metapneumovir PCR Influenza A (RT-PCR) Influenza A (H1) PCR Influ A () PCR Influenza A (H3) PCR Influenza B (RT-PCR) M. pneumoniae (PCR) Parainfluenza 1 (PCR) Parainfluenza 2 (PCR) Parainfluenza 3 (PCR) Parainfluenza 4 (PCR) RSV (PCR) Entero/Rhino (PCR) SARS-CoV-2 RNA (RT-PCR) Assessment and Plan (1) Anxiety: Status: Acute (2) HTN (hypertension): Status: Acute Plan 65-year-old Lithuanian-speaking female with a past medical history significant for schizophrenia, hypertension, anxiety, depression, hyperlipidemia, insulin-dependent diabetes, GERD, HSV 2, class 1 obesity, who presented to the ED with shortness of breath and right-sided headache. Headache- tender R temporal area with blurry vision, concern for GCA vs migraine aggressive cough no meningeal signs, no fever or leukocytosis head CT negative ESR 89, CRP 14.01 JOAN panel pending ice pack prn given 125mg solumedrol in ED, continue 50mg prednisone daily toradol scheduled vascular consult for possible GCA bx> Seems less likely, but plan is for o/p biopsy Neurology consultation for question of migraine Pneumonia no leukocytosis, no infection identified CXR with ground-glass opacities COVID/flu/RSV negative respiratory panel negative CTA to r/o PE ordered Rocephin and azithromycin Follow cultures Pulm consult pending HTN continue lasix, metoprolol, lisinopril T2DM lantus 33U daily, reduced dose sliding scale insulin diabetic diet HLD continue statin Mood disorder continue Depakote GERD continue omeprazole Class 1 obesity. BMI 30.5 Discussed importance of weight management as this may be contributing to worsening of other comorbidities Full code VTE prophylaxis: Lovenox Quality Stroke Does the patient have a stroke diagnosis?: No VTE Prior VTE?: No VTE Risk Level:: Medical - moderate - high VTE Device Contraindication: Treatment Not Indicated VTE Drug Contraindication: N/A - Med Ordered
--- NOTE | 2025-03-22 13:07 | MHC.CM.PN ---
IMM 03/22/25, Pt lives on her own, her sister lives upstairs from her. PCP confirmed: Evelia Soni, HCP on file and confirmed: Mack. She has home health services: [facility] day [facility] and [employer] 13 hrs a week. For DME. she uses a walker. She can arrange transport home at [place]. DCP: home, resume services. CM to follow for DC needs.
--- NOTE | 2025-03-22 16:00 | P.CNNE_ITS ---
History of Present Illness Data of Consult Service Date: 03/22/25 Primary Care Provider: Evelia Donald MD HPI Reason for consult: headache This is a 65-year-old Syriac-speaking female with a h/o schizophrenia, hypertension, anxiety, depression, hyperlipidemia, insulin-dependent diabetes, GERD, HSV 2, class 1 obesity, who presented to the ED with shortness of breath and right-sided headache. The patient reports that she has shortness of breath with exertion and at rest with associated chest tightness and pleuritic chest pain. She has had a productive cough with yellow sputum for the past 2 weeks. She denies any sick contacts but reports that she lives alone. She also complains of a right-sided headache rating it a 9/10 which is worse with coughing. She has right temporal tenderness and blurry vision in the right eye. She reports recent cataract surgery earlier this year, unsure when her right eye was done but reports her left eye was done 1st in October. She also reports a recent left eye infection. Her headache radiates to her ear. CT head was negative PMFSH Past Medical History Medical History Nausea Abdominal pain Osteoporosis Hypertension History of blood clot in brain Hypercholesteremia HSV-2 (herpes simplex virus 2) infection Arthritis Rheumatic fever Schizophrenia GERD (gastroesophageal reflux disease) Depression HTN (hypertension) Hyperlipemia Diabetes Family History Family History Sister Age: 64 Osteoarthritis Mother Cancer of lymphatic and hematopoietic tissue, Onset Age: 83 COVID-19 Father FH: heart attack Brother FH: heart attack Other Diabetes HTN (hypertension) Mental health disorder Surgical History Surgical History Hx of colonoscopy History of tubal ligation History of cystostomy History of 2 sections Social History Social History Household Members: None Household Members Other:: sister Housing: Apartment Do you presently have visiting nurse or other home services: No Alcohol intake: never Patient Tobacco Use Status: Never used Tobacco Smoked in Last 30 Days: No e-Cigarette/Vaping Use: Never Used Second Hand Smoke Exposure: No Use of substances other than those prescribed or required for medical reasons: No Currently Displaying Signs/Symptoms of Drug Intoxication Withdrawal: No Advance Directives: Yes Advance Directives on File: Yes Advance Directives Date on File: 02/08/24 Do you have a plan to hurt others: No Plan Recently lost weight without trying: Unsure Eating poorly because of decreased appetite: No Patient : No service: No Current occupational status: disabled Sexual orientation: Straight/Heterosexual Gender identity: Female Cognitive needs: Yes (walker) Hearing needs: No Vision needs: Yes (glasses) Meds Allergies Allergy/AdvReac Type Severity Reaction Status Date / Time Penicillins Allergy Intermediate rash/swelli Verified 03/21/25 09:03 ng shellfish derived Allergy Intermediate Swelling, Verified 03/21/25 09:03 Hives Active Medications: Current Medications Acetaminophen (Acetaminophen 325 Mg Tablet) 975 mg PO Q6H PRN PRN Reason: Pain, Mild 1-3,fever,headache Acyclovir (Acyclovir 200 Mg Capsule) 400 mg PO TID [facility] Last Admin: 03/22/25 14:56 Dose: 400 mg Albuterol/Ipratropium (Albuterol/Iprat 2.5/0.5mg 3 Ml Ampul.Neb) 3 ml INHALE RQ4H WHILE AWAKE PRN PRN Reason: wheezing Amitriptyline HCl (Amitriptyline Hcl 10 Mg Tablet) 5 mg PO BEDTIME [facility] Last Admin: 03/21/25 23:07 Dose: 5 mg Atorvastatin Calcium (Atorvastatin Calcium 10 Mg Tablet) 10 mg PO DAILY [facility] Last Admin: 03/22/25 07:52 Dose: 10 mg Benzonatate (Benzonatate 100 Mg Capsule) 100 mg PO TID [facility] Last Admin: 03/22/25 14:55 Dose: 100 mg Calcium Carbonate (Calcium Carbonate 750 Mg Tab.Chew) 750 mg PO Q4H PRN PRN Reason: Heartburn Ceftriaxone Sodium (Ceftriaxone Sodium 1 Gm Vial) 1 gm IVPUSH Q24H [facility] Last Admin: 03/22/25 14:51 Dose: 1 gm Dextrose (Dextrose 50 % 25 Gm/50 Ml Syringe) 25 gm IVPUSH Q15M PRN; Protocol PRN Reason: per Hypoglycemia Standing Ord. Divalproex Sodium (Divalproex Sodium Er 500 Mg Tab.Er.24h) 1,000 mg PO BEDTIME [facility] Last Admin: 03/21/25 23:07 Dose: 1,000 mg Enoxaparin Sodium (Enoxaparin Sodium 40 Mg/0.4 Ml Syringe) 40 mg SUBCUT Q24H [facility] Last Admin: 03/21/25 23:14 Dose: 40 mg Furosemide (Furosemide 40 Mg Tablet) 40 mg PO DAILY [facility]; Protocol Last Admin: 03/22/25 07:51 Dose: 40 mg Glucose (Glucose Gel 15 Gm Gel..Gram.) 15 gm PO Q15M PRN; Protocol PRN Reason: per Hypoglycemia Standing Ord. Azithromycin 500 mg/ Sodium (Chloride) 250 mls @ 125 mls/hr IV Q24H [facility] Last Admin: 03/22/25 14:55 Dose: 125 mls/hr Insulin Glargine (Insulin Glargine,Hum.Rec.Anlog 100 Unit/Ml 10 Ml Vial) 33 unit SUBCUT DAILY [facility] Last Admin: 03/22/25 07:53 Dose: 33 unit Insulin Human Lispro (Insulin Lispro 100 Unit/Ml 3 Ml Vial) 0 unit SUBCUT QIDACHS [facility]; Protocol Last Admin: 03/22/25 12:19 Dose: 8 unit Ketorolac Tromethamine (Ketorolac Tromethamine 30 Mg/Ml Vial) 30 mg IVPUSH Q6H [facility] Stop: 03/27/25 12:59 Last Admin: 03/22/25 14:54 Dose: 30 mg Lisinopril (Lisinopril 40 Mg Tablet) 40 mg PO DAILY [facility]; Protocol Magnesium Hydroxide (Milk Of Magnesia 30 Ml Oral.Susp) 30 ml PO DAILY PRN PRN Reason: Constipation Melatonin (Melatonin 3 Mg Tablet) 6 mg PO BEDTIME PRN PRN Reason: Insomnia Last Admin: 03/21/25 23:08 Dose: 6 mg Metoprolol Succinate (Metoprolol Succinate Er 25 Mg Tab.Er.24h) 25 mg PO DAILY [facility]; Protocol Last Admin: 03/22/25 07:52 Dose: 25 mg Morphine Sulfate (Morphine Sulfate 4 Mg/Ml Cartridge) 2 mg IVPUSH Q4H PRN; Protocol PRN Reason: Pain, Severe (Pain Scale 7-10) Last Admin: 03/22/25 12:27 Dose: 2 mg Omeprazole (Omeprazole 20 Mg Capsule.Dr) 20 mg PO DAILY@0630 [facility] Last Admin: 03/22/25 05:53 Dose: 20 mg Ondansetron HCl (Ondansetron Hcl 4 Mg/2 Ml Vial) 4 mg IVPUSH Q8H PRN PRN Reason: Nausea and Vomiting Last Admin: 03/21/25 23:02 Dose: 4 mg Oxycodone HCl (Oxycodone Hcl Immed Release 5 Mg Tablet) 5 mg PO Q6H PRN PRN Reason: Pain, Moderate(Pain Scale 4-6) Polyethylene Glycol (Polyethylene Glycol 3350 17 Gm Powd.Pack) 17 gm PO DAILY [facility] Last Admin: 03/22/25 07:56 Dose: 17 gm Prednisone (Prednisone 10 Mg Tablet) 50 mg PO DAILY [facility] Last Admin: 03/22/25 07:51 Dose: 50 mg Ropinirole HCl (Ropinirole Hcl 0.25 Mg Tablet) 1 mg PO BEDTIME [facility] Last Admin: 03/21/25 23:09 Dose: 1 mg Senna/Docusate Sodium (Sennosides/Docusate Sodium Tablet) 1 tab PO BID [facility] Last Admin: 03/22/25 07:51 Dose: 1 tab Sodium Chloride (0.9 % Sodium Chloride Flush 3 Ml Syringe) [facility] Last Admin: 03/22/25 14:59 Dose: 3 ml Tolterodine Tartrate (Tolterodine Tartrate La 2 Mg Cap.Er.24h) 2 mg PO DAILY [facility] Last Admin: 03/22/25 12:19 Dose: 2 mg Home Medications ?Medication ?Instructions ?Recorded ?Confirmed ?Last Taken ?Type amitriptyline 10 mg tablet 5 mg PO BEDTIME 01/19/2501/18/25 History polyethylene glycol 3350 17 17 g PO DAILY Constipation 01/19/25 03/21/25 Unknown History gram/dose oral powder (Miralax) ropinirole 0.25 mg tablet 1 mg PO BEDTIME 01/19/2510/1501/19/25 History sennosides 8.6 mg-docusate sodium 1 tab PO BID 5 03/21/25 Unknown History 50 mg tablet (Senna with Docusate Sodium) omeprazole 20 mg capsule,delayed 20 mg PO DAILY@0630 0 03/21/25 03/21/25 Unknown History release promethazine 25 mg tablet 12.5 mg PO Q6H PRN Nausea 03/21/25 Unknown History Physical Exam 2 Vital Signs: Vital Signs: Last Vital Signs Temp 96.9 F 03/22/25 15:16 Pulse 88 03/22/25 15:23 Resp 16 03/22/25 15:16 BP 123/58 L 03/22/25 15:16 Pulse Ox 99 03/22/25 15:23 O2 Del Method Room Air 03/22/25 15:16 O2 Flow Rate 2 03/22/25 07:26 BMI result Body Mass Index 30.1 Neuro: Other: Normal non focal exam. Slight tenderness of right sikh Results Labs 03/22/25 06:44 03/22/25 06:44 Labs: Short CBC 03/22/25 Range/Units 06:44 WBC 7.5 (4.8-10.8) X10*3/uL Hgb 11.0 L (12.0-16.0) g/dl Hct 33.2 L (37.0-47.0) % Plt Count 281 (160-400) X10*3/uL BMP 03/22/25 06:44 Sodium 134 L Potassium 4.5 Chloride 101 Carbon Dioxide 24 BUN 14 Creatinine 0.79 Calcium 8.9 D Assessment and Plan (1) Headache: Status: Acute Plan tension WAYNE . R/O tempral arteritis. Recom. Check sedrate. Start Naproxen 500mg bid. Procedures Date of Service Date of Service: 03/22/25
[2025-03-22 16:47] LABS: Glucose, Whole Blood 297 mg/dL (60-115)
[2025-03-22 20:28] LABS: Glucose, Whole Blood 311 mg/dL (60-115)
[2025-03-23 03:34] VITALS: BP 140/60; PULSE 73; RESP 18; TEMP 36.2; O2SAT 94
[2025-03-23 07:05] LABS: Glucose, Whole Blood 322 mg/dL (60-115)
[2025-03-23 07:10] LABS: Anion Gap 13 (12-20); Blood Urea Nitrogen 28 mg/dL (9-16); Calcium 8.5 mg/dL (8.4-10.2); Carbon Dioxide 24 mmol/L (22-29); Chloride 98 mmol/L (96-108); Creatinine Clr Calc Pharmacy 64.0; Estimated Glomerular Filt Rate > 60; Potassium 4.3 mmol/L (3.3-5.1); Sodium 131 mmol/L (135-145)
[2025-03-23 07:18] LABS: Hematocrit 32.2 % (37.0-47.0); Hemoglobin 10.6 g/dl (12.0-16.0); Mean Corpuscular HGB Conc 32.9 g/dl (31.0-35.0); Mean Corpuscular Hemoglobin 27.5 pg (27.0-33.0); Mean Corpuscular Volume 83.4 fL (80.0-98.0); NRBC Abs Auto 0.000 X10*3/uL (0.0-0.012); NRBC Pct Auto 0.0 /100WBC (0.0-0.2); Platelet Count 345 X10*3/uL (160-400); Red Blood Count 3.86 X10*6/uL (4.20-5.50); White Blood Count 17.7 X10*3/uL (4.8-10.8)
[2025-03-23 07:20] VITALS: BP 145/70; PULSE 72; RESP 20; TEMP 36.1; O2SAT 95
[2025-03-23] MEDS: Insulin Glargine,Hum.rec.anlog 100 UNIT/ML 10 ML VIAL 33 UNIT SUBCUT (09:07)
[2025-03-23] MEDS: 0.9 % Sodium Chloride Flush 3 ML SYRINGE IVFLUSH ×2 (09:09→16:19)
[2025-03-23] MEDS: Metoprolol Succinate ER 25 MG TAB.ER.24H PO (09:09)
[2025-03-23] MEDS: Tolterodine Tartrate LA 2 MG CAP.ER.24H PO (09:10)
[2025-03-23] MEDS: oxyCODONE HCl Immed Release 5 MG TABLET PO (09:29)
[2025-03-23 11:13] LABS: Glucose, Whole Blood 376 mg/dL (60-115)
[2025-03-23 11:24] VITALS: BP 147/71; PULSE 61; RESP 20; TEMP 36.1; O2SAT 97
--- NOTE | 2025-03-23 12:11 | P.PNIM_ITS ---
Subjective Subjective Date of Service: 03/23/25 Interval History: Seen and examined this morning Follow-up for headache, pneumonia History obtained with the assistance of a cashier payments received Patient reporting ongoing right side headache and pain with cough denies sob Constitutional Constitutional: Denies chills and Denies fever(s) Cardiovascular Cardiovascular: Denies palpitations and Denies dyspnea Respiratory Respiratory: Reports cough and Denies dyspnea Endocrine Endocrine: Denies palpitations Physical Exam 2 Vital Signs: Vital Signs: Last Vital Signs Temp 97.0 F 03/23/25 11:24 Pulse 61 03/23/25 11:24 Resp 20 03/23/25 11:24 BP 147/71 H 03/23/25 11:24 Pulse Ox 97 03/23/25 11:24 O2 Del Method Room Air 03/23/25 11:24 O2 Flow Rate 2 03/22/25 07:26 BMI result Body Mass Index 30.1 Const: General: cooperative, comfortable, no acute distress, alert and awake Nutritional Appearance: overweight Orientation/consciousness: patient oriented x3 Resp: Other: rhonchi Effort & Inspection: normal respiratory effort, able to speak in complete sentences, no respiratory distress and no use of accessory muscles Cardio: Rate: regular rate Neuro: General: patient oriented x3, moves all extremities and CN's II-XI intact bilaterally Objective Data Active Medications Acetaminophen (Acetaminophen 325 Mg Tablet) 975 mg PO Q6H PRN PRN Reason: Pain, Mild 1-3,fever,headache Last Admin: 03/23/25 04:37 Dose: 975 mg Documented By: AMARJIT Acyclovir (Acyclovir 200 Mg Capsule) 400 mg PO TID [facility] Last Admin: 03/23/25 09:09 Dose: 400 mg Documented By: FREDDY Albuterol/Ipratropium (Albuterol/Iprat 2.5/0.5mg 3 Ml Ampul.Neb) 3 ml INHALE RQ4H WHILE AWAKE PRN PRN Reason: wheezing Amitriptyline HCl (Amitriptyline Hcl 10 Mg Tablet) 5 mg PO BEDTIME [facility] Last Admin: 03/22/25 20:22 Dose: 5 mg Documented By: AMARJIT Atorvastatin Calcium (Atorvastatin Calcium 10 Mg Tablet) 10 mg PO DAILY [facility] Last Admin: 03/23/25 09:09 Dose: 10 mg Documented By: FREDDY Calcium Carbonate (Calcium Carbonate 750 Mg Tab.Chew) 750 mg PO Q4H PRN PRN Reason: Heartburn Ceftriaxone Sodium (Ceftriaxone Sodium 1 Gm Vial) 1 gm IVPUSH Q24H [facility] Last Admin: 03/22/25 14:51 Dose: 1 gm Documented By: FREDDY Dextrose (Dextrose 50 % 25 Gm/50 Ml Syringe) 25 gm IVPUSH Q15M PRN; Protocol PRN Reason: per Hypoglycemia Standing Ord. Divalproex Sodium (Divalproex Sodium Er 500 Mg Tab.Er.24h) 1,000 mg PO BEDTIME [facility] Last Admin: 03/22/25 20:22 Dose: 1,000 mg Documented By: AMARJIT Enoxaparin Sodium (Enoxaparin Sodium 40 Mg/0.4 Ml Syringe) 40 mg SUBCUT Q24H [facility] Last Admin: 03/22/25 22:29 Dose: 40 mg Documented By: AMARJIT Furosemide (Furosemide 40 Mg Tablet) 40 mg PO DAILY [facility]; Protocol Last Admin: 03/23/25 09:10 Dose: 40 mg Documented By: FREDDY Glucose (Glucose Gel 15 Gm Gel..Gram.) 15 gm PO Q15M PRN; Protocol PRN Reason: per Hypoglycemia Standing Ord. Guaifenesin/Codeine Phosphate (Guaifen/Codeine Sf 200/20/10ml 10 Ml Liquid) 5 ml PO Q6H PRN PRN Reason: Cough Azithromycin 500 mg/ Sodium (Chloride) 250 mls @ 125 mls/hr IV Q24H [facility] Last Infusion: 03/22/25 17:22 Dose: Infused Documented By: FREDDY Insulin Glargine (Insulin Glargine,Hum.Rec.Anlog 100 Unit/Ml 10 Ml Vial) 33 unit SUBCUT DAILY [facility] Last Admin: 03/23/25 09:07 Dose: 33 unit Documented By: FREDDY Insulin Human Lispro (Insulin Lispro 100 Unit/Ml 3 Ml Vial) 0 unit SUBCUT QIDACHS [facility]; Protocol Last Admin: 03/23/25 12:08 Dose: 10 unit Documented By: SARAH Ketorolac Tromethamine (Ketorolac Tromethamine 30 Mg/Ml Vial) 30 mg IVPUSH Q6H [facility] Stop: 03/27/25 12:59 Last Admin: 03/23/25 06:29 Dose: 30 mg Documented By: AMARJIT Lisinopril (Lisinopril 40 Mg Tablet) 40 mg PO DAILY [facility]; Protocol Last Admin: 03/23/25 09:10 Dose: 40 mg Documented By: FREDDY Magnesium Hydroxide (Milk Of Magnesia 30 Ml Oral.Susp) 30 ml PO DAILY PRN PRN Reason: Constipation Melatonin (Melatonin 3 Mg Tablet) 6 mg PO BEDTIME PRN PRN Reason: Insomnia Last Admin: 03/22/25 20:23 Dose: 6 mg Documented By: AMARJIT Metoprolol Succinate (Metoprolol Succinate Er 25 Mg Tab.Er.24h) 25 mg PO DAILY [facility]; Protocol Last Admin: 03/23/25 09:09 Dose: 25 mg Documented By: FREDDY Morphine Sulfate (Morphine Sulfate 4 Mg/Ml Cartridge) 2 mg IVPUSH Q4H PRN; Protocol PRN Reason: Pain, Severe (Pain Scale 7-10) Last Admin: 03/22/25 20:21 Dose: 2 mg Documented By: AMARJIT Omeprazole (Omeprazole 20 Mg Capsule.Dr) 20 mg PO DAILY@0630 [facility] Last Admin: 03/23/25 06:30 Dose: 20 mg Documented By: AMARJIT Ondansetron HCl (Ondansetron Hcl 4 Mg/2 Ml Vial) 4 mg IVPUSH Q8H PRN PRN Reason: Nausea and Vomiting Last Admin: 03/21/25 23:02 Dose: 4 mg Documented By: CELESTINO Polyethylene Glycol (Polyethylene Glycol 3350 17 Gm Powd.Pack) 17 gm PO DAILY [facility] Last Admin: 03/23/25 09:09 Dose: 17 gm Documented By: FREDDY Prednisone (Prednisone 20 Mg Tablet) 60 mg PO DAILY [facility] Ropinirole HCl (Ropinirole Hcl 0.25 Mg Tablet) 1 mg PO BEDTIME [facility] Last Admin: 03/22/25 20:22 Dose: 1 mg Documented By: AMARJIT Senna/Docusate Sodium (Sennosides/Docusate Sodium Tablet) 1 tab PO BID [facility] Last Admin: 03/23/25 09:10 Dose: 1 tab Documented By: FREDDY Sodium Chloride (0.9 % Sodium Chloride Flush 3 Ml Syringe) 3 ml IVFLUSH QSHIFT [facility] Last Admin: 03/23/25 09:09 Dose: 3 ml Documented By: FREDDY Tolterodine Tartrate (Tolterodine Tartrate La 2 Mg Cap.Er.24h) 2 mg PO DAILY [facility] Last Admin: 03/23/25 09:10 Dose: 2 mg Documented By: FREDDY Labs 03/23/25 06:23 03/23/25 06:23 Labs: Laboratory Results - last 24 hr 03/22/25 03/22/25 03/23/25 16:41 20:23 06:23 MCV 83.4 MCH 27.5 MCHC 32.9 RDW 13.5 Plt Count 345 MPV 10.6 Absolute Nucleated RBC 0.000 Nucleated RBC % (auto) 0.0 Anion Gap 13 Estim Creat Clear Calc 64.0 Estimated GFR > 60 POC Glucose 297 H 311 H Random Glucose 334 H Calcium 8.5 03/23/25 03/23/25 06:58 11:06 MCV MCH MCHC RDW Plt Count MPV Absolute Nucleated RBC Nucleated RBC % (auto) Anion Gap Estim Creat Clear Calc Estimated GFR POC Glucose 322 H 376 H* Random Glucose Calcium Assessment and Plan (1) Headache: Status: Acute Plan This ia a 65-year-old [place]-speaking female with a past medical history significant for schizophrenia, hypertension, anxiety, depression, hyperlipidemia, insulin-dependent diabetes, GERD, HSV 2, class 1 obesity, who presented to the ED with shortness of breath and right-sided headache admitted due to concern for giant cell arteritis. Headache- tender R temporal area with blurry vision, concern for GCA vs migraine no meningeal signs, fever or leukocytosis head CT negative ESR 89, CRP 14.01 JOAN panel pending given 125mg solumedrol in ED, continue 60mg prednisone daily toradol scheduled vascular consult for possible GCA bx> plan is for o/p biopsy Neurology consultation, likely tension headache with possible GCA Pneumonia CTA showing scattered ground-glass densities indicating possible developing pneumonitis COVID/flu/RSV negative respiratory panel negative continue IV Rocephin and azithromycin Pulm consult pending Leukocytosis Due to steroids Lung nodule Recommend repeat CT scan in 3-6 months HTN continue lasix, metoprolol, lisinopril T2DM with steroid induced hyperglycemia hold trulicity continue lantus, initially given reduced dose, will titrate up. may need further titration sliding scale insulin diabetic diet HLD continue statin Mood disorder continue Depakote GERD continue omeprazole Class 1 obesity. BMI 30.5 Discussed importance of weight management as this may be contributing to worsening of other comorbidities Full code VTE prophylaxis: Lovenox Quality Stroke Does the patient have a stroke diagnosis?: No VTE Prior VTE?: No VTE Risk Level:: Medical - moderate - high VTE Device Contraindication: Treatment Not Indicated VTE Drug Contraindication: N/A - Med Ordered
[2025-03-23] MEDS: Milk of Magnesia 30 ML ORAL.SUSP PO (12:18)
--- NOTE | 2025-03-23 12:30 | PM.CNPUL ---
History of Present Illness History of Present Illness Consult date: 03/23/25 Chief complaint: SOB, headache, chest tightness Narrative: This is an in patient pulmonary consultation. The patient is a 65-year-old Telugu-speaking female with a past medical history significant for schizophrenia, hypertension, anxiety, depression, hyperlipidemia, insulin-dependent diabetes, GERD, HSV 2, class 1 obesity, who presented to the ED with shortness of breath and right-sided headache. The patient reports that she has shortness of breath with exertion and at rest with associated chest tightness and pleuritic chest pain. She has had a productive cough with yellow sputum for the past 2 weeks. She denies any sick contacts but reports that she lives alone. She also complains of a right-sided headache rating it a 9/10 which is worse with coughing. She has right temporal tenderness and blurry vision in the right eye. I did review her CT chest with areas of GGO and pneumonitis, likely an atypical pneumonia. Review of Systems Constitutional: Constitutional: Denies chills, Reports fatigue, Denies fever(s) and Reports headache(s) Eyes: Eyes: Reports blurry vision and Reports change in vision ENT: Reports headache(s), Denies nasal congestion, Denies neck pain and Denies sore throat Cardiovascular: Cardiovascular: Reports chest pain (pleuritic), Denies rapid heart rate, Denies leg edema, Reports dyspnea and Reports dyspnea on exertion Respiratory: Respiratory: Reports cough, Reports pain with cough, Reports dyspnea, Reports dyspnea on exertion and Reports wheezing Gastrointestinal: Gastrointestinal: Denies abdominal pain, Denies nausea and Denies vomiting Genitourinary: Genitourinary: Denies difficulty voiding, Denies dysuria and Denies urinary urgency Musculoskeletal: Musculoskeletal: Denies myalgias and Denies neck pain Integumentary/Breasts: Skin/Breast: Denies rash Neurologic: Denies confusion and Reports headache(s) Psychiatric: Psychiatric: Denies confusion Endocrine: Endocrine: Reports fatigue Hematologic/Lymphatic: Hematologic/Lymphatic: Denies easy bleeding and Denies easy bruising Allergic/Immunologic: Allergic/Immunologic: Reports wheezing PMFSH Past Medical History Medical History (Updated 03/23/25 @ 12:33 by Shlomo Orozco MD) Atypical pneumonia Pneumonitis Nausea Abdominal pain Osteoporosis Hypertension History of blood clot in brain Hypercholesteremia HSV-2 (herpes simplex virus 2) infection Arthritis Rheumatic fever Schizophrenia GERD (gastroesophageal reflux disease) Depression HTN (hypertension) Hyperlipemia Diabetes Family History Family History Sister Age: 64 Osteoarthritis Mother Cancer of lymphatic and hematopoietic tissue, Onset Age: 83 COVID-19 Father FH: heart attack Brother FH: heart attack Other Diabetes HTN (hypertension) Mental health disorder Surgical History Surgical History Hx of colonoscopy History of tubal ligation History of cystostomy History of 2 sections Social History Social History Household Members: None Household Members Other:: sister Housing: Apartment Do you presently have visiting nurse or other home services: No Alcohol intake: never Patient Tobacco Use Status: Never used Tobacco Smoked in Last 30 Days: No e-Cigarette/Vaping Use: Never Used Second Hand Smoke Exposure: No Use of substances other than those prescribed or required for medical reasons: No Currently Displaying Signs/Symptoms of Drug Intoxication Withdrawal: No Advance Directives: Yes Advance Directives on File: Yes Advance Directives Date on File: 02/08/24 Do you have a plan to hurt others: No Plan Recently lost weight without trying: Unsure Eating poorly because of decreased appetite: No Patient : No service: No Current occupational status: disabled Sexual orientation: Straight/Heterosexual Gender identity: Female Cognitive needs: Yes (walker) Hearing needs: No Vision needs: Yes (glasses) Meds Allergies Allergy/AdvReac Type Severity Reaction Status Date / Time Penicillins Allergy Intermediate rash/swelli Verified 03/21/25 09:03 ng shellfish derived Allergy Intermediate Swelling, Verified 03/21/25 09:03 Hives Active Medications: Current Medications Acetaminophen (Acetaminophen 325 Mg Tablet) 975 mg PO Q6H PRN PRN Reason: Pain, Mild 1-3,fever,headache Last Admin: 03/23/25 04:37 Dose: 975 mg Acyclovir (Acyclovir 200 Mg Capsule) 400 mg PO TID CASANDRA Last Admin: 03/23/25 09:09 Dose: 400 mg Albuterol/Ipratropium (Albuterol/Iprat 2.5/0.5mg 3 Ml Ampul.Neb) 3 ml INHALE RQ4H WHILE AWAKE PRN PRN Reason: wheezing Amitriptyline HCl (Amitriptyline Hcl 10 Mg Tablet) 5 mg PO BEDTIME [facility] Last Admin: 03/22/25 20:22 Dose: 5 mg Atorvastatin Calcium (Atorvastatin Calcium 10 Mg Tablet) 10 mg PO DAILY [facility] Last Admin: 03/23/25 09:09 Dose: 10 mg Calcium Carbonate (Calcium Carbonate 750 Mg Tab.Chew) 750 mg PO Q4H PRN PRN Reason: Heartburn Ceftriaxone Sodium (Ceftriaxone Sodium 1 Gm Vial) 1 gm IVPUSH Q24H [facility] Last Admin: 03/23/25 12:16 Dose: 1 gm Dextrose (Dextrose 50 % 25 Gm/50 Ml Syringe) 25 gm IVPUSH Q15M PRN; Protocol PRN Reason: per Hypoglycemia Standing Ord. Divalproex Sodium (Divalproex Sodium Er 500 Mg Tab.Er.24h) 1,000 mg PO BEDTIME [facility] Last Admin: 03/22/25 20:22 Dose: 1,000 mg Enoxaparin Sodium (Enoxaparin Sodium 40 Mg/0.4 Ml Syringe) 40 mg SUBCUT Q24H [facility] Last Admin: 03/22/25 22:29 Dose: 40 mg Furosemide (Furosemide 40 Mg Tablet) 40 mg PO DAILY [facility]; Protocol Last Admin: 03/23/25 09:10 Dose: 40 mg Glucose (Glucose Gel 15 Gm Gel..Gram.) 15 gm PO Q15M PRN; Protocol PRN Reason: per Hypoglycemia Standing Ord. Guaifenesin/Codeine Phosphate (Guaifen/Codeine Sf 200/20/10ml 10 Ml Liquid) 5 ml PO Q6H PRN PRN Reason: Cough Azithromycin 500 mg/ Sodium (Chloride) 250 mls @ 125 mls/hr IV Q24H [facility] Last Admin: 03/23/25 12:16 Dose: 125 mls/hr Insulin Glargine (Insulin Glargine,Hum.Rec.Anlog 100 Unit/Ml 10 Ml Vial) 40 unit SUBCUT DAILY [facility] Insulin Human Lispro (Insulin Lispro 100 Unit/Ml 3 Ml Vial) 0 unit SUBCUT QIDACHS [facility]; Protocol Last Admin: 03/23/25 12:08 Dose: 10 unit Ketorolac Tromethamine (Ketorolac Tromethamine 30 Mg/Ml Vial) 30 mg IVPUSH Q6H [facility] Stop: 03/27/25 12:59 Last Admin: 03/23/25 12:17 Dose: 30 mg Lisinopril (Lisinopril 40 Mg Tablet) 40 mg PO DAILY [facility]; Protocol Last Admin: 03/23/25 09:10 Dose: 40 mg Magnesium Hydroxide (Milk Of Magnesia 30 Ml Oral.Susp) 30 ml PO DAILY PRN PRN Reason: Constipation Last Admin: 03/23/25 12:18 Dose: 30 ml Melatonin (Melatonin 3 Mg Tablet) 6 mg PO BEDTIME PRN PRN Reason: Insomnia Last Admin: 03/22/25 20:23 Dose: 6 mg Metoprolol Succinate (Metoprolol Succinate Er 25 Mg Tab.Er.24h) 25 mg PO DAILY [facility]; Protocol Last Admin: 03/23/25 09:09 Dose: 25 mg Morphine Sulfate (Morphine Sulfate 4 Mg/Ml Cartridge) 2 mg IVPUSH Q4H PRN; Protocol PRN Reason: Pain, Severe (Pain Scale 7-10) Last Admin: 03/22/25 20:21 Dose: 2 mg Omeprazole (Omeprazole 20 Mg Capsule.Dr) 20 mg PO DAILY@0630 [facility] Last Admin: 03/23/25 06:30 Dose: 20 mg Ondansetron HCl (Ondansetron Hcl 4 Mg/2 Ml Vial) 4 mg IVPUSH Q8H PRN PRN Reason: Nausea and Vomiting Last Admin: 03/21/25 23:02 Dose: 4 mg Polyethylene Glycol (Polyethylene Glycol 3350 17 Gm Powd.Pack) 17 gm PO DAILY [facility] Last Admin: 03/23/25 09:09 Dose: 17 gm Prednisone (Prednisone 20 Mg Tablet) 60 mg PO DAILY [facility] Ropinirole HCl (Ropinirole Hcl 0.25 Mg Tablet) 1 mg PO BEDTIME [facility] Last Admin: 03/22/25 20:22 Dose: 1 mg Senna/Docusate Sodium (Sennosides/Docusate Sodium Tablet) 1 tab PO BID [facility] Last Admin: 03/23/25 09:10 Dose: 1 tab Sodium Chloride (0.9 % Sodium Chloride Flush 3 Ml Syringe) 3 ml IVFLUSH QSHIFT [facility] Last Admin: 03/23/25 09:09 Dose: 3 ml Tolterodine Tartrate (Tolterodine Tartrate La 2 Mg Cap.Er.24h) 2 mg PO DAILY [facility] Last Admin: 03/23/25 09:10 Dose: 2 mg Home Medications ?Medication ?Instructions ?Recorded ?Confirmed ?Last Taken ?Type amitriptyline 10 mg tablet 5 mg PO BEDTIME 01/19/25 03/21/25 01/18/25 History polyethylene glycol 3350 17 17 g PO DAILY Constipation 01/19/25 03/21/25 Unknown History gram/dose oral powder (Miralax) ropinirole 0.25 mg tablet 1 mg PO BEDTIME 01/19/25 03/21/25 01/19/25 History sennosides 8.6 mg-docusate sodium 1 tab PO BID 01/19/25 03/21/25 Unknown History 50 mg tablet (Senna with Docusate Sodium) omeprazole 20 mg capsule,delayed 20 mg PO DAILY@0630 03/21/25 03/21/25 Unknown History release promethazine 25 mg tablet 12.5 mg PO Q6H PRN Nausea 03/21/25 03/21/25 Unknown History Physical Exam Vital Signs: Vital Signs: Last Vital Signs Temp 97.0 F 03/23/25 11:24 Pulse 61 03/23/25 11:24 Resp 20 03/23/25 11:24 BP 147/71 H 03/23/25 11:24 Pulse Ox 97 03/23/25 11:24 O2 Del Method Room Air 03/23/25 11:24 O2 Flow Rate 2 03/22/25 07:26 BMI result Body Mass Index 30.1 Const: General: No confusion Nutritional Appearance: overweight Orientation/consciousness: No confusion Resp: Other: rhonchi Effort & Inspection: normal respiratory effort, able to speak in complete sentences, no respiratory distress and no use of accessory muscles Cardio: Rate: regular rate Neuro: General: No confusion Results Laboratory Findings 03/23/25 06:23 03/23/25 06:23 Abnormal lab findings: Abnormal Labs 03/21/25 03/21/25 03/21/25 09:33 09:34 22:15 WBC RBC Hgb 11.6 L Hct 34.7 L Immature Gran % (Auto) 1.0 H Abs Immat Gran (auto) 0.09 H ESR 89 H Sodium BUN POC Glucose 287 H Random Glucose 218 H Alkaline Phosphatase 207 H C-Reactive Protein 14.01 H 03/22/25 03/22/25 03/22/25 06:44 06:49 06:53 WBC RBC 3.98 L Hgb 11.0 L Hct 33.2 L Immature Gran % (Auto) Abs Immat Gran (auto) ESR Sodium 134 L BUN POC Glucose 403 H* 405 H* Random Glucose 422 H* Alkaline Phosphatase C-Reactive Protein 03/22/25 03/22/25 03/22/25 08:21 10:47 16:41 WBC RBC Hgb Hct Immature Gran % (Auto) Abs Immat Gran (auto) ESR Sodium BUN POC Glucose 355 H* 310 H 297 H Random Glucose Alkaline Phosphatase C-Reactive Protein 03/22/25 03/23/25 03/23/25 20:23 06:23 06:58 WBC 17.7 H RBC 3.86 L Hgb 10.6 L Hct 32.2 L Immature Gran % (Auto) Abs Immat Gran (auto) ESR Sodium 131 L BUN 28 H POC Glucose 311 H 322 H Random Glucose 334 H Alkaline Phosphatase C-Reactive Protein 03/23/25 11:06 WBC RBC Hgb Hct Immature Gran % (Auto) Abs Immat Gran (auto) ESR Sodium BUN POC Glucose 376 H* Random Glucose Alkaline Phosphatase C-Reactive Protein Assessment and Plan (1) Acute bronchitis: Qualifiers: Bronchitis organism: unspecified organism Qualified Code(s): J20.9 - Acute bronchitis, unspecified Status: Acute (2) Pneumonitis: Status: Acute (3) Atypical pneumonia: Status: Acute Plan continue abx therapy Prednisone taper cough medicine start Trelegy 200 daily Bloodwork Procedures Date of Service Date of Service: 03/23/25
[2025-03-23 13:56] LABS: HIV Num 1 0.19 S/CO (0.00-0.99)
--- NOTE | 2025-03-23 14:52 | MHC.CM.PN ---
CM met with pt. to discuss PT rec. for home PT. Pt. attends [facility] day [facility] M-F 7:30- 2:30, and they have PT there. CM left a [employer] phone message for [email or web address] Application [phone] requesting a call back to ask how to refer for this pt to get PT at the center. They are not listed in [facility].
[2025-03-23 15:55] VITALS: BP 148/72; PULSE 60; RESP 18; TEMP 36.1; O2SAT 96
[2025-03-23 16:24] LABS: Glucose, Whole Blood 236 mg/dL (60-115)
[2025-03-23] MEDS: guaiFEN/Codeine SF 200/20/10ML 10 ML LIQUID 5 ML PO ×2 (16:34→22:24)
[2025-03-23 20:00] VITALS: BP 128/78; PULSE 65; RESP 18; TEMP 36.1; O2SAT 94
[2025-03-23 21:05] LABS: Glucose, Whole Blood 335 mg/dL (60-115)
[2025-03-23 23:33] VITALS: BP 169/77; PULSE 63; RESP 18; TEMP 36.8; O2SAT 97
[2025-03-24] VITALS (7 sets, daily range): BP systolic 141–172; BP diastolic 68–86; PULSE 55–70; RESP 12–20; TEMP 36.1–37.1; O2SAT 95–99
[2025-03-24] MEDS: 0.9 % Sodium Chloride Flush 3 ML SYRINGE IVFLUSH ×2 (01:26→07:58)
[2025-03-24 07:01] LABS: Glucose, Whole Blood 253 mg/dL (60-115)
[2025-03-24 07:27] LABS: Hematocrit 33.5 % (37.0-47.0); Hemoglobin 11.1 g/dl (12.0-16.0); Mean Corpuscular HGB Conc 33.1 g/dl (31.0-35.0); Mean Corpuscular Hemoglobin 27.4 pg (27.0-33.0); Mean Corpuscular Volume 82.7 fL (80.0-98.0); NRBC Abs Auto 0.000 X10*3/uL (0.0-0.012); NRBC Pct Auto 0.0 /100WBC (0.0-0.2); Platelet Count 366 X10*3/uL (160-400); Red Blood Count 4.05 X10*6/uL (4.20-5.50); White Blood Count 14.4 X10*3/uL (4.8-10.8)
[2025-03-24 07:52] LABS: Anion Gap 13 (12-20); Blood Urea Nitrogen 31 mg/dL (9-16); Calcium 8.8 mg/dL (8.4-10.2); Carbon Dioxide 31 mmol/L (22-29); Chloride 98 mmol/L (96-108); Creatinine Clr Calc Pharmacy 57.8; Estimated Glomerular Filt Rate 60; Potassium 4.5 mmol/L (3.3-5.1); Sodium 137 mmol/L (135-145)
[2025-03-24] MEDS: Fluticasone/Umeclidinium/Vilanterol 200/62.5/25 BLST.W.DEV 1 PUFF INHALE (08:28)
[2025-03-24] MEDS: Metoprolol Succinate ER 25 MG TAB.ER.24H PO (08:33)
[2025-03-24] MEDS: Insulin Glargine,Hum.rec.anlog 100 UNIT/ML 10 ML VIAL 40 UNIT SUBCUT (08:33)
[2025-03-24] MEDS: Tolterodine Tartrate LA 2 MG CAP.ER.24H PO (08:34)
[2025-03-24 09:30] LABS: MRSA Nasal PCR NEGATIVE (Negative); SA Nasal PCR NEGATIVE (Negative)
[2025-03-24 11:00] LABS: Glucose, Whole Blood 263 mg/dL (60-115)
--- NOTE | 2025-03-24 11:26 | PM.DS ---
DS: Providers Provider Date of Service: 03/24/25 Date of admission: 03/21/25 21:09 Date of discharge: 03/24/25 Primary care physician: Evelia Donald MD Consults: 03/21/25 21:12 Consult to Vascular Surgery Routine Consulting Provider: [facility] [place] [facility] Reason for consultation: headache, elevated ESR, ?bx GCA Has provider been notified: No 03/22/25 12:56 Consult to Pulmonology Routine Consulting Provider: [facility] [place] [facility] Reason for consultation: ground glass opacities 03/22/25 12:58 Consult to Neurology Routine Consulting Provider: [facility] Reason for consultation: ? migraines Attending physician on discharge: [facility] Discharging clinician: Lynette Villa DS: Diagnosis Discharge Diagnosis (1) Pneumonitis: Status: Acute (2) Atypical pneumonia: Status: Acute (3) Headache: Status: Acute DS: Summary Hospital Course Hospital Course: From H&P on the day of admission Patient is a 65-year-old Albanian-speaking female with a past medical history significant for schizophrenia, hypertension, anxiety, depression, hyperlipidemia, insulin-dependent diabetes, GERD, HSV 2, class 1 obesity, who presented to the ED with shortness of breath and right-sided headache. The patient reports that she has shortness of breath with exertion and at rest with associated chest tightness and pleuritic chest pain. She has had a productive cough with yellow sputum for the past 2 weeks. She denies any sick contacts but reports that she lives alone. She also complains of a right-sided headache rating it a 9/10 which is worse with coughing. She has right temporal tenderness and blurry vision in the right eye. She reports recent cataract surgery earlier this year, unsure when her right eye was done but reports her left eye was done 1st in October. She also reports a recent left eye infection. Her headache radiates to her ear. Headache- tender R temporal area with blurry vision, concern for GCA vs migraine no meningeal signs, fever or leukocytosis. head CT negative. ESR 89, CRP 14.01. Treated with IV Solu-Medrol and was then transitioned to oral prednisone. Seen by vascular surgery who recommended outpatient follow-up with two weeks of prednisone, possible outpatient biopsy and further steroid therapy determined at follow up. Seen by neurology likely tension headache with possible GCA. We will continue treatment with steroids upon discharge. Given underlying diabetes recommend outpatient follow-up with optometry. Outpatient follow-up with vascular surgery as above. EVELIA pending at the time of discharge. Pneumonia CTA showing scattered ground-glass densities indicating possible developing pneumonitis. COVID/flu/RSV negative. Full respiratory panel negative. Treated with IV Rocephin and azithromycin. Seen by pulmonology, recommended starting Trelegy, completing course of antibiotics. Lab work ordered by pulmonology pending time discharge, recommend outpatient follow-up with pulmonology. No hypoxia or shortness of breath, primary complaint is pain with coughing. Lung nodule Recommend repeat CT scan in 3-6 months T2DM with steroid induced hyperglycemia Resume baseline medications. Recommended close blood sugar monitoring, patient attends day program who can monitor blood sugar closely. Continue diabetic diet PT evaluation-PT recommended home with services. Patient attends a day program during the day. Plan to have VNA and PT services there as per manager of case management Time Attestation Discharge Coordination Time (in mins): 36 Quality: Safe Use of Opioids Does Pt have an Active Cancer Diagnosis on the Problem List?: No Quality: Stroke Does the patient have a stroke diagnosis?: No Physical Exam Vital Signs: Vital Signs: Last Vital Signs Temp 96.9 F 03/24/25 11:24 Pulse 57 03/24/25 11:24 Resp 18 03/24/25 11:24 BP 156/73 H 03/24/25 11:24 Pulse Ox 97 03/24/25 11:24 O2 Del Method Room Air 03/24/25 11:24 O2 Flow Rate 2 03/22/25 07:26 BMI result Body Mass Index 30.1 Const: General: cooperative, comfortable, no acute distress, alert and awake Nutritional Appearance: overweight Orientation/consciousness: patient oriented x3 Resp: Effort & Inspection: normal respiratory effort, able to speak in complete sentences, no respiratory distress and no use of accessory muscles Cardio: Rate: regular rate Neuro: General: patient oriented x3, moves all extremities and CN's II-XI intact bilaterally DS: Data Data Completed and Pending Labs on day of discharge: Laboratory Results - last 24 hr 03/23/25 03/23/25 03/23/25 13:08 16:11 16:38 WBC RBC Hgb Hct MCV MCH MCHC RDW Plt Count MPV Absolute Nucleated RBC Nucleated RBC % (auto) Sodium Potassium Chloride Carbon Dioxide Anion Gap BUN Creatinine Estim Creat Clear Calc Estimated GFR POC Glucose 236 H Random Glucose Calcium Nasal Screen MRSA (PCR) NEGATIVE Nasal S. aureus Screen NEGATIVE Nasal MRSA/S.aureus Interp SEE NOTE IgG Total 863 IgA Total 234 IgM 58 HIV 1&2 Ab/P24 Ag 4thGn Nonreactive 03/23/25 03/24/25 03/24/25 20:48 06:28 06:55 WBC 14.4 H RBC 4.05 L Hgb 11.1 L Hct 33.5 L MCV 82.7 MCH 27.4 MCHC 33.1 RDW 13.4 Plt Count 366 MPV 10.3 Absolute Nucleated RBC 0.000 Nucleated RBC % (auto) 0.0 Sodium 137 Potassium 4.5 Chloride 98 Carbon Dioxide 31 H Anion Gap 13 BUN 31 H Creatinine 0.94 Estim Creat Clear Calc 57.8 Estimated GFR 60 POC Glucose 335 H 253 H Random Glucose 250 H Calcium 8.8 Nasal Screen MRSA (PCR) Nasal S. aureus Screen Nasal MRSA/S.aureus Interp IgG Total IgA Total IgM HIV 1&2 Ab/P24 Ag 4thGn 03/24/25 10:50 WBC RBC Hgb Hct MCV MCH MCHC RDW Plt Count MPV Absolute Nucleated RBC Nucleated RBC % (auto) Sodium Potassium Chloride Carbon Dioxide Anion Gap BUN Creatinine Estim Creat Clear Calc Estimated GFR POC Glucose 263 H Random Glucose Calcium Nasal Screen MRSA (PCR) Nasal S. aureus Screen Nasal MRSA/S.aureus Interp IgG Total IgA Total IgM HIV 1&2 Ab/P24 Ag 4thGn Discharge Plan Discharge Anticipated Discharge Date/Time: 03/24/25 11:35 Patient Disposition: Home, Self-Care Discharge Diagnosis: possible Giant cell arteritis atypical pneumonia Referrals: Ranjit Glass MD [Physician, Vascular Surgery] - 2 Weeks Evelia Sweet MD [Primary Care Provider, Internal Medicine] - 1 Week Shlomo Orozco MD [Physician, Pulmonology] - 2 Weeks Discharge Medications: New azithromycin 250 mg tablet 250 mg PO DAILY 4 Days Qty: 4 0RF cefuroxime axetil 500 mg tablet 500 mg PO Q12H 4 Days Qty: 8 0RF prednisone 20 mg tablet 60 mg PO DAILY 14 Days Qty: 42 0RF Trelegy Ellipta 200-62.5-25 mcg Blister With Device 1 inh inhalation RDAILY Qty: 60 0RF codeine-guaifenesin 10-100 mg/5 mL Liquid 5 ml PO Q6H PRN (Reason: Cough) Qty: 120 0RF Continued (DME) walker Misc See Rx Instructions .Route Qty: 1 0RF Rx Instructions: As directed (DME) blood-glucose meter [FreeStyle Lite Meter] Kit See Rx Instructions .Route Qty: 1 0RF Rx Instructions: As directed furosemide 40 mg tablet 40 mg PO DAILY Qty: 90 3RF (DME) FreeStyle Test Strip See Rx Instructions .Route Qty: 100 6RF Rx Instructions: As directed three times a day tolterodine 2 mg capsule,extended release 24hr 2 mg PO DAILY 90 Days Qty: 90 1RF lisinopril 20 mg tablet 40 mg PO DAILY 90 Days Qty: 180 0RF divalproex 500 mg tablet extended release 24 hr 1,000 mg PO BEDTIME 90 Days Qty: 180 0RF insulin glargine [Lantus Solostar U-100 Insulin] 100 unit/mL (3 mL) insulin pen 48 unit subcut DAILY 90 Days Qty: 43.2 0RF atorvastatin 10 mg tablet 10 mg PO DAILY 90 Days Qty: 90 0RF insulin aspart U-100 [Novolog FlexPen U-100 Insulin] 100 unit/mL (3 mL) insulin pen 10 unit subcut TID 90 Days Qty: 27 0RF Trulicity 1.5 mg/0.5 mL pen injector 1.5 mg subcut FR Qty: 2 0RF acyclovir 400 mg tablet 400 mg PO TID 30 Days Qty: 90 0RF (DME) pen needle, diabetic [1st Tier Unifine Pentips] 32 gauge x 5/32 needle See Rx Instructions .Route Qty: 100 0RF Rx Instructions: Use 1 pen needle three times a day sennosides-docusate sodium [Senna with Docusate Sodium] 8.6-50 mg tablet 1 tab PO BID Rx Instructions: Please take 2 tab every day at bedtime ropinirole 0.25 mg tablet 1 mg PO BEDTIME amitriptyline 10 mg tablet 5 mg PO BEDTIME polyethylene glycol 3350 [Miralax] 17 gram/dose powder 17 g PO DAILY promethazine 25 mg tablet 12.5 mg PO Q6H PRN (Reason: Nausea) omeprazole 20 mg capsule,delayed release(DR/EC) 20 mg PO DAILY@0630 (DME) blood-glucose meter [Remote Assistant Autocode Meter] Kit See Rx Instructions .Route Qty: 1 0RF Rx Instructions: As directed (DME) lancets [Prodigy Lancets] 28 gauge misc See Rx Instructions .Route Qty: 100 11RF Rx Instructions: Use 1 lancet four times a day metoprolol succinate 25 mg tablet extended release 24 hr 25 mg PO DAILY Qty: 30 5RF Rx Instructions: Stop amlodipine Start metoprolol Discharge Orders: Discharge Order (Routine); Ordered 03/24/25 Ordered By: Lynette Villa Activity on Discharge: As tolerated Stand Alone Forms: Patient Portal Discharge page Print Language: Albanian Care Plan Goals: See below Health Concerns: Headache, possible tension headache Possible giant cell arteritis Atypical pneumonia Pulmonary nodule Plan of Treatment: Complete course of antibiotics for pneumonia continue taking steroids daily for possible giant cell arteritis Call to schedule follow-up appointment with vascular surgery for consideration of biopsy, ongoing steroid treatment Call to schedule follow-up pulmonology Start using an inhaler, Trelegy as recommended by sprinkler fitter Assessment: See discharge summary
--- NOTE | 2025-03-24 14:08 | P.PNIM_ITS ---
Subjective Subjective Date of Service: 03/24/25 Interval History: seen and examined this morning follow up pneumonia, headache, reporting constipation abdominal pain, chest pain and headache with cough Review of Systems Review of Systems: Yes all other systems are reviewed and are negative Constitutional Constitutional: Denies chills and Denies fever(s) Physical Exam 2 Vital Signs: Vital Signs: Last Vital Signs Temp 96.9 F 03/24/25 11:24 Pulse 57 03/24/25 11:24 Resp 18 03/24/25 11:24 BP 156/73 H 03/24/25 11:24 Pulse Ox 97 03/24/25 11:24 O2 Del Method Room Air 03/24/25 11:24 O2 Flow Rate 2 03/22/25 07:26 BMI result Body Mass Index 30.1 Const: General: cooperative, comfortable, no acute distress, alert and awake Nutritional Appearance: overweight Orientation/consciousness: patient oriented x3 Resp: Effort & Inspection: normal respiratory effort, able to speak in complete sentences, no respiratory distress and no use of accessory muscles Cardio: Rate: regular rate GI: Inspection: No distended Palpation (GI): Soft to palpation, nontender and no guarding Neuro: General: patient oriented x3, moves all extremities and CN's II-XI intact bilaterally Objective Data Active Medications Acetaminophen (Acetaminophen 325 Mg Tablet) 975 mg PO Q6H PRN PRN Reason: Pain, Mild 1-3,fever,headache Last Admin: 03/23/25 04:37 Dose: 975 mg Documented By: AMARJIT Acyclovir (Acyclovir 200 Mg Capsule) 400 mg PO TID [facility] Last Admin: 03/24/25 08:33 Dose: 400 mg Documented By: PEDRO Albuterol/Ipratropium (Albuterol/Iprat 2.5/0.5mg 3 Ml Ampul.Neb) 3 ml INHALE RQ4H WHILE AWAKE PRN PRN Reason: wheezing Amitriptyline HCl (Amitriptyline Hcl 10 Mg Tablet) 5 mg PO BEDTIME [facility] Last Admin: 03/23/25 19:45 Dose: 5 mg Documented By: SHADY Atorvastatin Calcium (Atorvastatin Calcium 10 Mg Tablet) 10 mg PO DAILY [facility] Last Admin: 03/24/25 08:33 Dose: 10 mg Documented By: PEDRO Calcium Carbonate (Calcium Carbonate 750 Mg Tab.Chew) 750 mg PO Q4H PRN PRN Reason: Heartburn Ceftriaxone Sodium (Ceftriaxone Sodium 1 Gm Vial) 1 gm IVPUSH Q24H [facility] Last Admin: 03/24/25 13:50 Dose: 1 gm Documented By: PEDRO Dextrose (Dextrose 50 % 25 Gm/50 Ml Syringe) 25 gm IVPUSH Q15M PRN; Protocol PRN Reason: per Hypoglycemia Standing Ord. Divalproex Sodium (Divalproex Sodium Er 500 Mg Tab.Er.24h) 1,000 mg PO BEDTIME [facility] Last Admin: 03/23/25 19:46 Dose: 1,000 mg Documented By: SHADY Enoxaparin Sodium (Enoxaparin Sodium 40 Mg/0.4 Ml Syringe) 40 mg SUBCUT Q24H [facility] Last Admin: 03/23/25 21:55 Dose: 40 mg Documented By: SHADY Fluticasone/Umeclidinium/Vilanterol (Fluticasone/Umeclidinium/Vilanterol 200/62.5/25 Blst.W.Dev) 1 puff INHALE RDAILY [facility] Last Admin: 03/24/25 08:28 Dose: 1 puff Documented By: VELASQUEZ Furosemide (Furosemide 40 Mg Tablet) 40 mg PO DAILY [facility]; Protocol Last Admin: 03/24/25 08:33 Dose: 40 mg Documented By: PEDRO Glucose (Glucose Gel 15 Gm Gel..Gram.) 15 gm PO Q15M PRN; Protocol PRN Reason: per Hypoglycemia Standing Ord. Guaifenesin/Codeine Phosphate (Guaifen/Codeine Sf 200/20/10ml 10 Ml Liquid) 5 ml PO Q6H PRN PRN Reason: Cough Last Admin: 03/23/25 22:24 Dose: 5 ml Documented By: SHADY Azithromycin 500 mg/ Sodium (Chloride) 250 mls @ 125 mls/hr IV Q24H [facility] Last Admin: 03/24/25 13:47 Dose: 125 mls/hr Documented By: PEDRO Insulin Glargine (Insulin Glargine,Hum.Rec.Anlog 100 Unit/Ml 10 Ml Vial) 40 unit SUBCUT DAILY [facility] Last Admin: 03/24/25 08:33 Dose: 40 unit Documented By: PEDRO Insulin Human Lispro (Insulin Lispro 100 Unit/Ml 3 Ml Vial) 0 unit SUBCUT QIDACHS [facility]; Protocol Last Admin: 03/24/25 11:52 Dose: 6 unit Documented By: PEDRO Lisinopril (Lisinopril 40 Mg Tablet) 40 mg PO DAILY [facility]; Protocol Last Admin: 03/24/25 08:33 Dose: 40 mg Documented By: PEDRO Magnesium Hydroxide (Milk Of Magnesia 30 Ml Oral.Susp) 30 ml PO DAILY PRN PRN Reason: Constipation Last Admin: 03/23/25 12:18 Dose: 30 ml Documented By: SARAH Melatonin (Melatonin 3 Mg Tablet) 6 mg PO BEDTIME PRN PRN Reason: Insomnia Last Admin: 03/22/25 20:23 Dose: 6 mg Documented By: AMARJIT Metoprolol Succinate (Metoprolol Succinate Er 25 Mg Tab.Er.24h) 25 mg PO DAILY [facility]; Protocol Last Admin: 03/24/25 08:33 Dose: 25 mg Documented By: PEDRO Omeprazole (Omeprazole 20 Mg Capsule.Dr) 20 mg PO DAILY@0630 [facility] Last Admin: 03/24/25 05:44 Dose: 20 mg Documented By: SHADY Ondansetron HCl (Ondansetron Hcl 4 Mg/2 Ml Vial) 4 mg IVPUSH Q8H PRN PRN Reason: Nausea and Vomiting Last Admin: 03/21/25 23:02 Dose: 4 mg Documented By: CELESTINO Polyethylene Glycol (Polyethylene Glycol 3350 17 Gm Powd.Pack) 17 gm PO DAILY [facility] Last Admin: 03/24/25 08:35 Dose: 17 gm Documented By: PEDRO Prednisone (Prednisone 20 Mg Tablet) 60 mg PO DAILY [facility] Last Admin: 03/24/25 08:34 Dose: 60 mg Documented By: PEDRO Ropinirole HCl (Ropinirole Hcl 0.25 Mg Tablet) 1 mg PO BEDTIME [facility] Last Admin: 03/23/25 19:47 Dose: 1 mg Documented By: SHADY Senna/Docusate Sodium (Sennosides/Docusate Sodium Tablet) 1 tab PO BID [facility] Last Admin: 03/24/25 08:33 Dose: 1 tab Documented By: PEDRO Sodium Chloride (0.9 % Sodium Chloride Flush 3 Ml Syringe) 3 ml IVFLUSH QSHIFT [facility] Last Admin: 03/24/25 07:58 Dose: 3 ml Documented By: PEDRO Tolterodine Tartrate (Tolterodine Tartrate La 2 Mg Cap.Er.24h) 2 mg PO DAILY [facility] Last Admin: 03/24/25 08:34 Dose: 2 mg Documented By: PEDRO Labs 03/24/25 06:28 03/24/25 06:28 Labs: Laboratory Results - last 24 hr 03/23/25 03/23/25 03/23/25 13:08 16:11 16:38 MCV MCH MCHC RDW Plt Count MPV Absolute Nucleated RBC Nucleated RBC % (auto) Anion Gap Estim Creat Clear Calc Estimated GFR POC Glucose 236 H Random Glucose Calcium Nasal Screen MRSA (PCR) NEGATIVE Nasal S. aureus Screen NEGATIVE Nasal MRSA/S.aureus Interp SEE NOTE IgG Total 863 IgA Total 234 IgM 58 03/23/25 03/24/25 03/24/25 20:48 06:28 06:55 MCV 82.7 MCH 27.4 MCHC 33.1 RDW 13.4 Plt Count 366 MPV 10.3 Absolute Nucleated RBC 0.000 Nucleated RBC % (auto) 0.0 Anion Gap 13 Estim Creat Clear Calc 57.8 Estimated GFR 60 POC Glucose 335 H 253 H Random Glucose 250 H Calcium 8.8 Nasal Screen MRSA (PCR) Nasal S. aureus Screen Nasal MRSA/S.aureus Interp IgG Total IgA Total IgM 03/24/25 10:50 MCV MCH MCHC RDW Plt Count MPV Absolute Nucleated RBC Nucleated RBC % (auto) Anion Gap Estim Creat Clear Calc Estimated GFR POC Glucose 263 H Random Glucose Calcium Nasal Screen MRSA (PCR) Nasal S. aureus Screen Nasal MRSA/S.aureus Interp IgG Total IgA Total IgM Assessment and Plan (1) Abdominal pain: Status: Acute (2) Atypical pneumonia: Status: Acute Plan This ia a 65-year-old Yi-speaking female with a past medical history significant for schizophrenia, hypertension, anxiety, depression, hyperlipidemia, insulin-dependent diabetes, GERD, HSV 2, class 1 obesity, who presented to the ED with shortness of breath and right-sided headache admitted due to concern for giant cell arteritis. Headache- tender R temporal area with blurry vision, concern for GCA vs migraine no meningeal signs, fever or leukocytosis head CT negative ESR 89, CRP 14.01 JOAN panel pending given 125mg solumedrol in ED, continue 60mg prednisone daily vascular consult for possible GCA bx> plan is for d/c with 14 days of prednisone and then follow up in office for o/p biopsy Neurology consultation, likely tension headache with possible GCA Pneumonia CTA showing scattered ground-glass densities indicating possible developing pneumonitis COVID/flu/RSV negative respiratory panel negative continue IV Rocephin and azithromycin Pulm rec start trelegy, continue steroids; serologies pending; outpatient follow up constipation abdominal exam benign continue bowel reg mag citrate now Leukocytosis Due to steroids, trending down Lung nodule Recommend repeat CT scan in 3-6 months HTN continue lasix, metoprolol, lisinopril T2DM with steroid induced hyperglycemia hold trulicity continue lantus, initially given reduced dose, will titrate up. may need further titration sliding scale insulin diabetic diet HLD continue statin Mood disorder continue Depakote GERD continue omeprazole Class 1 obesity. BMI 30.5 Discussed importance of weight management as this may be contributing to worsening of other comorbidities Full code VTE prophylaxis: Lovenox Quality Stroke Does the patient have a stroke diagnosis?: No VTE Prior VTE?: No VTE Risk Level:: Medical - moderate - high VTE Device Contraindication: Treatment Not Indicated VTE Drug Contraindication: N/A - Med Ordered
--- NOTE | 2025-03-24 15:32 | MHC.CM.PN ---
Pt has been medically cleared to [place], she will go home via private transport and resume her [employer] services and attending [facility].
--- NOTE | 2025-03-24 15:56 | PC.NURSE ---
Message sent to provider: Patient reports 2 small bowel movements that are soft. Abdominal discomfort is better. She feels better and wishes to discharge to home.
[2025-03-27 17:13] LABS: Anti Nuclear Antibody Screen NEGATIVE (NEGATIVE)
[2025-03-29 13:39] LABS: Asperg fumigatus Precip Abs NEGATIVE (NEGATIVE); Micropoly faeni Abs NEGATIVE (NEGATIVE); Saccharo pora viridis Abs NEGATIVE (NEGATIVE); Thermo candidus Abs NEGATIVE (NEGATIVE)
== END 2025-03-24 16:42 | disposition home or self-care (01) | DRG 545 ==
LOC: HO.ED 17:48 → HO.EDOVER 21:15 → HO.IMC 03-22 01:04
PROVIDERS: Emergency Medicine Emergency Medical Services; Hospitalist; Nurse Practitioner Acute Care; Admitting Provider Physician Assistant; Emergency Provider Internal Medicine; PCP Internal Medicine; Visit Provider Physician Assistant Medical
DX: M31.6 Other giant cell arteritis (principal); J18.9 Pneumonia, unspecified organism; F41.9 Anxiety disorder, unspecified; E66.811 Obesity, class 1; Z71.3 Dietary counseling and surveillance; F20.9 Schizophrenia, unspecified; I10 Essential (primary) hypertension; E11.9 Type 2 diabetes mellitus without complications; R91.1 Solitary pulmonary nodule; E11.65 Type 2 diabetes mellitus with hyperglycemia; T38.0X5A Adverse effect of glucocorticoids and synthetic analogues, initial encounter; E78.5 Hyperlipidemia, unspecified; K21.9 Gastro-esophageal reflux disease without esophagitis; F39 Unspecified mood [affective] disorder; Z20.822 Contact with and (suspected) exposure to COVID-19; Z68.30 Body mass index [BMI] 30.0-30.9, adult; Z79.4 Long term (current) use of insulin; Z79.51 Long term (current) use of inhaled steroids; Z79.899 Other long term (current) drug therapy
CPT/HCPCS: 36415; 70450; 71046; 71275; 80048; 80053; 82784; 82785; 82947; 84484; 85025; 85027; 85652; 86038; 86140; 86200; 86331; 86606; 86609; 87389; 87633; 87637; 87640; 87641; 93005; 94640; 97162; 99285; J0456; J0696; J1650; J1885; J2270; J2405; J2919; Q9967

== ENCOUNTER → 2025-03-21 09:05 | Outpatient (BNV) | payer OTHER, SELFPAY | PROVIDERS: Emergency Provider Emergency Medicine Emergency Medical Services; PCP Internal Medicine; Visit Provider Internal Medicine Cardiovascular Disease | DX: R07.9 Chest pain, unspecified (principal) | CPT/HCPCS: 93010 ==

== ENCOUNTER → 2025-03-21 09:45 | Outpatient (BNV) | payer OTHER, SELFPAY | PROVIDERS: Emergency Provider Emergency Medicine Emergency Medical Services; PCP Internal Medicine; Visit Provider Radiology Diagnostic Radiology | DX: R91.1 Solitary pulmonary nodule (principal) | CPT/HCPCS: 71275 ==

== ENCOUNTER → 2025-03-21 21:09 | Outpatient (BNV) | payer OTHER, SELFPAY | PROVIDERS: Admitting Provider Physician Assistant; Emergency Provider Internal Medicine; PCP Internal Medicine; Visit Provider Physician Assistant Surgical | DX: M31.6 Other giant cell arteritis (principal) | CPT/HCPCS: 99222 ==

== ENCOUNTER → 2025-03-21 21:09 | Outpatient (BNV) | payer OTHER, SELFPAY | PROVIDERS: Admitting Provider Physician Assistant; Emergency Provider Internal Medicine; PCP Internal Medicine; Visit Provider Nurse Practitioner Acute Care | DX: R51.9 Headache, unspecified (principal); R06.02 Shortness of breath; R07.81 Pleurodynia; E66.811 Obesity, class 1; F41.9 Anxiety disorder, unspecified; I10 Essential (primary) hypertension | CPT/HCPCS: 99223; 99232 ==

== ENCOUNTER → 2025-03-21 21:09 | Outpatient (BNV) | payer OTHER, SELFPAY | PROVIDERS: Admitting Provider Physician Assistant; Emergency Provider Internal Medicine; PCP Internal Medicine; Visit Provider Psychiatry & Neurology Neurology | DX: G44.209 Tension-type headache, unspecified, not intractable (principal) | CPT/HCPCS: 99222 ==

== ENCOUNTER → 2025-03-21 21:09 | Outpatient (BNV) | payer OTHER, SELFPAY | PROVIDERS: Admitting Provider Physician Assistant; Emergency Provider Internal Medicine; PCP Internal Medicine; Visit Provider Hospitalist | DX: J20.9 Acute bronchitis, unspecified (principal); J98.4 Other disorders of lung; J18.9 Pneumonia, unspecified organism | CPT/HCPCS: 99222 ==

== ENCOUNTER 2025-03-28 12:40 | Outpatient (REF) | payer OTHER, SELFPAY ==
--- NOTE | ~2025-03-28 | US_ITS ---
CLINICAL HISTORY: R10.2 - Pelvic and perineal pain Ultrasound of the female pelvis Comparison: CT/SR - CT ABDOMEN PELVIS W IV CON - 03/07/25 15:07 EDT Technique: Grayscale ultrasound with assistance of color Doppler. Transabdominal scanning performed for overall anatomy. Transvaginal scanning performed for better anatomic delineation. Findings: Anteverted mildly atrophic uterus, measuring 6.0 x 2.6 x 3.4 cm, mildly heterogeneous myometrium, no fibroid is visualized. A few cystic foci noted in the posterior uterine body. Atrophic endometrium, 1 mm in thickness, no focal lesion. Normal cervix. Unremarkable postmenopausal appearance of right ovary, 1.1 x 0.5 x 0.9 cm. No focal mass or cyst. No abnormal vascular flow. Left ovary is not seen, no left adnexal mass. No free fluid. Impression: 1. No sonographic finding to account for pelvic or perineal pain. 2. Unremarkable postmenopausal uterus and right ovary, left ovary is not seen. This document has been electronically signed by: Phyllis Camilo MD on 03/29/2025 12:18:25
--- OUTSIDE RECORDS SUMMARY | 2025-03-28 13:22 | XMS_ITS | Clinical Summary ---
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 ([facility] V24, [facility] [place] V28) 10/04/2021 Lactic acidosis 10/04/2021 Right-sided chest wall pain 10/04/2021 Recurrent falls 10/04/2021 Pyelonephritis 10/04/2021 Obesity 10/04/2021 Sarcoidosis 10/04/2021 Schizoaffective disorder, de pressive type with good prognostic features ([facility] V24, [facility] V28) 10/04/2021 Sinusitis 10/04/2021 Encounter for immunization 10/04/2021 Tremor 10/04/2021 Altered mental state 08/17/2021 Abdominal pain 08/17/2021 DM type 2 (diabetes mellitus , type 2) ([facility] V24, [facility] V28) 05/21/2021 Overview (10/04/2021): x 15 years Necrotizing soft tissue infection 05/18/2021 Sacroiliac pain 11/28/2020 Lumbar facet arthropathy 08/29/2020 DDD (degenerative disc disease), lumbosacral Gastritis 09/28/2018 Acute psychosis ([facility] V24, [facility] V28) 04/23 Anxiety 04/23/2015 Impetigo 04/23/2015 Esotropia of left eye 06/04/2011 Rotary nystagmus 06/04/2011 Strabismic amblyopia 06/04/2011 Hyperthyroidism 02/19/2011 Mixed hyperlipidemia 02/19/2011 Primary open-angle glaucoma(365.11) 08/22/2010 Overview (12/20/2021): Replacing diagnoses that were inactivated after the 12/20/21 IMO import Senile nuclear sclerosis 08/22/2010 Encounters Date Type Department Care Team Description 02/09/2025 10:45 AM EDT Office Visit Orthopedic Surgery - [address] [phone] Zeyad Wallace, DPM Lipodermatosclerosis of both lower extremities due to varicose veins (Primary Dx); Peripheral venous insufficiency; Tinea unguium; Diabetic mononeuropathy simplex ([facility] V24, [facility] V28); Type II diabetes mellitus with peripheral circulatory disorder ([facility] V24, [facility] V28); Metatarsalgia of both feet; [...] Medical History Medical History Date Comments Schizophrenia ([facility] V24, [facility] V28) Diabetes mellitus ([facility] V24, [facility] V28) Disease of thyroid gland Depression Insomnia Anxiety DDD (degenerative disc disease), cervical Psychosis ([facility] V24, [facility] V28) High blood cholesterol level Social History [...] AM EDT Office Visit Orthopedic Surgery - [place] [address] [facility] [address] [place] [id number] Zeyad Wallace, DPDanny [address] [address] Health Maintenance Due Date Last Done Comments [...] LAB CHEMISTRY METHOD 10/04/2021 9:58 PM EST [facility] Potassium 3.8 3.6 - 5.1 mmol/L LAB CHEMISTRY METHOD 10/04/2021 9:58 PM EST [facility] Chloride 98 98 - 107 mmol/L LAB CHEMISTRY METHOD 10/04/2021 9:58 PM EST [facility] CO2 25 22 - 32 mmol/L LAB CHEMISTRY METHOD 10/04/2021 9:58 PM EST [facility] Anion Gap 14 6 - 18 LAB CHEMISTRY METHOD 10/04/2021 9:58 PM EST [facility] Glucose 369(H) 70 - 99 mg/dL LAB CHEMISTRY METHOD 10/04/2021 9:58 PM [facility] BUN 21(H) 8 - 20 mg/dL LAB CHEMISTRY METHOD 10/04/2021 9:58 PM [facility] Creatinine 1.08 0.60 - 1.30 mg/dL LAB CHEMISTRY METHOD 10/04/2021 9:58 PM [facility] eGFR 55 mL/min/1. 73m2 LAB CHEMISTRY METHOD 10/04/2021 9:58 PM [facility] BUN/Creatinine Ratio 19.4 12.0 - 20.0 LAB CHEMISTRY METHOD 10/04/2021 9:58 PM [facility] Calcium 9.4 8.9 - 10.3 mg/dL LAB CHEMISTRY METHOD 10/04/2021 9:58 PM [facility] AST (SGOT) 8(L) 15 - 41 unit/L LAB CHEMISTRY METHOD 10/04/2021 9:58 PM [facility] ALT (SGPT) 14 7 - 52 unit/L LAB CHEMISTRY METHOD 10/04/2021 9:58 PM [facility] Alkaline Phosphatase 106(H) 32 - 91 unit/L LAB CHEMISTRY METHOD 10/04/2021 9:58 PM [facility] Total Protein 6.9 6.1 - 7.9 g/dL LAB CHEMISTRY METHOD 10/04/2021 9:58 PM [facility] Albumin 4.2 3.5 - 4.8 g/dL LAB CHEMISTRY METHOD 10/04/2021 9:58 PM [facility] Total Bilirubin 0.4 0.3 - 1.2 mg/dL LAB CHEMISTRY METHOD 10/04/2021 9:58 PM [facility] Blood Venous blood specimen / Unknown Venipuncture / Unknown 10/04/2021 8:28 PM EST 10/04/2021 8:33 PM EST Neeta Bae MD LAB BLOOD ORDERABLES Final Resu lt LUIS ENRIQUE ARRIOLA [facility] ([facility] [address] [place] [address] * [place] MAMMO DIGITAL SCREENING BILAT (NB) [...] mammography views were obtained. Computer-aided detection utilizing ArvinasCAD reader has been performed. BREAST COMPOSITION: There [...] Most Recently Relevant to Health Maintenance Insurance [facility] [employer] Member Subscriber Plan / Payer (Ef fective 2024-Present) Name:Bessie Bhatia Relation to Subscriber:Self Name:Bessie Bhatia Payer ID:[id number] Group ID:Not on file Type:Not on file Address: [place] [address] [place] [id number] [place]ICA[place] - [place] [facility] [employer] Member Subscriber Plan / Payer (Ef fective 2024-Present) Name:Bessie Bhatia Relation to Subscriber:Self Name:Bessie Bhatia Payer ID:[id number] Group ID:Not on file Type:Not on file Address: [facility] [address] [place] [id number] Advance Directives * Full Code - Default [...] currently active code status orders. Care Teams Medical Support Assistant Relationship Specialty Start Date End Date Evelia Donald MD [address] [place] [address] , [address] [facility] OTIS De Oliveira PCP - General Internal Medicine 08/30/24
--- OUTSIDE RECORDS SUMMARY | 2025-03-28 13:22 | XMS_ITS | Data Portability ---
Author Organization [facility], autoContract Address [address] [place] [address] Assessment No assessment recorded. Plan of Treatment Reminders Order Date Submit Date Provider Last Modified By Organization Details Last Modified Time Details Appointments None recorded. Lab None recorded. Referral None recorded. Procedures None recorded. Surgeries None recorded. Imaging None recorded. Medication Orders ammonium lactate 12 % lotion 2020 021 [id number] [address] [facility], [place], [address], 15:37:21 Patient TargetsNo targets recorded. Patient Instructions Encounter Date Encounter Id Patient Instructions Last Modified By Organization Details Last Modified Time 10/18/2020 [id number] 1.) Office visit with DM foot exam [...] regular follow up evaluation by PCP and/or hot tamale worker. 6.) Return 3 months for DM check up and comprehensive foot care, sooner if problems. Not available 10/18/2020 12:32:14 01/28/2021 [id number] 1.) Office visit with DM foot exam [...] regular follow up evaluation by PCP and/or hot tamale worker. 6.) Return 3 months for DM check up and comprehensive foot care, sooner if problems. Not available 01/28/2021 15:01:30 02/18/2021 [id number] Warranty/Receipt New shoe break-in period Wear your [...] basis. [email or web address] Not available 10/18/2021 09:50:05 05/06/2021 [id number] 1.) Office visit with DM foot exam [...] regular follow up evaluation by PCP and/or hot tamale worker. 6.) Return 3 months for DM check up and comprehensive foot care, sooner if problems. Not available 05/07/2021 08:22:47 08/09/2021 [id number] dedo en martillo : instrucciones de cuidado [...] regular follow up evaluation by PCP and/or hot tamale worker. 6.) Return 3 months for DM check up and comprehensive foot care, sooner if problems. I am prescribin. 1 Left and 1 Right - [employer] Medley S325-1 Black, [employer] depth-inlay [...] Address Organization Details Recorded Time Diabetes mellitus 93556215 Active Min Rogers DPM [address] [place], [address], [facility] 5 12:50:43 Disorder o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 mellitus 446931231 Active 2017 Min Rogers DPM [address] [place], [address], [facility] 13:27:17 Overweight 121445374 Active 2019 Min Rogers DPM [address] [place], [address], [facility] 0 17:15:07 Uncontrolle d type 2 diabetes mellitus 706144758 Completed 01/21/2018 Min Rogers DPM [address], [place], [address] [place] [address] 7, [facility] 13:27:22 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 131165192 Active Min Rogers DPM [address], [place], [address] [place] [address] 7, [facility] 12:39:04 Ingrowing nail 075180439 Active Min Rogers DPM [address] [place], [address], [facility] 12:39:04 Edema 154741928 Active Min Rogers DPM [address] [place], [address], [facility] 13:32:56 Peripheral venous insufficien cy 65737411 Active Min Rogers DPM [address] [place], [address], [facility] 5 13:32:56 Pain in limb 88283380 Active Min Rogers DPM [address] [place], [address], [facility] - [facility] 12:39:04 Hammer toe 051358876 Active Min Rogers DPM [address] [place], [address], [facility] 12:50:43 Acquired cavus deformity of foot 63172194 Active Min Rogers DPM [address] [place], [address], [facility] - [facility] 12:50:43 Problem Notes None recorded. Procedures Surgical History Date Name Laterality Status Provider Name and Address Organization Details Recorded Time 1 Nail Debridement completed Min Rogers DPM [address] [place], [address], [facility] 08/09/2021 15:47:04 1 Nail Debridement completed Min Rogers DPM [address] [place], [address], [facility] 05/07/2021 08:22:47 1 Nail Debridement completed Min Rogers DPM [address] [place], [address], [facility] 01/28/2021 15:00:03 1 Nail Debridement completed Min Rogers DPM [address] [place], [address], [facility] 10/18/2020 12:32:14 0 Nail Debridement completed Min Rogers DPM [address] [place], [address], [facility] 07/16/2020 12:25:52 0 Nail Debridement completed Min Rogers DPM [address] [place], [address], [facility] 04/12/2020 11:12:51 0 Nail Debridement completed Min Rogers DPM [address] [place], [address], [facility] 01/26/2020 15:11:05 0 Nail Debridement completed Min Rogers DPM [address] [place], [address], [facility] 10/31/2019 09:07:59 9 Nail Debridement completed Min Rogers DPM [address] [place], [address], [facility] 08/26/2019 16:10:32 9 Cortisone Injection completed Min Rogers DPM [address] [place], [address], [facility] 06/09/2019 08:55:55 9 Nail Debridement completed Min Rogers DPM [address] [place], [address], [facility] 06/09/2019 09:15:28 9 Nail Debridement completed Min Rogers DPM [address] [place], [address], [facility] 03/10/2019 13:36:34 9 Nail Debridement completed Min Rogers DPM [address] [place], [address], [facility] 12/28/2018 09:42:50 9 Nail Debridement completed Min Rogers DPM [address] [place], [address], [facility] 10/19/2018 13:15:54 8 Cortisone Injection completed Min Rogers DPM [address] [place], [address], [facility] 07/29/2018 11:08:29 8 Nail Debridement completed Min Rogers DPM [address] [facility], [place], [address], [facility] 07/29/2018 13:09:03 8 Nail Debridement completed Min Rogers DPM [address] [facility], [place], [address], [facility] 05/13/2018 10:01:58 8 Nail Debridement completed Min Rogers DPM [address] [facility], [place], [address], [facility] 03/04/2018 09:31:43 8 Nail Debridement completed Min Rogers DPM [address] [place], [address], [facility] 11/26/2017 14:37:36 5 Nail Debridement completed Min Rogers DPM [address] [place], [address], [facility] 02/01/2015 12:39:04 5 Nail Debridement completed Min Rogers DPM [address] [facility], [place], [address], [facility] 10/31/2014 13:32:39 4 Nail Debridement completed Min Rogers DPM [address] [place], [address], [facility] 08/03/2014 10:36:36 4 Nail Debridement completed Min Rogers DPM [address] [facility], [place], [address], [facility] 05/11/2014 10:36:07 4 Nail Debridement completed Min Rogers DPM [address] [place], [address], [facility] 02/20/2014 09:20:10 4 Nail Debridement completed Gregor Mckeon [place] - [facility] 12/07/2013 17:55:59 3 Nail Debridement completed [facility] 08/15/2013 18:15:52 3 Nail Debridement completed Min Rogers DPM [address] [place], [address], [facility] 05/08/2013 13:57:00 3 Nail Debridement completed Min Rogers DPM [address] [place], [address], [facility] 02/03/2013 13:55:58 3 Nail Debridement completed Min Rogers DPM [address] [place], [address], [facility] 11/15/2012 12:39:57 Imaging Results None recorded. Procedure Notes None recorded. Medical Equipment None Reported. Allergies Allergen ID Allergen Name Allergen Category Reaction Reaction Severity Criticality Documentation Date Start Date Code Code System Note Provider Name and Address Organization Details Recorded Time 921 Product containin g penicilli n (product) medicatio n Not available Not available Not available 10/14/2012 89620 8001 SNOMED [facility] 3 15:13:05 Medications Name Sig [...] Available Not Available No t Available FreeStyle [place] Lite kit active Not Available Not Available [...] 157.48 cm Min Rogers, SEDRICKM [address] [place], [address], [place] [facility] 10/18/2020 11:14:48 Date Recorded Body height Provider Name an d Address Organization Details Last Updated DateTime 01/28/2021 157.48 cm Min Rogers, SEDRICKM [address] [place], [address], [place] [facility] 01/28/2021 14:38:33 Date Recorded Body height Provider Name an d Address Organization Details Last Updated DateTime 02/18/2021 157.48 cm Min Rogers, SEDRICKM [address] [place], [address], [place] [facility] 10/18/2021 09:42:13 Date Recorded Body height Provider Name an d Address Organization Details Last Updated DateTime 05/06/2021 157.48 cm Min Rogers, SEDRICKM [address] [place], [address], [place] [facility] 05/06/2021 16:15:17 Date Recorded Body height Provider Name an d Address Organization Details Last Updated DateTime 08/09/2021 157.48 cm Min Rogers, SEDRICKM [address] [place], [address], [place] [facility] 08/09/2021 15:31:11 Social History Question Answer Notes LastModified by Organizat ion Details LastModified Time Tobacco Smoking Status Never Smoker Not Available [employer] 07/06/2020 03:15:47 Are You Blind Or Do You Have Difficulty Seeing? No [id number] Information not available 07/06/2020 Are You Deaf Or Do You Have Serious Difficulty Hearing? No [id number] Information not available 07/06/2020 Which Illicit Or Recreational Drugs Have You Used? Never [id number] Information not available 07/06/2020 Marital Status [email or web address] Informat[employer] n not available 10/17/2012 What Was The Date Of Your Most Recent Tobacco Screening? 12/28/2018 [id number] Information not available 07/06/2020 Do You Have Difficulty Walking Or Climbing Stairs? No [id number] Information not available 07/06/2020 Sex: Unknown Functional Status Question Answer Note LastModified by Organizat ion Details LastModified Time What is your level of alcohol consumption? None [id number] Information not available 07/06/2020 Do you have difficulty doing errands alone? No [id number] Information not available 07/06/2020 What is your occupation? Disabled - Mental Illness [id number] Information not available 07/06/2020 Do you have difficulty dressing or bathing? No [id number] Information not available 07/06/2020 Mental Status Question Answer Note LastModified by Organization D etails LastModified Time Do you have difficulty concentrating, remembering or making decisions? No [id number] Information no t available 07/06/2020 Family History [...] Code Diagnosis Note 1661 Min Rogers DPM [facility] [place] [address] [place] [address] 10/14/2012 15:09:24 10/18/2012 09:39:25 3202 Min Rogers DPM [facility] [address] [place] [address] 11/11/2012 13:38:31 11/15/2012 16:52:19 7753 Min Rogers [facility] [address] [place] [address] 02/03/2013 13:22:42 02/03/2013 14:21:55 9796 Min Rogers [facility] [address] [place] [address] 05/06/2013 13:22:19 05/06/2013 13:57:43 14589 Min Rogers Danny [facility] [address] [place] [address] 08/15/2013 10:36:55 08/15/2013 11:25:59 Uncontrolled type 2 diabetes mellitus 645118790 Ingrowing nail 669503094 Pain in limb 77694573 Onychomyco sis due to dermatophyte 940076237 Peripheral venous insufficiency 19185740 Edema 277775816 Acquired c avus deformity of foot 78186843 Hammer toe 119996275 23421 Min Rogers DPM [facility] [address] [place] [address] 10/05/2013 11:52:21 10/05/2013 12:01:29 Uncontrolled type 2 diabetes mellitus 894069138 Hammer toe 058981384 84646 [facility] [address] [place] [address] 12/07/2013 12:16:56 12/07/2013 12:42:09 Uncontrolled type 2 diabetes mellitus 632465391 Hammer toe 112710945 Onychomyco sis due to dermatophyte 796714328 Pain in limb 45660296 Ingrowing nail 714802179 44352 Min Rogers [facility] [address] [place] [address] 02/16/2014 09:54:34 02/16/2014 10:32:43 Onychomycosis due to dermatophyte 027866686 Ingrowing nail 370472823 Pain in limb 99822787 Diabetes mellitus 40865106 Peripheral venous insufficiency 18751704 Edema 043140269 Acquired c avus deformity of foot 42903111 Hammer toe 023921004 27976 Min Rogers DPM [facility] [address] [address] 05/11/2014 10:23:52 05/11/2014 10:24:21 Onychomycosis due to dermatophyte 924589440 Ingrowing nail 789999222 Pain in limb 29394145 Diabetes mellitus 60025427 Peripheral venous insufficiency 70935468 Edema 210617674 Acquired c avus deformity of foot 88523465 Hammer toe 939798336 00448 Min Rogers DPM [facility] [address] [address] 08/03/2014 09:27:24 08/03/2014 10:21:02 Onychomycosis due to dermatophyte 990965971 Ingrowing nail 010065339 Pain in limb 94758377 Diabetes mellitus 68547319 Peripheral venous insufficiency 55626992 Edema 552960132 Acquired c avus deformity of foot 01612365 Hammer toe 700115995 55691 Min Rogers DPM [facility] [address] [address] 10/27/2014 09:16:37 10/27/2014 10:30:34 Onychomycosis due to dermatophyte 169082052 Ingrowing nail 298192640 Pain in limb 91087845 Diabetes mellitus 75422131 Peripheral venous insufficiency 70178600 Edema 485117545 Acquired c avus deformity of foot 83561652 Hammer toe 620074695 34373 Min Rogers DPM [facility] [address] [address] 11/02/2014 13:10:07 11/02/2014 13:21:56 Hammer toe 477058655 Acquired c avus deformity of foot 99674166 Uncontroll ed type 2 diabetes mellitus 951001682 96366 Min Rogers DPM [facility] [address] [address] 11/13/2014 12:15:16 11/13/2014 12:33:38 Acquired cavus deformity of foot 37334125 Diabetes mellitus 91875098 Hammer toe 630689961 81090 Min Rogers DPM [facility] [address] [address] 01/18/2015 13:54:36 01/18/2015 14:06:52 Onychomycosis due to dermatophyte 500357197 Ingrowing nail 239386031 Pain in limb 96074522 Uncontroll ed type 2 diabetes mellitus 556398147 61679 Min Rogers DPM [facility] [address] [place] [address] 11/26/2017 10:25:50 11/26/2017 11:21:38 Overweight 003198634 E66.3 Ingrowing nail 936681514 L60.0 Pain in toe 359908363 M7 9.676 Disorder o 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 mellitus 011278327 E11.49 Hammer toe 042872913 M20 .41 M20.42 Onychomycosis 714188207 B35.1 64679 Min Rogers DPM [facility] [address] [place] [address] 01/21/2018 13:25:31 01/21/2018 13:28:43 Disorder o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 mellitus 386272310 E11.49 Hammer toe 113260243 M20 .41 M20.42 03845 Min Rogers DPM [facility] [address] [place] [address] 02/17/2018 11:45:01 02/17/2018 12:02:11 Disorder o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 mellitus 706726090 E11.49 Hammer toe 894857051 M20 .41 M20.42 90906 Min Rogers DPM [facility] [address] [place] [address] 03/04/2018 08:59:26 03/04/2018 09:00:37 Onychomycosis due to dermatophyte 353708603 B35.1 Ingrowing nail 331130251 L60.0 Pain in limb 95403383 M7 9.609 Uncontroll ed type 2 diabetes mellitus 743996911 E11.65 41827 Min Rogers DPM [facility] [address] [place] [address] 05/13/2018 09:31:40 05/13/2018 09:56:12 Ingrowing nail 245871156 L60.0 Pain in limb 57446035 M7 9.609 Uncontroll ed type 2 diabetes mellitus 645913822 E11.65 Onychomycosis 742698923 B35.1 Obese 229349223 E66.9 93680 Min Rogers DPM [facility] [address] [place] [address] 07/29/2018 11:05:10 07/29/2018 11:15:42 Arthritis of right subtalar joint 2661054532 7434053 M13.871 Pain of ri ght ankle joint 1713545722 4873006 M25.571 Onychomycosis 600417204 B35.1 Ingrowing nail 248291880 L60.0 Uncontroll ed type 2 diabetes mellitus 095440511 E11.65 Obese 827657111 E66.9 Plantar fasciitis 836714 003 M72.2 Pain in toe 733268201 M7 9.676 95782 Min Rogers DPM [facility] [address] [place] [address] 08/02/2018 09:02:54 08/02/2018 09:39:55 Foot pain 84711951 M79.671 Arthritis of right subtalar joint 5481301733 3181827 M13.871 Plantar fasciitis 630715 003 M72.2 Onychomycosis 848600073 B35.1 Ingrowing nail 067938932 L60.0 Pain in toe 705406028 M7 9.676 Uncontroll ed type 2 diabetes mellitus 472394181 E11.65 Obese 199686526 E66.9 41051 Min Rogers DPM [facility] [address] [place] [address] 08/10/2018 11:41:12 08/10/2018 12:40:42 Plantar fasciitis 684707226 M72.2 Foot pain 56958684 M79.6 71 M79.672 67287 Min Rogers DPM [facility] [address] [place] [address] 10/19/2018 11:14:44 10/19/2018 13:16:01 Onychomycosis 457554808 B35.1 Ingrowing nail 728006883 L60.0 Pain in limb 04710595 M7 9.609 Uncontroll ed type 2 diabetes mellitus 850475050 E11.65 Obese 506174693 E66.9 27498 Min Rogers DPM [facility] [address] [place] [address] 12/28/2018 08:27:54 12/28/2018 09:22:02 Onychomycosis 604164548 B35.1 Ingrowing nail 786285252 L60.0 Pain in limb 40480387 M7 9.609 Uncontroll ed type 2 diabetes mellitus 706464210 E11.65 Obese 593408604 E66.9 19533 Min Rogers DPM [facility] [address] [place] [address] 03/10/2019 11:30:47 03/10/2019 12:35:36 Onychomycosis 797654583 B35.1 Ingrowing nail 705950559 L60.0 Pain in limb 33269010 M7 9.609 Uncontroll ed type 2 diabetes mellitus 935423662 E11.65 Obese 729022975 E66.9 70176 Min Rogers DPM [facility] [address] [place] [address] 06/09/2019 08:31:13 06/09/2019 09:28:11 Onychomycosis 611040076 B35.1 Ingrowing nail 203891138 L60.0 Pain in limb 61940308 M7 9.609 Uncontroll ed type 2 diabetes mellitus 334164665 E11.65 Obese 182746968 E66.9 Osteoarthr itis of subtalar joint 441995213 M19.072 Foot pain 35895351 M79.6 72 64579 Min Rogers DPM [facility] [address] [place] [address] 08/26/2019 15:57:18 08/26/2019 16:06:24 Overweight 418461240 E66.3 Onychomycosis 391054867 B35.1 Ingrowing nail 301936302 L60.0 Uncontroll ed type 2 diabetes mellitus 452175905 E11.65 Pain in toe 101934739 M7 9.676 09850 Min Rogers DPM [facility] [address] [place] [address] 10/31/2019 08:53:06 10/31/2019 09:32:13 Onychomycosis 695541437 B35.1 Ingrowing nail 555890308 L60.0 Pain in toe 083043602 M7 9.676 Overweight 831861236 E66 .3 Disorder o 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 mellitus 867490095 E11.49 Hammer toe 456739203 M20 .41 M20.42 29876 SEDRICK Villavicencio [facility] [address] [place] [address] 12/19/2019 17:27:14 12/19/2019 17:36:09 Disorder o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 mellitus 913509302 E11.49 Hammer toe 566395938 M20 .41 M20.42 06470 Min Rogers DPM [facility] [address] [place] [address] 01/26/2020 13:22:34 01/26/2020 15:00:52 Onychomycosis 080291467 B35.1 Ingrowing nail 310174340 L60.0 Pain in toe 348771189 M7 9.676 Disorder o 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 mellitus 445668255 E11.49 Hammer toe 174887590 M20 .41 M20.42 Overweight 512515512 E66 .3 09846 Min Rogers DPM [facility] [address] [place] [address] 04/12/2020 11:04:10 04/12/2020 11:16:03 Onychomycosis 391473355 B35.1 Ingrowing nail 259542364 L60.0 Pain in toe 853991315 M7 9.676 Disorder o 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 mellitus 160027386 E11.49 Hammer toe 413596705 M20 .41 M20.42 Overweight 175430601 E66 .3 76669 Min Rogers DPM [facility] [address] [place] [address] 07/16/2020 12:08:06 07/16/2020 12:20:12 Onychomycosis 521444620 B35.1 Ingrowing nail 918525419 L60.0 Pain in toe 505664143 M7 9.676 Disorder o 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 mellitus 859371562 E11.49 Hammer toe 348111908 M20 .41 M20.42 Overweight 961973357 E66 .3 15112 SEDRICK Villavicencio [facility] [address] [place] [address] 10/18/2020 11:06:15 10/18/2020 11:53:04 Onychomycosis 869960381 B35.1 Ingrowing nail 074717497 L60.0 Pain in toe 938950202 M7 9.676 Disorder o 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 mellitus 324099813 E11.49 Hammer toe 917320069 M20 .41 M20.42 Overweight 279141760 E66 .3 39420 SEDRICK Villavicencio [facility] [address] [place] [address] 7 01/28/2021 14:36:07 01/28/2021 14:49:01 Onychomycosis 998732770 B35.1 Ingrowing nail 149976699 L60.0 Pain in toe 272907366 M7 9.676 Disorder o 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 mellitus 803875855 E11.49 Obesity 793756736 E66.9 54107 Min Rogers DPM [facility] [address] [place] [address] 7 05/06/2021 16:07:24 05/06/2021 16:26:10 Onychomycosis 023231280 B35.1 Ingrowing nail 980917070 L60.0 Pain in toe 076105565 M7 9.676 Disorder o 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 mellitus 519189321 E11.49 Obesity 332374356 E66.9 35143 Min Rogers DPM [facility] [address] [place] [address] 7 08/09/2021 15:26:42 08/09/2021 15:31:37 Foot callus 219150546 L84 Onychomycosis 232910206 B35.1 Ingrowing nail 606803308 L60.0 Pain in toe 577652729 M7 9.676 Disorder o 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 mellitus 143090150 E11.49 Obesity 627912798 E66.9 Hammer toe 223012107 M20 .41 M20.42 51693 Min Rogers DPM [facility] [address] [place] [address] 10/18/2021 09:41:46 10/18/2021 09:52:37 Disorder o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 mellitus 471447205 E11.49 Hammer toe 562554786 M20 .41 M20.42 Health Concerns Section Related Observation LastModified by Organization Detai ls LastModified Time None Recorded Concern Status LastModified by Organization Details LastModified Time None Recorded Advance Directives Directive None Recorded Payers Insurance Date Sequence Insurance Name Policy Number Policy Orozco Covered Member ID Orozco Member ID Guarantor Name 10/18/2021 1 [place] Bessie Alfonso [id number] Bessie Alfonso 06/09/2019 1 [facility] (MEDICAID HMO) [id number] Bessie Alfonso [id number] Bessie Alfonso 06/09/2019 1 [place] Bessie Lafonso [id number] Bessie Alfonso 10/18/2021 1 [employer] [facility]IOR TO 2022 (MEDICAID REPLACEMENT - HMO) [facility] [id number] Bessie Alfonso Notes Date Note Type Note [...] coronavirus COVID-19 disease. Min Rogers DPM [address] [place], [id number], [facility] 10/18/2020 12:33:21 01/28/2021 text/html Bessie [...] disease (fully vaccinated). Min Rogers DPM [address] [place], [address], [facility] 01/28/2021 15:02:07 05/06/2021 text/html Bessie [...] disease (fully vaccinated). Min Rogers DPM [address] [place], [id number], [facility] [employer] 05/07/2021 08:23:15 08/09/2021 text/html Bessie presents f [...] coronavirus COVID-19 disease (vaccinated). Min Rogers DPM [address] [place], [address], [facility] 08/19/2021 12:11:02 OBGyn Episode No OBEpisode recorded.
== END 2025-03-28 12:41 | disposition home or self-care (01) ==
LOC: HO.US 12:40
PROVIDERS: PCP Internal Medicine; Visit Provider Obstetrics & Gynecology
DX: R10.2 Pelvic and perineal pain (principal)
CPT/HCPCS: 76830; 76856

== ENCOUNTER → 2025-03-28 12:45 | Outpatient (BNV) | payer OTHER, SELFPAY | PROVIDERS: PCP Internal Medicine; Visit Provider Radiology Diagnostic Radiology | DX: R10.2 Pelvic and perineal pain (principal) | CPT/HCPCS: 76830 ==

== ENCOUNTER 2025-03-31 14:06 | Outpatient (AMB) | payer OTHER, SELFPAY ==
--- OUTSIDE RECORDS SUMMARY | 2025-03-31 14:10 | XMS_ITS | Data Portability ---
Author Organization [facility], autoContract Address [address] [place] [address] Assessment No assessment recorded. Plan of Treatment Reminders Order Date Submit Date Provider Last Modified By Organization Details Last Modified Time Details Appointments None recorded. Lab None recorded. Referral None recorded. Procedures None recorded. Surgeries None recorded. Imaging None recorded. Medication Orders ammonium lactate 12 % lotion 2020 021 [facility][id number], [address] [facility], [place], [address], 15:37:21 Patient TargetsNo targets recorded. Patient Instructions Encounter Date Encounter Id Patient Instructions Last Modified By Organization Details Last Modified Time 10/18/2020 [id number] 1.) Office visit with DM foot exam [...] regular follow up evaluation by PCP and/or crab backer. 6.) Return 3 months for DM check up and comprehensive foot care, sooner if problems. Not available 10/18/2020 12:32:14 01/28/2021 [id number] 1.) Office visit with DM foot exam [...] regular follow up evaluation by PCP and/or crab backer. 6.) Return 3 months for DM check up and comprehensive foot care, sooner if problems. Not available 01/28/2021 15:01:30 02/18/2021 [id number] Warranty/Receipt New shoe break-in period Wear your [...] basis. [email or web address] Not available 10/18/2021 09:50:05 05/06/2021 [id number] 1.) Office visit with DM foot exam [...] regular follow up evaluation by PCP and/or crab backer. 6.) Return 3 months for DM check up and comprehensive foot care, sooner if problems. Not available 05/07/2021 08:22:47 08/09/2021 [id number] dedo en martillo : instrucciones de cuidado [...] regular follow up evaluation by PCP and/or crab backer. 6.) Return 3 months for DM check up and comprehensive foot care, sooner if problems. I am prescribin. 1 Left and 1 Right - Opeepl Medley S325-1 Black, Hook & Loop depth-inlay [...] Address Organization Details Recorded Time Diabetes mellitus 77131383 Active Min Rogers DPM [address] [place], [address], [facility] [place] Vasco 5 12:50:43 Disorder o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 mellitus 319708677 Active 2017 Min Rogers DPM [address] [place], [address], [facility] [place]co 8 13:27:17 Overweight 734467503 Active 2019 Min Rogers DPM [address] [place], [address], [facility] [place]co 0 17:15:07 Uncontrolle d type 2 diabetes mellitus 637458304 Completed 01/21/2018 Min Rogers DPM [address] [place], [address], [facility] [place]co 8 13:27:22 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 508340053 Active Min Rogers DPM [address], [place], [address] [place] [address] 7, [facility] [place]co 5 12:39:04 Ingrowing nail 322821991 Active Min Rogers DPM [address] [place], [address], [facility] [place]co 5 12:39:04 Edema 853932568 Active Min Rogers DPM [address] [place], [address], [facility] [place]co 5 13:32:56 Peripheral venous insufficien cy 25238676 Active Min Rogers DPM [address] [place], [address], [facility] Marco [place]co 5 13:32:56 Pain in limb 72938098 Active Min Rogers DPM [address] [place], [address], [facility] [place]co 5 12:39:04 Hammer toe 064770354 Active Min Rogers DPM [address] [place], [address], [facility] [place]co 5 12:50:43 Acquired cavus deformity of foot 97180795 Active Min Rogers DPM [address] [place], [address], [facility] [place]co 5 12:50:43 Problem Notes None recorded. Procedures Surgical History Date Name Laterality Status Provider Name and Address Organization Details Recorded Time 1 Nail Debridement completed Min Rogers DPM [address] [place], [address], [facility] [place]co 08/09/2021 15:47:04 1 Nail Debridement completed Min Rogers DPM [address] [place], [address], [facility] [place]co 05/07/2021 08:22:47 1 Nail Debridement completed Min Rogers DPM [address] [place], [address], [facility] [place]co 01/28/2021 15:00:03 1 Nail Debridement completed Min Rogers DPM [address] [place], [address], [facility] [place]co 10/18/2020 12:32:14 0 Nail Debridement completed Min Rogers DPM [address] [place], [address], [facility] [place] 07/16/2020 12:25:52 0 Nail Debridement completed Min Rogers DPM [address] [place], [address], [facility] [place]co 04/12/2020 11:12:51 0 Nail Debridement completed Min Rogers DPM [address] [place], [address], [facility] 01/26/2020 15:11:05 0 Nail Debridement completed Min Rogers DPM [address] [place], [address], [facility] 10/31/2019 09:07:59 9 Nail Debridement completed Min Rogers DPM [address] [place], [address], [facility] 08/26/2019 16:10:32 9 Cortisone Injection completed Min Rogers DPM [address] [place], [address], [facility]co 06/09/2019 08:55:55 9 Nail Debridement completed Min Rogers DPM [address] [place], [address], [facility] 06/09/2019 09:15:28 9 Nail Debridement completed iMn Rogers DPM [address] [place], [address], [facility] [place] 03/10/2019 13:36:34 9 Nail Debridement completed Min Rogers DPM [address] [place], [address], [facility]co 12/28/2018 09:42:50 9 Nail Debridement completed Min Rogers DPM [address] [place], [address], [facility]co 10/19/2018 13:15:54 8 Cortisone Injection completed Min Rogers DPM [address] [place], [address], [facility] 07/29/2018 11:08:29 8 Nail Debridement completed Min Rogers DPM [address] [facility], [place], [address], [facility] 07/29/2018 13:09:03 8 Nail Debridement completed Min Rogers DPM [address] [facility], [place], [address], [facility] - [facility] 05/13/2018 10:01:58 8 Nail Debridement completed Min Rogers DPM [address] [facility], [place], [address], [facility] 03/04/2018 09:31:43 8 Nail Debridement completed Min Rogers DPM [address] [place], [address], [facility] 11/26/2017 14:37:36 5 Nail Debridement completed Min Rogers DPM [address] [place], [address], [facility]co 02/01/2015 12:39:04 5 Nail Debridement completed Min Rogers DPM [address] [facility], [place], [address], [facility] 10/31/2014 13:32:39 4 Nail Debridement completed Min Rogers DPM [address] [place], [address], [facility] 08/03/2014 10:36:36 4 Nail Debridement completed Min Rogers DPM [address] [facility], [place], [address], [facility] 05/11/2014 10:36:07 4 Nail Debridement completed Min Rogers DPM [address] [place], [address], [facility] 02/20/2014 09:20:10 4 Nail Debridement completed Gregor Mckeon PA - [facility] 12/07/2013 17:55:59 3 Nail Debridement completed Gregor Mckeon [facility] 08/15/2013 18:15:52 3 Nail Debridement completed Min Rogers DPM [address] [place], [address], [facility] 05/08/2013 13:57:00 3 Nail Debridement completed Min Rogers DPM [address] [place], [address], [facility] 02/03/2013 13:55:58 3 Nail Debridement completed Min Rogers DPM [address] [place], [address], [facility] 11/15/2012 12:39:57 Imaging Results None recorded. Procedure Notes None recorded. Medical Equipment None Reported. Allergies Allergen ID Allergen Name Allergen Category Reaction Reaction Severity Criticality Documentation Date Start Date Code Code System Note Provider Name and Address Organization Details Recorded Time 921 Product containin g penicilli n (product) medicatio n Not available Not available Not available 10/14/2012 27985 8001 SNOMED [facility] 3 15:13:05 Medications Name Sig [...] Available Not Available No t Available FreeStyle [place] Lite kit active Not Available Not Available [...] 157.48 cm Min Rogers, SEDRICKM [address] [place], [address], [place] [employer] 10/18/2020 11:14:48 Date Recorded Body height Provider Name an d Address Organization Details Last Updated DateTime 01/28/2021 157.48 cm Min Rogers, SEDRICKM [address] [place], [address], [place] [employer] 01/28/2021 14:38:33 Date Recorded Body height Provider Name an d Address Organization Details Last Updated DateTime 02/18/2021 157.48 cm Min Rogers, SEDRICKM [address] [place], [address], [place] [employer] [facility]co 10/18/2021 09:42:13 Date Recorded Body height Provider Name an d Address Organization Details Last Updated DateTime 05/06/2021 157.48 cm Min Rogers, SEDRICKM [address] [place], [address], [place] [employer] [facility]co 05/06/2021 16:15:17 Date Recorded Body height Provider Name an d Address Organization Details Last Updated DateTime 08/09/2021 157.48 cm Min Rogers, SEDRICKM [address] [place], [address], [place] [facility] [place]co 08/09/2021 15:31:11 Social History Question Answer Notes LastModified by Organizat ion Details LastModified Time Tobacco Smoking Status Never Smoker Not Available [employer] 07/06/2020 03:15:47 Are You Blind Or Do You Have Difficulty Seeing? No [id number] Information not available 07/06/2020 Are You Deaf Or Do You Have Serious Difficulty Hearing? No [id number] Information not available 07/06/2020 Which Illicit Or Recreational Drugs Have You Used? Never [id number] Information not available 07/06/2020 Marital Status [email or web address] Informatio n not available 10/17/2012 What Was The Date Of Your Most Recent Tobacco Screening? 12/28/2018 [id number] Information not available 07/06/2020 Do You Have Difficulty Walking Or Climbing Stairs? No [id number] Information not available 07/06/2020 Sex: Unknown Functional Status Question Answer Note LastModified by Organizat ion Details LastModified Time What is your level of alcohol consumption? None [id number] Information not available 07/06/2020 Do you have difficulty doing errands alone? No [id number] Information not available 07/06/2020 What is your occupation? Disabled - Mental Illness [id number] Information not available 07/06/2020 Do you have difficulty dressing or bathing? No [id number] Information not available 07/06/2020 Mental Status Question Answer Note LastModified by Organization D etails LastModified Time Do you have difficulty concentrating, remembering or making decisions? No [id number] Information no t available 07/06/2020 Family History Nothing Reported. Medical History Condition Response Obesity Y Edema Y Venous Insufficiency Y Diabetes II Y High Cholesterol Y Foot Deformity Y Mental Illness Y Hypertension Y Numbness Tingling Y Gynecological HistoryNo gynecological history recorded. Obstetrics History GPAL:G 0 P 0 0 0 0 Past Encounters Encounter ID Performer Location Encounter Start Date Encounter Closed Date Diagnosis/Indication Diagnosis SNOMED-CT Code Diagnosis ICD10 Code Diagnosis Note [id number] Min Rogers DPM [facility] [place] [address] [place] [address] 10/14/2012 15:09:24 10/18/2012 09:39:25 [id number] Min Rogers DPM [facility] [address] [place] [address] 11/11/2012 13:38:31 11/15/2012 16:52:19 [id number] Min Rogres [facility] [address] [place] [address] 02/03/2013 13:22:42 02/03/2013 14:21:55 [id number] Min Rogers [facility] [address] [place] [address] 05/06/2013 13:22:19 05/06/2013 13:57:43 [id number] Min Rogers Danny [facility] [address] [place] [address] 08/15/2013 10:36:55 08/15/2013 11:25:59 Uncontrolled type 2 diabetes mellitus 931816477 Ingrowing nail 383151671 Pain in limb 12858688 Onychomyco sis due to dermatophyte 292132413 Peripheral venous insufficiency 42226553 Edema 657408294 Acquired c avus deformity of foot 82376900 Hammer toe 293154308 [id number] Min Rogers DPM [facility] [address] [place] [address] 10/05/2013 11:52:21 10/05/2013 12:01:29 Uncontrolled type 2 diabetes mellitus 748323925 Hammer toe 273787142 [id number] SEDRICK [facility] [address] [place] [address] 12/07/2013 12:16:56 12/07/2013 12:42:09 Uncontrolled type 2 diabetes mellitus 476398020 Hammer toe 058555653 Onychomyco sis due to dermatophyte 265097797 Pain in limb 98681111 Ingrowing nail 938608109 [id number] Min Rogers [facility] [address] [place] [address] 02/16/2014 09:54:34 02/16/2014 10:32:43 Onychomycosis due to dermatophyte 134090556 Ingrowing nail 808996451 Pain in limb 71838944 Diabetes mellitus 43551754 Peripheral venous insufficiency 15257350 Edema 130202704 Acquired c avus deformity of foot 64820902 Hammer toe 945152333 [id number] Min Rogers DPM [facility] [address] [address] 05/11/2014 10:23:52 05/11/2014 10:24:21 Onychomycosis due to dermatophyte 171696697 Ingrowing nail 869151903 Pain in limb 35229506 Diabetes mellitus 44698391 Peripheral venous insufficiency 68909649 Edema 802029009 Acquired c avus deformity of foot 20479029 Hammer toe 940730353 [id number] Min Rogers DPM [facility] [address] [address] 08/03/2014 09:27:24 08/03/2014 10:21:02 Onychomycosis due to dermatophyte 645497681 Ingrowing nail 783703867 Pain in limb 29308239 Diabetes mellitus 72728589 Peripheral venous insufficiency 79831168 Edema 391456446 Acquired c avus deformity of foot 09132715 Hammer toe 752625363 [id number] Min Rogers DPM [facility] [address] [address] 10/27/2014 09:16:37 10/27/2014 10:30:34 Onychomycosis due to dermatophyte 988393513 Ingrowing nail 888104538 Pain in limb 47890772 Diabetes mellitus 43073819 Peripheral venous insufficiency 42280401 Edema 730552108 Acquired c avus deformity of foot 83481908 Hammer toe 254774834 [id number] Min Rogers DPM [facility] [address] [address] 11/02/2014 13:10:07 11/02/2014 13:21:56 Hammer toe 981546519 Acquired c avus deformity of foot 04791491 Uncontroll ed type 2 diabetes mellitus 188921719 [id number] Min Rogers DPM [facility] [address] [address] 11/13/2014 12:15:16 11/13/2014 12:33:38 Acquired cavus deformity of foot 62044401 Diabetes mellitus 33086571 Hammer toe 859089798 [id number] Min Rogers DPM [facility] [address] [address] 01/18/2015 13:54:36 01/18/2015 14:06:52 Onychomycosis due to dermatophyte 029659775 Ingrowing nail 199355018 Pain in limb 83970216 Uncontroll ed type 2 diabetes mellitus 088955981 [id number] Min Rogers DPM [facility] [place] [address] [place] [address] 11/26/2017 10:25:50 11/26/2017 11:21:38 Overweight 131269788 E66.3 Ingrowing nail 015971808 L60.0 Pain in toe 727470150 M7 9.676 Disorder o 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 mellitus 947194555 E11.49 Hammer toe 542222048 M20 .41 M20.42 Onychomycosis 902018008 B35.1 [id number] Min Rogers DPM [facility] [place] [address] [place] [address] 01/21/2018 13:25:31 01/21/2018 13:28:43 Disorder o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 mellitus 490323955 E11.49 Hammer toe 553404152 M20 .41 M20.42 [id number] Min Rogers DPM [facility] [place] [address] [place] [address] 02/17/2018 11:45:01 02/17/2018 12:02:11 Disorder o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 mellitus 659541395 E11.49 Hammer toe 999339628 M20 .41 M20.42 [id number] Min Rogers DPM [facility] [address] [place] [address] 03/04/2018 08:59:26 03/04/2018 09:00:37 Onychomycosis due to dermatophyte 052395999 B35.1 Ingrowing nail 020116028 L60.0 Pain in limb 37075559 M7 9.609 Uncontroll ed type 2 diabetes mellitus 836700726 E11.65 [id number] Min Rogers DPM [facility] [address] [place] [address] 05/13/2018 09:31:40 05/13/2018 09:56:12 Ingrowing nail 872651232 L60.0 Pain in limb 69662341 M7 9.609 Uncontroll ed type 2 diabetes mellitus 413457651 E11.65 Onychomycosis 180151559 B35.1 Obese 446502827 E66.9 [id number] Min Rogers DPM [facility] [place] [address] [place] [address] 07/29/2018 11:05:10 07/29/2018 11:15:42 Arthritis of right subtalar joint 0590281726 4916589 M13.871 Pain of ri ght ankle joint 2467973042 8027925 M25.571 Onychomycosis 112401335 B35.1 Ingrowing nail 935272580 L60.0 Uncontroll ed type 2 diabetes mellitus 837046559 E11.65 Obese 779060732 E66.9 Plantar fasciitis 773920 003 M72.2 Pain in toe 565953968 M7 9.676 [id number] Min Rogers DPM [facility] [place] [address] [place] [address] 08/02/2018 09:02:54 08/02/2018 09:39:55 Foot pain 75268307 M79.671 Arthritis of right subtalar joint 6431660652 1737523 M13.871 Plantar fasciitis 360337 003 M72.2 Onychomycosis 452310130 B35.1 Ingrowing nail 381274026 L60.0 Pain in toe 897008459 M7 9.676 Uncontroll ed type 2 diabetes mellitus 145701796 E11.65 Obese 276381902 E66.9 [id number] Min Rogers DPM [facility] [place] [address] [place] [address] 7 08/10/2018 11:41:12 08/10/2018 12:40:42 Plantar fasciitis 822266362 M72.2 Foot pain 58011798 M79.6 71 M79.672 [id number] Min Rogers DPM [facility] [place] [address] [place] [address] 7 10/19/2018 11:14:44 10/19/2018 13:16:01 Onychomycosis 923714366 B35.1 Ingrowing nail 300031558 L60.0 Pain in limb 90848605 M7 9.609 Uncontroll ed type 2 diabetes mellitus 444171768 E11.65 Obese 277130049 E66.9 [id number] Min Rogers DPM [facility] [place] [address] [place] [address] 7 12/28/2018 08:27:54 12/28/2018 09:22:02 Onychomycosis 303695980 B35.1 Ingrowing nail 260394089 L60.0 Pain in limb 92497245 M7 9.609 Uncontroll ed type 2 diabetes mellitus 347366212 E11.65 Obese 360204267 E66.9 [id number] Min Rogers DPM [facility] [place] [address] [place] [address] 7 03/10/2019 11:30:47 03/10/2019 12:35:36 Onychomycosis 727826138 B35.1 Ingrowing nail 389096603 L60.0 Pain in limb 17347019 M7 9.609 Uncontroll ed type 2 diabetes mellitus 933540692 E11.65 Obese 140182675 E66.9 [id number] Min Rogers DPM [facility] [place] [address] [place] [address] 06/09/2019 08:31:13 06/09/2019 09:28:11 Onychomycosis 774751963 B35.1 Ingrowing nail 782573591 L60.0 Pain in limb 09914242 M7 9.609 Uncontroll ed type 2 diabetes mellitus 441210532 E11.65 Obese 680781358 E66.9 Osteoarthr itis of subtalar joint 403241852 M19.072 Foot pain 08761746 M79.6 72 [id number] Min Rogers DPM [facility] [place] [address] [place] [address] 7 08/26/2019 15:57:18 08/26/2019 16:06:24 Overweight 555214223 E66.3 Onychomycosis 612477093 B35.1 Ingrowing nail 363122943 L60.0 Uncontroll ed type 2 diabetes mellitus 821889735 E11.65 Pain in toe 180294780 M7 9.676 [id number] Min Rogers DPM [facility] [place] [address] [place] [address] 7 10/31/2019 08:53:06 10/31/2019 09:32:13 Onychomycosis 838546572 B35.1 Ingrowing nail 527763052 L60.0 Pain in toe 461428384 M7 9.676 Overweight 866746565 E66 .3 Disorder o 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 mellitus 076202693 E11.49 Hammer toe 512319347 M20 .41 M20.42 [id number] SEDRICK Villavicencio [facility] [place] [address] [place] [address] 7 12/19/2019 17:27:14 12/19/2019 17:36:09 Disorder o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 mellitus 152332146 E11.49 Hammer toe 641908973 M20 .41 M20.42 [id number] Min Rogers DPM [facility] [place] [address] [place] [address] 7 01/26/2020 13:22:34 01/26/2020 15:00:52 Onychomycosis 274832499 B35.1 Ingrowing nail 367411202 L60.0 Pain in toe 698285854 M7 9.676 Disorder o 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 mellitus 071344641 E11.49 Hammer toe 168242158 M20 .41 M20.42 Overweight 349493674 E66 .3 [id number] Min Rogers DPM [facility] [place] [address] [place] [address] 7 04/12/2020 11:04:10 04/12/2020 11:16:03 Onychomycosis 074652762 B35.1 Ingrowing nail 229320837 L60.0 Pain in toe 174715739 M7 9.676 Disorder o 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 mellitus 670123086 E11.49 Hammer toe 422865089 M20 .41 M20.42 Overweight 060986653 E66 .3 [id number] Min Rogers DPM [facility] [place] [address] [place] [address] 7 07/16/2020 12:08:06 07/16/2020 12:20:12 Onychomycosis 943514106 B35.1 Ingrowing nail 069260278 L60.0 Pain in toe 080175041 M7 9.676 Disorder o 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 mellitus 888532334 E11.49 Hammer toe 340513174 M20 .41 M20.42 Overweight 305467312 E66 .3 [id number] SEDRICK Villavicencio [facility] [place] [address] [place] [address] 7 10/18/2020 11:06:15 10/18/2020 11:53:04 Onychomycosis 699003506 B35.1 Ingrowing nail 821152979 L60.0 Pain in toe 694402614 M7 9.676 Disorder o 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 mellitus 001960923 E11.49 Hammer toe 527295639 M20 .41 M20.42 Overweight 841581553 E66 .3 [id number] SEDRICK Villavicencio [facility] [place] [address] [place] [address]51[address] 7 01/28/2021 14:36:07 01/28/2021 14:49:01 Onychomycosis 745740272 B35.1 Ingrowing nail 740511681 L60.0 Pain in toe 085244487 M7 9.676 Disorder o 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 mellitus 499374058 E11.49 Obesity 136177722 E66.9 [id number] Min Rogers DPM [facility] [place] [address] [place] [address] 7 05/06/2021 16:07:24 05/06/2021 16:26:10 Onychomycosis 793521975 B35.1 Ingrowing nail 605326034 L60.0 Pain in toe 136146479 M7 9.676 Disorder o 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 mellitus 572138779 E11.49 Obesity 996894456 E66.9 [id number] Min Rogers DPM [facility] [place] [address] [place] [address]46[address] 7 08/09/2021 15:26:42 08/09/2021 15:31:37 Foot callus 790995400 L84 Onychomycosis 937870979 B35.1 Ingrowing nail 837372327 L60.0 Pain in toe 220002751 M7 9.676 Disorder o 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 mellitus 893343765 E11.49 Obesity 072874565 E66.9 Hammer toe 712796543 M20 .41 M20.42 [id number] Min Rogers DPM [facility] [address] [place] [address] 10/18/2021 09:41:46 10/18/2021 09:52:37 Disorder o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 mellitus [id number] E11.49 Hammer toe [id number] M20 .41 M20.42 Health Concerns Section Related Observation LastModified by Organization Detai ls LastModified Time None Recorded Concern Status LastModified by Organization Details LastModified Time None Recorded Advance Directives Directive None Recorded Payers Insurance Date Sequence Insurance Name Policy Number Policy Orozco Covered Member ID Orozco Member ID Guarantor Name 10/18/2021 1 [place] Bessie Alfonso [id number] Bessie Alfonso 06/09/2019 1 [facility] (MEDICAID HMO) [id number] Bessie Alfonso [id number] Bessie Alfonso 06/09/2019 1 [place] Bessie Alfonso [id number] Bessie Alfonso 10/18/2021 1 [facility] - DOS PRIOR TO 2022 (MEDICAID REPLACEMENT - HMO) [facility] [id number] Bessie Alfonso Notes Date Note Type Note [...] coronavirus COVID-19 disease. Min Rogers DPM [address] [place], [address], [facility] 10/18/2020 12:33:21 01/28/2021 text/html Bessie [...] disease (fully vaccinated). Min Rogers DPM [address] [place], [address], [facility] 01/28/2021 15:02:07 05/06/2021 text/html Bessie [...] disease (fully vaccinated). Min Rogers DPM [address] [place], [address], [facility] Marco Vasco 05/07/2021 08:23:15 08/09/2021 text/html Bessie presents f [...] coronavirus COVID-19 disease (vaccinated). Min Rogers DPM [address] [place], [address], [facility] 08/19/2021 12:11:02 OBGyn Episode No OBEpisode recorded.
--- OUTSIDE RECORDS SUMMARY | 2025-03-31 14:10 | XMS_ITS | Clinical Summary ---
Author Organization [address] [facility] Address [address] [place] [address] Phone Care Team Providers Care Gravure Press Operator Name Role Phone Evelia Donald MD Primary Care Provider Allergies Active Allergy Reactions Criticality Noted Date [...] 10/04/2021 Long-term use of high-risk medication 10/04/2021 detention current use of insulin ([facility] V24, [place] V28) 10/04/2021 Lactic acidosis 10/04/2021 Right-sided chest wall pain 10/04/2021 Recurrent falls 10/04/2021 Pyelonephritis 10/04/2021 Obesity 10/04/2021 Sarcoidosis 10/04/2021 Schizoaffective disorder, de pressive type with good prognostic features ([facility] V24, [facility] V28) 10/04/2021 Sinusitis 10/04/2021 Encounter for immunization 10/04/2021 Tremor 10/04/2021 Altered mental state 08/17/2021 Abdominal pain 08/17/2021 DM type 2 (diabetes mellitus , type 2) ([facility] V24, [facility] V28) 05/21/2021 Overview (10/04/2021): x 15 years Necrotizing soft tissue infection 05/18/2021 Sacroiliac pain 11/28/2020 Lumbar facet arthropathy 08/29/2020 DDD (degenerative disc disease), lumbosacral Gastritis 09/28/2018 Acute psychosis ([facility] V24, [facility] V28) 04/23 Anxiety 04/23/2015 Impetigo 04/23/2015 Esotropia of left eye 06/04/2011 Rotary nystagmus 06/04/2011 Strabismic amblyopia 06/04/2011 Hyperthyroidism 02/19/2011 Mixed hyperlipidemia 02/19/2011 Primary open-angle glaucoma(365.11) 08/22/2010 Overview (12/20/2021): Replacing diagnoses that were inactivated after the 12/20/21 IMO import Senile nuclear sclerosis 08/22/2010 Encounters Date Type Department Care Team Description 02/09/2025 10:45 AM EDT Office Visit Orthopedic Surgery - [address] [phone] Zeyad Wlalace, DPM Lipodermatosclerosis of both lower extremities due to varicose veins (Primary Dx); Peripheral venous insufficiency; Tinea unguium; Diabetic mononeuropathy simplex ([facility] V24, [facility] V28); Type II diabetes mellitus with peripheral circulatory disorder ([facility] V24, [facility] V28); Metatarsalgia of both feet; [...] Medical History Medical History Date Comments Schizophrenia ([facility], [facility] V28) Diabetes mellitus ([facility] V24, [facility] V28) Disease of thyroid gland Depression Insomnia Anxiety DDD (degenerative disc disease), cervical Psychosis ([facility] V24, [facility] V28) High blood cholesterol level Social History [...] AM EDT Office Visit Orthopedic Surgery - [place] [address] [facility] [address] [place] [id number] Zeyad Wallace, DPDanny [address] [address] Health Maintenance Due Date Last Done Comments [...] 10/04/2021 9:58 PM EST [facility] Potassium 3.8 3.6 - 5.1 mmol/L LAB CHEMISTRY METHOD 10/04/2021 9:58 PM EST [facility] Chloride 98 98 - 107 mmol/L LAB CHEMISTRY METHOD 10/04/2021 9:58 PM EST [facility] CO2 25 22 - 32 mmol/L LAB CHEMISTRY METHOD 10/04/2021 9:58 PM EST [facility] Anion Gap 14 6 - 18 LAB CHEMISTRY METHOD 10/04/2021 9:58 PM EST [facility] Glucose 369(H) 70 - 99 mg/dL LAB CHEMISTRY METHOD 10/04/2021 9:58 PM [facility] BUN 21(H) 8 - 20 mg/dL LAB CHEMISTRY METHOD 10/04/2021 9:58 PM [facility] Creatinine 1.08 0.60 - 1.30 mg/dL LAB CHEMISTRY METHOD 10/04/2021 9:58 PM [facility] eGFR 55 mL/min/1. 73m2 LAB CHEMISTRY METHOD 10/04/2021 9:58 PM [facility] BUN/Creatinine Ratio 19.4 12.0 - 20.0 LAB CHEMISTRY METHOD 10/04/2021 9:58 PM [facility] Calcium 9.4 8.9 - 10.3 mg/dL LAB CHEMISTRY METHOD 10/04/2021 9:58 PM [facility] AST (SGOT) 8(L) 15 - 41 unit/L LAB CHEMISTRY METHOD 10/04/2021 9:58 PM [facility] ALT (SGPT) 14 7 - 52 unit/L LAB CHEMISTRY METHOD 10/04/2021 9:58 PM [facility] Alkaline Phosphatase 106(H) 32 - 91 unit/L LAB CHEMISTRY METHOD 10/04/2021 9:58 PM [facility] Total Protein 6.9 6.1 - 7.9 g/dL LAB CHEMISTRY METHOD 10/04/2021 9:58 PM [facility] Albumin 4.2 3.5 - 4.8 g/dL LAB CHEMISTRY METHOD 10/04/2021 9:58 PM [facility] Total Bilirubin 0.4 0.3 - 1.2 mg/dL LAB CHEMISTRY METHOD 10/04/2021 9:58 PM [facility] Blood Venous blood specimen / Unknown Venipuncture / Unknown 10/04/2021 8:28 PM EST 10/04/2021 8:33 PM EST Neeta Bae MD LAB BLOOD ORDERABLES Final Resu lt [facility]IS [facility] [address] [place] [address] * [place] MAMMO DIGITAL SCREENING BILAT (NB) [...] mammography views were obtained. Computer-aided detection utilizing [employer] Studios[employer] reader has been performed. BREAST COMPOSITION: There [...] Most Recently Relevant to Health Maintenance Insurance [facility] [employer] Member Subscriber Plan / Payer (Ef fective 2024-Present) Name:Bessie Bhatia Relation to Subscriber:Self Name:Bessie Bhatia Payer ID:[id number] Group ID:Not on file Type:Not on file Address: [place] [address] [place] [address] [place] [facility] Member Subscriber Plan / Payer (Ef fective 2024-Present) Name:Bessie Bhatia Relation to Subscriber:Self Name:Bessie Bhatia Payer ID:[id number] Group ID:Not on file Type:Not on file Address: [facility] [address] [place] [address] Advance Directives * Full Code - Default [...] currently active code status orders. Care Teams Gravure Press Operator Relationship Specialty Start Date End Date Evelia Donald MD [address] [place] [address] , [address] [facility] OTIS De Oliveira PCP - General Internal Medicine 08/30/24
--- NOTE | 2025-03-31 14:32 | MHC.PC.OV ---
Vital Signs 03/31/25 14:33 Height 5 ft 3 in Weight 168 lb 2 oz BMI 29.8 BP 146/86 H Blood Pressure Location Rt brachial Position Sitting Pulse 86 Pulse Source Pulse Oximeter Temp 97.3 F Temp Source Temporal Artery Scan Pulse Oximetry (%) 100 Oxygen Delivery Method Room Air Intake Visit Reasons: [facility] 03/24 SOB, Dizziness [employer] Instructor Required: Yes [employer] Instructor Language: Iraqi Allergies Penicillins Allergy (Intermediate, Verified 03/31/25 14:36) rash/swelling shellfish derived Allergy (Intermediate, Verified 03/31/25 14:36) Swelling, Hives Tobacco use date assessed: 01/27/25 Fall risk assessment: No Falls in past year Last assessed Fall Risk: 03/31/25 Dental Screening Dental Screen Date: 01/27/25 Did you have a dental visit in the last 12 months?: Yes Did you have a dental problem in the last 6 months where you did not have access to dental care?: No Was dental information given to patient?: Patient has dentist HPI [facility] 03/24 SOB, Dizziness HPI Details [id number] Reji greek interpret [facility] Medical History Atypical pneumonia Pneumonitis Nausea Abdominal pain Osteoporosis Hypertension History of blood clot in brain Hypercholesteremia HSV-2 (herpes simplex virus 2) infection Arthritis Rheumatic fever Schizophrenia GERD (gastroesophageal reflux disease) Depression HTN (hypertension) Hyperlipemia Diabetes Surgical History Hx of colonoscopy History of tubal ligation History of cystostomy History of 2 sections Family History Sister Age: 64 Osteoarthritis Mother Cancer of lymphatic and hematopoietic tissue, Onset Age: 83 COVID-19 Father FH: heart attack Brother FH: heart attack Other Diabetes HTN (hypertension) Mental health disorder Social History Household Members: None Household Members Other:: sister Housing: Apartment Do you presently have visiting nurse or other home services: No Alcohol intake: never Patient Tobacco Use Status: Never used Tobacco e-Cigarette/Vaping Use: Never Used Second Hand Smoke Exposure: No Advance Directives Date on File: 02/08/24 service: No Current occupational status: disabled Sexual orientation: Straight/Heterosexual Gender identity: Female Cognitive needs: Yes (walker) Hearing needs: No Vision needs: Yes (glasses) Female Reproductive History Menstrual Age of Menarche: 12 Questionnaire PHQ-9 Over the last 2 weeks, how often have you been bothered by any of the following problems? 1. Little interest or pleasure in doing things: more than half the days 2. Feeling down, depressed, or hopeless: more than half the days 3. Trouble falling or staying asleep, or sleeping too much: not at all 4. Feeling tired or having little energy: more than half the days 5. Poor appetite or overeating: more than half the days 6. Feeling bad about yourself - or that you are a failure or have let yourself or your family down: not at all 7. Trouble concentrating on things, such as reading the newspaper or watching television: not at all 8. Moving or speaking so slowly that other people could have noticed. Or the opposite - being so fidgety or restless that you have been moving around a lot more than usual: not at all 9. Thoughts that you would be better off or of hurting yourself in some way: not at all Total score: 8 Source: Developed by Drs. Rajendra Gutierrez, Juanita Junior, Tyson Mike and colleagues, with an educational otis from [employer]. Thrive Questionnaire Date Thrive assessed: 03/10/25 I am a: Patient What is your living situation today?: I have a steady place to live Within the past 12 months, did the food you bought not last and you didn't have the money to get more?: Never true Within the past 12 months, did you worry whether your food would run out before you got money to buy more?: Never true Do you have trouble paying for medicines?: No Do you have trouble getting transportation to medical appointments?: No Do you have trouble paying your heating and electricity bill?: No Do you have trouble taking care of your child, family member or friend?: No Do you have trouble with day-to-day activities such as bathing, preparing meals, shopping, managing finances, etc.?: No Are you currently unemployed and looking for a job?: No Are you interested in more education?: No Please select the resources that you would like help with: None Currently or been in a relationship where the following occur: No concerns reported THRIVE Score: 0 AUDIT C Alcohol Use Questionnaire (AUDIT-C) 1. How often do you have a drink containing alcohol?: Never 3. How often do you have six or more drinks on one occasion?: Never Total Score: 0 ÓSCAR-7 AMB Questionnaire ÓSCAR-7 Date ÓSCAR - 7 assessed: 01/27/25 Feeling nervous, anxious, or on edge: 0 = Not at all Not being able to stop or control worryin = Not at all Worrying too much about different things: 0 = Not at all Trouble relaxin = Not at all Being so restless that it is hard to sit still: 0 = Not at all Becoming easily annoyed or irritable: 0 = Not at all Feeling afraid as if something awful might happen: 0 = Not at all Total ÓSCAR-7 score (0-4 normal; 5-9 mild; 10-14 moderate; 15-21 severe): 0 Source: Developed by Drs. Rajendra Gutierrez, Juanita Junior, Tyson Mike and colleagues, with an educational otis from [employer]. Physical exam (Primary Care) Vital Signs: Last Vital Signs Temp 97.3 F 03/31/25 14:33 Pulse 86 03/31/25 14:33 BP 146/86 H 03/31/25 14:33 Pulse Ox 100 03/31/25 14:33 Oxygen Delivery Method Room Air 03/31/25 14:33 BMI result Body Mass Index 29.8 Tobacco/Smoking Status: Tobacco use Status Tobacco use date assessed 01/27/25 03/31/25 14:40 Patient Tobacco Use Status Never used Tobacco 03/31/25 14:40 e-Cigarette/Vaping Use Never Used 03/31/25 14:40 PHQ-9: PHQ-9 Score PHQ-9: Total score 8 03/31/25 14:40 Thrive Assessment: Date of Thrive Assessment Date Thrive assessed 03/10/25 03/31/25 14:40 Currently or been in a relationship where the following occur: No concerns reported Const General: alert; No acute distress Eyes Conjunctivae: conjunctivae normal Resp Auscultation: clear to auscultation bilaterally Cardio Rate: regular rate Rhythm: regular rhythm GI Inspection: Yes normal to inspection Extrem General: Yes normal to inspection and No edema Results AMB Hemoglobin A1c AMB Hemoglobin A1c 8.6 % Last Edit by Regina Boland CMA on 03/31/25 14:42 Results Reviewed Results Reviewed: Laboratory Last Values Hgb A1c (Clinic) 8.6 % (4.0-6.0) H 03/31/25 14:40 Coding Level of Care Code Est Pt Level 4 (56545) Complex EM visit Add On G2211 Diagnoses Diabetes mellitus, type II, insulin dependent E11.9; Z79.4 Gastroesophageal reflux disease without esophagitis K21.9 Esophagitis presence: without esophagitis Hypercholesteremia E78.00 Primary hypertension I10 Hypertension type: primary hypertension Headache R51.9 Pulmonary nodule R91.1 Assessment & Plan Assessment & Plan (1) Diabetes mellitus, type II, insulin dependent: Code(s): E11.9 - Type 2 diabetes mellitus without complications; Z79.4 - [facility] (current) use of insulin Category: Medical Plan: Decrease the amount of carbohydrate intake, pasta, bread, rice and potatoes are all sugar and that is aside from all the sweet stuff, remember that fruits are good but they are Sweet also. Hemoglobin A1c goal of less than 7.0 patient is on Trulicity NovoLog and Lantus but with the prednisone blood sugars are up. (2) GERD (gastroesophageal reflux disease): Code(s): K21.9 - Gastro-esophageal reflux disease without esophagitis Category: Medical Qualifiers: Esophagitis presence: without esophagitis Qualified Code(s): K21.9 - Gastro-esophageal reflux disease without esophagitis Plan: Avoid the foods that causes that usually spicy foods, tomato products, juices, coffee, soda and foods that your sensitive to. After eating do not lie down, allow 3-4 hours before in lie down. And keep the head of bed above 30 degrees to avoid the acid from going up. (3) Hypercholesteremia: Code(s): E78.00 - Pure hypercholesterolemia, unspecified Category: Medical Plan: Avoid fried foods, chicken skin, eggs, butter margarine, pastries and meat. Be it pork or beef they have a lot of cholesterol patient is on atorvastatin 10 mg once a day October 2024 LDL goal is controlled (4) HTN (hypertension): Code(s): I10 - Essential (primary) hypertension Category: Medical Qualifiers: Hypertension type: primary hypertension Qualified Code(s): I10 - Essential (primary) hypertension Plan: Continue with blood pressure medication. Decrease salt intake and exercise on lisinopril 40 mg once a day metoprolol 25 mg once a day (5) Headache: Code(s): R51.9 - Headache, unspecified Category: Medical Plan: -patient is being treated for GCA with steroids and was advised referral to vascular surgeon for giant cell arteritis. wll refer to the vascular surgeon for biopsy and neurology for the WAYNE (6) Pulmonary nodule: Code(s): R91.1 - Solitary pulmonary nodule Category: Medical Plan: Advised to have a retest of CT chest in 3-6 months Plan History of Present Illness The patient is a 65-year-old female presenting for a follow-up visit. She has a history of hypertension, gastroesophageal reflux disease, hypercholesterolemia, schizophrenia, diabetes mellitus, and depression. In March, the patient was hospitalized due to shortness of breath and a right-sided headache. She was treated with intravenous Solu-Medrol and transitioned to oral prednisone. A CTA showed ground glass densities, indicating positive rheumatoid arthritis, and she was treated with antibiotics. The patient was seen by neurology for a likely tension headache and possible giant cell arteritis, and a biopsy of the temporal artery was recommended. She was advised to follow up with a vascular surgeon for further evaluation. In February, an abdominal MRI revealed cholelithiasis with a normal pancreas. Blood work in March showed mild anemia with a hemoglobin level of 11.1 g/dL and an elevated hemoglobin A1c of 8.6%. The patient is currently on atorvastatin for hypercholesterolemia, lisinopril and metoprolol for hypertension, and Trelegy for pulmonary issues. Her diabetes management includes Trulicity, NovoLog, and Lantus, but her blood sugars are elevated due to prednisone use. Health Maintenance Social History Review of Systems - Respiratory: Reports dyspnea - Neurological: Reports right-sided headache Physical Exam - Respiratory: Lung sounds clear to auscultation bilaterally Results - Imaging: Pelvic ultrasound under gynecology, negative results - Imaging: CTA showed ground glass densities indicating positive rheumatoid arthritis - Imaging: Abdominal MRI revealed cholelithiasis with a normal pancreas - Labs: Blood work showed mild anemia with hemoglobin level of 11.1 g/dL - Labs: Hemoglobin A1c elevated at 8.6% Plan The patient will continue her current medications, including atorvastatin for hypercholesterolemia, lisinopril and metoprolol for hypertension, and Trelegy for pulmonary issues. Her diabetes management will include Trulicity, NovoLog, and Lantus, with adjustments as needed due to prednisone use. A tapering schedule for prednisone has been outlined, starting with 60 mg and gradually reducing the dose over several weeks. The patient is advised to follow up with a vascular surgeon for further evaluation of giant cell arteritis and to have a repeat CT scan in 3 to 6 months for the pulmonary nodule. Regular follow-up appointments with the primary care physician are recommended to monitor her conditions and adjust treatment plans as necessary. Patient was informed and verbally consented to the use of an ambient scribe for clinic note documentation during this visit. Discussion Notes I discussed with the patient the management of her giant cell arteritis, including the need for a vascular surgeon referral and the importance of tapering her prednisone dose to minimize side effects, especially considering her diabetes. We also talked about the need for a follow-up CT scan for the pulmonary nodule and the continuation of her current medication regimen. Patient Instructions - Continue taking your current medications as prescribed. - Follow the prednisone tapering schedule provided by your doctor. - Schedule and attend follow-up appointments with your primary care physician and vascular surgeon. - Plan for a repeat CT scan in 3 to 6 months to monitor the pulmonary nodule. Orders: Orders AMB Hemoglobin A1c Today Z13.9 - Encounter for screening, unspecified CT chest wo IV con 4 Months R91.1 - Solitary pulmonary nodule Referrals Neurology Referral M31.6 - Other giant cell arteritis Vascular Surgery Referral M31.6 - Other giant cell arteritis Medications: New prednisone 50 mg QD x 7 days then 40 mg QD x 7 days then 30 mg QD x 7 days then 20 mg QD 100 tabs 0RF M31.6 - Other giant cell arteritis
[2025-03-31 14:33] VITALS: BP 146/86; PULSE 86; TEMP 36.3; O2SAT 100; BMI 29.8
== END 2025-03-31 15:42 | disposition home or self-care (01) ==
LOC: HO.HMCH 14:07
PROVIDERS: PCP Internal Medicine; Visit Provider Internal Medicine
DX: E11.9 Type 2 diabetes mellitus without complications (principal); Z79.4 Long term (current) use of insulin; K21.9 Gastro-esophageal reflux disease without esophagitis; E78.00 Pure hypercholesterolemia, unspecified; I10 Essential (primary) hypertension; R51.9 Headache, unspecified; R91.1 Solitary pulmonary nodule; Z13.9 Encounter for screening, unspecified

== ENCOUNTER → 2025-03-31 14:06 | Outpatient (BNVA) | payer OTHER, SELFPAY | PROVIDERS: PCP Internal Medicine; Visit Provider Internal Medicine | DX: E11.9 Type 2 diabetes mellitus without complications (principal); K21.9 Gastro-esophageal reflux disease without esophagitis; E78.00 Pure hypercholesterolemia, unspecified; I10 Essential (primary) hypertension; R51.9 Headache, unspecified; R91.1 Solitary pulmonary nodule; Z79.4 Long term (current) use of insulin; Z79.899 Other long term (current) drug therapy; Z13.30 Encounter for screening examination for mental health and behavioral disorders, unspecified | CPT/HCPCS: 83036; 96127; 99212 ==

== ENCOUNTER 2025-04-10 17:13 | Inpatient (IN) | payer OTHER, SELFPAY ==
--- OUTSIDE RECORDS SUMMARY | 2025-04-04 12:53 | XMS_ITS | Encounter Summary ---
Author Organization [employer] Address [address] [place] [address] Care Team Providers Care Civil Clerk Name Role Phone Evelia Donald MD Primary Care Provider [phone] Reason for Visit * Reason Comments Abdominal Pain altered Altered Mental Status Encounter Details Date Type Department Care Team (Late st Contact Info) Description 04/04/2025 12:53 PM EDT - 04/04/2025 10:31 PM EDT Emergency [facility] Emergency [address] [place] [id number] Sadiq Moran MD [address] [address] Jonelle Joseph, DO [address] [place] [address] Abdominal pain, unspecified abdominal location (Primary Dx); Weakness Discharge Disposition: Home or Self Care Social History Tobacco Use Types Packs/Day Years Used Date Smoking Tobacco: Never Smokeless Tobacco: Never Alcohol Use Standard Drinks/Week Comments Yes 0 [...] Sign Reading Time Taken Comments Blood Pressure 138/74 04/04/2025 6:29 PM EDT Pulse 84 04/04/2025 6:29 PM EDT Temperature 36.8 C (98.3 F) 04/04/2025 12:58 PM EDT Respiratory Rate 14 04/04/2025 6:29 PM EDT Oxygen Saturation 97% 04/04/2025 6:29 PM EDT Inhaled Oxygen Concentration - - Weight 81.6 kg (180 lb) 04/04/2025 1:29 PM EDT Height 157.5 cm (5' 2.01 ) 04/04/2025 1:29 PM ED T Body Mass Index 32.91 04/04/2025 1:29 PM EDT documented in this encounter Discharge Instructions * Discharge Instructions* Jonelle Joseph DO - 04/04/2025 9:34 PM EDT Please return to the emergency department should experience onset of fever, return of abdominal pain or significant alteration in mentation. * Attachments The following attachments cannot be sent through Care Everywhere. * Abdominal Pain (Mauritian) documented in this encounter Medications at Time of Discharge ammonium lactate (LAC-HYDRIN) 12 % lotion Apply 1 application topically 2 (two) times a day if needed for dry skin. aspirin 81 mg chewable tablet Chew 1 tablet (81 mg total) 1 (one) time each day. 06/15/2014 atorvastatin (LIPITOR) 40 mg tablet Take 1 [...] each day. Do not crush or chew. traMADoL (ULTRAM) 50 mg tablet Take 1 tablet (50 mg total) by mouth every 6 hours as needed. traZODone (DESYREL) 50 mg tablet Take 1 tablet (50 mg total) by mouth at bedtime. documented as of this encounter Discharge Disposition Disposition Code Departure Means Destination Comment s Home or Self Correction documented in this encounter Progress Notes * Cassandra Culp RN - 04/04/2025 6:43 PM EDT Pt unable to void. Bladder scan showed 556 ml. Straight cath performed and voided 600 ml. Pt statesabdominal pain has subsided and pressure relieved. * Ann Yu - 04/04/2025 6:38 PM EDT [phone] Justin Pt daughter Ann Melgararez 04/04/25 1838 * Cassandra Culp RN - 04/04/2025 2:53 PM EDT Pt states she has been having abdominal pain for a while and has not been eating d/t the pain. States she cannot remember the last time she ate. 6/10 left quadrant pain with diffuse tenderness throughout. Pt also states she has been constipated and cannot remember her LBM. Alert and oriented to time and self. * Cassandra Culp RN - 04/04/2025 12:53 PM EDT Pt BIBA from home with c/o abdominal and hypoglycemia with weakness. Family went to visit her but had no answer. Eventually family able to get in the house and per EMS family states pt was minimally responsive - to touch only. Per EMS altered mental status. Alert and oriented x 2. Mauritian speaking only. Hx diabetes. * Sadiq Moran MD - 04/04/2025 12:46 PM EDT Emergency Medicine Note Patient Name: Bessie Coy Initial Evaluation: 04/04/2025 : 1960 Patient's PCP: Evelia Donald MD Emergency Physician: Sadiq Moran MD History of Present Illness Chief Complaint: Chief Complaint Patient presents with ??? Abdominal Pain altered ??? Altered Mental Status HPI: 65 y.o. female has a past medical history of Anxiety, DDD (degenerative disc disease), cervical, Depression, Diabetes mellitus (CMS/HCC V24, CMS/HCC V28), Disease of thyroid gland, High blood cholesterol level, Insomnia, Psychosis (CMS/HCC V24, CMS/HCC V28), and Schizophrenia (CMS/HCC V24, CMS/HCC V28). She presents with generalized weakness and not feeling good . No vomiting she complains of diffuse abdominal pain sweating subjective fevers no cough. She notes constipation her last bowelmovement was proximately 4 days ago. She states she was admitted for pancreatitis at [facility] and questionable gallstones back in February or late January. No other surgical history is further no. No dysuria. Her blood sugar was noted to be low as well. ROS: I have performed a ROS with the pertinent positives and negatives documented in the history ofpresent illness. Previous History Past Medical History: Diagnosis Date ??? Anxiety ??? DDD (degenerative disc disease), cervical ??? Depression ??? Diabetes mellitus ([facility] V24, [facility] V28) ??? Disease of thyroid gland ??? High blood cholesterol level ??? Insomnia ??? Psychosis ([facility] V24, [facility] V28) ??? Schizophrenia ([facility] V24, [facility] V28) No past surgical history on file. Social History Tobacco Use ??? Smoking status: Never ??? Smokeless tobacco: Never Vaping Use ??? Vaping status: Never Used Substance Use Topics ??? Alcohol use: Yes ??? Drug use: Defer No family history on file. is allergic to metformin, penicillins, and shellfish derived. No current facility-administered medications on file prior to encounter. Current Outpatient Medications on File Prior to Encounter Medication Sig Dispense Refill ??? ammonium lactate (LAC-HYDRIN) 12 % lotion Apply 1 application topically 2 (two) times a day if needed for dry skin. ??? aspirin 81 mg chewable tablet Chew 1 tablet (81 mg total) 1 (one) time each day. ??? atorvastatin (LIPITOR) 40 mg tablet Take 1 tablet (40 mg total) by mouth at bedtime. ??? busPIRone (BUSPAR) 30 mg tablet Take 1 tablet (30 mg total) by mouth 3 (three) times a day. ??? Glucagon HCl, rDNA, (Glucagon Emergency Kit, human,) 1 mg injection Inject 1 mg into the shoulder, thigh, or buttocks 1 (one) time if needed for low blood sugar. ??? insulin aspart (NovoLOG) 100 unit/mL injection Inject under the skin 4 (four) times a day (after meals and nightly). Sliding Scale as follows- 151-175= 1 unit 176-200= 2 units 201-225= 3 units 226-250= 4 units 251-275= 5 units 276-300= 6 units 301-325= 7 units 326-350= 8 units -Administer within 5 minutes of a meal ??? liraglutide (Victoza 3-Edward) 0.6 mg/0.1 mL (18 mg/3 mL) injection Inject 1.8 mg under the skin 1(one) time each day. ??? lisinopril (PRINIVIL,ZESTRIL) 40 mg tablet Take 0.5 tablets (20 mg total) by mouth 1 (one) timeeach day. 15 each 0 ??? OLANZapine (ZyPREXA) 7.5 mg tablet Take 1 tablet (7.5 mg total) by mouth at bedtime. ??? omeprazole (PriLOSEC) [address] capsule Take 1 capsule (20 mg total) by mouth 1 (one) time each day. Do not crush or chew. ??? traMADoL (ULTRAM) 50 mg tablet Take 1 tablet (50 mg total) by mouth every 6 hours as needed. ??? traZODone (DESYREL) 50 mg tablet Take 1 tablet (50 mg total) by mouth at bedtime. Physical Exam ED Triage Vitals [04/04/25 1258] Temp Heart Rate Resp BP 36.8 ??C (98.3 ??F) 100 18 109/67 SpO2 Temp Source Heart Rate Source Patient Position 94 % Oral Monitor Lying BP Location FiO2 (%) Left arm -- General: Somewhat ill-appearing, fatigued appearing HEENT: PERRL, EOMI, external ears and nose appear unremarkable, airway is patent Neck: Supple, full range of motion, no meningismus, no JVD Chest: Clear to auscultation; no evidence of respiratory distress Circulatory: The rate and rhythm , no murmurs rubs or gallops Abdomen: Non-distended, no rebound Extremities: Normal ROM, No edema, ranging all extremities without difficulty Skin: Diaphoretic diffusely tender, well-perfused , no rashes Neuro: Alert and oriented x 3. no motor or sensory deficits Psyche: Normal affect Results Labs Reviewed BASIC METABOLIC PANEL - Abnormal Result Value Sodium 136 Potassium 4.5 Chloride 101 CO2 24 Anion Gap 11 Glucose 60 (*) BUN 22 Creatinine 0.75 eGFR 88 BUN/Creatinine Ratio 29.3 Calcium 8.9 CBC WITH AUTO DIFFERENTIAL - Abnormal WBC 11.8 (*) RBC 5.10 (*) Hemoglobin 13.9 Hematocrit 43.1 MCV 85.2 MCH 27.5 MCHC 32.3 RDW 14.6 Platelets 442 (*) MPV 9.8 NRBC 0.0 NRBC Absolute 0.00 Neutrophils Relative 63.1 Lymphocytes Relative 27.7 Monocytes Relative 8.1 Eosinophils Relative 0.5 Basophils Relative 0.1 Immature Granulocytes Relative 0.5 Neutrophils Absolute 7.41 (*) Lymphocytes Absolute 3.26 Monocytes Absolute 0.95 Eosinophils Absolute 0.06 Basophils Absolute 0.01 Immature Granulocytes Absolute 0.06 (*) POCT GLUCOSE, BLOOD - Abnormal Glucose POCT 68 (*) POCT GLUCOSE, BLOOD - Abnormal Glucose POCT 245 (*) CBC AND DIFFERENTIAL Narrative: The following orders were created for panel order CBC and differential. Procedure Abnormality Status --------- ------ CBC auto differential[[id number]] Abnormal Final result Please view results for these tests on the individual orders. POC GLUCOSE Abnormal Labs Reviewed BASIC METABOLIC PANEL - Abnormal; Notable for the following components: Result Value Glucose 60 (*) All other components within normal limits CBC WITH AUTO DIFFERENTIAL - Abnormal; Notable for the following components: WBC 11.8 (*) RBC 5.10 (*) Platelets 442 (*) Neutrophils Absolute 7.41 (*) Immature Granulocytes Absolute 0.06 (*) All other components within normal limits POCT GLUCOSE, BLOOD - Abnormal; Notable for the following components: Glucose POCT 68 (*) All other components within normal limits POCT GLUCOSE, BLOOD - Abnormal; Notable for the following components: Glucose POCT 245 (*) All other components within normal limits No orders to display I have discussed the incidental/abnormal imaging and/or lab abnormalities with the patient and haveinstructed them the need for further evaluation and workup with their primary care doctor. I have provided the patient with a paper copy of the abnormality. The laboratory results, imaging results and other diagnostic exam results were reviewed in the EMR. EKG Interpretation Critical Care Time None Medical Decision Making Medications dextrose (D50W) 50% injection 25 g (25 g intravenous Given 04/04/25 1348) ED Course as of 04/10/25 0702 Tue Apr 04, 2025 1715 LFTs appear unremarkable there is a mild leukocytosis but no was infection her blood sugar wasimproved after D50. CT scan shows no acute findings. And no signs of pneumonia on chest on base of the lungs on CT. We await urinalysis likely patient will go home reassessed by oncoming physician. [JL] ED Course User Index [JL] Sadiq Moran MD Clinical Impressions as of 04/10/25 0702 Abdominal pain, unspecified abdominal location Weakness Procedures Procedures Diagnosis No diagnosis found. Disposition Data Unavailable ED Prescriptions None Physician Attestation Sadiq Moran MD 04/04/25 1523 Sadiq Moran MD 04/04/25 1524 Sadiq Moran MD 04/04/25 1802 Sadiq Moran MD 04/10/25 0702 * Jonelle Joseph DO - 04/04/2025 12:46 PM EDT ASSUMED CARE NOTE Patient care transitioned to me by Dr. Moran Patient is a 65-year-old female with past medical history of anxiety, diabetes melitis insulin-dependent, and thyroid disorder who is being evaluated for concern of generalized malaise and weakness. Please see previous providers note for detailed HPI. Studies thus far reveal hyperal glycemia of 48 for which patient was administered 50% dextrose. CBCremarkable for leukocytosis 11.8. Normal lactate at 1.1. Normal lipase. Urinalysis is noninfectioushowever elevated specific gravity with 40 ketones appreciated. CTA of the abdomen pelvis with contrast is negative for acute abdominal or pelvic findings. Upon my reevaluation the patient appears well and is at baseline. Have had an extensive conversation with the patient and her family was present at bedside. She currently she is asymptomatic. I have discussed nonspecific findings of the workup with the patient. With use of shared decision making the patient will be discharged home with plan for outpatient follow-up with her primary care physicianwithin 3 days. We have discussed appropriate ED return precautions. All questions and concerns havebeen addressed. She understands agrees with plan of discharge. FINAL CLINICAL IMPRESSION: Nonspecific abdominal pain Jonelle Joseph DO 04/04/25 2238 documented in this encounter Plan of Treatment Upcoming Encounters Date Type Department Care Team (Late st Contact Info) Description 05/16/2025 10:30 AM EDT Office Visit Orthopedic Surgery - [place] [address] [place] [phone] Zeyad Wallace, DPM [address] [place] [address] documented as of this encounter Procedures Procedure Name Priority Date/Time Associated Diagnosis Comments POCT GLUCOSE BLOOD Routine 04/04/2025 8: 58 PM EDT URINALYSIS WITH REFLEX MICROSCOPIC STAT 04/04/2025 6:25 PM EDT URINALYSIS WITH REFLEX MICROSCOPIC STAT 04/04/2025 6:25 PM EDT LACTATE, WITH REFLEX STAT 04/04/2025 5:[address] ABDOMEN PELVIS W CONTRAST STAT 04/04/2025 3:51 PM EDT POCT GLUCOSE BLOOD Routine 04/04/2025 2: 03 PM EDT CBC WITH AUTO DIFFERENTIAL STAT 04/04/2025 1:26 PM EDT CBC AND DIFFERENTIAL STAT 04/04/2025 1:26 PM EDT LIPASE STAT Add-on 04/04/2025 1:26 PM EDT HEPATIC FUNCTION PANEL STAT Add-on 04/04/2025 1:26 PM EDT BASIC METABOLIC PANEL STAT 04/04/2025 1:26 PM EDT POCT GLUCOSE BLOOD Routine 04/04/2025 1: 25 PM EDT documented in this encounter Results * (ABNORMAL) POCT Glucose, blood (04/04/2025 8:58 PM EDT) Glucose POCT 131(H) 70 - 100 mg/dL 04/04/2025 8:59 PM EDT [facility] Blood Capillary blood specimen / Unknown 04/04/2025 8:58 PM EDT 04/04/2025 9:00 PM EDT us Jonelle Joseph DO LAB POINT OF CARE TE ST DOCKED DEVICE UNSOLICITED RESULTS Final Result [facility] [address] [place] [address], [place] [phone] * (ABNORMAL) Urinalysis with reflex microscopic (04/04/2025 6:25 PM EDT) Specific [place] Urine >1.045(H) 1.003 - 1.030 LAB URINALYSIS - AUTOMATED METHOD 04/04/2025 6:55 PM [facility] pH, Urine 6.5 5.0 - 8.0 pH LAB URINALYSIS - AUTOMATED METHOD 04/04/2025 6:55 PM [facility] Leukocytes, Urine Negative Negative LAB URINALYSIS - AUTOMATED METHOD 04/04/2025 6:55 PM [facility] Nitrite, Urine Negative Negative LAB URINALYSIS - AUTOMATED METHOD 04/04/2025 6:55 PM [facility] Protein, Urine Negative <=Trace mg/dL LAB URINALYSIS - AUTOMATED METHOD 04/04/2025 6:55 PM [facility] Glucose, Urine 100(A) Negative mg/dL LAB URINALYSIS - AUTOMATED METHOD 04/04/2025 6:55 PM [facility] Ketones, Urine 40(A) Negative mg/dL LAB URINALYSIS - AUTOMATED METHOD 04/04/2025 6:55 PM [facility] Urobilinogen , Urine 0.2 0.2 - 1.0 mg/dL LAB URINALYSIS - AUTOMATED METHOD 04/04/2025 6:55 PM [facility] Bilirubin, Urine Negative Negative LAB URINALYSIS - AUTOMATED METHOD 04/04/2025 6:55 PM EDT [facility] Blood, Urine Negative Negative LAB URINALYSIS - AUTOMATED METHOD 04/04/2025 6:55 PM EDT [facility] Urine Urine specimen obtained by clean catch procedure / Unknown Non-blood Collection / Unknown 04/04/2025 6:25 PM EDT 04/04/2025 6:49 PM EDT Sadiq Moran MD LAB URINE ORDERABLES Final Result Performing Organization Address [facility] Co de Phone Number [facility] [address] [place] [address], [place] [phone] * Lactate, with reflex (04/04/2025 5:34 PM EDT) LACTIC ACID 1.1 0.4 - 2.0 mmol/L LAB CHEMISTRY METHOD 04/04/2025 6:13 PM EDT [facility] Blood Venous blood specimen / Unknown Venipuncture / Unknown 04/04/2025 5:34 PM EDT 04/04/2025 5:36 PM EDT Sadiq Moran MD LAB BLOOD ORDERABLES Final Result Performing Organization Address [facility] Co de Phone Number [facility] [address] [place] [address], [place] [phone] * CT Abdomen Pelvis w Contrast (04/04/2025 3:51 PM EDT) Anatomical Region Laterality Modality Body Computed Tomogra phy 04/04/2025 4:07 PM EDT Impressions 04/04/2025 4:11 PM EDT No acute findings in the abdomen and pelvis. -------- FINAL REPORT -------- Dictated By: Thanh Watkins Dictated Date: 04/04/2025 16:07 ET Assigned Physician: Thanh Watkins Reviewed and Electronically Signed By: Thanh Watkins Signed Date: 04/04/2025 16:11 ET Workstation ID: [id number] Transcribed By: Self Edit Transcribed Date: 04/04/2025 16:07 ET Narrative 04/04/2025 4:11 PM EDT PROCEDURE: Contrast enhanced CT of the abdomen and pelvis. HISTORY: Abdominal pain, acute, nonlocalized. COMPARISON: None. TECHNIQUE: Contrast-enhanced CT of the abdomen and pelvis with coronal and sagittal reformats. IV contrast dose: 90 mL ISOVUE-370. Dose length product: 993 mGy-cm. FINDINGS: Lung bases: Minimal dependent atelectasis. Cardiac: Mild coronary artery calcification. Liver: No focal lesion. Portal veins are patent. Biliary: Normal gallbladder and biliary tree. Pancreas: Normal. Spleen: Normal. Adrenal glands: Normal. Kidneys: Normal. Normal appearance of the ureters. Retroperitoneum: No mass or adenopathy. Abdominal vasculature: Mild atherosclerotic calcification. Bowel/mesentery: No obstruction or adenopathy. No mass or ascites. Abdominal wall: Normal. Pelvic nodes: No adenopathy. Pelvic organs: Mildly distended urinary bladder. Bones: Degenerative changes of the spine, hips, SI joints, and pubic symphysis. Procedure Note Thanh Watkins MD - 04/04/2025 PROCEDURE: Contrast enhanced CT of the abdomen and pelvis. HISTORY: Abdominal pain, acute, nonlocalized. COMPARISON: None. TECHNIQUE: Contrast-enhanced CT of the abdomen and pelvis with coronal andsagittal reformats. IV contrast dose: 90 mL ISOVUE-370. Dose length product: 993 mGy-cm. FINDINGS: Lung bases: Minimal dependent atelectasis. Cardiac: Mild coronary artery calcification. Liver: No focal lesion. Portal veins are patent. Biliary: Normal gallbladder and biliary tree. Pancreas: Normal. Spleen: Normal. Adrenal glands: Normal. Kidneys: Normal. Normal appearance of the ureters. Retroperitoneum: No mass or adenopathy. Abdominal vasculature: Mild atherosclerotic calcification. Bowel/mesentery: No obstruction or adenopathy. No mass or ascites. Abdominal wall: Normal. Pelvic nodes: No adenopathy. Pelvic organs: Mildly distended urinary bladder. Bones: Degenerative changes of the spine, hips, SI joints, and pubicsymphysis. IMPRESSION: No acute findings in the abdomen and pelvis. -------- FINAL REPORT -------- Dictated By: Thanh Watkins Dictated Date: 04/04/2025 16:07 ET Assigned Physician: Thanh Watkins Reviewed and Electronically Signed By: Thanh Watkins Signed Date: 04/04/2025 16:11 ET Workstation ID: [id number] Transcribed By: Self Edit Transcribed Date: 04/04/2025 16:07 ET Sadiq Moran MD IMG CT PROCEDURES Final Res ult * (ABNORMAL) POCT Glucose, blood (04/04/2025 2:03 PM EDT) [facility] Glucose POCT 245(H) 70 - 100 mg/dL 04/04/2025 2:04 PM EDT [facility] Blood Capillary blood specimen / Unknown 04/04/2025 2:03 PM EDT 04/04/2025 2:05 PM EDT Generic Provider Poct LAB POINT OF CARE TEST DOCKED DEVICE UNSOLICITED RESULTS Final Result Performing Organization Address [facility] Co de Phone Number [facility] [address] [place] [address], [place] [phone] * Lipase (04/04/2025 1:26 PM EDT) [facility] Lipase 29 13 - 75 unit/L LAB CHEMISTRY METHOD 04/04/2025 3:51 PM EDT [facility] Blood Venous blood specimen / Unknown Venipuncture / Unknown 04/04/2025 1:26 PM EDT 04/04/2025 1:49 PM EDT Sadiq Moran MD LAB BLOOD ORDERABLES Final Result Performing Organization Address City/[facility]/ZIP Co de Phone Number [facility] [address] [place] [address], [place] [phone] * (ABNORMAL) Hepatic function panel (04/04/2025 1:26 PM EDT) Total Protein 5.6(L) 6.0 - 8.0 g/dL LAB CHEMISTRY METHOD 04/04/2025 5:14 PM EDT [facility] Albumin 2.6(L) 3.2 - 5.0 g/dL LAB CHEMISTRY METHOD 04/04/2025 5:14 PM EDT [facility] Total Bilirubin 0.6 0.0 - 1.4 mg/dL LAB CHEMISTRY METHOD 04/04/2025 5:14 PM T [facility] Bilirubin, Direct 0.2 0.0 - 0.3 mg/dL LAB CHEMISTRY METHOD 04/04/2025 5:14 PM T [facility] Bilirubin, Indirect 0.4 0.0 - 1.1 mg/dL LAB CHEMISTRY METHOD 04/04/2025 5:14 PM EDT [facility] ALT (SGPT) 15 10 - 60 unit/L LAB CHEMISTRY METHOD 04/04/2025 5:14 PM T [facility] AST (SGOT) 9(L) 10 - 42 unit/L LAB CHEMISTRY METHOD 04/04/2025 5:14 PM [facility] Alkaline Phosphatase 90 42 - 121 unit/L LAB CHEMISTRY METHOD 04/04/2025 5:14 PM T [facility] Blood Venous blood specimen / Unknown Venipuncture / Unknown 04/04/2025 1:26 PM EDT 04/04/2025 1:49 PM EDT Sadiq Moran MD LAB BLOOD ORDERABLES Final Result [facility] [address] [place] [address], [place] [phone] * (ABNORMAL) CBC auto differential (04/04/2025 1:26 PM EDT) [facility] WBC 11.8(H) 4.8 - 10.8 K/mcL LAB HEMETOLOGY METHOD 04/04/2025 1:56 PM EDT [facility] RBC 5.10(H) 3.80 - 4.80 M/mcL LAB HEMETOLOGY METHOD 04/04/2025 1:56 PM EDT [facility] Hemoglobin 13.9 11.5 - 16.0 g/dL LAB HEMETOLOGY METHOD 04/04/2025 1:56 PM EDT [facility] Hematocrit 43.1 35.0 - 47.0 % LAB HEMETOLOGY METHOD 04/04/2025 1:56 PM [facility] MCV 85.2 79.0 - 98.0 FL LAB HEMETOLOGY METHOD 04/04/2025 1:56 PM [facility] MCH 27.5 27.0 - 32.0 pcg LAB HEMETOLOGY METHOD 04/04/2025 1:56 PM [facility] MCHC 32.3 32.0 - 37.0 g/dL LAB HEMETOLOGY METHOD 04/04/2025 1:56 PM [facility] RDW 14.6 11.0 - 15.0 % LAB HEMETOLOGY METHOD 04/04/2025 1:56 PM [facility] Platelets 442(H) 130 - 400 K/mcL LAB HEMETOLOGY METHOD 04/04/2025 1:56 PM [facility] MPV 9.8 7.0 - 11.0 FL LAB HEMETOLOGY METHOD 04/04/2025 1:56 PM [facility] NRBC 0.0 <1.0 % LAB HEMETOLOGY METHOD 04/04/2025 1:56 PM EDT [facility] NRBC Absolute 0.00 <0.10 K/mcL LAB HEMETOLOGY METHOD 04/04/2025 1:56 PM EDT [facility] Neutrophils Relative 63.1 % LAB HEMETOLOGY METHOD 04/04/2025 1:56 PM [facility] Lymphocytes Relative 27.7 % LAB HEMETOLOGY METHOD 04/04/2025 1:56 PM [facility] Monocytes Relative 8.1 % LAB HEMETOLOGY METHOD 04/04/2025 1:56 PM [facility] Eosinophils Relative 0.5 % LAB HEMETOLOGY METHOD 04/04/2025 1:56 PM [facility] Basophils Relative 0.1 % LAB HEMETOLOGY METHOD 04/04/2025 1:56 PM [facility] Immature Granulocytes Relative 0.5 % LAB HEMETOLOGY METHOD 04/04/2025 1:56 PM [facility] Neutrophils Absolute 7.41(H) 1.50 - 7.00 K/mcL LAB HEMETOLOGY METHOD 04/04/2025 1:56 PM [facility] Lymphocytes Absolute 3.26 1.00 - 5.00 K/mcL LAB HEMETOLOGY METHOD 04/04/2025 1:56 PM [facility] Monocytes Absolute 0.95 0.20 - 1.00 K/mcL LAB HEMETOLOGY METHOD 04/04/2025 1:56 PM [facility] Eosinophils Absolute 0.06 0.00 - 0.50 K/mcL LAB HEMETOLOGY METHOD 04/04/2025 1:56 PM [facility] Basophils Absolute 0.01 0.00 - 0.20 K/mcL LAB HEMETOLOGY METHOD 04/04/2025 1:56 PM [facility] Immature Granulocytes Absolute 0.06(H) 0.00 - 0.03 K/mcL LAB HEMETOLOGY METHOD 04/04/2025 1:56 PM EDT [facility] Blood Venous blood specimen / Unknown Venipuncture / Unknown 04/04/2025 1:26 PM EDT 04/04/2025 1:49 PM EDT us Sadiq Moran MD LAB BLOOD ORDERABLES Final Result [facility] [address] [place] [address], * (ABNORMAL) Basic metabolic panel (04/04/2025 1:26 PM EDT) Sodium 136 133 - 145 mmol/L LAB CHEMISTRY METHOD 04/04/2025 2:18 PM [facility] Potassium 4.5 3.5 - 5.5 mmol/L LAB CHEMISTRY METHOD 04/04/2025 2:18 PM [facility] Chloride 101 96 - 110 mmol/L LAB CHEMISTRY METHOD 04/04/2025 2:18 PM [facility] CO2 24 21 - 32 mmol/L LAB CHEMISTRY METHOD 04/04/2025 2:18 PM [facility] Anion Gap 11 3 - 11 LAB CHEMISTRY METHOD 04/04/2025 2:18 PM [facility] Glucose 60(L) 70 - 100 mg/dL LAB CHEMISTRY METHOD 04/04/2025 2:18 PM [facility] BUN 22 5 - 25 mg/dL LAB CHEMISTRY METHOD 04/04/2025 2:18 PM [facility] Creatinine 0.75 0.50 - 1.10 mg/dL LAB CHEMISTRY METHOD 04/04/2025 2:18 PM [facility] eGFR 88 >=60 mL/min/1. 73m2 LAB CHEMISTRY METHOD 04/04/2025 2:18 PM [facility] Comment:Calculation based on the Chronic Kidney Disease Epidemiology Collaboration (CKD-EPI) equation refit without adjustment for race. BUN/Creatinine Ratio 29.3 LAB CHEMISTRY METHOD 04/04/2025 2:18 PM EDT [facility] Calcium 8.9 8.5 - 10.5 mg/dL LAB CHEMISTRY METHOD 04/04/2025 2:18 PM EDT [facility] Blood Venous blood specimen / Unknown Venipuncture / Unknown 04/04/2025 1:26 PM EDT 04/04/2025 1:49 PM EDT Sadiq Moran MD LAB BLOOD ORDERABLES Final Result [facility] [address] [place] [address], [place] [phone] * (ABNORMAL) POCT Glucose, blood (04/04/2025 1:25 PM EDT) [facility] Glucose POCT 68(L) 70 - 100 mg/dL 04/04/2025 1:25 PM EDT [facility] Blood Capillary blood specimen / Unknown 04/04/2025 1:25 PM EDT 04/04/2025 1:27 PM EDT us Generic Provider Poct LAB POINT OF CARE TEST DOCKED DEVICE UNSOLICITED RESULTS Final Result [facility] [address] [place] [address], [place] [phone] documented in this encounter Visit Diagnoses Diagnosis Abdominal pain, unspecified abdominal location- Primary Weakness Other malaise and fatigue documented in this encounter Administered Medications Inactive Administered Medications - up to 3 most recent administrations Medication Order MAR Action Action Date Dose Rate Site dextrose (D50W) 50% injection 25 g 25 g, intravenous, Once, On Thu04/04/25 at 1332, For 1 dose Given 04/04/2025 1:48 PM EDT 25 g iopamidoL (ISOVUE-370) 370 mg iodine /mL (76 %) injection 90 mL 90 mL, intravenous, Once in imaging, Starting on e 04/04/25 at 1546, For 1 dose Given 04/04/2025 3:47 PM EDT 90 mL ondansetron (PF) (ZOFRAN) injection 4 mg 4 mg, intravenous, Once, On Thu04/04/25 at 1516, For 1 dose Given 04/04/2025 3:21 PM EDT 4 mg sodium chloride 0.9 % bolus 1,000 mL 1,000 mL, intravenous, at 1,000 mL/hr, Administer over 1 Hours, Once, On Thu04/04/25 at 1516, For 1 dose New Bag 04/04/2025 3:21 PM EDT 1,000 mL 100 0 mL/hr sodium chloride 0.9 % flush 10 mL 10 mL, intravenous, Once, On Thu04/04/25 at 1547, For 1 dose Given 04/04/2025 3:47 PM EDT 10 mL documented in this encounter Active and Recently Administered Medications Times are shown in EDT. Scheduled Medication Order 04/02/2025 04/03/2025 04/04/2025 dextrose (D50W) 50% injection 25 g (COMPLETED) 25 g, intravenous, Once, On Thu04/04/25 at 1332, For 1 dose 1348 (Given - Provid er: Cassandra Culp RN) iopamidoL (ISOVUE-370) 370 mg iodine /mL (76 %) injection 90 mL (COMPLETED) 90 mL, intravenous, Once in imaging, Starting on Thu04/04/25 at 1546, For 1 dose 1547 (Given - Provid er: Inderjit Person) ondansetron (PF) (ZOFRAN) injection 4 mg (COMPLETED) 4 mg, intravenous, Once, On Thu04/04/25 at 1516, For 1 dose 1521 (Given - Provid er: Cassandra Culp RN) sodium chloride 0.9 % bolus 1,000 mL (COMPLETED) 1,000 mL, intravenous, at 1,000 mL/hr, Administer over 1 Hours, Once, On Thu04/04/25 at 1516, For 1 dose 1521 (New Bag - Prov ider: Cassandra Culp RN)1843 (Stopped - Provider: Cassandra Culp RN) sodium chloride 0.9 % flush 10 mL (COMPLETED) 10 mL, intravenous, Once, On Thu04/04/25 at 1547, For 1 dose 1547 (Given - Provid er: Inderjit Person) documented in this encounter Care Teams Civil Clerk Relationship Specialty Start Date End Date Evelia Donald MD [address] [facility] , [address] [facility]A: [facility] OTIS De Oliveira PCP - General Internal Medicine 08/30/24 documented as of this encounter
--- NOTE | ~2025-04-10 | CT_ITS ---
CLINICAL HISTORY: weakness, confusion CT of the head without contrast. Comparison 03/21/2025. Findings: There is mild atrophy with white matter changes. No acute hemorrhage or infarct is seen. No masses are identified and there is no hydrocephalus. There is no mass-effect. Impression: No acute intracranial abnormality is identified. This document has been electronically signed by: Miguel Khoury MD on 04/10/2025 20:19:16
[2025-04-10 17:37] VITALS: BP 149/57; BP 160/72; PULSE 72; PULSE 75; RESP 16; TEMP 36.6; O2SAT 100; O2SAT 97; BMI 31.2
--- NOTE | 2025-04-10 17:55 | PC.NURSE ---
Pt JOSELUIS. Family called EMS stating pt has been declining for several weeks, shes not eating, taking meds, or answering phone/door for family and stopped going to day to day activities. She lives alone. Family also reports she has been nonverbal for a couple of weeks, they are concerned that she is getting worse. Pt has previously made comments to family that she is scared and crying when left alone in her apartment. She has a hx of depression and schizophrenia. Pt is alert, making eye contact, tracking staff around room, following commands but is not answering any questions. Does not respond when asked about pain. She does not appear to be in any distress. Shes breathing normally, unlabored. Skin is pink, warm and dry. VSS. BGL obtained on arrival and was 69 - pt given juice and a sandwich and is eating. Family at bedside. Plan of care ongoing.
[2025-04-10 17:56] LABS: Glucose, Whole Blood 69 mg/dL (60-115)
--- NOTE | 2025-04-10 18:10 | ECG_ITS ---
Test Reason : CHECK QTC Blood Pressure : */* mmHG Vent. Rate : 79 BPM Atrial Rate : 79 BPM P-R Int : 142 ms QRS Dur : 102 ms QT Int : 366 ms P-R-T Axes : 36 -18 89 degrees QTcB Int : 419 ms Normal sinus rhythm Moderate voltage criteria for LVH, may be normal variant ( R in aVL , [place] product ) Anterolateral infarct , age undetermined Abnormal ECG When compared with ECG of 21-Mar-2025 09:05, Nonspecific T wave abnormality now evident in Lateral leads Referred By: Yojana Bhandari Electronically Signed By: Nate Azar
--- NOTE | 2025-04-10 18:21 | ED_ITS ---
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 and [facility] - she is not taking her medications. She is not eating. She won't get up. She won't talk. Her niece is her HCP and states she keeps getting checked out but patient then continues to stay home and be weak. On arrival to room she ate and drank then was talking. She then again stopped talking but was tracking eyes nodding no focal deficits. Complaint: generalized weakness Onset (ago): week(s) (2) Duration: progressively worsening Location: generalized Migration: none Severity: moderate Relieving factors: none Exacerbating factors: none Context: depression and other Associated symptoms: denies other symptoms Related Data Home Medications ?Medication ?Instructions ?Recorded ?Confirmed amitriptyline 10 mg tablet 5 mg PO BEDTIME 01/19/25 ropinirole 0.25 mg tablet 1 mg PO BEDTIME 01/19/25 sennosides 8.6 mg-docusate sodium 1 tab PO BID 5 04/11/25 50 mg tablet (Senna with Docusate Sodium) omeprazole 20 mg capsule,delayed 20 mg PO DAILY@0630 0 03/21/25 04/11/25 release atorvastatin 10 mg tablet 10 mg PO BEDTIME 04/11/25 insulin glargine-yfgn 100 unit/mL 48 unit subcut DAILY 04/11/25 04/11/25 (3 mL) subcutaneous pen prednisone 10 mg tablet See Taper PO DIRECTED 04/11/25 Previous Rx's ?Medication ?Instructions ?Recorded blood-glucose meter (Prodigy #1 ea 02/08/24 Autocode Meter kit) lancets 28 gauge (Prodigy Lancets) #100 ea 02/08/24 walker #1 ea 07/26/24 blood-glucose meter (FreeStyle #1 ea 11/29/24 Lite Meter kit) furosemide 40 mg tablet 40 mg PO DAILY #90 tabs 03/2 02/12 blood sugar diagnostic (FreeStyle #100 ea 12/20/24 Test strips) tolterodine 2 mg capsule,extended 2 mg PO DAILY 90 day s #90 caps 01/04/25 release 24 hr metoprolol succinate 25 mg 25 mg PO DAILY #30 tabs tablet,extended release 24 hr divalproex 500 mg tablet,extended 1,000 mg (2 x 500 mg ) PO BEDTIME 02/04/25 release 24 hr 90 days #180 tabs lisinopril 20 mg tablet 40 mg (2 x 20 mg) PO DAILY 9 0 days 02/04/25 #180 tabs insulin aspart U-100 100 unit/mL 10 unit (0.1 mL) subc ut TID 90 03/08/25 (3 mL) subcutaneous pen ( #27 mL FlexPen U-100 Insulin aspart) pen needle, diabetic 32 gauge x #100 ea 03/22/25 (1st Tier Unifine Pentips) adult diapers pull-ups #240 ea 03/27/25 polyethylene glycol 3350 17 17 g PO DAILY 60 days #1,0 20 grams 03/30/25 gram/dose oral powder acyclovir 400 mg tablet 400 mg PO TID 30 days #90 ta bs 03/31/25 dulaglutide 1.5 mg/0.5 mL 1.5 mg (0.5 mL) subcut FR #2 mL 04/01/25 subcutaneous pen injector (Trulicity) Allergies Allergy/AdvReac Type Severity Reaction Status Date / Time Penicillins Allergy Intermediate rash/swelli Verified 04/10/25 17:47 ng shellfish derived Allergy Intermediate Swelling, Verified 04/10/25 17:47 Hives Review of Systems 2 Review of Systems: ROS unable to be obtained due to patient not answering all questions PMFSH Past Medical History Attestation statement: The following information was validated with the patient. Source: old records reviewed Medical History Class 1 obesity Anxiety Atypical pneumonia Pneumonitis Nausea Abdominal pain Osteoporosis Hypertension History of blood clot in brain Hypercholesteremia HSV-2 (herpes simplex virus 2) infection Arthritis Rheumatic fever Schizophrenia GERD (gastroesophageal reflux disease) Depression HTN (hypertension) Hyperlipemia Diabetes Surgical History Hx of colonoscopy History of tubal ligation History of cystostomy History of 2 sections Family History Family History Sister Age: 64 Osteoarthritis Mother Cancer of lymphatic and hematopoietic tissue, Onset Age: 83 COVID-19 Father FH: heart attack Brother FH: heart attack Other Diabetes HTN (hypertension) Mental health disorder Social History Social History Household Members: None Household Members Other:: sister Housing: Apartment Do you presently have visiting nurse or other home services: Yes ([employer]) Alcohol intake: never Patient Tobacco Use Status: Never used Tobacco Smoked in Last 30 Days: No e-Cigarette/Vaping Use: Never Used Second Hand Smoke Exposure: No Use of substances other than those prescribed or required for medical reasons: No Currently Displaying Signs/Symptoms of Drug Intoxication Withdrawal: No Have you been hit, kicked, punched, or otherwise hurt by someone within the past year? If so, by whom?: No Do you feel safe in your current relationship?: No Current Relationship Is there a partner from a previous relationship who is making you feel unsafe now?: No Are you made to feel afraid or neglected: No Advance Directives: Yes (HCP) Advance Directives on File: Yes Advance Directives Date on File: 02/08/24 Do you have thoughts of harming others: None Do you have a plan to hurt others: No Plan Recently lost weight without trying: Yes How much weight loss: Unsure Eating poorly because of decreased appetite: Yes Nutrition screen score: 5 Nutrition Risks: Poor intake 0-25% >4 days Patient : No : No Poor oral hygiene: No service: No Current occupational status: disabled Sexual orientation: Straight/Heterosexual Gender identity: Female Cognitive needs: Yes (walker) Hearing needs: No Vision needs: Yes (glasses) Physical Exam 2 Vital Signs: Vital Signs: Last Vital Signs Temp 98.1 F 04/12/25 20:00 Pulse 99 04/12/25 20:00 Resp 18 04/12/25 20:00 BP 103/60 04/12/25 20:00 Pulse Ox 95 04/12/25 20:00 O2 Del Method Room Air 04/12/25 20:00 BMI result Body Mass Index 31.2 Appearance: Alert. Oriented X2. No acute distress. Eyes: Pupils equal, round and reactive to light. ENT: Pharynx normal. Neck: Normal inspection. Neck supple. CVS: Normal heart rate and rhythm. Pulses normal. Respiratory: No respiratory distress. Breath sounds normal. Abdomen: Soft and nontender. Skin: Skin warm and dry. Normal skin color. Normal skin turgor. Extremities: No lower extremity edema. No calf ttp Neuro: Oriented X 2. No motor deficit. No sensory deficit. CN2-12 intact Course Reevaluation(s) Reevaluation #1: 04/11/2025 Patient was signed out to me by Dr. Ny 07:00 pending crisis evaluation. At this time she was seen by the crisis team patient will be psychiatric inpatient level of care Time: 08:09 Reevaluation #2: Time: 19:00 Date: 04/11/25 Provider: Yojana Bhandari DO Physician observation ended at 1900. Patient to be admitted as inpatient to psychiatry. Medications Administered Generic Name Dose Route Start Last Admin Trade Name Freq PRN Reason Stop Dose Admin Acyclovir 400 mg 04/11/25 21:00 04/12/25 20:05 Acyclovir 200 Mg Capsule PO 400 mg TID CASANDRA Administration Amitriptyline HCl 5 mg 04/11/25 21:00 04/12/25 20:04 Amitriptyline Hcl 10 Mg Tablet PO 5 mg BEDTIME CASANDRA Administration Atorvastatin Calcium 10 mg 04/11/25 21:00 04/12/25 20:04 Atorvastatin Calcium 10 Mg Tablet PO 10 mg BEDTIME CASANDRA Administration Divalproex Sodium 1,000 mg 04/11/25 21:00 04/12/25 20:05 Divalproex Sodium Er 500 Mg Tab.Er.24h PO 1,000 mg BEDTIME CASANDRA Administration Furosemide 40 mg 04/12/25 09:00 04/12/25 09:00 Furosemide 40 Mg Tablet PO 40 mg DAILY CASANDRA Administration Protocol Insulin Glargine 48 unit 04/12/25 09:00 04/12/25 08:57 Insulin Glargine,Hum.Rec.Anlog 100 Unit/Ml 10 Ml Vial SUBCUT 48 unit DAILY CASANDRA Administration Insulin Human Lispro 10 unit 04/12/25 07:30 04/13/25 07:39 Insulin Lispro 100 Unit/Ml 3 Ml Vial SUBCUT 10 unit TIDAC CASANDRA Administration Lisinopril 40 mg 04/12/25 09:00 04/12/25 09:00 Lisinopril 40 Mg Tablet PO 40 mg DAILY CASANDRA Administration Protocol Lorazepam 0.5 mg 04/12/25 21:00 04/12/25 20:05 Lorazepam 0.5 Mg Tablet PO 0.5 mg TID CASANDRA Administration Metoprolol Succinate 25 mg 04/12/25 09:00 04/12/25 09:00 Metoprolol Succinate Er 25 Mg Tab.Er.24h PO 25 mg DAILY CASANDRA Administration Protocol Omeprazole 20 mg 04/12/25 06:30 04/13/25 06:18 Omeprazole 20 Mg Capsule.Dr PO 20 mg DAILY@0630 CASANDRA Administration Polyethylene Glycol 17 gm 04/12/25 09:00 04/12/25 09:01 Polyethylene Glycol 3350 17 Gm Powd.Pack PO 17 gm DAILY CASANDRA Administration Prednisone 50 mg 04/12/25 09:00 04/12/25 08:58 Prednisone 10 Mg Tablet PO 05/05/25 08:59 50 mg DAILY CASANDRA Administration Taper Ropinirole HCl 1 mg 04/11/25 21:00 04/12/25 20:05 Ropinirole Hcl 1 Mg Tablet PO 1 mg BEDTIME CASANDRA Administration Senna/Docusate Sodium 1 tab 04/11/25 21:00 04/12/25 20:05 Sennosides/Docusate Sodium Tablet PO 1 tab BID CASANDRA Administration Tolterodine Tartrate 2 mg 04/12/25 09:00 04/12/25 08:59 Tolterodine Tartrate La 2 Mg Cap.Er.24h PO 2 mg DAILY CASANDRA Administration Trazodone HCl 50 mg 04/11/25 16:51 04/12/25 20:05 Trazodone Hcl 50 Mg Tablet PO 50 mg BEDTIME PRN Administration Insomnia Discontinued Medications Generic Name Dose Route Start Last Admin Trade Name Freq PRN Reason Stop Dose Admin Lorazepam 1 mg 04/11/25 17:27 04/11/25 17:31 Lorazepam 1 Mg Tablet PO 04/11/25 17:28 1 mg ONCE ONE Administration Sodium Chloride 5 ml 04/12/25 00:07 04/12/25 00:14 0.9 % Sodium Chloride Flush 5 Ml Syringe IVFLUSH 04/12/25 00:08 5 ml ONCE ONE Administration Medical Decision Making Medical Decision Making MDM Narrative: 65 yo female with PMH of schizophrenia, pneumonia, bacteremia enterobacter, HLD, hypothyroidism, DM, HTN, GERD here with c/o intermittent not eating, FTT, crying, not eating, not taking her medications at this time will obtain labs, EKG, UA, CT head for mass if negative work up she needs samaria psych eval. Differential Diagnosis Differential Diagnoses: The differential diagnosis associated with the presentation includes weakness, head mass/stroke but unlikely x 2 weeks and symptoms are waxing or waning, decompensation Admission/Observation Consideration of admission/observation: Escalation of care including admission/observation considered physician observation started at 858pm pending CARE team Consult Healthcare Provider Management of the patient was discussed with: Behavioral Health Provider Lab Data [facility] Lab Attestation statement: I reviewed the patient's lab results. Na to be rechecked likely dehydration 04/10/25 20:21 04/12/25 08:16 Labs: Lab Results 04/10/25 04/10/25 04/10/25 Range/Units 17:52 18:50 20:21 WBC 10.5 (4.8-10.8) X10*3/uL RBC 4.90 D (4.20-5.50) X10*6/uL Hgb 13.8 D (12.0-16.0) g/dl Hct 40.5 D (37.0-47.0) % MCV 82.7 (80.0-98.0) fL MCH 28.2 (27.0-33.0) pg MCHC 34.1 (31.0-35.0) g/dl RDW 15.0 (11.0-16.0) % Plt Count TNP MPV 10.8 (9.4-12.3) fL Immature Gran % (Auto) 0.4 (0.0-0.4) % Neut % (Auto) 54.2 (45-73) % Lymph % (Auto) 39.4 (20-40) % Harris % (Auto) 5.4 (2-11) % Eos % (Auto) 0.5 (0-4) % Baso % (Auto) 0.1 (0-2) % Lymph # (Auto) 4.1 (1.2-4.9) X10*3/uL Harris # (Auto) 0.6 (0.1-1.2) X10*3/uL Eos # (Auto) 0.1 (0.0-0.4) X10*3/uL Baso # (Auto) 0.0 (0.0-0.2) X10*3/uL Abs Immat Gran (auto) 0.04 H (0.00-0.03) X10*3/uL Absolute Neuts (auto) 5.7 (2.0-8.3) x10*3/uL Absolute Nucleated RBC 0.030 H (0.0-0.012) X10*3/uL Nucleated RBC % (auto) 0.3 H (0.0-0.2) /100WBC Smear Tech's Comments VERIFIED Sodium 132 L (135-145) mmol/L Potassium 4.0 (3.3-5.1) mmol/L Chloride 95 L (96-108) mmol/L Carbon Dioxide 29 (22-29) mmol/L Anion Gap 12 (12-20) BUN 18 H (9-16) mg/dL Creatinine 0.72 (0.5-1.4) mg/dL Estim Creat Clear Calc 74.0 Estimated GFR > 60 POC Glucose 69 115 (60-115) mg/dL Random Glucose 218 H (60-115) mg/dL Calcium 8.3 L (8.4-10.2) mg/dL Magnesium 2.0 (1.6-2.6) mg/dL Total Bilirubin 0.3 (0.0-1.0) mg/dL Direct Bilirubin 0.1 (0.0-0.5) mg/dL AST 24 (5-31) U/L ALT 15 (0-31) U/L Alkaline Phosphatase 72 (39-117) U/L Total Protein 5.6 L (6.5-8.0) g/dL Albumin 3.2 L (3.5-5.0) g/dL TSH 4.39 H (0.32-4.0) uIU/mL Free T4 1.44 (0.71-1.85) ng/dL Urine Color Urine Appearance Urine pH (5.0-9.0) Ur Specific Evangeline (1.005-1.025) Urine Protein (Neg-Trace) mg/dL Urine Glucose (UA) (Negative) mg/dL Urine Ketones (Negative) mg/dL Urine Blood (Negative) Urine Nitrite (Negative) Ur Leukocyte Esterase (Negative) Urine RBC (0-2) /HPF Urine WBC (0-5) /HPF Ur Squamous Epith Cells (0-2) /HPF Urine Bacteria (None Seen) Hyaline Casts (0-2) /LPF Urine Opiates Screen (Not Detect) Ur Buprenorphine Scrn (Not Detect) ng/mL Ur Oxycodone Screen (Not Detect) ng/mL Urine Methadone Screen (Not Detect) ng/mL Urine Fentanyl Screen (Not Detect) Ur Barbiturates Screen (Not Detect) Valproic Acid 71.0 (50.0-100.0) mcg/mL Ur Phencyclidine Scrn (Not Detect) Ur Amphetamines Screen (Not Detect) U Benzodiazepines Scrn (Not Detect) Urine Cocaine Screen (Not Detect) U Marijuana (THC) Screen (Not Detect) 04/11/25 04/11/25 04/11/25 Range/Units 08:07 08:31 08:31 WBC (4.8-10.8) X10*3/uL RBC (4.20-5.50) X10*6/uL Hgb (12.0-16.0) g/dl Hct (37.0-47.0) % MCV (80.0-98.0) fL MCH (27.0-33.0) pg MCHC (31.0-35.0) g/dl RDW (11.0-16.0) % Plt Count MPV (9.4-12.3) fL Immature Gran % (Auto) (0.0-0.4) % Neut % (Auto) (45-73) % Lymph % (Auto) (20-40) % Harris % (Auto) (2-11) % Eos % (Auto) (0-4) % Baso % (Auto) (0-2) % Lymph # (Auto) (1.2-4.9) X10*3/uL Harris # (Auto) (0.1-1.2) X10*3/uL Eos # (Auto) (0.0-0.4) X10*3/uL Baso # (Auto) (0.0-0.2) X10*3/uL Abs Immat Gran (auto) (0.00-0.03) X10*3/uL Absolute Neuts (auto) (2.0-8.3) x10*3/uL Absolute Nucleated RBC (0.0-0.012) X10*3/uL Nucleated RBC % (auto) (0.0-0.2) /100WBC Smear Tech's Comments Sodium Cancelled 136 (135-145) mmol/L Potassium Cancelled (3.3-5.1) mmol/L Chloride (96-108) mmol/L Carbon Dioxide (22-29) mmol/L Anion Gap (12-20) BUN (9-16) mg/dL Creatinine (0.5-1.4) mg/dL Estim Creat Clear Calc Estimated GFR POC Glucose 89 (60-115) mg/dL Random Glucose (60-115) mg/dL Calcium (8.4-10.2) mg/dL Magnesium (1.6-2.6) mg/dL Total Bilirubin (0.0-1.0) mg/dL Direct Bilirubin (0.0-0.5) mg/dL AST (5-31) U/L ALT (0-31) U/L Alkaline Phosphatase (39-117) U/L Total Protein (6.5-8.0) g/dL Albumin (3.5-5.0) g/dL TSH (0.32-4.0) uIU/mL Free T4 (0.71-1.85) ng/dL Urine Color Urine Appearance Urine pH (5.0-9.0) Ur Specific Evangeline (1.005-1.025) Urine Protein (Neg-Trace) mg/dL Urine Glucose (UA) (Negative) mg/dL Urine Ketones (Negative) mg/dL Urine Blood (Negative) Urine Nitrite (Negative) Ur Leukocyte Esterase (Negative) Urine RBC (0-2) /HPF Urine WBC (0-5) /HPF Ur Squamous Epith Cells (0-2) /HPF Urine Bacteria (None Seen) Hyaline Casts (0-2) /LPF Urine Opiates Screen (Not Detect) Ur Buprenorphine Scrn (Not Detect) ng/mL Ur Oxycodone Screen (Not Detect) ng/mL Urine Methadone Screen (Not Detect) ng/mL Urine Fentanyl Screen (Not Detect) Ur Barbiturates Screen (Not Detect) Valproic Acid (50.0-100.0) mcg/mL Ur Phencyclidine Scrn (Not Detect) Ur Amphetamines Screen (Not Detect) U Benzodiazepines Scrn (Not Detect) Urine Cocaine Screen (Not Detect) U Marijuana (THC) Screen (Not Detect) 04/11/25 04/11/25 04/11/25 Range/Units 08:31 08:31 08:31 WBC (4.8-10.8) X10*3/uL RBC (4.20-5.50) X10*6/uL Hgb (12.0-16.0) g/dl Hct (37.0-47.0) % MCV (80.0-98.0) fL MCH (27.0-33.0) pg MCHC (31.0-35.0) g/dl RDW (11.0-16.0) % Plt Count MPV (9.4-12.3) fL Immature Gran % (Auto) (0.0-0.4) % Neut % (Auto) (45-73) % Lymph % (Auto) (20-40) % Harris % (Auto) (2-11) % Eos % (Auto) (0-4) % Baso % (Auto) (0-2) % Lymph # (Auto) (1.2-4.9) X10*3/uL Harris # (Auto) (0.1-1.2) X10*3/uL Eos # (Auto) (0.0-0.4) X10*3/uL Baso # (Auto) (0.0-0.2) X10*3/uL Abs Immat Gran (auto) (0.00-0.03) X10*3/uL Absolute Neuts (auto) (2.0-8.3) x10*3/uL Absolute Nucleated RBC (0.0-0.012) X10*3/uL Nucleated RBC % (auto) (0.0-0.2) /100WBC Smear Tech's Comments Sodium (135-145) mmol/L Potassium 4.1 (3.3-5.1) mmol/L Chloride Cancelled 97 (96-108) mmol/L Carbon Dioxide Cancelled 33 H (22-29) mmol/L Anion Gap Cancelled (12-20) BUN (9-16) mg/dL Creatinine (0.5-1.4) mg/dL Estim Creat Clear Calc Estimated GFR POC Glucose (60-115) mg/dL Random Glucose (60-115) mg/dL Calcium (8.4-10.2) mg/dL Magnesium (1.6-2.6) mg/dL Total Bilirubin (0.0-1.0) mg/dL Direct Bilirubin (0.0-0.5) mg/dL AST (5-31) U/L ALT (0-31) U/L Alkaline Phosphatase (39-117) U/L Total Protein (6.5-8.0) g/dL Albumin (3.5-5.0) g/dL TSH (0.32-4.0) uIU/mL Free T4 (0.71-1.85) ng/dL Urine Color Urine Appearance Urine pH (5.0-9.0) Ur Specific Evangeline (1.005-1.025) Urine Protein (Neg-Trace) mg/dL Urine Glucose (UA) (Negative) mg/dL Urine Ketones (Negative) mg/dL Urine Blood (Negative) Urine Nitrite (Negative) Ur Leukocyte Esterase (Negative) Urine RBC (0-2) /HPF Urine WBC (0-5) /HPF Ur Squamous Epith Cells (0-2) /HPF Urine Bacteria (None Seen) Hyaline Casts (0-2) /LPF Urine Opiates Screen (Not Detect) Ur Buprenorphine Scrn (Not Detect) ng/mL Ur Oxycodone Screen (Not Detect) ng/mL Urine Methadone Screen (Not Detect) ng/mL Urine Fentanyl Screen (Not Detect) Ur Barbiturates Screen (Not Detect) Valproic Acid (50.0-100.0) mcg/mL Ur Phencyclidine Scrn (Not Detect) Ur Amphetamines Screen (Not Detect) U Benzodiazepines Scrn (Not Detect) Urine Cocaine Screen (Not Detect) U Marijuana (THC) Screen (Not Detect) 04/11/25 04/11/25 04/11/25 Range/Units 08:31 08:31 08:31 WBC (4.8-10.8) X10*3/uL RBC (4.20-5.50) X10*6/uL Hgb (12.0-16.0) g/dl Hct (37.0-47.0) % MCV (80.0-98.0) fL MCH (27.0-33.0) pg MCHC (31.0-35.0) g/dl RDW (11.0-16.0) % Plt Count MPV (9.4-12.3) fL Immature Gran % (Auto) (0.0-0.4) % Neut % (Auto) (45-73) % Lymph % (Auto) (20-40) % Harris % (Auto) (2-11) % Eos % (Auto) (0-4) % Baso % (Auto) (0-2) % Lymph # (Auto) (1.2-4.9) X10*3/uL Harris # (Auto) (0.1-1.2) X10*3/uL Eos # (Auto) (0.0-0.4) X10*3/uL Baso # (Auto) (0.0-0.2) X10*3/uL Abs Immat Gran (auto) (0.00-0.03) X10*3/uL Absolute Neuts (auto) (2.0-8.3) x10*3/uL Absolute Nucleated RBC (0.0-0.012) X10*3/uL Nucleated RBC % (auto) (0.0-0.2) /100WBC Smear Tech's Comments Sodium (135-145) mmol/L Potassium (3.3-5.1) mmol/L Chloride (96-108) mmol/L Carbon Dioxide (22-29) mmol/L Anion Gap 10 L (12-20) BUN Cancelled 16 (9-16) mg/dL Creatinine Cancelled 0.70 (0.5-1.4) mg/dL Estim Creat Clear Calc Cancelled Estimated GFR POC Glucose (60-115) mg/dL Random Glucose (60-115) mg/dL Calcium (8.4-10.2) mg/dL Magnesium (1.6-2.6) mg/dL Total Bilirubin (0.0-1.0) mg/dL Direct Bilirubin (0.0-0.5) mg/dL AST (5-31) U/L ALT (0-31) U/L Alkaline Phosphatase (39-117) U/L Total Protein (6.5-8.0) g/dL Albumin (3.5-5.0) g/dL TSH (0.32-4.0) uIU/mL Free T4 (0.71-1.85) ng/dL Urine Color Urine Appearance Urine pH (5.0-9.0) Ur Specific Evangeline (1.005-1.025) Urine Protein (Neg-Trace) mg/dL Urine Glucose (UA) (Negative) mg/dL Urine Ketones (Negative) mg/dL Urine Blood (Negative) Urine Nitrite (Negative) Ur Leukocyte Esterase (Negative) Urine RBC (0-2) /HPF Urine WBC (0-5) /HPF Ur Squamous Epith Cells (0-2) /HPF Urine Bacteria (None Seen) Hyaline Casts (0-2) /LPF Urine Opiates Screen (Not Detect) Ur Buprenorphine Scrn (Not Detect) ng/mL Ur Oxycodone Screen (Not Detect) ng/mL Urine Methadone Screen (Not Detect) ng/mL Urine Fentanyl Screen (Not Detect) Ur Barbiturates Screen (Not Detect) Valproic Acid (50.0-100.0) mcg/mL Ur Phencyclidine Scrn (Not Detect) Ur Amphetamines Screen (Not Detect) U Benzodiazepines Scrn (Not Detect) Urine Cocaine Screen (Not Detect) U Marijuana (THC) Screen (Not Detect) 04/11/25 04/11/25 04/11/25 Range/Units 08:31 08:31 08:31 WBC (4.8-10.8) X10*3/uL RBC (4.20-5.50) X10*6/uL Hgb (12.0-16.0) g/dl Hct (37.0-47.0) % MCV (80.0-98.0) fL MCH (27.0-33.0) pg MCHC (31.0-35.0) g/dl RDW (11.0-16.0) % Plt Count MPV (9.4-12.3) fL Immature Gran % (Auto) (0.0-0.4) % Neut % (Auto) (45-73) % Lymph % (Auto) (20-40) % Harris % (Auto) (2-11) % Eos % (Auto) (0-4) % Baso % (Auto) (0-2) % Lymph # (Auto) (1.2-4.9) X10*3/uL Harris # (Auto) (0.1-1.2) X10*3/uL Eos # (Auto) (0.0-0.4) X10*3/uL Baso # (Auto) (0.0-0.2) X10*3/uL Abs Immat Gran (auto) (0.00-0.03) X10*3/uL Absolute Neuts (auto) (2.0-8.3) x10*3/uL Absolute Nucleated RBC (0.0-0.012) X10*3/uL Nucleated RBC % (auto) (0.0-0.2) /100WBC Smear Tech's Comments Sodium (135-145) mmol/L Potassium (3.3-5.1) mmol/L Chloride (96-108) mmol/L Carbon Dioxide (22-29) mmol/L Anion Gap (12-20) BUN (9-16) mg/dL Creatinine (0.5-1.4) mg/dL Estim Creat Clear Calc 76.1 Estimated GFR Cancelled > 60 POC Glucose (60-115) mg/dL Random Glucose Cancelled 106 (60-115) mg/dL Calcium Cancelled (8.4-10.2) mg/dL Magnesium (1.6-2.6) mg/dL Total Bilirubin (0.0-1.0) mg/dL Direct Bilirubin (0.0-0.5) mg/dL AST (5-31) U/L ALT (0-31) U/L Alkaline Phosphatase (39-117) U/L Total Protein (6.5-8.0) g/dL Albumin (3.5-5.0) g/dL TSH (0.32-4.0) uIU/mL Free T4 (0.71-1.85) ng/dL Urine Color Urine Appearance Urine pH (5.0-9.0) Ur Specific Evangeline (1.005-1.025) Urine Protein (Neg-Trace) mg/dL Urine Glucose (UA) (Negative) mg/dL Urine Ketones (Negative) mg/dL Urine Blood (Negative) Urine Nitrite (Negative) Ur Leukocyte Esterase (Negative) Urine RBC (0-2) /HPF Urine WBC (0-5) /HPF Ur Squamous Epith Cells (0-2) /HPF Urine Bacteria (None Seen) Hyaline Casts (0-2) /LPF Urine Opiates Screen (Not Detect) Ur Buprenorphine Scrn (Not Detect) ng/mL Ur Oxycodone Screen (Not Detect) ng/mL Urine Methadone Screen (Not Detect) ng/mL Urine Fentanyl Screen (Not Detect) Ur Barbiturates Screen (Not Detect) Valproic Acid (50.0-100.0) mcg/mL Ur Phencyclidine Scrn (Not Detect) Ur Amphetamines Screen (Not Detect) U Benzodiazepines Scrn (Not Detect) Urine Cocaine Screen (Not Detect) U Marijuana (THC) Screen (Not Detect) 04/11/25 04/11/25 04/11/25 Range/Units 08:31 12:59 16:30 WBC (4.8-10.8) X10*3/uL RBC (4.20-5.50) X10*6/uL Hgb (12.0-16.0) g/dl Hct (37.0-47.0) % MCV (80.0-98.0) fL MCH (27.0-33.0) pg MCHC (31.0-35.0) g/dl RDW (11.0-16.0) % Plt Count MPV (9.4-12.3) fL Immature Gran % (Auto) (0.0-0.4) % Neut % (Auto) (45-73) % Lymph % (Auto) (20-40) % Harris % (Auto) (2-11) % Eos % (Auto) (0-4) % Baso % (Auto) (0-2) % Lymph # (Auto) (1.2-4.9) X10*3/uL Harris # (Auto) (0.1-1.2) X10*3/uL Eos # (Auto) (0.0-0.4) X10*3/uL Baso # (Auto) (0.0-0.2) X10*3/uL Abs Immat Gran (auto) (0.00-0.03) X10*3/uL Absolute Neuts (auto) (2.0-8.3) x10*3/uL Absolute Nucleated RBC (0.0-0.012) X10*3/uL Nucleated RBC % (auto) (0.0-0.2) /100WBC Smear Tech's Comments Sodium (135-145) mmol/L Potassium (3.3-5.1) mmol/L Chloride (96-108) mmol/L Carbon Dioxide (22-29) mmol/L Anion Gap (12-20) BUN (9-16) mg/dL Creatinine (0.5-1.4) mg/dL Estim Creat Clear Calc Estimated GFR POC Glucose 183 H (60-115) mg/dL Random Glucose (60-115) mg/dL Calcium 8.5 (8.4-10.2) mg/dL Magnesium (1.6-2.6) mg/dL Total Bilirubin 0.5 (0.0-1.0) mg/dL Direct Bilirubin (0.0-0.5) mg/dL AST 13 (5-31) U/L ALT 16 (0-31) U/L Alkaline Phosphatase 70 (39-117) U/L Total Protein 5.8 L (6.5-8.0) g/dL Albumin 3.3 L (3.5-5.0) g/dL TSH (0.32-4.0) uIU/mL Free T4 (0.71-1.85) ng/dL Urine Color Yellow Urine Appearance Clear Urine pH 8.0 (5.0-9.0) Ur Specific Evangeline 1.015 (1.005-1.025) Urine Protein Negative (Neg-Trace) mg/dL Urine Glucose (UA) 250 H (Negative) mg/dL Urine Ketones Trace (Negative) mg/dL Urine Blood Negative (Negative) Urine Nitrite Negative (Negative) Ur Leukocyte Esterase Small (1+) H (Negative) Urine RBC 0-2 (0-2) /HPF Urine WBC 11-20 H (0-5) /HPF Ur Squamous Epith Cells 0-2 (0-2) /HPF Urine Bacteria 4+ (None Seen) Hyaline Casts 0-2 (0-2) /LPF Urine Opiates Screen Not Detected (Not Detect) Ur Buprenorphine Scrn Not Detected (Not Detect) ng/mL Ur Oxycodone Screen Not Detected (Not Detect) ng/mL Urine Methadone Screen Not Detected (Not Detect) ng/mL Urine Fentanyl Screen Not Detected (Not Detect) Ur Barbiturates Screen Not Detected (Not Detect) Valproic Acid (50.0-100.0) mcg/mL Ur Phencyclidine Scrn Not Detected (Not Detect) Ur Amphetamines Screen Not Detected (Not Detect) U Benzodiazepines Scrn Not Detected (Not Detect) Urine Cocaine Screen Not Detected (Not Detect) U Marijuana (THC) Screen Not Detected (Not Detect) Independent Interpretation I performed an independent interpretation of an: EKG and CT Scan (normal ) Interpretation: Rate: 79 Rhythm: NSR Rienzi: left, LVH Normal P waves. Normal SUDHA. Normal QRS complex. ST T wave : normal no TYRA qTC: 419 prior studies: no acute ischemia The study has been interpreted contemporaneously by me. . Radiology Impression Discussion of test interpretation with radiology: I have reviewed the radiologist's reading. External Record Review External record reviewed: Outpatient record Discharge Plan Discharge Clinical Impression: Weakness, Schizophrenia Patient Disposition: Admitted As Inpatient Discharge Date/Time: 04/11/25 17:49
--- OUTSIDE RECORDS SUMMARY | 2025-04-10 18:26 | XMS_ITS | Data Portability ---
Author Organization [facility], autoContract Address [address] [place] [address] Assessment No assessment recorded. Plan of Treatment Reminders Order Date Submit Date Provider Last Modified By Organization Details Last Modified Time Details Appointments None recorded. Lab None recorded. Referral None recorded. Procedures None recorded. Surgeries None recorded. Imaging None recorded. Medication Orders ammonium lactate 12 % lotion [address] [facility] #[id number], [address] [facility], [place], [address], 15:37:21 Patient TargetsNo targets recorded. Patient Instructions Encounter Date Encounter Id Patient Instructions Last Modified By Organization Details Last Modified Time 10/18/2020 [id number] 1.) Office visit with DM foot exam [...] regular follow up evaluation by PCP and/or fish farm manager. 6.) Return 3 months for DM check up and comprehensive foot care, sooner if problems. Not available 10/18/2020 12:32:14 01/28/2021 [id number] 1.) Office visit with DM foot exam [...] regular follow up evaluation by PCP and/or fish farm manager. 6.) Return 3 months for DM check up and comprehensive foot care, sooner if problems. Not available 01/28/2021 15:01:30 02/18/2021 [id number] Warranty/Receipt New shoe break-in period Wear your [...] basis. [email or web address] Not available 10/18/2021 09:50:05 05/06/2021 [id number] 1.) Office visit with DM foot exam [...] regular follow up evaluation by PCP and/or fish farm manager. 6.) Return 3 months for DM check up and comprehensive foot care, sooner if problems. Not available 05/07/2021 08:22:47 08/09/2021 [id number] dedo en martillo : instrucciones de cuidado [...] regular follow up evaluation by PCP and/or fish farm manager. 6.) Return 3 months for DM check up and comprehensive foot care, sooner if problems. I am prescribin. 1 Left and 1 Right - [employer] Medley S325-1 Black, Hook & Loop depth-inlay [...] Address Organization Details Recorded Time Diabetes mellitus 25436518 Active Min Rogers DPM [address] [place], [address], [facility] - [employer] [facility] 5 12:50:43 Uncontrolle d type 2 diabetes mellitus 927352670 Completed 01/21/2018 Min Rogers DPM [address] [place], [address], [employer] [facility] 8 13:27:22 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 288446650 Active Min Rogers DPM [address] [place], [address], [facility] [employer] [facility] 5 12:39:04 Ingrowing nail 519916137 Active Min Rogers DPM [address] [place], [address], [facility] 5 12:39:04 Edema 350147775 Active Min Rogers DPM [address] [place], [address], [facility] - [employer] [facility] 5 13:32:56 Peripheral venous insufficien cy 45953267 Active Min Rogers DPM [address] [place], [address], [facility] [employer] [facility] 5 13:32:56 Pain in limb 13596963 Active Min Rogers DPM [address] [place], [address], [facility] [employer] [facility] 5 12:39:04 Hammer toe 925034686 Active Min Rogers DPM [address] [place], [address], [facility] [employer] [facility] 5 12:50:43 Acquired cavus deformity of foot 96202807 Active Min Rogers DPM [address] [place], [address], [facility] - [employer] [facility] 5 12:50:43 Disorder o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 mellitus 604264163 Active 2017 Min Rogers DPM [address] [place], [address], [employer] [facility] [employer] [facility] 8 13:27:17 Overweight 539625371 Active 2019 Min Rogers DPM [address] [place], [address], [employer] [facility] 0 17:15:07 Problem Notes None recorded. Procedures Surgical History Date Name Laterality Status Provider Name and Address Organization Details Recorded Time 1 Nail Debridement completed Min Rogers DPM [address] [place], [address], [facility] - [employer] [facility] 08/09/2021 15:47:04 1 Nail Debridement completed Min Rogers DPM [address] [place], [address], [facility] - [employer] [facility] 05/07/2021 08:22:47 1 Nail Debridement completed Min Rogers DPM [address] [place], [address], [facility] [employer] [facility] 01/28/2021 15:00:03 1 Nail Debridement completed Min Rogers DPM [address] [place], [address], [facility] [employer] [facility] 10/18/2020 12:32:14 0 Nail Debridement completed Min Rogers DPM [address] [place], [address], [facility] [employer] [facility] 07/16/2020 12:25:52 0 Nail Debridement completed Min Rogers DPM [address] [place], [address], [facility] [employer] [facility] 04/12/2020 11:12:51 0 Nail Debridement completed Min Rogers DPM [address] [place], [address], [facility] 01/26/2020 15:11:05 0 Nail Debridement completed Min Rogers DPM [address] [place], [address], [facility] [employer] 10/31/2019 09:07:59 9 Nail Debridement completed Min Rogers DPM [address] [place], [address], [facility] [employer] 08/26/2019 16:10:32 9 Cortisone Injection completed Min Rogers DPM [address] [place], [address], [facility] [employer] 06/09/2019 08:55:55 9 Nail Debridement completed Min Rogers DPM [address] [place], [address], [facility] [employer] 06/09/2019 09:15:28 9 Nail Debridement completed Min Rogers DPM [address] [place], [address], [facility] [employer] 03/10/2019 13:36:34 9 Nail Debridement completed Min Rogers DPM [address] [place], [address], [facility] [employer] 12/28/2018 09:42:50 9 Nail Debridement completed Min Rogers DPM [address] [place], [address], [facility] [employer] 10/19/2018 13:15:54 8 Cortisone Injection completed Min Rogers DPM [address] [place], [address], [facility] [employer] 07/29/2018 11:08:29 8 Nail Debridement completed Min Rogers DPM [address] [facility], [place], [address], [facility] 07/29/2018 13:09:03 8 Nail Debridement completed Min Rogers DPM [address] [facility], [place], [address], [facility] 05/13/2018 10:01:58 8 Nail Debridement completed Min Rogers DPM [address] [facility], [place], [address], [facility] 03/04/2018 09:31:43 8 Nail Debridement completed Min Rogers DPM [address] [place], [address], [facility] [employer] 11/26/2017 14:37:36 5 Nail Debridement completed Min Rogers DPM [address] [place], [address], [facility] [employer] 02/01/2015 12:39:04 5 Nail Debridement completed Min Rogers DPM [address] [facility], [place], [address], [facility] [employer] 10/31/2014 13:32:39 4 Nail Debridement completed Min Rogers DPM [address] [place], [address], [facility] [employer] 08/03/2014 10:36:36 4 Nail Debridement completed Min Rogers DPM [address] [facility], [place], [address], [facility] [employer] 05/11/2014 10:36:07 4 Nail Debridement completed Min Rogers DPM [address] [place], [address], [facility] 02/20/2014 09:20:10 4 Nail Debridement completed Gregor Mckeon [place] - [facility] 12/07/2013 17:55:59 3 Nail Debridement completed [facility] 08/15/2013 18:15:52 3 Nail Debridement completed Min Rogers DPM [address] [place], [address], [facility] 05/08/2013 13:57:00 3 Nail Debridement completed Min Rogers DPM [address] [place], [address], [facility] 02/03/2013 13:55:58 3 Nail Debridement completed Min Rogers DPM [address] [place], [address], [facility] 11/15/2012 12:39:57 Imaging Results None recorded. Procedure Notes None recorded. Medical Equipment None Reported. Allergies Allergen ID Allergen Name Allergen Category Reaction Reaction Severity Criticality Documentation Date Start Date Code Code System Note Provider Name and Address Organization Details Recorded Time 921 Product containin g penicilli n (product) medicatio n Not available Not available Not available 10/14/2012 [address] [facility] 3 15:13:05 Medications Name Sig [...] Available Not Available No t Available [employer] [place] Lite kit active Not Available Not Available [...] 157.48 cm Min Rogers, SEDRICKM [address] [place], [address], [employer] 10/18/2020 11:14:48 Date Recorded Body height Provider Name an d Address Organization Details Last Updated DateTime 01/28/2021 157.48 cm Min Rogers, SEDRICKM [address] [place], [address], [employer] 01/28/2021 14:38:33 Date Recorded Body height Provider Name an d Address Organization Details Last Updated DateTime 02/18/2021 157.48 cm Min Rogers, SEDRICKM [address] [place], [address], [place] [employer] 10/18/2021 09:42:13 Date Recorded Body height Provider Name an d Address Organization Details Last Updated DateTime 05/06/2021 157.48 cm Min Rogers, SEDRICKM [address] [place], [address], [place] [employer] 05/06/2021 16:15:17 Date Recorded Body height Provider Name an d Address Organization Details Last Updated DateTime 08/09/2021 157.48 cm Min Rogers, SEDRICKM [address] [place], [address], [place] [facility] 08/09/2021 15:31:11 Social History Question Answer Notes LastModified by Organizat ion Details LastModified Time Tobacco Smoking Status Never Smoker Not Available [employer] 07/06/2020 03:15:47 Are You Blind Or Do You Have Difficulty Seeing? No [id number] Information not available 07/06/2020 Are You Deaf Or Do You Have Serious Difficulty Hearing? No [id number] Information not available 07/06/2020 Which Illicit Or Recreational Drugs Have You Used? Never [id number] Information not available 07/06/2020 Marital Status [email or web address] Informatio n not available 10/17/2012 What Was The Date Of Your Most Recent Tobacco Screening? 12/28/2018 [id number] Information not available 07/06/2020 Do You Have Difficulty Walking Or Climbing Stairs? No [id number] Information not available 07/06/2020 Sex: Unknown Functional Status Question Answer Note LastModified by Organizat ion Details LastModified Time What is your level of alcohol consumption? None [id number] Information not available 07/06/2020 Do you have difficulty doing errands alone? No [id number] Information not available 07/06/2020 What is your occupation? Disabled - Mental Illness [id number] Information not available 07/06/2020 Do you have difficulty dressing or bathing? No [id number] Information not available 07/06/2020 Mental Status Question Answer Note LastModified by Organization D etails LastModified Time Do you have difficulty concentrating, remembering or making decisions? No [id number] Information no t available 07/06/2020 Family History [...] Code Diagnosis Note 1661 Min Rogers DPM [facility] [place] [address] [place] [address] 10/14/2012 15:09:24 10/18/2012 09:39:25 3202 Min Rogers DPM [facility] [address] [place] [address] 11/11/2012 13:38:31 11/15/2012 16:52:19 7753 Min Rogers [facility] [address] [place] [address] 02/03/2013 13:22:42 02/03/2013 14:21:55 9796 Min Rogers [facility] [address] [place] [address] 05/06/2013 13:22:19 05/06/2013 13:57:43 21956 Min Rogers Danny [facility] [address] [place] [address] 08/15/2013 10:36:55 08/15/2013 11:25:59 Uncontrolled type 2 diabetes mellitus 614450547 Ingrowing nail 302863469 Pain in limb 26847242 Onychomyco sis due to dermatophyte 893790056 Peripheral venous insufficiency 98007194 Edema 095868734 Acquired c avus deformity of foot 88980807 Hammer toe 302754489 04610 Min Rogers DPM [facility] [address] [place] [address] 10/05/2013 11:52:21 10/05/2013 12:01:29 Uncontrolled type 2 diabetes mellitus 804901675 Hammer toe 001854520 10517 [facility] [address] [place] [address] 12/07/2013 12:16:56 12/07/2013 12:42:09 Uncontrolled type 2 diabetes mellitus 196075612 Hammer toe 972188318 Onychomyco sis due to dermatophyte 446963947 Pain in limb 02409812 Ingrowing nail 489265048 75994 Min Rogers [facility] [address] [place] [address] 02/16/2014 09:54:34 02/16/2014 10:32:43 Onychomycosis due to dermatophyte 734007573 Ingrowing nail 131643651 Pain in limb 80919915 Diabetes mellitus 52088005 Peripheral venous insufficiency 36109592 Edema 167567727 Acquired c avus deformity of foot 96255608 Hammer toe 044062677 68475 Min Rogers DPM [facility] [address] [address] 05/11/2014 10:23:52 05/11/2014 10:24:21 Onychomycosis due to dermatophyte 049418281 Ingrowing nail 282554784 Pain in limb 58160429 Diabetes mellitus 55738954 Peripheral venous insufficiency 65710948 Edema 166355250 Acquired c avus deformity of foot 62080120 Hammer toe 232649256 62125 Min Rogers DPM [facility] [address] [address] 08/03/2014 09:27:24 08/03/2014 10:21:02 Onychomycosis due to dermatophyte 368163298 Ingrowing nail 096560126 Pain in limb 84840114 Diabetes mellitus 42104788 Peripheral venous insufficiency 05100300 Edema 084128405 Acquired c avus deformity of foot 38157463 Hammer toe 573610467 84178 Min Rogers DPM [facility] [address] [address] 10/27/2014 09:16:37 10/27/2014 10:30:34 Onychomycosis due to dermatophyte 242578347 Ingrowing nail 845117860 Pain in limb 32633385 Diabetes mellitus 27186277 Peripheral venous insufficiency 83420531 Edema 254792121 Acquired c avus deformity of foot 59312204 Hammer toe 665506250 60665 Min Rogers DPM [facility] [address] [address] 11/02/2014 13:10:07 11/02/2014 13:21:56 Hammer toe 359718288 Acquired c avus deformity of foot 25030513 Uncontroll ed type 2 diabetes mellitus 707144272 59700 Min Rogers DPM [facility] [address] [address] 11/13/2014 12:15:16 11/13/2014 12:33:38 Acquired cavus deformity of foot 28780784 Diabetes mellitus 26563365 Hammer toe 375843332 70045 Min Rogers DPM [facility] [address] [address] 01/18/2015 13:54:36 01/18/2015 14:06:52 Onychomycosis due to dermatophyte 526280711 Ingrowing nail 660899869 Pain in limb 06785219 Uncontroll ed type 2 diabetes mellitus 261940558 82002 Min Rogers DPM [facility] [address] [place] [address] 11/26/2017 10:25:50 11/26/2017 11:21:38 Overweight 930339362 E66.3 Ingrowing nail 387852738 L60.0 Pain in toe 832356217 M7 9.676 Disorder o 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 mellitus 182999901 E11.49 Hammer toe 428720445 M20 .41 M20.42 Onychomycosis 966399715 B35.1 39346 Min Rogers DPM [facility] [address] [place] [address] 01/21/2018 13:25:31 01/21/2018 13:28:43 Disorder o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 mellitus 392609947 E11.49 Hammer toe 095978557 M20 .41 M20.42 65156 Min Rogers DPM [facility] [address] [place] [address] 02/17/2018 11:45:01 02/17/2018 12:02:11 Disorder o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 mellitus 020520068 E11.49 Hammer toe 630870002 M20 .41 M20.42 03228 Min Rogers DPM [facility] [address] [place] [address] 03/04/2018 08:59:26 03/04/2018 09:00:37 Onychomycosis due to dermatophyte 479840475 B35.1 Ingrowing nail 082345637 L60.0 Pain in limb 87394172 M7 9.609 Uncontroll ed type 2 diabetes mellitus 666122792 E11.65 92511 Min Rogers DPM [facility] [address] [place] [address] 05/13/2018 09:31:40 05/13/2018 09:56:12 Ingrowing nail 132537192 L60.0 Pain in limb 98147131 M7 9.609 Uncontroll ed type 2 diabetes mellitus 208474750 E11.65 Onychomycosis 486292489 B35.1 Obese 758289479 E66.9 94153 Min Rogers DPM [facility] [address] [place] [address] 07/29/2018 11:05:10 07/29/2018 11:15:42 Arthritis of right subtalar joint 4593585487 6351873 M13.871 Pain of ri ght ankle joint 7118353441 5286542 M25.571 Onychomycosis 823802481 B35.1 Ingrowing nail 789946655 L60.0 Uncontroll ed type 2 diabetes mellitus 671490094 E11.65 Obese 891676157 E66.9 Plantar fasciitis 096554 003 M72.2 Pain in toe 001899843 M7 9.676 30755 Min Rogers DPM [facility] [address] [place] [address] 08/02/2018 09:02:54 08/02/2018 09:39:55 Foot pain 97651821 M79.671 Arthritis of right subtalar joint 4090312476 2381916 M13.871 Plantar fasciitis 190095 003 M72.2 Onychomycosis 442142672 B35.1 Ingrowing nail 862908417 L60.0 Pain in toe 828452838 M7 9.676 Uncontroll ed type 2 diabetes mellitus 983684139 E11.65 Obese 140433542 E66.9 47423 Min Rogers DPM [facility] [address] [place] [address] 08/10/2018 11:41:12 08/10/2018 12:40:42 Plantar fasciitis 884215299 M72.2 Foot pain 14006360 M79.6 71 M79.672 79505 Min Rogers DPM [facility] [address] [place] [address] 10/19/2018 11:14:44 10/19/2018 13:16:01 Onychomycosis 168104649 B35.1 Ingrowing nail 540181921 L60.0 Pain in limb 02138945 M7 9.609 Uncontroll ed type 2 diabetes mellitus 903382752 E11.65 Obese 667520581 E66.9 03222 Min Rogers DPM [facility] [address] [place] [address] 12/28/2018 08:27:54 12/28/2018 09:22:02 Onychomycosis 559470178 B35.1 Ingrowing nail 444184297 L60.0 Pain in limb 37144824 M7 9.609 Uncontroll ed type 2 diabetes mellitus 938163493 E11.65 Obese 520354925 E66.9 28460 Min Rogers DPM [facility] [address] [place] [address] 03/10/2019 11:30:47 03/10/2019 12:35:36 Onychomycosis 505969460 B35.1 Ingrowing nail 818656306 L60.0 Pain in limb 91610183 M7 9.609 Uncontroll ed type 2 diabetes mellitus 541551294 E11.65 Obese 160392603 E66.9 01465 Min Rogers DPM [facility] [address] [place] [address] 06/09/2019 08:31:13 06/09/2019 09:28:11 Onychomycosis 542860982 B35.1 Ingrowing nail 189116224 L60.0 Pain in limb 86215112 M7 9.609 Uncontroll ed type 2 diabetes mellitus 576465786 E11.65 Obese 898884756 E66.9 Osteoarthr itis of subtalar joint 787863483 M19.072 Foot pain 16143869 M79.6 72 50447 Min Rogers DPM [facility] [address] [place] [address] 08/26/2019 15:57:18 08/26/2019 16:06:24 Overweight 411234943 E66.3 Onychomycosis 867915185 B35.1 Ingrowing nail 017949727 L60.0 Uncontroll ed type 2 diabetes mellitus 752021459 E11.65 Pain in toe 288430444 M7 9.676 93011 Min Rogers DPM [facility] [address] [place] [address] 10/31/2019 08:53:06 10/31/2019 09:32:13 Onychomycosis 318598899 B35.1 Ingrowing nail 438235582 L60.0 Pain in toe 377195829 M7 9.676 Overweight 444580638 E66 .3 Disorder o 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 mellitus 404650625 E11.49 Hammer toe 105149676 M20 .41 M20.42 75515 SEDRICK Villavicencio [facility] [address] [place] [address] 12/19/2019 17:27:14 12/19/2019 17:36:09 Disorder o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 mellitus 566251726 E11.49 Hammer toe 060391357 M20 .41 M20.42 07083 Min Rogers DPM [facility] [address] [place] [address] 01/26/2020 13:22:34 01/26/2020 15:00:52 Onychomycosis 579333456 B35.1 Ingrowing nail 247224838 L60.0 Pain in toe 717447852 M7 9.676 Disorder o 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 mellitus 410493269 E11.49 Hammer toe 629800313 M20 .41 M20.42 Overweight 865606121 E66 .3 68800 Min Rogers DPM [facility] [address] [place] [address] 04/12/2020 11:04:10 04/12/2020 11:16:03 Onychomycosis 668022762 B35.1 Ingrowing nail 980206904 L60.0 Pain in toe 791169231 M7 9.676 Disorder o 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 mellitus 981500615 E11.49 Hammer toe 859838037 M20 .41 M20.42 Overweight 789597690 E66 .3 15429 Min Rogers DPM [facility] [address] [place] [address] 07/16/2020 12:08:06 07/16/2020 12:20:12 Onychomycosis 059637700 B35.1 Ingrowing nail 277613360 L60.0 Pain in toe 954438419 M7 9.676 Disorder o 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 mellitus 827424659 E11.49 Hammer toe 152306090 M20 .41 M20.42 Overweight 956090621 E66 .3 10984 SEDRICK Villavicencio [facility] [address] [place] [address] 7 10/18/2020 11:06:15 10/18/2020 11:53:04 Onychomycosis 295365883 B35.1 Ingrowing nail 362737001 L60.0 Pain in toe 751561212 M7 9.676 Disorder o 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 mellitus 777346197 E11.49 Hammer toe 332334811 M20 .41 M20.42 Overweight 457708393 E66 .3 83334 SEDRICK Villavicencio [facility] [address] [place] [address] 7 01/28/2021 14:36:07 01/28/2021 14:49:01 Onychomycosis 943773485 B35.1 Ingrowing nail 724691121 L60.0 Pain in toe 111320066 M7 9.676 Disorder o 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 mellitus 861892267 E11.49 Obesity 265840779 E66.9 55868 Min Rogers DPM [facility] [address] [place] [address] 7 05/06/2021 16:07:24 05/06/2021 16:26:10 Onychomycosis 124632473 B35.1 Ingrowing nail 957401460 L60.0 Pain in toe 220316877 M7 9.676 Disorder o 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 mellitus 819518495 E11.49 Obesity 032872982 E66.9 15840 Min Rogers DPM [facility] [address] [place] [address] 7 08/09/2021 15:26:42 08/09/2021 15:31:37 Foot callus 810741260 L84 Onychomycosis 698007192 B35.1 Ingrowing nail 128416408 L60.0 Pain in toe 394845062 M7 9.676 Disorder o 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 mellitus 424683341 E11.49 Obesity 017685349 E66.9 Hammer toe 542443714 M20 .41 M20.42 60408 Min Rogers DPM [facility] [address] [place] [address] 10/18/2021 09:41:46 10/18/2021 09:52:37 Disorder o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 mellitus 833880796 E11.49 Hammer toe 502768243 M20 .41 M20.42 Health Concerns Section Related Observation LastModified by Organization Detai ls LastModified Time None Recorded Concern Status LastModified by Organization Details LastModified Time None Recorded Advance Directives Directive None Recorded Payers Insurance Date Sequence Insurance Name Policy Number Policy Orozco Covered Member ID Orozco Member ID Guarantor Name 10/18/2021 1 [place] Bessie Alfonso [id number] Bessie Alfonso 06/09/2019 1 [facility] (MEDICAID HMO) [id number] Bessie Alfonso [id number] Bessie Alfonso 06/09/2019 1 [place] Bessie Alfonso [id number] Bessie Alfonso 10/18/2021 1 [facility] DOS PRIOR TO 2022 (MEDICAID REPLACEMENT - HMO) [facility] [id number] Bessie Alfonso Notes Date Note Type Note [...] coronavirus COVID-19 disease. Min Rogers DPM [address] [place], [id number], [facility] 10/18/2020 12:33:21 01/28/2021 text/html Bessie [...] disease (fully vaccinated). Min Rogers DPM [address] [place], [id number], [facility] 01/28/2021 15:02:07 05/06/2021 text/html Bessie [...] disease (fully vaccinated). Min Rogers DPM [address] [place], [id number], [facility] 05/07/2021 08:23:15 08/09/2021 text/html Bessie presents f [...] coronavirus COVID-19 disease (vaccinated). Min Rogers DPM [address] [place], [id number], [facility] 08/19/2021 12:11:02 OBGyn Episode No OBEpisode recorded.
[2025-04-10 18:53] LABS: Glucose, Whole Blood 115 mg/dL (60-115)
[2025-04-10 20:49] LABS: Alanine Aminotransferase 15 U/L (0-31); Albumin Level 3.2 g/dL (3.5-5.0); Alkaline Phosphatase 72 U/L (39-117); Anion Gap 12 (12-20); Aspartate Amino Transferase 24 U/L (5-31); Blood Urea Nitrogen 18 mg/dL (9-16); Calcium 8.3 mg/dL (8.4-10.2); Carbon Dioxide 29 mmol/L (22-29); Chloride 95 mmol/L (96-108); Creatinine Clr Calc Pharmacy 74.0; Estimated Glomerular Filt Rate > 60; Magnesium 2.0 mg/dL (1.6-2.6); Potassium 4.0 mmol/L (3.3-5.1); Sodium 132 mmol/L (135-145); Total Protein 5.6 g/dL (6.5-8.0)
[2025-04-10 20:50] LABS: PLT CLUMP 1; SCAN SMEAR FLAG 1
[2025-04-10 20:59] LABS: Hemoglobin 13.8 g/dl (12.0-16.0); Imm Gran Abs Auto 0.04 X10*3/uL (0.00-0.03); Imm Gran Pct Auto 0.4 % (0.0-0.4); MANUAL DIFF FLAG SCAN; Mean Corpuscular Volume 82.7 fL (80.0-98.0)
[2025-04-10 21:01] LABS: Hematocrit 40.5 % (37.0-47.0); Lymphocytes Absolute Auto 4.1 X10*3/uL (1.2-4.9); Mean Corpuscular HGB Conc 34.1 g/dl (31.0-35.0); Mean Corpuscular Hemoglobin 28.2 pg (27.0-33.0); NRBC Abs Auto 0.030 X10*3/uL (0.0-0.012); NRBC Pct Auto 0.3 /100WBC (0.0-0.2); Red Blood Count 4.90 X10*6/uL (4.20-5.50)
[2025-04-10 21:02] LABS: White Blood Count 10.5 X10*3/uL (4.8-10.8)
[2025-04-10 21:40] LABS: Free T4 (Free Thyroxine) 1.44 ng/dL (0.71-1.85)
[2025-04-11] VITALS: BP 127/67; PULSE 69; RESP 16; TEMP 36.6; O2SAT 97
--- NOTE | 2025-04-11 03:01 | PC.NURSE ---
Pt resting on stretcher, Call mcneil in reach. Pt not answering questions. Per family this has been happening lately.
[2025-04-11 05:27] VITALS: BP 127/45; PULSE 70; RESP 18; TEMP 36.7; O2SAT 99
[2025-04-11 08:10] LABS: Glucose, Whole Blood 89 mg/dL (60-115)
[2025-04-11 08:18] VITALS: BP 151/65; PULSE 70; RESP 16; TEMP 36.4; O2SAT 98
--- NOTE | 2025-04-11 08:24 | MHC.CARE ---
Pt meets the criteria for LYRIC IPLOC and will be placed on a Section 12a. ED provider in agreement with disposition. HCP aware as well.
--- NOTE | 2025-04-11 08:54 | PC.NURSE ---
patient medication rec done with asl interpreter. patient was unsure of some of her medications, pharmacy contacted for assistance.
[2025-04-11 09:00] LABS: Alanine Aminotransferase 16 U/L (0-31); Albumin Level 3.3 g/dL (3.5-5.0); Alkaline Phosphatase 70 U/L (39-117); Anion Gap 10 (12-20); Aspartate Amino Transferase 13 U/L (5-31); Blood Urea Nitrogen 16 mg/dL (9-16); Calcium 8.5 mg/dL (8.4-10.2); Carbon Dioxide 33 mmol/L (22-29); Chloride 97 mmol/L (96-108); Creatinine Clr Calc Pharmacy 76.1; Estimated Glomerular Filt Rate > 60; Potassium 4.1 mmol/L (3.3-5.1); Sodium 136 mmol/L (135-145); Total Protein 5.8 g/dL (6.5-8.0)
--- NOTE | 2025-04-11 10:47 | PHA.MEDREC ---
Pharmacy Consult ? Medication Reconciliation Pharmacy has reviewed the medication reconciliation completed by nursing. Utilized RN's conversation and recent pharmacy claims to complete med rec. Meds added in from claims were Depakote, and prednisone taper. Pt should be on 50mg for 2 more days then move onto the 40mg taper. (50mg x7 days, 40mg x7 days, 30mg x7 days, 20mg x7 days)
[2025-04-11 13:05] LABS: Glucose, Whole Blood 183 mg/dL (60-115)
[2025-04-11 14:12] VITALS: BP 142/66; PULSE 72; RESP 18; TEMP 36.7; O2SAT 96
[2025-04-11 16:39] LABS: Appearance Urine Clear; Glucose Urine UA 250 mg/dL (Negative); PH 8.0 (5.0-9.0); Specific Gravity - Urine 1.015 (1.005-1.025); UMIC TRIGGER UACC YES
[2025-04-11 16:41] LABS: UACC Culture Trigger YES
[2025-04-11 16:47] LABS: Cannabinoid Screen Urine Not Detected (Not Detect)
--- NOTE | 2025-04-11 17:37 | PC.NURSE ---
psych staff assessing pt at bedside. CONSERVATION OFFICER informed of pt's POC and that a sliding scale has not been ordered yet
[2025-04-11 17:39] LABS: Glucose, Whole Blood 194 mg/dL (60-115)
[2025-04-11 18:08] VITALS: BP 154/75; PULSE 82; RESP 14; TEMP 2.4; TEMP 36.3; O2SAT 100
--- NOTE | 2025-04-11 19:34 | PC.ADMIT ---
Patient admitted to S1 at 1650 04/11/2025 from ED overflow. Bessie is a 65 year old Nigerian speaking female. Per report from patients HCP/niece,Criss Rosenbaum, the patient has been in and out of [facility] and [facility] multiple times over the past several weeks due to poor oral intake, low blood sugar, weakness, fatigue, refusing to get out of bed, depression, and auditory hallucinations. HCP further stated that the patient has not been taking her medications, that she usually goes to a day program and is active there but hasnt gone in weeks, and that she wont get out of bed to open the door for DIMENSIONAL INTEGRATION ENGINEER, that family have had to stay with her to keep her safe. Patient has history of schizophrenia, depression, anxiety, HTN, HLD, IDDM, GERD, HSV2 and class 1 obesity. Recently diagnosed with pneumonia, seen by pulmonology and started on antibiotics, trelegy, and to follow up with pulmonology as outpatient. Patient also c/o headache with blurry vision, head ct negative, seen by vascular surgery who recommended IV steroids and then transitioned to prednisone taper. Seen by neurology who believe headache is likely tension headache w/possible GCA. Upon arrival to S1 patient AxOx3, lacks situational insight, stated, I have no idea why Im here. when speaking with luggage liner Chelsea (ID: [id number]). Patient denies pain/SI/HI/AH/VH, denies trauma history or any restraint use. Patient stated that she lives alone, she has a DIMENSIONAL INTEGRATION ENGINEER that helps her bath, she stated, I can shower on my own if I have a chair . Patient appears depressed, withdrawn, and confused. Vital signs were taken and were HR 84, BP 154/75, SpO2 100% on room air, temperature 36.3. Patient utilizes a walker, stated, I have fallen with a 2 wheel walker in the past, I have a 4 wheel walker at home. . Patient denies any falls in the last 6 months. Bessie states that she has a poor appetite, that she has lost weight but doesn't know how much. Toxicology was negative. Skin intact on inspection.
[2025-04-11 20:00] VITALS: BP 122/79; PULSE 97; RESP 18; TEMP 37.1; O2SAT 96
[2025-04-11 21:10] LABS: Glucose, Whole Blood 224 mg/dL (60-115)
[2025-04-12] MEDS: 0.9 % Sodium Chloride Flush 5 ML SYRINGE IVFLUSH (00:14)
[2025-04-12 06:39] LABS: Glucose, Whole Blood 189 mg/dL (60-115)
[2025-04-12 08:16] VITALS: BP 168/80; PULSE 100; RESP 18; TEMP 37.1; O2SAT 100
[2025-04-12] MEDS: Insulin Glargine,Hum.rec.anlog 100 UNIT/ML 10 ML VIAL 48 UNIT SUBCUT (08:57)
[2025-04-12] MEDS: Tolterodine Tartrate LA 2 MG CAP.ER.24H PO (08:59)
[2025-04-12] MEDS: Metoprolol Succinate ER 25 MG TAB.ER.24H PO (09:00)
--- NOTE | 2025-04-12 09:02 | HO.PSYADMNOT ---
HPI Date of Service: 04/12/25 Chief Complaint: psychosis Sources of Information: patient interviewed, chart reviewed and crisis/core team assessment reviewed HPI Subjective Notes: [place] Warning and Section 12B Healthcare Proxy: Yes Narrative: Ms. Alfonso is a 65 year-old woman with hx of schizophrenia. She was brought by family due to patient not eating, not moving much from her bed, not taking medications appearing more suspicious than usual. 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 Pertienent labs completed in the ED include cbc without leukocytosis, no anemia; CMP without electrolyte abnormalities, BUN 15, Cr 0.76, creatinine clearance 68.7. Utox negative. UA with glucose, small leukocytosis and bacteria, pending urine culture. LFT wnl. TSH 2.61. B12 1215. Head CT with no acute findings, chronic atrophy and microvascular changes. On the unit, pt presents as calm, with delayed response, staring but does look at this field underwriter as soon as I call her name. She reports she is not sure as to why she is here. She denies SI/HI. She denies VH/AH but appears internally preoccupied and thought blocking. She does not report any delusional content. Her thought content is marked by poverty of thought. Collateral information gathered from her niece who is HCP. She reports at baseline pt is talkative and attends a day program. Past Psychiatric History: Inpt: hx of inpt admission in [place] prior to coming to [facility] in 2021. 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 OP: Anahy Kelley, DATA POWER CONSULTANT [facility] (currently only two medications he is prescribing for her are low dose amitriptyline 10mg po qhs and ropinirole). Past med trials: haldol, depakote, clonazepam Medical Evaluation Reviewed: Yes [facility] Medical History Class 1 obesity Anxiety Atypical pneumonia Pneumonitis Nausea Abdominal pain Osteoporosis Hypertension History of blood clot in brain Hypercholesteremia HSV-2 (herpes simplex virus 2) infection Arthritis Rheumatic fever Schizophrenia GERD (gastroesophageal reflux disease) Depression HTN (hypertension) Hyperlipemia Diabetes Surgical History Hx of colonoscopy History of tubal ligation History of cystostomy History of 2 sections Family History: sister - panic disorder Social History: highest completed grade is 4th. spent her entire life in [place] until moving to [place] to live with her son in 2008. She moved to [facility] back in 2021 to be with her sister. she denies she has any income. she is living with her sister. Substance History: none Trauma History: denies Diagnostics Vital Signs (24Hr): Vital Signs - 24 hr 04/11/25 14:12 04/11/25 18:08 04/11/25 20:00 Temperature 98.1 F 36.3 F L 98.8 F Pulse Rate 72 82 97 Respiratory Rate 18 14 18 Blood Pressure 142/66 H 154/75 H 122/79 Pulse Oximetry 96 100 96 Oxygen Delivery Method Room Air Room Air Room Air 04/12/25 08:16 Temperature 98.8 F Pulse Rate 100 Respiratory Rate 18 Blood Pressure 168/80 H Pulse Oximetry 100 Oxygen Delivery Method Room Air BMI result Body Mass Index 30.0 Labs 04/10/25 20:21 04/12/25 08:16 Labs: Laboratory Results - last 48 hr 04/10/25 04/10/25 04/10/25 17:52 18:50 20:21 WBC 10.5 RBC 4.90 D Hgb 13.8 D Hct 40.5 D MCV 82.7 MCH 28.2 MCHC 34.1 RDW 15.0 Plt Count TNP MPV 10.8 Immature Gran % (Auto) 0.4 Neut % (Auto) 54.2 Lymph % (Auto) 39.4 [place] % (Auto) 5.4 Eos % (Auto) 0.5 Baso % (Auto) 0.1 Lymph # (Auto) 4.1 [place] # (Auto) 0.6 Eos # (Auto) 0.1 Baso # (Auto) 0.0 Abs Immat Gran (auto) 0.04 H Absolute Neuts (auto) 5.7 Absolute Nucleated RBC 0.030 H Nucleated RBC % (auto) 0.3 H Smear Tech's Comments VERIFIED Sodium 132 L Potassium 4.0 Chloride 95 L Carbon Dioxide 29 Anion Gap 12 BUN 18 H Creatinine 0.72 Estim Creat Clear Calc 74.0 Estimated GFR > 60 POC Glucose 69 115 Random Glucose 218 H Calcium 8.3 L Magnesium 2.0 Total Bilirubin 0.3 Direct Bilirubin 0.1 AST 24 ALT 15 Alkaline Phosphatase 72 Total Protein 5.6 L Albumin 3.2 L TSH 4.39 H Free T4 1.44 Urine Color Urine Appearance Urine pH Ur Specific [place] Urine Protein Urine Glucose (UA) Urine Ketones Urine Blood Urine Nitrite Ur Leukocyte Esterase Urine RBC Urine WBC Ur Squamous Epith Cells Urine Bacteria Hyaline Casts Urine Opiates Screen Ur Buprenorphine Scrn Ur Oxycodone Screen Urine Methadone Screen Urine Fentanyl Screen Ur Barbiturates Screen Valproic Acid 71.0 Ur Phencyclidine Scrn Ur Amphetamines Screen U Benzodiazepines Scrn Urine Cocaine Screen U Marijuana (THC) Screen 04/11/25 04/11/25 04/11/25 08:07 08:31 08:31 WBC RBC Hgb Hct MCV MCH MCHC RDW Plt Count MPV Immature Gran % (Auto) Neut % (Auto) Lymph % (Auto) [place] % (Auto) Eos % (Auto) Baso % (Auto) Lymph # (Auto) [place] # (Auto) Eos # (Auto) Baso # (Auto) Abs Immat Gran (auto) Absolute Neuts (auto) Absolute Nucleated RBC Nucleated RBC % (auto) Smear Tech's Comments Sodium Cancelled 136 Potassium Cancelled Chloride Carbon Dioxide Anion Gap BUN Creatinine Estim Creat Clear Calc Estimated GFR POC Glucose 89 Random Glucose Calcium Magnesium Total Bilirubin Direct Bilirubin AST ALT Alkaline Phosphatase Total Protein Albumin TSH Free T4 Urine Color Urine Appearance Urine pH Ur Specific [place] Urine Protein Urine Glucose (UA) Urine Ketones Urine Blood Urine Nitrite Ur Leukocyte Esterase Urine RBC Urine WBC Ur Squamous Epith Cells Urine Bacteria Hyaline Casts Urine Opiates Screen Ur Buprenorphine Scrn Ur Oxycodone Screen Urine Methadone Screen Urine Fentanyl Screen Ur Barbiturates Screen Valproic Acid Ur Phencyclidine Scrn Ur Amphetamines Screen U Benzodiazepines Scrn Urine Cocaine Screen U Marijuana (THC) Screen 04/11/25 04/11/25 04/11/25 08:31 08:31 08:31 WBC RBC Hgb Hct MCV MCH MCHC RDW Plt Count MPV Immature Gran % (Auto) Neut % (Auto) Lymph % (Auto) [place] % (Auto) Eos % (Auto) Baso % (Auto) Lymph # (Auto) [place] # (Auto) Eos # (Auto) Baso # (Auto) Abs Immat Gran (auto) Absolute Neuts (auto) Absolute Nucleated RBC Nucleated RBC % (auto) Smear Tech's Comments Sodium Potassium 4.1 Chloride Cancelled 97 Carbon Dioxide Cancelled 33 H Anion Gap Cancelled BUN Creatinine Estim Creat Clear Calc Estimated GFR POC Glucose Random Glucose Calcium Magnesium Total Bilirubin Direct Bilirubin AST ALT Alkaline Phosphatase Total Protein Albumin TSH Free T4 Urine Color Urine Appearance Urine pH Ur Specific [place] Urine Protein Urine Glucose (UA) Urine Ketones Urine Blood Urine Nitrite Ur Leukocyte Esterase Urine RBC Urine WBC Ur Squamous Epith Cells Urine Bacteria Hyaline Casts Urine Opiates Screen Ur Buprenorphine Scrn Ur Oxycodone Screen Urine Methadone Screen Urine Fentanyl Screen Ur Barbiturates Screen Valproic Acid Ur Phencyclidine Scrn Ur Amphetamines Screen U Benzodiazepines Scrn Urine Cocaine Screen U Marijuana (THC) Screen 04/11/25 04/11/25 04/11/25 08:31 08:31 08:31 WBC RBC Hgb Hct MCV MCH MCHC RDW Plt Count MPV Immature Gran % (Auto) Neut % (Auto) Lymph % (Auto) [place] % (Auto) Eos % (Auto) Baso % (Auto) Lymph # (Auto) [place] # (Auto) Eos # (Auto) Baso # (Auto) Abs Immat Gran (auto) Absolute Neuts (auto) Absolute Nucleated RBC Nucleated RBC % (auto) Smear Tech's Comments Sodium Potassium Chloride Carbon Dioxide Anion Gap 10 L BUN Cancelled 16 Creatinine Cancelled 0.70 Estim Creat Clear Calc Cancelled Estimated GFR POC Glucose Random Glucose Calcium Magnesium Total Bilirubin Direct Bilirubin AST ALT Alkaline Phosphatase Total Protein Albumin TSH Free T4 Urine Color Urine Appearance Urine pH Ur Specific [place] Urine Protein Urine Glucose (UA) Urine Ketones Urine Blood Urine Nitrite Ur Leukocyte Esterase Urine RBC Urine WBC Ur Squamous Epith Cells Urine Bacteria Hyaline Casts Urine Opiates Screen Ur Buprenorphine Scrn Ur Oxycodone Screen Urine Methadone Screen Urine Fentanyl Screen Ur Barbiturates Screen Valproic Acid Ur Phencyclidine Scrn Ur Amphetamines Screen U Benzodiazepines Scrn Urine Cocaine Screen U Marijuana (THC) Screen 04/11/25 04/11/25 04/11/25 08:31 08:31 08:31 WBC RBC Hgb Hct MCV MCH MCHC RDW Plt Count MPV Immature Gran % (Auto) Neut % (Auto) Lymph % (Auto) [place] % (Auto) Eos % (Auto) Baso % (Auto) Lymph # (Auto) [place] # (Auto) Eos # (Auto) Baso # (Auto) Abs Immat Gran (auto) Absolute Neuts (auto) Absolute Nucleated RBC Nucleated RBC % (auto) Smear Tech's Comments Sodium Potassium Chloride Carbon Dioxide Anion Gap BUN Creatinine Estim Creat Clear Calc 76.1 Estimated GFR Cancelled > 60 POC Glucose Random Glucose Cancelled 106 Calcium Cancelled Magnesium Total Bilirubin Direct Bilirubin AST ALT Alkaline Phosphatase Total Protein Albumin TSH Free T4 Urine Color Urine Appearance Urine pH Ur Specific [place] Urine Protein Urine Glucose (UA) Urine Ketones Urine Blood Urine Nitrite Ur Leukocyte Esterase Urine RBC Urine WBC Ur Squamous Epith Cells Urine Bacteria Hyaline Casts Urine Opiates Screen Ur Buprenorphine Scrn Ur Oxycodone Screen Urine Methadone Screen Urine Fentanyl Screen Ur Barbiturates Screen Valproic Acid Ur Phencyclidine Scrn Ur Amphetamines Screen U Benzodiazepines Scrn Urine Cocaine Screen U Marijuana (THC) Screen 04/11/25 04/11/25 04/11/25 08:31 12:59 16:30 WBC RBC Hgb Hct MCV MCH MCHC RDW Plt Count MPV Immature Gran % (Auto) Neut % (Auto) Lymph % (Auto) [place] % (Auto) Eos % (Auto) Baso % (Auto) Lymph # (Auto) [place] # (Auto) Eos # (Auto) Baso # (Auto) Abs Immat Gran (auto) Absolute Neuts (auto) Absolute Nucleated RBC Nucleated RBC % (auto) Smear Tech's Comments Sodium Potassium Chloride Carbon Dioxide Anion Gap BUN Creatinine Estim Creat Clear Calc Estimated GFR POC Glucose 183 H Random Glucose Calcium 8.5 Magnesium Total Bilirubin 0.5 Direct Bilirubin AST 13 ALT 16 Alkaline Phosphatase 70 Total Protein 5.8 L Albumin 3.3 L TSH Free T4 Urine Color Yellow Urine Appearance Clear Urine pH 8.0 Ur Specific [place] 1.015 Urine Protein Negative Urine Glucose (UA) 250 H Urine Ketones Trace Urine Blood Negative Urine Nitrite Negative Ur Leukocyte Esterase Small (1+) H Urine RBC 0-2 Urine WBC 11-20 H Ur Squamous Epith Cells 0-2 Urine Bacteria 4+ Hyaline Casts 0-2 Urine Opiates Screen Not Detected Ur Buprenorphine Scrn Not Detected Ur Oxycodone Screen Not Detected Urine Methadone Screen Not Detected Urine Fentanyl Screen Not Detected Ur Barbiturates Screen Not Detected Valproic Acid Ur Phencyclidine Scrn Not Detected Ur Amphetamines Screen Not Detected U Benzodiazepines Scrn Not Detected Urine Cocaine Screen Not Detected U Marijuana (THC) Screen Not Detected 04/11/25 04/11/25 04/12/25 17:36 21:06 06:32 WBC RBC Hgb Hct MCV MCH MCHC RDW Plt Count MPV Immature Gran % (Auto) Neut % (Auto) Lymph % (Auto) [place] % (Auto) Eos % (Auto) Baso % (Auto) Lymph # (Auto) [place] # (Auto) Eos # (Auto) Baso # (Auto) Abs Immat Gran (auto) Absolute Neuts (auto) Absolute Nucleated RBC Nucleated RBC % (auto) Smear Tech's Comments Sodium Potassium Chloride Carbon Dioxide Anion Gap BUN Creatinine Estim Creat Clear Calc Estimated GFR POC Glucose 194 H 224 H 189 H Random Glucose Calcium Magnesium Total Bilirubin Direct Bilirubin AST ALT Alkaline Phosphatase Total Protein Albumin TSH Free T4 Urine Color Urine Appearance Urine pH Ur Specific [place] Urine Protein Urine Glucose (UA) Urine Ketones Urine Blood Urine Nitrite Ur Leukocyte Esterase Urine RBC Urine WBC Ur Squamous Epith Cells Urine Bacteria Hyaline Casts Urine Opiates Screen Ur Buprenorphine Scrn Ur Oxycodone Screen Urine Methadone Screen Urine Fentanyl Screen Ur Barbiturates Screen Valproic Acid Ur Phencyclidine Scrn Ur Amphetamines Screen U Benzodiazepines Scrn Urine Cocaine Screen U Marijuana (THC) Screen Meds/Allergies Meds Home Medications ?Medication ?Instructions ?Recorded ?Confirmed ?Type amitriptyline 10 mg tablet 5 mg PO BEDTIME 01/19/25 04/11/25 History ropinirole 0.25 mg tablet 1 mg PO BEDTIME 01/19/25 04/11/25 History sennosides 8.6 mg-docusate sodium 1 tab PO BID 01/19/25 04/11/25 History 50 mg tablet (Senna with Docusate Sodium) omeprazole 20 mg capsule,delayed 20 mg PO DAILY@0630 03/21/25 04/11/25 History release atorvastatin 10 mg tablet 10 mg PO BEDTIME 04/11/25 04/11/25 History insulin glargine-yfgn 100 unit/mL 48 unit subcut DAILY 04/11/25 04/11/25 History (3 mL) subcutaneous pen prednisone 10 mg tablet See Taper PO DIRECTED 04/11/25 04/11/25 History Allergies Allergies Allergy/AdvReac Type Severity Reaction Status Date / Time Penicillins Allergy Intermediate rash/swelli Verified 04/10/25 17:47 ng shellfish derived Allergy Intermediate Swelling, Verified 04/10/25 17:47 Hiv Mental Status Exam Mental Status Exam Narrative: Appearance: wearing hospital gown, no acute distress, stare blank. Behavior: minimally engaged Psychomotor: retardation noted Speech: clear, significant delay in response, minimally spontaneous TP: thought blocking TC: non in particular, brief answers to most questions Mood: good Affect: constricted SI: denies HI: none VH/AH: appears internally preoccupied Delusions: no overt delusional content noted or reported, but appears suspicious Insight/judgment: impaired x 2. Memory/cog: alert, not to situation. not formally tested at the time of interview. Assessment & Plan Assessment & Plan (1) Schizophrenia: Status: Acute Qualifiers: Schizophrenia type: paranoid schizophrenia Qualified Code(s): F20.0 - Paranoid schizophrenia Code(s): F20.9 - Schizophrenia, unspecified Plan Ms. Alfonso is a 65 year-old woman with hx of schizophrenia. She was brought to [facility] by family due to not eating, not talking not taking medications. She is on insulin and had refused at home raising concern in terms of worsening of her DM. She presents with thought blocking, poverty of thought. We discussed risks, benefits and alternative treatment options. will schedule ativan 0.5mg po TID. will obtain collateral information from OP provider as to reason to d/c haldol, also considering less potent antipsychotic but also concern to give olanzapine given high blood glucose also in context that recently started on prednisone for suspicion of giant cell arteritis pending outpatient appointment with vascular surgeon for bipsy. PLAN 1. Admit to S1, sect 12b, 5 minutes check 2. ativan 0.5mg po TID. continue depakote 3. obtain collateral from OP provider 4. OT assessments 5. aftercare planning Patient educated on: diagnosis and medication risk/benefits Reason for continued inpatient stay Substantial Risk for: inability to function Statement Statement: I have reviewed the history and physical and performed a pertinent examination on my patient. No changes have occurred unless specified. If the History and Physical was not performed prior to admission, the Hospitalist's service will be consulted for completing the admission physical. Time Spent With Patient Time: Total time managing care of this patient today ____ minutes.
[2025-04-12 10:01] LABS: Alanine Aminotransferase 14 U/L (0-31); Albumin Level 3.6 g/dL (3.5-5.0); Alkaline Phosphatase 78 U/L (39-117); Anion Gap 14 (12-20); Aspartate Amino Transferase 15 U/L (5-31); Blood Urea Nitrogen 15 mg/dL (9-16); Calcium 9.0 mg/dL (8.4-10.2); Carbon Dioxide 29 mmol/L (22-29); Chloride 96 mmol/L (96-108); Cholesterol 189 mg/dL (<200); Creatinine Clr Calc Pharmacy 68.7; Estimated Glomerular Filt Rate > 60; HDL Cholesterol 90 mg/dL (>40); Potassium 4.3 mmol/L (3.3-5.1); Sodium 135 mmol/L (135-145); Total Protein 6.0 g/dL (6.5-8.0); Triglycerides 107 mg/dL (<150)
[2025-04-12 10:12] LABS: Hemoglobin A1C 220.2089 umol/L; Total Hemoglobin (HGBA1C) 3665.7631 umol/L
[2025-04-12 10:16] LABS: Thyroid Stimulating Hormone 2.61 uIU/mL (0.32-4.0)
[2025-04-12 10:24] LABS: Vitamin B12 1215 pg/mL (200-900)
[2025-04-12 11:33] LABS: Glucose, Whole Blood 285 mg/dL (60-115)
[2025-04-12 16:16] LABS: Glucose, Whole Blood 331 mg/dL (60-115)
--- NOTE | 2025-04-12 18:47 | PC.NURSE ---
IV removed today without difficulty after breakfast. No sign or symptoms of complications at insertion site. Patient tolerated the procedure well.
[2025-04-12 20:00] VITALS: BP 103/60; PULSE 99; RESP 18; TEMP 36.7; O2SAT 95
[2025-04-13 06:35] LABS: Glucose, Whole Blood 329 mg/dL (60-115)
[2025-04-13 08:00] VITALS: BP 117/66; PULSE 96; RESP 18; TEMP 36.9; O2SAT 96
[2025-04-13 08:24] VITALS: BMI 29.8
[2025-04-13 10:52] VITALS: BP 117/66
[2025-04-13 10:53] VITALS: BP 117/66; PULSE 96
[2025-04-13] MEDS: Metoprolol Succinate ER 25 MG TAB.ER.24H PO (10:53)
[2025-04-13] MEDS: Tolterodine Tartrate LA 2 MG CAP.ER.24H PO (10:53)
[2025-04-13] MEDS: Insulin Glargine,Hum.rec.anlog 100 UNIT/ML 10 ML VIAL 48 UNIT SUBCUT (10:54)
[2025-04-13 11:07] LABS: Glucose, Whole Blood 180 mg/dL (60-115)
[2025-04-13 16:39] LABS: Glucose, Whole Blood 246 mg/dL (60-115)
--- NOTE | 2025-04-13 19:11 | HO.PSYCHPN ---
Subjective Subjective Date of Service: 04/13/25 Reason For Visit: psychosis Subjective Notes: Conditional Voluntary Interim History: Pt slept through the night. She has been visible for meals and back to bed. Not attending groups. She is eating 100% of her meals and taking medications. Poverty of thought and delayed response still present. No overt delusional content noted. Review of Systems Review of Systems denies SOB, no abdominal pain. No chest pain. Mental Status Exam Mental Status Exam Narrative: Appearance: wearing hospital gown, no acute distress, stare blank. Behavior: minimally engaged Psychomotor: retardation noted Speech: clear, significant delay in response, minimally spontaneous TP: thought blocking TC: non in particular, brief answers to most questions Mood: good Affect: constricted SI: denies HI: none VH/AH: appears internally preoccupied Delusions: no overt delusional content noted or reported, but appears suspicious Insight/judgment: impaired x 2. Memory/cog: alert, not to situation. not formally tested at the time of interview. Diagnostics Vital Signs (24Hr): Vital Signs - 24 hr 04/12/25 20:00 04/13/25 08:00 04/13/25 10:52 Temperature 98.1 F 98.4 F Pulse Rate 99 96 Respiratory Rate 18 18 Blood Pressure 103/60 117/66 117/66 Pulse Oximetry 95 96 Oxygen Delivery Method Room Air Room Air 04/13/25 10:53 Temperature Pulse Rate 96 Respiratory Rate Blood Pressure 117/66 Pulse Oximetry Oxygen Delivery Method BMI result Body Mass Index 29.8 Labs 04/10/25 20:21 04/12/25 08:16 Labs: Laboratory Results - last 48 hr 04/11/25 04/12/25 04/12/25 21:06 06:32 08:16 Sodium 135 Potassium 4.3 Chloride 96 Carbon Dioxide 29 Anion Gap 14 BUN 15 Creatinine 0.76 Estim Creat Clear Calc 68.7 Estimated GFR > 60 POC Glucose 224 H 189 H Random Glucose 209 H Estimat Average Glucose 171 Hemoglobin A1c % 7.6 H Calcium 9.0 Total Bilirubin 0.5 AST 15 ALT 14 Alkaline Phosphatase 78 Total Protein 6.0 L Albumin 3.6 Triglycerides 107 Cholesterol 189 LDL Cholesterol, Calc 78 HDL Cholesterol 90 Vitamin B12 1215 H TSH 2.61 04/12/25 04/12/25 04/13/25 11:29 16:11 06:20 Sodium Potassium Chloride Carbon Dioxide Anion Gap BUN Creatinine Estim Creat Clear Calc Estimated GFR POC Glucose 285 H 331 H 329 H Random Glucose Estimat Average Glucose Hemoglobin A1c % Calcium Total Bilirubin AST ALT Alkaline Phosphatase Total Protein Albumin Triglycerides Cholesterol LDL Cholesterol, Calc HDL Cholesterol Vitamin B12 TSH 04/13/25 04/13/25 11:00 16:05 Sodium Potassium Chloride Carbon Dioxide Anion Gap BUN Creatinine Estim Creat Clear Calc Estimated GFR POC Glucose 180 H 246 H Random Glucose Estimat Average Glucose Hemoglobin A1c % Calcium Total Bilirubin AST ALT Alkaline Phosphatase Total Protein Albumin Triglycerides Cholesterol LDL Cholesterol, Calc HDL Cholesterol Vitamin B12 TSH Medications Medications Current Medications Acetaminophen (Acetaminophen 325 Mg Tablet) 650 mg PO Q6H PRN PRN Reason: Headache/Pain, Scale 1-10 Acyclovir (Acyclovir 200 Mg Capsule) 400 mg PO TID [facility] Last Admin: 04/13/25 18:04 Dose: 400 mg Al Hydroxide/Mg Hydroxide (Magnesium Hydrox/Alum Hydrox 30 Ml Oral.Susp) 30 ml PO Q6H PRN PRN Reason: Heartburn/Nausea Amitriptyline HCl (Amitriptyline Hcl 10 Mg Tablet) 5 mg PO BEDTIME [facility] Last Admin: 04/12/25 20:04 Dose: 5 mg Atorvastatin Calcium (Atorvastatin Calcium 10 Mg Tablet) 10 mg PO BEDTIME [facility] Last Admin: 04/12/25 20:04 Dose: 10 mg Divalproex Sodium (Divalproex Sodium Er 500 Mg Tab.Er.24h) 1,000 mg PO BEDTIME [facility] Last Admin: 04/12/25 20:05 Dose: 1,000 mg Furosemide (Furosemide 40 Mg Tablet) 40 mg PO DAILY [facility]; Protocol Last Admin: 04/13/25 10:52 Dose: 40 mg Insulin Glargine (Insulin Glargine,Hum.Rec.Anlog 100 Unit/Ml 10 Ml Vial) 48 unit SUBCUT DAILY [facility] Last Admin: 04/13/25 10:54 Dose: 48 unit Insulin Human Lispro (Insulin Lispro 100 Unit/Ml 3 Ml Vial) 10 unit SUBCUT TIDAC [facility] Last Admin: 04/13/25 18:05 Dose: 10 unit Lisinopril (Lisinopril 40 Mg Tablet) 40 mg PO DAILY [facility]; Protocol Last Admin: 04/13/25 10:52 Dose: 40 mg Lorazepam (Lorazepam 0.5 Mg Tablet) 0.5 mg PO TID [facility] Last Admin: 04/13/25 18:05 Dose: 0.5 mg Magnesium Hydroxide (Milk Of Magnesia 30 Ml Oral.Susp) 30 ml PO DAILY PRN PRN Reason: Constipation Metoprolol Succinate (Metoprolol Succinate Er 25 Mg Tab.Er.24h) 25 mg PO DAILY [facility]; Protocol Last Admin: 04/13/25 10:53 Dose: 25 mg Non-Formulary Medication (Dulaglutide [Trulicity]) 1.5 mg SUBCUT FR [facility] Omeprazole (Omeprazole 20 Mg Capsule.Dr) 20 mg PO DAILY@0630 [facility] Last Admin: 04/13/25 06:18 Dose: 20 mg Polyethylene Glycol (Polyethylene Glycol 3350 17 Gm Powd.Pack) 17 gm PO DAILY [facility] Last Admin: 04/13/25 11:46 Dose: Not Given Prednisone (Prednisone 10 Mg Tablet) 50 mg PO DAILY [facility]; Taper Stop: 05/05/25 08:59 Last Admin: 04/13/25 10:53 Dose: 50 mg Ropinirole HCl (Ropinirole Hcl 1 Mg Tablet) 1 mg PO BEDTIME [facility] Last Admin: 04/12/25 20:05 Dose: 1 mg Senna/Docusate Sodium (Sennosides/Docusate Sodium Tablet) 1 tab PO BID [facility] Last Admin: 04/13/25 10:53 Dose: 1 tab Tolterodine Tartrate (Tolterodine Tartrate La 2 Mg Cap.Er.24h) 2 mg PO DAILY [facility] Last Admin: 04/13/25 10:53 Dose: 2 mg Trazodone HCl (Trazodone Hcl 50 Mg Tablet) 50 mg PO BEDTIME PRN PRN Reason: Insomnia Last Admin: 04/12/25 20:05 Dose: 50 mg Allergies Allergies Allergy/AdvReac Type Severity Reaction Status Date / Time Penicillins Allergy Intermediate rash/swelli Verified 04/10/25 17:47 ng shellfish derived Allergy Intermediate Swelling, Verified 04/10/25 17:47 Hives Assessment & Plan Assessment & Plan (1) Schizophrenia: Qualifiers: Schizophrenia type: paranoid schizophrenia Qualified Code(s): F20.0 - Paranoid schizophrenia Status: Acute Code(s): F20.9 - Schizophrenia, unspecified Plan Ms. Alfonso is a 65 year-old woman with hx of schizophrenia. She was brought to [facility] ED by family due to not eating, not talking not taking medications. She is on insulin and had refused at home raising concern in terms of worsening of her DM. She presents with thought blocking, poverty of thought. We discussed risks, benefits and alternative treatment options. will schedule ativan 0.5mg po TID. will obtain collateral information from OP provider as to reason to d/c haldol, also considering less potent antipsychotic but also concern to give olanzapine given high blood glucose also in context that recently started on prednisone for suspicion of giant cell arteritis pending outpatient appointment with vascular surgeon for biopsy. 04/13/25 continue ativan 0.5mg po TID. risperidone 0.5mg po BID monitor worsening of catatonic like including delayed response, mutism. Reason for continued inpatient stay Substantial Risk for: inability to function Time Spent With Patient Time: Total time managing care of this patient today ____ minutes.
[2025-04-13 20:00] VITALS: BP 124/62; PULSE 100; RESP 16; TEMP 36.6; O2SAT 97
[2025-04-13 20:05] LABS: Glucose, Whole Blood 329 mg/dL (60-115)
[2025-04-14 06:19] LABS: Glucose, Whole Blood 225 mg/dL (60-115)
[2025-04-14] MEDS: Insulin Glargine,Hum.rec.anlog 100 UNIT/ML 10 ML VIAL 48 UNIT SUBCUT (07:53)
[2025-04-14] MEDS: Tolterodine Tartrate LA 2 MG CAP.ER.24H PO (07:54)
[2025-04-14 07:57] VITALS: BP 131/65
[2025-04-14] MEDS: Metoprolol Succinate ER 25 MG TAB.ER.24H PO (07:57)
[2025-04-14 08:00] VITALS: BP 131/65; PULSE 87; RESP 16; TEMP 36.4; O2SAT 98
[2025-04-14 11:49] LABS: Glucose, Whole Blood 412 mg/dL (60-115)
--- NOTE | 2025-04-14 15:48 | HO.PSYCHPN ---
Subjective Subjective Date of Service: 04/14/25 Reason For Visit: psychosis Subjective Notes: Section 12B Interim History: Pt slept through the night. She continues to be visible for meals and back to bed. Not attending groups. She is eating 100% of her meals and taking medications. Poverty of thought and delayed response still present. No overt delusional content noted. Review of Systems Review of Systems denies SOB, no abdominal pain. No chest pain. Mental Status Exam Mental Status Exam Narrative: Appearance: wearing hospital gown, no acute distress, stare blank. Behavior: minimally engaged Psychomotor: retardation noted Speech: clear, significant delay in response, minimally spontaneous TP: thought blocking TC: non in particular, brief answers to most questions Mood: good Affect: constricted SI: denies HI: none VH/AH: appears internally preoccupied Delusions: no overt delusional content noted or reported, but appears suspicious Insight/judgment: impaired x 2. Memory/cog: alert, not to situation. not formally tested at the time of interview. Diagnostics Vital Signs (24Hr): Vital Signs - 24 hr 04/13/25 20:00 04/14/25 07:57 04/14/25 08:00 Temperature 97.8 F 97.6 F Pulse Rate 100 87 Respiratory Rate 16 16 Blood Pressure 124/62 131/65 131/65 Pulse Oximetry 97 98 Oxygen Delivery Method Room Air Room Air BMI result Body Mass Index 29.8 Labs 04/10/25 20:21 04/12/25 08:16 Labs: Laboratory Results - last 48 hr 04/12/25 04/13/25 04/13/25 16:11 06:20 11:00 POC Glucose 331 H 329 H 180 H 04/13/25 04/13/25 04/14/25 16:05 19:49 06:09 POC Glucose 246 H 329 H 225 H 04/14/25 11:43 POC Glucose 412 H* Medications Medications Current Medications Acetaminophen (Acetaminophen 325 Mg Tablet) 650 mg PO Q6H PRN PRN Reason: Headache/Pain, Scale 1-10 Acyclovir (Acyclovir 200 Mg Capsule) 400 mg PO TID [facility] Last Admin: 04/14/25 14:59 Dose: 400 mg Al Hydroxide/Mg Hydroxide (Magnesium Hydrox/Alum Hydrox 30 Ml Oral.Susp) 30 ml PO Q6H PRN PRN Reason: Heartburn/Nausea Amitriptyline HCl (Amitriptyline Hcl 10 Mg Tablet) 5 mg PO BEDTIME [facility] Last Admin: 04/13/25 20:23 Dose: 5 mg Atorvastatin Calcium (Atorvastatin Calcium 10 Mg Tablet) 10 mg PO BEDTIME [facility] Last Admin: 04/13/25 20:23 Dose: 10 mg Divalproex Sodium (Divalproex Sodium Er 500 Mg Tab.Er.24h) 1,000 mg PO BEDTIME [facility] Last Admin: 04/13/25 20:23 Dose: 1,000 mg Furosemide (Furosemide 40 Mg Tablet) 40 mg PO DAILY [facility]; Protocol Last Admin: 04/14/25 07:57 Dose: 40 mg Insulin Glargine (Insulin Glargine,Hum.Rec.Anlog 100 Unit/Ml 10 Ml Vial) 48 unit SUBCUT DAILY [facility] Last Admin: 04/14/25 07:53 Dose: 48 unit Insulin Human Lispro (Insulin Lispro 100 Unit/Ml 3 Ml Vial) 10 unit SUBCUT TIDAC [facility] Last Admin: 04/14/25 12:00 Dose: 10 unit Lisinopril (Lisinopril 40 Mg Tablet) 40 mg PO DAILY [facility]; Protocol Last Admin: 04/14/25 07:57 Dose: 40 mg Lorazepam (Lorazepam 0.5 Mg Tablet) 0.5 mg PO TID [facility] Last Admin: 04/14/25 14:59 Dose: 0.5 mg Magnesium Hydroxide (Milk Of Magnesia 30 Ml Oral.Susp) 30 ml PO DAILY PRN PRN Reason: Constipation Metoprolol Succinate (Metoprolol Succinate Er 25 Mg Tab.Er.24h) 25 mg PO DAILY [facility]; Protocol Last Admin: 04/14/25 07:57 Dose: 25 mg Non-Formulary Medication (Dulaglutide [Trulicity]) 1.5 mg SUBCUT FR [facility] Omeprazole (Omeprazole 20 Mg Capsule.Dr) 20 mg PO DAILY@0630 [facility] Last Admin: 04/14/25 06:07 Dose: 20 mg Polyethylene Glycol (Polyethylene Glycol 3350 17 Gm Powd.Pack) 17 gm PO DAILY [facility] Last Admin: 04/14/25 07:55 Dose: 17 gm Prednisone (Prednisone 10 Mg Tablet) 40 mg PO DAILY [facility]; Taper Stop: 05/05/25 08:59 Last Admin: 04/14/25 09:34 Dose: 40 mg Risperidone (Risperidone 0.5 Mg Tablet) 0.5 mg PO BID [facility] Last Admin: 04/14/25 07:54 Dose: 0.5 mg Ropinirole HCl (Ropinirole Hcl 1 Mg Tablet) 1 mg PO BEDTIME [facility] Last Admin: 04/13/25 20:23 Dose: 1 mg Senna/Docusate Sodium (Sennosides/Docusate Sodium Tablet) 1 tab PO BID [facility] Last Admin: 04/14/25 07:54 Dose: 1 tab Tolterodine Tartrate (Tolterodine Tartrate La 2 Mg Cap.Er.24h) 2 mg PO DAILY [facility] Last Admin: 04/14/25 07:54 Dose: 2 mg Trazodone HCl (Trazodone Hcl 50 Mg Tablet) 50 mg PO BEDTIME PRN PRN Reason: Insomnia Last Admin: 04/13/25 20:23 Dose: 50 mg Allergies Allergies Allergy/AdvReac Type Severity Reaction Status Date / Time Penicillins Allergy Intermediate rash/swelli Verified 04/10/25 17:47 ng shellfish derived Allergy Intermediate Swelling, Verified 04/10/25 17:47 Hives Assessment & Plan Assessment & Plan (1) Schizophrenia: Qualifiers: Schizophrenia type: paranoid schizophrenia Qualified Code(s): F20.0 - Paranoid schizophrenia Status: Acute Code(s): F20.9 - Schizophrenia, unspecified Plan Ms. Alfonso is a 65 year-old woman with hx of schizophrenia. She was brought to [facility] ED by family due to not eating, not talking not taking medications. She is on insulin and had refused at home raising concern in terms of worsening of her DM. She presents with thought blocking, poverty of thought. We discussed risks, benefits and alternative treatment options. will schedule ativan 0.5mg po TID. will obtain collateral information from OP provider as to reason to d/c haldol, also considering less potent antipsychotic but also concern to give olanzapine given high blood glucose also in context that recently started on prednisone for suspicion of giant cell arteritis pending outpatient appointment with vascular surgeon for biopsy. 04/13/25 continue ativan 0.5mg po TID. risperidone 0.5mg po BID monitor worsening of catatonic like including delayed response, mutism. 04/14 continue ativan, low dose risperidone 0.5mg po BID. monitor oversedation, worsening of catatonia like symptoms. Reason for continued inpatient stay Substantial Risk for: inability to function Time Spent With Patient Time: Total time managing care of this patient today ____ minutes.
[2025-04-14 16:28] LABS: Glucose, Whole Blood 385 mg/dL (60-115)
[2025-04-14 20:00] VITALS: BP 130/70; PULSE 92; RESP 16; TEMP 36.4; O2SAT 95
[2025-04-14 20:07] LABS: Glucose, Whole Blood 369 mg/dL (60-115)
[2025-04-15 06:41] LABS: Glucose, Whole Blood 310 mg/dL (60-115)
[2025-04-15 08:00] VITALS: BP 147/67; PULSE 88; RESP 16; TEMP 36.4; O2SAT 100
[2025-04-15] MEDS: Insulin Glargine,Hum.rec.anlog 100 UNIT/ML 10 ML VIAL 48 UNIT SUBCUT (08:06)
[2025-04-15 08:08] VITALS: BP 147/67; PULSE 88
[2025-04-15] MEDS: Metoprolol Succinate ER 25 MG TAB.ER.24H PO (08:08)
[2025-04-15 08:09] VITALS: BP 147/67
[2025-04-15] MEDS: Tolterodine Tartrate LA 2 MG CAP.ER.24H PO (08:09)
[2025-04-15 11:51] LABS: Glucose, Whole Blood 330 mg/dL (60-115)
[2025-04-15 16:26] LABS: Glucose, Whole Blood 410 mg/dL (60-115)
--- NOTE | 2025-04-15 16:42 | P.PNPSI_ITS ---
Subjective Subjective Date of Service: 04/15/25 Reason For Visit: psychosis Interim History: Patient is cooperative. Her BS have been running high after prednisone and Risperidone were started. Continues with latency of response. Internally preoccupied. Guarded. No SI/HI. Review of Systems Review of Systems denies SOB, no abdominal pain. No chest pain. Mental Status Exam Mental Status Exam Narrative: Appearance: wearing hospital gown, no acute distress, stare blank. Behavior: minimally engaged Psychomotor: retardation noted Speech: clear, significant delay in response, minimally spontaneous TP: thought blocking TC: non in particular, brief answers to most questions Mood: good Affect: constricted SI: denies HI: none VH/AH: appears internally preoccupied Delusions: no overt delusional content noted or reported, but appears suspicious Insight/judgment: impaired x 2. Memory/cog: alert, not to situation. not formally tested at the time of interview. Diagnostics Vital Signs (24Hr): Vital Signs - 24 hr 04/14/25 20:00 04/15/25 08:00 04/15/25 08:08 Temperature 97.6 F 97.5 F Pulse Rate 92 88 88 Respiratory Rate 16 16 Blood Pressure 130/70 147/67 H 147/67 H Pulse Oximetry 95 100 Oxygen Delivery Method Room Air Room Air 04/15/25 08:09 04/15/25 08:09 Temperature Pulse Rate Respiratory Rate Blood Pressure 147/67 H 147/67 H Pulse Oximetry Oxygen Delivery Method BMI result Body Mass Index 29.8 Labs 04/10/25 20:21 04/12/25 08:16 Labs: Laboratory Results - last 48 hr 04/13/25 04/14/25 04/14/25 19:49 06:09 11:43 POC Glucose 329 H 225 H 412 H* 04/14/25 04/14/25 04/15/25 16:24 19:58 06:24 POC Glucose 385 H* 369 H* 310 H 04/15/25 04/15/25 11:47 16:18 POC Glucose 330 H 410 H* Medications Medications Current Medications Acetaminophen (Acetaminophen 325 Mg Tablet) 650 mg PO Q6H PRN PRN Reason: Headache/Pain, Scale 1-10 Acyclovir (Acyclovir 200 Mg Capsule) 400 mg PO TID [facility] Last Admin: 04/15/25 14:59 Dose: 400 mg Al Hydroxide/Mg Hydroxide (Magnesium Hydrox/Alum Hydrox 30 Ml Oral.Susp) 30 ml PO Q6H PRN PRN Reason: Heartburn/Nausea Amitriptyline HCl (Amitriptyline Hcl 10 Mg Tablet) 5 mg PO BEDTIME [facility] Last Admin: 04/14/25 20:16 Dose: 5 mg Atorvastatin Calcium (Atorvastatin Calcium 10 Mg Tablet) 10 mg PO BEDTIME [facility] Last Admin: 04/14/25 20:17 Dose: 10 mg Divalproex Sodium (Divalproex Sodium Er 500 Mg Tab.Er.24h) 1,000 mg PO BEDTIME [facility] Last Admin: 04/14/25 20:16 Dose: 1,000 mg Furosemide (Furosemide 40 Mg Tablet) 40 mg PO DAILY [facility]; Protocol Last Admin: 04/15/25 08:09 Dose: 40 mg Insulin Glargine (Insulin Glargine,Hum.Rec.Anlog 100 Unit/Ml 10 Ml Vial) 48 unit SUBCUT DAILY [facility] Last Admin: 04/15/25 08:06 Dose: 48 unit Insulin Human Lispro (Insulin Lispro 100 Unit/Ml 3 Ml Vial) 10 unit SUBCUT TIDAC [facility] Last Admin: 04/15/25 16:25 Dose: 10 unit Lisinopril (Lisinopril 40 Mg Tablet) 40 mg PO DAILY [facility]; Protocol Last Admin: 04/15/25 08:09 Dose: 40 mg Lorazepam (Lorazepam 0.5 Mg Tablet) 0.5 mg PO TID [facility] Last Admin: 04/15/25 14:59 Dose: 0.5 mg Magnesium Hydroxide (Milk Of Magnesia 30 Ml Oral.Susp) 30 ml PO DAILY PRN PRN Reason: Constipation Metoprolol Succinate (Metoprolol Succinate Er 25 Mg Tab.Er.24h) 25 mg PO DAILY [facility]; Protocol Last Admin: 04/15/25 08:08 Dose: 25 mg Non-Formulary Medication (Dulaglutide [Trulicity]) 1.5 mg SUBCUT FR [facility] Omeprazole (Omeprazole 20 Mg Capsule.Dr) 20 mg PO DAILY@30 [facility] Last Admin: 04/15/25 06:22 Dose: 20 mg Polyethylene Glycol (Polyethylene Glycol 3350 17 Gm Powd.Pack) 17 gm PO DAILY [facility] Last Admin: 04/15/25 08:12 Dose: 17 gm Prednisone (Prednisone 10 Mg Tablet) 40 mg PO DAILY [facility]; Taper Stop: 05/05/25 08:59 Last Admin: 04/15/25 08:09 Dose: 40 mg Risperidone (Risperidone 0.5 Mg Tablet) 0.5 mg PO BID [facility] Last Admin: 04/15/25 08:08 Dose: 0.5 mg Ropinirole HCl (Ropinirole Hcl 1 Mg Tablet) 1 mg PO BEDTIME [facility] Last Admin: 04/14/25 20:16 Dose: 1 mg Senna/Docusate Sodium (Sennosides/Docusate Sodium Tablet) 1 tab PO BID [facility] Last Admin: 04/15/25 08:07 Dose: 1 tab Tolterodine Tartrate (Tolterodine Tartrate La 2 Mg Cap.Er.24h) 2 mg PO DAILY [facility] Last Admin: 04/15/25 08:09 Dose: 2 mg Trazodone HCl (Trazodone Hcl 50 Mg Tablet) 50 mg PO BEDTIME PRN PRN Reason: Insomnia Last Admin: 04/13/25 20:23 Dose: 50 mg Allergies Allergies Allergy/AdvReac Type Severity Reaction Status Date / Time Penicillins Allergy Intermediate rash/swelli Verified 04/10/25 17:47 ng shellfish derived Allergy Intermediate Swelling, Verified 04/10/25 17:47 Hives Assessment & Plan Assessment & Plan (1) Schizophrenia: Qualifiers: Schizophrenia type: paranoid schizophrenia Qualified Code(s): F20.0 - Paranoid schizophrenia Status: Acute Code(s): F20.9 - Schizophrenia, unspecified Plan Ms. Alfonso is a 65 year-old woman with hx of schizophrenia. She was brought to [facility] ED by family due to not eating, not talking not taking medications. She is on insulin and had refused at home raising concern in terms of worsening of her DM. She presents with thought blocking, poverty of thought. We discussed risks, benefits and alternative treatment options. will schedule ativan 0.5mg po TID. will obtain collateral information from OP provider as to reason to d/c haldol, also considering less potent antipsychotic but also concern to give olanzapine given high blood glucose also in context that recently started on prednisone for suspicion of giant cell arteritis pending outpatient appointment with vascular surgeon for biopsy. 04/13/25 continue ativan 0.5mg po TID. risperidone 0.5mg po BID monitor worsening of catatonic like including delayed response, mutism. 04/14 continue ativan, low dose risperidone 0.5mg po BID. monitor oversedation, worsening of catatonia like symptoms. 04/15: Consider restarting haldol if BS continue elevated although Prednisone more likely culprit. Consider hospitalist consultation for DM management while patient on prednisone. Reason for continued inpatient stay Substantial Risk for: inability to function, rapid decompensation and med/psych decompensation Time Spent With Patient Time: Total time managing care of this patient today ____ minutes.
[2025-04-15 20:00] VITALS: BP 136/84; PULSE 99; RESP 16; TEMP 36.3; O2SAT 94
[2025-04-15 20:11] LABS: Glucose, Whole Blood 436 mg/dL (60-115)
[2025-04-16 06:38] LABS: Glucose, Whole Blood 96 mg/dL (60-115)
[2025-04-16 08:30] VITALS: BP 143/70; PULSE 86; RESP 16; TEMP 36.2; O2SAT 98
[2025-04-16] MEDS: Insulin Glargine,Hum.rec.anlog 100 UNIT/ML 10 ML VIAL 48 UNIT SUBCUT (09:36)
[2025-04-16 09:40] VITALS: BP 140/74; PULSE 84
[2025-04-16] MEDS: Tolterodine Tartrate LA 2 MG CAP.ER.24H PO (09:40)
[2025-04-16] MEDS: Metoprolol Succinate ER 25 MG TAB.ER.24H PO (09:40)
[2025-04-16 09:41] VITALS: BP 140/74
[2025-04-16 11:20] LABS: Glucose, Whole Blood 114 mg/dL (60-115)
--- NOTE | 2025-04-16 16:09 | P.PNPSI_ITS ---
Subjective Subjective Date of Service: 04/16/25 Reason For Visit: psychosis Interim History: Patient is cooperative. Continues with latency of response. Denies AVH but seems internally preoccupied. No SI/HI. Says she feels better than when she initially presented to the hospital. Isolates in her room. Eating well. Blood sugars are lower today than yesterday. Review of Systems Review of Systems denies SOB, no abdominal pain. No chest pain. Mental Status Exam Mental Status Exam Narrative: Appearance: wearing hospital gown, no acute distress, stare blank. Behavior: minimally engaged Psychomotor: retardation noted Speech: clear, significant delay in response, minimally spontaneous TP: thought blocking TC: non in particular, brief answers to most questions Mood: good Affect: constricted SI: denies HI: none VH/AH: appears internally preoccupied Delusions: no overt delusional content noted or reported, but appears suspicious Insight/judgment: impaired x 2. Memory/cog: alert, not to situation. not formally tested at the time of interview. Diagnostics Vital Signs (24Hr): Vital Signs - 24 hr 04/15/25 20:00 04/16/25 08:30 04/16/25 09:40 Temperature 97.3 F 97.2 F Pulse Rate 99 86 84 Respiratory Rate 16 16 Blood Pressure 136/84 143/70 H 140/74 H Pulse Oximetry 94 98 Oxygen Delivery Method Room Air Room Air 04/16/25 09:41 04/16/25 09:41 Temperature Pulse Rate Respiratory Rate Blood Pressure 140/74 H 140/74 H Pulse Oximetry Oxygen Delivery Method BMI result Body Mass Index 29.8 Labs 04/10/25 20:21 04/12/25 08:16 Labs: Laboratory Results - last 48 hr 04/14/25 04/14/25 04/15/25 16:24 19:58 06:24 POC Glucose 385 H* 369 H* 310 H 04/15/25 04/15/25 04/15/25 11:47 16:18 20:06 POC Glucose 330 H 410 H* 436 H* 04/16/25 04/16/25 06:18 11:15 POC Glucose 96 114 Medications Medications Current Medications Acetaminophen (Acetaminophen 325 Mg Tablet) 650 mg PO Q6H PRN PRN Reason: Headache/Pain, Scale 1-10 Acyclovir (Acyclovir 200 Mg Capsule) 400 mg PO TID [facility] Last Admin: 04/16/25 15:24 Dose: 400 mg Al Hydroxide/Mg Hydroxide (Magnesium Hydrox/Alum Hydrox 30 Ml Oral.Susp) 30 ml PO Q6H PRN PRN Reason: Heartburn/Nausea Amitriptyline HCl (Amitriptyline Hcl 10 Mg Tablet) 5 mg PO BEDTIME [facility] Last Admin: 04/15/25 20:38 Dose: 5 mg Atorvastatin Calcium (Atorvastatin Calcium 10 Mg Tablet) 10 mg PO BEDTIME [facility] Last Admin: 04/15/25 20:38 Dose: 10 mg Divalproex Sodium (Divalproex Sodium Er 500 Mg Tab.Er.24h) 1,000 mg PO BEDTIME [facility] Last Admin: 04/15/25 20:38 Dose: 1,000 mg Furosemide (Furosemide 40 Mg Tablet) 40 mg PO DAILY [facility]; Protocol Last Admin: 04/16/25 09:41 Dose: 40 mg Insulin Glargine (Insulin Glargine,Hum.Rec.Anlog 100 Unit/Ml 10 Ml Vial) 48 unit SUBCUT DAILY [facility] Last Admin: 04/16/25 09:36 Dose: 48 unit Insulin Human Lispro (Insulin Lispro 100 Unit/Ml 3 Ml Vial) 10 unit SUBCUT TIDAC [facility] Last Admin: 04/16/25 11:52 Dose: 10 unit Lisinopril (Lisinopril 40 Mg Tablet) 40 mg PO DAILY [facility]; Protocol Last Admin: 04/16/25 09:41 Dose: 40 mg Lorazepam (Lorazepam 0.5 Mg Tablet) 0.5 mg PO TID [facility] Last Admin: 04/16/25 15:24 Dose: 0.5 mg Magnesium Hydroxide (Milk Of Magnesia 30 Ml Oral.Susp) 30 ml PO DAILY PRN PRN Reason: Constipation Metoprolol Succinate (Metoprolol Succinate Er 25 Mg Tab.Er.24h) 25 mg PO DAILY [facility]; Protocol Last Admin: 04/16/25 09:40 Dose: 25 mg Non-Formulary Medication (Dulaglutide [Trulicity]) 1.5 mg SUBCUT FR [facility] Omeprazole (Omeprazole 20 Mg Capsule.Dr) 20 mg PO DAILY@0630 [facility] Last Admin: 04/16/25 06:15 Dose: 20 mg Polyethylene Glycol (Polyethylene Glycol 3350 17 Gm Powd.Pack) 17 gm PO DAILY [facility] Last Admin: 04/16/25 09:42 Dose: 17 gm Prednisone (Prednisone 10 Mg Tablet) 40 mg PO DAILY [facility]; Taper Stop: 05/05/25 08:59 Last Admin: 04/16/25 09:42 Dose: 40 mg Risperidone (Risperidone 0.5 Mg Tablet) 0.5 mg PO BID [facility] Last Admin: 04/16/25 09:40 Dose: 0.5 mg Ropinirole HCl (Ropinirole Hcl 1 Mg Tablet) 1 mg PO BEDTIME [facility] Last Admin: 04/15/25 20:38 Dose: 1 mg Senna/Docusate Sodium (Sennosides/Docusate Sodium Tablet) 1 tab PO BID [facility] Last Admin: 04/16/25 09:41 Dose: 1 tab Tolterodine Tartrate (Tolterodine Tartrate La 2 Mg Cap.Er.24h) 2 mg PO DAILY [facility] Last Admin: 04/16/25 09:40 Dose: 2 mg Trazodone HCl (Trazodone Hcl 50 Mg Tablet) 50 mg PO BEDTIME PRN PRN Reason: Insomnia Last Admin: 04/13/25 20:23 Dose: 50 mg Allergies Allergies Allergy/AdvReac Type Severity Reaction Status Date / Time Penicillins Allergy Intermediate rash/swelli Verified 04/10/25 17:47 ng shellfish derived Allergy Intermediate Swelling, Verified 04/10/25 17:47 Hives Assessment & Plan Assessment & Plan (1) Schizophrenia: Qualifiers: Schizophrenia type: paranoid schizophrenia Qualified Code(s): F20.0 - Paranoid schizophrenia Status: Acute Code(s): F20.9 - Schizophrenia, unspecified Plan Ms. Alfonso is a 65 year-old woman with hx of schizophrenia. She was brought to [facility] by family due to not eating, not talking not taking medications. She is on insulin and had refused at home raising concern in terms of worsening of her DM. She presents with thought blocking, poverty of thought. We discussed risks, benefits and alternative treatment options. will schedule ativan 0.5mg po TID. will obtain collateral information from OP provider as to reason to d/c haldol, also considering less potent antipsychotic but also concern to give olanzapine given high blood glucose also in context that recently started on prednisone for suspicion of giant cell arteritis pending outpatient appointment with vascular surgeon for biopsy. 04/13/25 continue ativan 0.5mg po TID. risperidone 0.5mg po BID monitor worsening of catatonic like including delayed response, mutism. 04/14 continue ativan, low dose risperidone 0.5mg po BID. monitor oversedation, worsening of catatonia like symptoms. 04/15: Consider restarting haldol if BS continue elevated although Prednisone more likely culprit. Consider hospitalist consultation for DM management while patient on prednisone. 04/16: continue current management and treatment plan. Reason for continued inpatient stay Substantial Risk for: inability to function and rapid decompensation Time Spent With Patient Time: Total time managing care of this patient today ____ minutes.
[2025-04-16 16:25] LABS: Glucose, Whole Blood 280 mg/dL (60-115)
[2025-04-16 20:00] VITALS: BP 147/67; PULSE 82; RESP 16; TEMP 36.6; O2SAT 95
[2025-04-17 00:15] LABS: Glucose, Whole Blood 200 mg/dL (60-115)
[2025-04-17 06:51] LABS: Glucose, Whole Blood 148 mg/dL (60-115)
[2025-04-17 08:00] VITALS: BP 123/67; PULSE 82; RESP 16; TEMP 36.3; O2SAT 99
[2025-04-17] MEDS: Insulin Glargine,Hum.rec.anlog 100 UNIT/ML 10 ML VIAL 48 UNIT SUBCUT (08:26)
[2025-04-17 08:27] VITALS: BP 123/67; PULSE 82
[2025-04-17] MEDS: Metoprolol Succinate ER 25 MG TAB.ER.24H PO (08:27)
[2025-04-17 08:28] VITALS: BP 123/67
[2025-04-17] MEDS: Tolterodine Tartrate LA 2 MG CAP.ER.24H PO (08:28)
[2025-04-17 08:29] VITALS: BP 123/67
--- NOTE | 2025-04-17 08:33 | HO.PSYCHPN ---
Subjective Subjective Date of Service: 04/17/25 Reason For Visit: psychosis Subjective Notes: Conditional Voluntary Interim History: Pt is sleeping through the night. She is visible at meals. She denies any concerns. She continues to present with delayed of speech. She denies SI/HI. She denies VH/AH. No overt delusional content noted or reported. taking medications as prescribed. She is mostly in bed. denies depression. Medication Compliance: Yes Side effects from medications: No Attending Groups: No Diagnostics Vital Signs (24Hr): Vital Signs - 24 hr 04/16/25 09:40 04/16/25 09:41 04/16/25 09:41 Temperature Pulse Rate 84 Respiratory Rate Blood Pressure 140/74 H 140/74 H 140/74 H Pulse Oximetry Oxygen Delivery Method 04/16/25 20:00 04/17/25 08:27 04/17/25 08:28 Temperature 97.8 F Pulse Rate 82 82 Respiratory Rate 16 Blood Pressure 147/67 H 123/67 123/67 Pulse Oximetry 95 Oxygen Delivery Method Room Air 04/17/25 08:29 Temperature Pulse Rate Respiratory Rate Blood Pressure 123/67 Pulse Oximetry Oxygen Delivery Method BMI result Body Mass Index 29.8 Labs 04/10/25 20:21 04/12/25 08:16 Labs: Laboratory Results - last 48 hr 04/15/25 04/15/25 04/15/25 11:47 16:18 20:06 POC Glucose 330 H 410 H* 436 H* 04/16/25 04/16/25 04/16/25 06:18 11:15 16:21 POC Glucose 96 114 280 H 04/17/25 04/17/25 00:10 06:43 POC Glucose 200 H 148 H Medications Medications Current Medications Acetaminophen (Acetaminophen 325 Mg Tablet) 650 mg PO Q6H PRN PRN Reason: Headache/Pain, Scale 1-10 Acyclovir (Acyclovir 200 Mg Capsule) 400 mg PO TID [facility] Last Admin: 04/17/25 08:29 Dose: 400 mg Al Hydroxide/Mg Hydroxide (Magnesium Hydrox/Alum Hydrox 30 Ml Oral.Susp) 30 ml PO Q6H PRN PRN Reason: Heartburn/Nausea Amitriptyline HCl (Amitriptyline Hcl 10 Mg Tablet) 5 mg PO BEDTIME [facility] Last Admin: 04/16/25 20:45 Dose: 5 mg Atorvastatin Calcium (Atorvastatin Calcium 10 Mg Tablet) 10 mg PO BEDTIME [facility] Last Admin: 04/16/25 20:45 Dose: 10 mg Divalproex Sodium (Divalproex Sodium Er 500 Mg Tab.Er.24h) 1,000 mg PO BEDTIME [facility] Last Admin: 04/16/25 20:45 Dose: 1,000 mg Furosemide (Furosemide 40 Mg Tablet) 40 mg PO DAILY [facility]; Protocol Last Admin: 04/17/25 08:28 Dose: 40 mg Insulin Glargine (Insulin Glargine,Hum.Rec.Anlog 100 Unit/Ml 10 Ml Vial) 48 unit SUBCUT DAILY [facility] Last Admin: 04/17/25 08:26 Dose: 48 unit Insulin Human Lispro (Insulin Lispro 100 Unit/Ml 3 Ml Vial) 10 unit SUBCUT TIDAC [facility] Last Admin: 04/17/25 08:25 Dose: 10 unit Lisinopril (Lisinopril 40 Mg Tablet) 40 mg PO DAILY [facility]; Protocol Last Admin: 04/17/25 08:29 Dose: 40 mg Lorazepam (Lorazepam 0.5 Mg Tablet) 0.5 mg PO TID [facility] Last Admin: 04/17/25 08:28 Dose: 0.5 mg Magnesium Hydroxide (Milk Of Magnesia 30 Ml Oral.Susp) 30 ml PO DAILY PRN PRN Reason: Constipation Metoprolol Succinate (Metoprolol Succinate Er 25 Mg Tab.Er.24h) 25 mg PO DAILY [facility]; Protocol Last Admin: 04/17/25 08:27 Dose: 25 mg Non-Formulary Medication (Dulaglutide [Trulicity]) 1.5 mg SUBCUT FR [facility] Omeprazole (Omeprazole 20 Mg Capsule.Dr) 20 mg PO DAILY@0630 [facility] Last Admin: 04/17/25 06:41 Dose: 20 mg Polyethylene Glycol (Polyethylene Glycol 3350 17 Gm Powd.Pack) 17 gm PO DAILY [facility] Last Admin: 04/17/25 08:31 Dose: 17 gm Prednisone (Prednisone 10 Mg Tablet) 40 mg PO DAILY [facility]; Taper Stop: 05/05/25 08:59 Last Admin: 04/17/25 08:28 Dose: 40 mg Risperidone (Risperidone 0.5 Mg Tablet) 0.5 mg PO BID [facility] Last Admin: 04/17/25 08:28 Dose: 0.5 mg Ropinirole HCl (Ropinirole Hcl 1 Mg Tablet) 1 mg PO BEDTIME [facility] Last Admin: 04/16/25 20:45 Dose: 1 mg Senna/Docusate Sodium (Sennosides/Docusate Sodium Tablet) 1 tab PO BID [facility] Last Admin: 04/17/25 08:28 Dose: 1 tab Tolterodine Tartrate (Tolterodine Tartrate La 2 Mg Cap.Er.24h) 2 mg PO DAILY [facility] Last Admin: 04/17/25 08:28 Dose: 2 mg Trazodone HCl (Trazodone Hcl 50 Mg Tablet) 50 mg PO BEDTIME PRN PRN Reason: Insomnia Last Admin: 04/13/25 20:23 Dose: 50 mg Allergies Allergies Allergy/AdvReac Type Severity Reaction Status Date / Time Penicillins Allergy Intermediate rash/swelli Verified 04/10/25 17:47 ng shellfish derived Allergy Intermediate Swelling, Verified 04/10/25 17:47 Hives Assessment & Plan Assessment & Plan (1) Schizophrenia: Qualifiers: Schizophrenia type: paranoid schizophrenia Qualified Code(s): F20.0 - Paranoid schizophrenia Status: Acute Code(s): F20.9 - Schizophrenia, unspecified Plan Ms. Alfonso is a 65 year-old woman with hx of schizophrenia. She was brought to [facility] by family due to not eating, not talking not taking medications. She is on insulin and had refused at home raising concern in terms of worsening of her DM. She presents with thought blocking, poverty of thought. We discussed risks, benefits and alternative treatment options. will schedule ativan 0.5mg po TID. will obtain collateral information from OP provider as to reason to d/c haldol, also considering less potent antipsychotic but also concern to give olanzapine given high blood glucose also in context that recently started on prednisone for suspicion of giant cell arteritis pending outpatient appointment with vascular surgeon for biopsy. 04/13/25 continue ativan 0.5mg po TID. risperidone 0.5mg po BID monitor worsening of catatonic like including delayed response, mutism. 04/14 continue ativan, low dose risperidone 0.5mg po BID. monitor oversedation, worsening of catatonia like symptoms. 04/15: Consider restarting haldol if BS continue elevated although Prednisone more likely culprit. Consider hospitalist consultation for DM management while patient on prednisone. 04/16: continue current management and treatment plan. 04/17 continue tx. will try higher dose of ativan as benefit is unclear. Reason for continued inpatient stay Substantial Risk for: inability to function Time Spent With Patient Time: Total time managing care of this patient today ____ minutes.
[2025-04-17 11:20] LABS: Glucose, Whole Blood 270 mg/dL (60-115)
[2025-04-17 16:25] LABS: Glucose, Whole Blood 405 mg/dL (60-115)
--- NOTE | 2025-04-17 16:50 | PC.NURSE ---
Pt's POC 405 before supper. Pt is taking Prednisone. Covered with Lispro Ins. 10 units as ordered. Provider Bette KEYES notified. Will continue to monitor.
[2025-04-17 20:00] VITALS: BP 109/60; PULSE 103; RESP 16; O2SAT 94
[2025-04-17 21:04] LABS: Glucose, Whole Blood 353 mg/dL (60-115)
[2025-04-18 06:43] LABS: Glucose, Whole Blood 151 mg/dL (60-115)
[2025-04-18 08:00] VITALS: BP 118/58; PULSE 87; RESP 16; TEMP 36.3; O2SAT 94
[2025-04-18] MEDS: Insulin Glargine,Hum.rec.anlog 100 UNIT/ML 10 ML VIAL 48 UNIT SUBCUT (08:19)
[2025-04-18] MEDS: Metoprolol Succinate ER 25 MG TAB.ER.24H PO (08:20)
[2025-04-18] MEDS: Tolterodine Tartrate LA 2 MG CAP.ER.24H PO (08:20)
[2025-04-18 11:27] LABS: Glucose, Whole Blood 270 mg/dL (60-115)
[2025-04-18] MEDS: Milk of Magnesia 30 ML ORAL.SUSP PO (12:08)
[2025-04-18 16:04] LABS: Glucose, Whole Blood 254 mg/dL (60-115)
--- NOTE | 2025-04-18 16:57 | P.PNPSI_ITS ---
Subjective Subjective Date of Service: 04/18/25 Reason For Visit: psychosis Subjective Notes: Conditional Voluntary Interim History: Pt is sleeping through the night. Pt seems more sedated with higher dose of ativan, will lower as there is no additional therapeutic benefit. No SI/HI. No overt paranoid delusions. Medication Compliance: Yes Review of Systems Review of Systems denies SOB, no abdominal pain. No chest pain. Mental Status Exam Mental Status Exam Narrative: Appearance: wearing hospital gown, no acute distress, stare blank. Behavior: minimally engaged Psychomotor: retardation noted Speech: clear, significant delay in response, minimally spontaneous TP: thought blocking TC: non in particular, brief answers to most questions Mood: good Affect: constricted SI: denies HI: none VH/AH: appears internally preoccupied Delusions: no overt delusional content noted or reported, but appears suspicious Insight/judgment: impaired x 2. Memory/cog: alert, not to situation. not formally tested at the time of interview. Diagnostics Vital Signs (24Hr): Vital Signs - 24 hr 04/17/25 20:00 04/18/25 08:00 Temperature 97.3 F Pulse Rate 103 H 87 Respiratory Rate 16 16 Blood Pressure 109/60 118/58 L Pulse Oximetry 94 94 Oxygen Delivery Method Room Air Room Air BMI result Body Mass Index 29.8 Labs 04/10/25 20:21 04/12/25 08:16 Labs: Laboratory Results - last 48 hr 04/17/25 04/17/25 04/17/25 00:10 06:43 11:17 POC Glucose 200 H 148 H 270 H 04/17/25 04/17/25 04/18/25 16:20 21:00 06:32 POC Glucose 405 H* 353 H* 151 H 04/18/25 04/18/25 10:56 15:56 POC Glucose 270 H 254 H Medications Medications Current Medications Acetaminophen (Acetaminophen 325 Mg Tablet) 650 mg PO Q6H PRN PRN Reason: Headache/Pain, Scale 1-10 Acyclovir (Acyclovir 200 Mg Capsule) 400 mg PO TID [facility] Last Admin: 04/18/25 15:04 Dose: 400 mg Al Hydroxide/Mg Hydroxide (Magnesium Hydrox/Alum Hydrox 30 Ml Oral.Susp) 30 ml PO Q6H PRN PRN Reason: Heartburn/Nausea Amitriptyline HCl (Amitriptyline Hcl 10 Mg Tablet) 5 mg PO BEDTIME [facility] Last Admin: 04/17/25 20:47 Dose: 5 mg Atorvastatin Calcium (Atorvastatin Calcium 10 Mg Tablet) 10 mg PO BEDTIME [facility] Last Admin: 04/17/25 20:46 Dose: 10 mg Dextrose (Dextrose 50 % 25 Gm/50 Ml Syringe) 25 gm IVPUSH Q15M PRN; Protocol PRN Reason: per Hypoglycemia Standing Ord. Divalproex Sodium (Divalproex Sodium Er 500 Mg Tab.Er.24h) 1,000 mg PO BEDTIME [facility] Last Admin: 04/17/25 20:47 Dose: 1,000 mg Furosemide (Furosemide 40 Mg Tablet) 40 mg PO DAILY [facility]; Protocol Last Admin: 04/18/25 08:21 Dose: 40 mg Glucose (Glucose Gel 15 Gm Gel..Gram.) 15 gm PO Q15M PRN; Protocol PRN Reason: per Hypoglycemia Standing Ord. Insulin Glargine (Insulin Glargine,Hum.Rec.Anlog 100 Unit/Ml 10 Ml Vial) 48 unit SUBCUT DAILY [facility] Last Admin: 04/18/25 08:19 Dose: 48 unit Insulin Human Lispro (Insulin Lispro 100 Unit/Ml 3 Ml Vial) 10 unit SUBCUT TIDAC [facility] Last Admin: 04/18/25 16:38 Dose: 10 unit Insulin Human Lispro (Insulin Lispro 100 Unit/Ml 3 Ml Vial) 0 unit SUBCUT Q6H PRN; Protocol PRN Reason: elevated blood sugar Last Admin: 04/17/25 22:06 Dose: 10 unit Lisinopril (Lisinopril 40 Mg Tablet) 40 mg PO DAILY [facility]; Protocol Last Admin: 04/18/25 08:21 Dose: 40 mg Magnesium Hydroxide (Milk Of Magnesia 30 Ml Oral.Susp) 30 ml PO DAILY PRN PRN Reason: Constipation Last Admin: 04/18/25 12:08 Dose: 30 ml Metoprolol Succinate (Metoprolol Succinate Er 25 Mg Tab.Er.24h) 25 mg PO DAILY [facility]; Protocol Last Admin: 04/18/25 08:20 Dose: 25 mg Omeprazole (Omeprazole 20 Mg Capsule.Dr) 20 mg PO DAILY@0630 [facility] Last Admin: 04/18/25 06:29 Dose: 20 mg Polyethylene Glycol (Polyethylene Glycol 3350 17 Gm Powd.Pack) 17 gm PO DAILY [facility] Last Admin: 04/18/25 09:19 Dose: 17 gm Prednisone (Prednisone 10 Mg Tablet) 40 mg PO DAILY [facility]; Taper Stop: 05/05/25 08:59 Last Admin: 04/18/25 08:21 Dose: 40 mg Risperidone (Risperidone 0.5 Mg Tablet) 0.5 mg PO BID [facility] Last Admin: 04/18/25 08:20 Dose: 0.5 mg Ropinirole HCl (Ropinirole Hcl 1 Mg Tablet) 1 mg PO BEDTIME [facility] Last Admin: 04/17/25 20:48 Dose: 1 mg Senna/Docusate Sodium (Sennosides/Docusate Sodium Tablet) 1 tab PO BID [facility] Last Admin: 04/18/25 08:20 Dose: 1 tab Tolterodine Tartrate (Tolterodine Tartrate La 2 Mg Cap.Er.24h) 2 mg PO DAILY [facility] Last Admin: 04/18/25 08:20 Dose: 2 mg Trazodone HCl (Trazodone Hcl 50 Mg Tablet) 50 mg PO BEDTIME PRN PRN Reason: Insomnia Last Admin: 04/13/25 20:23 Dose: 50 mg Allergies Allergies Allergy/AdvReac Type Severity Reaction Status Date / Time Penicillins Allergy Intermediate rash/swelli Verified 04/10/25 17:47 ng shellfish derived Allergy Intermediate Swelling, Verified 04/10/25 17:47 Hives Assessment & Plan Assessment & Plan (1) Schizophrenia: Qualifiers: Schizophrenia type: paranoid schizophrenia Qualified Code(s): F20.0 - Paranoid schizophrenia Status: Acute Code(s): F20.9 - Schizophrenia, unspecified Plan Ms. Alfonso is a 65 year-old woman with hx of schizophrenia. She was brought to [facility] by family due to not eating, not talking not taking medications. She is on insulin and had refused at home raising concern in terms of worsening of her DM. She presents with thought blocking, poverty of thought. We discussed risks, benefits and alternative treatment options. will schedule ativan 0.5mg po TID. will obtain collateral information from OP provider as to reason to d/c haldol, also considering less potent antipsychotic but also concern to give olanzapine given high blood glucose also in context that recently started on prednisone for suspicion of giant cell arteritis pending outpatient appointment with vascular surgeon for biopsy. 04/13/25 continue ativan 0.5mg po TID. risperidone 0.5mg po BID monitor worsening of catatonic like including delayed response, mutism. 04/14 continue ativan, low dose risperidone 0.5mg po BID. monitor oversedation, worsening of catatonia like symptoms. 04/15: Consider restarting haldol if BS continue elevated although Prednisone more likely culprit. Consider hospitalist consultation for DM management while patient on prednisone. 04/16: continue current management and treatment plan. 04/17 continue tx. will try higher dose of ativan as benefit is unclear. 04/18 will dc/ ativan as she does appear somewhat sedated and no therapeutic benefit with higher dose. Reason for continued inpatient stay Substantial Risk for: inability to function Time Spent With Patient Time: Total time managing care of this patient today ____ minutes.
[2025-04-18 19:54] LABS: Glucose, Whole Blood 314 mg/dL (60-115)
[2025-04-18 20:00] VITALS: BP 116/60; PULSE 98; RESP 16; TEMP 36.8; O2SAT 98
[2025-04-19 06:25] LABS: Glucose, Whole Blood 121 mg/dL (60-115)
[2025-04-19 08:00] VITALS: BP 115/57; PULSE 78; RESP 16; TEMP 36.7; O2SAT 97
[2025-04-19] MEDS: Metoprolol Succinate ER 25 MG TAB.ER.24H PO (08:25)
[2025-04-19] MEDS: Tolterodine Tartrate LA 2 MG CAP.ER.24H PO (08:25)
[2025-04-19] MEDS: Insulin Glargine,Hum.rec.anlog 100 UNIT/ML 10 ML VIAL 48 UNIT SUBCUT (08:30)
[2025-04-19 11:27] LABS: Glucose, Whole Blood 323 mg/dL (60-115)
[2025-04-19 16:36] LABS: Glucose, Whole Blood 411 mg/dL (60-115)
--- NOTE | 2025-04-19 17:30 | PC.NURSE ---
Blood sugar prior to supper was 411 tiger text to manuelito and received order for extra insulin for total of 14 units.
--- NOTE | 2025-04-19 19:17 | HO.PSYCHPN ---
Subjective Subjective Date of Service: 04/19/25 Reason For Visit: psychosis Subjective Notes: Conditional Voluntary Interim History: Pt more awake today. She is visible on the unit, poverty of thought. No SI/HI. No overt delusional content noted or reported. taking medications. Review of Systems Review of Systems denies SOB, no abdominal pain. No chest pain. Mental Status Exam Mental Status Exam Narrative: Appearance: wearing hospital gown, no acute distress, stare blank. Behavior: minimally engaged Psychomotor: retardation noted Speech: clear, significant delay in response, minimally spontaneous TP: thought blocking TC: non in particular, brief answers to most questions Mood: good Affect: constricted SI: denies HI: none VH/AH: appears internally preoccupied Delusions: no overt delusional content noted or reported, but appears suspicious Insight/judgment: impaired x 2. Memory/cog: alert, not to situation. not formally tested at the time of interview. Diagnostics Vital Signs (24Hr): Vital Signs - 24 hr 04/18/25 20:00 04/19/25 08:00 Temperature 98.2 F 98.1 F Pulse Rate 98 78 Respiratory Rate 16 16 Blood Pressure 116/60 115/57 L Pulse Oximetry 98 97 Oxygen Delivery Method Room Air Room Air BMI result Body Mass Index 29.8 Labs 04/10/25 20:21 04/12/25 08:16 Labs: Laboratory Results - last 48 hr 04/17/25 04/18/25 04/18/25 21:00 06:32 10:56 POC Glucose 353 H* 151 H 270 H 04/18/25 04/18/25 04/19/25 15:56 19:46 06:12 POC Glucose 254 H 314 H 121 H 04/19/25 04/19/25 11:14 16:32 POC Glucose 323 H 411 H* Medications Medications Current Medications Acetaminophen (Acetaminophen 325 Mg Tablet) 650 mg PO Q6H PRN PRN Reason: Headache/Pain, Scale 1-10 Acyclovir (Acyclovir 200 Mg Capsule) 400 mg PO TID [facility] Last Admin: 04/19/25 14:58 Dose: 400 mg Al Hydroxide/Mg Hydroxide (Magnesium Hydrox/Alum Hydrox 30 Ml Oral.Susp) 30 ml PO Q6H PRN PRN Reason: Heartburn/Nausea Amitriptyline HCl (Amitriptyline Hcl 10 Mg Tablet) 5 mg PO BEDTIME [facility] Last Admin: 04/18/25 20:21 Dose: 5 mg Atorvastatin Calcium (Atorvastatin Calcium 10 Mg Tablet) 10 mg PO BEDTIME [facility] Last Admin: 04/18/25 20:21 Dose: 10 mg Dextrose (Dextrose 50 % 25 Gm/50 Ml Syringe) 25 gm IVPUSH Q15M PRN; Protocol PRN Reason: per Hypoglycemia Standing Ord. Divalproex Sodium (Divalproex Sodium Er 500 Mg Tab.Er.24h) 1,000 mg PO BEDTIME [facility] Last Admin: 04/18/25 20:21 Dose: 1,000 mg Furosemide (Furosemide 40 Mg Tablet) 40 mg PO DAILY [facility]; Protocol Last Admin: 04/19/25 08:26 Dose: 40 mg Glucose (Glucose Gel 15 Gm Gel..Gram.) 15 gm PO Q15M PRN; Protocol PRN Reason: per Hypoglycemia Standing Ord. Insulin Glargine (Insulin Glargine,Hum.Rec.Anlog 100 Unit/Ml 10 Ml Vial) 48 unit SUBCUT DAILY [facility] Last Admin: 04/19/25 08:30 Dose: 48 unit Insulin Human Lispro (Insulin Lispro 100 Unit/Ml 3 Ml Vial) 10 unit SUBCUT TIDAC [facility] Last Admin: 04/19/25 17:27 Dose: 10 unit Insulin Human Lispro (Insulin Lispro 100 Unit/Ml 3 Ml Vial) 0 unit SUBCUT Q6H PRN; Protocol PRN Reason: elevated blood sugar Last Admin: 04/17/25 22:06 Dose: 10 unit Lisinopril (Lisinopril 40 Mg Tablet) 40 mg PO DAILY [facility]; Protocol Last Admin: 04/19/25 08:26 Dose: 40 mg Magnesium Hydroxide (Milk Of Magnesia 30 Ml Oral.Susp) 30 ml PO DAILY PRN PRN Reason: Constipation Last Admin: 04/18/25 12:08 Dose: 30 ml Metoprolol Succinate (Metoprolol Succinate Er 25 Mg Tab.Er.24h) 25 mg PO DAILY [facility]; Protocol Last Admin: 04/19/25 08:25 Dose: 25 mg Omeprazole (Omeprazole 20 Mg Capsule.Dr) 20 mg PO DAILY@0630 [facility] Last Admin: 04/19/25 06:13 Dose: 20 mg Polyethylene Glycol (Polyethylene Glycol 3350 17 Gm Powd.Pack) 17 gm PO DAILY [facility] Last Admin: 04/19/25 08:43 Dose: 17 gm Prednisone (Prednisone 10 Mg Tablet) 40 mg PO DAILY [facility]; Taper Stop: 05/05/25 08:59 Last Admin: 04/19/25 08:42 Dose: 40 mg Risperidone (Risperidone 0.5 Mg Tablet) 0.5 mg PO BID [facility] Last Admin: 04/19/25 08:25 Dose: 0.5 mg Ropinirole HCl (Ropinirole Hcl 1 Mg Tablet) 1 mg PO BEDTIME [facility] Last Admin: 04/18/25 20:21 Dose: 1 mg Senna/Docusate Sodium (Sennosides/Docusate Sodium Tablet) 1 tab PO BID [facility] Last Admin: 04/19/25 08:26 Dose: 1 tab Tolterodine Tartrate (Tolterodine Tartrate La 2 Mg Cap.Er.24h) 2 mg PO DAILY [facility] Last Admin: 04/19/25 08:25 Dose: 2 mg Trazodone HCl (Trazodone Hcl 50 Mg Tablet) 50 mg PO BEDTIME PRN PRN Reason: Insomnia Last Admin: 04/13/25 20:23 Dose: 50 mg Allergies Allergies Allergy/AdvReac Type Severity Reaction Status Date / Time Penicillins Allergy Intermediate rash/swelli Verified 04/10/25 17:47 ng shellfish derived Allergy Intermediate Swelling, Verified 04/10/25 17:47 Hives Assessment & Plan Assessment & Plan (1) Schizophrenia: Qualifiers: Schizophrenia type: paranoid schizophrenia Qualified Code(s): F20.0 - Paranoid schizophrenia Status: Acute Code(s): F20.9 - Schizophrenia, unspecified Plan Ms. Alfonso is a 65 year-old woman with hx of schizophrenia. She was brought to [facility] ED by family due to not eating, not talking not taking medications. She is on insulin and had refused at home raising concern in terms of worsening of her DM. She presents with thought blocking, poverty of thought. We discussed risks, benefits and alternative treatment options. will schedule ativan 0.5mg po TID. will obtain collateral information from OP provider as to reason to d/c haldol, also considering less potent antipsychotic but also concern to give olanzapine given high blood glucose also in context that recently started on prednisone for suspicion of giant cell arteritis pending outpatient appointment with vascular surgeon for biopsy. 04/13/25 continue ativan 0.5mg po TID. risperidone 0.5mg po BID monitor worsening of catatonic like including delayed response, mutism. 04/14 continue ativan, low dose risperidone 0.5mg po BID. monitor oversedation, worsening of catatonia like symptoms. 04/15: Consider restarting haldol if BS continue elevated although Prednisone more likely culprit. Consider hospitalist consultation for DM management while patient on prednisone. 04/16: continue current management and treatment plan. 04/17 continue tx. will try higher dose of ativan as benefit is unclear. 04/18 stop ativan- no therapeutic benefit with higher dose 04/19 continue tx. Reason for continued inpatient stay Substantial Risk for: inability to function Time Spent With Patient Time: Total time managing care of this patient today ____ minutes.
[2025-04-19 20:00] VITALS: BP 109/60; PULSE 90; RESP 16; TEMP 37; O2SAT 96
[2025-04-19 20:50] LABS: Glucose, Whole Blood 333 mg/dL (60-115)
[2025-04-20 06:37] LABS: Glucose, Whole Blood 175 mg/dL (60-115)
[2025-04-20] MEDS: Insulin Glargine,Hum.rec.anlog 100 UNIT/ML 10 ML VIAL 48 UNIT SUBCUT (08:21)
[2025-04-20 08:23] VITALS: BP 110/57; PULSE 84; RESP 20; TEMP 36.1; O2SAT 97
[2025-04-20] MEDS: Tolterodine Tartrate LA 2 MG CAP.ER.24H PO (08:24)
[2025-04-20] MEDS: Metoprolol Succinate ER 25 MG TAB.ER.24H PO (08:25)
[2025-04-20 11:28] LABS: Glucose, Whole Blood 311 mg/dL (60-115)
--- NOTE | 2025-04-20 12:01 | P.PNPSI_ITS ---
Subjective Subjective Date of Service: 04/20/25 Reason For Visit: psychosis Subjective Notes: Conditional Voluntary Interim History: Pt sleeping through the night. She has been visible for meals, not attending groups. Her speech is more spontaneous but poverty of thought noted. No SI/HI. No overt psychosis or delusional content noted or reported. Medication Compliance: Yes Review of Systems Review of Systems denies SOB, no abdominal pain. No chest pain. Mental Status Exam Mental Status Exam Narrative: Appearance: wearing hospital gown, no acute distress, stare blank. Behavior: minimally engaged Psychomotor: retardation noted Speech: clear, significant delay in response, minimally spontaneous TP: thought blocking TC: non in particular, brief answers to most questions Mood: good Affect: constricted SI: denies HI: none VH/AH: appears internally preoccupied Delusions: no overt delusional content noted or reported, but appears suspicious Insight/judgment: impaired x 2. Memory/cog: alert, not to situation. not formally tested at the time of interview. Diagnostics Vital Signs (24Hr): Vital Signs - 24 hr 04/19/25 20:00 04/20/25 08:23 Temperature 98.6 F 97.0 F Pulse Rate 90 84 Respiratory Rate 16 20 Blood Pressure 109/60 110/57 L Pulse Oximetry 96 97 Oxygen Delivery Method Room Air Room Air BMI result Body Mass Index 29.8 Labs 04/10/25 20:21 04/12/25 08:16 Labs: Laboratory Results - last 48 hr 04/18/25 04/18/25 04/19/25 15:56 19:46 06:12 POC Glucose 254 H 314 H 121 H 04/19/25 04/19/25 04/19/25 11:14 16:32 20:25 POC Glucose 323 H 411 H* 333 H 04/20/25 04/20/25 06:21 11:21 POC Glucose 175 H 311 H Medications Medications Current Medications Acetaminophen (Acetaminophen 325 Mg Tablet) 650 mg PO Q6H PRN PRN Reason: Headache/Pain, Scale 1-10 Acyclovir (Acyclovir 200 Mg Capsule) 400 mg PO TID [facility] Last Admin: 04/20/25 08:25 Dose: 400 mg Al Hydroxide/Mg Hydroxide (Magnesium Hydrox/Alum Hydrox 30 Ml Oral.Susp) 30 ml PO Q6H PRN PRN Reason: Heartburn/Nausea Amitriptyline HCl (Amitriptyline Hcl 10 Mg Tablet) 5 mg PO BEDTIME [facility] Last Admin: 04/19/25 20:21 Dose: 5 mg Atorvastatin Calcium (Atorvastatin Calcium 10 Mg Tablet) 10 mg PO BEDTIME [facility] Last Admin: 04/19/25 20:22 Dose: 10 mg Dextrose (Dextrose 50 % 25 Gm/50 Ml Syringe) 25 gm IVPUSH Q15M PRN; Protocol PRN Reason: per Hypoglycemia Standing Ord. Divalproex Sodium (Divalproex Sodium Er 500 Mg Tab.Er.24h) 1,000 mg PO BEDTIME [facility] Last Admin: 04/19/25 20:22 Dose: 1,000 mg Furosemide (Furosemide 40 Mg Tablet) 40 mg PO DAILY [facility]; Protocol Last Admin: 04/20/25 08:25 Dose: 40 mg Glucose (Glucose Gel 15 Gm Gel..Gram.) 15 gm PO Q15M PRN; Protocol PRN Reason: per Hypoglycemia Standing Ord. Insulin Glargine (Insulin Glargine,Hum.Rec.Anlog 100 Unit/Ml 10 Ml Vial) 48 unit SUBCUT DAILY [facility] Last Admin: 04/20/25 08:21 Dose: 48 unit Insulin Human Lispro (Insulin Lispro 100 Unit/Ml 3 Ml Vial) 10 unit SUBCUT TIDAC [facility] Last Admin: 04/20/25 11:31 Dose: 10 unit Lisinopril (Lisinopril 40 Mg Tablet) 40 mg PO DAILY [facility]; Protocol Last Admin: 04/20/25 08:24 Dose: 40 mg Magnesium Hydroxide (Milk Of Magnesia 30 Ml Oral.Susp) 30 ml PO DAILY PRN PRN Reason: Constipation Last Admin: 04/18/25 12:08 Dose: 30 ml Metoprolol Succinate (Metoprolol Succinate Er 25 Mg Tab.Er.24h) 25 mg PO DAILY [facility]; Protocol Last Admin: 04/20/25 08:25 Dose: 25 mg Omeprazole (Omeprazole 20 Mg Capsule.Dr) 20 mg PO DAILY@0630 [facility] Last Admin: 04/20/25 06:18 Dose: 20 mg Polyethylene Glycol (Polyethylene Glycol 3350 17 Gm Powd.Pack) 17 gm PO DAILY [facility] Last Admin: 04/20/25 08:27 Dose: 17 gm Prednisone (Prednisone 10 Mg Tablet) 40 mg PO DAILY [facility]; Taper Stop: 05/05/25 08:59 Last Admin: 04/20/25 08:26 Dose: 40 mg Risperidone (Risperidone 0.5 Mg Tablet) 0.5 mg PO BID [facility] Last Admin: 04/20/25 08:25 Dose: 0.5 mg Ropinirole HCl (Ropinirole Hcl 1 Mg Tablet) 1 mg PO BEDTIME [facility] Last Admin: 04/19/25 20:22 Dose: 1 mg Senna/Docusate Sodium (Sennosides/Docusate Sodium Tablet) 1 tab PO BID [facility] Last Admin: 04/20/25 08:24 Dose: 1 tab Tolterodine Tartrate (Tolterodine Tartrate La 2 Mg Cap.Er.24h) 2 mg PO DAILY [facility] Last Admin: 04/20/25 08:24 Dose: 2 mg Trazodone HCl (Trazodone Hcl 50 Mg Tablet) 50 mg PO BEDTIME PRN PRN Reason: Insomnia Last Admin: 04/13/25 20:23 Dose: 50 mg Allergies Allergies Allergy/AdvReac Type Severity Reaction Status Date / Time Penicillins Allergy Intermediate rash/swelli Verified 04/10/25 17:47 ng shellfish derived Allergy Intermediate Swelling, Verified 04/10/25 17:47 Hives Assessment & Plan Assessment & Plan (1) Schizophrenia: Qualifiers: Schizophrenia type: paranoid schizophrenia Qualified Code(s): F20.0 - Paranoid schizophrenia Status: Acute Code(s): F20.9 - Schizophrenia, unspecified Plan Ms. Alfonso is a 65 year-old woman with hx of schizophrenia. She was brought to [facility] ED by family due to not eating, not talking not taking medications. She is on insulin and had refused at home raising concern in terms of worsening of her DM. She presents with thought blocking, poverty of thought. We discussed risks, benefits and alternative treatment options. will schedule ativan 0.5mg po TID. will obtain collateral information from OP provider as to reason to d/c haldol, also considering less potent antipsychotic but also concern to give olanzapine given high blood glucose also in context that recently started on prednisone for suspicion of giant cell arteritis pending outpatient appointment with vascular surgeon for biopsy. 04/13/25 continue ativan 0.5mg po TID. risperidone 0.5mg po BID monitor worsening of catatonic like including delayed response, mutism. 04/14 continue ativan, low dose risperidone 0.5mg po BID. monitor oversedation, worsening of catatonia like symptoms. 04/15: Consider restarting haldol if BS continue elevated although Prednisone more likely culprit. Consider hospitalist consultation for DM management while patient on prednisone. 04/16: continue current management and treatment plan. 04/17 continue tx. will try higher dose of ativan as benefit is unclear. 04/18 stop ativan- no therapeutic benefit with higher dose 04/19 continue tx. 04/20 continue tx. Reason for continued inpatient stay Substantial Risk for: inability to function Time Spent With Patient Time: Total time managing care of this patient today ____ minutes.
--- NOTE | 2025-04-20 12:04 | PC.NURSE ---
Providers: Irineo Neal and unit assembler notified of multiple insulin orders with request for clarification. Hospitalist consult ordered by Dr Milton to review.
--- NOTE | 2025-04-20 14:14 | PM.EVENT ---
Event Note Date of Service: 04/20/25 Event Note: Blood sugars continued to be elevated 200's to 300s, we will increase Lantus by 4 units continue to monitor. Time Spent With Patient Time: Total time managing care of this patient today ____ minutes.
[2025-04-20 16:32] LABS: Glucose, Whole Blood 318 mg/dL (60-115)
[2025-04-20 20:00] VITALS: BP 142/68; PULSE 92; RESP 16; TEMP 36.6; O2SAT 95
[2025-04-20 21:33] LABS: Glucose, Whole Blood 235 mg/dL (60-115)
[2025-04-21 07:00] LABS: Glucose, Whole Blood 75 mg/dL (60-115)
[2025-04-21 08:00] VITALS: BP 152/87; PULSE 86; RESP 15; TEMP 36.4; O2SAT 96
--- NOTE | 2025-04-21 08:51 | PC.NURSE ---
Pt.'s blood glucose was 75 this morning. this insurance underwriter asked provider if she wanted her to hold any insulin. She stated to give long acting and hold short acting.
[2025-04-21] MEDS: Insulin Glargine,Hum.rec.anlog 100 UNIT/ML 10 ML VIAL 52 UNIT SUBCUT (08:56)
[2025-04-21] MEDS: Metoprolol Succinate ER 25 MG TAB.ER.24H PO (08:57)
[2025-04-21] MEDS: Tolterodine Tartrate LA 2 MG CAP.ER.24H PO (08:57)
--- NOTE | 2025-04-21 12:03 | PC.NURSE ---
Pt lunch time [id number]=[phone]. reported to provider via [employer].
[2025-04-21 12:04] LABS: Glucose, Whole Blood 358 mg/dL (60-115)
[2025-04-21 16:33] LABS: Glucose, Whole Blood 332 mg/dL (60-115)
--- NOTE | 2025-04-21 18:06 | HO.PSYCHPN ---
Subjective Subjective Date of Service: 04/21/25 Reason For Visit: psychosis Subjective Notes: Conditional Voluntary Interim History: Pt sleeping through the night. She presents with a slightly brighter affect. She has been visible for meals, not attending groups. Her speech is more spontaneous but poverty of thought noted. No SI/HI. No overt psychosis or delusional content noted or reported. Review of Systems Review of Systems denies SOB, no abdominal pain. No chest pain. Mental Status Exam Mental Status Exam Narrative: Appearance: wearing hospital gown, no acute distress, stare blank. Behavior: minimally engaged Psychomotor: retardation noted Speech: clear, significant delay in response, minimally spontaneous TP: thought blocking TC: non in particular, brief answers to most questions Mood: good Affect: constricted SI: denies HI: none VH/AH: appears internally preoccupied Delusions: no overt delusional content noted or reported, but appears suspicious Insight/judgment: impaired x 2. Memory/cog: alert, not to situation. not formally tested at the time of interview. Diagnostics Vital Signs (24Hr): Vital Signs - 24 hr 04/20/25 20:00 04/21/25 08:00 Temperature 97.9 F 97.6 F Pulse Rate 92 86 Respiratory Rate 16 15 Blood Pressure 142/68 H 152/87 H Pulse Oximetry 95 96 Oxygen Delivery Method Room Air Room Air BMI result Body Mass Index 29.8 Labs 04/10/25 20:21 04/12/25 08:16 Labs: Laboratory Results - last 48 hr 04/19/25 04/20/25 04/20/25 20:25 06:21 11:21 POC Glucose 333 H 175 H 311 H 04/20/25 04/20/25 04/21/25 16:29 21:27 06:51 POC Glucose 318 H 235 H 75 04/21/25 04/21/25 12:01 16:30 POC Glucose 358 H* 332 H Medications Medications Current Medications Acetaminophen (Acetaminophen 325 Mg Tablet) 650 mg PO Q6H PRN PRN Reason: Headache/Pain, Scale 1-10 Acyclovir (Acyclovir 200 Mg Capsule) 400 mg PO TID [facility] Last Admin: 04/21/25 14:35 Dose: 400 mg Al Hydroxide/Mg Hydroxide (Magnesium Hydrox/Alum Hydrox 30 Ml Oral.Susp) 30 ml PO Q6H PRN PRN Reason: Heartburn/Nausea Amitriptyline HCl (Amitriptyline Hcl 10 Mg Tablet) 5 mg PO BEDTIME [facility] Last Admin: 04/20/25 20:12 Dose: 5 mg Atorvastatin Calcium (Atorvastatin Calcium 10 Mg Tablet) 10 mg PO BEDTIME [facility] Last Admin: 04/20/25 20:13 Dose: 10 mg Dextrose (Dextrose 50 % 25 Gm/50 Ml Syringe) 25 gm IVPUSH Q15M PRN; Protocol PRN Reason: per Hypoglycemia Standing Ord. Divalproex Sodium (Divalproex Sodium Er 500 Mg Tab.Er.24h) 1,000 mg PO BEDTIME [facility] Last Admin: 04/20/25 20:13 Dose: 1,000 mg Furosemide (Furosemide 40 Mg Tablet) 40 mg PO DAILY [facility]; Protocol Last Admin: 04/21/25 08:57 Dose: 40 mg Glucose (Glucose Gel 15 Gm Gel..Gram.) 15 gm PO Q15M PRN; Protocol PRN Reason: per Hypoglycemia Standing Ord. Insulin Glargine (Insulin Glargine,Hum.Rec.Anlog 100 Unit/Ml 10 Ml Vial) 52 unit SUBCUT DAILY [facility] Last Admin: 04/21/25 08:56 Dose: 52 unit Insulin Human Lispro (Insulin Lispro 100 Unit/Ml 3 Ml Vial) 10 unit SUBCUT TIDAC [facility] Last Admin: 04/21/25 16:42 Dose: 10 unit Lisinopril (Lisinopril 40 Mg Tablet) 40 mg PO DAILY [facility]; Protocol Last Admin: 04/21/25 08:57 Dose: 40 mg Magnesium Hydroxide (Milk Of Magnesia 30 Ml Oral.Susp) 30 ml PO DAILY PRN PRN Reason: Constipation Last Admin: 04/18/25 12:08 Dose: 30 ml Metoprolol Succinate (Metoprolol Succinate Er 25 Mg Tab.Er.24h) 25 mg PO DAILY [facility]; Protocol Last Admin: 04/21/25 08:57 Dose: 25 mg Omeprazole (Omeprazole 20 Mg Capsule.Dr) 20 mg PO DAILY@0630 [facility] Last Admin: 04/21/25 06:01 Dose: 20 mg Polyethylene Glycol (Polyethylene Glycol 3350 17 Gm Powd.Pack) 17 gm PO DAILY [facility] Last Admin: 04/21/25 09:00 Dose: Not Given Prednisone (Prednisone 10 Mg Tablet) 30 mg PO DAILY [facility]; Taper Stop: 05/05/25 08:59 Last Admin: 04/21/25 08:58 Dose: 30 mg Risperidone (Risperidone 0.5 Mg Tablet) 0.5 mg PO BID [facility] Last Admin: 04/21/25 08:57 Dose: 0.5 mg Ropinirole HCl (Ropinirole Hcl 1 Mg Tablet) 1 mg PO BEDTIME [facility] Last Admin: 04/20/25 20:12 Dose: 1 mg Senna/Docusate Sodium (Sennosides/Docusate Sodium Tablet) 1 tab PO BID [facility] Last Admin: 04/21/25 08:57 Dose: 1 tab Tolterodine Tartrate (Tolterodine Tartrate La 2 Mg Cap.Er.24h) 2 mg PO DAILY [facility] Last Admin: 04/21/25 08:57 Dose: 2 mg Trazodone HCl (Trazodone Hcl 50 Mg Tablet) 50 mg PO BEDTIME PRN PRN Reason: Insomnia Last Admin: 04/13/25 20:23 Dose: 50 mg Allergies Allergies Allergy/AdvReac Type Severity Reaction Status Date / Time Penicillins Allergy Intermediate rash/swelli Verified 04/10/25 17:47 ng shellfish derived Allergy Intermediate Swelling, Verified 04/10/25 17:47 Hives Assessment & Plan Assessment & Plan (1) Schizophrenia: Qualifiers: Schizophrenia type: paranoid schizophrenia Qualified Code(s): F20.0 - Paranoid schizophrenia Status: Acute Code(s): F20.9 - Schizophrenia, unspecified Plan Ms. Alfonso is a 65 year-old woman with hx of schizophrenia. She was brought to [facility] by family due to not eating, not talking not taking medications. She is on insulin and had refused at home raising concern in terms of worsening of her DM. She presents with thought blocking, poverty of thought. We discussed risks, benefits and alternative treatment options. will schedule ativan 0.5mg po TID. will obtain collateral information from OP provider as to reason to d/c haldol, also considering less potent antipsychotic but also concern to give olanzapine given high blood glucose also in context that recently started on prednisone for suspicion of giant cell arteritis pending outpatient appointment with vascular surgeon for biopsy. 04/13/25 continue ativan 0.5mg po TID. risperidone 0.5mg po BID monitor worsening of catatonic like including delayed response, mutism. 04/14 continue ativan, low dose risperidone 0.5mg po BID. monitor oversedation, worsening of catatonia like symptoms. 04/15: Consider restarting haldol if BS continue elevated although Prednisone more likely culprit. Consider hospitalist consultation for DM management while patient on prednisone. 04/16: continue current management and treatment plan. 04/17 continue tx. will try higher dose of ativan as benefit is unclear. 04/18 stop ativan- no therapeutic benefit with higher dose 04/19 continue tx. 04/20 continue tx. 04/21 continue tx. Reason for continued inpatient stay Substantial Risk for: inability to function Time Spent With Patient Time: Total time managing care of this patient today ____ minutes.
[2025-04-21 20:00] VITALS: BP 144/67; PULSE 64; RESP 16; TEMP 36.6; O2SAT 97
[2025-04-21 21:23] LABS: Glucose, Whole Blood 329 mg/dL (60-115)
[2025-04-22 06:28] LABS: Glucose, Whole Blood 138 mg/dL (60-115)
[2025-04-22] MEDS: Tolterodine Tartrate LA 2 MG CAP.ER.24H PO (08:20)
[2025-04-22 08:27] VITALS: BP 153/67; PULSE 76; RESP 17; TEMP 35.9; O2SAT 98
[2025-04-22] MEDS: Metoprolol Succinate ER 25 MG TAB.ER.24H PO (08:31)
--- NOTE | 2025-04-22 08:43 | HO.PSYCHPN ---
Subjective Subjective Date of Service: 04/22/25 Reason For Visit: psychosis Subjective Notes: Conditional Voluntary Medical Problems Affecting Mental Status: No Interim History: 65 yo with urinary incontinence- new- and constipation with ongoing psychosis but doing better on medications - mentally- still poverty of content but denying bad thoughts/feelings currently- Medication Compliance: Yes Side effects from medications: Yes (maybe constipation) Attending Groups: No Review of Systems Acute medical concerns: Yes see above Mental Status Exam Mental Status Exam Patient Appearance: Appropriate (mostly) and Unkempt Patient Orientation: Person, Place and Situation Level of Consciousness: Awake and Appropriate Patient Behavior: Passive and Poor Eye Contact Mood Description: Apathetic Affect Description: Blunted Patient Cognition Impaired: No Ability to Follow Directions: Fair Speech Pattern: Impoverished Hallucinations: None Delusions: Not Present Thought Process: Slowed Thinking Thought Content: positive for [place] and positive for Poverty of Content Judgement: Fair Diagnostics Vital Signs (24Hr): Vital Signs - 24 hr 04/21/25 20:00 04/22/25 08:27 Temperature 98 F 96.6 F L Pulse Rate 64 76 Respiratory Rate 16 17 Blood Pressure 144/67 H 153/67 H Pulse Oximetry 97 98 Oxygen Delivery Method Room Air Room Air BMI result Body Mass Index 29.8 Labs 04/10/25 20:21 04/12/25 08:16 Labs: Laboratory Results - last 48 hr 04/20/25 04/20/25 04/20/25 11:21 16:29 21:27 POC Glucose 311 H 318 H 235 H 04/21/25 04/21/25 04/21/25 06:51 12:01 16:30 POC Glucose 75 358 H* 332 H 04/21/25 04/22/25 21:17 06:23 POC Glucose 329 H 138 H Medications Medications Current Medications Acetaminophen (Acetaminophen 325 Mg Tablet) 650 mg PO Q6H PRN PRN Reason: Headache/Pain, Scale 1-10 Acyclovir (Acyclovir 200 Mg Capsule) 400 mg PO TID [facility] Last Admin: 04/22/25 08:20 Dose: 400 mg Al Hydroxide/Mg Hydroxide (Magnesium Hydrox/Alum Hydrox 30 Ml Oral.Susp) 30 ml PO Q6H PRN PRN Reason: Heartburn/Nausea Amitriptyline HCl (Amitriptyline Hcl 10 Mg Tablet) 5 mg PO BEDTIME [facility] Last Admin: 04/21/25 20:40 Dose: 5 mg Atorvastatin Calcium (Atorvastatin Calcium 10 Mg Tablet) 10 mg PO BEDTIME [facility] Last Admin: 04/21/25 20:40 Dose: 10 mg Dextrose (Dextrose 50 % 25 Gm/50 Ml Syringe) 25 gm IVPUSH Q15M PRN; Protocol PRN Reason: per Hypoglycemia Standing Ord. Divalproex Sodium (Divalproex Sodium Er 500 Mg Tab.Er.24h) 1,000 mg PO BEDTIME [facility] Last Admin: 04/21/25 20:40 Dose: 1,000 mg Furosemide (Furosemide 40 Mg Tablet) 40 mg PO DAILY [facility]; Protocol Last Admin: 04/22/25 08:31 Dose: 40 mg Glucose (Glucose Gel 15 Gm Gel..Gram.) 15 gm PO Q15M PRN; Protocol PRN Reason: per Hypoglycemia Standing Ord. Insulin Glargine (Insulin Glargine,Hum.Rec.Anlog 100 Unit/Ml 10 Ml Vial) 52 unit SUBCUT DAILY [facility] Last Admin: 04/21/25 08:56 Dose: 52 unit Insulin Human Lispro (Insulin Lispro 100 Unit/Ml 3 Ml Vial) 10 unit SUBCUT TIDAC [facility] Last Admin: 04/22/25 08:18 Dose: 10 unit Lisinopril (Lisinopril 40 Mg Tablet) 40 mg PO DAILY [facility]; Protocol Last Admin: 04/22/25 08:31 Dose: 40 mg Magnesium Hydroxide (Milk Of Magnesia 30 Ml Oral.Susp) 30 ml PO DAILY PRN PRN Reason: Constipation Last Admin: 04/18/25 12:08 Dose: 30 ml Metoprolol Succinate (Metoprolol Succinate Er 25 Mg Tab.Er.24h) 25 mg PO DAILY [facility]; Protocol Last Admin: 04/22/25 08:31 Dose: 25 mg Omeprazole (Omeprazole 20 Mg Capsule.Dr) 20 mg PO DAILY@0630 [facility] Last Admin: 04/22/25 05:56 Dose: 20 mg Polyethylene Glycol (Polyethylene Glycol 3350 17 Gm Powd.Pack) 17 gm PO DAILY [facility] Last Admin: 04/22/25 08:22 Dose: 17 gm Prednisone (Prednisone 10 Mg Tablet) 30 mg PO DAILY [facility]; Taper Stop: 05/05/25 08:59 Last Admin: 04/22/25 08:21 Dose: 30 mg Risperidone (Risperidone 0.5 Mg Tablet) 0.5 mg PO BID [facility] Last Admin: 04/22/25 08:20 Dose: 0.5 mg Ropinirole HCl (Ropinirole Hcl 1 Mg Tablet) 1 mg PO BEDTIME [facility] Last Admin: 04/21/25 20:40 Dose: 1 mg Senna/Docusate Sodium (Sennosides/Docusate Sodium Tablet) 1 tab PO BID [facility] Last Admin: 04/22/25 08:19 Dose: 1 tab Tolterodine Tartrate (Tolterodine Tartrate La 2 Mg Cap.Er.24h) 2 mg PO DAILY [facility] Last Admin: 04/22/25 08:20 Dose: 2 mg Trazodone HCl (Trazodone Hcl 50 Mg Tablet) 50 mg PO BEDTIME PRN PRN Reason: Insomnia Last Admin: 04/13/25 20:23 Dose: 50 mg Allergies Allergies Allergy/AdvReac Type Severity Reaction Status Date / Time Penicillins Allergy Intermediate rash/swelli Verified 04/10/25 17:47 ng shellfish derived Allergy Intermediate Swelling, Verified 04/10/25 17:47 Hives Assessment & Plan Assessment & Plan (1) Schizophrenia: Qualifiers: Schizophrenia type: paranoid schizophrenia Qualified Code(s): F20.0 - Paranoid schizophrenia Status: Acute Code(s): F20.9 - Schizophrenia, unspecified Plan Ms. Alfonso is a 65 year-old woman with hx of schizophrenia. She was brought to [facility] by family due to not eating, not talking not taking medications. She is on insulin and had refused at home raising concern in terms of worsening of her DM. She presents with thought blocking, poverty of thought. We discussed risks, benefits and alternative treatment options. will schedule ativan 0.5mg po TID. will obtain collateral information from OP provider as to reason to d/c haldol, also considering less potent antipsychotic but also concern to give olanzapine given high blood glucose also in context that recently started on prednisone for suspicion of giant cell arteritis pending outpatient appointment with vascular surgeon for biopsy. 04/13/25 continue ativan 0.5mg po TID. risperidone 0.5mg po BID monitor worsening of catatonic like including delayed response, mutism. 04/14 continue ativan, low dose risperidone 0.5mg po BID. monitor oversedation, worsening of catatonia like symptoms. 04/15: Consider restarting haldol if BS continue elevated although Prednisone more likely culprit. Consider hospitalist consultation for DM management while patient on prednisone. 04/16: continue current management and treatment plan. 04/17 continue tx. will try higher dose of ativan as benefit is unclear. 04/18 stop ativan- no therapeutic benefit with higher dose 04/19 continue tx. 04/22/25 review meds for constipation, get urine for ua/culture continue current treatment for psychiatric Patient educated on: medication risk/benefits and medical condition Informed Consent: understands Reason for continued inpatient stay Substantial Risk for: rapid decompensation and med/psych decompensation Time Spent With Patient Time: Total time managing care of this patient today ____ minutes.
[2025-04-22] MEDS: Insulin Glargine,Hum.rec.anlog 100 UNIT/ML 10 ML VIAL 52 UNIT SUBCUT (09:30)
[2025-04-22 11:28] LABS: Glucose, Whole Blood 185 mg/dL (60-115)
[2025-04-22] MEDS: Milk of Magnesia 30 ML ORAL.SUSP PO (14:48)
[2025-04-22 16:34] LABS: Glucose, Whole Blood 251 mg/dL (60-115)
[2025-04-22 20:00] VITALS: BP 144/62; PULSE 86; RESP 18; TEMP 36.5; O2SAT 97
[2025-04-22 21:01] LABS: Glucose, Whole Blood 200 mg/dL (60-115)
[2025-04-23 06:40] LABS: Glucose, Whole Blood 59 mg/dL (60-115)
[2025-04-23 07:11] LABS: Glucose, Whole Blood 82 mg/dL (60-115)
[2025-04-23 09:30] VITALS: BP 149/71; PULSE 71; RESP 14; TEMP 36.6; O2SAT 98
[2025-04-23] MEDS: Tolterodine Tartrate LA 2 MG CAP.ER.24H PO (09:36)
[2025-04-23] MEDS: Metoprolol Succinate ER 25 MG TAB.ER.24H PO (09:36)
[2025-04-23 11:21] LABS: Glucose, Whole Blood 120 mg/dL (60-115)
[2025-04-23] MEDS: Insulin Glargine,Hum.rec.anlog 100 UNIT/ML 10 ML VIAL 52 UNIT SUBCUT (12:00)
[2025-04-23 15:12] LABS: Appearance Urine Clear; Glucose Urine UA 250 mg/dL (Negative); PH 7.5 (5.0-9.0); Specific Gravity - Urine 1.010 (1.005-1.025); UMIC TRIGGER UACC YES
[2025-04-23 15:17] LABS: UACC Culture Trigger YES
--- NOTE | 2025-04-23 16:27 | HO.PSYCHPN ---
Subjective Subjective Date of Service: 04/23/25 Reason For Visit: psychosis Subjective Notes: Conditional Voluntary Healthcare Proxy: Yes Guardianship: No Medical Problems Affecting Mental Status: Yes (uti , bladder retention, ? 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 installer on video- patient had mostly co abd pain =- and incontinence when pressed for mental health concerns- does have ongoing underlying belief about paranoia at home/apartment- (not new) Pt delayed response/speach at times- Medication Compliance: Yes Side effects from medications: Yes (?urinary retention) Attending Groups: No Review of Systems Acute medical concerns: Yes see above Mental Status Exam Mental Status Exam Narrative: lying in bed blanket over mouth, provider had to move blanket out of way Patient Appearance: Appropriate Patient Orientation: Person, Place, Time and Situation Level of Consciousness: Awake and Alert Patient Behavior: Dependent, Cooperative, Passive, Timid, Fatigued and Good Eye Contact Mood Description: Apprehensive Affect Description: Flat Patient Cognition Impaired: No Ability to Follow Directions: Fair Speech Pattern: Impoverished Hallucinations: None Delusions: Paranoid Ideation Thought Process: Slowed Thinking Thought Content: positive for Thought Blocking Depressive Symptoms: Increased Anxiety Abnormal Motor Activity Signs and Symptoms: Psychomotor Retardation Judgement: Fair Diagnostics Vital Signs (24Hr): Vital Signs - 24 hr 04/22/25 20:00 04/23/25 09:30 Temperature 97.7 F 97.9 F Pulse Rate 86 71 Respiratory Rate 18 14 Blood Pressure 144/62 H 149/71 H Pulse Oximetry 97 98 Oxygen Delivery Method Room Air Room Air BMI result Body Mass Index 29.8 Labs 04/10/25 20:21 04/12/25 08:16 Labs: Laboratory Results - last 48 hr 04/21/25 04/21/25 04/22/25 16:30 21:17 06:23 POC Glucose 332 H 329 H 138 H Urine Color Urine Appearance Urine pH Ur Specific [place] Urine Protein Urine Glucose (UA) Urine Ketones Urine Blood Urine Nitrite Ur Leukocyte Esterase Urine RBC Urine WBC Ur Squamous Epith Cells Urine Bacteria Hyaline Casts 04/22/25 04/22/25 04/22/25 11:24 16:28 20:55 POC Glucose 185 H 251 H 200 H Urine Color Urine Appearance Urine pH Ur Specific [place] Urine Protein Urine Glucose (UA) Urine Ketones Urine Blood Urine Nitrite Ur Leukocyte Esterase Urine RBC Urine WBC Ur Squamous Epith Cells Urine Bacteria Hyaline Casts 04/23/25 04/23/25 04/23/25 06:34 07:05 11:17 POC Glucose 59 L* 82 120 H Urine Color Urine Appearance Urine pH Ur Specific [place] Urine Protein Urine Glucose (UA) Urine Ketones Urine Blood Urine Nitrite Ur Leukocyte Esterase Urine RBC Urine WBC Ur Squamous Epith Cells Urine Bacteria Hyaline Casts 04/23/25 14:58 POC Glucose Urine Color Yellow Urine Appearance Clear Urine pH 7.5 Ur Specific [place] 1.010 Urine Protein Negative Urine Glucose (UA) 250 H Urine Ketones Negative Urine Blood Negative Urine Nitrite Negative Ur Leukocyte Esterase Moderate (2+) H Urine RBC 0-2 Urine WBC 21-50 H Ur Squamous Epith Cells 0-2 Urine Bacteria None Seen Hyaline Casts 0-2 Medications Medications Current Medications Acetaminophen (Acetaminophen 325 Mg Tablet) 650 mg PO Q6H PRN PRN Reason: Headache/Pain, Scale 1-10 Acyclovir (Acyclovir 200 Mg Capsule) 400 mg PO TID [facility] Last Admin: 04/23/25 09:35 Dose: 400 mg Al Hydroxide/Mg Hydroxide (Magnesium Hydrox/Alum Hydrox 30 Ml Oral.Susp) 30 ml PO Q6H PRN PRN Reason: Heartburn/Nausea Amitriptyline HCl (Amitriptyline Hcl 10 Mg Tablet) 5 mg PO BEDTIME [facility] Last Admin: 04/22/25 20:16 Dose: 5 mg Atorvastatin Calcium (Atorvastatin Calcium 10 Mg Tablet) 10 mg PO BEDTIME [facility] Last Admin: 04/22/25 20:15 Dose: 10 mg Bisacodyl (Bisacodyl 5 Mg Tablet.Dr) 10 mg PO BEDTIME PRN PRN Reason: Constipation Dextrose (Dextrose 50 % 25 Gm/50 Ml Syringe) 25 gm IVPUSH Q15M PRN; Protocol PRN Reason: per Hypoglycemia Standing Ord. Dextrose (Dextrose 50 % 25 Gm/50 Ml Syringe) 25 gm IVPUSH Q15M PRN; Protocol PRN Reason: per Hypoglycemia Standing Ord. Divalproex Sodium (Divalproex Sodium Er 500 Mg Tab.Er.24h) 1,000 mg PO BEDTIME [facility] Last Admin: 04/22/25 20:16 Dose: 1,000 mg Furosemide (Furosemide 40 Mg Tablet) 40 mg PO DAILY [facility]; Protocol Last Admin: 04/23/25 09:36 Dose: 40 mg Glucose (Glucose Gel 15 Gm Gel..Gram.) 15 gm PO Q15M PRN; Protocol PRN Reason: per Hypoglycemia Standing Ord. Insulin Glargine (Insulin Glargine,Hum.Rec.Anlog 100 Unit/Ml 10 Ml Vial) 52 unit SUBCUT DAILY [facility] Last Admin: 04/23/25 12:00 Dose: 52 unit Insulin Human Lispro (Insulin Lispro 100 Unit/Ml 3 Ml Vial) 0 unit SUBCUT QIDACHS [facility]; Protocol Lisinopril (Lisinopril 40 Mg Tablet) 40 mg PO DAILY [facility]; Protocol Last Admin: 04/23/25 09:36 Dose: 40 mg Magnesium Hydroxide (Milk Of Magnesia 30 Ml Oral.Susp) 30 ml PO DAILY PRN PRN Reason: Constipation Last Admin: 04/22/25 14:48 Dose: 30 ml Metoprolol Succinate (Metoprolol Succinate Er 25 Mg Tab.Er.24h) 25 mg PO DAILY [facility]; Protocol Last Admin: 04/23/25 09:36 Dose: 25 mg Nitrofurantoin Macrocrystals (Nitrofurantoin Macrocrystal 50 Mg Capsule) 100 mg PO BEDTIME [facility] Stop: 05/07/25 20:59 Nitrofurantoin Macrocrystals (Nitrofurantoin Monohyd/M-Cryst 100 Mg Capsule) 100 mg PO Q12H [facility] Stop: 05/07/25 16:26 Omeprazole (Omeprazole 20 Mg Capsule.) 20 mg PO DAILY@0630 [facility] Last Admin: 04/23/25 05:49 Dose: 20 mg Polyethylene Glycol (Polyethylene Glycol 3350 17 Gm Powd.Pack) 17 gm PO BID [facility] Prednisone (Prednisone 10 Mg Tablet) 30 mg PO DAILY [facility]; Taper Stop: 05/05/25 08:59 Last Admin: 04/23/25 09:36 Dose: 30 mg Risperidone (Risperidone 0.5 Mg Tablet) 0.5 mg PO BID [facility] Last Admin: 04/23/25 09:36 Dose: 0.5 mg Ropinirole HCl (Ropinirole Hcl 1 Mg Tablet) 1 mg PO BEDTIME [facility] Last Admin: 04/22/25 20:16 Dose: 1 mg Senna/Docusate Sodium (Sennosides/Docusate Sodium Tablet) 1 tab PO BID [facility] Last Admin: 04/23/25 09:36 Dose: 1 tab Tolterodine Tartrate (Tolterodine Tartrate La 2 Mg Cap.Er.24h) 2 mg PO DAILY [facility] Last Admin: 04/23/25 09:36 Dose: 2 mg Trazodone HCl (Trazodone Hcl 50 Mg Tablet) 50 mg PO BEDTIME PRN PRN Reason: Insomnia Last Admin: 04/13/25 20:23 Dose: 50 mg Allergies Allergies Allergy/AdvReac Type Severity Reaction Status Date / Time Penicillins Allergy Intermediate rash/swelli Verified 04/10/25 17:47 ng shellfish derived Allergy Intermediate Swelling, Verified 04/10/25 17:47 Hives Assessment & Plan Assessment & Plan (1) Schizophrenia: Qualifiers: Schizophrenia type: paranoid schizophrenia Qualified Code(s): F20.0 - Paranoid schizophrenia Status: Acute Code(s): F20.9 - Schizophrenia, unspecified (2) Urinary retention with incomplete bladder emptying: Status: Acute Code(s): R33.9 - Retention of urine, unspecified Assessment and Plan: ? multifactoria on 5mg amitryptiline, on risperidone low dose 0.5mg bid (3) Urinary tract infection: Status: Acute Code(s): N39.0 - Urinary tract infection, site not specified Plan Ms. Alfonso is a 65 year-old woman with hx of schizophrenia. She was brought [place] [facility] [place] family due to not eating, not talking not taking medications. She is on insulin and had refused at home raising concern in terms of worsening of her DM. She presents with thought blocking, poverty of thought. We discussed risks, benefits and alternative treatment options. will schedule ativan 0.5mg po TID. will obtain collateral information from OP provider as to reason to d/c haldol, also considering less potent antipsychotic but also concern to give olanzapine given high blood glucose also in context that recently started on prednisone for suspicion of giant cell arteritis pending outpatient appointment with vascular surgeon for biopsy. 04/13/25 continue ativan 0.5mg po TID. risperidone 0.5mg po BID monitor worsening of catatonic like including delayed response, mutism. 04/14 continue ativan, low dose risperidone 0.5mg po BID. monitor oversedation, worsening of catatonia like symptoms. 04/15: Consider restarting haldol if BS continue elevated although Prednisone more likely culprit. Consider hospitalist consultation for DM management while patient on prednisone. 04/16: continue current management and treatment plan. 04/17 continue tx. will try higher dose of ativan as benefit is unclear. 04/18 stop ativan- no therapeutic benefit with higher dose 04/19 continue tx. 04/22/25 review meds for constipation, get urine for ua/culture continue current treatment for psychiatric 04/23 pending ucx sent, started macrobid for 14 ? days for presumed uti, pvr after voiding to check residual and straight cath as needed- continue psych meds for now not on much Informed Consent: understands and further education needed Reason for continued inpatient stay Substantial Risk for: inability to function, rapid decompensation and med/psych decompensation Time Spent With Patient Time: Total time managing care of this patient today ____ minutes.
[2025-04-23 16:35] LABS: Glucose, Whole Blood 155 mg/dL (60-115)
[2025-04-23 20:00] VITALS: BP 118/57; PULSE 80; RESP 16; TEMP 36.4; O2SAT 94
[2025-04-23 20:30] LABS: Glucose, Whole Blood 129 mg/dL (60-115)
[2025-04-24 06:51] LABS: Glucose, Whole Blood 68 mg/dL (60-115)
[2025-04-24 08:27] LABS: Glucose, Whole Blood 188 mg/dL (60-115)
[2025-04-24 08:58] VITALS: BP 119/60; PULSE 77; RESP 16; TEMP 36.5; O2SAT 96
--- NOTE | 2025-04-24 09:13 | P.PNPSI_ITS ---
Subjective Subjective Date of Service: 04/24/25 Reason For Visit: psychosis Subjective Notes: Conditional Voluntary Healthcare Proxy: Yes Interim History: Pt slept through the night. She appears again staring, not talking much mostly in her bed. She was started on bactrim, however, UA does not show bacteria, pending culture. Pt also started on bladder scans. One time PVR of 600, otherwise all have been less than 200. Will d/c bladder scan, await urine culture but suspect no UTI given that UA does not show bacteria. will restart ativan 0.5mg TID- due to again catatonia like s/s and seems worse than last Thursday. Review of Systems Review of Systems denies SOB, no abdominal pain. No chest pain. Diagnostics Vital Signs (24Hr): Vital Signs - 24 hr 04/23/25 09:30 04/23/25 20:00 04/24/25 08:58 Temperature 97.9 F 97.5 F 97.7 F Pulse Rate 71 80 77 Respiratory Rate 14 16 16 Blood Pressure 149/71 H 118/57 L 119/60 Pulse Oximetry 98 94 96 Oxygen Delivery Method Room Air Room Air Room Air BMI result Body Mass Index 29.8 Labs 04/10/25 20:21 04/12/25 08:16 Labs: Laboratory Results - last 48 hr 04/22/25 04/22/25 04/22/25 11:24 16:28 20:55 POC Glucose 185 H 251 H 200 H Urine Color Urine Appearance Urine pH Ur Specific Ignacio Urine Protein Urine Glucose (UA) Urine Ketones Urine Blood Urine Nitrite Ur Leukocyte Esterase Urine RBC Urine WBC Ur Squamous Epith Cells Urine Bacteria Hyaline Casts 04/23/25 04/23/25 04/23/25 06:34 07:05 11:17 POC Glucose 59 L* 82 120 H Urine Color Urine Appearance Urine pH Ur Specific Ignacio Urine Protein Urine Glucose (UA) Urine Ketones Urine Blood Urine Nitrite Ur Leukocyte Esterase Urine RBC Urine WBC Ur Squamous Epith Cells Urine Bacteria Hyaline Casts 04/23/25 04/23/25 04/23/25 14:58 16:30 20:25 POC Glucose 155 H 129 H Urine Color Yellow Urine Appearance Clear Urine pH 7.5 Ur Specific Ignacio 1.010 Urine Protein Negative Urine Glucose (UA) 250 H Urine Ketones Negative Urine Blood Negative Urine Nitrite Negative Ur Leukocyte Esterase Moderate (2+) H Urine RBC 0-2 Urine WBC 21-50 H Ur Squamous Epith Cells 0-2 Urine Bacteria None Seen Hyaline Casts 0-2 04/24/25 04/24/25 06:37 08:22 POC Glucose 68 188 H Urine Color Urine Appearance Urine pH Ur Specific Ignacio Urine Protein Urine Glucose (UA) Urine Ketones Urine Blood Urine Nitrite Ur Leukocyte Esterase Urine RBC Urine WBC Ur Squamous Epith Cells Urine Bacteria Hyaline Casts Medications Medications Current Medications Acetaminophen (Acetaminophen 325 Mg Tablet) 650 mg PO Q6H PRN PRN Reason: Headache/Pain, Scale 1-10 Acyclovir (Acyclovir 200 Mg Capsule) 400 mg PO TID [facility] Last Admin: 04/23/25 21:36 Dose: 400 mg Al Hydroxide/Mg Hydroxide (Magnesium Hydrox/Alum Hydrox 30 Ml Oral.Susp) 30 ml PO Q6H PRN PRN Reason: Heartburn/Nausea Amitriptyline HCl (Amitriptyline Hcl 10 Mg Tablet) 5 mg PO BEDTIME [facility] Last Admin: 04/23/25 21:37 Dose: 5 mg Atorvastatin Calcium (Atorvastatin Calcium 10 Mg Tablet) 10 mg PO BEDTIME [facility] Last Admin: 04/23/25 21:36 Dose: 10 mg Bisacodyl (Bisacodyl 5 Mg Tablet.Dr) 10 mg PO BEDTIME PRN PRN Reason: Constipation Dextrose (Dextrose 50 % 25 Gm/50 Ml Syringe) 25 gm IVPUSH Q15M PRN; Protocol PRN Reason: per Hypoglycemia Standing Ord. Dextrose (Dextrose 50 % 25 Gm/50 Ml Syringe) 25 gm IVPUSH Q15M PRN; Protocol PRN Reason: per Hypoglycemia Standing Ord. Divalproex Sodium (Divalproex Sodium Er 500 Mg Tab.Er.24h) 1,000 mg PO BEDTIME [facility] Last Admin: 04/23/25 21:36 Dose: 1,000 mg Furosemide (Furosemide 40 Mg Tablet) 40 mg PO DAILY [facility]; Protocol Last Admin: 04/23/25 09:36 Dose: 40 mg Glucose (Glucose Gel 15 Gm Gel..Gram.) 15 gm PO Q15M PRN; Protocol PRN Reason: per Hypoglycemia Standing Ord. Insulin Glargine (Insulin Glargine,Hum.Rec.Anlog 100 Unit/Ml 10 Ml Vial) 52 unit SUBCUT DAILY [facility] Last Admin: 04/23/25 12:00 Dose: 52 unit Insulin Human Lispro (Insulin Lispro 100 Unit/Ml 3 Ml Vial) 0 unit SUBCUT QIDACHS [facility]; Protocol Last Admin: 04/24/25 09:06 Dose: Not Given Lisinopril (Lisinopril 40 Mg Tablet) 40 mg PO DAILY [facility]; Protocol Last Admin: 04/23/25 09:36 Dose: 40 mg Magnesium Hydroxide (Milk Of Magnesia 30 Ml Oral.Susp) 30 ml PO DAILY PRN PRN Reason: Constipation Last Admin: 04/22/25 14:48 Dose: 30 ml Metoprolol Succinate (Metoprolol Succinate Er 25 Mg Tab.Er.24h) 25 mg PO DAILY [facility]; Protocol Last Admin: 04/23/25 09:36 Dose: 25 mg Nitrofurantoin Macrocrystals (Nitrofurantoin Monohyd/M-Cryst 100 Mg Capsule) 100 mg PO Q12H [facility] Stop: 05/07/25 17:59 Last Admin: 04/24/25 06:35 Dose: 100 mg Omeprazole (Omeprazole 20 Mg Capsule.Dr) 20 mg PO DAILY@0630 [facility] Last Admin: 04/24/25 06:35 Dose: 20 mg Polyethylene Glycol (Polyethylene Glycol 3350 17 Gm Powd.Pack) 17 gm PO BID [facility] Last Admin: 04/23/25 21:37 Dose: 17 gm Prednisone (Prednisone 10 Mg Tablet) 30 mg PO DAILY [facility]; Taper Stop: 05/05/25 08:59 Last Admin: 04/23/25 09:36 Dose: 30 mg Risperidone (Risperidone 0.5 Mg Tablet) 0.5 mg PO BID [facility] Last Admin: 04/23/25 21:36 Dose: 0.5 mg Ropinirole HCl (Ropinirole Hcl 1 Mg Tablet) 1 mg PO BEDTIME [facility] Last Admin: 04/23/25 21:36 Dose: 1 mg Senna/Docusate Sodium (Sennosides/Docusate Sodium Tablet) 1 tab PO BID [facility] Last Admin: 04/23/25 21:36 Dose: 1 tab Tolterodine Tartrate (Tolterodine Tartrate La 2 Mg Cap.Er.24h) 2 mg PO DAILY [facility] Last Admin: 04/23/25 09:36 Dose: 2 mg Trazodone HCl (Trazodone Hcl 50 Mg Tablet) 50 mg PO BEDTIME PRN PRN Reason: Insomnia Last Admin: 04/13/25 20:23 Dose: 50 mg Allergies Allergies Allergy/AdvReac Type Severity Reaction Status Date / Time Penicillins Allergy Intermediate rash/swelli Verified 04/10/25 17:47 ng shellfish derived Allergy Intermediate Swelling, Verified 04/10/25 17:47 Hives Assessment & Plan Assessment & Plan (1) Schizophrenia: Qualifiers: Schizophrenia type: paranoid schizophrenia Qualified Code(s): F20.0 - Paranoid schizophrenia Status: Acute Code(s): F20.9 - Schizophrenia, unspecified (2) Urinary retention with incomplete bladder emptying: Status: Acute Code(s): R33.9 - Retention of urine, unspecified Assessment and Plan: ? multifactoria on 5mg amitryptiline, on risperidone low dose 0.5mg bid (3) Urinary tract infection: Status: Acute Code(s): N39.0 - Urinary tract infection, site not specified Plan Ms. Alfonso is a 65 year-old woman with hx of schizophrenia. She was brought to [facility] ED by family due to not eating, not talking not taking medications. She is on insulin and had refused at home raising concern in terms of worsening of her DM. She presents with thought blocking, poverty of thought. We discussed risks, benefits and alternative treatment options. will schedule ativan 0.5mg po TID. will obtain collateral information from OP provider as to reason to d/c haldol, also considering less potent antipsychotic but also concern to give olanzapine given high blood glucose also in context that recently started on prednisone for suspicion of giant cell arteritis pending outpatient appointment with vascular surgeon for biopsy. 04/13/25 continue ativan 0.5mg po TID. risperidone 0.5mg po BID monitor worsening of catatonic like including delayed response, mutism. 04/14 continue ativan, low dose risperidone 0.5mg po BID. monitor oversedation, worsening of catatonia like symptoms. 04/15: Consider restarting haldol if BS continue elevated although Prednisone more likely culprit. Consider hospitalist consultation for DM management while patient on prednisone. 04/16: continue current management and treatment plan. 04/17 continue tx. will try higher dose of ativan as benefit is unclear. 04/18 stop ativan- no therapeutic benefit with higher dose 04/19 continue tx. 04/22/25 review meds for constipation, get urine for ua/culture continue current treatment for psychiatric 04/23 pending ucx sent, started macrobid for 14 ? days for presumed uti, pvr after voiding to check residual and straight cath as needed- continue psych meds for now not on much 04/24 Will d/c bladder scan, await urine culture but suspect no UTI given that UA does not show bacteria. will restart ativan 0.5mg TID- due to again catatonia like s/s and seems worse than last Thursday. Reason for continued inpatient stay Substantial Risk for: inability to function Time Spent With Patient Time: Total time managing care of this patient today ____ minutes.
[2025-04-24] MEDS: Metoprolol Succinate ER 25 MG TAB.ER.24H PO (09:34)
[2025-04-24] MEDS: Tolterodine Tartrate LA 2 MG CAP.ER.24H PO (09:34)
[2025-04-24] MEDS: Insulin Glargine,Hum.rec.anlog 100 UNIT/ML 10 ML VIAL 52 UNIT SUBCUT (09:35)
[2025-04-24 11:31] LABS: Glucose, Whole Blood 225 mg/dL (60-115)
[2025-04-24 16:16] LABS: Glucose, Whole Blood 218 mg/dL (60-115)
[2025-04-24 19:49] VITALS: BP 124/56; PULSE 83; RESP 16; TEMP 36.8; O2SAT 95
[2025-04-24 20:09] LABS: Glucose, Whole Blood 278 mg/dL (60-115)
[2025-04-25 06:36] LABS: Glucose, Whole Blood 129 mg/dL (60-115)
[2025-04-25 08:00] VITALS: BP 178/83; PULSE 74; RESP 14; TEMP 36.3; O2SAT 100
[2025-04-25] MEDS: Metoprolol Succinate ER 25 MG TAB.ER.24H PO (08:52)
[2025-04-25] MEDS: Tolterodine Tartrate LA 2 MG CAP.ER.24H PO (08:52)
[2025-04-25] MEDS: Insulin Glargine,Hum.rec.anlog 100 UNIT/ML 10 ML VIAL 52 UNIT SUBCUT (08:53)
[2025-04-25 11:32] LABS: Glucose, Whole Blood 148 mg/dL (60-115)
[2025-04-25 16:43] LABS: Glucose, Whole Blood 318 mg/dL (60-115)
--- NOTE | 2025-04-25 17:08 | P.PNPSI_ITS ---
Subjective Subjective Date of Service: 04/25/25 Reason For Visit: psychosis Subjective Notes: Conditional Voluntary Interim History: Pt slept through the night. She is more visible but with poverty of thought. Speech slightly more spontaneous. No overt psychotic or delusional content. She is taking medications as prescribed. No behavioral concerns. She reports urine incontinence, when asked about whether she is not able to hold it and make it to the bathroom, she is not able to provide more information. Medication Compliance: Yes Review of Systems Review of Systems denies SOB, no abdominal pain. No chest pain. Mental Status Exam Mental Status Exam Narrative: Appearance: wearing hospital gown, no acute distress, stare blank. Behavior: minimally engaged Psychomotor: retardation noted Speech: clear, significant delay in response, minimally spontaneous TP: thought blocking TC: non in particular, brief answers to most questions Mood: good Affect: constricted SI: denies HI: none VH/AH: appears internally preoccupied Delusions: no overt delusional content noted or reported, but appears suspicious Insight/judgment: impaired x 2. Memory/cog: alert, not to situation. not formally tested at the time of interview. Diagnostics Vital Signs (24Hr): Vital Signs - 24 hr 04/24/25 19:49 04/25/25 08:00 Temperature 98.3 F 97.3 F Pulse Rate 83 74 Respiratory Rate 16 14 Blood Pressure 124/56 L 178/83 H Pulse Oximetry 95 100 Oxygen Delivery Method Room Air Room Air BMI result Body Mass Index 29.8 Labs 04/10/25 20:21 04/12/25 08:16 Labs: Laboratory Results - last 48 hr 04/23/25 04/24/25 04/24/25 20:25 06:37 08:22 POC Glucose 129 H 68 188 H 04/24/25 04/24/25 04/24/25 11:27 16:09 20:04 POC Glucose 225 H 218 H 278 H 04/25/25 04/25/25 04/25/25 06:30 11:28 16:38 POC Glucose 129 H 148 H 318 H Medications Medications Current Medications Acetaminophen (Acetaminophen 325 Mg Tablet) 650 mg PO Q6H PRN PRN Reason: Headache/Pain, Scale 1-10 Acyclovir (Acyclovir 200 Mg Capsule) 400 mg PO TID [facility] Last Admin: 04/25/25 14:59 Dose: 400 mg Al Hydroxide/Mg Hydroxide (Magnesium Hydrox/Alum Hydrox 30 Ml Oral.Susp) 30 ml PO Q6H PRN PRN Reason: Heartburn/Nausea Amitriptyline HCl (Amitriptyline Hcl 10 Mg Tablet) 5 mg PO BEDTIME [facility] Last Admin: 04/24/25 19:52 Dose: 5 mg Atorvastatin Calcium (Atorvastatin Calcium 10 Mg Tablet) 10 mg PO BEDTIME [facility] Last Admin: 04/24/25 19:53 Dose: 10 mg Bisacodyl (Bisacodyl 5 Mg Tablet.Dr) 10 mg PO BEDTIME PRN PRN Reason: Constipation Dextrose (Dextrose 50 % 25 Gm/50 Ml Syringe) 25 gm IVPUSH Q15M PRN; Protocol PRN Reason: per Hypoglycemia Standing Ord. Dextrose (Dextrose 50 % 25 Gm/50 Ml Syringe) 25 gm IVPUSH Q15M PRN; Protocol PRN Reason: per Hypoglycemia Standing Ord. Divalproex Sodium (Divalproex Sodium Er 500 Mg Tab.Er.24h) 1,000 mg PO BEDTIME [facility] Last Admin: 04/24/25 19:51 Dose: 1,000 mg Furosemide (Furosemide 40 Mg Tablet) 40 mg PO DAILY [facility]; Protocol Last Admin: 04/25/25 08:52 Dose: 40 mg Glucose (Glucose Gel 15 Gm Gel..Gram.) 15 gm PO Q15M PRN; Protocol PRN Reason: per Hypoglycemia Standing Ord. Insulin Glargine (Insulin Glargine,Hum.Rec.Anlog 100 Unit/Ml 10 Ml Vial) 52 unit SUBCUT DAILY [facility] Last Admin: 04/25/25 08:53 Dose: 52 unit Insulin Human Lispro (Insulin Lispro 100 Unit/Ml 3 Ml Vial) 0 unit SUBCUT QIDACHS [facility]; Protocol Last Admin: 04/25/25 16:48 Dose: 8 unit Lisinopril (Lisinopril 40 Mg Tablet) 40 mg PO DAILY [facility]; Protocol Last Admin: 04/25/25 08:51 Dose: 40 mg Lorazepam (Lorazepam 0.5 Mg Tablet) 0.5 mg PO TID [facility] Last Admin: 04/25/25 14:59 Dose: 0.5 mg Magnesium Hydroxide (Milk Of Magnesia 30 Ml Oral.Susp) 30 ml PO DAILY PRN PRN Reason: Constipation Last Admin: 04/22/25 14:48 Dose: 30 ml Metoprolol Succinate (Metoprolol Succinate Er 25 Mg Tab.Er.24h) 25 mg PO DAILY [facility]; Protocol Last Admin: 04/25/25 08:52 Dose: 25 mg Omeprazole (Omeprazole 20 Mg Capsule.Dr) 20 mg PO DAILY@0630 [facility] Last Admin: 04/25/25 06:07 Dose: 20 mg Polyethylene Glycol (Polyethylene Glycol 3350 17 Gm Powd.Pack) 17 gm PO BID [facility] Last Admin: 04/25/25 08:53 Dose: 17 gm Prednisone (Prednisone 10 Mg Tablet) 30 mg PO DAILY [facility]; Taper Stop: 05/05/25 08:59 Last Admin: 04/25/25 08:50 Dose: 30 mg Risperidone (Risperidone 0.5 Mg Tablet) 0.5 mg PO BID [facility] Last Admin: 04/25/25 08:53 Dose: 0.5 mg Ropinirole HCl (Ropinirole Hcl 1 Mg Tablet) 1 mg PO BEDTIME [facility] Last Admin: 04/24/25 19:52 Dose: 1 mg Senna/Docusate Sodium (Sennosides/Docusate Sodium Tablet) 1 tab PO BID [facility] Last Admin: 04/25/25 08:50 Dose: 1 tab Tolterodine Tartrate (Tolterodine Tartrate La 2 Mg Cap.Er.24h) 2 mg PO DAILY [facility] Last Admin: 04/25/25 08:52 Dose: 2 mg Trazodone HCl (Trazodone Hcl 50 Mg Tablet) 50 mg PO BEDTIME PRN PRN Reason: Insomnia Last Admin: 04/13/25 20:23 Dose: 50 mg Allergies Allergies Allergy/AdvReac Type Severity Reaction Status Date / Time Penicillins Allergy Intermediate rash/swelli Verified 04/10/25 17:47 ng shellfish derived Allergy Intermediate Swelling, Verified 04/10/25 17:47 Hives Assessment & Plan Assessment & Plan (1) Schizophrenia: Qualifiers: Schizophrenia type: paranoid schizophrenia Qualified Code(s): F20.0 - Paranoid schizophrenia Status: Acute Code(s): F20.9 - Schizophrenia, unspecified (2) Urinary retention with incomplete bladder emptying: Status: Acute Code(s): R33.9 - Retention of urine, unspecified Assessment and Plan: ? multifactoria on 5mg amitryptiline, on risperidone low dose 0.5mg bid (3) Urinary tract infection: Status: Acute Code(s): N39.0 - Urinary tract infection, site not specified Plan Ms. Alfonso is a 65 year-old woman with hx of schizophrenia. She was brought to [facility] ED by family due to not eating, not talking not taking medications. She is on insulin and had refused at home raising concern in terms of worsening of her DM. She presents with thought blocking, poverty of thought. We discussed risks, benefits and alternative treatment options. will schedule ativan 0.5mg po TID. will obtain collateral information from OP provider as to reason to d/c haldol, also considering less potent antipsychotic but also concern to give olanzapine given high blood glucose also in context that recently started on prednisone for suspicion of giant cell arteritis pending outpatient appointment with vascular surgeon for biopsy. 04/13/25 continue ativan 0.5mg po TID. risperidone 0.5mg po BID monitor worsening of catatonic like including delayed response, mutism. 04/14 continue ativan, low dose risperidone 0.5mg po BID. monitor oversedation, worsening of catatonia like symptoms. 04/15: Consider restarting haldol if BS continue elevated although Prednisone more likely culprit. Consider hospitalist consultation for DM management while patient on prednisone. 04/16: continue current management and treatment plan. 04/17 continue tx. will try higher dose of ativan as benefit is unclear. 04/18 stop ativan- no therapeutic benefit with higher dose 04/19 continue tx. 04/22/25 review meds for constipation, get urine for ua/culture continue current treatment for psychiatric 04/23 pending ucx sent, started macrobid for 14 ? days for presumed uti, pvr after voiding to check residual and straight cath as needed- continue psych meds for now not on much 04/24 Will d/c bladder scan, await urine culture but suspect no UTI given that UA does not show bacteria. will restart ativan 0.5mg TID- due to again catatonia like s/s and seems worse than last Thursday. 04/25 more spontaneous, continue to monitor catatonia like features. may also consider namenda for negative symptoms. Reason for continued inpatient stay Substantial Risk for: inability to function Time Spent With Patient Time: Total time managing care of this patient today ____ minutes.
[2025-04-25 19:59] VITALS: BP 100/52; PULSE 94; RESP 18; TEMP 36.8; O2SAT 95
[2025-04-25 20:58] LABS: Glucose, Whole Blood 258 mg/dL (60-115)
[2025-04-26 06:36] LABS: Glucose, Whole Blood 104 mg/dL (60-115)
[2025-04-26 08:10] VITALS: BP 123/60; PULSE 78; RESP 16; TEMP 36.3; O2SAT 96
[2025-04-26 08:12] VITALS: BP 123/60
[2025-04-26 08:13] VITALS: BP 123/60; PULSE 78
[2025-04-26] MEDS: Metoprolol Succinate ER 25 MG TAB.ER.24H PO (08:13)
[2025-04-26] MEDS: Tolterodine Tartrate LA 2 MG CAP.ER.24H PO (08:14)
[2025-04-26] MEDS: Insulin Glargine,Hum.rec.anlog 100 UNIT/ML 10 ML VIAL 52 UNIT SUBCUT (08:15)
[2025-04-26 11:29] LABS: Glucose, Whole Blood 186 mg/dL (60-115)
[2025-04-26 16:39] LABS: Glucose, Whole Blood 310 mg/dL (60-115)
[2025-04-26 19:51] VITALS: BP 117/55; PULSE 87; RESP 16; TEMP 36.4; O2SAT 95
[2025-04-26 21:10] LABS: Glucose, Whole Blood 298 mg/dL (60-115)
--- NOTE | 2025-04-26 21:32 | HO.PSYCHPN ---
Subjective Subjective Date of Service: 04/26/25 Reason For Visit: psychosis Subjective Notes: Conditional Voluntary Interim History: Pt sleeping through the night. Her speech is more spontaneous. She has been out more for meals. No overt psychosis or delusions. No SI/HI. No behavioral concerns. Medication Compliance: Yes Side effects from medications: No Review of Systems Review of Systems denies SOB, no abdominal pain. No chest pain. Mental Status Exam Mental Status Exam Narrative: Appearance: wearing hospital gown, no acute distress, stare blank. Behavior: minimally engaged Psychomotor: retardation noted Speech: clear, significant delay in response, minimally spontaneous TP: thought blocking TC: non in particular, brief answers to most questions Mood: good Affect: constricted SI: denies HI: none VH/AH: appears internally preoccupied Delusions: no overt delusional content noted or reported, but appears suspicious Insight/judgment: impaired x 2. Memory/cog: alert, not to situation. not formally tested at the time of interview. Diagnostics Vital Signs (24Hr): Vital Signs - 24 hr 04/26/25 08:10 04/26/25 08:10 04/26/25 08:12 Temperature 97.3 F Pulse Rate 78 Respiratory Rate 16 Blood Pressure 123/60 123/60 123/60 Pulse Oximetry 96 Oxygen Delivery Method Room Air 04/26/25 08:13 04/26/25 19:51 Temperature 97.5 F Pulse Rate 78 87 Respiratory Rate 16 Blood Pressure 123/60 117/55 L Pulse Oximetry 95 Oxygen Delivery Method Room Air BMI result Body Mass Index 29.8 Labs 04/10/25 20:21 04/12/25 08:16 Labs: Laboratory Results - last 48 hr 04/25/25 04/25/25 04/25/25 06:30 11:28 16:38 POC Glucose 129 H 148 H 318 H 04/25/25 04/26/25 04/26/25 20:41 06:26 11:25 POC Glucose 258 H 104 186 H 04/26/25 04/26/25 16:35 21:04 POC Glucose 310 H 298 H Medications Medications Current Medications Acetaminophen (Acetaminophen 325 Mg Tablet) 650 mg PO Q6H PRN PRN Reason: Headache/Pain, Scale 1-10 Acyclovir (Acyclovir 200 Mg Capsule) 400 mg PO TID [facility] Last Admin: 04/26/25 19:54 Dose: 400 mg Al Hydroxide/Mg Hydroxide (Magnesium Hydrox/Alum Hydrox 30 Ml Oral.Susp) 30 ml PO Q6H PRN PRN Reason: Heartburn/Nausea Amitriptyline HCl (Amitriptyline Hcl 10 Mg Tablet) 5 mg PO BEDTIME [facility] Last Admin: 04/26/25 19:54 Dose: 5 mg Atorvastatin Calcium (Atorvastatin Calcium 10 Mg Tablet) 10 mg PO BEDTIME [facility] Last Admin: 04/26/25 19:54 Dose: 10 mg Bisacodyl (Bisacodyl 5 Mg Tablet.Dr) 10 mg PO BEDTIME PRN PRN Reason: Constipation Dextrose (Dextrose 50 % 25 Gm/50 Ml Syringe) 25 gm IVPUSH Q15M PRN; Protocol PRN Reason: per Hypoglycemia Standing Ord. Dextrose (Dextrose 50 % 25 Gm/50 Ml Syringe) 25 gm IVPUSH Q15M PRN; Protocol PRN Reason: per Hypoglycemia Standing Ord. Divalproex Sodium (Divalproex Sodium Er 500 Mg Tab.Er.24h) 1,000 mg PO BEDTIME [facility] Last Admin: 04/26/25 19:55 Dose: 1,000 mg Furosemide (Furosemide 40 Mg Tablet) 40 mg PO DAILY [facility]; Protocol Last Admin: 04/26/25 08:10 Dose: 40 mg Glucose (Glucose Gel 15 Gm Gel..Gram.) 15 gm PO Q15M PRN; Protocol PRN Reason: per Hypoglycemia Standing Ord. Insulin Glargine (Insulin Glargine,Hum.Rec.Anlog 100 Unit/Ml 10 Ml Vial) 52 unit SUBCUT DAILY [facility] Last Admin: 04/26/25 08:15 Dose: 52 unit Insulin Human Lispro (Insulin Lispro 100 Unit/Ml 3 Ml Vial) 0 unit SUBCUT QIDACHS [facility]; Protocol Last Admin: 04/26/25 21:13 Dose: 6 unit Lisinopril (Lisinopril 40 Mg Tablet) 40 mg PO DAILY [facility]; Protocol Last Admin: 04/26/25 08:12 Dose: 40 mg Lorazepam (Lorazepam 0.5 Mg Tablet) 0.5 mg PO TID [facility] Last Admin: 04/26/25 19:53 Dose: 0.5 mg Magnesium Hydroxide (Milk Of Magnesia 30 Ml Oral.Susp) 30 ml PO DAILY PRN PRN Reason: Constipation Last Admin: 04/22/25 14:48 Dose: 30 ml Metoprolol Succinate (Metoprolol Succinate Er 25 Mg Tab.Er.24h) 25 mg PO DAILY [facility]; Protocol Last Admin: 04/26/25 08:13 Dose: 25 mg Omeprazole (Omeprazole 20 Mg Capsule.Dr) 20 mg PO DAILY@0630 [facility] Last Admin: 04/26/25 05:25 Dose: 20 mg Polyethylene Glycol (Polyethylene Glycol 3350 17 Gm Powd.Pack) 17 gm PO BID [facility] Last Admin: 04/26/25 19:58 Dose: 17 gm Prednisone (Prednisone 10 Mg Tablet) 30 mg PO DAILY [facility]; Taper Stop: 05/05/25 08:59 Last Admin: 04/26/25 08:08 Dose: 30 mg Risperidone (Risperidone 0.5 Mg Tablet) 0.5 mg PO BID [facility] Last Admin: 04/26/25 19:54 Dose: 0.5 mg Ropinirole HCl (Ropinirole Hcl 1 Mg Tablet) 1 mg PO BEDTIME [facility] Last Admin: 04/26/25 19:54 Dose: 1 mg Senna/Docusate Sodium (Sennosides/Docusate Sodium Tablet) 1 tab PO BID [facility] Last Admin: 04/26/25 19:54 Dose: 1 tab Tolterodine Tartrate (Tolterodine Tartrate La 2 Mg Cap.Er.24h) 2 mg PO DAILY [facility] Last Admin: 04/26/25 08:14 Dose: 2 mg Trazodone HCl (Trazodone Hcl 50 Mg Tablet) 50 mg PO BEDTIME PRN PRN Reason: Insomnia Last Admin: 04/13/25 20:23 Dose: 50 mg Allergies Allergies Allergy/AdvReac Type Severity Reaction Status Date / Time Penicillins Allergy Intermediate rash/swelli Verified 04/10/25 17:47 ng shellfish derived Allergy Intermediate Swelling, Verified 04/10/25 17:47 Hives Assessment & Plan Assessment & Plan (1) Schizophrenia: Qualifiers: Schizophrenia type: paranoid schizophrenia Qualified Code(s): F20.0 - Paranoid schizophrenia Status: Acute Code(s): F20.9 - Schizophrenia, unspecified (2) Urinary retention with incomplete bladder emptying: Status: Acute Code(s): R33.9 - Retention of urine, unspecified Assessment and Plan: ? multifactoria on 5mg amitryptiline, on risperidone low dose 0.5mg bid (3) Urinary tract infection: Status: Acute Code(s): N39.0 - Urinary tract infection, site not specified Plan Ms. Alfonso is a 65 year-old woman with hx of schizophrenia. She was brought to [facility] by family due to not eating, not talking not taking medications. She is on insulin and had refused at home raising concern in terms of worsening of her DM. She presents with thought blocking, poverty of thought. We discussed risks, benefits and alternative treatment options. will schedule ativan 0.5mg po TID. will obtain collateral information from OP provider as to reason to d/c haldol, also considering less potent antipsychotic but also concern to give olanzapine given high blood glucose also in context that recently started on prednisone for suspicion of giant cell arteritis pending outpatient appointment with vascular surgeon for biopsy. 04/13/25 continue ativan 0.5mg po TID. risperidone 0.5mg po BID monitor worsening of catatonic like including delayed response, mutism. 04/14 continue ativan, low dose risperidone 0.5mg po BID. monitor oversedation, worsening of catatonia like symptoms. 04/15: Consider restarting haldol if BS continue elevated although Prednisone more likely culprit. Consider hospitalist consultation for DM management while patient on prednisone. 04/16: continue current management and treatment plan. 04/17 continue tx. will try higher dose of ativan as benefit is unclear. 04/18 stop ativan- no therapeutic benefit with higher dose 04/19 continue tx. 04/22/25 review meds for constipation, get urine for ua/culture continue current treatment for psychiatric 04/23 pending ucx sent, started macrobid for 14 ? days for presumed uti, pvr after voiding to check residual and straight cath as needed- continue psych meds for now not on much 04/24 Will d/c bladder scan, await urine culture but suspect no UTI given that UA does not show bacteria. will restart ativan 0.5mg TID- due to again catatonia like s/s and seems worse than last Thursday. 04/26 continue tx. Reason for continued inpatient stay Substantial Risk for: inability to function Time Spent With Patient Time: Total time managing care of this patient today ____ minutes.
[2025-04-27 06:28] LABS: Glucose, Whole Blood 157 mg/dL (60-115)
[2025-04-27 08:00] VITALS: BP 152/71; PULSE 70; RESP 18; TEMP 36; O2SAT 96
[2025-04-27] MEDS: Insulin Glargine,Hum.rec.anlog 100 UNIT/ML 10 ML VIAL 52 UNIT SUBCUT (09:09)
[2025-04-27] MEDS: Metoprolol Succinate ER 25 MG TAB.ER.24H PO (09:11)
[2025-04-27] MEDS: Tolterodine Tartrate LA 2 MG CAP.ER.24H PO (09:12)
--- NOTE | 2025-04-27 11:39 | PC.NURSE ---
Pt's POC 475. Provider Noman made aware. Awaiting orders.
[2025-04-27 16:50] LABS: Glucose, Whole Blood 476 mg/dL (60-115)
[2025-04-27 16:50] LABS: Glucose, Whole Blood 297 mg/dL (60-115)
[2025-04-27 19:51] VITALS: BP 122/62; PULSE 76; RESP 16; TEMP 36; O2SAT 95
--- NOTE | 2025-04-27 20:55 | P.PNPSI_ITS ---
Subjective Subjective Date of Service: 04/27/25 Reason For Visit: psychosis Interim History: Pt sleeping through the night. Her speech is more spontaneous. She has been out more for meals. No overt psychosis or delusions. No SI/HI. No behavioral concerns. Review of Systems Review of Systems denies SOB, no abdominal pain. No chest pain. Mental Status Exam Mental Status Exam Narrative: Appearance: wearing hospital gown, no acute distress, stare blank. Behavior: minimally engaged Psychomotor: retardation noted Speech: clear, significant delay in response, minimally spontaneous TP: thought blocking TC: non in particular, brief answers to most questions Mood: good Affect: constricted SI: denies HI: none VH/AH: appears internally preoccupied Delusions: no overt delusional content noted or reported, but appears suspicious Insight/judgment: impaired x 2. Memory/cog: alert, not to situation. not formally tested at the time of interview. Diagnostics Vital Signs (24Hr): Vital Signs - 24 hr 04/27/25 08:00 04/27/25 19:51 Temperature 96.8 F 96.8 F Pulse Rate 70 76 Respiratory Rate 18 16 Blood Pressure 152/71 H 122/62 Pulse Oximetry 96 95 Oxygen Delivery Method Room Air Room Air BMI result Body Mass Index 29.8 Labs 04/10/25 20:21 04/12/25 08:16 Labs: Laboratory Results - last 48 hr 04/25/25 04/26/25 04/26/25 20:41 06:26 11:25 POC Glucose 258 H 104 186 H 04/26/25 04/26/25 04/27/25 16:35 21:04 06:23 POC Glucose 310 H 298 H 157 H 04/27/25 04/27/25 11:36 16:45 POC Glucose 476 H* 297 H Medications Medications Current Medications Acetaminophen (Acetaminophen 325 Mg Tablet) 650 mg PO Q6H PRN PRN Reason: Headache/Pain, Scale 1-10 Acyclovir (Acyclovir 200 Mg Capsule) 400 mg PO TID [facility] Last Admin: 04/27/25 19:55 Dose: 400 mg Al Hydroxide/Mg Hydroxide (Magnesium Hydrox/Alum Hydrox 30 Ml Oral.Susp) 30 ml PO Q6H PRN PRN Reason: Heartburn/Nausea Atorvastatin Calcium (Atorvastatin Calcium 10 Mg Tablet) 10 mg PO BEDTIME [facility] Last Admin: 04/27/25 19:55 Dose: 10 mg Bisacodyl (Bisacodyl 5 Mg Tablet.) 10 mg PO BEDTIME PRN PRN Reason: Constipation Dextrose (Dextrose 50 % 25 Gm/50 Ml Syringe) 25 gm IVPUSH Q15M PRN; Protocol PRN Reason: per Hypoglycemia Standing Ord. Dextrose (Dextrose 50 % 25 Gm/50 Ml Syringe) 25 gm IVPUSH Q15M PRN; Protocol PRN Reason: per Hypoglycemia Standing Ord. Divalproex Sodium (Divalproex Sodium Er 500 Mg Tab.Er.24h) 1,000 mg PO BEDTIME [facility] Last Admin: 04/27/25 19:55 Dose: 1,000 mg Furosemide (Furosemide 40 Mg Tablet) 40 mg PO DAILY [facility]; Protocol Last Admin: 04/27/25 09:10 Dose: 40 mg Glucose (Glucose Gel 15 Gm Gel..Gram.) 15 gm PO Q15M PRN; Protocol PRN Reason: per Hypoglycemia Standing Ord. Insulin Glargine (Insulin Glargine,Hum.Rec.Anlog 100 Unit/Ml 10 Ml Vial) 52 unit SUBCUT DAILY [facility] Last Admin: 04/27/25 09:09 Dose: 52 unit Insulin Human Lispro (Insulin Lispro 100 Unit/Ml 3 Ml Vial) 0 unit SUBCUT QIDACHS [facility]; Protocol Last Admin: 04/27/25 17:06 Dose: Not Given Lisinopril (Lisinopril 40 Mg Tablet) 40 mg PO DAILY [facility]; Protocol Last Admin: 04/27/25 09:12 Dose: 40 mg Lorazepam (Lorazepam 0.5 Mg Tablet) 0.5 mg PO TID [facility] Last Admin: 04/27/25 19:56 Dose: 0.5 mg Magnesium Hydroxide (Milk Of Magnesia 30 Ml Oral.Susp) 30 ml PO DAILY PRN PRN Reason: Constipation Last Admin: 04/22/25 14:48 Dose: 30 ml Metoprolol Succinate (Metoprolol Succinate Er 25 Mg Tab.Er.24h) 25 mg PO DAILY [facility]; Protocol Last Admin: 04/27/25 09:11 Dose: 25 mg Omeprazole (Omeprazole 20 Mg Capsule.) 20 mg PO DAILY@0630 [facility] Last Admin: 04/27/25 05:24 Dose: 20 mg Polyethylene Glycol (Polyethylene Glycol 3350 17 Gm Powd.Pack) 17 gm PO BID [facility] Last Admin: 04/27/25 19:54 Dose: 17 gm Prednisone (Prednisone 10 Mg Tablet) 30 mg PO DAILY [facility]; Taper Stop: 05/05/25 08:59 Last Admin: 04/27/25 09:12 Dose: 30 mg Risperidone (Risperidone 0.5 Mg Tablet) 0.5 mg PO BID [facility] Last Admin: 04/27/25 19:55 Dose: 0.5 mg Ropinirole HCl (Ropinirole Hcl 1 Mg Tablet) 1 mg PO BEDTIME [facility] Last Admin: 04/27/25 19:55 Dose: 1 mg Senna/Docusate Sodium (Sennosides/Docusate Sodium Tablet) 1 tab PO BID [facility] Last Admin: 04/27/25 19:56 Dose: 1 tab Tolterodine Tartrate (Tolterodine Tartrate La 2 Mg Cap.Er.24h) 2 mg PO DAILY [facility] Last Admin: 04/27/25 09:12 Dose: 2 mg Trazodone HCl (Trazodone Hcl 50 Mg Tablet) 50 mg PO BEDTIME PRN PRN Reason: Insomnia Last Admin: 04/13/25 20:23 Dose: 50 mg Allergies Allergies Allergy/AdvReac Type Severity Reaction Status Date / Time Penicillins Allergy Intermediate rash/swelli Verified 04/10/25 17:47 ng shellfish derived Allergy Intermediate Swelling, Verified 04/10/25 17:47 Hives Assessment & Plan Assessment & Plan (1) Schizophrenia: Qualifiers: Schizophrenia type: paranoid schizophrenia Qualified Code(s): F20.0 - Paranoid schizophrenia Status: Acute Code(s): F20.9 - Schizophrenia, unspecified (2) Urinary retention with incomplete bladder emptying: Status: Acute Code(s): R33.9 - Retention of urine, unspecified Assessment and Plan: ? multifactoria on 5mg amitryptiline, on risperidone low dose 0.5mg bid (3) Urinary tract infection: Status: Acute Code(s): N39.0 - Urinary tract infection, site not specified Plan Ms. Alfonso is a 65 year-old woman with hx of schizophrenia. She was brought [place] [facility] [place] family due to not eating, not talking not taking medications. She is on insulin and had refused at home raising concern in terms of worsening of her DM. She presents with thought blocking, poverty of thought. We discussed risks, benefits and alternative treatment options. will schedule ativan 0.5mg po TID. will obtain collateral information from OP provider as to reason to d/c haldol, also considering less potent antipsychotic but also concern to give olanzapine given high blood glucose also in context that recently started on prednisone for suspicion of giant cell arteritis pending outpatient appointment with vascular surgeon for biopsy. 04/13/25 continue ativan 0.5mg po TID. risperidone 0.5mg po BID monitor worsening of catatonic like including delayed response, mutism. 04/14 continue ativan, low dose risperidone 0.5mg po BID. monitor oversedation, worsening of catatonia like symptoms. 04/15: Consider restarting haldol if BS continue elevated although Prednisone more likely culprit. Consider hospitalist consultation for DM management while patient on prednisone. 04/16: continue current management and treatment plan. 04/17 continue tx. will try higher dose of ativan as benefit is unclear. 04/18 stop ativan- no therapeutic benefit with higher dose 04/19 continue tx. 04/22/25 review meds for constipation, get urine for ua/culture continue current treatment for psychiatric 04/23 pending ucx sent, started macrobid for 14 ? days for presumed uti, pvr after voiding to check residual and straight cath as needed- continue psych meds for now not on much 04/24 Will d/c bladder scan, await urine culture but suspect no UTI given that UA does not show bacteria. will restart ativan 0.5mg TID- due to again catatonia like s/s and seems worse than last Thursday. 04/25 more spontaneous, continue to monitor catatonia like features. may also consider namenda for negative symptoms. 04/27 continue tx. Reason for continued inpatient stay Substantial Risk for: inability to function Time Spent With Patient Time: Total time managing care of this patient today ____ minutes.
[2025-04-27 21:16] LABS: Glucose, Whole Blood 238 mg/dL (60-115)
[2025-04-28 06:28] LABS: Glucose, Whole Blood 118 mg/dL (60-115)
[2025-04-28] MEDS: Insulin Glargine,Hum.rec.anlog 100 UNIT/ML 10 ML VIAL 52 UNIT SUBCUT ×2 (09:10→09:40)
[2025-04-28 09:12] VITALS: BP 133/67; PULSE 72; RESP 16; TEMP 36.2; O2SAT 97
[2025-04-28] MEDS: Metoprolol Succinate ER 25 MG TAB.ER.24H PO (09:40)
[2025-04-28] MEDS: Tolterodine Tartrate LA 2 MG CAP.ER.24H PO (09:41)
--- NOTE | 2025-04-28 09:58 | PC.NURSE ---
Pt c/o dizziness and vaginal pain not worsened by urination. VSS. Reported to provider via [employer]
[2025-04-28 11:31] LABS: Glucose, Whole Blood 245 mg/dL (60-115)
--- NOTE | 2025-04-28 12:08 | PC.NURSE ---
Pt refusing lunch. Humolog being held and reported to provider face to face.
--- NOTE | 2025-04-28 16:30 | P.PNPSI_ITS ---
Subjective Subjective Date of Service: 04/28/25 Reason For Visit: psychosis Subjective Notes: Conditional Voluntary Interim History: Pt sleeping through the night. Her speech is more spontaneous. She has been out more for meals. No overt psychosis or delusions. No SI/HI. No behavioral concerns. Reported burning when urinating- will repeat UA Review of Systems Review of Systems denies SOB, no abdominal pain. No chest pain. Mental Status Exam Mental Status Exam Narrative: Appearance: wearing hospital gown, no acute distress, stare blank. Behavior: minimally engaged Psychomotor: retardation noted Speech: clear, significant delay in response, minimally spontaneous TP: thought blocking TC: non in particular, brief answers to most questions Mood: good Affect: constricted SI: denies HI: none VH/AH: appears internally preoccupied Delusions: no overt delusional content noted or reported, but appears suspicious Insight/judgment: impaired x 2. Memory/cog: alert, not to situation. not formally tested at the time of interview. Diagnostics Vital Signs (24Hr): Vital Signs - 24 hr 04/27/25 19:51 04/28/25 09:12 Temperature 96.8 F 97.1 F Pulse Rate 76 72 Respiratory Rate 16 16 Blood Pressure 122/62 133/67 Pulse Oximetry 95 97 Oxygen Delivery Method Room Air Room Air BMI result Body Mass Index 29.8 Labs 04/10/25 20:21 04/12/25 08:16 Labs: Laboratory Results - last 48 hr 04/26/25 04/26/25 04/27/25 16:35 21:04 06:23 POC Glucose 310 H 298 H 157 H 04/27/25 04/27/25 04/27/25 11:36 16:45 21:11 POC Glucose 476 H* 297 H 238 H 04/28/25 04/28/25 06:23 11:27 POC Glucose 118 H 245 H Medications Medications Current Medications Acetaminophen (Acetaminophen 325 Mg Tablet) 650 mg PO Q6H PRN PRN Reason: Headache/Pain, Scale 1-10 Acyclovir (Acyclovir 200 Mg Capsule) 400 mg PO TID [facility] Last Admin: 04/28/25 15:22 Dose: 400 mg Al Hydroxide/Mg Hydroxide (Magnesium Hydrox/Alum Hydrox 30 Ml Oral.Susp) 30 ml PO Q6H PRN PRN Reason: Heartburn/Nausea Atorvastatin Calcium (Atorvastatin Calcium 10 Mg Tablet) 10 mg PO BEDTIME [facility] Last Admin: 04/27/25 19:55 Dose: 10 mg Bisacodyl (Bisacodyl 5 Mg Tablet.Dr) 10 mg PO BEDTIME PRN PRN Reason: Constipation Dextrose (Dextrose 50 % 25 Gm/50 Ml Syringe) 25 gm IVPUSH Q15M PRN; Protocol PRN Reason: per Hypoglycemia Standing Ord. Dextrose (Dextrose 50 % 25 Gm/50 Ml Syringe) 25 gm IVPUSH Q15M PRN; Protocol PRN Reason: per Hypoglycemia Standing Ord. Divalproex Sodium (Divalproex Sodium Er 500 Mg Tab.Er.24h) 1,000 mg PO BEDTIME [facility] Last Admin: 04/27/25 19:55 Dose: 1,000 mg Furosemide (Furosemide 40 Mg Tablet) 40 mg PO DAILY [facility]; Protocol Last Admin: 04/28/25 09:41 Dose: 40 mg Glucose (Glucose Gel 15 Gm Gel..Gram.) 15 gm PO Q15M PRN; Protocol PRN Reason: per Hypoglycemia Standing Ord. Insulin Glargine (Insulin Glargine,Hum.Rec.Anlog 100 Unit/Ml 10 Ml Vial) 52 unit SUBCUT DAILY [facility] Last Admin: 04/28/25 09:40 Dose: 52 unit Insulin Human Lispro (Insulin Lispro 100 Unit/Ml 3 Ml Vial) 0 unit SUBCUT QIDACHS [facility]; Protocol Last Admin: 04/28/25 12:09 Dose: Not Given Lisinopril (Lisinopril 40 Mg Tablet) 40 mg PO DAILY [facility]; Protocol Last Admin: 04/28/25 09:41 Dose: 40 mg Lorazepam (Lorazepam 0.5 Mg Tablet) 0.5 mg PO TID [facility] Last Admin: 04/28/25 15:22 Dose: 0.5 mg Magnesium Hydroxide (Milk Of Magnesia 30 Ml Oral.Susp) 30 ml PO DAILY PRN PRN Reason: Constipation Last Admin: 04/22/25 14:48 Dose: 30 ml Metoprolol Succinate (Metoprolol Succinate Er 25 Mg Tab.Er.24h) 25 mg PO DAILY [facility]; Protocol Last Admin: 04/28/25 09:40 Dose: 25 mg Omeprazole (Omeprazole 20 Mg Capsule.Dr) 20 mg PO DAILY@0630 [facility] Last Admin: 04/28/25 05:47 Dose: 20 mg Polyethylene Glycol (Polyethylene Glycol 3350 17 Gm Powd.Pack) 17 gm PO BID [facility] Last Admin: 04/28/25 09:43 Dose: 17 gm Prednisone (Prednisone 10 Mg Tablet) 20 mg PO DAILY [facility]; Taper Stop: 05/05/25 08:59 Last Admin: 04/28/25 09:42 Dose: 20 mg Risperidone (Risperidone 0.5 Mg Tablet) 0.5 mg PO BID [facility] Last Admin: 04/28/25 09:41 Dose: 0.5 mg Ropinirole HCl (Ropinirole Hcl 1 Mg Tablet) 1 mg PO BEDTIME [facility] Last Admin: 04/27/25 19:55 Dose: 1 mg Senna/Docusate Sodium (Sennosides/Docusate Sodium Tablet) 1 tab PO BID [facility] Last Admin: 04/28/25 09:42 Dose: 1 tab Tolterodine Tartrate (Tolterodine Tartrate La 2 Mg Cap.Er.24h) 2 mg PO DAILY [facility] Last Admin: 04/28/25 09:41 Dose: 2 mg Trazodone HCl (Trazodone Hcl 50 Mg Tablet) 50 mg PO BEDTIME PRN PRN Reason: Insomnia Last Admin: 04/13/25 20:23 Dose: 50 mg Allergies Allergies Allergy/AdvReac Type Severity Reaction Status Date / Time Penicillins Allergy Intermediate rash/swelli Verified 04/10/25 17:47 ng shellfish derived Allergy Intermediate Swelling, Verified 04/10/25 17:47 Hives Assessment & Plan Assessment & Plan (1) Schizophrenia: Qualifiers: Schizophrenia type: paranoid schizophrenia Qualified Code(s): F20.0 - Paranoid schizophrenia Status: Acute Code(s): F20.9 - Schizophrenia, unspecified (2) Urinary tract infection: Status: Acute Code(s): N39.0 - Urinary tract infection, site not specified Plan Ms. Alfonso is a 65 year-old woman with hx of schizophrenia. She was brought to [facility] by family due to not eating, not talking not taking medications. She is on insulin and had refused at home raising concern in terms of worsening of her DM. She presents with thought blocking, poverty of thought. We discussed risks, benefits and alternative treatment options. will schedule ativan 0.5mg po TID. will obtain collateral information from OP provider as to reason to d/c haldol, also considering less potent antipsychotic but also concern to give olanzapine given high blood glucose also in context that recently started on prednisone for suspicion of giant cell arteritis pending outpatient appointment with vascular surgeon for biopsy. 04/13/25 continue ativan 0.5mg po TID. risperidone 0.5mg po BID monitor worsening of catatonic like including delayed response, mutism. 04/14 continue ativan, low dose risperidone 0.5mg po BID. monitor oversedation, worsening of catatonia like symptoms. 04/15: Consider restarting haldol if BS continue elevated although Prednisone more likely culprit. Consider hospitalist consultation for DM management while patient on prednisone. 04/16: continue current management and treatment plan. 04/17 continue tx. will try higher dose of ativan as benefit is unclear. 04/18 stop ativan- no therapeutic benefit with higher dose 04/19 continue tx. 04/22/25 review meds for constipation, get urine for ua/culture continue current treatment for psychiatric 04/23 pending ucx sent, started macrobid for 14 ? days for presumed uti, pvr after voiding to check residual and straight cath as needed- continue psych meds for now not on much 04/24 Will d/c bladder scan, await urine culture but suspect no UTI given that UA does not show bacteria. will restart ativan 0.5mg TID- due to again catatonia like s/s and seems worse than last Thursday. 04/25 more spontaneous, continue to monitor catatonia like features. may also consider namenda for negative symptoms. 04/27 continue tx. 04/28 will repeat UA, otherwise stable. Reason for continued inpatient stay Substantial Risk for: inability to function Time Spent With Patient Time: Total time managing care of this patient today ____ minutes.
[2025-04-28 16:47] LABS: Glucose, Whole Blood 236 mg/dL (60-115)
[2025-04-28 20:00] VITALS: BP 113/55; PULSE 62; RESP 18; TEMP 36.3; O2SAT 96
[2025-04-28 21:07] LABS: Glucose, Whole Blood 327 mg/dL (60-115)
[2025-04-29 06:31] LABS: Glucose, Whole Blood 115 mg/dL (60-115)
[2025-04-29 08:31] VITALS: BP 122/68; PULSE 75; RESP 16; TEMP 36.4; O2SAT 99
[2025-04-29] MEDS: Tolterodine Tartrate LA 2 MG CAP.ER.24H PO (08:32)
[2025-04-29] MEDS: Metoprolol Succinate ER 25 MG TAB.ER.24H PO (08:33)
[2025-04-29] MEDS: Insulin Glargine,Hum.rec.anlog 100 UNIT/ML 10 ML VIAL 52 UNIT SUBCUT (08:36)
[2025-04-29 11:31] LABS: Glucose, Whole Blood 228 mg/dL (60-115)
--- NOTE | 2025-04-29 13:04 | HO.PSYCHPN ---
Subjective Subjective Date of Service: 04/29/25 Reason For Visit: psychosis Subjective Notes: Conditional Voluntary Interim History: Patient was seen and discussed in rounds today. Records and plans were reviewed. She was seen by an refrigerating technician. No complaints. Eating and sleeping adequately. On 5 minute checks. Prednisone is being decreased. No behavioral issues. Review of Systems Review of Systems Yes Unobtainable due to mental status Mental Status Exam Mental Status Exam Narrative: In today's visit she is alert, pleasant and cooperative. Speech soft-spoken. Little eye contact. No signs of psychosis. No SI. No behavioral issues reported. Cognitively impaired. Judgment is impaired Diagnostics Vital Signs (24Hr): Vital Signs - 24 hr 04/28/25 20:00 04/29/25 08:31 Temperature 97.4 F 97.5 F Pulse Rate 62 75 Respiratory Rate 18 16 Blood Pressure 113/55 L 122/68 Pulse Oximetry 96 99 Oxygen Delivery Method Room Air Room Air BMI result Body Mass Index 29.8 Labs 04/10/25 20:21 04/12/25 08:16 Labs: Laboratory Results - last 48 hr 04/27/25 04/27/25 04/27/25 11:36 16:45 21:11 POC Glucose 476 H* 297 H 238 H 04/28/25 04/28/25 04/28/25 06:23 11:27 16:42 POC Glucose 118 H 245 H 236 H 04/28/25 04/29/25 04/29/25 21:02 06:26 11:27 POC Glucose 327 H 115 228 H Medications Medications Current Medications Acetaminophen (Acetaminophen 325 Mg Tablet) 650 mg PO Q6H PRN PRN Reason: Headache/Pain, Scale 1-10 Acyclovir (Acyclovir 200 Mg Capsule) 400 mg PO TID [facility] Last Admin: 04/29/25 08:32 Dose: 400 mg Al Hydroxide/Mg Hydroxide (Magnesium Hydrox/Alum Hydrox 30 Ml Oral.Susp) 30 ml PO Q6H PRN PRN Reason: Heartburn/Nausea Atorvastatin Calcium (Atorvastatin Calcium 10 Mg Tablet) 10 mg PO BEDTIME [facility] Last Admin: 04/28/25 20:03 Dose: 10 mg Bisacodyl (Bisacodyl 5 Mg Tablet.Dr) 10 mg PO BEDTIME PRN PRN Reason: Constipation Dextrose (Dextrose 50 % 25 Gm/50 Ml Syringe) 25 gm IVPUSH Q15M PRN; Protocol PRN Reason: per Hypoglycemia Standing Ord. Dextrose (Dextrose 50 % 25 Gm/50 Ml Syringe) 25 gm IVPUSH Q15M PRN; Protocol PRN Reason: per Hypoglycemia Standing Ord. Divalproex Sodium (Divalproex Sodium Er 500 Mg Tab.Er.24h) 1,000 mg PO BEDTIME [facility] Last Admin: 04/28/25 20:03 Dose: 1,000 mg Furosemide (Furosemide 40 Mg Tablet) 40 mg PO DAILY [facility]; Protocol Last Admin: 04/29/25 08:31 Dose: 40 mg Glucose (Glucose Gel 15 Gm Gel..Gram.) 15 gm PO Q15M PRN; Protocol PRN Reason: per Hypoglycemia Standing Ord. Insulin Glargine (Insulin Glargine,Hum.Rec.Anlog 100 Unit/Ml 10 Ml Vial) 52 unit SUBCUT DAILY [facility] Last Admin: 04/29/25 08:36 Dose: 52 unit Insulin Human Lispro (Insulin Lispro 100 Unit/Ml 3 Ml Vial) 0 unit SUBCUT QIDACHS [facility]; Protocol Last Admin: 04/29/25 12:03 Dose: Not Given Lisinopril (Lisinopril 40 Mg Tablet) 40 mg PO DAILY [facility]; Protocol Last Admin: 04/29/25 08:32 Dose: 40 mg Lorazepam (Lorazepam 0.5 Mg Tablet) 0.5 mg PO TID [facility] Last Admin: 04/29/25 08:31 Dose: 0.5 mg Magnesium Hydroxide (Milk Of Magnesia 30 Ml Oral.Susp) 30 ml PO DAILY PRN PRN Reason: Constipation Last Admin: 04/22/25 14:48 Dose: 30 ml Metoprolol Succinate (Metoprolol Succinate Er 25 Mg Tab.Er.24h) 25 mg PO DAILY [facility]; Protocol Last Admin: 04/29/25 08:33 Dose: 25 mg Omeprazole (Omeprazole 20 Mg Capsule.Dr) 20 mg PO DAILY@0630 [facility] Last Admin: 04/29/25 05:31 Dose: 20 mg Polyethylene Glycol (Polyethylene Glycol 3350 17 Gm Powd.Pack) 17 gm PO BID [facility] Last Admin: 04/29/25 08:33 Dose: 17 gm Prednisone (Prednisone 10 Mg Tablet) 20 mg PO DAILY [facility]; Taper Stop: 05/05/25 08:59 Last Admin: 04/29/25 08:30 Dose: 20 mg Risperidone (Risperidone 0.5 Mg Tablet) 0.5 mg PO BID [facility] Last Admin: 04/29/25 08:33 Dose: 0.5 mg Ropinirole HCl (Ropinirole Hcl 1 Mg Tablet) 1 mg PO BEDTIME [facility] Last Admin: 04/28/25 20:03 Dose: 1 mg Senna/Docusate Sodium (Sennosides/Docusate Sodium Tablet) 1 tab PO BID [facility] Last Admin: 04/29/25 08:31 Dose: 1 tab Tolterodine Tartrate (Tolterodine Tartrate La 2 Mg Cap.Er.24h) 2 mg PO DAILY [facility] Last Admin: 04/29/25 08:32 Dose: 2 mg Trazodone HCl (Trazodone Hcl 50 Mg Tablet) 50 mg PO BEDTIME PRN PRN Reason: Insomnia Last Admin: 04/13/25 20:23 Dose: 50 mg Allergies Allergies Allergy/AdvReac Type Severity Reaction Status Date / Time Penicillins Allergy Intermediate rash/swelli Verified 04/10/25 17:47 ng shellfish derived Allergy Intermediate Swelling, Verified 04/10/25 17:47 Hives Assessment & Plan Assessment & Plan (1) Schizophrenia: Qualifiers: Schizophrenia type: paranoid schizophrenia Qualified Code(s): F20.0 - Paranoid schizophrenia Status: Acute Code(s): F20.9 - Schizophrenia, unspecified (2) Urinary tract infection: Status: Acute Code(s): N39.0 - Urinary tract infection, site not specified Plan Ms. Alfonso is a 65 year-old woman with hx of schizophrenia. She was [place] [facility] [place] family due to not eating, not talking not taking medications. She is on insulin and had refused at home raising concern in terms of worsening of her DM. She presents with thought blocking, poverty of thought. We discussed risks, benefits and alternative treatment options. will schedule ativan 0.5mg po TID. will obtain collateral information from OP provider as to reason to d/c haldol, also considering less potent antipsychotic but also concern to give olanzapine given high blood glucose also in context that recently started on prednisone for suspicion of giant cell arteritis pending outpatient appointment with vascular surgeon for biopsy. 04/13/25 continue ativan 0.5mg po TID. risperidone 0.5mg po BID monitor worsening of catatonic like including delayed response, mutism. 04/14 continue ativan, low dose risperidone 0.5mg po BID. monitor oversedation, worsening of catatonia like symptoms. 04/15: Consider restarting haldol if BS continue elevated although Prednisone more likely culprit. Consider hospitalist consultation for DM management while patient on prednisone. 04/16: continue current management and treatment plan. 04/17 continue tx. will try higher dose of ativan as benefit is unclear. 04/18 stop ativan- no therapeutic benefit with higher dose 04/19 continue tx. 04/22/25 review meds for constipation, get urine for ua/culture continue current treatment for psychiatric 04/23 pending ucx sent, started macrobid for 14 ? days for presumed uti, pvr after voiding to check residual and straight cath as needed- continue psych meds for now not on much 04/24 Will d/c bladder scan, await urine culture but suspect no UTI given that UA does not show bacteria. will restart ativan 0.5mg TID- due to again catatonia like s/s and seems worse than last Thursday. 04/25 more spontaneous, continue to monitor catatonia like features. may also consider namenda for negative symptoms. 04/27 continue tx. 04/29: Continue current regimen and plans 04/28 will repeat UA, otherwise stable. 04/29: Continue current regimen and plans Reason for continued inpatient stay Substantial Risk for: inability to function Time Spent With Patient Time: Total time managing care of this patient today ____ minutes.
[2025-04-29 16:30] LABS: Glucose, Whole Blood 154 mg/dL (60-115)
[2025-04-29 20:00] VITALS: BP 123/58; PULSE 75; RESP 16; TEMP 36; O2SAT 95
[2025-04-29 21:06] LABS: Glucose, Whole Blood 269 mg/dL (60-115)
[2025-04-30 07:24] LABS: Glucose, Whole Blood 61 mg/dL (60-115)
[2025-04-30 07:24] LABS: Glucose, Whole Blood 68 mg/dL (60-115)
[2025-04-30 08:00] VITALS: BP 116/57; PULSE 64; RESP 16; TEMP 36.2; O2SAT 97
[2025-04-30 08:26] LABS: Glucose, Whole Blood 113 mg/dL (60-115)
[2025-04-30 09:26] VITALS: BP 105/52
[2025-04-30 09:27] VITALS: BP 105/52
[2025-04-30] MEDS: Tolterodine Tartrate LA 2 MG CAP.ER.24H PO (09:29)
[2025-04-30] MEDS: Insulin Glargine,Hum.rec.anlog 100 UNIT/ML 10 ML VIAL 52 UNIT SUBCUT (09:30)
[2025-04-30 09:31] VITALS: BP 105/52; PULSE 77
[2025-04-30 09:43] LABS: Glucose, Whole Blood 182 mg/dL (60-115)
--- NOTE | 2025-04-30 10:59 | P.PNPSI_ITS ---
Subjective Subjective Date of Service: 04/30/25 Reason For Visit: psychosis Subjective Notes: Conditional Voluntary Interim History: Patient was seen and discussed in rounds today. Records and plans were reviewed. No complaints. Eating and sleeping adequately. She has been cooperative and compliant. No complaints or side effects. Metoprolol was held because of blood pressure. Somewhat brighter in her affect. Review of Systems Review of Systems Yes Unobtainable due to mental status Mental Status Exam Mental Status Exam Narrative: In today's visit she is alert, pleasant and cooperative. Speech soft-spoken. Little eye contact. No signs of psychosis. No SI. No behavioral issues reported. Cognitively impaired. Judgment is impaired Diagnostics Vital Signs (24Hr): Vital Signs - 24 hr 04/29/25 20:00 04/30/25 08:00 04/30/25 09:26 Temperature 96.8 F 97.2 F Pulse Rate 75 64 Respiratory Rate 16 16 Blood Pressure 123/58 L 116/57 L 105/52 L Pulse Oximetry 95 97 Oxygen Delivery Method Room Air Room Air 04/30/25 09:27 04/30/25 09:31 Temperature Pulse Rate 77 Respiratory Rate Blood Pressure 105/52 L 105/52 L Pulse Oximetry Oxygen Delivery Method BMI result Body Mass Index 29.8 Labs 04/10/25 20:21 04/12/25 08:16 Labs: Laboratory Results - last 48 hr 04/28/25 04/28/25 04/28/25 11:27 16:42 21:02 POC Glucose 245 H 236 H 327 H 04/29/25 04/29/25 04/29/25 06:26 11:27 16:24 POC Glucose 115 228 H 154 H 04/29/25 04/30/25 04/30/25 21:02 06:52 07:19 POC Glucose 269 H 61 68 04/30/25 04/30/25 08:23 09:22 POC Glucose 113 182 H Medications Medications Current Medications Acetaminophen (Acetaminophen 325 Mg Tablet) 650 mg PO Q6H PRN PRN Reason: Headache/Pain, Scale 1-10 Acyclovir (Acyclovir 200 Mg Capsule) 400 mg PO TID [facility] Last Admin: 04/30/25 09:25 Dose: 400 mg Al Hydroxide/Mg Hydroxide (Magnesium Hydrox/Alum Hydrox 30 Ml Oral.Susp) 30 ml PO Q6H PRN PRN Reason: Heartburn/Nausea Atorvastatin Calcium (Atorvastatin Calcium 10 Mg Tablet) 10 mg PO BEDTIME [facility] Last Admin: 04/29/25 21:58 Dose: 10 mg Bisacodyl (Bisacodyl 5 Mg Tablet.Dr) 10 mg PO BEDTIME PRN PRN Reason: Constipation Dextrose (Dextrose 50 % 25 Gm/50 Ml Syringe) 25 gm IVPUSH Q15M PRN; Protocol PRN Reason: per Hypoglycemia Standing Ord. Dextrose (Dextrose 50 % 25 Gm/50 Ml Syringe) 25 gm IVPUSH Q15M PRN; Protocol PRN Reason: per Hypoglycemia Standing Ord. Divalproex Sodium (Divalproex Sodium Er 500 Mg Tab.Er.24h) 1,000 mg PO BEDTIME [facility] Last Admin: 04/29/25 21:58 Dose: 1,000 mg Furosemide (Furosemide 40 Mg Tablet) 40 mg PO DAILY [facility]; Protocol Last Admin: 04/30/25 09:27 Dose: 40 mg Glucose (Glucose Gel 15 Gm Gel..Gram.) 15 gm PO Q15M PRN; Protocol PRN Reason: per Hypoglycemia Standing Ord. Insulin Glargine (Insulin Glargine,Hum.Rec.Anlog 100 Unit/Ml 10 Ml Vial) 52 unit SUBCUT DAILY [facility] Last Admin: 04/30/25 09:30 Dose: 52 unit Insulin Human Lispro (Insulin Lispro 100 Unit/Ml 3 Ml Vial) 0 unit SUBCUT QIDACHS [facility]; Protocol Last Admin: 04/30/25 08:18 Dose: Not Given Lisinopril (Lisinopril 40 Mg Tablet) 40 mg PO DAILY [facility]; Protocol Last Admin: 04/30/25 09:26 Dose: 40 mg Lorazepam (Lorazepam 0.5 Mg Tablet) 0.5 mg PO TID [facility] Last Admin: 04/30/25 09:29 Dose: 0.5 mg Magnesium Hydroxide (Milk Of Magnesia 30 Ml Oral.Susp) 30 ml PO DAILY PRN PRN Reason: Constipation Last Admin: 04/22/25 14:48 Dose: 30 ml Metoprolol Succinate (Metoprolol Succinate Er 25 Mg Tab.Er.24h) 25 mg PO DAILY [facility]; Protocol Last Admin: 04/30/25 09:31 Dose: Not Given Omeprazole (Omeprazole 20 Mg Capsule.Dr) 20 mg PO DAILY@0630 [facility] Last Admin: 04/30/25 06:50 Dose: 20 mg Polyethylene Glycol (Polyethylene Glycol 3350 17 Gm Powd.Pack) 17 gm PO BID [facility] Last Admin: 04/30/25 09:30 Dose: 17 gm Prednisone (Prednisone 10 Mg Tablet) 20 mg PO DAILY [facility]; Taper Stop: 05/05/25 08:59 Last Admin: 04/30/25 09:26 Dose: 20 mg Risperidone (Risperidone 0.5 Mg Tablet) 0.5 mg PO BID [facility] Last Admin: 04/30/25 09:29 Dose: 0.5 mg Ropinirole HCl (Ropinirole Hcl 1 Mg Tablet) 1 mg PO BEDTIME [facility] Last Admin: 04/29/25 21:58 Dose: 1 mg Senna/Docusate Sodium (Sennosides/Docusate Sodium Tablet) 1 tab PO BID [facility] Last Admin: 04/30/25 09:27 Dose: 1 tab Tolterodine Tartrate (Tolterodine Tartrate La 2 Mg Cap.Er.24h) 2 mg PO DAILY [facility] Last Admin: 04/30/25 09:29 Dose: 2 mg Trazodone HCl (Trazodone Hcl 50 Mg Tablet) 50 mg PO BEDTIME PRN PRN Reason: Insomnia Last Admin: 04/29/25 21:58 Dose: 50 mg Allergies Allergies Allergy/AdvReac Type Severity Reaction Status Date / Time Penicillins Allergy Intermediate rash/swelli Verified 04/10/25 17:47 ng shellfish derived Allergy Intermediate Swelling, Verified 04/10/25 17:47 Hives Assessment & Plan Assessment & Plan (1) Schizophrenia: Qualifiers: Schizophrenia type: paranoid schizophrenia Qualified Code(s): F20.0 - Paranoid schizophrenia Status: Acute Code(s): F20.9 - Schizophrenia, unspecified (2) Urinary tract infection: Status: Acute Code(s): N39.0 - Urinary tract infection, site not specified Plan Ms. Alfonso is a 65 year-old woman with hx of schizophrenia. [place] [facility] [place] due to not eating, not talking not taking medications. She is on insulin and had refused at home raising concern in terms of worsening of her DM. She presents with thought blocking, poverty of thought. We discussed risks, benefits and alternative treatment options. will schedule ativan 0.5mg po TID. will obtain collateral information from OP provider as to reason to d/c haldol, also considering less potent antipsychotic but also concern to give olanzapine given high blood glucose also in context that recently started on prednisone for suspicion of giant cell arteritis pending outpatient appointment with vascular surgeon for biopsy. 04/13/25 continue ativan 0.5mg po TID. risperidone 0.5mg po BID monitor worsening of catatonic like including delayed response, mutism. 04/14 continue ativan, low dose risperidone 0.5mg po BID. monitor oversedation, worsening of catatonia like symptoms. 04/15: Consider restarting haldol if BS continue elevated although Prednisone more likely culprit. Consider hospitalist consultation for DM management while patient on prednisone. 04/16: continue current management and treatment plan. 04/17 continue tx. will try higher dose of ativan as benefit is unclear. 04/18 stop ativan- no therapeutic benefit with higher dose 04/19 continue tx. 04/22/25 review meds for constipation, get urine for ua/culture continue current treatment for psychiatric 04/23 pending ucx sent, started macrobid for 14 ? days for presumed uti, pvr after voiding to check residual and straight cath as needed- continue psych meds for now not on much 04/24 Will d/c bladder scan, await urine culture but suspect no UTI given that UA does not show bacteria. will restart ativan 0.5mg TID- due to again catatonia like s/s and seems worse than last Thursday. 04/25 more spontaneous, continue to monitor catatonia like features. may also consider namenda for negative symptoms. 04/27 continue tx. 04/29: Continue current regimen and plans 04/28 will repeat UA, otherwise stable. 04/29: Continue current regimen and plans 04/30: Continue current plans and regimen Reason for continued inpatient stay Substantial Risk for: inability to function Time Spent With Patient Time: Total time managing care of this patient today ____ minutes.
[2025-04-30 11:29] LABS: Glucose, Whole Blood 194 mg/dL (60-115)
--- NOTE | 2025-04-30 14:03 | PC.NURSE ---
During morning report, night RN reported a blood sugar of 61 at 0652. RN reported giving pt 4 oz of juice. Night RN rechecked pt sugar at 0719 and it was 68. Pt received another 4oz of cranberry juice. Pt then ate breakfast and RN rechecked her blood sugar postprandial which was 113. No insulin lispro coverage provided per protocol. RN assessed pt one hour later and pt reported feeling lightheaded. RN rechecked blood sugar which was 182.
[2025-04-30 16:32] LABS: Glucose, Whole Blood 278 mg/dL (60-115)
[2025-04-30 19:39] VITALS: BP 100/49; PULSE 88; RESP 17; TEMP 36.1; O2SAT 93
[2025-04-30 20:50] LABS: Glucose, Whole Blood 272 mg/dL (60-115)
[2025-05-01 06:33] LABS: Glucose, Whole Blood 273 mg/dL (60-115)
[2025-05-01 07:55] VITALS: BP 164/78; PULSE 92; RESP 18; TEMP 36.8; O2SAT 98
[2025-05-01] MEDS: Insulin Glargine,Hum.rec.anlog 100 UNIT/ML 10 ML VIAL 52 UNIT SUBCUT (08:07)
[2025-05-01] MEDS: Tolterodine Tartrate LA 2 MG CAP.ER.24H PO (08:09)
[2025-05-01] MEDS: Metoprolol Succinate ER 25 MG TAB.ER.24H PO (08:09)
--- NOTE | 2025-05-01 08:52 | HO.PSYCHPN ---
Subjective Subjective Date of Service: 05/01/25 Reason For Visit: psychosis Subjective Notes: Conditional Voluntary Healthcare Proxy: Yes Interim History: Pt slept 8hrs. She was sitting in dinning room. She was looking at this publicity writer most of the time. briefly denied any complaints and then was mostly quite. Per nursing, pt has been more visible, and eating better. She is taking medications. Medication Compliance: Yes Review of Systems Review of Systems denies SOB, no abdominal pain. No chest pain. Yes Unobtainable due to mental status Mental Status Exam Mental Status Exam Narrative: Appearance: wearing hospital gown, no acute distress, stare blank. Behavior: minimally engaged Psychomotor: retardation noted Speech: clear, significant delay in response, minimally spontaneous TP: thought blocking TC: non in particular, brief answers to most questions Mood: good Affect: constricted SI: denies HI: none VH/AH: appears internally preoccupied Delusions: no overt delusional content noted or reported, but appears suspicious Insight/judgment: impaired x 2. Memory/cog: alert, not to situation. not formally tested at the time of interview. Diagnostics Vital Signs (24Hr): Vital Signs - 24 hr 04/30/25 09:26 04/30/25 09:27 04/30/25 09:31 Temperature Pulse Rate 77 Respiratory Rate Blood Pressure 105/52 L 105/52 L 105/52 L Pulse Oximetry Oxygen Delivery Method 04/30/25 19:39 Temperature 97.0 F Pulse Rate 88 Respiratory Rate 17 Blood Pressure 100/49 L Pulse Oximetry 93 Oxygen Delivery Method Room Air BMI result Body Mass Index 29.8 Labs 04/10/25 20:21 04/12/25 08:16 Labs: Laboratory Results - last 48 hr 04/29/25 04/29/25 04/29/25 11:27 16:24 21:02 POC Glucose 228 H 154 H 269 H 04/30/25 04/30/25 04/30/25 06:52 07:19 08:23 POC Glucose 61 68 113 04/30/25 04/30/25 04/30/25 09:22 11:25 16:23 POC Glucose 182 H 194 H 278 H 04/30/25 05/01/25 20:44 06:29 POC Glucose 272 H 273 H Medications Medications Current Medications Acetaminophen (Acetaminophen 325 Mg Tablet) 650 mg PO Q6H PRN PRN Reason: Headache/Pain, Scale 1-10 Acyclovir (Acyclovir 200 Mg Capsule) 400 mg PO TID [facility] Last Admin: 05/01/25 08:09 Dose: 400 mg Al Hydroxide/Mg Hydroxide (Magnesium Hydrox/Alum Hydrox 30 Ml Oral.Susp) 30 ml PO Q6H PRN PRN Reason: Heartburn/Nausea Atorvastatin Calcium (Atorvastatin Calcium 10 Mg Tablet) 10 mg PO BEDTIME [facility] Last Admin: 04/30/25 19:52 Dose: 10 mg Bisacodyl (Bisacodyl 5 Mg Tablet.Dr) 10 mg PO BEDTIME PRN PRN Reason: Constipation Dextrose (Dextrose 50 % 25 Gm/50 Ml Syringe) 25 gm IVPUSH Q15M PRN; Protocol PRN Reason: per Hypoglycemia Standing Ord. Dextrose (Dextrose 50 % 25 Gm/50 Ml Syringe) 25 gm IVPUSH Q15M PRN; Protocol PRN Reason: per Hypoglycemia Standing Ord. Divalproex Sodium (Divalproex Sodium Er 500 Mg Tab.Er.24h) 1,000 mg PO BEDTIME [facility] Last Admin: 04/30/25 19:52 Dose: 1,000 mg Furosemide (Furosemide 40 Mg Tablet) 40 mg PO DAILY [facility]; Protocol Last Admin: 05/01/25 08:09 Dose: 40 mg Glucose (Glucose Gel 15 Gm Gel..Gram.) 15 gm PO Q15M PRN; Protocol PRN Reason: per Hypoglycemia Standing Ord. Insulin Glargine (Insulin Glargine,Hum.Rec.Anlog 100 Unit/Ml 10 Ml Vial) 52 unit SUBCUT DAILY [facility] Last Admin: 05/01/25 08:07 Dose: 52 unit Insulin Human Lispro (Insulin Lispro 100 Unit/Ml 3 Ml Vial) 0 unit SUBCUT QIDACHS [facility]; Protocol Last Admin: 05/01/25 08:08 Dose: 6 unit Lisinopril (Lisinopril 40 Mg Tablet) 40 mg PO DAILY [facility]; Protocol Last Admin: 05/01/25 08:09 Dose: 40 mg Lorazepam (Lorazepam 0.5 Mg Tablet) 0.5 mg PO TID [facility] Last Admin: 05/01/25 08:09 Dose: 0.5 mg Magnesium Hydroxide (Milk Of Magnesia 30 Ml Oral.Susp) 30 ml PO DAILY PRN PRN Reason: Constipation Last Admin: 04/22/25 14:48 Dose: 30 ml Metoprolol Succinate (Metoprolol Succinate Er 25 Mg Tab.Er.24h) 25 mg PO DAILY [facility]; Protocol Last Admin: 05/01/25 08:09 Dose: 25 mg Omeprazole (Omeprazole 20 Mg Capsule.Dr) 20 mg PO DAILY@0630 [facility] Last Admin: 05/01/25 05:29 Dose: 20 mg Polyethylene Glycol (Polyethylene Glycol 3350 17 Gm Powd.Pack) 17 gm PO BID [facility] Last Admin: 05/01/25 08:09 Dose: 17 gm Prednisone (Prednisone 10 Mg Tablet) 20 mg PO DAILY [facility]; Taper Stop: 05/05/25 08:59 Last Admin: 05/01/25 08:09 Dose: 20 mg Risperidone (Risperidone 0.5 Mg Tablet) 0.5 mg PO BID [facility] Last Admin: 05/01/25 08:09 Dose: 0.5 mg Ropinirole HCl (Ropinirole Hcl 1 Mg Tablet) 1 mg PO BEDTIME [facility] Last Admin: 04/30/25 19:51 Dose: 1 mg Senna/Docusate Sodium (Sennosides/Docusate Sodium Tablet) 1 tab PO BID [facility] Last Admin: 05/01/25 08:09 Dose: 1 tab Tolterodine Tartrate (Tolterodine Tartrate La 2 Mg Cap.Er.24h) 2 mg PO DAILY [facility] Last Admin: 05/01/25 08:09 Dose: 2 mg Trazodone HCl (Trazodone Hcl 50 Mg Tablet) 50 mg PO BEDTIME PRN PRN Reason: Insomnia Last Admin: 04/29/25 21:58 Dose: 50 mg Allergies Allergies Allergy/AdvReac Type Severity Reaction Status Date / Time Penicillins Allergy Intermediate rash/swelli Verified 04/10/25 17:47 ng shellfish derived Allergy Intermediate Swelling, Verified 04/10/25 17:47 Hives Assessment & Plan Assessment & Plan (1) Schizophrenia: Qualifiers: Schizophrenia type: paranoid schizophrenia Qualified Code(s): F20.0 - Paranoid schizophrenia Status: Acute Code(s): F20.9 - Schizophrenia, unspecified (2) Urinary tract infection: Status: Acute Code(s): N39.0 - Urinary tract infection, site not specified Plan Ms. Alfonso is a 65 year-old woman with hx of schizophrenia. She was brought to [facility] ED by family due to not eating, not talking not taking medications. She is on insulin and had refused at home raising concern in terms of worsening of her DM. She presents with thought blocking, poverty of thought. We discussed risks, benefits and alternative treatment options. will schedule ativan 0.5mg po TID. will obtain collateral information from OP provider as to reason to d/c haldol, also considering less potent antipsychotic but also concern to give olanzapine given high blood glucose also in context that recently started on prednisone for suspicion of giant cell arteritis pending outpatient appointment with vascular surgeon for biopsy. 04/13/25 continue ativan 0.5mg po TID. risperidone 0.5mg po BID monitor worsening of catatonic like including delayed response, mutism. 04/14 continue ativan, low dose risperidone 0.5mg po BID. monitor oversedation, worsening of catatonia like symptoms. 04/15: Consider restarting haldol if BS continue elevated although Prednisone more likely culprit. Consider hospitalist consultation for DM management while patient on prednisone. 04/16: continue current management and treatment plan. 04/17 continue tx. will try higher dose of ativan as benefit is unclear. 04/18 stop ativan- no therapeutic benefit with higher dose 04/19 continue tx. 04/22/25 review meds for constipation, get urine for ua/culture continue current treatment for psychiatric 04/23 pending ucx sent, started macrobid for 14 ? days for presumed uti, pvr after voiding to check residual and straight cath as needed- continue psych meds for now not on much 04/24 Will d/c bladder scan, await urine culture but suspect no UTI given that UA does not show bacteria. will restart ativan 0.5mg TID- due to again catatonia like s/s and seems worse than last Thursday. 04/25 more spontaneous, continue to monitor catatonia like features. may also consider namenda for negative symptoms. 04/27 continue tx. 04/29: Continue current regimen and plans 04/28 will repeat UA, otherwise stable. 04/29: Continue current regimen and plans 04/30: Continue current plans and regimen 05/01 will increase risperidone to 1mg po BID. continue ativan. Reason for continued inpatient stay Substantial Risk for: inability to function Time Spent With Patient Time: Total time managing care of this patient today ____ minutes.
[2025-05-01 11:12] LABS: Glucose, Whole Blood 196 mg/dL (60-115)
[2025-05-01 16:27] LABS: Glucose, Whole Blood 255 mg/dL (60-115)
[2025-05-01 19:34] VITALS: BP 117/58; PULSE 81; RESP 16; TEMP 36.4; O2SAT 95
[2025-05-01 20:23] LABS: Glucose, Whole Blood 271 mg/dL (60-115)
[2025-05-02 06:47] LABS: Glucose, Whole Blood 154 mg/dL (60-115)
[2025-05-02 08:00] VITALS: BP 110/55; PULSE 69; RESP 16; TEMP 36.3; O2SAT 95
[2025-05-02] MEDS: Insulin Glargine,Hum.rec.anlog 100 UNIT/ML 10 ML VIAL 52 UNIT SUBCUT (08:20)
[2025-05-02 08:21] VITALS: BP 110/55; PULSE 69
[2025-05-02] MEDS: Metoprolol Succinate ER 25 MG TAB.ER.24H PO (08:21)
[2025-05-02] MEDS: Tolterodine Tartrate LA 2 MG CAP.ER.24H PO (08:21)
[2025-05-02 08:22] VITALS: BP 110/55
--- NOTE | 2025-05-02 11:13 | PM.PSYDC ---
DS: Providers Provider Date of Service: 05/02/25 Date of admission: 04/11/25 16:51 Date of discharge: 05/03/25 Primary care physician: Unknown Physician Consults: 04/20/25 11:59 Consult to Hospitalist Routine Comment: on night, pt >300 even after got scheduled 10 unit Consulting Provider: [facility] Hospitalists Reason For Exam: insulin reg for BS NOT by sched insuline 04/23/25 15:57 Consult to Hospitalist Stat Comment: Consulting Provider: [facility] Hospitalists Reason For Exam: urinary retention DS: Diagnosis Discharge Diagnosis (1) Schizophrenia: Status: Acute (2) Urinary tract infection: Status: Acute DS: Medications Discharge Medications Home Medications: Previous Rx's ?Medication ?Instructions ?Recorded blood-glucose meter (Prodigy #1 ea 02/08/24 Autocode Meter kit) lancets 28 gauge (Prodigy Lancets) #100 ea 02/08/24 walker #1 ea 07/26/24 blood-glucose meter (FreeStyle #1 ea 11/29/24 Lite Meter kit) blood sugar diagnostic (FreeStyle #100 ea 12/20/24 Test strips) adult diapers pull-ups #240 ea 03/27/25 pen needle, diabetic 32 gauge x #100 ea 04/18/25 5/32 (1st Tier Unifine Pentips) acyclovir 400 mg tablet 400 mg PO TID 30 days #90 tabs 05/02/25 atorvastatin 10 mg tablet 10 mg PO BEDTIME 30 days #30 tabs 05/02/25 divalproex 500 mg tablet,extended 1,000 mg (2 x 500 mg) PO BEDTIME 05/02/25 release 24 hr 90 days #180 tabs dulaglutide 1.5 mg/0.5 mL 1.5 mg (0.5 mL) subcut FR 30 days 05/02/25 subcutaneous pen injector #2 mL (Trulicity) furosemide 40 mg tablet 40 mg PO DAILY 30 days #90 tabs 05/02/25 insulin glargine 100 unit/mL 52 unit (0.52 mL) subcut DAILY 30 05/02/25 subcutaneous solution (Lantus days #15.6 mL U-100 Insulin) lisinopril 20 mg tablet 40 mg (2 x 20 mg) PO DAILY 90 days 05/02/25 #180 tabs lorazepam 0.5 mg tablet 0.5 mg PO TID 30 days #90 tabs 05/02/25 metoprolol succinate 25 mg 25 mg PO DAILY 30 days #30 tabs 05/02/25 tablet,extended release 24 hr omeprazole 20 mg capsule,delayed 20 mg PO DAILY@0630 30 days #30 05/02/25 release caps polyethylene glycol 3350 17 gram 17 g PO BID 30 days #60 ea 05/02/25 oral powder packet prednisone 10 mg tablet 10 mg PO DAILY 7 days #7 tabs 05/02/25 risperidone 1 mg tablet 1 mg PO BID 30 days #60 tabs 05/02/25 ropinirole 0.25 mg tablet 1 mg (4 x 0.25 mg) PO BEDTIME 30 05/02/25 days #120 tabs sennosides 8.6 mg-docusate sodium 1 tab PO BID 30 days #60 tabs 05/02/25 50 mg tablet (Senna with Docusate Sodium) tolterodine 2 mg capsule,extended 2 mg PO DAILY 90 days #90 caps 05/02/25 release 24 hr trazodone 50 mg tablet 50 mg PO BEDTIME PRN Insomnia 30 05/02/25 days #30 tabs Mental Status Exam Mental Status Exam Narrative: Appearance: wearing hospital gown, no acute distress, stare blank. Behavior: minimally engaged Psychomotor: retardation noted Speech: clear, significant delay in response, minimally spontaneous TP: thought blocking TC: none in particular, brief answers to most questions Mood: good Affect: constricted SI: denies HI: none VH/AH: appears internally preoccupied Delusions: no overt delusional content noted or reported, but appears suspicious Insight/judgment: impaired x 2. Memory/cog: alert, not to situation. not formally tested at the time of interview. Data Data Completed and Pending Completed studies during hospitalization [Text1]: 04/25/25 04/25/25 04/25/25 11:28 16:38 20:41 POC Glucose 148 H 318 H 258 H 04/26/25 04/26/25 04/26/25 06:26 11:25 16:35 POC Glucose 104 186 H 310 H 04/26/25 04/27/25 04/27/25 21:04 06:23 11:36 POC Glucose 298 H 157 H 476 H* 04/27/25 04/27/2525 16:45 21:11 06:23 POC Glucose 297 H 238 H 118 H 04/28/25 04/28/25 04/28/25 11:27 16:42 21:02 POC Glucose 245 H 236 H 327 H 04/29/25 04/29/25 04/29/25 06:26 11:27 16:24 POC Glucose 115 228 H 154 H 04/29/25 04/30/25 04/30/25 21:02 06:52 07:19 POC Glucose 269 H 61 68 04/30/25 04/30/25 04/30/25 08:23 09:22 11:25 POC Glucose 113 182 H 194 H 04/30/25 04/30/25 05/01/25 16:23 20:44 06:29 POC Glucose 278 H 272 H 273 H 05/01/25 05/01/25 05/01/25 11:07 16:22 20:19 POC Glucose 196 H 255 H 271 H 05/02/25 06:43 POC Glucose 154 H 04/23/25 Unknown Urine clean catch - Clean Catch Midstream Urine Culture - Final 04/22/25 18:00 Urine clean catch Urine Culture - Final 04/11/25 17:45 Urine clean catch - Clean Catch Midstream Urine Culture - Final DS: Summary Hospital Course Hospital Course: per 04/12 admission note: HPI Subjective Notes: [place] Warning and Section 12B Healthcare Proxy: Yes Narrative: Ms. Alfonso is a 65 year-old woman with hx of schizophrenia. She was brought by family due to patient not eating, not moving much from her bed, not taking medications appearing more suspicious than usual. 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 Pertienent labs completed in the ED include cbc without leukocytosis, no anemia; CMP without electrolyte abnormalities, BUN 15, Cr 0.76, creatinine clearance 68.7. Utox negative. UA with glucose, small leukocytosis and bacteria, pending urine culture. LFT wnl. TSH 2.61. B12 1215. Head CT with no acute findings, chronic atrophy and microvascular changes. On the unit, pt presents as calm, with delayed response, staring but does look at this copy writer as soon as I call her name. She reports she is not sure as to why she is here. She denies SI/HI. She denies VH/AH but appears internally preoccupied and thought blocking. She does not report any delusional content. Her thought content is marked by poverty of thought. Collateral information gathered from her niece who is HCP. She reports at baseline pt is talkative and attends a day program. Past Psychiatric History: Inpt: hx of inpt admission in [place] prior to coming to [facility] in 2021. 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 OP: Anahy Kelley NP [facility] (currently only two medications he is prescribing for her are low dose amitriptyline 10mg po qhs and ropinirole). Past med trials: haldol, depakote, clonazepam Medical Evaluation Reviewed: Yes [facility] Medical History Class 1 obesity Anxiety Atypical pneumonia Pneumonitis Nausea Abdominal pain Osteoporosis Hypertension History of blood clot in brain Hypercholesteremia HSV-2 (herpes simplex virus 2) infection Arthritis Rheumatic fever Schizophrenia GERD (gastroesophageal reflux disease) Depression HTN (hypertension) Hyperlipemia Diabetes Surgical History Hx of colonoscopy History of tubal ligation History of cystostomy History of 2 sections Family History: sister - panic disorder Social History: highest completed grade is 4th. spent her entire life in [place] until moving to [place] to live with her son in 2008. She moved to [facility] back in 2021 to be with her sister. she denies she has any income. she is living with her sister. Substance History: none Trauma History: denies Precis: Ms. Alfonso is a 65 year-old woman with hx of schizophrenia. She was brought to [facility] ED by family due to not eating, not talking not taking medications. She is on insulin and had refused at home raising concern in terms of worsening of her DM. She presents with thought blocking, poverty of thought. We discussed risks, benefits and alternative treatment options. will schedule ativan 0.5mg po TID. will obtain collateral information from OP provider as to reason to d/c haldol, also considering less potent antipsychotic but also concern to give olanzapine given high blood glucose also in context that recently started on prednisone for suspicion of giant cell arteritis pending outpatient appointment with vascular surgeon for biopsy. 04/12: Admit to S1, sect 12b, 5 minute checks. ativan 0.5mg po TID. continue depakote. obtain collateral from OP provider. OT assessments. aftercare planning 04/13/25 continue ativan 0.5mg po TID. risperidone 0.5mg po BID monitor worsening of catatonic like including delayed response, mutism. 04/14 continue ativan, low dose risperidone 0.5mg po BID. monitor oversedation, worsening of catatonia like symptoms. 04/15: Consider restarting haldol if BS continue elevated although Prednisone more likely culprit. Consider hospitalist consultation for DM management while patient on prednisone. 04/16: continue current management and treatment plan. 04/17 continue tx. will try higher dose of ativan as benefit is unclear. 04/18 stop ativan- no therapeutic benefit with higher dose 04/19 continue tx. 04/22/25 review meds for constipation, get urine for ua/culture continue current treatment for psychiatric 04/23 pending ucx sent, started macrobid for 14 ? days for presumed uti, pvr after voiding to check residual and straight cath as needed- continue psych meds for now not on much 04/24 Will d/c bladder scan, await urine culture but suspect no UTI given that UA does not show bacteria. will restart ativan 0.5mg TID- due to again catatonia like s/s and seems worse than last Thursday. 04/25 more spontaneous, continue to monitor catatonia like features. may also consider namenda for negative symptoms. 04/27 continue tx. 04/29: Continue current regimen and plans 04/28 will repeat UA, otherwise stable. 04/29: Continue current regimen and plans 04/30: Continue current plans and regimen 05/01 will increase risperidone to 1mg po BID. continue ativan. 05/02: safe, stable. meds reviewed, reconciled, prescribed. 05/03: discharged to home as per plan. Time Spent with Patient Time attestation: Total time managing care of this patient today __35__ minutes. Discharge Plan Discharge Anticipated Discharge Date/Time: 05/03/25 11:00 Patient Disposition: Home, Self-Care Discharge Diagnosis: Schizophrenia Referrals: [facility] [Other] - 3-5 Days Referral Note: [facility] services will be starting after discharge. They will be coming 2x a day for medication management. If you have any questions or concerns please call the number listed. [facility] [Outside] - 3-5 Days Referral Note: [facility] will be reaching out to you with an appointment date and time. If you do not hear back from them with in 3-5 days of discharge please reach out to them at the number listed. Jessica Krueger NP [Nurse Practitioner, Internal Medicine] - 05/12/25 3:30 pm Referral Note: You will see Nurse Practitioner Jessica for your follow up appointment. You'll be seen at [address] [place] [address] on 05/12 at 3:30pm. If you need to cancel or reschedule the appointment please call . Discharge Medications: New trazodone 50 mg Tablet 50 mg PO BEDTIME PRN (Reason: Insomnia) 30 Days Qty: 30 0RF polyethylene glycol 3350 17 gram Powder In Packet 17 g PO BID 30 Days Qty: 60 0RF risperidone 1 mg Tablet 1 mg PO BID 30 Days Qty: 60 0RF insulin glargine [Lantus U-100 Insulin] 100 unit/mL Solution 52 unit subcut DAILY 30 Days Qty: 15.6 0RF prednisone 10 mg Tablet 10 mg PO DAILY 7 Days Qty: 7 0RF Taper: Prednisone 50 mg daily for 2 Days and 0 Hour 40 mg daily for 7 Days and 0 Hour 30 mg daily for 7 Days and 0 Hour 20 mg daily for 7 Days and 0 Hour Rx Instructions: final leg of prednisone taper. follow up with outpatient provider once taper is completed. lorazepam 0.5 mg tablet 0.5 mg PO TID 30 Days Qty: 90 0RF Continued (DME) walker Misc See Rx Instructions .Route Qty: 1 0RF Rx Instructions: As directed (DME) blood-glucose meter [FreeStyle Lite Meter] Kit See Rx Instructions .Route Qty: 1 0RF Rx Instructions: As directed (DME) FreeStyle Test Strip See Rx Instructions .Route Qty: 100 6RF Rx Instructions: As directed three times a day (DME) adult diapers pull-ups XL See Rx Instructions .Route .MEDSUPPLY Qty: 240 11RF Rx Instructions: As directed (DME) pen needle, diabetic [1st Tier Unifine Pentips] 32 gauge x 5/32 needle See Rx Instructions .Route Qty: 100 0RF Rx Instructions: Use 1 pen needle three times a day tolterodine 2 mg capsule,extended release 24hr 2 mg PO DAILY 90 Days Qty: 90 1RF furosemide 40 mg tablet 40 mg PO DAILY 30 Days Qty: 90 3RF lisinopril 20 mg tablet 40 mg PO DAILY 90 Days Qty: 180 0RF sennosides-docusate sodium [Senna with Docusate Sodium] 8.6-50 mg tablet 1 tab PO BID 30 Days Qty: 60 0RF Rx Instructions: Please take 2 tab every day at bedtime acyclovir 400 mg tablet 400 mg PO TID 30 Days Qty: 90 0RF ropinirole 0.25 mg tablet 1 mg PO BEDTIME 30 Days Qty: 120 0RF divalproex 500 mg tablet extended release 24 hr 1,000 mg PO BEDTIME 90 Days Qty: 180 0RF omeprazole 20 mg capsule,delayed release(DR/EC) 20 mg PO DAILY@0630 30 Days Qty: 30 0RF metoprolol succinate 25 mg tablet extended release 24 hr 25 mg PO DAILY 30 Days Qty: 30 5RF Rx Instructions: Stop amlodipine Start metoprolol Trulicity 1.5 mg/0.5 mL pen injector 1.5 mg subcut FR 30 Days Qty: 2 0RF (DME) blood-glucose meter [Prodigy Autocode Meter] Kit See Rx Instructions .Route Qty: 1 0RF Rx Instructions: As directed (DME) lancets [Prodigy Lancets] 28 gauge misc See Rx Instructions .Route Qty: 100 11RF Rx Instructions: Use 1 lancet four times a day Changed atorvastatin 10 mg tablet 10 mg PO BEDTIME 30 Days Qty: 30 0RF Discontinued insulin aspart U-100 [Novolog FlexPen U-100 Insulin] 100 unit/mL (3 mL) insulin pen 10 unit subcut TID 90 Days Qty: 27 0RF polyethylene glycol 3350 17 gram/dose powder 17 g PO DAILY 60 Days Qty: 1020 2RF insulin glargine-yfgn 100 unit/mL (3 mL) insulin pen 48 unit SUBCUT DAILY 90 Days Qty: 43.2 1RF amitriptyline 10 mg tablet 5 mg PO BEDTIME prednisone 10 mg Tablet See Taper PO DIRECTED Taper: Prednisone 50 mg daily for 7 Days and 0 Hour 40 mg daily for 7 Days and 0 Hour 30 mg daily for 7 Days and 0 Hour 20 mg daily for 7 Days and 0 Hour Rx Instructions: see taper instructions, pt should have 2 more days of 50mg in taper Discharge Orders: Discharge Order (Routine); Ordered 05/03/25 Ordered By: Pato Mcdermott Diet: Diabetic diet Activity on Discharge: As tolerated Stand Alone Forms: Patient Portal Discharge page, Community Support Print Language: Sami Care Plan Goals: remain safe and stable in the outpatient treatment setting Health Concerns: diabetes Plan of Treatment: take medications as prescribed, attend appointments as scheduled Assessment: not at imminent risk of harm to self or others Discharge Date/Time: 05/03/25 11:42
[2025-05-02 11:26] LABS: Glucose, Whole Blood 307 mg/dL (60-115)
[2025-05-02 19:22] LABS: Glucose, Whole Blood 213 mg/dL (60-115)
[2025-05-02 19:43] VITALS: BP 116/58; PULSE 73; RESP 16; TEMP 36.1; O2SAT 95
[2025-05-02 20:33] LABS: Glucose, Whole Blood 323 mg/dL (60-115)
[2025-05-03 06:32] LABS: Glucose, Whole Blood 139 mg/dL (60-115)
[2025-05-03 08:35] VITALS: BP 135/63; PULSE 66; RESP 16; TEMP 36.2; O2SAT 95
[2025-05-03] MEDS: Metoprolol Succinate ER 25 MG TAB.ER.24H PO (09:26)
[2025-05-03] MEDS: Tolterodine Tartrate LA 2 MG CAP.ER.24H PO (09:26)
[2025-05-03] MEDS: Insulin Glargine,Hum.rec.anlog 100 UNIT/ML 10 ML VIAL 52 UNIT SUBCUT (09:27)
[2025-05-03 09:36] LABS: Glucose, Whole Blood 77 mg/dL (60-115)
--- NOTE | 2025-05-03 09:48 | PC.NURSE ---
When RN approached pt, pt was easy arousable, but drowsy. Pt had a blood sugar of 139 at 0625 and declined breakfast. RN rechecked blood sugar d/t pt presentation and refusal of breakfast at 0922 and it was 77. RN gave pt 4oz of [place] Juice.
== END 2025-05-03 11:42 | disposition home or self-care (01) | DRG 885 ==
LOC: HO.ED 04-11 17:19 → HO.PGERI 04-11 17:28
PROVIDERS: Psychiatry & Neurology Psychiatry; Admitting Provider Social Worker; Emergency Provider Emergency Medicine; Visit Provider Social Worker
DX: F20.9 Schizophrenia, unspecified (principal); R32 Unspecified urinary incontinence; R33.9 Retention of urine, unspecified; K59.00 Constipation, unspecified; Z91.148 Patient's other noncompliance with medication regimen for other reason; Z79.4 Long term (current) use of insulin; Z79.85 Long-term (current) use of injectable non-insulin antidiabetic drugs; Z79.899 Other long term (current) drug therapy
CPT/HCPCS: 36415; 70450; 80048; 80053; 80061; 80076; 80164; 80307; 81001; 82607; 82947; 83036; 83735; 84439; 84443; 85025; 87086; 93005; 99284; S9485

== ENCOUNTER → 2025-04-10 18:10 | Outpatient (BNV) | payer OTHER, SELFPAY | PROVIDERS: Admitting Provider Social Worker; Emergency Provider Emergency Medicine; Visit Provider Internal Medicine Cardiovascular Disease | DX: Z13.6 Encounter for screening for cardiovascular disorders (principal) | CPT/HCPCS: 93010 ==

== ENCOUNTER → 2025-04-10 18:45 | Outpatient (BNV) | payer OTHER, SELFPAY | PROVIDERS: Emergency Provider Emergency Medicine; Visit Provider Radiology Diagnostic Radiology | DX: R53.1 Weakness (principal); R41.0 Disorientation, unspecified | CPT/HCPCS: 70450 ==

== ENCOUNTER → 2025-04-11 16:51 | Outpatient (BNV) | payer OTHER, SELFPAY | PROVIDERS: Admitting Provider Social Worker; Emergency Provider Emergency Medicine; Visit Provider Social Worker | DX: F20.0 Paranoid schizophrenia (principal) | CPT/HCPCS: 90792; 99231; 99232 ==

== ENCOUNTER 2025-05-23 19:16 | Emergency (ER) | payer OTHER, SELFPAY ==
--- OUTSIDE RECORDS SUMMARY | 2019-11-17 06:30 | XMS_ITS | Continuity of Care Document ---
Author Organization [employer] Address [address] [place] [address] Phone Care Team Providers Care Returned Case Inspector Name Role Phone Gerard Valdes CNP Unavailable [...] 26, 67, 70 and 82may occur.Performed at [facility] [id number] [facility] [address] Panel Description: Microscop ic observation [Identifier] in Cervix by Cyto stain.thin prep Final PAP, THIN PREP WITH IMAGING 2019 12:52:1 1 SEE COMMENT Final Final Cytologic Interpretation ThinPrep Pap Test (Cervical): Satisfactory for evaluation. NEGATIVE FOR INTRAEPITHELIAL LESION OR MALIGNANCY. The cytologic changes of atrophy are noted. [facility]/11/20/2019Interpret [place] [address], License number: [id number]. 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 The Pap test is primarily effective for thediagnosis and prevention of squamous cell carcinoma. Regular screeningis critical for prevention. ThinPrep liquid-based slides, which meet the [employer] criteria forautomated screening, have been screened by the [employer] [facility](as of 06/07/07) along with an additional manual rescreening by acytotechnologist and, if indicated, by a pathologist. Pathology [employer] [address] [place] [address] [id number] No. [id number] CAP Accreditation No. [id number] Director: Randal Briones M.D. 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 [address] [place] [address], [id number] , [place]. tel: [phone] Referring Provider: Gutierrez Collins, [address] [place] [address], [id number] . tel:[phone] PREV VISIT, EST, AGE 40-64 [facility], [address] [place] [address], [id number] , [place] tel: [phone] [facility] annual exam (chief complaint) Routine emu farm worker examinationScreening for HPV (human papillomavirus) 5 Geno Ugarte. [address] [place] [address] [place], [place], [id number] . tel: [phone] Referring Provider: Torito Moon, [address] [place] [address] [place], [address] . tel:[phone] OFFICE/OUTPA TIENT VISIT, EST [facility] [employer], [address] [place] [address], [id number] , [place] tel: [phone] [facility] PAP repeat (chief complaint) Symptom associated with female genital organsPap smear cannot exclude high grade squamous intraepithelial lesion (ASC-H) 4 Kwadwo Whitley. [address] [place] [address], [id number] . tel: [phone] Referring Provider: Gutierrez Collins, [address] [place] [address], [id number] . tel:[phone] PREV VISIT, EST, AGE 40-64 [facility], [address] [place] [address], [id number] , [place] tel: [phone] [facility] (chief complaint) Moderate dysplasia of cervix (DESI II)Gynecological Examination 3 Kwadwo Whitley. [address] [place] [address], [id number] . tel: [phone] Referring Provider: Gutierrez Burkett MD W, [address] [place] [address], [id number] . tel:[phone] OFFICE/OUTPA TIENT VISIT, [facility] [employer] [facility], [address] [place] [address], [id number] , [place] tel: [phone] [employer] repeat pap (chief complaint) DYSPLASIA OF CERVIX NOSDYSPLASIA OF CERVIX NOS 3 Kwadwo Whitley. [address] [place] [address], [id number] . tel: [phone] Referring Provider: Gutierrez Burkett MD W, [address] [place] [address], [id number] . tel:[phone] [employer], [address] [place] [address], [id number] , [place] tel: [phone] [employer] No Information 3 Kwadwo Whitley. [address] [place] [address], [id number] . tel: [phone] OFFICE/OUTPA TIENT VISIT, [facility] [employer], [address] [place] [address], [id number] , [place] tel: [phone] [employer] No Information 3 Kwadwo Whitley. [address] [place] [address], [id number] . tel: [phone] Referring Provider: Gutierrez Collins, [address] [place] [address], [id number] . tel:[phone] OFFICE/OUTPA TIENT VISIT, [facility] [employer], [address] [place] [address], [id number] , [place] tel: [phone] [employer] No Information 2 Kwadwo Whitley. [address] [place] [address], [id number] . tel: [phone] Referring Provider: Gutierrez Burkett MD W, [address] [place] [address], [place], [address] . tel:[phone] OFFICE/OUTPA TIENT VISIT, [facility] [employer], [address] [place], [place] [address], [place], [place], [id number] , [place] tel: [phone] [employer] No Information 2 Kwadwo Whitley. [address] [place] [address], [place], [place], [id number] . tel: [phone] Referring Provider: Gutierrez Burkett MD W, [address] [place], [place] [address], [place], [address] . tel:[phone] [employer], [address] [place], [place] [address], [place], [place], [id number] , [place] tel: [phone] [employer] No Information 2 Kwadwo Whitley. [address] [place] [address], [id number] . tel: [phone] Referring Provider: Gutierrez Burkett MD W, [address] [place], [place] [address], [address] . tel:[phone] OFFICE/OUTPA TIENT VISIT, [facility] [employer], [address] [place], [place] [address], [place], [place], [id number] , [place] tel: [phone] [employer] No Information 2 Kwadwo Whitley. [address] [place] [address], [id number] . tel: [phone] Referring Provider: Gutierrez Collins, [address] [place], [address] . tel:[phone] Family History Family Member Type Diagnosis Age At Onset No Information Immunizations Vaccine Date Status Comments Flu (split) (3 yrs or older) administered Note: Invalid documented admin date was . ; Source: Other Provider Payers Payer name Insurance type Covered libertarian ID Socrates Galarza (s) [id number] Social History Type Description Quantity Date Captured [...] information: ptreturns after 5 years, very limited Dutch-accompanied by her , also limited Dutch. h/o ASC_H pap with neg biopsies, neg pap in 2012, 2013 and 2014. will repeat today. unsure of last mammogram. 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 Reason For Referral Reason For Referral No Information Plan Of Treatment Date Type Action Status Goal Colonoscopy Scre en. Due on due Goal Mammogram (Scree natalya); Bilateral. Due on due Future Order: Radiology Order Ma mmogram, Screening ([id number]), Ordered on: Ordered Future Order: Lab Order PAP (TP) - IMAGE GUIDED ([id number]), Ordered on: Ordered History Of Present Illness [...] pt returns after 5 years, very limited Dutch-accompanied by her , also limited Dutch. h/o ASC_H pap with neg biopsies, neg pap in 2012, 2013 and 2014. will repeat today. unsure of last mammogram. 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 annual exam Currently pregna nt: no. [...] return to once yearly. 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 Patient Care Teams Name Effective Dates (start - stop) Status Members No Information
--- OUTSIDE RECORDS SUMMARY | 2023-10-12 12:07 | XMS_ITS | Continuity of Care Document ---
Author Organization [facility] Address [address] [facility] [address] [place] [address] Phone Care Team Providers Care Presales Consultant Name Role Phone Blaise FREEMAN, Ujjwala Unavailable [...] THE SKIN ONCE EVERY WEEK. DELIVER TO [place] - Active acetaminophen ER 650 mg tablet,extended [...] Active clonazepam 0.5 mg tablet RX BY [facility] -- DO NOT REFILL -- REDUCED IN [...] Active PLEASE DELIVER TO [address] [facility] ELDERCARE pen needle, diabetic 31 gauge x 5/16 use 4 times a day as directed - Active ammonium lactate 12 % topical cream apply to affected area BID - Active Humalog U-100 Insulin 100 unit/mL subcutaneous solution inject by subcutaneous route pre lunch on per Sliding scale - Active Please send to [place]. Please do not autorefill.\Un julianna 200-no insulin. 201-250-4 units, 251-300-6 units, 301-350-8 units, over 350 inform clinician Natasha Ultra Strength 4 %-30 %-10 % topical cream apply to affrected area up to 3 times a day as directed - Active trazodone 100 mg tablet RX BY [facility] -- DO NOT REFILL -- take 1 tablet by oral route every bedtime - Active acetaminophen 325 mg tablet FOR USE AT DAY PROGRAM -- take 2 tablet by oral route every 4 hours as needed for pain, please do not exceed 2 doses/day at - Active polyethylene glycol 3350 17 gram/dose oral powder FOR USE AT [place] DAY PROGRAM - mix 17g into water [...] Location Reason(s) For Visit Diagnoses Date Provider [facility], [address], [place], [place], [id number], [place] tel:[phone] [place] No Information Sep- 4 Bhagavatula Ujjwala. [address] [place], [id number], [place]. tel:[phone] [facility], [address], [place], [place], [id number], [place] tel:[phone] [place] No Information Feb-2 3 Dorothea Barb. [address] [facility] [place], [id number], [place]. tel:[phone] [facility], [address], [place], [place], [address], [place] tel:[phone] [place] No Information Feb- 3 Bhagavatula Umarlinjwala. [address] [place], [id number], [place]. tel:[phone] [facility], [address], [place], [place], [id number], [place] tel:[phone] [place] Other chronic pain Feb-0 3 Jojo Ojeda. [address] [place] [address], [id number], [place]. tel:[phone] [facility], [address], [place], [place], [address], [place] tel:[phone] [place] Muscle weakness (generalized)Other chronic pain January- 3 Jojo Ojeda. [address], [place], [address], [place]. tel:[phone] [facility], [address], [place], [place], [address], [place] tel:[phone] [place] Other chronic painMuscle weakness (generalized) January- 3 Uribe Lynette. [address], [place], [address], [place]. tel:[phone] [facility], [address], [place], [place], [address], [place] tel:[phone] [place] Other chronic pain January- 3 Uribe Lynette. [address], [place], [address], [place]. tel:[phone] [facility], [address], [place], [place], [address], [place] tel:[phone] [place] Acute right-sided lo w back pain with right-sided sciatica January- 3 Baldemar Landrum. [address] [place], [place], [address], [place]. tel:[phone] [facility], [address], [place], [place], [address], [place] tel:[phone] [place] Acute right-sided lo w back pain with right-sided sciatica January-0 3 Baldemar Landrum. [address] [facility] [place], [address], [place]. tel:[phone] [facility], [address], [place], [place], [address], [place] tel:[phone] [place] Encounter for rehabilitation evaluationAcute right-sided low back pain with right-sided sciatica January-0 3 Baldemar Landrum. [address] [facility] [place], [address], [place]. tel:[phone] [facility], [address], [place], [place], [address], [place] tel:[phone] [place] Lower extremity edema (chief complaint) Localized edemaRadicular pain May-0 3 Blaise Nieto. [address] [facility] [place], [address], [place]. tel:[phone] [facility], [address], [place], [place], [address], [place] tel:[phone] [place] Lumbago with sciatic a, right side 3 Raffaele Kaden. [address] [place], [place], [address], [place]. tel:[phone] [facility], [address] [place], [place], [place], [address], [place] tel:[phone] [place] No Information 3 Raffaele Kaden. [address] [place], [place], [address], [place]. tel:[phone] [facility], [address] [facility] [address] [place], [place], [place], [address], [place] tel:[phone] [place] No Information 3 Raffaele Kaden. [address] [place], [place], [address], [place]. tel:[phone] [facility], [address] [place], [place], [place], [address], [place] tel:[phone] [place] Encounter for genera l adult medical examination without abnormal findings 3 Pedro Luis Crystal. [address] [place], [place], [address], [place]. tel:[phone] [facility], [address] [place], [place], [place], [address], [place] tel:[phone] [place] OV (chief complaint) Localized edemaLeg cramps 3 Bhagavatula Ujjwala. [address] [place], [place], [address], [place]. tel:[phone] [facility], [address], [place], [place], [address], [place] tel:[phone] [place] No Information 3 Bhagavatula Ujjwala. [address] [place], [place], [address], [place]. tel:[phone] [facility], [address] [address], [place], [place], [address], [place] tel:[phone] [place] OV (chief complaint) Bipolar 1 disorder 3 Bhagavatula Ujjwala. [address] [place], [place], [address], [place]. tel:[phone] [facility], [address] [address], [place], [place], [address], [place] tel:[phone] [place] No Information 3 Bhagavatula Ujjwala. [address] [place], [place], [address], [place]. tel:[phone] [facility], [address] [place] [address], [place], [place], [address], [place] tel:[phone] [place] No Information 3 Raffaele Alfonso. [address] [place], [place], [address], [place]. tel:[phone] [facility], [address] [address], [place], [place], [address], [place] tel:[phone] [place] No Information 0 3 Pedro Luis Crystal. [address] [place], [place], [address], [place]. tel:[phone] [facility], [facility] [address] [place] [address], [id number], [place] tel:[phone] [place] RAJENDRA (chief complaint) Bipolar 1 disorderGAD (generalized anxiety disorder)Schizophrenia, unspecified typeHypertension, unspecified typeHypercholesteremiaT ype 2 diabetes mellitus without complication, with long-term current use of insulinLong term current use of insulinHypothyroidism, unspecified typeLong-term current use of injectable noninsulin antidiabetic medicationGastroesophag eal reflux disease without esophagitisEdema, unspecified typeTremorExcessive cerumen in left ear canal 3 Pedro Luis Crystal. [address] [facility] [place], [address], [place]. tel:[phone] [facility], [address], [place], [place], [address], [place] tel:[phone] [place] No Information 3 Pedro Luis Crystal. [address] [place], [place], [address], [place]. tel:[phone] [facility], [address], [place], [place], [address], [place] tel:[phone] [place] Skin excoriation 3 Pedro Luis Crystal. [address] [place], [place], [address], [place]. tel:[phone] [facility], [address] [facility] [address] [place], [place], [place], [address], [place] tel:[phone] [place] Encounter for nutritional assessmentOther obesityDeficiency of other specified nutrient elements 3 Renetta Alvares. [address] [place], [place], [address], [place]. tel:[phone] [facility], [address] [facility] [place], [place], [place], [address], [place] tel:[phone] [place] OV (chief complaint) Left foot pain 3 Pedro Luis Crystal. [address] [place], [place], [address], [place]. tel:[phone] [facility], [address] [facility] [address] [place], [place], [place], [address], [place] tel:[phone] [place] No Information 3 Raffaele Alfonso. [address] [place], [place], [address], [place]. tel:[phone] [facility], [address], [place], [place], [address], [place] tel:[phone] [place] Encounter for rehabilitation evaluationChronic bilateral low back pain, unspecified whether sciatica presentOther chronic painPain of both shoulder jointsPain in left shoulder 2- 3 Ren Ruelas. [address] [place], [place], [address], [place]. tel:[phone] [facility], [address], [place], [place], [address], [place] tel:[phone] [place] Other lack of coordinationChronic midline low back pain, unspecified whether sciatica presentOther chronic pain 3 Ren Ruelas. [address] [place], [place], [address], [place]. tel:[phone] [facility], [address], [place], [place], [address], [place] tel:[phone] [place] Other lack of coordination Aug-2 2 Ren Ruelas. [address] [place], [place], [address], [place]. tel:[phone] [facility], [address], [place], [place], [address], [place] tel:[phone] [place] Other chronic painOt her lack of coordination Aug- 2 Ren Ruelas. [address] [place], [place], [address], [place]. tel:[phone] [facility], [address], [place], [place], [address], [place] tel:[phone] [place] Other lack of coordinationChronic bilateral low back pain, unspecified whether sciatica presentOther chronic pain Dec-2 - 2 Ren Ruelas. [address] [place], [place], [address], [place]. tel:[phone] [facility], [address], [place], [place], [address], [place] tel:[phone] [place] Muscle weakness (generalized) Dec-2 0-202 2 Ren Jessenia. [address] [place], [place], [address], [place]. tel:[phone] [facility], [address], [place], [place], [address], [place] tel:[phone] [place] Oropharyngeal dysphagia Dec-1 4-202 2 Caselden Sofiya. [address] [place], [place], [address], [place]. tel:[phone] [facility], [address], [place], [place], [address], [place] tel:[phone] [place] Other lack of coordination Dec-1 3-202 2 Renbettye Ruelas. [address] [place], [place], [address], [place]. tel:[phone] [facility], [address], [place], [place], [address], [place] tel:[phone] [place] Other lack of coordination Dec-0 8- 2 Ren Jessenia. [address], [place], [place], [address], [place]. tel:[phone] [facility], [address], [place], [place], [address], [place] tel:[phone] [place] Oropharyngeal dysphagia Dec-0 7- 2 Caselden Sofiya. [address], [place], [place], [address], [place]. tel:[phone] [facility], [address], [place], [place], [address], [place] tel:[phone] [place] Alteration in performance of activities of daily living Dec-0 6-202 2 Ren Jessenia. [address] [place], [place], [address], [place]. tel:[phone] [facility], [address], [place], [place], [address], [place] tel:[phone] [place] OV (chief complaint) DM type 2 with diabetic peripheral neuropathyLong term (current) use of insulinLong-term (current) use of injectable non-insulin antidiabetic drugs Dec- 2 Pedro Luis Crystal. [address] [place], [place], [address], [place]. tel:[phone] [facility], [address] [facility] [address], [place], [place], [address], [place] tel:[phone] [place] Alteration in performance of activities of daily living 2 Ren Ruelas. [address] [place], [place], [address], [place]. tel:[phone] [facility], [facility] [place], [place], [place], [address], [place] tel:[phone] [place] care home (current) use of insulin 2 Raffaele Alfonso. [address] [place], [place], [address], [place]. tel:[phone] [facility], [facility] [place], [place], [place], [address], [place] tel:[phone] [place] Encounter for rehabilitation evaluation 2 Ren Ruelas. [address] [place], [place], [address], [place]. tel:[phone] [facility], [facility] [address], [place], [place], [address], [place] tel:[phone] [place] Dysphagia, unspecifi ed typeFeeding difficultiesEncounter for nutritional assessment 2 Normile Dia. [address] [place], [place], [address], [place]. tel:[phone] [facility], [address] [facility] [address] [place], [place], [place], [address], [place] tel:[phone] [place] Other chronic pain 2 Uribe Lynette. [address], [place], [address], [place]. tel:[phone] [facility], [address], [place], [place], [address], [place] tel:[phone] [place] PHV (chief complaint) Bilateral shoulder pain, unspecified chronicity 2 Pedro Luis Bonilla. [address] [place], [place], [address], [place]. tel:[phone] [facility], [address], [place], [place], [address], [place] tel:[phone] [place] Other chronic pain 2 Mcdermott Lucita. [address] [place], [place], [address], [place]. tel:[phone] [facility], [address], [place], [place], [address], [place] tel:[phone] [place] Difficulty in walkin g, not elsewhere classifiedOther chronic pain 2 Uribe Lynette. [address], [place], [address], [place]. tel:[phone] [facility], [address], [place], [place], [address], [place] tel:[phone] [place] No Information 2 Raffaele Alfonso. [address] [place], [place], [address], [place]. tel:[phone] [facility], [address], [place], [place], [address], [place] tel:[phone] [place] Difficulty in walkin g, not elsewhere classifiedOther chronic pain 2 Uribe Lynette. [address], [place], [address], [place]. tel:[phone] [facility], [address], [address], [place] tel:[phone] [place] Muscle weakness (generalized) 2 Ren Ruelas. [address] [place], [place], [address], [place]. tel:[phone] [facility], [address], [place], [place], [address], [place] tel:[phone] [place] Difficulty in walkin g, not elsewhere classifiedOther chronic painMuscle weakness (generalized) 2 Uribe Lynette. [address], [place], [address], [place]. tel:[phone] [facility], [address], [place], [place], [address], [place] tel:[phone] [place] Chronic bilateral lo w back pain, unspecified whether sciatica presentOther chronic pain 2 Baldemar Landrum. [address] [place], [address], [place]. tel:[phone] [facility], [address] [place] [address], [id number], [place] tel:[phone] [place] Difficulty in walkin g, not elsewhere classifiedOther chronic pain 2 Uribe Lynette. [address], [place], [address], [place]. tel:[phone] [facility], [address], [place], [place], [address], [place] tel:[phone] [place] Other chronic painMuscle weakness (generalized) 0 2 Uribe Lynette. [address], [place], [address], [place]. tel:[phone] [facility], [address], [address], [place] tel:[phone] [place] Chronic bilateral lo w back pain, unspecified whether sciatica presentOther chronic painPain of both shoulder jointsPain in left shoulder Sep-2 2 Ren Jessenia. [address] [facility] [place], [address], [place]. tel:[phone] [facility], [address] [place], [place], [place], [address], [place] tel:[phone] [place] Other chronic pain Sep-2 2 Jojo Ojeda. [address] [place] [address], [place], [place], [address], [place]. tel:[phone] [facility], [address], [place], [place], [address], [place] tel:[phone] [place] Muscle weakness (generalized) Sep-2 2 Ren Jessenia. [address], [place], [place], [address], [place]. tel:[phone] [facility], [facility] [address] [place], [place], [place], [address], [place] tel:[phone] [place] Muscle weakness (generalized) Sep-2 2 Ren Ruelas. [address] [facility] [place], [address], [place]. tel:[phone] [facility], [address] [facility] [address] [place], [place], [place], [address], [place] tel:[phone] [place] Chronic midline low back pain, unspecified whether sciatica presentOther chronic pain Sep-2 0 2 Baldemar Landrum. [address] [facility] [address], [place], [place], [address], [place]. tel:[phone] [facility], [address] [facility] [address] [place], [place], [place], [address], [place] tel:[phone] [place] OV (chief complaint) ÓSCAR (generalized anxiety disorder) Sep-2 0 2 Pedro Luis Crystal. [address] [place], [place], [address], [place]. tel:[phone] [facility], [address], [place], [place], [address], [place] tel:[phone] [place] Chronic midline low back pain, unspecified whether sciatica presentOther chronic pain Sep-1 2 Baldemar Landrum. [address] [facility] [place], [address], [place]. tel:[phone] [facility], [address] [facility] [address] [place], [place], [place], [address], [place] tel:[phone] [place] Muscle weakness (generalized)Mild cognitive impairment, so stated Sep-1 2 Ren Jessenia. [address] [facility] [place], [address], [place]. tel:[phone] [facility], [facility] [place], [place], [place], [address], [place] tel:[phone] [place] No Information Sep-1 2 Pedro Luis Crystal. [address] [facility] [place], [address], [place]. tel:[phone] [facility], [facility] [place], [place], [place], [address], [place] tel:[phone] [place] No Information Sep-0 2 Pedro Luis Crystal. [address] [place], [place], [address], [place]. tel:[phone] [facility], [facility] [place], [place], [place], [address], [place] tel:[phone] [place] Encounter for rehabilitation evaluationChronic bilateral low back pain without sciaticaOther chronic pain Sep-0 8 2 Baldemar Landrum. [address] [facility] [place], [address], [place]. tel:[phone] [facility], [address] [facility] [address] [place], [place], [place], [address], [place] tel:[phone] [place] Muscle weakness (generalized) Sep-0 2-202 2 Ren Jessenia. [address] [place], [place], [address], [place]. tel:[phone] [facility], [address], [place], [place], [address], [place] tel:[phone] [place] No Information 2 Pedro Luis Crystal. [address], [place], [place], [address], [place]. tel:[phone] [facility], [address], [place], [place], [address], [place] tel:[phone] [place] Encounter for rehabilitation evaluationMuscle weakness (generalized) 2 Ren Jessenia. [address], [place], [place], [address], [place]. tel:[phone] [facility], [address], [place], [place], [address], [place] tel:[phone] [place] Encounter for nutritional assessment 2 Waldemar Hammera. [address], [place], [address]. tel:[phone] [facility], [address], [place], [place], [address], [place] tel:[phone] [place] Encounter for rehabilitation evaluation 2 Ren Ruelas. [address], [place], [place], [address], [place]. tel:[phone] [facility], [address], [place], [place], [address], [place] tel:[phone] [place] Encounter for rehabilitation evaluation 2 Baldemar Landrum. [address] [facility] [address], [place], [place], [address], [place]. tel:[phone] [facility], [address], [place], [place], [address], [place] tel:[phone] [place] Herpesviral vesicula r dermatitis 2 Pedro Luis Crystal. [address], [place], [place], [address], [place]. tel:[phone] [facility], [address] [facility] [address] [place], [place], [place], [address], [place] tel:[phone] [place] Encounter for genera l adult medical examination without abnormal findingsEssential (primary) hypertension 2 Pedro Luis Bonilla. [address] [facility] [place], [address], [place]. tel:[phone] [facility], [address] [facility] [address], [place], [place], [address], [place] tel:[phone] [place] PEE (chief complaint) Hypertension, unspecified typeHypercholesteremiaD M type 2 with diabetic peripheral neuropathyLong term (current) use of insulinGastroesophageal reflux disease, unspecified whether esophagitis presentGenital herpes simplex, unspecified siteBipolar 1 disorderHypothyroidism, unspecified typeGAD (generalized anxiety disorder)Schizophrenia, unspecified typeTremor 2 Pedro Luis Crystal. [address], [place], [place], [address], [place]. tel:[phone] [facility], [facility] [place], [place], [place], [address], [place] tel:[phone] [place] Hypertension, unspecified typeHypercholesteremiaD M type 2 with diabetic peripheral neuropathyHypothyroidis m, unspecified typeHerpesviral infection, unspecified 2 Dorothea Day. [address], [place], [place], [address], [place]. tel:[phone] [facility], [facility] [place], [place], [place], [address], [place] tel:[phone] [place] Medication course changed 2 Dorothea Day. [address] [place], [address], [place]. tel:[phone] [facility], [facility] [place], [place], [place], [address], [place] tel:[phone] [place] No Information 2 Raffaele Alfonso. [address] [place], [place], [address], [place]. tel:[phone] [facility], [facility], [place], [place], [address], [place] tel:[phone] [place] Intake (chief complaint) Encounter for general adult medical examination without abnormal findings 2 Raffaele Alfonso. [address] [place], [place], [address], [place]. tel:[phone] Family History Family Member Type Diagnosis Age At Onset No Information Immunizations Vaccine Date Status Comments Fluzone Quad administered [facility] e: New Immunization Record Payers Payer name Insurance type Covered green party ID Socrates lee(s) [place] [id number] [place] [id number] Social History Type Description Quantity Date Captured Comments Sex Female Smoking Status No Information Chief Complaint And Reason For Visit No Information Plan Of Treatment Date Type Action Status Referral Ordered: Physical Therapy -Therapies/Rehabilitation (related to Right-sided low back pain with right-sided sciatica, unspecified chronicity) ordered Referral Referred To: Physical Therapy Ordered: Referrals: Therapies/Rehabilitation. Physical Therapy. Consult ordered Referral Ordered: Referrals: [facility] [place] [facility] App[place]ment date/timeframe: 12/29/2022 ordered Referral Ordered: Referrals: Gynecology Appointment date/timeframe: 07/31/2022 ordered Referral Referred To: Bonilla ARCINIEGA [address] [place], [place], [id number] Ordered: Referrals: Internal Medicine. Bonilla ARCINIEGA Appointment date/timeframe: 05/13/2023 ordered Referral Referred To: Bonilla ARCINIEGA [address] [place], [place], [id number] Ordered: Referrals: Cardiology. Bonilla ARCINIEGA Appointment date/timeframe: 10/21/2022 ordered Aug-15-2022 Referral Referred To: Bonilla ARCINIEGA [address] [facility] [place], [phone] Ordered: Referrals: Rheumatology. Bonilla ARCINIEGA Appointment date/timeframe: 04/16/2023 ordered Referral Referred To: Bonilla ARCINIEGA [address] [facility] [place], [place], [phone] Ordered: Referrals: Dentistry. Bonilla ARCINIEGA Appointment date/timeframe: 12/17/2022 ordered Referral Referred To: Bonilla ARCINIEGA [address] [facility] [place], [place], [phone] Ordered: Referrals: Podiatry. Bonilla ARCINIEGA ordered Referral Referred To: Bonilla ARCINIEGA [address] [place], [place], [phone] Ordered: Referrals: Gastroenterology. Bonilla ARCINIEGA Appointment date/timeframe: 04/09/2023 ordered Referral Referred To: Bonilla ARCINIEGA [address] [place], [place], [id number] [phone] Ordered: Referrals: Msws. Bonilla ARCINIEGA ordered Referral Ordered: Referrals: Gynecology. Consult Appointment date/timeframe: 04/30/2022 ordered Future Order: Radiology Order Hi p X-ray; Unilateral, with Pelvis X-ray (2-3 views) ([id number]), Ordered on: Ordered Future Order: Radiology Order TT E Combined, 2D image, spectral Doppler, color flow image ([id number]), Ordered on: Ordered Future Order: Lab Order QUANTIFE KARLEY(R)-TB GOLD PLUS, 1 TUBE ([id number]), Ordered on: Ordered History Of Present Illness [...] satisfied with the visit.Duration of visit: 45min Comments: Partic ipant is being examined during the COVID- Pandemic. Appropriate precautions were used given CDC recommendations and available resources. Ppt seen for an acute follow up. Noted to have had a good weekend per calls kindly placed by organic preparation technician nursing. Ppt noted to be doing well, [...] She notes she is elevating her BLE. OV OV Comments: Partic ipant is being examined during the COVID-19 Pandemic. Appropriate precautions were used given CDC recommendations and available resources.Ppt seen on request of social services coordinator who was concerned ppt may be having a shiraz episode. Ppt was roomed and provider was notified at 1:45pm. Upon entering, ppt was speaking with social services coordinator. Translation was kindly provided by auditing clerk on site. This provider checked with ppt, who notes she has been having difficulty sleeping, but notes this is a chronic issue. She denies any chest pain, palpitations. She does not recall med changes that occurred per at previous psychiatry visit, these were discussed. At this time, [facility] staff walked in noting ppts ride had arrived for 2pm and there is no ability to delay. This provider was unable to perform further HPI, ROS and had to perform a limited exam.Based on this providers limited exam and the information provided by staff who know her, she appears to be at baseline. Ppt denies SI/HIVM left with ppts prescriber at [facility]. Recommended that ppt come back to see PCP on Thursday to check in regarding symptoms. This was relayed to . RAJENDRA ACOSTAIA SUKHWINDER JACQUELIN FOREMAN RAJENDRAHPI__62__ year old __female___Lives @ apt Ambulates with walker Diet is unchanged MOLST changes - noneMedications reviewedDiagnoses reviewed Injuries/Illness/Hospitalizations - seen in the ED This fall for pain in multiple joints, there was no significant findings and the ppt was xfer home on prednisone. She was seen in the clinic after and tx with ongoing conservative care. [facility] / [facility] is still being utilizedSees counseling every thursdayClonazepam, Haldol, Depakote, trazodone [id number] 7.0% -> 7.9 this fall currently using [...] being seen in clinic todayCarries dx of [id number] treated with Humalog SSI and Lantus She [...] age in NAD nontoxic appearingLUNGS ctabHEART rrr (+)[id number] soft NTEXT no edema soft and NT PHV BESSIE INDERJIT RIVER A AHSAN PHVHPIPPt seen in clinic today for PHVShe was seen in the emergency dept No records available prior to visitIt appears she was seen at [place] [facility] for pain yesterday Pain is in [...] Bipolar, ÓSCAR, SchizophreniaHistorically rx by psychiatrist in [place] Currently klonopin, Depakote, Haldol, trazodoneShbettye is a patient at [facility] recently moved into her own apartment She reports she likes it She was reported as having increased anxiety yesterdayLiliy translates Ppt reports she feels better today vs yesterday Yesterday she had palpitations None since thenThese happen from bnmc-ff-kdamVITALS HR - 8202 - 96RR - 18BP - 142/80ROSno N V F C CP SOBno ABD PAIN diarrheano cough or difficulty swallowingno rashno palpitations todayPEFemale appearing her ageSpeaks Turkmen translated by [place] RNNADMood stableAffect mildly distrustingSpeaks fluidly Answers are appropriateHEART RRR (+)t7n0Sdgsm CTABExt with trace pedal edema bilaterallyNontoxic appearing LABSDPA - 50.7 TSH - 1.94 PEE HPI_62 ___ year old ___female__[place] with sisterMedications reviewedDiagnoses reviewed Hospitalizations - no significant BIPOLAR/SCHIZOPHRENIA/ÓSCAR counseling/therapy once a weekrx by psychiatrist in [place] hasn't met with a prescriber heremodd affect stable no symptoms nowHLDReports she was on a medication but her doctor took it awayThey "never gave it back Would be agreeable to starting againTHYROIDLast labs were normal so her PCP took it awayCurrently her labs are normalShe does not want to restart unless she has lmP7WLDawatz 48u SC JEANINE Lea reports no hospitalizations 2nd to D2AYIzeas opto referral and podiatry referralDenies any wounds [...] apparently last year. She was residing in [place]. She had a number of hospitalizations and there was a tentative plan to place her in long-term care however, her niece and sister intervened and brought her to [place].The patient initially lived with her niece however that did not quite taylor out and she is now living in a studio apartment in [place] with her Sister Nicky. There are pending applications for either a 2 bedroom apartment for the 2 of them to live together or a 1 bedroom for the prospect to live and with the sister living in the same complex. At this point, sister assists her with all necessities. There is a tentative plan for 25.5 hours from [facility] however this has not started or been finalized, per the niece.Community physicians currently: Primary CARE: [phone]:Dr. Torito OrellanaG[facility] [phone]:[facility] Nydia Muhammad[address] [place], [place] [phone] as psychiatrist however, is PhD psychologist, I am not sure who is prescribing psychiatric medicationsTimi Ibrahim, PhDOgden Regional Medical [phone]: Mary Jalloh/[phone]:Dr. [facility] uxctbkyvpfhjs52 [facility]. [phone]:Jaz [address] Streethilda [phone] listedMedications listedPharmacy listedPast medical history and past surgical history listed, apparently had labial cyst or the like in the past and it is recurrent1 of the hospitalizations in [place] has dementia listed as a contributory diagnosis, I am unclear if this is correctRecent hospitalizations:82/-05/23/21: [facility], seemingly psychiatric10/09/21-10/16/21:[facility]-danger to self, schizophrenia, dementia10/18/21-11/13/21: [facility], lactic acidosis, flank pain, shortness of breath, seemingly followed by a psychiatric admission12/02/21-12/17/21 [facility]:Delusions/hallucinations/disorientationPa tient uses a 4 wheeled walker. [...] appears to be at baseline. Noted that [facility] reduced her clonazepam to day, discontinued haloperidol and started amitriptyline. Discussion with SW after meeting, noting that the primary intensive care anaesthetist (cyndi) would like to stop the amitriptyline, given concern for changes in altered mental status.This provider recommended to halve for 7 days and then discontinue. This was relayed by social services coordinator.Safety questions were completed with ppt, denying any SI/HI, notes her depression/anxiety is stable. Feels safe to go home and to follow up on Thursday Related to Bipolar 1 disorder debrox in SE program [id number] as needed canal still patent - ppt concerned and wanted tx Related to Excessive cerumen in left ear canal no edema todaycont e levationre-eval as needed Related to Edema, unspecified type not tremulousness on exammonitor for EPS/tremors given use of psychoactive medsno changes at this timere-eval as needed Related to Tremor levothyoroxine stopp ed in sep 11 nekavitha reported it was dcd by specialisttrend TSH T4 today and re-eval as needed Related to Hypothyroidism, unspecified type no symptomsabd exam benigntaking PPI for GI ppx with good effectre-eval as needed Related to Gastroesophageal reflux disease without esophagitis trulicity 0.75mg Qweek Related t o Long-term current use of injectable noninsulin antidiabetic medication truliticty addedcont inues with humalog and basal insulinself dcd CGM - using POCs at [id number] fasting this [facility] referrals to opto and poda1c and labs t odaytitrate up trulicity if neededeval ongoing Related to Type 2 diabetes mellitus without complication, with long-term current use of insulin lantus and humalog see T2DM Rela quentin to care home current use of insulin cont STATINlipid taylor el today eval ongoing Related to Hypercholesteremia continue norvasc, ze stril, HCTZtrend routine labs and vitalsadjust mgmt as neededvitals checked during SE program and remain stable Related to Hypertension, unspecified type mood affect stablefo llowed by [facility] Counselingcont haldol, depakote and prn klonopineval ongoing Related to Schizophrenia, unspecified type cont counseling and prescribing [facility] mentation and mood at baseline cont current medication regimen (see Bipolar)eval ongoing Related to ÓSCAR (generalized anxiety disorder) mood affect stablefo llowed by [facility] CounselingEKG this week forp Qtc cont haldol, [...] and humalog see T2DM Rela quentin to care home (current) use of insulin a1C 7.0% -> 7.9curre ntly using lantus 48u SC QD and humalog SSiwill add trulicity to be admin @ programtitrate up as neededcont to trend sugars via CGM at [facility] far as periph neuropathy:ppt followed by [...] NADpt will have appt made today at [facility] Counseling by dexter is agreeable to this planshe will continue to come to day program M-Fno changes at this time cont current medication mgmt eval ongoing Related to ÓSCAR (generalized anxiety disorder) not tremulousness on exammonitor for EPS/tremors given use of psychoactive medsno changes at this timere-eval as needed Related to Tremor mood affect stablept has no questions or concerns regarding psych dxfollowed by [facility] Counselingmsg left for info on upcoming appt and name of prescriberEKG pending tomorrow for Haldol use and baseline QTcdepakote lvl wnl @ 50.4cont haldol, depakote and prn klonopineval ongoing Related to ÓSCAR (generalized anxiety disorder) mood affect stablept has no questions or concerns regarding psych dxfollowed by [facility] Counselingmsg left for info on upcoming appt and name of prescriberEKG pending tomorrow for Haldol use and baseline QTcdepakote lvl wnl @ 50.4cont haldol, depakote and prn klonopineval ongoing Related to Schizophrenia, unspecified type 04/25/22TSH 1.94 (wnl) levothyroxine 25mcg QDwill continue to trend labs routinely and adjust mgmt as needed Related to Hypothyroidism, unspecified type mood affect stablept has no questions or concerns regarding psych dxfollowed by [facility] Counselingmsg left for info on upcoming appt and name of prescriberEKG pending tomorrow for Haldol use and baseline QTcdepakote lvl wnl @ 50.4cont haldol, depakote and prn klonopineval ongoing Related to Bipolar 1 disorder chronic dxfollowed b y GYNtakes antiviral for flare upsno pain or lesions at this timeno questions or concernsre-eval as neededfollowup LOGISTICS/SHIPPER consult summary as indicated Related to Genital herpes simplex, unspecified site no symptomsabd exam benigntaking PPI for GI ppx with good effectre-eval as needed Related to Gastroesophageal reflux disease, unspecified whether esophagitis present 04/25/22a1C 7.0%BUN/Cr -- 0.88/74currently using lantus 48u SC QDwill trend CMP and [id number] as needed for hypoglycemiafoot exam with decrease in monofilament examotherwise foot exam wnlwill consult podiatry, optometry eval ongoing Related to care home (current) use of insulin 04/25/22a1C 7.0%BUN/Cr -- 0.88/74currently using lantus 48u SC QDwill trend CMP and p6jQheot as needed for hypoglycemiafoot exam with decrease in monofilament examotherwise foot exam wnlwill consult podiatry, optometry eval ongoing Related to DM type 2 with diabetic peripheral neuropathy 04/25/22AST/ALT 8/10 ( wnl)TChol 238 (elev)HDL 78 [...] Goal Continued Bessie is at risk for snf placement related to schizophrenia and bipolar I d/x . Bessie will continue to live in the community environment with support from [facility] and family for 6 months. Patient Goal Entered in error Bessie is at risk for snf placement related to schizophrenia and bipolar I [...] communication related to language barrier- patient is Turkmen speaking Bessie will continue to function in her current environment, have her medical needs met, and maintain current level of social interactions through next review. Patient Goal Continued
--- NOTE | ~2025-05-23 | XR_ITS ---
CLINICAL HISTORY: pain 1 view abdomen Comparison: None provided Findings: No pneumoperitoneum or pneumatosis. No abnormal calcifications. No acute fractures. IMPRESSION: The bowel gas pattern is within normal limits This document has been electronically signed by: Chris Maurice MD, PHD on 05/23/2025 23:14:17
[2025-05-23 19:23] VITALS: BP 130/82; PULSE 79; RESP 20; TEMP 36.7; O2SAT 97; BMI 29.1
[2025-05-23 19:57] LABS: MANUAL DIFF FLAG NO
[2025-05-23 19:59] LABS: Hematocrit 36.3 % (37.0-47.0); Hemoglobin 12.3 g/dl (12.0-16.0); Imm Gran Abs Auto 0.06 X10*3/uL (0.00-0.03); Imm Gran Pct Auto 0.9 % (0.0-0.4); Lymphocytes Absolute Auto 2.3 X10*3/uL (1.2-4.9); Mean Corpuscular HGB Conc 33.9 g/dl (31.0-35.0); Mean Corpuscular Hemoglobin 28.3 pg (27.0-33.0); Mean Corpuscular Volume 83.4 fL (80.0-98.0); NRBC Abs Auto 0.000 X10*3/uL (0.0-0.012); NRBC Pct Auto 0.0 /100WBC (0.0-0.2); Platelet Count 259 X10*3/uL (160-400); Red Blood Count 4.35 X10*6/uL (4.20-5.50); White Blood Count 7.0 X10*3/uL (4.8-10.8)
[2025-05-23 20:13] LABS: Alanine Aminotransferase < 6 U/L (0-31); Albumin Level 3.6 g/dL (3.5-5.0); Alkaline Phosphatase 72 U/L (39-117); Anion Gap 15 (12-20); Aspartate Amino Transferase 12 U/L (5-31); Blood Urea Nitrogen 11 mg/dL (9-16); Calcium 8.7 mg/dL (8.4-10.2); Carbon Dioxide 28 mmol/L (22-29); Chloride 98 mmol/L (96-108); Creatinine Clr Calc Pharmacy 45.5; Estimated Glomerular Filt Rate 44; Lipase 20 U/L (8-78); Magnesium 1.5 mg/dL (1.6-2.6); Potassium 3.3 mmol/L (3.3-5.1); Sodium 138 mmol/L (135-145); Total Protein 5.9 g/dL (6.5-8.0)
[2025-05-23 20:35] LABS: Resp Syncy Virus RNA Qual PCR NEGATIVE (Negative); SARS COV2 PCR INHOUSE NEGATIVE (Negative)
[2025-05-23 21:13] VITALS: BP 143/62; PULSE 76; RESP 16; TEMP 36.6; O2SAT 97
[2025-05-23 21:21] LABS: Appearance Urine Clear; Glucose Urine UA 250 mg/dL (Negative); PH 6.0 (5.0-9.0); Specific Gravity - Urine 1.010 (1.005-1.025); UMIC TRIGGER UACC YES
--- NOTE | 2025-05-23 21:22 | ED_ITS ---
HPI - General Adult General Chief complaint: Altered Mental Status Stated complaint: lethargy confusion, incontinence, & fever Time Seen by Provider: 05/23/25 20:47 Source: patient and family Limitations: language barrier and other (Schizophrenia) History of Present Illness ED Provider: Alla Pimentel PA-C HPI narrative: 65 y/o F with hx of schizophrenia, pneumonia, bacteremia enterobacter, HLD, hypothyroidism, DM, HTN, GERD presents with behavior outbursts at home. Per the nephew who is at bedside, the patient has been difficult with her VNA. Today, she was smearing feces over the bathroom wall. The nephew was not aware of any new medication changes/adjustments, the patient has been taking her medications as directed. The VNA dispenses her medication to her on a daily basis. The patient is at her baseline mentation per the nephew. Related Data Previous Rx's ?Medication ?Instructions ?Recorded blood-glucose meter (Prodigy #1 ea 02/08/24 Autocode Meter kit) lancets 28 gauge (Prodigy Lancets) #100 ea 02/08/24 walker #1 ea 07/26/24 blood-glucose meter (FreeStyle #1 ea 11/29/24 Lite Meter kit) blood sugar diagnostic (FreeStyle #100 ea 12/20/24 Test strips) adult diapers pull-ups #240 ea 03/27/25 acyclovir 400 mg tablet 400 mg PO TID 30 days #90 ta bs 05/02/25 divalproex 500 mg tablet,extended 1,000 mg (2 x 500 mg ) PO BEDTIME 05/02/25 release 24 hr 90 days #180 tabs dulaglutide 1.5 mg/0.5 mL 1.5 mg (0.5 mL) subcut FR 30 days 05/02/25 subcutaneous pen injector #2 mL (Trulicity) furosemide 40 mg tablet 40 mg PO DAILY 30 days #90 t abs 05/02/25 insulin glargine 100 unit/mL 52 unit (0.52 mL) subcut DAILY 30 05/02/25 subcutaneous solution (Lantus days #15.6 mL U-100 Insulin) lisinopril 20 mg tablet 40 mg (2 x 20 mg) PO DAILY 9 0 days 05/02/25 #180 tabs lorazepam 0.5 mg tablet 0.5 mg PO TID 30 days #90 ta bs 05/02/25 metoprolol succinate 25 mg 25 mg PO DAILY 30 days #30 tabs 05/02/25 tablet,extended release 24 hr omeprazole 20 mg capsule,delayed 20 mg PO DAILY@0630 3 0 days #30 05/02/25 release caps polyethylene glycol 3350 17 gram 17 g PO BID 30 days # 60 ea 05/02/25 oral powder packet risperidone 1 mg tablet 1 mg PO BID 30 days #60 tabs 05/02/25 ropinirole 0.25 mg tablet 1 mg (4 x 0.25 mg) PO BEDTIM E 30 05/02/25 days #120 tabs tolterodine 2 mg capsule,extended 2 mg PO DAILY 90 day s #90 caps 05/02/25 release 24 hr trazodone 50 mg tablet 50 mg PO BEDTIME PRN Insomni a 30 05/02/25 days #30 tabs pen needle, diabetic 32 gauge x #100 ea 05/15/2532 (1st Tier Unifine Pentips) atorvastatin 10 mg tablet 10 mg PO BEDTIME 30 days #30 tabs 05/23/25 sennosides 8.6 mg-docusate sodium 2 tab PO BEDTIME #60 tabs 05/23/25 50 mg tablet (Stimulant Laxative Plus) Allergies Allergy/AdvReac Type Severity Reaction Status Date / Time Penicillins Allergy Intermediate rash/swelli Verified 05/23/25 19:25 ng shellfish derived Allergy Intermediate Swelling, Verified 05/23/25 19:25 Hives Review of Systems 2 Review of Systems: Yes all other systems are reviewed and are negative Constitutional: Constitutional: Denies fatigue and Denies fever(s) ENT: Reports otalgia Cardiovascular: Cardiovascular: Denies chest pain and Denies dyspnea Respiratory: Respiratory: Denies cough and Denies dyspnea Gastrointestinal: Gastrointestinal: Reports abdominal pain Endocrine: Endocrine: Denies fatigue [facility] Past Medical History Attestation statement: The following information was validated with the patient. Medical History (Updated 05/28/25 @ 00:01 by Background Emilie) Class 1 obesity Anxiety Atypical pneumonia Pneumonitis Nausea Abdominal pain Osteoporosis Hypertension History of blood clot in brain Hypercholesteremia HSV-2 (herpes simplex virus 2) infection Arthritis Rheumatic fever Schizophrenia GERD (gastroesophageal reflux disease) Depression HTN (hypertension) Hyperlipemia Diabetes Surgical History Hx of colonoscopy History of tubal ligation History of cystostomy History of 2 sections Family History Family History Sister Age: 64 Osteoarthritis Mother Cancer of lymphatic and hematopoietic tissue, Onset Age: 83 COVID-19 Father FH: heart attack Brother FH: heart attack Other Diabetes HTN (hypertension) Mental health disorder Social History Social History Household Members: None Household Members Other:: sister Housing: Apartment Do you presently have visiting nurse or other home services: Yes ([employer]) Alcohol intake: never Patient Tobacco Use Status: Never used Tobacco e-Cigarette/Vaping Use: Never Used Second Hand Smoke Exposure: No Advance Directives Date on File: 02/08/24 service: No Current occupational status: disabled Sexual orientation: Straight/Heterosexual Gender identity: Female Cognitive needs: Yes (walker) Hearing needs: No Vision needs: Yes (glasses) Physical Exam ED Vital Signs: Vital Signs - 24 hr 05/26/25 14:00 05/26/25 19:55 05/27/25 05:42 Temperature 97.7 F 98.7 F 97.5 F Pulse Rate 76 83 73 Respiratory Rate 16 19 16 Blood Pressure 142/72 H 108/64 120/63 Pulse Oximetry 95 97 99 Oxygen Delivery Method Room Air Room Air Room Air BMI result Body Mass Index 29.1 Const Other: Alert well-appearing Orientation/consciousness: patient oriented x3 HENMT Other: No tragal tenderness bilaterally, I can visualize the right TM it is normal in appearance, there was no erythema in the external ear canal, I can not visualize left TM, there was cerumen within the canal, however again no tragal tenderness unremarkable exam Resp Effort & Inspection: normal respiratory effort Cardio Other: Normal peripheral perfusion GI Other: Soft nontender nondistended no guarding Skin Other: Warm dry no rash Neuro General: patient oriented x3, gait normal, no focal motor deficits and CN's II- XI intact bilaterally Psych Other: Confabulating Course Reevaluation(s) Reevaluation #1: Spoke with Carrie from the care team, they assessed the patient. The patient herself is complaining of bilateral ear pain and belly pain. The nephew never expressed any these concerns. The patient also did not express these concerns to me during my initial interview. I reexamined her, her exam was benign, obtaining a KUB of the abdomen. Furthermore, the care team reached out to the patient's niece, the patient has been exhibiting paranoid behavior, she packed a bag as if she was going to leave, placing ?silverware in the bag?. She will be held over for psychiatric evaluation. Reevaluation #2: Time: 05:40 Date: 05/24/25 Provider: SUZE Mejia Patient in physician observation for psychiatric evaluation.? No acute events reported overnight. No current complaints. VS stable.? Patient is pending CARE team evaluation. Will continue to monitor. Reevaluation #3: Time: 11:06 Date: 05/24/25 Provider: Deo Brasher MD Patient in physician observation for psychiatric evaluation. Patient was seen by the care team and I obtained the following information. The patient has a history of schizophrenia in his has been refusing medications in VNA services. Patient had a recent inpatient admission. Care team requested psych consult to help with disposition.?Will continue to monitor. 12:53 Patient was evaluated by the psychiatric nurse practitioner Earnest Alvares who felt that the patient is not meet inpatient level of care for psychiatric issues. She recommended getting a case management consult to see if the patient can get more home services. Therefore I ordered a case management consult. 05/25/2025 0831 Varsha Molina PA-C ---> Observation continues. Case management continues to follow. Psychiatry has stated the patient is no appropriate for inpatient level of care. Additional Reevaluation(s): 05/26 SUZE Mejía Physician observation continued. Uneventful night. Vital signs stable. No complaints from nursing overnight. Med reconciliation reviewed and done. Pending disposition. Will continue to monitor. 05/27 SUZE Mejía Physician observation continued. Uneventful night. Vital signs stable. No complaints from nursing overnight. Med reconciliation reviewed and done. Pending disposition. Will continue to monitor. Patient will be discharged to [facility] care this morning at 09:00 via ambulance. I agree with this plan. At this time 05/27/2025 @0900 physician observation ended Medications Administered Discontinued Medications Generic Name Dose Route Start Last Admin Trade Name Janice PRN Reason Stop Dose Admin Acyclovir 400 mg 05/24/25 15:00 05/27/25 08:37 Acyclovir 200 Mg Capsule PO 400 mg TID CASANDRA Administration Atorvastatin Calcium 10 mg 05/24/25 21:00 05/26/25 20:21 Atorvastatin Calcium 10 Mg Tablet PO 10 mg BEDTIME CASANDRA Administration Divalproex Sodium 1,000 mg 05/24/25 21:00 05/26/25 21:22 Divalproex Sodium Er 500 Mg Tab.Er.24h PO 1,000 mg BEDTIME CASANDRA Administration Furosemide 40 mg 05/25/25 09:00 05/27/25 08:38 Furosemide 40 Mg Tablet PO 40 mg DAILY CASANDRA Administration Protocol Insulin Glargine 52 unit 05/25/25 09:00 05/27/25 08:38 Insulin Glargine,Hum.Rec.Anlog 100 Unit/Ml 10 Ml Vial SUBCUT 52 unit DAILY CASANDRA Administration Lisinopril 40 mg 05/25/25 09:00 05/27/25 08:37 Lisinopril 40 Mg Tablet PO 40 mg DAILY CASANDRA Administration Protocol Lorazepam 0.5 mg 05/24/25 15:00 05/27/25 08:37 Lorazepam 0.5 Mg Tablet PO 0.5 mg TID CASANDRA Administration Magnesium Oxide 800 mg 05/24/25 00:42 05/24/25 01:02 Magnesium Oxide 400 Mg Tablet PO 05/24/25 00:43 800 mg ONCE ONE Administration Metoprolol Succinate 25 mg 05/25/25 09:00 05/27/25 08:37 Metoprolol Succinate Er 25 Mg Tab.Er.24h PO 25 mg DAILY CASANDRA Administration Protocol Omeprazole 20 mg 05/25/25 06:30 05/27/25 05:37 Omeprazole 20 Mg Capsule.Dr PO 20 mg DAILY@0630 CASANDRA Administration Polyethylene Glycol 17 gm 05/24/25 21:00 05/27/25 08:44 Polyethylene Glycol 3350 17 Gm Powd.Pack PO 17 gm BID CASANDRA Administration Risperidone 1 mg 05/24/25 21:00 05/27/25 08:37 Risperidone 1 Mg Tablet PO 1 mg BID CASANDRA Administration Ropinirole HCl 1 mg 05/24/25 21:00 05/26/25 21:22 Ropinirole Hcl 1 Mg Tablet PO 1 mg BEDTIME CASANDRA Administration Senna/Docusate Sodium 2 tab 05/24/25 21:00 05/26/25 21:22 Sennosides/Docusate Sodium Tablet PO 2 tab BEDTIME CASANDRA Administration Tolterodine Tartrate 2 mg 05/25/25 09:00 05/27/25 08:38 Tolterodine Tartrate La 2 Mg Cap.Er.24h PO 2 mg DAILY CASANDRA Administration Medical Decision Making Medical Decision Making MDM Narrative: 65 y/o F with hx of schizophrenia, pneumonia, bacteremia enterobacter, HLD, hypothyroidism, DM, HTN, GERD presents with behavior outbursts at home. Per the nephew who is at bedside, the patient has been difficult with her VNA. Today, she was smearing feces over the bathroom wall. The nephew was not aware of any new medication changes/adjustments, the patient has been taking her medications as directed. The VNA dispenses her medication to her on a daily basis. The patient is at her baseline mentation per the nephew. Problem: Schizophrenia History: Per patient's family I have considered the following differential diagnoses: SI, HI, decompensated psychiatric illness, drug/alcohol intoxication Plan: It appears the patient is quite decompensated, in addition to screening labs, we will add on ethanol and drug screen. We will be reaching out to the care team. I have independently reviewed the following tests: Labs: No leukocytosis, not anemic, no electrolyte abnormality, magnesium subtly low at 1.5, we will give oral magnesium, urine not infected, U tox negative, ethanol negative KUB:indings: No pneumoperitoneum or pneumatosis. No abnormal calcifications. No acute fractures. IMPRESSION: The bowel gas pattern is within normal limits Lab Data 05/23/25 19:44 05/23/25 19:44 Labs: Lab Results 05/23/25 05/23/25 05/24/25 Range/Units 19:44 21:13 10:39 WBC 7.0 (4.8-10.8) X10*3/uL RBC 4.35 (4.20-5.50) X10*6/uL Hgb 12.3 (12.0-16.0) g/dl Hct 36.3 L (37.0-47.0) % MCV 83.4 (80.0-98.0) fL MCH 28.3 (27.0-33.0) pg MCHC 33.9 (31.0-35.0) g/dl RDW 15.9 (11.0-16.0) % Plt Count 259 D (160-400) X10*3/uL MPV 10.4 (9.4-12.3) fL Immature Gran % (Auto) 0.9 H (0.0-0.4) % Neut % (Auto) 55.0 (45-73) % Lymph % (Auto) 32.3 (20-40) % [place] % (Auto) 10.8 (2-11) % Eos % (Auto) 0.6 (0-4) % Baso % (Auto) 0.4 (0-2) % Lymph # (Auto) 2.3 (1.2-4.9) X10*3/uL [place] # (Auto) 0.8 (0.1-1.2) X10*3/uL Eos # (Auto) 0.0 (0.0-0.4) X10*3/uL Baso # (Auto) 0.0 (0.0-0.2) X10*3/uL Abs Immat Gran (auto) 0.06 H (0.00-0.03) X10*3/uL Absolute Neuts (auto) 3.9 (2.0-8.3) x10*3/uL Absolute Nucleated RBC 0.000 (0.0-0.012) X10*3/uL Nucleated RBC % (auto) 0.0 (0.0-0.2) /100WBC Sodium 138 (135-145) mmol/L Potassium 3.3 D (3.3-5.1) mmol/L Chloride 98 (96-108) mmol/L Carbon Dioxide 28 (22-29) mmol/L Anion Gap 15 (12-20) BUN 11 (9-16) mg/dL Creatinine 1.22 (0.5-1.4) mg/dL Estim Creat Clear Calc 45.5 Estimated GFR 44 POC Glucose (60-115) mg/dL Random Glucose 334 H (60-115) mg/dL Calcium 8.7 (8.4-10.2) mg/dL Magnesium 1.5 L (1.6-2.6) mg/dL Total Bilirubin 0.2 (0.0-1.0) mg/dL AST 12 (5-31) U/L ALT < 6 (0-31) U/L Alkaline Phosphatase 72 (39-117) U/L Ammonia 30 (13-55) umol/L Total Protein 5.9 L (6.5-8.0) g/dL Albumin 3.6 (3.5-5.0) g/dL Lipase 20 (8-78) U/L Urine Color Yellow Urine Appearance Clear Urine pH 6.0 (5.0-9.0) Ur Specific [place] 1.010 (1.005-1.025) Urine Protein Negative (Neg-Trace) mg/dL Urine Glucose (UA) 250 H (Negative) mg/dL Urine Ketones Negative (Negative) mg/dL Urine Blood Negative (Negative) Urine Nitrite Negative (Negative) Ur Leukocyte Esterase Trace H (Negative) Urine RBC 0-2 (0-2) /HPF Urine WBC 0-5 (0-5) /HPF Ur Squamous Epith Cells 0-2 (0-2) /HPF Urine Bacteria None Seen (None Seen) Hyaline Casts 0-2 (0-2) /LPF Urine Opiates Screen Not Detected (Not Detect) Ur Buprenorphine Scrn Not Detected (Not Detect) ng/mL Ur Oxycodone Screen Not Detected (Not Detect) ng/mL Urine Methadone Screen Not Detected (Not Detect) ng/mL Urine Fentanyl Screen Not Detected (Not Detect) Ur Barbiturates Screen Not Detected (Not Detect) Valproic Acid 41.4 L (50.0-100.0) mcg/mL Ur Phencyclidine Scrn Not Detected (Not Detect) Ur Amphetamines Screen Not Detected (Not Detect) U Benzodiazepines Scrn Not Detected (Not Detect) Urine Cocaine Screen Not Detected (Not Detect) U Marijuana (THC) Screen Not Detected (Not Detect) Ethyl Alcohol 11 mg/dL Influenza Type A (PCR) NEGATIVE (Negative) Influenza Type B (PCR) NEGATIVE (Negative) RSV RNA Qual (PCR) NEGATIVE (Negative) SARS-CoV-2 RNA (RT-PCR) NEGATIVE (Negative) 05/25/25 Range/Units 07:50 WBC (4.8-10.8) X10*3/uL RBC (4.20-5.50) X10*6/uL Hgb (12.0-16.0) g/dl Hct (37.0-47.0) % MCV (80.0-98.0) fL MCH (27.0-33.0) pg MCHC (31.0-35.0) g/dl RDW (11.0-16.0) % Plt Count (160-400) X10*3/uL MPV (9.4-12.3) fL Immature Gran % (Auto) (0.0-0.4) % Neut % (Auto) (45-73) % Lymph % (Auto) (20-40) % [place] % (Auto) (2-11) % Eos % (Auto) (0-4) % Baso % (Auto) (0-2) % Lymph # (Auto) (1.2-4.9) X10*3/uL [place] # (Auto) (0.1-1.2) X10*3/uL Eos # (Auto) (0.0-0.4) X10*3/uL Baso # (Auto) (0.0-0.2) X10*3/uL Abs Immat Gran (auto) (0.00-0.03) X10*3/uL Absolute Neuts (auto) (2.0-8.3) x10*3/uL Absolute Nucleated RBC (0.0-0.012) X10*3/uL Nucleated RBC % (auto) (0.0-0.2) /100WBC Sodium (135-145) mmol/L Potassium (3.3-5.1) mmol/L Chloride (96-108) mmol/L Carbon Dioxide (22-29) mmol/L Anion Gap (12-20) BUN (9-16) mg/dL Creatinine (0.5-1.4) mg/dL Estim Creat Clear Calc Estimated GFR POC Glucose 272 H (60-115) mg/dL Random Glucose (60-115) mg/dL Calcium (8.4-10.2) mg/dL Magnesium (1.6-2.6) mg/dL Total Bilirubin (0.0-1.0) mg/dL AST (5-31) U/L ALT (0-31) U/L Alkaline Phosphatase (39-117) U/L Ammonia (13-55) umol/L Total Protein (6.5-8.0) g/dL Albumin (3.5-5.0) g/dL Lipase (8-78) U/L Urine Color Urine Appearance Urine pH (5.0-9.0) Ur Specific [place] (1.005-1.025) Urine Protein (Neg-Trace) mg/dL Urine Glucose (UA) (Negative) mg/dL Urine Ketones (Negative) mg/dL Urine Blood (Negative) Urine Nitrite (Negative) Ur Leukocyte Esterase (Negative) Urine RBC (0-2) /HPF Urine WBC (0-5) /HPF Ur Squamous Epith Cells (0-2) /HPF Urine Bacteria (None Seen) Hyaline Casts (0-2) /LPF Urine Opiates Screen (Not Detect) Ur Buprenorphine Scrn (Not Detect) ng/mL Ur Oxycodone Screen (Not Detect) ng/mL Urine Methadone Screen (Not Detect) ng/mL Urine Fentanyl Screen (Not Detect) Ur Barbiturates Screen (Not Detect) Valproic Acid (50.0-100.0) mcg/mL Ur Phencyclidine Scrn (Not Detect) Ur Amphetamines Screen (Not Detect) U Benzodiazepines Scrn (Not Detect) Urine Cocaine Screen (Not Detect) U Marijuana (THC) Screen (Not Detect) Ethyl Alcohol mg/dL Influenza Type A (PCR) (Negative) Influenza Type B (PCR) (Negative) RSV RNA Qual (PCR) (Negative) SARS-CoV-2 RNA (RT-PCR) (Negative) Discharge Plan Discharge Clinical Impression: Agitation, Dementia Schizophrenia Qualifiers: Schizophrenia type: paranoid schizophrenia Qualified Code(s): F20.0 - Paranoid schizophrenia Patient Disposition: Xfer Inpatient Rehab Fac Transfer Details: TO: [address], [phone] Additional Instructions: Take your medications as prescribed. If you were prescribed antibiotics today, it is important that you take your medication to their entirety, do not skip any doses, do not finish them early. Follow-up with your primary care provider this week. Return to the emergency department with new or worsening symptoms. Such as fevers, chills, chest pain, shortness of breath, nausea, vomiting, dizziness, headache, vision changes, lethargy In case of emergency call 911 Prescriptions: No Action (DME) walker Misc See Rx Instructions .Route Qty: 1 0RF Rx Instructions: As directed (DME) blood-glucose meter [FreeStyle Lite Meter] Kit See Rx Instructions .Route Qty: 1 0RF Rx Instructions: As directed (DME) FreeStyle Test Strip See Rx Instructions .Route Qty: 100 6RF Rx Instructions: As directed three times a day (DME) adult diapers pull-ups XL See Rx Instructions .Route .MEDSUPPLY Qty: 240 11RF Rx Instructions: As directed (DME) pen needle, diabetic [1st Tier Unifine Pentips] 32 gauge x 5/32 needle See Rx Instructions .Route Qty: 100 0RF Rx Instructions: Use 1 pen needle three times a day sennosides-docusate sodium [Stimulant Laxative Plus] 8.6-50 mg tablet 2 tab PO BEDTIME Qty: 60 0RF atorvastatin 10 mg tablet 10 mg PO BEDTIME 30 Days Qty: 30 0RF trazodone 50 mg Tablet 50 mg PO BEDTIME PRN (Reason: Insomnia) 30 Days Qty: 30 0RF polyethylene glycol 3350 17 gram Powder In Packet 17 g PO BID 30 Days Qty: 60 0RF risperidone 1 mg Tablet 1 mg PO BID 30 Days Qty: 60 0RF insulin glargine [Lantus U-100 Insulin] 100 unit/mL Solution 52 unit subcut DAILY 30 Days Qty: 15.6 0RF tolterodine 2 mg capsule,extended release 24hr 2 mg PO DAILY 90 Days Qty: 90 1RF furosemide 40 mg tablet 40 mg PO DAILY 30 Days Qty: 90 3RF lisinopril 20 mg tablet 40 mg PO DAILY 90 Days Qty: 180 0RF acyclovir 400 mg tablet 400 mg PO TID 30 Days Qty: 90 0RF ropinirole 0.25 mg tablet 1 mg PO BEDTIME 30 Days Qty: 120 0RF divalproex 500 mg tablet extended release 24 hr 1,000 mg PO BEDTIME 90 Days Qty: 180 0RF omeprazole 20 mg capsule,delayed release(DR/EC) 20 mg PO DAILY@0630 30 Days Qty: 30 0RF metoprolol succinate 25 mg tablet extended release 24 hr 25 mg PO DAILY 30 Days Qty: 30 5RF Rx Instructions: Stop amlodipine Start metoprolol Trulicity 1.5 mg/0.5 mL pen injector 1.5 mg subcut FR 30 Days Qty: 2 0RF lorazepam 0.5 mg tablet 0.5 mg PO TID 30 Days Qty: 90 0RF (DME) blood-glucose meter [Kanmu Autocode Meter] Kit See Rx Instructions .Route Qty: 1 0RF Rx Instructions: As directed (DME) lancets [Prodigy Lancets] 28 gauge misc See Rx Instructions .Route Qty: 100 11RF Rx Instructions: Use 1 lancet four times a day Referrals: Yelena Lenz Allen [Outside] Evelia Sweet MD [Primary Care Provider, Internal Medicine] Interventions: ED Discharge Assessment Last Done: 05/27/25 09:06 Discharge Date/Time: 05/27/25 09:10 Print Language: Emirati
--- NOTE | 2025-05-23 21:24 | PC.NURSE ---
pt ambulatory with steady gait to bathroom using walker able to provide urine sample, no straight cath needed. pt is calm/cooperative, nephew at bedside. per PA pt will need CARE/Psych eval but does not require a 1:1 sitter at this time. pt resting comfortably, nad.
[2025-05-23 21:30] LABS: Cannabinoid Screen Urine Not Detected (Not Detect)
--- OUTSIDE RECORDS SUMMARY | 2025-05-23 21:44 | XMS_ITS | Clinical Summary ---
Author Organization [address] [facility] Address [address] [place] [address] Phone Care Team Providers Care Licensed Vocational Nurse Name Role Phone Evelia Donald MD Primary Care Provider [phone] Allergies Active Allergy Reactions Criticality Noted Date [...] 10/04/2021 Long-term use of high-risk medication 10/04/2021 skilled nursing current use of insulin ([facility], [facility] V28) 10/04/2021 Lactic acidosis 10/04/2021 Right-sided chest wall pain 10/04/2021 Recurrent falls 10/04/2021 Pyelonephritis 10/04/2021 Obesity 10/04/2021 Sarcoidosis 10/04/2021 Schizoaffective disorder, de pressive type with good prognostic features ([facility] V24, [facility] V28) 10/04/2021 Sinusitis 10/04/2021 Encounter for immunization 10/04/2021 Tremor 10/04/2021 Altered mental state 08/17/2021 Abdominal pain 08/17/2021 DM type 2 (diabetes mellitus , type 2) ([facility] V24, [facility] V28) 05/21/2021 Overview (10/04/2021): x 15 years Necrotizing soft tissue infection 05/18/2021 Sacroiliac pain 11/28/2020 Lumbar facet arthropathy 08/29/2020 DDD (degenerative disc disease), lumbosacral Gastritis 09/28/2018 Acute psychosis ([facility] V24, [facility] V28) 04/23 Anxiety 04/23/2015 Impetigo 04/23/2015 Esotropia of left eye 06/04/2011 Rotary nystagmus 06/04/2011 Strabismic amblyopia 06/04/2011 Hyperthyroidism 02/19/2011 Mixed hyperlipidemia 02/19/2011 Primary open-angle glaucoma(365.11) 08/22/2010 Overview (12/20/2021): Replacing diagnoses that were inactivated after the 12/20/21 IMO import Senile nuclear sclerosis 08/22/2010 Encounters Date Type Department Care Team Description 04/04/2025 12:53 PM EDT - 04/04/2025 10:31 PM EDT Emergency [facility] Emergency [address] [place] [address] Sadiq Moran MD Mersier, Jasmine, DO Abdominal pain, unspecified abdominal location (Primary Dx); Weakness Discharge Disposition: Home or Self Care from Last 3 Months Immunizations Name Administration [...] Medical History Medical History Date Comments Schizophrenia ([facility], [facility] V28) Diabetes mellitus ([facility], [facility] V28) Disease of thyroid gland Depression Insomnia Anxiety DDD (degenerative disc disease), cervical Psychosis ([facility], [facility] V28) High blood cholesterol level Social History [...] Mass Index 32.91 04/04/2025 1:29 PM EDT Plan of Treatment Health Maintenance Due Date Last Done Comments Diabetes: Annual Foot Exam 1969 Diabetes: Annual Retina Eye Exam 1969 DTaP,Tdap,and Td Vaccines (1 - Tdap) 1978 Pneumococcal Vaccine: 50+ Years (1 of 2 - PCV) 1978 Zoster Vaccines (1 of 2) 2009 RSV Immunization Adult Patients (1 - Risk 60-74 years 1-dose series) 2019 Cholesterol Screening (Lipid Panel) 10/06/2019 07/28/2012 Hepatitis C Screening 10/06/2019 Medicare Annual Wellness Visit 10/06/2019 Osteoporosis Screening (Bone Density Screening) 10/06/2019 Social Influencers of Health Screening 10/06/2019 Diabetes: Annual Urine Albumin-Creatinine Ratio (uACR) 08/17/2021 11/19/2010 Diabetes: Blood Sugar Control Test (HGBA1C) 04/20/2022 10/21/2021, 10/21/2021, 05/21/2021, Additional history exists Breast Cancer Screening 08/21/2022 08/21/20 20, 03/22/2018, 12/22/2016, Additional history exists Falls Risk Assessment 01/08/2024 COVID-19 Vaccine ( season) 2024 06/12/2021, 12/24/2020 Depression Screening 09/21/2024 Influenza Vaccine (#1) 2025 , 06/24/2021, 07/18/2020, Additional history exists Colorectal Cancer Screening: Colonoscopy 10/30/2025 10/30/2015, 06/11/2015 Diabetes: Annual GFR (Glomerular Filtration Rate) 04/04/2026 04/04/2025, 11/12/2021, 11/09/2021, Additional history exists Hypertension/CHF/CAD Annual BMP Blood Test 04/04/2026 04/04/2025, 11/12/2021, 11/09/2021, Additional history exists HIB Vaccines Aged Out [...] BLOOD Routine 04/04/2025 2: 03 PM EDT LIPASE STAT Add-on 04/04/2025 1:26 PM EDT HEPATIC FUNCTION PANEL STAT Add-on 04/04/2025 1:26 PM EDT CBC WITH AUTO DIFFERENTIAL STAT 04/04/2025 1:26 PM EDT BASIC METABOLIC PANEL STAT 04/04/2025 1:26 PM EDT CBC AND DIFFERENTIAL STAT 04/04/2025 1:26 PM EDT POCT GLUCOSE BLOOD Routine 04/04/2025 1: 25 PM EDT [place] MAMMO DIGITAL SCREENING BILAT (NB) Routine 08/21/2020 10:11 AM EST from Last 3 Months or Most Recently Relevant to Health Maintenance Results * (ABNORMAL) POCT Glucose, blood (04/04/2025 8:58 PM EDT) Only the most recent of3 resultswithin the time period is included. [facility] Glucose POCT 131(H) 70 - 100 mg/dL 04/04/2025 8:59 PM EDT [facility] Blood Capillary blood specimen / Unknown 04/04/2025 8:58 PM EDT 04/04/2025 9:00 PM EDT Jonelle Traeanupama DO LAB POINT OF CARE TE ST DOCKED DEVICE UNSOLICITED RESULTS Final Result [facility] [address] [place] [address], [place] [phone] * (ABNORMAL) Urinalysis with reflex microscopic (04/04/2025 6:25 PM EDT) [facility] Specific [place] Urine >1.045(H) 1.003 - 1.030 LAB URINALYSIS - AUTOMATED METHOD 04/04/2025 6:55 PM [facility] pH, Urine 6.5 5.0 - 8.0 pH LAB URINALYSIS - AUTOMATED METHOD 04/04/2025 6:55 PM [facility] Leukocytes, Urine Negative Negative LAB URINALYSIS - AUTOMATED METHOD 04/04/2025 6:55 PM [facility] Nitrite, Urine Negative Negative LAB URINALYSIS - AUTOMATED METHOD 04/04/2025 6:55 PM [facility] Protein, Urine Negative <=Trace mg/dL LAB URINALYSIS - AUTOMATED METHOD 04/04/2025 6:55 PM [facility] Glucose, Urine 100(A) Negative mg/dL LAB URINALYSIS - AUTOMATED METHOD 04/04/2025 6:55 PM [facility] Ketones, Urine 40(A) Negative mg/dL LAB URINALYSIS - AUTOMATED METHOD 04/04/2025 6:55 PM [facility] Urobilinogen , Urine 0.2 0.2 - 1.0 mg/dL LAB URINALYSIS - AUTOMATED METHOD 04/04/2025 6:55 PM EDT [facility] Bilirubin, Urine Negative Negative LAB URINALYSIS - AUTOMATED METHOD 04/04/2025 6:55 PM EDT [facility] Blood, Urine Negative Negative LAB URINALYSIS - AUTOMATED METHOD 04/04/2025 6:55 PM EDT [facility] Urine Urine specimen obtained by clean catch procedure / Unknown Non-blood Collection / Unknown 04/04/2025 6:25 PM EDT 04/04/2025 6:49 PM EDT Sadiq Moran MD LAB URINE ORDERABLES Final Result [facility] [address] [place] [address], [place] [phone] * Lactate, with reflex (04/04/2025 5:34 PM EDT) Pathologist [facility] LACTIC ACID 1.1 0.4 - 2.0 mmol/L LAB CHEMISTRY METHOD 04/04/2025 6:13 PM EDT [facility] Blood Venous blood specimen / Unknown Venipuncture / Unknown 04/04/2025 5:34 PM EDT 04/04/2025 5:36 PM EDT Sadiq Moran MD LAB BLOOD ORDERABLES Final Result [facility] [address] [place] [address], [place] [phone] * CT Abdomen Pelvis w Contrast (04/04/2025 [...] Signed Date: 04/04/2025 16:11 ET Workstation ID: [id number] Transcribed By: Self Edit Transcribed Date: 04/04/2025 [...] Signed Date: 04/04/2025 16:11 ET Workstation ID: [id number] Transcribed By: Self Edit Transcribed Date: 04/04/2025 16:07 ET us Sadiq Moran MD IMG CT PROCEDURES Final Res ult * (ABNORMAL) CBC auto differential (04/04/2025 1:26 PM EDT) WBC 11.8(H) 4.8 - 10.8 K/mcL LAB HEMETOLOGY METHOD 04/04/2025 1:56 PM EDT [facility] RBC 5.10(H) 3.80 - 4.80 M/mcL LAB HEMETOLOGY METHOD 04/04/2025 1:56 PM EDT [facility] Hemoglobin 13.9 11.5 - 16.0 g/dL LAB HEMETOLOGY METHOD 04/04/2025 1:56 PM EDT [facility] Hematocrit 43.1 35.0 - 47.0 % LAB HEMETOLOGY METHOD 04/04/2025 1:56 PM EDT [facility] MCV 85.2 79.0 - 98.0 FL LAB HEMETOLOGY METHOD 04/04/2025 1:56 PM EDT [facility] MCH 27.5 27.0 - 32.0 pcg LAB HEMETOLOGY METHOD 04/04/2025 1:56 PM EDT [facility] MCHC 32.3 32.0 - 37.0 g/dL LAB HEMETOLOGY METHOD 04/04/2025 1:56 PM EDT [facility] RDW 14.6 11.0 - 15.0 % LAB HEMETOLOGY METHOD 04/04/2025 1:[facility] Plate[facility] 442(H) 130 - 400 K/mcL LAB HEMETOLOGY METHOD 04/04/2025 1:56 PM [facility] MPV 9.8 7.0 - 11.0 FL LAB HEMETOLOGY METHOD 04/04/2025 1:56 PM [facility] NRBC 0.0 <1.0 % LAB HEMETOLOGY METHOD 04/04/2025 1:56 PM [facility] NRBC Absolute 0.00 <0.10 K/mcL LAB HEMETOLOGY METHOD 04/04/2025 1:56 PM [facility] Neutrophils Relative 63.1 % LAB HEMETOLOGY METHOD 04/04/2025 1:56 PM [facility] Lymphocytes Relative 27.7 % LAB HEMETOLOGY METHOD 04/04/2025 1:56 PM [facility] Monocytes Relative 8.1 % LAB HEMETOLOGY METHOD 04/04/2025 1:56 PM [facility] Eosinophils Relative 0.5 % LAB HEMETOLOGY METHOD 04/04/2025 1:56 PM [facility] Basophils Relative 0.1 % LAB HEMETOLOGY METHOD 04/04/2025 1:56 PM [facility] Immature Granulocytes Relative 0.5 % LAB HEMETOLOGY METHOD 04/04/2025 1:56 PM [facility] Neutrophils Absolute 7.41(H) 1.50 - 7.00 K/mcL LAB HEMETOLOGY METHOD 04/04/2025 1:56 PM [facility] Lymphocytes Absolute 3.26 1.00 - 5.00 K/mcL LAB HEMETOLOGY METHOD 04/04/2025 1:56 PM EDT [facility] Monocytes Absolute 0.95 0.20 - 1.00 K/mcL LAB HEMETOLOGY METHOD 04/04/2025 1:56 PM EDT [facility] Eosinophils Absolute 0.06 0.00 - 0.50 K/[facility] LAB HEMETOLOGY METHOD 04/04/2025 1:56 PM EDT [facility] Basophils Absolute 0.01 0.00 - 0.20 K/[facility] LAB HEMETOLOGY METHOD 04/04/2025 1:56 PM EDT [facility] Immature Granulocytes Absolute 0.06(H) 0.00 - 0.03 K/[facility] LAB HEMETOLOGY METHOD 04/04/2025 1:56 PM EDT [facility] Blood Venous blood specimen / Unknown Venipuncture / Unknown 04/04/2025 1:26 PM EDT 04/04/2025 1:49 PM EDT Sadiq Moran MD LAB BLOOD ORDERABLES Final Result Performing Organization Address [facility]/ZIP Co de Phone Number [facility] [address] [place] [address], * Lipase (04/04/2025 1:26 PM EDT) Lipase 29 13 - 75 unit/L LAB CHEMISTRY METHOD 04/04/2025 3:51 PM EDT [facility] Blood Venous blood specimen / Unknown Venipuncture / Unknown 04/04/2025 1:26 PM EDT 04/04/2025 1:49 PM EDT Sadiq Moran MD LAB BLOOD ORDERABLES Final Result [facility] [address] [place] [address], [place] [phone] * (ABNORMAL) Hepatic function panel (04/04/2025 1:26 PM EDT) Total Protein 5.6(L) 6.0 - 8.0 g/dL LAB CHEMISTRY METHOD 04/04/2025 5:14 PM EDT [facility] Albumin 2.6(L) 3.2 - 5.0 g/dL LAB CHEMISTRY METHOD 04/04/2025 5:14 PM EDT [facility] Total Bilirubin 0.6 0.0 - 1.4 mg/dL LAB CHEMISTRY METHOD 04/04/2025 5:14 PM [facility] Bilirubin, Direct 0.2 0.0 - 0.3 mg/dL LAB CHEMISTRY METHOD 04/04/2025 5:14 PM T [facility] Bilirubin, Indirect 0.4 0.0 - 1.1 mg/dL LAB CHEMISTRY METHOD 04/04/2025 5:14 PM EDT [facility] ALT (SGPT) 15 10 - 60 unit/L LAB CHEMISTRY METHOD 04/04/2025 5:14 PM [facility] AST (SGOT) 9(L) 10 - 42 unit/L LAB CHEMISTRY METHOD 04/04/2025 5:14 PM [facility] Alkaline Phosphatase 90 42 - 121 unit/L LAB CHEMISTRY METHOD 04/04/2025 5:14 PM T [facility] Blood Venous blood specimen / Unknown Venipuncture / Unknown 04/04/2025 1:26 PM EDT 04/04/2025 1:49 PM EDT Sadiq Moran MD LAB BLOOD ORDERABLES Final Result [facility] [address] [place] [address], [place] [phone] * (ABNORMAL) Basic metabolic panel (04/04/2025 1:26 PM EDT) Sodium 136 133 - 145 mmol/L LAB CHEMISTRY METHOD 04/04/2025 2:18 PM [facility] Potassium 4.5 3.5 - 5.5 mmol/L LAB CHEMISTRY METHOD 04/04/2025 2:18 PM [facility] Chloride 101 96 - 110 mmol/L LAB CHEMISTRY METHOD 04/04/2025 2:18 PM [facility] CO2 24 21 - 32 mmol/L LAB CHEMISTRY METHOD 04/04/2025 2:18 PM [facility] Anion Gap 11 3 - 11 LAB CHEMISTRY METHOD 04/04/2025 2:18 PM [facility] Glucose 60(L) 70 - 100 mg/dL LAB CHEMISTRY METHOD 04/04/2025 2:18 PM [facility] BUN 22 5 - 25 mg/dL LAB CHEMISTRY METHOD 04/04/2025 2:18 PM [facility] Creatinine 0.75 0.50 - 1.10 mg/dL LAB CHEMISTRY METHOD 04/04/2025 2:18 PM [facility] eGFR 88 >=60 mL/min/1. 73m2 LAB CHEMISTRY METHOD 04/04/2025 2:18 PM [facility] Comment:Calculation based on the Chronic Kidney Disease Epidemiology Collaboration (CKD-EPI) equation refit without adjustment for race. BUN/Creatinine Ratio 29.3 LAB CHEMISTRY METHOD 04/04/2025 2:18 PM [facility] Calcium 8.9 8.5 - 10.5 mg/dL LAB CHEMISTRY METHOD 04/04/2025 2:18 PM [facility] Blood Venous blood specimen / Unknown Venipuncture / Unknown 04/04/2025 1:26 PM EDT 04/04/2025 1:49 PM EDT us Sadiq Moran MD LAB BLOOD ORDERABLES Final Result [facility] [address] [place] [address], * OTIS MAMMO DIGITAL SCREENING BILAT (NB) [...] mammography views were obtained. Computer-aided detection utilizing R2CAD reader has been performed. BREAST COMPOSITION: There are scattered areas of fibroglandular density FINDINGS: There are no suspicious abnormalities. There has been no significant interval change. IMPRESSION: No mammographic evidence for malignancy. BI-RADS Code: 1-Negative RECOMMENDATION: 1. Screening Mammogram in 1 year COMMENTS: Results of this examination will be immediately mailed to the patient. Ricardo Rodriguez thanks you for the opportunity [...] Most Recently Relevant to Health Maintenance Insurance [facility] MEDIC[facility] Member Subscriber Plan / Payer (Ef fective 2024-Present) Name:Bessie Villarreal Relation to Subscriber:Self Name:Bessie Villarreal Payer ID:[id number] Group ID:[id number] Type:Not on file Address: [place] [address] [place] [address] [place]ives * Full Code - Default [...] discontinue any currently active code status orders. Healthcare Agents on File Name Relationship Healthcare Agent [facility] Communication Criss Robi Relative Health Care Agent Care Teams Licensed Vocational Nurse Relationship Specialty Start Date End Date Evelia Donald MD [address] [place] [address] , [address] [facility] PCP - General Internal Medicine 08/30/24
[2025-05-24 03:00] VITALS: BP 141/70; PULSE 69; RESP 18; O2SAT 96
[2025-05-24 05:58] VITALS: BP 148/80; PULSE 75; RESP 20; TEMP 36.6; O2SAT 96
--- NOTE | 2025-05-24 07:11 | PC.NURSE ---
This RN assumed care of patient @ 0700 German Speaking Patient resting in bed comfortably Patient changed over No IV access Patient awaiting psych consult
[2025-05-24 10:54] LABS: Ammonia 30 umol/L (13-55)
--- NOTE | 2025-05-24 12:44 | MHC.CARE ---
Pt seen by hospital psychiatry team and pt does not meet inpatient level of care. See psychiatry note for recommendations.
--- NOTE | 2025-05-24 12:48 | PM.PSYCN ---
History of Present Illness Date of Service: 05/24/25 Chief Complaint: lethargy confusion, incontinence, & fever Requesting physician: Deo Brasher Discussed with referring provider: Yes Sources of Information: patient interviewed, chart reviewed and crisis/core team assessment reviewed HPI Narrative: Per ED provider note: patient is 65 y/o F with hx of schizophrenia, pneumonia, bacteremia enterobacter, HLD, hypothyroidism, DM, HTN, GERD presents with behavior outbursts at home. Per the nephew who is at bedside, the patient has been difficult with her VNA. Today, she was smearing feces over the bathroom wall. The nephew was not aware of any new medication changes/adjustments, the patient has been taking her medications as directed. The VNA dispenses her medication to her on a daily basis. The patient is at her baseline mentation per the nephew. Meet with patient in ED #9 with the presence of Wash Plant Operator: patient does not know reason for ED visit. She is alert and oriented to her , current year but not the month or the day of the week. She reports that she fell in the bathroom a couple days ago but denies hitting her head. Report that she has not sleeping well I do not sleep but reported that she slept well last night. Report poor appetite. Report food is available but she has poor appetite I barely eat nothing . She told this provider that test was done/xray was done yesterday not no one informed her regarding result. Review lab result with patient. Also encourage patient to eat and hydrate herself as she has hx of not eating right [facility]. She reports that she has been compliant wi meds and that the nurse came in to offer her meds. She does not want to go back to [facility]. She expressed that she wants to go home. Denies anxiety/ depression. Denies paranoid. Denies AVH. Do not appear to be psychotic/paranoid or do not making any delusional statement. Case also discussed with previous provider- Bette Duenas who was taking care of patient back in April. Patient at baseline as some cognitive declined. Per record, patient scored 8/10 on MoCCA last month. Need ADL's office clerk assistant. Patient does not appear to be confused and appear to be at baseline. Case discussed with Dr Brasher and Care team notified that patient does not meet criteria for IPLOC admission. Dr. Brasher will place an order/referral to case management. Past Psychiatric History: Inpt: hx of inpt admission in [place] prior to coming to [facility] in 2021. 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 OP: Anahy Kelley NP [facility] (currently only two medications he is prescribing for her are low dose amitriptyline 10mg po qhs and ropinirole). Past med trials: haldol, depakote, clonazepam No acute medical conditions. lab work unremarkable. Review of Systems Review of Systems No SOB. No breathing issues. No N/V. Denies abdominal pain. Patient supposed to use walker when ambulating. Not observed during assessment as patient is in hospital bed. [facility] Medical History (Updated 05/24/25 @ 15:52 by Rachel Alvares NP) Class 1 obesity Anxiety Atypical pneumonia Pneumonitis Nausea Abdominal pain Osteoporosis Hypertension History of blood clot in brain Hypercholesteremia HSV-2 (herpes simplex virus 2) infection Arthritis Rheumatic fever Schizophrenia GERD (gastroesophageal reflux disease) Depression HTN (hypertension) Hyperlipemia Diabetes Surgical History Hx of colonoscopy History of tubal ligation History of cystostomy History of 2 sections Family History: sister - panic disorder Social History: highest completed grade is 4th. spent her entire life in [place] until moving to [place] to live with her son in 2008. She moved to [facility] back in 2021 to be with her sister. she denies she has any income. she is living with her sister. Substance History: Not discuss Trauma History: denies Diagnostics Vital Signs (24Hr): Vital Signs - 24 hr 05/23/25 19:23 05/23/25 21:13 05/24/25 03:00 Temperature 98.1 F 97.8 F Pulse Rate 79 76 69 Respiratory Rate 20 16 18 Blood Pressure 130/82 143/62 H 141/70 H Pulse Oximetry 97 97 96 Oxygen Delivery Method Room Air Room Air Room Air 05/24/25 05:58 Temperature 97.8 F Pulse Rate 75 Respiratory Rate 20 Blood Pressure 148/80 H Pulse Oximetry 96 Oxygen Delivery Method Room Air BMI result Body Mass Index 29.1 Labs 05/23/25 19:44 05/23/25 19:44 Labs: Laboratory Results - last 48 hr 05/23/25 05/23/25 05/24/25 19:44 21:13 10:39 WBC 7.0 RBC 4.35 Hgb 12.3 Hct 36.3 L MCV 83.4 MCH 28.3 MCHC 33.9 RDW 15.9 Plt Count 259 D MPV 10.4 Immature Gran % (Auto) 0.9 H Neut % (Auto) 55.0 Lymph % (Auto) 32.3 [place] % (Auto) 10.8 Eos % (Auto) 0.6 Baso % (Auto) 0.4 Lymph # (Auto) 2.3 [place] # (Auto) 0.8 Eos # (Auto) 0.0 Baso # (Auto) 0.0 Abs Immat Gran (auto) 0.06 H Absolute Neuts (auto) 3.9 Absolute Nucleated RBC 0.000 Nucleated RBC % (auto) 0.0 Sodium 138 Potassium 3.3 D Chloride 98 Carbon Dioxide 28 Anion Gap 15 BUN 11 Creatinine 1.22 Estim Creat Clear Calc 45.5 Estimated GFR 44 Random Glucose 334 H Calcium 8.7 Magnesium 1.5 L Total Bilirubin 0.2 AST 12 ALT < 6 Alkaline Phosphatase 72 Ammonia 30 Total Protein 5.9 L Albumin 3.6 Lipase 20 Urine Color Yellow Urine Appearance Clear Urine pH 6.0 Ur Specific [place] 1.010 Urine Protein Negative Urine Glucose (UA) 250 H Urine Ketones Negative Urine Blood Negative Urine Nitrite Negative Ur Leukocyte Esterase Trace H Urine RBC 0-2 Urine WBC 0-5 Ur Squamous Epith Cells 0-2 Urine Bacteria None Seen Hyaline Casts 0-2 Urine Opiates Screen Not Detected Ur Buprenorphine Scrn Not Detected Ur Oxycodone Screen Not Detected Urine Methadone Screen Not Detected Urine Fentanyl Screen Not Detected Ur Barbiturates Screen Not Detected Valproic Acid 41.4 L Ur Phencyclidine Scrn Not Detected Ur Amphetamines Screen Not Detected U Benzodiazepines Scrn Not Detected Urine Cocaine Screen Not Detected U Marijuana (THC) Screen Not Detected Ethyl Alcohol 11 Influenza Type A (PCR) NEGATIVE Influenza Type B (PCR) NEGATIVE RSV RNA Qual (PCR) NEGATIVE SARS-CoV-2 RNA (RT-PCR) NEGATIVE Mental Status Exam Mental Status Exam Narrative: Patient is A+O x3. Able to recall incident happened at home when she fell but not able to recall she smeared fices on the wall. She is not confused. Able to advocate for self by asking lab results and xray. She is aware of VNA coming in the house to offer medications. Denies SI/SIB/HI/AVH. Do not appear to be psychotic or responded to internal stimuli. Denies depression and anxiety. Unkempt hair but fair hygiene. Wearing hospital attire. Patient would be at her baseline. Medications Medications Current Medications Acyclovir (Acyclovir 200 Mg Capsule) 400 mg PO TID CASANDRA Atorvastatin Calcium (Atorvastatin Calcium 10 Mg Tablet) 10 mg PO BEDTIME CASANDRA Divalproex Sodium (Divalproex Sodium Er 500 Mg Tab.Er.24h) 1,000 mg PO BEDTIME CASANDRA Furosemide (Furosemide 40 Mg Tablet) 40 mg PO DAILY CASANDRA; Protocol Insulin Glargine (Insulin Glargine,Hum.Rec.Anlog 100 Unit/Ml 10 Ml Vial) 52 unit SUBCUT DAILY CASANDRA Lisinopril (Lisinopril 40 Mg Tablet) 40 mg PO DAILY CASANDRA; Protocol Lorazepam (Lorazepam 0.5 Mg Tablet) 0.5 mg PO TID CASANDRA Metoprolol Succinate (Metoprolol Succinate Er 25 Mg Tab.Er.24h) 25 mg PO DAILY CASANDRA; Protocol Non-Formulary Medication (Dulaglutide [Trulicity]) 1.5 mg SUBCUT FR CASANDRA Omeprazole (Omeprazole 20 Mg Capsule.Dr) 20 mg PO DAILY@0630 CASANDRA Polyethylene Glycol (Polyethylene Glycol 3350 17 Gm Powd.Pack) 17 gm PO BID CASANDRA Risperidone (Risperidone 1 Mg Tablet) 1 mg PO BID CASANDRA Ropinirole HCl (Ropinirole Hcl 0.25 Mg Tablet) 1 mg PO BEDTIME CASANDRA Senna/Docusate Sodium (Sennosides/Docusate Sodium Tablet) 2 tab PO BEDTIME CASANDRA Tolterodine Tartrate (Tolterodine Tartrate La 2 Mg Cap.Er.24h) 2 mg PO DAILY CASANDRA Allergies Allergies Allergy/AdvReac Type Severity Reaction Status Date / Time Penicillins Allergy Intermediate rash/swelli Verified 05/23/25 19:25 ng shellfish derived Allergy Intermediate Swelling, Verified 05/23/25 19:25 Hives Assessment & Plan Assessment & Plan (1) Confusion: Status: Acute Code(s): R41.0 - Disorientation, unspecified Plan Meet with patient in ED #9 with the presence of Wash Plant Operator: patient does not know reason for ED visit. She is alert and oriented to her , current year but not the month or the day of the week. She reports that she fell in the bathroom a couple days ago but denies hitting her head. Report that she has not sleeping well I do not sleep but reported that she slept well last night. Report poor appetite. Report food is available but she has poor appetite I barely eat nothing . She told this provider that test was done/xray was done yesterday not no one informed her regarding result. Review lab result with patient. Also encourage patient to eat and hydrate herself as she has hx of not eating right for last [facility]OC admission on [facility]. She reports that she has been compliant with meds and that the nurse came in to offer her meds. She does not want to go back to [facility]. She expressed that she wants to go home. Denies anxiety/ depression. Denies paranoid. Denies AVH. Do not appear to be psychotic/paranoid or do not making any delusional statement. Denies SI/SIB/HI. Case also discussed with previous provider- Bette Duenas who was taking care of patient back in April. Patient at baseline as some cognitive declined. Per record, patient scored 8/10 on MoCCA last month. Need ADL's office clerk assistant. Patient does not appear to be confused and appear to be at baseline. Plan: Ordered Ammonia and VPA rule out toxicity. VPA level is 41.4 given the fact that last dose on 05/23/25 at not given by ED staff. Restart all home meds after RN verified. Patient does not meet criteria for IPLOC admission. Will discharge patient home with home care services. Dr. Brasher placed a referral to case management to make sure patient going home with continue of care from previous services and VNA to resume. U/A negative. Platelet and LFT's WNL. Electrolyses WNL with borderline K of 3.3. Patient encouraged to increase PO food and fluid intake. Total protein is 5.9 low. AIMs assessment was negative. No abnormal movement. Total time managing care of this patient today ____ minutes. Patient educated on: medication risk/benefits Informed Consent: understands
--- NOTE | 2025-05-24 13:58 | PHA.MEDREC ---
Pharmacy Consult ? Medication Reconciliation Pharmacy has reviewed the medication reconciliation completed by nursing. Claims match, called pharmacy to confirm insulin units on Rx.
--- NOTE | 2025-05-24 14:14 | PC.NURSE ---
Pharmacy looking to see if patient trulicity could be brought in from home. Called HCP Sanam Rosenbaum. No answer on her phones. Left voicemail to call back
[2025-05-24 14:31] VITALS: BP 141/76; PULSE 56; RESP 14; TEMP 36.3; O2SAT 96
[2025-05-24 21:57] VITALS: BP 108/58; PULSE 71; RESP 16; TEMP 36.5; O2SAT 96
--- NOTE | 2025-05-24 22:00 | MHC.CM.ED ---
CM met with patient with medical device sales, as pt is Lithuanian speaking. Pt was evaluated by CARE team and beef grader. No IPLOC. Pt has been hospitalized in the past. Hx Schizophrenia.She was only educated to the 4th grade. Pt is not a great historian. Speaking about God and answering truthfully, but does not answer all of CM question. Will call her sister for more information. Pt lives alone. Her sister lives on the 4th floor and she lives on the first floor.Her sister is dealing with her own health concerns and her has Cancer. Pt does have a walker, but says she needs a new one. Her sister, Nicky ([phone]) feels she needs a SOILED LINEN DISTRIBUTOR. She is unsure if her sister needs LTC, but she does not think she is safe at home. Patient has daily VNA for medications. Pt and sister gunn not know what agency provides services. Pt has [facility] insurance. Plan is to call [facility] in the morning to assess what services she has and if they feel she needs more care needs, as they see her daily. Provider aware and agrees with plan. Pt will remain overnight while CM assess her living situation with [facility].
[2025-05-24 23:02] VITALS: BP 147/64; PULSE 60; RESP 18; TEMP 36.1; O2SAT 98
[2025-05-25 05:58] VITALS: BP 142/60; PULSE 66; RESP 18; TEMP 36.3; O2SAT 98
[2025-05-25 07:53] LABS: Glucose, Whole Blood 272 mg/dL (60-115)
[2025-05-25 08:05] VITALS: BP 156/72; PULSE 76; RESP 18; TEMP 36.7; O2SAT 99
[2025-05-25] MEDS: Tolterodine Tartrate LA 2 MG CAP.ER.24H PO (10:06)
[2025-05-25] MEDS: Insulin Glargine,Hum.rec.anlog 100 UNIT/ML 10 ML VIAL 52 UNIT SUBCUT (10:11)
[2025-05-25 10:12] VITALS: BP 136/85
[2025-05-25] MEDS: Metoprolol Succinate ER 25 MG TAB.ER.24H PO (10:12)
--- NOTE | 2025-05-25 11:12 | MHC.CM.ED ---
Patient remains in ER overflow. Spoke with Gabriel at [facility]. Patient has auth for [facility], and is active with Home Care [facility]. [facility] is in the process of evaluating patient for [facility] hours. Spoke with patient's sister, Nicky, via telephone at [phone]. Patient was d/c'd from [facility] on 05/03 with daily VNA visits for medication. Nicky was told to keep patient out of the day program for about 1 month to see how she is doing. Nicky reports pateint has been falling at home. Physical therapy eval for home safety eval will be ordered to determine safe d/c plan. Continue to monitor for d/c needs.
[2025-05-25 14:00] VITALS: BP 151/72; PULSE 85; RESP 18; TEMP 36.7; O2SAT 97
--- NOTE | 2025-05-25 14:30 | MHC.CM.ED ---
Physical therapy eval completed. Short term rehab is recommended. Spoke with patient's niece/HCP, Criss via telephone at [phone]. Criss is agreeable to STRMilena Kahn anticipats patient will need to transition to half-way care because patient doesn't appear to be safe at home. Criss agreeable to referral being broadcasted via [facility] and bed offers being discussed. Continue to monitor for d/c needs.
[2025-05-25 20:00] VITALS: BP 137/76; PULSE 83; RESP 17; TEMP 36.3; O2SAT 95
--- NOTE | 2025-05-25 22:05 | PC.NURSE ---
Took over patient's care at 1900, patient is alert to self and sometimes place, calm and cooperative. Vitals stable, l/s clear, bedtime medications administered without issue, offers no complaints at this time. Assisted patient to bathroom, standby assist with walker.
[2025-05-26 06:26] VITALS: BP 108/52; PULSE 62; RESP 14; TEMP 36.7; O2SAT 98
--- NOTE | 2025-05-26 07:06 | PC.NURSE ---
Addendum entered by Ya Bains RN 05/26/25 07:49: Patient is 65 y/o F with hx of schizophrenia, pneumonia, bacteremia enterobacter, HLD, hypothyroidism, DM, HTN, GERD presents with behavior outbursts at home. Per the nephew who is at bedside, the patient has been difficult with her VNA. Was noted to be smearing feces over the bathroom wall. The nephew was not aware of any new medication changes/adjustments, the patient has been taking her medications as directed. The VNA dispenses her medication to her on a daily basis. The patient is at her baseline mentation per the nephew. Patient was evaluated by psych and determined she did not meet IPLOC. Family is requesting STR with the possbiity of LTC in the future as they believe patient is no longer safet at home. Patient alert and cooperative. Lungs clear but diminished. Respirations even and non-labored. Abdomen soft, non-tender with positive bowel sounds. Positive pedal pulses with no edema. Original Note: Medical History Class 1 obesity Anxiety Atypical pneumonia Pneumonitis Nausea Abdominal pain Osteoporosis Hypertension History of blood clot in brain Hypercholesteremia HSV-2 (herpes simplex virus 2) infection Arthritis Rheumatic fever Schizophrenia GERD (gastroesophageal reflux disease) Depression HTN (hypertension) Hyperlipemia Diabetes
[2025-05-26] MEDS: Insulin Glargine,Hum.rec.anlog 100 UNIT/ML 10 ML VIAL 52 UNIT SUBCUT (08:38)
[2025-05-26] MEDS: Metoprolol Succinate ER 25 MG TAB.ER.24H PO (08:39)
[2025-05-26] MEDS: Tolterodine Tartrate LA 2 MG CAP.ER.24H PO (10:10)
--- NOTE | 2025-05-26 10:30 | MHC.CARE ---
Ginger from [facility] reports that that if discharge could be faxed to the agency when patient is discharged, they can ensure follow up. [phone]
--- NOTE | 2025-05-26 10:38 | MHC.CM.NN ---
Patient remains in ER overflow. [facility] is only facility able to offer a bed. Spoke with patient's niece/HCP, Criss, via telephone at [phone]. Criss accepts bed. Criss will let her mother, Nicky, know. [facility] will obtain insurance auth. Patient will need [facility] PASRR Level 2. T/W will submit for this. Continue to monitor for d/c needs.
--- NOTE | 2025-05-26 10:41 | MHC.CM.PN ---
Patient remains in ER overflow. [facility] is only facility able to offer a bed. Spoke with patient's niece/HCP, Criss, via telephone at [phone]. Criss accepts bed. Criss will let her mother, Nicky, know. [facility] will obtain insurance auth. Patient will need [facility] PASRR Level 2. T/W will submit for this. Continue to monitor for d/c needs.
[2025-05-26 14:00] VITALS: BP 142/72; PULSE 76; RESP 16; TEMP 36.5; O2SAT 95
--- NOTE | 2025-05-26 14:01 | MHC.CM.ED ---
Insurance auth has been obtained by [facility]. [facility] PASRR Level 2 obtained. Beatris TINOCOS booked for tomorrow, Sunday 05/27 at 9am. Med [facility] with chart. Patient, Kelly Hernandez RN and Dai ARCINIEGA aware. Continue to monitor for d/c needs.
[2025-05-26 19:55] VITALS: BP 108/64; PULSE 83; RESP 19; TEMP 37.1; O2SAT 97
--- NOTE | 2025-05-27 00:31 | PC.NURSE ---
Assumed care of patient at 1900 Patient calm and cooperative with care. Compliant with medications. Denies pain at this time. Rings appropriately to walk to BR with assist. Patient resting comfortably, safety precautions in place, bed alarm credit relationship manager mcneil within reach.
[2025-05-27 05:42] VITALS: BP 120/63; PULSE 73; RESP 16; TEMP 36.4; O2SAT 99
[2025-05-27] MEDS: Metoprolol Succinate ER 25 MG TAB.ER.24H PO (08:37)
[2025-05-27] MEDS: Tolterodine Tartrate LA 2 MG CAP.ER.24H PO (08:38)
[2025-05-27] MEDS: Insulin Glargine,Hum.rec.anlog 100 UNIT/ML 10 ML VIAL 52 UNIT SUBCUT (08:38)
[2025-05-27 09:06] VITALS: BP 120/62; PULSE 80; RESP 15; TEMP 36.6
--- NOTE | 2025-05-27 09:12 | PC.NURSE ---
pt being d/c'ed this AM. med pass and assessment performed with lead esthetician. pt informed of d/c. facility was contacted and report given. per facility they have all paperowork required. all belongings with pt.
== END 2025-05-27 09:10 ==
PROVIDERS: Emergency Medicine; Nurse Practitioner Psychiatric/Mental Health; Physician Assistant Medical; Emergency Provider Emergency Medicine Emergency Medical Services; PCP Internal Medicine
DX: F03.90 Unspecified dementia, unspecified severity, without behavioral disturbance, psychotic disturbance, mood disturbance, and anxiety (principal); R45.1 Restlessness and agitation; F20.0 Paranoid schizophrenia; E03.9 Hypothyroidism, unspecified; E11.9 Type 2 diabetes mellitus without complications; I10 Essential (primary) hypertension; K21.9 Gastro-esophageal reflux disease without esophagitis; Z79.899 Other long term (current) drug therapy; Z03.818 Encounter for observation for suspected exposure to other biological agents ruled out
CPT/HCPCS: 36415; 74018; 80053; 80164; 80307; 81001; 82140; 82947; 83690; 83735; 85025; 87637; 97162; 99285; S9485

== ENCOUNTER → 2025-05-23 21:38 | Outpatient (BNV) | payer OTHER, SELFPAY | PROVIDERS: Emergency Provider Emergency Medicine Emergency Medical Services; PCP Internal Medicine; Visit Provider Nurse Practitioner Psychiatric/Mental Health | DX: R41.0 Disorientation, unspecified (principal) | CPT/HCPCS: 99283 ==

== ENCOUNTER → 2025-05-23 22:16 | Outpatient (BNV) | payer OTHER, SELFPAY | PROVIDERS: Emergency Provider Emergency Medicine; PCP Internal Medicine; Visit Provider General Practice | DX: M54.9 Dorsalgia, unspecified (principal) | CPT/HCPCS: 74018 ==

== ENCOUNTER 2025-08-12 14:40 | Emergency (ER) | payer OTHER, SELFPAY ==
--- OUTSIDE RECORDS SUMMARY | 2019-11-17 05:30 | XMS_ITS | Continuity of Care Document ---
Author Organization [employer], [facility] Address [address] [place] [address] Phone Care Team Providers Care Field Operations Technician Name Role Phone Gerard Valdes CNP Unavailable Unavailable Allergies, Adverse Reactions, Alerts Substance Reaction Status Criticality Penicillins Itching Active No Information Medications Medication Instructions Dosage Effective Dates (start - stop) Status Comments OMEPRAZOLE (unknown strength) take 1 capsule by oral route every day 30 minutes to 1 hour before a meal Not Available - Active CYCLOBENZAPRINE HCL (unknown strength) take 1 tablet by oral route 3 times every day Not Available - Active DICLOFENAC SODIUM (unknown strength) take 1 tablet by oral route 2 times every day Not Available - Active OLANZAPINE (unknown strength) take 1 tablet by oral route every day Not Available - Active METOLAZONE (unknown strength) take 1 tablet by oral route every day Not Available - Active HYDROXYZINE HCL (unknown strength) take 1 tablet by oral route 3 times every day as needed Not Available - Active TRAZODONE HCL (unknown strength) take 1 tablet by oral route 2 times every day after meals Not Available - Active gabapentin 100 mg capsule take 3 capsule by oral route 3 times every day 300 MG - Active acyclovir 400 mg tablet take 1 tablet by oral route 3 times every day for 10 days 400 MG - Active VICTOZA 2-[place] (unknown strength) inject by subcutaneous route every day Not Available - Active METFORMIN HCL (unknown strength) take 1 tablet by oral route 2 times every day with morning and evening meals Not Available - Active HYDROCHLOROTHIAZIDE (unknown strength) take 1 capsule by oral route every day Not Available - Active ATORVASTATIN CALCIUM (unknown strength) take 1 tablet by oral route every day Not Available - Active ASPIR 81 (unknown strength) take 1 tablet by oral route every day Not Available - Active LANTUS (unknown strength) inject by subcutaneous route as per insulin protocol Not Available - Active Humalog 100 unit/mL SubQ Cartridge inject by subcutaneous route as per insulin sliding scale protocol - Active lisinopril 2.5 mg tablet take 1 tablet (2.5MG) by oral route every day 2.5 MG - Active Estrace 0.01% (0.1 mg/g) Vaginal Cream insert (1G) by vaginal route every week, then apply 1 gram to vag opening biw. - No Longer Active simvastatin 10 mg tablet take 1 tablet (10MG) by oral route every day in the evening 10 MG - No Longer Active fluoxetine 20 mg capsule take 1 capsule (20MG) by oral route every day in the morning 20 MG - No Longer Active Procedures Procedure Date PREV VISIT, EST, AGE 40-64 PREV VISIT, EST, AGE 40-64 OFFICE/OUTPATIENT VISIT, EST PREV VISIT, EST, AGE 40-64 OFFICE/OUTPATIENT VISIT, EST OFFICE/OUTPATIENT VISIT, EST OFFICE/OUTPATIENT VISIT, EST OFFICE/OUTPATIENT VISIT, EST OFFICE/OUTPATIENT VISIT, EST BX/CURETT OF CERVIX W/SCOPE SURGICAL TRAYS OFFICE/OUTPATIENT VISIT, NEW Results Test Name Date and Time Measure Units Reference Range Abnormal Flag Status Comments Panel Description: Human pap illoma virus 16+18+31+33+35+45+51+52+56 DNA [Presence] in Cervix by Probe Final SOURCE 2019 15:12:3 5 CERVICAL Final HPV HIGH RISK 2019 15:12:3 5 Negative Negative N Final NOTEThis test detects E6/E7 viral messenger RNA of the high-risk HPVtypes 16, 18, 31, 33, 35, 39, 45, 51, 52, 56, 58, 59, 66 and 68associated with cervical cancer and its precursor lesions.Cross-reactiv ity with low-risk HPV genotypes 26, 67, 70 and 82may occur.Performed at [id number] [facility] [id number] Panel Description: Microscop ic observation [Identifier] in Cervix by Cyto stain.thin prep Final PAP, THIN PREP WITH IMAGING 2019 12:52:1 1 SEE COMMENT Final Final Cytologic Interpretation ThinPrep Pap Test (Cervical): Satisfactory for evaluation. NEGATIVE FOR INTRAEPITHELIAL LESION OR MALIGNANCY. The cytologic changes of atrophy are noted. [facility]/11/20/2019Interpret [place] [address], License number: [id number]. 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 The Pap test is primarily effective for thediagnosis and prevention of squamous cell carcinoma. Regular screeningis critical for prevention. ThinPrep liquid-based slides, which meet the Sheet Tester criteria forautomated screening, have been screened by the [facility](as of 06/07/07) along with an additional manual rescreening by acytotechnologist and, if indicated, by a pathologist. [facility] [employer] [address] [place] [id number] No. [id number] CAP Accreditation No. [id number] Director: Randal Briones M.D. Advance Directives Directive Yes / No Effective Date File Name No Information Encounters Encounter Description Practice Location Reason(s) For Visit Diagnoses Date Provider Providers Copied on Encounter PREV VISIT, EST, AGE 40-64 [facility], [address] [place] [address], [id number] , [place] tel:[phone] [employer] annual exam (chief complaint) Encntr for taxation accountant exam (general) (routine) w/o abn findingsBreast cancer screeningCervical cancer screeningScreening for HPV (human papillomavirus)[place] ge barrier affecting health care 0 Keisha Gee. [address] [place] [address], [id number] , [place]. tel: [phone] Referring Provider: Gutierrez Collins, [address] [place] [address], [address] . tel:[phone] PREV VISIT, EST, AGE 40-64 [facility] [address] [place] [address], [id number] , [place] tel: [phone] [facility] annual exam (chief complaint) Routine taxation accountant examinationScreening for HPV (human papillomavirus) 5 Geno Ugarte. [address] [place] [address] [place], [place], [id number] . tel: [phone] Referring Provider: Torito Moon, [address] [place] [address] [place], [address] . tel:[phone] OFFICE/OUTPA TIENT VISIT, EST [facility], [address] [place] [address], [id number] , [place] tel: [phone] [facility] PAP repeat (chief complaint) Symptom associated with female genital organsPap smear cannot exclude high grade squamous intraepithelial lesion (ASC-H) 4 Kwadwo Whitley. [address] [place] [address], [id number] . tel: [phone] Referring Provider: Gutierrez Collins, [address] [place] [address], [address] . tel:[phone] PREV VISIT, EST, AGE 40-64 [facility], [address] [place] [address], [id number] , [place] tel: [phone] [facility] (chief complaint) Moderate dysplasia of cervix (DESI II)Gynecological Examination 3 Kwadwo Whitley. [address] [place] [address], [id number] . tel: [phone] Referring Provider: Gutierrez Burkett MD W, [address] [place] [address], [address] . tel:[phone] OFFICE/OUTPA TIENT VISIT, [facility] [facility], [address] [place] [address], [id number] , [place] tel: [phone] [employer] repeat pap (chief complaint) DYSPLASIA OF CERVIX NOSDYSPLASIA OF CERVIX NOS 3 Kwadwo Whitley. [address] [place] [address], [id number] . tel: [phone] Referring Provider: Gutierrez Burkett MD W, [address] [place] [address], [id number] . tel:[phone] [facility], [address] [place] [address], [id number] , [place] tel: [phone] [employer] No Information 3 Kwadwo Whitley. [address] [place] [address], [id number] . tel: [phone] OFFICE/OUTPA TIENT VISIT, [facility], [address] [place] [address], [id number] , [place] tel: [phone] [employer] No Information 3 Kwadwo Whitley. [address] [place] [address], [id number] . tel: [phone] Referring Provider: Gutierrez Collins, [address] [place] [address], [id number] . tel:[phone] OFFICE/OUTPA TIENT VISIT, [facility], [address] [place] [address], [id number] , [place] tel: [phone] [employer] No Information 2 Kwadwo Whitley. [address] [place] [address], [id number] . tel: [phone] Referring Provider: Gutierrez Burkett MD W, [address] [place] [address], [place], [address] . tel:[phone] OFFICE/OUTPA TIENT VISIT, [facility], [address] [place], [place] [address] [facility], [place], [place], [id number] , [place] tel: [phone] [employer] No Information 2 Kwadwo Whitley. [address] [place] [address], [place], [place], [id number] . tel: [phone] Referring Provider: Gutierrez Burkett MD W, [address] [place], [place] [address] [facility], [place], [address] . tel:[phone] [facility], [address] [place], [place] [address] [facility], [place], [place], [id number] , [place] tel: [phone] [employer] No Information 2 Kwadwo hWitley. [address] [place] [address], [id number] . tel: [phone] Referring Provider: Gutierrez Burkett MD W, [address] [place], [place] [address], [address] . tel:[phone] OFFICE/OUTPA TIENT VISIT, [facility], [address] [place], [place] [address] [facility], [place], [place], [id number] , [place] tel: [phone] [employer] No Information 2 Kwadwo Whitley. [address] [place] [address], [id number] . tel: [phone] Referring Provider: Gutierrez Collins, [address] [place], [address] . tel:[phone] Family History Family Member Type Diagnosis Age At Onset No Information Immunizations Vaccine Date Status Comments Flu (split) (3 yrs or older) administered Note: Invalid documented admin date was . ; Source: Other Provider Payers Payer name Insurance type Covered republican ID Socrates Galarza (s) [id number] Social History Type Description Quantity Date Captured Comments Alcohol Use Details No Caffeine Use Details coffee Tobacco Use Status Never smoked tobacco 2019 Smoking Status Never smoker Non-Smoking Tobacco Use Details : No Details Available : No Details Available Sex Female Vital Signs Date / Time: Height Weight BMI Pulse Rate Blood Pressure Temperature Respiratory Rate Body Surface Area Head Circumference Head Circ. Percentile Wt./Bossman. Percentile BMI percentile Pulse Ox Inhaled Ox 10:17 AM 61.00 in 96.615 kg (213.00 lbs) 40.2 5 kg/m eter (2) 146/80 mm[Hg] Chief Complaint And Reason For Visit From encounter dated '11/17/2019 10:30'. annual exam (chief complaint). Description: Currently : no. : 2. Parity: Term: 2. Livin. The patient states she uses post-menopausal for control. Her menses is absent. Negative for: breast self exam.Postmenopausal. Pertinent negatives include abnormal vaginal bleeding. She does take multivitamins. The patient does not use tobacco. She has not been exposed to passive smoke. She has not been exposed to passive vaping. She does not drink alcohol. Additional information: ptreturns after 5 years, very limited [place]-accompanied by her , also limited Zambian. h/o ASC_H pap with neg biopsies, neg pap in 2012, 2013 and 2014. will repeat today. unsure of last mammogram. denies any PMB or taxation accountant concerns. Reason For Referral Reason For Referral No Information Plan Of Treatment Date Type Action Status Goal Colonoscopy Scre en. Due on due Goal Mammogram (Scree natalya); Bilateral. Due on due Future Order: Radiology Order Ma mmogram, Screening ([id number]), Ordered on: Ordered Future Order: Lab Order PAP (TP) - IMAGE GUIDED ([id number]), Ordered on: Ordered History Of Present Illness Encounter Date Complaint History Of Prese nt Illness annual exam Currently pregna nt: no. : 2. Parity: Term: 2. Livin. The patient states she uses post-menopausal for control. Her menses is absent. Negative for: breast self exam.Postmenopausal. Pertinent negatives include abnormal vaginal bleeding. She does take multivitamins. The patient does not use tobacco. She has not been exposed to passive smoke. She has not been exposed to passive vaping. She does not drink alcohol. Additional information: pt returns after 5 years, very limited [place]ian-accompanied by her , also limited Z[place]ian. h/o ASC_H pap with neg biopsies, neg pap in 2012, 2013 and 2014. will repeat today. unsure of last mammogram. denies any PMB or taxation accountant concerns. annual exam Currently pregna nt: no. : 2. Parity: Term: 2. Livin. The patient states she uses post-menopausal for control. Her menses is absent. Negative for dysmenorrhea and menorrhagia. Negative for: breast discharge, breast lump(s) and breast pain. Positive for: breast self exam.Postmenopausal. Menopausal symptoms negative for: hot flashes, insomnia, night sweats and vaginal dryness. Pertinent negatives include abnormal bleeding (hematology), abnormal vaginal bleeding, anxiety, decreased libido, depression, difficulty falling sleep, dyspareunia, history of infertility, nocturia, sexual dysfunction, sleep disturbances, urinary incontinence, urinary urgency, vaginal discharge and vaginal itching. The patient does not use tobacco. She has not been exposed to passive smoke. She does not drink alcohol. Additional information: Patient is here for an annual exam. Patient is spansih speaking, she has her daughter here to interpret for us. Patient has no concerns today. she has no vaginal bleeding. She has no pain in her breast. She has no pain in her pelvis. She has no concerns and is ready to get out of here. She is due for mammogram, scheduled for next month. PAP repeat See previous not e. The patient's pelvic pain continues and we will plan pelvic ultrasound. Again, she is being followed for a previous abnormal PAP which had shown possible moderate dysplasia. Her cervix is not recognizable as such and the patient wishes minimal intervention at this time. PAP test is done today. Functional Status Date Functional Assessmen t No Information Instructions Date Instruction Additional Infor chava As Above Related to Deirdre hoang for HPV (human papillomavirus) Patient here for karen diehl annual exam. She has no abnormalities noted on exam and is doing well. Pap and HRHPV were collected with no complications. Patient return for annual in 1 year, or sooner with any symptoms/concerns. She does have history of ASC-H, but negative biopsies. She had her last 2 paps were normal, if this is normal, will return to once yearly. 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 mammogram order and recommended annuallymeds all managed by PCP-pt had a list with her today so this is how we were able to fill in that section Mental Status Date Cognitive Assessment Orientation - [place] ed to time, place, person, situation. Patient Care Teams Name Effective Dates (start - stop) Status Members No Information
--- OUTSIDE RECORDS SUMMARY | 2023-10-12 11:07 | XMS_ITS | Continuity of Care Document ---
Author Organization [facility] Address [address] [facility] [address] [place] [address] Phone Care Team Providers Care Synthetic Department Supervisor Name Role Phone Blaise FREEMAN, Ujjwala Unavailable Unavaila ble Allergies, Adverse Reactions, Alerts Substance Reaction Status Criticality PENICILLIN Active No Information shellfish derived Active No Informa tion Medications Medication Instructions Dosage Effective Dates (start - stop) Status Comments OMEPRAZOLE DR 20 MG CAPSULE TAKE 1 CAPSULE BY MOUTH 2 TIMES DAILY 30 MINUTES TO 1 HOUR BEFORE A MEAL. - Active TRULICITY 0.75 MG/0.5 MLPEN INJECT 0.75 MG UNDER THE SKIN ONCE EVERY WEEK. DELIVER TO [facility] - Active acetaminophen ER 650 mg tablet,extended release take 2 tablet by oral route TID stephania at home - Active Lantus Solostar U-100 Insulin 100 unit/mL (3 mL) subcutaneous pen inject 48 units by subcutaneous route daily - Active ATORVASTATIN 10 MG TABLET TAKE 1 TABLET BY MOUTH DAILY. - Active acyclovir 400 mg tablet take 1 tablet by oral route three times daily - Active amitriptyline 10 mg tablet WEAN GIVEN CONCERN WITH MENTAL STATUS - Wean to 5mg qd x 5 days then off - Active clonazepam 0.5 mg tablet RX BY [facility] -- DO NOT REFILL -- REDUCED IN FEB take 0.5 tablet by oral route every day - Active divalproex ER 500 mg tablet,extended release 24 hr take 2 tablet by oral route every bedtime 1000 MG - Active hydrochlorothiazide 12.5 mg tablet take 1 tablet by oral route every day 12.5 MG - Active lisinopril 20 mg tablet take 1 tablet by oral route every day 20 MG - Active glucose 4 gram chewable tablet take one tablet by mouth if blood sugar drops below 80 as directed - Active Debrox 6.5 % ear drops instill 5 drop by otic route once daily into the left ear on (-) for 5 days total - Active PLEASE DELIVER TO [address] [facility] ELDERCARE pen needle, diabetic 31 gauge x 5/16 use 4 times a day as directed - Active ammonium lactate 12 % topical cream apply to affected area BID - Active Humalog U-100 Insulin 100 unit/mL subcutaneous solution inject by subcutaneous route pre lunch on per Sliding scale - Active Please send to [place]. Please do not autorefill.\Un julianna 200-no insulin. 201-250-4 units, 251-300-6 units, 301-350-8 units, over 350 inform clinician Natasha Ultra Strength 4 %-30 %-10 % topical cream apply to affrected area up to 3 times a day as directed - Active trazodone 100 mg tablet RX BY [facility] -- DO NOT REFILL -- take 1 tablet by oral route every bedtime - Active acetaminophen 325 mg tablet FOR USE AT DAY PROGRAM -- take 2 tablet by oral route every 4 hours as needed for pain, please do not exceed 2 doses/day at - Active polyethylene glycol 3350 17 gram/dose oral powder FOR USE AT [facility] DAY PROGRAM - mix 17g into water and drink daily as needed for constipation - Active amlodipine 5 mg tablet take 1 tablet by oral route twice a day - Active cetirizine 10 mg tablet take 1 tablet by oral route every day as needed for allergy symptoms - Active Gvoke HypoPen 2-Pack 0.5 mg/0.1 mL subcutaneous auto-injector - Active Advance Directives Directive Yes / No Effective Date File Name No Information Encounters Encounter Description Practice Location Reason(s) For Visit Diagnoses Date Provider [facility], [address], [place], [place], [id number], [place] tel:[phone] [place] No Information Sep- 4 Bhagavatula Ujjwala. [address] [place], [id number], [place]. tel:[phone] [facility], [address], [place], [place], [id number], [place] tel:[phone] [place] No Information Feb-2 3 Dorothea Barb. [address] [place], [id number], [place]. tel:[phone] [facility], [address], [place], [place], [id number], [place] tel:[phone] [place] No Information Feb- 3 Bhagavatula Umarlinjwala. [address], [id number], [place]. tel:[phone] [facility], [address], [place], [place], [id number], [place] tel:[phone] [place] Other chronic pain Feb-0 3 Jojo Ojeda. [address] [place] [address], [id number], [place]. tel:[phone] [facility], [address], [place], [place], [id number], [place] tel:[phone] [place] Muscle weakness (generalized)Other chronic pain January- 3 Jojo Ojeda. [address] [place], [place], [id number], [place]. tel:[phone] [facility], [address], [place], [place], [id number], [place] tel:[phone] [place] Other chronic painMuscle weakness (generalized) January- 3 Uribe Lynette. [address], [place], [id number], [place]. tel:[phone] [facility], [address], [place], [place], [id number], [place] tel:[phone] [place] Other chronic pain January- 3 Uribe Lynette. [address], [place], [id number], [place]. tel:[phone] [facility], [address], [place], [place], [id number], [place] tel:[phone] [place] Acute right-sided lo w back pain with right-sided sciatica January- 3 Baldemar Landrum. [address] [place], [place], [id number], [place]. tel:[phone] [facility], [address], [place], [place], [id number], [place] tel:[phone] [place] Acute right-sided lo w back pain with right-sided sciatica January-0 3 Baldemar Landrum. [address] [place], [id number], [place]. tel:[phone] [facility], [address], [place], [place], [address], [place] tel:[phone] [place] Encounter for rehabilitation evaluationAcute right-sided low back pain with right-sided sciatica January-0 3 Baldemar Landrum. [address] [place], [id number], [place]. tel:[phone] [facility], [address], [place], [place], [id number], [place] tel:[phone] [place] Lower extremity edema (chief complaint) Localized edemaRadicular pain May-0 3 Blaise Nieto. [address] [place], [id number], [place]. tel:[phone] [facility], [address], [place], [place], [id number], [place] tel:[phone] [place] Lumbago with sciatic a, right side 3 Raffaele Kaden. [address], [place], [id number], [place]. tel:[phone] [facility], [address] [facility] [address] [facility], [place], [place], [id number], [place] tel:[phone] [place] No Information 3 Raffaele Kaden. [address], [place], [id number], [place]. tel:[phone] [facility], [address] [facility] [address] [facility], [place], [place], [id number], [place] tel:[phone] [place] No Information 3 Raffaele Kaden. [address], [place], [id number], [place]. tel:[phone] [facility], [address] [facility] [facility], [place], [place], [id number], [place] tel:[phone] [place] Encounter for genera l adult medical examination without abnormal findings 3 Pedro Luis Crystal. [address] [place], [place], [id number], [place]. tel:[phone] [facility], [address] [facility] [facility], [place], [place], [address], [place] tel:[phone] [place] OV (chief complaint) Localized edemaLeg cramps 3 Bhagavatula Ujjwala. [address], [place], [address], [place]. tel:[phone] [facility], [address], [place], [place], [id number], [place] tel:[phone] [place] No Information 3 Bhagavatula Ujjwala. [address] [place], [place], [id number], [place]. tel:[phone] [facility], [address] [address], [place], [place], [address], [place] tel:[phone] [place] OV (chief complaint) Bipolar 1 disorder 3 Bhagavatula Ujjwala. [address] [place], [place], [id number], [place]. tel:[phone] [facility], [address] [address], [place], [place], [address], [place] tel:[phone] [place] No Information 3 Bhagavatula Ujjwala. [address] [place], [place], [id number], [place]. tel:[phone] [facility], [address] [place] [address], [place], [place], [id number], [place] tel:[phone] [place] No Information 3 Raffaele Alfonso. [address], [place], [id number], [place]. tel:[phone] [facility], [address] [address], [place], [place], [id number], [place] tel:[phone] [place] No Information 0 3 Pedro Luis Crystal. [address], [place], [id number], [place]. tel:[phone] [facility], [address] [facility] [address] [place] [address], [id number], [place] tel:[phone] [place] RAJENDRA (chief complaint) Bipolar 1 disorderGAD (generalized anxiety disorder)Schizophrenia, unspecified typeHypertension, unspecified typeHypercholesteremiaT ype 2 diabetes mellitus without complication, with long-term current use of insulinLong term current use of insulinHypothyroidism, unspecified typeLong-term current use of injectable noninsulin antidiabetic medicationGastroesophag eal reflux disease without esophagitisEdema, unspecified typeTremorExcessive cerumen in left ear canal 3 Pedro Luis Crystal. [address] [place], [id number], [place]. tel:[phone] [facility], [address], [place], [place], [address], [place] tel:[phone] [place] No Information 3 Pedro Luis Crystal. [address] [place], [place], [id number], [place]. tel:[phone] [facility], [address], [place], [place], [address], [place] tel:[phone] [place] Skin excoriation 3 Pedro Luis Crystal. [address] [place], [place], [address], [place]. tel:[phone] [facility], [address] [facility] [address], [place], [place], [id number], [place] tel:[phone] [place] Encounter for nutritional assessmentOther obesityDeficiency of other specified nutrient elements 3 Renetta Alvares. [address] [place], [place], [address], [place]. tel:[phone] [facility], [address] [facility] [address] [facility], [place], [place], [address], [place] tel:[phone] [place] OV (chief complaint) Left foot pain 3 Pedro Luis Crystal. [address] [place], [place], [id number], [place]. tel:[phone] [facility], [address] [facility] [address], [place], [place], [address], [place] tel:[phone] [place] No Information 3 Raffaele Alfonso. [address], [place], [id number], [place]. tel:[phone] [facility], [address], [place], [place], [id number], [place] tel:[phone] [place] Encounter for rehabilitation evaluationChronic bilateral low back pain, unspecified whether sciatica presentOther chronic painPain of both shoulder jointsPain in left shoulder 2- 3 Ren Ruelas. [address] [place], [place], [address], [place]. tel:[phone] [facility], [address], [place], [place], [address], [place] tel:[phone] [place] Other lack of coordinationChronic midline low back pain, unspecified whether sciatica presentOther chronic pain 3 Ren Ruelas. [address] [place], [place], [address], [place]. tel:[phone] [facility], [address], [place], [place], [address], [place] tel:[phone] [place] Other lack of coordination Aug-2 2 Ren Ruelas. [address] [place], [place], [address], [place]. tel:[phone] [facility], [address], [place], [place], [id number], [place] tel:[phone] [place] Other chronic painOt her lack of coordination Aug- 2 Ren Ruelas. [address] [place], [place], [address], [place]. tel:[phone] [facility], [address], [place], [place], [id number], [place] tel:[phone] [place] Other lack of coordinationChronic bilateral low back pain, unspecified whether sciatica presentOther chronic pain Dec-2 - 2 Ren Ruelas. [address] [place], [place], [address], [place]. tel:[phone] [facility], [address], [place], [place], [address], [place] tel:[phone] [place] Muscle weakness (generalized) Dec-2 0-202 2 Ren Jessenia. [address] [place], [place], [address], [place]. tel:[phone] [facility], [address], [place], [place], [address], [place] tel:[phone] [place] Oropharyngeal dysphagia Dec-1 4-202 2 Caselden Sofiya. [address] [place], [place], [address], [place]. tel:[phone] [facility], [address], [place], [place], [address], [place] tel:[phone] [place] Other lack of coordination Dec-1 3-202 2 Renbettye Ruelas. [address] [place], [place], [address], [place]. tel:[phone] [facility], [address], [place], [place], [id number], [place] tel:[phone] [place] Other lack of coordination Dec-0 8- 2 Ren Jessenia. [address], [place], [place], [address], [place]. tel:[phone] [facility], [address], [place], [place], [id number], [place] tel:[phone] [place] Oropharyngeal dysphagia Dec-0 7- 2 Caselden Sofiya. [address], [place], [place], [address], [place]. tel:[phone] [facility], [address], [place], [place], [address], [place] tel:[phone] [place] Alteration in performance of activities of daily living Dec-0 6-202 2 Ren Jessenia. [address] [place], [place], [address], [place]. tel:[phone] [facility], [address], [place], [place], [id number], [place] tel:[phone] [place] OV (chief complaint) DM type 2 with diabetic peripheral neuropathyLong term (current) use of insulinLong-term (current) use of injectable non-insulin antidiabetic drugs Dec- 2 Pedro Luis Crystal. [address] [place], [place], [address], [place]. tel:[phone] [facility], [address] [facility] [address], [place], [place], [address], [place] tel:[phone] [place] Alteration in performance of activities of daily living 2 Ren Ruelas. [address] [place], [place], [address], [place]. tel:[phone] [facility], [address] [facility], [place], [place], [address], [place] tel:[phone] [place] snf (current) use of insulin 2 Raffaele Alfonso. [address], [place], [address], [place]. tel:[phone] [facility], [address] [facility], [place], [place], [id number], [place] tel:[phone] [place] Encounter for rehabilitation evaluation 2 Ren Ruelas. [address] [place], [place], [address], [place]. tel:[phone] [facility], [address] [facility], [place], [place], [address], [place] tel:[phone] [place] Dysphagia, unspecifi ed typeFeeding difficultiesEncounter for nutritional assessment 2 Normile Dia. [address] [place], [place], [id number], [place]. tel:[phone] [facility], [address] [facility] [address] [facility], [place], [place], [address], [place] tel:[phone] [place] Other chronic pain 2 Uribe Lynette. [address], [place], [id number], [place]. tel:[phone] [facility], [address], [place], [place], [address], [place] tel:[phone] [place] PHV (chief complaint) Bilateral shoulder pain, unspecified chronicity 2 Pedro Luis Bonilla. [address] [place], [place], [id number], [place]. tel:[phone] [facility], [address], [place], [place], [address], [place] tel:[phone] [place] Other chronic pain 2 Mcdermott Lucita. [address] [place], [place], [address], [place]. tel:[phone] [facility], [address] [facility], [place], [place], [address], [place] tel:[phone] [place] Difficulty in walkin g, not elsewhere classifiedOther chronic pain 2 Uribe Lynette. [address], [place], [address], [place]. tel:[phone] [facility], [address] [facility], [place], [place], [address], [place] tel:[phone] [place] No Information 2 Raffaele Alfonso. [address], [place], [id number], [place]. tel:[phone] [facility], [address], [place], [place], [address], [place] tel:[phone] [place] Difficulty in walkin g, not elsewhere classifiedOther chronic pain 2 Uribe Lynette. [address], [place], [id number], [place]. tel:[phone] [facility], [address], [place], [address], [place] tel:[phone] [place] Muscle weakness (generalized) 2 Ren Ruelas. [address] [place], [place], [address], [place]. tel:[phone] [facility], [address], [place], [place], [address], [place] tel:[phone] [place] Difficulty in walkin g, not elsewhere classifiedOther chronic painMuscle weakness (generalized) 2 Uribe Lynette. [address], [place], [address], [place]. tel:[phone] [facility], [address], [place], [place], [address], [place] tel:[phone] [place] Chronic bilateral lo w back pain, unspecified whether sciatica presentOther chronic pain 2 Baldemar Landrum. [address], [address], [place]. tel:[phone] [facility], [address] [facility] [place] [address], [id number], [place] tel:[phone] [place] Difficulty in walkin g, not elsewhere classifiedOther chronic pain 2 Uribe Lynette. [address], [place], [address], [place]. tel:[phone] [facility], [address], [place], [place], [address], [place] tel:[phone] [place] Other chronic painMuscle weakness (generalized) 0 2 Uribe Lynette. [address], [place], [address], [place]. tel:[phone] [facility], [address], [address], [place] tel:[phone] [place] Chronic bilateral lo w back pain, unspecified whether sciatica presentOther chronic painPain of both shoulder jointsPain in left shoulder Sep-2 2 Ren Jessenia. [address] [place], [address], [place]. tel:[phone] [facility], [address] [facility] [facility], [place], [place], [address], [place] tel:[phone] [place] Other chronic pain Sep-2 2 Jojo Ojeda. [address] [place] [address], [place], [place], [address], [place]. tel:[phone] [facility], [address], [place], [place], [address], [place] tel:[phone] [place] Muscle weakness (generalized) Sep-2 2 Ren Jessenia. [address], [place], [place], [address], [place]. tel:[phone] [facility], [address] [facility] [address], [place], [place], [address], [place] tel:[phone] [place] Muscle weakness (generalized) Sep-2 2 Ren Ruelas. [address] [place], [address], [place]. tel:[phone] [facility], [address] [facility] [address] [facility], [place], [place], [address], [place] tel:[phone] [place] Chronic midline low back pain, unspecified whether sciatica presentOther chronic pain Sep-2 0 2 Baldemar Landrum. [address], [place], [place], [address], [place]. tel:[phone] [facility], [address] [facility] [address] [facility], [place], [place], [address], [place] tel:[phone] [place] OV (chief complaint) ÓSCAR (generalized anxiety disorder) Sep-2 0 2 Pedro Luis Crystal. [address] [place], [place], [address], [place]. tel:[phone] [facility], [address] [facility], [place], [place], [address], [place] tel:[phone] [place] Chronic midline low back pain, unspecified whether sciatica presentOther chronic pain Sep-1 2 Baldemar Landrum. [address] [place], [address], [place]. tel:[phone] [facility], [address] [facility] [address] [facility], [place], [place], [address], [place] tel:[phone] [place] Muscle weakness (generalized)Mild cognitive impairment, so stated Sep-1 2 Ren Jessenia. [address] [place], [place], [address], [place]. tel:[phone] [facility], [address] [facility], [place], [place], [address], [place] tel:[phone] [place] No Information Sep-1 2 Pedro Luis Crystal. [address] [place], [place], [address], [place]. tel:[phone] [facility], [address] [facility], [place], [place], [id number], [place] tel:[phone] [place] No Information Sep-0 2 Pedro Luis Crystal. [address] [place], [place], [id number], [place]. tel:[phone] [facility], [address] [facility], [place], [place], [address], [place] tel:[phone] [place] Encounter for rehabilitation evaluationChronic bilateral low back pain without sciaticaOther chronic pain Sep-0 8 2 Baldemar Landrum. [address] [place], [address], [place]. tel:[phone] [facility], [address] [facility] [address] [facility], [place], [place], [address], [place] tel:[phone] [place] Muscle weakness (generalized) Sep-0 2-202 2 Ren Jessenia. [address], [place], [address], [place]. tel:[phone] [facility], [address], [place], [place], [address], [place] tel:[phone] [place] No Information 2 Pedro Luis Crystal. [address], [place], [place], [address], [place]. tel:[phone] [facility], [address], [place], [place], [address], [place] tel:[phone] [place] Encounter for rehabilitation evaluationMuscle weakness (generalized) 2 Ren Jessenia. [address], [place], [place], [address], [place]. tel:[phone] [facility], [address], [place], [place], [address], [place] tel:[phone] [place] Encounter for nutritional assessment 2 Waldemar Hammera. [address], [place], [address]. tel:[phone] [facility], [address] [facility] [address], [place], [place], [address], [place] tel:[phone] [place] Encounter for rehabilitation evaluation 2 Ren Ruelas. [address], [place], [place], [address], [place]. tel:[phone] [facility], [address], [place], [place], [address], [place] tel:[phone] [place] Encounter for rehabilitation evaluation 2 Baldemar Landrum. [address], [place], [place], [address], [place]. tel:[phone] [facility], [address], [place], [place], [address], [place] tel:[phone] [place] Herpesviral vesicula r dermatitis 2 Pedro Luis Crystal. [address], [place], [place], [address], [place]. tel:[phone] [facility], [address] [facility] [address] [facility], [place], [place], [address], [place] tel:[phone] [place] Encounter for genera l adult medical examination without abnormal findingsEssential (primary) hypertension 2 Pedro Luis Bonilla. [address] [place], [address], [place]. tel:[phone] [facility], [address] [facility] [address], [place], [place], [address], [place] tel:[phone] [place] PEE (chief complaint) Hypertension, unspecified typeHypercholesteremiaD M type 2 with diabetic peripheral neuropathyLong term (current) use of insulinGastroesophageal reflux disease, unspecified whether esophagitis presentGenital herpes simplex, unspecified siteBipolar 1 disorderHypothyroidism, unspecified typeGAD (generalized anxiety disorder)Schizophrenia, unspecified typeTremor 2 Pedro Luis Crystal. [address], [place], [place], [address], [place]. tel:[phone] [facility], [address] [facility], [place], [place], [address], [place] tel:[phone] [place] Hypertension, unspecified typeHypercholesteremiaD M type 2 with diabetic peripheral neuropathyHypothyroidis m, unspecified typeHerpesviral infection, unspecified 2 Dorothea Day. [address], [place], [place], [address], [place]. tel:[phone] [facility], [address] [facility] [facility], [place], [place], [id number], [place] tel:[phone] [place] Medication course changed 2 Dorothea Day. [address], [place], [id number], [place]. tel:[phone] [facility], 1 [facility], [place], [place], [id number], [place] tel:[phone] [place] No Information 2 Raffaele Alfonso. [address] [place], [place], [id number], [place]. tel:[phone] [facility], 1 Pending sale to [facility] [address], [place], [place], [id number], [place] tel:[phone] [place] Intake (chief complaint) Encounter for general adult medical examination without abnormal findings 2 Raffaele Alfonso. [address] [place], [place], [id number], [place]. tel:[phone] Family History Family Member Type Diagnosis Age At Onset No Information Immunizations Vaccine Date Status Comments Fluzone Quad administered [facility] e: New Immunization Record Payers Payer name Insurance type Covered green party ID Socrates lee(s) [place] [id number] [place] [id number] Social History Type Description Quantity Date Captured Comments Sex Female Smoking Status No Information Chief Complaint And Reason For Visit No Information Plan Of Treatment Date Type Action Status Referral Ordered: Physical Therapy -Therapies/Rehabilitation (related to Right-sided low back pain with right-sided sciatica, unspecified chronicity) ordered Referral Referred To: Physical Therapy Ordered: Referrals: Therapies/Rehabilitation. Physical Therapy. Consult ordered Referral Ordered: Referrals: [facility] [place] [facility] [place]ment date/timeframe: 12/29/2022 ordered Referral Ordered: Referrals: Gynecology Appointment date/timeframe: 07/31/2022 ordered Referral Referred To: Bonilla ARCINIEGA [address] [place], [place], [phone] Ordered: Referrals: Internal Medicine. Bonilla ARCINIEGA Appointment date/timeframe: 05/13/2023 ordered Referral Referred To: Bonilla ARCINIEGA [address] [place], [place], [phone] Ordered: Referrals: Cardiology. Bonilla ARCINIEGA Appointment date/timeframe: 10/21/2022 ordered Aug-15-2022 Referral Referred To: Bonilla ARCINIEGA [address] [facility] [place], [phone] Ordered: Referrals: Rheumatology. Bonilla ARCINIEGA Appointment date/timeframe: 04/16/2023 ordered Referral Referred To: Bonilla ARCINIEGA [address] [facility] [place], [phone] Ordered: Referrals: Dentistry. Bonilla ARCINIEGA Appointment date/timeframe: 12/17/2022 ordered Referral Referred To: Bonilla ARCINIEGA [address] [facility] [place], [phone] Ordered: Referrals: Podiatry. Bonilla ARCINIEGA ordered Referral Referred To: Bonilla ARCINIEGA [address] [place], [place], [phone] Ordered: Referrals: Gastroenterology. Bonilla ARCINIEGA Appointment date/timeframe: 04/09/2023 ordered Referral Referred To: Bonilla ARCINIEGA [address] [place], [place], [id number] Ordered: Referrals: Site Acquisition Specialist. Bonilla ARCINIEGA ordered Referral Ordered: Referrals: Gynecology. Consult Appointment date/timeframe: 04/30/2022 ordered Future Order: Radiology Order Hi p X-ray; Unilateral, with Pelvis X-ray (2-3 views) ([id number]), Ordered on: Ordered Future Order: Radiology Order TT E Combined, 2D image, spectral Doppler, color flow image ([id number]), Ordered on: Ordered Future Order: Lab Order QUANTIFE KARLEY(R)-TB GOLD PLUS, 1 TUBE ([id number]), Ordered on: Ordered History Of Present Illness Encounter Date Complaint History Of Prese nt Illness Lower extremity edema Comments: Ppt se en for an acute visit for concerns of chronic bilateral lower extremity swelling. She is seen with WAYNE Loomis and interpretation was kindly provided by Lisa Padgett MA. Ppt notes that she has had bilateral LE swelling for a long time and is hoping for a comprehensive plan for management. PN noting that specialized compression stockings are ordered and we are pending receipt. Ppt notes that the swelling improves when she elevates her legs with a trace amount remaining in bilateral feet. She notes that she has pain in her feet as well. She denies any shortness of breath, chest pain, inability to lay flat. She notes she had seen cardiology and as told that her heart was fine . PN to investigate further. Ppt notes that Tylenol is helpful for the pain, this provider recommended scheduling it, ppt agreed and prescription was sent to pharmacy. Ppt also given muscle rub to place on feet for pain. Recommended compression and to continue elevation.Ppt also notes she woke up a few days ago with R hip pain that radiates down her leg, notes it is all the time, sitting helps and prolonged walking makes it worse. She denies any trauma or injury, just noting she woke up one day and the pain was there. She also notes Tylenol is working. She is agreeable to a R hip xray at the site with [facility] when they are able to come in. Ppt was readback the plan, asked if any further concerns, if she agreed with the plan or had anything she wanted differently. Ppt was satisfied with the visit.Duration of visit: 45min OV Comments: Partic ipant is being examined during the COVID- Pandemic. Appropriate precautions were used given CDC recommendations and available resources. Ppt seen for an acute follow up. Noted to have had a good weekend per calls kindly placed by online publisher nursing. Ppt noted to be doing well, sleeping okay. Ppt noted to have not slept at all the night before, citing that she feels her legs are uncomfortable, noting not pain but aching/tingling. She notes it improves with dangling her legs. She notes it only happens at night. Ppt is willing to try compression stockings. Muscle rub provided.This provider asking ppt if there is any racing thoughts causing issues with sleeping, ppt declined.Ppt noted to have marked improvement in LE edema as she has changed her footwear. She notes she is elevating her BLE. Comments: Partic ipant is being examined during the COVID-19 Pandemic. Appropriate precautions were used given CDC recommendations and available resources.Ppt seen on request of social media director who was concerned ppt may be having a shiraz episode. Ppt was roomed and provider was notified at 1:45pm. Upon entering, ppt was speaking with social media director. Translation was kindly provided by line welder on site. This provider checked with ppt, who notes she has been having difficulty sleeping, but notes this is a chronic issue. She denies any chest pain, palpitations. She does not recall med changes that occurred per at previous psychiatry visit, these were discussed. At this time, [facility] staff walked in noting ppts ride had arrived for 2pm and there is no ability to delay. This provider was unable to perform further HPI, ROS and had to perform a limited exam.Based on this providers limited exam and the information provided by staff who know her, she appears to be at baseline. Ppt denies SI/HIVM left with ppts prescriber at [facility]. Recommended that ppt come back to see PCP on Thursday to check in regarding symptoms. This was relayed to . OV RAJENDRA BESSIE FOREMAN RAJENDRAHPI__62__ year old __female___Lives @ apt Ambulates with walker Diet is unchanged MOLST changes - noneMedications reviewedDiagnoses reviewed Injuries/Illness/Hospitalizations - seen in the ED This fall for pain in multiple joints, there was no significant findings and the ppt was xfer home on prednisone. She was seen in the clinic after and tx with ongoing conservative care. BIPOLAR / ÓSCAR / [facility] counseling is still being utilizedSees counseling every thursdayClonazepam, Haldol, Depakote, trazodone [id number] 7.0% -> 7.9 this fall currently using lantus 48u SC QD and humalog SSitrulicity was addedlabs pending ppt self dcd CGMPOC was 180 this AMALLERGIES No changes vs nextgen OV DRRL OV 10/16/22 FOOT PAINHPIppt seen in clinic today for pain in the L foot YesterdayNo falls or trauma It started hurting and can't stand up well She describes the whole foot hurting She is using APAP and ICE For it. Currently the pain is the same as when it startedDenies hx of gout This has never happened before.No shooting pain down the legNo low back painROS No N V F CNo Rash or lesionsSee HPI for morePEMSK L FOOT no edema no erythema no increased warmth no lesions or wounds. Cap refill <2sec, sensation in tact throughout. DP pulse (+)2. Skin warm pink and moist. EHL FHL flexion extension intact. Plantar and dorsi-flexion intact. No pain to palpation of the plantar surface or compression of the metatarsals. No pain on compression of the distal tib-fib. Able to range ankle completely. No pain on palpation of ligamentous attachments of the bilaterally malleoli. Ppt able to weight bear and walk forwards and backwards with walker (uses this at baseline). R FOOT wnlSKIN warm intact no lesions (see MSK) OV D R R L OFFICE V ISITHPIBACKGROUNDPpt being seen in clinic todayCarries dx of T2FYWfvwcjhuf treated with Humalog SSI and Lantus She is monitored with CGMRecently she had labs drawn A1c: (04/24/22) 7.0 -> (08/21/22) 7.9We are meeting today to discuss adding trulicity to her regimen She comes to the SE day program multiple days a week and could receive the med here--CURRENTLYLily translatesI describe the medication and treatment planThe ppt is agreeableROSno N V F Cno polydipsia or polyuriaNo abd pain or stool changesPEGEN female appearing age in NAD nontoxic appearingLUNGS ctabHEART rrr (+)[id number] soft NTEXT no edema soft and NT PHV BESSIE INDERJIT RIVER A AHSAN PHVHPIPPt seen in clinic today for PHVShe was seen in the emergency dept No records available prior to visitIt appears she was seen at [place] ED for pain yesterday Pain is in the hips, shoulders they did xrays and everything looks good It appears that toradol was given and pred x5d on dischargeThis is the same pain she always hasWhen asked what she normally does for this pain she reports: I do the exercises they gave me here referring to SEShe reports she didn't do them this timeShe reports she was able to sleep last nightShe just started her 5d pred burst this AMROSno F C N V No CP SOBNo traumaNo bug bites or rashesPEGen female appearing her age in NADMSK she moves freely about the room with a walker, she is able to push up from the chair with both arms multiple times without outward pain or immobility. She easily performs SLR bilaterally. Her neck has full ROM. There is no midline or paraspinal TTP. There is no obvious or palpable deformity of the traps, Cspine, Tspine. Skin no rash, bullseye, target, bullae, no erythema or edemaNeuro handgrip 5/5, upper ext 5/5, traps intact and equal bilaterally. OV BESSIE FOREMAN OVHPIIsha translates She is seen in clinic today Ppt with hx of Bipolar, ÓSCAR, SchizophreniaHistorically rx by psychiatrist in [place] Currently klonopin, Depakote, Haldol, trazodoneShbettye is a patient at [facility] recently moved into her own apartment She reports she likes it She was reported as having increased anxiety yesterdayLiliy translates Ppt reports she feels better today vs yesterday Yesterday she had palpitations None since thenThese happen from kqxq-vo-dizjVITALS HR - 8202 - 96RR - 18BP - 142/80ROSno N V F C CP SOBno ABD PAIN diarrheano cough or difficulty swallowingno rashno palpitations todayPEFemale appearing her ageSpeaks Cayman Islander translated by [place] RNNADMood stableAffect mildly distrustingSpeaks fluidly Answers are appropriateHEART RRR (+)f6j8Mtvkg CTABExt with trace pedal edema bilaterallyNontoxic appearing LABSDPA - 50.7 TSH - 1.94 PEE HPI_62 ___ year old ___female__[place] with sisterMedications reviewedDiagnoses reviewed Hospitalizations - no significant BIPOLAR/SCHIZOPHRENIA/ÓSCAR counseling/therapy once a weekrx by psychiatrist in [place] hasn't met with a prescriber heremodd affect stable no symptoms nowHLDReports she was on a medication but her doctor took it awayThey "never gave it back Would be agreeable to starting againTHYROIDLast labs were normal so her PCP took it awayCurrently her labs are normalShe does not want to restart unless she has znJ2BPLlmdls 48u SC JEANINE Lea reports no hospitalizations 2nd to [id number] opto referral and podiatry referralDenies any wounds on the feetGERDWhen taking the medication im fine No issuesHEALTH MAINTENANCE Dental - needs referralVision - two years since last visit Mammography - last was in March and it was good Colonoscopy - years ago, great than 5 years ago, would like to have one done Intake Patient is seen today for intake. She is accompanied by her sister, Nicky and her niece Leah Whitten. Niece provides the bulk of the history.In brief, patient is a 62-year-old woman with a history of significant mental health challenges. Her apparently last year. She was residing in [place]. She had a number of hospitalizations and there was a tentative plan to place her in long-term care however, her niece and sister intervened and brought her to [place].The patient initially lived with her niece however that did not quite taylor out and she is now living in a studio apartment in [place] with her Sister Nicky. There are pending applications for either a 2 bedroom apartment for the 2 of them to live together or a 1 bedroom for the prospect to live and with the sister living in the same complex. At this point, sister assists her with all necessities. There is a tentative plan for 25.5 hours from [facility] however this has not started or been finalized, per the niece.Community physicians currently: Primary CARE: [phone]:Dr. Torito OrellanaW[place] podiat[facility] [phone]:[facility] Nydia Muhammad[address] [place], [place] [phone] as psychiatrist however, is PhD psychologist, I am not sure who is prescribing psychiatric medicationsTimi Ibrahim, PhDSteward Health Care [phone]: Mary Jalloh/[phone]:Dr. Rajendra [facility] llpmpunxebajj28 [facility] [place]. [phone]:Jaz [address] Streethilda [phone] listedMedications listedPharmacy listedPast medical history and past surgical history listed, apparently had labial cyst or the like in the past and it is recurrent1 of the hospitalizations in [place] has dementia listed as a contributory diagnosis, I am unclear if this is correctRecent hospitalizations:82/-05/23/21: [facility], seemingly psychiatric10/09/21-10/16/21:[facility]-danger to self, schizophrenia, dementia10/18/21-11/13/21: [facility], lactic acidosis, flank pain, shortness of breath, seemingly followed by a psychiatric admission12/02/21-12/17/21 [facility]:Delusions/hallucinations/disorientationPa tient uses a 4 wheeled walker. She is often incontinent. She has chronic pain of the shoulders, hips. She takes Tylenol but does not find it helpful. She has a tremor and is not able to dress herself. She requires assistance for all ADLs aside from feeding herself.She has her own teeth, wears glasses, does not have a pacemaker, denies dysphagia. She has had 2 falls in the past several months. She has had persistent pain in shoulders and hips seemingly after her fall. She has had approximately a 20 pound weight loss although not clear over what time periodShe requires assistance with her fingersticks and insulin administration. Medications are placed in a pillbox by her niece.Quite young woman with a high degree of debility, very significant psychiatric illness. Receives quite a bit of help from her sister and would require ongoing high level of assistance to remain in the community. Her ability to cope with insulin/fingersticks and hypoglycemia are of concern. Her frequent hospitalizations are certainly of concern. She describes appreciable pain that is not well controlled with Tylenol. Unclear precisely what this is and how this would be addressed Instructions Date Instruction Additional Infor chava bilateral 2+ pitting edema noted from feet to knees. No overt signs of heart failure (lungs CTAB, no shortness of breath on exertion or when laying flat). PN noted that cardiology had referred ppt to TTE, which ppt did not go to. It is worth noting that a cardiac nuclear test is ordered in the chart from 12/31/22- Compression stockings pending- Continue elevation- House muscle rub for foot pain- Tylenol 650mg TID stephania- Pending completely cardiology notes- TTE ordered, ppt is agreeable to imaging Related to Localized edema ppt noting this happ ens mostly at night, only improving with moving her legs and dangling legs. DDX includes RLS vs PADPN to perform ABIs and then evaluate for compression stockingsMuscle rub provided to put on legs prior to sleep to see if that helps with symptoms Related to Leg cramps 1+ edema in bilatera l lower extremities, much improved from Thursdayppt is elevatingalso recommended compression stockings, which PN will arrange Related to Localized edema concern from SW that ppt is wide awake and speaking quickly. This provider was only given a brief time to get history and to examine ppt. Collateral was obtained from OTIS, who has known ppt for a while. She notes that ppts speed of conversation and overall affect appears to be at baseline. Noted that [facility] reduced her clonazepam to day, discontinued haloperidol and started amitriptyline. Discussion with SW after meeting, noting that the primary acute care occupational therapist (cyndi) would like to stop the amitriptyline, given concern for changes in altered mental status.This provider recommended to halve for 7 days and then discontinue. This was relayed by social media director.Safety questions were completed with ppt, denying any SI/HI, notes her depression/anxiety is stable. Feels safe to go home and to follow up on Thursday Related to Bipolar 1 disorder debrox in SE program s5zus-oraf as needed canal still patent - ppt concerned and wanted tx Related to Excessive cerumen in left ear canal not tremulousness on exammonitor for EPS/tremors given use of psychoactive medsno changes at this timere-eval as needed Related to Tremor no edema todaycont e levationre-eval as needed Related to Edema, unspecified type levothyoroxine stopp ed in sep 11 nekavitha reported it was dcd by specialisttrend TSH T4 today and re-eval as needed Related to Hypothyroidism, unspecified type trulicity 0.75mg Qweek Related t o Long-term current use of injectable noninsulin antidiabetic medication no symptomsabd exam benigntaking PPI for GI ppx with good effectre-eval as needed Related to Gastroesophageal reflux disease without esophagitis truliticty addedcont inues with humalog and basal insulinself dcd CGM - using POCs at [id number] fasting this [facility] referrals to opto and poda1c and labs t odaytitrate up trulicity if neededeval ongoing Related to Type 2 diabetes mellitus without complication, with long-term current use of insulin lantus and humalog see T2DM Rela quentin to snf current use of insulin cont STATINlipid taylor el today eval ongoing Related to Hypercholesteremia continue norvasc, ze stril, HCTZtrend routine labs and vitalsadjust mgmt as neededvitals checked during SE program and remain stable Related to Hypertension, unspecified type cont [facility] and mood at baseline cont current medication regimen (see Bipolar)eval ongoing Related to ÓSCAR (generalized anxiety disorder) mood affect stablefo llowed by [facility] Counselingcont haldol, depakote and prn klonopineval ongoing Related to Schizophrenia, unspecified type mood affect stablefo llowed by [facility] CounselingEKG this week forp Qtc cont haldol, depakote and prn klonopineval ongoing Related to Bipolar 1 disorder -one day of foot jules n-exam very benign (please see note, exam exhaustive)-able to weight bear and neurovasc intact distally -very low suspicion: fx/dislocation, strain/sprain, infectious etio, ischemia, gout/inflamm etio, radicular etio-cont ICE and APAP-if pain continues will consider Xray but fx/disloc given lack of trauma, ability to weight bear, and very benign exam, fracture/dislocation very very low suspicion Related to Left foot pain lantus and humalog see T2DM Rela quentin to snf (current) use of insulin a1C 7.0% -> 7.9curre ntly using lantus 48u SC QD and humalog SSiwill add trulicity to be admin @ day programtitrate up as neededcont to trend sugars via CGM at [facility] at [facility] far as periph neuropathy:ppt followed by podiatry - no cnew concerns or complaints from ppteval ongoing Related to DM type 2 with diabetic peripheral neuropathy ppt seen in ED For s hofelix and hip painsans traumaxrays were normal per ptt (no records available to this provider)they gave her toradol x1 with helpand started pred burst this AMshe reports she slept last night her exam is completely benignher mobility is intact she shows no outward signs of pain with any movement educated that pred burst will take 24-48 hours for effectwe will start brandy torres creamAPAP prnand ice packs at homeshe will come back to the clinic if not improved Related to Bilateral shoulder pain, unspecified chronicity mood affects stablen o complaints (stated yesterday) as of todayvitals and exam benign NADpt will have appt made today at [facility] Counseling by dexter is agreeable to this planshe will continue to come to day program M-Fno changes at this time cont current medication mgmt eval ongoing Related to ÓSCAR (generalized anxiety disorder) not tremulousness on exammonitor for EPS/tremors given use of psychoactive medsno changes at this timere-eval as needed Related to Tremor 04/25/22TSH 1.94 (wnl) levothyroxine 25mcg QDwill continue to trend labs routinely and adjust mgmt as needed Related to Hypothyroidism, unspecified type mood affect stablept has no questions or concerns regarding psych dxfollowed by [facility] Counselingmsg left for info on upcoming appt and name of prescriberEKG pending tomorrow for Haldol use and baseline QTcdepakote lvl wnl @ 50.4cont haldol, depakote and prn klonopineval ongoing Related to ÓSCAR (generalized anxiety disorder) mood affect stablept has no questions or concerns regarding psych dxfollowed by [facility] Counselingmsg left for info on upcoming appt and name of prescriberEKG pending tomorrow for Haldol use and baseline QTcdepakote lvl wnl @ 50.4cont haldol, depakote and prn klonopineval ongoing Related to Schizophrenia, unspecified type mood affect stablept has no questions or concerns regarding psych dxfollowed by [facility] Counselingmsg left for info on upcoming appt and name of prescriberEKG pending tomorrow for Haldol use and baseline QTcdepakote lvl wnl @ 50.4cont haldol, depakote and prn klonopineval ongoing Related to Bipolar 1 disorder chronic dxfollowed b y GYNtakes antiviral for flare upsno pain or lesions at this timeno questions or concernsre-eval as neededfollowup CLERICAL AIDE consult summary as indicated Related to Genital herpes simplex, unspecified site no symptomsabd exam benigntaking PPI for GI ppx with good effectre-eval as needed Related to Gastroesophageal reflux disease, unspecified whether esophagitis present 04/25/22a1C 7.0%BUN/Cr -- 0.88/74currently using lantus 48u SC QDwill trend CMP and w5nKnefx as needed for hypoglycemiafoot exam with decrease in monofilament examotherwise foot exam wnlwill consult podiatry, optometry eval ongoing Related to DM type 2 with diabetic peripheral neuropathy 04/25/22a1C 7.0%BUN/Cr -- 0.88/74currently using lantus 48u SC QDwill trend CMP and m2pYruxk as needed for hypoglycemiafoot exam with decrease in monofilament examotherwise foot exam wnlwill consult podiatry, optometry eval ongoing Related to snf (current) use of insulin 04/25/22AST/ALT 8/10 ( wnl)TChol 238 (elev)HDL 78 (wnl)LDL 109 (elev)TGs 360 (elev)pt's statin was stopped but she would like to restartwill start at lipitor 10mg QHS and trend lipid panel/LFTs routinely Related to Hypercholesteremia AVSS todayBUN/Cr -- 0.88/24Na/K -- 137/4.3continue norvasc, zestril, HCTZtrend routine labs and vitalsadjust mgmt as needed Related to Hypertension, unspecified type Assessments Type Assessment Date No Information Goals Health Concern Goal Type Priority Status Date Risk for functional decline related to neck & back pain, (B) shoulder pain, (R) hand tremor Bessie will remain at current level of functioning (independent with mobility, 1 assist with ADL'S) through next review Patient Goal New Bessie is at risk for aspiration due to oropharyngeal dysphagia secondary to anxiety, depression, bipolar and schizophrenia. Bessie will utilize safe swallowing strategies independently while tolerating least restrictive diet with no signs or symptoms of dysphagia. Patient Goal Complete Bessie has depression related to feelings of loneliness and anxiety. Bessie will identify coping strategies, and utilize these strategies during increased feelings of depression. Patient Goal Continued Bessie is at risk for suicide due to d/x of schizophrenia and bipolar I. Bessie will not experience suicide, have any suicide attempts, or hospitalizations for the next 6 months. Patient Goal Continued Bessie is at risk for skin breakdown related to urinary incontinence . Skin will remain free from breakdown for 6 months. Patient Goal Continued Self care deficit related to anxiety, depression, bipolar and schizophrenia Bessie will remain at the current level of function for 6 months. Patient Goal Continued Bessie is at risk for retirement placement related to schizophrenia and bipolar I d/x . Bessie will continue to live in the community environment with support from [facility] and family for 6 months. Patient Goal Entered in error Bessie is at risk for retirement placement related to schizophrenia and bipolar I d/x . Bessie will continue to live in the community environment with support from [facility] and family for 6 months. Patient Goal Continued Bessie is at risk for complications related to diabetes. Bessie will not experience any medical complications or hospitalizations, related to diabetes and A1C will be reduced or remain stable, as determined by the provider, for 6 months. Patient Goal Continued Impaired verbal communication related to language barrier- patient is [place] speaking Bessie will continue to function in her current environment, have her medical needs met, and maintain current level of social interactions through next review. Patient Goal Continued
--- NOTE | ~2025-08-12 | CT_ITS ---
CLINICAL HISTORY: dizziness CT head without contrast Comparison: CT/REG/SR - CT HEAD/BRAIN WO IV CON - 04/10/25 19:29 EDT Findings: No intra-axial mass, midline shift, hydrocephalus, or acute hemorrhage. Mild heterogeneous low attenuation in the periventricular white matter. There is no sinus or mastoid fluid. The orbits are within normal limits. No skull fracture. IMPRESSION: 1. Mild chronic periventricular microvascular ischemic disease. 2. No acute intracranial findings. This document has been electronically signed by: Hector Montano MD on 08/12/2025 17:54:42
--- NOTE | ~2025-08-12 | XR_ITS ---
CLINICAL HISTORY: generalized weakness 1 view chest x-ray Comparison: CR/[place]/SR - XR CHEST 2V - 03/21/25 09:57 EDT Findings: The lungs are clear. Heart size is normal. No acute fracture. IMPRESSION: 1. No acute findings. This document has been electronically signed by: Hector Montano MD on 08/12/2025 17:17:13
--- NOTE | 2025-08-12 14:47 | ECG_ITS ---
Test Reason : DIZNESS Blood Pressure : */* mmHG Vent. Rate : 80 BPM Atrial Rate : 80 BPM P-R Int : 142 ms QRS Dur : 110 ms QT Int : 352 ms P-R-T Axes : 37 -19 161 degrees QTcB Int : 405 ms Artifact in tracing Normal sinus rhythm Moderate voltage criteria for LVH, may be normal variant ( R in aVL , [place] product ) Nonspecific T wave abnormality Abnormal ECG When compared with ECG of 10-Apr-2025 19:22, Nonspecific T wave abnormality now evident in lateral leads Referred By: Generic ED Physician Electronically Signed By: ERIC CARDOZO
[2025-08-12 14:53] LABS: Glucose, Whole Blood 112 mg/dL (60-115)
[2025-08-12 15:22] VITALS: BP 179/71; PULSE 76; RESP 16; TEMP 36.9; O2SAT 99; BMI 31.1
--- OUTSIDE RECORDS SUMMARY | 2025-08-12 15:30 | XMS_ITS | Patient Health Record ---
Author Organization - [facility] Address [address] [place] [address] Care Team Providers Care Railroad Worker Name Role Phone Pallavi CarrilloJersey Unavailable [phone] CHARIRIAEN Unavailable [phone] STACIA BENSON Unavailable [phone] SARA BENSON Unavailable [phone] BORA BLEVINS Unavailable [phone] Vy Leyva Unavailable [phone] Mignon Lucero Unavailable [phone] Allergies Allergen (clinical drug ingredient) Drug/Non Drug Allergy documented on EMR Reaction Allergy Type Onset Date Status Penicillin rash/ body swelling Drug Allergy Active Reason For Referral No Information Medications Medication SIG (Take, Route, Frequency, Duration) Notes Start Date End Date Status Benadryl Allergy 25 MG 1 tablet at bedtime as needed Orally Once a day As needed allergies 08/02/2024 Active Omeprazole 20 MG 1 capsule 1/2 to 1 hour before morning meal Oral Once a day; Duration: 28 days GERD Active Calcium + Vitamin D3 600-10 MG-MCG 1 tablet with a meal Orally Once a day supplement 08/02/2024 Active Trulicity 1.5 MG/0.5ML as directed Subcutaneous Fridays DM2 Active Metoprolol Succinate ER 25 MG 1 tablet Oral Once a day; Duration: 28 days HTN Active Acyclovir 400 MG 1 tablet Oral three times a day; Duration: 28 days HSV Active amLODIPine Besylate 5 MG 2 tablet =10 mg Oral Once a day; Duration: 28 days htn Not-Taking Vitamin C 500 MG as directed Orally supplement Active Atorvastatin Calcium 10 MG 1 tablet Oral Once a day; Duration: 28 days HLD Active Centrum Adults - as directed Orally supplement Active Furosemide 40 MG 1 tablet Oral Once a day; Duration: 28 days HTN/edema Active Thomson 3 1200 MG 1 capsule Orally Once a day supplement Active Lisinopril 20 MG 2 tablet Oral Once a day; Duration: 28 days HTN Active Trelegy Ellipta 200-62.5-25 MCG/ACT 1 puff Inhalation Once a day Active Amitriptyline HCl 10 MG 0.5 tablet at bedtime Oral Once a day; Duration: 28 days MDD Active Mapap 500 MG 1 capsule as needed Oral every 6 hrs; Duration: 30 days As needed pain Active NovoLOG FlexPen 100 UNIT/ML 10 units Subcutaneous three times a day w/ meal As needed ISS , uses of BG > 200mg/dL, DM2 Active rOPINIRole HCl 0.25 MG 4 tablet 1 to 3 hours before bedtime Oral Once a day; Duration: 28 days RLS Active Lantus SoloStar 100 UNIT/ML 48 units Subcutaneous Once a day DM2 Active Divalproex Sodium ER 500 MG 2 tablet Oral at night; Duration: 28 days MDD (denies bipolar dx) Active Tolterodine Tartrate ER 2 MG 1 capsule Oral Once a day; Duration: 28 days OAB Active predniSONE 10 MG 60mg for 14 days Oral Once a day finish tomorrow or 04/08 Active Senna Plus 8.6-50 MG 2 tablet as needed Orally Twice a day As needed constipation 08/02/2024 Active Social History Tobacco Use: Social History Observation Description Date Details (start date - stop date) Never Smoker NA - NA Tobacco Control (Standard) Question Answer Notes Tobacco use: Nonsmoker AUDIT-C (Standard) Question Answer Notes Did you have a drink containing alcohol in the p ast year? 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) use of insulin (Z79.4) Active confirmed Problem Essential hypertension (84808153) Essential hypertension (I10) Active confirmed Problem Chronic idiopathic constipation (20772843) Chronic idiopathic constipation (K59.04) Active confirmed Problem Hyperlipidaemia (46053190) Hyperlipidemia, unspecified hyperlipidemia type (E78.5) Active confirmed Problem Unsteady gait (34415489) Unsteady gait (R26.81) Active confirmed Problem Bilateral lower extremity edema (293084068) Bilateral lower extremity edema (R60.0) Active confirmed Problem Overactive urinary bladder (disorder) (682144021) OAB (overactive bladder) (N32.81) Active confirmed Problem Herpes simplex virus (83569802) HSV (herpes simplex virus) infection (B00.9) Active confirmed Problem Anxiety state (093647007) Anxiety disorder, unspecified type (F41.9) Active confirmed Problem Benign neoplasm of colon (71119308) Polyp of colon, unspecified part of colon, unspecified type (K63.5) Active confirmed Problem History of cataract extraction (666544920) Status post left cataract extraction (Z98.42) Active confirmed Problem Restless legs (86225483) RLS (restless legs syndrome) (G25.81) Active confirmed Problem Nephrolithiasis (54551716) Nephrolithiasis (N20.0) Active confirmed Problem History of cataract extraction (715055621) Status post right cataract extraction (Z98.41) Active confirmed Problem Kidney stone (23759504) Renal stones (N20.0) Active confirmed Problem Gallstones (214599107) Gallstones (K80.20) Active confirmed Problem Gastroesophageal reflux disease (disorder) (713782366) Chronic GERD (K21.9) Active confirmed Problem Recurrent major depression in full remission (55682957) Recurrent major depressive disorder, in full remission (F33.42) Active confirmed Problem History of gastrointestinal disease (272033212) H/O acute pancreatitis (Z87.19) Active confirmed Problem Myopathic gait (562457400) Myopathic gait (R26.89) Active confirmed Problem Primary osteoarthritis (481016517) Primary osteoarthritis involving multiple joints (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) Active confirmed Problem Cholelithiasis without obstruction (83111078) Biliary calculus of other site without obstruction (K80.80) Active confirmed Problem Pneumonitis (392774053) Pneumonitis (J98.4) Active confirmed Problem Obese class I (finding) (295928507785450) Obesity, Class I, BMI 30-34.9 (E66.811) Active confirmed Problem Intrahepatic sierra e duct stones (K80.50) Active confirmed Problem Unilateral headache on right side of head (finding) (3809812415) Right-sided headache (R51.9) Active confirmed Vital Signs Height-cm 165.1 cm 02/04/2025 Weight-kg 53.07 kg 02/04/2025 Height 65 in 02/04/2025 Weight 117 lbs 02/04/2025 BMI 19.47 kg/m2 02/04/2025 Procedures Procedure Date Ordered Date Performed Result Body Sit e DME-COMMODE 02/01/2025 N/A DME-Shower chair with back 02/01/2025 N/A DME-COMMODE 01/30/2025 N/A DME-Shower chair with back 01/30/2025 N/A DME-ROLLATOR 12/06/2024 N/A Encounters Encounter Location Date Provider Diagnosis - MD - [facility] [address] [place] [address] 09/26/2024 Vy Leyva - [place] - [facility] [address] [place] [address] 11/02/2024 Vy Leyva - [place] - [facility] [address] [place] [address] 11/29/2024 STACIA BENSON - [place] - [facility] [address] [place] [address] 12/28/2024 GLORIA MARCLEINO - [place] - [facility] [address] [place] [address] 01/13/2025 STACIA BNESON - [place] - [facility] [address] [place] [address] 01/26/2025 STACIA BENSON - [place] - [facility] [address] [place] [address] 01/30/2025 SARA BENSON H/O acute pancreatit is Z87.19 ; Gallstones K80.20 ; Intrahepatic bile duct stones K80.50 ; Renal stones N20.0 and Myopathic gait R26.89 - [place] - [facility] [address] [place] [address] 02/01/2025 BORA BLEVINS Essential hypertensi on I10 ; Hyperlipidemia, unspecified hyperlipidemia type E78.5 ; Chronic GERD K21.9 ; OAB (overactive bladder) N32.81 ; Chronic idiopathic constipation K59.04 ; HSV (herpes simplex virus) infection B00.9 ; RLS (restless legs syndrome) G25.81 ; Polyp of colon, unspecified part of colon, unspecified type K63.5 ; Primary osteoarthritis involving multiple joints M15.0 ; Bilateral lower extremity edema R60.0 ; Type 2 diabetes mellitus with diabetic polyneuropathy E11.42 ; Recurrent major depressive disorder, in full remission F33.42 ; Anxiety disorder, unspecified type F41.9 ; Nephrolithiasis N20.0 ; Biliary calculus of other site without obstruction K80.80 and Unsteady gait R26.81 - [facility] [address] [facility] [address] [place] [address] 02/04/2025 Mignon Jazmine Acute biliary pancreatitis, unspecified complication status K85.10 and Gallstones K80.20 - [facility] [address] [facility] [address] [place] [address] 03/27/2025 STACIA BENSON [facility] [address] [facility] [address] [place] [address] 04/06/2025 STACIA BENSON Pneumonitis J98.4 ; Right-sided headache R51.9 and Type 2 diabetes mellitus with diabetic polyneuropathy E11.42 - [facility] [address] [place] [address] 08/24/2024 Vy Leyva [facility] [address] [facility] [address] [place] [address] 09/29/2024 Vy Leyva [facility] [address] [place] [address] 10/11/2024 Vy Leyva [facility] [address] [facility] [address] [place] [address] 11/03/2024 Vy Leyva [facility] [address] [facility] [address] [place] [address] 11/08/2024 Vy Willson [place] - [facility] [address] [place] [address] 11/30/2024 STACIA Willson [place] - [facility] [address] [place] [address] 12/13/2024 STACIA Willson [place] - [facility] [address] [place] [address] 12/22/2024 STACIA BENSON - [place] - [facility] [address] [place] [address] 12/29/2024 STACIA BENSON - [place] - [facility] [address] [place] [address] 01/27/2025 STACIA BENSON - [place] - [facility] [address] [place] [address] 01/30/2025 STACIA BENSON - [place] - [facility] [address] [place] [address] 02/04/2025 STACIA Willson [place] - [facility] [address] [place] [address] 02/05/2025 STACIA BENSON - [place] - [facility] [address] [place] [address] 02/06/2025 STACIA BENSON - [place] - [facility] [address] [place] [address] 02/10/2025 STACIA BENSON - [place] - [facility] [address] [place] [address] 02/22/2025 STACIA BENSON - [place] - [facility] [address] [place] [address] 03/28/2025 STACIA BENSON - [place] - [facility] [address] [place] [address] 04/11/2025 STACIA BENSON - [place] - [facility] [address] [place] [address] 04/19/2025 STACIA BENSON - [place] - [facility] [address] [address] 06/14/2025 STACIA BENSON Assessments Encounter Date Diagnosis (ICD Code) Assessment Notes Treatment Notes Treatment Clinical Notes Section Notes 04/06/2025 Pneumonitis (ICD-10 - J98.4) Stable. F/u with pulmonology outpatient. No known dx of respiratory conditions. 04/06/2025 Right-sided headache (ICD-10 - R51.9) Stable. C/w medication regimen. F/u with Vascular surgery outpatient. 01/30/2025 Gallstones (ICD-10 - K80.20) Hospitalized 01/19-01/25 d/t acute pancreatitis, blood infection, gallstones, intrahepatic bile duct stones, and renal stones. Was seen by general surgeon at the hospital and no surgery was recommended. Member was treated conservatively w/ IVF and IV abx. She was discharged w/ oral abx, which she completed course yesterday. Per memebr she has passed renal stone, but gallstones, intrahepatic bile duct stones still present. No red flag s/s currently present. Saw PCP 01/27 and has GI f/u next month. Rec increas fluid intake, avoid foods high in uric acid, reviewed red flag s/s. 01/30/2025 H/O acute pancreatitis (ICD-10 - Z87.19) Hospitalized 01/19-01/25 d/t acute pancreatitis, blood infection, gallstones, intrahepatic bile duct stones, and renal stones. Was seen by general surgeon at the hospital and no surgery was recommended. Member was treated conservatively w/ IVF and IV abx. She was discharged w/ oral abx, which she completed course yesterday. Per memebr she has passed renal stone, but gallstones, intrahepatic bile duct stones still present. No red flag s/s currently present. Saw PCP 01/27 and has GI f/u next month. Rec increas fluid intake, avoid foods high in uric acid, reviewed red flag s/s. 02/04/2025 Gallstones (ICD-10 - K80.20) Due to member's symptom and increased pain, member agreed to be seen at local ED to rule out biliary obstruction and acute pancreatitis. Educated extensively on cardinal signs of worsening condition. Patient advised to contact our 24/7 clinical line with any new or worsening symptoms. Educated patient on concerning symptoms and when to call 911 versus nursing line. Red flag events include chest pain, shortness of breath, severe pain, lethargy, and/or weakness/facial drooping/slurred speech. Member verbalized understanding of treatment plan. Availability of 24/7 clinical line reinforced. 02/04/2025 Acute biliary pancreatitis, unspecified complication status (ICD-10 - K85.10) Due to member's symptom and increased pain, member agreed to be seen at local ED to rule out biliary obstruction and acute pancreatitis. Educated extensively on cardinal signs of worsening condition. Patient advised to contact our 24/7 clinical line with any new or worsening symptoms. Educated patient on concerning symptoms and when to call 911 versus nursing line. Red flag events include chest pain, shortness of breath, severe pain, lethargy, and/or weakness/facial drooping/slurred speech. Member verbalized understanding of treatment plan. Availability of 24/7 clinical line reinforced. 02/01/2025 Essential hypertension (ICD-10 - I10) Patient condition is stable. Member reports stable BP readings, checks daily. Reports last night's blood pressure was a bit elevated but usually her blood pressure if lower. Advised member to avoid salty foods and caffeine in daily diet and continue to monitor blood pressure daily. Patient will continue current medications as listed above in verified medication list and continue care with prescribing provider Member prognosis related to the multiple diagnoses is good. 02/01/2025 Hyperlipidemia, unspecified hyperlipidemia type (ICD-10 - E78.5) Patient condition is stable. Advised member to avoid fatty/fried foods in daily diet. Patient will continue current medications as listed above in verified medication list and continue care with prescribing provider Member prognosis related to the multiple diagnoses is good. 02/01/2025 Chronic GERD (ICD-10 - K21.9) Patient condition is stable. Recommended to avoid fatty/fried and spicy foods in daily diet. Patient will continue current medications as listed above in verified medication list and continue care with prescribing provider Member prognosis related to the multiple diagnoses is good. 04/06/2025 Type 2 diabetes mellitus with diabetic polyneuropathy (ICD-10 - E11.42) Stable. C/w medication regimen. F/u with PCP. Encouraged to continue with BG checks daily, low carb diet - ADA diet, member encouraged to adhere to routine f/us with the specialist physician and possibly podiatry. Continue with TID blood glucose checks. 01/30/2025 Intrahepatic bile duct stones (ICD-10 - K80.50) Hospitalized 01/19-01/25 d/t acute pancreatitis, blood infection, gallstones, intrahepatic bile duct stones, and renal stones. Was seen by general surgeon at the hospital and no surgery was recommended. Member was treated conservatively w/ IVF and IV abx. She was discharged w/ oral abx, which she completed course yesterday. Per memebr she has passed renal stone, but gallstones, intrahepatic bile duct stones still present. No red flag s/s currently present. Saw PCP 01/27 and has GI f/u next month. Rec increas fluid intake, avoid foods high in uric acid, reviewed red flag s/s. 01/30/2025 Renal stones (ICD-10 - N20.0) Hospitalized 01/19-01/25 d/t acute pancreatitis, blood infection, gallstones, intrahepatic bile duct stones, and renal stones. Was seen by general surgeon at the hospital and no surgery was recommended. Member was treated conservatively w/ IVF and IV abx. She was discharged w/ oral abx, which she completed course yesterday. Per memebr she has passed renal stone, but gallstones, intrahepatic bile duct stones still present. No red flag s/s currently present. Saw PCP 01/27 and has GI f/u next month. Rec increas fluid intake, avoid foods high in uric acid, reviewed red flag s/s. 02/01/2025 OAB (overactive bladder) (ICD-10 - N32.81) Patient condition is stable on current regimen. Patient will continue current medications as listed above in verified medication list and continue care with prescribing provider Member prognosis related to the multiple diagnoses is good. 02/01/2025 Chronic idiopathic constipation (ICD-10 - K59.04) Patient condition is stable. Advised member to increase fiber and water intake daily to promote motility. Patient will continue current medications as listed above in verified medication list and continue care with prescribing provider Member prognosis related to the multiple diagnoses is good. 01/30/2025 Myopathic gait (ICD-10 - R26.89) Fall risk precautions reviewed: Including wearing closed toe shoes with supportive board member, removing rugs from walkways in home, turning lights on at night when waking to use bathroom, use of assistive devices. DME equipment ordered 02/01/2025 HSV (herpes simplex virus) infection (ICD-10 - B00.9) Patient condition is stable. Denies any recent outbreaks in HSV. Patient will continue current medications as listed above in verified medication list and continue care with prescribing provider Member prognosis related to the multiple diagnoses is good. 02/01/2025 RLS (restless legs syndrome) (ICD-10 - G25.81) Patient condition is stable. Patient will continue current medications as listed above in verified medication list and continue care with prescribing provider Member prognosis related to the multiple diagnoses is good. 02/01/2025 Polyp of colon, unspecified part of colon, unspecified type (ICD-10 - K63.5) Patient condition is stable. Member has gastroenterologi appoinement scheduled in March 2025. Patient will continue current medications as listed above in verified medication list and continue care with prescribing provider Member prognosis related to the multiple diagnoses is good. 02/01/2025 Primary osteoarthritis involving multiple joints (ICD-10 - M15.0) Patient condition is stable. Recommended alternating warm and cool compresses to affected joints as needed for pain. Patient will continue current medications as listed above in verified medication list and continue care with prescribing provider Member prognosis related to the multiple diagnoses is good. 02/01/2025 Bilateral lower extremity edema (ICD-10 - R60.0) Patient condition is stable and mild. Member reports chronic mild edema to both lower extremities, non-pitting. Advised member to elevated both legs often and to wear compression stockings to promote circulation and prevent edema. Patient will continue current medications as listed above in verified medication list and continue care with prescribing provider Member prognosis related to the multiple diagnoses is good. 02/01/2025 Type 2 diabetes mellitus with diabetic polyneuropathy (ICD-10 - E11.42) Patient condition is stable. Member reports stable sugar readings daily. Member checks her sugar multiple times per day due to occassional low sugar readings. Unknown last A1C level, but reports PCP told her result was good. Advised member on symptoms of hypoglycemia and advised member to have orange juice or candy available in case sugar lower than 60. Patient will continue current medications as listed above in verified medication list and continue care with prescribing provider Member prognosis related to the multiple diagnoses is good. 02/01/2025 Recurrent major depressive disorder, in full remission (ICD-10 - F33.42) Patient condition is stable. Member denies symptoms of depression for more than two months. Denies suicidal thoughts or plans. Patient will continue current medications as listed above in verified medication list and continue care with prescribing provider Member prognosis related to the multiple diagnoses is good. 02/01/2025 Anxiety disorder, unspecified type (ICD-10 - F41.9) Patient condition is stable. Patient will continue current medications as listed above in verified medication list and continue care with prescribing provider Member prognosis related to the multiple diagnoses is good. 02/01/2025 Nephrolithiasis (ICD-10 - N20.0) Patient condition is stable. Member was admitted at the beginning of January 2025 due to septicemia and was found to have Kidney stones and Gallbladder stones. Member was treated with IV antibiotics and sent home with oral antibiotics (already completed). Member reports feeling better and recovering well. Member completed visit with PCP on 01/27/25 after discharge. Patient will continue current medications as listed above in verified medication list and continue care with prescribing provider Member prognosis related to the multiple diagnoses is good. 02/01/2025 Biliary calculus of other site without obstruction (ICD-10 - K80.80) Patient condition is stable. Member was admitted at the beginning of January 2025 due to septicemia and was found to have Kidney stones and Gallbladder stones. Member was treated with IV antibiotics and sent home with oral antibiotics (already completed). Member reports feeling better and recovering well. Member completed visit with PCP on 01/27/25 after discharge. Patient will continue current medications as listed above in verified medication list and continue care with prescribing provider Member prognosis related to the multiple diagnoses is good. 02/01/2025 Unsteady gait (ICD-10 - R26.81) Member prognos is related to the multiple diagnoses is good. 09/26/2024 Member co ntacted for CCM Monthly. Health Internet Marketing Intern confirmed member name and birthdate. CCM program touchpoint briefly described. Member has no changes in condition. Member stated that she was bleeding from her colon, but is doing better now. Member scheduled an appointment with her colon doctor for April. Member had no acute events. Discussion on healthy diet and exercise. CCM next program touchpoint briefly described. Member voiced understanding for the call and the support. 13/04 line reinforced. 11/02/2024 Member contacted for CCM Monthly. 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 CCM program touchpoint briefly described. Member has no changes in condition or concerns to report. Member had no acute events. Confirmed PCP and pharmacy with member. Medication: The member reported taking medication daily as prescribed. DME:The member stated that she ambulates with rollator at all times. Blood glucose: The member stated that she monitors blood glucose 2 times a day every day, and she does not have any hypo-hyper glucemia symptoms. The member stated that she goes to the adult center 5 days per week. Blood pressure and weight is checked at the adult center and has been under control. Nutrition: The member stated that she cooks her own meals and even packs her lunch when she attends to the adult center. The member reported that she avoids canned foods, salty foods and red meat. Member stated that she eats beans, chicken, fish and non-starchy vegetables. Discussion on nutrition and fall prevention. [facility] [place] next program touchpoint briefly described.Member voiced understanding for the call and the support. 13/04 line reinforced. 11/29/2024 Member wa s contacted for a health high school sports coach visit. Reviewed the purpose of the call. Confirmed member by name and . The clinical program and what to expect next were reviewed and verbalization of understanding was obtained. Member was pleasant and polite. Member was in [place] at the time of the call. Member shared her health is good. Her BP always comes out high at appointments. Health high school sports coach attempted to ask about this, the member redirected to concerns about her blood glucose strips. She had a test that indicated that her heart was beating too slow but a follow-up test confirmed everything was within normal limits. Member shared she ran out of blood glucose strips and she had to buy them herself. She shared she receives 50 strips in a box and she has to check her blood glucose 3x daily since she is asymptomatic if her blood glucose is out of normal limits. Health high school sports coach shared the [facility] member services line with the member to inquire about coverage for more strips. The member would like someone to call and ask if there is a refill for her blood glucose strips. Pharmacy confirmed. The member has a Tixerse Blood Glucose Monitoring System. Action created. Discussion on diabetes management. The member's rollator broke and she left it at her senior center. She has had it for more than 5 years. She now weighs around 155 lbs. She would like a new rollator. Action created. - Health high school sports coach explained care coordination services. The member would like the clinical support line sent to Criss, her niece. Health high school sports coach summarized the call. She asked if the rollator would be delivered to her home. Confirmed address, added apartment information. Details below. Clinical support line reinforced for any and all acute needs. 12/28/2024 -Member contacted for RN Care Plan Review. Confirmed member by name, and current state. CCM program and what to expect next were reviewed and verbalization of understanding obtained. Denies recent ER visits, hospitalizations or falls. -Member has a history of HTN and DM. Spoke with member who reports she eats a cardiac/diabetic diet, has a good appetite and daily bowel movements by taking Senna Plus daily. RN encouraged member to stay well hydrated to prevent further constipation, voiced understanding. Member reports that she has a blood pressure cuff at home, but does not use it due to it being an arm cuff rather than a wrist cuff. Member states that she requested specifically a wrist cough be sent to her as that is the only kind she is comfortable using. Member states that she checks her blood pressure every day at the center. Member reports that at her last appointment her blood pressure was a little high, but states that she was stuck in an elevator for longer than she would have liked and had anxiety which caused her blood pressure to go up. RN explained to member that the clinical team will look into why she was sent an arm cuff instead of a wrist cuff. Member has a glucometer at home and checks her glucose levels daily. Member states that her fasting blood sugar this morning was 98. Member reports that normally her fasting blood sugar ranges from 80 to 117. Member checks her blood glucose levels three times a day as she says she is rarely symptomatic, even if her blood sugar is low and feels better if she check her glucose periodically throughout the day. Member states that she exercises when she goes to the center daily. Member likes to walk, do aerobic classes and use the workout equipment. -The member is overall stable. Taking medications as prescribed. RN completed the full med rec with member and updated the list. The member last saw her PCP in September 2024 and is on a waitlist to see them again as they have no availability until August 2025. -Member will continue eating a cardiac/diabetic diet, checking her blood glucose daily and will start checking her blood pressure at home once she receives a wrist cuff. Educated member on fall prevention and safe DME use. RN Reinforced 24 hour nurse line and encouraged to call if they have any questions or concerns. Voiced understanding and thanked the RN for the call. 06/14/2025 CALOS alberts quentin a careplan update but the member's number is disconnected [phone]. Attempted WAREHOUSE INSULATION WORKER number [phone] and spoke to Mary who stated has been in a rehab center named [facility] for the last 2 months. Mary provided a telephone number for the member's sister, Nicky or [phone]. Event documented in Dash. Plan Of Treatment Pending Test Test Name Order Date Supplies-BP Monitor (non-RPM) 08/02/2024 DME-Shower chair with back 01/30/2025 DME-Shower chair with back 02/01/2025 DME-COMMODE 02/01/2025 DME-COMMODE 01/30/2025 DME-ROLLATOR 12/06/2024 Insurance Providers Payer Name Payer Address Payer Phone Subscriber Number Group Number Insured Name Patient Relationship to Insured Coverage Start Date Coverage End Date [facility] [address] [address] [place] [phone] [id number] AlfonsoBessie Rangel Self - patient is the insured Medicaid of [facility] [address] [place] [phone] [id number] Bessie Bhatia Self - patient is the insured Medicare of [facility] [address] [place] [phone] [id number] Alfonso AnnelieseBessie junior Self - patient is the insured Medical (General) History Medical History History ICD Code Essential hypertension I10 Hyperlipidemia, unspecified hyperlipidem ia type E78.5 Chronic GERD K21.9 OAB (overactive bladder) N32.81 Chronic idiopathic constipation K59.04 RLS (restless legs syndrome) G25.81 HSV (herpes simplex virus) infection B00 .9 Obesity, Class I, BMI 30-34.9 E66.811 Polyp of colon, unspecified part of colo n, unspecified type K63.5 Primary osteoarthritis involving multipl e joints M15.0 Status post right cataract extraction Z9 8.41 Status post left cataract extraction Z98 .42 Bilateral lower extremity edema R60.0 Myopathic gait R26.89 Type 2 diabetes mellitus with diabetic p olyneuropathy E11.42 half-way (current) use of insulin Z79.4 Recurrent major depressive disorder, in full remission F33.42 Anxiety disorder, unspecified type F41.9 Nephrolithiasis N20.0 Biliary calculus of other site without o bstruction K80.80 Pneumonitis J98.4 Right-sided headache R51.9 Surgical History Surgery Date(Month/Year) x2 bladder lift surgery Hospitalization History Reason Date(Month/Year) Anxiety disorder, unspecifie d Essential (primary) hypertensionHeadache, unspecifiedShortness of breathPleurodyniaObesity, class 1Other giant cell arteritisAcute bronchitis, unspecifiedOther disorders of lungPneumonia, unspecified organism 03/2025 Acute pancreatitis without n ecrosis or infection, Other specified abnormal findings of blood chemistry, Septicemia, Nephrolithiasis and Cholelithiasis 01/19/25
--- NOTE | 2025-08-12 16:02 | ED.WEAKNESS ---
HPI - Weakness General Chief complaint: Weakness Stated complaint: weakness, dizzy, confusion Time Seen by Provider: 08/12/25 16:01 Source: patient, EMS, old records reviewed and bilingual interpreter Mode of arrival: EMS Limitations: no limitations History of Present Illness ED Provider: DR. Miller HPI Narrative: 65-year-old Bahraini speaking female with significant PMHx schizophrenia, HTN, anxiety, depression, hyperlipidemia, insulin-dependent diabetes, GERD, HSV 2, obesity, patient normally lives home with a BAKERY ASSISTANT who is new to the patient, patient was brought in for evaluation of increased weakness in feeling dizzy for the past 3 weeks, patient herself does not know why she is in the hospital and she was supposed to go to [facility] not to [facility] but EMS brought her here, patient otherwise declined headache, weakness, numbness, CP, SOB, or abdominal pain. No bleeding, no fever, no chills, cough. Patient was able to ambulate in the emergency room using a cane unsteady gait. Related Data Previous Rx's ?Medication ?Instructions ?Recorded blood-glucose meter (Prodigy #1 ea 02/08/24 Autocode Meter kit) lancets 28 gauge (Prodigy Lancets) #100 ea 02/08/24 walker #1 ea 07/26/24 blood-glucose meter (FreeStyle #1 ea 11/29/24 Lite Meter kit) blood sugar diagnostic (FreeStyle #100 ea 12/20/24 Test strips) adult diapers pull-ups #240 ea 03/27/25 divalproex 500 mg tablet,extended 1,000 mg (2 x 500 mg) PO BEDTIME 05/02/25 release 24 hr 90 days #180 tabs furosemide 40 mg tablet 40 mg PO DAILY 30 days #90 tabs 05/02/25 lisinopril 20 mg tablet 40 mg (2 x 20 mg) PO DAILY 90 days 05/02/25 #180 tabs lorazepam 0.5 mg tablet 0.5 mg PO TID 30 days #90 tabs 05/02/25 metoprolol succinate 25 mg 25 mg PO DAILY 30 days #30 tabs 05/02/25 tablet,extended release 24 hr polyethylene glycol 3350 17 gram 17 g PO BID 30 days #60 ea 05/02/25 oral powder packet ropinirole 0.25 mg tablet 1 mg (4 x 0.25 mg) PO BEDTIME 30 05/02/25 days #120 tabs tolterodine 2 mg capsule,extended 2 mg PO DAILY 90 days #90 caps 05/02/25 release 24 hr trazodone 50 mg tablet 50 mg PO BEDTIME PRN Insomnia 30 05/02/25 days #30 tabs pen needle, diabetic 32 gauge x #100 ea 05/15/25 5/32 (1st Tier Unifine Pentips) atorvastatin 10 mg tablet 10 mg PO BEDTIME 30 days #30 tabs 05/23/25 sennosides 8.6 mg-docusate sodium 2 tab PO BEDTIME #60 tabs 05/23/25 50 mg tablet (Stimulant Laxative Plus) acyclovir 400 mg tablet 400 mg PO TID 30 days #90 tabs 06/12/25 dulaglutide 1.5 mg/0.5 mL 1.5 mg (0.5 mL) subcut FR 30 days 06/12/25 subcutaneous pen injector #2 mL (Trulicity) insulin glargine 100 unit/mL 52 unit (0.52 mL) subcut DAILY 30 06/12/25 subcutaneous solution (Lantus days #15.6 mL U-100 Insulin) omeprazole 20 mg capsule,delayed 20 mg PO DAILY@0630 30 days #30 06/12/25 release caps risperidone 1 mg tablet 1 mg PO BID 30 days #60 tabs 06/12/25 Allergies Allergy/AdvReac Type Severity Reaction Status Date / Time Penicillins Allergy Intermediate rash/swelli Verified 08/12/25 15:23 ng shellfish derived Allergy Intermediate Swelling, Verified 08/12/25 15:23 Hives Review of Systems Review of Systems: all other systems are reviewed and are negative Constitutional: Reports as per HPI and Reports no additional constitutional complaints Eyes: Reports as per HPI and Reports no additional eye complaints Reports system reviewed and no additional complaints, except as documented Cardiovascular: Reports as per HPI and Reports no additional cardiovascular complaints Respiratory: Reports as per HPI and Reports no additional respiratory complaints Gastrointestinal: Reports as per HPI and Reports no additional gastrointestinal complaints Genitourinary: Reports no additional female genitourinary complaints Musculoskeletal: Reports no additional musculoskeletal complaints Skin/Breast: Reports system reviewed and no additional complaints, except as docu Psychiatric: Reports no additional psychiatric complaints Endocrine: Reports no additional endocrine complaints Hematologic/Lymphatic: Reports no additional hematologic/lymphatic complaints Allergic/Immunologic: Reports no additional allergic/immunologic complaints Reports system reviewed and no additional complaints, except as documented and Reports Abnormal speech present [facility] Past Medical History Medical History Class 1 obesity Anxiety Atypical pneumonia Pneumonitis Nausea Abdominal pain Osteoporosis Hypertension History of blood clot in brain Hypercholesteremia HSV-2 (herpes simplex virus 2) infection Arthritis Rheumatic fever Schizophrenia GERD (gastroesophageal reflux disease) Depression HTN (hypertension) Hyperlipemia Diabetes Surgical History Hx of colonoscopy History of tubal ligation History of cystostomy History of 2 sections Family History Family History Sister Age: 64 Osteoarthritis Mother Cancer of lymphatic and hematopoietic tissue, Onset Age: 83 COVID-19 Father FH: heart attack Brother FH: heart attack Other Diabetes HTN (hypertension) Mental health disorder Social History Social History Household Members: None Household Members Other:: sister Housing: Apartment Do you presently have visiting nurse or other home services: Yes (BAKERY ASSISTANT) Alcohol intake: never Patient Tobacco Use Status: Never used Tobacco e-Cigarette/Vaping Use: Never Used Second Hand Smoke Exposure: No Advance Directives: Yes Advance Directives on File: Yes Advance Directives Date on File: 02/08/24 service: No Current occupational status: disabled Sexual orientation: Straight/Heterosexual Gender identity: Female Cognitive needs: Yes (walker) Hearing needs: No Vision needs: Yes (glasses) Physical Exam Vital Signs: Vital Signs: Last Vital Signs Temp 98.6 F 08/12/25 16:41 Pulse 90 08/12/25 16:41 Resp 12 08/12/25 16:41 BP 163/80 H 08/12/25 16:41 Pulse Ox 98 08/12/25 16:41 O2 Del Method Room Air 08/12/25 16:41 BMI result Body Mass Index 31.1 Vital signs have been reviewed and appear to be correct. Blood pressure elevated. Heart rate normal. Respiratory rate normal. Temperature normal. Oxygen saturation normal. Appearance: Alert. Oriented X3. No acute distress. Head: Normal external exam. Normocephalic. Atraumatic. No Mayer signs noted. No raccoon eyes noted Eyes: PERRLA. EOMI. Conjunctiva and sclera normal. Eyelids normal. ENT: TM's Normal. Pharynx normal. Uvula midline. Moist mucous membranes. No trismus noted. No drooling noted. No muffled voice noted. Neck: Normal inspection. Neck supple. FROM. No adenopathy. Thyroid Normal. No meningeal signs. No neck mass noted. CVS: Normal heart rate and rhythm. Heart sound normal. No murmurs noted. Pulses normal throughout. Respiratory: No respiratory distress. Painless inspiration. Breath sounds normal. No wheezes/rales/rhonchi noted. Chest nontender. No accessory muscle usage noted or decreased air movement noted. Abdomen: Soft and nontender. Bowel sounds normal in all 4 quadrants. No distention noted. No organomegaly noted. No visible injury noted. Back: No CVA tenderness. Full range of motion noted. Skin: Skin warm and dry. Normal skin color. Normal skin turgor. No rashes/lesions/lacerations noted. Extremities: No lower extremity edema. Extremities exhibit normal range of motion. Extremities nontender. Neuro: Oriented X 3. Cranial nerve exam: II-XII are grossly intact No motor deficit. No sensory deficit. Reflexes normal. NIH Stroke Scale Time: 16:27 Level of Consciousness: Alert Level of Consciousness Questions: Answers both questions correctly Level of Consciousness Commands: Performs both tasks correctly Best Gaze: Normal Visual: No visual loss Facial Palsy: Normal Motor Arm (Right): No drift Motor Arm (Left): No drift Motor Leg (Right): No drift Motor Leg (Left): No drift Limb Ataxia: Absent Sensory: Normal Best Language: No aphasia Dysarthia: Normal Extinction and Inattention: No abnormality Score: 0 Course Reevaluation(s) Reevaluation #1: 65-year-old female came in for evaluation after having dizziness that is going for long time noted today by her new BAKERY ASSISTANT who was concern about it and sent the patient for further evaluation patient wanted to go to [facility] her regular hospital but was diverted to [facility] by ambulance, patient in the emergency department has a normal neuro exam, he to ambulate in the emergency department with steady gait, labs done today is at her baseline with no acute abnormality. NIH score is 0 with normal neuro exam. patient will be safe to be discharged home and follow-up with her PCP Time: 19:00 Medical Decision Making Differential Diagnosis Differential Diagnoses: The differential diagnosis associated with the presentation includes ( chronic peripheral vertigo, central vertigo, electrolyte derangement, dehydration, severe anemia, UTI, dehydration, hypovolemia.) Admission/Observation Consideration of admission/observation: Escalation of care including admission/observation considered Lab Data MDM Lab Attestation statement: I reviewed the patient's lab results. 08/12/25 16:06 08/12/25 16:06 Labs: Lab Results 08/12/25 08/12/25 08/12/25 Range/Units 14:47 16:01 16:06 WBC 8.5 (4.8-10.8) X10*3/uL RBC 5.16 (4.20-5.50) X10*6/uL Hgb 14.5 (12.0-16.0) g/dl Hct 45.3 D (37.0-47.0) % MCV 87.8 (80.0-98.0) fL MCH 28.1 (27.0-33.0) pg MCHC 32.0 (31.0-35.0) g/dl RDW 12.8 (11.0-16.0) % Plt Count 307 (160-400) X10*3/uL MPV 10.2 (9.4-12.3) fL Immature Gran % (Auto) 0.2 (0.0-0.4) % Neut % (Auto) 52.5 (45-73) % Lymph % (Auto) 38.9 (20-40) % Davison % (Auto) 7.2 (2-11) % Eos % (Auto) 0.8 (0-4) % Baso % (Auto) 0.4 (0-2) % Lymph # (Auto) 3.3 (1.2-4.9) X10*3/uL Davison # (Auto) 0.6 (0.1-1.2) X10*3/uL Eos # (Auto) 0.1 (0.0-0.4) X10*3/uL Baso # (Auto) 0.0 (0.0-0.2) X10*3/uL Abs Immat Gran (auto) 0.02 (0.00-0.03) X10*3/uL Absolute Neuts (auto) 4.4 (2.0-8.3) x10*3/uL Absolute Nucleated RBC 0.000 (0.0-0.012) X10*3/uL Nucleated RBC % (auto) 0.0 (0.0-0.2) /100WBC Sodium 143 (135-145) mmol/L Potassium 3.8 (3.3-5.1) mmol/L Chloride 101 (96-108) mmol/L Carbon Dioxide 31 H (22-29) mmol/L Anion Gap 15 (12-20) BUN 17 H (9-16) mg/dL Creatinine 0.81 (0.5-1.4) mg/dL Estim Creat Clear Calc 70.8 Estimated GFR > 60 POC Glucose 112 (60-115) mg/dL Random Glucose 144 H (60-115) mg/dL Calcium 9.8 D (8.4-10.2) mg/dL Total Bilirubin 0.3 (0.0-1.0) mg/dL AST 16 (5-31) U/L ALT 8 (0-31) U/L Alkaline Phosphatase 88 (39-117) U/L Ammonia 17 (13-55) umol/L Total Protein 6.9 (6.5-8.0) g/dL Albumin 4.3 (3.5-5.0) g/dL Urine Color Yellow Urine Appearance Clear Urine pH 7.0 (5.0-9.0) Ur Specific Granton 1.010 (1.005-1.025) Urine Protein Negative (Neg-Trace) mg/dL Urine Glucose (UA) Negative (Negative) mg/dL Urine Ketones Negative (Negative) mg/dL Urine Blood Negative (Negative) Urine Nitrite Negative (Negative) Ur Leukocyte Esterase Trace H (Negative) Urine RBC 0-2 (0-2) /HPF Urine WBC 0-5 (0-5) /HPF Ur Squamous Epith Cells 0-2 (0-2) /HPF Urine Bacteria None Seen (None Seen) Hyaline Casts 0-2 (0-2) /LPF Ethyl Alcohol mg/dL COVID-19 (DEVEN) Negative (Negative) COVID-19 Clin Com See Note Influenza Type A (LASHAWN) Negative (Negative) Influenza Type B (LASHAWN) Negative (Negative) Influenza A & B Note See Note 08/12/25 Range/Units 16:07 WBC (4.8-10.8) X10*3/uL RBC (4.20-5.50) X10*6/uL Hgb (12.0-16.0) g/dl Hct (37.0-47.0) % MCV (80.0-98.0) fL MCH (27.0-33.0) pg MCHC (31.0-35.0) g/dl RDW (11.0-16.0) % Plt Count (160-400) X10*3/uL MPV (9.4-12.3) fL Immature Gran % (Auto) (0.0-0.4) % Neut % (Auto) (45-73) % Lymph % (Auto) (20-40) % Davison % (Auto) (2-11) % Eos % (Auto) (0-4) % Baso % (Auto) (0-2) % Lymph # (Auto) (1.2-4.9) X10*3/uL Davison # (Auto) (0.1-1.2) X10*3/uL Eos # (Auto) (0.0-0.4) X10*3/uL Baso # (Auto) (0.0-0.2) X10*3/uL Abs Immat Gran (auto) (0.00-0.03) X10*3/uL Absolute Neuts (auto) (2.0-8.3) x10*3/uL Absolute Nucleated RBC (0.0-0.012) X10*3/uL Nucleated RBC % (auto) (0.0-0.2) /100WBC Sodium (135-145) mmol/L Potassium (3.3-5.1) mmol/L Chloride (96-108) mmol/L Carbon Dioxide (22-29) mmol/L Anion Gap (12-20) BUN (9-16) mg/dL Creatinine (0.5-1.4) mg/dL Estim Creat Clear Calc Estimated GFR POC Glucose (60-115) mg/dL Random Glucose (60-115) mg/dL Calcium (8.4-10.2) mg/dL Total Bilirubin (0.0-1.0) mg/dL AST (5-31) U/L ALT (0-31) U/L Alkaline Phosphatase (39-117) U/L Ammonia (13-55) umol/L Total Protein (6.5-8.0) g/dL Albumin (3.5-5.0) g/dL Urine Color Urine Appearance Urine pH (5.0-9.0) Ur Specific Granton (1.005-1.025) Urine Protein (Neg-Trace) mg/dL Urine Glucose (UA) (Negative) mg/dL Urine Ketones (Negative) mg/dL Urine Blood (Negative) Urine Nitrite (Negative) Ur Leukocyte Esterase (Negative) Urine RBC (0-2) /HPF Urine WBC (0-5) /HPF Ur Squamous Epith Cells (0-2) /HPF Urine Bacteria (None Seen) Hyaline Casts (0-2) /LPF Ethyl Alcohol < 10 mg/dL COVID-19 (DEVEN) (Negative) COVID-19 Clin Com Influenza Type A (LASHAWN) (Negative) Influenza Type B (LASHAWN) (Negative) Influenza A & B Note Independent Interpretation I performed an independent interpretation of an: Plain X-Ray ( Chest: No acute findings.) and CT Scan ( Head: No acute intracranial pathology.) Radiology Impression Discussion of test interpretation with radiology: I have reviewed the radiologist's reading. Discharge Plan Discharge Clinical Impression: Benign paroxysmal positional vertigo Patient Disposition: Home, Self-Care Instructions: Benign Paroxysmal Positional Vertigo (ED) Prescriptions: No Action (DME) walker Misc See Rx Instructions .Route Qty: 1 0RF Rx Instructions: As directed (DME) blood-glucose meter [FreeStyle Lite Meter] Kit See Rx Instructions .Route Qty: 1 0RF Rx Instructions: As directed (DME) FreeStyle Test Strip See Rx Instructions .Route Qty: 100 6RF Rx Instructions: As directed three times a day (DME) adult diapers pull-ups XL See Rx Instructions .Route .MEDSUPPLY Qty: 240 11RF Rx Instructions: As directed (DME) pen needle, diabetic [1st Tier Unifine Pentips] 32 gauge x 5/32 needle See Rx Instructions .Route Qty: 100 0RF Rx Instructions: Use 1 pen needle three times a day sennosides-docusate sodium [Stimulant Laxative Plus] 8.6-50 mg tablet 2 tab PO BEDTIME Qty: 60 0RF atorvastatin 10 mg tablet 10 mg PO BEDTIME 30 Days Qty: 30 0RF acyclovir 400 mg tablet 400 mg PO TID 30 Days Qty: 90 0RF Trulicity 1.5 mg/0.5 mL pen injector 1.5 mg subcut FR 30 Days Qty: 2 0RF insulin glargine [Lantus U-100 Insulin] 100 unit/mL solution 52 unit subcut DAILY 30 Days Qty: 15.6 0RF omeprazole 20 mg capsule,delayed release(DR/EC) 20 mg PO DAILY@0630 30 Days Qty: 30 0RF risperidone 1 mg tablet 1 mg PO BID 30 Days Qty: 60 0RF trazodone 50 mg Tablet 50 mg PO BEDTIME PRN (Reason: Insomnia) 30 Days Qty: 30 0RF polyethylene glycol 3350 17 gram Powder In Packet 17 g PO BID 30 Days Qty: 60 0RF tolterodine 2 mg capsule,extended release 24hr 2 mg PO DAILY 90 Days Qty: 90 1RF furosemide 40 mg tablet 40 mg PO DAILY 30 Days Qty: 90 3RF lisinopril 20 mg tablet 40 mg PO DAILY 90 Days Qty: 180 0RF ropinirole 0.25 mg tablet 1 mg PO BEDTIME 30 Days Qty: 120 0RF divalproex 500 mg tablet extended release 24 hr 1,000 mg PO BEDTIME 90 Days Qty: 180 0RF metoprolol succinate 25 mg tablet extended release 24 hr 25 mg PO DAILY 30 Days Qty: 30 5RF Rx Instructions: Stop amlodipine Start metoprolol lorazepam 0.5 mg tablet 0.5 mg PO TID 30 Days Qty: 90 0RF (DME) blood-glucose meter [Prodigy Autocode Meter] Kit See Rx Instructions .Route Qty: 1 0RF Rx Instructions: As directed (DME) lancets [Prodigy Lancets] 28 gauge misc See Rx Instructions .Route Qty: 100 11RF Rx Instructions: Use 1 lancet four times a day Print Language: Bahraini
[2025-08-12 16:13] LABS: MANUAL DIFF FLAG NO
[2025-08-12 16:15] LABS: Hematocrit 45.3 % (37.0-47.0); Hemoglobin 14.5 g/dl (12.0-16.0); Imm Gran Abs Auto 0.02 X10*3/uL (0.00-0.03); Imm Gran Pct Auto 0.2 % (0.0-0.4); Lymphocytes Absolute Auto 3.3 X10*3/uL (1.2-4.9); Mean Corpuscular HGB Conc 32.0 g/dl (31.0-35.0); Mean Corpuscular Hemoglobin 28.1 pg (27.0-33.0); Mean Corpuscular Volume 87.8 fL (80.0-98.0); NRBC Abs Auto 0.000 X10*3/uL (0.0-0.012); NRBC Pct Auto 0.0 /100WBC (0.0-0.2); Platelet Count 307 X10*3/uL (160-400); Red Blood Count 5.16 X10*6/uL (4.20-5.50); White Blood Count 8.5 X10*3/uL (4.8-10.8)
[2025-08-12 16:18] LABS: Appearance Urine Clear; Glucose Urine UA Negative (Negative); PH 7.0 (5.0-9.0); Specific Gravity - Urine 1.010 (1.005-1.025); UMIC TRIGGER UACC YES
[2025-08-12 16:23] LABS: Ammonia 17 umol/L (13-55)
[2025-08-12 16:31] LABS: Alanine Aminotransferase 8 U/L (0-31); Albumin Level 4.3 g/dL (3.5-5.0); Alkaline Phosphatase 88 U/L (39-117); Anion Gap 15 (12-20); Aspartate Amino Transferase 16 U/L (5-31); Blood Urea Nitrogen 17 mg/dL (9-16); Calcium 9.8 mg/dL (8.4-10.2); Carbon Dioxide 31 mmol/L (22-29); Chloride 101 mmol/L (96-108); Creatinine Clr Calc Pharmacy 70.8; Estimated Glomerular Filt Rate > 60; Potassium 3.8 mmol/L (3.3-5.1); Sodium 143 mmol/L (135-145); Total Protein 6.9 g/dL (6.5-8.0)
[2025-08-12 16:41] VITALS: BP 163/80; PULSE 90; RESP 12; TEMP 37; O2SAT 98
--- NOTE | 2025-08-12 16:45 | PC.NURSE ---
patient up to commode, one assist to commode. previous documentation shows patient has ambulated with walker
[2025-08-12 17:43] LABS: COVID-19 Test Negative (Negative); IDNOW Serial# 16C4AD1C
[2025-08-12 17:44] LABS: IDNOW Serial# 152EDE1D; Influenza B2 Negative (Negative)
[2025-08-12 20:00] VITALS: BP 165/74; PULSE 79; RESP 14; TEMP 36.8; O2SAT 98
== END 2025-08-12 20:09 | disposition home or self-care (01) ==
PROVIDERS: Emergency Provider Emergency Medicine
DX: H81.13 Benign paroxysmal vertigo, bilateral (principal); R94.31 Abnormal electrocardiogram [ECG] [EKG]; Z51.81 Encounter for therapeutic drug level monitoring; Z79.899 Other long term (current) drug therapy; Z11.52 Encounter for screening for COVID-19
CPT/HCPCS: 36415; 70450; 71045; 80053; 80307; 81001; 82140; 82947; 85025; 87502; 87635; 93005; 99283; 99285

== ENCOUNTER → 2025-08-12 14:47 | Outpatient (BNV) | payer OTHER, SELFPAY | PROVIDERS: Emergency Provider Emergency Medicine; Visit Provider Internal Medicine | DX: R94.31 Abnormal electrocardiogram [ECG] [EKG] (principal); R42 Dizziness and giddiness | CPT/HCPCS: 93010 ==

== ENCOUNTER → 2025-08-12 16:26 | Outpatient (BNV) | payer OTHER, SELFPAY | PROVIDERS: Emergency Provider Emergency Medicine; Visit Provider Radiology Diagnostic Radiology | DX: I67.82 Cerebral ischemia (principal); R53.1 Weakness | CPT/HCPCS: 70450; 71045 ==